=== PATIENT | female | born 1960 | race African-American/Black ===

== ENCOUNTER 2022-04-08 14:48 | Emergency (ER) | payer OTHER ==
--- OUTSIDE RECORDS SUMMARY | 2022-04-08 14:54 | XMS REPORT | Continuity of Care Document ---
:1960 Author Organization [facility] t Address [address] [place] [address] Care Team Providers Name Role Phone Eduardo-Mbayo_A_AH Attending Clinician Unavailable Eduardo-Mbayo_A_AH Admitting Clinician Unavailable Payers Payer Name Policy Type Policy Number Effective Date Expiration Date S [facility] [id number] (MEDICARE 00:00:00 REPLACEMENT HMO) WELLCARE OF ID - [id number] 2019 [facility] (MEDICARE 00:00:00 REPLACEMENT/[employer] GE - HMO) Problems This patient has no known problems. Allergies, Adverse Reactions, Alerts Allergy Allergy Status Severity Reaction(s) Onset Inactive Treating Comm ents Source Name Type Date Date Clinician No Known DA Active [facility]ie 06-11 [place] 00:00: [address] No Known DA Active [facility] Drug 06-02 [place] 00:00: [address] No Known DA Active [facility] Contrast 05-28 [place]ergie 00:00: [address] No Known DA Active [facility] Drug 05-28 [place]ergie 00:00: [address] No Known DA Active [facility] Food 05-28 [place] Allergie 00:00: [address] No Known DA Active [facility] Other 05-28 [place] Allerg[place] 00:00: [address] Medications This patient has no known medications. Procedures This patient has no known procedures. Encounters Start End Encounter Admission Attending Care Care Encounter Source Date/Time Date/Time Type Type Clinicians Facility Department ID 2019-10-23 Inpatient U [facility] MED 9332 [facility]ria 02:27:00 [facility] l 2021-05-20 2021-05-20 Outpatient DMG DMG [id number] [facility] 11:00:00 11:00:00 0626 Medica l Group 2020-01-13 2020-01-13 Outpatient Eduardo-Mbayo VFP [facility] 07:13:00 07:13:00 _A_AH [id number] Family Practic e 2020-01-13 2020-01-13 Outpatient Eduardo-Mbayo VFP P [facility] 07:13:00 07:13:00 _A_AH 36260 Family Practic e 2020-01-13 2020-01-13 Outpatient Eduardo-Mbayo [facility]FP [facility] 07:13:00 07:13:00 _A_AH 56544 Family Practic e Results Test Description Test Time Test Comments Results Result Comments Source GLUCOSE BEDSIDE TESTING 2019-08-03 11:48:00 Test Item Value Reference Range Interpretation Comme nts GLUCOSE BEDSIDE TESTING (test code = GLUBED) 175 MG/DL 60-99 H BASIC METABOLIC [id number] 07:36:00 Test Item Value Reference Range Interpretation Comments SODIUM (test code = 135 MMOL/L 137-145 L NA) POTASSIUM (test code = 4.7 MMOL/L 3.5-5.1 N K) CHLORIDE (test code = 102 MMOL/L 98-107 N CL) CARBON DIOXIDE (test 26 MMOL/L 22-30 N code = CO2) ANION GAP (test code = 12 MMOL/L 14-24 L GAP) GLUCOSE (test code = 188 MG/DL 74-106 H GLU) BLOOD UREA NITROGEN 45 MG/DL 7-17 H (test code = BUN) GLOMERULAR FILTRATION 11 Report ing units: RATE (test code = GFR) ml/mi n/1.73 m2 (Modified MDRD Formula)Referen ce Range: > or = 6 0 ml/min/1.73 m2 CREATININE (test code 4.90 MG/DL 0.52-1.04 H = CREAT) CALCIUM (test code = 8.8 MG/DL 8.4-10.2 N CA) CBC W/AUTO [id number] 07:01:00 Test Item Value Reference Range Interpretation Comments WHITE BLOOD CELL (test code = 9.2 K/MM3 3.8-9.8 N WBC) RED BLOOD CELL (test code = 3.01 M/MM3 3.58-4.97 L RBC) HEMOGLOBIN (test code = HGB) 7.8 G/DL 11.2-14.9 L HEMATOCRIT (test code = HCT) 26.0 % 33.2-43.5 L MEAN CELL VOLUME (test code = 86 fL 80.7-99.1 N MCV) MEAN CELL HGB (test code = MCH) 25.9 pg 27.0-34.1 L MEAN CELL HGB CONCETRATION 30.0 % 32.2-35.7 L (test code = MCHC) RED CELL DISTRIBUTION WIDTH 13.9 % 12.1-15.2 N (test code = RDW) PLATELET COUNT (test code = 265 K/MM3 129-368 N PLT) MEAN PLATELET VOLUME (test code 10.5 fl 7.4-10.4 H = MPV) NEUTROPHIL % (test code = NT%) 64.7 % 43-75 N IMMATURE GRANULOCYTE % (test 0.2 % 0.0-2.0 N code = IG%) LYMPHOCYTE % (test code = LY%) 23.3 % 14-44 N MONOCYTE % (test code = MO%) 10.2 % 4-13 N EOSINOPHIL % (test code = EO%) 1.4 % 0-6 N BASOPHIL % (test code = BA%) 0.2 % 0-2 N NUCLEATED RBC % (test code = 0.0 % 0-1.0 N NRBC%) NEUTROPHIL # (test code = NT#) 5.95 K/mm3 2.0-7.6 N IMMATURE GRANULOCYTE # (test 0.02 x10 3/uL 0-0.03 N code = IG#) LYMPHOCYTE # (test code = LY#) 2.14 K/mm3 1.0-3.8 N MONOCYTE # (test code = MO#) 0.94 K/mm3 0.1-0.8 H EOSINOPHIL # (test code = EO#) 0.13 K/mm3 0.0-0.2 N BASOPHIL # (test code = BA#) 0.02 K/mm3 0.0-0.2 N NUCLEATED RBC # (test code = 0.00 K/mm3 0.0-0.1 N NRBC#) GLUCOSE BEDSIDE [id number] 06:05:00 Test Item Value Reference Range Interpretation Comments GLUCOSE BEDSIDE TESTING (test code 175 MG/DL 60-99 H = GLUBED) GLUCOSE BEDSIDE [id number] 21:34:00 Test Item Value Reference Range Interpretation Comments GLUCOSE BEDSIDE TESTING (test code 274 MG/DL 60-99 H = GLUBED) GLUCOSE BEDSIDE [id number] 16:05:00 Test Item Value Reference Range Interpretation Comments GLUCOSE BEDSIDE TESTING (test code 186 MG/DL 60-99 H = GLUBED) GLUCOSE BEDSIDE [id number] 11:29:00 Test Item Value Reference Range Interpretation Comments GLUCOSE BEDSIDE TESTING (test code 347 MG/DL 60-99 HH = GLUBED) GLUCOSE BEDSIDE [id number] 07:59:00 Test Item Value Reference Range Interpretation Comments GLUCOSE BEDSIDE TESTING (test code 325 MG/DL 60-99 HH = GLUBED) BASIC METABOLIC [id number] 05:42:00 Test Item Value Reference Range Interpretation Comments SODIUM (test code = 133 MMOL/L 137-145 L NA) POTASSIUM (test code = 4.7 MMOL/L 3.5-5.1 N K) CHLORIDE (test code = 101 MMOL/L 98-107 N CL) CARBON DIOXIDE (test 25 MMOL/L 22-30 N code = CO2) ANION GAP (test code = 12 MMOL/L 14-24 L GAP) GLUCOSE (test code = 251 MG/DL 74-106 H GLU) BLOOD UREA NITROGEN 35 MG/DL 7-17 H (test code = BUN) GLOMERULAR FILTRATION 15 Report ing units: RATE (test code = GFR) ml/mi n/1.73 m2 (Modified MDRD Formula)Referen ce Range: > or = 6 0 ml/min/1.73 m2 CREATININE (test code 3.80 MG/DL 0.52-1.04 H = CREAT) CALCIUM (test code = 8.8 MG/DL 8.4-10.2 N CA) CBC W/AUTO [id number] 05:16:00 Test Item Value Reference Range Interpretation Comments WHITE BLOOD CELL (test code = 10.3 K/MM3 3.8-9.8 H WBC) RED BLOOD CELL (test code = 2.99 M/MM3 3.58-4.97 L RBC) HEMOGLOBIN (test code = HGB) 7.6 G/DL 11.2-14.9 L HEMATOCRIT (test code = HCT) 26.0 % 33.2-43.5 L MEAN CELL VOLUME (test code = 87 fL 80.7-99.1 N MCV) MEAN CELL HGB (test code = MCH) 25.4 pg 27.0-34.1 L MEAN CELL HGB CONCETRATION 29.2 % 32.2-35.7 L (test code = MCHC) RED CELL DISTRIBUTION WIDTH 13.6 % 12.1-15.2 N (test code = RDW) PLATELET COUNT (test code = 254 K/MM3 129-368 N PLT) MEAN PLATELET VOLUME (test code 10.7 fl 7.4-10.4 H = MPV) NEUTROPHIL % (test code = NT%) 70.9 % 43-75 N IMMATURE GRANULOCYTE % (test 0.6 % 0.0-2.0 N code = IG%) LYMPHOCYTE % (test code = LY%) 18.4 % 14-44 N MONOCYTE % (test code = MO%) 9.1 % 4-13 N EOSINOPHIL % (test code = EO%) 0.7 % 0-6 N BASOPHIL % (test code = BA%) 0.3 % 0-2 N NUCLEATED RBC % (test code = 0.0 % 0-1.0 N NRBC%) NEUTROPHIL # (test code = NT#) 7.27 K/mm3 2.0-7.6 N IMMATURE GRANULOCYTE # (test 0.06 x10 3/uL 0-0.03 H code = IG#) LYMPHOCYTE # (test code = LY#) 1.89 K/mm3 1.0-3.8 N MONOCYTE # (test code = MO#) 0.93 K/mm3 0.1-0.8 H EOSINOPHIL # (test code = EO#) 0.07 K/mm3 0.0-0.2 N BASOPHIL # (test code = BA#) 0.03 K/mm3 0.0-0.2 N NUCLEATED RBC # (test code = 0.00 K/mm3 0.0-0.1 N NRBC#) GLUCOSE BEDSIDE [id number] 20:28:00 Test Item Value Reference Range Interpretation Comments GLUCOSE BEDSIDE TESTING (test code 253 MG/DL 60-99 H = GLUBED) GLUCOSE BEDSIDE [id number] 16:21:00 Test Item Value Reference Range Interpretation Comments GLUCOSE BEDSIDE TESTING (test code 237 MG/DL 60-99 H = GLUBED) GLUCOSE BEDSIDE [id number] 11:29:00 Test Item Value Reference Range Interpretation Comments GLUCOSE BEDSIDE TESTING (test code 187 MG/DL 60-99 H = GLUBED) GLUCOSE BEDSIDE [id number] 11:03:00 Test Item Value Reference Range Interpretation Comments GLUCOSE BEDSIDE TESTING (test code 202 MG/DL 60-99 H = GLUBED) GLUCOSE BEDSIDE [id number] 20:30:00 Test Item Value Reference Range Interpretation Comments GLUCOSE BEDSIDE TESTING (test code 142 MG/DL 60-99 H = GLUBED) GLUCOSE BEDSIDE [id number] 16:07:00 Test Item Value Reference Range Interpretation Comments GLUCOSE BEDSIDE TESTING (test code 368 MG/DL 60-99 HH = GLUBED) GLUCOSE BEDSIDE [id number] 16:07:00 Test Item Value Reference Range Interpretation Comments GLUCOSE BEDSIDE TESTING (test code 361 MG/DL 60-99 HH = GLUBED) GLUCOSE BEDSIDE [id number] 09:03:00 Test Item Value Reference Range Interpretation Comments GLUCOSE BEDSIDE TESTING (test code 211 MG/DL 60-99 H = GLUBED) GLUCOSE BEDSIDE [id number] 08:30:00 Test Item Value Reference Range Interpretation Comments GLUCOSE BEDSIDE TESTING (test code 199 MG/DL 60-99 H = GLUBED) GLUCOSE BEDSIDE [id number] 08:03:00 Test Item Value Reference Range Interpretation Comments GLUCOSE BEDSIDE TESTING (test code 190 MG/DL 60-99 H = GLUBED) GLUCOSE BEDSIDE [id number] 20:23:00 Test Item Value Reference Range Interpretation Comments GLUCOSE BEDSIDE TESTING (test code 222 MG/DL 60-99 H = GLUBED) GLUCOSE BEDSIDE [id number] 12:52:00 Test Item Value Reference Range Interpretation Comments GLUCOSE BEDSIDE TESTING (test code 204 MG/DL 60-99 H = GLUBED) GLUCOSE BEDSIDE [id number] 07:54:00 Test Item Value Reference Range Interpretation Comments GLUCOSE BEDSIDE TESTING (test code 186 MG/DL 60-99 H = GLUBED) ALLIE [id number] 07:32:00 Test Item Value Reference Range Interpretation Comments ALLIE DIRECT (test code Negative () = ANADIR) Neg ative <1:80 Borderline 1:8 0 Positive >1:80Performed At: HD [facility] [address], [place] [id number] davian Leach MD Ph:[phone] AB HEPATITIS B [id number] 07:32:00 Test Item Value Reference Range Interpretation Comments AB HEPATITIS B POSITIVE SURFACE (test code = HBSAB) CLINICAL INTERP RETATION OF IMMUNE STATUS *NEGATIVE: Inconsistent wi th immunity to HBV infection, less than 5.0 mIU/mL POSITIVE: Consistent with immunity to HBV infectio n, greater than 1 0.0 mIU/mL AB HEPATITIS B [id number] 07:32:00 Test Item Value Reference Range Interpretation Comments AB HEPATITIS B CORE (test code = POSITIVE NONREACTIVE HBCAB) AB HEPATITIS C [id number] 07:32:00 Test Item Value Reference Range Interpretation Comments AB HEPATITIS C (test code = HCVAB) NEGATIVE NONREACTIVE AB DNA DOUBLE [id number] 07:32:00 Test Item Value Reference Range Interpretation Comments AB DNA DOUBLE STRAND 1 IU/mL 0-9 (test code = DNADSAB) Negative <5 Equ ivocal 5 - 9 Po sitive >9Performed A t: HD [facility] [id number] [place], [place] [id number] paige Leach MD Ph:[phone] COMPLEMENT [id number] 07:32:00 Test Item Value Reference Range Interpretation Comments COMPLEMENT C3 (test 131 mg/dL 82-167 Performe d At: HD code = COMC3) [facility] [address] [place], [place] [id number] Kyle L MD Ph:[phone] COMPLEMENT [id number] 07:32:00 Test Item Value Reference Range Interpretation Comments COMPLEMENT C4 (test code = COMC4) 35 mg/dL 14-44 BASIC METABOLIC [id number] 05:09:00 Test Item Value Reference Range Interpretation Comments SODIUM (test code = 136 MMOL/L 137-145 L NA) POTASSIUM (test code = 4.4 MMOL/L 3.5-5.1 N K) CHLORIDE (test code = 103 MMOL/L 98-107 N CL) CARBON DIOXIDE (test 30 MMOL/L 22-30 N code = CO2) ANION GAP (test code = 7 MMOL/L 14-24 L GAP) GLUCOSE (test code = 169 MG/DL 74-106 H GLU) BLOOD UREA NITROGEN 23 MG/DL 7-17 H (test code = BUN) GLOMERULAR FILTRATION 19 Report ing units: RATE (test code = GFR) ml/mi n/1.73 m2 (Modified MDRD Formula)Referen ce Range: > or = 6 0 ml/min/1.73 m2 CREATININE (test code 3.00 MG/DL 0.52-1.04 H = CREAT) CALCIUM (test code = 8.6 MG/DL 8.4-10.2 N CA) CBC W/AUTO [id number] 04:50:00 Test Item Value Reference Range Interpretation Comments WHITE BLOOD CELL (test code = 7.4 K/MM3 3.8-9.8 N WBC) RED BLOOD CELL (test code = 3.00 M/MM3 3.58-4.97 L RBC) HEMOGLOBIN (test code = HGB) 7.8 G/DL 11.2-14.9 L HEMATOCRIT (test code = HCT) 25.0 % 33.2-43.5 L MEAN CELL VOLUME (test code = 83 fL 80.7-99.1 N MCV) MEAN CELL HGB (test code = MCH) 26.0 pg 27.0-34.1 L MEAN CELL HGB CONCETRATION 31.2 % 32.2-35.7 L (test code = MCHC) RED CELL DISTRIBUTION WIDTH 13.7 % 12.1-15.2 N (test code = RDW) PLATELET COUNT (test code = 264 K/MM3 129-368 N PLT) MEAN PLATELET VOLUME (test code 10.4 fl 7.4-10.4 N = MPV) NEUTROPHIL % (test code = NT%) 53.3 % 43-75 N IMMATURE GRANULOCYTE % (test 0.4 % 0.0-2.0 N code = IG%) LYMPHOCYTE % (test code = LY%) 32.5 % 14-44 N MONOCYTE % (test code = MO%) 11.7 % 4-13 N EOSINOPHIL % (test code = EO%) 1.6 % 0-6 N BASOPHIL % (test code = BA%) 0.5 % 0-2 N NUCLEATED RBC % (test code = 0.3 % 0-1.0 N NRBC%) NEUTROPHIL # (test code = NT#) 3.93 K/mm3 2.0-7.6 N IMMATURE GRANULOCYTE # (test 0.03 x10 3/uL 0-0.03 N code = IG#) LYMPHOCYTE # (test code = LY#) 2.40 K/mm3 1.0-3.8 N MONOCYTE # (test code = MO#) 0.86 K/mm3 0.1-0.8 H EOSINOPHIL # (test code = EO#) 0.12 K/mm3 0.0-0.2 N BASOPHIL # (test code = BA#) 0.04 K/mm3 0.0-0.2 N NUCLEATED RBC # (test code = 0.02 K/mm3 0.0-0.1 N NRBC#) GLUCOSE BEDSIDE [id number] 22:11:00 Test Item Value Reference Range Interpretation Comments GLUCOSE BEDSIDE TESTING (test code 242 MG/DL 60-99 H = GLUBED) GLUCOSE BEDSIDE [id number] 21:10:00 Test Item Value Reference Range Interpretation Comments GLUCOSE BEDSIDE TESTING (test code 213 MG/DL 60-99 H = GLUBED) GLUCOSE BEDSIDE [id number] 16:23:00 Test Item Value Reference Range Interpretation Comments GLUCOSE BEDSIDE TESTING (test code 164 MG/DL 60-99 H = GLUBED) GLUCOSE BEDSIDE [id number] 12:33:00 Test Item Value Reference Range Interpretation Comments GLUCOSE BEDSIDE TESTING (test code 287 MG/DL 60-99 H = GLUBED) GLUCOSE BEDSIDE [id number] 08:34:00 Test Item Value Reference Range Interpretation Comments GLUCOSE BEDSIDE TESTING (test code 233 MG/DL 60-99 H = GLUBED) - US GUIDANCE VASC [id number] 07:50:00 Patient Name: CITLALY DAVIS Unit No: [id number] EXAMS: CPT CODE: [id number] US GUIDANCE VASC ACCESS [id number] Procedure: Right IJ tunneled, cuffed hemodialysis catheter placement. Location: B2 Clinical Indication: Renal Failure Technique: Written informed consent was obtained. Total fluoroscopy time was 0.3 minutes. Air kerma was 2.9 mGy. All elements of maximum sterile barrier technique were utilized throughout the procedure. Moderate sedation was given using Versed and fentanyl. Intraservice moderate sedation time was 30 minutes. Continuous cardiopulmonary monitoring was performed by the nurse. Ultrasound of the right IJ showed the vessel to be patent and compressible. Using ultrasound guidance, the right IJ was accessed with a 21-gauge needle and 5-Omani micropuncture set. An image was stored for documentation. A 035 wire was passed into the IVC. The subcutaneous tunnel was anesthetized with 1% lidocaine. An exit site incision was made using a # 11 blade. Using a tunneling device, a 23 cm tip to cuff catheter was brought through the tunnel towards the venotomy. Over the wire, the venotomy was dilated and a peel-away sheath placed. The catheter was advanced through the peel-away and tip positioned in the right atrium using fluoroscopic guidance. Peel-away was removed. Catheter was checked for flow and heparinized. Catheter was secured to the skin with Prolene, and a clean dressing applied. Patienttolerated the procedure well. Impression: Successful placement of a right IJ tunneled, cuffed hemodialysis catheter at 0750 Reported and signed by: Ja Cruz M.D. CC: Manny Tucker MD Technologist: Ivanna Wheat, RT(R) Fluoro Time: DAP (Gy m2): Air Kerma (mGy): Trnscrpt: 07/29/2019 (0750) [email or web address] [facility] NAME: CITLALY DAVIS [id number] PHYS: Gerry DELGADO Do, [place] [address] : 1960 AGE: 59 SEX: F LOC: Z.343 A PHONE #: [phone] EXAM DATE: 07/28/2019 STATUS: ADM IN FAX #:[phone] RAD #: D/C DT PAGE 1 Signed Report- FLUORO GUID CLRT ACC [id number] 07:50:00 Patient Name: CITLALY DAVIS Unit No: [id number] EXAMS: CPT CODE: [id number] FLUORO GUID CLRT ACC DEV [id number] Procedure: Right IJ tunneled, cuffed hemodialysis catheter placement. Location: B2 Clinical Indication: Renal Failure Technique: Written informed consent was obtained. Total fluoroscopy time was 0.3 minutes. Air kerma was 2.9 mGy. All elements of maximum sterile barrier technique were utilized throughout the procedure. Moderate sedation was given using Versed and fentanyl. Intraservice moderate sedation time was30 minutes. Continuous cardiopulmonary monitoring was performed by the nurse. Ul trasound of the right IJ showed the vessel to be patent and compressible. Using ultrasound guidance, the right IJ was accessed with a 21-gauge needle and 5-Omani micropuncture set. An image was stored for documentation. A 035 wire was passed into the IVC. The subcuta neous tunnel was anesthetized with 1% lidocaine. An exit site incision was made using a # 11 blade. Using a tunneling device, a 23 cm tip to cuff catheter was brought through the tunnel towards the venotomy. Over the wire, the venotomy was dilated and a peel-away sheath placed. The catheter was advanced through the peel-away and tip positioned in the right atrium using fluoroscopic guidance. Peel-away was removed. Catheter was checked for flow and heparinized. Catheter was secured to the skin with Prolene, and a clean dressing applied. Patienttolerated the procedure well. Impression: Successful placement of a right IJ tunneled, cuffed hemodialysis catheter at 0750 Reported and signed by: Ja Cruz M.D. CC: Manny Tucker MD Technologist: Ivanna Wheat, RT(R) Fluoro Time: DAP (Gy m2): Air Kerma (mGy): Trnscrpt: 07/29/2019 (0750) t.[email or web address].[email or web address] [facility] NAME: CITLALY DAVIS [id number] PHYS: Gerry DELGADO Do, [place] [address] : 1960 AGE: 59 SEX: F LOC: Z.343 A PHONE #: [phone] EXAM DATE: 07/28/2019 STATUS: ADM IN FAX #:[phone] RAD #: D/C DT PAGE 1 Signed ReportUR CREATININE CLEARANCE [id number] 07:24:00 Test Item Value Reference Range Interpretation Comments CREATININE CLEARANCE RESULT (test 9.2 ML/MIN 85-125 L code = CREATCLR) CREATININE (test code = CREAT) 5.30 MG/DL 0.52-1.04 H UR CREATININE RANDOM (test code = 78.8 CREATU) UR CREATININE 24HR (test code = 0.66 GM/DAY 0.60-1.80 N [id number]) UR VOLUME (test code = VOL) 850 ML 800-1800 N SURFACE AREA (test code = SURFAR) 1.64 UR PROTEIN [id number] 07:24:00 Test Item Value Reference Range Interpretation Comments UR TOTAL PROTEIN 428 mg/dL Not Estab. Results con firmed (test code = PROTEU) ondilut ion. UR ALBUMIN % (test 54.2 % () code = ALBEU%) UR [id number]-[id number] % 2.9 % () (test code = A1GU%) UR RAPCS-1-AWQVKVSZ % 10.7 % () (test code = A2GU%) UR BETA GLOBULIN % 14.3 % () (test code = BGU%) UR GAMMA GLOBULIN % 17.9 % () (test code = GGU%) UR PROT Protein ELECTROPHORESIS electrophore sis scan INTERP (test code = will fol low via ELEUINT) computer,mail, or ankle patch molder delivery.Perfor med At: [facility] [place], [place] [id number] Kyle L MD Ph:[phone] rform ed At: [facility] SAMI [place] [id number] h CN MD Ph:[phone] cachorromahendra hernandez reported re alejandra: Edited by: INF CE on 07/28/19:808903 9 1708: UR PRO TELE INT previously reported as: M SPIKE % (test code Not Observed % Not Observed = MSPIKE%) PROTEIN ELECTROPHORESIS [id number] 07:24:00 Test Item Value Reference Range Interpretation Comments TOTAL PROTEIN 6.2 g/dL 6.0-8.5 (test code = PROTE) ALBUMIN (test 2.80 g/dL 2.9-4.4 L code = ALBE) [id number]-[id number] 0.20 g/dL 0.0-0.4 (test code = A1G) PHYRB-7-KWSVCFMQ 0.80 g/dL 0.4-1.0 (test code = A2G) BETA GLOBULIN 1.30 g/dL 0.7-1.3 (test code = BG) GAMMA GLOBULIN 1.00 g/dL 0.4-1.8 (test code = GG) M-SPIKE,SERUM Not Observed Not Observed (test code = g/dL MSPIKES) GLOBULIN ELECT 3.4 g/dL 2.2-3.9 (test code = GLOBE) ALBUMIN/GLOBULIN 0.8 0.7-1.7 RATIO (test code = AGE) PROT.ELECTROPH.I Protein NTERPRETATION electrophoresi s scan (test code = will follow via ELEINT) computer,mail, or ankle patch molder delivery.Perfor med At: HD [facility] [address] [place], [place] [id number] paige Leach MD Ph:[phone] rformed At: DA [facility] [address] SAMI Montoya [id number] h CN MD Ph:[phone] [id number] 07:24:00 Test Item Value Reference Range Interpretation Comments FERRITIN (test code = [place]) 47.8 NG/ML 11.1-264 N BASIC METABOLIC [id number] 05:39:00 Test Item Value Reference Range Interpretation Comments SODIUM (test code = 134 MMOL/L 137-145 L NA) POTASSIUM (test code = 4.1 MMOL/L 3.5-5.1 N K) CHLORIDE (test code = 105 MMOL/L 98-107 N CL) CARBON DIOXIDE (test 30 MMOL/L 22-30 N code = CO2) ANION GAP (test code = 3 MMOL/L 14-24 L GAP) GLUCOSE (test code = 178 MG/DL 74-106 H GLU) BLOOD UREA NITROGEN 39 MG/DL 7-17 H (test code = BUN) GLOMERULAR FILTRATION 14 Report ing units: RATE (test code = GFR) ml/mi n/1.73 m2 (Modified MDRD Formula)Referen ce Range: > or = 6 0 ml/min/1.73 m2 CREATININE (test code 3.90 MG/DL 0.52-1.04 H = CREAT) CALCIUM (test code = 9.2 MG/DL 8.4-10.2 N CA) CBC W/AUTO [id number] 05:07:00 Test Item Value Reference Range Interpretation Comments WHITE BLOOD CELL (test code = 8.1 K/MM3 3.8-9.8 N WBC) RED BLOOD CELL (test code = 3.15 M/MM3 3.58-4.97 L RBC) HEMOGLOBIN (test code = HGB) 8.0 G/DL 11.2-14.9 L HEMATOCRIT (test code = HCT) 25.9 % 33.2-43.5 L MEAN CELL VOLUME (test code = 82 fL 80.7-99.1 N MCV) MEAN CELL HGB (test code = MCH) 25.4 pg 27.0-34.1 L MEAN CELL HGB CONCETRATION 30.9 % 32.2-35.7 L (test code = MCHC) RED CELL DISTRIBUTION WIDTH 13.8 % 12.1-15.2 N (test code = RDW) PLATELET COUNT (test code = 275 K/MM3 129-368 N PLT) MEAN PLATELET VOLUME (test code 10.8 fl 7.4-10.4 H = MPV) NEUTROPHIL % (test code = NT%) 61.8 % 43-75 N IMMATURE GRANULOCYTE % (test 0.5 % 0.0-2.0 N code = IG%) LYMPHOCYTE % (test code = LY%) 25.1 % 14-44 N MONOCYTE % (test code = MO%) 10.6 % 4-13 N EOSINOPHIL % (test code = EO%) 1.4 % 0-6 N BASOPHIL % (test code = BA%) 0.6 % 0-2 N NUCLEATED RBC % (test code = 0.0 % 0-1.0 N NRBC%) NEUTROPHIL # (test code = NT#) 5.04 K/mm3 2.0-7.6 N IMMATURE GRANULOCYTE # (test 0.04 x10 3/uL 0-0.03 H code = IG#) LYMPHOCYTE # (test code = LY#) 2.04 K/mm3 1.0-3.8 N MONOCYTE # (test code = MO#) 0.86 K/mm3 0.1-0.8 H EOSINOPHIL # (test code = EO#) 0.11 K/mm3 0.0-0.2 N BASOPHIL # (test code = BA#) 0.05 K/mm3 0.0-0.2 N NUCLEATED RBC # (test code = 0.00 K/mm3 0.0-0.1 N NRBC#) GLUCOSE BEDSIDE [id number] 21:56:00 Test Item Value Reference Range Interpretation Comments GLUCOSE BEDSIDE TESTING (test code 245 MG/DL 60-99 H = GLUBED) AB HEPATITIS B [id number] 14:17:00 Test Item Value Reference Range Interpretation Comments AB HEPATITIS B POSITIVE SURFACE (test code = HBSAB) CLINICAL INTERP RETATION OF IMMUNE STATUS *NEGATIVE: Inconsistent wi th immunity to HBV infection, less than 5.0 mIU/mL POSITIVE: Consistent with immunity to HBV infectio n, greater than 1 0.0 mIU/mL UNABLE TO DRAW BLOOD, REASON: CBNNOTIFIED PATIENT CARE STAFF: WAI IGNACIO 07/28/19 AT 1233 BY Tomeka Mcdaniels HEPATITIS B [id number] 14:17:00 Test Item Value Reference Range Interpretation Comments AG HEPATITIS B SURFACE (test code = NEGATIVE NONREACTIVE HBSAG) UNABLE TO DRAW BLOOD, REASON: CBNNOTIFIED PATIENT CARE STAFF: WAI IGNACIO 07/28/19 AT 1233 BY Tomeka Mcdaniels HEPATITIS B [id number] 14:17:00 Test Item Value Reference Range Interpretation Comments AB HEPATITIS B CORE (test code = POSITIVE NONREACTIVE HBCAB) UNABLE TO DRAW BLOOD, REASON: CBNNOTIFIED PATIENT CARE STAFF: WAI IGNACIO 07/28/19 AT 1233 BY Tomeka Mcdaniels HEPATITIS C [id number] 14:17:00 Test Item Value Reference Range Interpretation Comments AB HEPATITIS C (test code = HCVAB) NEGATIVE NONREACTIVE UNABLE TO DRAW BLOOD, REASON: CBNNOTIFIED PATIENT CARE STAFF: WAI IGNACIO 07/28/19 AT 1233 BY Tomeka Mcdaniels HEPATITIS B [id number] 13:58:00 Test Item Value Reference Range Interpretation Comments AB HEPATITIS B SURFACE (test code = HBSAB) UNABLE TO DRAW BLOOD, REASON: CBNNOTIFIED PATIENT CARE STAFF: WAI IGNACIO 07/28/19 AT 1233 BY Tomeka Mcdaniels HEPATITIS B [id number] 13:58:00 Test Item Value Reference Range Interpretation Comments AG HEPATITIS B SURFACE (test code = NEGATIVE NONREACTIVE HBSAG) UNABLE TO DRAW BLOOD, REASON: CBNNOTIFIED PATIENT CARE STAFF: WAI IGNACIO 07/28/19 AT 1233 BY Tomeka Mcdaniels HEPATITIS B [id number] 13:58:00 Test Item Value Reference Range Interpretation Comments AB HEPATITIS B CORE (test code = HBCAB) NONREACTIVE UNABLE TO DRAW BLOOD, REASON: CBNNOTIFIED PATIENT CARE STAFF: WAI IGNACIO 07/28/19 AT 1233 BY Tomeka Mcdaniels HEPATITIS C [id number] 13:58:00 Test Item Value Reference Range Interpretation Comments AB HEPATITIS C (test code = HCVAB) NONREACTIVE UNABLE TO DRAW BLOOD, REASON: CBNNOTIFIED PATIENT CARE STAFF: WAI IGNACIO 07/28/19 AT 1233 BY Tomeka McdanielsnPROTHROMBIN [id number] 13:00:00 Test Item Value Reference Range Interpretation Comments PROTHROMBIN TIME 10.0 SECONDS 9.6-11.6 N PATIENT (test code = PTP) INTERNATIONAL NORMAL 0.9 0.8-1.1 N The INR is to be RATIO (test code = used only for INR) monitoring oral anticoagulantth erap y. INDICATION I NR VALUE ---- ---- ---- -------1. Prophylaxis, de ep venous thrombos is, including hig h risk surgery. 2.0 - 3.0 2. Prophylaxis, de ep venous thrombos is, hip surgery, treatment for d eep venous thrombosis or pulmonary prevention of systemic emboli sm in patients wit h valvular heart disease, atrial fibrillation, tissue heart va lve, or acute myocar dial infarction. 2.0 - 3 .0 3. Mechanical prosthesis hear t valves, recurrent syste noe embolism. 3.0 - 4.5 Comments to Heel Scourer: NONEUNABLE TO DRAW BLOOD, REASON: CBNNOTIFIED PATIENT CARE STAFF: WAI IGNACIO 07/28/19 AT 1234 BY Tomeka McdanielsnGLUCOSE BEDSIDE [id number] 11:57:00 Test Item Value Reference Range Interpretation Comments GLUCOSE BEDSIDE TESTING (test code 203 MG/DL 60-99 H = GLUBED) GLUCOSE BEDSIDE [id number] 10:09:00 Test Item Value Reference Range Interpretation Comments GLUCOSE BEDSIDE TESTING (test code 182 MG/DL 60-99 H = GLUBED) BASIC METABOLIC [id number] 04:51:00 Test Item Value Reference Range Interpretation Comments SODIUM (test code = 137 MMOL/L 137-145 N NA) POTASSIUM (test code = 4.7 MMOL/L 3.5-5.1 N K) CHLORIDE (test code = 112 MMOL/L 98-107 H CL) CARBON DIOXIDE (test 19 MMOL/L 22-30 L code = CO2) ANION GAP (test code = 11 MMOL/L 14-24 L GAP) GLUCOSE (test code = 158 MG/DL 74-106 H GLU) BLOOD UREA NITROGEN 57 MG/DL 7-17 H (test code = BUN) GLOMERULAR FILTRATION 11 Report ing units: RATE (test code = GFR) ml/mi n/1.73 m2 (Modified MDRD Formula)Referen ce Range: > or = 6 0 ml/min/1.73 m2 CREATININE (test code 4.80 MG/DL 0.52-1.04 H = CREAT) CALCIUM (test code = 8.9 MG/DL 8.4-10.2 N CA) CBC W/AUTO [id number] 04:30:00 Test Item Value Reference Range Interpretation Comments WHITE BLOOD CELL (test code = 8.8 K/MM3 3.8-9.8 N WBC) RED BLOOD CELL (test code = 3.22 M/MM3 3.58-4.97 L RBC) HEMOGLOBIN (test code = HGB) 8.3 G/DL 11.2-14.9 L HEMATOCRIT (test code = HCT) 27.5 % 33.2-43.5 L MEAN CELL VOLUME (test code = 85 fL 80.7-99.1 N MCV) MEAN CELL HGB (test code = MCH) 25.8 pg 27.0-34.1 L MEAN CELL HGB CONCETRATION 30.2 % 32.2-35.7 L (test code = MCHC) RED CELL DISTRIBUTION WIDTH 13.9 % 12.1-15.2 N (test code = RDW) PLATELET COUNT (test code = 269 K/MM3 129-368 N PLT) MEAN PLATELET VOLUME (test code 10.0 fl 7.4-10.4 N = MPV) NEUTROPHIL % (test code = NT%) 58.9 % 43-75 N IMMATURE GRANULOCYTE % (test 0.5 % 0.0-2.0 N code = IG%) LYMPHOCYTE % (test code = LY%) 26.8 % 14-44 N MONOCYTE % (test code = MO%) 11.3 % 4-13 N EOSINOPHIL % (test code = EO%) 1.8 % 0-6 N BASOPHIL % (test code = BA%) 0.7 % 0-2 N NUCLEATED RBC % (test code = 0.0 % 0-1.0 N NRBC%) NEUTROPHIL # (test code = NT#) 5.18 K/mm3 2.0-7.6 N IMMATURE GRANULOCYTE # (test 0.04 x10 3/uL 0-0.03 H code = IG#) LYMPHOCYTE # (test code = LY#) 2.36 K/mm3 1.0-3.8 N MONOCYTE # (test code = MO#) 0.99 K/mm3 0.1-0.8 H EOSINOPHIL # (test code = EO#) 0.16 K/mm3 0.0-0.2 N BASOPHIL # (test code = BA#) 0.06 K/mm3 0.0-0.2 N NUCLEATED RBC # (test code = 0.00 K/mm3 0.0-0.1 N NRBC#) GLUCOSE BEDSIDE [id number] 01:07:00 Test Item Value Reference Range Interpretation Comments GLUCOSE BEDSIDE TESTING (test code 251 MG/DL 60-99 H = GLUBED) GLUCOSE BEDSIDE [id number] 21:56:00 Test Item Value Reference Range Interpretation Comments GLUCOSE BEDSIDE TESTING (test code 192 MG/DL 60-99 H = GLUBED) HEPATITIS B SURF AB, [id number] 18:50:00 Test Item Value Reference Range Interpretation Comments HEPATITIS B SURF > 1000.0 ~~~~~~~~~~~ ~~~~~~~~~~~ AB, QUANT (test mIU/mL ~~~~~~~~~~~~ ~~~~~~~~~~ code = HBSABQ) ~~~~~~~~~~~~~ ~~~INTERP RETIVE DATA: <5 .00 mIU/mL : Negat gianna - Patient is cons idered to be notimmune to infection with HBV. >= 5.00 mIU/mL and <12.0 mIU/mL: Indeter minate - Unable todete rmine if anti-HBs is present at levels consi stent withimmunity. Patient's immun e status should b e further assesse dby considering oth er clinical inform ation or retestingano ther specimen drawn at a later time. >=1 2.0 mIU/mL: Positiv e - Anti-HBs detect ed at >10 mIU/mL.Ruth Ann ent is considered to b e immune to infec tion with HBV. Ithas not been determined what the clinical significance is for values greater than >=12 mIU/mL, ot her than theindivid ual is considered to b e immune to HBV infection.~~~~~ ~~~~~~~ ~~~~~~~~~~~~~~~ ~~~~~~~ ~~~~~~~~~~~~~~~ ~~~~~~~ ~~~~ GLUCOSE BEDSIDE [id number] 16:17:00 Test Item Value Reference Range Interpretation Comments GLUCOSE BEDSIDE TESTING (test code 205 MG/DL 60-99 H = GLUBED) GLUCOSE BEDSIDE [id number] 12:44:00 Test Item Value Reference Range Interpretation Comments GLUCOSE BEDSIDE TESTING (test code 274 MG/DL 60-99 H = GLUBED) ALLIE [id number] 11:08:00 Test Item Value Reference Range Interpretation Comments ALLIE DIRECT (test code = ANADIR) NEGATIVE AB HEPATITIS B [id number] 11:08:00 Test Item Value Reference Range Interpretation Comments AB HEPATITIS B POSITIVE SURFACE (test code = HBSAB) CLINICAL INTERP RETATION OF IMMUNE STATUS *NEGATIVE: Inconsistent wi th immunity to HBV infection, less than 5.0 mIU/mL POSITIVE: Consistent with immunity to HBV infectio n, greater than 1 0.0 mIU/mL AB HEPATITIS B [id number] 11:08:00 Test Item Value Reference Range Interpretation Comments AB HEPATITIS B CORE (test code = POSITIVE NONREACTIVE HBCAB) AB HEPATITIS C [id number] 11:08:00 Test Item Value Reference Range Interpretation Comments AB HEPATITIS C (test code = HCVAB) NEGATIVE NONREACTIVE AB DNA DOUBLE [id number] 11:08:00 Test Item Value Reference Range Interpretation Comments AB DNA DOUBLE STRAND (test code = IU/ml 0-9 DNADSAB) COMPLEMENT [id number] 11:08:00 Test Item Value Reference Range Interpretation Comments COMPLEMENT C3 (test 131 mg/dL 82-167 Performe d At: HD code = COMC3) [facility] [id number] [place], [place] [id number] Vinicio Leach MD Ph:[phone] COMPLEMENT [id number] 11:08:00 Test Item Value Reference Range Interpretation Comments COMPLEMENT C4 (test code = COMC4) 35 mg/dL 14-44 GLUCOSE BEDSIDE [id number] 08:24:00 Test Item Value Reference Range Interpretation Comments GLUCOSE BEDSIDE TESTING (test code 198 MG/DL 60-99 H = GLUBED) GLUCOSE BEDSIDE [id number] 20:14:00 Test Item Value Reference Range Interpretation Comments GLUCOSE BEDSIDE TESTING (test code 246 MG/DL 60-99 H = GLUBED) UR PROTEIN [id number] 14:32:00 Test Item Value Reference Range Interpretation Comments UR PROTEIN RANDOM (test code 629 MG/DL 0-11.9 H = PROTU) UR PROTEIN 24HR (test code = 5346.50 MG/24HRS 0.0-200.0 H [id number]) UR VOLUME (test code = VOL) 850 ML 800-1800 N GLUCOSE BEDSIDE [id number] 14:28:00 Test Item Value Reference Range Interpretation Comments GLUCOSE BEDSIDE TESTING (test code 230 MG/DL 60-99 H = GLUBED) GLUCOSE BEDSIDE [id number] 14:28:00 Test Item Value Reference Range Interpretation Comments GLUCOSE BEDSIDE TESTING (test code 240 MG/DL 60-99 H = GLUBED) UR CREATININE CLEARANCE [id number] 14:02:00 Test Item Value Reference Range Interpretation Comments CREATININE CLEARANCE RESULT (test 9.2 ML/MIN 85-125 L code = CREATCLR) CREATININE (test code = CREAT) 5.30 MG/DL 0.52-1.04 H UR CREATININE RANDOM (test code = 78.8 CREATU) UR CREATININE 24HR (test code = 0.66 GM/DAY 0.60-1.80 N [id number]) UR VOLUME (test code = VOL) 850 ML 800-1800 N SURFACE AREA (test code = SURFAR) 1.64 UR PROTEIN [id number] 14:02:00 Test Item Value Reference Range Interpretation Comments UR TOTAL PROTEIN (test code = PROTEU) MG/DL 0-149 UR ALBUMIN % (test code = ALBEU%) % UR [id number]-2-QBAFRLDG % (test code = % A1GU%) UR YNXCI-2-LBPVUZQH % (test code = % A2GU%) UR BETA GLOBULIN % (test code = BGU%) % UR GAMMA GLOBULIN % (test code = GGU%) % M SPIKE % (test code = MSPIKE%) % UR PROTEIN [id number] 14:01:00 Test Item Value Reference Range Interpretation Comments UR PROTEIN RANDOM (test code = MG/DL 0-11.9 PROTU) UR PROTEIN 24HR (test code = MG/24HRS 0.0-200.0 [id number]) UR VOLUME (test code = VOL) 850 ML 800-1800 N UR CREATININE CLEARANCE [id number] 13:57:00 Test Item Value Reference Range Interpretation Comments CREATININE CLEARANCE RESULT (test ML/MIN 85-125 code = CREATCLR) CREATININE (test code = CREAT) 5.30 MG/DL 0.52-1.04 H UR CREATININE RANDOM (test code = CREATU) UR CREATININE 24HR (test code = GM/DAY 0.60-1.80 [id number]) UR VOLUME (test code = VOL) 850 ML 800-1800 N SURFACE AREA (test code = SURFAR) 1.64 UR PROTEIN [id number] 13:57:00 Test Item Value Reference Range Interpretation Comments UR TOTAL PROTEIN (test code = PROTEU) MG/DL 0-149 UR ALBUMIN % (test code = ALBEU%) % UR [id number]-7-JSOPGIHS % (test code = % A1GU%) UR [id number]-9-VMXSZEEJ % (test code = % A2GU%) UR BETA GLOBULIN % (test code = BGU%) % UR GAMMA GLOBULIN % (test code = GGU%) % M SPIKE % (test code = MSPIKE%) % UR CREATININE CLEARANCE [id number] 13:56:00 Test Item Value Reference Range Interpretation Comments CREATININE CLEARANCE RESULT (test ML/MIN 85-125 code = CREATCLR) CREATININE (test code = CREAT) MG/DL 0.52-1.04 UR CREATININE RANDOM (test code = CREATU) UR CREATININE 24HR (test code = GM/DAY 0.60-1.80 [id number]) UR VOLUME (test code = VOL) ML 800-1800 SURFACE AREA (test code = SURFAR) 1.64 UR PROTEIN [id number] 13:56:00 Test Item Value Reference Range Interpretation Comments UR TOTAL PROTEIN (test code = PROTEU) MG/DL 0-149 UR ALBUMIN % (test code = ALBEU%) % UR GBBAT-5-BBFWUGGA % (test code = % A1GU%) UR [id number] % (test code = % A2GU%) UR BETA GLOBULIN % (test code = BGU%) % UR GAMMA GLOBULIN % (test code = GGU%) % M SPIKE % (test code = MSPIKE%) % GLUCOSE BEDSIDE [id number] 08:53:00 Test Item Value Reference Range Interpretation Comments GLUCOSE BEDSIDE TESTING (test code 168 MG/DL 60-99 H = GLUBED) B-TYPE NATRIURETIC [id number] 06:21:00 Test Item Value Reference Range Interpretation Comments B-TYPE NATRIURETIC PEPTIDE (test 843.0 PG/ML 0-100 H code = BNP) COMPREHENSIVE METABOLIC [id number] 06:08:00 Test Item Value Reference Range Interpretation Comments SODIUM (test code = 140 MMOL/L 137-145 N NA) POTASSIUM (test code = 5.1 MMOL/L 3.5-5.1 N K) CHLORIDE (test code = 115 MMOL/L 98-107 H CL) CARBON DIOXIDE (test 16 MMOL/L 22-30 L code = CO2) ANION GAP (test code = 14 MMOL/L 14-24 N GAP) GLUCOSE (test code = 167 MG/DL 74-106 H GLU) BLOOD UREA NITROGEN 62 MG/DL 7-17 H (test code = BUN) GLOMERULAR FILTRATION 10 Report ing units: RATE (test code = GFR) ml/mi n/1.73 m2 (Modified MDRD Formula)Referen ce Range: > or = 6 0 ml/min/1.73 m2 CREATININE (test code 5.30 MG/DL 0.52-1.04 H = CREAT) TOTAL PROTEIN (test 6.8 G/DL 6.3-8.2 N code = PROT) ALBUMIN (test code = 3.3 G/DL 3.5-5.0 L ALB) CALCIUM (test code = 8.7 MG/DL 8.4-10.2 N CA) BILIRUBIN TOTAL (test 0.3 MG/DL 0.2-1.3 N code = BILT) SGOT/AST (test code = 18 UNITS/L 14-36 N AST) SGPT/ALT (test code = 20 UNITS/L 9-52 N ALT) ALKALINE PHOSPHATASE 137 UNITS/L 38-126 H (test code = ALKP) [id number] 06:08:00 Test Item Value Reference Range Interpretation Comments PHOSPHOROUS (test code = PHOS) 5.7 MG/DL 2.5-4.5 H [id number] 06:08:00 Test Item Value Reference Range Interpretation Comments MAGNESIUM (test code = MAG) 2.1 MG/DL 1.6-2.3 N CBC W/AUTO [id number] 05:42:00 Test Item Value Reference Range Interpretation Comments WHITE BLOOD CELL (test code = 6.3 K/MM3 3.8-9.8 N WBC) RED BLOOD CELL (test code = 3.19 M/MM3 3.58-4.97 L RBC) HEMOGLOBIN (test code = HGB) 8.2 G/DL 11.2-14.9 L HEMATOCRIT (test code = HCT) 27.3 % 33.2-43.5 L MEAN CELL VOLUME (test code = 86 fL 80.7-99.1 N MCV) MEAN CELL HGB (test code = MCH) 25.7 pg 27.0-34.1 L MEAN CELL HGB CONCETRATION 30.0 % 32.2-35.7 L (test code = MCHC) RED CELL DISTRIBUTION WIDTH 14.0 % 12.1-15.2 N (test code = RDW) PLATELET COUNT (test code = 287 K/MM3 129-368 N PLT) MEAN PLATELET VOLUME (test code 11.0 fl 7.4-10.4 H = MPV) NEUTROPHIL % (test code = NT%) 78.5 % 43-75 H IMMATURE GRANULOCYTE % (test 0.5 % 0.0-2.0 N code = IG%) LYMPHOCYTE % (test code = LY%) 12.7 % 14-44 L MONOCYTE % (test code = MO%) 7.9 % 4-13 N EOSINOPHIL % (test code = EO%) 0.2 % 0-6 N BASOPHIL % (test code = BA%) 0.2 % 0-2 N NUCLEATED RBC % (test code = 0.0 % 0-1.0 N NRBC%) NEUTROPHIL # (test code = NT#) 4.97 K/mm3 2.0-7.6 N IMMATURE GRANULOCYTE # (test 0.03 x10 3/uL 0-0.03 N code = IG#) LYMPHOCYTE # (test code = LY#) 0.80 K/mm3 1.0-3.8 L MONOCYTE # (test code = MO#) 0.50 K/mm3 0.1-0.8 N EOSINOPHIL # (test code = EO#) 0.01 K/mm3 0.0-0.2 N BASOPHIL # (test code = BA#) 0.01 K/mm3 0.0-0.2 N NUCLEATED RBC # (test code = 0.00 K/mm3 0.0-0.1 N NRBC#) GLUCOSE BEDSIDE [id number] 20:08:00 Test Item Value Reference Range Interpretation Comments GLUCOSE BEDSIDE TESTING (test code 132 MG/DL 60-99 H = GLUBED) - US RETROPERITONEAL [id number] 16:54:00 Patient Name: CITLALY DAVIS Unit No: [id number] EXAMS: CPT CODE: [id number] US RETROPERITONEAL COM [id number] W1 EXAM: Retroperitoneal ultrasound HISTORY: CKD TECHNIQUE: Real-time grayscale and color-flow Doppler images were obtained of thebilateral kidneys. COMPARISON: None FINDINGS: The right kidney measures 10.9 cm and the left measures 10.3 cm. No hydronephrosis. A 9 mm simple cyst is noted in the left kidney. No solid renal masses are present. There is normal renal cortical thickness and echogenicity. IMPRESSION: Normal kidneys. at 1654 Reported and signed by: Rian Juarez MD CC: Manny Tucker MD; Augustine Hdz Technologist: Chelsea Garcia RDMS(OB)(AB) Transcrpt Date/Tm/Trnsp: 07/25/2019(8352) [id number] Orig Print D/T: S: 07/25/2019 (8958) [facility] NAME: CITLALY DAVIS [address] [address] PHYS: [place] [address] : 1960 AG E: 59 SEX: F LOC: Z.343 A PHONE #: [phone] EXAM DATE: 07/25/2019 STATUS: ADM IN FAX #: [phone] RADIOLOGY NO: PAGE 1 Signed ReportURINALYSIS [id number] 16:13:00 Test Item Value Reference Range Interpretation Comments UA COLOR (test code = YELLOW YELLOW COLU) UA APPEARANCE (test code CLEAR CLEAR = APPU) UA GLUCOSE DIPSTICK (test 100 MG/DL NORMAL A code = DGLUU) UA BILIRUBIN DIPSTICK NEGATIVE MG/DL NEGATIVE (test code = BILU) UA KETONE DIPSTICK (test NEGATIVE MG/DL NEGATIVE code = KETU) UA SPECIFIC GRAVITY (test 1.015 1.003-1.030 N code = SGU) UA BLOOD DIPSTICK (test 25 Krishna/mm3 NEGATIVE A code = HELLEN) UA PH DIPSTICK (test code 6.0 5.0-9.0 N = VIRGIL) UA PROTEIN DIPSTICK (test 500 MG/DL NEGATIVE A code = PROU) UA UROBILINIOGEN DIPSTICK NORMAL MG/DL NORMAL (test code = URO) UA NITRITE DIPSTICK (test NEGATIVE NEGATIVE code = CADEN) UA LEUKOCYTE ESTERASE 100 /mm3 NEGATIVE A DIPSTICK (test code = LEUU) UA CULTURE NEEDED? (test NO, WBC<10 Criteria Culture Chk code = UACULT) SOURCE OF URINE: CLEAN CATCHUA [id number] 16:13:00 Test Item Value Reference Range Interpretation Comments UA RBC (test code = RBCU) 5-10 RBC/HPF 0-3 A UA WBC (test code = XWBCU) 5-9 WBC/HPF 0-5 A UA EPITHELIAL CELLS (test code = FEW EPI/HPF FEW EPIU) UA BACTERIA (test code = XBACU) FEW NONE UA MUCUS (test code = MUCU) SLIGHT #/LPF NONE SOURCE OF URINE: CLEAN CATCHGLUCOSE BEDSIDE [id number] 15:53:00 Test Item Value Reference Range Interpretation Comments GLUCOSE BEDSIDE TESTING (test code 141 MG/DL 60-99 H = GLUBED) ALLIE [id number] 15:48:00 Test Item Value Reference Range Interpretation Comments ALLIE DIRECT (test code = ANADIR) NEGATIVE AB HEPATITIS B [id number] 15:48:00 Test Item Value Reference Range Interpretation Comments AB HEPATITIS B POSITIVE SURFACE (test code = HBSAB) CLINICAL INTERP RETATION OF IMMUNE STATUS *NEGATIVE: Inconsistent wi th immunity to HBV infection, less than 5.0 mIU/mL POSITIVE: Consistent with immunity to HBV infectio n, greater than 1 0.0 mIU/mL AB HEPATITIS B [id number] 15:48:00 Test Item Value Reference Range Interpretation Comments AB HEPATITIS B CORE (test code = POSITIVE NONREACTIVE HBCAB) AB HEPATITIS C [id number] 15:48:00 Test Item Value Reference Range Interpretation Comments AB HEPATITIS C (test code = HCVAB) NEGATIVE NONREACTIVE AB DNA DOUBLE [id number] 15:48:00 Test Item Value Reference Range Interpretation Comments AB DNA DOUBLE STRAND (test code = IU/ml 0-9 DNADSAB) COMPLEMENT [id number] 15:48:00 Test Item Value Reference Range Interpretation Comments COMPLEMENT C3 (test code = COMC3) mg/dl 82-167 COMPLEMENT [id number] 15:48:00 Test Item Value Reference Range Interpretation Comments COMPLEMENT C4 (test code = COMC4) mg/dl 14-44 URINALYSIS [id number] 15:43:00 Test Item Value Reference Range Interpretation Comments UA COLOR (test code = COLU) YELLOW YELLOW UA APPEARANCE (test code = CLEAR CLEAR APPU) UA GLUCOSE DIPSTICK (test code 100 MG/DL NORMAL A = DGLUU) UA BILIRUBIN DIPSTICK (test NEGATIVE MG/DL NEGATIVE code = BILU) UA KETONE DIPSTICK (test code NEGATIVE MG/DL NEGATIVE = KETU) UA SPECIFIC GRAVITY (test code 1.015 1.003-1.030 N = SGU) UA BLOOD DIPSTICK (test code = 25 Krishna/mm3 NEGATIVE A HELLEN) UA PH DIPSTICK (test code = 6.0 5.0-9.0 N VIRGIL) UA PROTEIN DIPSTICK (test code 500 MG/DL NEGATIVE A = PROU) UA UROBILINIOGEN DIPSTICK NORMAL MG/DL NORMAL (test code = URO) UA NITRITE DIPSTICK (test code NEGATIVE NEGATIVE = CADEN) UA LEUKOCYTE ESTERASE DIPSTICK 100 /mm3 NEGATIVE A (test code = LEUU) UA CULTURE NEEDED? (test code Criteria Culture Chk = UACULT) SOURCE OF URINE: CLEAN CATCHUA [id number] 15:43:00 Test Item Value Reference Range Interpretation Comments UA RBC (test code = RBCU) RBC/HPF 0-3 UA WBC (test code = XWBCU) WBC/HPF 0-5 UA EPITHELIAL CELLS (test code = EPI/HPF FEW EPIU) UA BACTERIA (test code = XBACU) NONE SOURCE OF URINE: CLEAN CATCHURINALYSIS [id number] 15:43:00 Test Item Value Reference Range Interpretation Comments UA COLOR (test code = COLU) YELLOW YELLOW UA APPEARANCE (test code = CLEAR CLEAR APPU) UA GLUCOSE DIPSTICK (test code 100 MG/DL NORMAL A = DGLUU) UA BILIRUBIN DIPSTICK (test NEGATIVE MG/DL NEGATIVE code = BILU) UA KETONE DIPSTICK (test code NEGATIVE MG/DL NEGATIVE = KETU) UA SPECIFIC GRAVITY (test code 1.015 1.003-1.030 N = SGU) UA BLOOD DIPSTICK (test code = 25 Krishna/mm3 NEGATIVE A HELLEN) UA PH DIPSTICK (test code = 6.0 5.0-9.0 N VIRGIL) UA PROTEIN DIPSTICK (test code 500 MG/DL NEGATIVE A = PROU) UA UROBILINIOGEN DIPSTICK NORMAL MG/DL NORMAL (test code = URO) UA NITRITE DIPSTICK (test code NEGATIVE NEGATIVE = CADNE) UA LEUKOCYTE ESTERASE DIPSTICK 100 /mm3 NEGATIVE A (test code = LEUU) UA CULTURE NEEDED? (test code Criteria Culture Chk = UACULT) SOURCE OF URINE: CLEAN CATCHUA [id number] 15:43:00 Test Item Value Reference Range Interpretation Comments UA RBC (test code = RBCU) RBC/HPF 0-3 UA WBC (test code = XWBCU) WBC/HPF 0-5 UA EPITHELIAL CELLS (test code = EPI/HPF FEW EPIU) UA BACTERIA (test code = XBACU) NONE SOURCE OF URINE: CLEAN CATCHPROTEIN ELECTROPHORESIS [id number] 15:07:00 Test Item Value Reference Range Interpretation Comments TOTAL PROTEIN (test code = PROTE) G/DL 6.0-8.5 ALBUMIN (test code = ALBE) G/DL 3.5-5.5 [id number] (test code = A1G) G/DL 0.2-0.5 [id number]-2-OHGYLZUY (test code = A2G) G/DL 0.2-1.1 BETA GLOBULIN (test code = BG) G/DL 0.5-1.2 GAMMA GLOBULIN (test code = GG) G/DL 0.5-1.5 M-SPIKE,SERUM (test code = MSPIKES) NOT OBSERVE GLOBULIN ELECT (test code = GLOBE) ALBUMIN/GLOBULIN RATIO (test code = AGE) PROT.ELECTROPH.INTERPRETATION (test code = ELEINT) [id number] 15:07:00 Test Item Value Reference Range Interpretation Comments FERRITIN (test code = [place]) 47.8 NG/ML 11.1-264 N FE W/TOTAL IRON BINDING CAP.[id number] 14:43:00 Test Item Value Reference Range Interpretation Comments SERUM IRON (test code = IRON) 60 MCG/DL 37-170 N TOTAL IRON BINDING CAPACITY (test 264 MCG/DL 265-497 L code = TIBC) IRON SATURATION (test code = 23 % 12-57 N FESAT) PARATHYROID HORMONE [id number] 14:43:00 Test Item Value Reference Range Interpretation Comments PARATHYROID HORMONE INTACT (test 357.6 pg/mL 7.5-53.5 H code = PARAI) FE W/TOTAL IRON BINDING CAP.2019-07-25 14:40:00 Test Item Value Reference Range Interpretation Comments SERUM IRON (test code = IRON) 60 MCG/DL 37-170 N TOTAL IRON BINDING CAPACITY (test 264 MCG/DL 265-497 L code = TIBC) IRON SATURATION (test code = 23 % 12-57 N FESAT) PARATHYROID HORMONE [id number] 14:40:00 Test Item Value Reference Range Interpretation Comments PARATHYROID HORMONE INTACT (test code pg/mL 7.5-53.5 = PARAI) FE W/TOTAL IRON BINDING CAP.2019-07-25 14:30:00 Test Item Value Reference Range Interpretation Comments SERUM IRON (test code = IRON) 60 MCG/DL 37-170 N TOTAL IRON BINDING CAPACITY (test MCG/DL 265-497 code = TIBC) IRON SATURATION (test code = FESAT) % 12-57 PARATHYROID HORMONE [id number] 14:30:00 Test Item Value Reference Range Interpretation Comments PARATHYROID HORMONE INTACT (test code pg/mL 7.5-53.5 = PARAI) GLUCOSE BEDSIDE [id number] 11:26:00 Test Item Value Reference Range Interpretation Comments GLUCOSE BEDSIDE TESTING (test code 171 MG/DL 60-99 H = GLUBED) GLUCOSE BEDSIDE [id number] 08:01:00 Test Item Value Reference Range Interpretation Comments GLUCOSE BEDSIDE TESTING (test code 142 MG/DL 60-99 H = GLUBED) BASIC METABOLIC [id number] 07:01:00 Test Item Value Reference Range Interpretation Comments SODIUM (test code = 138 MMOL/L 137-145 N NA) POTASSIUM (test code = 5.3 MMOL/L 3.5-5.1 H K) CHLORIDE (test code = 114 MMOL/L 98-107 H CL) CARBON DIOXIDE (test 17 MMOL/L 22-30 L code = CO2) ANION GAP (test code = 12 MMOL/L 14-24 L GAP) GLUCOSE (test code = 118 MG/DL 74-106 H GLU) BLOOD UREA NITROGEN 69 MG/DL 7-17 H (test code = BUN) GLOMERULAR FILTRATION 10 Report ing units: RATE (test code = GFR) ml/mi n/1.73 m2 (Modified MDRD Formula)Referen ce Range: > or = 6 0 ml/min/1.73 m2 CREATININE (test code 5.30 MG/DL 0.52-1.04 H = CREAT) CALCIUM (test code = 8.8 MG/DL 8.4-10.2 N CA) [id number] 07:01:00 Test Item Value Reference Range Interpretation Comments TROPONIN-I (test code = TROPI) 0.034 NG/ML 0.012-0.033 H BASIC METABOLIC [id number] 06:57:00 Test Item Value Reference Range Interpretation Comments SODIUM (test code = 138 MMOL/L 137-145 N NA) POTASSIUM (test code = 5.3 MMOL/L 3.5-5.1 H K) CHLORIDE (test code = 114 MMOL/L 98-107 H CL) CARBON DIOXIDE (test 17 MMOL/L 22-30 L code = CO2) ANION GAP (test code = 12 MMOL/L 14-24 L GAP) GLUCOSE (test code = 118 MG/DL 74-106 H GLU) BLOOD UREA NITROGEN 69 MG/DL 7-17 H (test code = BUN) GLOMERULAR FILTRATION 10 Report ing units: RATE (test code = GFR) ml/mi n/1.73 m2 (Modified MDRD Formula)Referen ce Range: > or = 6 0 ml/min/1.73 m2 CREATININE (test code 5.30 MG/DL 0.52-1.04 H = CREAT) CALCIUM (test code = 8.8 MG/DL 8.4-10.2 N CA) [id number] 06:57:00 Test Item Value Reference Range Interpretation Comments TROPONIN-I (test code = TROPI) NG/ML 0.0-0.045 CBC W/AUTO [id number] 06:38:00 Test Item Value Reference Range Interpretation Comments WHITE BLOOD CELL (test code = 6.7 K/MM3 3.8-9.8 N WBC) RED BLOOD CELL (test code = 3.21 M/MM3 3.58-4.97 L RBC) HEMOGLOBIN (test code = HGB) 8.1 G/DL 11.2-14.9 L HEMATOCRIT (test code = HCT) 27.5 % 33.2-43.5 L MEAN CELL VOLUME (test code = 86 fL 80.7-99.1 N MCV) MEAN CELL HGB (test code = MCH) 25.2 pg 27.0-34.1 L MEAN CELL HGB CONCETRATION 29.5 % 32.2-35.7 L (test code = MCHC) RED CELL DISTRIBUTION WIDTH 13.9 % 12.1-15.2 N (test code = RDW) PLATELET COUNT (test code = 270 K/MM3 129-368 N PLT) MEAN PLATELET VOLUME (test code 11.4 fl 7.4-10.4 H = MPV) NEUTROPHIL % (test code = NT%) 58.9 % 43-75 N IMMATURE GRANULOCYTE % (test 0.4 % 0.0-2.0 N code = IG%) LYMPHOCYTE % (test code = LY%) 28.8 % 14-44 N MONOCYTE % (test code = MO%) 10.3 % 4-13 N EOSINOPHIL % (test code = EO%) 1.3 % 0-6 N BASOPHIL % (test code = BA%) 0.3 % 0-2 N NUCLEATED RBC % (test code = 0.0 % 0-1.0 N NRBC%) NEUTROPHIL # (test code = NT#) 3.93 K/mm3 2.0-7.6 N IMMATURE GRANULOCYTE # (test 0.03 x10 3/uL 0-0.03 N code = IG#) LYMPHOCYTE # (test code = LY#) 1.93 K/mm3 1.0-3.8 N MONOCYTE # (test code = MO#) 0.69 K/mm3 0.1-0.8 N EOSINOPHIL # (test code = EO#) 0.09 K/mm3 0.0-0.2 N BASOPHIL # (test code = BA#) 0.02 K/mm3 0.0-0.2 N NUCLEATED RBC # (test code = 0.00 K/mm3 0.0-0.1 N NRBC#) [id number] 22:53:00 Test Item Value Reference Range Interpretation Comments TROPONIN-I (test code = TROPI) 0.017 NG/ML 0.012-0.033 B-TYPE NATRIURETIC [id number] 16:01:00 Test Item Value Reference Range Interpretation Comments B-TYPE NATRIURETIC PEPTIDE (test 482.0 PG/ML 0-100 H code = BNP) COMPREHENSIVE METABOLIC [id number] 15:53:00 Test Item Value Reference Range Interpretation Comments SODIUM (test code = 137 MMOL/L 137-145 N NA) POTASSIUM (test code = 6.1 MMOL/L 3.5-5.1 Milo AMIN) & READBACK ON 07/24/19 AT 154 7 BY Isha Medina CHLORIDE (test code = 110 MMOL/L 98-107 H CL) CARBON DIOXIDE (test 16 MMOL/L 22-30 L code = CO2) ANION GAP (test code = 17 MMOL/L 14-24 N GAP) GLUCOSE (test code = 265 MG/DL 74-106 H GLU) BLOOD UREA NITROGEN 68 MG/DL 7-17 H (test code = BUN) GLOMERULAR FILTRATION 9 Report ing units: RATE (test code = GFR) ml/mi n/1.73 m2 (Modified MDRD Formula)Referen ce Range: > or = 6 0 ml/min/1.73 m2 CREATININE (test code 5.70 MG/DL 0.52-1.04 H = CREAT) TOTAL PROTEIN (test 7.2 G/DL 6.3-8.2 N code = PROT) ALBUMIN (test code = 3.6 G/DL 3.5-5.0 N ALB) CALCIUM (test code = 9.1 MG/DL 8.4-10.2 N CA) BILIRUBIN TOTAL (test 0.3 MG/DL 0.2-1.3 N code = BILT) SGOT/AST (test code = 24 UNITS/L 14-36 N AST) SGPT/ALT (test code = 19 UNITS/L 9-52 N ALT) ALKALINE PHOSPHATASE 133 UNITS/L 38-126 H (test code = ALKP) [id number] 15:53:00 Test Item Value Reference Range Interpretation Comments TROPONIN-I (test code = TROPI) 0.016 NG/ML 0.012-0.033 N COMPREHENSIVE METABOLIC [id number] 15:49:00 Test Item Value Reference Range Interpretation Comments SODIUM (test code = 137 MMOL/L 137-145 N NA) POTASSIUM (test code = 6.1 MMOL/L 3.5-5.1 HH RAJESH D TO Milo NELSON) & READBACK ON 07/24/19 AT 154 7 BY Isha Medina CHLORIDE (test code = 110 MMOL/L 98-107 H CL) CARBON DIOXIDE (test 16 MMOL/L 22-30 L code = CO2) ANION GAP (test code = 17 MMOL/L 14-24 N GAP) GLUCOSE (test code = 265 MG/DL 74-106 H GLU) BLOOD UREA NITROGEN 68 MG/DL 7-17 H (test code = BUN) GLOMERULAR FILTRATION 9 Report ing units: RATE (test code = GFR) ml/mi n/1.73 m2 (Modified MDRD Formula)Referen ce Range: > or = 6 0 ml/min/1.73 m2 CREATININE (test code 5.70 MG/DL 0.52-1.04 H = CREAT) TOTAL PROTEIN (test 7.2 G/DL 6.3-8.2 N code = PROT) ALBUMIN (test code = 3.6 G/DL 3.5-5.0 N ALB) CALCIUM (test code = 9.1 MG/DL 8.4-10.2 N CA) BILIRUBIN TOTAL (test 0.3 MG/DL 0.2-1.3 N code = BILT) SGOT/AST (test code = 24 UNITS/L 14-36 N AST) SGPT/ALT (test code = 19 UNITS/L 9-52 N ALT) ALKALINE PHOSPHATASE 133 UNITS/L 38-126 H (test code = ALKP) [id number] 15:49:00 Test Item Value Reference Range Interpretation Comments TROPONIN-I (test code = TROPI) NG/ML 0.0-0.045 - XR CHEST [id number] 15:35:00 Patient Name: CITLALY DAVIS Unit No: [id number] EXAMS: CPT CODE: [id number] XR CHEST 1V [id number] EXAM: XR Chest 1 View INDICATION: Chest pain LOCAT ION CODE: B2 COMPARISON: None available TECHNIQUE: Frontal view of the chest was obtained. FINDINGS: The lungs are clear. There is no pleural effusion or pneumothorax. The cardiomediastinal silhouette is mildly enlarged, possibly due to cardiomegaly versus pericardial effusion. No acute osseous abnormality is identified. Degenerative changes are seen at the bilateral shoulder joints. IMPRESSION: Mild enlargement of the cardiomediastinal silhouette, possibly due to cardiomegaly versus pericardial effusion. at 1535 Reported and signed by: Ines Solares MD CC: Manny Tucker MD; Jeremy Vences MD Technologist: [facility] ; Jeremy Daniel, RT(R) Transcrpt Date/Tm/Trnsp:07/24/2019 (1535) [id number] Orig Print D/T: S: 07/24/2019 (6076) [facility] NAME: CITLALY DAVIS [id number] [address] PHYS: 03 - [place] [address] : 1960 AGE: 59 SEX: F LOC: Z.ERS PHONE #: [phone] EXAM DATE: 07/24/2019 STATUS: REG ER FAX #: [phone] RADIOLOGY NO: PAGE 1 Signed ReportCBC W/AUTO [id number] 15:25:00 Test Item Value Reference Range Interpretation Comments WHITE BLOOD CELL (test code = 6.6 K/MM3 3.8-9.8 N WBC) RED BLOOD CELL (test code = 3.13 M/MM3 3.58-4.97 L RBC) HEMOGLOBIN (test code = HGB) 8.2 G/DL 11.2-14.9 L HEMATOCRIT (test code = HCT) 26.6 % 33.2-43.5 L MEAN CELL VOLUME (test code = 85 fL 80.7-99.1 N MCV) MEAN CELL HGB (test code = MCH) 26.2 pg 27.0-34.1 L MEAN CELL HGB CONCETRATION 30.8 % 32.2-35.7 L (test code = MCHC) RED CELL DISTRIBUTION WIDTH 13.9 % 12.1-15.2 N (test code = RDW) PLATELET COUNT (test code = 257 K/MM3 129-368 N PLT) MEAN PLATELET VOLUME (test code 10.9 fl 7.4-10.4 H = MPV) NEUTROPHIL % (test code = NT%) 74.3 % 43-75 N IMMATURE GRANULOCYTE % (test 0.3 % 0.0-2.0 N code = IG%) LYMPHOCYTE % (test code = LY%) 20.2 % 14-44 N MONOCYTE % (test code = MO%) 4.3 % 4-13 N EOSINOPHIL % (test code = EO%) 0.6 % 0-6 N BASOPHIL % (test code = BA%) 0.3 % 0-2 N NUCLEATED RBC % (test code = 0.0 % 0-1.0 N NRBC%) NEUTROPHIL # (test code = NT#) 4.89 K/mm3 2.0-7.6 N IMMATURE GRANULOCYTE # (test 0.02 x10 3/uL 0-0.03 N code = IG#) LYMPHOCYTE # (test code = LY#) 1.33 K/mm3 1.0-3.8 N MONOCYTE # (test code = MO#) 0.28 K/mm3 0.1-0.8 N EOSINOPHIL # (test code = EO#) 0.04 K/mm3 0.0-0.2 N BASOPHIL # (test code = BA#) 0.02 K/mm3 0.0-0.2 N NUCLEATED RBC # (test code = 0.00 K/mm3 0.0-0.1 N NRBC#) BASIC METABOLIC [id number] 01:55:00 Test Item Value Reference Range Interpretation Comments SODIUM (test code = 139 MMOL/L 137-145 N NA) POTASSIUM (test code = 5.8 MMOL/L 3.5-5.1 H K) CHLORIDE (test code = 114 MMOL/L 98-107 H CL) CARBON DIOXIDE (test 17 MMOL/L 22-30 L code = CO2) ANION GAP (test code = 14 MMOL/L 14-24 N GAP) GLUCOSE (test code = 75 MG/DL 74-106 N GLU) BLOOD UREA NITROGEN 60 MG/DL 7-17 H (test code = BUN) GLOMERULAR FILTRATION 12 Report ing units: RATE (test code = GFR) ml/mi n/1.73 m2 (Modified MDRD Formula)Referen ce Range: > or = 6 0 ml/min/1.73 m2 CREATININE (test code 4.40 MG/DL 0.52-1.04 H = CREAT) CALCIUM (test code = 9.0 MG/DL 8.4-10.2 N CA) CBC W/O [id number] 01:42:00 Test Item Value Reference Range Interpretation Comments WHITE BLOOD CELL (test code = 7.2 K/MM3 3.8-9.8 N WBC) RED BLOOD CELL (test code = 3.26 M/MM3 3.58-4.97 L RBC) HEMOGLOBIN (test code = HGB) 8.5 G/DL 11.2-14.9 L HEMATOCRIT (test code = HCT) 28.0 % 33.2-43.5 L MEAN CELL VOLUME (test code = 86 fL 80.7-99.1 N MCV) MEAN CELL HGB (test code = MCH) 26.1 pg 27.0-34.1 L MEAN CELL HGB CONCETRATION 30.4 % 32.2-35.7 L (test code = MCHC) RED CELL DISTRIBUTION WIDTH 13.9 % 12.1-15.2 N (test code = RDW) PLATELET COUNT (test code = 328 K/MM3 129-368 N PLT) NEUTROPHIL # (test code = NT#) 4.81 K/mm3 2.0-7.6 N IMMATURE GRANULOCYTE # (test 0.02 x10 3/uL 0-0.03 N code = IG#) LYMPHOCYTE # (test code = LY#) 1.76 K/mm3 1.0-3.8 N MONOCYTE # (test code = MO#) 0.50 K/mm3 0.1-0.8 N EOSINOPHIL # (test code = EO#) 0.05 K/mm3 0.0-0.2 N BASOPHIL # (test code = BA#) 0.03 K/mm3 0.0-0.2 N NUCLEATED RBC # (test code = 0.00 K/mm3 0.0-0.1 N NRBC#)
--- NOTE | 2022-04-08 16:36 | RAD REPORT ---
EXAM DESCRIPTION: CT - Head C Spine Mpr Wo Con - 04/08/2022 4:21 pm CLINICAL HISTORY: Seizure. Head and neck injury status post fall. Head and neck pain COMPARISON: None. TECHNIQUE: Computed axial tomography of the head and cervical spine was obtained. Sagittal and coronal reconstruction was performed. All CT scans are performed using dose optimization technique as appropriate and may include automated exposure control or mA/KV adjustment according to patient size. FINDINGS: An intracranial bleed is not seen. Moderate low-density areas within periventricular, deep and subcortical white matter bilaterally The ventricles are normal in caliber. An extra-axial fluid collection is not noted.Fluid within the v isualized sinuses and mastoids is not seen A cervical fracture is not visualized. No dislocation is noted. IMPRESSION: Moderate low-density areas within periventricular, deep and subcortical white matter dariela aterally probably ischemic changes secondary to small vessel disease. A demyelinating process can als o have this appearance. A cervical fracture is not visualized. If the patient continues to have symptoms to suggest intracranial /spinal cord pathology then MRI wou ld be recommended
[2022-04-08] MEDS ORDERED: HYDROCODONE/CHLORPHEN 5 ML/OSYR ONE (16:51)
[2022-04-08 16:52] LABS: Absolute Lymphocytes (CBC) 0.7 K/uL (0.7-4.9); Hematocrit 29.2 % (36.0-45.0); Lymphocytes % 6.7 % (15.3-44.8); MPV 8.6 fL (7.6-11.3)
[2022-04-08 17:01] LABS: Protime INR 1.07
[2022-04-08] MEDS ORDERED: HYDRALAZINE HCL 20 MG/ML VIAL ONE ×2 (17:08→18:40)
--- NOTE | 2022-04-08 17:16 | RAD REPORT ---
EXAM DESCRIPTION: [facility] Single View04/08/2022 4:43 pm CLINICAL HISTORY: Seizure/syncope COMPARISON: none FINDINGS: Mild bilateral interstitial lung opacities. The heart is moderately enlarged IMPRESSION: These findings probably indicate mild CHF
[2022-04-08] MEDS ORDERED: LORazepam 2 MG/ML VIAL ONE (17:41)
[2022-04-08 17:44] LABS: Bilirubin Direct 0.2 mg/dL (0-0.2); Bilirubin Total 0.5 mg/dL (0.2-1.0); Magnesium 2.1 mg/dL (1.8-2.4); Potassium 4.2 mmol/L (3.5-5.1); Protein, Total 6.9 g/dL (6.4-8.2)
[2022-04-08] MEDS ORDERED: LEVETIRACETAM 500 MG/5 ML VIAL IV ONE (17:48)
[2022-04-08] MEDS ORDERED: NA CHLORIDE 0.9% 100 ML IV ONE (17:49)
[2022-04-08 17:57] LABS: Troponin High Sensitivity 687.7 pg/mL (<58.9)
[2022-04-08 18:08] LABS: Platelet Estimate ADEQ; White Blood Cell Scan OK (OK)
[2022-04-08 18:09] LABS: Anisocytosis 2+; Blood Morphology Comment NOTED (NOT SEEN); Poikilocytosis 1+
[2022-04-08] MEDS ORDERED: INSULIN -REGULAR HUMAN 50 UNIT/0.5 ML ML ONE ×2 (18:22→20:14)
--- NOTE | 2022-04-08 19:04 | RAD REPORT ---
EXAM DESCRIPTION: CT - Head Brain Wo Cont - 04/08/2022 6:53 pm CLINICAL HISTORY: Seizure COMPARISON: None TECHNIQUE: Computed axial tomography of the head was obtained. IV contrast was not requested. All CT scans are performed using dose optimization technique as appropriate and may include automated exposure control or mA/KV adjustment according to patient size. FINDINGS: An intracranial bleed is not seen . The ventricles are normal in caliber. No extra-axial fluid collection is noted. Moderate low-density areas within periventricular, deep and subcortical white matter likely represen t ischemic changes secondary to small vessel disease. Fluid within the sinuses/ mastoids is not seen. IMPRESSION: Moderate low-density areas within periventricular, deep and subcortical white matter dariela aterally probably ischemic changes secondary to small vessel disease. A demyelinating process can als o have this appearance. No acute intracranial abnormality is seen. If patient's symptoms persist MRI of the brain would be r ecommended.
[2022-04-08] MEDS ORDERED: LABETALOL HCL 100 MG/20 ML ONE (20:14)
--- NOTE | 2022-04-08 20:46 | ER ---
Nurse's Notes [facility] Name: Lita Ernst Age: 61 yrs Sex: Female : 1960 Arrival Date: 04/08/2022 Time: 15:13 Bed 13 Private MD: Diagnosis: Other seizures;Diabetes mellitus due to underlying condition with hyperglycemia;Hypertensive heart and chronic kidney disease with heart failure and with stage 5 chronic kidney disease, or end stage renal disease Presentation: 04/08 15:31 Chief complaint: EMS states: "64 year old female, she was at [employer] lunch with jd3 her friends. she started shaking and the friends reported that it lasted about 3 min. on our arrival the pt appeared disoriented and diaphoretic. BGL was 435. the pt has a history of seizures, dialysis, ESRD. she has become a little more with it by the time we arrived here. she is having high blood pressure and had mentioned that she may have forgotten to taker her meds this morning. we gave 300 ml NS and started a 20 G IV to the right AC.". Coronavirus screen: At this time, the client does not indicate any symptoms associated with coronavirus-19. Ebola Screen: No symptoms or risks identified at this time. Initial Sepsis Screen: Does the patient meet any 2 criteria? No. Patient's initial sepsis screen is negative. Does the patient have a suspected source of infection? No. Patient's initial sepsis screen is negative. Risk Assessment: Do you want to hurt yourself or someone else? Patient reports no desire to harm self or others. Onset of symptoms was April 08, 2022. 15:31 Method Of Arrival: EMS: [facility] jd3 15:31 Acuity: JERAMY 3 jd3 18:23 Acuity: JERAMY 2 iw Historical: - Allergies: 15:40 unknown med; jd3 - Home Meds: 19:38 aspirin 81 mg Oral chew 1 tab once daily [Active]; Glimepiride Oral [Active]; kate lisinopril Oral [Active]; Metformin Oral [Active]; - PMHx: 15:40 Cataracts; Diabetes - NIDDM; Hypertension; dialysis MWF; jd3 - PSHx: 15:40 dialysis on the left arm; jd3 - Immunization history:: Adult Immunizations up to date, Client reports receiving the 2nd dose of the Covid vaccine, Flu vaccine status is unknown. - Social history:: Smoking status: Patient denies any tobacco usage or history of. Screenin:43 Abuse screen: Denies threats or abuse. Nutritional screening: No deficits noted. jd3 Tuberculosis screening: No symptoms or risk factors identified. Fall Risk Ambulatory Aid- None/Bed Rest/Nurse Assist (0 pts). Gait- Normal/Bed Rest/Wheelchair (0 pts) Mental Status- Oriented to own ability (0 pts). Total Tobias Fall Scale indicates No Risk (0-24 pts). Assessment: 15:42 General: Appears in no apparent distress. comfortable, Behavior is calm, cooperative, jd3 appropriate for age. Pain: Denies pain. Neuro: Rojas Agitation-Sedation Scale (RASS): -1 Drowsy Level of Consciousness is awake, obeys commands, post ictal, Oriented to person, place, time, situation, Reports a syncopal episode. Cardiovascular: Denies chest pain, Capillary refill < 3 seconds Patient's skin is warm and dry. Respiratory: Airway is patent Respiratory effort is even, unlabored, Respiratory pattern is regular, symmetrical, Denies cough, shortness of breath. GI: No signs and/or symptoms were reported involving the gastrointestinal system. : No signs and/or symptoms were reported regarding the genitourinary system. EENT: No signs and/or symptoms were reported regarding the EENT system. Derm: Skin is intact, Skin is dry, Skin is normal, Skin temperature is warm. Musculoskeletal: Circulation, motion, and sensation intact. Range of motion: intact in all extremities. 16:51 Reassessment: Patient appears in no apparent distress at this time. Patient and/or jd3 family updated on plan of care and expected duration. Pain level reassessed. Patient is alert, oriented x 3, equal unlabored respirations, skin warm/dry/pink. pt asking for medication to help with cough. provider notified. 17:40 Reassessment: Patient and/or family updated on plan of care and expected duration. Pain jd3 level reassessed. pt with active tonic clonic seizure activity witnessed by primary nurse. seizure activity lasting about 1 min. provider and charge nurse called to bedside. 17:51 Reassessment: pt is post-ictal at this time. family at bedside. Neuro: Level of jd3 Consciousness is post ictal. Respiratory: Airway is patent Respiratory effort is even, unlabored, Respiratory pattern is regular, symmetrical. 18:40 Reassessment: No changes from previously documented assessment. Patient and/or family jd3 updated on plan of care and expected duration. Pain level reassessed. family at bedside. pt remains post-ictal. responding to painful stimuli. even and unlabored respirations. 19:36 Reassessment: I recv'd report on the pt in room #13. She remains post-ictal with her kate son at . He reports "this happened last time". The pt remains on the bs monitor, and although her bp is elevated, it has improved. 20:21 Reassessment: The pt is moving more and pulling away as I give medications. Provider is kate informed. 21:42 Reassessment: I called report to [phone] and I am awaiting EMS pick-up. The pt is kate to go to [facility]. Her family was informed by the provider. Her bp has greatly improved. The provider also changed her onto a NC. EMS is here to pick her up. 22:03 Reassessment: Report was given to EMS and the pt was moved onto their stretcher. I told kate her she was going to [facility] and she finally spoke, saying "Why?" EMS told her she was sick and she needed to be admitted. The pt is becoming more alert, which is encouraging. Vital Signs: 15:41 BP 204 / 107; Pulse 91; Resp 19 S; Temp 98.7(TE); Pulse Ox 97% on R/A; Weight 64.86 kg jd3 (R); Height 5 ft. 4 in. (162.56 cm) (R); Pain 0/10; 16:51 BP 220 / 94; Pulse 90; Resp 18 S; Pulse Ox 97% on R/A; jd3 17:52 BP 173 / 149; Pulse 91; Resp 18 S; Pulse Ox 100% on R/A; jd3 18:39 BP 224 / 104; Pulse 97; Resp 13 S; Pulse Ox 100% on Non-rebreather mask; jd3 19:37 BP 190 / 100; Pulse 96; Resp 18; Pulse Ox 100% on Non-rebreather mask; kate 21:31 BP 184 / 89; Pulse 80; Resp 18; Pulse Ox 100% on 2 lpm NC; Pain 0/10; kate 15:41 Body Mass Index 24.54 (64.86 kg, 162.56 cm) jd3 16:51 provider notified of elevated BP jd3 ED Course: 15:13 Patient arrived in ED. iw 15:13 Addison Awad PA is PHCP. cp 15:13 Singh Turner MD is Attending Physician. cp 15:31 Servando Ybarra, SHALINI is Primary Nurse. jd3 15:39 Triage completed. jd3 15:42 Arm band placed on. jd3 15:43 Patient has correct armband on for positive identification. Placed in gown. Bed in low jd3 position. Call light in reach. Side rails up X2. Client placed on continuous cardiac and pulse oximetry monitoring. NIBP monitoring applied. sales advisor on. Pulse ox on. NIBP on. 16:23 Head C Spine Mpr Wo Con In Process Unspecified. EDMS 16:45 XRAY Chest (1 view) In Process Unspecified. EDMS 18:55 Head Brain Wo Cont In Process Unspecified. EDMS 19:38 No provider procedures requiring assistance completed. kate 19:46 Attending Physician role handed off by Singh Turner MD cp 19:46 Cornell Dorantes MD is Attending Physician. cp 21:48 Patient transferred, IV remains in place. kate Administered Medications: 16:53 Drug: Tussionex Pennkinetic ER (chlorpheniramine-hydrocodone) Suspension 5 ml Route: PO;jd3 17:50 Follow up: Response: No adverse reaction jd3 17:08 Drug: hydrALAZINE 10 mg Route: IVP; Site: right antecubital; jd3 18:00 Follow up: Response: No adverse reaction jd3 17:40 Drug: Ativan (LORazepam) 2 mg Route: IVP; Site: right antecubital; jd3 18:40 Follow up: Response: No adverse reaction jd3 17:49 Drug: Keppra (levETIRAcetam) 1000 mg Route: IV; Rate: calculated rate; Site: right jd3 antecubital; 18:40 Follow up: Response: No adverse reaction; IV Status: Completed infusion jd3 18:22 Drug: Insulin Regular Human 10 units {Co-Signature: bp (Arnav Paris RN).} Route: IVP; jd3 Site: right antecubital; 18:46 Follow up: Response: No adverse reaction jd3 18:39 Drug: hydrALAZINE 10 mg Route: IVP; Site: right antecubital; jd3 19:07 Follow up: Response: No adverse reaction jd3 20:20 Drug: Insulin Regular Human 10 units {Co-Signature: ag7 (Daniela Sanchez RN).} Route: IVP; kate Site: right antecubital; 20:20 Drug: Labetalol 20 mg Route: IVP; Infused Over: 2 mins; Site: right antecubital; kate Medication: 15:43 VIS not applicable for this client. jd3 Point of Care Testing: Blood Glucose: 19:35 Blood Glucose: 355 mg/dL; kate Ranges: Outcome: 19:38 Condition: unchanged kate 20:45 ER care complete, transfer ordered by MD. cp 21:48 Transferred by ground EMS to [facility]. kate 22:05 Patient left the ED. kate Signatures: Dispatcher [employer] EDMS Beverly Erickson RN RN iw Page, Corey, PA PA cp Davies, Jonathon, RN RN jVivian Hewitt RN RN kate Arnav Paris RN bp Daniela Sanchez RN ag7 Corrections: (The following items were deleted from the chart) 15:41 15:40 Allergies: NKDA; jd3 jd3 16:06 15:41 BP 104 / 107; Pulse 91bpm; Resp 19bpm; Spontaneous; Pulse Ox 97% RA; Temp 98.7F jd3 Temporal; 64.86 kg Reported; Height 5 ft. 4 in. Reported; BMI: 24.5; Pain 0/10; jd3 16:52 15:31 Chief complaint: EMS states: "64 year old female, she was at [employer] eating lunch j with her friends. she started shaking and the friends reported that it lasted about 3 min. on our arrival the pt appeared disoriented and diaphoretic. BGL was 435. the pt has a history of seizures, dialysis, ESRD. she has become a little more with it by the time we arrived here. she is having high blood pressure. we gave 300 ml NS and started a 20 G IV to the right AC." jd3 21:48 21:32 Reassessment: kate kate
--- NOTE | 2022-04-08 20:46 | EDPHYS ---
Physician Documentation [facility] Name: Lita Ernst Age: 61 yrs Sex: Female : 1960 Arrival Date: 04/08/2022 Time: 15:13 Bed 13 Private MD: ED Physician Cornell Dorantes HPI: 04/08 17:54 This 61 yrs old Black Female presents to ER via EMS with complaints of Altered Mental cp status. 17:55 The patient presents with decreased mental status, possible seizure. cp 17:55 Onset: The symptoms/episode began/occurred just prior to arrival. cp 17:55 Patient's baseline: Neuro: alert and fully oriented, Motor: no deficits, Ambulation: cp walks without assistance, Speech: normal. EMS reports patient was at [employer] when she was observed to lose consciousness and start shaking all over. EMS reports patient has been diagnosed with seizure disorder. 17:55 Current symptoms: In the emergency department the patient's symptoms have improved, cp patient alert and responsive to questioning. Knows name but unable to give history of events. Historical: - Allergies: 15:40 unknown med; jd3 - Home Meds: 19:38 aspirin 81 mg Oral chew 1 tab once daily [Active]; Glimepiride Oral [Active]; kate lisinopril Oral [Active]; Metformin Oral [Active]; - PMHx: 15:40 Cataracts; Diabetes - NIDDM; Hypertension; dialysis MWF; jd3 - PSHx: 15:40 dialysis on the left arm; jd3 - Immunization history:: Adult Immunizations up to date, Client reports receiving the 2nd dose of the Covid vaccine, Flu vaccine status is unknown. - Social history:: Smoking status: Patient denies any tobacco usage or history of. ROS: 18:00 Constitutional: Negative for body aches, chills, fever, poor PO intake. cp 18:00 Neck: Negative for pain with movement, pain at rest, stiffness. cp 18:00 Cardiovascular: Negative for chest pain. 18:00 Respiratory: Positive for cough, Negative for shortness of breath, wheezing. 18:00 Abdomen/GI: Negative for abdominal pain. 18:00 Neuro: Positive for altered mental status, Negative for headache, seizure activity, weakness. 18:00 All other systems are negative. Exam: 15:53 ECG was reviewed by the Attending Physician. cp 18:05 Constitutional: The patient appears in no acute distress, alert, awake, cp non-diaphoretic, non-toxic, well developed, well nourished. 18:05 Head/Face: Normocephalic, atraumatic. cp 18:05 Eyes: Periorbital structures: appear normal, Pupils: equal, round, and reactive to light and accomodation, Extraocular movements: intact throughout, Conjunctiva: normal, no exudate, no injection, Sclera: no appreciated abnormality, Lids and lashes: appear normal, bilaterally. 18:05 ENT: External ear(s): are unremarkable, Ear canal(s): are normal, clear, TM's: dullness, bilaterally, Nose: is normal, Mouth: Lips: moist, Oral mucosa: pink and intact, moist, Posterior pharynx: Airway: no evidence of obstruction, patent. 18:05 Neck: ROM/movement: is normal, is supple, without pain, no range of motions limitations. 18:05 Chest/axilla: Inspection: normal, Palpation: is normal, no crepitus, no tenderness. 18:05 Cardiovascular: Rate: normal, Rhythm: regular, Edema: is not appreciated, JVD: is not appreciated. 18:05 Respiratory: the patient does not display signs of respiratory distress, Respirations: normal, no use of accessory muscles, no retractions, labored breathing, is not present, Breath sounds: are clear throughout, no decreased breath sounds, no stridor, no wheezing. 18:05 Abdomen/GI: Inspection: abdomen appears normal, Palpation: abdomen is soft and non-tender, in all quadrants. 18:05 Back: pain, is absent, ROM is normal. 18:05 Musculoskeletal/extremity: Extremities: all appear grossly normal, with no appreciated pain with palpation. 18:05 Neuro: Orientation: to person, Mentation: able to follow commands, slow to respond, confused, Motor: moves all fours, strength is normal, Sensation: no obvious gross deficits. Vital Signs: 15:41 BP 204 / 107; Pulse 91; Resp 19 S; Temp 98.7(TE); Pulse Ox 97% on R/A; Weight 64.86 kg jd3 (R); Height 5 ft. 4 in. (162.56 cm) (R); Pain 0/10; 16:51 BP 220 / 94; Pulse 90; Resp 18 S; Pulse Ox 97% on R/A; jd3 17:52 BP 173 / 149; Pulse 91; Resp 18 S; Pulse Ox 100% on R/A; jd3 18:39 BP 224 / 104; Pulse 97; Resp 13 S; Pulse Ox 100% on Non-rebreather mask; jd3 19:37 BP 190 / 100; Pulse 96; Resp 18; Pulse Ox 100% on Non-rebreather mask; kate 21:31 BP 184 / 89; Pulse 80; Resp 18; Pulse Ox 100% on 2 lpm NC; Pain 0/10; kate 15:41 Body Mass Index 24.54 (64.86 kg, 162.56 cm) jd3 16:51 provider notified of elevated BP jd3 MDM: 15:24 Patient medically screened. 16:00 Differential Diagnosis: CVA, electrolyte abnormality, alcohol intoxication, hypoglycemia, intracranial bleed, overdose, seizure, sepsis, volume depletion. 20:30 Data reviewed: vital signs, nurses notes, lab test result(s), EKG, radiologic studies, CT scan, plain films. 20:30 Test interpretation: by ED physician or midlevel provider: ECG, plain radiologic studies. 20:35 ED course: spoke with son who reports patient was recently hospitalized at [facility] for several days for seizures about 8 days ago. Son is unsure what seizure meds patient is taking. Cosult with Suresh Ward who requests transfer for ICU bed and son requests transfer to [facility]. 21:00 Physician consultation: was contacted at 21:00, regarding regarding transfer, to [facility] patient's condition, accepting physician will be DR Bowman. 04/08 15:34 Order name: Basic Metabolic Panel; Complete Time: 18:00 04/08 17:52 Interpretation: Normal except: NA 131; CL 94; ANION GAP 15.2; GLUC 559; BUN 34; CRE cp 6.73; GFR 7. 04/08 15:34 Order name: CBC with Diff; Complete Time: 18:12 04/08 17:31 Interpretation: Normal except: RBC 3.70; HGB 9.6; HCT 29.2; MCV 78.8; MCH 25.9; RDW cp 21.1; CARLOS% 86.8; LYM% 6.7; NEUT A 8.6. 04/08 15:34 Order name: LFT's; Complete Time: 18:00 04/08 17:52 Interpretation: Normal except: ALK 249; ALB 3.0; GLOB 3.9; A/G 0.8. 04/08 15:34 Order name: Magnesium; Complete Time: 18:00 04/08 15:34 Order name: NT PRO-BNP; Complete Time: 18:00 04/08 17:53 Interpretation: NT PRO-BNP 71618; Reviewed. 04/08 15:34 Order name: PT-INR; Complete Time: 17:31 04/08 15:14 Order name: CT Head C Spine 04/08 15:18 Order name: Head C Spine Mpr Wo Con; Complete Time: 16:57 EDMS 04/08 15:34 Order name: Troponin HS; Complete Time: 18:00 04/08 17:53 Interpretation: Abnormal: Troponin HS 687.7. 04/08 15:34 Order name: XRAY Chest (1 view); Complete Time: 17:31 04/08 18:25 Interpretation: Report reviewed. 04/08 18:10 Order name: CBC Smear Scan; Complete Time: 18:12 EDMS 04/08 18:35 Order name: CT Head Brain wo Cont cp 04/08 18:39 Order name: Head Brain Wo Cont; Complete Time: 19:38 EDMS 04/08 19:47 Order name: Glucose, Ancillary Testing; Complete Time: 19:49 EDMS 04/08 19:49 Interpretation: Reviewed. 04/08 15:34 Order name: EKG; Complete Time: 15:35 04/08 15:34 Order name: Cardiac monitoring; Complete Time: 16:06 04/08 15:34 Order name: EKG - Nurse/Tech; Complete Time: 16:06 04/08 15:34 Order name: IV Saline Lock; Complete Time: 16:06 04/08 15:34 Order name: Labs collected and sent; Complete Time: 16:45 04/08 15:34 Order name: O2 Per Protocol; Complete Time: 16:06 04/08 15:34 Order name: O2 Sat Monitoring; Complete Time: 16:06 04/08 19:40 Order name: Accucheck Blood Glucose; Complete Time: 19:58 cp EC:53 Rate is 92 beats/min. Rhythm is regular. NH interval is normal. QRS interval is normal. cp QT interval is normal. T waves are Inverted in lead aVR. Interpreted by me. Reviewed by me. Administered Medications: 16:53 Drug: Tussionex Pennkinetic ER (chlorpheniramine-hydrocodone) Suspension 5 ml Route: PO;jd3 17:50 Follow up: Response: No adverse reaction jd3 17:08 Drug: hydrALAZINE 10 mg Route: IVP; Site: right antecubital; jd3 18:00 Follow up: Response: No adverse reaction jd3 17:40 Drug: Ativan (LORazepam) 2 mg Route: IVP; Site: right antecubital; jd3 18:40 Follow up: Response: No adverse reaction jd3 17:49 Drug: Keppra (levETIRAcetam) 1000 mg Route: IV; Rate: calculated rate; Site: right [facility] antecubital; 18:40 Follow up: Response: No adverse reaction; IV Status: Completed infusion jd3 18:22 Drug: Insulin Regular Human 10 units {Co-Signature: bp (Arnav Paris RN).} Route: IVP; jd3 Site: right antecubital; 18:46 Follow up: Response: No adverse reaction jd3 18:39 Drug: hydrALAZINE 10 mg Route: IVP; Site: right antecubital; jd3 19:07 Follow up: Response: No adverse reaction jd3 20:20 Drug: Insulin Regular Human 10 units {Co-Signature: ag7 (Daniela Sanchez RN).} Route: IVP; kate Site: right antecubital; 20:20 Drug: Labetalol 20 mg Route: IVP; Infused Over: 2 mins; Site: right antecubital; kate Point of Care Testing: Blood Glucose: 19:35 Blood Glucose: 355 mg/dL; kate Ranges: Critical Glucose Levels:Adult <50 mg/dl or >400 mg/dl <40 mg/dl or >180 mg/dl Disposition: 04/09 05:39 Co-signature as Attending Physician, Cornell Dorantes MD. 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 chronic kidney disease, or end stage renal disease Forms: - Medication Reconciliation Form cp - SBAR form cp Signatures: Dispatcher [employer] EDSuresh Her, MANGLE PRESS CATCHER-C MANGLE PRESS CATCHER-Cla1 Addison Awad PA PA Servando Rogers RN RN jd3 Cornell Dorantes MD MD [email or web address] Vivian Brooks RN RN kate Paris RN bp Daniela Sanchez RN [email or web address] Corrections: (The following items were deleted from the chart) 04/08 15:41 15:40 Allergies: NKDA; jd3 jd3 20:46 20:45 DR Gracie javed cp 22:05 20:46 DR Gracie javed kate 04/09 21:30 04/08 21:00 Physician consultation: was contacted at 21:00, regarding regarding cp transfer, to [facility]. patient's condition, accepting physician will be DR Fawn cp
[2022-04-08 22:10] VITALS: TEMP 98.7
[2022-04-08 22:13] VITALS: O2SAT 100
[2022-04-08 22:16] VITALS: BP 184/89
--- NOTE | 2022-04-09 10:05 | EKG ---
Test Date: 2022-04-08 Test Time: 15:50:02 Independent Beauty Consultant: ROBSON MEASUREMENT RESULTS: Intervals: Rate: 92 OK: 142 QRSD: 90 QT: 400 QTc: 494 [place]: P: 59 OK: 142 QRS: 68 T: 60 INTERPRETIVE STATEMENTS: Normal sinus rhythm Left atrial enlargement Prolonged QT Abnormal ECG No previous ECG available for comparison Electronically Signed On 04-09-22 10:02:39 CDT by Phil Rojas
== END 2022-04-08 22:05 | disposition short-term general hospital (02) ==
LOC: ER 14:48
DX: G40.89 Other seizures (principal); E11.22 Type 2 diabetes mellitus with diabetic chronic kidney disease; E11.65 Type 2 diabetes mellitus with hyperglycemia; I12.0 Hypertensive chronic kidney disease with stage 5 chronic kidney disease or end stage renal disease; N18.5 Chronic kidney disease, stage 5; Z99.2 Dependence on renal dialysis; Z79.82 Long term (current) use of aspirin
CPT/HCPCS: 96365; 93005; 85025; 80048; 36415; 83735; 85610; 82947; 80076; 84484; 83880; 70450 ×2; 72125; 71045; 96375; 99285; J0360 ×2; J1815 ×2; J1953

== ENCOUNTER 2022-07-02 21:10 | Emergency (ER) | payer OTHER ==
--- OUTSIDE RECORDS SUMMARY | 2022-07-02 21:17 | XMS REPORT | Continuity of Care Document ---
:1960 Author Organization [facility] t Address [address] [place] [address] Care Team Providers Name Role Phone ELOISA SUAREZ Primary Care Physician Unavailable KATHERIN Attending Clinician Unavailable Helena LOYA, Angel Walker Attending Clinician Unavailable SARAH BETH RAMOS Attending Clinician Unavailable Randy Bowman MD Attending Clinician Maddie Christianson DO Attending Clinician Sarah Beth Ramos MD Attending Clinician Eduardo-Sueo_A_AH Attending Clinician Unavailable KATHERIN Admitting Clinician Unavailable MADDIE CHRISTIANSON Admitting Clinician Unavailable Maddie Christianson DO Admitting Clinician Eduardo-Lukasz_A_PEDRO Admitting Clinician Unavailable Payers Payer Name Policy Type Policy Number Effective Date Expiration Date S [facility] [id number] 2021 (MEDICARE 00:00:00 REPLACEMENT HMO) [facility] [id number] 2019 [id number] (MEDICARE 00:00:00 REPLACEMENT/ADVANTA GE - HMO) Problems Condition Condition Condition Status Onset Resolution Last Treating Co mments Source Name Details Category Date Date Treatment Clinician Date Seizure Seizure Disease Active Univers 5-15 ity of 00:00: [place] [address] Medical Branch 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 U nivers protein-ca protein-ca 5-03 it y of yessica yessica 00:00: [place] malnutriti malnutriti 00 Me dical on on Branch Status Status Disease Active Univers epilepticu epilepticu 4-29 it y of s s 00:00: [address] Allergies, Adverse Reactions, Alerts Allergy Allergy Status Severity Reaction(s) Onset Inactive Treating Comm ents Source Name Type Date Date Clinician No Known DA Active U [facility] Allergie 06-11 [place] s 00:00: [address] No Known DA Active U [facility] Drug 06-02 [place] 00:00: [address] No Known DA Active U [facility] Contrast 05-28 [place] 00:00: [address] No Known DA Active U [facility] Drug 05-28 [place] 00:00: [address] No Known DA Active U [facility] Food 05-28 [place]erg[place] 00:00: [address] No Known DA Active U 2007-0 [facility] Other 05-28 [place] Allerg[place] 00:00: [address] NO KNOWN Drug Active Univers ALLERGIE Class ity of S [facility] Social History Social Habit Start Date Stop Date Quantity Comments Source Exposure to 2022-03-30 2022-04-09 Not sure [facility] SARS-CoV-2 (event) 00:00:00 10:23:00 Medica l Branch Tobacco use and 2022-04-09 2022-04-09 Never used [facility] exposure 00:00:00 00:00:00 Medical [place] Sex Ass[birth year] [facility] 00:00:00 00:00:00 Medical Branch Smoking Status Start Date Stop Date Source Never smoker [facility] Medications Ordered Filled Start Stop Current Ordering Indication Dosage Frequency Signature Comments Components Source Medication Medication Date Date Medication? Clinician (SIG) Name Name phenytoin Yes 300mg 300 mg, Univ ers Extended 5-18 Oral, QHS, ity o f (DILANTIN 02:00: First dose [place] SALDAÑA) 00 on e Medical capsule 300 04/10/22 at Br anch mg 2100, Until Discontinu ed, Routine ferrous Yes 325mg Take 325 Unive rs sulfate 325 5-17 mg by ity of mg (65 mg 20:18: mouth 2 [place] iron) 08 (two) Medical tablet times Branch daily. spironolact Yes 50mg Take 50 mg Univers one 50 mg 5-17 by mouth 2 ity of tablet 20:18: (two) [place] [address] times Medical daily. Branch carvediloL Yes 6.25mg Take 6.25 Univers 6.25 mg 5-17 mg by ity of tablet 20:18: mouth 2 [place] [address] (two) Medical times Branch daily with meals. atorvastati Yes 20mg Take 20 mg Univers n 20 mg 5-17 by mouth ity of tablet 20:18: at [place] [address] bedtime. Medical Branch doxazosin 2 Yes 2mg Take 2 mg U nivers mg tablet 5-17 by mouth ity of 20:18: daily. [place] [address] Medical Branch ferrous Yes 325mg Take 325 Unive rs sulfate 325 5-17 mg by ity of mg (65 mg 20:18: mouth 2 [place] iron) 08 (two) Medical tablet times Branch daily. spironolact Yes 50mg Take 50 mg Univers one 50 mg 5-17 by mouth 2 ity of tablet 20:18: (two) [place] [address] times Medical daily. Branch carvediloL Yes 6.25mg Take 6.25 Univers 6.25 mg 5-17 mg by ity of tablet 20:18: mouth 2 [place] [address] (two) Medical times Branch daily with meals. atorvastati 0 Yes 20mg Take 20 mg Univers n 20 mg 5-17 by mouth ity of tablet 20:18: at [place] [address] bedtime. Medical Branch doxazosin 2 Yes 2mg Take 2 mg U nivers mg tablet 5-17 by mouth ity of 20:18: daily. [place] 08 Medical Branch fosphenytoi 2021- No 15mg{ph 930 mg PE Univers n (CEREBYX) -10 04-17 enytoin (15 mg it y of 930 mg PE 20:15: 22:39 'equiva PE/kg ?62 [place] in NaCl 00 :00 lent}/k kg), IV Medica l 0.9% (NS) g Piggyback, Bran ch piggyback ONCE, 1 dose, On Sat04/10/22 at 1515, Administer over 30 Minutes, 100 mL metoprolol 2021- No 50mg Take 50 mg Univers succinate 04-10-17 by mouth ity o f XL 50 mg 24 14:26: 00:00 daily. [place] hr tablet 33 :00 [facility] Branch NIFEdipine No 90mg Take 90 mg Univers ER 90 mg 04-10- by mouth ity of tablet 14:26: 00:00 daily. [place] 33 :00 [facility] Branch atorvastati Yes 20mg 20 mg, Univ ers n (LIPITOR) -17 Oral, QHS, it y of tablet 20 02:00: First dose [place] mg 00 on Sat [facility] 04/09/22 at Branch 2100, Until Discontinu ed, Routine sevelamer 2021- Yes [id number] 800mg Take 1 Univers 800 mg 5-17 08-16 tablet by ity of tablet 00:00: 04:59 mouth 3 [place] 00 :00 (three) Medical times [place] daily with meals for 90 days. phenytoin 2021- Yes [id number] 300mg Take 1 Univers Extended 5-17 08-16 capsule by ity of 300 mg ER 00:00: 04:59 mouth at [place] capsule 00 :00 bedtime Medical for 90 Branch days. lisinopriL 2021- Yes [id number] 20mg Take 1 Univers 20 mg 5-17 08-16 tablet by ity of tablet 00:00: 04:59 mouth [place] 00 :00 daily for Medical 90 days. Branch amLODIPine 2021- Yes [id number] 10mg Take 1 Univers 10 mg 5-17 08-16 tablet by ity of tablet 00:00: 04:59 mouth [place] 00 :00 daily for Medical 90 days. Branch furosemide 2021- Yes [id number] 20mg Take 1 Univers 20 mg 5-17 08-16 tablet by ity of tablet 00:00: 04:59 mouth [place] 00 :00 daily for Medical 90 days. Branch glimepiride 2021- Yes [id number] 4mg Take 1 Univers 4 mg tablet 5-17 08-16 tablet by it y of 00:00: 04:59 mouth [place] 00 :00 daily with Medical breakfast Branch for 90 days. amiodarone 2021- Yes [id number] 100mg Take 1 Univers 100 mg 5-17 08-16 tablet by ity of tablet 00:00: 04:59 mouth [place] 00 :00 daily for Medical 90 days. Branch sevelamer 2021- Yes [id number] 800mg Take 1 Univers 800 mg 5-17 08-16 tablet by ity of tablet 00:00: 04:59 mouth 3 [place] 00 :00 (three) Medical times Branch daily with meals for 90 days. phenytoin 2021- Yes [id number] 300mg Take 1 Univers Extended 5-17 08-16 capsule by ity of 300 mg ER 00:00: 04:59 mouth at [place] capsule 00 :00 bedtime Medical for 90 Branch days. lisinopriL 2021- Yes [id number] 20mg Take 1 Univers 20 mg 5-17 08-16 tablet by ity of tablet 00:00: 04:59 mouth [place] 00 :00 daily for Medical 90 days. Branch amLODIPine 2021- Yes [id number] 10mg Take 1 Univers 10 mg 5-17 08-16 tablet by ity of tablet 00:00: 04:59 mouth [place] 00 :00 daily for Medical 90 days. Branch furosemide 2021- Yes [id number] 20mg Take 1 Univers 20 mg 5-17 08-16 tablet by ity of tablet 00:00: 04:59 mouth [place] 00 :00 daily for Medical 90 days. Branch glimepiride 2021- Yes [id number] 4mg Take 1 Univers 4 mg tablet 5-17 08-16 tablet by it y of 00:00: 04:59 mouth [place] 00 :00 daily with Medical breakfast Branch for 90 days. amiodarone 2021- Yes [id number] 100mg Take 1 Univers 100 mg 5-17 08-16 tablet by ity of tablet 00:00: 04:59 mouth [place] 00 :00 daily for Medical 90 days. [place] sevelamer Yes 800mg 800 mg, Univ ers (RENVELA) 04-09 Oral, TID ity o f tablet 800 22:00: MEALS, [place] mg 00 First dose Medical on [facility] 04/09/22 at 1700, Until Discontinu ed, Routine KCL 2021- No 40meq 40 mEq, Univers (KLOR-CON 04-09- Oral, ity of M20) tablet 20:30: 20:04 ONCE, 1 [place] 40 mEq 00 :00 dose, On Medical [facility] 04/09/22 at 1530, Routine NIFEdipine Yes 90mg 90 mg, Unive rs ER tablet 04-09 Oral, ity of 90 mg 14:00: DAILY, [place] 00 First dose Medical on [facility] 04/09/22 at 0900, Until Discontinu ed, Routine levETIRAcet 2021- No 500mg 500 mg, U nivers am (KEPPRA) 04-09 Oral, QAM, i ty of tablet 500 14:00: 15:02 First dose [place] mg 00 :12 on [facility] 04/09/22 at Branch 0900, Until Discontinu ed, Routine spironolact Yes 50mg 50 mg, Univ ers one 04-09 Oral, BID, ity of (ALDACTONE) 13:00: First dose [place] tablet 50 00 (after Medical mg last Branch reorder) on [facility] 04/09/22 at 0800, Until Discontinu ed, Routine carvediloL Yes 6.25mg 6.25 mg, U nivers (COREG) -16 Oral, BID ity of tablet 6.25 13:00: MEALS, [place] mg 00 First dose Medical on [facility] 04/09/22 at 0800, Until Discontinu ed, Routine heparin Yes 5000U 5,000 Univers (porcine) -16 Units, ity of injection 13:00: Subcutaneo [place] 5,000 Units 00 us, Q12H, Med ical First dose Branch on [facility] 04/09/22 at 0800, Until Discontinu ed, Routine NaCl 0.9% 0 Yes 10mL 10 mL, Univer s (NS) 5-16 Slow IV ity of injection 05:18: Push, PRN, [place] 10 mL 52 Starting Medical on [place] Branch 04/09/22 at 0018, Until Discontinu ed, Routine, line maintenanc e lidocaine 2021-0 Yes 5mL 5 mL, Univers 1% (PF) 16 Subcutaneo ity of (XYLOCAINE) 05:18: us, PRN, [place] injection 5 52 Starting Medi denae mL on Mon Branch 04/09/22 at 0018, Until Discontinu ed, Routine, Local anesthesia LORazepam 2021-0 Yes 2mg 2 mg, Slow Un samantha (ATIVAN) 16 IV Push, ity of injection 2 05:05: PRN - SEE [place] mg 31 INSTRUCTIO Medical NS, Branch Starting on 04/09/22 at 0005, Until Discontinu ed, Routine, Seizures Sliding 2021-0 Yes Subcutaneo Univ ers Scale 5-16 us, Q4H, ity of Insulin - 05:00: First dose [place] Lispro 00 on [facility] Medical (HumaLOG) + 04/09/22 at Br anch Fsbg 0000, Testing Until Discontinu ed, Routine hydralAZINE 0 Yes 10mg 10 mg, Univ ers (APRESOLINE 16 Slow IV ity o f ) injection 04:46: Push, [place] 10 mg 34 Q4HPRN, Medical Starting Branch on [place] 04/08/22 at 2346, Until Discontinu ed, Routine, DBP=>10 0; SBP=>180 glucagon 2021-0 Yes 1mg 1 mg, Univers (GLUCAGEN 16 Intramuscu ity of DIAGNOSTIC 04:28: lar, PRN, [place] KIT) 00 Starting Medical injection 1 on [facility] mg 04/08/22 at 2328, Until Discontinu ed, MARIKA, Blood Glucose < or = 70 mg/dL and patient is unable to swallow or has mental changes. dextrose 50 2021-0 Yes 25mL 25 mL, Univ ers % in water 16 Slow IV ity of (D50W) 04:28: Push, PRN, [place] injection 00 Starting Medica l 25 mL on [place] Branch 04/08/22 at 2328, Until Discontinu ed, MARIKA, Blood Glucose < or = 70 mg/dL and patient is unable to swallow or has mental status changes. amLODIPine 10mg Take 10 mg Univers 10 mg 04-09 by mouth ity of tablet 00:32: 00:00 daily. [place] 49 :00 Medical Branch lisinopriL No 20mg Take 20 mg Univers 20 mg 04-09 by mouth ity of tablet 00:32: 00:00 daily. [place] 49 :00 Medical Branch amiodarone 2021- No Take by Uni vers 100 mg 04-09 mouth. ity of tablet 00:32: 00:00 [place] 49 :00 Medical Branch furosemide 2021- No Take by Uni vers (LASIX) 20 04-09 mouth. ity of mg tablet 00:32: 00:00 [place] 49 :00 Medical Branch glimepiride No 4mg Take 4 mg Univers 4 mg tablet 04-09 by mouth ity of 00:32: 00:00 daily with [place] 49 :00 breakfast. Medical Branch phenytoin No [id number] 100mg Take 1 Univers Extended 03-28 capsule by ity of 100 mg 00:00: 00:00 mouth [place] capsule 00 :00 every 8 Medical (eight) Branch hours. Vital Signs Vital Name Observation Time Observation Value Comments Source Diastolic blood 2022-04-10 21:08:00 97 mm[Hg] [facility] Heart rate 2022-04-10 21:08:00 80 /min [facility] Body temperature 2022-04-10 21:08:00 36.67 Ping [facility] [place] [facility] Res[facility] rate 2022-04-10 21:08:00 18 /min General acute hospital Oxygen saturation in 2022-04-10 21:08:00 93 /min [facility] Arterial blood by [facility] Pulse oximetry Branch Systolic blood 2022-04-10 21:08:00 195 mm[Hg] Univer sity of pressure [facility] Body weight 2022-04-09 19:34:[address] [facility] BMI 2022-04-09 19:34:00 23.46 kg/m2 [facility] Body height 2022-04-09 15:28:[address] [facility] Procedures Procedure Date / Time Performing Clinician Source Performed POCT GLUCOSE 2022-04-10 21:04:00 Sarah Beth Ramos [facility] (AUTOMATED) Medical Branch POCT GLUCOSE 2022-04-10 16:39:00 Sarah Beth Ramos [facility] (AUTOMATED) [facility] Branch POCT GLUCOSE 2022-04-10 13:21:00 Sarah Beth Ramos [facility] (AUTOMATED) [facility] CBC WITH DIFF 2022-04-10 09:55:00 Deloris [facility] MAGNESIUM 2022-04-10 09:55:00 [facility] 2022-04-10 09:55:[address] [facility] BASIC METABOLIC PANEL 2022-04-10 09:55[facility], CL, CO2, Medical Branch GLUCOSE, BUN, CREATININE, CA) POCT GLUCOSE 2022-04-10 09:39:00 Sarah Beth Ramos [facility] (AUTOMATED) Medical Branch POCT GLUCOSE 2022-04-10 05:44:00 Sarah Beth Ramos [facility] (AUTOMATED) Medical Branch POCT GLUCOSE 2022-04-10 02:55:00 Sarah Beth Ramos [facility] (AUTOMATED) Medical Branch POCT GLUCOSE 2022-04-09 22:03:00 Maddie Christianson [facility] (AUTOMATED) Medical Branch TROPONIN I 2022-04-09 18:59:00 Susanna Princessa [facility] BASIC METABOLIC PANEL 2022-04-09 18:59:00 Cameron Thurman [facility] (NA, K, CL, CO2, Medical Branch GLUCOSE, BUN, CREATININE, CA) POCT GLUCOSE 2022-04-09 16:56:00 Randy Bowman [facility] (AUTOMATED) Medical Branch TROPONIN I 2022-04-09 14:42:00 [facility] POCT GLUCOSE 2022-04-09 13:10:00 [facility] POCT GLUCOSE 2022-04-09 10:17:00 Gracie [facility] (AUTOMATED) [facility] HB ECG ROUTINE & RHYTHM 2022-04-09 08:02:07 Suresh [facility] POCT GLUCOSE 2022-04-09 05:32:00 [facility] CBC WITH DIFF 2022-04-09 05:22:00 [facility] PROTHROMBIN TIME / INR 2022-04-09 05:22:00 [facility] MRSA / MSSA SCREEN BY 2022-04-09 05:22:00 [facility] PCR, NARES [facility] Branch PHOSPHORUS 2022-04-09 05:22:00 [facility] CREATINE KINASE 2022-04-09 05:22:00 [facility] 2022-04-09 05:22:00 [facility] TROPONIN I 2022-04-09 05:22:00 [facility] HEPATIC FUNCTION PANEL 2022-04-09 05:22:00 Mily [facility] ([id number]) (ALB,T.PRO,BILI Medical Branch T,BU/BC,ALT,AST,ALK PHOS) BASIC METABOLIC PANEL 2022-04-09 05:22:00 [facility] (NA, K, CL, CO2, Medical Branch GLUCOSE, BUN, CREATININE, CA) PHENYTOIN FREE 2022-04-09 05:22:00 [facility] Encounters Start End Encounter Admission Attending Care Care Encounter Source Date/Time Date/Time Type Type Clinicians Facility Department ID 2019-10-23 Inpatient U [facility] MED [id number] Mem oria 02:27:00 l Gonz[facility]lez [facility] 2022-06-11 2022-06-11 Outpatient ASHLEY CORONADO [facility] [id number] [place] 11:40:00 11:40:00 HN [id number] da [facility] Outre h Program 2022-04-11 2022-04-11 Transition MODESTA Malik [id number] Univers 00:00:00 00:00:00 of Care Angel Walker [id number] [facility] [id number] [facility] 403 Branch 2022-04-08 2022-04-10 Outpatient U PEDROT[facility] [id number] Univers 23:19:00 19:55:00 [facility] 2022-04-08 2022-04-10 [facility] StefanyZunilda ruffinzad WILFRED [id number] [facility] 23:19:00 19:55:00 Encounter Maddie Christianson [id number] ity [facility] 4.2.7.2.68 6 [place] [id number] [facility] 094 Branch 2021-05-20 2021-05-20 Outpatient DMG DMG [id number] [facility] 11:00:00 11:00:00 0626 Medica l Group 2020-01-13 2020-01-13 Outpatient Eduardo-Mbayo VFP VFP [address] [place] [address] 07:13:00 07:13:00 _A_AH [address]1439 Family Practic e 2020-01-13 2020-01-13 Outpatient Eduardo-Mbayo VFP VFP [id number] 07:13:00 07:13:00 _A_AH [address]5916 Family Practic e 2020-01-13 2020-01-13 Outpatient Eduardo-Mbayo VFP VFP [id number] [facility] 07:13:00 07:13:00 _A_AH 56533 Family Practic e Results Test Description Test Time Test Comments Results Result Comments Source POCT GLUCOSE (AUTOMATED) 2022-04-10 21:15:48 Test Item Value Reference Range Interpretation Comme nts POCT GLU (test code = 4676501265) 164 mg/dL 70-110 H Lab Interpretation (test code = 76431-7) Abnormal [facility] GLUCOSE (AUTOMATED)2022-04-10 16:44:44 Test Item Value Reference Range Interpretation Comments POCT GLU (test code = 2214575768) 169 mg/dL 70-110 H Lab Interpretation (test code = Abnormal 28630-8) [facility] GLUCOSE (AUTOMATED)2022-04-10 13:22:32 Test Item Value Reference Range Interpretation Comments POCT GLU (test code = 0127582835) 140 mg/dL 70-110 H Lab Interpretation (test code = Abnormal 28185-3) [facility] [id number] 11:45:33 Test Item Value Reference Interpretation Comments Range TROPONIN I (test 0.154 ng/mL See_Comment H [Automated code = 2605628014) message] The system which generated this result transmitted reference range : <=0.034. The reference range was not used to interpret this result as normal/abnormal . ALAINA (test code = Reference (Normal) ALAINA) Range (defined by the 99th percentile reference limit): <= 0.034 ng/mL Note: Cardiac troponin begins to rise 3-4 hours after the onset of ischemia. Repeat in 4-6 hours if the sample was drawn within 3-4 hours of the onset of the symptom and found normal. Diagnosis of myocardial injury is made with acute changes in cTn concentrations with at least one serial sample above the 99th percentile upper reference limit (URL), taken together with the patient's clinical presentation. Biotin has been reported to cause a negative bias, interpret results relative to patient's use of biotin. Lab Interpretation Abnormal (test code = 96888-9) [facility] METABOLIC PANEL (NA, K, CL, CO2, GLUCOSE, BUN, CREATININE, CA)2022-04-10 11:35:14 Test Item Value Reference Range Interpretation Comments NA (test code = 136 mmol/L 135-145 7722175243) K (test code = 4.8 mmol/L 3.5-5.0 2334169148) CL (test code = 102 mmol/L 98-108 4725473808) CO2 TOTAL (test code = 22 mmol/L 23-31 L 4960044064) AGAP (test code = 2-16 3498182482) BUN (test code = 24 mg/dL 7-23 H 8970384890) GLUCOSE (test code = 189 mg/dL 70-110 H 0890136764) CREATININE (test code = 4.98 mg/dL 0.50-1.04 H 2773817211) CALCIUM (test code = 9.3 mg/dL 8.6-10.6 8586431344) eGFR (test code = mL/min/1.73m2 0397057517) ALAINA (test code = ALAINA) Association of Glomerular Filtration Rate (GFR) and Staging of Kidney Disease* + --+ --+ ------+| GFR (mL/min/1.73 m2) ?| With Kidney Damage ?| ?Without Kidney Damage+ --------+ --------+ +| ?>90 ?| ?Stage one ?| ? Normal ?+ ---+ ---+ -------+| ?60-89 ?| ?Stage two ?| ? Decreased GFR ? + --+ --+ ------+| ?30-59 ?| ?Stage three ?| ? Stage three ? + --+ --+ ------+| ?15-29 ?| ?Stage four ? | ? Stage four ?+ ---+ ---+ -------+| ?<15 (or dialysis) ? ?| ?Stage five ? | ? Stage five ?+ ---+ ---+ -------+ *Each stage assumes the associated GFR level has been in effect for at least three months. ?Stages 1 to 5, with or without kidney disease, indicate chronic kidney disease. Notes: Determination of stages one and two (with eGFR >59mL/min/1.73 m2) requires estimation of kidney damage for at least three months as defined by structural or functional abnormalities of the kidney, manifested by either:Pathological abnormalities or Markers of kidney damage (including abnormalities in the composition of the blood or urine or abnormalities in imaging tests). Lab Interpretation Abnormal (test code = 97448-8) [facility] 11:29:11 Test Item Value Reference Range Interpretation Comments MAGNESIUM (test code = 2719994500) 2.1 mg/dL 1.7-2.4 Lab Interpretation (test code = Normal 48426-2) [facility] WITH [id number] 10:26:03 Test Item Value Reference Range Interpretation Comments WBC (test code = See_Comment [Automated 6690-2) message] The sy stem which generated this result transmitted reference range : 4.30 - 11.10 10*3/?L. The reference range was not used to interpret this result as normal/abnormal . RBC (test code = See_Comment L [Automated 789-8) message] The sy stem which generated this result transmitted reference range : 3.93 - 5.25 10*6/?L. The reference range was not used to interpret this result as normal/abnormal . HGB (test code = 9.5 g/dL 11.6-15.0 L 718-7) HCT (test code = 29.4 % 35.7-45.2 L 4544-3) MCV (test code = 77.8 fL 80.6-95.5 L 787-2) MCH (test code = 25.1 pg 25.9-32.8 L 785-6) MCHC (test code = 32.3 g/dL 31.6-35.1 786-4) RDW-SD (test code = 56.6 fL 39.0-49.9 H 28170-8) RDW-CV (test code = 20.2 % 12.0-15.5 H 788-0) PLT (test code = See_Comment [Automated 777-3) message] The sy stem which generated this result transmitted reference range : 166 - 358 10*3/ ?L. The reference r henry was not used to interpret this result as normal/abnormal . MPV (test code = 11.2 fL 9.5-12.9 90399-0) NRBC/100 WBC (test See_Comment [Automat ed code = 9437767756) message] The system which generated this result transmitted reference range : 0.0 - 10.0 /100 WBCs. The refer ence range was not u sed to interpret th is result as normal/abnormal . NRBC x10^3 (test code <0.01 See_Comment [Auto mated = 4559987791) message] The s ystem which generated this result transmitted reference range : 10*3/?L. The reference range was not used to interpret this result as normal/abnormal . GRAN MAT (NEUT) % 76.8 % (test code = 770-8) IMM GRAN % (test code 0.40 % = 5443267072) LYMPH % (test code = 14.1 % 736-9) MONO % (test code = 7.6 % 5905-5) EOS % (test code = 0.6 % 713-8) BASO % (test code = 0.5 % 706-2) GRAN MAT x10^3(ANC) 7.18 10*3/uL 1.88-7.09 H (test code = 6430503743) IMM GRAN x10^3 (test 0.04 10*3/uL 0.00-0.06 code = 6755443513) LYMPH x10^3 (test code 1.32 10*3/uL 1.32-3.29 = 731-0) MONO x10^3 (test code 0.71 10*3/uL 0.33-0.92 = 742-7) EOS x10^3 (test code = 0.06 10*3/uL 0.03-0.39 711-2) BASO x10^3 (test code 0.05 10*3/uL 0.01-0.07 = 704-7) Lab Interpretation Abnormal (test code = 61031-1) [facility] GLUCOSE (AUTOMATED)2022-04-10 10:18:37 Test Item Value Reference Range Interpretation Comments POCT GLU (test code = 1810544031) 182 mg/dL 70-110 H Lab Interpretation (test code = Abnormal 44231-3) [facility] GLUCOSE (AUTOMATED)2022-04-10 10:18:37 Test Item Value Reference Range Interpretation Comments POCT GLU (test code = 7114808651) 205 mg/dL 70-110 H Lab Interpretation (test code = Abnormal 35302-0) [facility] GLUCOSE (AUTOMATED)2022-04-10 05:47:57 Test Item Value Reference Range Interpretation Comments POCT GLU (test code = 0508653752) 157 mg/dL 70-110 H Lab Interpretation (test code = Abnormal 75595-4) [facility] GLUCOSE (AUTOMATED)2022-04-09 22:04:42 Test Item Value Reference Range Interpretation Comments POCT GLU (test code = 7062158635) 229 mg/dL 70-110 H Lab Interpretation (test code = Abnormal 54003-7) [facility] [id number] 19:35:28 Test Item Value Reference Interpretation Comments Range TROPONIN I (test 0.287 ng/mL See_Comment H [Automated code = 6518785674) message] The system which generated this result transmitted reference range : <=0.034. The reference range was not used to interpret this result as normal/abnormal . ALAINA (test code = Reference (Normal) ALAINA) Range (defined by the 99th percentile reference limit): <= 0.034 ng/mL Note: Cardiac troponin begins to rise 3-4 hours after the onset of ischemia. Repeat in 4-6 hours if the sample was drawn within 3-4 hours of the onset of the symptom and found normal. Diagnosis of myocardial injury is made with acute changes in cTn concentrations with at least one serial sample above the 99th percentile upper reference limit (URL), taken together with the patient's clinical presentation. Biotin has been reported to cause a negative bias, interpret results relative to patient's use of biotin. Lab Interpretation Abnormal (test code = 35978-6) [facility] (NA, K, CL, CO2, GLUCOSE, BUN, CREATININE, CA)2022-04-09 19:19:43 Test Item Value Reference Range Interpretation Comments NA (test code = 137 mmol/L 135-145 4669378654) K (test code = 3.2 mmol/L 3.5-5.0 L 6638083197) CL (test code = 101 mmol/L 98-108 1467027588) CO2 TOTAL (test code = 26 mmol/L 23-31 0212945689) AGAP (test code = 2-16 2574244705) BUN (test code = 14 mg/dL 7-23 0967376239) GLUCOSE (test code = 113 mg/dL 70-110 H 4083509941) CREATININE (test code = 2.68 mg/dL 0.50-1.04 H 6033902780) CALCIUM (test code = 9.6 mg/dL 8.6-10.6 6459652296) eGFR (test code = mL/min/1.73m2 8160152236) ALAINA (test code = ALAINA) Association of Glomerular Filtration Rate (GFR) and Staging of Kidney Disease* + --+ --+ ------+| GFR (mL/min/1.73 m2) ?| With Kidney Damage ?| ?Without Kidney Damage+ --------+ --------+ +| ?>90 ?| ?Stage one ?| ? Normal ?+ ---+ ---+ -------+| ?60-89 ?| ?Stage two ?| ? Decreased GFR ? + --+ --+ ------+| ?30-59 ?| ?Stage three ?| ? Stage three ? + --+ --+ ------+| ?15-29 ?| ?Stage four ? | ? Stage four ?+ ---+ ---+ -------+| ?<15 (or dialysis) ? ?| ?Stage five ? | ? Stage five ?+ ---+ ---+ -------+ *Each stage assumes the associated GFR level has been in effect for at least three months. ?Stages 1 to 5, with or without kidney disease, indicate chronic kidney disease. Notes: Determination of stages one and two (with eGFR >59mL/min/1.73 m2) requires estimation of kidney damage for at least three months as defined by structural or functional abnormalities of the kidney, manifested by either:Pathological abnormalities or Markers of kidney damage (including abnormalities in the composition of the blood or urine or abnormalities in imaging tests). Lab Interpretation Abnormal (test code = 30170-7) [facility]2022-04-09 17:08:07 Test Item Value Reference Range Interpretation Comments POCT GLU (test code = 1242719280) 103 mg/dL 70-110 Lab Interpretation (test code = Normal 29562-8) [facility] [id number] 15:19:58 Test Item Value Reference Interpretation Comments Range TROPONIN I (test 0.298 ng/mL See_Comment H [Automated code = 4130946071) message] The system which generated this result transmitted reference range : <=0.034. The reference range was not used to interpret this result as normal/abnormal . ALAINA (test code = Reference (Normal) ALAINA) Range (defined by the 99th percentile reference limit): <= 0.034 ng/mL Note: Cardiac troponin begins to rise 3-4 hours after the onset of ischemia. Repeat in 4-6 hours if the sample was drawn within 3-4 hours of the onset of the symptom and found normal. Diagnosis of myocardial injury is made with acute changes in cTn concentrations with at least one serial sample above the 99th percentile upper reference limit (URL), taken together with the patient's clinical presentation. Biotin has been reported to cause a negative bias, interpret results relative to patient's use of biotin. Lab Interpretation Abnormal (test code = 16663-4) [facility] GLUCOSE (AUTOMATED)2022-04-09 13:11:11 Test Item Value Reference Range Interpretation Comments POCT GLU (test code = 7250016234) 219 mg/dL 70-110 H Lab Interpretation (test code = Abnormal 79541-3) [facility] [id number] 11:57:31 Test Item Value Reference Range Interpretation Comments CK (test code = 0982974147) 68 U/L 33-194 Lab Interpretation (test code = Normal 71179-7) [facility] GLUCOSE (AUTOMATED)2022-04-09 10:19:18 Test Item Value Reference Range Interpretation Comments POCT GLU (test code = 9072756900) 177 mg/dL 70-110 H Lab Interpretation (test code = Abnormal 90383-1) [facility] [id number] 06:47:39 Test Item Value Reference Range Interpretation Comments PHENY FREE (test code <0.5 1.0-2.0 L = 5406063248) ALAINA (test code = ALAINA) Toxic Range: ? Greater than 2.5 ug/mL Test developed and characteristics determined by [facility] Laboratory Services. Lab Interpretation Abnormal (test code = 69074-7) [facility] [id number] 06:43:44 Test Item Value Reference Interpretation Comments Range TROPONIN I (test 0.271 ng/mL See_Comment H [Automated code = 4495833224) message] The system which generated this result transmitted reference range : <=0.034. The reference range was not used to interpret this result as normal/abnormal . ALAINA (test code = Reference (Normal) ALAINA) Range (defined by the 99th percentile reference limit): <= 0.034 ng/mL Note: Cardiac troponin begins to rise 3-4 hours after the onset of ischemia. Repeat in 4-6 hours if the sample was drawn within 3-4 hours of the onset of the symptom and found normal. Diagnosis of myocardial injury is made with acute changes in cTn concentrations with at least one serial sample above the 99th percentile upper reference limit (URL), taken together with the patient's clinical presentation. Biotin has been reported to cause a negative bias, interpret results relative to patient's use of biotin. Lab Interpretation Abnormal (test code = 33160-0) [facility]berg[facility] [id number] 06:30:50 Test Item Value Reference Range Interpretation Comments MAGNESIUM (test code = 7899599513) 2.0 mg/dL 1.7-2.4 Lab Interpretation (test code = Normal 14676-2) [facility]osph[facility] [id number] 06:30:50 Test Item Value Reference Range Interpretation Comments PHOSPHORUS (test code = 6890178704) 6.8 mg/dL 2.5-5.0 H Lab Interpretation (test code = Abnormal 71954-3) [facility] Function [facility] (ALB, T.PRO, BILI T, BU/BC, ALT, AST, ALK, PHOS)2022-04-09 06:30:50 Test Item Value Reference Range Interpretation Comments TOTAL BILI (test code = 1024459130) 0.6 mg/dL 0.1-1.1 BILI UNCON (test code = 6580382374) 0.1 mg/dL 0.1-1.1 BILI CONJ (test code = 9451893484) 0.0 mg/dL 0.0-0.3 T PROTEIN (test code = 6385366783) 6.5 g/dL 6.3-8.2 ALBUMIN (test code = 0657754341) 3.5 g/dL 3.5-5.0 ALK PHOS (test code = 8674873150) 211 U/L 34-122 H ALTv (test code = 1742-6) 39 U/L 5-35 H AST(SGOT) (test code = 7599206427) 33 U/L 13-40 Lab Interpretation (test code = Abnormal 63033-2) [facility] (NA, K, CL, CO2, Glucose, BUN, Creatinine, CA)2022-04-09 06:30:49 Test Item Value Reference Range Interpretation Comments NA (test code = 136 mmol/L 135-145 1913339441) K (test code = 4.5 mmol/L 3.5-5.0 3044980463) CL (test code = 96 mmol/L 98-108 L 9913488028) CO2 TOTAL (test code = 27 mmol/L 23-31 1547466107) AGAP (test code = 2-16 3777292138) BUN (test code = 37 mg/dL 7-23 H 4551171107) GLUCOSE (test code = 114 mg/dL 70-110 H 1261642430) CREATININE (test code = 6.55 mg/dL 0.50-1.04 H 0693440657) CALCIUM (test code = 9.2 mg/dL 8.6-10.6 3544497752) eGFR (test code = mL/min/1.73m2 6742558216) ALAINA (test code = ALAINA) Association of Glomerular Filtration Rate (GFR) and Staging of Kidney Disease* + --+ --+ ------+| GFR (mL/min/1.73 m2) ?| With Kidney Damage ?| ?Without Kidney Damage+ --------+ --------+ +| ?>90 ?| ?Stage one ?| ? Normal ?+ ---+ ---+ -------+| ?60-89 ?| ?Stage two ?| ? Decreased GFR ? + --+ --+ ------+| ?30-59 ?| ?Stage three ?| ? Stage three ? + --+ --+ ------+| ?15-29 ?| ?Stage four ? | ? Stage four ?+ ---+ ---+ -------+| ?<15 (or dialysis) ? ?| ?Stage five ? | ? Stage five ?+ ---+ ---+ -------+ *Each stage assumes the associated GFR level has been in effect for at least three months. ?Stages 1 to 5, with or without kidney disease, indicate chronic kidney disease. Notes: Determination of stages one and two (with eGFR >59mL/min/1.73 m2) requires estimation of kidney damage for at least three months as defined by structural or functional abnormalities of the kidney, manifested by either:Pathological abnormalities or Markers of kidney damage (including abnormalities in the composition of the blood or urine or abnormalities in imaging tests). Lab Interpretation Abnormal (test code = 39698-9) [facility]bergProthrombin Time / [id number] 05:44:26 Test Item Value Reference Range Interpretation Comments PROTIME PATIENT (test See_Comment [Auto mated message] code = 5964-2) The system wh ich generated this result transmitted ref erence range: 10.1 - 1 2.6 Seconds. The re ference range was not u sed to interpret this result as normal/abnor mal. INR (test code = 6301-6) Nor mal INR <1.1; Warfarin Therap eutic range 2.0 to 3. 0 or 2.5 to 3.5, dep ending upon the indica tions. Lab Interpretation (test Normal code = 82773-1) [facility]bergCBC with [id number] 05:43:06 Test Item Value Reference Range Interpretation Comments WBC (test code = See_Comment [Automated 6690-2) message] The sy stem which generated this result transmitted reference range : 4.30 - 11.10 10*3/?L. The reference range was not used to interpret this result as normal/abnormal . RBC (test code = See_Comment L [Automated 789-8) message] The sy stem which generated this result transmitted reference range : 3.93 - 5.25 10*6/?L. The reference range was not used to interpret this result as normal/abnormal . HGB (test code = 9.6 g/dL 11.6-15.0 L 718-7) HCT (test code = 29.8 % 35.7-45.2 L 4544-3) MCV (test code = 78.2 fL 80.6-95.5 L 787-2) MCH (test code = 25.2 pg 25.9-32.8 L 785-6) MCHC (test code = 32.2 g/dL 31.6-35.1 786-4) RDW-SD (test code = 55.8 fL 39.0-49.9 H 46667-7) RDW-CV (test code = 19.9 % 12.0-15.5 H 788-0) PLT (test code = See_Comment [Automated 777-3) message] The sy stem which generated this result transmitted reference range : 166 - 358 10*3/ ?L. The reference r henry was not used to interpret this result as normal/abnormal . MPV (test code = 10.4 fL 9.5-12.9 48085-1) NRBC/100 WBC (test See_Comment [Automat ed code = 2554255675) message] The system which generated this result transmitted reference range : 0.0 - 10.0 /100 WBCs. The refer ence range was not u sed to interpret th is result as normal/abnormal . NRBC x10^3 (test code <0.01 See_Comment [Auto mated = 8335734428) message] The s ystem which generated this result transmitted reference range : 10*3/?L. The reference range was not used to interpret this result as normal/abnormal . GRAN MAT (NEUT) % 77.5 % (test code = 770-8) IMM GRAN % (test code 0.40 % = 4481697551) LYMPH % (test code = 14.1 % 736-9) MONO % (test code = 7.3 % 5905-5) EOS % (test code = 0.4 % 713-8) BASO % (test code = 0.3 % 706-2) GRAN MAT x10^3(ANC) 8.21 10*3/uL 1.88-7.09 H (test code = 9349754934) IMM GRAN x10^3 (test 0.04 10*3/uL 0.00-0.06 code = 3280691725) LYMPH x10^3 (test code 1.49 10*3/uL 1.32-3.29 = 731-0) MONO x10^3 (test code 0.77 10*3/uL 0.33-0.92 = 742-7) EOS x10^3 (test code = 0.04 10*3/uL 0.03-0.39 711-2) BASO x10^3 (test code 0.03 10*3/uL 0.01-0.07 = 704-7) Lab Interpretation Abnormal (test code = 79481-6) [facility] GLUCOSE (AUTOMATED)2022-04-09 05:33:54 Test Item Value Reference Range Interpretation Comments POCT GLU (test code = 3711396778) 130 mg/dL 70-110 H Lab Interpretation (test code = Abnormal 43210-9) [facility] [id number] 11:48:00 Test Item Value Reference Range Interpretation Comments GLUCOSE BEDSIDE TESTING (test code 175 MG/DL 60-99 H = GLUBED) BASIC METABOLIC [id number] 07:36:00 Test Item Value Reference Range Interpretation [...] 8.8 MG/DL 8.4-10.2 N CA) CBC W/AUTO [id number] 07:01:00 Test Item Value Reference Range Interpretation [...] 0.00 K/mm3 0.0-0.1 N NRBC#) GLUCOSE BEDSIDE [id number] 06:05:00 Test Item Value Reference Range Interpretation Comments GLUCOSE BEDSIDE TESTING (test code 175 MG/DL 60-99 H = GLUBED) GLUCOSE BEDSIDE [id number] 21:34:00 Test Item Value Reference Range Interpretation Comments GLUCOSE BEDSIDE TESTING (test code 274 MG/DL 60-99 H = GLUBED) GLUCOSE BEDSIDE [id number] 16:05:00 Test Item Value Reference Range Interpretation Comments GLUCOSE BEDSIDE TESTING (test code 186 MG/DL 60-99 H = GLUBED) GLUCOSE BEDSIDE [id number] 11:29:00 Test Item Value Reference Range Interpretation Comments GLUCOSE BEDSIDE TESTING (test code 347 MG/DL 60-99 HH = GLUBED) GLUCOSE BEDSIDE [id number] 07:59:00 Test Item Value Reference Range Interpretation Comments GLUCOSE BEDSIDE TESTING (test code 325 MG/DL 60-99 HH = GLUBED) BASIC METABOLIC [id number] 05:42:00 Test Item Value Reference Range Interpretation [...] 8.8 MG/DL 8.4-10.2 N CA) CBC W/AUTO [id number] 05:16:00 Test Item Value Reference Range Interpretation [...] 0.00 K/mm3 0.0-0.1 N NRBC#) GLUCOSE BEDSIDE [id number] 20:28:00 Test Item Value Reference Range Interpretation Comments GLUCOSE BEDSIDE TESTING (test code 253 MG/DL 60-99 H = GLUBED) GLUCOSE BEDSIDE [id number] 16:21:00 Test Item Value Reference Range Interpretation Comments GLUCOSE BEDSIDE TESTING (test code 237 MG/DL 60-99 H = GLUBED) GLUCOSE BEDSIDE [id number] 11:29:00 Test Item Value Reference Range Interpretation Comments GLUCOSE BEDSIDE TESTING (test code 187 MG/DL 60-99 H = GLUBED) GLUCOSE BEDSIDE [id number] 11:03:00 Test Item Value Reference Range Interpretation Comments GLUCOSE BEDSIDE TESTING (test code 202 MG/DL 60-99 H = GLUBED) GLUCOSE BEDSIDE [id number] 20:30:00 Test Item Value Reference Range Interpretation Comments GLUCOSE BEDSIDE TESTING (test code 142 MG/DL 60-99 H = GLUBED) GLUCOSE BEDSIDE [id number] 16:07:00 Test Item Value Reference Range Interpretation Comments GLUCOSE BEDSIDE TESTING (test code 368 MG/DL 60-99 HH = GLUBED) GLUCOSE BEDSIDE [id number] 16:07:00 Test Item Value Reference Range Interpretation Comments GLUCOSE BEDSIDE TESTING (test code 361 MG/DL 60-99 HH = GLUBED) GLUCOSE BEDSIDE [id number] 09:03:00 Test Item Value Reference Range Interpretation Comments GLUCOSE BEDSIDE TESTING (test code 211 MG/DL 60-99 H = GLUBED) GLUCOSE BEDSIDE [id number] 08:30:00 Test Item Value Reference Range Interpretation Comments GLUCOSE BEDSIDE TESTING (test code 199 MG/DL 60-99 H = GLUBED) GLUCOSE BEDSIDE [id number] 08:03:00 Test Item Value Reference Range Interpretation Comments GLUCOSE BEDSIDE TESTING (test code 190 MG/DL 60-99 H = GLUBED) GLUCOSE BEDSIDE [id number] 20:23:00 Test Item Value Reference Range Interpretation Comments GLUCOSE BEDSIDE TESTING (test code 222 MG/DL 60-99 H = GLUBED) GLUCOSE BEDSIDE [id number] 12:52:00 Test Item Value Reference Range Interpretation Comments GLUCOSE BEDSIDE TESTING (test code 204 MG/DL 60-99 H = GLUBED) GLUCOSE BEDSIDE [id number] 07:54:00 Test Item Value Reference Range Interpretation Comments GLUCOSE BEDSIDE TESTING (test code 186 MG/DL 60-99 H = GLUBED) ALLIE [id number] 07:32:00 Test Item Value Reference Range Interpretation Comments ALLIE DIRECT (test code Negative () Nega tive <1:80 = ANADIR) Borderline 1:80 Positive >1:80Performed At: [facility] [address] [id number] paige Leach MD Ph:[phone] AB HEPATITIS B [id number] 07:32:00 Test Item Value Reference Range Interpretation Comments AB HEPATITIS B POSITIVE SURFACE (test code = HBSAB) CLI NICAL INTERPRETATION OF IMMUNE STATUS *NEGATIVE: Inconsistent wi th immunity to HBV infection, less than 5.0 mIU/mL POSITIVE : Consistent with immunity to HBV infectio n, greater than 10.0 mIU/mL AB HEPATITIS B [id number] 07:32:00 Test Item Value Reference Range Interpretation Comments AB HEPATITIS B CORE (test code = POSITIVE NONREACTIVE HBCAB) AB HEPATITIS C [id number] 07:32:00 Test Item Value Reference Range Interpretation Comments AB HEPATITIS C (test code = HCVAB) NEGATIVE NONREACTIVE AB DNA DOUBLE [id number] 07:32:00 Test Item Value Reference Range Interpretation Comments AB DNA DOUBLE STRAND 1 IU/mL 0-9 Negati ve <5 Equivocal (test code = DNADSAB) 5 - 9 Positive >9Performed At: [facility] [address] [id number] paige Leach MD Ph:[phone] COMPLEMENT [id number] 07:32:00 Test Item Value Reference Range Interpretation Comments COMPLEMENT C3 (test 131 mg/dL 82-167 Performe d At: code = COMC3) [facility] [address] [id number] Kyle L MD Ph:[phone] COMPLEMENT [id number] 07:32:00 Test Item Value Reference Range Interpretation Comments COMPLEMENT C4 (test code = COMC4) 35 mg/dL 14-44 BASIC METABOLIC [id number] 05:09:00 Test Item Value Reference Range Interpretation [...] 8.6 MG/DL 8.4-10.2 N CA) CBC W/AUTO [id number] 04:50:00 Test Item Value Reference Range Interpretation [...] 0.02 K/mm3 0.0-0.1 N NRBC#) GLUCOSE BEDSIDE [id number] 22:11:00 Test Item Value Reference Range Interpretation Comments GLUCOSE BEDSIDE TESTING (test code 242 MG/DL 60-99 H = GLUBED) GLUCOSE BEDSIDE [id number] 21:10:00 Test Item Value Reference Range Interpretation Comments GLUCOSE BEDSIDE TESTING (test code 213 MG/DL 60-99 H = GLUBED) GLUCOSE BEDSIDE [id number] 16:23:00 Test Item Value Reference Range Interpretation Comments GLUCOSE BEDSIDE TESTING (test code 164 MG/DL 60-99 H = GLUBED) GLUCOSE BEDSIDE [id number] 12:33:00 Test Item Value Reference Range Interpretation Comments GLUCOSE BEDSIDE TESTING (test code 287 MG/DL 60-99 H = GLUBED) GLUCOSE BEDSIDE [id number] 08:34:00 Test Item Value Reference Range Interpretation Comments GLUCOSE BEDSIDE TESTING (test code 233 MG/DL 60-99 H = GLUBED) - US GUIDANCE VASC [id number] 07:50:00 Patient Name: CITLALY DAVIS Unit No: [id number] EXAMS: CPT CODE: [id number] US GUIDANCE VASC ACCESS [id number] Procedure: Right IJ tunneled, cuffed hemodialysis catheter placement. Location: B2 Clinical Indication: Renal Failure Technique: Written informed consent was obtained. Total fluoroscopy time was 0.3 minutes. Air kerma was 2.9 mGy. All elements of maximum sterile barrier technique were utilized throughout the procedure. Moderate sedation was given using Versed and fentanyl. Intraservice moderate se dation time was 30 minutes. Continuous cardiopulmonary monitoring was performed by the nurse. Ultrasound of the right IJ showed the vessel to be patent and compressible. Using ultrasound guidance, the right IJ was accessed with a 21- gauge needle and 5-[place]izen [place] micropuncture set. An image was stored for d ocumentation. A 035 wire was passed into the IVC. The subcutaneous tunnel was anesthetized with 1% lidocaine. An exit site incision was made using a # 11 blade. Using a tunneling device, a 23 cm tip tocuff catheter was brought through the tunnel towards the venotomy. Over the wire, the venotomy was dilated and a peel-away sheath placed. The catheter was advanced through the peel-away and tip positioned in the right atrium using fluoroscopic guidance. Peel-away was removed. Catheter was checked forflow and heparinized. Catheter was secured to the skin with Prolene, and a clean dressing applied. Patient tolerated the procedure well. Impression: Successful placement of a right IJ tunneled, cuffed hemodialysis catheter at 0750 Reported and signed by: Ja Cruz M.D. CC: Manny Tucker MD Technologist: Ivanna Wheat, RT(R)Fluoro Time: DAP (Gy m2): Air Kerma (mGy): Trnscrpt: 07/29/2019 (0750) t.SDR.RB24 [facility] NAME:CITLALY DAVIS [id number] PHYS: Gerry DELGADO Do, [place] [address] : 1960 AGE: 59 SEX: F LOC: Z.343 A PHONE #: [phone] EXAM DATE: 07/28/2019 STATUS: ADM IN FAX #: [phone] RAD #: D/C DT PAGE 1 Signed Report - FLUORO GUID CLRT ACC [id number] 07:50:00 Patient Name: CITLALY DAVIS Unit No: [id number] EXAMS: CPT CODE: [id number] FLUORO GUID CLRT ACC DEV [id number] Procedure: Right IJ tunneled, cuffed hemodialysis catheter placement. Location: B2 Clinical Indication: Renal Failure Technique: Written informed consent was obtained. Total fluoroscopy time was 0.3 minutes. Air kerma was 2.9 mGy. All elements of maximum sterile barrier technique were utilized throughout the procedure. Moderate sedation was given using Versed and fentanyl. Intraservice moderatesedation time was 30 minutes. Continuous cardiopulmonary monitoring was performed by the nurse. Ultrasound of the right IJ showed the vessel to be patent and compressible. Using ultrasound guidance, the right IJ was accessed with a 21-gauge needle and 5-[place] micropuncture set. An image was stored for documentation. A 035 wire was passed into the IVC. The subcutaneous tunnel was anesthetized with 1%lidocaine. An exit site incision was made using a # 11 blade. Using a tunneling device, a 23 cm tip to cuff catheter was brought through the tunnel towards the venotomy. Over the wire, the venotomy wasdilated and a peel-away sheath placed. The catheter was advanced through the peel-away and tip positioned in the right atrium using fluoroscopic guidance. Peel-away was removed. Catheter was checked for flow and heparinized. Catheter was secured to the skin with Prolene, and a clean dressing applied. Patient tolerated the procedure well. Impression: Successful placement of a right IJ tunneled, cuffed hemodialysis catheter at 0750 Reported and signed by: Ja Cruz M.D. CC: Manny Tucker MD Technologist: Ivanna Wheat, RT(R) Fluoro Time: DAP (Gy m2): Air Kerma (mGy): Trnscrpt: 07/29/2019 (0750) Marcell.RB24 [facility] NAME: CITLALY DAVIS [id number] [address] PHYS: Gerry DELGADO Do, [place] [address] : 1960 AGE: 59 SEX: F LOC: [id number] A PHONE #: [phone] EXAM DATE: 07/28/2019 STATUS: ADM IN FAX #: [phone] RAD #: D/C DT PAGE 1 Signed ReportUR CREATININE CLEARANCE [id number] 07:24:00 Test Item Value Reference Range Interpretation Comments CREATININE CLEARANCE RESULT (test 9.2 ML/MIN 85-125 L code = CREATCLR) CREATININE (test code = CREAT) 5.30 MG/DL 0.52-1.04 H UR CREATININE RANDOM (test code = 78.8 CREATU) UR CREATININE 24HR (test code = 0.66 GM/DAY 0.60-1.80 N [id number]) UR VOLUME (test code = VOL) 850 ML 800-1800 N SURFACE AREA (test code = SURFAR) 1.64 UR PROTEIN [id number] 07:24:00 Test Item Value Reference Range Interpretation Comments UR TOTAL PROTEIN 428 mg/dL Not Estab. Results con firmed (test code = PROTEU) ondilut ion. UR ALBUMIN % (test 54.2 % () code = ALBEU%) UR [id number] % 2.9 % () (test code = A1GU%) UR [id number]-3-OJULOKOJ % 10.7 % () (test code = A2GU%) UR BETA GLOBULIN % 14.3 % () (test code = BGU%) UR GAMMA GLOBULIN % 17.9 % () (test code = GGU%) UR PROT Protein ELECTROPHORESIS electrophore sis scan INTERP (test code = will fol low via ELEUINT) computer,mail, or electric locomotive crane operator delivery.Perfor med At: [facility] [id number] [place], [place] [id number] Vinicio Leach MD Ph:[phone] rform ed At: [facility] [id number] [facility] [address] [place], [place] [id number] h FRANSICO TRACY Ph:[phone] angella hernandez reported re horaciot: Edited by: INFC E on 07/28/19:[id number]: UR PROT KUSUM INT previously reported as: M SPIKE % (test code Not Observed % Not Observed = MSPIKE%) PROTEIN ELECTROPHORESIS [id number] 07:24:00 Test Item Value Reference Range Interpretation Comments TOTAL PROTEIN 6.2 g/dL 6.0-8.5 (test code = PROTE) ALBUMIN (test 2.80 g/dL 2.9-4.4 L code = ALBE) RKXOJ-0-CYTUWFIR 0.20 g/dL 0.0-0.4 (test code = A1G) [id number]-7-[id number] 0.80 g/dL 0.4-1.0 (test code = A2G) [...] = will follow via ELEINT) computer,mail, or electric locomotive crane operator delivery.Perfor med At: HD [facility] [address] [place], [place] [id number] paige Leach MD Ph:[phone] rformed At: DA [facility] [address] [place], [place] [id number] h CN MD Ph:[phone] [id number] 07:24:00 Test Item Value Reference Range Interpretation Comments FERRITIN (test code = [place]) 47.8 NG/ML 11.1-264 N BASIC METABOLIC [id number] 05:39:00 Test Item Value Reference Range Interpretation [...] 9.2 MG/DL 8.4-10.2 N CA) CBC W/AUTO [id number] 05:07:00 Test Item Value Reference Range Interpretation [...] 0.00 K/mm3 0.0-0.1 N NRBC#) GLUCOSE BEDSIDE [id number] 21:56:00 Test Item Value Reference Range Interpretation Comments GLUCOSE BEDSIDE TESTING (test code 245 MG/DL 60-99 H = GLUBED) AB HEPATITIS B [id number] 14:17:00 Test Item Value Reference Range Interpretation Comments AB HEPATITIS B POSITIVE SURFACE (test code = HBSAB) CLIN ICAL INTERPRETATION OF IMMUNE STATUS *NEGATIVE: Inconsistent wi th immunity to HBV infection, less than 5.0 mIU/mL POSITIVE : Consistent with immunity to HBV infectio n, greater than 10 .0 mIU/mL UNABLE TO DRAW BLOOD, REASON: CBNNOTIFIED PATIENT CARE STAFF: WAI IGNACIO 07/28/19 AT 1233 BY Tomeka Mcdaniels HEPATITIS B [id number] 14:17:00 Test Item Value Reference Range Interpretation Comments AG HEPATITIS B SURFACE (test code = NEGATIVE NONREACTIVE HBSAG) UNABLE TO DRAW BLOOD, REASON: CBNNOTIFIED PATIENT CARE STAFF: WAI IGNACIO 07/28/19 AT 1233 BY Tomeka Mcdaniels HEPATITIS B [id number] 14:17:00 Test Item Value Reference Range Interpretation Comments AB HEPATITIS B CORE (test code = POSITIVE NONREACTIVE HBCAB) UNABLE TO DRAW BLOOD, REASON: CBNNOTIFIED PATIENT CARE STAFF: WAI IGNACIO 07/28/19 AT 1233 BY Tomeka Mcdaniels HEPATITIS C [id number] 14:17:00 Test Item Value Reference Range Interpretation Comments AB HEPATITIS C (test code = HCVAB) NEGATIVE NONREACTIVE UNABLE TO DRAW BLOOD, REASON: CBNNOTIFIED PATIENT CARE STAFF: WAI IGNACIO 07/28/19 AT 1233 BY Tomeka Mcdaniels HEPATITIS B [id number] 13:58:00 Test Item Value Reference Range Interpretation Comments AB HEPATITIS B SURFACE (test code = HBSAB) UNABLE TO DRAW BLOOD, REASON: CBNNOTIFIED PATIENT CARE STAFF: WAI IGNACIO 07/28/19 AT 1233 BY Tomeka Mcdaniels HEPATITIS B [id number] 13:58:00 Test Item Value Reference Range Interpretation Comments AG HEPATITIS B SURFACE (test code = NEGATIVE NONREACTIVE HBSAG) UNABLE TO DRAW BLOOD, REASON: CBNNOTIFIED PATIENT CARE STAFF: WAI IGNACIO 07/28/19 AT 1233 BY Tomeka Mcdaniels HEPATITIS B [id number] 13:58:00 Test Item Value Reference Range Interpretation Comments AB HEPATITIS B CORE (test code = HBCAB) NONREACTIVE UNABLE TO DRAW BLOOD, REASON: CBNNOTIFIED PATIENT CARE STAFF: WAI IGNACIO 07/28/19 AT 1233 BY Tomeka Mcdaniels HEPATITIS C [id number] 13:58:00 Test Item Value Reference Range Interpretation Comments AB HEPATITIS C (test code = HCVAB) NONREACTIVE UNABLE TO DRAW BLOOD, REASON: CBNNOTIFIED PATIENT CARE STAFF: WAI IGNACIO 07/28/19 AT 1233 BY Tomeka McdanielsROTHROMBIN [id number] 13:00:00 Test Item Value Reference Range Interpretation Comments PROTHROMBIN TIME 10.0 SECONDS 9.6-11.6 N PATIENT (test code = PTP) INTERNATIONAL NORMAL 0.9 0.8-1.1 N The INR is to be RATIO (test code = used only for INR) monitoring oral anticoagulantth erap y. INDICATION I NR VALUE ---- ---- ---- -------1. Prophylaxis, de ep venous thrombos is, including high risk surgery. 2.0 - 3.0 2. Prophylaxis, deep venous thrombosis, hip surgery, treatm ent for deep venous thrombosis or pulmonary prevention of systemic emboli sm in patients wit h valvular heart disease, atrial fibrillation, tissue heart va lve, or acute myocar dial infarction. 2.0 - 3.0 3. Facilities Management Executive al prosthesis hear t valves, recurre nt systemic emboli sm. 3.0 - 4.5 Comments to Security Messenger: NONEUNABLE TO DRAW BLOOD, REASON: CBNNOTIFIED PATIENT CARE STAFF: WAI IGNACIO 07/28/19 AT 1234 BY Tomeka Mcdaniels LynnGLUCOSE BEDSIDE [id number] 11:57:00 Test Item Value Reference Range Interpretation Comments GLUCOSE BEDSIDE TESTING (test code 203 MG/DL 60-99 H = GLUBED) GLUCOSE BEDSIDE [id number] 10:09:00 Test Item Value Reference Range Interpretation Comments GLUCOSE BEDSIDE TESTING (test code 182 MG/DL 60-99 H = GLUBED) BASIC METABOLIC [id number] 04:51:00 Test Item Value Reference Range Interpretation [...] 8.9 MG/DL 8.4-10.2 N CA) CBC W/AUTO [id number] 04:30:00 Test Item Value Reference Range Interpretation [...] 0.00 K/mm3 0.0-0.1 N NRBC#) GLUCOSE BEDSIDE [id number] 01:07:00 Test Item Value Reference Range Interpretation Comments GLUCOSE BEDSIDE TESTING (test code 251 MG/DL 60-99 H = GLUBED) GLUCOSE BEDSIDE [id number] 21:56:00 Test Item Value Reference Range Interpretation Comments GLUCOSE BEDSIDE TESTING (test code 192 MG/DL 60-99 H = GLUBED) HEPATITIS B SURF AB, [id number] 18:50:00 Test Item Value Reference Range Interpretation Comments HEPATITIS B SURF > 1000.0 ~~~~~~~~~~~ ~~~~~~~~~~~ AB, QUANT (test mIU/mL ~~~~~~~~~~~~ ~~~~~~~~~~ code = HBSABQ) ~~~~~~~~~~~~~ ~~~INTERP RETIVE DATA: <5 .00 mIU/mL : Negati ve - Patient is cons idered to be [...] ~~~~~~~~~~~~~~~ ~~~~~~~ ~~~~~~~~~~~~~~~ ~~~~~~~ ~~~~ GLUCOSE BEDSIDE [id number] 16:17:00 Test Item Value Reference Range Interpretation Comments GLUCOSE BEDSIDE TESTING (test code 205 MG/DL 60-99 H = GLUBED) GLUCOSE BEDSIDE [id number] 12:44:00 Test Item Value Reference Range Interpretation Comments GLUCOSE BEDSIDE TESTING (test code 274 MG/DL 60-99 H = GLUBED) ALLIE [id number] 11:08:00 Test Item Value Reference Range Interpretation Comments ALLIE DIRECT (test code = ANADIR) NEGATIVE AB HEPATITIS B [id number] 11:08:00 Test Item Value Reference Range Interpretation Comments AB HEPATITIS B POSITIVE SURFACE (test code = HBSAB) CLIN ICAL INTERPRETATION OF IMMUNE STATUS *NEGATIVE: Inconsistent wi th immunity to HBV infection, less than 5.0 mIU/mL POSITIVE : Consistent with immunity to HBV infectio n, greater than 10.0 mIU/mL AB HEPATITIS B [id number] 11:08:00 Test Item Value Reference Range Interpretation Comments AB HEPATITIS B CORE (test code = POSITIVE NONREACTIVE HBCAB) AB HEPATITIS C [id number] 11:08:00 Test Item Value Reference Range Interpretation Comments AB HEPATITIS C (test code = HCVAB) NEGATIVE NONREACTIVE AB DNA DOUBLE [id number] 11:08:00 Test Item Value Reference Range Interpretation Comments AB DNA DOUBLE STRAND (test code = IU/ml 0-9 DNADSAB) COMPLEMENT [id number] 11:08:00 Test Item Value Reference Range Interpretation Comments COMPLEMENT C3 (test 131 mg/dL 82-167 Performe d At: HD code = COMC3) [facility] [address] [place], [place] [id number] Vinicio Leach MD Ph:[phone] COMPLEMENT [id number] 11:08:00 Test Item Value Reference Range Interpretation Comments COMPLEMENT C4 (test code = COMC4) 35 mg/dL 14-44 GLUCOSE BEDSIDE [id number] 08:24:00 Test Item Value Reference Range Interpretation Comments GLUCOSE BEDSIDE TESTING (test code 198 MG/DL 60-99 H = GLUBED) GLUCOSE BEDSIDE [id number] 20:14:00 Test Item Value Reference Range Interpretation Comments GLUCOSE BEDSIDE TESTING (test code 246 MG/DL 60-99 H = GLUBED) UR PROTEIN [id number] 14:32:00 Test Item Value Reference Range Interpretation Comments UR PROTEIN RANDOM (test code 629 MG/DL 0-11.9 H = PROTU) UR PROTEIN 24HR (test code = 5346.50 MG/24HRS 0.0-200.0 H [id number]) UR VOLUME (test code = VOL) 850 ML 800-1800 N GLUCOSE BEDSIDE [id number] 14:28:00 Test Item Value Reference Range Interpretation Comments GLUCOSE BEDSIDE TESTING (test code 230 MG/DL 60-99 H = GLUBED) GLUCOSE BEDSIDE [id number] 14:28:00 Test Item Value Reference Range Interpretation Comments GLUCOSE BEDSIDE TESTING (test code 240 MG/DL 60-99 H = GLUBED) UR CREATININE CLEARANCE [id number] 14:02:00 Test Item Value Reference Range Interpretation Comments CREATININE CLEARANCE RESULT (test 9.2 ML/MIN 85-125 L code = CREATCLR) CREATININE (test code = CREAT) 5.30 MG/DL 0.52-1.04 H UR CREATININE RANDOM (test code = 78.8 CREATU) UR CREATININE 24HR (test code = 0.66 GM/DAY 0.60-1.80 N [id number]) UR VOLUME (test code = VOL) 850 ML 800-1800 N SURFACE AREA (test code = SURFAR) 1.64 UR PROTEIN [id number] 14:02:00 Test Item Value Reference Range Interpretation Comments UR TOTAL PROTEIN (test code = PROTEU) MG/DL 0-149 UR ALBUMIN % (test code = ALBEU%) % UR BUDVT-3-RSNPXBZC % (test code = % A1GU%) UR AKNXH-5-HJDXSXZY % (test code = % A2GU%) UR BETA GLOBULIN % (test code = BGU%) % UR GAMMA GLOBULIN % (test code = GGU%) % M SPIKE % (test code = MSPIKE%) % UR PROTEIN [id number] 14:01:00 Test Item Value Reference Range Interpretation Comments UR PROTEIN RANDOM (test code = MG/DL 0-11.9 PROTU) UR PROTEIN 24HR (test code = MG/24HRS 0.0-200.0 [id number]) UR VOLUME (test code = VOL) 850 ML 800-1800 N UR CREATININE CLEARANCE [id number] 13:57:00 Test Item Value Reference Range Interpretation Comments CREATININE CLEARANCE RESULT (test ML/MIN 85-125 code = CREATCLR) CREATININE (test code = CREAT) 5.30 MG/DL 0.52-1.04 H UR CREATININE RANDOM (test code = CREATU) UR CREATININE 24HR (test code = GM/DAY 0.60-1.80 [id number]) UR VOLUME (test code = VOL) 850 ML 800-1800 N SURFACE AREA (test code = SURFAR) 1.64 UR PROTEIN [id number] 13:57:00 Test Item Value Reference Range Interpretation Comments UR TOTAL PROTEIN (test code = PROTEU) MG/DL 0-149 UR ALBUMIN % (test code = ALBEU%) % UR MLNKP-5-OOAZJOAR % (test code = % A1GU%) UR TFCWS-5-NYXPMKAR % (test code = % A2GU%) UR BETA GLOBULIN % (test code = BGU%) % UR GAMMA GLOBULIN % (test code = GGU%) % M SPIKE % (test code = MSPIKE%) % UR CREATININE CLEARANCE [id number] 13:56:00 Test Item Value Reference Range Interpretation Comments CREATININE CLEARANCE RESULT (test ML/MIN 85-125 code = CREATCLR) CREATININE (test code = CREAT) MG/DL 0.52-1.04 UR CREATININE RANDOM (test code = CREATU) UR CREATININE 24HR (test code = GM/DAY 0.60-1.80 UATH00F) UR VOLUME (test code = VOL) ML 800-1800 SURFACE AREA (test code = SURFAR) 1.64 UR PROTEIN [id number] 13:56:00 Test Item Value Reference Range Interpretation Comments UR TOTAL PROTEIN (test code = PROTEU) MG/DL 0-149 UR ALBUMIN % (test code = ALBEU%) % UR VGFRS-5-KBLZIGHM % (test code = % A1GU%) UR TAACM-6-POBCDHAA % (test code = % A2GU%) UR BETA GLOBULIN % (test code = BGU%) % UR GAMMA GLOBULIN % (test code = GGU%) % M SPIKE % (test code = MSPIKE%) % GLUCOSE BEDSIDE [id number] 08:53:00 Test Item Value Reference Range Interpretation Comments GLUCOSE BEDSIDE TESTING (test code 168 MG/DL 60-99 H = GLUBED) B-TYPE NATRIURETIC [id number] 06:21:00 Test Item Value Reference Range Interpretation Comments B-TYPE NATRIURETIC PEPTIDE (test 843.0 PG/ML 0-100 H code = BNP) COMPREHENSIVE METABOLIC [id number] 06:08:00 Test Item Value Reference Range Interpretation [...] UNITS/L 38-126 H (test code = ALKP) [id number] 06:08:00 Test Item Value Reference Range Interpretation Comments PHOSPHOROUS (test code = PHOS) 5.7 MG/DL 2.5-4.5 H [id number] 06:08:00 Test Item Value Reference Range Interpretation Comments MAGNESIUM (test code = MAG) 2.1 MG/DL 1.6-2.3 N CBC W/AUTO [id number] 05:42:00 Test Item Value Reference Range Interpretation [...] 0.00 K/mm3 0.0-0.1 N NRBC#) GLUCOSE BEDSIDE [id number] 20:08:00 Test Item Value Reference Range Interpretation Comments GLUCOSE BEDSIDE TESTING (test code 132 MG/DL 60-99 H = GLUBED) - US RETROPERITONEAL [id number] 16:54:00 Patient Name: CITLALY DAVIS Unit No: [id number] EXAMS: CPT CODE: [id number] US RETROPERITONEAL COM [id number] W1 EXAM: Retroperitoneal ultrasound HISTORY: CKD TECHNIQUE: Real-time grayscale and color-flow Doppler images were obtained of the bilateral kidneys. COMPARISON: None FINDINGS: The right kidney measures 10.9 cm and the left measures 10.3 cm. No hydronephrosis. A 9 mm simple cyst is noted in the left kidney. No solid renal masses are present. There is normal renal cortical thickness and echogenicity. IMPRESSION: Normal kidneys. at 1654 Reported and signed by: Rian Juarez MD CC: Manny Tucker MD; Augustine Hdz Technologist: Cheslea Garcia RDMS(OB)(AB) Transcrpt Date/Tm/Trnsp: 07/25/2019 (8237) [id number] Orig Print D/T: S: 07/25/2019 (1211) [facility] NAME: CITLALY DAVIS [id number] PHYS: [place] [address] : 1960 AGE: 59 SEX: F LOC: Z.343 A PHONE #: [phone] EXAM DATE: 07/25/2019 STATUS: ADM IN FAX #: [phone] RADIOLOGY NO: PAGE 1 Signed ReportURINALYSIS COMPLETE 2019-07-25 16:13:00 Test Item Value Reference Range Interpretation [...] = UACULT) SOURCE OF URINE: CLEAN CATCHUA [id number] 16:13:00 Test Item Value Reference Range Interpretation Comments UA RBC (test code = RBCU) 5-10 RBC/HPF 0-3 A UA WBC (test code = XWBCU) 5-9 WBC/HPF 0-5 A UA EPITHELIAL CELLS (test code = FEW EPI/HPF FEW EPIU) UA BACTERIA (test code = XBACU) FEW NONE UA MUCUS (test code = MUCU) SLIGHT #/LPF NONE SOURCE OF URINE: CLEAN CATCHGLUCOSE BEDSIDE [id number] 15:53:00 Test Item Value Reference Range Interpretation Comments GLUCOSE BEDSIDE TESTING (test code 141 MG/DL 60-99 H = GLUBED) ALLIE [id number] 15:48:00 Test Item Value Reference Range Interpretation Comments ALLIE DIRECT (test code = ANADIR) NEGATIVE AB HEPATITIS B [id number] 15:48:00 Test Item Value Reference Range Interpretation Comments AB HEPATITIS B POSITIVE SURFACE (test code = HBSAB) CLIN ICAL INTERPRETATION OF IMMUNE STATUS *NEGATIVE: Inconsistent wi th immunity to HBV infection, less than 5.0 mIU/mL POSITIVE : Consistent with immunity to HBV infectio n, greater than 10.0 mIU/mL AB HEPATITIS B [id number] 15:48:00 Test Item Value Reference Range Interpretation Comments AB HEPATITIS B CORE (test code = POSITIVE NONREACTIVE HBCAB) AB HEPATITIS C [id number] 15:48:00 Test Item Value Reference Range Interpretation Comments AB HEPATITIS C (test code = HCVAB) NEGATIVE NONREACTIVE AB DNA DOUBLE [id number] 15:48:00 Test Item Value Reference Range Interpretation Comments AB DNA DOUBLE STRAND (test code = IU/ml 0-9 DNADSAB) COMPLEMENT [id number] 15:48:00 Test Item Value Reference Range Interpretation Comments COMPLEMENT C3 (test code = COMC3) mg/dl 82-167 COMPLEMENT [id number] 15:48:00 Test Item Value Reference Range Interpretation Comments COMPLEMENT C4 (test code = COMC4) mg/dl 14-44 URINALYSIS [id number] 15:43:00 Test Item Value Reference Range Interpretation [...] = UACULT) SOURCE OF URINE: CLEAN CATCHUA [id number] 15:43:00 Test Item Value Reference Range Interpretation Comments UA RBC (test code = RBCU) RBC/HPF 0-3 UA WBC (test code = XWBCU) WBC/HPF 0-5 UA EPITHELIAL CELLS (test code = EPI/HPF FEW EPIU) UA BACTERIA (test code = XBACU) NONE SOURCE OF URINE: CLEAN CATCHURINALYSIS [id number] 15:43:00 Test Item Value Reference Range Interpretation [...] = UACULT) SOURCE OF URINE: CLEAN CATCHUA [id number] 15:43:00 Test Item Value Reference Range Interpretation Comments UA RBC (test code = RBCU) RBC/HPF 0-3 UA WBC (test code = XWBCU) WBC/HPF 0-5 UA EPITHELIAL CELLS (test code = EPI/HPF FEW EPIU) UA BACTERIA (test code = XBACU) NONE SOURCE OF URINE: CLEAN CATCHPROTEIN ELECTROPHORESIS [id number] 15:07:00 Test Item Value Reference Range Interpretation Comments TOTAL PROTEIN (test code = PROTE) G/DL 6.0-8.5 ALBUMIN (test code = ALBE) G/DL 3.5-5.5 SNPIS-1-WAXYQART (test code = A1G) G/DL 0.2-0.5 TTYYP-2-JJHKYIGJ (test code = A2G) G/DL 0.2-1.1 BETA GLOBULIN (test code = BG) G/DL 0.5-1.2 GAMMA GLOBULIN (test code = GG) G/DL 0.5-1.5 M-SPIKE,SERUM (test code = MSPIKES) NOT OBSERVE GLOBULIN ELECT (test code = GLOBE) ALBUMIN/GLOBULIN RATIO (test code = AGE) PROT.ELECTROPH.INTERPRETATION (test code = ELEINT) [id number] 15:07:00 Test Item Value Reference Range Interpretation [...] 23 % 12-57 N FESAT) PARATHYROID HORMONE [id number] 14:43:00 Test Item Value Reference Range Interpretation [...] 23 % 12-57 N FESAT) PARATHYROID HORMONE [id number] 14:40:00 Test Item Value Reference Range Interpretation Comments PARATHYROID HORMONE INTACT (test code pg/mL 7.5-53.5 = PARAI) FE W/TOTAL IRON BINDING CAP.[id number] 14:30:00 Test Item Value Reference Range Interpretation Comments SERUM IRON (test code = IRON) 60 MCG/DL 37-170 N TOTAL IRON BINDING CAPACITY (test MCG/DL 265-497 code = TIBC) IRON SATURATION (test code = FESAT) % 12-57 PARATHYROID HORMONE [id number] 14:30:00 Test Item Value Reference Range Interpretation Comments PARATHYROID HORMONE INTACT (test code pg/mL 7.5-53.5 = PARAI) GLUCOSE BEDSIDE [id number] 11:26:00 Test Item Value Reference Range Interpretation Comments GLUCOSE BEDSIDE TESTING (test code 171 MG/DL 60-99 H = GLUBED) GLUCOSE BEDSIDE [id number] 08:01:00 Test Item Value Reference Range Interpretation Comments GLUCOSE BEDSIDE TESTING (test code 142 MG/DL 60-99 H = GLUBED) BASIC METABOLIC [id number] 07:01:00 Test Item Value Reference Range Interpretation [...] code = 8.8 MG/DL 8.4-10.2 N CA) [id number] 07:01:00 Test Item Value Reference Range Interpretation Comments TROPONIN-I (test code = TROPI) 0.034 NG/ML 0.012-0.033 H BASIC METABOLIC [id number] 06:57:00 Test Item Value Reference Range Interpretation [...] code = 8.8 MG/DL 8.4-10.2 N CA) [id number] 06:57:00 Test Item Value Reference Range Interpretation Comments TROPONIN-I (test code = TROPI) NG/ML 0.0-0.045 CBC W/AUTO [id number] 06:38:00 Test Item Value Reference Range Interpretation [...] code = 0.00 K/mm3 0.0-0.1 N NRBC#) [id number] 22:53:00 Test Item Value Reference Range Interpretation Comments TROPONIN-I (test code = TROPI) 0.017 NG/ML 0.012-0.033 B-TYPE NATRIURETIC [id number] 16:01:00 Test Item Value Reference Range Interpretation Comments B-TYPE NATRIURETIC PEPTIDE (test 482.0 PG/ML 0-100 H code = BNP) COMPREHENSIVE METABOLIC [id number] 15:53:00 Test Item Value Reference Range Interpretation Comments SODIUM (test code = 137 MMOL/L 137-145 N NA) POTASSIUM (test code = 6.1 MMOL/L 3.5-5.1 MENA D TO OMARS & K) READBACK ON AT 1547 BY Isha Medina CHLORIDE (test code = [...] UNITS/L 38-126 H (test code = ALKP) [id number] 15:53:00 Test Item Value Reference Range Interpretation Comments TROPONIN-I (test code = TROPI) 0.016 NG/ML 0.012-0.033 N COMPREHENSIVE METABOLIC [id number] 15:49:00 Test Item Value Reference Range Interpretation Comments SODIUM (test code = 137 MMOL/L 137-145 N NA) POTASSIUM (test code = 6.1 MMOL/L 3.5-5.1 HH RAJESH D TO Milo NELSON & Shawn) READBACK ON AT 1547 BY Isha Medina CHLORIDE (test code = [...] UNITS/L 38-126 H (test code = ALKP) [id number] 15:49:00 Test Item Value Reference Range Interpretation Comments TROPONIN-I (test code = TROPI) NG/ML 0.0-0.045 - XR CHEST [id number] 15:35:00 Patient Name: CITLALY DAVIS Unit No: [id number] EXAMS: CPT CODE: [id number] XR CHEST 1V [id number] EXAM: XR Chest 1 View INDICATION: Chest pain LOCATION CODE: B2 COMPARISON: None available TECHNIQUE: Frontalview of the chest was obtained. FINDINGS: The [...] Manny Tucker MD; Jeremy Vences MD Technologist: [facility] STUDENT ; Jeremy Daniel, RT(R) Transcrpt Date/Tm/Trnsp: 07/24/2019 (1535) [id number] Orig Print D/T: S: 07/24/2019 (8638) [facility] NAME: CITLALY DAVIS [id number] [facility]: [place] - [place] [address] : 1960 AGE: 59 SEX: F LOC: Z.ERS PHONE #: [phone] EXAM DATE: 07/24/2019 STATUS: REG ER FAX #: [phone] RADIOLOGY NO: PAGE 1 Signed ReportCBC W/AUTO [id number] 15:25:00 Test Item Value Reference Range Interpretation [...] 0.00 K/mm3 0.0-0.1 N NRBC#) BASIC METABOLIC [id number] 01:55:00 Test Item Value Reference Range Interpretation [...] 9.0 MG/DL 8.4-10.2 N CA) CBC W/O [id number] 01:42:00 Test Item Value Reference Range Interpretation [...] (test code = 0.00 K/mm3 0.0-0.1 N NRBC#)"
[2022-07-02 22:14] LABS: Absolute Lymphocytes (CBC) 0.6 K/uL (0.7-4.9); MCV 79.7 fL (80-100); MPV 8.7 fL (7.6-11.3); RBC Red Blood Cell Count 4.13 M/uL (3.86-4.86)
[2022-07-02] MEDS ORDERED: FUROSEMIDE 20 MG TABLET ONE (22:24)
[2022-07-02] MEDS ORDERED: HYDRALAZINE HCL 25 MG TABLET ONE (22:24)
[2022-07-02] MEDS ORDERED: NIFEDIPINE XL 90 MG TABLET PO ONE (22:32)
[2022-07-02 22:46] LABS: Albumin 3.5 g/dL (3.4-5.0); Bilirubin Total 0.4 mg/dL (0.2-1.0); Magnesium 2.1 mg/dL (1.8-2.4); Potassium 4.6 mmol/L (3.5-5.1); Protein, Total 8.2 g/dL (6.4-8.2)
[2022-07-02 22:47] LABS: Troponin High Sensitivity 653.1 pg/mL (<58.9)
[2022-07-02] MEDS ORDERED: cloNIDine HCL 0.1 MG TAB ONE (23:39)
[2022-07-02] MEDS ORDERED: LABETALOL 20 MG/4ML SYRINGE IV ONE (23:39)
--- NOTE | 2022-07-03 04:39 | ER ---
Nurse's Notes [facility] Name: Lita Ernst Age: 62 yrs Sex: Female : 1960 Arrival Date: 07/02/2022 Time: 21:14 Bed 2 Private MD: Diagnosis: Vomiting, unspecified;Elevated troponin;Chronic hypertension Presentation: 07/02 21:16 Chief complaint: EMS states: pt was seen at [facility] earlier today for high blood as6 pressure and discharged, pt now c/o nausea and abdominal pain. Coronavirus screen: At this time, the client does not indicate any symptoms associated with coronavirus-19. Ebola Screen: No symptoms or risks identified at this time. Initial Sepsis Screen: Does the patient meet any 2 criteria? No. Patient's initial sepsis screen is negative. Does the patient have a suspected source of infection? No. Patient's initial sepsis screen is negative. Risk Assessment: Do you want to hurt yourself or someone else? Patient reports no desire to harm self or others. Onset of symptoms was July 02, 2022. 21:16 Method Of Arrival: EMS: [facility] as6 21:16 Acuity: JERAMY 2 as6 Historical: - Allergies: 21:25 unknown med; as6 - PMHx: 21:25 Cataracts; Diabetes - NIDDM; DIALYSIS MWF; Hypertension; as6 - PSHx: 21:25 dialysis on the left arm; as6 - Immunization history:: Adult Immunizations up to date. - Social history:: Smoking status: Patient denies any tobacco usage or history of. Screenin:26 Abuse screen: Denies threats or abuse. Denies injuries from another. Nutritional as6 screening: No deficits noted. Tuberculosis screening: No symptoms or risk factors identified. Fall Risk None identified. Assessment: 21:10 General: Appears ill, Behavior is cooperative, quiet. General: Behavior is drowsy. as6 Pain: Complains of pain in abdomen. Neuro: Level of Consciousness is awake, alert, obeys commands. Respiratory: Respiratory effort is even, unlabored. GI: Reports upper abdominal pain, nausea. 21:46 General: Son [phone]. as6 Vital Signs: 21:16 BP 231 / 107; Pulse 82; Resp 20 S; Temp 99.1(O); Pulse Ox 95% on R/A; Weight 68.04 kg as6 (R); Height 5 ft. 6 in. (167.64 cm) (R); Pain 8/10; 22:34 BP 217 / 100; Pulse 87; Resp 23 S; Pulse Ox 94% on R/A; as6 23:37 BP 233 / 109; Pulse 83; Resp 16 S; Pulse Ox 93% on R/A; as6 07/03 01:18 BP 211 / ???; Pulse 94; Resp 17 S; Pulse Ox 95% on R/A; as6 04:40 BP 143 / 71; Pulse 82; Resp 19; Pulse Ox 93% ; kd3 07/02 21:16 Body Mass Index 24.21 (68.04 kg, 167.64 cm) as6 ED Course: 07/02 21:14 Patient arrived in ED. as6 21:14 Crow Ibarra, SHALINI is Primary Nurse. as6 21:14 Ariana Sheppard MD is Attending Physician. sd2 21:25 Triage completed. as6 21:26 Arm band placed on. as6 21:26 Bed in low position. Call light in reach. Side rails up X2. Client placed on continuous as6 cardiac and pulse oximetry monitoring. NIBP monitoring applied. 21:35 Maintain EMS IV. Dressing intact. Site clean \T\ dry. Gauge \T\ site: 20g right wrist . as 6 22:47 Notified ED physician of a critical lab result(s). Creatinine of 5.83, Troponin of bb 653.1 Dr Sheppard notified. 07/03 04:53 No provider procedures requiring assistance completed. IV discontinued, intact, kd3 bleeding controlled, No redness/swelling at site. Pressure dressing applied. Administered Medications: 07/02 22:34 Drug: Furosemide 20 mg Route: PO; 07/03 04:54 Follow up: Response: No adverse reaction kd3 07/02 22:34 Drug: HydrALAZINE 50 mg Route: PO; as07/03 04:54 Follow up: Response: No adverse reaction kd3 07/02 22:34 Drug: NIFEdipine 90 mg Route: PO; as07/03 04:54 Follow up: Response: No adverse reaction kd3 07/02 23:21 CANCELLED (Physician Discretion): hydrALAZINE 20 mg IVP once sd2 23:36 Drug: cloNIDine 0.1 mg Route: PO; 07/03 04:54 Follow up: Response: No adverse reaction kd3 07/02 23:36 Drug: Labetalol 20 mg Route: IV; Rate: bolus; Infused Over: 2 mins; Site: right wrist; 07/03 04:54 Follow up: IV Status: Completed infusion kd3 Medication: 04:41 VIS not applicable for this client. kd3 Outcome: 04:38 Discharge ordered by . sd2 04:54 Discharged to home ambulatory. kd3 04:54 Condition: stable 04:54 Discharge instructions given to patient, family, Instructed on discharge instructions, follow up and referral plans. Demonstrated understanding of instructions, follow-up care. 04:57 Patient left the ED. 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 Signatures: Ivanna Amaya Brenda, SHALINI RN Crow Lacy RN RN as6 Belle Velasquez RN RN kd3 Ariana Sheppard MD MD sd2
--- NOTE | 2022-07-03 04:39 | EDPHYS ---
Physician Documentation [facility] Name: Lita Ernst Age: 62 yrs Sex: Female : 1960 Arrival Date: 07/02/2022 Time: 21:14 Bed 2 Private MD: ED Physician Ariana Sheppard HPI: 07/02 21:41 This 62 yrs old Black Female presents to ER via EMS with complaints of vomiting. sd2 21:41 62-year-old female presents via EMS with chief complaint of vomiting. She reports that sd2 she had her normal dialysis earlier today for 2 hours without issue and had elevated blood pressure at that time. She reports not being able to keep anything down at home today and therefore has not taken any of her medications including her blood pressure medications. She is not taking anything for her nausea or vomiting prior to arrival but did receive 10 mg of Reglan by EMS. The patient also received 20 mg total of labetalol for a significantly elevated blood pressure. The patient denies any symptoms related to your blood pressure including headaches, blurred vision, chest pain or shortness of breath. Patient denies any associated fever or diarrhea or urinary symptoms. She does continue to make a small amount of urine. Patient reports no prior issues with vomiting or history of diabetic gastroparesis. She otherwise denies any acute complaints at this time.. Historical: - Allergies: 21:25 unknown med; as6 - PMHx: 21:25 Cataracts; Diabetes - NIDDM; DIALYSIS MWF; Hypertension; as6 - PSHx: 21:25 dialysis on the left arm; as6 - Immunization history:: Adult Immunizations up to date. - Social history:: Smoking status: Patient denies any tobacco usage or history of. ROS: 21:41 Constitutional: Negative for fever, chills, and weight loss, Eyes: Negative for injury, sd2 pain, redness, and discharge, Cardiovascular: Negative for chest pain, palpitations, and edema, Respiratory: Negative for shortness of breath, cough, wheezing. MS/Extremity: Negative for injury and deformity, Skin: Negative for injury, rash, and discoloration, Neuro: Negative for headache, numbness and tingling. 21:41 Abdomen/GI: Positive for nausea and vomiting, Negative for abdominal pain, diarrhea. Exam: 21:41 Constitutional: This is a well developed, well nourished patient who is awake, alert, sd2 and in no acute distress. Head/Face: Normocephalic, atraumatic. Eyes: EOMI, normal conjunctiva bilaterally Chest/axilla: Normal chest wall appearance and motion. Nontender with no deformity. Cardiovascular: Regular rate and rhythm with a normal S1 and S2. No gallops, murmurs, or rubs. 2+ distal pulses. Respiratory: Lungs have equal breath sounds bilaterally, clear to auscultation and percussion. No rales, rhonchi or wheezes noted. No increased work of breathing, no retractions or nasal flaring. Abdomen/GI: Soft, non-tender, with normal bowel sounds. No guarding or rebound. No evidence of tenderness throughout. Skin: Warm, dry with normal turgor. Normal color with no rashes, no lesions, and no evidence of cellulitis. MS/ Extremity: Pulses equal, no cyanosis. Neurovascular intact. Full, normal range of motion. Ambulatory without difficulty. Psych: Awake, alert, with orientation to person, place and time. Behavior, mood, and affect are within normal limits. 21:48 ECG was reviewed by the Attending Physician. NSR, rate 82, no STEMI criteria, wandering sd2 baseline present Vital Signs: 21:16 BP 231 / 107; Pulse 82; Resp 20 S; Temp 99.1(O); Pulse Ox 95% on R/A; Weight 68.04 kg as6 (R); Height 5 ft. 6 in. (167.64 cm) (R); Pain 8/10; 22:34 BP 217 / 100; Pulse 87; Resp 23 S; Pulse Ox 94% on R/A; as6 23:37 BP 233 / 109; Pulse 83; Resp 16 S; Pulse Ox 93% on R/A; as6 07/03 01:18 BP 211 / ???; Pulse 94; Resp 17 S; Pulse Ox 95% on R/A; as6 04:40 BP 143 / 71; Pulse 82; Resp 19; Pulse Ox 93% ; kd3 07/02 21:16 Body Mass Index 24.21 (68.04 kg, 167.64 cm) as6 MDM: 07/02 21:15 Patient medically screened. sd2 21:41 Differential Diagnosis gastroenteritis, pancreatitis, dehydration, electrolyte sd2 abnormality, hypertensive emergency, ACS among others. Data reviewed: vital signs, nurses notes. 07/03 04:34 Data reviewed: lab test result(s), EKG. Counseling: I had a detailed discussion with sd2 the patient and/or guardian regarding: the historical points, exam findings, and any diagnostic results supporting the discharge/admit diagnosis, the presence of at least one elevated blood pressure reading (>120/80) during this emergency department visit, lab results, the need for outpatient follow up, to return to the emergency department if symptoms worsen or persist or if there are any questions or concerns that arise at home. Medical screen evaluation completed. [facility] emergency medical condition absent. ED course: Labs reviewed and at baseline for patient. Trop elevated but downtrending from prior levels in our system. Kidney function consistent with patient's dialysis status. She is feeling much improved after Reglan and tolerating PO including her daily BP medications. Pt reports her normal BP at home daily is 200s systolic most of the time but sometimes better. Last BP 143/71 at time of my repeat evaluation. pt is asymptomatic and resting comfortably. She was advised of need for follow up with her doctors regarding her symptoms and blood pressure. She verbalizes understanding of discharge plan and strict return precautions. . 07/02 21:25 Order name: CBC with Diff; Complete Time: 22:39 sd2 07/02 21:25 Order name: CMP; Complete Time: 23:16 sd2 07/02 21:25 Order name: Lipase; Complete Time: 23:16 sd2 07/02 21:25 Order name: Magnesium; Complete Time: 23:16 sd2 07/02 21:25 Order name: Troponin High Sensitivity; Complete Time: 23:16 sd2 07/03 00:09 Order name: Troponin High Sensitivity: Repeat \[id number]; Complete Time: 04:27 sd2 07/02 21:25 Order name: EKG - Nurse/Tech; Complete Time: 21:26 sd2 Administered Medications: 07/02 22:34 Drug: Furosemide 20 mg Route: PO; 07/03 04:54 Follow up: Response: No adverse reaction kd3 07/02 22:34 Drug: HydrALAZINE 50 mg Route: PO; 07/03 04:54 Follow up: Response: No adverse reaction kd07/02 22:34 Drug: NIFEdipine 90 mg Route: PO; 07/03 04:54 Follow up: Response: No adverse reaction kd3 07/02 23:21 CANCELLED (Physician Discretion): hydrALAZINE 20 mg IVP once sd2 23:36 Drug: cloNIDine 0.1 mg Route: PO; 07/03 04:54 Follow up: Response: No adverse reaction kd3 07/02 23:36 Drug: Labetalol 20 mg Route: IV; Rate: bolus; Infused Over: 2 mins; Site: right wrist; 07/03 04:54 Follow up: IV Status: Completed infusion kd3 Disposition Summary: 07/03/22 04:38 Discharge Ordered Location: Home sd2 Problem: new sd2 Symptoms: have improved sd2 Condition: Stable sd2 Diagnosis - Vomiting, unspecified sd2 - Elevated troponin sd2 - Chronic hypertension sd2 Followup: sd2 - With: Private Physician - When: 2 - 3 days - Reason: Recheck today's complaints, Continuance of care, Re-evaluation by your physician Followup: sd2 - With: Emergency Department - When: As needed - Reason: Discharge Instructions: - Discharge Summary Sheet sd2 - Nausea and Vomiting, Adult sd2 Forms: - Medication Reconciliation Form sd2 - Thank You Letter sd2 - Antibiotic Education sd2 - Prescription Opioid Use sd2 Signatures: Dispatcher [employer] EDMS Crow Ibarra RN RN as6 Kyra Hernandez PA PA sb3 Ariana Sheppard MD MD sd2 Belle Velasquez RN kd3 Corrections: (The following items were deleted from the chart) 07/02 23:21 23:21 hydrALAZINE 20 mg IVP once ordered. sd2 sd2 07/03 04:44 04:34 ED course: Labs reviewed and at baseline for patient. Trop elevated but sd2 downtrending from prior levels in our system. Kidney function consistent with patient's dialysis status. She is feeling much improved after Reglan and tolerating PO including her daily BP medications. Pt reports her normal BP at home daily is 200s systolic. Last BP 197/89 at time of my repeat evaluation. pt is asymptomatic and resting comfortably. She was advised of need for follow up with her doctors regarding her symptoms and blood pressure. She verbalizes understanding of discharge plan and strict return precautions. . sd2
[2022-07-03 07:09] VITALS: TEMP 99.1
[2022-07-03 07:18] VITALS: BP 143/71; O2SAT 93
--- NOTE | 2022-07-03 10:38 | EKG ---
Test Date: 2022-07-02 Test Time: 21:24:46 [employer]: [facility] MEASUREMENT RESULTS: Intervals: Rate: 82 TN: 150 QRSD: 90 QT: 452 QTc: 528 [place]: P: 64 TN: 150 QRS: 14 T: 67 INTERPRETIVE STATEMENTS: Normal sinus rhythm Left atrial enlargement Anterior infarct, age undetermined Prolonged QT Abnormal ECG Compared to ECG 04/08/2022 15:50:02 Myocardial infarct finding now present Electronically Signed On 07-03-22 10:36:05 CDT by Phil Rojas
== END 2022-07-03 04:57 | disposition home or self-care (01) ==
LOC: ER 21:10
DX: R11.10 Vomiting, unspecified (principal); R77.8 Other specified abnormalities of plasma proteins; I10 Essential (primary) hypertension; E11.9 Type 2 diabetes mellitus without complications; Z99.2 Dependence on renal dialysis
CPT/HCPCS: 36415; 80053; 83690; 83735; 84484; 85025; 93005

== ENCOUNTER 2023-09-11 11:12 | Emergency (ER) | payer OTHER ==
--- OUTSIDE RECORDS SUMMARY | 2023-09-11 11:40 | XMS REPORT | Continuity of Care Document ---
:1960 Author Organization [facility] t Address [address] [place] [address] Care Team Providers Name Role Phone Luis E Cyr DO Primary Care Physician Doctor Unassigned, [place] Attending Clinician Unavailable Chelsea Larose Attending Clinician Unavailable Rogelio Harley Attending Clinician Unavailable Helena LOYA, Angel Walker Attending Clinician Unavailable MARIBELL JOHNSON Attending Clinician Unavailable Hoa TRACY, Cody Bailey Attending Clinician [phone] Francisco J Tracy MD, Kirk Bass Attending Clinician [phone] Maribell Johnson MD Attending Clinician Cristin Dawson Attending Clinician Unavailable Vero Michaels Attending Clinician Unavailable FEDE PERALES Attending Clinician Unavailable Ezra TRACY, Svetlana Attending Clinician Fede Perales MD Attending Clinician Team, [facility] Attending Clinician Unavailroula PANDEY Attending Clinician Unavailable SARAH BETH MALDONADO Attending Clinician Unavailable Gracie TRACY, Randy Attending Clinician Maddie Christianson DO Attending Clinician Sarah Beth Maldonado MD Attending Clinician Eduardo-Lukasz_A_AH Attending Clinician Unavailable Trini Escalante Attending Clinician Chelsea Larose Admitting Clinician Unavailable Physician, No Primary or Family Admitting Clinician UnavailMoe Kennedy Admitting Clinician Unavailable KIRK RODRIGUEZ JR Admitting Clinician Unavailable Francisco J Tracy MD, Kirk Bass Admitting Clinician [phone] Jacqueline Mota Admitting Clinician Unavailable Vero Michaels Admitting Clinician Unavailable FEDE PERALES Admitting Clinician Unavailable Fede Perales MD Admitting Clinician KATHERIN Admitting Clinician Unavailable MADDIE CHRISTIANSON Admitting Clinician Unavailable Maddie Christianson DO Admitting Clinician Eduardo-Lukasz_A_AH Admitting Clinician Unavailable Trini Escalante Admitting Clinician Payers Payer Name Policy Type Policy Number Effective Date Expiration Date S reji [facility] [id number] 2021 (MEDICARE 00:00:00 REPLACEMENT HMO) [employer] [place] - [id number] 2019 [place] (MEDICARE 00:00:00 REPLACEMENT/ADVANTA GE - HMO) Problems Condition Condition Condition Status Onset Resolution Last Treating Co mments Source Name Details Category Date Date Treatment Clinician Date Hypertensi Hypertensi Disease Active U nivers ve ve 6-27 [place] Calciphyla Calciphyla Disease Active 2021-11 U loree xis xis - ity of 00:00: [place] 00 Medical Branch ESRD (end ESRD (end Disease Active 2021-11 Uni vers stage stage 1-28 ity of renal renal 00:00: [place] disease) disease) 00 Medica l on on Branch dialysis dialysis Hyperkalem Hyperkalem Disease Active 2021-11 U loree ia ia 1-25 ity of 00:00: [place] 00 Medical Branch AMS AMS Disease Active 2021-11 Univers (altered (altered 12-19 ity of mental mental 00:00: [place] status) status) 00 Medical Branch Seizure Seizure Disease Active Univers 5-15 ity of 00:00: [place] 00 Medical Branch 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 U loree protein-ca protein-ca 5-03 it y of yessica yessica 00:00: [place] malnutriti malnutriti 00 Me dical on on Branch Status Status Disease Active Univers epilepticu epilepticu 29 it y of s s 00:00: [place] 00 Medical Branch ACUTE ACUTE Diagnosis Active 2018-112019-11-04 Mem oria INTRACEREB INTRACEREB 12-22 21:57:00 l RAL RAL 00:00: González HEMORRHAGE HEMORRHAGE 00 Active 10/22/2019 [facility] IP IPH Diagnosis Active 2018-112019-10-23 Mem oria Active 12-22 02:28:00 l 10/22/2019 00:00: Matthew hudson 00 [facility] NONTRAUMAT NONTRAUMA Diagnosis Active 2019-11-04 Memoria IC TIC 21:57:00 l INTRACEREB INTRACEREB He rmann RAL RAL HEMORRHAGE HEMORRHAGE , U , U Active [facility] ILLNESS, ILLNESS, Diagnosis Active 2019-10-23 Memoria UNSPECIFIE UNSPECIFIE 02:28:00 l D D Active González [facility] Illness, Illness, Problem 2019-10-29 Memoria unspecifie unspecifie 22:28:52 l d d González 10/29/2019 [facility] Type II Type II Problem Active 2019-10-29 Me moria diabetes diabetes 22:28:52 l mellitus mellitus Matthew hudson uncontroll uncontroll ed ed (finding) (finding) Active Problem 10/29/2019 [facility] Allergies, Adverse Reactions, Alerts Allergy Allergy Status Severity Reaction(s) Onset Inactive Treating Comm ents Source Name Type Date Date Clinician No Known DA Active [facility] 9-06 Clear s 00:00: [address] No Known DA Active [facility] Allergie 3-20 [place] 00:00: [address] No Known DA Active [facility] Allergie 7 Clear s 00:00: [address] No Known DA Active [facility] Allergie 7 [place] s 00:00: [address] No Known DA Active U 2007-0 [facility] Drug 06-02 [place] Intolera 00:00: [address] No Known DA Active U 2007-0 [facility] Contrast 05-28 [place] Allergie 00:00: [address] No Known DA Active U 2007-0 [facility] Drug 05-28 [place] Allergie 00:00: [address] No Known DA Active U 2007-0 [facility] Food 05-28 [place] Allergie 00:00: [address] No Known DA Active U 2007-0 [facility] Other 05-28 [place] Allergie 00:00: [address] NO KNOWN Drug Active Univers ALLERGIE Class ity of S [place] [facility] Family History Family Member Diagnosis Comments Start Date Stop Date Source Natural father Hypertension Universi ty [facility] Natural mother Hypertension [facility] Social History Social Habit Start Date Stop Date Quantity Comments Source History of tobacco Passive smoker Un iversity of use [place] [facility] History SDOH Social Unive rsity of [facility] Med ical Together Branch History SDOH Social Unive rsity of [facility] Medical Branch History SDOH Social Unive rsity of [facility] Medical Membership Branch History SDMO Social Unive rsity of [facility] Medical Meetings Branch Gender identity Universit y [facility] Medical [place] Sexual orientation Univer sity of [place] [facility] History SDOH Food 2023-05-22 2023-05-22 1 Univers ity of Worry 00:00:00 00:00:00 [place] [facility] History SDOH Food 2023-05-22 2023-05-22 1 Univers ity of Scarcity 00:00:00 00:00:00 [place] [facility] History SDOH 2023-05-22 2023-05-22 2 University o f Transport Med 00:00:00 00:00:00 [place] [facility] History SDOH 2023-05-22 2023-05-22 2 University o f Transport Non-Med 00:00:00 00:00:00 [place] M edical Branch History SDOH 2023-05-22 2023-05-22 3 University o f Alcohol Frequency 00:00:00 00:00:00 [place] M edical Branch History SDOH 2023-05-22 2023-05-22 1 University o f Alcohol Std Drinks 00:00:00 00:00:00 [place] [facility] History SDOH 2023-05-22 2023-05-22 1 University o f Alcohol Binge 00:00:00 00:00:00 [place] Medic al Branch History SDOH Social 2023-05-22 2023-05-22 5 Unive rsity of Connections Phone 00:00:00 00:00:00 [place] M edical Branch History SDOH Social 2023-05-22 2023-05-22 5 Unive rsity of Connections Living 00:00:00 00:00:00 [place] [facility] History SDOH 2023-05-22 2023-05-22 3 University o f Physical Activity 00:00:00 00:00:00 [place] M edical DPW Branch History SDOH 2023-05-22 2023-05-22 1 University o f Physical Activity 00:00:00 00:00:00 [place] M edical MPS Branch History SDOH 2023-05-22 2023-05-22 5 University o f Financial 00:00:00 00:00:00 [place] [facility] History SDOH 2023-05-22 2023-05-22 2 University o f Housing Unable to 00:00:00 00:00:00 [place] M edical Pay Branch History SDOH 2023-05-22 2023-05-22 1 University o f Housing Places 00:00:00 00:00:00 [place] Medi denae Lived Branch History SDOH 2023-05-22 2023-05-22 2 University o f Housing Homeless 00:00:00 00:00:00 [place] Me dical Last Year Branch History of Social 2023-05-22 2023-05-22 Univers ity of function 00:00:00 00:00:00 [place] [facility] Exposure to 2022-10-13 2022-10-23 Not sure University SARS-CoV-2 (event) 00:00:00 10:09:00 [facility] Tobacco use and 2022-10-19 2022-10-19 Smokeless Universit y of exposure 00:00:00 00:00:00 tobacco non-user [facility] Social History 2019-10-23 2019-10-23 [facility] 20:28:16 20:28:16 Sex [birth year] Universit y of 00:00:00 00:00:00 [facility] Smoking Status Start Date Stop Date Source Never smoked tobacco [facility] Medications Ordered Filled Start Stop Current Ordering Indication Dosage Frequency Signature Comments Components Source Medication Medication Date Date Medication? Clinician (SIG) Name Name levETIRAcet Yes [id number] 250mg Take 1 Univers am 250 mg 7-03 tablet by ity o f tablet 00:00: mouth [place] 00 every Medical Saturday, Branch and Saturday in the evening. aspirin 81 Yes [id number] 81mg Take 1 Univers mg chewable 7-03 tablet by ity of tablet 00:00: mouth in [place] 00 the Medical morning. [place] levETIRAcet Yes [id number] 250mg Take 1 Univers am 250 mg 7-03 tablet by ity o f tablet 00:00: mouth [place] 00 every Medical Saturday, Branch and Saturday in the evening. aspirin 81 0 Yes [id number] 81mg Take 1 Univers mg chewable 7-03 tablet by ity of tablet 00:00: mouth in [place] 00 the Medical morning. Branch levETIRAcet Yes [id number] 250mg Take 1 Univers am 250 mg 7-03 tablet by ity o f tablet 00:00: mouth [place] 00 every Medical Saturday, Branch and Saturday in the evening. aspirin 81 0 Yes [id number] 81mg Take 1 Univers mg chewable 7-03 tablet by ity of tablet 00:00: mouth in [place] 00 the Medical morning. [place] levETIRAcet Yes [id number] 250mg Take 1 Univers am 250 mg 7-03 tablet by ity o f tablet 00:00: mouth [place] 00 every Medical Saturday, Branch and Saturday in the evening. aspirin 81 0 Yes [id number] 81mg Take 1 Univers mg chewable 7-03 tablet by ity of tablet 00:00: mouth in [place] 00 the Medical morning. Branch ferrous 2022-0 Yes 325mg Take 325 Unive rs sulfate 325 7-02 mg by ity of mg (65 mg 16:19: mouth 2 [place] iron) 00 (two) Medical tablet times Branch daily. ferrous 2022-0 Yes 325mg Take 325 Unive rs sulfate 325 7-02 mg by ity of mg (65 mg 16:19: mouth 2 [place] iron) 00 (two) Medical tablet times Branch daily. ferrous 2022-0 Yes 325mg Take 325 Unive rs sulfate 325 7-02 mg by ity of mg (65 mg 16:19: mouth 2 [place] iron) 00 (two) Medical tablet times Branch daily. ferrous 2022-0 Yes 325mg Take 325 Unive rs sulfate 325 7-02 mg by ity of mg (65 mg 16:19: mouth 2 [place] iron) 00 (two) Medical tablet times Branch daily. carvediloL 2022- No 6.25mg Take 6.25 Univers 6.25 mg 7- 07-02 mg by ity of tablet 12:05: 00:00 mouth 2 [place] 23 :00 (two) Medical times Branch daily with meals. atorvastati 2022- No 20mg Take 20 mg Univers n 20 mg 05-26 by mouth ity of tablet 12:05: 00:00 at [place] 23 :00 bedtime. Medical Branch aspirin 81 2022- No 1{tbl} Take 1 Un samantha mg chewable 05-26 tablet by it y of tablet 12:05: 00:00 mouth in [place] 23 :00 the Medical morning. Branch olmesartan 2022- No 40mg Take 40 mg Univers 40 mg 05-26 by mouth. ity of tablet 12:05: 00:00 [place] 23 :00 Medical Branch carvediloL Yes [id number] 25mg Take 1 Univers 25 mg 7-02 tablet by ity of tablet 00:00: mouth in [place] 00 the Medical morning Branch and 1 tablet in the evening. Take with meals. hydrALAZINE 2022-0 Yes [id number] 100mg Take 1 Univers 100 mg 7-02 tablet by ity of tablet 00:00: mouth [place] 00 every 8 Medical (eight) Branch hours. NIFEdipine 2022-0 Yes [id number] 90mg Take 1 Univers ER 90 mg 7-02 tablet by ity of tablet 00:00: mouth in [place] 00 the Medical morning. Branch cloNIDine 2022-0 Yes [id number] .2mg Take 1 U nivers 0.2 mg 7-02 tablet by ity of tablet 00:00: mouth in [place] 00 the Medical morning Branch and 1 tablet in the evening. levETIRAcet 2022-0 Yes [id number] 500mg Take 1 Univers am 500 mg 7-02 tablet by ity o f tablet 00:00: mouth [place] 00 every Medical evening. Branch atorvastati 2022-0 Yes [id number] 40mg Take 1 Univers n 40 mg 7-02 tablet by ity of tablet 00:00: mouth at [place] 00 bedtime. Medical Branch carvediloL 2022-0 Yes [id number] 25mg Take 1 Univers 25 mg 7-02 tablet by ity of tablet 00:00: mouth in [place] 00 the Medical morning Branch and 1 tablet in the evening. Take with meals. hydrALAZINE 2022-0 Yes [id number] 100mg Take 1 Univers 100 mg 7-02 tablet by ity of tablet 00:00: mouth [place] 00 every 8 Medical (eight) Branch hours. NIFEdipine 2022-0 Yes [id number] 90mg Take 1 Univers ER 90 mg 7-02 tablet by ity of tablet 00:00: mouth in [place] 00 the Medical morning. Branch cloNIDine 2022-0 Yes [id number] .2mg Take 1 U nivers 0.2 mg 7-02 tablet by ity of tablet 00:00: mouth in [place] 00 the Medical morning Branch and 1 tablet in the evening. levETIRAcet 2022-0 Yes [id number] 500mg Take 1 Univers am 500 mg 7-02 tablet by ity o f tablet 00:00: mouth [place] 00 every Medical evening. Branch atorvastati 2022-0 Yes [id number] 40mg Take 1 Univers n 40 mg 7-02 tablet by ity of tablet 00:00: mouth at [place] 00 bedtime. Medical Branch carvediloL 2022-0 Yes [id number] 25mg Take 1 Univers 25 mg 7-02 tablet by ity of tablet 00:00: mouth in [place] 00 the Medical morning Branch and 1 tablet in the evening. Take with meals. hydrALAZINE 3-0 Yes [id number] 100mg Take 1 Univers 100 mg 7-02 tablet by ity of tablet 00:00: mouth [place] 00 every 8 Medical (eight) Branch hours. NIFEdipine 2022-0 Yes [id number] 90mg Take 1 Univers ER 90 mg 7-02 tablet by ity of tablet 00:00: mouth in [place] 00 the Medical morning. Branch cloNIDine 2022-0 Yes [id number] .2mg Take 1 U nivers 0.2 mg 7-02 tablet by ity of tablet 00:00: mouth in [place] 00 the Medical morning Branch and 1 tablet in the evening. levETIRAcet 2022-0 Yes [id number] 500mg Take 1 Univers am 500 mg 7-02 tablet by ity o f tablet 00:00: mouth [place] 00 every Medical evening. Branch atorvastati 2022-0 Yes [id number] 40mg Take 1 Univers n 40 mg 7-02 tablet by ity of tablet 00:00: mouth at [place] 00 bedtime. Medical Branch carvediloL 2022-0 Yes [id number] 25mg Take 1 Univers 25 mg 7-02 tablet by ity of tablet 00:00: mouth in [place] 00 the Medical morning Branch and 1 tablet in the evening. Take with meals. hydrALAZINE 2022-0 Yes [id number] 100mg Take 1 Univers 100 mg 7-02 tablet by ity of tablet 00:00: mouth [place] 00 every 8 Medical (eight) Branch hours. NIFEdipine 2022-0 Yes [id number] 90mg Take 1 Univers ER 90 mg 7-02 tablet by ity of tablet 00:00: mouth in [place] 00 the Medical morning. Branch cloNIDine 2022-0 Yes [id number] .2mg Take 1 U nivers 0.2 mg 7-02 tablet by ity of tablet 00:00: mouth in [place] 00 the Medical morning Branch and 1 tablet in the evening. levETIRAcet 3-0 Yes [id number] 500mg Take 1 Univers am 500 mg 7-02 tablet by ity o f tablet 00:00: mouth [place] 00 every Medical evening. Branch atorvastati Yes [id number] 40mg Take 1 Univers n 40 mg 05-26 tablet by ity of tablet 00:00: mouth at [place] 00 bedtime. Medical Branch levETIRAcet Yes 500mg 500 mg, Un samantha am (KEPPRA) 05-25 Oral, ity of tablet 500 22:00: DAILY AT [place] mg 00 0, Medical First dose Branch on 05/25/23 at 1700, Until Discontinu ed, Routine Sliding Yes Subcutaneo Univ ers Scale 05-25 us, TID ity of Insulin - 17:15: MEALS+HS, [place] Lispro 00 First dose Medical (HumaLOG) on Sat Branch 05/25/23 at 1215, Until Discontinu ed, Routine cloNIDine Yes .2mg 0.2 mg, Unive rs (CATAPRES) 05-25 Oral, BID, ity of tablet 0.2 13:45: First dose [place] mg 00 (after Medical last Branch modificati on) on 05/25/23 at 0845, Until Discontinu ed, Routine hydrALAZINE Yes 100mg 100 mg, Un samantha (APRESOLINE 05-25 Oral, Q8H ity of ) tablet 12:00: ABX, First [place] 100 mg 00 dose Medical (after Branch last modificati on) on 05/25/23 at 0700, Until Discontinu ed, Routine levETIRAcet Yes 250mg 250 mg, Un samantha am (KEPPRA) 05-24 Oral, ity of tablet 250 22:00: QMON// [place] mg 00 SAT AT Medical 1700, Branch First dose on Sat05/24/23 at 1700, Until Discontinu ed, Routine carvediloL Yes 25mg 25 mg, Unive rs (COREG) 05-24 Oral, BID ity of tablet 25 22:00: MEALS, [place] mg 00 First dose Medical (after Branch last modificati on) on Sat05/24/23 at 1700, Until Discontinu ed, MARIKA heparin 0 Yes 2000U PRN - SEE Univ ers 1,000 6 INSTRUCTIO ity of unit/mL 12:17: NS, [place] injection 13 Starting Medica l 2,000 Units on Sat Branch 05/24/23 at 0717, Until Discontinu ed, Routine
For Priming of Ports:&nbs p; &n bsp; After initial saline flush, prime each port with heparin according to the priming volume listed on each catheter port for catheter lock.
hydrALAZINE 2022- No 75mg 75 mg, Uni vers (APRESOLINE 05-24 Oral, Q8H it y of ) tablet 75 12:00: 07:18 ABX, First [place] mg 00 :09 dose Medical (after Branch last modificati on) on Sat05/24/23 at 0700, Until Discontinu ed, Routine hydrALAZINE 2022- No 50mg 50 mg, Uni vers (APRESOLINE 05-24 Oral, Q8H it y of ) tablet 50 04:00: 11:08 ABX, First [place] mg 00 :51 dose Medical (after Branch last modificati on) on [place] 05/23/23 at 2300, Until Discontinu ed, Routine hydralAZINE 2022- No 10mg 10 mg, Uni vers (APRESOLINE 05-24 Slow IV ity of ) injection 00:19: 13:37 [place], [place] 10 mg 47 :56 Q4HPRN, Medical Starting Branch on [place] 05/23/23 at 1919, Until 05/25/23 at 0837, Routine, DBP=>100; SBP=>160 cloNIDine 2022- No .1mg 0.1 mg, Univ ers (CATAPRES) 05-23 Oral, BID, it y of tablet 0.1 22:45: 13:37 First dose [place] mg 00 :56 on [facility] Medical 05/23/23 at Branch 1745, Until Discontinu ed, Routine gadobenate 2022- No [id number] .2mL/kg 13.2 mL Univers dimeglumine 05-23 (0.2 mL/kg i ty of (MULTIHANCE 21:30: 21:02 ?66 kg), [place] -15 mL) 00 :00 Intravenou Medica l injection s, ONCE, 1 Bran ch 13.2 mL dose, On [facility] 05/23/23 at 1630, Routine hydrALAZINE 2022- No 50mg 50 mg, Uni vers (APRESOLINE 05-23 Oral, ity of ) tablet 50 20:45: 20:04 ONCE, 1 [place] mg 00 :00 dose, On Medical [facility] 05/23/23 at 1545, Routine labetaloL 2022- No 10mg 10 mg, Unive rs (NORMODYNE) 05-23 Slow IV ity of injection 14:00: 13:12 Push, [place] 10 mg 00 :00 ONCE, 1 Medical dose, On Branch [facility] 05/23/23 at 0900, MARIKA carvediloL 2022- No 12.5mg 12.5 mg, Univers (COREG) 05-23 Oral, BID ity of tablet 12.5 13:30: 14:19 MEALS, [place] mg 00 :09 First dose Medical (after Branch last modificati on) on [facility] 05/23/23 at 0830, Until Discontinu ed, MARIKA hydralAZINE 2022- No 10mg 10 mg, Uni vers (APRESOLINE 05-23 Slow IV ity of ) injection 13:30: 12:45 [place], [place] 10 mg 00 :00 ONCE, 1 Medical dose, On Branch [facility] 05/23/23 at 0830, STAT hydralAZINE 2022- No 10mg 10 mg, Uni vers (APRESOLINE 05-23 Slow IV ity of ) injection 13:00: 12:19 [place], [place] 10 mg 00 :00 ONCE, 1 Medical dose, On Branch [facility] 05/23/23 at 0800, STAT hydrALAZINE 2022- No 50mg 50 mg, Uni vers (APRESOLINE 05-23 Oral, ity of ) tablet 50 09:50: 19:57 Q8HPRN, [place] mg 56 :21 Starting Medical on [facility] 05/23/23 at 0450, Until [facility] 05/23/23 at 1457, Routine, SBP > 160, DBP > 100 atorvastati 0 Yes 40mg 40 mg, Univ ers n (LIPITOR) 05-23 Enteral, ity of tablet 40 02:00: QHS, First [place] mg 00 dose Medical (after Branch last modificati on) on Sat05/22/23 at 2100, Until Discontinu ed, Routine sevelamer 0 Yes 1.6g 1.6 g, Univer s carbonate 05-22 Oral, TID ity o f (RENVELA) 22:00: MEALS, [place] powder 00 First dose Medical packet 1.6 on Sat g 05/22/23 at 1700, Until Discontinu ed, Routine
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 Restricted medication : KIRK RODRIGUEZ JR NIFEdipine Yes 90mg 90 mg, Unive rs ER tablet 05-22 Oral, ity of 90 mg 14:00: DAILY, [place] 00 First dose Medical on Sat05/22/23 at 0900, Until Discontinu ed, Routine aspirin 0 Yes 81mg 81 mg, Univers chewable 05-22 Enteral, ity of tablet 81 14:00: DAILY, [place] mg 00 First dose Medical (after Branch last modificati on) on Sat05/22/23 at 0900, Until Discontinu ed, Routine heparin 0 Yes 5000U 5,000 Univers (porcine) 05-22 Units, ity of injection 13:00: Subcutaneo [place] 5,000 Units 00 us, Q12H, Med ical First dose Branch on Sat05/22/23 at 0800, Until Discontinu ed, Routine pantoprazol 0 Yes 40mg 40 mg, Univ ers e 05-22 Slow IV ity of (PROTONIX) 05:00: Push, [place] injection 00 Q24H, Medical 40 mg First dose Branch on Sat05/22/23 at 0000, Until Discontinu ed carvediloL 2022- No 6.25mg 6.25 mg, Univers (COREG) 05-22 Oral, BID ity of tablet 6.25 03:30: 13:02 MEALS, [place] mg 00 :40 First dose Medical on Sat05/21/23 at 2230, Until Discontinu ed, Routine iopamidol 2022- No [id number] 100mL 100 mL, Univers (ISOVUE 05-22 Intravenou ity o f 370-500 mL) 03:00: 01:50 s, ONCE, 1 [place] injection 00 :00 dose, On Medica l 100 mL [facility] Branch 05/21/23 at 2200, Routine trimethoben Yes 100mg 100 mg, Un samantha zamide 05-22 Intramuscu ity of (TIGAN) 02:55: lar, [place] injection 44 Q6HPRN, Medical 100 mg Starting Branch on Sat05/21/23 at 2155, Until Discontinu ed, Routine, Nausea and Vomiting (N/V) metoclopram 2022- No 5mg 5 mg, Slow Univers carmencita HCl 05-21 IV Push, ity of (REGLAN) 22:45: 00:32 ONCE, 1 [place] injection 5 00 :00 dose, On Medi denae mg [facility] 05/21/23 at 1745, Routine niCARdipine 2022- No 2.5mg/h 2.5-15 Univers (CARDENE 05-21- mg/hr ity of I.V.) 40 mg 22:33: 00:06 (12.5-75 [place] in NaCL 200 18 :14 mL/hr), IV Me dical mL (RTU) Infusion, Branch infusion TITRATE, SBP 160-180, Starting on Sat05/21/23 at 1733
In itiate infusion at 2.5 mg/hr.&nbs p; Ti trate by 2.5 mg/hr every 5 minutes to 15 minutes as needed to achieve and maintain goal blood pressure. Maximum dose = 15 mg/hr. If goal not maintained at maximum allowed dose, contact prescriber .
clopidogreL 2022- No 300mg 300 mg, U nivers (PLAVIX) 05-21 Oral, ity of 300 mg 22:30: 22:05 ONCE, 1 [place] tablet 300 00 :00 dose, On Medic al mg [facility] 05/21/23 at 1730, Routine thiamine 2022- No 100mg IV Univers (VITAMIN 05-21 Piggyback, ity of B1) 100 mg 22:00: 13:59 DAILY, 5 [place] in NaCl 00 :00 doses, Medical 0.9% (NS) First dose Bran ch piggyback on Sat05/21/23 at 1700, Last dose on Sat05/25/23 at 0900, 50 mL Sliding 2022- No Subcutaneo Uni vers Scale 05-21 0701 us, TID ity of Insulin - 22:00: 17:11 MEALS+HS, [place] Lispro 00 :50 First dose Medical (HumaLOG) on Sat Branch 05/21/23 at 1700, Until Discontinu ed, Routine phenytoin 2022- No 100mg 100 mg, Uni vers (DILANTIN) 05-21 0630 Intravenou it y of injection 22:00: 21:20 s, Q8H, [place] 100 mg 00 :52 First dose Medical on Sat Branch 05/21/23 at 1700, Until Discontinu ed, Routine dextrose Yes 250mL 250 mL, IV Un samantha 10% (D10W) 05-21 Infusion, ity of bolus 21:44: PRN - SEE [place] infusion 29 INSTRUCTIO Medic al 250 mL NS, Branch Administer over 60 Minutes, Other, If blood glucose is < or = 70 mg/dL and patient is unable to swallow or has mental status changes, Starting on Sat05/21/23 at 1644
If blood glucose is < or = 70 mg/dL and patient is unable to swallow or has mental status changes (Give glucagon order if patient needs fluid restrictio n): IF IV access available: Dextrose 10%. 1. 125 mL (? bag) of D10W IV infusion - equivalent to 12.5 g dextrose 2. Blood glucose - draw blood glucose 15 minutes after D10W Administra tion. 3. If blood glucose is < 80 mg/dL, repeat.
glucagon Yes 1mg 1 mg, Univers (GLUCAGEN 05-21 Intramuscu ity of DIAGNOSTIC 21:44: lar, PRN, [place] KIT) 23 Starting Medical injection 1 on Sat Branch 05/21/23 at 1644, Until Discontinu ed, MARIKA, Blood Glucose < or = 70 mg/dL and patient is NPO, unable to swallow or has mental changes. sodium 2021-11 Yes [id number] Inject 100 Un samantha thiosulfate 2-02 mL ity of 12.5 00:00: intravenou [place] gram/50 mL 00 sly every Medi denae (250 mg/mL) Saturday, Branc h solution Saturday and Saturday. sodium 2021-11 Yes [id number] Inject 100 Un samantha thiosulfate 2-02 mL ity of 12.5 00:00: intravenou [place] gram/50 mL 00 sly every Medi denae (250 mg/mL) Saturday, Branc h solution Saturday and Saturday. sodium 2021-11 Yes [id number] Inject 100 Un samantha thiosulfate 2-02 mL ity of 12.5 00:00: intravenou [place] gram/50 mL 00 sly every Medi denae (250 mg/mL) Saturday, Branc h solution Saturday and Saturday. sodium 2021-11 Yes [id number] Inject 100 Un samantha thiosulfate 2-02 mL ity of 12.5 00:00: intravenou [place] gram/50 mL 00 sly every Medi denae (250 mg/mL) Saturday, Branc h solution Saturday and Saturday. sodium 2021-11 Yes [id number] Inject 100 Un sam[place] thiosulfate 2-02 mL ity of 12.5 00:00: intravenou [place] gram/50 mL 00 sly every Medi denae (250 mg/mL) Saturday, Branc h solution Saturday and Saturday. sodium 2021-11 Yes [id number] Inject 100 Un samantha thiosulfate 2-02 mL ity of 12.5 00:00: intravenou [place] gram/50 mL 00 sly every Medi denae (250 mg/mL) Saturday, Branc h solution Saturday and Saturday. sodium 2021-11 Yes [id number] Inject 100 Un [place] thiosulfate 2-02 mL ity of 12.5 00:00: intravenou [place] gram/50 mL 00 sly every Medi denae (250 mg/mL) Saturday, Branc h solution Saturday and Saturday. sodium 2021-11 Yes [id number] Inject 100 Un [place] thiosulfate 2-02 mL ity of 12.5 00:00: intravenou [place] gram/50 mL 00 sly every Medi denae (250 mg/mL) Saturday, Branc h solution Saturday and Saturday. sodium 2021-11 Yes [id number] Inject 100 Un [place] thiosulfate 2-02 mL ity of 12.5 00:00: intravenou [place] gram/50 mL 00 sly every Medi denae (250 mg/mL) Saturday, Branc h solution Saturday and Saturday. sodium 2021-11 Yes [id number] Inject 100 Un samantha thiosulfate 2-02 mL ity of 12.5 00:00: intravenou [place] gram/50 mL 00 sly every Medi denae (250 mg/mL) Saturday, Branc h solution Saturday and Saturday. ferrous 2021-11 Yes 325mg Take 325 Unive rs sulfate 325 2-01 mg by ity of mg (65 mg 17:14: mouth 2 [place] iron) 18 (two) Medical tablet times Branch daily. carvediloL 2021-11 Yes 6.25mg Take 6.25 Univers 6.25 mg 2-01 mg by ity of tablet 17:14: mouth 2 [place] 18 (two) Medical times Branch daily with meals. atorvastati 2021-11 Yes 20mg Take 20 mg Univers n 20 mg 2-01 by mouth ity of tablet 17:14: at [place] 18 bedtime. Medical Branch aspirin 81 2021-11 Yes 1{tbl} Take 1 Uni vers mg chewable 2-01 tablet by ity of tablet 17:14: mouth in [place] 18 the Medical morning. Branch olmesartan 2021-11 Yes 40mg Take 40 mg U nivers 40 mg 2-01 by mouth. ity of tablet 17:14: [place] 18 Medical Branch ferrous 2021-11 Yes 325mg Take 325 Unive rs sulfate 325 2-01 mg by ity of mg (65 mg 17:14: mouth 2 [place] iron) 18 (two) Medical tablet times Branch daily. carvediloL 2021-11 Yes 6.25mg Take 6.25 Univers 6.25 mg 2-01 mg by ity of tablet 17:14: mouth 2 [place] 18 (two) Medical times Branch daily with meals. atorvastati 2021-11 Yes 20mg Take 20 mg Univers n 20 mg 2-01 by mouth ity of tablet 17:14: at [place] 18 bedtime. Medical Branch aspirin 81 2021-11 Yes 1{tbl} Take 1 Uni vers mg chewable 2-01 tablet by ity of tablet 17:14: mouth in [place] 18 the Medical morning. Branch olmesartan 2021-11 Yes 40mg Take 40 mg U nivers 40 mg 2-01 by mouth. ity of tablet 17:14: 18 Medical Branch ferrous 2021- Yes 325mg Take 325 Unive rs sulfate 325 2-01 mg by ity of mg (65 mg 17:14: mouth 2 [place] iron) 18 (two) Medical tablet times Branch daily. carvediloL 2021-11 Yes 6.25mg Take 6.25 Univers 6.25 mg 2-01 mg by ity of tablet 17:14: mouth 2 [place] 18 (two) Medical times Branch daily with meals. atorvastati 2021-11 Yes 20mg Take 20 mg Univers n 20 mg 2-01 by mouth ity of tablet 17:14: at [place] [address] bedtime. Medical Branch aspirin 81 2021-11 Yes 1{tbl} Take 1 Uni vers mg chewable 2-01 tablet by ity of tablet 17:14: mouth in [place] 18 the Medical morning. Branch olmesartan 2021-11 Yes 40mg Take 40 mg U nivers 40 mg 2-01 by mouth. ity of tablet 17:14: [place] 18 Medical Branch ferrous 2021-11 Yes 325mg Take 325 Unive rs sulfate 325 2-01 mg by ity of mg (65 mg 17:14: mouth 2 [place] iron) 18 (two) Medical tablet times Branch daily. carvediloL 2021-11 Yes 6.25mg Take 6.25 Univers 6.25 mg 2-01 mg by ity of tablet 17:14: mouth 2 [place] 18 (two) Medical times Branch daily with meals. atorvastati 2021-11 Yes 20mg Take 20 mg Univers n 20 mg 2-01 by mouth ity of tablet 17:14: at [place] 18 bedtime. Medical Branch aspirin 81 2021-11 Yes 1{tbl} Take 1 Uni vers mg chewable 2-01 tablet by ity of tablet 17:14: mouth in [place] 18 the Medical morning. Branch olmesartan 2021-11 Yes 40mg Take 40 mg U nivers 40 mg 2-01 by mouth. ity of tablet 17:14: [place] 18 Medical Branch ferrous 2021-11 Yes 325mg Take 325 Unive rs sulfate 325 2-01 mg by ity of mg (65 mg 17:14: mouth 2 [place] iron) 18 (two) Medical tablet times Branch daily. carvediloL 2021-11 Yes 6.25mg Take 6.25 Univers 6.25 mg 2-01 mg by ity of tablet 17:14: mouth 2 [place] 18 (two) Medical times Branch daily with meals. atorvastati 2021-11 Yes 20mg Take 20 mg Univers n 20 mg 2-01 by mouth ity of tablet 17:14: at [place] [address] bedtime. Medical Branch aspirin 81 2021-11 Yes 1{tbl} Take 1 Uni vers mg chewable 2-01 tablet by ity of tablet 17:14: mouth in [place] [address] the Medical morning. Branch olmesartan 2021-11 Yes 40mg Take 40 mg U nivers 40 mg 2-01 by mouth. ity of tablet 17:14: [place] [address] Medical Branch sodium 2021-11 Yes [id number] 25g 25,000 mg U nivers thiosulfate 30 (25 g), ity o f solution 22:00: Intravenou [place] 25,000 mg 00 s, Medical QMON// Branch SAT, First dose (after last modificati on) on Sat10/24/22 at 1600, Until Discontinu ed, Routine epoetin 2021-11- No 4000U 4,000 Univers [id number] 12-24 Units, ity of (RETACRIT) 19:45: 21:06 Slow IV [place] injection 00 :00 Push, Medical 4,000 Units DIALYSIS Bran ch ONCE - JUANJO DSU, 1 dose, On Sat10/24/22 at 1345, Routine
Facult y member approving Restricted medication : CODY BHATIA lidocaine 2021-11- No .3mL 0.3 mL, Univ ers 1% (PF) 12-24 Infiltrati ity o f (XYLOCAINE) 19:45: 21:02 on, ONCE, [place] injection 00 :00 1 dose, On Medi denae 0.3 mL [facility] 10/24/22 at 1345, Routine spironolact 2021-11- No 50mg Take 50 mg Univers one 50 mg 1-30 11-30 by mouth 2 ity of tablet 13:31: 00:00 (two) [place] 56 :00 times Medical daily. Branch doxazosin 2 2021-11- No 2mg Take 2 mg Univers mg tablet -30 11-30 by mouth ity o f 13:31: 00:00 daily. [place] 56 :00 Medical Branch sevelamer 2021-11- No 800mg Take 800 Un samantha 800 mg 1-30 11-30 mg by ity of tablet 13:31: 00:00 mouth. [place] 56 :00 Medical Branch phenytoin 2021-11- No 300mg Take 300 Un samantha ER 300 mg 1-30 11-30 mg by ity of ER capsule 13:31: 00:00 mouth. [place]bbie kim 56 :00 Medical Branch amLODIPine 2021-11- No 10mg Take 10 mg Univers 10 mg -30 11-30 by mouth ity of tablet 13:31: 00:00 in the [place] 56 :00 morning. Medical Branch lisinopriL 2021-11- No 10mg Take 10 mg Univers 10 mg 1-30 11-30 by mouth ity of tablet 13:31: 00:00 in the [place] 56 :00 morning. Medical Branch spironolact 2021-11- No 50mg Take 50 mg Univers one 50 mg -30 11-30 by mouth 2 ity of tablet 13:31: 00:00 (two) [place] 56 :00 times Medical daily. Branch doxazosin 2 2021-11- No 2mg Take 2 mg Univers mg tablet -30 11-30 by mouth ity o f 13:31: 00:00 daily. [place] 56 :00 Medical Branch sevelamer 2021-11- No 800mg Take 800 Un samantha 800 mg 1-30 11-30 mg by ity of tablet 13:31: 00:00 mouth. [place] 56 :00 Medical Branch phenytoin 2021-11- No 300mg Take 300 Un samantha ER 300 mg 1-30 11-30 mg by ity of ER capsule 13:31: 00:00 mouth. [place] s 56 :00 Medical Branch amLODIPine 2021-11- No 10mg Take 10 mg Univers 10 mg 1-30 11-30 by mouth ity of tablet 13:31: 00:00 in the [place] 56 :00 morning. Medical Branch lisinopriL 2021-11- No 10mg Take 10 mg Univers 10 mg 1-30 11-30 by mouth ity of tablet 13:31: 00:00 in the [place] 56 :00 morning. Medical Branch ferrous 2021-11 Yes 325mg Take 325 Unive rs sulfate 325 1-30 mg by ity of mg (65 mg 13:31: mouth 2 [facility] [place] [facility]) (two) Medical tablet times Branch daily. carvediloL 2021-11 Yes 6.25mg Take 6.25 Univers 6.25 mg 1-30 mg by ity of tablet 13:31: mouth 2 [place] [address] (two) Medical times Branch daily with meals. atorvastati 2021-11 Yes 20mg Take 20 mg Univers n 20 mg 1-30 by mouth ity of tablet 13:31: at [place] [address] bedtime. Medical Branch aspirin 81 2021-11 Yes 1{tbl} Take 1 Uni vers mg chewable 1-30 tablet by ity of tablet 13:31: mouth in [place] [address] the Medical morning. Branch olmesartan 2021-11 Yes 40mg Take 40 mg U nivers 40 mg 1-30 by mouth. ity of tablet 13:31: [place] [address] Medical Branch HYDROcodone 2021-11- No 1{tbl} 1 tablet, Univers -acetaminop 1-30 11-30 Oral, ity of hen (NORCO 02:00: 03:21 ONCE, 1 [place] 5) 5-325 mg 00 :00 dose, On Medi denae tablet 1 e Branch tablet 10/23/22 at 2000, Routine doxazosin 4 2021-11 Yes 4mg Take 1 Univ ers mg tablet 1-30 tablet by ity o f 00:00: mouth in [place] 00 the Medical morning Branch and 1 tablet in the evening. phenytoin 2021-11 Yes 300mg Take 1 Unive rs Extended 1-30 capsule by ity o f 300 mg ER 00:00: mouth at [facility] s capsule 00 bedtime. Medical Branch sevelamer 2021-11 Yes [id number] 1600mg Take 2 Univers 800 mg 1-30 tablets by ity of tablet 00:00: mouth in [place] [address] the Medical morning Branch and 2 tablets at noon and 2 tablets in the evening. Take with meals. doxazosin 4 2021-11 Yes 4mg Take 1 Univ ers mg tablet 1-30 tablet by ity o f 00:00: mouth in [place] [address] the [facility] morning Branch and 1 tablet in the evening. phenytoin 2021-11 Yes 300mg Take 1 Unive rs Extended 1-30 capsule by ity o f 300 mg ER 00:00: [place] capsule 00 bedtime. [facility] Branch sevelamer 2021-11 Yes [id number] 1600mg Take 2 Univers 800 mg 1-30 tablets by ity of tablet 00:00: mouth in [place] [address] the [facility] morning Branch and 2 tablets at noon and 2 tablets in the evening. Take with meals. doxazosin 4 2021-11 Yes 4mg Take 1 Univ ers mg tablet 1-30 tablet by ity o f 00:00: mouth in [place] [address] the [facility] morning [place] and 1 tablet in the evening. phenytoin 2021-11 Yes 300mg Take 1 Unive rs Extended 1-30 capsule by ity o f 300 mg ER 00:00: mouth [place] capsule 00 bedtime. [facility] Branch sevelamer 2021-11 Yes [id number] 1600mg Take 2 Univers 800 mg 1-30 tablets by ity of tablet 00:00: mouth in [place] [address] the [facility] morning [place] and 2 tablets at noon and 2 tablets in the evening. Take with meals. doxazosin 4 2021-11 Yes 4mg Take 1 Univ ers mg tablet 1-30 tablet by ity o f 00:00: mouth in [place] [address] the [facility] morning [place] and 1 tablet in the evening. phenytoin 2021-11 Yes 300mg Take 1 Unive rs Extended 1-30 capsule by ity o f 300 mg ER 00:00: mouth [place] capsule 00 bedtime. [facility] Branch sevelamer 2021-11 Yes [id number] 1600mg Take 2 Univers 800 mg 1-30 tablets by ity of tablet 00:00: mouth in [place] [address] the [facility] morning [place] and 2 tablets at noon and 2 tablets in the evening. Take with meals. doxazosin 4 2021-11 Yes 4mg Take 1 Univ ers mg tablet 1-30 tablet by ity o f 00:00: mouth in [place] [address] the Medical morning Branch and 1 tablet in the evening. phenytoin 2021-11 Yes 300mg Take 1 Unive rs Extended 1-30 capsule by ity o f 300 mg ER 00:00: mouth [place] capsule 00 bedtime. [facility] Branch sevelamer 2021-11 Yes [id number] 1600mg Take 2 Univers 800 mg 1-30 tablets by ity of tablet 00:00: mouth in [place] 00 the Medical morning Branch and 2 tablets at noon and 2 tablets in the evening. Take with meals. doxazosin 4 2021-11 Yes 4mg Take 1 Univ ers mg tablet 1-30 tablet by ity o f 00:00: mouth in [place] 00 the Medical morning Branch and 1 tablet in the evening. phenytoin 2021-11 Yes 300mg Take 1 Unive rs Extended 1-30 capsule by ity o f 300 mg ER 00:00: mouth [place] capsule 00 bedtime. [facility] Branch sevelamer 2021-11 Yes [id number] 1600mg Take 2 Univers 800 mg 1-30 tablets by ity of tablet 00:00: mouth in [place] the Medical morning Branch and 2 tablets at noon and 2 tablets in the evening. Take with meals. doxazosin 4 2021-11 Yes 4mg Take 1 Univ ers mg tablet 1-30 tablet by ity o f 00:00: mouth in [place] the Medical morning Branch and 1 tablet in the evening. sevelamer 2021-11 Yes [id number] 1600mg Take 2 Univers 800 mg 1-30 tablets by ity of tablet 00:00: mouth in [place] the Medical morning Branch and 2 tablets at noon and 2 tablets in the evening. Take with meals. doxazosin 4 2021-11 Yes 4mg Take 1 Univ ers mg tablet 1-30 tablet by ity o f 00:00: mouth in [place] [address] the Medical morning Branch and 1 tablet in the evening. sevelamer 2021-11 Yes [id number] 1600mg Take 2 Univers 800 mg 1-30 tablets by ity of tablet 00:00: mouth in [place] [address] the Medical morning Branch and 2 tablets at noon and 2 tablets in the evening. Take with meals. doxazosin 4 2021-11 Yes 4mg Take 1 Univ ers mg tablet 1-30 tablet by ity o f 00:00: mouth in [place] [address] the Medical morning Branch and 1 tablet in the evening. sevelamer 2021-11 Yes [id number] 1600mg Take 2 Univers 800 mg 1-30 tablets by ity of tablet 00:00: mouth in [place] 00 the [facility] morning [place] and 2 tablets at noon and 2 tablets in the evening. Take with meals. doxazosin 4 2021-11 Yes 4mg Take 1 Univ ers mg tablet 1-30 tablet by ity o f 00:00: mouth in [place] 00 the [facility] morning [place] and 1 tablet in the evening. sevelamer 2021-11 Yes [id number] 1600mg Take 2 Univers 800 mg 1-30 tablets by ity of tablet 00:00: mouth in [place] 00 the Medical morning Branch and 2 tablets at noon and 2 tablets in the evening. Take with meals. phenytoin 2021-11- No 300mg Take 1 Univ ers Extended 1-30 - capsule by ity of 300 mg ER 00:00: 00:00 mouth at [place] capsule 00 :[address] [facility] sevelamer 2021-11- No [id number] 1600mg Take 2 Univers 800 mg 1-30 11-30 tablets by ity of tablet 00:00: 00:00 mouth in [place] 00 :00 the [facility] morning [place] and 2 tablets at noon and 2 tablets in the evening. Take with meals. sevelamer 2021-11- No [id number] 1600mg Take 2 Univers 800 mg 1-30 11-30 tablets by ity of tablet 00:00: 00:00 mouth in [place] 00 :00 the [facility] morning [place] and 2 tablets at noon and 2 tablets in the evening. Take with meals. FENTanyl PF 2021-11- No Slow IV Un samantha (SUBLIMAZE 12-23 Push, PRN, it y of (PF)) 17:08: 17:24 Starting [place] injection 00 :45 on [facility] 10/23/22 Branch at 1108, Until [facility] 10/23/22 at 1124, Routine phenytoin 2021-11- No 605mg 605 mg, IV Univers (DILANTIN) 12-22 Piggyback, it y of 605 mg in 20:00: 23:27 ONCE, 1 [place] NaCl 0.9% 00 :00 dose, On Medica l (NS) (5 Mon Branch mg/mL) 10/22/22 piggyback at 1400, 121 mL polyethylen 2021-11 Yes 17g 17 g, Unive rs e glycol 12-22 Oral, BID, ity o f 3350 powder 14:00: First dose [place] 17 g 00 (after Medical last Branch modificati on) on Sat10/22/22 at 0800, Until Discontinu ed, Routine sennosides- 2021-11 Yes 1{tbl} 1 tablet, Univers docusate 12-22 Oral, BID, ity o f sodium 14:00: First dose [place] (SENOKOT-S) 00 (after Medica l 8.6-50 mg last Branch per tablet modificati 1 tablet on) on Sat10/22/22 at 0800, Until Discontinu ed, Routine NaCl 0.9% 2021-11 No 5mL 5 mL, Slow U nivers (NS) 12-22 IV Push, ity of injection 5 14:00: 14:00 ONCE, 1 [place] mL 00 :00 dose, On [facility] 10/22/22 at 0800, Routine sodium 2021-11- No 25g 25,000 mg Unive rs thiosulfate 12-22 (25 g), ity of solution 14:00: 16:52 Intravenou [place] 25,000 mg 00 :00 s, ONCE, 1 Medi denae dose, On Branch [facility] 10/22/22 at 0800, Routine heparin 2021-11 Yes 2000U PRN - SEE Univ ers 1,000 12-22 INSTRUCTIO ity of unit/mL 13:57: NS, [place] injection 45 Starting Medica l 2,000 Units on [facility] 10/22/22 at 0757, Until Discontinu ed, Routine
For Priming of Ports:&nbs p; &n bsp; After initial saline flush, prime each port with heparin according to the priming volume listed on each catheter port for catheter lock.
hydrALAZINE 2021-11 Yes 50mg 50 mg, Univ ers (APRESOLINE 1-27 Oral, QHS, it y of ) tablet 50 03:00: First dose [place] mg [address] [facility] 10/20/22 Branch at 2100, Until Discontinu ed, Routine cinacalcet 2021-11- No 30mg 30 mg, [facility] ers (SENSIPAR) 12-20 Oral, ity of tablet 30 21:00: 17:46 DAILY, [place] mg 00 :52 First dose Medical on Sat Branch 10/20/22 at 1500, Until Discontinu ed, Routine hydrALAZINE 2021-11 Yes 50mg 50 mg, Univ ers (APRESOLINE 12-20 Oral, ity of ) tablet 50 18:00: Q24H, [place] mg 00 First dose Medical on Sat Branch 10/20/22 at 1200, Until Discontinu ed, Routine insulin 2021-11- No 2U 2 Units, [facility] rs lispro 12-20 Subcutaneo ity of (human) 18:00: 04:18 us, TID [place] (HumaLOG 00 :13 MEALS, Medical U-100) First dose Branch injection 2 on Sat Units 10/20/22 at 1200, Until Discontinu ed, Routine sevelamer 2021-11 Yes 1600mg 1,600 mg, U nivers (RENVELA) 12-20 Oral, TID ity o f tablet 17:15: MEALS, [place] 1,600 mg 00 First dose Medic al (after Branch last modificati on) on 10/20/22 at 1115, Until Discontinu ed, Routine hydrALAZINE 2021-11 Yes 100mg 100 mg, Un samantha (APRESOLINE 12-20 Oral, QAM, it y of ) tablet 15:00: First dose [place] 100 mg 00 (after Medical last Branch modificati on) on 10/20/22 at 0900, Until Discontinu ed, Routine aspirin 2021-11 Yes 81mg 81 mg, Univers chewable 12-20 Oral, ity of tablet 81 15:00: DAILY, [place] mg 00 First dose Medical on Sat Branch 10/20/22 at 0900, Until Discontinu ed, Routine polyethylen 2021-11- No 17g 17 g, [facility] ers e glycol 12-20 Oral, ity of 3350 powder 15:00: 12:52 DAILY, [place] 17 g 00 :41 First dose Medical on Sat Branch 10/20/22 at 0900, Until Discontinu ed, Routine sennosides- 2021-11- No 1{tbl} 1 tablet, Univers docusate 12-20 Oral, ity of sodium 15:00: 12:52 DAILY, [place] (SENOKOT-S) 00 :41 First dose Me dical 8.6-50 mg on Sat Branch per tablet 10/20/22 1 tablet at 0900, Until Discontinu ed, Routine doxazosin 2021-11 Yes 4mg 4 mg, Univers (CARDURA) 12-20 Oral, BID, ity of tablet 4 mg 14:00: First dose [place] 00 on Sat Medical 10/20/22 Branch at 0800, Until Discontinu ed, Routine NIFEdipine 2021-11 Yes 90mg 90 mg, Unive rs ER tablet 12-20 Oral, ity of 90 mg 12:33: QHSPRN, [place] [id number] Starting Medical on Sat Branch 10/20/22 at 0633, Until Discontinu ed, Routine, QHSPRN for SBP > 140 furosemide 2021-11- No 40mg 40 mg, Univ ers (LASIX) 12-20 Slow IV ity of injection 08:45: 08:37 Push, [place] 40 mg 00 :00 ONCE, 1 Medical dose, On Branch 10/20/22 at 0245, Routine phenytoin 2021-11 Yes 300mg 300 mg, Univ ers Extended 12-20 Oral, QHS, ity o f (DILANTIN 03:00: First dose [place] KAPSEAL) 00 on Fri Medical capsule 300 10/19/22 Bran ch mg at 2100, Until Discontinu ed, Routine atorvastati 2021-11 Yes 20mg 20 mg, Univ ers n (LIPITOR) 12-20 Oral, QHS, it y of tablet 20 03:00: First dose [place] mg 00 on Fri Medical 10/19/22 Branch at 2100, Until Discontinu ed, Routine thiamine 2021-11- No 500mg 500 mg, Univ ers (VITAMIN 12-20 Intramuscu ity of B1) 02:30: 03:51 lar, ONCE, [place] injection 00 :00 1 dose, On Medi denae 500 mg Fri Branch 10/19/22 at 2030, Routine Sliding 2021-11 Yes Subcutaneo Univ ers Scale 12-20 us, Q4H, ity of Insulin - 02:00: First dose [place] Lispro 00 on Fri Medical (HumaLOG) + 10/19/22 Bran [facility] at 2000, Testing Until Discontinu ed, Routine heparin 2021-11 Yes 5000U 5,000 Univers (porcine) - Units, ity of injection 02:00: Subcutaneo [place] 5,000 Units 00 us, Q12H, Med ical First dose Branch on 10/19/22 at 2000, Until Discontinu ed, Routine ferrous 2021-11 Yes 325mg 325 mg, Univer s sulfate 12-20 Oral, BID, ity of tablet 325 02:00: First dose [place] mg 00 on Fri Medical 10/19/22 Branch at 2000, Until Discontinu ed, Routine dextrose 50 2021-11 Yes 25mL 25 mL, Univ ers % in water 12-20 Slow IV ity of (D50W) 00:10: Push, PRN, [place] injection 57 Starting Medica l 25 mL on Fri Branch 10/19/22 at 1810, Until Discontinu ed, MARIKA, Blood Glucose < or = 70 mg/dL and patient is unable to swallow or has mental status changes. NaCl 0.9% 2021-11 No 5mL 5 mL, Slow U nivers (NS) 12-19 IV Push, ity of injection 5 23:45: 01:01 ONCE, 1 [place] mL 00 :00 dose, On Medical Fri Branch 10/19/22 at 1745, Routine mupirocin 2021-11 Yes Nasal, Univer s (BACTROBAN 25 Q12H, For ity of NASAL OINT) 23:42: 5 days, [place] 2 % nasal 40 First dose Medi denae ointment conditiona Branc h l, Routine carvediloL 2021-11 Yes 6.25mg 6.25 mg, U nivers (COREG) 12-19 Oral, BID ity of tablet 6.25 23:00: MEALS, [place] mg 00 First dose Medical on Fri Branch 10/19/22 at 1700, Until Discontinu ed, Routine sevelamer 2021-11- No 800mg 800 mg, Uni vers (RENVELA) 12-19 Oral, TID ity of tablet 800 23:00: 17:07 MEALS, [place] mg 00 :33 First dose Medical on Fri Branch 10/19/22 at 1700, Until Discontinu ed, Routine dextrose 2021-11 Yes 250mL 250 mL, IV Un samantha 10% (D10W) 1-25 Infusion, ity of bolus 22:23: PRN - SEE [place] infusion 31 INSTRUCTIO Medic al 250 mL NS, Branch Administer over 60 Minutes, Other, If blood glucose is < or = 70 mg/dL and patient is unable to swallow or has mental status changes, Starting on Sat10/19/22 at 1623
If blood glucose is < or = 70 mg/dL and patient is unable to swallow or has mental status changes (Give glucagon order if patient needs fluid restrictio n): IF IV access available: Dextrose 10%. 1. 125 mL (? bag) of D10W IV infusion - equivalent to 12.5 g dextrose 2. Blood glucose - draw blood glucose 15 minutes after D10W Administra tion. 3. If blood glucose is < 80 mg/dL, repeat.
acetaminoph 2021-11 Yes 650mg 650 mg, Un samantha en 1-25 Oral, ity of (TYLENOL) 22:22: Q6HPRN, [place] tablet 650 40 Starting Medic al mg on Sat Branch 10/19/22 at 1622, Until Discontinu ed, Routine, Pain (scale 1-3) ondansetron 2021-11 Yes 4mg 4 mg, Unive rs (ZOFRAN-ODT 12-19 Oral, ity of ) 22:12: Q8HPRN, [place] disintegrat 36 Starting Medi denae ing tablet on Sat Branch 4 mg 10/19/22 at 1612, Until Discontinu ed, Routine, Nausea and Vomiting (N/V) hydrALAZINE 2021-11- No 50mg 50 mg, Uni vers (APRESOLINE -10-20 Oral, ity of ) tablet 50 22:12: 12:43 Q8HPRN, [place] mg 01 :38 Starting Medical on Fri Branch 10/19/22 at 1612, Until 10/20/22 at 0643, Routine, Q8HPRN for SBP > 150 acetaminoph 2021-11 Yes 1{tbl} Take 1 Un samantha en-codeine 1-22 tablet by ity of 300-30 mg 00:00: mouth. [place] tablet 00 [facility] Branch acetaminoph 2021-11 Yes 1{tbl} Take 1 Un samantha en-codeine 1-22 tablet by ity of 300-30 mg 00:00: mouth. [place] tablet [address] [facility] acetaminoph 2021-11 Yes 1{tbl} Take 1 Un samantha en-codeine 1-22 tablet by ity of 300-30 mg 00:00: mouth. [place] tablet [address] [facility] acetaminoph 2021-11 Yes 1{tbl} Take 1 Un samantha en-codeine 1-22 tablet by ity of 300-30 mg 00:00: mouth. [place] tablet [facility] acetaminoph 2021-11 Yes 1{tbl} Take 1 Un [place] en-codeine 1-22 tablet by ity of 300-30 mg 00:00: mouth. [place] tablet [facility] acetaminoph 2021-11 Yes 1{tbl} Take 1 Un samantha en-codeine 1-22 tablet by ity of 300-30 mg 00:00: mouth. [place] tablet [address] [facility] acetaminoph 2021-11- No 1{tbl} Take 1 U nivers en-codeine 1-22 07-02 tablet by ity of 300-30 mg 00:00: 00:00 mouth. [place] tablet 00 :00 Medical Branch Alcohol 2021-11 Yes Use to Univers Swabs PadM 0-06 test blood ity of 00:00: glucose 3 times a Medical day Branch Alcohol 2021-11 Yes Use to Univers Swabs PadM 0-06 test blood ity of 00:00: glucose 3 times a Medical day Branch Alcohol 2021-11 Yes Use to Univers Swabs PadM 0-06 test blood ity of 00:00: glucose 3 times a Medical day Branch Alcohol 2021-11 Yes Use to Univers Swabs PadM 0-06 test blood ity of 00:00: glucose 3 times a Medical day Branch Alcohol 2021-11 Yes Use to Univers Swabs PadM 0-06 test blood ity of 00:00: glucose 3 00 times a Medical day Branch Alcohol 2021-11 Yes Use to [facility] Swabs PadM 0-06 test blood ity of 00:00: glucose 3 [place] 00 times a Medical day Branch Alcohol 2021-11- No Use to [facility] Swabs PadM 0-06 - test blood it y of 00:00: 00:00 glucose 3 [place] 00 :00 times a Medical day Branch hydrALAZINE Yes TAKE 1 [facility] ers 50 mg 9-27 TABLET (50 ity of tablet 00:00: MG TOTAL) 00 BY MOUTH Medical EVERY 8 Branch (EIGHT) HOURS IF NEEDED (FOR SBP GREATER THAN 150) hydrALAZINE Yes TAKE 1 Univ ers 50 mg 9-27 TABLET (50 ity of tablet 00:00: MG TOTAL) 00 BY MOUTH Medical EVERY 8 Branch (EIGHT) HOURS IF NEEDED (FOR SBP GREATER THAN 150) hydrALAZINE Yes TAKE 1 Univ ers 50 mg 9-27 TABLET (50 ity of tablet 00:00: MG TOTAL) 00 BY MOUTH Medical EVERY 8 Branch (EIGHT) HOURS IF NEEDED (FOR SBP GREATER THAN 150) hydrALAZINE Yes TAKE 1 Univ ers 50 mg 9-27 TABLET (50 ity of tablet 00:00: MG TOTAL) 00 BY MOUTH Medical EVERY 8 Branch (EIGHT) HOURS IF NEEDED (FOR SBP GREATER THAN 150) hydrALAZINE Yes TAKE 1 Univ ers 50 mg 9-27 TABLET (50 ity of tablet 00:00: MG TOTAL) 00 BY MOUTH Medical EVERY 8 Branch (EIGHT) HOURS IF NEEDED (FOR SBP GREATER THAN 150) hydrALAZINE Yes TAKE 1 [facility] ers 50 mg 9-27 TABLET (50 ity of tablet 00:00: MG TOTAL) 00 BY MOUTH Medical EVERY 8 Branch (EIGHT) HOURS IF NEEDED (FOR SBP GREATER THAN 150) hydrALAZINE 2022- No TAKE 1 Uni vers 50 mg 9-27 - TABLET (50 ity of tablet 00:00: 00:00 MG TOTAL) [place] 00 :00 BY MOUTH Medical EVERY 8 Branch (EIGHT) HOURS IF NEEDED (FOR SBP GREATER THAN 150) glimepiride Yes 4mg Take 4 mg U nivers 4 mg tablet 08-01 by mouth ity of 00:00: daily with 00 breakfast. Medical Branch insulin Yes 150-200: 4 Univ ers aspart 9-07 units; ity of U-100 00:00: 201-250: 8 [place] (NOVOLOG 00 units: Medical FLEXPEN 251-300: Branch U-100 12 units. INSULIN) 301-400: 100 unit/mL 14: units: (3 mL) before injection meals glimepiride Yes 4mg Take 4 mg U nivers 4 mg tablet 08-01 by mouth ity of 00:00: daily with 00 breakfast. Medical Branch insulin 2021-0 Yes 150-200: 4 Univ ers aspart 9-07 units; ity of U-100 00:00: 201-250: 8 [place] (NOVOLOG 00 units: Medical FLEXPEN 251-300: Branch U-100 12 units. INSULIN) 301-400: 100 unit/mL 14: units: (3 mL) before injection meals glimepiride Yes 4mg Take 4 mg U nivers 4 mg tablet 08-01 by mouth ity of 00:00: daily with 00 breakfast. Medical Branch insulin 2021-0 Yes 150-200: 4 Univ ers aspart 9-07 units; ity of U-100 00:00: 201-250: 8 [place] (NOVOLOG 00 units: Medical FLEXPEN 251-300: Branch U-100 12 units. INSULIN) 301-400: 100 unit/mL 14: units: (3 mL) before injection meals glimepiride Yes 4mg Take 4 mg U nivers 4 mg tablet 08-01 by mouth ity of 00:00: daily with 00 breakfast. Medical Branch insulin 2021-0 Yes 150-200: 4 Univ ers aspart 9-07 units; ity of U-100 00:00: 201-250: 8 [place] (NOVOLOG 00 units: Medical FLEXPEN 251-300: Branch U-100 12 units. INSULIN) 301-400: 100 unit/mL 14: units: (3 mL) before injection meals glimepiride 0 Yes 4mg Take 4 mg U nivers 4 mg tablet 08-01 by mouth ity of 00:00: daily with [place] 00 breakfast. Medical Branch insulin 2021-0 Yes 150-200: 4 Univ ers aspart 9-07 units; ity of U-100 00:00: 201-250: 8 [place] (NOVOLOG 00 units: Medical FLEXPEN 251-300: Branch U-100 12 units. INSULIN) 301-400: 100 unit/mL 14: units: (3 mL) before injection meals glimepiride 0 Yes 4mg Take 4 mg U nivers 4 mg tablet 08-01 by mouth ity of 00:00: daily with 00 breakfast. Medical Branch insulin 2021-0 Yes 150-200: 4 Univ ers aspart 9-07 units; ity of U-100 00:00: 201-250: 8 [place] (NOVOLOG 00 units: Medical FLEXPEN 251-300: Branch U-100 12 units. INSULIN) 301-400: 100 unit/mL 14: units: (3 mL) before injection meals glimepiride 0 Yes 4mg Take 4 mg U nivers 4 mg tablet 08-01 by mouth ity of 00:00: daily with 00 breakfast. Medical Branch insulin 2021-0 Yes 150-200: 4 Univ ers aspart 9-07 units; ity of U-100 00:00: 201-250: 8 [place] (NOVOLOG 00 units: Medical FLEXPEN 251-300: Branch U-100 12 units. INSULIN) 301-400: 100 unit/mL 14: units: (3 mL) before injection meals glimepiride 0 Yes 4mg Take 4 mg U nivers 4 mg tablet 08-01 by mouth ity of 00:00: daily with 00 breakfast. Medical Branch insulin 2021-0 Yes 150-200: 4 Univ ers aspart 9-07 units; ity of U-100 00:00: 201-250: 8 [place] (NOVOLOG 00 units: Medical FLEXPEN 251-300: Branch U-100 12 units. INSULIN) 301-400: 100 unit/mL 14: units: (3 mL) before injection meals glimepiride 0 Yes 4mg Take 4 mg U nivers 4 mg tablet 08-01 by mouth ity of 00:00: daily with 00 breakfast. Medical Branch insulin 2021-0 Yes 150-200: 4 Univ ers aspart 9-07 units; ity of U-100 00:00: 201-250: 8 [place] (NOVOLOG 00 units: Medical FLEXPEN 251-300: Branch U-100 12 units. INSULIN) 301-400: 100 unit/mL 14: units: (3 mL) before injection meals glimepiride 2021-0 Yes 4mg Take 4 mg U nivers 4 mg tablet 08-01 by mouth ity of 00:00: daily with [place] 00 breakfast. Medical Branch insulin 2021-0 Yes 150-200: 4 Univ ers aspart 9-07 units; ity of U-100 00:00: 201-250: 8 [place] (NOVOLOG 00 units: Medical FLEXPEN 251-300: Branch U-100 12 units. INSULIN) 301-400: 100 unit/mL 14: units: (3 mL) before injection meals NIFEdipine 2-0 Yes TAKE 1 Unive rs ER 90 mg 8-28 TABLET BY ity of tablet 00:00: MOUTH AT [place] [address] BEDTIME IF Medical SYSTOLIC Branch BLOOD PRESSURE IS GREATER THAN 140 NIFEdipine 2022-0 Yes TAKE 1 Unive rs ER 90 mg 8-28 TABLET BY ity of tablet 00:00: MOUTH AT [place] [address] BEDTIME IF Medical SYSTOLIC Branch BLOOD PRESSURE IS GREATER THAN 140 NIFEdipine 2022-0 Yes TAKE 1 Unive rs ER 90 mg 8-28 TABLET BY ity of tablet 00:00: MOUTH AT [place] [address] BEDTIME IF Medical SYSTOLIC Branch BLOOD PRESSURE IS GREATER THAN 140 NIFEdipine 2022-0 Yes TAKE 1 Unive rs ER 90 mg 8-28 TABLET BY ity of tablet 00:00: MOUTH AT [place] [address] BEDTIME IF Medical SYSTOLIC Branch BLOOD PRESSURE IS GREATER THAN 140 NIFEdipine 2022-0 Yes TAKE 1 Unive rs ER 90 mg 8-28 TABLET BY ity of tablet 00:00: MOUTH AT [place] [address] BEDTIME IF Medical SYSTOLIC Branch BLOOD PRESSURE IS GREATER THAN 140 NIFEdipine 2022-0 Yes TAKE 1 Unive rs ER 90 mg 8-28 TABLET BY ity of tablet 00:00: MOUTH AT [place] [address] BEDTIME IF Medical SYSTOLIC Branch BLOOD PRESSURE IS GREATER THAN 140 NIFEdipine 2022-0 2023- No TAKE 1 Univ ers ER 90 mg 8-28 - TABLET BY ity o f tablet 00:00: 00:00 MOUTH AT [place] 00 :00 BEDTIME IF Medical SYSTOLIC Branch BLOOD PRESSURE IS GREATER THAN 140 ondansetron 2-0 Yes 4mg Take 4 mg U nivers 4 mg -08 by mouth. ity of disintegrat 00:00: [place] ing tablet 00 Medical Branch ondansetron 2-0 Yes 4mg Take 4 mg U nivers 4 mg 8-08 by mouth. ity of disintegrat 00:00: [place] ing tablet 00 Medical Branch ondansetron 2021-0 Yes 4mg Take 4 mg U nivers 4 mg 8-08 by mouth. ity of disintegrat 00:00: [place] ing tablet 00 Medical Branch ondansetron 2021-0 Yes 4mg Take 4 mg U nivers 4 mg 8-08 by mouth. ity of disintegrat 00:00: [place] ing tablet 00 Medical Branch ondansetron 2021-0 Yes 4mg Take 4 mg U nivers 4 mg 8-08 by mouth. ity of disintegrat 00:00: [place] ing tablet 00 Medical Branch ondansetron 2021-0 Yes 4mg Take 4 mg U nivers 4 mg 8-08 by mouth. ity of disintegrat 00:00: [place] ing tablet 00 Medical Branch ondansetron 2021-0 3- No 4mg Take 4 mg [facility] 4 mg 8-08 07-02 by mouth. ity of disintegrat 00:00: 00:00 [place] ing tablet 00 :00 Medical Branch lidocaine-p 2022-0 Yes Univer s rilocaine 5-20 ity of cream 00:00: 00 Medical Branch lidocaine-p 2022-0 Yes Univer s rilocaine 5-20 ity of cream 00:00: 00 Medical Branch lidocaine-p 2022-0 Yes Univer s rilocaine 5-20 ity of cream 00:00: 00 Medical Branch lidocaine-p 2022-0 Yes Univer s rilocaine 5-20 ity of cream 00:00: 00 Medical Branch lidocaine-p 2022-0 Yes Univer s rilocaine 5-20 ity of cream 00:00: 00 Medical Branch lidocaine-p 2022-0 Yes Univer s rilocaine 5-20 ity of cream 00:00: [place] 00 Medical Branch lidocaine-p 2022-0 2023- No Unive rs rilocaine 5-20 - ity of cream 00:00: 00:00 [place] 00 :00 Medical Branch phenytoin 2021-0 Yes 300mg 300 mg, Univ ers Extended 5-18 Oral, QHS, ity o f (DILANTIN 02:00: First dose [place] KAPSEAL) 00 on Tue Medical capsule 300 04/10/22 at Br anch mg 2100, Until Discontinu ed, Routine ferrous 2021-0 Yes 325mg Take 325 Unive rs sulfate 325 5-17 mg by ity of mg (65 mg 20:18: mouth 2 [place] iron) 08 (two) Medical tablet times Branch daily. spironolact 2021-0 Yes 50mg Take 50 mg [facility] one 50 mg 5-17 by mouth 2 ity of tablet 20:18: (two) [place] times Medical daily. Branch carvediloL 2021-0 Yes 6.25mg Take 6.25 [facility] 6.25 mg 5-17 mg by ity of tablet 20:18: mouth 2 08 (two) Medical times Branch daily with meals. atorvastati 2021-0 Yes 20mg Take 20 mg Univers n 20 mg 5-17 by mouth ity of tablet 20:18: at [place] 08 bedtime. Medical Branch doxazosin 2 2021-0 Yes 2mg Take 2 mg U nivers mg tablet 5-17 by mouth ity of 20:18: daily. Medical Branch ferrous 2021-0 Yes 325mg Take 325 Unive rs sulfate 325 5-17 mg by ity of mg (65 mg 20:18: mouth 2 [place] iron) 08 (two) Medical tablet times Branch daily. spironolact 2021-0 Yes 50mg Take 50 mg [facility] one 50 mg 5-17 by mouth 2 ity of tablet 20:18: (two) times Medical daily. Branch carvediloL 2021-0 Yes 6.25mg Take 6.25 Univers 6.25 mg 5-17 mg by ity of tablet 20:18: mouth 2 [place] 08 (two) Medical times Branch daily with meals. atorvastati 2021-0 Yes 20mg Take 20 mg Univers n 20 mg 5-17 by mouth ity of tablet 20:18: at [place] [address] bedtime. Medical Branch doxazosin 2 2021-0 Yes 2mg Take 2 mg U nivers mg tablet 5-17 by mouth ity of 20:18: daily. Medical Branch ferrous 2021-0 Yes 325mg Take 325 Unive rs sulfate 325 5-17 mg by ity of mg (65 mg 20:18: mouth 2 [place] iron) 08 (two) Medical tablet times Branch daily. spironolact 2-0 Yes 50mg Take 50 mg Univers one 50 mg 5-17 by mouth 2 ity of tablet 20:18: (two) [place] [address] times Medical daily. Branch carvediloL Yes 6.25mg Take 6.25 Univers 6.25 mg 5-17 mg by ity of tablet 20:18: mouth 2 [place] [address] (two) [facility] daily with meals. atorvastati Yes 20mg Take 20 mg Univers n 20 mg 5-17 by mouth ity of tablet 20:18: at [place] [address] bedtime. [facility] Branch doxazosin 2 Yes 2mg Take 2 mg U nivers mg tablet 5-17 by mouth ity of 20:18: daily. [place] [address] [facility] fosphenytoi 2021- No 15mg{ph 930 mg PE Univers n (CEREBYX) -17 -17 enytoin (15 mg it y of 930 mg PE 20:15: 22:39 'equiva PE/kg ?62 [place] in NaCl 00 :00 lent}/k kg), IV Medica l 0.9% (NS) g Piggyback, Bran ch piggyback ONCE, 1 dose, On Sat04/10/22 at 1515, Administer over 30 Minutes, 100 mL metoprolol 2021- No 50mg Take 50 mg Univers succinate 5-17 -17 by mouth ity o f XL 50 mg 24 14:26: 00:00 daily. [place] as hr tablet 33 :[address] [facility] NIFEdipine 2021- No 90mg Take 90 mg Univers ER 90 mg 5-17 -17 by mouth ity of tablet 14:26: 00:00 daily. [place] 33 :[address] [facility] atorvastati Yes 20mg 20 mg, Univ ers n (LIPITOR) 5-17 Oral, QHS, it y of tablet 20 02:00: First dose [place] mg 00 on [facility] 04/09/22 at Branch 2100, Until Discontinu ed, Routine sevelamer 2021- No [id number] 800mg Take 1 Univers 800 mg 5-17 -16 tablet by ity of tablet 00:00: 04:59 mouth 3 [place] 00 :00 (three) [facility] daily with meals for 90 days. phenytoin 2021- No [id number] 300mg Take 1 Univers Extended 5-17 08-16 capsule by ity of 300 mg ER 00:00: 04:59 mouth at [place] capsule 00 :00 bedtime Medical for 90 Branch days. lisinopriL 2021- No [id number] 20mg Take 1 [facility] 20 mg 5-17 08-16 tablet by ity of tablet 00:00: 04:59 mouth [place] 00 :00 daily for Medical 90 days. Branch amLODIPine 2021- No [id number] 10mg Take 1 Univers 10 mg 5-17 08-16 tablet by ity of tablet 00:00: 04:59 mouth [place] 00 :00 daily for Medical 90 days. Branch furosemide 2021-2021- No [id number] 20mg Take 1 [facility] 20 mg 5-17 08-16 tablet by ity of tablet 00:00: 04:59 mouth [place] 00 :00 daily for Medical 90 days. Branch glimepiride 2021- No [id number] 4mg Take 1 [facility] 4 mg tablet 5-17 08-16 tablet by it y of 00:00: 04:59 mouth [place] 00 :00 daily with Medical breakfast Branch for 90 days. amiodarone 2021- No [id number] 100mg Take 1 [facility] 100 mg 5-17 08-16 tablet by ity of tablet 00:00: 04:59 mouth [place] 00 :00 daily for Medical 90 days. Branch sevelamer 2021- No [id number] 800mg Take 1 [facility] 800 mg 5-17 08-16 tablet by ity of tablet 00:00: 04:59 mouth 3 [place] 00 :00 (three) Medical times [place] daily with meals for 90 days. phenytoin 2021-2021- No [id number] 300mg Take 1 [facility] Extended 5-17 08-16 capsule by ity of 300 mg ER 00:00: 04:59 mouth at [place] capsule 00 :00 bedtime Medical for 90 Branch days. lisinopriL 2021-2021- No [id number] 20mg Take 1 [facility] 20 mg 5-17 08-16 tablet by ity of tablet 00:00: 04:59 mouth [place] 00 :00 daily for Medical 90 days. Branch amLODIPine 2021- No [id number] 10mg Take 1 Univers 10 mg 5-17 08-16 tablet by ity of tablet 00:00: 04:59 mouth [place] 00 :00 daily for Medical 90 days. Branch furosemide 2021- No [id number] 20mg Take 1 Univers 20 mg 04-10-16 tablet by ity of tablet 00:00: 04:59 mouth [place] 00 :00 daily for Medical 90 days. Branch glimepiride 2021- No [id number] 4mg Take 1 Univers 4 mg tablet 04-10-16 tablet by it y of 00:00: 04:59 mouth [place] 00 :00 daily with Medical breakfast Branch for 90 days. amiodarone 2021- No [id number] 100mg Take 1 [facility] 100 mg 04-10-16 tablet by ity of tablet 00:00: 04:59 mouth [place] 00 :00 daily for Medical 90 days. Branch sevelamer Yes 800mg 800 mg, Univ ers (RENVELA) -16 Oral, TID ity o f tablet 800 22:00: MEALS, [place] mg 00 First dose Medical on [facility] 04/09/22 at 1700, Until Discontinu ed, Routine KCL No 40meq 40 mEq, Univers (KLOR-CON 04-09-16 Oral, ity of M20) tablet 20:30: 20:04 ONCE, 1 [place] 40 mEq 00 :00 dose, On Medical [facility] 04/09/22 at 1530, Routine NIFEdipine Yes 90mg 90 mg, Unive rs ER tablet 16 Oral, ity of 90 mg 14:00: DAILY, [place] 00 First dose Medical on [facility] 04/09/22 at 0900, Until Discontinu ed, Routine levETIRAcet 2021- No 500mg 500 mg, U nivers am (KEPPRA) 04-09-17 Oral, QAM, i ty of tablet 500 14:00: 15:02 First dose [place] mg 00 :12 on [facility] 04/09/22 at Branch 0900, Until Discontinu ed, Routine spironolact Yes 50mg 50 mg, Univ ers one -16 Oral, BID, ity of (ALDACTONE) 13:00: First dose [place] tablet 50 00 (after Medical mg last Branch reorder) on [facility] 04/09/22 at 0800, Until Discontinu ed, Routine carvediloL 2022-0 Yes 6.25mg 6.25 mg, U nivers (COREG) 516 Oral, BID ity of tablet 6.25 13:00: MEALS, [place] mg 00 First dose Medical on Sat Branch 04/09/22 at 0800, Until Discontinu ed, Routine heparin 0 Yes 5000U 5,000 Univers (porcine) 16 Units, ity of injection 13:00: Subcutaneo [place] 5,000 Units 00 us, Q12H, Med ical First dose Branch on Sat04/09/22 at 0800, Until Discontinu ed, Routine NaCl 0.9% 0 Yes 10mL 10 mL, Univer s (NS) 516 Slow IV ity of injection 05:18: Push, PRN, [place] 10 mL 52 Starting Medical on Sat Branch 04/09/22 at 0018, Until Discontinu ed, Routine, line maintenanc e lidocaine 0 Yes 5mL 5 mL, Univers 1% (PF) 04-09 Subcutaneo ity of (XYLOCAINE) 05:18: us, PRN, [place] injection 5 52 Starting Medi denae mL on Sat Branch 04/09/22 at 0018, Until Discontinu ed, Routine, Local anesthesia LORazepam 0 Yes 2mg 2 mg, Slow Un samantha (ATIVAN) 16 IV Push, ity of injection 2 05:05: PRN - SEE [place] mg 31 INSTRUCTIO Medical NS, Branch Starting on Sat04/09/22 at 0005, Until Discontinu ed, Routine, Seizures Sliding 0 Yes Subcutaneo Univ ers Scale 5-16 us, Q4H, ity of Insulin - 05:00: First dose [place] Lispro 00 on Sat Medical (HumaLOG) + 04/09/22 at Br anch Fsbg 0000, Testing Until Discontinu ed, Routine hydralAZINE 0 Yes 10mg 10 mg, Univ ers (APRESOLINE 16 Slow IV ity o f ) injection 04:46: Push, [place] 10 mg 34 Q4HPRN, Medical Starting Branch on Sat04/08/22 at 2346, Until Discontinu ed, Routine, DBP=>10 0; SBP=>180 glucagon 0 Yes 1mg 1 mg, Univers (GLUCAGEN 04-09 Intramuscu ity of DIAGNOSTIC 04:28: lar, PRN, [place] KIT) 00 Starting Medical injection 1 on [facility] mg 04/08/22 at 2328, Until Discontinu ed, MARIKA, Blood Glucose < or = 70 mg/dL and patient is unable to swallow or has mental changes. dextrose 50 Yes 25mL 25 mL, Univ ers % in water 04-09 Slow IV ity of (D50W) 04:28: Push, PRN, [place] injection 00 Starting Medica l 25 mL on [place] Branch 04/08/22 at 2328, Until Discontinu ed, MARIKA, Blood Glucose < or = 70 mg/dL and patient is unable to swallow or has mental status changes. amLODIPine 2021- No 10mg Take 10 mg Univers 10 mg 04-09 by mouth ity of tablet 00:32: 00:00 daily. [place] 49 :00 Medical Branch lisinopriL 2021- No 20mg Take 20 mg Univers 20 mg 04-09 by mouth ity of tablet 00:32: 00:00 daily. [place] 49 :00 Medical Branch amiodarone 2021- No Take by Uni vers 100 mg 04-09 mouth. ity of tablet 00:32: 00:00 [place] 49 :00 Medical Branch furosemide 2021- No Take by Uni vers (LASIX) 20 04-09- mouth. ity of mg tablet 00:32: 00:00 [place] 49 :00 Medical Branch glimepiride 2021- No 4mg Take 4 mg Univers 4 mg tablet 04-09 by mouth ity of 00:32: 00:00 daily with [place] 49 :00 breakfast. Medical Branch phenytoin 2021- No [id number] 100mg Take 1 [facility] Extended 03-28 capsule by ity of 100 mg 00:00: 00:00 mouth [place] capsule 00 :00 every 8 Medical (eight) Branch hours. Glucose 2018-11 Yes 1 ea, Memoria Control 2-03 MISC, l Solution 04:25: Daily, # 1 Her aleman 00 ea, 0 Refill(s), Pharmacy: [id number] Diabetes 2018- Yes 1 ea, Memoria Self-Mangem 2-03 MISC, l ent 04:25: Daily, # 1 [place] 00 ea, 0 Refill(s), Pharmacy: [facility] #[id number] Lancet 2018-11 Yes 1 box, Memoria Device 2-03 MISC, l 04:25: Daily, # 1 [place] 00 ea, 0 Refill(s), Pharmacy: [id number] Lancets 2018- Yes 1 box, Memoria 2-03 MISC, l 04:25: TID-Before [place] 00 Meals, # 1 box, 3 Refill(s), Pharmacy: [id number] Alcohol 2018- Yes 1 ea, TOP, [place] janell Pads/Swabs 2-03 TID-Before l Misc/Other 04:25: Meals, PRN [place] 00 As directed by physician, # 100 ea, 11 Refill(s), Pharmacy: [facility][id number] BD 1.4 qt 2018- Yes 1 ea, Memoria home sharps 2-03 MISC, l container 04:25: Q30D, Use Her aleman 00 for disposal of needles, # 1 ea, 11 Refill(s), Pharmacy: [facility][id number] Blood 2018- Yes 1 ea, Memoria Glucose 2-03 MISC, l Monitor 04:25: Daily, Use Herm trini 00 as directed., # 1 ea, 0 Refill(s), Pharmacy: [id number] Blood 2018- Yes 1 box, Memoria Glucose 2-03 MISC, l Test Strips 04:25: TID-Before [place] 00 Meals, # 100 strip, 0 Refill(s), Pharmacy: [id number] Glucose 2018- Yes 1 ea, Memoria Control 2-03 MISC, l Solution 04:25: Daily, # 1 [place] 00 ea, 0 Refill(s), Pharmacy: [id number] Glucose 2018- Yes 1 ea, Memoria Control 2-03 MISC, l Solution 04:25: Daily, # 1 [place] 00 ea, 0 Refill(s), Pharmacy: [id number] Diabetes 2018- Yes 1 ea, Memoria Self-Mangem 2-03 MISC, l ent 04:25: Daily, # 1 [place] 00 ea, 0 Refill(s), Pharmacy: [id number] Lancet 2018- Yes 1 box, Memoria Device 2-03 MISC, l 04:25: Daily, # 1 [place] 00 ea, 0 Refill(s), Pharmacy: [id number] Lancets 2018- Yes 1 box, Memoria 2-03 MISC, l 04:25: TID-Before [place] 00 Meals, # 1 box, 3 Refill(s), Pharmacy: [id number] Alcohol 2018- Yes 1 ea, TOP, [place] janell Pads/Swabs 2-03 TID-Before l Misc/Other 04:25: Meals, PRN [place] 00 As directed by physician, # 100 ea, 11 Refill(s), Pharmacy: [id number] BD 1.4 qt 2018- Yes 1 ea, Memoria home sharps 2-03 MISC, l container 04:25: Q30D, Use Her aleman 00 for disposal of needles, # 1 ea, 11 Refill(s), Pharmacy: [id number] Blood 2018- Yes 1 ea, Memoria Glucose 2-03 MISC, l Monitor 04:25: Daily, Use Herm trini 00 as directed., # 1 ea, 0 Refill(s), Pharmacy: [id number] Blood 2018- Yes 1 box, Memoria Glucose 2-03 MISC, l Test Strips 04:25: TID-Before [place] 00 Meals, # 100 strip, 0 Refill(s), Pharmacy: [id number] Diabetes 2019- Yes 1 ea, Memoria Self-Mangem 2-03 MISC, l ent 04:25: Daily, # 1 [place] 00 ea, 0 Refill(s), Pharmacy: [id number] Lancet 2018- Yes 1 box, Memoria Device 2-03 MISC, l 04:25: Daily, # 1 [place] 00 ea, 0 Refill(s), Pharmacy: [id number] Glucose 2018- Yes 1 ea, Memoria Control 2-03 MISC, l Solution 04:25: Daily, # 1 Her [place] 00 ea, 0 Refill(s), Pharmacy: [id number] Diabetes 2019- Yes 1 ea, Jose Self-Mangem 2-03 MISC, l ent 04:25: Daily, # 1 [place] 00 ea, 0 Refill(s), Pharmacy: [id number] Lancet 2018- Yes 1 box, Memoria Device 2-03 MISC, l 04:25: Daily, # 1 [place] 00 ea, 0 Refill(s), Pharmacy: [id number] Lancets 2018- Yes 1 box, Memoria 2-03 MISC, l 04:25: TID-Before [place] 00 Meals, # 1 box, 3 Refill(s), Pharmacy: [facility] #[id number] Alcohol 2018-11 Yes 1 ea, TOP, [place] janell Pads/Swabs 2-03 TID-Before l Misc/Other 04:25: Meals, PRN [place] 00 As directed by physician, # 100 ea, 11 Refill(s), Pharmacy: [id number] BD 1.4 qt 2018-11 Yes 1 ea, [place] home sharps 2-03 MISC, l container 04:25: Q30D, Use Her aleman 00 for disposal of needles, # 1 ea, 11 Refill(s), Pharmacy: [id number] Blood 2018- Yes 1 ea, Jose Glucose 2-03 MISC, l Monitor 04:25: Daily, Use Herm trini 00 as directed., # 1 ea, 0 Refill(s), Pharmacy: [id number] Blood 2018- Yes 1 box, [place] Glucose 2-03 MISC, l Test Strips 04:25: TID-Before [place] 00 Meals, # 100 strip, 0 Refill(s), Pharmacy: [facility][id number] Lancets 2018- Yes 1 box, Memoria 2-03 MISC, l 04:25: TID-Before [place] 00 Meals, # 1 box, 3 Refill(s), Pharmacy: [id number] Alcohol 2018-11 Yes 1 ea, TOP, [place] janell Pads/Swabs 2-03 TID-Before l Misc/Other 04:25: Meals, PRN [place] 00 As directed by physician, # 100 ea, 11 Refill(s), Pharmacy: [id number] Glucose 2019- Yes 1 ea, [place]ina[place] Control 2-03 MISC, l Solution 04:25: Daily, # 1 Her [place] 00 ea, 0 Refill(s), Pharmacy: [id number] Diabetes 2019- Yes 1 ea, Katerinaoria Self-Mangem 2-03 MISC, l ent 04:25: Daily, # 1 [place] 00 ea, 0 Refill(s), Pharmacy: [id number] Lancet 2019- Yes 1 box, Memoria Device 2-03 MISC, l 04:25: Daily, # 1 [place] 00 ea, 0 Refill(s), Pharmacy: [id number] Lancets 2019- Yes 1 box, Memoria 2-03 MISC, l 04:25: TID-Before [place] 00 Meals, # 1 box, 3 Refill(s), Pharmacy: [id number] Alcohol 2018- Yes 1 ea, TOP, [place] janell Pads/Swabs 2-03 TID-Before l Misc/Other 04:25: Meals, PRN [place] 00 As directed by physician, # 100 ea, 11 Refill(s), Pharmacy: [id number] BD 1.4 qt 2018- Yes 1 ea, Jose home sharps 2-03 MISC, l container 04:25: Q30D, Use Her aleman 00 for disposal of needles, # 1 ea, 11 Refill(s), Pharmacy: [id number] Blood 2019- Yes 1 ea, Memoria Glucose 2-03 MISC, l Monitor 04:25: Daily, Use Herm trini 00 as directed., # 1 ea, 0 Refill(s), Pharmacy: [id number] Blood 2019- Yes 1 box, Katerinaoria Glucose 2-03 MISC, l Test Strips 04:25: TID-Before [place] 00 Meals, # 100 strip, 0 Refill(s), Pharmacy: [id number] BD 1.4 qt 2018- Yes 1 ea, Katerinaoria home sharps 2-03 MISC, l container 04:25: Q30D, Use Her aleman 00 for disposal of needles, # 1 ea, 11 Refill(s), Pharmacy: [id number] Blood 2018- Yes 1 ea, Memoria Glucose 2-03 MISC, l Monitor 04:25: Daily, Use Herm trini 00 as directed., # 1 ea, 0 Refill(s), Pharmacy: [id number] Glucose 2018- Yes 1 ea, Memoria Control 2-03 MISC, l Solution 04:25: Daily, # 1 Her ale[place] 00 ea, 0 Refill(s), Pharmacy: [id number] Diabetes 2018-11 Yes 1 ea, Memoria Self-Mangem 2-03 MISC, l ent 04:25: Daily, # 1 [place] 00 ea, 0 Refill(s), Pharmacy: [id number] Lancet 2018- Yes 1 box, Memoria Device 2-03 MISC, l 04:25: Daily, # 1 [place] 00 ea, 0 Refill(s), Pharmacy: [facility] #[id number] Lancets 2018-11 Yes 1 box, Memoria 2-03 MISC, l 04:25: TID-Before González 00 Meals, # 1 box, 3 Refill(s), [facility]: [id number] Alcohol 2018- Yes 1 ea, TOP, Maxwell jnaell Pads/Swabs 2-03 TID-Before l Misc/Other 04:25: Meals, PRN H ermann 00 As directed by physician, # 100 ea, 11 Refill(s), Pharmacy: [id number] BD 1.4 qt 2018-11 Yes 1 ea, Memoria home sharps 2-03 MISC, l container 04:25: Q30D, Use Her aleman 00 for disposal of needles, # 1 ea, 11 Refill(s), [facility]: [id number] Blood 2018- Yes 1 ea, Memoria Glucose 2-03 MISC, l Monitor 04:25: Daily, Use Herm trini 00 as directed., # 1 ea, 0 Refill(s), [facility]: [id number] Blood 2018- Yes 1 box, Memoria Glucose 2-03 MISC, l Test Strips 04:25: TID-Before González 00 Meals, # 100 strip, 0 Refill(s), Pharmacy: [id number] Blood 2018-11 Yes 1 box, Memoria Glucose 2-03 MISC, l Test Strips 04:25: TID-Before [place] 00 Meals, # 100 strip, 0 Refill(s), [facility]: [id number] Glucose 2018-11 Yes 1 ea, Memoria Control 2-03 MISC, l Solution 04:25: Daily, # 1 Her aleman 00 ea, 0 Refill(s), [facility]: [id number] Diabetes 2018-11 Yes 1 ea, Memoria Self-Mangem 2-03 MISC, l ent 04:25: Daily, # 1 González Training 00 ea, 0 Refill(s), [facility]acy: [id number] Lancet 2018-11 Yes 1 box, Memoria Device 2-03 MISC, l 04:25: Daily, # 1 [place] 00 ea, 0 Refill(s), [facility]acy: [facility] #[id number] Lancets 2018-11 Yes 1 box, Memoria 2-03 MISC, l 04:25: TID-Before González 00 Meals, # 1 box, 3 Refill(s), [facility]acy: [id number] Alcohol 2018-11 Yes 1 ea, TOP, Maxwell janell Pads/Swabs 2-03 TID-Before l Misc/Other 04:25: Meals, PRN H ermann 00 As directed by physician, # 100 ea, 11 Refill(s), Pharmacy: [facility] #[id number] BD 1.4 qt 2018-11 Yes 1 ea, Katerinaoria home sharps 2-03 MISC, l container 04:25: Q30D, Use Her aleman 00 for disposal of needles, # 1 ea, 11 Refill(s), [facility]: [id number] Blood 2018-11 Yes 1 ea, Memoria Glucose 2-03 MISC, l Monitor 04:25: Daily, Use Herm trini 00 as directed., # 1 ea, 0 Refill(s), [facility]acy: [id number] Blood 2018-11 Yes 1 box, Memoria Glucose 2-03 MISC, l Test Strips 04:25: TID-Before [place] 00 Meals, # 100 strip, 0 Refill(s), [facility]: [id number] Glucose 2018-11 Yes 1 ea, Memoria Control 2-03 MISC, l Solution 04:25: Daily, # 1 Her aleman 00 ea, 0 Refill(s), [facility]: [id number] Diabetes 2018- Yes 1 ea, Memoria Self-Mangem 2-03 MISC, l ent 04:25: Daily, # 1 González Training 00 ea, 0 Refill(s), [facility]: [id number] Lancet 2019- Yes 1 box, Memoria Device 2-03 MISC, l 04:25: Daily, # 1 [place] 00 ea, 0 Refill(s), [facility]acy: [id number] Lancets 2018-11 Yes 1 box, Memoria 2-03 MISC, l 04:25: TID-Before González 00 Meals, # 1 box, 3 Refill(s), Pharmacy: [facility] #[id number] Alcohol 2018- Yes 1 ea, TOP, Maxwell janell Pads/Swabs 2-03 TID-Before l Misc/Other 04:25: Meals, PRN H ermann 00 As directed by physician, # 100 ea, 11 Refill(s), [facility]acy: [id number] BD 1.4 qt 2018-11 Yes 1 ea, Jose home sharps 2-03 MISC, l container 04:25: Q30D, Use Her aleman 00 for disposal of needles, # 1 ea, 11 Refill(s), [facility]: [id number] Blood 2018- Yes 1 ea, Memoria Glucose 2-03 MISC, l Monitor 04:25: Daily, Use Herm trini 00 as directed., # 1 ea, 0 Refill(s), [facility]: [id number] Blood 2019- Yes 1 box, Memoria Glucose 2-03 MISC, l Test Strips 04:25: TID-Before [place] 00 Meals, # 100 strip, 0 Refill(s), [facility]: [id number] Glucose 2019- Yes 1 ea, Memoria Control 2-03 MISC, l Solution 04:25: Daily, # 1 Her aleman 00 ea, 0 Refill(s), [facility]: [id number] Diabetes 2018- Yes 1 ea, Memoria Self-Mangem 2-03 MISC, l ent 04:25: Daily, # 1 [place] Training 00 ea, 0 Refill(s), [facility]: [id number] Lancet 2018- Yes 1 box, Memoria Device 2-03 MISC, l 04:25: Daily, # 1 González 00 ea, 0 Refill(s), [facility]: [facility] #[id number] Lancets 2018- Yes 1 box, Memoria 2-03 MISC, l 04:25: TID-Before [place] 00 Meals, # 1 box, 3 Refill(s), [facility]: [id number] Alcohol 2018- Yes 1 ea, TOP, Maxwell janell Pads/Swabs 2-03 TID-Before l Misc/Other 04:25: Meals, PRN H ermann 00 As directed by physician, # 100 ea, 11 Refill(s), Pharmacy: [facility] #[id number] BD 1.4 qt 2018- Yes 1 ea, Memoria home sharps 2-03 MISC, l container 04:25: Q30D, Use Her aleman 00 for disposal of needles, # 1 ea, 11 Refill(s), [facility]: [id number] Blood 2018- Yes 1 ea, Memoria Glucose 2-03 MISC, l Monitor 04:25: Daily, Use Herm trini 00 as directed., # 1 ea, 0 Refill(s), [facility]: [id number] Blood 2018- Yes 1 box, Memoria Glucose 2-03 MISC, l Test Strips 04:25: TID-Before [place] 00 Meals, # 100 strip, 0 Refill(s), [facility]: [id number] Glucose 2018- Yes 1 ea, Memoria Control 2-03 MISC, l Solution 04:25: Daily, # 1 Her aleman 00 ea, 0 Refill(s), [facility]: [id number] Diabetes 2018- Yes 1 ea, Memoria Self-Mangem 2-03 MISC, l ent 04:25: Daily, # 1 [place] Training 00 ea, 0 Refill(s), [facility]: [id number] Lancet 2018- Yes 1 box, Memoria Device 2-03 MISC, l 04:25: Daily, # 1 [place] 00 ea, 0 Refill(s), [facility]: [id number] Lancets 2018-1 Yes 1 box, Memoria 2-03 MISC, l 04:25: TID-Before [place] 00 Meals, # 1 box, 3 Refill(s), [facility]: [id number] Alcohol 2018-11 Yes 1 ea, TOP, Maxwell janell Pads/Swabs 2-03 TID-Before l Misc/Other 04:25: Meals, PRN H ermann 00 As directed by physician, # 100 ea, 11 Refill(s), [facility]: [id number] BD 1.4 qt 2018-11 Yes 1 ea, Jose home sharps 2-03 MISC, l container 04:25: Q30D, Use Her aleman 00 for disposal of needles, # 1 ea, 11 Refill(s), [facility]: [id number] Blood 2018- Yes 1 ea, Katerinaoria Glucose 2-03 MISC, l Monitor 04:25: Daily, Use Herm trini 00 as directed., # 1 ea, 0 Refill(s), [facility]: [id number] Blood 2018- Yes 1 box, Memoria Glucose 2-03 MISC, l Test Strips 04:25: TID-Before [place] 00 Meals, # 100 strip, 0 Refill(s), [facility]: [id number] Glucose 2018- Yes 1 ea, Jose Control 2-03 MISC, l Solution 04:25: Daily, # 1 Her aleman 00 ea, 0 Refill(s), [facility]: [id number] Diabetes 2018- Yes 1 ea, Katerinaoria Self-Mangem 2-03 MISC, l ent 04:25: Daily, # 1 González Training 00 ea, 0 Refill(s), [facility]: [id number] Lancet 2019- Yes 1 box, Memoria Device 2-03 MISC, l 04:25: Daily, # 1 Gonz[place]lez 00 ea, 0 Refill(s), [facility]: [id number] Lancets 2019- Yes 1 box, Memoria 2-03 MISC, l 04:25: TID-Before [place] 00 Meals, # 1 box, 3 Refill(s), [facility]: [id number] Alcohol 2018- Yes 1 ea, TOP, Maxwell janell Pads/Swabs 2-03 TID-Before l Misc/Other 04:25: Meals, PRN H ermann 00 As directed by physician, # 100 ea, 11 Refill(s), [facility]: [id number] BD 1.4 qt 2018-11 Yes 1 ea, Memoria home sharps 2-03 MISC, l container 04:25: Q30D, Use Her aleman 00 for disposal of needles, # 1 ea, 11 Refill(s), [facility]: [id number] Blood 2018- Yes 1 ea, Memoria Glucose 2-03 MISC, l Monitor 04:25: Daily, Use Herm trini 00 as directed., # 1 ea, 0 Refill(s), [facility]: [id number] Blood 2018- Yes 1 box, Memoria Glucose 2-03 MISC, l Test Strips 04:25: TID-Before [place] 00 Meals, # 100 strip, 0 Refill(s), [facility]: [id number] Glucose 2018- Yes 1 ea, Memoria Control 2-03 MISC, l Solution 04:25: Daily, # 1 Her aleman 00 ea, 0 Refill(s), [facility]acy: [id number] Diabetes 2018- Yes 1 ea, Memoria Self-Mangem 2-03 MISC, l ent 04:25: Daily, # 1 González Training 00 ea, 0 Refill(s), [facility]: [id number] Lancet 2019- Yes 1 box, Memoria Device 2-03 MISC, l 04:25: Daily, # 1 [place] 00 ea, 0 Refill(s), Pharmacy: [id number] Lancets 2019- Yes 1 box, Memoria 2-03 MISC, l 04:25: TID-Before González 00 Meals, # 1 box, 3 Refill(s), [facility]acy: [id number] Alcohol 2019- Yes 1 ea, TOP, Maxwell janell Pads/Swabs 2-03 TID-Before l Misc/Other 04:25: Meals, PRN H ermann 00 As directed by physician, # 100 ea, 11 Refill(s), [facility]: [id number] BD 1.4 qt 2018- Yes 1 ea, Memoria home sharps 2-03 MISC, l container 04:25: Q30D, Use Her aleman 00 for disposal of needles, # 1 ea, 11 Refill(s), Pharmacy: [facility] #[id number] Blood 2018-11 Yes 1 ea, Memoria Glucose 2-03 MISC, l Monitor 04:25: Daily, Use Herm trini 00 as directed., # 1 ea, 0 Refill(s), Pharmacy: [facility] #[id number] Blood 2018-11 Yes 1 box, Memoria Glucose 2-03 MISC, l Test Strips 04:25: TID-Before [place] 00 Meals, # 100 strip, 0 Refill(s), [id number] Insulin 2018-11 Yes 10 unit, Memori a Glargine 2-03 SUB-Q, l 100 UNT/ML 04:24: Bedtime, # H ermann Injectable 00 15 mL, 3 Solution Refill(s), [Lantus] [id number] Insulin 2018-11 Yes 10 unit, Memori a Glargine 2-03 SUB-Q, l 100 UNT/ML 04:24: Bedtime, # H ermann Injectable 00 15 mL, 3 Solution Refill(s), [Lantus] Pharmacy: [facility] #[id number] Insulin 2018-11 Yes 10 unit, Memori a Glargine 2-03 SUB-Q, l 100 UNT/ML 04:24: Bedtime, # H ermann Injectable 00 15 mL, 3 Solution Refill(s), [Lantus] [id number] Insulin 2018-11 Yes 10 unit, Memori a Glargine 2-03 SUB-Q, l 100 UNT/ML 04:24: Bedtime, # H ermann Injectable 00 15 mL, 3 Solution Refill(s), [Lantus] Pharmacy: [facility] #[id number] Insulin 2018-11 Yes 10 unit, Memori a Glargine 2-03 SUB-Q, l 100 UNT/ML 04:24: Bedtime, # H ermann Injectable 00 15 mL, 3 Solution Refill(s), [Lantus] Pharmacy: [facility] #[id number] Insulin 2018-11 Yes 10 unit, Memori a Glargine 2-03 SUB-Q, l 100 UNT/ML 04:24: Bedtime, # H ermann Injectable 00 15 mL, 3 Solution Refill(s), [Lantus] [id number] Insulin 2018-11 Yes 10 unit, Memori a Glargine 2-03 SUB-Q, l 100 UNT/ML 04:24: Bedtime, # H ermann Injectable 00 15 mL, 3 Solution Refill(s), [L[facility]us] [id number] Insulin 2018-11 Yes 10 unit, Memori a Glargine 2-03 SUB-Q, l 100 UNT/ML 04:24: Bedtime, # H ermann Injectable 00 15 mL, 3 Solution Refill(s), [Lantus] [id number] Insulin 2018-11 Yes 10 unit, Memori a Glargine 2-03 SUB-Q, l 100 UNT/ML 04:24: Bedtime, # H ermann Injectable 00 15 mL, 3 Solution Refill(s), [Lantus] [id number] Insulin 2018-11 Yes 10 unit, Memori a Glargine 2-03 SUB-Q, l 100 UNT/ML 04:24: Bedtime, # H ermann Injectable 00 15 mL, 3 Solution Refill(s), [Lantus] [id number] Insulin 2018-11 Yes 10 unit, Memori a Glargine 2-03 SUB-Q, l 100 UNT/ML 04:24: Bedtime, # H ermann Injectable 00 15 mL, 3 Solution Refill(s), [Lantus] [id number] Insulin 2018-11 Yes 10 unit, Memori a Glargine 2-03 SUB-Q, l 100 UNT/ML 04:24: Bedtime, # H ermann Injectable 00 15 mL, 3 Solution Refill(s), [Lantus] [id number] ramipril 10 2018-11 Yes 10 mg = 1 M emoria mg oral 2-03 cap, PO, l capsule 04:19: Daily, # Matthew n 00 30 cap, 3 Refill(s), [id number] amLODIPine 2018-11 Yes 10 mg = 1 Me moria 10 mg oral 2-03 tab, PO, l tablet 04:19: Daily, # [place] 00 30 tab, 3 Refill(s), [id number] carvedilol 2018-11 Yes 6.25 mg = Me moria 6.25 mg 2-03 1 tab, PO, l oral tablet 04:19: Q12H, # 60 González 00 tab, 3 Refill(s), [facility]: [id number] spironolact 2018-11 Yes 25 mg = 1 M emoria one 25 mg 2-03 tab, PO, l oral tablet 04:19: BID, # 60 H ermann 00 tab, 3 Refill(s), Pharm[facility]: [id number] ramipril 2018-11 Yes 10 mg = 1 M emoria mg oral 2-03 cap, PO, l capsule 04:19: Daily, # Matthew n 00 30 cap, 3 Refill(s), Pharmacy: [id number] amLODIPine 2018-11 Yes 10 mg = 1 Me moria 10 mg oral 2-03 tab, PO, l tablet 04:19: Daily, # González 00 30 tab, 3 Refill(s), [facility]: [id number] carvedilol 2018-11 Yes 6.25 mg = Me moria 6.25 mg 2-03 1 tab, PO, l oral tablet 04:19: Q12H, # 60 González 00 tab, 3 Refill(s), Pharm[facility]: [id number] spironolact 2018-11 Yes 25 mg = 1 M emoria one 25 mg 2-03 tab, PO, l oral tablet 04:19: BID, # 60 H ermann 00 tab, 3 Refill(s), Pharm[facility]: [id number] ramipril 2018-11 Yes 10 mg = 1 M emoria mg oral 2-03 cap, PO, l capsule 04:19: Daily, # Matthew n 00 30 cap, 3 Refill(s), Pharm[facility]: [id number] amLODIPine 2018-11 Yes 10 mg = 1 Me moria 10 mg oral 2-03 tab, PO, l tablet 04:19: Daily, # [place] 00 30 tab, 3 Refill(s), Pharmacy: [id number] carvedilol 2018-11 Yes 6.25 mg = Me moria 6.25 mg 2-03 1 tab, PO, l oral tablet 04:19: Q12H, # 60 [place] 00 tab, 3 Refill(s), [id number] spironolact 2018-11 Yes 25 mg = 1 M emoria one 25 mg 2-03 tab, PO, l oral tablet 04:19: BID, # 60 H ermann 00 tab, 3 Refill(s), [id number] ramipril 10 2018-11 Yes 10 mg = 1 M emoria mg oral 2-03 cap, PO, l capsule 04:19: Daily, # Matthew n 00 30 cap, 3 Refill(s), [id number] amLODIPine 2018-11 Yes 10 mg = 1 Me moria 10 mg oral 2-03 tab, PO, l tablet 04:19: Daily, # [place] 00 30 tab, 3 Refill(s), [id number] carvedilol 2018-11 Yes 6.25 mg = Me moria 6.25 mg 2-03 1 tab, PO, l oral tablet 04:19: Q12H, # 60 González 00 tab, 3 Refill(s), [id number] spironolact 2018-11 Yes 25 mg = 1 M emoria one 25 mg 2-03 tab, PO, l oral tablet 04:19: BID, # 60 H ermann 00 tab, 3 Refill(s), Pharm[facility]: [id number] ramipril 2018-11 Yes 10 mg = 1 M emoria mg oral 2-03 cap, PO, l capsule 04:19: Daily, # Matthew n 00 30 cap, 3 Refill(s), [facility]: [id number] amLODIPine 2018-11 Yes 10 mg = 1 Me moria 10 mg oral 2-03 tab, PO, l tablet 04:19: Daily, # [place] 00 30 tab, 3 Refill(s), Pharm[facility]: [id number] carvedilol 2018-11 Yes 6.25 mg = Me moria 6.25 mg 2-03 1 tab, PO, l oral tablet 04:19: Q12H, # 60 González 00 tab, 3 Refill(s), [id number] spironolact 2018-11 Yes 25 mg = 1 M emoria one 25 mg 2-03 tab, PO, l oral tablet 04:19: BID, # 60 H ermann 00 tab, 3 Refill(s), Pharmacy: [facility] #[id number] ramipril 2018-11 Yes 10 mg = 1 M emoria mg oral 2-03 cap, PO, l capsule 04:19: Daily, # Matthew n 00 30 cap, 3 Refill(s), [id number] amLODIPine 2018-11 Yes 10 mg = 1 Me moria 10 mg oral 2-03 tab, PO, l tablet 04:19: Daily, # González 00 30 tab, 3 Refill(s), Pharmacy: [facility] #[id number] carvedilol 2018-11 Yes 6.25 mg = Me moria 6.25 mg 2-03 1 tab, PO, l oral tablet 04:19: Q12H, # 60 González 00 tab, 3 Refill(s), [id number] spironolact 2018-11 Yes 25 mg = 1 M emoria one 25 mg 2-03 tab, PO, l oral tablet 04:19: BID, # 60 H ermann 00 tab, 3 Refill(s), Pharmacy: [facility] #[id number] ramipril 2018-11 Yes 10 mg = 1 M emoria mg oral 2-03 cap, PO, l capsule 04:19: Daily, # Matthew n 00 30 cap, 3 Refill(s), [id number] amLODIPine 2018-11 Yes 10 mg = 1 Me moria 10 mg oral 2-03 tab, PO, l tablet 04:19: Daily, # [place] 00 30 tab, 3 Refill(s), Pharmacy: [facility] #[id number] carvedilol 2018-11 Yes 6.25 mg = Me moria 6.25 mg 2-03 1 tab, PO, l oral tablet 04:19: Q12H, # 60 [place] 00 tab, 3 Refill(s), Pharmacy: [facility] #[id number] ramipril 2018-11 Yes 10 mg = 1 M emoria mg oral 2-03 cap, PO, l capsule 04:19: Daily, # Matthew n 00 30 cap, 3 Refill(s), [id number] spironolact 2018-11 Yes 25 mg = 1 M emoria one 25 mg 2-03 tab, PO, l oral tablet 04:19: BID, # 60 H ermann 00 tab, 3 Refill(s), [id number] amLODIPine 2018-11 Yes 10 mg = 1 Me moria 10 mg oral 2-03 tab, PO, l tablet 04:19: Daily, # González 00 30 tab, 3 Refill(s), [id number] carvedilol 2018-11 Yes 6.25 mg = Me moria 6.25 mg 2-03 1 tab, PO, l oral tablet 04:19: Q12H, # 60 González 00 tab, 3 Refill(s), [id number] spironolact 2018-11 Yes 25 mg = 1 M emoria one 25 mg 2-03 tab, PO, l oral tablet 04:19: BID, # 60 H ermann 00 tab, 3 Refill(s), [id number] ramipril 10 2018-11 Yes 10 mg = 1 M emoria mg oral 2-03 cap, PO, l capsule 04:19: Daily, # Matthew n 00 30 cap, 3 Refill(s), [id number] amLODIPine 2018- Yes 10 mg = 1 Me moria 10 mg oral 2-03 tab, PO, l tablet 04:19: Daily, # González 00 30 tab, 3 Refill(s), [id number] carvedilol 2018-11 Yes 6.25 mg = Me moria 6.25 mg 2-03 1 tab, PO, l oral tablet 04:19: Q12H, # 60 [place] 00 tab, 3 Refill(s), [id number] spironolact 2018-11 Yes 25 mg = 1 M emoria one 25 mg 2-03 tab, PO, l oral tablet 04:19: BID, # 60 H ermann 00 tab, 3 Refill(s), [id number] ramipril 10 2018-11 Yes 10 mg = 1 M emoria mg oral 2-03 cap, PO, l capsule 04:19: Daily, # Matthew n 00 30 cap, 3 Refill(s), [id number] amLODIPine 2018-11 Yes 10 mg = 1 Me moria 10 mg oral 2-03 tab, PO, l tablet 04:19: Daily, # González 00 30 tab, 3 Refill(s), [id number] carvedilol 2018-11 Yes 6.25 mg = Me moria 6.25 mg 2-03 1 tab, PO, l oral tablet 04:19: Q12H, # 60 [place] 00 tab, 3 Refill(s), [id number] spironolact 2018-11 Yes 25 mg = 1 M emoria one 25 mg 2-03 tab, PO, l oral tablet 04:19: BID, # 60 H ermann 00 tab, 3 Refill(s), [id number] ramipril 2018-11 Yes 10 mg = 1 M emoria mg oral 2-03 cap, PO, l capsule 04:19: Daily, # Matthew n 00 30 cap, 3 Refill(s), [id number] amLODIPine 2018-11 Yes 10 mg = 1 Me moria 10 mg oral 2-03 tab, PO, l tablet 04:19: Daily, # [place] 00 30 tab, 3 Refill(s), [id number] carvedilol 2018-11 Yes 6.25 mg = Me moria 6.25 mg 2-03 1 tab, PO, l oral tablet 04:19: Q12H, # 60 González 00 tab, 3 Refill(s), [id number] spironolact 2018-11 Yes 25 mg = 1 M emoria one 25 mg 2-03 tab, PO, l oral tablet 04:19: BID, # 60 H ermann 00 tab, 3 Refill(s), [id number] ramipril 2018-11 Yes 10 mg = 1 M emoria mg oral 2-03 cap, PO, l capsule 04:19: Daily, # Matthew n 00 30 cap, 3 Refill(s), Pharmacy: [facility] #[id number] amLODIPine 2018- Yes 10 mg = 1 Me moria 10 mg oral 2-03 tab, PO, l tablet 04:19: Daily, # González 00 30 tab, 3 Refill(s), Pharmacy: [facility] #[id number] carvedilol 2018-11 Yes 6.25 mg = Me moria 6.25 mg 2-03 1 tab, PO, l oral tablet 04:19: Q12H, # 60 González 00 tab, 3 Refill(s), Pharmacy: [facility] #[id number] spironolact 2018- Yes 25 mg = 1 M emoria one 25 mg 2-03 tab, PO, l oral tablet 04:19: BID, # 60 H ermann 00 tab, 3 Refill(s), Pharmacy: [facility] #[id number] Insulin 2018-11 No Notes: Memoria Lispro 2-03 (Same as: l 03:31: Humalog) [place] 00 Roll in palms of hands gently; Do not shake vigorously . WASTE: F/P - Black; E - [facility]ash [facility] Stable for 28 days at room temperatur e. Expires in days from ____Date Insulin 2019- No Notes: Memoria Lispro 2-03 (Same as: l 03:31: Humalog) [place] 00 Roll in palms of hands gently; Do not shake vigorously . WASTE: F/P - Black; E - [facility] Trash [facility] Stable for 28 days at room temperatur e. Expires in days from ____Date Insulin 2019- No Notes: Memoria Lispro 2-03 (Same as: l 03:31: Humalog) [place] 00 Roll in palms of hands gently; Do not shake vigorously . WASTE: F/P - Black; E - [facility] Tr[facility] Stable for 28 days at room temperatur e. Expires in days from ____Date Insulin 2019- No Notes: Memoria Lispro 2-03 (Same as: l 03:31: Humalog) González 00 Roll in palms of hands gently; Do not shake vigorously . WASTE: F/P - Black; E - [facility] Trash [facility] Stable for 28 days at room temperatur e. Expires in days from ____Date Insulin 2019- No Notes: Memoria Lispro 2-03 (Same as: l 03:31: Humalog) González 00 Roll in palms of hands gently; Do not shake vigorously . WASTE: F/P - Black; E - [facility] Trash [facility] Stable for 28 days at room temperatur e. Expires in days from ____Date Insulin 2019- No Notes: Memoria Lispro 2-03 (Same as: l :31: Humalog) González 00 Roll in palms of hands gently; Do not shake vigorously . WASTE: F/P - Black; E - [facility] Trash [facility] Stable for 28 days at room temperatur e. Expires in days from ____Date Insulin 2019- No Notes: Memoria Lispro 2-03 (Same as: l :: Humalog) [place] 00 Roll in palms of hands gently; Do not shake vigorously . WASTE: F/P - Black; E - [facility] Trash [facility] Stable for 28 days at room temperatur e. Expires in days from ____Date Insulin 2019- No Notes: Memoria Lispro 2-03 (Same as: l 03:31: Humalog) Gonzá[place] 00 Roll in palms of hands gently; Do not shake vigorously . WASTE: F/P - Black; E - [facility] Trash Bin Stable for 28 days at room temperatur e. Expires in days from ____Date Insulin 2019- No Notes: Memoria Lispro 2-03 (Same as: l 03:31: Humalog) [place] 00 Roll in palms of hands gently; Do not shake vigorously . WASTE: F/P - Black; E - [facility] Trash Bin Stable for 28 days at room temperatur e. Expires in days from ____Date Insulin 2018-11 No Notes: Memoria Lispro 2-03 (Same as: l 03:31: Humalog) González 00 Roll in palms of hands gently; Do not shake vigorously . WASTE: F/P - Black; E - [facility] Trash Bin Stable for 28 days at room temperatur e. Expires in days from ____Date Insulin 2018-11 No Notes: Memoria Lispro 2-03 (Same as: l 03:31: Humalog) [place] 00 Roll in palms of hands gently; Do not shake vigorously . WASTE: F/P - Black; E - [facility] Trash Bin Stable for 28 days at room temperatur e. Expires in days from ____Date Insulin 2018-11 No Notes: Memoria Lispro 2-03 (Same as: l 03:31: Humalog) González 00 Roll in palms of hands gently; Do not shake vigorously . WASTE: F/P - Black; E - [facility] Trash Bin Stable for 28 days at room temperatur e. Expires in days from ____Date sodium 2018-11 No 2,000 mL, Memori a chloride 2-03 Route: IV, l 0.9% 02:28: Drug form: [place] (Priming 00 INJ, PRN, and Dosing Maintenance Weight ) 64.7 kg, Start date: 10/26/19 20:28:00 [place] [employer], Duration: 24 hr, Stop date: 10/27/19 20:27:00 [place] [employer], For Use by Dialysis Nurse ONLY, PRN Dialysis, 0 sodium 2018-11 No 2,000 mL, Memori a chloride 2-03 Route: IV, l 0.9% 02:28: Drug form: [place] (Priming 00 INJ, PRN, and Dosing Maintenance Weight ) 64.7 kg, Start date: 10/26/19 20:28:00 [place] [employer], Duration: 24 hr, Stop date: 10/27/19 20:27:00 [place] [employer], For Use by Dialysis Nurse ONLY, PRN Dialysis, 0 sodium 2019-1 No 2,000 mL, Memori a chloride 2-03 Route: IV, l 0.9% 02:28: Drug form: [place] (Priming 00 INJ, PRN, and Dosing Maintenance Weight ) 64.7 kg, Start date: 10/26/19 20:28:00 [place] [employer], Duration: 24 hr, Stop date: 10/27/19 20:27:00 [place] [employer], For Use by Dialysis Nurse ONLY, PRN Dialysis, 0 sodium 2019-1 No 2,000 mL, Memori a chloride 2-03 Route: IV, l 0.9% 02:28: Drug form: Gonz[place]lez (Priming 00 INJ, PRN, and Dosing Maintenance Weight ) 64.7 kg, Start date: 10/26/19 20:28:00 [place] [employer], Duration: 24 hr, Stop date: 10/27/19 20:27:00 [place] [employer], For Use by Dialysis Nurse ONLY, PRN Dialysis, 0 sodium 2019-1 No 2,000 mL, Memori a chloride 2-03 Route: IV, l 0.9% 02:28: Drug form: [place] (Priming 00 INJ, PRN, and Dosing Maintenance Weight ) 64.7 kg, Start date: 10/26/19 20:28:00 [place] [facility], Duration: 24 hr, Stop date: 10/27/19 20:27:00 [place] [facility], For Use by Dialysis Nurse ONLY, PRN Dialysis, 0 sodium 2019-1 No 2,000 mL, Memori a chloride 2-03 Route: IV, l 0.9% 02:28: Drug form: [place] (Priming 00 INJ, PRN, and Dosing Maintenance Weight ) 64.7 kg, Start date: 10/26/19 20:28:00 [place] [facility], Duration: 24 hr, Stop date: 10/27/19 20:27:00 [place] [employer], For Use by Dialysis Nurse ONLY, PRN Dialysis, 0 sodium 2019-1 No 2,000 mL, Memori a chloride 2-03 Route: IV, l 0.9% 02:28: Drug form: [place] (Priming 00 INJ, PRN, and Dosing Maintenance Weight ) 64.7 kg, Start date: 10/26/19 20:28:00 [place] [employer], Duration: 24 hr, Stop date: 10/27/19 20:27:00 [place] [employer], For Use by Dialysis Nurse ONLY, PRN Dialysis, 0 sodium 2019-1 No 2,000 mL, Memori a chloride 2-03 Route: IV, l 0.9% 02:28: Drug form: [place] (Priming 00 INJ, PRN, and Dosing Maintenance Weight ) 64.7 kg, Start date: 10/26/19 20:28:00 [place] [employer], Duration: 24 hr, Stop date: 10/27/19 20:27:00 [place] [employer], For Use by Dialysis Nurse ONLY, PRN Dialysis, 0 sodium 2019-1 No 2,000 mL, Memori a chloride 2-03 Route: IV, l 0.9% 02:28: Drug form: [place] (Priming 00 INJ, PRN, and Dosing Maintenance Weight ) 64.7 kg, Start date: 10/26/19 20:28:00 [place] [employer], Duration: 24 hr, Stop date: 10/27/19 20:27:00 [place] [employer], For Use by Dialysis Nurse ONLY, PRN Dialysis, 0 sodium 2019-1 No 2,000 mL, Memori a chloride 2-03 Route: IV, l 0.9% 02:28: Drug form: [place] (Priming 00 INJ, PRN, and Dosing Maintenance Weight ) 64.7 kg, Start date: 10/26/19 20:28:00 [place] [employer], Duration: 24 hr, Stop date: 10/27/19 20:27:00 [place] [employer], For Use by Dialysis Nurse ONLY, PRN Dialysis, 0 sodium 2019-1 No 2,000 mL, Memori a chloride 2-03 Route: IV, l 0.9% 02:28: Drug form: [place] (Priming 00 INJ, PRN, and Dosing Maintenance Weight ) 64.7 kg, Start date: 10/26/19 20:28:00 [place] [employer], Duration: 24 hr, Stop date: 10/27/19 20:27:00 [place] [employer], For Use by Dialysis Nurse ONLY, PRN Dialysis, 0 sodium 2019-1 No 2,000 mL, Memori a chloride 2-03 Route: IV, l 0.9% 02:28: Drug form: [place] (Priming 00 INJ, PRN, and Dosing Maintenance Weight ) 64.7 kg, Start date: 10/26/19 20:28:00 [place] [employer], Duration: 24 hr, Stop date: 10/27/19 20:27:00 [place] [employer], For Use by Dialysis Nurse ONLY, PRN Dialysis, 0 Versed 2018-11 No Notes: Memoria 2- (Same as: l 17:00: Versed) [place] 00 MEDICATION WASTE Product Size: 2 mg Product Wasted: ___ mg Versed 2018-11 No Notes: Memoria 2- (Same as: l 17:00: Versed) [place] 00 MEDICATION WASTE Product Size: 2 mg Product Wasted: ___ mg Versed 2018-11 No Notes: Memoria 2 (Same as: l 17:00: Versed) [place] 00 MEDICATION WASTE Product Size: 2 mg Product Wasted: ___ mg Versed 2018-11 No Notes: Memoria 12-27 (Same as: l 17:00: Versed) [place] 00 MEDICATION WASTE Product Size: 2 mg Product Wasted: ___ mg Versed 2018-11 No Notes: Memoria 2 (Same as: l 17:00: Versed) [place] 00 MEDICATION WASTE Product Size: 2 mg Product Wasted: ___ mg Versed 2018-11 No Notes: Memoria 12-27 (Same as: l 17:00: Versed) [place] 00 MEDICATION WASTE Product Size: 2 mg Product Wasted: ___ mg Versed 2018-11 No Notes: [facility] 2- (Same as: l 17:00: Versed) [place] 00 MEDICATION WASTE Product Size: 2 mg Product Wasted: ___ mg Versed 2018-11 No Notes: [facility] 2- (Same as: l 17:00: Versed) [place] 00 MEDICATION WASTE Product Size: 2 mg Product Wasted: ___ mg Versed 2018-11 No Notes: Mem[facility] 2- (Same as: l 17:00: Versed) [place] 00 MEDICATION WASTE Product Size: 2 mg Product Wasted: ___ mg Versed 2018-11 No Notes: [facility] 2- (Same as: l 17:00: Versed) [place] 00 MEDICATION WASTE Product Size: 2 mg Product Wasted: ___ mg Versed 2018-11 No Notes: Memoria 2-02 (Same as: l 17:00: Versed) [place] 00 MEDICATION WASTE Product Size: 2 mg Product Wasted: ___ mg Versed 2018-11 No Notes: Memoria 2- (Same as: l 17:00: Versed) [place] 00 MEDICATION WASTE Product Size: 2 mg Product Wasted: ___ mg Fentanyl 2018-11 No Notes: Memoria 2- (Same as: l 16:55: Sublimaze) [place] 00 Preservati ve free. Benzocaine 2018-11 No Notes: Memor ia 140 MG/ML / 2- (Same As: l but[place]en 20 16:55: Cetacaine) [place] MG/ML / 00 Cetacaine Tetracaine (benzocain 20 MG/ML e-tetracai Mucous ne-butambe Membrane n 14-2-2%) Topical Solution [Cetacaine] Fentanyl 2018-11 No Notes: Mem[facility] 2- (Same as: l 16:55: Sublimaze) [place] 00 Preservati ve free. Benzocaine 2018-11 No Notes: Memor ia 140 MG/ML / 2-02 (Same As: l butamben 20 16:55: Cetacaine) [place] MG/ML / 00 Cetacaine Tetracaine (benzocain 20 MG/ML e-tetracai Mucous ne-butambe Membrane n 14-2-2%) Topical Solution [Cetacaine] Fentanyl 2018-11 No Notes: Memoria 2-02 (Same as: l 16:55: Sublimaze) [place] 00 Preservati ve free. Benzocaine 2018-11 No Notes: Memor ia 140 MG/ML / 2-02 (Same As: l but[place]en 20 16:55: Cetacaine) [place] MG/ML / 00 Cetacaine Tetracaine (benzocain 20 MG/ML e-tetracai Mucous ne-butambe Membrane n 14-2-2%) Topical Solution [Cetacaine] Fentanyl 2018-11 No Notes: [facility] 2-02 (Same as: l 16:55: Sublimaze) [place] 00 Preservati ve free. Benzocaine 2018-11 No Notes: Memor ia 140 MG/ML / 2-02 (Same As: l but[place]en 20 16:55: Cetacaine) [place] MG/ML / 00 Cetacaine Tetracaine (benzocain 20 MG/ML e-tetracai Mucous ne-butambe Membrane n 14-2-2%) Topical Solution [Cetacaine] Fentanyl 2018-11 No Notes: [facility] 2-02 (Same as: l 16:55: Sublimaze) [place] Preservati ve free. Benzocaine 2018-11 No Notes: Memor ia 140 MG/ML / 2-02 (Same As: l but[place]en 20 16:55: Cetacaine) [place] MG/ML / 00 Cetacaine Tetracaine (benzocain 20 MG/ML e-tetracai Mucous ne-butambe Membrane n 14-2-2%) Topical Solution [Cetacaine] Fentanyl 2018-11 No Notes: Memoria 2-02 (Same as: l 16:55: Sublimaze) [place] Preservati ve free. Benzocaine 2018-11 No Notes: Memor ia 140 MG/ML / 2-02 (Same As: l but[place] 20 16:55: Cetacaine) [place] MG/ML / 00 Cetacaine Tetracaine (benzocain 20 MG/ML e-tetracai Mucous ne-butambe Membrane n 14-2-2%) Topical Solution [Cetacaine] Fentanyl 2018-11 No Notes: [facility] 2-02 (Same as: l 16:55: Sublimaze) [place] 00 Preservati ve free. Benzocaine 2018-11 No Notes: Memor ia 140 MG/ML / 2-02 (Same As: l [place] 20 16:55: Cetacaine) [place] MG/ML / 00 Cetacaine Tetracaine (benzocain 20 MG/ML e-tetracai Mucous ne-butambe Membrane n 14-2-2%) Topical Solution [Cetacaine] Fentanyl 2018-11 No Notes: [facility] 2-02 (Same as: l 16:55: Sublimaze) [place] 00 Preservati ve free. Benzocaine 2018-11 No Notes: Memor ia 140 MG/ML / 2-02 (Same As: l but[place] 20 16:55: Cetacaine) [place] MG/ML / 00 Cetacaine Tetracaine (benzocain 20 MG/ML e-tetracai Mucous ne-butambe Membrane n 14-2-2%) Topical Solution [Cetacaine] Fentanyl 2018-11 No Notes: [facility] 2-02 (Same as: l 16:55: Sublimaze) [place] 00 Preservati ve free. Benzocaine 2018-11 No Notes: Memor ia 140 MG/ML / 2-02 (Same As: l [place] 20 16:55: Cetacaine) [place] MG/ML / 00 Cetacaine Tetracaine (benzocain 20 MG/ML e-tetracai Mucous ne-butambe Membrane n 14-2-2%) Topical Solution [Cetacaine] Fentanyl 2018-11 No Notes: [facility] 2-02 (Same as: l 16:55: Sublimaze) [place] 00 Preservati ve free. Benzocaine 2018-11 No Notes: Memor ia 140 MG/ML / 2-02 (Same As: l [place] 20 16:55: Cetacaine) [place] MG/ML / 00 Cetacaine Tetracaine (benzocain 20 MG/ML e-tetracai Mucous ne-butambe Membrane n 14-2-2%) Topical Solution [Cetacaine] Fentanyl 2018-11 No Notes: [facility] 2-02 (Same as: l 16:55: Sublimaze) [place] 00 Preservati ve free. Benzocaine 2018-11 No Notes: Memor ia 140 MG/ML / 2-02 (Same As: l [place] 20 16:55: Cetacaine) [place] MG/ML / 00 Cetacaine Tetracaine (benzocain 20 MG/ML e-tetracai Mucous ne-butambe Membrane n 14-2-2%) Topical Solution [Cetacaine] Fentanyl 2018-11 No Notes: [facility] 2-02 (Same as: l 16:55: Sublimaze) [place] 00 Preservati ve free. Benzocaine 2018-11 No Notes: [facility]or ia 140 MG/ML / 2-02 (Same As: l [place] 20 16:55: Cetacaine) [place] MG/ML / 00 Cetacaine Tetracaine (benzocain 20 MG/ML e-tetracai Mucous ne-butambe Membrane n 14-2-2%) Topical Solution [Cetacaine] Insulin 2018-11 No Notes: Memoria Glargine 2-02 (Same as: l 100 UNT/ML 04:00: Lantus) Do H ermann Injectable 00 not hold Solution insulin [Lantus] without contacting prescriber WASTE: F/P - Black; E - [facility] Trash Bin "single patient use only" Stable for 28 days at room temperatur e Expires in days from ____Date Insulin 2018-11 No Notes: [facility]oria Glargine 2-02 (Same as: l 100 UNT/ML 04:00: Lantus) Do H [place] Injectable 00 not hold Solution insulin [Lantus] without contacting prescriber WASTE: F/P - Black; E - Municipal Trash Bin "single patient use only" Stable for 28 days at room temperatur e Expires in days from ____Date Insulin 2018-11 No Notes: Memoria Glargine 2-02 (Same as: l 100 UNT/ML 04:00: Lantus) Do H [place] Injectable 00 not hold Solution insulin [Lantus] without contacting prescriber WASTE: F/P - Black; E - Municipal Trash Bin "single patient use only" Stable for 28 days at room temperatur e Expires in days from ____Date Insulin 2018-11 No Notes: Memoria Glargine 2-02 (Same as: l 100 UNT/ML 04:00: Lantus) Do H [place] Injectable 00 not hold Solution insulin [Lantus] without contacting prescriber WASTE: F/P - Black; E - Municipal Trash Bin "single patient use only" Stable for 28 days at room temperatur e Expires in days from ____Date Insulin 2018-11 No Notes: Memoria Glargine 2-02 (Same as: l 100 UNT/ML 04:00: Lantus) Do H [place] Injectable 00 not hold Solution insulin [Lantus] without contacting prescriber WASTE: F/P - Black; E - Municipal Trash Bin "single patient use only" Stable for 28 days at room temperatur e Expires in days from ____Date Insulin 2019 No Notes: Memoria Glargine 2-02 (Same as: l 100 UNT/ML 04:00: Lantus) Do H [place] Injectable 00 not hold Solution insulin [Lantus] without contacting prescriber WASTE: F/P - Black; E - Municipal Trash Bin "single patient use only" Stable for 28 days at room temperatur e Expires in days from ____Date Insulin 2018-11 No Notes: Memoria Glargine 2-02 (Same as: l 100 UNT/ML 04:00: Lantus) Do H [place] Injectable 00 not hold Solution insulin [Lantus] without contacting prescriber WASTE: F/P - Black; E - Municipal Trash Bin "single patient use only" Stable for 28 days at room temperatur e Expires in days from ____Date Insulin 2018-11 No Notes: Memoria Glargine 2-02 (Same as: l 100 UNT/ML 04:00: Lantus) Do H [place] Injectable 00 not hold Solution insulin [Lantus] without contacting prescriber WASTE: F/P - Black; E - Municipal Trash Bin "single patient use only" Stable for 28 days at room temperatur e Expires in days from ____Date Insulin 2019 No Notes: Memoria Glargine 2-02 (Same as: l 100 UNT/ML 04:00: Lantus) Do H [place] Injectable 00 not hold Solution insulin [Lantus] without contacting prescriber WASTE: F/P - Black; E - Municipal Trash Bin "single patient use only" Stable for 28 days at room temperatur e Expires in days from ____Date Insulin 2018-11 No Notes: Memoria Glargine 2-02 (Same as: l 100 UNT/ML 04:00: Lantus) Do H [place] Injectable 00 not hold Solution insulin [Lantus] without contacting prescriber WASTE: F/P - Black; E - Municipal Trash Bin "single patient use only" Stable for 28 days at room temperatur e Expires in days from ____Date Insulin 2018-11 No Notes: Memoria Glargine 2-02 (Same as: l 100 UNT/ML 04:00: Lantus) Do [place] Injectable 00 not hold Solution insulin [Lantus] without contacting prescriber WASTE: F/P - Black; E - [facility] Trash Bin "single patient use only" Stable for 28 days at room temperatur e Expires in days from ____Date Insulin 2018-11 No Notes: Memoria Glargine 2-02 (Same as: l 100 UNT/ML 04:00: Lantus) Do H [place] Injectable 00 not hold Solution insulin [Lantus] without contacting prescriber WASTE: F/P - Black; E - Municipal Trash Bin "single patient use only" Stable for 28 days at room temperatur e Expires in days from ____Date Coreg 2018-11 No Notes: Memoria 2-02 Give with l 03:00: food. [place] 00 (Same As: Coreg) Coreg 2018-11 No Notes: [facility] 2-02 Give with l 03:00: food. [place] 00 (Same As: Coreg) Coreg 2018-11 No Notes: [facility] 2-02 Give with l 03:00: food. [place] 00 (Same As: Coreg) Coreg 2018-11 No Notes: [facility] 2-02 Give with l 03:00: food. [place] 00 (Same As: Coreg) Coreg 2018-11 No Notes: [facility] 2-02 Give with l 03:00: food. [place] 00 (Same As: Coreg) Coreg 2018-11 No Notes: [facility] 2-02 Give with l 03:00: food. [place] 00 (Same As: Coreg) Coreg 2018-11 No Notes: [facility] 2-02 Give with l 03:00: food. [place] 00 (Same As: Coreg) Coreg 2018-11 No Notes: [facility] 2-02 Give with l 03:00: food. [place] 00 (Same As: Coreg) Coreg 2018-11 No Notes: [facility] 2-02 Give with l 03:00: food. [place] 00 (Same As: Coreg) Coreg 2018-11 No Notes: [facility] 2-02 Give with l 03:00: food. [place] 00 (Same As: Coreg) Coreg 2018-11 No Notes: [facility] 2-02 Give with l 03:00: food. [place] 00 (Same As: Coreg) Coreg 2018-11 No Notes: [facility] 2-02 Give with l 03:00: food. [place] 00 (Same As: Coreg) Aldactone 2018-11 No Notes: Memori a 2-01 (Same As: l 23:00: Aldactone) [place] Aldactone 2018-11 No Notes: Memori a 2-01 (Same As: l 23:00: Aldactone) [place] Aldactone 2018-11 No Notes: Memori a 2-01 (Same As: l 23:00: Aldactone) [place] Aldactone 2018-11 No Notes: Memori a 2-01 (Same As: l 23:00: Aldactone) [place] Aldactone 2018-11 No Notes: Memori a 2-01 (Same As: l 23:00: Aldactone) [place] Aldactone 2018-11 No Notes: Memori a 2-01 (Same As: l 23:00: Aldactone) [place] Aldactone 2018-11 No Notes: Memori a 2-01 (Same As: l 23:00: Aldactone) [place] 00 Aldactone 2018-11 No Notes: Memori a 2-01 (Same As: l 23:00: Aldactone) [place] Aldactone 2018-11 No Notes: Memori a 2-01 (Same As: l 23:00: Aldactone) [place] Aldactone 2018-11 No Notes: Memori a 2-01 (Same As: l 23:00: Aldactone) [place] Aldactone 2018-11 No Notes: Memori a 2-01 (Same As: l 23:00: Aldactone) [place] Aldactone 2018-11 No Notes: Memori a 2-01 (Same As: l 23:00: Aldactone) [place] 00 Hydralazine 2018-11 No Notes: Maxwell janell 1-30 (Same as: l 19:00: Apresoline González 00 ) May interfere w/enteral feedings Take With Food. Hydralazine 2018-11 No Notes: Maxwell janell 1-30 (Same as: l 19:00: Apresoline [place] 00 ) May interfere w/enteral feedings Take With Food. Hydralazine 2018-11 No Notes: Maxwell janell 1-30 (Same as: l 19:00: Apresoline [place] 00 ) May interfere w/enteral feedings Take With Food. Hydralazine 2018-11 No Notes: Maxwell janell 1-30 (Same as: l 19:00: Apresoline [place] 00 ) May interfere w/enteral feedings Take With Food. Hydralazine 2018-11 No Notes: Maxwell janell 1-30 (Same as: l 19:00: Apresoline [place] 00 ) May interfere w/enteral feedings Take With Food. Hydralazine 2018-11 No Notes: Maxwell janell 1-30 (Same as: l 19:00: Apresoline [place] 00 ) May interfere w/enteral feedings Take With Food. Hydralazine 2018-11 No Notes: Maxwell janell 1-30 (Same as: l 19:00: Apresoline [place] 00 ) May interfere w/enteral feedings Take With Food. Hydralazine 2018-11 No Notes: Maxwell janell 1-30 (Same as: l 19:00: Apresoline [place] 00 ) May interfere w/enteral feedings Take With Food. Hydralazine 2018-11 No Notes: Mawxell janell 1-30 (Same as: l 19:00: Apresoline [place] 00 ) May interfere w/enteral feedings Take With Food. Hydralazine 2018-11 No Notes: Maxwell janell 1-30 (Same as: l 19:00: Apresoline [place] 00 ) May interfere w/enteral feedings Take With Food. Hydralazine 2018-11 No Notes: Maxwell janell 1-30 (Same as: l 19:00: Apresoline [place] 00 ) May interfere w/enteral feedings Take With Food. Hydralazine 2018-11 No Notes: Maxwell janell 1-30 (Same as: l 19:00: Apresoline [place] 00 ) May interfere w/enteral feedings Take With Food. Coreg 2018-11 No Notes: Memoria 1-30 Give with l 18:30: food. [place] 00 (Same As: Coreg) Coreg 2018-11 No Notes: [facility]oria 1-30 Give with l 18:30: food. [place] 00 (Same As: Coreg) Coreg 2018-11 No Notes: [facility]oria 1-30 Give with l 18:30: food. [place] 00 (Same As: Coreg) Coreg 2018-11 No Notes: [facility] 1-30 Give with l 18:30: food. [place] 00 (Same As: Coreg) Coreg 2018-11 No Notes: [facility] 1-30 Give with l 18:30: food. [place] 00 (Same As: Coreg) Coreg 2018-11 No Notes: [facility]oria 1-30 Give with l 18:30: food. [place] (Same As: Coreg) Coreg 2018-11 No Notes: Memoria 1-30 Give with l 18:30: food. [place] (Same As: Coreg) Coreg 2018-11 No Notes: Memoria 1-30 Give with l 18:30: food. [place] (Same As: Coreg) Coreg 2018-11 No Notes: Memoria 1-30 Give with l 18:30: food. [place] (Same As: Coreg) Coreg 2018-11 No Notes: Memoria 1-30 Give with l 18:30: food. [place] (Same As: Coreg) Coreg 2018-11 No Notes: Memoria 1-30 Give with l 18:30: food. [place] (Same As: Coreg) Coreg 2018-11 No Notes: Memoria 1-30 Give with l 18:30: food. [place] 00 (Same As: Coreg) Ramipril 2018-11 No Notes: Memoria 1-30 (Same l 15:37: as:Altace) [place] 00 Ramipril 2018-11 No Notes: [facility] 1-30 (Same l 15:37: as:Altace) [place] 00 Ramipril 2018-11 No Notes: [facility]oria 1-30 (Same l 15:37: as:Altace) [place] 00 Ramipril 2018-11 No Notes: Memoria 1-30 (Same l 15:37: as:Altace) [place] 00 Ramipril 2018-11 No Notes: [facility]oria 1-30 (Same l 15:37: as:Altace) Ramipril 2018-11 No Notes: [facility]oria 1-30 (Same l 15:37: as:Altace) Ramipril 2018-11 No Notes: Memoria 1-30 (Same l 15:37: as:Altace) Ramipril 2018-11 No Notes: [facility] 1-30 (Same l 15:37: as:Altace) Ramipril 2018-11 No Notes: [facility]oria 1-30 (Same l 15:37: as:Altace) Ramipril 2018-11 No Notes: [facility]oria 1-30 (Same l 15:37: as:Altace) Ramipril 2018-11 No Notes: [facility]oria 1-30 (Same l 15:37: as:Altace) Ramipril 2018-11 No Notes: Memoria 1-30 (Same l 15:37: as:Altace) Amlodipine 2018-11 No Notes: Memor ia 1-30 (Same as: l 15:00: Norvasc) Amlodipine 2018-11 No Notes: Memor ia 1-30 (Same as: l 15:00: Norvasc) Amlodipine 2018-11 No Notes: Memor ia 1-30 (Same as: l 15:00: Norvasc) Amlodipine 2018-11 No Notes: Memor ia 1-30 (Same as: l 15:00: Norvasc) Amlodipine 2018-11 No Notes: Memor ia 1-30 (Same as: l 15:00: Norvasc) Amlodipine 2018-11 No Notes: Memor ia 1-30 (Same as: l 15:00: Norvasc) Amlodipine 2018-11 No Notes: Memor ia 1-30 (Same as: l 15:00: Norvasc) Amlodipine 2018-11 No Notes: Memor ia 1-30 (Same as: l 15:00: Norvasc) Amlodipine 2018-11 No Notes: Memor ia 1-30 (Same as: l 15:00: Norvasc) Amlodipine 2018-11 No Notes: Memor ia 1-30 (Same as: l 15:00: Norvasc) Amlodipine 2018-11 No Notes: Memor ia 1-30 (Same as: l 15:00: Norvasc) Amlodipine 2018-11 No Notes: Memor ia 1-30 (Same as: l 15:00: Norvasc) Dextrose 2018-11 No 12.5 gm, Memor ia 50% Syringe 1-30 25 mL, l (D50W) 13:48: Route: [place] 00 IVP, Drug Form: INJ, Dosing Weight 64.7, kg, PRN, PRN Blood Glucose Results, Start date: 10/24/19 7:48:00 [place] [employer], Duration: 30 day, Stop date: 11/23/19 7:47:00 [place] [employer], 0 Glucagon 2018-11 No 1 mg, Memoria 12-24 Route: IM, l 13:48: Drug form: Gonz[place] 00 PDR/INJ, PRN, Dosing Weight 64.7, kg, PRN Blood Glucose Results, Start date: 10/24/19 7:48:00 [place] [employer], Duration: 30 day, Stop date: 11/23/19 7:47:00 [place] [employer], 0 Insulin 2018-11 No Notes: Memoria Lispro 1-30 (Same as: l 13:48: Humalog) Roll in palms of hands gently; Do not shake vigorously . WASTE: F/P - Black; E - Municipal Trash Bin Stable for 28 days at room temperatur e. Expires in days from ____Date Dextrose 2018-11 No 12.5 gm, Memor ia 50% Syringe 1-30 25 mL, l (D50W) 13:48: Route: [place] 00 IVP, Drug Form: INJ, Dosing Weight 64.7, kg, PRN, PRN Blood Glucose Results, Start date: 10/24/19 7:48:00 [place] [employer], Duration: 30 day, Stop date: 11/23/19 7:47:00 [place] [employer], 0 Glucagon 2018-11 No 1 mg, Memoria 30 Route: IM, l 13:48: Drug form: [place] 00 PDR/INJ, PRN, Dosing Weight 64.7, kg, PRN Blood Glucose Results, Start date: 10/24/19 7:48:00 [place] [employer], Duration: 30 day, Stop date: 11/23/19 7:47:00 [place] [employer], 0 Insulin 2018- No Notes: [facility] Lispro 1-30 (Same as: l 13:48: Humalog) [place] 00 Roll in palms of hands gently; Do not shake vigorously . WASTE: F/P - Black; E - Municipal Trash Bin Stable for 28 days at room temperatur e. Expires in days from ____Date Dextrose 2018-11 No 12.5 gm, Memor ia 50% Syringe 1-30 25 mL, l (D50W) 13:48: Route: [place] 00 IVP, Drug Form: INJ, Dosing Weight 64.7, kg, PRN, PRN Blood Glucose Results, Start date: 10/24/19 7:48:00 [place] [employer], Duration: 30 day, Stop date: 11/23/19 7:47:00 [place] [employer], 0 Glucagon 2018-11 No 1 mg, Memoria 1-30 Route: IM, l 13:48: Drug form: [place] 00 PDR/INJ, PRN, Dosing Weight 64.7, kg, PRN Blood Glucose Results, Start date: 10/24/19 7:48:00 [place] [employer], Duration: 30 day, Stop date: 11/23/19 7:47:00 [place] [employer], 0 Insulin 2018-11 No Notes: Mem[facility] Lispro 1-30 (Same as: l 13:48: Humalog) [place] 00 Roll in palms of hands gently; Do not shake vigorously . WASTE: F/P - Black; E - Municipal Trash Bin Stable for 28 days at room temperatur e. Expires in days from ____Date Dextrose 2018-11 No 12.5 gm, Memor ia 50% Syringe 1-30 25 mL, l (D50W) 13:48: Route: [place] 00 IVP, Drug Form: INJ, Dosing Weight 64.7, kg, PRN, PRN Blood Glucose Results, Start date: 10/24/19 7:48:00 [place] [employer], Duration: 30 day, Stop date: 11/23/19 7:47:00 [place] [employer], 0 Glucagon 2018- No 1 mg, Memoria 1-30 Route: IM, l 13:48: Drug form: [place] 00 PDR/INJ, PRN, Dosing Weight 64.7, kg, PRN Blood Glucose Results, Start date: 10/24/19 7:48:00 [place] [employer], Duration: 30 day, Stop date: 11/23/19 7:47:00 [place] [employer], 0 Insulin 2018- No Notes: [facility] Lispro 1-30 (Same as: l 13:48: Humalog) [place] 00 Roll in palms of hands gently; Do not shake vigorously . WASTE: F/P - Black; E - Municipal Trash Bin Stable for 28 days at room temperatur e. Expires in days from ____Date Dextrose 2018-11 No 12.5 gm, Memor ia 50% Syringe 1-30 25 mL, l (D50W) 13:48: Route: [place] 00 IVP, Drug Form: INJ, Dosing Weight 64.7, kg, PRN, PRN Blood Glucose Results, Start date: 10/24/19 7:48:00 [place] [employer], Duration: 30 day, Stop date: 11/23/19 7:47:00 [place] [employer], 0 Glucagon 2018-11 No 1 mg, Memoria 1-30 Route: IM, l 13:48: Drug form: [place] 00 PDR/INJ, PRN, Dosing Weight 64.7, kg, PRN Blood Glucose Results, Start date: 10/24/19 7:48:00 [place] [employer], Duration: 30 day, Stop date: 11/23/19 7:47:00 [place] [employer], 0 Insulin 2018- No Notes: [facility] Lispro 1-30 (Same as: l 13:48: Humalog) [place] 00 Roll in palms of hands gently; Do not shake vigorously . WASTE: F/P - Black; E - Municipal Trash Bin Stable for 28 days at room temperatur e. Expires in days from ____Date Dextrose 2018-11 No 12.5 gm, Memor ia 50% Syringe 1-30 25 mL, l (D50W) 13:48: Route: [place] 00 IVP, Drug Form: INJ, Dosing Weight 64.7, kg, PRN, PRN Blood Glucose Results, Start date: 10/24/19 7:48:00 [place] [employer], Duration: 30 day, Stop date: 11/23/19 7:47:00 [place] [employer], 0 Glucagon 2018-11 No 1 mg, Memoria 1-30 Route: IM, l 13:48: Drug form: [place] 00 PDR/INJ, PRN, Dosing Weight 64.7, kg, PRN Blood Glucose Results, Start date: 10/24/19 7:48:00 [place] [employer], Duration: 30 day, Stop date: 11/23/19 7:47:00 [place] [employer], 0 Insulin 2018- No Notes: [facility] Lispro 1-30 (Same as: l 13:48: Humalog) [place] 00 Roll in palms of hands gently; Do not shake vigorously . WASTE: F/P - Black; E - [employer] Trash Bin Stable for 28 days at room temperatur e. Expires in days from ____Date Dextrose 2018-11 No 12.5 gm, Memor ia 50% Syringe 1-30 25 mL, l (D50W) 13:48: Route: [place] 00 IVP, Drug Form: INJ, Dosing Weight 64.7, kg, PRN, PRN Blood Glucose Results, Start date: 10/24/19 7:48:00 [place] [employer], Duration: 30 day, Stop date: 11/23/19 7:47:00 [place] [employer], 0 Glucagon 2018-11 No 1 mg, Memoria 30 Route: IM, l 13:48: Drug form: [place] 00 PDR/INJ, PRN, Dosing Weight 64.7, kg, PRN Blood Glucose Results, Start date: 10/24/19 7:48:00 [place] [employer], Duration: 30 day, Stop date: 11/23/19 7:47:00 [place] [employer], 0 Insulin 2018- No Notes: [facility] Lispro 1-30 (Same as: l 13:48: Humalog) [place] 00 Roll in palms of hands gently; Do not shake vigorously . WASTE: F/P - Black; E - [facility] Trash Bin Stable for 28 days at room temperatur e. Expires in days from ____Date Dextrose 2018- No 12.5 gm, Memor ia 50% Syringe 1-30 25 mL, l (D50W) 13:48: Route: González 00 IVP, Drug Form: INJ, Dosing Weight 64.7, kg, PRN, PRN Blood Glucose Results, Start date: 10/24/19 7:48:00 [place] [employer], Duration: 30 day, Stop date: 11/23/19 7:47:00 [place] [employer], 0 Glucagon 2018-11 No 1 mg, Memoria 130 Route: IM, l 13:48: Drug form: González 00 PDR/INJ, PRN, Dosing Weight 64.7, kg, PRN Blood Glucose Results, Start date: 10/24/19 7:48:00 [place] [employer], Duration: 30 day, Stop date: 11/23/19 7:47:00 [place] [employer], 0 Insulin 2018-11 No Notes: Memoria Lispro 1-30 (Same as: l 13:48: Humalog) Roll in palms of hands gently; Do not shake vigorously . WASTE: F/P - Black; E - [facility] Trash Bin Stable for 28 days at room temperatur e. Expires in days from ____Date Dextrose 2018-11 No 12.5 gm, Memor ia 50% Syringe 1-30 25 mL, l (D50W) 13:48: Route: [place] 00 IVP, Drug Form: INJ, Dosing Weight 64.7, kg, PRN, PRN Blood Glucose Results, Start date: 10/24/19 7:48:00 [place] [employer], Duration: 30 day, Stop date: 11/23/19 7:47:00 [place] [employer], 0 Glucagon 2018-11 No 1 mg, Memoria 1-30 Route: IM, l 13:48: Drug form: González 00 PDR/INJ, PRN, Dosing Weight 64.7, kg, PRN Blood Glucose Results, Start date: 10/24/19 7:48:00 [place] [employer], Duration: 30 day, Stop date: 11/23/19 7:47:00 [place] [employer], 0 Insulin 2018-11 No Notes: Memoria Lispro 1-30 (Same as: l 13:48: Humalog) González 00 Roll in palms of hands gently; Do not shake vigorously . WASTE: F/P - Black; E - [facility] Trash Bin Stable for 28 days at room temperatur e. Expires in days from ____Date Dextrose 2018-11 No 12.5 gm, Memor ia 50% Syringe 1-30 25 mL, l (D50W) 13:48: Route: González 00 IVP, Drug Form: INJ, Dosing Weight 64.7, kg, PRN, PRN Blood Glucose Results, Start date: 10/24/19 7:48:00 [place] [employer], Duration: 30 day, Stop date: 11/23/19 7:47:00 [place] [employer], 0 Glucagon 2018-11 No 1 mg, Memoria 12-24 Route: IM, l 13:48: Drug form: [place] 00 PDR/INJ, PRN, Dosing Weight 64.7, kg, PRN Blood Glucose Results, Start date: 10/24/19 7:48:00 [place] [employer], Duration: 30 day, Stop date: 11/23/19 7:47:00 [place] [employer], 0 Insulin 2018-11 No Notes: Memoria Lispro 1-30 (Same as: l 13:48: Humalog) Roll in palms of hands gently; Do not shake vigorously . WASTE: F/P - Black; E - [facility] Trash Bin Stable for 28 days at room temperatur e. Expires in days from ____Date Dextrose 2018-11 No 12.5 gm, Memor ia 50% Syringe 1-30 25 mL, l (D50W) 13:48: Route: [place] 00 IVP, Drug Form: INJ, Dosing Weight 64.7, kg, PRN, PRN Blood Glucose Results, Start date: 10/24/19 7:48:00 [place] [employer], Duration: 30 day, Stop date: 11/23/19 7:47:00 [place] [employer], 0 Glucagon 2018-11 No 1 mg, Memoria 12-24 Route: IM, l 13:48: Drug form: [place] 00 PDR/INJ, PRN, Dosing Weight 64.7, kg, PRN Blood Glucose Results, Start date: 10/24/19 7:48:00 [place] [employer], Duration: 30 day, Stop date: 11/23/19 7:47:00 [place] [employer], 0 Insulin 2018-11 No Notes: Memoria Lispro 1-30 (Same as: l 13:48: Humalog) González 00 Roll in palms of hands gently; Do not shake vigorously . WASTE: F/P - Black; E - Municipal Trash Bin Stable for 28 days at room temperatur e. Expires in days from ____Date Dextrose 2018-11 No 12.5 gm, Memor ia 50% Syringe 1-30 25 mL, l (D50W) 13:48: Route: González 00 IVP, Drug Form: INJ, Dosing Weight 64.7, kg, PRN, PRN Blood Glucose Results, Start date: 10/24/19 7:48:00 [place] [employer], Duration: 30 day, Stop date: 11/23/19 7:47:00 [place] [employer], 0 Glucagon 2018-11 No 1 mg, Memoria 1-30 Route: IM, l 13:48: Drug form: [place] 00 PDR/INJ, PRN, Dosing Weight 64.7, kg, PRN Blood Glucose Results, Start date: 10/24/19 7:48:00 [place] [employer], Duration: 30 day, Stop date: 11/23/19 7:47:00 [place] [employer], 0 Insulin 2018-11 No Notes: Memoria Lispro 1-30 (Same as: l 13:48: Humalog) [place] 00 Roll in palms of hands gently; Do not shake vigorously . WASTE: F/P - Black; E - Municipal Trash Bin Stable for 28 days at room temperatur e. Expires in days from ____Date Docusate 2018-11 No Notes: Memoria Sodium 100 1-30 (Same as: l MG Oral 03:00: Colace) [place] Capsule 00 (Do Not [Colace] Crush) Docusate 2018-11 No Notes: Memoria Sodium 100 1-30 (Same as: l MG Oral 03:00: Colace) Gonz[place]lez Capsule 00 (Do Not [Colace] Crush) Docusate 2018-11 No Notes: Memoria Sodium 100 1-30 (Same as: l MG Oral 03:00: Colace) [place] Capsule 00 (Do Not [Colace] Crush) Docusate 2018-11 No Notes: Memoria Sodium 100 1-30 (Same as: l MG Oral 03:00: Colace) [place] Capsule 00 (Do Not [Colace] Crush) [facility] No Notes: Memoria Sodium 100 1-30 (Same as: l MG Oral 03:00: Colace) [place] Capsule 00 (Do Not [Colace] Crush) [facility] 2018-11 No Notes: Memoria Sodium 100 1-30 (Same as: l MG Oral 03:00: Colace) [place] Capsule 00 (Do Not [Colace] Crush) [facility]-11 No Notes: Memoria Sodium 100 1-30 (Same as: l MG Oral 03:00: Colace) [place]lez Capsule 00 (Do Not [Colace] Crush) [facility] 2018-11 No Notes: Memoria Sodium 100 1-30 (Same as: l MG Oral 03:00: Colace) [place] Capsule 00 (Do Not [Colace] Crush) [facility] 2018-11 No Notes: Memoria Sodium 100 1-30 (Same as: l MG Oral 03:00: Colace) González Capsule 00 (Do Not [Colace] Crush) [facility] No Notes: Memoria Sodium 100 1-30 (Same as: l MG Oral 03:00: Colace) [place] Capsule 00 (Do Not [Colace] Crush) [facility] Notes: Memoria Sodium 100 1-30 (Same as: l MG Oral 03:00: Colace) [place] Capsule 00 (Do Not [Colace] Crush) [facility] No Notes: Memoria Sodium 100 1-30 (Same as: l MG Oral 03:00: Colace) [place] Capsule 00 (Do Not [Colace] Crush) enalapril 2018-11 No 10 mg = 1 Mem oria 10 mg oral 1-30 tab, PO, l tablet 00:32: Daily, # González 00 30 tab, 0 Refill(s) Furosemide 2018-11 No 40 mg = 1 Me moria 40 MG Oral 1-30 tab, PO, l Tablet 00:32: Daily, # [place] 00 30 tab, 0 Refill(s) ramipril 5 2018-11 No 5 mg = 1 Mem oria mg oral 1-30 cap, PO, l capsule 00:32: Bedtime, # Herm trini 00 30 cap, 1 Refill(s) metoprolol 2018-11 No 50 mg = 1 Me moria tartrate 50 1-30 tab, PO, l mg oral 00:32: Daily, 0 Matthew n tablet 00 Refill(s) doxazosin 4 2018-11 Yes 4 mg = 1 Me moria mg oral 1-30 tab, PO, l tablet 00:32: Bedtime, # Linda nn 00 30 tab, 0 Refill(s) enalapril 2018-11 No 10 mg = 1 Mem oria 10 mg oral 1-30 tab, PO, l tablet 00:32: Daily, # [place]lez 00 30 tab, 0 Refill(s) Furosemide 2018-11 No 40 mg = 1 Me moria 40 MG Oral 1-30 tab, PO, l Tablet 00:32: Daily, # [place] 00 30 tab, 0 Refill(s) ramipril 5 2018-11 No 5 mg = 1 Mem oria mg oral 1-30 cap, PO, l capsule 00:32: Bedtime, # Herm trini 00 30 cap, 1 Refill(s) metoprolol 2018-11 No 50 mg = 1 Me moria tartrate 50 1-30 tab, PO, l mg oral 00:32: Daily, 0 Matthew n tablet 00 Refill(s) doxazosin 4 2018-11 Yes 4 mg = 1 Me moria mg oral 1-30 tab, PO, l tablet 00:32: Bedtime, # Linda nn 00 30 tab, 0 Refill(s) enalapril 2018-11 No 10 mg = 1 Mem oria 10 mg oral 1-30 tab, PO, l tablet 00:32: Daily, # [place] 00 30 tab, 0 Refill(s) Furosemide 2018-11 No 40 mg = 1 Me moria 40 MG Oral 1-30 tab, PO, l Tablet 00:32: Daily, # [place] 00 30 tab, 0 Refill(s) ramipril 5 2018-11 No 5 mg = 1 Mem oria mg oral 1-30 cap, PO, l capsule 00:32: Bedtime, # Herm trini 00 30 cap, 1 Refill(s) metoprolol 2018-11 No 50 mg = 1 Me moria tartrate 50 1-30 tab, PO, l mg oral 00:32: Daily, 0 Matthew n tablet 00 Refill(s) doxazosin 4 2018-11 Yes 4 mg = 1 Me moria mg oral 1-30 tab, PO, l tablet 00:32: Bedtime, # Linda nn 00 30 tab, 0 Refill(s) enalapril 2018-11 No 10 mg = 1 Mem oria 10 mg oral 1-30 tab, PO, l tablet 00:32: Daily, # [place] 00 30 tab, 0 Refill(s) Furosemide 2018-11 No 40 mg = 1 Me moria 40 MG Oral 1-30 tab, PO, l Tablet 00:32: Daily, # [place] 00 30 tab, 0 Refill(s) ramipril 5 2018-11 No 5 mg = 1 Mem oria mg oral 1-30 cap, PO, l capsule 00:32: Bedtime, # Herm trini 00 30 cap, 1 Refill(s) metoprolol 2018-11 No 50 mg = 1 Me moria tartrate 50 1-30 tab, PO, l mg oral 00:32: Daily, 0 Matthew n tablet 00 Refill(s) doxazosin 4 2018-11 Yes 4 mg = 1 Me moria mg oral 1-30 tab, PO, l tablet 00:32: Bedtime, # Linda nn 00 30 tab, 0 Refill(s) enalapril 2018-11 No 10 mg = 1 Mem oria 10 mg oral 1-30 tab, PO, l tablet 00:32: Daily, # [place] 00 30 tab, 0 Refill(s) Furosemide 2018-11 No 40 mg = 1 Me moria 40 MG Oral 1-30 tab, PO, l Tablet 00:32: Daily, # González 00 30 tab, 0 Refill(s) ramipril 5 2018-11 No 5 mg = 1 Mem oria mg oral 1-30 cap, PO, l capsule 00:32: Bedtime, # Herm trini 00 30 cap, 1 Refill(s) metoprolol 2018-11 No 50 mg = 1 Me moria tartrate 50 1-30 tab, PO, l mg oral 00:32: Daily, 0 Matthew n tablet 00 Refill(s) doxazosin 4 2018-11 Yes 4 mg = 1 Me moria mg oral 1-30 tab, PO, l tablet 00:32: Bedtime, # Linda nn 00 30 tab, 0 Refill(s) enalapril 2018-11 No 10 mg = 1 Mem oria 10 mg oral 1-30 tab, PO, l tablet 00:32: Daily, # Gonz[place] 00 30 tab, 0 Refill(s) Furosemide 2018-11 No 40 mg = 1 Me moria 40 MG Oral 1-30 tab, PO, l Tablet 00:32: Daily, # Gonz[place]lez 00 30 tab, 0 Refill(s) ramipril 5 2018-11 No 5 mg = 1 Mem oria mg oral 1-30 cap, PO, l capsule 00:32: Bedtime, # Herm trini 00 30 cap, 1 Refill(s) metoprolol 2018-11 No 50 mg = 1 Me moria tartrate 50 1-30 tab, PO, l mg oral 00:32: Daily, 0 Matthew n tablet 00 Refill(s) doxazosin 4 2018-11 Yes 4 mg = 1 Me moria mg oral 1-30 tab, PO, l tablet 00:32: Bedtime, # Linda nn 00 30 tab, 0 Refill(s) enalapril 2018-11 No 10 mg = 1 Mem oria 10 mg oral 1-30 tab, PO, l tablet 00:32: Daily, # [place] 00 30 tab, 0 Refill(s) Furosemide 2018-11 No 40 mg = 1 Me moria 40 MG Oral 1-30 tab, PO, l Tablet 00:32: Daily, # González 00 30 tab, 0 Refill(s) ramipril 5 2018-11 No 5 mg = 1 Mem oria mg oral 1-30 cap, PO, l capsule 00:32: Bedtime, # Herm trini 00 30 cap, 1 Refill(s) metoprolol 2018-11 No 50 mg = 1 Me moria tartrate 50 1-30 tab, PO, l mg oral 00:32: Daily, 0 Matthew n tablet 00 Refill(s) doxazosin 4 2018-11 Yes 4 mg = 1 Me moria mg oral 1-30 tab, PO, l tablet 00:32: Bedtime, # Linda nn 00 30 tab, 0 Refill(s) enalapril 2018-11 No 10 mg = 1 Mem oria 10 mg oral 1-30 tab, PO, l tablet 00:32: Daily, # [place] 00 30 tab, 0 Refill(s) Furosemide 2018-11 No 40 mg = 1 Me moria 40 MG Oral 1-30 tab, PO, l Tablet 00:32: Daily, # [place] 00 30 tab, 0 Refill(s) ramipril 5 2018-11 No 5 mg = 1 Mem oria mg oral 1-30 cap, PO, l capsule 00:32: Bedtime, # Herm trini 00 30 cap, 1 Refill(s) metoprolol 2018-11 No 50 mg = 1 Me moria tartrate 50 1-30 tab, PO, l mg oral 00:32: Daily, 0 Matthew n tablet 00 Refill(s) doxazosin 4 2018-11 Yes 4 mg = 1 Me moria mg oral 1-30 tab, PO, l tablet 00:32: Bedtime, # Linda nn 00 30 tab, 0 Refill(s) enalapril 2018-11 No 10 mg = 1 Mem oria 10 mg oral 1-30 tab, PO, l tablet 00:32: Daily, # González 00 30 tab, 0 Refill(s) Furosemide 2018-11 No 40 mg = 1 Me moria 40 MG Oral 1-30 tab, PO, l Tablet 00:32: Daily, # Gonz[place]lez 00 30 tab, 0 Refill(s) ramipril 5 2018-11 No 5 mg = 1 Mem oria mg oral 1-30 cap, PO, l capsule 00:32: Bedtime, # Herm trini 00 30 cap, 1 Refill(s) metoprolol 2018-11 No 50 mg = 1 Me moria tartrate 50 1-30 tab, PO, l mg oral 00:32: Daily, 0 Matthew n tablet 00 Refill(s) doxazosin 4 2018-11 Yes 4 mg = 1 Me moria mg oral 1-30 tab, PO, l tablet 00:32: Bedtime, # Linda nn 00 30 tab, 0 Refill(s) enalapril 2018-11 No 10 mg = 1 Mem oria 10 mg oral 1-30 tab, PO, l tablet 00:32: Daily, # González 00 30 tab, 0 Refill(s) Furosemide 2018-11 No 40 mg = 1 Me moria 40 MG Oral 1-30 tab, PO, l Tablet 00:32: Daily, # [place] 00 30 tab, 0 Refill(s) ramipril 5 2018-11 No 5 mg = 1 Mem oria mg oral 1-30 cap, PO, l capsule 00:32: Bedtime, # Herm trini 00 30 cap, 1 Refill(s) metoprolol 2018-11 No 50 mg = 1 Me moria tartrate 50 1-30 tab, PO, l mg oral 00:32: Daily, 0 Matthew n tablet 00 Refill(s) doxazosin 4 2018-11 Yes 4 mg = 1 Me moria mg oral 1-30 tab, PO, l tablet 00:32: Bedtime, # Linda nn 00 30 tab, 0 Refill(s) enalapril 2018-11 No 10 mg = 1 Mem oria 10 mg oral 1-30 tab, PO, l tablet 00:32: Daily, # [place] 00 30 tab, 0 Refill(s) Furosemide 2018-11 No 40 mg = 1 Me moria 40 MG Oral 1-30 tab, PO, l Tablet 00:32: Daily, # [place] 00 30 tab, 0 Refill(s) ramipril 5 2018-11 No 5 mg = 1 Mem oria mg oral 1-30 cap, PO, l capsule 00:32: Bedtime, # Herm trini 00 30 cap, 1 Refill(s) metoprolol 2018-11 No 50 mg = 1 Me moria tartrate 50 1-30 tab, PO, l mg oral 00:32: Daily, 0 Matthew n tablet 00 Refill(s) doxazosin 4 2018-11 Yes 4 mg = 1 Me moria mg oral 1-30 tab, PO, l tablet 00:32: Bedtime, # Linda nn 00 30 tab, 0 Refill(s) enalapril 2018-11 No 10 mg = 1 Mem oria 10 mg oral 1-30 tab, PO, l tablet 00:32: Daily, # [place] 00 30 tab, 0 Refill(s) Furosemide 2018-11 No 40 mg = 1 Me moria 40 MG Oral 1-30 tab, PO, l Tablet 00:32: Daily, # González 00 30 tab, 0 Refill(s) ramipril 5 2018-11 No 5 mg = 1 Mem oria mg oral 1-30 cap, PO, l capsule 00:32: Bedtime, # Herm trini 00 30 cap, 1 Refill(s) metoprolol 2018-11 No 50 mg = 1 Me moria tartrate 50 1-30 tab, PO, l mg oral 00:32: Daily, 0 Matthew n tablet 00 Refill(s) doxazosin 4 2018-11 Yes 4 mg = 1 Me moria mg oral 1-30 tab, PO, l tablet 00:32: Bedtime, # Linda nn 00 30 tab, 0 Refill(s) influenza 2018-11 No Notes: Memori a virus 1-30 (Same as: l vaccine, 00:10: Fluzone Matthew n inactivated 52 Quadrivale nt, Fluarix Quadrivale nt) For patients 6 - 35 months of age (0.5 mL IM) For 3 years of age and older (0.5 mL IM) Shake well before use influenza 2018-11 No Notes: Memori a virus 1-30 (Same as: l vaccine, 00:10: Fluzone Matthew n inactivated 52 Quadrivale nt, Fluarix Quadrivale nt) For patients 6 - 35 months of age (0.5 mL IM) For 3 years of age and older (0.5 mL IM) Shake well before use influenza 2018-11 No Notes: Memori a virus 1-30 (Same as: l vaccine, 00:10: Fluzone Matthew n inactivated 52 Quadrivale nt, Fluarix Quadrivale nt) For patients 6 - 35 months of age (0.5 mL IM) For 3 years of age and older (0.5 mL IM) Shake well before use influenza 2018-11 No Notes: Memori a virus 1-30 (Same as: l vaccine, 00:10: Fluzone Matthew n inactivated 52 Quadrivale nt, Fluarix Quadrivale nt) For patients 6 - 35 months of age (0.5 mL IM) For 3 years of age and older (0.5 mL IM) Shake well before use influenza 2018-11 No Notes: Memori a virus 1-30 (Same as: l vaccine, 00:10: Fluzone Matthew n inactivated 52 Quadrivale nt, Fluarix Quadrivale nt) For patients 6 - 35 months of age (0.5 mL IM) For 3 years of age and older (0.5 mL IM) Shake well before use influenza 2018-11 No Notes: Memori a virus 1-30 (Same as: l vaccine, 00:10: Fluzone Matthew n inactivated 52 Quadrivale nt, Fluarix Quadrivale nt) For patients 6 - 35 months of age (0.5 mL IM) For 3 years of age and older (0.5 mL IM) Shake well before use influenza 2018-11 No Notes: Memori a virus 1-30 (Same as: l vaccine, 00:10: Fluzone Matthew n inactivated 52 Quadrivale nt, Fluarix Quadrivale nt) For patients 6 - 35 months of age (0.5 mL IM) For 3 years of age and older (0.5 mL IM) Shake well before use influenza 2018-11 No Notes: Memori a virus 1-30 (Same as: l vaccine, 00:10: Fluzone Matthew n inactivated 52 Quadrivale nt, Fluarix Quadrivale nt) For patients 6 - 35 months of age (0.5 mL IM) For 3 years of age and older (0.5 mL IM) Shake well before use influenza 2018-11 No Notes: Memori a virus 1-30 (Same as: l vaccine, 00:10: Fluzone Matthew n inactivated 52 Quadrivale nt, Fluarix Quadrivale nt) For patients 6 - 35 months of age (0.5 mL IM) For 3 years of age and older (0.5 mL IM) Shake well before use influenza 2018-11 No Notes: Memori a virus 1-30 (Same as: l vaccine, 00:10: Fluzone Matthew n inactivated 52 Quadrivale nt, Fluarix Quadrivale nt) For patients 6 - 35 months of age (0.5 mL IM) For 3 years of age and older (0.5 mL IM) Shake well before use influenza 2018-11 No Notes: Memori a virus 1-30 (Same as: l vaccine, 00:10: Fluzone Matthew n inactivated 52 Quadrivale nt, Fluarix Quadrivale nt) For patients 6 - 35 months of age (0.5 mL IM) For 3 years of age and older (0.5 mL IM) Shake well before use influenza 2018-11 No Notes: Memori a virus 1-30 (Same as: l vaccine, 00:10: Fluzone Matthew n inactivated 52 Quadrivale nt, Fluarix Quadrivale nt) For patients 6 - 35 months of age (0.5 mL IM) For 3 years of age and older (0.5 mL IM) Shake well before use Hydralazine 2018-11 No Notes: Maxwell janell 1-30 (Same as: l 00:00: Apresoline González 00 ) May interfere w/enteral feedings Take With Food. Hydralazine 2018-11 No Notes: Maxwell janell 1-30 (Same as: l 00:00: Apresoline [place] 00 ) May interfere w/enteral feedings Take With Food. Hydralazine 2018-11 No Notes: Maxwell janell 1-30 (Same as: l 00:00: Apresoline [place] 00 ) May interfere w/enteral feedings Take With Food. Hydralazine 2018-11 No Notes: Maxwell janell 1-30 (Same as: l 00:00: Apresoline [place] 00 ) May interfere w/enteral feedings Take With Food. Hydralazine 2018-11 No Notes: Maxwell janell 1-30 (Same as: l 00:00: Apresoline [place] 00 ) May interfere w/enteral feedings Take With Food. Hydralazine 2018-11 No Notes: Maxwell janell 1-30 (Same as: l 00:00: Apresoline González 00 ) May interfere w/enteral feedings Take With Food. Hydralazine 2018-11 No Notes: Maxwell janell 1-30 (Same as: l 00:00: Apresoline González 00 ) May interfere w/enteral feedings Take With Food. Hydralazine 2018-11 No Notes: Maxwell janell 1-30 (Same as: l 00:00: Apresoline [place] 00 ) May interfere w/enteral feedings Take With Food. Hydralazine 2018-11 No Notes: Maxwell janell 1-30 (Same as: l 00:00: Apresoline González 00 ) May interfere w/enteral feedings Take With Food. Hydralazine 2018-11 No Notes: Maxwell janell 1-30 (Same as: l 00:00: Apresoline González 00 ) May interfere w/enteral feedings Take With Food. Hydralazine 2018-11 No Notes: Maxwell janell 1-30 (Same as: l 00:00: Apresoline [place] 00 ) May interfere w/enteral feedings Take With Food. Hydralazine 2018-11 No Notes: Maxwell janell 1-30 (Same as: l 00:00: Apresoline González 00 ) May interfere w/enteral feedings Take With Food. sodium 2018-11 No 2,000 mL, Memori a chloride 1-29 0 ml/hr, l 0.9% 22:38: Infuse González (Priming 00 Over: 0 and hr, Route: Maintenance IV, 2,000, ) Drug form: INJ, PRN, Dosing Weight 64.7 kg, Start date: 10/23/19 16:38:00 [place] [employer], Duration: 24 hr, Stop date: 10/24/19 16:37:00 [place] [employer], For Use by Dialysis Nurse ONLY, PRN Dialysis, 0 sodium 2018-11 No 2,000 mL, Memori a chloride 1-29 0 ml/hr, l 0.9% 22:38: Infuse González (Priming 00 Over: 0 and hr, Route: Maintenance IV, 2,000, ) Drug form: INJ, PRN, Dosing Weight 64.7 kg, Start date: 10/23/19 16:38:00 [place] [employer], Duration: 24 hr, Stop date: 10/24/19 16:37:00 [place] [employer], For Use by Dialysis Nurse ONLY, PRN Dialysis, 0 sodium 2018-11 No 2,000 mL, Memori a chloride 1-29 0 ml/hr, l 0.9% 22:38: Infuse [place] (Priming 00 Over: 0 and hr, Route: Maintenance IV, 2,000, ) Drug form: INJ, PRN, Dosing Weight 64.7 kg, Start date: 10/23/19 16:38:00 [place] [employer], Duration: 24 hr, Stop date: 10/24/19 16:37:00 [place] [employer], For Use by Dialysis Nurse ONLY, PRN Dialysis, 0 sodium 2018-11 No 2,000 mL, Memori a chloride 1-29 0 ml/hr, l 0.9% 22:38: Infuse [place] (Priming 00 Over: 0 and hr, Route: Maintenance IV, 2,000, ) Drug form: INJ, PRN, Dosing Weight 64.7 kg, Start date: 10/23/19 16:38:00 [place] [employer], Duration: 24 hr, Stop date: 10/24/19 16:37:00 [place] [employer], For Use by Dialysis Nurse ONLY, PRN Dialysis, 0 sodium 2019-1 No 2,000 mL, Memori a chloride 1-29 0 ml/hr, l 0.9% 22:38: Infuse González (Priming 00 Over: 0 and hr, Route: Maintenance IV, 2,000, ) Drug form: INJ, PRN, Dosing Weight 64.7 kg, Start date: 10/23/19 16:38:00 [place] [employer], Duration: 24 hr, Stop date: 10/24/19 16:37:00 [place] [employer], For Use by Dialysis Nurse ONLY, PRN Dialysis, 0 sodium 2019- No 2,000 mL, Memori a chloride 1-29 0 ml/hr, l 0.9% 22:38: Infuse [place] (Priming 00 Over: 0 and hr, Route: Maintenance IV, 2,000, ) Drug form: INJ, PRN, Dosing Weight 64.7 kg, Start date: 10/23/19 16:38:00 [place] [employer], Duration: 24 hr, Stop date: 10/24/19 16:37:00 [place] [employer], For Use by Dialysis Nurse ONLY, PRN Dialysis, 0 sodium 2019-1 No 2,000 mL, Memori a chloride 1-29 0 ml/hr, l 0.9% 22:38: Infuse González (Priming 00 Over: 0 and hr, Route: Maintenance IV, 2,000, ) Drug form: INJ, PRN, Dosing Weight 64.7 kg, Start date: 10/23/19 16:38:00 [place] [employer], Duration: 24 hr, Stop date: 10/24/19 16:37:00 [place] [employer], For Use by Dialysis Nurse ONLY, PRN Dialysis, 0 sodium 2019-1 No 2,000 mL, Memori a chloride 1-29 0 ml/hr, l 0.9% 22:38: Infuse [place] (Priming 00 Over: 0 and hr, Route: Maintenance IV, 2,000, ) Drug form: INJ, PRN, Dosing Weight 64.7 kg, Start date: 10/23/19 16:38:00 [place] [employer], Duration: 24 hr, Stop date: 10/24/19 16:37:00 [place] [employer], For Use by Dialysis Nurse ONLY, PRN Dialysis, 0 sodium 2019-1 No 2,000 mL, Memori a chloride 1-29 0 ml/hr, l 0.9% 22:38: Infuse González (Priming 00 Over: 0 and hr, Route: Maintenance IV, 2,000, ) Drug form: INJ, PRN, Dosing Weight 64.7 kg, Start date: 10/23/19 16:38:00 [place] [employer], Duration: 24 hr, Stop date: 10/24/19 16:37:00 [place] [employer], For Use by Dialysis Nurse ONLY, PRN Dialysis, 0 sodium 2019-1 No 2,000 mL, Memori a chloride 1-29 0 ml/hr, l 0.9% 22:38: Infuse González (Priming 00 Over: 0 and hr, Route: Maintenance IV, 2,000, ) Drug form: INJ, PRN, Dosing Weight 64.7 kg, Start date: 10/23/19 16:38:00 [place] [employer], Duration: 24 hr, Stop date: 10/24/19 16:37:00 [place] [employer], For Use by Dialysis Nurse ONLY, PRN Dialysis, 0 sodium 2019-1 No 2,000 mL, Memori a chloride 1-29 0 ml/hr, l 0.9% 22:38: Infuse [place] (Priming 00 Over: 0 and hr, Route: Maintenance IV, 2,000, ) Drug form: INJ, PRN, Dosing Weight 64.7 kg, Start date: 10/23/19 16:38:00 [place] [employer], Duration: 24 hr, Stop date: 10/24/19 16:37:00 [place] [employer], For Use by Dialysis Nurse ONLY, PRN Dialysis, 0 sodium 2019-1 No 2,000 mL, Memori a chloride 1-29 0 ml/hr, l 0.9% 22:38: Infuse [place] (Priming 00 Over: 0 and hr, Route: Maintenance IV, 2,000, ) Drug form: INJ, PRN, Dosing Weight 64.7 kg, Start date: 10/23/19 16:38:00 [employer], Duration: 24 hr, Stop date: 10/24/19 16:37:00 [employer] [employer], For Use by Dialysis Nurse ONLY, PRN Dialysis, 0 Dextrose 2018-11 No 12.5 gm, Memor ia 50% Syringe 12-23 25 mL, l (D50W) 19:47: Route: [place] 00 IVP, Drug Form: INJ, Dosing Weight 64.7, kg, PRN, PRN Blood Glucose Results, Start date: 10/23/19 13:47:00 [place] [employer], Duration: 30 day, Stop date: 11/22/19 13:46:00 [place] [employer], 0 Glucagon 2018-11 No 1 mg, [facility] 12-23 Route: IM, l 19:47: Drug form: [place] 00 PDR/INJ, PRN, Dosing Weight 64.7, kg, PRN Blood Glucose Results, Start date: 10/23/19 13:47:00 [place] [employer], Duration: 30 day, Stop date: 11/22/19 13:46:00 [place] [employer], 0 Insulin 2018-11 No Notes: [facility] regular 12-23 (Same as: l 19:47: Humulin R) Roll in palms of hands gently; Do not shake vigorously . WASTE: F/P - Black; E - Municipal Trash Bin Stable for 31 days at room temperatur e Expires in days from ____Date Dextrose 2018-11 No 12.5 gm, [facility] 50% Syringe 12-23 25 mL, l (D50W) 19:47: Route: [place] IVP, Drug Form: INJ, Dosing Weight 64.7, kg, PRN, PRN Blood Glucose Results, Start date: 10/23/19 13:47:00 [place] [employer], Duration: 30 day, Stop date: 11/22/19 13:46:00 [place] [employer], 0 Glucagon 2018-11 No 1 mg, [facility] 12-23 Route: IM, l 19:47: Drug form: [place] 00 PDR/INJ, PRN, Dosing Weight 64.7, kg, PRN Blood Glucose Results, Start date: 10/23/19 13:47:00 [place] [employer], Duration: 30 day, Stop date: 11/22/19 13:46:00 [place] [employer], 0 Insulin 2018-11 No Notes: [facility] regular 12-23 (Same as: l 19:47: Humulin R) [place] 00 Roll in palms of hands gently; Do not shake vigorously . WASTE: F/P - Black; E - [employer] Trash Bin Stable for 31 days at room temperatur e Expires in days from ____Date Dextrose 2018-11 No 12.5 gm, [facility] 50% Syringe 12-23 25 mL, l (D50W) 19:47: Route: [place] 00 IVP, Drug Form: INJ, Dosing Weight 64.7, kg, PRN, PRN Blood Glucose Results, Start date: 10/23/19 13:47:00 [place] [employer], Duration: 30 day, Stop date: 11/22/19 13:46:00 [place] [employer], 0 Glucagon 2018-11 No 1 mg, Memoria 12-23 Route: IM, l 19:47: Drug form: González 00 PDR/INJ, PRN, Dosing Weight 64.7, kg, PRN Blood Glucose Results, Start date: 10/23/19 13:47:00 [place] [employer], Duration: 30 day, Stop date: 11/22/19 13:46:00 [place] [employer], 0 Insulin 2018-11 No Notes: Memoria regular 12-23 (Same as: l 19:47: Humulin R) González 00 Roll in palms of hands gently; Do not shake vigorously . WASTE: F/P - Black; E - [employer] Trash Bin Stable for 31 days at room temperatur e Expires in days from ____Date Dextrose 2018-11 No 12.5 gm, Memor ia 50% Syringe 12-23 25 mL, l (D50W) 19:47: Route: [place] 00 IVP, Drug Form: INJ, Dosing Weight 64.7, kg, PRN, PRN Blood Glucose Results, Start date: 10/23/19 13:47:00 [place] [employer], Duration: 30 day, Stop date: 11/22/19 13:46:00 [place] [employer], 0 Glucagon 2018-11 No 1 mg, Memoria 12-23 Route: IM, l 19:47: Drug form: [place] 00 PDR/INJ, PRN, Dosing Weight 64.7, kg, PRN Blood Glucose Results, Start date: 10/23/19 13:47:00 [place] [employer], Duration: 30 day, Stop date: 11/22/19 13:46:00 [place] [employer], 0 Insulin 2018-11 No Notes: Memoria regular 12-23 (Same as: l 19:47: Humulin R) [place] 00 Roll in palms of hands gently; Do not shake vigorously . WASTE: F/P - Black; E - [employer] Trash Bin Stable for 31 days at room temperatur e Expires in days from ____Date Dextrose 2018-11 No 12.5 gm, Memor ia 50% Syringe 12-23 25 mL, l (D50W) 19:47: Route: [place] 00 IVP, Drug Form: INJ, Dosing Weight 64.7, kg, PRN, PRN Blood Glucose Results, Start date: 10/23/19 13:47:00 [place] [employer], Duration: 30 day, Stop date: 11/22/19 13:46:00 [place] [employer], 0 Glucagon 2018-11 No 1 mg, Memoria 12-23 Route: IM, l 19:47: Drug form: González 00 PDR/INJ, PRN, Dosing Weight 64.7, kg, PRN Blood Glucose Results, Start date: 10/23/19 13:47:00 [place] [employer], Duration: 30 day, Stop date: 11/22/19 13:46:00 [place] [employer], 0 Insulin 2018-11 No Notes: Memoria regular 12-23 (Same as: l 19:47: Humulin R) González Roll in palms of hands gently; Do not shake vigorously . WASTE: F/P - Black; E - [employer] Trash Bin Stable for 31 days at room temperatur e Expires in days from ____Date Dextrose 2018-11 No 12.5 gm, Memor ia 50% Syringe 12-23 25 mL, l (D50W) 19:47: Route: [place] 00 IVP, Drug Form: INJ, Dosing Weight 64.7, kg, PRN, PRN Blood Glucose Results, Start date: 10/23/19 13:47:00 [place] [employer], Duration: 30 day, Stop date: 11/22/19 13:46:00 [place] [employer], 0 Glucagon 2018-11 No 1 mg, Memoria 12-23 Route: IM, l 19:47: Drug form: González 00 PDR/INJ, PRN, Dosing Weight 64.7, kg, PRN Blood Glucose Results, Start date: 10/23/19 13:47:00 [place] [employer], Duration: 30 day, Stop date: 11/22/19 13:46:00 [place] [employer], 0 Insulin 2018-11 No Notes: Memoria regular 12-23 (Same as: l 19:47: Humulin R) [place] 00 Roll in palms of hands gently; Do not shake vigorously . WASTE: F/P - Black; E - [facility] Trash Bin Stable for 31 days at room temperatur e Expires in days from ____Date Dextrose 2018-11 No 12.5 gm, Memor ia 50% Syringe 12-23 25 mL, l (D50W) 19:47: Route: [place] 00 IVP, Drug Form: INJ, Dosing Weight 64.7, kg, PRN, PRN Blood Glucose Results, Start date: 10/23/19 13:47:00 [place] [employer], Duration: 30 day, Stop date: 11/22/19 13:46:00 [place] [employer], 0 Glucagon 2018-11 No 1 mg, Memoria 12-23 Route: IM, l 19:47: Drug form: [place] 00 PDR/INJ, PRN, Dosing Weight 64.7, kg, PRN Blood Glucose Results, Start date: 10/23/19 13:47:00 [place] [employer], Duration: 30 day, Stop date: 11/22/19 13:46:00 [place] [employer], 0 Insulin 2018-11 No Notes: Memoria regular 12-23 (Same as: l 19:47: Humulin R) [place] 00 Roll in palms of hands gently; Do not shake vigorously . WASTE: F/P - Black; E - [employer] Trash Bin Stable for 31 days at room temperatur e Expires in days from ____Date Dextrose 2018-11 No 12.5 gm, Memor ia 50% Syringe 12-23 25 mL, l (D50W) 19:47: Route: [place] 00 IVP, Drug Form: INJ, Dosing Weight 64.7, kg, PRN, PRN Blood Glucose Results, Start date: 10/23/19 13:47:00 [employer] [employer], Duration: 30 day, Stop date: 11/22/19 13:46:00 [place] [employer], 0 Glucagon 2018-11 No 1 mg, Memoria 12-23 Route: IM, l 19:47: Drug form: [place] 00 PDR/INJ, PRN, Dosing Weight 64.7, kg, PRN Blood Glucose Results, Start date: 10/23/19 13:47:00 [place] [employer], Duration: 30 day, Stop date: 11/22/19 13:46:00 [place] [employer], 0 Insulin 2018-11 No Notes: Memoria regular 12-23 (Same as: l 19:47: Humulin R) [place] 00 Roll in palms of hands gently; Do not shake vigorously . WASTE: F/P - Black; E - [facility] Trash Bin Stable for 31 days at room temperatur e Expires in days from ____Date Dextrose 2018-11 No 12.5 gm, Memor ia 50% Syringe 12-23 25 mL, l (D50W) 19:47: Route: [place]lez IVP, Drug Form: INJ, Dosing Weight 64.7, kg, PRN, PRN Blood Glucose Results, Start date: 10/23/19 13:47:00 [place] [employer], Duration: 30 day, Stop date: 11/22/19 13:46:00 [place] [employer], 0 Glucagon 2018-11 No 1 mg, Memoria 12-23 Route: IM, l 19:47: Drug form: [place] 00 PDR/INJ, PRN, Dosing Weight 64.7, kg, PRN Blood Glucose Results, Start date: 10/23/19 13:47:00 [place] [employer], Duration: 30 day, Stop date: 11/22/19 13:46:00 [place] [employer], 0 Insulin 2018-11 No Notes: Memoria regular 12-23 (Same as: l 19:47: Humulin R) [place] 00 Roll in palms of hands gently; Do not shake vigorously . WASTE: F/P - Black; E - [employer] Trash Bin Stable for 31 days at room temperatur e Expires in days from ____Date Dextrose 2018-11 No 12.5 gm, Memor ia 50% Syringe 12-23 25 mL, l (D50W) 19:47: Route: [place] 00 IVP, Drug Form: INJ, Dosing Weight 64.7, kg, PRN, PRN Blood Glucose Results, Start date: 10/23/19 13:47:00 [employer] [employer], Duration: 30 day, Stop date: 11/22/19 13:46:00 [place] [employer], 0 Glucagon 2018-11 No 1 mg, Memoria 12-23 Route: IM, l 19:47: Drug form: [place] 00 PDR/INJ, PRN, Dosing Weight 64.7, kg, PRN Blood Glucose Results, Start date: 10/23/19 13:47:00 [place] [employer], Duration: 30 day, Stop date: 11/22/19 13:46:00 [place] [employer], 0 Insulin 2018-11 No Notes: Memoria regular 12-23 (Same as: l 19:47: Humulin R) [place] 00 Roll in palms of hands gently; Do not shake vigorously . WASTE: F/P - Black; E - [employer] Trash Bin Stable for 31 days at room temperatur e Expires in days from ____Date Dextrose 2018-11 No 12.5 gm, Memor ia 50% Syringe 12-23 25 mL, l (D50W) 19:47: Route: [place] 00 IVP, Drug Form: INJ, Dosing Weight 64.7, kg, PRN, PRN Blood Glucose Results, Start date: 10/23/19 13:47:00 [place] [employer], Duration: 30 day, Stop date: 11/22/19 13:46:00 [place] [employer], 0 Glucagon 2018-11 No 1 mg, Memoria 12-23 Route: IM, l 19:47: Drug form: [place] 00 PDR/INJ, PRN, Dosing Weight 64.7, kg, PRN Blood Glucose Results, Start date: 10/23/19 13:47:00 [place] [employer], Duration: 30 day, Stop date: 11/22/19 13:46:00 [place] [employer], 0 Insulin 2018-11 No Notes: Memoria regular 12-23 (Same as: l 19:47: Humulin R) [place] 00 Roll in palms of hands gently; Do not shake vigorously . WASTE: F/P - Black; E - [facility] Trash Bin Stable for 31 days at room temperatur e Expires in days from ____Date Dextrose 2018-11 No 12.5 gm, Memor ia 50% Syringe 12-23 25 mL, l (D50W) 19:47: Route: [place] 00 IVP, Drug Form: INJ, Dosing Weight 64.7, kg, PRN, PRN Blood Glucose Results, Start date: 10/23/19 13:47:00 [place] [employer], Duration: 30 day, Stop date: 11/22/19 13:46:00 [place] [employer], 0 Glucagon 2018-11 No 1 mg, Memoria 12-23 Route: IM, l 19:47: Drug form: [place] 00 PDR/INJ, PRN, Dosing Weight 64.7, kg, PRN Blood Glucose Results, Start date: 10/23/19 13:47:00 [place] [employer], Duration: 30 day, Stop date: 11/22/19 13:46:00 [place] [employer], 0 Insulin 2018-11 No Notes: Memoria regular 12-23 (Same as: l 19:47: Humulin R) Roll in palms of hands gently; Do not shake vigorously . WASTE: F/P - Black; E - [facility] Trash Bin Stable for 31 days at room temperatur e Expires in days from ____Date sennosides, 2018-11 No Notes: Maxwell janell SKILLED NURSING 12-23 (Same as: l 15:24: Senokot) sennoside, 2018-11 No Notes: Maxwell janell SKILLED NURSING 12-23 (Same as: l 15:24: Senokot) sennosides, 2018-11 No Notes: Maxwell janell SKILLED NURSING 12-23 (Same as: l 15:24: Senokot) sennoside, 2018-11 No Notes: Maxwell janell SKILLED NURSING 12-23 (Same as: l 15:24: Senokot) sennosides, 2018-11 No Notes: Maxwell janell SKILLED NURSING 12-23 (Same as: l 15:24: Senokot) sennosides, 2018-11 No Notes: Maxwell janell SKILLED NURSING 1-29 (Same as: l 15:24: Senokot) González sennosides, 2018-11 No Notes: Maxwell janell SKILLED NURSING 1-29 (Same as: l 15:24: Senokot) [place] sennosides, 2018-11 No Notes: Maxwell janell SKILLED NURSING 1-29 (Same as: l 15:24: Senokot) [place] sennosides, 2018-11 No Notes: Maxwell janell SKILLED NURSING 1-29 (Same as: l 15:24: Senokot) [place] sennosides, 2018-11 No Notes: Maxwell janell SKILLED NURSING 1-29 (Same as: l 15:24: Senokot) González sennosides, 2018-11 No Notes: Maxwell janell SKILLED NURSING -29 (Same as: l 15:24: Senokot) [place] 00 sennosides, 2018-11 No Notes: Maxwell janell SKILLED NURSING -29 (Same as: l 15:24: Senokot) González Tylenol 2018-11 No Notes: Do Memor ia -29 not exceed l 15:21: 4 gm/day. [place] 00 (Same as: Tylenol) Tylenol 2018-11 No Notes: Do Memor ia -29 not exceed l 15:21: 4 gm/day. [place] 00 (Same as: Tylenol) Tylenol 2018-11 No Notes: Do Memor ia 1-29 not exceed l 15:21: 4 gm/day. [place] 00 (Same as: Tylenol) Tylenol 2018-11 No Notes: Do Memor ia 1-29 not exceed l 15:21: 4 gm/day. [place] 00 (Same as: Tylenol) Tylenol 2018-11 No Notes: Do Memor ia 1-29 not exceed l 15:21: 4 gm/day. [place] 00 (Same as: Tylenol) Tylenol 2018-11 No Notes: Do Memor ia -29 not exceed l 15:21: 4 gm/day. [place] 00 (Same as: Tylenol) Tylenol 2018-11 No Notes: Do Memor ia 1-29 not exceed l 15:21: 4 gm/day. [place] 00 (Same as: Tylenol) Tylenol 2018-11 No Notes: Do Memor ia 1-29 not exceed l 15:21: 4 gm/day. [place] 00 (Same as: Tylenol) Tylenol 2018-11 No Notes: Do Memor ia 1-29 not exceed l 15:21: 4 gm/day. [place] 00 (Same as: Tylenol) Tylenol 2018-11 No Notes: Do Memor ia 1-29 not exceed l 15:21: 4 gm/day. [place] 00 (Same as: Tylenol) Tylenol 2018-11 No Notes: Do Memor ia 1-29 not exceed l 15:21: 4 gm/day. [place] 00 (Same as: Tylenol) Tylenol 2018-11 No Notes: Do Memor ia 1-29 not exceed l 15:21: 4 gm/day. [place] 00 (Same as: Tylenol) pantoprazol 2018-11 No Notes: For Memoria e 1-29 IV push l 15:00: reconstitu González 00 te with 10 ml 0.9% sodium chloride and push over 2 minutes. (Same as: Protonix) Saline 2018-11 No Notes: Memoria Flush 0.9% 1-29 (Same as: l 15:00: BD [place] 00 Posiflush) pantoprazol 2018-11 No Notes: For Memoria e 1-29 IV push l 15:00: reconstitu [place] 00 te with 10 ml 0.9% sodium chloride and push over 2 minutes. (Same as: Protonix) Saline 2018-11 No Notes: [facility]oria Flush 0.9% 1-29 (Same as: l 15:00: BD [place] 00 Posiflush) pantoprazol 2018-11 No Notes: For Memoria e 1-29 IV push l 15:00: reconstitu [place] 00 te with 10 ml 0.9% sodium chloride and push over 2 minutes. (Same as: Protonix) Saline 2018-11 No Notes: [facility] Flush 0.9% 1-29 (Same as: l 15:00: BD [place] 00 Posiflush) pantoprazol 2018-11 No Notes: For Memoria e 1-29 IV push l 15:00: reconstitu [place] 00 te with 10 ml 0.9% sodium chloride and push over 2 minutes. (Same as: Protonix) Saline 2018-11 No Notes: [facility]oria Flush 0.9% 1-29 (Same as: l 15:00: BD [place] 00 Posiflush) pantoprazol 2018-11 No Notes: For Memoria e 1-29 IV push l 15:00: reconstitu [place] 00 te with 10 ml 0.9% sodium chloride and push over 2 minutes. (Same as: Protonix) Saline 2018-11 No Notes: [facility] Flush 0.9% 1-29 (Same as: l 15:00: BD [place] 00 Posiflush) pantoprazol 2018-11 No Notes: For Memoria e 1-29 IV push l 15:00: reconstitu [place] 00 te with 10 ml 0.9% sodium chloride and push over 2 minutes. (Same as: Protonix) Saline 2018-11 No Notes: [facility]oria Flush 0.9% 1-29 (Same as: l 15:00: BD [place] 00 Posiflush) pantoprazol 2018-11 No Notes: For Memoria e 1-29 IV push l 15:00: reconstitu [place] 00 te with 10 ml 0.9% sodium chloride and push over 2 minutes. (Same as: Protonix) Saline 2018-11 No Notes: [facility] Flush 0.9% 1-29 (Same as: l 15:00: BD [place] 00 Posiflush) pantoprazol 2018-11 No Notes: For Memoria e 1-29 IV push l 15:00: reconstitu [place] 00 te with 10 ml 0.9% sodium chloride and push over 2 minutes. (Same as: Protonix) Saline 2018-11 No Notes: [facility]oria Flush 0.9% 1-29 (Same as: l 15:00: BD [place] 00 Posiflush) pantoprazol 2018-11 No Notes: For Memoria e 1-29 IV push l 15:00: reconstitu [place] 00 te with 10 ml 0.9% sodium chloride and push over 2 minutes. (Same as: Protonix) Saline 2018-11 No Notes: Memoria Flush 0.9% 1-29 (Same as: l 15:00: BD [place] 00 Posiflush) pantoprazol 2018-11 No Notes: For Memoria e 1-29 IV push l 15:00: reconstitu [place] 00 te with 10 ml 0.9% sodium chloride and push over 2 minutes. (Same as: Protonix) Saline 2018-11 No Notes: [facility]oria Flush 0.9% 1-29 (Same as: l 15:00: BD [place] 00 Posiflush) pantoprazol 2018-11 No Notes: For Memoria e 1-29 IV push l 15:00: reconstitu [place] 00 te with 10 ml 0.9% sodium chloride and push over 2 minutes. (Same as: Protonix) Saline 2018-11 No Notes: [facility]oria Flush 0.9% 1-29 (Same as: l 15:00: BD [place] 00 Posiflush) pantoprazol 2018-11 No Notes: For Memoria e 1-29 IV push l 15:00: reconstitu [place] 00 te with 10 ml 0.9% sodium chloride and push over 2 minutes. (Same as: Protonix) Saline 2018-11 No Notes: [facility]oria Flush 0.9% 1-29 (Same as: l 15:00: BD [place] 00 Posiflush) Labetalol 2018-11 No Notes: Memori a 1-29 (Same as: l 14:14: Normodyne, [place] 00 Trandate) Push over 2 minutes Give bolus over 2-3 minutes. Hydralazine 2018-11 No Notes: Maxwell janell 1-29 (Same as: l 14:14: Apresoline [place] 00 ) Push over 5 minutes Labetalol 2018-11 No Notes: Memori a 1-29 (Same as: l 14:14: Normodyne, [place] 00 Trandate) Push over 2 minutes Give bolus over 2-3 minutes. Hydralazine 2018-11 No Notes: Maxwell janell 1-29 (Same as: l 14:14: Apresoline [place] 00 ) Push over 5 minutes Labetalol 2018-11 No Notes: Memori a 1-29 (Same as: l 14:14: Normodyne, [place] 00 Trandate) Push over 2 minutes Give bolus over 2-3 minutes. Hydralazine 2018-11 No Notes: Maxwell janell 1-29 (Same as: l 14:14: Apresoline [place] 00 ) Push over 5 minutes Labetalol 2018-11 No Notes: Memori a 1-29 (Same as: l 14:14: Normodyne, [place] 00 Trandate) Push over 2 minutes Give bolus over 2-3 minutes. Hydralazine 2018-11 No Notes: Maxwell janell 1-29 (Same as: l 14:14: Apresoline [place] 00 ) Push over 5 minutes Labetalol 2018-11 No Notes: Memori a 1-29 (Same as: l 14:14: Normodyne, [place] 00 Trandate) Push over 2 minutes Give bolus over 2-3 minutes. Hydralazine 2018-11 No Notes: Maxwell janell 1-29 (Same as: l 14:14: Apresoline [place] 00 ) Push over 5 minutes Labetalol 2018-11 No Notes: Memori a 1-29 (Same as: l 14:14: Normodyne, [place] 00 Trandate) Push over 2 minutes Give bolus over 2-3 minutes. Hydralazine 2018-11 No Notes: Maxwell janell 1-29 (Same as: l 14:14: Apresoline [place] 00 ) Push over 5 minutes Labetalol 2018-11 No Notes: Memori a 1-29 (Same as: l 14:14: Normodyne, [place] 00 Trandate) Push over 2 minutes Give bolus over 2-3 minutes. Hydralazine 2018-11 No Notes: Maxwell janell 1-29 (Same as: l 14:14: Apresoline [place] 00 ) Push over 5 minutes Labetalol 2018-11 No Notes: Memori a 1-29 (Same as: l 14:14: Normodyne, [place] 00 Trandate) Push over 2 minutes Give bolus over 2-3 minutes. Hydralazine 2018-11 No Notes: Maxwell janell 1-29 (Same as: l 14:14: Apresoline [place] 00 ) Push over 5 minutes Labetalol 2018-11 No Notes: Memori a 1-29 (Same as: l 14:14: Normodyne, [place] 00 Trandate) Push over 2 minutes Give bolus over 2-3 minutes. Hydralazine 2018-11 No Notes: Maxwell janell 1-29 (Same as: l 14:14: Apresoline [place] 00 ) Push over 5 minutes Labetalol 2018-11 No Notes: Memori a 1-29 (Same as: l 14:14: Normodyne, [place] 00 Trandate) Push over 2 minutes Give bolus over 2-3 minutes. Hydralazine 2018-11 No Notes: Maxwell janell 1-29 (Same as: l 14:14: Apresoline [place] 00 ) Push over 5 minutes Labetalol 2018-11 No Notes: Memori a 1-29 (Same as: l 14:14: Normodyne, [place] 00 Trandate) Push over 2 minutes Give bolus over 2-3 minutes. Hydralazine 2018-11 No Notes: Maxwell janell 1-29 (Same as: l 14:14: Apresoline [place] 00 ) Push over 5 minutes Labetalol 2018-11 No Notes: Memori a 1-29 (Same as: l 14:14: Normodyne, [place] 00 Trandate) Push over 2 minutes Give bolus over 2-3 minutes. Hydralazine 2018-11 No Notes: Maxwell janell 1-29 (Same as: l 14:14: Apresoline [place] 00 ) Push over 5 minutes Acetaminoph 2018-11 No Notes: Max Memoria en 1-29 acetaminop l 11:02: hen = 4000 [place] 00 mg/day (4 gm/day). (Same as: Tylenol) Acetaminoph 2018-11 No Notes: Max Memoria en 1-29 acetaminop l 11:02: hen = 4000 [place] 00 mg/day (4 gm/day). (Same as: Tylenol) Acetaminoph 2018-11 No Notes: Max Memoria en 1-29 acetaminop l 11:02: hen = 4000 [place] 00 mg/day (4 gm/day). (Same as: Tylenol) Acetaminoph 2018-11 No Notes: Max Memoria en 1-29 acetaminop l 11:02: hen = 4000 [place] 00 mg/day (4 gm/day). (Same as: Tylenol) Acetaminoph 2018-11 No Notes: Max Memoria en 1-29 acetaminop l 11:02: hen = 4000 [place] 00 mg/day (4 gm/day). (Same as: Tylenol) Acetaminoph 2018-11 No Notes: Max Memoria en 1-29 acetaminop l 11:02: hen = 4000 [place] 00 mg/day (4 gm/day). (Same as: Tylenol) Acetaminoph 2018-11 No Notes: Max Memoria en - acetaminop l 11:02: hen = 4000 [place] 00 mg/day (4 gm/day). (Same as: Tylenol) Acetaminoph 2018-11 No Notes: Max Memoria en -29 acetaminop l 11:02: hen = 4000 [place] 00 mg/day (4 gm/day). (Same as: Tylenol) Acetaminoph 2018-11 No Notes: Max Memoria en - acetaminop l 11:02: hen = 4000 [place] 00 mg/day (4 gm/day). (Same as: Tylenol) Acetaminoph 2018-11 No Notes: Max Memoria en - acetaminop l 11:02: hen = 4000 [place] 00 mg/day (4 gm/day). (Same as: Tylenol) Acetaminoph 2018-11 No Notes: Max Memoria en - acetaminop l 11:02: hen = 4000 [place] 00 mg/day (4 gm/day). (Same as: Tylenol) Acetaminoph 2018-11 No Notes: Max Memoria en 12-23 acetaminop l 11:02: hen = 4000 [place] 00 mg/day (4 gm/day). (Same as: Tylenol) Insulin 2018-11 No Notes: Memoria regular 100 - (Same as: l unit + 10:20: Humulin R, Linda nn Sodium 00 NovoLIN R) Chloride Roll in 0.9% palms of (titrate) hands 99 mL gently; Do not shake vigorously . WASTE: F/P - Black; E - [employer] Trash Bin Stable for 31 days at room temperatur e Expires in days from ____Date Dextrose 2018-11 No 25 gm, 50 Maxwell janell 50% Syringe 1-29 mL, Route: l (D50W) 10:20: IVP, Drug Matthew n 00 Form: INJ, Dosing Weight 64.7, kg, PRN, PRN Blood Glucose Results, Start date: 10/23/19 4:20:00 [place] [employer], Duration: 30 day, Stop date: 11/22/19 4:19:00 [place] [employer], 0 Insulin 2018-11 No Notes: Memoria regular 100 1-29 (Same as: l unit + 10:20: Humulin R, Linda nn Sodium 00 NovoLIN R) Chloride Roll in 0.9% palms of (titrate) hands 99 mL gently; Do not shake vigorously . WASTE: F/P - Black; E - [employer] Trash Bin Stable for 31 days at room temperatur e Expires in days from ____Date Dextrose 2018-11 No 25 gm, 50 Maxwell janell 50% Syringe 1-29 mL, Route: l (D50W) 10:20: IVP, Drug Matthew n 00 Form: INJ, Dosing Weight 64.7, kg, PRN, PRN Blood Glucose Results, Start date: 10/23/19 4:20:00 [place] [employer], Duration: 30 day, Stop date: 11/22/19 4:19:00 [place] [employer], 0 Insulin 2018-11 No Notes: Memoria regular 100 - (Same as: l unit + 10:20: Humulin R, Linda nn Sodium 00 NovoLIN R) Chloride Roll in 0.9% palms of (titrate) hands 99 mL gently; Do not shake vigorously . WASTE: F/P - Black; E - [employer] Trash Bin Stable for 31 days at room temperatur e Expires in days from ____Date Dextrose 2018-11 No 25 gm, 50 Maxwell janell 50% Syringe 1-29 mL, Route: l (D50W) 10:20: IVP, Drug Matthew n 00 Form: INJ, Dosing Weight 64.7, kg, PRN, PRN Blood Glucose Results, Start date: 10/23/19 4:20:00 [place] [employer], Duration: 30 day, Stop date: 11/22/19 4:19:00 [place] [employer], 0 Insulin 2018-11 No Notes: Memoria regular 100 - (Same as: l unit + 10:20: Humulin R, Linda nn Sodium 00 NovoLIN R) Chloride Roll in 0.9% palms of (titrate) hands 99 mL gently; Do not shake vigorously . WASTE: F/P - Black; E - [employer] Trash Bin Stable for 31 days at room temperatur e Expires in days from ____Date Dextrose 2018-11 No 25 gm, 50 Maxwell janell 50% Syringe 1-29 mL, Route: l (D50W) 10:20: IVP, Drug Matthew n 00 Form: INJ, Dosing Weight 64.7, kg, PRN, PRN Blood Glucose Results, Start date: 10/23/19 4:20:00 [place] [employer], Duration: 30 day, Stop date: 11/22/19 4:19:00 [place] [employer], 0 Insulin 2018-11 No Notes: Memoria regular 100 - (Same as: l unit + 10:20: Humulin R, Linda nn Sodium 00 NovoLIN R) Chloride Roll in 0.9% palms of (titrate) hands 99 mL gently; Do not shake vigorously . WASTE: F/P - Black; E - [employer] Trash Bin Stable for 31 days at room temperatur e Expires in days from ____Date Dextrose 2018-11 No 25 gm, 50 Maxwell janell 50% Syringe 1-29 mL, Route: l (D50W) 10:20: IVP, Drug Matthew n 00 Form: INJ, Dosing Weight 64.7, kg, PRN, PRN Blood Glucose Results, Start date: 10/23/19 4:20:00 [place] [employer], Duration: 30 day, Stop date: 11/22/19 4:19:00 [place] [employer], 0 Insulin 2018-11 No Notes: Memoria regular 100 12-23 (Same as: l unit + 10:20: Humulin R, Linda nn Sodium 00 NovoLIN R) Chloride Roll in 0.9% palms of (titrate) hands 99 mL gently; Do not shake vigorously . WASTE: F/P - Black; E - [employer] Trash Bin Stable for 31 days at room temperatur e Expires in days from ____Date Dextrose 2018-11 No 25 gm, 50 Maxwell janell 50% Syringe 1-29 mL, Route: l (D50W) 10:20: IVP, Drug Matthew n 00 Form: INJ, Dosing Weight 64.7, kg, PRN, PRN Blood Glucose Results, Start date: 10/23/19 4:20:00 [employer] [employer], Duration: 30 day, Stop date: 11/22/19 4:19:00 [place] [employer], 0 Insulin 2018-11 No Notes: Memoria regular 100 - (Same as: l unit + 10:20: Humulin R, Linda nn Sodium 00 NovoLIN R) Chloride Roll in 0.9% palms of (titrate) hands 99 mL gently; Do not shake vigorously . WASTE: F/P - Black; E - [employer] Trash Bin Stable for 31 days at room temperatur e Expires in days from ____Date Dextrose 2018-11 No 25 gm, 50 Maxwell janell 50% Syringe 1-29 mL, Route: l (D50W) 10:20: IVP, Drug Matthew n 00 Form: INJ, Dosing Weight 64.7, kg, PRN, PRN Blood Glucose Results, Start date: 10/23/19 4:20:00 [place] [employer], Duration: 30 day, Stop date: 11/22/19 4:19:00 [place] [employer], 0 Insulin 2018-11 No Notes: Memoria regular 100 12-23 (Same as: l unit + 10:20: Humulin R, Linda nn Sodium 00 NovoLIN R) Chloride Roll in 0.9% palms of (titrate) hands 99 mL gently; Do not shake vigorously . WASTE: F/P - Black; E - [facility] Trash Bin Stable for 31 days at room temperatur e Expires in days from ____Date Dextrose 2018-11 No 25 gm, 50 Maxwell janell 50% Syringe 1-29 mL, Route: l (D50W) 10:20: IVP, Drug Matthew n 00 Form: INJ, Dosing Weight 64.7, kg, PRN, PRN Blood Glucose Results, Start date: 10/23/19 4:20:00 [place] [employer], Duration: 30 day, Stop date: 11/22/19 4:19:00 [employer] [employer], 0 Insulin 2018-11 No Notes: Memoria regular 100 - (Same as: l unit + 10:20: Humulin R, Linda nn Sodium 00 NovoLIN R) Chloride Roll in 0.9% palms of (titrate) hands 99 mL gently; Do not shake vigorously . WASTE: F/P - Black; E - [facility] Trash Bin Stable for 31 days at room temperatur e Expires in days from ____Date Dextrose 2018-11 No 25 gm, 50 Maxwell janell 50% Syringe 1-29 mL, Route: l (D50W) 10:20: IVP, Drug Matthew n 00 Form: INJ, Dosing Weight 64.7, kg, PRN, PRN Blood Glucose Results, Start date: 10/23/19 4:20:00 [employer] [employer], Duration: 30 day, Stop date: 11/22/19 4:19:00 [employer] [employer], 0 Insulin 2018-11 No Notes: Memoria regular 100 - (Same as: l unit + 10:20: Humulin R, Linda nn Sodium 00 NovoLIN R) Chloride Roll in 0.9% palms of (titrate) hands 99 mL gently; Do not shake vigorously . WASTE: F/P - Black; E - [facility] Trash Bin Stable for 31 days at room temperatur e Expires in days from ____Date Dextrose 2018-11 No 25 gm, 50 Maxwell janell 50% Syringe 1-29 mL, Route: l (D50W) 10:20: IVP, Drug Matthew n 00 Form: INJ, Dosing Weight 64.7, kg, PRN, PRN Blood Glucose Results, Start date: 10/23/19 4:20:00 [place] [employer], Duration: 30 day, Stop date: 11/22/19 4:19:00 [place] [employer], 0 Insulin 2018-11 No Notes: Memoria regular 100 - (Same as: l unit + 10:20: Humulin R, Linda nn Sodium 00 NovoLIN R) Chloride Roll in 0.9% palms of (titrate) hands 99 mL gently; Do not shake vigorously . WASTE: F/P - Black; E - [employer] Trash Bin Stable for 31 days at room temperatur e Expires in days from ____Date Dextrose 2018-11 No 25 gm, 50 Maxwell janell 50% Syringe 1-29 mL, Route: l (D50W) 10:20: IVP, Drug Matthew n 00 Form: INJ, Dosing Weight 64.7, kg, PRN, PRN Blood Glucose Results, Start date: 10/23/19 4:20:00 [place] [employer], Duration: 30 day, Stop date: 11/22/19 4:19:00 [place] [employer], 0 Insulin 2018-11 No Notes: Memoria regular 100 1- (Same as: l unit + 10:20: Humulin R, Linda nn Sodium 00 NovoLIN R) Chloride Roll in 0.9% palms of (titrate) hands 99 mL gently; Do not shake vigorously . WASTE: F/P - Black; E - [employer] Trash Bin Stable for 31 days at room temperatur e Expires in days from ____Date Dextrose 2018-11 No 25 gm, 50 Maxwell janell 50% Syringe 1-29 mL, Route: l (D50W) 10:20: IVP, Drug Matthew n 00 Form: INJ, Dosing Weight 64.7, kg, PRN, PRN Blood Glucose Results, Start date: 10/23/19 4:20:00 [place] [employer], Duration: 30 day, Stop date: 11/22/19 4:19:00 [employer] [employer], 0 Labetalol 2018-11 No Notes: Memori a 12-23 (Same as: l 09:50: Normodyne, González 00 Trandate) Push over 2 minutes Give bolus over 2-3 minutes. Labetalol 2018-11 No Notes: Memori a - (Same as: l 09:50: Normodyne, [place] 00 Trandate) Push over 2 minutes Give bolus over 2-3 minutes. Labetalol 2018-11 No Notes: Memori a - (Same as: l 09:50: Normodyne, Gonz[place]lez 00 Trandate) Push over 2 minutes Give bolus over 2-3 minutes. Labetalol 2018-11 No Notes: Memori a - (Same as: l 09:50: Normodyne, [place] 00 Trandate) Push over 2 minutes Give bolus over 2-3 minutes. Labetalol 2018-11 No Notes: Memori a 1-29 (Same as: l 09:50: Normodyne, [place] 00 Trandate) Push over 2 minutes Give bolus over 2-3 minutes. Labetalol 2018-11 No Notes: Memori a 1-29 (Same as: l 09:50: Normodyne, [place] 00 Trandate) Push over 2 minutes Give bolus over 2-3 minutes. Labetalol 2018-11 No Notes: Memori a 1-29 (Same as: l 09:50: Normodyne, [place] 00 Trandate) Push over 2 minutes Give bolus over 2-3 minutes. Labetalol 2018-11 No Notes: Memori a 1-29 (Same as: l 09:50: Normodyne, [place] 00 Trandate) Push over 2 minutes Give bolus over 2-3 minutes. Labetalol 2018-11 No Notes: Memori a 1-29 (Same as: l 09:50: Normodyne, [place] 00 Trandate) Push over 2 minutes Give bolus over 2-3 minutes. Labetalol 2018-11 No Notes: Memori a 1-29 (Same as: l 09:50: Normodyne, [place] 00 Trandate) Push over 2 minutes Give bolus over 2-3 minutes. Labetalol 2018-11 No Notes: Memori a 1-29 (Same as: l 09:50: Normodyne, [place] 00 Trandate) Push over 2 minutes Give bolus over 2-3 minutes. Labetalol 2018-11 No Notes: Memori a 1-29 (Same as: l 09:50: Normodyne, [place] 00 Trandate) Push over 2 minutes Give bolus over 2-3 minutes. Sodium 2018-11 No 1,000 mL, Memori a Chloride 12-23 Rate: 250 l 0.9% IV 08:44: ml/hr, González 1,000 mL 00 Infuse over: 4 hr, Route: IV, Dosing Weight 64.7 kg, Total Volume: 1,000, When Finger stick blood glucose values remain ABOVE 250 mg/dL administer until BG is less than 250 mg/dL., Start date: 10/23/19 2:44:00 [place] [employer], Duration:. .. D5W 1/2NS 2018-11 No 1,000 mL, Mem oria 1,000 mL 12-23 Rate: 250 l 08:44: ml/hr, Infuse over: 4 hr, Route: IV, Dosing Weight 64.7 kg, Total Volume: 1,000, Start date: 10/23/19 2:44:00 [place] [employer], Duration: 30 day, Stop date: 11/22/19 2:43:00 [place] [employer], 1.73, m2, 0 Insulin 2018-11 No Notes: Memoria (regular) 12-23 (Same as: l Titrate IV 08:44: Humulin R, H ermann additive 00 NovoLIN R) 100 unit + Roll in Sodium palms of Chloride hands 0.9% gently; Do (titrate) not shake 99 mL vigorously . WASTE: F/P - Black; E - [employer] Trash Bin Stable for 31 days at room temperatur e Expires in days from ____Date Dextrose 2018-11 No 12.5 gm, Memor ia 50% Syringe 12-23 25 mL, l (D50W) 08:44: Route: IVP, Drug Form: INJ, Dosing Weight 64.7, kg, PRN, PRN Blood Glucose Results, Start date: 10/23/19 2:44:00 [employer] [employer], Duration: 30 day, Stop date: 11/22/19 2:43:00 [place] [employer], 0 Glucagon 2018-11 No 1 mg, Memoria 12-23 Route: IM, l 08:44: Drug form: PDR/INJ, PRN, Dosing Weight 64.7, kg, PRN Blood Glucose Results, Start date: 10/23/19 2:44:00 [employer] [employer], Duration: 30 day, Stop date: 11/22/19 2:43:00 [employer] [employer], 0 Potassium 2018-11 No Notes: Memori a Chloride 12-23 (Same as: l 08:44: KCL) Infuse no faster than 10 mEq/hr if given peripheral ly. Magnesium 2018-11 No Notes: Memori a Sulfate 12-23 WASTE: F/P l 08:44: - Sink; E - [employer] Trash [facility] potassium 2018-11 No Notes: Memori a phosphate 12-23 (Same as: l 08:44: K Phosphate. ) Do not infuse phosphorou s concurrent ly in the same line as TPN or IVF that contains calcium. For double lumen central lines, phosphorou s may be infused in a separate lumen from TPN. 1 mMol phoshate has 1.47 mEq potassium Infuse over 4 hours Sodium 2018-11 No 1,000 mL, Memori a Chloride 12-23 Rate: 250 l 0.9% IV 08:44: ml/hr, [place] 1,000 mL 00 Infuse over: 4 hr, Route: IV, Dosing Weight 64.7 kg, Total Volume: 1,000, When Finger stick blood glucose values remain ABOVE 250 mg/dL administer until BG is less than 250 mg/dL., Start date: 10/23/19 2:44:00 [employer] [employer], Duration:. .. D5W 1/2NS 2018-11 No 1,000 mL, Mem oria 1,000 mL 12-23 Rate: 250 l 08:44: ml/hr, [place] 00 Infuse over: 4 hr, Route: IV, Dosing Weight 64.7 kg, Total Volume: 1,000, Start date: 10/23/19 2:44:00 [employer] [employer], Duration: 30 day, Stop date: 11/22/19 2:43:00 [employer] [employer], 1.73, m2, 0 Insulin 2018-11 No Notes: Memoria (regular) 12-23 (Same as: l Titrate IV 08:44: Humulin R, H ermann additive 00 NovoLIN R) 100 unit + Roll in Sodium palms of Chloride hands 0.9% gently; Do (titrate) not shake 99 mL vigorously . WASTE: F/P - Black; E - [employer] Trash Bin Stable for 31 days at room temperatur e Expires in days from ____Date Dextrose 2018-11 No 12.5 gm, Memor ia 50% Syringe 12-23 25 mL, l (D50W) 08:44: Route: González 00 IVP, Drug Form: INJ, Dosing Weight 64.7, kg, PRN, PRN Blood Glucose Results, Start date: 10/23/19 2:44:00 [employer], Duration: 30 day, Stop date: 11/22/19 2:43:00 [employer] [employer], 0 Glucagon 2018-11 No 1 mg, Memoria 12-23 Route: IM, l 08:44: Drug form: González 00 PDR/INJ, PRN, Dosing Weight 64.7, kg, PRN Blood Glucose Results, Start date: 10/23/19 2:44:00 [employer] [employer], Duration: 30 day, Stop date: 11/22/19 2:43:00 [employer], 0 Potassium 2018-11 No Notes: Memori a Chloride 12-23 (Same as: l 08:44: KCL) [place] 00 Infuse no faster than 10 mEq/hr if given peripheral ly. Magnesium 2018-11 No Notes: Memori a Sulfate 12-23 WASTE: F/P l 08:44: - Sink; E [place] - [employer] Trash Bin potassium 2018-11 No Notes: Memori a phosphate 12-23 (Same as: l 08:44: K González 00 Phosphate. ) Do not infuse phosphorou s concurrent ly in the same line as TPN or IVF that contains calcium. For double lumen central lines, phosphorou s may be infused in a separate lumen from TPN. 1 mMol phoshate has 1.47 mEq potassium Infuse over 4 hours Sodium 2018-11 No 1,000 mL, Memori a Chloride 12-23 Rate: 250 l 0.9% IV 08:44: ml/hr, [place] 1,000 mL 00 Infuse over: 4 hr, Route: IV, Dosing Weight 64.7 kg, Total Volume: 1,000, When Finger stick blood glucose values remain ABOVE 250 mg/dL administer until BG is less than 250 mg/dL., Start date: 10/23/19 2:44:00 [employer] [employer], Duration:. .. D5W 1/2NS 2018-11 No 1,000 mL, Mem oria 1,000 mL 12-23 Rate: 250 l 08:44: ml/hr, [place] 00 Infuse over: 4 hr, Route: IV, Dosing Weight 64.7 kg, Total Volume: 1,000, Start date: 10/23/19 2:44:00 [employer] [employer], Duration: 30 day, Stop date: 11/22/19 2:43:00 [place] [employer], 1.73, m2, 0 Insulin 2018-11 No Notes: Memoria (regular) - (Same as: l Titrate IV 08:44: Humulin R, H ermann additive 00 NovoLIN R) 100 unit + Roll in Sodium palms of Chloride hands 0.9% gently; Do (titrate) not shake 99 mL vigorously . WASTE: F/P - Black; E - [employer] Trash Bin Stable for 31 days at room temperatur e Expires in days from ____Date Dextrose 2018-11 No 12.5 gm, Memor ia 50% Syringe 12-23 25 mL, l (D50W) 08:44: Route: González 00 IVP, Drug Form: INJ, Dosing Weight 64.7, kg, PRN, PRN Blood Glucose Results, Start date: 10/23/19 2:44:00 [employer], Duration: 30 day, Stop date: 11/22/19 2:43:00 [employer], 0 Glucagon 2018-11 No 1 mg, Memoria 12-23 Route: IM, l 08:44: Drug form: González 00 PDR/INJ, PRN, Dosing Weight 64.7, kg, PRN Blood Glucose Results, Start date: 10/23/19 2:44:00 [employer], Duration: 30 day, Stop date: 11/22/19 2:43:00 [employer], 0 Potassium 2018-11 No Notes: Memori a Chloride 12-23 (Same as: l 08:44: KCL) González 00 Infuse no faster than 10 mEq/hr if given peripheral ly. Magnesium 2018-11 No Notes: Memori a Sulfate 12-23 WASTE: F/P l 08:44: - Sink; E - [employer] Trash Bin potassium 2018-11 No Notes: Memori a phosphate 12-23 (Same as: l 08:44: K Phosphate. ) Do not infuse phosphorou s concurrent ly in the same line as TPN or IVF that contains calcium. For double lumen central lines, phosphorou s may be infused in a separate lumen from TPN. 1 mMol phoshate has 1.47 mEq potassium Infuse over 4 hours Sodium 2018-11 No 1,000 mL, Memori a Chloride 12-23 Rate: 250 l 0.9% IV 08:44: ml/hr, [place] 1,000 mL 00 Infuse over: 4 hr, Route: IV, Dosing Weight 64.7 kg, Total Volume: 1,000, When Finger stick blood glucose values remain ABOVE 250 mg/dL administer until BG is less than 250 mg/dL., Start date: 10/23/19 2:44:00 [employer], Duration:. .. D5W 1/2NS 2018-11 No 1,000 mL, Mem oria 1,000 mL 12-23 Rate: 250 l 08:44: ml/hr, Infuse over: 4 hr, Route: IV, Dosing Weight 64.7 kg, Total Volume: 1,000, Start date: 10/23/19 2:44:00 [employer] [employer], Duration: 30 day, Stop date: 11/22/19 2:43:00 [employer] [employer], 1.73, m2, 0 Insulin 2018-11 No Notes: Memoria (regular) 12-23 (Same as: l Titrate IV 08:44: Humulin R, H ermann additive 00 NovoLIN R) 100 unit + Roll in Sodium palms of Chloride hands 0.9% gently; Do (titrate) not shake 99 mL vigorously . WASTE: F/P - Black; E - [employer] Trash Bin Stable for 31 days at room temperatur e Expires in days from ____Date Dextrose 2018-11 No 12.5 gm, Memor ia 50% Syringe 12-23 25 mL, l (D50W) 08:44: Route: IVP, Drug Form: INJ, Dosing Weight 64.7, kg, PRN, PRN Blood Glucose Results, Start date: 10/23/19 2:44:00 [employer], Duration: 30 day, Stop date: 11/22/19 2:43:00 [employer] [employer], 0 Glucagon 2018-11 No 1 mg, Memoria 12-23 Route: IM, l 08:44: Drug form: PDR/INJ, PRN, Dosing Weight 64.7, kg, PRN Blood Glucose Results, Start date: 10/23/19 2:44:00 [employer], Duration: 30 day, Stop date: 11/22/19 2:43:00 [employer], 0 Potassium 2018-11 No Notes: Memori a Chloride 12-23 (Same as: l 08:44: KCL) Infuse no faster than 10 mEq/hr if given peripheral ly. Magnesium 2018-11 No Notes: Memori a Sulfate 12-23 WASTE: F/P l 08:44: - Sink; E [place] 00 - [employer] Trash Bin potassium 2018-11 No Notes: Memori a phosphate 12-23 (Same as: l 08:44: K González 00 Phosphate. ) Do not infuse phosphorou s concurrent ly in the same line as TPN or IVF that contains calcium. For double lumen central lines, phosphorou s may be infused in a separate lumen from TPN. 1 mMol phoshate has 1.47 mEq potassium Infuse over 4 hours Sodium 2018-11 No 1,000 mL, Memori a Chloride 12-23 Rate: 250 l 0.9% IV 08:44: ml/hr, [place] 1,000 mL 00 Infuse over: 4 hr, Route: IV, Dosing Weight 64.7 kg, Total Volume: 1,000, When Finger stick blood glucose values remain ABOVE 250 mg/dL administer until BG is less than 250 mg/dL., Start date: 10/23/19 2:44:00 [employer] [employer], Duration:. .. D5W 1/2NS 2018-11 No 1,000 mL, Mem oria 1,000 mL 12-23 Rate: 250 l 08:44: ml/hr, González 00 Infuse over: 4 hr, Route: IV, Dosing Weight 64.7 kg, Total Volume: 1,000, Start date: 10/23/19 2:44:00 [employer], Duration: 30 day, Stop date: 11/22/19 2:43:00 [employer] [employer], 1.73, m2, 0 Insulin 2018-11 No Notes: Memoria (regular) 12-23 (Same as: l Titrate IV 08:44: Humulin R, H ermann additive 00 NovoLIN R) 100 unit + Roll in Sodium palms of Chloride hands 0.9% gently; Do (titrate) not shake 99 mL vigorously . WASTE: F/P - Black; E - [employer] Trash Bin Stable for 31 days at room temperatur e Expires in days from ____Date Dextrose 2018-11 No 12.5 gm, Memor ia 50% Syringe 12-23 25 mL, l (D50W) 08:44: Route: [place] 00 IVP, Drug Form: INJ, Dosing Weight 64.7, kg, PRN, PRN Blood Glucose Results, Start date: 10/23/19 2:44:00 [employer], Duration: 30 day, Stop date: 11/22/19 2:43:00 [employer], 0 Glucagon 2018-11 No 1 mg, Memoria 12-23 Route: IM, l 08:44: Drug form: Gonzáelz 00 PDR/INJ, PRN, Dosing Weight 64.7, kg, PRN Blood Glucose Results, Start date: 10/23/19 2:44:00 [employer], Duration: 30 day, Stop date: 11/22/19 2:43:00 [employer], 0 Potassium 2018-11 No Notes: Memori a Chloride 12-23 (Same as: l 08:44: KCL) Gonz[place]lez 00 Infuse no faster than 10 mEq/hr if given peripheral ly. Magnesium 2018-11 No Notes: Memori a Sulfate 12-23 WASTE: F/P l 08:44: - Sink; E [place] 00 - [employer] Trash Bin potassium 2018-11 No Notes: Memori a phosphate 12-23 (Same as: l 08:44: K [place] Phosphate. ) Do not infuse phosphorou s concurrent ly in the same line as TPN or IVF that contains calcium. For double lumen central lines, phosphorou s may be infused in a separate lumen from TPN. 1 mMol phoshate has 1.47 mEq potassium Infuse over 4 hours Sodium 2018-11 No 1,000 mL, Memori a Chloride 12-23 Rate: 250 l 0.9% IV 08:44: ml/hr, González 1,000 mL 00 Infuse over: 4 hr, Route: IV, Dosing Weight 64.7 kg, Total Volume: 1,000, When Finger stick blood glucose values remain ABOVE 250 mg/dL administer until BG is less than 250 mg/dL., Start date: 10/23/19 2:44:00 [employer], Duration:. .. D5W 1/2NS 2018-11 No 1,000 mL, Mem oria 1,000 mL 12-23 Rate: 250 l 08:44: ml/hr, González 00 Infuse over: 4 hr, Route: IV, Dosing Weight 64.7 kg, Total Volume: 1,000, Start date: 10/23/19 2:44:00 [employer], Duration: 30 day, Stop date: 11/22/19 2:43:00 [employer], 1.73, m2, 0 Insulin 2018-11 No Notes: Memoria (regular) 12-23 (Same as: l Titrate IV 08:44: Humulin R, H ermann additive 00 NovoLIN R) 100 unit + Roll in Sodium palms of Chloride hands 0.9% gently; Do (titrate) not shake 99 mL vigorously . WASTE: F/P - Black; E - [employer] Trash Bin Stable for 31 days at room temperatur e Expires in days from ____Date Dextrose 2018-11 No 12.5 gm, Memor ia 50% Syringe 12-23 25 mL, l (D50W) 08:44: Route: IVP, Drug Form: INJ, Dosing Weight 64.7, kg, PRN, PRN Blood Glucose Results, Start date: 10/23/19 2:44:00 [employer] [employer], Duration: 30 day, Stop date: 11/22/19 2:43:00 [employer] [employer], 0 Glucagon 2018-11 No 1 mg, Memoria 12-23 Route: IM, l 08:44: Drug form: PDR/INJ, PRN, Dosing Weight 64.7, kg, PRN Blood Glucose Results, Start date: 10/23/19 2:44:00 [employer], Duration: 30 day, Stop date: 11/22/19 2:43:00 [employer], 0 Potassium 2018-11 No Notes: Memori a Chloride 12-23 (Same as: l 08:44: KCL) Infuse no faster than 10 mEq/hr if given peripheral ly. Magnesium 2018-11 No Notes: Memori a Sulfate 12-23 WASTE: F/P l 08:44: - Sink; E - [employer] Trash [employer] potassium 2018-11 No Notes: Memori a phosphate 12-23 (Same as: l 08:44: K Phosphate. ) Do not infuse phosphorou s concurrent ly in the same line as TPN or IVF that contains calcium. For double lumen central lines, phosphorou s may be infused in a separate lumen from TPN. 1 mMol phoshate has 1.47 mEq potassium Infuse over 4 hours Sodium 2018-11 No 1,000 mL, Memori a Chloride 12-23 Rate: 250 l 0.9% IV 08:44: ml/hr, [place] 1,000 mL 00 Infuse over: 4 hr, Route: IV, Dosing Weight 64.7 kg, Total Volume: 1,000, When Finger stick blood glucose values remain ABOVE 250 mg/dL administer until BG is less than 250 mg/dL., Start date: 10/23/19 2:44:00 [employer], Duration:. .. D5W 1/2NS 2018-11 No 1,000 mL, Mem oria 1,000 mL 12-23 Rate: 250 l 08:44: ml/hr, [place] 00 Infuse over: 4 hr, Route: IV, Dosing Weight 64.7 kg, Total Volume: 1,000, Start date: 10/23/19 2:44:00 [employer], Duration: 30 day, Stop date: 11/22/19 2:43:00 [employer], 1.73, m2, 0 Insulin 2018-11 No Notes: Memoria (regular) 12-23 (Same as: l Titrate IV 08:44: Humulin R, H ermann additive 00 NovoLIN R) 100 unit + Roll in Sodium palms of Chloride hands 0.9% gently; Do (titrate) not shake 99 mL vigorously . WASTE: F/P - Black; E - [employer]ash Bin Stable for 31 days at room temperatur e Expires in days from ____Date Dextrose 2018-11 No 12.5 gm, Memor ia 50% Syringe 12-23 25 mL, l (D50W) 08:44: Route: IVP, Drug Form: INJ, Dosing Weight 64.7, kg, PRN, PRN Blood Glucose Results, Start date: 10/23/19 2:44:00 [employer], Duration: 30 day, Stop date: 11/22/19 2:43:00 [employer] [employer], 0 Glucagon 2018-11 No 1 mg, Memoria 12-23 Route: IM, l 08:44: Drug form: PDR/INJ, PRN, Dosing Weight 64.7, kg, PRN Blood Glucose Results, Start date: 10/23/19 2:44:00 [employer], Duration: 30 day, Stop date: 11/22/19 2:43:00 [employer], 0 Potassium 2018-11 No Notes: Memori a Chloride 12-23 (Same as: l 08:44: KCL) [place] 00 Infuse no faster than 10 mEq/hr if given peripheral ly. Magnesium 2018-11 No Notes: Memori a Sulfate 12-23 WASTE: F/P l 08:44: - Sink; E [place] 00 - [employer] Trash [employer] potassium 2018-11 No Notes: Memori a phosphate 12-23 (Same as: l 08:44: K [place] 00 Phosphate. ) Do not infuse phosphorou s concurrent ly in the same line as TPN or IVF that contains calcium. For double lumen central lines, phosphorou s may be infused in a separate lumen from TPN. 1 mMol phoshate has 1.47 mEq potassium Infuse over 4 hours Sodium 2018-11 No 1,000 mL, Memori a Chloride 12-23 Rate: 250 l 0.9% IV 08:44: ml/hr, González 1,000 mL 00 Infuse over: 4 hr, Route: IV, Dosing Weight 64.7 kg, Total Volume: 1,000, When Finger stick blood glucose values remain ABOVE 250 mg/dL administer until BG is less than 250 mg/dL., Start date: 10/23/19 2:44:00 [employer], Duration:. .. D5W 1/2NS 2018-11 No 1,000 mL, Mem oria 1,000 mL 12-23 Rate: 250 l 08:44: ml/hr, [place] 00 Infuse over: 4 hr, Route: IV, Dosing Weight 64.7 kg, Total Volume: 1,000, Start date: 10/23/19 2:44:00 [employer], Duration: 30 day, Stop date: 11/22/19 2:43:00 [employer], 1.73, m2, 0 Insulin 2018-11 No Notes: Memoria (regular) 12-23 (Same as: l Titrate IV 08:44: Humulin R, H ermann additive 00 NovoLIN R) 100 unit + Roll in Sodium palms of Chloride hands 0.9% gently; Do (titrate) not shake 99 mL vigorously . WASTE: F/P - Black; E - [employer]ash [employer] Stable for 31 days at room temperatur e Expires in days from ____Date Dextrose 2018-11 No 12.5 gm, Memor ia 50% Syringe 12-23 25 mL, l (D50W) 08:44: Route: González 00 IVP, Drug Form: INJ, Dosing Weight 64.7, kg, PRN, PRN Blood Glucose Results, Start date: 10/23/19 2:44:00 [employer], Duration: 30 day, Stop date: 11/22/19 2:43:00 [employer], 0 Glucagon 2018-11 No 1 mg, Memoria 12-23 Route: IM, l 08:44: Drug form: González 00 PDR/INJ, PRN, Dosing Weight 64.7, kg, PRN Blood Glucose Results, Start date: 10/23/19 2:44:00 [employer], Duration: 30 day, Stop date: 11/22/19 2:43:00 [employer], 0 Potassium 2018-11 No Notes: Memori a Chloride - (Same as: l 08:44: KCL) González Infuse no faster than 10 mEq/hr if given peripheral ly. Magnesium 2018-11 No Notes: Memori a Sulfate 12-23 WASTE: F/P l 08:44: - Sink; E [place] 00 - [employer] Trash [employer] potassium 2018-11 No Notes: Memori a phosphate - (Same as: l 08:44: K [place] 00 Phosphate. ) Do not infuse phosphorou s concurrent ly in the same line as TPN or IVF that contains calcium. For double lumen central lines, phosphorou s may be infused in a separate lumen from TPN. 1 mMol phoshate has 1.47 mEq potassium Infuse over 4 hours Sodium 2018-11 No 1,000 mL, Memori a Chloride - Rate: 250 l 0.9% IV 08:44: ml/hr, [place] 1,000 mL 00 Infuse over: 4 hr, Route: IV, Dosing Weight 64.7 kg, Total Volume: 1,000, When Finger stick blood glucose values remain ABOVE 250 mg/dL administer until BG is less than 250 mg/dL., Start date: 10/23/19 2:44:00 [employer], Duration:. .. D5W 1/2NS 2018-11 No 1,000 mL, Mem oria 1,000 mL 12-23 Rate: 250 l 08:44: ml/hr, [place] 00 Infuse over: 4 hr, Route: IV, Dosing Weight 64.7 kg, Total Volume: 1,000, Start date: 10/23/19 2:44:00 [employer], Duration: 30 day, Stop date: 11/22/19 2:43:00 [employer] [employer], 1.73, m2, 0 Insulin 2018-11 No Notes: Memoria (regular) 12-23 (Same as: l Titrate IV 08:44: Humulin R, H ermann additive 00 NovoLIN R) 100 unit + Roll in Sodium palms of Chloride hands 0.9% gently; Do (titrate) not shake 99 mL vigorously . WASTE: F/P - Black; E - [employer]ash [facility] Stable for 31 days at room temperatur e Expires in days from ____Date Dextrose 2018-11 No 12.5 gm, Memor ia 50% Syringe 12-23 25 mL, l (D50W) 08:44: Route: González 00 IVP, Drug Form: INJ, Dosing Weight 64.7, kg, PRN, PRN Blood Glucose Results, Start date: 10/23/19 2:44:00 [employer], Duration: 30 day, Stop date: 11/22/19 2:43:00 [employer], 0 Glucagon 2018-11 No 1 mg, Memoria 12-23 Route: IM, l 08:44: Drug form: González 00 PDR/INJ, PRN, Dosing Weight 64.7, kg, PRN Blood Glucose Results, Start date: 10/23/19 2:44:00 [employer], Duration: 30 day, Stop date: 11/22/19 2:43:00 [employer], 0 Potassium 2018-11 No Notes: Memori a Chloride 12-23 (Same as: l 08:44: KCL) González 00 Infuse no faster than 10 mEq/hr if given peripheral ly. Magnesium 2018-11 No Notes: Memori a Sulfate 12-23 WASTE: F/P l 08:44: - Sink; E [place] 00 - [employer]ash [employer] Sodium 2018-11 No 1,000 mL, Memori a Chloride 12-23 Rate: 250 l 0.9% IV 08:44: ml/hr, [place] 1,000 mL 00 Infuse over: 4 hr, Route: IV, Dosing Weight 64.7 kg, Total Volume: 1,000, When Finger stick blood glucose values remain ABOVE 250 mg/dL administer until BG is less than 250 mg/dL., Start date: 10/23/19 2:44:00 [employer], Duration:. .. D5W 1/2NS 2018-11 No 1,000 mL, Mem oria 1,000 mL 12-23 Rate: 250 l 08:44: ml/hr, Infuse over: 4 hr, Route: IV, Dosing Weight 64.7 kg, Total Volume: 1,000, Start date: 10/23/19 2:44:00 [employer], Duration: 30 day, Stop date: 11/22/19 2:43:00 [employer], 1.73, m2, 0 Insulin 2018-11 No Notes: Memoria (regular) 12-23 (Same as: l Titrate IV 08:44: Humulin R, H ermann additive 00 NovoLIN R) 100 unit + Roll in Sodium palms of Chloride hands 0.9% gently; Do (titrate) not shake 99 mL vigorously . WASTE: F/P - Black; E - [employer] Trash Bin Stable for 31 days at room temperatur e Expires in days from ____Date Dextrose 2018-11 No 12.5 gm, Memor ia 50% Syringe 12-23 25 mL, l ([id number]) 08:44: Route: IVP, Drug Form: INJ, Dosing Weight 64.7, kg, PRN, PRN Blood Glucose Results, Start date: 10/23/19 2:44:00 [place] [employer], Duration: 30 day, Stop date: 11/22/19 2:43:00 [place] [employer], 0 Glucagon 2018-11 No 1 mg, Memoria 12-23 Route: IM, l 08:44: Drug form: PDR/INJ, PRN, Dosing Weight 64.7, kg, PRN Blood Glucose Results, Start date: 10/23/19 2:44:00 [place] [employer], Duration: 30 day, Stop date: 11/22/19 2:43:00 [place] [employer], 0 Potassium 2018-11 No Notes: Memori a Chloride 12-23 (Same as: l 08:44: KCL) Infuse no faster than 10 mEq/hr if given peripheral ly. Magnesium 2018-11 No Notes: Memori a Sulfate 12-23 WASTE: F/P l 08:44: - Sink; E [place] 00 - [employer] Trash Bin potassium 2018-11 No Notes: Memori a phosphate 12-23 (Same as: l 08:44: K [place] 00 Phosphate. ) Do not infuse phosphorou s concurrent ly in the same line as TPN or IVF that contains calcium. For double lumen central lines, phosphorou s may be infused in a separate lumen from TPN. 1 mMol phoshate has 1.47 mEq potassium Infuse over 4 hours potassium 2018-11 No Notes: Memori a phosphate 12-23 (Same as: l 08:44: K González 00 Phosphate. ) Do not infuse phosphorou s concurrent ly in the same line as TPN or IVF that contains calcium. For double lumen central lines, phosphorou s may be infused in a separate lumen from TPN. 1 mMol phoshate has 1.47 mEq potassium Infuse over 4 hours Sodium 2018-11 No 1,000 mL, Memori a Chloride 12-23 Rate: 250 l 0.9% IV 08:44: ml/hr, González 1,000 mL 00 Infuse over: 4 hr, Route: IV, Dosing Weight 64.7 kg, Total Volume: 1,000, When Finger stick blood glucose values remain ABOVE 250 mg/dL administer until BG is less than 250 mg/dL., Start date: 10/23/19 2:44:00 [place] [employer], Duration:. .. D5W 1/2NS 2018-11 No 1,000 mL, Mem oria 1,000 mL 12-23 Rate: 250 l 08:44: ml/hr, [place] 00 Infuse over: 4 hr, Route: IV, Dosing Weight 64.7 kg, Total Volume: 1,000, Start date: 10/23/19 2:44:00 [place] [employer], Duration: 30 day, Stop date: 11/22/19 2:43:00 [place] [employer], 1.73, m2, 0 Insulin 2018-11 No Notes: Memoria (regular) 12-23 (Same as: l Titrate IV 08:44: Humulin R, H ermann additive 00 NovoLIN R) 100 unit + Roll in Sodium palms of Chloride hands 0.9% gently; Do (titrate) not shake 99 mL vigorously . WASTE: F/P - Black; E - Municipal Trash Bin Stable for 31 days at room temperatur e Expires in days from ____Date Dextrose 2018-11 No 12.5 gm, Memor ia 50% Syringe 12-23 25 mL, l (D50W) 08:44: Route: González 00 IVP, Drug Form: INJ, Dosing Weight 64.7, kg, PRN, PRN Blood Glucose Results, Start date: 10/23/19 2:44:00 [place] [employer], Duration: 30 day, Stop date: 11/22/19 2:43:00 [place] [employer], 0 Glucagon 2018-11 No 1 mg, Memoria 12-23 Route: IM, l 08:44: Drug form: [place] 00 PDR/INJ, PRN, Dosing Weight 64.7, kg, PRN Blood Glucose Results, Start date: 10/23/19 2:44:00 [place] [employer], Duration: 30 day, Stop date: 11/22/19 2:43:00 [place] [employer], 0 Potassium 2018-11 No Notes: Memori a Chloride 12-23 (Same as: l 08:44: KCL) González 00 Infuse no faster than 10 mEq/hr if given peripheral ly. Magnesium 2018-11 No Notes: Memori a Sulfate 12-23 WASTE: F/P l 08:44: - Sink; E González 00 - Municipal Trash Bin potassium 2018-11 No Notes: Memori a phosphate 12-23 (Same as: l 08:44: K [place] 00 Phosphate. ) Do not infuse phosphorou s concurrent ly in the same line as TPN or IVF that contains calcium. For double lumen central lines, phosphorou s may be infused in a separate lumen from TPN. 1 mMol phoshate has 1.47 mEq potassium Infuse over 4 hours Sodium 2018-11 No 1,000 mL, Memori a Chloride 12-23 Rate: 250 l 0.9% IV 08:44: ml/hr, [place] 1,000 mL 00 Infuse over: 4 hr, Route: IV, Dosing Weight 64.7 kg, Total Volume: 1,000, When Finger stick blood glucose values remain ABOVE 250 mg/dL administer until BG is less than 250 mg/dL., Start date: 10/23/19 2:44:00 [place] [employer], Duration:. .. D5W /2NS 2018-11 No 1,000 mL, Mem oria 1,000 mL 12-23 Rate: 250 l 08:44: ml/hr, Infuse over: 4 hr, Route: IV, Dosing Weight 64.7 kg, Total Volume: 1,000, Start date: 10/23/19 2:44:00 [place] [employer], Duration: 30 day, Stop date: 11/22/19 2:43:00 [place] [employer], 1.73, m2, 0 Insulin 2018-11 No Notes: Memoria (regular) 12-23 (Same as: l Titrate IV 08:44: Humulin R, H ermann additive 00 NovoLIN R) 100 unit + Roll in Sodium palms of Chloride hands 0.9% gently; Do (titrate) not shake 99 mL vigorously . WASTE: F/P - Black; E - Municipal Trash Bin Stable for 31 days at room temperatur e Expires in days from ____Date Dextrose 2018-11 No 12.5 gm, Memor ia 50% Syringe 12-23 25 mL, l (D50W) 08:44: Route: IVP, Drug Form: INJ, Dosing Weight 64.7, kg, PRN, PRN Blood Glucose Results, Start date: 10/23/19 2:44:00 [place] [employer], Duration: 30 day, Stop date: 11/22/19 2:43:00 [place] [employer], 0 Glucagon 2018-11 No 1 mg, Memoria 12-23 Route: IM, l 08:44: Drug form: PDR/INJ, PRN, Dosing Weight 64.7, kg, PRN Blood Glucose Results, Start date: 10/23/19 2:44:00 [place] [employer], Duration: 30 day, Stop date: 11/22/19 2:43:00 [place] [employer], 0 Potassium 2018-11 No Notes: Memori a Chloride 12-23 (Same as: l 08:44: KCL) Infuse no faster than 10 mEq/hr if given peripheral ly. Magnesium 2018-11 No Notes: Memori a Sulfate 12-23 WASTE: F/P l 08:44: - Sink; E - Municipal Trash Bin potassium 2018-11 No Notes: Memori a phosphate 12-23 (Same as: l 08:44: K [place] 00 Phosphate. ) Do not infuse phosphorou s concurrent ly in the same line as TPN or IVF that contains calcium. For double lumen central lines, phosphorou s may be infused in a separate lumen from TPN. 1 mMol phoshate has 1.47 mEq potassium Infuse over 4 hours Nicardipine 2018-11 No Notes: Maxwell janell 12-23 Same as: l 08:39: Cardene [place] 00 Concentrat ion: (0.2 mg /1 ml ) Ondansetron 2018-11 No Notes: Maxwell janell 12-23 (Same as: l 08:39: Zofran) González 00 MEDICATION WASTE Product Size: 4 mg Product Wasted: ___ mg Saline 2018-11 No Notes: Memoria Flush 0.9% 12-23 (Same as: l 08:39: BD [place] 00 Posiflush) Nicardipine 2018-11 No Notes: Maxwell janell 12-23 Same as: l 08:39: Cardene González 00 Concentrat ion: (0.2 mg /1 ml ) Ondansetron 2018-11 No Notes: Maxwell janell 12-23 (Same as: l 08:39: Zofran) [place] 00 MEDICATION WASTE Product Size: 4 mg Product Wasted: ___ mg Saline 2018-11 No Notes: Memoria Flush 0.9% 12-23 (Same as: l 08:39: BD [place] 00 Posiflush) Nicardipine 2018-11 No Notes: Maxwell janell 12-23 Same as: l 08:39: Cardene [place] 00 Concentrat ion: (0.2 mg /1 ml ) Ondansetron 2018-11 No Notes: Maxwell janell 12-23 (Same as: l 08:39: Zofran) [place] 00 MEDICATION WASTE Product Size: 4 mg Product Wasted: ___ mg Saline 2018-11 No Notes: Memoria Flush 0.9% 12-23 (Same as: l 08:39: BD [place] 00 Posiflush) Nicardipine 2018-11 No Notes: Maxwell janell 12-23 Same as: l 08:39: Cardene González 00 Concentrat ion: (0.2 mg /1 ml ) Ondansetron 2018-11 No Notes: Maxwell janell 12-23 (Same as: l 08:39: Zofran) [place] 00 MEDICATION WASTE Product Size: 4 mg Product Wasted: ___ mg Saline 2018-11 No Notes: Memoria Flush 0.9% 12-23 (Same as: l 08:39: BD [place] 00 Posiflush) Nicardipine 2018-11 No Notes: Maxwell janell 12-23 Same as: l 08:39: Cardene González 00 Concentrat ion: (0.2 mg /1 ml ) Ondansetron 2018-11 No Notes: Maxwell janell 12-23 (Same as: l 08:39: Zofran) [place] 00 MEDICATION WASTE Product Size: 4 mg Product Wasted: ___ mg Saline 2018-11 No Notes: Memoria Flush 0.9% 12-23 (Same as: l 08:39: BD [place] 00 Posiflush) Nicardipine 2018-11 No Notes: Maxwell janell 12-23 Same as: l 08:39: Cardene [place] 00 Concentrat ion: (0.2 mg /1 ml ) Ondansetron 2018-11 No Notes: Maxwell janell 12-23 (Same as: l 08:39: Zofran) [place] 00 MEDICATION WASTE Product Size: 4 mg Product Wasted: ___ mg Saline 2018-11 No Notes: Memoria Flush 0.9% 12-23 (Same as: l 08:39: BD González 00 Posiflush) Nicardipine 2018-11 No Notes: Maxwell janell 12-23 Same as: l 08:39: Cardene [place] 00 Concentrat ion: (0.2 mg /1 ml ) Ondansetron 2018-11 No Notes: Maxwell janell 12-23 (Same as: l 08:39: Zofran) González 00 MEDICATION WASTE Product Size: 4 mg Product Wasted: ___ mg Saline 2018-11 No Notes: Memoria Flush 0.9% - (Same as: l 08:39: BD [place] 00 Posiflush) Nicardipine 2018-11 No Notes: Maxwell janell 12-23 Same as: l 08:39: Cardene [place] 00 Concentrat ion: (0.2 mg /1 ml ) Ondansetron 2018-11 No Notes: Maxwell janell 12-23 (Same as: l 08:39: Zofran) González 00 MEDICATION WASTE Product Size: 4 mg Product Wasted: ___ mg Saline 2018-11 No Notes: Memoria Flush 0.9% 12-23 (Same as: l 08:39: BD González 00 Posiflush) Nicardipine 2018-11 No Notes: Maxwell janell 12-23 Same as: l 08:39: Cardene [place] 00 Concentrat ion: (0.2 mg /1 ml ) Ondansetron 2018-11 No Notes: Maxwell janell 12-23 (Same as: l 08:39: Zofran) González 00 MEDICATION WASTE Product Size: 4 mg Product Wasted: ___ mg Saline 2018-11 No Notes: Memoria Flush 0.9% 12-23 (Same as: l 08:39: BD González 00 Posiflush) Nicardipine 2018-11 No Notes: Maxwell janell 12-23 Same as: l 08:39: Cardene [place] 00 Concentrat ion: (0.2 mg /1 ml ) Ondansetron 2018-11 No Notes: Maxwell janell 12-23 (Same as: l 08:39: Zofran) [place] 00 MEDICATION WASTE Product Size: 4 mg Product Wasted: ___ mg Saline 2018-11 No Notes: Memoria Flush 0.9% 12-23 (Same as: l 08:39: BD [place] 00 Posiflush) Nicardipine 2018-11 No Notes: Maxwell janell 12-23 Same as: l 08:39: Cardene [place] 00 Concentrat ion: (0.2 mg /1 ml ) Ondansetron 2018-11 No Notes: Maxwell janell 12-23 (Same as: l 08:39: Zofran) González 00 MEDICATION WASTE Product Size: 4 mg Product Wasted: ___ mg Saline 2018-11 No Notes: Memoria Flush 0.9% 12-23 (Same as: l 08:39: BD [place] 00 Posiflush) Nicardipine 2018-11 No Notes: Maxwell janell 12-23 Same as: l 08:39: Cardene Concentrat ion: (0.2 mg /1 ml ) Ondansetron 2018-11 No Notes: Maxwell janell 12-23 (Same as: l 08:39: Zofran) MEDICATION WASTE Product Size: 4 mg Product Wasted: ___ mg Saline 2018-11 No Notes: Memoria Flush 0.9% 12-23 (Same as: l 08:39: BD Posiflush) Hydralazine 2018-11 Yes 50 mg = 1 M emoria Hydrochlori 1-28 tab, PO, l de 50 MG 14:00: TID, # 90 Herm trini Oral Tablet 00 tab, 3 Refill(s) ferrous 2018-11 Yes 325 mg = 1 Maxwell janell sulfate 325 1-28 tab, PO, l mg oral 14:00: Daily, # Matthew n enteric 00 30 tab, 0 coated Refill(s) tablet Hydralazine 2018-11 Yes 50 mg = 1 M emoria Hydrochlori 1-28 tab, PO, l de 50 MG 14:00: TID, # 90 Herm trini Oral Tablet 00 tab, 3 Refill(s) ferrous 2018-11 Yes 325 mg = 1 Maxwell janell sulfate 325 1-28 tab, PO, l mg oral 14:00: Daily, # Matthew n enteric 00 30 tab, 0 coated Refill(s) tablet Hydralazine 2018-11 Yes 50 mg = 1 M emoria Hydrochlori 1-28 tab, PO, l de 50 MG 14:00: TID, # 90 Herm trini Oral Tablet 00 tab, 3 Refill(s) ferrous 2018-11 Yes 325 mg = 1 Maxwell janell sulfate 325 1-28 tab, PO, l mg oral 14:00: Daily, # Matthew n enteric 00 30 tab, 0 coated Refill(s) tablet Hydralazine 2018-11 Yes 50 mg = 1 M emoria Hydrochlori 1-28 tab, PO, l de 50 MG 14:00: TID, # 90 Herm trini Oral Tablet 00 tab, 3 Refill(s) ferrous 2018-11 Yes 325 mg = 1 Maxwell janell sulfate 325 1-28 tab, PO, l mg oral 14:00: Daily, # Matthew n enteric 00 30 tab, 0 coated Refill(s) tablet Hydralazine 2018-11 Yes 50 mg = 1 M emoria Hydrochlori 1-28 tab, PO, l de 50 MG 14:00: TID, # 90 Herm trini Oral Tablet 00 tab, 3 Refill(s) ferrous 2018-11 Yes 325 mg = 1 Maxwell janell sulfate 325 1-28 tab, PO, l mg oral 14:00: Daily, # Matthew n enteric 00 30 tab, 0 coated Refill(s) tablet Hydralazine 2018-11 Yes 50 mg = 1 M emoria Hydrochlori 1-28 tab, PO, l de 50 MG 14:00: TID, # 90 Herm trini Oral Tablet 00 tab, 3 Refill(s) ferrous 2018-11 Yes 325 mg = 1 Maxwell janell sulfate 325 1-28 tab, PO, l mg oral 14:00: Daily, # Matthew n enteric 00 30 tab, 0 coated Refill(s) tablet Hydralazine 2018-11 Yes 50 mg = 1 M emoria Hydrochlori 1-28 tab, PO, l de 50 MG 14:00: TID, # 90 Herm trini Oral Tablet 00 tab, 3 Refill(s) ferrous 2018-11 Yes 325 mg = 1 Maxwell janell sulfate 325 1-28 tab, PO, l mg oral 14:00: Daily, # Matthew n enteric 00 30 tab, 0 coated Refill(s) tablet Hydralazine 2018-11 Yes 50 mg = 1 M emoria Hydrochlori 1-28 tab, PO, l de 50 MG 14:00: TID, # 90 Herm trini Oral Tablet 00 tab, 3 Refill(s) ferrous 2018-11 Yes 325 mg = 1 Maxwell janell sulfate 325 1-28 tab, PO, l mg oral 14:00: Daily, # Matthew n enteric 00 30 tab, 0 coated Refill(s) tablet Hydralazine 2018-11 Yes 50 mg = 1 M emoria Hydrochlori 1-28 tab, PO, l de 50 MG 14:00: TID, # 90 Herm trini Oral Tablet 00 tab, 3 Refill(s) ferrous 2018-11 Yes 325 mg = 1 Maxwell janell sulfate 325 1-28 tab, PO, l mg oral 14:00: Daily, # Matthew n enteric 00 30 tab, 0 coated Refill(s) tablet Hydralazine 2018-11 Yes 50 mg = 1 M emoria Hydrochlori 1-28 tab, PO, l de 50 MG 14:00: TID, # 90 Herm trini Oral Tablet 00 tab, 3 Refill(s) ferrous 2018-11 Yes 325 mg = 1 Maxwell janell sulfate 325 1-28 tab, PO, l mg oral 14:00: Daily, # Matthew n enteric 00 30 tab, 0 coated Refill(s) tablet Hydralazine 2018-11 Yes 50 mg = 1 M emoria Hydrochlori 1-28 tab, PO, l de 50 MG 14:00: TID, # 90 Herm trini Oral Tablet 00 tab, 3 Refill(s) ferrous 2018-11 Yes 325 mg = 1 Maxwell janell sulfate 325 1-28 tab, PO, l mg oral 14:00: Daily, # Matthew n enteric 00 30 tab, 0 coated Refill(s) tablet Hydralazine 2018-11 Yes 50 mg = 1 M emoria Hydrochlori 1-28 tab, PO, l de 50 MG 14:00: TID, # 90 Herm trini Oral Tablet 00 tab, 3 Refill(s) ferrous 2018-11 Yes 325 mg = 1 Maxwell janell sulfate 325 1-28 tab, PO, l mg oral 14:00: Daily, # Matthew n enteric 00 30 tab, 0 coated Refill(s) tablet Vital Signs Vital Name Observation Time Observation Value Comments Source Systolic blood 2023-05-26 16:41:00 187 mm[Hg] [facility] Diastolic blood 2023-05-26 16:41:00 86 mm[Hg] [facility] Heart rate 2023-05-26 16:41:00 72 /min [facility] Oxygen saturation in 2023-05-26 16:41:00 94 /min [facility] Arterial blood by [facility] Pulse oximetry Branch Body temperature 2023-05-26 16:40:00 36.11 Ping [facility] Respiratory rate 2023-05-26 16:40:00 18 /min [facility] Body height 2023-05-26 00:23:00 162.6 cm [facility] Body weight 2023-05-24 18:05:00 66 kg [facility] BMI 2023-05-24 18:05:00 24.98 kg/m2 [facility] Systolic blood 2022-10-25 17:47:00 166 mm[Hg] [facility] Diastolic blood 2022-10-25 17:47:00 77 mm[Hg] [facility] Heart rate 2022-10-25 17:47:00 92 /min [facility] Body temperature 2022-10-25 17:47:00 36.33 Ping [facility] Respiratory rate 2022-10-25 17:47:00 20 /min [facility] Oxygen saturation in 2022-10-25 17:47:00 99 /min [facility] by [place] [facility] denae Pulse oximetry Branch Body weight 2022-10-25 01:12:00 63.4 kg [facility] BMI 2022-10-25 01:12:00 23.99 kg/m2 [facility] Body height 2022-10-19 22:02:00 162.6 cm [facility] Systolic blood 2022-04-10 21:08:00 195 mm[Hg] [facility] Diastolic blood 2022-04-10 21:08:00 97 mm[Hg] [facility] Heart rate 2022-04-10 21:08:00 80 /min [facility] Body temperature 2022-04-10 21:08:00 36.67 Ping [facility] Respiratory rate 2022-04-10 21:08:00 18 /min [facility] Oxygen saturation in 2022-04-10 21:08:00 93 /min [facility] Arterial blood by [place] [facility] Real-time denae Pulse oximetry Branch Body weight 2022-04-09 19:34:00 62 kg [facility] BMI 2022-04-09 19:34:00 23.46 kg/m2 [facility] Body height 2022-04-09 15:28:00 162.6 cm [facility] Systolic blood 2022-10-25 17:47:00 166 mm[Hg] [facility] Diastolic blood 2022-10-25 17:47:00 77 mm[Hg] Unive rsity of pressure [facility] Heart rate 2022-10-25 17:47:00 92 /min [facility] Body temperature 2022-10-25 17:47:00 36.33 Ping [facility] 2022-10-25 17:47:00 20 /min [facility] Oxygen saturation in 2022-10-25 17:47:00 99 /min [facility] Arterial blood by [facility] Pulse oximetry Branch Body weight 2022-10-25 01:12:00 63.4 kg [facility] BMI 2022-10-25 01:12:00 23.99 kg/m2 [facility] Body height 2022-10-19 22:02:00 162.6 cm [facility] Respitory Rate 2019-10-27 14:00:00 Memori al González Respitory Rate 2019-10-27 13:00:00 Memori al González Systolic (mm Hg) 2019-10-27 13:00:00 Maxwell rial [place] Diastolic (mm Hg) 2019-10-27 13:00:00 Mem orial [place] Respitory Rate 2019-10-27 12:00:00 Memori al [place] Systolic (mm Hg) 2019-10-27 12:00:00 Maxwell rial González Diastolic (mm Hg) 2019-10-27 12:00:00 Mem orial [place] Systolic (mm Hg) 2019-10-27 10:00:00 Maxwell rial [place] Diastolic (mm Hg) 2019-10-27 10:00:00 Mem orial González Height 2019-10-26 11:42:00 162.56 cm [facility] Gonz[facility]lez Height 2019-10-25 11:00:00 162.56 cm [facility] [place] Height 2019-10-24 10:55:00 162.56 [facility] Temperature Oral (F) 2019-10-23 13:57:00 100.3 F [facility] Gonz[facility]lez Weight 2019-10-23 08:43:00 [facility] BMI Calculated 2019-10-23 08:43:00 Memori al [place] Procedures Procedure Date / Time Performing Source Performed Clinician REFERRAL- REQUEST/RESPONSE 2023-08-21 Doctor Unassigned, [facility] 05:01:00 [facility] [id number] 2023-08-05 [facility] 00:00:00 [facility] [id number] 2023-08-05 [facility] [place] 00:00:00 [facility] [id number] 2023-08-05 [facility] 00:00:00 [facility] [id number] 2023-08-05 [facility] 00:00:00 [facility] [id number] 2023-08-05 [facility] 00:00:00 [facility] [id number] 2023-08-05 [facility] 00:00:[id number] 2023-08-03 [facility] 00:00:00 [facility] [id number] 2023-08-03 [facility] 00:00:00 [facility] [id number] 2023-08-01 [facility] 00:00:00 [facility] [id number] 2023-08-01 [facility] 00:00:00 [facility] [id number] 2023-07-15 [facility] 00:00:[address] 2023-07-13 [facility] 00:00:00 [facility] EXTERNAL PROVIDER RECORDS 2023-06-04 Doctor Unassigned, [facility] 05:01:00 [facility] POCT GLUCOSE (AUTOMATED) 2023-05-26 Kirk Rodriguez [facility] 15:14:00 Medical Branch POCT GLUCOSE (AUTOMATED) 2023-05-26 Kirk Rodriguez [facility] 02:01:00 [facility] POCT GLUCOSE (AUTOMATED) 2023-05-25 Kirk Rodriguez [facility] 22:06:00 [facility] POCT GLUCOSE (AUTOMATED) 2023-05-25 Kirk Rodriguez [facility] 17:05:00 [facility] POCT GLUCOSE (AUTOMATED) 2023-05-25 Kirk Rodriguez [facility] 15:37:00 [facility] PHOSPHORUS 2023-05-25 Reisler, [facility] [place] 07:40:00 [facility] MAGNESIUM 2023-05-25 Bibiana [facility] [place] 07:40:00 [facility] BASIC METABOLIC PANEL (NA, K, 2023-05-25 Francia Mccarty [facility] CL, CO2, GLUCOSE, BUN, 07:40:00 [facility] CREATININE, [place]) PHENYTOIN FREE 2023-05-25 Bibiana [facility] [place] 07:40:00 Medical Branch CBC WITH DIFF 2023-05-25 Bibiana [facility] [place] 07:40:00 [facility] POCT GLUCOSE (AUTOMATED) 2023-05-25 Kirk Rodriguez [facility] 01:27:00 Medical Branch POCT GLUCOSE (AUTOMATED) 2023-05-25 Kirk Rodriguez [facility] 01:11:00 Medical Branch POCT GLUCOSE (AUTOMATED) 2023-05-24 Kirk Rodriguez [facility] 22:11:[address] [facility] BASIC METABOLIC PANEL (NA, K, 2023-05-24 Arnav Pineda [facility] CL, CO2, GLUCOSE, BUN, 05:10:00 [facility] CREATININE, CA) PHENYTOIN FREE 2023-05-24 Arnav Pineda [facility] ex 05:10:00 [facility] EXTRA TUBE LAV 2023-05-24 Kirk Rodriguez [facility] 05:10:00 [facility] EXTRA TUBE LT. GREEN 2023-05-24 Kirk Rodriguez [facility] 05:10:00 Medical Branch POCT GLUCOSE (AUTOMATED) 2023-05-24 Kirk Rodriguez [facility] 02:11:00 Medical Branch POCT GLUCOSE (AUTOMATED) 2023-05-23 Kirk Rodriguez [facility] 22:26:00 Medical Branch MR BRAIN W WO CONTRAST 2023-05-23 [facility] 21:07:00 Medical Branch HB ECG ROUTINE & RHYTHM STRIP 2023-05-23 Francia Mccarty [facility] 17:04:19 Medical Branch POCT GLUCOSE (AUTOMATED) 2023-05-23 Kirk Rodriguez [facility] 17:00:00 Medical Branch POCT GLUCOSE (AUTOMATED) 2023-05-23 Kirk Rodriguez [facility] 13:19:00 Medical Branch LACTIC ACID WHOLE BLOOD 2023-05-23 Francia Mccarty [facility] 12:48:00 Medical Branch LACTATE DEHYDROGENASE 2023-05-23 Francia Mccarty [facility] 12:38:00 Medical Branch TROPONIN I 2023-05-23 [facility] 12:38:00 [facility] MAGNESIUM [facility]23[facility]05-[facility]:58[facility] TROPONIN I [facility]23[facility]05-[facility] 09:58[facility] BASIC METABOLIC PANEL (NA, K, 2023-05-23 Jolanta [facility] CL, CO2, GLUCOSE, BUN, 09:58:00 [facility] CREATININE, [place]) CBC WITH DIFF 2023-05-23 [facility] 09:58:00 Medical Branch POCT GLUCOSE (AUTOMATED) 2023-05-23 Kirk Rodriguez [facility] 01:18:00 Medical Branch POCT GLUCOSE (AUTOMATED) 2023-05-22 Kirk Rodriguez [facility] 21:03:00 Medical Branch HEPATITIS B SURFACE ANTIBODY 2023-05-22 Keanu Barrett [facility] 19:24:00 [facility] HEPATITIS B SURFACE ANTIGEN 2023-05-22 Keanu Barrett [facility] 19:24:00 [facility] TROPONIN I 2023-05-22 [facility] 16:32:00 Medical Branch POCT GLUCOSE (AUTOMATED) 2023-05-22 Kirk Rodriguez [facility] 16:30:00 Medical Branch TRANSTHORACIC ECHO (TTE) 2023-05-22 Cody Wilson [facility] COMPLETE 13:01:31 [facility] POCT GLUCOSE (AUTOMATED) 2023-05-22 Kirk Rodriguez [facility] 12:48:00 Medical Branch BLOOD CULTURE SCREEN 2023-05-22 [facility] 08:58:00 [facility] PHOSPHORUS 2023-05-22 [facility] 08:58:00 [facility] MAGNESIUM 2023-05-22 [facility] 08:58:00 [facility] TROPONIN I 2023-05-22 [facility] 08:58[facility] [facility] THYROID STIMULATING HORMONE 2023-05-22 Hailey Patiño [facility] 08:58:00 [facility] BASIC METABOLIC PANEL (NA, K, 2023-05-22 Koko Platt, [facility] CL, CO2, GLUCOSE, BUN, 08:58:00 [facility] [place] CREATININE, [place]) CBC WITHOUT DIFF 2023-05-22 [facility] 08:58:00 [facility] TROPONIN I 2023-05-22 David [facility] ex 03:36:00 [facility] XR KUB 2023-05-22 Andrews [facility] xa 03:31:00 [facility] POCT GLUCOSE (AUTOMATED) 2023-05-22 Kirk Rodriguez [facility] 02:28:[address] [facility] CT ANGIOGRAM HEAD 2023-05-22 [facility] 02:09:[address] [facility] [address] HEAD WO CONTRAST 2023-05-22 Hailey Patiño [facility] 02:09:[address] [facility] [address] ANGIOGRAM NECK 2023-05-22 [facility] 02:09:[address] [facility] [address] STROKE PERFUSION W 2023-05-22 [facility] 02:09:03 [facility] MRSA / MSSA SCREEN BY PCR, 2023-05-22 Remberto Sparrow [facility] NARES 02:09:[address] [facility] AC PANEL 20 + LACTIC ACID 2023-05-22 Fede Hernandez [facility] 01:15:[address] [facility] VITAMIN B6, PLASMA 2023-05-22 [facility] 01:11:00 [facility] PHENYTOIN FREE 2023-05-22 Jolanta [facility] xa 01:11:00 Medical Branch EXTRA TUBE LAV 2023-05-22 Kirk Rodriguez [facility] 01:11:00 Medical Branch EXTRA TUBE ORANGE 2023-05-22 Kirk Rodriguez [facility] 01:11:[address] [facility] VITAMIN B1 (THIAMINE), WHOLE 2023-05-22 [facility] BLOOD 01:11:00 [facility] XR CHEST 1 VW 2023-05-21 [facility] HB ECG ROUTINE & RHYTHM STRIP 2023-05-21 [facility] 23:22:56 [facility] PHOSPHORUS 2023-05-21 [facility] 22:34:00 [facility] CREATINE KINASE 2023-05-21 [facility] [facility] MAGNESIUM 2023-05-21 [facility] 22:34:00 [facility] AMMONIA, PLASMA 2023-05-21 [facility] 22:34:00 [facility] VITAMIN B12, LEVEL 2023-05-21 [facility] 22:34:00 [facility] FOLATE 2023-05-21 [facility] 22:34:00 [facility] TROPONIN I 2023-05-21 [facility] 22:34[facility] [facility] HEPATIC FUNCTION PANEL 2023-05-21 Fede Hernandez [facility] ([id number]) (ALB,T.PRO,BILI 22:34:[address] [facility] T,BU/BC,ALT,AST,ALK PHOS) BASIC METABOLIC PANEL (NA, K, 2023-05-21 [facility] CL, CO2, GLUCOSE, BUN, 22:34:00 [facility] ranch CREATININE, [place]) LIPID PANEL ([id number])(TOTAL 2023-05-21 Cody Wilson [facility] CHOLESTEROL, TRIGLYCERIDES, 22:34:00 [facility] HDL) CBC WITH DIFF 2023-05-21 Hailey Patiño [facility] 22:34:00 [facility] GLYCOSYLATED HEMOGLOBIN (A1C) 2023-05-21 Isiah Wilsond [facility] 22:34:00 [facility] POCT GLUCOSE(AGE >30DAYS) 2023-05-21 Hailey Patiño [facility] 22:10:00 [facility] POCT GLUCOSE (AUTOMATED) 2023-05-21 HoaCody mooyd [facility] 21:37:00 [facility] [id number] 2023-02-15 GUPKA.01 [facility] 00:00:00 [facility] [id number] 2023-02-13 GUPKA.01 [facility] 00:00:00 [facility] [id number] 2022-12-19 MOUTA [facility] 00:00:00 [facility] [id number] 2022-12-18 YOIN [facility] 00:00:00 [facility] [id number] 2022-12-17 MOUTA [facility] 00:00:00 [facility] [id number] 2022-12-14 MOUTA [facility] 00:00:00 [facility] [id number] 2022-12-12 MOUTA [facility] 00:00:00 [facility] [id number] 2022-12-10 MOUTA [facility] 00:00:00 [facility] [id number] 2022-12-07 MOUTA [facility] 00:00:00 [facility] AUTHORIZATION FOR RELEASE OF 2022-11-21 Doctor Unassigned, [facility] PHI 06:01:00 [facility] AUTHORIZATION FOR RELEASE OF 2022-11-01 Doctor Unassigned, [facility] PHI 06:01:00 [facility] AUTHORIZATION FOR RELEASE OF 2022-10-30 Doctor Unassigned, [facility] PHI 06:01:00 [facility] POCT GLUCOSE (AUTOMATED) 2022-10-25 Fede Perales [facility] 14:38:00 Medical Branch POCT GLUCOSE (AUTOMATED) 2022-10-25 Fede Perales [facility] 14:38:00 [facility] Branch POCT GLUCOSE (AUTOMATED) 2022-10-25 iDaz [facility] 10:21:00 Medical Branch POCT GLUCOSE (AUTOMATED) 2022-10-25 Perales, [facility] 10:21:00 [facility] POCT GLUCOSE (AUTOMATED) 2022-10-25 Perales, [facility] 07:04:00 [facility] POCT GLUCOSE (AUTOMATED) 2022-10-25 Perales, [facility] 07:04:00 [facility] POCT GLUCOSE (AUTOMATED) 2022-10-25 Perales, [facility] 02:10:00 [facility] POCT GLUCOSE (AUTOMATED) 2022-10-25 Perales, [facility] 02:10:00 [facility] POCT GLUCOSE (AUTOMATED) 2022-10-24 Perales, [facility] 17:47:00 [facility] POCT GLUCOSE (AUTOMATED) 2022-10-24 Perales, [facility] 17:47:00 [facility] POCT GLUCOSE (AUTOMATED) 2022-10-24 Perales, [facility] 15:30:00 Medical [facility] POCT GLUCOSE (AUTOMATED) 2022-10-24 Perales, [facility] 15:30:00 [facility] PHOSPHORUS 2022-10-[address] [facility] xas 10:49:00 [facility] BASIC METABOLIC PANEL (NA, K, 2022-10-24 Osmani [facility] CL, CO2, GLUCOSE, BUN, 10:49:00 Mar[facility]ell [facility] CREATININE, CA) MAGNESIUM 2022-10-[address] [facility] 10:49:00 [facility] CBC WITHOUT DIFF 2022-10-24 Osmani [facility] exas 10:49:00 [facility] PHOSPHORUS 2022-10-[address] [facility] 10:49:00 [facility] MAGNESIUM 2022-10-[address] [facility] 10:49:00 [facility] BASIC METABOLIC PANEL (NA, K, 2022-10-24 Cameron Keen [facility] CL, CO2, GLUCOSE, BUN, 10:49:00 [facility] CREATININE, CA) CBC WITHOUT DIFF 2022-10-24 Osmani [facility] exas 10:49:00 [facility] POCT GLUCOSE (AUTOMATED) 2022-10-24 Perales, [facility] 10:07:00 [facility] [place] POCT GLUCOSE (AUTOMATED) 2022-10-24 Perales, [facility] 10:07:00 [facility] [place] POCT GLUCOSE (AUTOMATED) 2022-10-24 Perales, [facility] 05:41:00 [facility] [place] POCT GLUCOSE (AUTOMATED) 2022-10-24 Perales, [facility] 05:41:00 [facility] [place] POCT GLUCOSE (AUTOMATED) 2022-10-24 Perales, [facility] 03:16:00 [facility] [place] POCT GLUCOSE (AUTOMATED) 2022-10-24 Perales, [facility] 03:16:00 [facility] [place] POCT GLUCOSE (AUTOMATED) 2022-10-23 Perales, [facility] 23:16:00 [facility] [place] POCT GLUCOSE (AUTOMATED) 2022-10-23 Perales, [facility] 23:16:00 [facility] [place] POCT GLUCOSE (AUTOMATED) 2022-10-23 Perales, [facility] 20:22:00 [facility] [place] POCT GLUCOSE (AUTOMATED) 2022-10-23 Perales, [facility] 20:22:00 [facility] [place] POCT GLUCOSE (AUTOMATED) 2022-10-23 Perales, [facility] 14:50:00 [facility] [place] POCT GLUCOSE (AUTOMATED) 2022-10-23 Perales, [facility] 14:50:[address] [facility] PHOSPHORUS 2022-10-[address] [facility] 13:53:00 [facility] BASIC METABOLIC PANEL (NA, K, 2022-10-23 Cameron Keen [facility] CL, CO2, GLUCOSE, BUN, 13:53:[address] [facility] ranch CREATININE, CA) MAGNESIUM 2022-10-[address] [facility] 13:53:00 [facility] CBC WITHOUT DIFF 2022-10-23 Osmani [facility] exas 13:53:00 [facility] PHOSPHORUS 2022-10-[address] [facility] 13:53:00 [facility] MAGNESIUM 2022-10-23 [facility] 13:53:00 [facility] BASIC METABOLIC PANEL (NA, K, 2022-10-23 Cameron Keen [facility] CL, CO2, GLUCOSE, BUN, 13:53:00 [facility] Silvia miranda CREATININE, CA) CBC WITHOUT DIFF 2022-10-23 Osmani [facility] ex[facility] 13:53:00 [facility] POCT GLUCOSE (AUTOMATED) 2022-10-23 Perales, [facility] 10:27:00 Medical Branch POCT GLUCOSE (AUTOMATED) 2022-10-23 Perales, [facility] 10:27:00 [facility] [place] POCT GLUCOSE (AUTOMATED) 2022-10-23 Perales, [facility] 06:01:00 [facility] [place] POCT GLUCOSE (AUTOMATED) 2022-10-23 Perales, [facility] 06:01:00 [facility] POCT GLUCOSE (AUTOMATED) 2022-10-23 Perales, [facility] 02:30:00 [facility] POCT GLUCOSE (AUTOMATED) 2022-10-23 Perales, [facility] 02:30:00 [facility] [place] POCT GLUCOSE (AUTOMATED) 2022-10-22 Perales, [facility] 23:10:00 [facility] POCT GLUCOSE (AUTOMATED) 2022-10-22 Perales, [facility] 23:10:00 [facility] POCT GLUCOSE (AUTOMATED) 2022-10-22 Perales, [facility] 18:38:00 [facility] POCT GLUCOSE (AUTOMATED) 2022-10-22 Perales, [facility] 18:38:00 [facility] POCT GLUCOSE (AUTOMATED) 2022-10-22 Perales, [facility] 13:45:00 [facility] POCT GLUCOSE (AUTOMATED) 2022-10-22 Perales, [facility] 13:45:00 [facility] PHOSPHORUS 2022-10-22 Osmani [facility] Te [place] 10:37:00 [facility] BASIC METABOLIC PANEL (NA, K, 2022-10-22 [facility], CO2, GLUCOSE, BUN, 10:37:00 [facility] CREATININE, CA) MAGNESIUM 2022-10-[address] [facility] 10:37:00 [facility] CBC WITHOUT DIFF 2022-10-22 [facility] 10:37:00 [facility] FERRITIN SERUM 2022-10-22 [facility] 10:37:[address] [facility] PHOSPHORUS 2022-10-[address] [facility] 10:37:00 [facility] MAGNESIUM 2022-10-22 [facility] 10:37:00 [facility] FERRITIN SERUM 2022-10-22 [facility] x[facility] 10:37:[address] [facility] BASIC METABOLIC PANEL (NA, K, 2022-10-22 [facility], CO2, GLUCOSE, BUN, 10:37:00 [facility] CREATININE, CA) CBC WITHOUT DIFF 2022-10-22 Osmani [facility] exas 10:37:00 [facility] POCT GLUCOSE (AUTOMATED) 2022-10-22 Diaz [facility] 10:32:[address] [facility] POCT GLUCOSE (AUTOMATED) 2022-10-22 Diaz [facility] 10:32:[address] [facility] POCT GLUCOSE (AUTOMATED) 2022-10-22 Diaz [facility] 07:10:[address] [facility] POCT GLUCOSE (AUTOMATED) 2022-10-22 Diaz [facility] 07:10:[address] [facility] POCT GLUCOSE (AUTOMATED) 2022-10-22 Diaz [facility] 03:06:[address] [facility] POCT GLUCOSE (AUTOMATED) 2022-10-22 Diaz [facility] 03:06:[address] [facility] ELECTROENCEPHALOGRAM 2022-10-22 Agnieszka [facility] 00:00:[address] [facility] ELECTROENCEPHALOGRAM 2022-10-22 Agnieszka [facility] 00:00:[address] [facility] POCT GLUCOSE (AUTOMATED) 2022-10-21 Diaz [facility] 23:04:[address] [facility] POCT GLUCOSE (AUTOMATED) 2022-10-21 Diaz [facility] 23:04:00 [facility] POCT GLUCOSE (AUTOMATED) 2022-10-21 Diaz [facility] 18:42:00 [facility] POCT GLUCOSE (AUTOMATED) 2022-10-21 Diaz [facility] 18:42:00 [facility] PHENYTOIN FREE 2022-10-21 Osmani [facility] [place] 17:17:00 [facility] BASIC METABOLIC PANEL (NA, K, 2022-10-21 [facility], CO2, GLUCOSE, BUN, 17:17:[address] [facility] ran CREATININE, CA) BASIC METABOLIC PANEL (NA, K, 2022-10-21 Cameron Keen [facility], CO2, GLUCOSE, BUN, 17:17:[address] [facility] ran CREATININE, CA) PHENYTOIN FREE 2022-10-[address] [facility] 17:17:00 [facility] POCT GLUCOSE (AUTOMATED) 2022-10-21 Diaz [facility] 14:59:00 [facility] Branch POCT GLUCOSE (AUTOMATED) 2022-10-21 [facility] 14[facility]59:00 [facility] PHOSPHORUS 2022-10-[address] [facility] [place] 12:22:00 [facility] BASIC METABOLIC PANEL (NA, K, 2022-10-21 Cameron Keen [facility] CL, CO2, GLUCOSE, BUN, 12:22:[address] [facility] ran CREATININE, CA) MAGNESIUM 2022-10-[address] [facility] 12:22:00 [facility] PHOSPHORUS 2022-10-[address] [facility] 12:22:00 [facility] MAGNESIUM 2022-10-21 Osmani, [facility] [place] 12:22:00 [facility] BASIC METABOLIC PANEL (NA, K, 2022-10-21 Cameron Keen [facility], CO2, GLUCOSE, BUN, 12:22:00 [facility] CREATININE, CA) CBC WITHOUT DIFF 2022-10-21 Osmani [facility] exas 11:33:00 [facility] CBC WITHOUT DIFF 2022-10-21 Osmani [facility] exas 11:33:00 [facility] POCT GLUCOSE (AUTOMATED) 2022-10-21 Diaz [facility] 11:32:00 [facility] POCT GLUCOSE (AUTOMATED) 2022-10-21 Diaz, [facility] 11:32:00 [facility] POCT GLUCOSE (AUTOMATED) 2022-10-21 Diaz, [facility] 06:16:00 [facility] POCT GLUCOSE (AUTOMATED) 2022-10-21 Diaz, [facility] 06:16:00 [facility] POCT GLUCOSE (AUTOMATED) 2022-10-21 Diaz, [facility] 02:59:00 [facility] POCT GLUCOSE (AUTOMATED) 2022-10-21 Diaz, [facility] 02:59:00 Medical [facility] DERMATOPATHOLOGY TISSUE EXAM 2022-10-21 Saurav Prince [facility] 00:00:00 Medical [facility] DERMATOPATHOLOGY TISSUE EXAM 2022-10-21 Saurav Prince [facility] 00:00:00 [facility] POCT GLUCOSE (AUTOMATED) 2022-10-20 Diaz [facility] 22:58:00 [facility] POCT GLUCOSE (AUTOMATED) 2022-10-20 Diaz, [facility] 22:58:[address] [facility] BASIC METABOLIC PANEL (NA, K, 2022-10-20 Cameron Keen [facility], CO2, GLUCOSE, BUN, 20:35:00 [facility] CREATININE, CA) PHOSPHORUS 2022-10-20 [facility] [place] 20:35:00 [facility] PHOSPHORUS 2022-10-20 [facility] Te [place] 20:35:00 [facility] BASIC METABOLIC PANEL (NA, K, 2022-10-20 Cameron Keen [facility] CL, CO2, GLUCOSE, BUN, 20:35:00 [facility] CREATININE, CA) POCT GLUCOSE (AUTOMATED) 2022-10-20 Diaz, [facility] 19:35:00 [facility] POCT GLUCOSE (AUTOMATED) 2022-10-20 Diaz, [facility] 19:35:00 [facility] TROPONIN I 2022-10-20 Dylon [facility] xas 18:22:00 [facility] Branch TROPONIN I 2022-10-20 [facility] x[facility] 18:22:00 [facility] BASIC METABOLIC PANEL (NA, K, 2022-10-20 Geo Vinicio [facility], CO2, GLUCOSE, BUN, 12:30:00 [facility] CREATININE, CA) MAGNESIUM 2022-10-20 [facility] [place] 12:30:00 [facility] PHOSPHORUS 2022-10-20 [facility] xas 12:30:00 [facility] Branch TROPONIN I 2022-10-20 [facility] 12:30:00 [facility] PHOSPHORUS 2022-10-20 [facility] xas 12:30:00 [facility] MAGNESIUM 2022-10-20 [facility] xas 12:30:00 [facility] TROPONIN I 2022-10-20 [facility] 12:30:00 [facility] BASIC METABOLIC PANEL (NA, K, 2022-10-20 Vinicio Guardado [facility] CL, CO2, GLUCOSE, BUN, 12:30:00 [facility] CREATININE, CA) CBC WITH DIFF 2022-10-20 [facility] xas 10:21:00 [facility] CBC WITH DIFF 2022-10-20 [facility] xas 10:21:00 [facility] POCT GLUCOSE (AUTOMATED) 2022-10-20 [facility] 10:15[facility] POCT GLUCOSE (AUTOMATED) 2022-10-20 [facility] 10:15:00 [facility] POCT GLUCOSE (AUTOMATED) 2022-10-20 [facility] 06:28:00 [facility] POCT GLUCOSE (AUTOMATED) 2022-10-20 [facility] 06:28:00 [facility] BLOOD CULTURE SCREEN 2022-10-20 [facility] 04:49:00 [facility] BLOOD CULTURE SCREEN 2022-10-20 [facility] 04:49:00 [facility] BASIC METABOLIC PANEL (NA, K, 2022-10-20 GeoLeonle [facility] CL, CO2, GLUCOSE, BUN, 04:48:00 Medical B ran CREATININE, CA) TROPONIN I 2022-10-20 [facility] 04:48:00 [facility] N-TERMINAL PRO-BNP 2022-10-20 [facility] 04:48:00 Medical [facility] EXTRA TUBE LT. GREEN 2022-10-20 [facility] 04:48:00 [facility] TROPONIN I 2022-10-20 [facility] 04:48:[address] [facility] BASIC METABOLIC PANEL (NA, K, 2022-10-20 GeoLeonle [facility] CL, CO2, GLUCOSE, BUN, 04:48:00 Medical [facility] CREATININE, CA) N-TERMINAL PRO-BNP 2022-10-20 [facility] 04:48:00 Medical [facility] EXTRA TUBE LT. GREEN 2022-10-20 [facility] 04:48:00 [facility] HB ECG ROUTINE & RHYTHM STRIP 2022-10-20 Geo Vinicio [facility] 04:10:33 Medical Branch HB ECG ROUTINE & RHYTHM STRIP 2022-10-20 [facility] 04:10:33 [facility] POCT GLUCOSE (AUTOMATED) 2022-10-20 [facility] 02:53:00 [facility] POCT GLUCOSE (AUTOMATED) 2022-10-20 [facility] 02:53:00 [facility] AC PANEL 20 + LACTIC ACID 2022-10-20 [facility] 02:07:00 [facility] AC PANEL 20 + LACTIC ACID 2022-10-20 [facility] 02:07:00 [facility] XR CHEST 1 VW 2022-10-20 [facility]:05[facility]00 [facility] XR CHEST 1 VW [facility]22[facility]10-[facility] 02:05[facility]00 [facility] VITAMIN B1 (THIAMINE), WHOLE 2022-10-20 Vinicio Guardado [facility] BLOOD 01:47:00 Medical [facility] SALICYLATE 2022-10-20 [facility] [place] 01:47:00 [facility] PHENYTOIN FREE 2022-10-20 [facility] 01:47:00 [facility] SALICYLATE 2022-10-20 [facility] 01:47:00 [facility] PHENYTOIN FREE 2022-10-20 [place] [facility] xas 01:47:00 [facility] VITAMIN B1 (THIAMINE), WHOLE 2022-10-20 Vinicio Guardado [facility] BLOOD 01:47:[address] [facility] MRSA / MSSA SCREEN BY PCR, 2022-10-20 Keanu Barrett [facility] NARES 00:53:00 [facility] MRSA / MSSA SCREEN BY PCR, 2022-10-20 Keanu Barrett [facility] 00:53:00 [facility] CBC WITH DIFF 2022-10-[address] [facility] xa 23:35:00 [facility] COMP. METABOLIC PANEL (43341) 2022-10-19 Cameron Keen [facility] 23:35:00 [facility] GLYCOSYLATED HEMOGLOBIN (A1C) 2022-10-19 Cameron Keen [facility] 23:35:00 [facility] MAGNESIUM 2022-10-[address] [facility] xa 23:35:00 [facility] PROTHROMBIN TIME / INR 2022-10-19 Cameron Keen [facility] 23:35:00 [facility] ACTIVATED PARTIAL THRMPLAS 2022-10-19 Cameron Keen [facility] BASIA 23:35:00 [facility] BLOOD CULTURE SCREEN 2022-10-19 Osmani [facility] 23:35:00 [facility] PHOSPHORUS 2022-10-19 Keanu Barrett [facility] 23:35:00 [facility] INTACT PTH CALCIUM GROUP 2022-10-19 Keanu Barrett [facility] 23:35:00 [facility] IRON PANEL 2022-10-19 Keanu Barrett [facility] 23:35:00 [facility] ETHANOL 2022-10-19 Geo [facility] xas 23:35:00 [facility] BETA HYDROXY-BUTYRATE 2022-10-19 Geo [facility] 23:35:[address] [facility] LIPID PANEL ([id number])(TOTAL 2022-10-19 [facility] CHOLESTEROL, TRIGLYCERIDES, 23:35:00 [facility] HDL) BLOOD CULTURE SCREEN 2022-10-19 Osmani [facility] 23:35:00 [facility] PHOSPHORUS 2022-10-19 Keanu Barrett [facility] 23:35:00 [facility] MAGNESIUM 2022-10-[address] [facility] 23:35:00 [facility] BETA HYDROXY-BUTYRATE 2022-10-19 Geo [facility] 23:35:[address] [facility] COMP. METABOLIC PANEL ([id number]) 2022-10-19 Cameron Keen [facility] 23:35:00 [facility] LIPID PANEL ([id number])(TOTAL 2022-10-19 [facility] CHOLESTEROL, TRIGLYCERIDES, 23:35:00 [facility] HDL) INTACT PTH CALCIUM GROUP 2022-10-19 Keanu Barrett [facility] 23:35:00 [facility] IRON PANEL 2022-10-19 Keanu Barrett [facility] 23:35:00 [facility] ETHANOL 2022-10-19 Geo [facility] 23:35:[address] [facility] CBC WITH DIFF 2022-10-[address] [facility] xa 23:35:00 [facility] GLYCOSYLATED HEMOGLOBIN (A1C) 2022-10-19 Cameron Keen [facility] 23:35:00 [facility] PROTHROMBIN TIME / INR 2022-10-19 Cameron Keen [facility] 23:35:00 [facility] ACTIVATED PARTIAL THRMPLAS 2022-10-19 Cameron Keen [facility] BASIA 23:35:00 [facility] HB ECG ROUTINE & RHYTHM STRIP 2022-10-19 Cameron Keen [facility] 22:39:55 [facility] HB ECG ROUTINE & RHYTHM STRIP 2022-10-19 [facility] 22:39:55 [facility] POCT GLUCOSE (AUTOMATED) 2022-04-10 [facility] 21:04:00 [facility] POCT GLUCOSE (AUTOMATED) 2022-04-10 [facility] 16:39:00 [facility] POCT GLUCOSE (AUTOMATED) 2022-04-10 [facility] 13:21:00 [facility] CBC WITH DIFF 2022-04-10 [facility] 09:55:00 [facility] MAGNESIUM 2022-04-10 [facility] 09:55[facility]00 [facility] TROPONIN I 2022-04-10 [facility] 09:55:[address] [facility] BASIC METABOLIC PANEL (NA, K, 2022-04-10 [facility]oris [facility], CO2, GLUCOSE, BUN, 09:55:00 [facility] CREATININE, CA) POCT GLUCOSE (AUTOMATED) 2022-04-10 [facility] 09:39:00 [facility] POCT GLUCOSE (AUTOMATED) 2022-04-10 [facility] 05:44:00 [facility] POCT GLUCOSE (AUTOMATED) 2022-04-10 [facility] 02:55:00 [facility] POCT GLUCOSE (AUTOMATED) 2022-04-09 Maddie Christianson [facility] 22:03:00 Medical Branch TROPONIN I 2022-04-09 [facility] 18:59:00 [facility] BASIC METABOLIC PANEL (NA, K, 2022-04-09 Cameron Thurman iversity [facility] CL, CO2, GLUCOSE, BUN, 18:59:00 [facility] CREATININE, CA) POCT GLUCOSE (AUTOMATED) 2022-04-09 Randy Bowman [facility] 16:56:00 Medical Branch TROPONIN I 2022-04-09 [facility] 14:42:00 [facility] POCT GLUCOSE (AUTOMATED) 2022-04-09 Gracei [facility] 13:10:00 [facility] POCT GLUCOSE (AUTOMATED) 2022-04-09 [facility] 10:17:00 [facility] HB ECG ROUTINE & RHYTHM STRIP 2022-04-09 Mily Prince [facility] 08:02:07 Medical Branch POCT GLUCOSE (AUTOMATED) 2022-04-09 [facility] 05:32:00 [facility] CBC WITH DIFF 2022-04-09 [facility] 05:22:00 [facility] PROTHROMBIN TIME / INR 2022-04-09 [facility] 05:22:00 [facility] MRSA / MSSA SCREEN BY PCR, 2022-04-09 [facility] NARES 05:22:00 Medical Branch PHOSPHORUS 2022-04-09 [facility] 05:22:00 Medical Branch CREATINE KINASE 2022-04-09 [facility] 05:22:00 [facility] MAGNESIUM 2022-04-09 [facility] 05:22:00 [facility] TROPONIN I 2022-04-09 [facility] 05:22:00 Medical [facility] HEPATIC FUNCTION PANEL 2022-04-09 [facility] ([id number]) (ALB,T.PRO,BILI 05:22:00 Medical Branch T,BU/BC,ALT,AST,ALK PHOS) BASIC METABOLIC PANEL (NA, K, 2022-04-[address] 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 2023-08-21 2023-08-21 Orders Doctor SUSANNAH 1.2.840.114 [id number] Univers 00:00:00 00:00:00 Only Unassigned, FÉLIX 350.1.13.10 ity of [place] [facility] 4.2.7.2.686 Kobi as [phone] [facility] 009 Branch 2023-07-31 2023-08-06 Inpatient EM Lachelle, [place] HCAMN TELE [id number] [facility] 18:19:00 10:42:00 06 [facility] 2023-07-31 2023-08-06 Inpatient EM Lachelle, [place] HCAMN TELE E[id number] [facility] 18:19:00 10:42:00 06 [facility] 2023-07-31 2023-07-31 Outpatient Lachelle [place] HCACL LABO [id number] [facility] 22:50:00 22:50:00 41 [facility] 2023-07-13 2023-07-16 Inpatient EM Cricket, HCACL INTE.02 [id number] [facility] 18:21:00 16:58:00 ooshan 25 [facility] 2023-06-04 2023-06-04 Orders Doctor SUSANNAH 1.2.840.114 [id number] Univers 00:00:00 00:00:00 Only Unassigned, FÉLIX 350.1.13.10 [place] [facility] 4.2.7.2.686 [place] as [phone] [facility] 009 Branch 2023-05-29 2023-05-29 Transition MODESTA Malik 1.2.840.114 [id number] Univers 00:00:00 00:00:00 of Care Angel HOFF 350.1.13.10 [place] [id number] [facility] 403 Branch 2023-05-21 2023-05-26 Inpatient X ROBERTO NCSORAYA [facility] [id number] Univers 16:13:00 16:18:00 MARIBELL barreto of [facility] 2023-05-21 2023-05-26 [facility] Cody Camara 1 .2.840.114 [id number] Univers 16:13:00 16:18:00 Encounter Kirk RodriguezY 350.1.13. 10 ity of [facility] 4.2.7.2.686 [place] [id number] [facility] 094 Branch 2023-02-11 2023-02-15 Inpatient EM Eunice, HCACL INTE.02 [id number] [facility] 23:19:00 20:01:00 Cristin 79 [facility] 2022-12-06 2022-12-20 Inpatient EM Brando, HCACL INTE [id number] [facility] 02:05:00 15:03:00 Taso 89 [facility] 2022-12-11 2022-12-11 Outpatient [facility] 00:00:00 00:00:00 [id number] 2022-11-21 2022-11-21 Orders Doctor DAVALOS 1.2.840.114 [id number] Univers 00:00:00 00:00:00 Only Unassigned, FÉLIX 350.1.13.10 it[facility] of [place] [facility] 4.2.7.2.686 Kobi as [phone] [facility] 009 Branch 2022-11-01 2022-11-01 Orders Doctor DAVALOS 1.2.840.114 [id number] Univers 00:00:00 00:00:00 Only Unassigned, FÉLIX 350.1.13.10 ity of [place] [facility] 4.2.7.2.686 [place] [phone] [place] [address] Branch 2022-10-30 2022-10-30 Orders Doctor DAVALOS 1.2.840.114 [id number] Univers 00:00:00 00:00:00 Only Unassigned, FÉLIX 350.1.13.10 ity of [place] [facility] 4.2.7.2.686 [place] [id number] [place] [address] Branch 2022-10-26 2022-10-26 Transition MODESTA Malik 1.2.840.114 [id number] Univers 00:00:00 00:00:00 of Care Angel HOFF 350.1.13.10 [place] [phone] [facility] 403 Branch 2022-10-19 2022-10-25 Inpatient U DIAZ [facility] [id number] Univers 15:38:00 15:05:00 FEDE ity of [facility] 2022-10-19 2022-10-25 [facility] Svetlana Munguia 1.2.840. 114 [id number] Univers 15:38:00 15:05:00 Encounter Fede Perales 350.1.13.10 ity of [facility] 4.2.7.2.686 [place] [phone] [facility] 094 Branch 2022-10-23 2022-10-23 Travel 1.2.840.1 1.2.658.610 [id number] [facility] 00:00:00 00:00:00 [id number] 350.1.13.10 ity of 3[place]104.2.[place]3.662643 084.8 Medica l .8 [place] 2022-10-19 2022-10-19 Travel 1.2.840.1 1.2.176.612 [id number] Univers 00:00:00 00:00:00 67970.1.1 350.1.13.10 ity of 3.104.2.[place].3.698 [place] .3.857127 084.8 Medica l .8 [place] 2022-10-04 2022-10-04 Telephone Team, [facility] 1.2.840.9 [id number] Univers 00:00:00 00:00:00 Health 30082.1.1 [place] .3.472129 Medica [place] .8 [place] 2022-08-24 2022-08-24 Outpatient MHIE BRYSON [id number] Memoria 14:45:00 14:45:00 02 laverne Claudio 2022-08-24 2022-08-24 Outpatient IE BRYSON [id number] Memoria 14:45:00 14:45:00 02 laverne Claudio 2022-07-24 2022-07-24 Outpatient MHIE MHIE [id number] Memoria 10:00:00 10:00:00 01 laverne Claudio 2022-07-24 2022-07-24 Outpatient MHIE MHIE [id number] Memoria 10:00:00 10:00:00 01 l [place] 2022-07-12 2022-07-12 Outpatient MHIE MHIE [id number] Memoria 11:00:00 11:00:00 00 laverne Claudio 2022-07-12 2022-07-12 Outpatient MHIE MHIE [id number] Memoria 11:00:00 11:00:00 00 laverne González 2022-06-11 2022-06-11 Outpatient FACUNDO_STEFANY CORONADO [facility] 744 [place] 11:40:00 11:40:00 HN 0718 [facility] 2022-04-11 2022-04-11 Transition MODESTA Malik 1.2.840.114 [id number] Univers 00:00:00 00:00:00 of Care Angel HOFF 350.1.13.10 ity [facility] 4.2.7.2.686 [facility] [phone] [facility] 403 Branch 2022-04-08 2022-04-10 Outpatient U RACHEL NCSORAYA RADHAMES [id number] Univers 23:19:00 19:55:00 SARAH BETH ity [facility] 2022-04-08 2022-04-10 [facility] Randy Bowman 1.2.840.1 14 [id number] Univers 23:19:00 19:55:00 Encounter Maddie Christianson 350.1.13.10 ity [facility] Sarah Beth [facility] 4.2.7.2.68 6 [place] [id number] [facility] 094 Branch 2021-05-20 2021-05-20 Outpatient DMG DMG [id number] [facility] 11:00:00 11:00:00 0626 Medica l Group 2020-01-13 2020-01-13 Outpatient Eduardo-Mbayo VFP [facility] [id number] [facility] 07:13:00 07:13:00 _A_AH 09462 Family Practic e 2020-01-13 2020-01-13 Outpatient Jose Guadalupe BACK [phone] [place] 07:13:00 07:13:00 _A_AH 59966 Family Practic e 2020-01-13 2020-01-13 Outpatient Jose Guadalupe BACK [phone] [facility] 07:13:00 07:13:00 _A_AH 36617 Family Practic e 2019-10-23 2019-10-27 Inpatient nullTristar [facility] [id number] Memoria 08:27:00 16:10:00 r [place] 32 l [facility] 2019-10-23 2019-10-27 Inpatient nullTristar [facility] [id number] Memoria 08:27:00 16:10:[address] 2019-10-23 2019-10-27 Outpatient Boris, [facility] [id number] 02:27:00 10:10:00 Trini Najera Results Test Description Test Time Test Comments Results Result Comments Source GLUBED 2023-08-06 08:25:00 Test Item Value Reference Range Interpretation Comme nts GLUBED (test code = GLUBED) 202 mg/dL 70-110 H [id number] 01:56:00 Test Item Value Reference Range Interpretation Comments GLUBED (test code = GLUBED) 127 mg/dL 70-110 H [id number] 01:56:00 Test Item Value Reference Range Interpretation Comments GLUBED (test code = GLUBED) 143 mg/dL 70-110 H BASIC METABOLIC [id number] 22:37:00 Test Item Value Reference Range Interpretation Comments SODIUM (test code = 134 mmol/l 134.0-147.0 N NA) POTASSIUM (test 4.2 mmol/L 3.6-5.2 N code = K) CHLORIDE (test code 93 mmol/l 98.0-107.0 L = CL) CARBON DIOXIDE 27.7 mmol/l 21.0-33.0 N (test code = CO2) ANION GAP (test 17.5 0-20 N code = GAP) GLUCOSE (test code 274 mg/dl 70.0-110.0 H = GLU) BLOOD UREA NITROGEN 43 mg/dl 7.0-18.0 H (test code = BUN) GLOMERULAR 8 mL/min The Glomerular FILTRATION RATE Filtration R ate is a (test code = GFR) calculated parameterbased on serum Creatinine, pat ient age and sex. GFR va luesless than 60 mL/min/ 1.73 square meters a re indicative ofCh ronic Kidney Disease. Values less than 15 mL/min/1.73squa re meters indicate Kidney failure. The calculation for GFR is based on the CK D-EPI (2020) calculat ion. This formulais race indifferent and is the recommended for cassidy for GFRby the Natio nal Kidney Foundati on for Adults.The GFR will not calculate if th e sex is unknown or if thepatient's ag e is <18 years. CREATININE (test 5.82 mg/dL 0.60-1.30 HH code = CREAT) ESTIMATED CREAT 9 mL/min >30 CLEARANCE (test code = ECRCL) CALCIUM (test code 8.8 mg/dl 8.0-10.5 N = CA) [id number] 21:23:00 Test Item Value Reference Range Interpretation Comments GLUBED (test code = GLUBED) 257 mg/dL 70-110 H [id number] 15:53:00 Test Item Value Reference Range Interpretation Comments GLUBED (test code = GLUBED) 344 mg/dL 70-110 H [id number] 07:33:00 Test Item Value Reference Range Interpretation Comments GLUBED (test code = GLUBED) 222 mg/dL 70-110 H BASIC METABOLIC [id number] 06:34:00 Test Item Value Reference Range Interpretation Comments SODIUM (test code = 134 mmol/l 134.0-147.0 N NA) POTASSIUM (test 5.6 mmol/L 3.6-5.2 H IS SAMPLE HE MOLYSED? NO code = K) CHLORIDE (test code 94 mmol/l 98.0-107.0 L = CL) CARBON DIOXIDE 27.2 mmol/l 21.0-33.0 N (test code = CO2) ANION GAP (test 18.4 0-20 N code = GAP) GLUCOSE (test code 122 mg/dl 70.0-110.0 H = GLU) BLOOD UREA NITROGEN 66 mg/dl 7.0-18.0 H (test code = BUN) GLOMERULAR 5 mL/min The Glomerular FILTRATION RATE Filtration R ate is a (test code = GFR) calculated parameterbased on serum Creatinine, pat ient age and sex. GFR va luesless than 60 mL/min/ 1.73 square meters a re indicative ofCh ronic Kidney Disease. Values less than 15 mL/min/1.73squa re meters indicate Kidney failure. The calculation for GFR is based on the CK D-EPI (2020) calculat ion. This formulais race indifferent and is the recommended for cassidy for GFRby the Nat nal Kidney Foundati on for Adults.The GFR will not calculate if th e sex is unknown or if thepatient's ag e is <18 years. CREATININE (test 8.82 mg/dL 0.60-1.30 HH code = CREAT) ESTIMATED CREAT 6 mL/min >30 CLEARANCE (test code = ECRCL) CALCIUM (test code 8.5 mg/dl 8.0-10.5 N = CA) [id number] 00:28:00 Test Item Value Reference Range Interpretation Comments GLUBED (test code = GLUBED) 243 mg/dL 70-110 H [id number] 20:24:00 Test Item Value Reference Range Interpretation Comments GLUBED (test code = GLUBED) 184 mg/dL 70-110 H [id number] 17:01:00 Test Item Value Reference Range Interpretation Comments GLUBED (test code = GLUBED) 430 mg/dL 70-110 H [id number] 11:10:00 Test Item Value Reference Range Interpretation Comments GLUBED (test code = GLUBED) 361 mg/dL 70-110 H [id number] 08:12:00 Test Item Value Reference Range Interpretation Comments GLUBED (test code = GLUBED) 220 mg/dL 70-110 H BASIC METABOLIC [id number] 06:39:00 Test Item Value Reference Range Interpretation Comments SODIUM (test code = 133 mmol/l 134.0-147.0 L NA) POTASSIUM (test 4.4 mmol/L 3.6-5.2 N code = K) CHLORIDE (test code 92 mmol/l 98.0-107.0 L = CL) CARBON DIOXIDE 25.5 mmol/l 21.0-33.0 N (test code = CO2) ANION GAP (test 19.9 0-20 N code = GAP) GLUCOSE (test code 312 mg/dl 70.0-110.0 H = GLU) BLOOD UREA NITROGEN 49 mg/dl 7.0-18.0 H (test code = BUN) GLOMERULAR 6 mL/min The Glomerular FILTRATION RATE Filtration R ate is a (test code = GFR) calculated parameterbased on serum Creatinine, pat ient age and sex. GFR va luesless than 60 mL/min/ 1.73 square meters a re indicative ofCh ronic Kidney Disease. Values less than 15 mL/min/1.73squa re meters indicate Kidney failure. The calculation for GFR is based on the CK D-EPI (2020) calculat ion. This formulais race indifferent and is the recommended for cassidy for GFRby the [facility] on for Adults.The GFR will not calculate if th e sex is unknown or if thepatient's ag e is <18 years. CREATININE (test 7.16 mg/dL 0.60-1.30 HH code = CREAT) ESTIMATED CREAT 7 mL/min >30 CLEARANCE (test code = ECRCL) CALCIUM (test code 8.3 mg/dl 8.0-10.5 N = CA) [id number] 06:39:00 Test Item Value Reference Range Interpretation Comments MAGNESIUM (test code = MAG) 2.2 mg/dl 1.8-2.4 N CBC W/AUTO [id number] 06:15:00 Test Item Value Reference Range Interpretation Comments WHITE BLOOD CELL (test code = 7.3 K/mm3 4.5-11.0 N WBC) RED BLOOD CELL (test code = 4.19 M/mm3 3.80-5.20 N RBC) HEMOGLOBIN (test code = HGB) 11.4 gm/dL 12.0-16.0 L HEMATOCRIT (test code = HCT) 35.8 % 36.0-48.0 L MEAN CELL VOLUME (test code = 85.4 UM3 82.0-99.0 N MCV) MEAN CELL HGB (test code = MCH) 27.2 UUG 25.5-32.5 N MEAN CELL HGB CONCETRATION 31.8 gm/dL 29.0-35.5 N (test code = MCHC) RED CELL DISTRIBUTION WIDTH 14.9 % 11.5-15.0 N (test code = RDW) RED CELL DISTRIBUTION WIDTH SD 46.4 fL 34.8-50.2 N (test code = RDW-SD) PLATELET COUNT (test code = 290 K/mm3 150-400 N PLT) MEAN PLATELET VOLUME (test code 10.1 fl 7.4-10.4 N = MPV) NEUTROPHIL % (test code = NT%) 57.0 % 49.0-76.0 N IMMATURE GRANULOCYTE % (test 0.4 % 0.0-0.4 N code = IG%) LYMPHOCYTE % (test code = LY%) 25.0 % 23.0-38.0 N MONOCYTE % (test code = MO%) 15.2 % 1.0-10.0 H EOSINOPHIL % (test code = EO%) 1.6 % 1.0-5.0 N BASOPHIL % (test code = BA%) 0.8 % 0.0-1.0 N NUCLEATED RBC % (test code = 0.0 % 0.0-0.1 N NRBC%) NEUTROPHIL # (test code = NT#) 4.2 K/mm3 2.4-6.3 N IMMATURE GRANULOCYTE # (test 0.03 x10 3/uL 0.00-0.07 N code = IG#) LYMPHOCYTE # (test code = LY#) 1.8 K/mm3 1.2-4.0 N MONOCYTE # (test code = MO#) 1.1 K/mm3 0.0-0.6 H EOSINOPHIL # (test code = EO#) 0.1 K/MM3 0.0-0.7 N BASOPHIL # (test code = BA#) 0.1 K/mm3 0.0-0.2 N NUCLEATED RBC # (test code = 0.00 X10 3uL 0.00-0.01 N NRBC#) [id number] 05:27:00 Test Item Value Reference Range Interpretation Comments GLUBED (test code = GLUBED) 278 mg/dL 70-110 H [id number] 01:25:00 Test Item Value Reference Range Interpretation Comments GLUBED (test code = GLUBED) 418 mg/dL 70-110 H [id number] 22:43:00 Test Item Value Reference Range Interpretation Comments GLUBED (test code = GLUBED) 553 mg/dL 70-110 HH [id number] 20:02:00 Test Item Value Reference Range Interpretation Comments GLUBED (test code = GLUBED) 451 mg/dL 70-110 H [id number] 16:44:00 Test Item Value Reference Range Interpretation Comments GLUBED (test code = GLUBED) 201 mg/dL 70-110 H [id number] 10:25:00 Test Item Value Reference Range Interpretation Comments GLUBED (test code = GLUBED) 327 mg/dL 70-110 H [id number] 09:09:00 Test Item Value Reference Range Interpretation Comments GLUBED (test code = GLUBED) 240 mg/dL 70-110 H THROMBOPLASTIN TIME [id number] 06:30:00 Test Item Value Reference Range Interpretation Comments THROMBOPLASTIN TIME 28.20 SECONDS 25.86-36.07 [facility] PARTIAL (test code = Therape utic Range - PTT) APTT of 48.8-80 .3 secondscorrelat es with plasma heparin concentration o f 0.2-0.4 u/mL COMPREHENSIVE METABOLIC [id number] 06:05:00 Test Item Value Reference Range Interpretation Comments SODIUM (test code = 135 mmol/l 134.0-147.0 N NA) POTASSIUM (test code 5.4 mmol/L 3.6-5.2 H IS SAMP LE HEMOLYSED? = K) YES, SLIGHT HEM OLYSIS CHLORIDE (test code 95 mmol/l 98.0-107.0 L = CL) CARBON DIOXIDE (test 24.1 mmol/l 21.0-33.0 N code = CO2) ANION GAP (test code 21.3 0-20 H = GAP) GLUCOSE (test code = 165 mg/dl 70.0-110.0 H GLU) BLOOD UREA NITROGEN 63 mg/dl 7.0-18.0 H (test code = BUN) GLOMERULAR 4 mL/min The Glomerular FILTRATION RATE Filtration R ate is a (test code = GFR) calculated parameterbased on serum Creatinin e, patient age and sex. GFR valuesless than 60 mL/min/1.73 squ are meters are garcia cative ofChronic Kidne y Disease. Values less than 15 mL/min/1.73squa re meters indicate Kidney failure. The calculation for GFR is based on the CK D-EPI (2020) calculat ion. This formulais race indifferent and is the recommended for cassidy for GFRby the N [facility] Kidney Foundati on for Adults.The GFR will not calculate i f the sex is unknown or if thepatient's ag e is <18 years. CREATININE (test 9.20 mg/dL 0.60-1.30 HH code = CREAT) ESTIMATED CREAT 5 mL/min >30 CLEARANCE (test code = ECRCL) TOTAL PROTEIN (test 7.2 GM/DL 6.0-8.1 N code = PROT) ALBUMIN (test code = 2.6 gm/dL 3.2-4.7 L ALB) CALCIUM (test code = 8.0 mg/dl 8.0-10.5 N CA) BILIRUBIN TOTAL 0.4 mg/dl 0.0-1.0 N (test code = BILT) SGOT/AST (test code 4 Units/L 15-37 L = AST) SGPT/ALT (test code 26 Units/L 12.0-78.0 N = ALT) ALKALINE PHOSPHATASE 357 Units/L 50.0-136.0 H TOTAL (test code = ALKP) [id number] 06:05:00 Test Item Value Reference Range Interpretation Comments MAGNESIUM (test code = MAG) 2.3 mg/dl 1.8-2.4 N CBC W/AUTO [id number] 05:48:00 Test Item Value Reference Range Interpretation Comments WHITE BLOOD CELL (test code = 7.1 K/mm3 4.5-11.0 N WBC) RED BLOOD CELL (test code = 4.22 M/mm3 3.80-5.20 N RBC) HEMOGLOBIN (test code = HGB) 11.3 gm/dL 12.0-16.0 L HEMATOCRIT (test code = HCT) 35.2 % 36.0-48.0 L MEAN CELL VOLUME (test code = 83.4 UM3 82.0-99.0 N MCV) MEAN CELL HGB (test code = MCH) 26.8 UUG 25.5-32.5 N MEAN CELL HGB CONCETRATION 32.1 gm/dL 29.0-35.5 N (test code = MCHC) RED CELL DISTRIBUTION WIDTH 15.5 % 11.5-15.0 H (test code = RDW) RED CELL DISTRIBUTION WIDTH SD 46.1 fL 34.8-50.2 N (test code = RDW-SD) PLATELET COUNT (test code = 298 K/mm3 150-400 N PLT) MEAN PLATELET VOLUME (test code 10.3 fl 7.4-10.4 N = MPV) NEUTROPHIL % (test code = NT%) 59.8 % 49.0-76.0 N IMMATURE GRANULOCYTE % (test 0.3 % 0.0-0.4 N code = IG%) LYMPHOCYTE % (test code = LY%) 24.1 % 23.0-38.0 N MONOCYTE % (test code = MO%) 13.6 % 1.0-10.0 H EOSINOPHIL % (test code = EO%) 1.5 % 1.0-5.0 N BASOPHIL % (test code = BA%) 0.7 % 0.0-1.0 N NUCLEATED RBC % (test code = 0.0 % 0.0-0.1 N NRBC%) NEUTROPHIL # (test code = NT#) 4.3 K/mm3 2.4-6.3 N IMMATURE GRANULOCYTE # (test 0.02 x10 3/uL 0.00-0.07 N code = IG#) LYMPHOCYTE # (test code = LY#) 1.7 K/mm3 1.2-4.0 N MONOCYTE # (test code = MO#) 1.0 K/mm3 0.0-0.6 H EOSINOPHIL # (test code = EO#) 0.1 K/MM3 0.0-0.7 N BASOPHIL # (test code = BA#) 0.1 K/mm3 0.0-0.2 N NUCLEATED RBC # (test code = 0.00 X10 3uL 0.00-0.01 N NRBC#) [id number] 01:15:00 Test Item Value Reference Range Interpretation Comments GLUBED (test code = GLUBED) 225 mg/dL 70-110 H [id number] 20:54:00 Test Item Value Reference Range Interpretation Comments GLUBED (test code = GLUBED) 341 mg/dL 70-110 H [id number] 17:59:00 Test Item Value Reference Range Interpretation Comments GLUBED (test code = GLUBED) 121 mg/dL 70-110 H [id number] 14:23:00 Test Item Value Reference Range Interpretation Comments GLUBED (test code = GLUBED) 238 mg/dL 70-110 H ACUTE HEPATITIS [id number] 10:42:00 Test Item Value Reference Range Interpretation Comments AB HEPATITIS A IGM NON REACTIVE NON REACT. Testing d one at (test code = INDEX CLEAR TONG HAN ONAL HAVMAB) [facility] [address] [place] [address] [id number] AB HEPATITIS B >1000.0 mIU/mL See_Comment Status of Immunity SURFACE (test code Anti-HBs Level = HBSAB) --- I ncon sistent with Immunity 0.0 - 9.9Consistent w ith Immunity >9.9 [Automated mess age] The system Free[employer]rie generated this result transmit vikik reference range : Immunity>9.9. T he reference range was not used to interpret this result as normal/abnormal . AG HEPATITIS B NON REACTIVE NonReactive Testing done at SURFACE (test code INDEX CLEAR [facility] = HBSAG) [facility] [address] [place] [address] [id number] [phone] AB HEPATITIS B NON REACTIVE NON REACT. Testing done at CORE IGM (test INDEX CLEAR FORTUNE RE GIONAL code = HBCMAB) [facility] [address] [place] [address] 600[address] AB HEPATITIS C NON REACTIVE NON REACT. Testing done at (test code = INDEX CLEAR FORTUNE HAN ONAL HCVAB) [facility] [address] [place] [address] 54211 AB HEPATITIS B [id number] 10:42:00 Test Item Value Reference Range Interpretation Comments AB HEPATITIS B CORE Positive Negative A Performe d At: HD (test code = HBCAB) [facility] [id number] [place], [place] [id number] paige Leach MD [phone] [id number] 09:12:00 Test Item Value Reference Range Interpretation Comments GLUBED (test code = GLUBED) 186 mg/dL 70-110 H BASIC METABOLIC [id number] 06:00:00 Test Item Value Reference Range Interpretation Comments SODIUM (test code = 133 mmol/l 134.0-147.0 L NA) POTASSIUM (test 4.8 mmol/L 3.6-5.2 N code = K) CHLORIDE (test code 93 mmol/l 98.0-107.0 L = CL) CARBON DIOXIDE 26.0 mmol/l 21.0-33.0 N (test code = CO2) ANION GAP (test 18.8 0-20 N code = GAP) GLUCOSE (test code 242 mg/dl 70.0-110.0 H = GLU) BLOOD UREA NITROGEN 40 mg/dl 7.0-18.0 H (test code = BUN) GLOMERULAR 6 mL/min The Glomerular FILTRATION RATE Filtration R ate is a (test code = GFR) calculated parameterbased on serum Creatinine, pat ient age and sex. GFR va luesless than 60 mL/min/ 1.73 square meters a re indicative ofCh ronic Kidney Disease. Values less than 15 mL/min/1.73squa re meters indicate Kidney failure. The calculation for GFR is based on the CK D-EPI (2020) calculat ion. This formulais race indifferent and is the recommended for cassidy for GFRby the Natio nal Kidney Foundati on for Adults.The GFR will not calculate if th e sex is unknown or if thepatient's ag e is <18 years. CREATININE (test 6.99 mg/dL 0.60-1.30 HH code = CREAT) ESTIMATED CREAT 7 mL/min >30 CLEARANCE (test code = ECRCL) CALCIUM (test code 8.6 mg/dl 8.0-10.5 N = CA) [id number] 05:31:00 Test Item Value Reference Range Interpretation Comments GLUBED (test code = GLUBED) 234 mg/dL 70-110 H [id number] 02:49:00 Test Item Value Reference Range Interpretation Comments GLUBED (test code = GLUBED) 468 mg/dL 70-110 H [id number] 01:32:00 Test Item Value Reference Range Interpretation Comments GLUBED (test code = GLUBED) 95 mg/dL 70-110 N [id number] 21:43:00 Test Item Value Reference Range Interpretation Comments GLUBED (test code = GLUBED) 267 mg/dL 70-110 H [id number] 12:24:00 Test Item Value Reference Range Interpretation Comments GLUBED (test code = GLUBED) 150 mg/dL 70-110 H [id number] 10:25:00 Test Item Value Reference Range Interpretation Comments GLUBED (test code = GLUBED) 146 mg/dL 70-110 H TROP-I HIGH [id number] 07:17:00 Test Item Value Reference Range Interpretation Comments TROP-I HIGH 857 ng/L 0-51 HH CAUTION: Units of the SENSITIVITY (test code curre nt TROPI-HS test = TROPIHS) methodology(ng/ L) differ from the prior test methodolog y (ng/mL) by afac tor of 1000. -------- -------- ---99th Percentile: Fem ales: 0 - 51 ng/L Males : 0 - 76 ng/LThese resul ts were obtained using [employer] [place] TnIHreagent. Re sults from different methodologies s hould not becompared to one another as daiana titative results may karrie y bymethod. BASIC METABOLIC [id number] 07:16:00 Test Item Value Reference Range Interpretation Comments SODIUM (test code = 135 mmol/l 134.0-147.0 N NA) POTASSIUM (test 3.5 mmol/L 3.6-5.2 L code = K) CHLORIDE (test code 93 mmol/l 98.0-107.0 L = CL) CARBON DIOXIDE 25.0 mmol/l 21.0-33.0 N (test code = CO2) ANION GAP (test 20.5 0-20 H code = GAP) GLUCOSE (test code 171 mg/dl 70.0-110.0 H = GLU) BLOOD UREA NITROGEN 60 mg/dl 7.0-18.0 H (test code = BUN) GLOMERULAR 4 mL/min The Glomerular FILTRATION RATE Filtration R ate is a (test code = GFR) calculated parameterbased on serum Creatinine, pat ient age and sex. GFR va luesless than 60 mL/min/ 1.73 square meters a re indicative ofCh ronic Kidney Disease. Values less than 15 mL/min/1.73squa re meters indicate Kidney failure. The calculation for GFR is based on the CK D-EPI (2020) calculat ion. This formulais race indifferent and is the recommended for cassidy for GFRby the [facility] n[facility] on for Adults.The GFR will not calculate if th e sex is unknown or if thepatient's ag e is <18 years. CREATININE (test 9.45 mg/dL 0.60-1.30 HH code = CREAT) ESTIMATED CREAT 5 mL/min >30 CLEARANCE (test code = ECRCL) CALCIUM (test code 7.4 mg/dl 8.0-10.5 L = CA) THROMBOPLASTIN TIME [id number] 07:16:00 Test Item Value Reference Range Interpretation Comments THROMBOPLASTIN TIME 41.70 SECONDS 25.86-36.07 [facility] PARTIAL (test code = Therape utic Range - PTT) APTT of 48.8-80 .3 secondscorrelat es with plasma heparin concentration o f 0.2-0.4 u/mL CBC W/AUTO [id number] 06:54:00 Test Item Value Reference Range Interpretation Comments WHITE BLOOD CELL (test code = 9.1 K/mm3 4.5-11.0 N WBC) RED BLOOD CELL (test code = 3.96 M/mm3 3.80-5.20 N RBC) HEMOGLOBIN (test code = HGB) 10.7 gm/dL 12.0-16.0 L HEMATOCRIT (test code = HCT) 32.1 % 36.0-48.0 L MEAN CELL VOLUME (test code = 81.1 UM3 82.0-99.0 L MCV) MEAN CELL HGB (test code = MCH) 27.0 UUG 25.5-32.5 N MEAN CELL HGB CONCETRATION 33.3 gm/dL 29.0-35.5 N (test code = MCHC) RED CELL DISTRIBUTION WIDTH 15.0 % 11.5-15.0 N (test code = RDW) RED CELL DISTRIBUTION WIDTH SD 43.8 fL 34.8-50.2 N (test code = RDW-SD) PLATELET COUNT (test code = 274 K/mm3 150-400 N PLT) MEAN PLATELET VOLUME (test code 10.3 fl 7.4-10.4 N = MPV) NEUTROPHIL % (test code = NT%) 59.4 % 49.0-76.0 N IMMATURE GRANULOCYTE % (test 0.3 % 0.0-0.4 N code = IG%) LYMPHOCYTE % (test code = LY%) 30.2 % 23.0-38.0 N MONOCYTE % (test code = MO%) 7.8 % 1.0-10.0 N EOSINOPHIL % (test code = EO%) 1.5 % 1.0-5.0 N BASOPHIL % (test code = BA%) 0.8 % 0.0-1.0 N NUCLEATED RBC % (test code = 0.0 % 0.0-0.1 N NRBC%) NEUTROPHIL # (test code = NT#) 5.4 K/mm3 2.4-6.3 N IMMATURE GRANULOCYTE # (test 0.03 x10 3/uL 0.00-0.07 N code = IG#) LYMPHOCYTE # (test code = LY#) 2.7 K/mm3 1.2-4.0 N MONOCYTE # (test code = MO#) 0.7 K/mm3 0.0-0.6 H EOSINOPHIL # (test code = EO#) 0.1 K/MM3 0.0-0.7 N BASOPHIL # (test code = BA#) 0.1 K/mm3 0.0-0.2 N NUCLEATED RBC # (test code = 0.00 X10 3uL 0.00-0.01 N NRBC#) [id number] 05:22:00 Test Item Value Reference Range Interpretation Comments GLUBED (test code = GLUBED) 200 mg/dL 70-110 H AB HEPATITIS A [id number] 02:55:00 Test Item Value Reference Range Interpretation Comments AB HEPATITIS A IGM (test NON REACTIVE INDEX NON REACT. code = HAVMAB) AG HEPATITIS B [id number] 02:55:00 Test Item Value Reference Range Interpretation Comments AG HEPATITIS B SURFACE NON REACTIVE INDEX NonReactive (test code = HBSAG) AB HEPATITIS B CORE [id number] 02:55:00 Test Item Value Reference Range Interpretation Comments AB HEPATITIS B CORE IGM NON REACTIVE INDEX NON REACT. (test code = HBCMAB) AB HEPATITIS [id number] 02:55:00 Test Item Value Reference Range Interpretation Comments AB HEPATITIS C (test code NON REACTIVE INDEX NON REACT. = HCVAB) [id number] 01:39:00 Test Item Value Reference Range Interpretation Comments GLUBED (test code = GLUBED) 167 mg/dL 70-110 H COVID 19 Asymptomatic IH [id number] 23:24:00 Test Item Value Reference Range Interpretation Comments COVID 19 NEGATIVE NEGATIVE Negative result s should be Asymptomatic IH AG treated a s presumptive and (test code = ifinconsistent with COVNONPUIAG) clinical signs and symptoms, or ne cessaryfor patient managem ent, should be tested with an alternativemole cular assay. Negative results do not preclude MIQK-MsY-1lfyyj tion and should not be u sed as the sole basis forp atient management deci sions. Negative result s should beconsidered in the context of a pa tient's recent exposure s,history, presence of cli nical signs and symptoms consistentwith COVID-19. TROP-I HIGH [id number] 23:02:00 Test Item Value Reference Range Interpretation Comments TROP-I HIGH 886 ng/L 0-51 HH CAUTION: Units of the SENSITIVITY (test code curre nt TROPI-HS test = TROPIHS) methodology(ng/ L) differ from the prior test methodolog y (ng/mL) by afac tor of 1000. -------- -------- ---99th Percentile: Fem ales: 0 - 51 ng/L Male s: 0 - 76 ng/LThese re sults were obtained u sing Dimension EXL TnIHreagent. Re sults from different methodologies s hould not becompared to one another as daiana titative results may karrie y bymethod. CARDIAC ENZYMES [id number] 21:40:00 Test Item Value Reference Range Interpretation Comments CREATINE KINASE (CK) 120 Units/L 21-215 N (test code = CK) TROP-I HIGH 896 ng/L 0-51 HH CAUTION: Units of the SENSITIVITY (test current TR OPI-HS test code = TROPIHS) methodology( ng/L) differ from the prior test methodolog y (ng/mL) by afac tor of 1000. ------- ------- -----99 th Percentile: Females: 0 - 51 ng/L Males: 0 - 76 ng/LThese resul ts were obtained using [employer] [place] TnIHreagent. Re sults from different methodologies s hould not becompared to one another as quantitative re sults may vary bymeth od. : 3PROTHROMBIN [id number] 21:18:00 Test Item Value Reference Range Interpretation Comments PROTHROMBIN TIME 11.5 SECONDS 9.9-12.8 N PATIENT (test code = PTP) INTERNATIONAL NORMAL 1.0 0.89-1.14 N THE INR IS TO BE USED RATIO (test code = ONLY FOR MONITORING INR) ORAL ANTICOAGULANTTH ERAPY. THE FOLLOWING A RE SUGGESTED RANGE S FROM [facility] CHEST PHYSICIANS:GARCIA CATION INR VALUEPROPHY LAXIS OF VENOUS THROM BOSIS (ORTHOPEDIC ELIA JULIANA) 2.0 - 3.0PROPHY LAXIS OF VENOUS THROM BOSIS (OTHER THAN HIG H-RISK SURGERY) 2.0 - 3.0TREATMENT OF DEEP VEIN THROMBOSIS OR PULMONARY EMBOL ISM 2.0 - 3.0PREVEN TION OF SYSTEMIC EMBOLI SM TISSUE HEART VA LVES 2.0 - 3.0 ACUTE MYOCARDIAL INFA RCTION (TO PREVENT SYS TEMIC EMBOLISM) 2.0 - 3.0 ACUTE MYOCARDIA L INFARCTION (TO PREVENT RECURRENT INFAR CT) 2.5 - 3.0 VALVULAR HEART DISEASE 2.0 - 3 .0 ATRIAL FIBRILAT ION 2.0 - 3.0BILEAFLET MECHANICAL VALV E IN AORTIC POSITION 2.0 - 3.0MECHANICAL PROSTHETIC VALV ES (HIGH RISK) 2.5 - 3.5PRESENCE OF LUPUS ANTICOAGULANT O R ANTIPHOSPHOLIPI D ANTIBODIES 2.5 - 3.5 Specimen comments: IF NOT ALREADY DONE WITHIN LAST 24 HOURSTHROMBOPLASTIN TIME [id number] 21:18:00 Test Item Value Reference Range Interpretation Comments THROMBOPLASTIN TIME 29.40 SECONDS 25.86-36.07 [facility] PARTIAL (test code = Faith utic Range - PTT) APTT of 48.8-80 .3 secondscorrelat es with plasma heparin concentration o f 0.2-0.4 u/mL Specimen comments: IF NOT ALREADY DONE WITHIN LAST 24 HOURS- XR CHEST 1 V 2023-07-31 21:01:00 [facility] : 1960 Sex: F FAX: Chelsea Larose MD [phone] [place]: St: ADM FAX: Chris Ho MD [phone] Name: CITLALY DAVIS [facility] : 1960 Age/S: 63/F [address] [facility] Unit #: [id number] Loc: [place], [place] Phys: [place] [id number] Acct: [id number] Dis Date: Status: ADM IN PHONE #: [phone] Exam Date: 07/31/20232043 FAX #: [phone] Reason: CHF EXAMS: CPT CODE: [id number] XR CHEST 1 V 04422 EXAM: - XR CHEST 1 V CLINICAL HISTORY: CHF TECHNIQUE: Single frontal view. COMPARISON: None available. LOCATION: H65 FINDINGS: Left axillary and subclavian vascular stents noted. The trachea appears normal. Thecardiac silhouette is mildly enlarged. Signs of trace vascular congestion and central pulmonary edema. No confluent airspace opacities. No pleural effusions. Visualized soft tissues and osseous structures are grossly unremarkable. IMPRESSION: Cardiomegaly with signs of minimal volume overload. at 2100 Reported and signed by: Vahe Akbar M.D. CC: Chelsea Larose MD; Chris Ho MD Technologist: JACK ARBOLEDA [facility] Date/Time/By: 07/31/2023 (2100) : By: [email or web address] PAGE 1 Signed Report FAX: Chelsea Larose MD [phone] [place]: St: ADM FAX: Chris oH MD [phone] Name: CITLALY DAVIS [facility] : 1960 Age/S: 63/F [address] [facility] Unit #: [id number] Loc: [place], [place]: [place] [id number] Acct: [id number] Dis Date: Status: ADM IN PHONE #: [phone] Exam Date: 07/31/20232043 FAX #: [phone] Reason: CHF EXAMS: CPT CODE: [id number] XR CHEST 1 V 45891 (Continued) Orig Print D/T: S: 07/31/2023 (2103) PAGE 2 S igned Report- XR CHEST 1 [id number] 21:01:00 [facility] : 1960 Sex: F FAX: Chelsea Larose MD [phone] [place]: St: DIS FAX: Chris Ho MD [phone] Name: CITLALY DAVIS [facility] : 1960 Age/S: 63/F [address] [facility] Unit #: [id number] Loc: [address] Phys: [place] [id number] Acct: [id number] Dis Date: [id number] Status: DIS IN PHONE #: [phone] Exam Date: 07/31/20232043 FAX #: [phone] Reason: CHF EXAMS: CPT CODE: [id number] XR CHEST 1 V 20165 EXAM: - XR CHEST 1 V CLINICAL HISTORY: CHF TECHNIQUE: Single frontal view. COMPARISON: None available. LOCATION: 5 FINDINGS: Left axillary and subclavian vascular stents noted. The trachea appears normal. The cardiac silhouette is mildly enlarged. Signs of trace vascular congestion and central pulmonary edema. No confluent airspace opacities. No pleural effusions. Visualized soft tissues and osseous structures are grossly unremarkable. IMPRESSION: Cardiomegaly with signs of minimal volume overload. at 2101 Reported and signed by: Emerson Bill CC: Chelsea Larose MD; Chris Ho MD Technologist: JACK ARBOLEDA [facility] Date/Time/By: 07/31/2023 (2100) : By: [email or web address] PAGE 1 Signed Report FAX: Chelsea Larose MD [phone] [place]: St: D IS FAX: Chris Ho MD [phone] Name: CITLALY DAVIS [facility] : 1960 Age/S: 63/F [address] [facility] Unit #: [id number] Loc: [address] Phys: [place] [id number] Acct: [id number] DisDate: [id number] Status: DIS IN PHONE #: [phone] Exam Date: 07/31/20232043 FAX #: [phone] Reason: CHF EXAMS: CPT CODE: [id number] XR CHEST 1 V 27156 (Continued) Orig Print D/T: S: 07/31/2023 (2103) PAGE 2 Signed [id number] 20:26:00 Test Item Value Reference Range Interpretation Comments GLUBED (test code = GLUBED) 132 mg/dL 70-110 H BASIC METABOLIC [id number] 19:49:00 Test Item Value Reference Range Interpretation Comments SODIUM (test code = 136 mmol/l 134.0-147.0 N NA) POTASSIUM (test 4.1 mmol/L 3.6-5.2 N code = K) CHLORIDE (test code 93 mmol/l 98.0-107.0 L = CL) CARBON DIOXIDE 27.3 mmol/l 21.0-33.0 N (test code = CO2) ANION GAP (test 19.8 0-20 N code = GAP) GLUCOSE (test code 131 mg/dl 70.0-110.0 H = GLU) BLOOD UREA NITROGEN 59 mg/dl 7.0-18.0 H (test code = BUN) GLOMERULAR 5 mL/min The Glomerular FILTRATION RATE Filtration R ate is a (test code = GFR) calculated parameterbased on serum Creatinine, pat ient age and sex. GFR va luesless than 60 mL/min/ 1.73 square meters a re indicative ofCh ronic Kidney Disease. Values less than 15 mL/min/1.73squa re meters indicate Kidney failure. The calculation for GFR is based on the CK D-EPI (2020) calculat ion. This formulais race indifferent and is the recommended for cassidy for GFRby the Nat nal Kidney Foundati on for Adults.The GFR will not calculate if th e sex is unknown or if thepatient's ag e is <18 years. CREATININE (test 8.37 mg/dL 0.60-1.30 HH code = CREAT) CALCIUM (test code 7.6 mg/dl 8.0-10.5 L = CA) ESTIMATED CREAT 6 mL/min >30 CLEARANCE (test code = ECRCL) TROP-I HIGH [id number] 19:49:00 Test Item Value Reference Range Interpretation Comments TROP-I HIGH 859 ng/L 0-51 HH CAUTION: Units of the SENSITIVITY (test code curre nt TROPI-HS test = TROPIHS) methodology(ng/ L) differ from the prior test methodolog y (ng/mL) by afac tor of 1000. -------- -------- ---99th Percentile: Fem ales: 0 - 51 ng/L Males : 0 - 76 ng/LThese resul ts were obtained using Dimension EXL TnIHreagent. Re sults from different methodologies s hould not becompared to one another as daiana titative results may karrie y bymethod. LIPOPROTEIN [id number] 19:49:00 Test Item Value Reference Range Interpretation Comments LIPOPROTEIN LDL (test code = LDL) 93 mg/dl 70-130 N B-TYPE NATRIURETIC [id number] 19:36:00 Test Item Value Reference Range Interpretation Comments B-TYPE NATRIURETIC PEPTIDE (test 4120 PG/ML 5-100 H code = BNP) CBC W/AUTO [id number] 19:24:00 Test Item Value Reference Range Interpretation Comments WHITE BLOOD CELL (test code = 10.2 K/mm3 4.5-11.0 N WBC) RED BLOOD CELL (test code = 3.87 M/mm3 3.80-5.20 N RBC) HEMOGLOBIN (test code = HGB) 10.7 gm/dL 12.0-16.0 L HEMATOCRIT (test code = HCT) 32.1 % 36.0-48.0 L MEAN CELL VOLUME (test code = 82.9 UM3 82.0-99.0 N MCV) MEAN CELL HGB (test code = MCH) 27.6 UUG 25.5-32.5 N MEAN CELL HGB CONCETRATION 33.3 gm/dL 29.0-35.5 N (test code = MCHC) RED CELL DISTRIBUTION WIDTH 14.7 % 11.5-15.0 N (test code = RDW) RED CELL DISTRIBUTION WIDTH SD 44.4 fL 34.8-50.2 N (test code = RDW-SD) PLATELET COUNT (test code = 272 K/mm3 150-400 N PLT) MEAN PLATELET VOLUME (test code 10.2 fl 7.4-10.4 N = MPV) NEUTROPHIL % (test code = NT%) 71.6 % 49.0-76.0 N IMMATURE GRANULOCYTE % (test 0.4 % 0.0-0.4 N code = IG%) LYMPHOCYTE % (test code = LY%) 18.4 % 23.0-38.0 L MONOCYTE % (test code = MO%) 8.8 % 1.0-10.0 N EOSINOPHIL % (test code = EO%) 0.4 % 1.0-5.0 L BASOPHIL % (test code = BA%) 0.4 % 0.0-1.0 N NUCLEATED RBC % (test code = 0.0 % 0.0-0.1 N NRBC%) NEUTROPHIL # (test code = NT#) 7.3 K/mm3 2.4-6.3 H IMMATURE GRANULOCYTE # (test 0.04 x10 3/uL 0.00-0.07 N code = IG#) LYMPHOCYTE # (test code = LY#) 1.9 K/mm3 1.2-4.0 N MONOCYTE # (test code = MO#) 0.9 K/mm3 0.0-0.6 H EOSINOPHIL # (test code = EO#) 0.0 K/MM3 0.0-0.7 N BASOPHIL # (test code = BA#) 0.0 K/mm3 0.0-0.2 N NUCLEATED RBC # (test code = 0.00 X10 3uL 0.00-0.01 N NRBC#) BETA [id number] 17:09:00 Test Item Value Reference Range Interpretation Comments BETA HYDROXYBUTYRATE 2.8 mg/dL See_Comment Referen ce Range:All (test code = BETHYD) Ages (f asting): 0.2 - 2.8Performed At: [facility] [address] [place] [address] [id number] Elias MD Ph:[phone] [Automated mess age] The system Free[employer] generated this result transmit vikki reference range : (). The reference r henry was not used to interpret this result as normal/abnormal . 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 [facility] GLUCOSE [id number] 09:34:00 Test Item Value Reference Range Interpretation Comments GLUCOSE BEDSIDE (test 248 MG/DL 70-110 H Perfor med by certified code = GLUBED) 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 [facility] COMPREHENSIVE METABOLIC [id number] 07:38:00 Test Item Value Reference Range Interpretation Comments SODIUM (test code = 135 mEq/L 134-147 N NA) POTASSIUM (test 5.0 mEq/L 3.4-5.0 N code = K) CHLORIDE (test code 99 mEq/L 100-108 L = CL) CARBON DIOXIDE 24 mEq/l 21-33 N (test code = CO2) ANION GAP (test 17 0-20 N code = GAP) GLUCOSE (test code 426 mg/dL 70-110 H = GLU) BLOOD UREA NITROGEN 25 mg/dL 7-18 H (test code = BUN) GLOMERULAR 7.9 80-90 L The Glomerular FILTRATION RATE Filtration R ate is a (test code = GFR) calculated parameterbased on serum Creatinin e, patient age and sex. GFR valuesless than 60 mL/min/1.73 squ are meters are garcia cative ofChronic Kidne y Disease. Values less than 15 mL/min/1.73squa re meters indicate Kidney failure. The calculation for GFR is based on the CK D-EPI (2020) calculat ion. This formulais race indifferent and is the recommended for cassidy for GFRby the [facility] on for Adults.The GFR will not calculate i f the sex is unknown or if thepatient's ag e is <18 years. CREATININE (test 5.7 mg/dL 0.6-1.3 H code = CREAT) TOTAL PROTEIN (test 6.8 g/dL 6.4-8.2 N code = PROT) ALBUMIN (test code 3.10 g/dL 3.4-5.0 L = ALB) CALCIUM (test code 7.9 mg/dL 8.0-10.5 L = CA) BILIRUBIN TOTAL < 0.20 mg/dL 0.0-1.0 N (test code = BILT) SGOT/AST (test code 17 IUnit/L 15-37 N = AST) SGPT/ALT (test code 14 IUnit/L 30-65 L = ALT) ALKALINE 343 IUnit/L 20-125 H PHOSPHATASE TOTAL (test code = ALKP) [id number] 07:38:00 Test Item Value Reference Range Interpretation Comments PHOSPHOROUS (test code = PHOS) 6.2 MG/DL 2.5-4.9 H [id number] 07:38:00 Test Item Value Reference Range Interpretation Comments MAGNESIUM (test code = MAG) 2.00 mg/dL 1.80-2.40 N CALCIUM [id number] 07:38:00 Test Item Value Reference Range Interpretation Comments CALCIUM IONIZED (test code = KEISHA) 0.93 MMOL/L 1.09-1.30 L GLUCOSE [id number] 07:00:00 Test Item Value Reference Range Interpretation Comments GLUCOSE BEDSIDE (test 406 MG/DL 70-110 H Perfor med by certified code = GLUBED) 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 [facility] GLUCOSE [id number] 21:15:00 Test Item Value Reference Range Interpretation Comments GLUCOSE BEDSIDE (test 347 MG/DL 70-110 H Perfor med by certified code = GLUBED) 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 [facility] GLUCOSE [id number] 16:16:00 Test Item Value Reference Range Interpretation Comments GLUCOSE BEDSIDE (test 101 MG/DL 70-110 N Perfor med by certified code = GLUBED) 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 [facility] GLUCOSE [id number] 16:07:00 Test Item Value Reference Range Interpretation Comments GLUCOSE BEDSIDE (test 408 MG/DL 70-110 H Perfor med by certified code = GLUBED) 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 [facility] COMPREHENSIVE METABOLIC [id number] 07:16:00 Test Item Value Reference Range Interpretation Comments SODIUM (test code = 138 mEq/L 134-147 N NA) POTASSIUM (test code 4.4 mEq/L 3.4-5.0 N = K) CHLORIDE (test code 98 mEq/L 100-108 L = CL) CARBON DIOXIDE (test 25 mEq/l 21-33 N code = CO2) ANION GAP (test code 19 0-20 N = GAP) GLUCOSE (test code = 232 mg/dL 70-110 H GLU) BLOOD UREA NITROGEN 42 mg/dL 7-18 H (test code = BUN) GLOMERULAR 5.6 80-90 L The Glomerular FILTRATION RATE Filtration R ate is a (test code = GFR) calculated parameterbased on serum Creatinin e, patient age and sex. GFR valuesless than 60 mL/min/1.73 squ are meters are garcia cative ofChronic Kidne y Disease. Values less than 15 mL/min/1.73squa re meters indicate Kidney failure. The calculation for GFR is based on the CK D-EPI (2020) calculat ion. This formulais race indifferent and is the recommended for cassidy for GFRby the N ational Kidney Foundati on for Adults.The GFR will not calculate i f the sex is unknown or if thepatient's ag e is <18 years. CREATININE (test 7.6 mg/dL 0.6-1.3 H code = CREAT) TOTAL PROTEIN (test 6.6 g/dL 6.4-8.2 N code = PROT) ALBUMIN (test code = 2.90 g/dL 3.4-5.0 L ALB) CALCIUM (test code = 7.9 mg/dL 8.0-10.5 L CA) BILIRUBIN TOTAL 0.20 mg/dL 0.0-1.0 (test code = BILT) SGOT/AST (test code 14 IUnit/L 15-37 L = AST) SGPT/ALT (test code 12 IUnit/L 30-65 L = ALT) ALKALINE PHOSPHATASE 338 IUnit/L 20-125 H TOTAL (test code = ALKP) [id number] 07:16:00 Test Item Value Reference Range Interpretation Comments PHOSPHOROUS (test code = PHOS) 7.6 MG/DL 2.5-4.9 H [id number] 07:16:00 Test Item Value Reference Range Interpretation Comments MAGNESIUM (test code = MAG) 2.13 mg/dL 1.80-2.40 N CALCIUM [id number] 07:16:00 Test Item Value Reference Range Interpretation Comments CALCIUM IONIZED (test code = KEISHA) 0.98 MMOL/L 1.09-1.30 L CBC W/AUTO [id number] 05:49:00 Test Item Value Reference Range Interpretation Comments WHITE BLOOD CELL (test code = 6.9 x10 3/uL 4.5-11.0 N WBC) RED BLOOD CELL (test code = 4.10 x10 6/uL 3.54-5.02 N RBC) HEMOGLOBIN (test code = HGB) 11.2 g/dL 11.0-15.0 N HEMATOCRIT (test code = HCT) 36.3 % 33.0-45.0 N MEAN CELL VOLUME (test code = 88.5 fL 81.0-99.0 N MCV) MEAN CELL HGB (test code = MCH) 27.3 pg 27.0-33.0 N MEAN CELL HGB CONCETRATION 30.9 g/dL 33.0-37.0 L (test code = MCHC) RED CELL DISTRIBUTION WIDTH CV 15.4 % 11.5-14.5 H (test code = RDW) RED CELL DISTRIBUTION WIDTH SD 49.8 fL 37.0-54.0 N (test code = RDW-SD) PLATELET COUNT (test code = 325 x10 3/uL 150-400 N PLT) MEAN PLATELET VOLUME (test code 10.6 fL 7.0-9.0 H = MPV) NEUTROPHIL % (test code = NT%) 56.1 % 56.0-77.0 N IMMATURE GRANULOCYTE % (test 0.4 % 0.0-2.0 N code = IG%) LYMPHOCYTE % (test code = LY%) 28.3 % 14.0-32.0 N MONOCYTE % (test code = MO%) 13.3 % 4.8-9.0 H EOSINOPHIL % (test code = EO%) 1.2 % 0.3-3.7 N BASOPHIL % (test code = BA%) 0.7 % 0.0-2.0 N NUCLEATED RBC % (test code = 0.0 % 0-0 N NRBC%) NEUTROPHIL # (test code = NT#) 3.88 x10 3/uL 2.0-7.6 N IMMATURE GRANULOCYTE # (test 0.03 x10 3/uL 0.00-0.03 N code = IG#) LYMPHOCYTE # (test code = LY#) 1.96 x10 3/uL 1.0-3.8 N MONOCYTE # (test code = MO#) 0.92 x10 3/uL 0.1-0.8 H EOSINOPHIL # (test code = EO#) 0.08 x10 3/uL 0.0-0.2 N BASOPHIL # (test code = BA#) 0.05 x10 3/uL 0.0-0.2 N NUCLEATED RBC # (test code = 0.00 x10 3/uL 0.0-0.1 N NRBC#) MANUAL DIFF REQUIRED (test code NO = MDIFF) DILANTIN (PHENYTOIN)2023-07-15 05:48:00 Test Item Value Reference Range Interpretation Comments DILANTIN (PHENYTOIN) (test code = 3.1 mcg/ml 10.0-20.0 L DIL) - XR CHEST 1 [id number] 00:00:00 [facility] 1960 Sex: F FAX: Dahlia JiménezmarilujackLuis E [phone] [place]: St: ADM FAX: Moe Smith MD [phone] Name: CITLALY DAVIS [facility] : 1960 Age/S: 63/F [address] [place] [address] Blvd Unit #: [id number] Loc: G.[address] [place] [address] Phys: Moe Peres MD Acct: [id number] Dis Date: Status: ADM IN PHONE #: [phone] Exam Date: 07/15/2023701 FAX #: [phone] Reason: ASSESS VOLUME ORERLOAD/PNA EXAMS: CPT CODE: [id number] XR CHEST 1 V 31736 PROCEDURE INFORMATION: Exam: XR Chest Exam date and time: 07/15/2023 6:20 AM Age: 63 years old Clinical indication: Other: Assess volume orerload/pna TECHNIQUE: Imaging protocol: Radiologic exam of the chest. Views: 1 view. COMPARISON: 1. CR XR CHEST 1V 07/13/2023 4:02 PM 2. CR XR CHEST 1V 07/14/2023 6:10 AM 3. CR XR CHEST 1V 12/11/2022 8:02 AM 4. CR XR CHEST 1V 12/05/2022 8:14 PM FINDINGS: Lungs: The lungs are essentially clear allowing for technique. There is a nodular opacity in the right infrahilar region with angled medial margin unable to be attributed to confluence of pulmonary vessels or confirmed stable. Pleural spaces: There is no pneumothorax or pleural effusion. Heart/Mediastinum: The cardiac silhouette is moderately enlarged, likely magnified by projection without interval change. Calcified plaque thoracic aorta. No gross pulmonary vascular congestion. Bones/joints: C hronic degenerative changes of the shoulders. No acute skeletal abnormality. Soft tissues: Left axillary vascular stent material noted. IMPRESSION: 1. Enlarged cardiac silhouette without significant change. No overt failure at this time. 2. Incidental right infrahilar nodular opacity of undetermined etiology, unable to be confirmed stable. [place] of pulmonary vessels and pulmonary nodule in the differential. If not previously obtained, further imaging options include CT. at 0825 Reported and signed by: John Cortez M.D. CC: Luis E Cyr DO; Moe Peres MD Technologist: Rachna Gates RT(R) Trnscrd Date/Time/By: 07/15/2023 (824) : By: Rubi Orig Print D/T: S: 07/15/2023 (824) PAGE 1 Signed ReportGLUCOSE [id number] 16:58:00 Test Item Value Reference Range Interpretation Comments GLUCOSE BEDSIDE (test 261 MG/DL 70-110 H Perfor med by certified code = GLUBED) 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 [facility] BASIC METABOLIC [id number] 14:42:00 Test Item Value Reference Range Interpretation Comments SODIUM (test code = 131 mEq/L 134-147 L NA) POTASSIUM (test code 5.9 mEq/L 3.4-5.0 HH Critica l result called = K) to RIA Karimi at 1 295 07/13/23Nurse r ead back result and tech confirmed it's correct? YPreviously rep orted result: 5.9 mEq /LEdited by: Trev on 07/14/23:223607 1441: K previou sly reported as: 5. 9 *H mEq/L Critical result called to CIRILO PRINCE by Trev at 1 274 07/13/23 Nurse read back result and tech confirmed it's correct? Y CHLORIDE (test code 93 mEq/L 100-108 L = CL) CARBON DIOXIDE (test 21 mEq/l 21-33 N code = CO2) ANION GAP (test code 23 0-20 H = GAP) GLUCOSE (test code = 295 mg/dL 70-110 H GLU) BLOOD UREA NITROGEN 53 mg/dL 7-18 H (test code = BUN) GLOMERULAR 4.7 80-90 L The Glomerular FILTRATION RATE Filtration R ate is a (test code = GFR) calculated parameterbased on serum Creatinine, pat ient age and sex. GFR va luesless than 60 mL/min/ 1.73 square meters a re indicative ofCh ronic Kidney Disease. Values less than 15 mL/min/1.73squa re meters indicate Kidney failure. The calculation forGFR is based on the CKD-EPI (2020) calculat ion. This formulais race indifferent and is the recommended for cassidy for GFRby the Nat nal Kidney Foundati on for Adults.The GFR will not calculate if th e sex is unknown or if thepatient's ag e is <18 years. CREATININE (test 8.8 mg/dL 0.6-1.3 H code = CREAT) CALCIUM (test code = 8.0 mg/dL 8.0-10.5 N CA) TROP-I HIGH [id number] 14:42:00 Test Item Value Reference Range Interpretation Comments TROP-I HIGH 470 ng/L 0-34 HH Critical result called to SENSITIVITY (test RIA [employer] code = TROPIHS) at 1644 06/25 08/17Nurse read back result and tech confirmed it's correct? YCAUTION: Units of the current test me thodology (ng/L) differfr om the prior test meth odology (ng/mL) by a fa ctor of 1000. 99t h Percentile Uppe r Reference Limit (URL): Fe males: 34 ng/LMales: 54 n g/L In order to distin guish acute elevations of h igh sensitivitytrop onin from other clinical conditions, the FourthUnive rsal Definition of M yocardial Infarction stressesclinica l assessment and the demonstration o f a rise and/orfall in s erial troponin result s above the URL. These resu lts were obtained using [employer] IM TnI Hreagent. Results from di fferent methodologies s hould not becompared to o ne another as quantitative results and URLs mayvar y by method. VITAMIN [id number] 14:05:00 Test Item Value Reference Range Interpretation Comments VITAMIN B12 (test code = VITB12) 634 pg/mL 193-986 N [id number] 13:39:00 Test Item Value Reference Range Interpretation Comments AMMONIA (test code = AMM) < 10 umol/L 11-35 L GLUCOSE [id number] 11:28:00 Test Item Value Reference Range Interpretation Comments GLUCOSE BEDSIDE (test 146 MG/DL 70-110 H Perfor med by certified code = GLUBED) 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 [facility] ACETONE [id number] 10:11:00 Test Item Value Reference Range Interpretation Comments ACETONE QUANT NEGATIVE - <20 See_Comment [Automated message] (test code = mg/dL mg/dL The system Solapa[employer]) generated this result transmit vikki reference range : Neg - <20. The refe rence range was not u sed to interpret th is result as normal/abnormal . GLUCOSE [id number] 07:47:00 Test Item Value Reference Range Interpretation Comments GLUCOSE BEDSIDE (test 365 MG/DL 70-110 H Perfor med by certified code = GLUBED) 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 [facility] CBC W/AUTO [id number] 06:09:00 Test Item Value Reference Range Interpretation Comments WHITE BLOOD CELL (test code = 8.9 x10 3/uL 4.5-11.0 N WBC) RED BLOOD CELL (test code = 4.19 x10 6/uL 3.54-5.02 N RBC) HEMOGLOBIN (test code = HGB) 11.5 g/dL 11.0-15.0 N HEMATOCRIT (test code = HCT) 36.4 % 33.0-45.0 N MEAN CELL VOLUME (test code = 86.9 fL 81.0-99.0 MCV) MEAN CELL HGB (test code = MCH) 27.4 pg 27.0-33.0 N MEAN CELL HGB CONCETRATION 31.6 g/dL 33.0-37.0 L (test code = MCHC) RED CELL DISTRIBUTION WIDTH CV 17.5 % 11.5-14.5 H (test code = RDW) RED CELL DISTRIBUTION WIDTH SD 48.8 fL 37.0-54.0 N (test code = RDW-SD) PLATELET COUNT (test code = 345 x10 3/uL 150-400 N PLT) MEAN PLATELET VOLUME (test code 11.4 fL 7.0-9.0 H = MPV) NEUTROPHIL % (test code = NT%) 79.3 % 56.0-77.0 H IMMATURE GRANULOCYTE % (test 0.6 % 0.0-2.0 N code = IG%) LYMPHOCYTE % (test code = LY%) 13.5 % 14.0-32.0 L MONOCYTE % (test code = MO%) 6.3 % 4.8-9.0 N EOSINOPHIL % (test code = EO%) 0.1 % 0.3-3.7 L BASOPHIL % (test code = BA%) 0.2 % 0.0-2.0 N NUCLEATED RBC % (test code = 0.0 % 0-0 N NRBC%) NEUTROPHIL # (test code = NT#) 7.04 x10 3/uL 2.0-7.6 N IMMATURE GRANULOCYTE # (test 0.05 x10 3/uL 0.00-0.03 H code = IG#) LYMPHOCYTE # (test code = LY#) 1.20 x10 3/uL 1.0-3.8 N MONOCYTE # (test code = MO#) 0.56 x10 3/uL 0.1-0.8 N EOSINOPHIL # (test code = EO#) 0.01 x10 3/uL 0.0-0.2 N BASOPHIL # (test code = BA#) 0.02 x10 3/uL 0.0-0.2 N NUCLEATED RBC # (test code = 0.00 x10 3/uL 0.0-0.1 N NRBC#) MANUAL DIFF REQUIRED (test code NO = MDIFF) COMPREHENSIVE METABOLIC [id number] 05:31:00 Test Item Value Reference Range Interpretation Comments SODIUM (test code = 136 mEq/L 134-147 N NA) POTASSIUM (test code 5.5 mEq/L 3.4-5.0 H SPECIME N +1 = K) HEMOLYZED.Resul ts known to be adv ersely affected by hem olysis are: Potassium Magnesium LDH Phosphorus CHLORIDE (test code 94 mEq/L 100-108 L = CL) CARBON DIOXIDE (test 28 mEq/l 21-33 code = CO2) ANION GAP (test code 20 0-20 N = GAP) GLUCOSE (test code = 337 mg/dL 70-110 H GLU) BLOOD UREA NITROGEN 31 mg/dL 7-18 H (test code = BUN) GLOMERULAR 8.1 80-90 L The Glomerular FILTRATION RATE Filtration R ate is a (test code = GFR) calculated parameterbased on serum Creatinin e, patient age and sex. GFR valuesless than 60 mL/min/1.73 squ are meters are garcia cative ofChronic Kidne y Disease. Values less than 15 mL/min/1.73squa re meters indicate Kidney failure. The calculation for GFR is based on the CK D-EPI (2020) calculat ion. This formulais race indifferent and is the recommended for cassidy for GFRby the N [facility] on for Adults.The GFR will not calculate i f the sex is unknown or if thepatient's ag e is <18 years. CREATININE (test 5.6 mg/dL 0.6-1.3 H code = CREAT) TOTAL PROTEIN (test 7.6 g/dL 6.4-8.2 N code = PROT) ALBUMIN (test code = 3.40 g/dL 3.4-5.0 N ALB) CALCIUM (test code = 8.2 mg/dL 8.0-10.5 N CA) BILIRUBIN TOTAL 0.40 mg/dL 0.0-1.0 N (test code = BILT) SGOT/AST (test code 25 IUnit/L 15-37 N = AST) SGPT/ALT (test code 17 IUnit/L 30-65 L = ALT) ALKALINE PHOSPHATASE 419 IUnit/L 20-125 H TOTAL (test code = ALKP) [id number] 05:31:00 Test Item Value Reference Range Interpretation Comments PHOSPHOROUS (test code = PHOS) 5.7 MG/DL 2.5-4.9 H [id number] 05:31:00 Test Item Value Reference Range Interpretation Comments MAGNESIUM (test code = MAG) 2.02 mg/dL 1.80-2.40 N CALCIUM [id number] 05:31:00 Test Item Value Reference Range Interpretation Comments CALCIUM IONIZED (test code = KEISHA) 0.97 MMOL/L 1.09-1.30 L LACTIC ACID [id number] 05:08:00 Test Item Value Reference Range Interpretation Comments LACTIC ACID REPEAT (test code = 1.0 mmol/l 0.4-1.9 N LACTR) - XR CHEST 1 [id number] 00:00:00 [facility] 1960 Sex: F FAX: Luis E Kline DO [phone] [place]: St: [facility] FAX: Moe Smith MD [phone] FAX: Mavis Mcadams TEACHER TUTOR Name: CITLALY DAVIS [facility] : 1960 Age/S: 63/F [address] [place] [address] Unit #: [id number] Loc: [place] [address] Phys: Mavis Mcadams NP Acct: [id number] Dis Date: Status: ADM INPHONE #: [phone] Exam Date: 07/14/2023 0610 FAX #: [phone] Reason: ASSESS VOLUME OVERLOAD/PNA EXAMS: CPT CODE: [id number] XR CHEST 1 V 97412 PROCEDURE INFORMATION: Exam: XR Chest Exam date and time: 07/14/2023 6:10 AM Age: 63 years old Clinical indication: Pain; Additional info: Assess volumeoverload/pna TECHNIQUE: Imaging protocol: Radiologic exam of the chest. Views: 1 view. COMPARISON: CR XR CHEST 1V 07/13/2023 4:02 PM FINDINGS: Lungs: See "Heart/Mediastinum" finding. Pleural spaces: See"Heart/Mediastinum" finding. Heart/Mediastinum: The cardiac silhouette demonstrates left ventricular enlargement without evidence of failure. No gross active pleural, parenchymal, or mediastinal abnormalities noted. Bones/joints: The visualized bones of the thorax are grossly unremarkable. IMPRESSION: 1. The cardiac silhouette demonstrates left ventricular enlargement without evidence of failure. 2.No acute abnormality in the chest. Interval improvement. at 0808 Reported and signed by: Shen Metz M.D. CC: Luis E Cyr DO; Moe Peres MD; Mavis Mcadams TEACHER TUTOR Technologist: Rosa Ramirez RT(R) Trnscrd Date/Time/By: 07/14/2023 (807) : By: [email or web address] Orig Print D/T: S: 07/14/2023 (08) PAGE 1 Signed ReportGLUCOSE [id number] 21:33:00 Test Item Value Reference Range Interpretation Comments GLUCOSE BEDSIDE (test 192 MG/DL 70-110 H Perfor med by certified code = GLUBED) 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 [facility] ACUTE HEPATITIS [id number] 21:01:00 Test Item Value Reference Range Interpretation Comments AB HEPATITIS A IGM (test NON REACTIVE INDEX NON REACT. code = HAVMAB) AG HEPATITIS B SURFACE NON REACTIVE INDEX NonReactive (test code = HBSAG) AB HEPATITIS B CORE IGM NON REACTIVE INDEX NON REACT. (test code = HBCMAB) AB HEPATITIS C (test code NON REACTIVE INDEX NON REACT. = HCVAB) COVID 19 INHOUSE [id number] 17:35:00 Test Item Value Reference Range Interpretation Comments COVID 19 INHOUSE Negative Negative A negative result is AG (test code = presumptive and should be [id number]) confirmedwith a n FDA authorized mole cular assay, if necessary fo rpatient management.A po sitive result does not rule out co-infections w ithother pathogens.This test detects both viable (li ve) and non-viable,SARS -CoV, and SARS-CoV-2. Reg t performance dep ends on theamount of vi rocco (antigen) in th e sample.This reg t has not been FDA cleare d or approved; the t est hasbeen authorized by [facility]ada [facility] under an Emergency Use Authorization(E UA) for use by laboratories certified under the CLIA thatmeet the requirements to perform moderate, high or waivedcomplexit y tests. INFLUENZA A [id number] 17:34:00 Test Item Value Reference Range Interpretation Comments INFLUENZA A (test code = FLUAPCR) Negative Negative INFLUENZA B (test code = FLUBPCR) Negative Negative LACTIC [id number] 17:28:00 Test Item Value Reference Range Interpretation Comments LACTIC ACID (test code = LACT) 2.5 mmol/L 0.4-1.9 H LIPOPROTEIN [id number] 17:05:00 Test Item Value Reference Range Interpretation Comments LIPOPROTEIN LDL 109.0 mg/dL 0-100 H <100 OPTIMAL 100-129 (test code = LDL) NEAR OPTIM AL/ABOVE [id number] 89 HIGH>WT=569 VANDANA Y HIGH*Guidelines provided by the National Choles terol EducationProgra m Adult Treatment Panel III B-TYPE NATRIURETIC [id number] 16:53:00 Test Item Value Reference Range Interpretation Comments B-TYPE NATRIURETIC PEPTIDE (test 4192.0 PG/ML 0-100 H code = BNP) PROTHROMBIN [id number] 16:27:00 Test Item Value Reference Range Interpretation Comments PROTHROMBIN TIME 11.5 SECONDS 9.3-12.9 N PATIENT (test code = PTP) INTERNATIONAL NORMAL 1.0 0.8-1.2 N TARGET INR BY RATIO (test code = INDICATIO N Indication INR) INR1. Prophylax is of venous thrombos is 2.0 - 3.0 (orthoped ic surgery), Proph ylaxis of venous throm bosis (other than hig h-risk surgery), Treat ment of Deep Vein Thrombosis/Pulm onary Embolism, Preve ntion of systemic emb olism - Tissue heart va lves, Acute Myocardia l Infarction (to prevent systemic emboli sm), Valvular heart disease, Atrial Fibrillation, Bileaflet mecha nical valve in aortic position.2. Mec hanical prosthetic valv es (high risk), 2. 5 - 3.5 Presence of Lup us Anticoagulant o r Antiphospholipi d Antibodies, Pre vention of systemic emb olism - Acute Myocardia l Infarction (to prevent recurrent infar ct). CBC W/AUTO [id number] 16:22:00 Test Item Value Reference Range Interpretation Comments WHITE BLOOD CELL (test code = 10.1 x10 3/uL 4.5-11.0 N WBC) RED BLOOD CELL (test code = 4.27 x10 6/uL 3.54-5.02 N RBC) HEMOGLOBIN (test code = HGB) 11.6 g/dL 11.0-15.0 N HEMATOCRIT (test code = HCT) 35.3 % 33.0-45.0 N MEAN CELL VOLUME (test code = 82.7 fL 81.0-99.0 N MCV) MEAN CELL HGB (test code = MCH) 27.2 pg 27.0-33.0 N MEAN CELL HGB CONCETRATION 32.9 g/dL 33.0-37.0 L (test code = MCHC) RED CELL DISTRIBUTION WIDTH CV 15.2 % 11.5-14.5 H (test code = RDW) RED CELL DISTRIBUTION WIDTH SD 45.1 fL 37.0-54.0 N (test code = RDW-SD) PLATELET COUNT (test code = 346 x10 3/uL 150-400 N PLT) MEAN PLATELET VOLUME (test code 10.7 fL 7.0-9.0 H = MPV) NEUTROPHIL % (test code = NT%) 86.7 % 56.0-77.0 H IMMATURE GRANULOCYTE % (test 0.5 % 0.0-2.0 N code = IG%) LYMPHOCYTE % (test code = LY%) 8.4 % 14.0-32.0 L MONOCYTE % (test code = MO%) 4.1 % 4.8-9.0 L EOSINOPHIL % (test code = EO%) 0.1 % 0.3-3.7 L BASOPHIL % (test code = BA%) 0.2 % 0.0-2.0 N NUCLEATED RBC % (test code = 0.0 % 0-0 N NRBC%) NEUTROPHIL # (test code = NT#) 8.73 x10 3/uL 2.0-7.6 H IMMATURE GRANULOCYTE # (test 0.05 x10 3/uL 0.00-0.03 H code = IG#) LYMPHOCYTE # (test code = LY#) 0.85 x10 3/uL 1.0-3.8 L MONOCYTE # (test code = MO#) 0.41 x10 3/uL 0.1-0.8 N EOSINOPHIL # (test code = EO#) 0.01 x10 3/uL 0.0-0.2 N BASOPHIL # (test code = BA#) 0.02 x10 3/uL 0.0-0.2 N NUCLEATED RBC # (test code = 0.00 x10 3/uL 0.0-0.1 N NRBC#) MANUAL DIFF REQUIRED (test code NO = MDIFF) - CT HEAD/BRAIN W/O [id number] 00:00:00 [facility] 1960 Sex: F Name:CITLALY DAVIS [facility] : 1960 Age/S: 63 / F [address] [place] [address] Unit #: [id number] Loc: [facility] [place] [address] Phys: Vandana OdenP Acct: [id number] Dis Date: Status: ADMIN PHONE #: [phone] Exam Date: 07/13/2023 1830 FAX #: [phone] Reason: AMS EXAMS: CPT CODE:[id number] CT HEAD/BRAIN W/O CONT 38157 PROCEDURE INFORMATION: Exam: CT Head Without Contrast Exam date and time: 07/13/2023 6:27 PM Age: 63 years old Clinical indication: Altered mental status/memory loss; Additional info: AMS TECHNIQUE: Imaging protocol: Computed tomography of the head without contrast. Radiation optimization: All CT scans at this facility use at least one of these dose optimizationtechniques: automated exposure control; mA and/or kV adjustment per patient size (includes targeted e xams where dose is matched to clinical indication); or iterative reconstruction. REPORTING DATA: Count of CT and Cardiac NM exams in prior 12 months: This patient has received 2 known CTs and 0 known cardiac nuclear medicine studies in the 12 months prior to the current study. COMPARISON: CT HEAD/BRAIN W/O CONT 02/11/2023 9:47 PM FINDINGS: Brain: No acute intracranial hemorrhage or mass effect. The santos-white matter differentiation is preserved. 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 Cerebral ventricles: No ventriculomegaly. Paranasal sinuses: Visualized sinuses are unremarkable. No fluid levels. Mastoid air cells: Visualized mastoid air cells are well aerated. Orbital cavities: Bila teral intraocular lens replacements. Bones/joints: Unremarkable. No acute fracture. Soft tissues: Unremarkable. Vasculature: Atherosclerotic calcification of the carotid siphons. IMPRESSION: 1. No acute intracranial abnormality. 2. 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 at 2040 Reported and signed by: Bigg Ely M.D. PAGE 1 Signed Report (CONTINUED) Name: CITLALY DAVIS [facility] : 1960 Age/S: 63 / F [address] [place], [place] [address] Unit #: [id number] Loc: [place] [address] Phys: Vandana Oden Acct:[id number] Dis Date: Status: ADM IN PHONE #: [phone] Exam Date: 07/13/2023 183 FAX #: [phone] Reason: AMS EXAMS: CPT CODE: [id number] CT HEAD/BRAIN W/O CONT 47037 (Continued) CC: Luis E Oden Technologist:Daniella Nicole, RT(R); Jose CTDI: DLP: Trnscb Date/Time: 07/13/2023 (2039) [email or web address] Orig Print D/T: S: 07/13/2023 (2039) PAGE 2 Signed Report- XR CHEST 1 [id number] 00:00:00 [facility] : 1960 Sex: F FAX: Vandana Oden [phone] [place]: St: [facility] Name: CITLALY DAVIS [facility] : 1960 Age/S: 63/F [address] [place] [address] Unit #: [id number] Loc: [place] [address] Phys: Vandana Oden APRNNP Acct: [id number] Dis Date: Status: REG ER PHONE #: [phone] Exam Date: 07/13/2023 1616 FAX #: [phone] Reason: Chest Pain EXAMS: CPT CODE: [id number] XR CHEST 1 V 91355 PROCEDURE INFORMATION: Exam: XR Chest Exam date and time: 07/13/2023 4:02 PM Age: 63 years old Clinical indication: Other: Chest pain TECHNIQUE: Imaging protocol: Radiologic exam of the chest. Views: 1 view. COMPARISON: CR XR CHEST 1V 02/11/2023 8:58 PM FINDINGS: Lungs: Probably mild vascular congestive change and pulmonary edema versus pneumonia. No gross consolidation. Pleural spaces: No significant pleural effusion. No significant pneumothorax. Heart/Mediastinum: Stable moderately enlarged cardiac silhouette. Atherosclerotic thoracic aorta. Bones/joints: No radiographically evident of displaced rib fracture. IMPRESSION:Probably mild vascular congestive change and pulmonary edema versus pneumonia. Please correlate clinically. at 1643 Reported and signed by: Adán Hagen M.D. CC: Vandana Oden Technologist: RT Vick([employer]ita) Trnscrd Date/Time/By: 07/13/2023 (1642) : By: [email or web address] Orig Print D/T: S: 07/13/2023 (1642) PAGE 1 Signed [facility] GLUCOSE (AUTOMATED)2023-05-26 15:18:29 Test Item Value Reference Range Interpretation Comments POCT GLU (test code = 6042003301) 338 mg/dL 70-110 H Lab Interpretation (test code = Abnormal 39166-4) [facility] GLUCOSE (AUTOMATED)2023-05-26 02:01:59 Test Item Value Reference Range Interpretation Comments POCT GLU (test code = 0829954935) 174 mg/dL 70-110 H Lab Interpretation (test code = Abnormal 38350-0) [facility] GLUCOSE (AUTOMATED)2023-05-25 22:07:03 Test Item Value Reference Range Interpretation Comments POCT GLU (test code = 0778662376) 323 mg/dL 70-110 H Lab Interpretation (test code = Abnormal 50582-5) [facility] GLUCOSE (AUTOMATED)2023-05-25 17:07:04 Test Item Value Reference Range Interpretation Comments POCT GLU (test code = 9482261403) 425 mg/dL 70-110 H Lab Interpretation (test code = Abnormal 11907-0) [facility] GLUCOSE (AUTOMATED)2023-05-25 15:39:21 Test Item Value Reference Range Interpretation Comments POCT GLU (test code = 1104495534) 207 mg/dL 70-110 H Lab Interpretation (test code = Abnormal 37624-2) [facility]), WHOLE [id number] 10:48:56 Test Item Value Reference Range Interpretation Comments Vitamin B1, Whole 138 nmol/L 70-180 INTERPRETI VE INFORMATION: Blood (test code = Vitamin B 1, Whole Blood 09691-4) This assay zaida ures the concentration o f thiamine diphosphate (TD P), the primary active form of vitamin B1. Amy roximately 90 percent of v itamin B1 present in whol e blood is TDP. Thiamine a nd thiamine monoph osphate, which comprise the remaining 10 pe rcent, are not measured. T his test was developed a nd its performance characteristics determined by [facility]. I t has not been cleared or approved by the [place] Food and Drug Administration. This test was performed i n a CLIA certified labor atory and is intended for clinical purposes.Perfor med By: [facility] [place] [id number] aboratory Director: Sofya Mcfarlane MD, PhD [facility] GLUCOSE (AUTOMATED)2023-05-25 01:29:01 Test Item Value Reference Range Interpretation Comments POCT GLU (test code = 5916155972) 193 mg/dL 70-110 H Lab Interpretation (test code = Abnormal 97247-0) [facility] GLUCOSE (AUTOMATED)2023-05-25 01:12:35 Test Item Value Reference Range Interpretation Comments POCT GLU (test code = 4567529980) 201 mg/dL 70-110 H Lab Interpretation (test code = Abnormal 41808-6) [facility]6, [id number] 22:13:19 Test Item Value Reference Range Interpretation Comments VIT B6 (test code = 9.6 nmol/L 20.0-125.0 L INTERPRE TIVE 69537-0) INFORMATION: Vi tamin B6 (Pyridoxal 5-Phosphate) Py ridoxal 5'-phosphate me asured in a specimen collected follo wing an 8-hour or overn ight fast accurately indicates vitam in B6 nutritional sta tus. Non-fasting spe cimen concentration r eflects recent vitamin intake. This test was developed and i ts performance characteristics determined by [facility]. I t has not been cleare d or approved by the US Food and Drug Administration. This test was perfor med in a CLIA certifie d laboratory and is intended for cl inical purposes.Perfor med By: TYRONE [address] [place], [place] [address]Ban[employer] Director: Sofya Mcfarlane MD, PhD Lab Interpretation Abnormal (test code = 81244-4) [facility] GLUCOSE (AUTOMATED)2023-05-24 22:11:57 Test Item Value Reference Range Interpretation Comments POCT GLU (test code = 9703688900) 343 mg/dL 70-110 H Lab Interpretation (test code = Abnormal 54096-8) [facility] GLUCOSE (AUTOMATED)2023-05-24 02:12:56 Test Item Value Reference Range Interpretation Comments POCT GLU (test code = 8803559166) 176 mg/dL 70-110 H Lab Interpretation (test code = Abnormal 19536-4) [facility] GLUCOSE (AUTOMATED)2023-05-23 22:32:03 Test Item Value Reference Range Interpretation Comments POCT GLU (test code = 6315228695) 210 mg/dL 70-110 H Lab Interpretation (test code = Abnormal 55117-9) [facility] GLUCOSE (AUTOMATED)2023-05-23 17:09:37 Test Item Value Reference Range Interpretation Comments POCT GLU (test code = 3743441234) 203 mg/dL 70-110 H Lab Interpretation (test code = Abnormal 52451-3) [facility] GLUCOSE (AUTOMATED)2023-05-23 13:21:18 Test Item Value Reference Range Interpretation Comments POCT GLU (test code = 4151681338) 184 mg/dL 70-110 H Lab Interpretation (test code = Abnormal 79925-0) [facility] Whole [id number] 12:55:22 Test Item Value Reference Range Interpretation Comments LACTIC ACID (test code = 1.58 mmol/L 0.50-2.20 7228996718) Lab Interpretation (test code = Normal 52872-4) [facility] [id number] 12:48:53 Test Item Value Reference Range Interpretation Comments PHENY FREE (test code 1.0-2.0 L = 1879429585) ALAINA (test code = ALAINA) Toxic Range: ? Greater than 2.5 ug/mL Test developed and characteristics determined by [facility]. Lab Interpretation Abnormal (test code = 29881-9) [facility] GLUCOSE (AUTOMATED)2023-05-23 01:20:39 Test Item Value Reference Range Interpretation Comments POCT GLU (test code = 9927657540) 129 mg/dL 70-110 H Lab Interpretation (test code = Abnormal 89714-3) [facility] Surface Antibody (HBsAb)2023-05-22 21:17:13 Test Item Value Reference Range Interpretation Comments HBsAB (test code = Positive 2232843883) HBsAb mIU/mL Semi-Quantitative (test code = 6720967348) ALAINA (test code = Interpretation: ALAINA) ?Hepatitis B Surface Antibody ? Negative - Patient is considered to be not immune to infection with HBV. ? ? Positive - Anti-HBs detected at greater than or equal to 12 mIU/mL. ?Patient is considered to be immune to infection with HBV. ? [facility] GLUCOSE (AUTOMATED)2023-05-22 21:05:05 Test Item Value Reference Range Interpretation Comments POCT GLU (test code = 3442633346) 119 mg/dL 70-110 H Lab Interpretation (test code = Abnormal 50613-3) [facility] B Surface Antigen (HBsAg)2023-05-22 20:59:30 Test Item Value Reference Range Interpretation Comments HBsAg Semi-Quantitative (test code = 0.06 Negative 5195-3) [facility] [id number] 17:26:12 Test Item Value Reference Range Interpretation Comments TROPONIN I (test code = 0.125 ng/mL <=0.034 H 3918660465) ALAINA (test code = ALAINA) Reference (Normal) Range (defined by the 99th percentile reference [...] biotin. Lab Interpretation Abnormal (test code = 84176-1) [facility] GLUCOSE (AUTOMATED)2023-05-22 16:31:35 Test Item Value Reference Range Interpretation Comments POCT GLU (test code = 4643763280) 180 mg/dL 70-110 H Lab Interpretation (test code = Abnormal 53281-2) [facility] GLUCOSE (AUTOMATED)2023-05-22 12:50:21 Test Item Value Reference Range Interpretation Comments POCT GLU (test code = 4437387085) 248 mg/dL 70-110 H Lab Interpretation (test code = Abnormal 58162-0) [facility] STIMULATING [id number] 10:13:07 Test Item Value Reference Range Interpretation Comments TSH (test code = 1.14 See_Comment [Automated message] [id number]) The system [employer] generated this result transmitted ref erence range: 0.45 - 4 .70 mIU/L. The refe rence range was not u sed to interpret this result as normal/abnor mal. Lab Interpretation (test Normal code = 47531-5) [facility] METABOLIC PANEL (NA, K, CL, CO2, GLUCOSE, BUN, CREATININE, CA)2023-05-22 09:55:05 Test Item Value Reference Range Interpretation Comments NA (test code = 134 mmol/L 135-145 L [id number]) K (test code = 4.2 mmol/L 3.5-5.0 3323776371) CL (test code = 92 mmol/L 98-108 L 1585516837) CO2 TOTAL (test code = 28 mmol/L 23-31 3114417664) AGAP (test code = 14 2-16 2197190336) BUN (test code = 41 mg/dL 7-23 H 7600415577) GLUCOSE (test code = 278 mg/dL 70-110 H 0348841325) CREATININE (test code = 7.20 mg/dL 0.50-1.04 H 9391497261) CALCIUM (test code = 7.8 mg/dL 8.6-10.6 L 3976328019) eGFR (test code = 5.8 mL/min/1.73m2 4823284107) ALAINA (test code = ALAINA) Association of [...] tests). Lab Interpretation Abnormal (test code = 75011-7) [id number] 09:54:50 Test Item Value Reference Range Interpretation Comments TROPONIN I (test code = 0.095 ng/mL <=0.034 H 1655024185) ALAINA (test code = ALAINA) Reference (Normal) Range (defined by the 99th percentile reference [...] biotin. Lab Interpretation Abnormal (test code = 57325-1) [facility] 09:39:22 Test Item Value Reference Range Interpretation Comments MAGNESIUM (test code = 3067903162) 1.9 mg/dL 1.7-2.4 Lab Interpretation (test code = Normal 80526-1) [facility] 09:39:22 Test Item Value Reference Range Interpretation Comments PHOSPHORUS (test code = 0017598165) 5.9 mg/dL 2.5-5.0 H Lab Interpretation (test code = Abnormal 31069-9) [facility] WITHOUT [id number] 09:07:59 Test Item Value Reference Range Interpretation Comments WBC (test code = 6690-2) 8.92 See_Comment [A utomated message] The system [employer] generated this result transmit vikki reference range : 4.30 - 11.10 10*3/?L. The reference range was not used to interpret this result as normal/abnormal . RBC (test code = 789-8) 3.90 See_Comment L [Au tomated message] The system [employer] generated this result transmit vikki reference range : 3.93 - 5.25 10* 6/?L. The reference r henry was not used to interpret this result as normal/abnormal . HGB (test code = 718-7) 10.4 g/dL 11.6-15.0 L HCT (test code = 4544-3) 32.3 % 35.7-45.2 L MCH (test code = 785-6) 26.7 pg 25.9-32.8 MCV (test code = 787-2) 82.8 fL 80.6-95.5 MCHC (test code = 786-4) 32.2 g/dL 31.6-35.1 PLT (test code = 777-3) 333 See_Comment [Au tomated message] The system [employer] generated this result transmit vikki reference range : 166 - 358 10*3/?L. The reference range was not used to interpret this result as normal/abnormal . MPV (test code = 9.4 fL 9.5-12.9 L 30300-5) RDW-CV (test code = 18.6 % 12.0-15.5 H 788-0) RDW-SD (test code = 54.2 fL 39.0-49.9 H 32207-3) NRBC x10^3 (test code = 0.03 See_Comment [Au tomated message] [id number]) The system [employer] generated this result transmit vikki reference range : 10*3/?L. The reference range was not used to interpret this result as normal/abnormal . NRBC/100 WBC (test code 0.3 See_Comment [Au tomated message] = 1098973093) The system [employer] ch generated this result transmit vikki reference range : 0.0 - 10.0 /100 WBC s. The reference r henry was not used to interpret this result as normal/abnormal . IPF % (test code = 9987314499) Lab Interpretation (test Abnormal code = 41050-2) [facility] [id number] 04:48:12 Test Item Value Reference Range Interpretation Comments TROPONIN I (test code = 0.075 ng/mL <=0.034 H 0354145587) ALAINA (test code = ALAINA) Reference (Normal) Range (defined by the 99th percentile reference [...] biotin. Lab Interpretation Abnormal (test code = 44304-0) [facility]2023-05-22 02:29:37 Test Item Value Reference Range Interpretation Comments POCT GLU (test code = 3382351210) 295 mg/dL 70-110 H Lab Interpretation (test code = Abnormal 91363-8) [facility] 20 + Lactic [id number] 01:28:12 Test Item Value Reference Range Interpretation Comments PH (test code = 2) 7.50 7.35-7.45 H PCO2 (test code = 34 See_Comment L [Automate d [id number]) message] The sy stem which generated this result transmitted reference range : 35 - 45 mmHg. The reference range was not used to interpret this result as normal/abnormal . PO2 (test code = 69 See_Comment L [Automated [id number]) message] The sy stem which generated this result transmitted reference range : 80 - 100 mmHg. The reference range was not used to interpret this result as normal/abnormal . HCO3 (test code = 26 See_Comment [Automate d 3454816262) message] The sy stem which generated this result transmitted reference range : 22 - 26 mEq/L. The reference range was not used to interpret this result as normal/abnormal . BE (test code = 3.2 See_Comment H [Automated 2163487097) message] The sy stem which generated this result transmitted reference range : -3.0 - 3.0 mEq/ L. The reference r henry was not used to interpret this result as normal/abnormal . THB (test code = 11.9 g/dL 12.0-16.0 L 8889743854) %O2HB (test code = 93.8 % 94.0-99.0 L 2642046848) %COHB ART (test code = 0.7 % 0.0-1.5 4925290534) %METHB ART (test code = 0.1 % 0.4-1.5 L 8449157763) VOL%O2 ART (test code = 15.7 % 15.0-23.0 7213805220) NA (test code = 135 mmol/L 135-145 2495677925) K+ (test code = 3.8 mmol/L 3.5-5.0 6025696221) AC CA IONZ (test code = 3.70 mg/dL 4.50-5.30 L 3854363883) GLUCOSE (test code = 330 mg/dL 70-110 H 0016482137) LACTIC ACID (test code 1.77 mmol/L 0.50-2.20 = 6522975993) Lab Interpretation Abnormal (test code = 65673-2) [facility] Glucose (Age >30 Days)2023-05-21 22:10:00 Test Item Value Reference Range Interpretation Comments POCT Glu (age>30days) (test code = 380 mg/dL 70-110 A 3342) Lab Interpretation (test code = Abnormal 71346-5) [facility]2023-05-21 21:38:44 Test Item Value Reference Range Interpretation Comments POCT GLU (test code = 6753541117) 380 mg/dL 70-110 H Lab Interpretation (test code = Abnormal 72326-5) [facility] [id number] 19:49:00 Test Item Value Reference Range Interpretation Comments GLUCOSE BEDSIDE (test 327 MG/DL 70-110 H Perfor med by certified code = GLUBED) 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 [facility] GLUCOSE [id number] 16:05:00 Test Item Value Reference Range Interpretation Comments GLUCOSE BEDSIDE (test 244 MG/DL 70-110 H Perfor med by certified code = GLUBED) 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 [facility] GLUCOSE [id number] 11:31:00 Test Item Value Reference Range Interpretation Comments GLUCOSE BEDSIDE (test 271 MG/DL 70-110 H Perfor med by certified code = GLUBED) 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 [facility] GLUCOSE [id number] 07:29:00 Test Item Value Reference Range Interpretation Comments GLUCOSE BEDSIDE (test 126 MG/DL 70-110 H Perfor med by certified code = GLUBED) 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 [facility] BASIC METABOLIC [id number] 03:55:00 Test Item Value Reference Range Interpretation Comments SODIUM (test code = 135 mEq/L 134-147 N NA) POTASSIUM (test code 5.5 mEq/L 3.4-5.0 H = K) CHLORIDE (test code 98 mEq/L 100-108 L = CL) CARBON DIOXIDE (test 25 mEq/l 21-33 N code = CO2) ANION GAP (test code 18 0-20 N = GAP) GLUCOSE (test code = 139 mg/dL 70-110 H GLU) BLOOD UREA NITROGEN 47 mg/dL 7-18 H (test code = BUN) GLOMERULAR 6.0 80-90 L The Glomerular FILTRATION RATE Filtration R ate is a (test code = GFR) calculated parameterbased on serum Creatinine, pat ient age and sex. GFR va luesless than 60 mL/min/ 1.73 square meters a re indicative ofCh ronic Kidney Disease. Values less than 15 mL/min/1.73squa re meters indicate Kidney failure. The calculation forGFR is based on the CKD-EPI (2020) calculat ion. This formulais race indifferent and is the recommended for cassidy for GFRby the [facility] on for Adults.The GFR will not calculate if th e sex is unknown or if thepatient's ag e is <18 years. CREATININE (test 7.2 mg/dL 0.6-1.3 H code = CREAT) CALCIUM (test code = 8.4 mg/dL 8.0-10.5 N CA) CBC W/AUTO [id number] 03:38:00 Test Item Value Reference Range Interpretation Comments WHITE BLOOD CELL (test code = 7.5 x10 3/uL 4.5-11.0 N WBC) RED BLOOD CELL (test code = 4.99 x10 6/uL 3.54-5.02 N RBC) HEMOGLOBIN (test code = HGB) 12.6 g/dL 11.0-15.0 N HEMATOCRIT (test code = HCT) 40.4 % 33.0-45.0 N MEAN CELL VOLUME (test code = 81.0 fL 81.0-99.0 N MCV) MEAN CELL HGB (test code = MCH) 25.3 pg 27.0-33.0 L MEAN CELL HGB CONCETRATION 31.2 g/dL 33.0-37.0 L (test code = MCHC) RED CELL DISTRIBUTION WIDTH CV 19.8 % 11.5-14.5 H (test code = RDW) RED CELL DISTRIBUTION WIDTH SD 57.3 fL 37.0-54.0 H (test code = RDW-SD) PLATELET COUNT (test code = 283 x10 3/uL 150-400 N PLT) MEAN PLATELET VOLUME (test code 9.4 fL 7.0-9.0 H = MPV) NEUTROPHIL % (test code = NT%) 71.6 % 56.0-77.0 N IMMATURE GRANULOCYTE % (test 0.4 % 0.0-2.0 N code = IG%) LYMPHOCYTE % (test code = LY%) 14.9 % 14.0-32.0 N MONOCYTE % (test code = MO%) 10.6 % 4.8-9.0 H EOSINOPHIL % (test code = EO%) 2.0 % 0.3-3.7 N BASOPHIL % (test code = BA%) 0.5 % 0.0-2.0 N NUCLEATED RBC % (test code = 0.0 % 0-0 N NRBC%) NEUTROPHIL # (test code = NT#) 5.38 x10 3/uL 2.0-7.6 N IMMATURE GRANULOCYTE # (test 0.03 x10 3/uL 0.00-0.03 N code = IG#) LYMPHOCYTE # (test code = LY#) 1.12 x10 3/uL 1.0-3.8 N MONOCYTE # (test code = MO#) 0.80 x10 3/uL 0.1-0.8 N EOSINOPHIL # (test code = EO#) 0.15 x10 3/uL 0.0-0.2 N BASOPHIL # (test code = BA#) 0.04 x10 3/uL 0.0-0.2 N NUCLEATED RBC # (test code = 0.00 x10 3/uL 0.0-0.1 N NRBC#) MANUAL DIFF REQUIRED (test code NO = MDIFF) GLUCOSE [id number] 21:15:00 Test Item Value Reference Range Interpretation Comments GLUCOSE BEDSIDE (test 335 MG/DL 70-110 H Perfor med by certified code = GLUBED) 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 [facility] GLUCOSE [id number] 17:46:00 Test Item Value Reference Range Interpretation Comments GLUCOSE BEDSIDE (test 192 MG/DL 70-110 H Perfor med by certified code = GLUBED) 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 [facility] GLUCOSE [id number] 12:12:00 Test Item Value Reference Range Interpretation Comments GLUCOSE BEDSIDE (test 162 MG/DL 70-110 H Perfor med by certified code = GLUBED) 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 [facility] GLUCOSE [id number] 08:22:00 Test Item Value Reference Range Interpretation Comments GLUCOSE BEDSIDE (test 134 MG/DL 70-110 H Perfor med by certified code = GLUBED) 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 [facility] ACUTE HEPATITIS [id number] 05:12:00 Test Item Value Reference Range Interpretation Comments AB HEPATITIS A IGM (test NON REACTIVE INDEX NON REACT. code = HAVMAB) AG HEPATITIS B SURFACE NON REACTIVE INDEX NonReactive (test code = HBSAG) AB HEPATITIS B CORE IGM NON REACTIVE INDEX NON REACT. (test code = HBCMAB) AB HEPATITIS C (test code NON REACTIVE INDEX NON REACT. = HCVAB) AB HEPATITIS B [id number] 05:12:00 Test Item Value Reference Range Interpretation Comments AB HEPATITIS B > 1000.0 mIU/mL See_Comment Status of Immunity SURFACE (test code Anti-HBs Level = HBSAB) --- I ncons istent with Imm unity 0.0 - 9.9Consis tent with Immunity >9.9Performed A t: HD [facility] [address] [id number] Vinicio Leach MD Ph:[phone] [Automated mess age] The system [employer] generated this result transmit vikki reference range : Immunity>9.9. T he reference range was not used to interpret this result as normal/abnormal . GLUCOSE [id number] 04:29:00 Test Item Value Reference Range Interpretation Comments GLUCOSE BEDSIDE (test 153 MG/DL 70-110 H Perfor med by certified code = GLUBED) 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 [facility] GLUCOSE [id number] 20:09:00 Test Item Value Reference Range Interpretation Comments GLUCOSE BEDSIDE (test 318 MG/DL 70-110 H Perfor med by certified code = GLUBED) 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 [facility] GLUCOSE [id number] 15:58:00 Test Item Value Reference Range Interpretation Comments GLUCOSE BEDSIDE (test 109 MG/DL 70-110 N Perfor med by certified code = GLUBED) 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 [facility] GLUCOSE [id number] 11:08:00 Test Item Value Reference Range Interpretation Comments GLUCOSE BEDSIDE (test 224 MG/DL 70-110 H Perfor med by certified code = GLUBED) 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 [facility] GLUCOSE [id number] 22:40:00 Test Item Value Reference Range Interpretation Comments GLUCOSE BEDSIDE (test 184 MG/DL 70-110 H Perfor med by certified code = GLUBED) 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 [facility] GLUCOSE [id number] 17:56:00 Test Item Value Reference Range Interpretation Comments GLUCOSE BEDSIDE (test 124 MG/DL 70-110 H Perfor med by certified code = GLUBED) 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 [facility] GLUCOSE [id number] 14:54:00 Test Item Value Reference Range Interpretation Comments GLUCOSE BEDSIDE (test 133 MG/DL 70-110 H Perfor med by certified code = GLUBED) 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 [facility] GLUCOSE [id number] 12:11:00 Test Item Value Reference Range Interpretation Comments GLUCOSE BEDSIDE (test 144 MG/DL 70-110 H Perfor med by certified code = GLUBED) 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 [facility] GLUCOSE [id number] 09:53:00 Test Item Value Reference Range Interpretation Comments GLUCOSE BEDSIDE (test 111 MG/DL 70-110 H Perfor med by certified code = GLUBED) 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 [facility] TROP-I HIGH [id number] 09:39:00 Test Item Value Reference Range Interpretation Comments TROP-I HIGH 498 ng/L 0-34 HH CAUTION: Units of the SENSITIVITY (test current te st methodology code = TROPIHS) (ng/L) diffe rfrom the prior test meth odology (ng/mL) by a fa ctor of 1000. 99t h Percentile Uppe r Reference Limit (URL): Fe males: 34 ng/LMales: 54 n g/L In order to distin guish acute elevations of h igh sensitivitytrop onin from other clinical conditions, the FourthUnive rsal Definition of M yocardial Infarction stressesclinica l assessment and the demonstration o f a rise and/orfall in s erial troponin result s above the URL. These resu lts were obtained using [employer] IM TnI Hreagent. Results from di fferent methodologies s hould not becompared to o ne another as quantitative results and URLs mayvar y by method. GLUCOSE [id number] 07:32:00 Test Item Value Reference Range Interpretation Comments GLUCOSE BEDSIDE (test 76 MG/DL 70-110 N Perfor med by certified code = GLUBED) 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 [facility] TROP-I HIGH [id number] 06:39:00 Test Item Value Reference Range Interpretation Comments TROP-I HIGH 521 ng/L 0-34 HH CAUTION: Units of the SENSITIVITY (test current te st methodology code = TROPIHS) (ng/L) diffe rfrom the prior test meth odology (ng/mL) by a fa ctor of 1000. 99t h Percentile Uppe r Reference Limit (URL): Fe males: 34 ng/LMales: 54 n g/L In order to distin [facility] acute elevations of h igh sensitivitytrop onin from other clinical conditions, the FourthUnive rsal Definition of M yocardial Infarction stressesclinica l assessment and the demonstration o f a rise and/orfall in s erial troponin result s above the URL. These resu lts were obtained using [employer] IM TnI Hreagent. Results from [facility] not becompared to o ne another as quantitative results and URLs mayvar y by method. TROP-I HIGH [id number] 04:48:00 Test Item Value Reference Range Interpretation Comments TROP-I HIGH 474 ng/L 0-34 HH CAUTION: Units of the SENSITIVITY (test current [email or web address] st methodology code = TROPIHS) (ng/L) diffe rfrom the prior test meth odology (ng/mL) by a fa ctor of 1000. 99t h Percentile Uppe r Reference Limit (URL): Fe males: 34 ng/LMales: 54 n g/L In order to distin [facility] acute elevations of h igh sensitivitytrop onin from other clinical conditions, the FourthUnive rsal Definition of M yocardial Infarction stressesclinica l assessment and the demonstration o f a rise and/orfall in s erial troponin result s above the URL. These resu lts were obtained using [employer] IM TnI Hreagent. Results from [employer] s hould not becompared to o ne another as quantitative results and URLs mayvar y by method. TROP-I HIGH [id number] 01:34:00 Test Item Value Reference Range Interpretation Comments TROP-I HIGH 470 ng/L 0-34 HH CAUTION: Units of the SENSITIVITY (test current te st methodology code = TROPIHS) (ng/L) diffe rfrom the prior test meth odology (ng/mL) by a fa ctor of 1000. 99t h Percentile Uppe r Reference Limit (URL): Fe males: 34 ng/LMales: 54 n g/L In order to distin guish acute elevations of h igh sensitivitytrop onin from other clinical conditions, the FourthUnive rsal Definition of M yocardial Infarction stressesclinica l assessment and the demonstration o f a rise and/orfall in s erial troponin result s above the URL. These resu lts were obtained using [employer] IM TnI Hreagent. Results from di fferent methodologies s hould not becompared to o ne another as quantitative results and URLs mayvar y by method. LIPOPROTEIN [id number] 21:48:00 Test Item Value Reference Range Interpretation Comments LIPOPROTEIN LDL 96.0 mg/dL 0-100 N <100 OPTIMAL 100-129 NEAR (test code = LDL) OPTIMAL/AB OVE [id number] 89 HIGH>KS=942 VANDANA Y HIGH*Guidelines provided by the National Cholesterol EducationProgra m Adult Treatment Panel III PROTHROMBIN [id number] 21:41:00 Test Item Value Reference Range Interpretation Comments PROTHROMBIN TIME 11.1 SECONDS 9.3-12.9 N PATIENT (test code = PTP) INTERNATIONAL NORMAL 1.0 0.8-1.2 N TARGET INR BY RATIO (test code = INDICATIO N Indication INR) INR1. Prophylax is of venous thrombos is 2.0 - 3.0 (orthoped ic surgery), Proph ylaxis of venous throm bosis (other than hig h-risk surgery), Treat ment of Deep Vein Thrombosis/Pulm onary Embolism, Preve ntion of systemic emb olism - Tissue heart va lves, Acute Myocardia l Infarction (to prevent systemic emboli sm), Valvular heart disease, Atrial Fibrillation, Bileaflet mecha nical valve in aortic position.2. Mec hanical prosthetic valv es (high risk), 2. 5 - 3.5 Presence of Lup us Anticoagulant o r Antiphospholipi d Antibodies, Pre vention of systemic emb olism - Acute Myocardia l Infarction (to prevent recurre nt infarct). THROMBOPLASTIN TIME [id number] 21:41:00 Test Item Value Reference Range Interpretation Comments THROMBOPLASTIN TIME 27.0 Seconds 25.0-39.5 N Therape utic Range: PARTIAL (test code = 50.4 - 88.3 Seconds PTT) Effective 03/10/2019 BASIC METABOLIC [id number] 21:31:00 Test Item Value Reference Range Interpretation Comments SODIUM (test code = 139 mEq/L 134-147 N NA) POTASSIUM (test code 4.5 mEq/L 3.4-5.0 N = K) CHLORIDE (test code 99 mEq/L 100-108 L = CL) CARBON DIOXIDE (test 30 mEq/l 21-33 N code = CO2) ANION GAP (test code 15 0-20 N = GAP) GLUCOSE (test code = 104 mg/dL 70-110 N GLU) BLOOD UREA NITROGEN 21 mg/dL 7-18 H (test code = BUN) GLOMERULAR 12.9 80-90 L The Glomerular FILTRATION RATE Filtration R ate is a (test code = GFR) calculated parameterbased on serum Creatinine, pat ient age and sex. GFR va luesless than 60 mL/min/ 1.73 square meters a re indicative ofCh ronic Kidney Disease. Values less than 15 mL/min/1.73squa re meters indicate Kidney failure. The calculation forGFR is based on the CKD-EPI (2020) calculat ion. This formulais race indifferent and is the recommended for cassidy for GFRby the [facility] on for Adults.The GFR will not calculate if th e sex is unknown or if thepatient's ag e is <18 years. CREATININE (test 3.8 mg/dL 0.6-1.3 H code = CREAT) CALCIUM (test code = 8.2 mg/dL 8.0-10.5 N CA) HEPATIC FUNCTION [id number] 21:31:00 Test Item Value Reference Range Interpretation Comments TOTAL PROTEIN (test code = PROT) 8.3 g/dL 6.4-8.2 H ALBUMIN (test code = ALB) 3.60 g/dL 3.4-5.0 N BILIRUBIN TOTAL (test code = 0.40 mg/dL 0.0-1.0 N BILT) BILIRUBIN DIRECT (test code = 0.10 MG/DL 0.0-0.30 N BILD) BILIRUBIN INDIRECT (test code = 0.30 MG/DL BILIND) SGOT/AST (test code = AST) 39 IUnit/L 15-37 H SGPT/ALT (test code = ALT) 46 IUnit/L 30-65 N ALKALINE PHOSPHATASE TOTAL (test 357 IUnit/L 20-125 H code = ALKP) TROP-I HIGH [id number] 21:31:00 Test Item Value Reference Range Interpretation Comments TROP-I HIGH 472 ng/L 0-34 HH Critical result called to SENSITIVITY (test IRAIDA QU IGG, RNby code = TROPIHS) G.LAB.ATD at 213002/11/23Neugenio aguirre ead back result and tech confirmed it's correct? Y ESCAUTION: Units of the cu rrent test methodology (ng /L) differfrom the prior test methodology (ng /mL) by a factor of 1000. 99t h Percentile Uppe r Reference Limit (URL): Fe males: 34 ng/LMales: 54 n g/L In order to distin [facility] acute elevations of h igh sensitivitytrop onin from other clinical conditions, the FourthUnive rsal Definition of M yocardial Infarction stressesclinica l assessment and the demonstration o f a rise and/orfall in s erial troponin result s above the URL. These resu lts were obtained using [employer] IM TnI Hreagent. Results from di abida turcios s hould not becompared to o ne another as quantitative results and URLs mayvar y by method. B-TYPE NATRIURETIC [id number] 21:30:00 Test Item Value Reference Range Interpretation Comments B-TYPE NATRIURETIC PEPTIDE (test 626.0 PG/ML 0-100 H code = BNP) [id number] 21:25:00 Test Item Value Reference Range Interpretation Comments AMMONIA (test code = AMM) 39 umol/L 11-35 H CBC W/AUTO [id number] 21:07:00 Test Item Value Reference Range Interpretation Comments WHITE BLOOD CELL (test code = 7.5 x10 3/uL 4.5-11.0 N WBC) RED BLOOD CELL (test code = 5.11 x10 6/uL 3.54-5.02 H RBC) HEMOGLOBIN (test code = HGB) 12.9 g/dL 11.0-15.0 N HEMATOCRIT (test code = HCT) 41.8 % 33.0-45.0 N MEAN CELL VOLUME (test code = 81.8 fL 81.0-99.0 N MCV) MEAN CELL HGB (test code = MCH) 25.2 pg 27.0-33.0 L MEAN CELL HGB CONCETRATION 30.9 g/dL 33.0-37.0 L (test code = MCHC) RED CELL DISTRIBUTION WIDTH CV 20.3 % 11.5-14.5 H (test code = RDW) RED CELL DISTRIBUTION WIDTH SD 59.7 fL 37.0-54.0 H (test code = RDW-SD) PLATELET COUNT (test code = 254 x10 3/uL 150-400 N PLT) MEAN PLATELET VOLUME (test code 9.1 fL 7.0-9.0 H = MPV) NEUTROPHIL % (test code = NT%) 83.0 % 56.0-77.0 H IMMATURE GRANULOCYTE % (test 0.4 % 0.0-2.0 N code = IG%) LYMPHOCYTE % (test code = LY%) 11.0 % 14.0-32.0 L MONOCYTE % (test code = MO%) 4.8 % 4.8-9.0 N EOSINOPHIL % (test code = EO%) 0.1 % 0.3-3.7 L BASOPHIL % (test code = BA%) 0.7 % 0.0-2.0 N NUCLEATED RBC % (test code = 0.0 % 0-0 N NRBC%) NEUTROPHIL # (test code = NT#) 6.26 x10 3/uL 2.0-7.6 N IMMATURE GRANULOCYTE # (test 0.03 x10 3/uL 0.00-0.03 N code = IG#) LYMPHOCYTE # (test code = LY#) 0.83 x10 3/uL 1.0-3.8 L MONOCYTE # (test code = MO#) 0.36 x10 3/uL 0.1-0.8 N EOSINOPHIL # (test code = EO#) 0.01 x10 3/uL 0.0-0.2 N BASOPHIL # (test code = BA#) 0.05 x10 3/uL 0.0-0.2 N NUCLEATED RBC # (test code = 0.00 x10 3/uL 0.0-0.1 N NRBC#) MANUAL DIFF REQUIRED (test code NO = MDIFF) - XR CHEST 1 [id number] 00:00:00 [facility] 1960 Sex: F FAX:Harley Pineda MD [place]: [address]: REG Name: CITLALY DAVIS [facility] : 1960 Age/S: 62/F [address] [place] [address] Blvd Unit #: [id number] Loc: [place] [address] Phys: Harley Pineda MD Acct: [id number] Dis Date: Status: REG ER PHONE #: [phone] Exam Date: 02/11/20232115 FAX #: [phone] Reason: Chest Pain EXAMS: CPT CODE: [id number] XR CHEST 1 V [id number] PROCEDURE INFORMATION: Exam: XR Chest Exam date and time: 02/11/2023 8:58 PM Age: 62 years old Clinical indication: Other: Chest pain TECHNIQUE: Imaging protocol: Radiologic exam of the chest. Views: 1 view. COMPARISON: CR XR CHEST 1V 12/11/2022 8:02 AM FINDINGS: Lungs: No consolidation. Pleural spaces: No pleural effusion. No pneumothorax. Heart/Mediastinum: Cardiomegaly. Bones/joints: High riding humeral heads consistent with chronic rotator cuff tears. Soft tissues: Left axillary and subclavian region vascular stents. IMPRESSION: Cardiomegaly. at 2144 Reported and signed by: Evans Orozco M.D. CC: Harley Pineda MD Technologist: RT Obed(R) Trnscrd Date/Time/By: 02/11/2023 (2144) : By: [email or web address] Orig Print D/T: S: 02/11/2023 (2144) PAGE 1 Signed Report- CT HEAD/BRAIN W/O [id number] 00:00:00[facility] : 1960 Sex: F Name:CITLALY DAVIS [facility] [place] [facility] : 1960 Age/S: 62 / F [address] [place] [address] Unit #: [id number] Loc: [place] [address] Phys: Harley Pineda MD Acct: [id number] Dis Date: Status: REG ER PHONE#: [phone] Exam Date: 02/11/20232154 FAX #: [phone] Reason: ams EXAMS: CPT CODE: [id number] CT HEAD/BRAIN W/O CONT [id number] PROCEDURE INFORMATION: Exam: CT Head Without Contrast Exam date and time: 02/11/2023 9:47 PM Age: 62 years old Clinical indication: Altered mental status/memory loss; Additional info: AMS TECHNIQUE: Imaging protocol: Computed tomography of the head without contrast. Radiation optimization: All CT scans at this facility use at least one of these dose optimization techniques: automated exposure control; mA and/or kV adjustment per patient size (includes targeted exams where dose is matched to clinical indication); or iterative reconstruction. REPORTING DATA: Count of CT and Cardiac NM exams in prior 12 months: This patient has received [address] and 0 known cardiac nuclear medicine studies in the 12 months prior to the current study. COMPARISON: No relevant prior studies available. FINDINGS: Brain: There is mild-moderate chronic ischemic deep white matter disease. Noevidence of extra-axial fluid collection or midline shift. Cerebral ventricles: No ventriculomegaly.Paranasal sinuses: Visualized sinuses are unremarkable. No fluid levels. Mastoid air cells: Visualized mastoid air cells are well aerated. Bones/joints: Unremarkable. No acute fracture. Soft tissues: Unremarkable. IMPRESSION: 1. Mild-moderate chronic ischemic deep white matter disease. 2. No acute intr acranial pathology. at 2236 Reported and signed by: Harpal Mullins M.D. CC: Harley Pineda MD Technologist:King Rider, RT(R)(CT) CTDI: DLP: Trnscb Date/Time: 02/11/2023 (2235) [email or web address] Orig Print D/T: S: 02/11/2023 (3709) PAGE 1 Signed [id number] 14:08:00 Test Item Value Reference Range Interpretation Comments SURGICAL (test code = SR) R UN DATE: 12/20/22 [place] [facility] PAGE 1 RUN TIME: 1408 Specimen Inquiry RUN USER: INTERFACE P ATIENT: CITLALY DAVIS LOC: JÚ[place] U #: [id number] AGE/SX: 62/F ROOM: [facility] RE12/06/22REG DR: Vero Michaels MD : 62 BED: 1 DIS: STATUS: ADM IN TLOC: SPEC #: [id number] RECD: 12/19/22 STATUS: TIMA REQ #: [id number] RADHA: 12/18/22- SUBM DR: Elise Talamantes MD ENTERED: 12/19/22 SP TYPE: SURGICAL OTHR DR: No Primary or Family Physician Self Referred Aldeiri,Molham MD ArroyoEverton MD, Charlie C MD Guidry, Maria T MD Okundaye, Ebima C MD Omitogtravon,Flavio Talamantes,In S MDORDERED: 20212, ANATOMIC SPEC CODES: [id number] - LEG, NOS COPIES TO: No Primary or Family Physician Self Referred Nai Arredondo MD [address] [place] [address] Everton Arroyo MD [address] [place] [address] Suresh Ventura MD [address] [place] [address] Eva Pugh MD [address] [place] [address] [place] [address] [facility] [address] [place] [address] CONTINUED ON NEXT PAGE R UN DATE: 12/20/22 [facility] PAGE 2 RUN TIME: 1408 Specimen Inquiry RUN USER: INTERFACE S PEC #: [id number] PATIENT: CITLALY DAVIS #[id number] (Continued) COPIES TO: (Continued) [place] [address] [place] [address] Yo,In S [address] [place] [address] [address] [place], [place] [address] PROCEDURES: [id number] (12/19/22-1114) TISSUES: LEG, NOS - LEFT LOWER CLINICAL HISTORY SAME FINAL DIAGNOSIS Soft tissue, left lower leg, debridement: Gangrenous necrosis with extensive mixedinflammation and adherent necrotic debris; bacterial colonies are identified within thetissue, fibrosis and mixed inflammation. GROSS DESCRIPTION Received in formalin labeled left lower leg eschar is a 9 x 4 x 0.4 cm portion of thicknecrotic black tissue with adherent fibrinous exudate submitted (A)-(C). Technical component performed at [facility],[address] [place] [address], [place] [address] Unless gross only, the diagnosis is based upon microscopic examination.Immunohistochemistr y: This test was developed and its performance characteristicsdetermined by this laboratory. It has not been approved nor does it need approvalby the [place] FDA. Appropriate positive and negative controls are reviewed and judgedto be acceptable. This laboratory is certified under the Clinical Laboratory ImprovementAmendments (CLIA-88) as qualified to perform high complexity clinical laboratory testing. CLINICAL INFORMATION LEFT LOWER LEG WOUND ---- Signed SIGNATURE ON FILE Alfredo Martin 12/20/22 1408 END OF REPORT GLUCOSE [id number] 12:04:00 Test Item Value Reference Range Interpretation Comments GLUCOSE BEDSIDE (test 170 MG/DL 70-110 H Perfor med by certified code = GLUBED) 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 [facility] GLUCOSE [id number] 07:54:00 Test Item Value Reference Range Interpretation Comments GLUCOSE BEDSIDE (test 97 MG/DL 70-110 N Perfor med by certified code = GLUBED) 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 [facility] GLUCOSE [id number] 07:11:00 Test Item Value Reference Range Interpretation Comments GLUCOSE BEDSIDE (test 37 MG/DL 70-110 L Perfor med by certified code = GLUBED) 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 [facility] GLUCOSE [id number] 22:13:00 Test Item Value Reference Range Interpretation Comments GLUCOSE BEDSIDE (test 155 MG/DL 70-110 H Perfor med by certified code = GLUBED) 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 [facility] GLUCOSE [id number] 16:33:00 Test Item Value Reference Range Interpretation Comments GLUCOSE BEDSIDE (test 252 MG/DL 70-110 H Perfor med by certified code = GLUBED) 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 [facility] BASIC METABOLIC [id number] 14:42:00 Test Item Value Reference Range Interpretation Comments SODIUM (test code = 140 mEq/L 134-147 N NA) POTASSIUM (test code 3.6 mEq/L 3.4-5.0 = K) CHLORIDE (test code 103 mEq/L 100-108 N = CL) CARBON DIOXIDE (test 32 mEq/l 21-33 code = CO2) ANION GAP (test code 9 0-20 N = GAP) GLUCOSE (test code = 150 mg/dL 70-110 H GLU) BLOOD UREA NITROGEN 17 mg/dL 7-18 (test code = BUN) GLOMERULAR 24.9 80-90 L The Glomerular FILTRATION RATE Filtration R ate is a (test code = GFR) calculated parameterbased on serum Creatinine, pat ient age and sex. GFR va luesless than 60 mL/min/ 1.73 square meters a re indicative ofCh ronic Kidney Disease. Values less than 15 mL/min/1.73squa re meters indicate Kidney failure. The calculation forGFR is based on the CKD-EPI (2020) calculat ion. This formulais race indifferent and is the recommended for cassidy for GFRby the Natio nal Kidney Foundati on for Adults.The GFR will not calculate if th e sex is unknown or if thepatient's ag e is <18 years. CREATININE (test 2.2 mg/dL 0.6-1.3 H code = CREAT) CALCIUM (test code = 8.3 mg/dL 8.0-10.5 N CA) COMMENTS: POST DIALYSISGLUCOSE [id number] 13:42:00 Test Item Value Reference Range Interpretation Comments GLUCOSE BEDSIDE (test 142 MG/DL 70-110 H Perfor med by certified code = GLUBED) 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 [facility] RENAL FUNCTION [id number] 10:43:00 Test Item Value Reference Range Interpretation Comments SODIUM (test code = 135 mEq/L 134-147 N NA) POTASSIUM (test code 6.6 mEq/L 3.4-5.0 HH Critica l result called = K) to [facility] by G.LAB.RE at 103 9 12/19/22Nurse r ead back result and tech confirmed it's correct? YES CHLORIDE (test code = 99 mEq/L 100-108 L CL) CARBON DIOXIDE (test 24 mEq/l 21-33 N code = CO2) ANION GAP (test code 19 0-20 N = GAP) GLUCOSE (test code = 141 mg/dL 70-110 H GLU) BLOOD UREA NITROGEN 64 mg/dL 7-18 H (test code = BUN) GLOMERULAR FILTRATION 5.8 80-90 L The Gl omerular RATE (test code = Filtration Rate is a GFR) calculated parameterbased on serum Creatinine, pat ient age and sex. GFR va luesless than 60 mL/min/ 1.73 square meters a re indicative ofCh ronic Kidney Disease. Values less than 15 mL/min/1.73squa re meters indicate Kidney failure. The calculation for GFR is based on the CK D-EPI (2020) calculat ion. This formulais race indifferent and is the recommended for cassidy for GFRby the Natio nal Kidney Foundati on for Adults.The GFR will not calculate if th e sex is unknown or if thepatient's ag e is <18 years. CREATININE (test code 7.4 mg/dL 0.6-1.3 H = CREAT) ALBUMIN (test code = 2.50 g/dL 3.4-5.0 L ALB) CALCIUM (test code = 8.0 mg/dL 8.0-10.5 N CA) PHOSPHOROUS (test 7.9 MG/DL 2.5-4.9 H code = PHOS) [id number] 12/19/22 0813GLUCOSE [id number] 07:57:00 Test Item Value Reference Range Interpretation Comments GLUCOSE BEDSIDE (test 106 MG/DL 70-110 N [facility] med by certified code = GLUBED) 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 [facility] BASIC METABOLIC [id number] 23:17:00 Test Item Value Reference Range Interpretation Comments SODIUM (test code = NA/ABG) 137 mmol/L 134-147 N POTASSIUM (test code = K/ABG) 5.6 mmol/L 3.4-5.0 H CHLORIDE (test code = CL/ABG) 104 mmol/L 100-108 N CREATININE ABG (test code = 6.0 mg/dL 0.6-1.0 H CREAABG) POC IONIZED CALCIUM (test code = 1.15 MMOL/L 1.12-1.32 N POCCA) POC GLUCOSE (test code = POCGLU) 211 MG/DL 70-110 H HEMOGLOBIN [id number] 23:17:00 Test Item Value Reference Range Interpretation Comments HEMOGLOBIN ABG (test code = HGB/ABG) 6.9 G/DL 11.0-15.0 L [id number] 23:17:00 Test Item Value Reference Range Interpretation Comments HEMATOCRIT (test code = HCT/ABG) 20 % 33.0-45.0 L POC VENOUS BLOOD [id number] 23:17:00 Test Item Value Reference Range Interpretation Comments POC VENOUS BLOOD GAS PH (test 7.379 7.33-7.45 N code = POCPHV) POC VENOUS BLOOD GAS PCO2 (test 45.8 mmHg 43-47 N code = [id number]) POC VENOUS BLOOD GAS PO2 (test 24.3 mmHG 10-50 N code = HMWUC7V) POC TCO2 VENOUS (test code = 28.4 YXTYWC1L) POC HCO3 VENOUS (test code = 27.0 MMOL/L 22-27 N [id number]) POC BASE EXCESS VENOUS (test code 1.7 MMOL/L -4.0-4.0 N = POCBEV) POC O2 SATURATION VENOUS (test 41.6 % 60-80 L code = LJAS2EU) GLUCOSE [id number] 20:33:00 Test Item Value Reference Range Interpretation Comments GLUCOSE BEDSIDE (test 310 MG/DL 70-110 H Perfor med by certified code = GLUBED) 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 [facility] GLUCOSE [id number] 16:55:00 Test Item Value Reference Range Interpretation Comments GLUCOSE BEDSIDE (test 48 MG/DL 70-110 L Perfor med by certified code = GLUBED) 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 [facility] GLUCOSE [id number] 16:18:00 Test Item Value Reference Range Interpretation Comments GLUCOSE BEDSIDE (test 87 MG/DL 70-110 N Perfor med by certified code = GLUBED) 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 [facility] GLUCOSE [id number] 15:54:00 Test Item Value Reference Range Interpretation Comments GLUCOSE BEDSIDE (test 19 MG/DL 70-110 L Perfor med by certified code = GLUBED) 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 [facility] BASIC METABOLIC [id number] 14:57:00 Test Item Value Reference Range Interpretation Comments SODIUM (test code = NA/ABG) 135 mmol/L 134-147 N POTASSIUM (test code = K/ABG) 6.5 mmol/L 3.4-5.0 HH CHLORIDE (test code = CL/ABG) 102 mmol/L 100-108 N CREATININE ABG (test code = 6.1 mg/dL 0.6-1.0 H CREAABG) POC IONIZED CALCIUM (test code = 1.10 MMOL/L 1.12-1.32 L POCCA) POC GLUCOSE (test code = POCGLU) 81 MG/DL 70-110 N HEMOGLOBIN [id number] 14:57:00 Test Item Value Reference Range Interpretation Comments HEMOGLOBIN ABG (test code = HGB/ABG) 7.3 G/DL 11.0-15.0 L [id number] 14:57:00 Test Item Value Reference Range Interpretation Comments HEMATOCRIT (test code = HCT/ABG) 22 % 33.0-45.0 L POC VENOUS BLOOD [id number] 14:57:00 Test Item Value Reference Range Interpretation Comments POC VENOUS BLOOD GAS PH (test 7.430 7.33-7.45 N code = POCPHV) POC VENOUS BLOOD GAS PCO2 (test 39.4 mmHg 43-47 L code = ZPYPXM9M) POC VENOUS BLOOD GAS PO2 (test 38.4 mmHG 10-50 N code = UDLTI1P) POC TCO2 VENOUS (test code = 27.4 HYWUVL7H) POC HCO3 VENOUS (test code = 26.2 MMOL/L 22-27 N JRQZXX1M) POC BASE EXCESS VENOUS (test code 1.7 MMOL/L -4.0-4.0 N = POCBEV) POC O2 SATURATION VENOUS (test 74.3 % 60-80 N code = XDVX5DT) BASIC METABOLIC [id number] 14:07:00 Test Item Value Reference Range Interpretation Comments SODIUM (test code = 137 mEq/L 134-147 N NA) POTASSIUM (test code 6.5 mEq/L 3.4-5.0 HH Critica l result called = K) to [facility] GSirishaLAB.[facility] at 14 12/18/22Nurse r ead back result and tech confirmed it's correct? YES CHLORIDE (test code 101 mEq/L 100-108 N = CL) CARBON DIOXIDE (test 28 mEq/l 21-33 N code = CO2) ANION GAP (test code 15 0-20 N = GAP) GLUCOSE (test code = 86 mg/dL 70-110 N GLU) BLOOD UREA NITROGEN 53 mg/dL 7-18 H (test code = BUN) GLOMERULAR 7.8 80-90 L The Glomerular FILTRATION RATE Filtration R ate is a (test code = GFR) calculated parameterbased on serum Creatinine, pat ient age and sex. GFR va luesless than 60 mL/min/ 1.73 square meters a re indicative ofCh ronic Kidney Disease. Values less than 15 mL/min/1.73squa re meters indicate Kidney failure. The calculation forGFR is based on the CKD-EPI (2020) calculat ion. This formulais race indifferent and is the recommended for cassidy for GFRby the Natio nal Kidney Foundati on for Adults.The GFR will not calculate if th e sex is unknown or if thepatient's ag e is <18 years. CREATININE (test 5.8 mg/dL 0.6-1.3 H code = CREAT) CALCIUM (test code = 8.3 mg/dL 8.0-10.5 N CA) RENAL FUNCTION [id number] 13:13:00 Test Item Value Reference Range Interpretation Comments SODIUM (test code = 137 mEq/L 134-147 N NA) POTASSIUM (test code 6.6 mEq/L 3.4-5.0 HH Critica l result called = K) to [facility] GSirishaLAB.[facility] at 13 12/18/22Neugenio r ead back result and tech confirmed it's correct? YES CHLORIDE (test code = 101 mEq/L 100-108 N CL) CARBON DIOXIDE (test 26 mEq/l 21-33 N code = CO2) ANION GAP (test code 17 0-20 N = GAP) GLUCOSE (test code = 95 mg/dL 70-110 GLU) BLOOD UREA NITROGEN 47 mg/dL 7-18 H (test code = BUN) GLOMERULAR FILTRATION 7.9 80-90 L The Gl omerular RATE (test code = Filtration Rate is a GFR) calculated parameterbased on serum Creatinine, pat ient age and sex. GFR va luesless than 60 mL/min/ 1.73 square meters a re indicative ofCh ronic Kidney Disease. Values less than 15 mL/min/1.73squa re meters indicate Kidney failure. The calculation for GFR is based on the CK D-EPI (2020) calculat ion. This formulais race indifferent and is the recommended for cassidy for GFRby the Natio nal Kidney Foundati on for Adults.The GFR will not calculate if th e sex is unknown or if thepatient's ag e is <18 years. CREATININE (test code 5.7 mg/dL 0.6-1.3 H = CREAT) ALBUMIN (test code = 2.70 g/dL 3.4-5.0 L ALB) CALCIUM (test code = 8.7 mg/dL 8.0-10.5 N CA) PHOSPHOROUS (test 6.4 MG/DL 2.5-4.9 H code = PHOS) CBC W/AUTO [id number] 12:48:00 Test Item Value Reference Range Interpretation Comments WHITE BLOOD CELL (test code = 9.9 x10 3/uL 4.5-11.0 N WBC) RED BLOOD CELL (test code = 2.57 x10 6/uL 3.54-5.02 L RBC) HEMOGLOBIN (test code = HGB) 6.9 g/dL 11.0-15.0 L HEMATOCRIT (test code = HCT) 21.8 % 33.0-45.0 L MEAN CELL VOLUME (test code = 84.8 fL 81.0-99.0 N MCV) MEAN CELL HGB (test code = MCH) 26.8 pg 27.0-33.0 L MEAN CELL HGB CONCETRATION 31.7 g/dL 33.0-37.0 L (test code = MCHC) RED CELL DISTRIBUTION WIDTH CV 19.3 % 11.5-14.5 H (test code = RDW) RED CELL DISTRIBUTION WIDTH SD 58.9 fL 37.0-54.0 H (test code = RDW-SD) PLATELET COUNT (test code = 380 x10 3/uL 150-400 N PLT) MEAN PLATELET VOLUME (test code 10.5 fL 7.0-9.0 H = MPV) NEUTROPHIL % (test code = NT%) 75.9 % 56.0-77.0 N IMMATURE GRANULOCYTE % (test 0.7 % 0.0-2.0 N code = IG%) LYMPHOCYTE % (test code = LY%) 13.8 % 14.0-32.0 L MONOCYTE % (test code = MO%) 8.6 % 4.8-9.0 N EOSINOPHIL % (test code = EO%) 0.6 % 0.3-3.7 N BASOPHIL % (test code = BA%) 0.4 % 0.0-2.0 N NUCLEATED RBC % (test code = 0.0 % 0-0 N NRBC%) NEUTROPHIL # (test code = NT#) 7.51 x10 3/uL 2.0-7.6 N IMMATURE GRANULOCYTE # (test 0.07 x10 3/uL 0.00-0.03 H code = IG#) LYMPHOCYTE # (test code = LY#) 1.36 x10 3/uL 1.0-3.8 N MONOCYTE # (test code = MO#) 0.85 x10 3/uL 0.1-0.8 H EOSINOPHIL # (test code = EO#) 0.06 x10 3/uL 0.0-0.2 N BASOPHIL # (test code = BA#) 0.04 x10 3/uL 0.0-0.2 N NUCLEATED RBC # (test code = 0.00 x10 3/uL 0.0-0.1 N NRBC#) MANUAL DIFF REQUIRED (test code NO = MDIFF) GLUCOSE [id number] 11:55:00 Test Item Value Reference Range Interpretation Comments GLUCOSE BEDSIDE (test 102 MG/DL 70-110 N [facility] med by certified code = GLUBED) 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 [facility] GLUCOSE [id number] 07:59:00 Test Item Value Reference Range Interpretation Comments GLUCOSE BEDSIDE (test 72 MG/DL 70-110 N [facility] med by certified code = GLUBED) 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 [facility] GLUCOSE [id number] 20:43:00 Test Item Value Reference Range Interpretation Comments GLUCOSE BEDSIDE (test 231 MG/DL 70-110 H Perfor med by certified code = GLUBED) 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 [facility] CBC W/AUTO [id number] 16:57:00 Test Item Value Reference Range Interpretation Comments WHITE BLOOD CELL (test code = 12.5 x10 3/uL 4.5-11.0 H WBC) RED BLOOD CELL (test code = 2.63 x10 6/uL 3.54-5.02 L RBC) HEMOGLOBIN (test code = HGB) 7.1 g/dL 11.0-15.0 L HEMATOCRIT (test code = HCT) 21.8 % 33.0-45.0 L MEAN CELL VOLUME (test code = 82.9 fL 81.0-99.0 N MCV) MEAN CELL HGB (test code = MCH) 27.0 pg 27.0-33.0 N MEAN CELL HGB CONCETRATION 32.6 g/dL 33.0-37.0 L (test code = MCHC) RED CELL DISTRIBUTION WIDTH CV 18.9 % 11.5-14.5 H (test code = RDW) RED CELL DISTRIBUTION WIDTH SD 57.1 fL 37.0-54.0 H (test code = RDW-SD) PLATELET COUNT (test code = 382 x10 3/uL 150-400 N PLT) MEAN PLATELET VOLUME (test code 10.4 fL 7.0-9.0 H = MPV) NEUTROPHIL % (test code = NT%) 74.6 % 56.0-77.0 N IMMATURE GRANULOCYTE % (test 1.1 % 0.0-2.0 N code = IG%) LYMPHOCYTE % (test code = LY%) 13.2 % 14.0-32.0 L MONOCYTE % (test code = MO%) 10.2 % 4.8-9.0 H EOSINOPHIL % (test code = EO%) 0.6 % 0.3-3.7 N BASOPHIL % (test code = BA%) 0.3 % 0.0-2.0 N NUCLEATED RBC % (test code = 0.0 % 0-0 N NRBC%) NEUTROPHIL # (test code = NT#) 9.29 x10 3/uL 2.0-7.6 H IMMATURE GRANULOCYTE # (test 0.14 x10 3/uL 0.00-0.03 H code = IG#) LYMPHOCYTE # (test code = LY#) 1.65 x10 3/uL 1.0-3.8 N MONOCYTE # (test code = MO#) 1.27 x10 3/uL 0.1-0.8 H EOSINOPHIL # (test code = EO#) 0.07 x10 3/uL 0.0-0.2 N BASOPHIL # (test code = BA#) 0.04 x10 3/uL 0.0-0.2 N NUCLEATED RBC # (test code = 0.00 x10 3/uL 0.0-0.1 N NRBC#) MANUAL DIFF REQUIRED (test code NO = MDIFF) RENAL FUNCTION [id number] 16:11:00 Test Item Value Reference Range Interpretation Comments SODIUM (test code = 135 mEq/L 134-147 N NA) POTASSIUM (test code 7.2 mEq/L 3.4-5.0 HH Critica l result called = K) to [facility] at 16 12/17/22Nurse vita lugo back result and tech confirmed it's correct? YES CHLORIDE (test code = 101 mEq/L 100-108 N CL) CARBON DIOXIDE (test 23 mEq/l 21-33 N code = CO2) ANION GAP (test code 18 0-20 N = GAP) GLUCOSE (test code = 64 mg/dL 70-110 L GLU) BLOOD UREA NITROGEN 72 mg/dL 7-18 H (test code = BUN) GLOMERULAR FILTRATION 5.6 80-90 L The Gl omerular RATE (test code = Filtration Rate is a GFR) calculated parameterbased on serum Creatinine, pat ient age and sex. GFR va luesless than 60 mL/min/ 1.73 square meters a re indicative ofCh ronic Kidney Disease. Values less than 15 mL/min/1.73squa re meters indicate Kidney failure. The calculation for GFR is based on the CK D-EPI (2020) calculat ion. This formulais race indifferent and is the recommended for cassidy for GFRby the Nat nal Kidney Foundati on for Adults.The GFR will not calculate if th e sex is unknown or if thepatient's ag e is <18 years. CREATININE (test code 7.6 mg/dL 0.6-1.3 H = CREAT) ALBUMIN (test code = 2.60 g/dL 3.4-5.0 L ALB) CALCIUM (test code = 8.6 mg/dL 8.0-10.5 N CA) PHOSPHOROUS (test 6.8 MG/DL 2.5-4.9 H code = PHOS) GLUCOSE [id number] 16:04:00 Test Item Value Reference Range Interpretation Comments GLUCOSE BEDSIDE (test 78 MG/DL 70-110 N Per[facility] med by certified code = GLUBED) 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 [facility] GLUCOSE [id number] 12:15:00 Test Item Value Reference Range Interpretation Comments GLUCOSE BEDSIDE (test 125 MG/DL 70-110 H Perfor med by certified code = GLUBED) 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 [facility] GLUCOSE [id number] 09:41:00 Test Item Value Reference Range Interpretation Comments GLUCOSE BEDSIDE (test 124 MG/DL 70-110 H Perfor med by certified code = GLUBED) 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 [facility] GLUCOSE [id number] 00:19:00 Test Item Value Reference Range Interpretation Comments GLUCOSE BEDSIDE (test 221 MG/DL 70-110 H Perfor med by certified code = GLUBED) 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 [facility] GLUCOSE [id number] 21:15:00 Test Item Value Reference Range Interpretation Comments GLUCOSE BEDSIDE (test 172 MG/DL 70-110 H Perfor med by certified code = GLUBED) 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 [facility] GLUCOSE [id number] 16:11:00 Test Item Value Reference Range Interpretation Comments GLUCOSE BEDSIDE (test 136 MG/DL 70-110 H Perfor med by certified code = GLUBED) 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 [facility] GLUCOSE [id number] 11:53:00 Test Item Value Reference Range Interpretation Comments GLUCOSE BEDSIDE (test 235 MG/DL 70-110 H Perfor med by certified code = GLUBED) 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 [facility] GLUCOSE [id number] 08:28:00 Test Item Value Reference Range Interpretation Comments GLUCOSE BEDSIDE (test 163 MG/DL 70-110 H Perfor med by certified code = GLUBED) 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 [facility] GLUCOSE [id number] 22:53:00 Test Item Value Reference Range Interpretation Comments GLUCOSE BEDSIDE (test 189 MG/DL 70-110 H Perfor med by certified code = GLUBED) 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 [facility] GLUCOSE [id number] 16:13:00 Test Item Value Reference Range Interpretation Comments GLUCOSE BEDSIDE (test 126 MG/DL 70-110 H Perfor med by certified code = GLUBED) 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 [facility] GLUCOSE [id number] 11:56:00 Test Item Value Reference Range Interpretation Comments GLUCOSE BEDSIDE (test 267 MG/DL 70-110 H Perfor med by certified code = GLUBED) 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 [facility] GLUCOSE [id number] 08:46:00 Test Item Value Reference Range Interpretation Comments GLUCOSE BEDSIDE (test 115 MG/DL 70-110 H Perfor med by certified code = GLUBED) 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 [facility] GLUCOSE [id number] 16:48:00 Test Item Value Reference Range Interpretation Comments GLUCOSE BEDSIDE (test 242 MG/DL 70-110 H Perfor med by certified code = GLUBED) 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 [facility] CBC W/AUTO [id number] 12:17:00 Test Item Value Reference Range Interpretation Comments WHITE BLOOD CELL 11.7 x10 3/uL 4.5-11.0 H (test code = WBC) RED BLOOD CELL (test 2.93 x10 6/uL 3.54-5.02 L code = RBC) HEMOGLOBIN (test code 7.8 g/dL 11.0-15.0 L = HGB) HEMATOCRIT (test code 24.5 % 33.0-45.0 L = HCT) MEAN CELL VOLUME 83.6 fL 81.0-99.0 N (test code = MCV) MEAN CELL HGB (test 26.6 pg 27.0-33.0 L code = MCH) MEAN CELL HGB 31.8 g/dL 33.0-37.0 L CONCETRATION (test code = MCHC) RED CELL DISTRIBUTION 18.0 % 11.5-14.5 H WIDTH CV (test code = RDW) RED CELL DISTRIBUTION 54.1 fL 37.0-54.0 H WIDTH SD (test code = RDW-SD) PLATELET COUNT (test 371 x10 3/uL 150-400 N code = PLT) MEAN PLATELET VOLUME 10.2 fL 7.0-9.0 H (test code = MPV) NEUTROPHIL % (test 64.9 % 56.0-77.0 N code = NT%) LYMPHOCYTE % (test 16.7 % 14.0-32.0 N code = LY%) NEUTROPHIL # (test 7.62 x10 3/uL 2.0-7.6 H code = NT#) LYMPHOCYTE # (test 1.96 x10 3/uL 1.0-3.8 N code = LY#) MANUAL DIFF REQUIRED NO SLIDE R NGUYEN, (test code = MDIFF) CONSISTE NT WITH AUTO DIFF. IMMATURE GRANULOCYTE 5.9 % 0.0-2.0 H % (test code = IG%) MONOCYTE % (test code 11.6 % 4.8-9.0 H = MO%) EOSINOPHIL % (test 0.6 % 0.3-3.7 N code = EO%) BASOPHIL % (test code 0.3 % 0.0-2.0 N = BA%) NUCLEATED RBC % (test 0.0 % 0-0 N code = NRBC%) IMMATURE GRANULOCYTE 0.69 x10 3/uL 0.00-0.03 H # (test code = IG#) MONOCYTE # (test code 1.36 x10 3/uL 0.1-0.8 H = MO#) EOSINOPHIL # (test 0.07 x10 3/uL 0.0-0.2 N code = EO#) BASOPHIL # (test code 0.04 x10 3/uL 0.0-0.2 N = BA#) NUCLEATED RBC # (test 0.00 x10 3/uL 0.0-0.1 N code = NRBC#) GLUCOSE [id number] 09:40:00 Test Item Value Reference Range Interpretation Comments GLUCOSE BEDSIDE (test 139 MG/DL 70-110 H Perfor med by certified code = GLUBED) 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 [facility] COMPREHENSIVE METABOLIC [id number] 08:08:00 Test Item Value Reference Range Interpretation Comments SODIUM (test code = 137 mEq/L 134-147 N NA) POTASSIUM (test 6.0 mEq/L 3.4-5.0 HH Critical res ult called code = K) to [facility] [place] [facility] at 06 3012/14/22Nurse r ead back result and tech confirmed it's correct? YES CHLORIDE (test code 101 mEq/L 100-108 N = CL) CARBON DIOXIDE 26 mEq/l 21-33 N (test code = CO2) ANION GAP (test 16 0-20 N code = GAP) GLUCOSE (test code 59 mg/dL 70-110 L = GLU) BLOOD UREA NITROGEN 53 mg/dL 7-18 H (test code = BUN) GLOMERULAR 6.3 80-90 L The Glomerular FILTRATION RATE Filtration R ate is a (test code = GFR) calculated parameterbased on serum Creatinin e, patient age and sex. GFR valuesless than 60 mL/min/1.73 squ are meters are garcia cative ofChronic Kidne y Disease. Values less than 15 mL/min/1.73squa re meters indicate Kidney failure. The calculation for GFR is based on the CK D-EPI (2020) calculat ion. This formulais race indifferent and is the recommended for cassidy for GFRby the N [facility] for Ad[facility].The GFR will not calculate i f the sex is unknown or if thepatient's ag e is <18 years. CREATININE (test 6.9 mg/dL 0.6-1.3 H code = CREAT) TOTAL PROTEIN (test 6.6 g/dL 6.4-8.2 N code = PROT) ALBUMIN (test code 2.50 g/dL 3.4-5.0 L = ALB) CALCIUM (test code 9.4 mg/dL 8.0-10.5 N = CA) BILIRUBIN TOTAL < 0.20 mg/dL 0.0-1.0 N (test code = BILT) SGOT/AST (test code 25 IUnit/L 15-37 N = AST) SGPT/ALT (test code 23 IUnit/L 30-65 L = ALT) ALKALINE 212 IUnit/L 20-125 H PHOSPHATASE TOTAL (test code = ALKP) [id number] 08:08:00 Test Item Value Reference Range Interpretation Comments PHOSPHOROUS (test code = PHOS) 5.1 MG/DL 2.5-4.9 H [id number] 08:08:00 Test Item Value Reference Range Interpretation Comments MAGNESIUM (test code = MAG) 2.32 mg/dL 1.80-2.40 N CALCIUM [id number] 08:08:00 Test Item Value Reference Range Interpretation Comments CALCIUM IONIZED (test code = KEISHA) 1.18 MMOL/L 1.09-1.30 N - CT LOWER EXTRM W/O C [id number] 00:00[facility]00 [facility] 1960 Sex: F Name:CITLALY DAVIS [facility] : 1960 Age/S: 62 / F [address] [place] [address] Unit #: [id number] Loc: SAMI Montiel [address] 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 Exam focused on the lower leg. Radiation optimization: All CT scans at this facility use at least one of these dose optimization techniques: automated exposure control; mA and/or kV adjustment per patient size (includes targeted exams where dose is matched to clinical indication); or iterative reconstruction. COMPARISON: No relevant prior studies available. FINDINGS: Limitations: Study is motion degraded. Bones/joints: No definitive CT evidence of acute fracture. No definitive cortical erosion or bone destruction to suggest osteomyelitis. Please note CT is insensitive for detection of osteomyelitis. Moderate-severe degenerative change of the knee. Small knee joint effusion. Soft tissues: Focal lateral sided soft tissue wound with confluent edema. Difficult to exclude abscess given lack of contrast. Confluent edema along the lateral subcutaneous tissues with subcutaneous gas. Correlate clinically for phlegmonous change or abscess. Vasculature: There are vascular calcifications. IMPRESSION: Lateral sided soft tissue wound with subcutaneous gas. Prominent region of confluent edema just de ep to the wound. This could reflect phlegmonous change or very early abscess. Evaluation limited without IV contrast. at 0811 Reported andsigned by: Remberto Arrington M.D. CC: Vero Michaels MD; Tanner Arboleda NP Technologist:Emerald Rivas. RT(R)(CT) CTDI: DLP: Trnscb Date/Time: 12/14/2022 (810) t.[email or web address] Orig Print D/T: S: 12/14/2022 (810) PAGE 1 Signed ReportGLUCOSE [id number] 19:46:00 Test Item Value Reference Range Interpretation Comments GLUCOSE BEDSIDE (test 103 MG/DL 70-110 N Perfor med by certified code = GLUBED) 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 [facility] GLUCOSE [id number] 15:32:00 Test Item Value Reference Range Interpretation Comments GLUCOSE BEDSIDE (test 133 MG/DL 70-110 H Perfor med by certified code = GLUBED) 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 [facility] GLUCOSE [id number] 11:41:00 Test Item Value Reference Range Interpretation Comments GLUCOSE BEDSIDE (test 157 MG/DL 70-110 H Perfor med by certified code = GLUBED) 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 [facility] GLUCOSE [id number] 10:57:00 Test Item Value Reference Range Interpretation Comments GLUCOSE BEDSIDE (test 112 MG/DL 70-110 H Perfor med by certified code = GLUBED) 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 [facility] GLUCOSE [id number] 20:47:00 Test Item Value Reference Range Interpretation Comments GLUCOSE BEDSIDE (test 329 MG/DL 70-110 H Perfor med by certified code = GLUBED) 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 [facility] CBC W/AUTO [id number] 16:22:00 Test Item Value Reference Range Interpretation Comments WHITE BLOOD CELL 10.8 x10 3/uL 4.5-11.0 N (test code = WBC) RED BLOOD CELL (test 2.99 x10 6/uL 3.54-5.02 L code = RBC) HEMOGLOBIN (test code 7.9 g/dL 11.0-15.0 L = HGB) HEMATOCRIT (test code 24.4 % 33.0-45.0 L = HCT) MEAN CELL VOLUME 81.6 fL 81.0-99.0 N (test code = MCV) MEAN CELL HGB (test 26.4 pg 27.0-33.0 L code = MCH) MEAN CELL HGB 32.4 g/dL 33.0-37.0 L CONCETRATION (test code = MCHC) RED CELL DISTRIBUTION 17.3 % 11.5-14.5 H WIDTH CV (test code = RDW) RED CELL DISTRIBUTION 51.3 fL 37.0-54.0 N WIDTH SD (test code = RDW-SD) PLATELET COUNT (test 411 x10 3/uL 150-400 H code = PLT) MEAN PLATELET VOLUME 10.6 fL 7.0-9.0 H (test code = MPV) NEUTROPHIL % (test 71.6 % 56.0-77.0 N code = NT%) LYMPHOCYTE % (test 12.6 % 14.0-32.0 L code = LY%) NEUTROPHIL # (test 7.72 x10 3/uL 2.0-7.6 H code = NT#) LYMPHOCYTE # (test 1.36 x10 3/uL 1.0-3.8 N code = LY#) MANUAL DIFF REQUIRED NO SLIDE R EVBRYSONWED, (test code = MDIFF) CONSISTE NT WITH AUTO DIFF. IMMATURE GRANULOCYTE 6.2 % 0.0-2.0 H % (test code = IG%) MONOCYTE % (test code 8.4 % 4.8-9.0 N = MO%) EOSINOPHIL % (test 1.0 % 0.3-3.7 N code = EO%) BASOPHIL % (test code 0.2 % 0.0-2.0 N = BA%) NUCLEATED RBC % (test 0.2 % 0-0 H code = NRBC%) IMMATURE GRANULOCYTE 0.67 x10 3/uL 0.00-0.03 H # (test code = IG#) MONOCYTE # (test code 0.91 x10 3/uL 0.1-0.8 H = MO#) EOSINOPHIL # (test 0.11 x10 3/uL 0.0-0.2 N code = EO#) BASOPHIL # (test code 0.02 x10 3/uL 0.0-0.2 N = BA#) NUCLEATED RBC # (test 0.02 x10 3/uL 0.0-0.1 N code = NRBC#) COMPREHENSIVE METABOLIC [id number] 15:42:00 Test Item Value Reference Range Interpretation Comments SODIUM (test code = 137 mEq/L 134-147 N NA) POTASSIUM (test 4.5 mEq/L 3.4-5.0 N code = K) CHLORIDE (test code 98 mEq/L 100-108 L = CL) CARBON DIOXIDE 27 mEq/l 21-33 N (test code = CO2) ANION GAP (test 17 0-20 N code = GAP) GLUCOSE (test code 158 mg/dL 70-110 H = GLU) BLOOD UREA NITROGEN 44 mg/dL 7-18 H (test code = BUN) GLOMERULAR 7.9 80-90 L The Glomerular FILTRATION RATE Filtration R ate is a (test code = GFR) calculated parameterbased on serum Creatinin e, patient age and sex. GFR valuesless than 60 mL/min/1.73 squ are meters are garcia cative ofChronic Kidne y Disease. Values less than 15 mL/min/1.73squa re meters indicate Kidney failure. The calculation for GFR is based on the CK D-EPI (2020) calculat ion. This formulais race indifferent and is the recommended for cassidy for GFRby the N ational [facility] on for Adults.The GFR will not calculate i f the sex is unknown or if thepatient's ag e is <18 years. CREATININE (test 5.7 mg/dL 0.6-1.3 H code = CREAT) TOTAL PROTEIN (test 6.4 g/dL 6.4-8.2 N code = PROT) ALBUMIN (test code 2.30 g/dL 3.4-5.0 L = ALB) CALCIUM (test code 8.4 mg/dL 8.0-10.5 N = CA) BILIRUBIN TOTAL < 0.20 mg/dL 0.0-1.0 N (test code = BILT) SGOT/AST (test code 29 IUnit/L 15-37 N = AST) SGPT/ALT (test code 20 IUnit/L 30-65 L = ALT) ALKALINE 181 IUnit/L 20-125 H PHOSPHATASE TOTAL (test code = ALKP) [id number] 15:42:00 Test Item Value Reference Range Interpretation Comments PHOSPHOROUS (test code = PHOS) 3.4 MG/DL 2.5-4.9 N [id number] 15:42:00 Test Item Value Reference Range Interpretation Comments MAGNESIUM (test code = MAG) 2.03 mg/dL 1.80-2.40 N CALCIUM [id number] 15:42:00 Test Item Value Reference Range Interpretation Comments CALCIUM IONIZED (test code = KEISHA) 1.15 MMOL/L 1.09-1.30 N GLUCOSE [id number] 12:14:00 Test Item Value Reference Range Interpretation Comments GLUCOSE BEDSIDE (test 115 MG/DL 70-110 H Perfor med by certified code = GLUBED) 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 [facility] GLUCOSE [id number] 08:06:00 Test Item Value Reference Range Interpretation Comments GLUCOSE BEDSIDE (test 188 MG/DL 70-110 H Perfor med by certified code = GLUBED) 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 [facility] GLUCOSE [id number] 20:54:00 Test Item Value Reference Range Interpretation Comments GLUCOSE BEDSIDE (test 214 MG/DL 70-110 H Perfor med by certified code = GLUBED) 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 [facility] GLUCOSE [id number] 16:50:00 Test Item Value Reference Range Interpretation Comments GLUCOSE BEDSIDE (test 214 MG/DL 70-110 H Perfor med by certified code = GLUBED) 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 [facility] GLUCOSE [id number] 11:28:00 Test Item Value Reference Range Interpretation Comments GLUCOSE BEDSIDE (test 266 MG/DL 70-110 H Perfor med by certified code = GLUBED) 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 [facility] GLUCOSE [id number] 07:51:00 Test Item Value Reference Range Interpretation Comments GLUCOSE BEDSIDE (test 190 MG/DL 70-110 H Perfor med by certified code = GLUBED) 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 [facility] CBC W/AUTO [id number] 04:54:00 Test Item Value Reference Range Interpretation Comments WHITE BLOOD CELL 13.0 x10 3/uL 4.5-11.0 H (test code = WBC) RED BLOOD CELL (test 3.18 x10 6/uL 3.54-5.02 L code = RBC) HEMOGLOBIN (test code 8.4 g/dL 11.0-15.0 L = HGB) HEMATOCRIT (test code 26.3 % 33.0-45.0 L = HCT) MEAN CELL VOLUME 82.7 fL 81.0-99.0 N (test code = MCV) MEAN CELL HGB (test 26.4 pg 27.0-33.0 L code = MCH) MEAN CELL HGB 31.9 g/dL 33.0-37.0 L CONCETRATION (test code = MCHC) RED CELL DISTRIBUTION 17.2 % 11.5-14.5 H WIDTH CV (test code = RDW) RED CELL DISTRIBUTION 51.7 fL 37.0-54.0 N WIDTH SD (test code = RDW-SD) PLATELET COUNT (test 445 x10 3/uL 150-400 H code = PLT) MEAN PLATELET VOLUME 10.0 fL 7.0-9.0 H (test code = MPV) NEUTROPHIL % (test 70.1 % 56.0-77.0 N code = NT%) LYMPHOCYTE % (test 15.9 % 14.0-32.0 N code = LY%) NEUTROPHIL # (test 9.10 x10 3/uL 2.0-7.6 H code = NT#) LYMPHOCYTE # (test 2.06 x10 3/uL 1.0-3.8 N code = LY#) MANUAL DIFF REQUIRED NO SLIDE R EVIEWED, (test code = MDIFF) CONSISTE NT WITH AUTO DIFF. IMMATURE GRANULOCYTE 5.6 % 0.0-2.0 H % (test code = IG%) MONOCYTE % (test code 6.8 % 4.8-9.0 N = MO%) EOSINOPHIL % (test 1.3 % 0.3-3.7 N code = EO%) BASOPHIL % (test code 0.3 % 0.0-2.0 N = BA%) NUCLEATED RBC % (test 0.0 % 0-0 N code = NRBC%) IMMATURE GRANULOCYTE 0.72 x10 3/uL 0.00-0.03 H # (test code = IG#) MONOCYTE # (test code 0.88 x10 3/uL 0.1-0.8 H = MO#) EOSINOPHIL # (test 0.17 x10 3/uL 0.0-0.2 N code = EO#) BASOPHIL # (test code 0.04 x10 3/uL 0.0-0.2 N = BA#) NUCLEATED RBC # (test 0.00 x10 3/uL 0.0-0.1 N code = NRBC#) COMPREHENSIVE METABOLIC [id number] 04:36:00 Test Item Value Reference Range Interpretation Comments SODIUM (test code = 136 mEq/L 134-147 N NA) POTASSIUM (test 5.3 mEq/L 3.4-5.0 H code = K) CHLORIDE (test code 100 mEq/L 100-108 N = CL) CARBON DIOXIDE 28 mEq/l 21-33 N (test code = CO2) ANION GAP (test 13 0-20 N code = GAP) GLUCOSE (test code 228 mg/dL 70-110 H = GLU) BLOOD UREA NITROGEN 47 mg/dL 7-18 H (test code = BUN) GLOMERULAR 7.3 80-90 L The Glomerular FILTRATION RATE Filtration R ate is a (test code = GFR) calculated parameterbased on serum Creatinin e, patient age and sex. GFR valuesless than 60 mL/min/1.73 squ are meters are garcia cative ofChronic Kidne y Disease. Values less than 15 mL/min/1.73squa re meters indicate Kidney failure. The calculation for GFR is based on the CK D-EPI (2020) calculat ion. This formulais race indifferent and is the recommended for cassidy for GFRby the N ational Kidney Foundati on for Adults.The GFR will not calculate i f the sex is unknown or if thepatient's ag e is <18 years. CREATININE (test 6.1 mg/dL 0.6-1.3 H code = CREAT) TOTAL PROTEIN (test 7.0 g/dL 6.4-8.2 N code = PROT) ALBUMIN (test code 2.50 g/dL 3.4-5.0 L = ALB) CALCIUM (test code 9.2 mg/dL 8.0-10.5 N = CA) BILIRUBIN TOTAL < 0.20 mg/dL 0.0-1.0 N (test code = BILT) SGOT/AST (test code 27 IUnit/L 15-37 N = AST) SGPT/ALT (test code 18 IUnit/L 30-65 L = ALT) ALKALINE 175 IUnit/L 20-125 H PHOSPHATASE TOTAL (test code = ALKP) [id number] 04:36:00 Test Item Value Reference Range Interpretation Comments PHOSPHOROUS (test code = PHOS) 3.6 MG/DL 2.5-4.9 N [id number] 04:36:00 Test Item Value Reference Range Interpretation Comments MAGNESIUM (test code = MAG) 2.10 mg/dL 1.80-2.40 N CALCIUM [id number] 04:36:00 Test Item Value Reference Range Interpretation Comments CALCIUM IONIZED (test code = KEISHA) 1.14 MMOL/L 1.09-1.30 N GLUCOSE [id number] 02:25:00 Test Item Value Reference Range Interpretation Comments GLUCOSE BEDSIDE (test 219 MG/DL 70-110 H Perfor med by certified code = GLUBED) 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 [facility] - XR CHEST 1 [id number] 00:00:00 [facility] 1960 Sex: F FAX: Moe Smith MD [phone] [place]: St: ADM FAX: Vero Michael MD [phone] Name: CITLALY DAVIS [facility] : 1960 Age/S: 62/F [address] [place] [address] Unit #: [id number] Loc: [address] [address] Phys: Moe Peres MD Acct: [id number] Dis Date: Status: ADM IN PHONE #: [phone] Exam Date: 12/11/2022804 FAX #: [phone] Reason: worsening leukocytosis EXAMS: CPT CODE: [id number] XR CHEST 1 V 52008 PROCEDURE INFORMATION: Exam: XR Chest Exam date and time: 12/11/2022 8:02 AM Age: 62years old Clinical indication: Screening exam; Other screening; Additional info: Worsening leukocytosis TECHNIQUE: Imaging protocol: Radiologic exam of the chest. Views: 1 view. COMPARISON: CR XR [id number] 12/05/2022 8:14 PM FINDINGS: Lungs: Mild bilateral prominence of the interstitial markings. No consolidation. Pleural spaces: Unremarkable. No pleural effusion. No pneumothorax. Heart/Mediastinum: Stable cardiomegaly. Bones/joints: Unremarkable. Soft tissues: Left axillary and subclavian stents are unchanged. IMPRESSION: Stable cardiomegaly. Mild prominence of the interstitial markings. Findings suggestive of pulmonary edema, correlate clinically, cannot exclude atypical pneumonia. No consolidation. at 0834 Reported and signed by: Daly Hatfield M.D. CC: Moe Peres MD; Vero Michaels MD Technologist: RT L[facility] Date/Time/By: 12/11/2022 (08) : By: [email or web address] Orig Print D/T: S: 12/11/2022 (827) PAGE 1 Signed ReportGLUCOSE [id number] 20:47:00 Test Item Value Reference Range Interpretation Comments GLUCOSE BEDSIDE (test 193 MG/DL 70-110 H Perfor med by certified code = GLUBED) 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 [facility] GLUCOSE [id number] 16:00:00 Test Item Value Reference Range Interpretation Comments GLUCOSE BEDSIDE (test 179 MG/DL 70-110 H Perfor med by certified code = GLUBED) 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 [facility] GLUCOSE [id number] 12:52:00 Test Item Value Reference Range Interpretation Comments GLUCOSE BEDSIDE (test 387 MG/DL 70-110 H Perfor med by certified code = GLUBED) 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 [facility] GLUCOSE [id number] 10:30:00 Test Item Value Reference Range Interpretation Comments GLUCOSE BEDSIDE (test 277 MG/DL 70-110 H Perfor med by certified code = GLUBED) 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 [facility] GLUCOSE [id number] 08:45:00 Test Item Value Reference Range Interpretation Comments GLUCOSE BEDSIDE (test 39 MG/DL 70-110 L Perfor med by certified code = GLUBED) 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 [facility] CBC W/AUTO [id number] 06:17:00 Test Item Value Reference Range Interpretation Comments WHITE BLOOD CELL (test code = 11.4 x10 3/uL 4.5-11.0 H WBC) RED BLOOD CELL (test code = 3.16 x10 6/uL 3.54-5.02 L RBC) HEMOGLOBIN (test code = HGB) 8.3 g/dL 11.0-15.0 L HEMATOCRIT (test code = HCT) 25.9 % 33.0-45.0 L MEAN CELL VOLUME (test code = 82.0 fL 81.0-99.0 N MCV) MEAN CELL HGB (test code = MCH) 26.3 pg 27.0-33.0 L MEAN CELL HGB CONCETRATION 32.0 g/dL 33.0-37.0 L (test code = MCHC) RED CELL DISTRIBUTION WIDTH CV 17.2 % 11.5-14.5 H (test code = RDW) RED CELL DISTRIBUTION WIDTH SD 51.0 fL 37.0-54.0 N (test code = RDW-SD) PLATELET COUNT (test code = 474 x10 3/uL 150-400 H PLT) MEAN PLATELET VOLUME (test code 10.5 fL 7.0-9.0 H = MPV) NEUTROPHIL % (test code = NT%) % 56.0-77.0 LYMPHOCYTE % (test code = LY%) % 14.0-32.0 NEUTROPHIL # (test code = NT#) x10 3/uL 2.0-7.6 LYMPHOCYTE # (test code = LY#) x10 3/uL 1.0-3.8 MANUAL DIFF REQUIRED (test code YES = MDIFF) WBC [id number] 06:17:00 Test Item Value Reference Range Interpretation Comments BAND NEUTROPHIL (test code 0.9 % 0.0-10.0 N = BAND) ANISOCYTOSIS (test code = ANISO) PLATELET ESTIMATE (test Adequate THOUSAND ADEQUATE code = PLTEST) SEGMENTED NEUTROPHILS (test 68.2 % 37-69 N code = SEG) LYMPHOCYTE (test code = 22.7 % 23-55 L LYMPH) MONOCYTE (test code = MON) 4.6 % 0-10 N MYELOCYTE (test code = 2.7 % 0.0-0.0 H MYELO) BLAST (test code = BLAST) 0.9 % 0.0-0.0 H POLYCHROMASIA (test code = 2+ POLC) POIKILOCYTOSIS (test code = 2+ POIK) MACROCYTOSIS (test code = 1+ MACR) PLATELET MORPHOLOGY (test NORMAL code = PLTMORPH) COMPREHENSIVE METABOLIC [id number] 06:16:00 Test Item Value Reference Range Interpretation Comments SODIUM (test code = 135 mEq/L 134-147 N NA) POTASSIUM (test 4.6 mEq/L 3.4-5.0 N code = K) CHLORIDE (test code 101 mEq/L 100-108 N = CL) CARBON DIOXIDE 25 mEq/l 21-33 N (test code = CO2) ANION GAP (test 14 0-20 N code = GAP) GLUCOSE (test code 211 mg/dL 70-110 H = GLU) BLOOD UREA NITROGEN 61 mg/dL 7-18 H (test code = BUN) GLOMERULAR 5.4 80-90 L The Glomerular FILTRATION RATE Filtration R ate is a (test code = GFR) calculated parameterbased on serum Creatinin e, patient age and sex. GFR valuesless than 60 mL/min/1.73 squ are meters are garcia cative ofChronic Kidne y Disease. Values less than 15 mL/min/1.73squa re meters indicate Kidney failure. The calculation for GFR is based on the CK D-EPI (2020) calculat ion. This formulais race indifferent and is the recommended for cassidy for GFRby the N [facility].The GFR will not calculate i f the sex is unknown or if thepatient's ag e is <18 years. CREATININE (test 7.9 mg/dL 0.6-1.3 H code = CREAT) TOTAL PROTEIN (test 6.6 g/dL 6.4-8.2 N code = PROT) ALBUMIN (test code 2.40 g/dL 3.4-5.0 L = ALB) CALCIUM (test code 8.6 mg/dL 8.0-10.5 N = CA) BILIRUBIN TOTAL < 0.20 mg/dL 0.0-1.0 N (test code = BILT) SGOT/AST (test code 23 IUnit/L 15-37 = AST) SGPT/ALT (test code 12 IUnit/L 30-65 L = ALT) ALKALINE 154 IUnit/L 20-125 H PHOSPHATASE TOTAL (test code = ALKP) [id number] 06:16:00 Test Item Value Reference Range Interpretation Comments PHOSPHOROUS (test code = PHOS) 3.0 MG/DL 2.5-4.9 N [id number] 06:16:00 Test Item Value Reference Range Interpretation Comments MAGNESIUM (test code = MAG) 2.20 mg/dL 1.80-2.40 N CALCIUM [id number] 06:16:00 Test Item Value Reference Range Interpretation Comments CALCIUM IONIZED (test code = KEISHA) 1.08 MMOL/L 1.09-1.30 L GLUCOSE [id number] 05:30:00 Test Item Value Reference Range Interpretation Comments GLUCOSE BEDSIDE (test 218 MG/DL 70-110 H Perfor med by certified code = GLUBED) 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 [facility] GLUCOSE [id number] 00:45:00 Test Item Value Reference Range Interpretation Comments GLUCOSE BEDSIDE (test 305 MG/DL 70-110 H Perfor med by certified code = GLUBED) 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 [facility] GLUCOSE [id number] 22:06:00 Test Item Value Reference Range Interpretation Comments GLUCOSE BEDSIDE (test 143 MG/DL 70-110 H Perfor med by certified code = GLUBED) 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 [facility] GLUCOSE [id number] 18:06:00 Test Item Value Reference Range Interpretation Comments GLUCOSE BEDSIDE (test 293 MG/DL 70-110 H Perfor med by certified code = GLUBED) 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 [facility] GLUCOSE [id number] 13:55:00 Test Item Value Reference Range Interpretation Comments GLUCOSE BEDSIDE (test 218 MG/DL 70-110 H Perfor med by certified code = GLUBED) 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 [facility] GLUCOSE [id number] 11:14:00 Test Item Value Reference Range Interpretation Comments GLUCOSE BEDSIDE (test 158 MG/DL 70-110 H Perfor med by certified code = GLUBED) 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 [facility] GLUCOSE [id number] 09:37:00 Test Item Value Reference Range Interpretation Comments GLUCOSE BEDSIDE (test 54 MG/DL 70-110 L Perfor med by certified code = GLUBED) 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 [facility] COMPREHENSIVE METABOLIC [id number] 06:32:00 Test Item Value Reference Range Interpretation Comments SODIUM (test code = 139 mEq/L 134-147 N NA) POTASSIUM (test 4.4 mEq/L 3.4-5.0 N code = K) CHLORIDE (test code 102 mEq/L 100-108 N = CL) CARBON DIOXIDE 26 mEq/l 21-33 N (test code = CO2) ANION GAP (test 15 0-20 N code = GAP) GLUCOSE (test code 161 mg/dL 70-110 H = GLU) BLOOD UREA NITROGEN 47 mg/dL 7-18 H (test code = BUN) GLOMERULAR 6.4 80-90 L The Glomerular FILTRATION RATE Filtration R ate is a (test code = GFR) calculated parameterbased on serum Creatinin e, patient age and sex. GFR valuesless than 60 mL/min/1.73 squ are meters are garcia cative ofChronic Kidne y Disease. Values less than 15 mL/min/1.73squa re meters indicate Kidney failure. The calculation for GFR is based on the CK D-EPI (2020) calculat ion. This formulais race indifferent and is the recommended for cassidy for GFRby the [facility] on for Adults.The GFR will not calculate i f the sex is unknown or if thepatient's ag e is <18 years. CREATININE (test 6.8 mg/dL 0.6-1.3 H code = CREAT) TOTAL PROTEIN (test 6.7 g/dL 6.4-8.2 N code = PROT) ALBUMIN (test code 2.50 g/dL 3.4-5.0 L = ALB) CALCIUM (test code 8.2 mg/dL 8.0-10.5 N = CA) BILIRUBIN TOTAL < 0.20 mg/dL 0.0-1.0 N (test code = BILT) SGOT/AST (test code 14 IUnit/L 15-37 L = AST) SGPT/ALT (test code 8 IUnit/L 30-65 L = ALT) ALKALINE 141 IUnit/L 20-125 H PHOSPHATASE TOTAL (test code = ALKP) [id number] 06:32:00 Test Item Value Reference Range Interpretation Comments PHOSPHOROUS (test code = PHOS) 3.5 MG/DL 2.5-4.9 N [id number] 06:32:00 Test Item Value Reference Range Interpretation Comments MAGNESIUM (test code = MAG) 2.10 mg/dL 1.80-2.40 N CALCIUM [id number] 06:32:00 Test Item Value Reference Range Interpretation Comments CALCIUM IONIZED (test code = KEISHA) 1.02 MMOL/L 1.09-1.30 L CBC W/AUTO [id number] 06:01:00 Test Item Value Reference Range Interpretation Comments WHITE BLOOD CELL (test code = 9.8 x10 3/uL 4.5-11.0 N WBC) RED BLOOD CELL (test code = 3.36 x10 6/uL 3.54-5.02 L RBC) HEMOGLOBIN (test code = HGB) 8.7 g/dL 11.0-15.0 L HEMATOCRIT (test code = HCT) 28.3 % 33.0-45.0 L MEAN CELL VOLUME (test code = 84.2 fL 81.0-99.0 N MCV) MEAN CELL HGB (test code = MCH) 25.9 pg 27.0-33.0 L MEAN CELL HGB CONCETRATION 30.7 g/dL 33.0-37.0 L (test code = MCHC) RED CELL DISTRIBUTION WIDTH CV 17.1 % 11.5-14.5 H (test code = RDW) RED CELL DISTRIBUTION WIDTH SD 52.2 fL 37.0-54.0 N (test code = RDW-SD) PLATELET COUNT (test code = 468 x10 3/uL 150-400 H PLT) MEAN PLATELET VOLUME (test code 10.2 fL 7.0-9.0 H = MPV) NEUTROPHIL % (test code = NT%) 67.6 % 56.0-77.0 N IMMATURE GRANULOCYTE % (test 3.1 % 0.0-2.0 H code = IG%) LYMPHOCYTE % (test code = LY%) 21.1 % 14.0-32.0 N MONOCYTE % (test code = MO%) 6.6 % 4.8-9.0 N EOSINOPHIL % (test code = EO%) 1.3 % 0.3-3.7 N BASOPHIL % (test code = BA%) 0.3 % 0.0-2.0 N NUCLEATED RBC % (test code = 0.2 % 0-0 H NRBC%) NEUTROPHIL # (test code = NT#) 6.64 x10 3/uL 2.0-7.6 N IMMATURE GRANULOCYTE # (test 0.30 x10 3/uL 0.00-0.03 H code = IG#) LYMPHOCYTE # (test code = LY#) 2.07 x10 3/uL 1.0-3.8 N MONOCYTE # (test code = MO#) 0.65 x10 3/uL 0.1-0.8 N EOSINOPHIL # (test code = EO#) 0.13 x10 3/uL 0.0-0.2 N BASOPHIL # (test code = BA#) 0.03 x10 3/uL 0.0-0.2 N NUCLEATED RBC # (test code = 0.02 x10 3/uL 0.0-0.1 N NRBC#) MANUAL DIFF REQUIRED (test code NO = MDIFF) GLUCOSE [id number] 05:48:00 Test Item Value Reference Range Interpretation Comments GLUCOSE BEDSIDE (test 152 MG/DL 70-110 H Perfor med by certified code = GLUBED) 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 [facility] GLUCOSE [id number] 02:07:00 Test Item Value Reference Range Interpretation Comments GLUCOSE BEDSIDE (test 383 MG/DL 70-110 H Perfor med by certified code = GLUBED) 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 [facility] GLUCOSE [id number] 21:59:00 Test Item Value Reference Range Interpretation Comments GLUCOSE BEDSIDE (test 143 MG/DL 70-110 H Perfor med by certified code = GLUBED) 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 [facility] GLUCOSE [id number] 16:31:00 Test Item Value Reference Range Interpretation Comments GLUCOSE BEDSIDE (test 371 MG/DL 70-110 H Perfor med by certified code = GLUBED) 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 [facility] GLUCOSE [id number] 12:23:00 Test Item Value Reference Range Interpretation Comments GLUCOSE BEDSIDE (test 101 MG/DL 70-110 N Perfor med by certified code = GLUBED) 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 [facility] GLUCOSE [id number] 08:51:00 Test Item Value Reference Range Interpretation Comments GLUCOSE BEDSIDE (test 231 MG/DL 70-110 H Perfor med by certified code = GLUBED) 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 [facility] COMPREHENSIVE METABOLIC [id number] 06:28:00 Test Item Value Reference Range Interpretation Comments SODIUM (test code = 141 mEq/L 134-147 N NA) POTASSIUM (test code 3.9 mEq/L 3.4-5.0 N = K) CHLORIDE (test code 103 mEq/L 100-108 = CL) CARBON DIOXIDE (test 28 mEq/l 21-33 N code = CO2) ANION GAP (test code 14 0-20 N = GAP) GLUCOSE (test code = 91 mg/dL 70-110 GLU) BLOOD UREA NITROGEN 37 mg/dL 7-18 H (test code = BUN) GLOMERULAR 7.9 80-90 L The Glomerular FILTRATION RATE Filtration R ate is a (test code = GFR) calculated parameterbased on serum Creatinin e, patient age and sex. GFR valuesless than 60 mL/min/1.73 squ are meters are garcia cative ofChronic Kidne y Disease. Values less than 15 mL/min/1.73squa re meters indicate Kidney failure. The calculation for GFR is based on the CK D-EPI (2020) calculat ion. This formulais race indifferent and is the recommended for [facility] for GFRby the N ational Kidney Foundati on for Adults.The GFR will not calculate i f the sex is unknown or if thepatient's ag e is <18 years. CREATININE (test 5.7 mg/dL 0.6-1.3 H code = CREAT) TOTAL PROTEIN (test 6.9 g/dL 6.4-8.2 N code = PROT) ALBUMIN (test code = 2.50 g/dL 3.4-5.0 L ALB) CALCIUM (test code = 7.9 mg/dL 8.0-10.5 L CA) BILIRUBIN TOTAL 0.20 mg/dL 0.0-1.0 N (test code = BILT) SGOT/AST (test code 24 IUnit/L 15-37 N = AST) SGPT/ALT (test code 10 IUnit/L 30-65 L = ALT) ALKALINE PHOSPHATASE 157 IUnit/L 20-125 H TOTAL (test code = ALKP) [id number] 06:28:00 Test Item Value Reference Range Interpretation Comments PHOSPHOROUS (test code = PHOS) 3.7 MG/DL 2.5-4.9 [id number] 06:28:00 Test Item Value Reference Range Interpretation Comments MAGNESIUM (test code = MAG) 1.98 mg/dL 1.80-2.40 N CALCIUM [id number] 06:28:00 Test Item Value Reference Range Interpretation Comments CALCIUM IONIZED (test code = KEISHA) 1.00 MMOL/L 1.09-1.30 L CBC W/AUTO [id number] 06:21:00 Test Item Value Reference Range Interpretation Comments WHITE BLOOD CELL 9.1 x10 3/uL 4.5-11.0 N (test code = WBC) RED BLOOD CELL (test 3.44 x10 6/uL 3.54-5.02 L code = RBC) HEMOGLOBIN (test code 9.1 g/dL 11.0-15.0 L = HGB) HEMATOCRIT (test code 28.8 % 33.0-45.0 L = HCT) MEAN CELL VOLUME 83.7 fL 81.0-99.0 N (test code = MCV) MEAN CELL HGB (test 26.5 pg 27.0-33.0 L code = MCH) MEAN CELL HGB 31.6 g/dL 33.0-37.0 L CONCETRATION (test code = MCHC) RED CELL DISTRIBUTION 16.7 % 11.5-14.5 H WIDTH CV (test code = RDW) RED CELL DISTRIBUTION 50.7 fL 37.0-54.0 N WIDTH SD (test code = RDW-SD) PLATELET COUNT (test 477 x10 3/uL 150-400 H code = PLT) MEAN PLATELET VOLUME 11.1 fL 7.0-9.0 H (test code = MPV) NEUTROPHIL % (test 71.9 % 56.0-77.0 N code = NT%) IMMATURE GRANULOCYTE 3.3 % 0.0-2.0 H % (test code = IG%) LYMPHOCYTE % (test 18.3 % 14.0-32.0 N code = LY%) MONOCYTE % (test code 4.8 % 4.8-9.0 N = MO%) EOSINOPHIL % (test 1.4 % 0.3-3.7 N code = EO%) BASOPHIL % (test code 0.3 % 0.0-2.0 N = BA%) NUCLEATED RBC % (test 0.0 % 0-0 N code = NRBC%) NEUTROPHIL # (test 6.57 x10 3/uL 2.0-7.6 N code = NT#) IMMATURE GRANULOCYTE 0.30 x10 3/uL 0.00-0.03 H # (test code = IG#) LYMPHOCYTE # (test 1.67 x10 3/uL 1.0-3.8 N code = LY#) MONOCYTE # (test code 0.44 x10 3/uL 0.1-0.8 N = MO#) EOSINOPHIL # (test 0.13 x10 3/uL 0.0-0.2 N code = EO#) BASOPHIL # (test code 0.03 x10 3/uL 0.0-0.2 N = BA#) NUCLEATED RBC # (test 0.00 x10 3/uL 0.0-0.1 N code = NRBC#) MANUAL DIFF REQUIRED NO SLIDE R NGUYEN, (test code = MDIFF) CONSISTE NT WITH AUTO DIFF. GLUCOSE [id number] 05:35:00 Test Item Value Reference Range Interpretation Comments GLUCOSE BEDSIDE (test 95 MG/DL 70-110 N [facility] med by certified code = GLUBED) 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 [facility] AB HEPATITIS B [id number] 05:11:00 Test Item Value Reference Range Interpretation Comments AB HEPATITIS B > 1000.0 mIU/mL See_Comment Status of Immunity SURFACE (test code = Anti-HB s Level HBSAB) --- I ncon sistent with Immunity 0.0 - 9.9Consistent w ith Immunity >9.9 [Automated mess age] The system [employer] generated this result transmit vikki reference range : Immunity>9.9. T he reference range was not used to interpret this result as normal/abnormal . AB HEPATITIS B [id number] 05:11:00 Test Item Value Reference Range Interpretation Comments AB HEPATITIS B CORE Positive Negative A Performe d At: HD (test code = HBCAB) [facility] [id number] [place], [place] [id number] paige Leach MD Ph:[phone] GLUCOSE [id number] 01:18:00 Test Item Value Reference Range Interpretation Comments GLUCOSE BEDSIDE (test 292 MG/DL 70-110 H Perfor med by certified code = GLUBED) 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 [facility] GLUCOSE [id number] 22:56:00 Test Item Value Reference Range Interpretation Comments GLUCOSE BEDSIDE (test 172 MG/DL 70-110 H Perfor med by certified code = GLUBED) 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 [facility] GLUCOSE [id number] 17:48:00 Test Item Value Reference Range Interpretation Comments GLUCOSE BEDSIDE (test 161 MG/DL 70-110 H Perfor med by certified code = GLUBED) 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 [facility] GLUCOSE [id number] 12:24:00 Test Item Value Reference Range Interpretation Comments GLUCOSE BEDSIDE (test 277 MG/DL 70-110 H Perfor med by certified code = GLUBED) 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 [facility] GLUCOSE [id number] 10:13:00 Test Item Value Reference Range Interpretation Comments GLUCOSE BEDSIDE (test 98 MG/DL 70-110 N Perfor med by certified code = GLUBED) 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 [facility] GLUCOSE [id number] 10:13:00 Test Item Value Reference Range Interpretation Comments GLUCOSE BEDSIDE (test 69 MG/DL 70-110 L Perfor med by certified code = GLUBED) 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 [facility] GLUCOSE [id number] 09:23:00 Test Item Value Reference Range Interpretation Comments GLUCOSE BEDSIDE (test 115 MG/DL 70-110 H [facility] by certified code = GLUBED) 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 [facility] COMPREHENSIVE METABOLIC [id number] 07:27:00 Test Item Value Reference Range Interpretation Comments SODIUM (test code = 140 mEq/L 134-147 N NA) POTASSIUM (test 3.4 mEq/L 3.4-5.0 N code = K) CHLORIDE (test code 96 mEq/L 100-108 L = CL) CARBON DIOXIDE 29 mEq/l 21-33 N (test code = CO2) ANION GAP (test 19 0-20 N code = GAP) GLUCOSE (test code 181 mg/dL 70-110 H = GLU) BLOOD UREA NITROGEN 68 mg/dL 7-18 H (test code = BUN) GLOMERULAR 5.0 80-90 L The Glomerular FILTRATION RATE Filtration R ate is a (test code = GFR) calculated parameterbased on serum Creatinin e, patient age and sex. GFR valuesless than 60 mL/min/1.73 squ are meters are garcia cative ofChronic Kidne y Disease. Values less than 15 mL/min/1.73squa re meters indicate Kidney failure. The calculation for GFR is based on the CK D-EPI (2020) calculat ion. This formulais race indifferent and is the recommended for [place] for GFRby the N [facility] for Ad[facility].The GFR will not calculate i f the sex is unknown or if thepatient's ag e is <18 years. CREATININE (test 8.4 mg/dL 0.6-1.3 H code = CREAT) TOTAL PROTEIN (test 6.5 g/dL 6.4-8.2 N code = PROT) ALBUMIN (test code 2.30 g/dL 3.4-5.0 L = ALB) CALCIUM (test code 7.8 mg/dL 8.0-10.5 L = CA) BILIRUBIN TOTAL < 0.20 mg/dL 0.0-1.0 N (test code = BILT) SGOT/AST (test code 17 IUnit/L 15-37 N = AST) SGPT/ALT (test code 8 IUnit/L 30-65 L = ALT) ALKALINE 131 IUnit/L 20-125 H PHOSPHATASE TOTAL (test code = ALKP) [id number] 07:27:00 Test Item Value Reference Range Interpretation Comments PHOSPHOROUS (test code = PHOS) 5.6 MG/DL 2.5-4.9 H [id number] 07:27:00 Test Item Value Reference Range Interpretation Comments MAGNESIUM (test code = MAG) 2.12 mg/dL 1.80-2.40 N TROP-I HIGH [id number] 07:27:00 Test Item Value Reference Range Interpretation Comments TROP-I HIGH 352 ng/L 0-34 HH Critical resul t called to SENSITIVITY (test ALEXIS YUN/María FarrellLAB.LS code = TROPIHS) at 0711/25Nurse read back result and tech confirmed it's correct? YESCAUTION: Uni ts of the current test me thodology (ng/L) differfr om the prior test meth odology (ng/mL) by a fa ctor of 1000. 99t h Percentile Uppe r Reference Limit (URL): Fe males: 34 ng/LMales: 54 n g/L In order to distin guish acute elevations of h igh sensitivitytrop onin from other clinical conditions, the FourthUnive rsal Definition of M yocardial Infarction stressesclinica l assessment and the demonstration o f a rise and/orfall in s erial troponin result s above the URL. These resu lts were obtained using [employer] IM TnI Hreagent. Results from di fferent methodologies s hould not becompared to o ne another as quantitative results and URLs mayvar y by method. CALCIUM [id number] 07:27:00 Test Item Value Reference Range Interpretation Comments CALCIUM IONIZED (test code = KEISHA) 0.99 MMOL/L 1.09-1.30 L CBC W/AUTO [id number] 06:39:00 Test Item Value Reference Range Interpretation Comments WHITE BLOOD CELL (test code = 7.7 x10 3/uL 4.5-11.0 N WBC) RED BLOOD CELL (test code = 3.32 x10 6/uL 3.54-5.02 L RBC) HEMOGLOBIN (test code = HGB) 8.6 g/dL 11.0-15.0 L HEMATOCRIT (test code = HCT) 27.4 % 33.0-45.0 L MEAN CELL VOLUME (test code = 82.5 fL 81.0-99.0 N MCV) MEAN CELL HGB (test code = MCH) 25.9 pg 27.0-33.0 L MEAN CELL HGB CONCETRATION 31.4 g/dL 33.0-37.0 L (test code = MCHC) RED CELL DISTRIBUTION WIDTH CV 16.7 % 11.5-14.5 H (test code = RDW) RED CELL DISTRIBUTION WIDTH SD 50.4 fL 37.0-54.0 N (test code = RDW-SD) PLATELET COUNT (test code = 454 x10 3/uL 150-400 H PLT) MEAN PLATELET VOLUME (test code 11.4 fL 7.0-9.0 H = MPV) NEUTROPHIL % (test code = NT%) 74.1 % 56.0-77.0 N IMMATURE GRANULOCYTE % (test 2.1 % 0.0-2.0 H code = IG%) LYMPHOCYTE % (test code = LY%) 18.2 % 14.0-32.0 N MONOCYTE % (test code = MO%) 4.8 % 4.8-9.0 N EOSINOPHIL % (test code = EO%) 0.5 % 0.3-3.7 N BASOPHIL % (test code = BA%) 0.3 % 0.0-2.0 N NUCLEATED RBC % (test code = 0.3 % 0-0 H NRBC%) NEUTROPHIL # (test code = NT#) 5.72 x10 3/uL 2.0-7.6 N IMMATURE GRANULOCYTE # (test 0.16 x10 3/uL 0.00-0.03 H code = IG#) LYMPHOCYTE # (test code = LY#) 1.40 x10 3/uL 1.0-3.8 N MONOCYTE # (test code = MO#) 0.37 x10 3/uL 0.1-0.8 N EOSINOPHIL # (test code = EO#) 0.04 x10 3/uL 0.0-0.2 N BASOPHIL # (test code = BA#) 0.02 x10 3/uL 0.0-0.2 N NUCLEATED RBC # (test code = 0.02 x10 3/uL 0.0-0.1 N NRBC#) MANUAL DIFF REQUIRED (test code NO = MDIFF) GLUCOSE [id number] 05:36:00 Test Item Value Reference Range Interpretation Comments GLUCOSE BEDSIDE (test 180 MG/DL 70-110 H Perfor med by certified code = GLUBED) 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 [facility] THROMBOPLASTIN TIME [id number] 02:05:00 Test Item Value Reference Range Interpretation Comments THROMBOPLASTIN TIME 49.0 Seconds 25.0-39.5 H Therape utic Range: PARTIAL (test code = 50.4 - 88.3 Seconds PTT) Effective 03/10/2019 GLUCOSE [id number] 01:46:00 Test Item Value Reference Range Interpretation Comments GLUCOSE BEDSIDE (test 143 MG/DL 70-110 H Perfor med by certified code = GLUBED) 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 [facility] GLUCOSE [id number] 21:18:00 Test Item Value Reference Range Interpretation Comments GLUCOSE BEDSIDE (test 207 MG/DL 70-110 H Perfor med by certified code = GLUBED) 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 [facility] THROMBOPLASTIN TIME [id number] 19:57:00 Test Item Value Reference Range Interpretation Comments THROMBOPLASTIN TIME 61.6 Seconds 25.0-39.5 H Therape utic Range: PARTIAL (test code = 50.4 - 88.3 Seconds PTT) Effective 03/10/2019 COMMENTS: 6HR REDRAW FROM HEPARIN TITRATION/BOLUS 1330GLUCOSE [id number] 17:17:00 Test Item Value Reference Range Interpretation Comments GLUCOSE BEDSIDE (test 79 MG/DL 70-110 N Perfor med by certified code = GLUBED) 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 [facility] AG HEPATITIS B [id number] 13:58:00 Test Item Value Reference Range Interpretation Comments AG HEPATITIS B SURFACE NON REACTIVE INDEX NonReactive (test code = HBSAG) GLUCOSE [id number] 13:00:00 Test Item Value Reference Range Interpretation Comments GLUCOSE BEDSIDE (test 215 MG/DL 70-110 H Perfor med by certified code = GLUBED) 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 [facility] THROMBOPLASTIN TIME [id number] 12:52:00 Test Item Value Reference Range Interpretation Comments THROMBOPLASTIN TIME 34.0 Seconds 25.0-39.5 N Therape utic Range: PARTIAL (test code = 50.4 - 88.3 Seconds PTT) Effective 03/10/2019 COMMENTS: DRAW PTT 6 HOURS AFTER HEPARIN ADMIN, 0611 STARTLIPID PROFILE (CORONARY RISK)2022-12-06 11:24:00 Test Item Value Reference Range Interpretation Comments TRIGLYCERIDES (test 136 mg/dL 40-150 N code = TRIG) CHOLESTEROL (test 162 mg/dL <200 code = CHOL) CHOLESTEROL/HDL 4.94 RATIO 3.27-4.44 H RISK ASSOCIA VIKKI WITH RATIO (test code = CHOL/HDL RATIOS: RISK CHOLHDL) MALE FEMALE1/2 AVERAGE 3.43 3.27AVERAG E 4.97 4.442X AVERAGE 9.55 7.053X AVERAGE 23.39 11.04 NOTE THAT THE REFERENCE VALUE IS RELATEDTO RISK LEVELS RECOMMENDED BY THE NATL.HEART, NORA G, AND BLOOD INST. HDL CHOLESTEROL 32.8 mg/dL 39-96 L (test code = HDL) LIPOPROTEIN LDL 86.1 mg/dL 0-100 N <100 OPTIMAL 100-129 (test code = LDL) NEAR OPTIM AL/ABOVE [id number] HIGH>KP=961 VANDANA Y HIGH*Guidelines provided by the National Choles terol EducationProgra m Adult Treatment Panel III CREATINE KINASE (CK)2022-12-06 11:24:00 Test Item Value Reference Range Interpretation Comments CREATINE KINASE (CK) (test code = 45 Units/L 34-145 N CK) [id number] 11:24:00 Test Item Value Reference Range Interpretation Comments CKMB (test code = 0.1 ng/mL 0-5.0 N CUT OFF:>5 ng/mL is CKMBT) suggested as be ing consistent with AMI. TROP-I HIGH [id number] 11:24:00 Test Item Value Reference Range Interpretation Comments TROP-I HIGH 445 ng/L 0-34 HH CAUTION: Units of the SENSITIVITY (test current te st methodology code = TROPIHS) (ng/L) diffe rfrom the prior test meth odology (ng/mL) by a fa ctor of 1000. 99t h Percentile Uppe r Reference Limit (URL): Fe males: 34 ng/LMales: 54 n g/L In order to distin guish acute elevations of h igh sensitivitytrop onin from other clinical conditions, the FourthUnive rsal Definition of M yocardial Infarction stressesclinica l assessment and the demonstration o f a rise and/orfall in s erial troponin result s above the URL. These resu lts were obtained using [employer] IM TnI Hreagent. Results from di fferent methodologies s hould not becompared to o ne another as quantitative results and URLs mayvar y by method. 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 [facility] T4 [id number] 06:57:00 Test Item Value Reference Range Interpretation Comments T4 FREE (test code = T4F) 1.4 ng/dL 0.77-1.61 N TSH REFLEX TO [id number] 06:57:00 Test Item Value Reference Range Interpretation Comments TSH REFLEX TO FT4 (test code = 0.18 IU/mL 0.42-5.47 L TSHREFLEX) TROP-I HIGH [id number] 06:57:00 Test Item Value Reference Range Interpretation Comments TROP-I HIGH 539 ng/L 0-34 HH CAUTION: Units of the SENSITIVITY (test current te st methodology code = TROPIHS) (ng/L) diffe rfrom the prior test meth odology (ng/mL) by a fa ctor of 1000. 99t h Percentile Uppe r Reference Limit (URL): Fe males: 34 ng/LMales: 54 n g/L In order to distin guish acute elevations of h igh sensitivitytrop onin from other clinical conditions, the FourthUnive rsal Definition of M yocardial Infarction stressesclinica l assessment and the demonstration o f a rise and/orfall in s erial troponin result s above the URL. These resu lts were obtained using [employer] IM TnI Hreagent. Results from di fferent methodologies s hould not becompared to o ne another as quantitative results and URLs mayvar y by method. [id number] 06:50:00 Test Item Value Reference Range Interpretation Comments AMMONIA (test code = AMM) 39 umol/L 11-35 H PROTHROMBIN [id number] 05:32:00 Test Item Value Reference Range Interpretation Comments PROTHROMBIN TIME 13.5 SECONDS 9.3-12.9 H PATIENT (test code = PTP) INTERNATIONAL NORMAL 1.2 0.8-1.2 N TARGE T INR BY RATIO (test code = INDICATIO N Indication INR) INR1. Prophylax is of venous thrombos is 2.0 - 3.0 (orthoped ic surgery), Proph ylaxis of venous throm bosis (other than hig h-risk surgery), Treat ment of Deep Vein Thrombosis/Pulm onary Embolism, Preve ntion of systemic emb olism - Tissue heart va lves, Acute Myocardia l Infarction (to prevent systemic emboli sm), Valvular heart disease, Atrial Fibrillation, Bileaflet mecha nical valve in aortic position.2. Mec hanical prosthetic valv es (high risk), 2. 5 - 3.5 Presence of Lup us Anticoagulant o r Antiphospholipi d Antibodies, Pre vention of systemic emb olism - Acute Myocardia l Infarction (to prevent recurrent infar ct). 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 With NEAR technology,ampl ified target detection is ac hieved with the use offluor escently labeled molecul ar beacons, comparable to P CRtechniques -----Negative r esults should be treat ed as presumptive and , ifinconsistent with clinical signs and symptoms or necessaryfor patient management, jennifer uld be tested with an alternativemole cular assay. Negative result s do not preclude FHDA-WfD-3kcves tion and should not be u sed as the sole basis forp atient management deci sions. Negative result s should beconsidered in the context of a patient's recent exposures,histo ry, presence of clinical sig ns and symptoms consis tentwith COVID-19. TROP-I HIGH [id number] 00:30:00 Test Item Value Reference Range Interpretation Comments TROP-I HIGH 494 ng/L 0-34 HH CAUTION: Units of the SENSITIVITY (test current te st methodology code = TROPIHS) (ng/L) diffe rfrom the prior test meth odology (ng/mL) by a fa ctor of 1000. 99t h Percentile Uppe r Reference Limit (URL): Fe males: 34 ng/LMales: 54 n g/L In order to distin guish acute elevations of h igh sensitivitytrop onin from other clinical conditions, the FourthUnive rsal Definition of M yocardial Infarction stressesclinica l assessment and the demonstration o f a rise and/orfall in s erial troponin result s above the URL. These resu lts were obtained using Siemens [employer] IM TnI Hreagent. Results from di fferent methodologies s hould not becompared to o ne another as quantitative results and URLs mayvar y by method. LACTIC [id number] 23:01:00 Test Item Value Reference Range Interpretation Comments LACTIC ACID (test code = LACT) 1.3 mmol/L 0.4-1.9 N LIPOPROTEIN [id number] 21:16:00 Test Item Value Reference Range Interpretation Comments LIPOPROTEIN LDL 88.0 mg/dL 0-100 N <100 OPTIMAL 100-129 NEAR (test code = LDL) OPTIMAL/AB OVE [id number] HIGH>BX=016 VANDANA Y HIGH*Guidelines provided by the National Cholesterol EducationProgra m Adult Treatment Panel III B-TYPE NATRIURETIC [id number] 21:04:00 Test Item Value Reference Range Interpretation Comments B-TYPE NATRIURETIC PEPTIDE (test 3016.0 PG/ML 0-100 H code = BNP) TROP-I HIGH [id number] 20:58:00 Test Item Value Reference Range Interpretation Comments TROP-I HIGH 500 ng/L 0-34 HH Critical result called to SENSITIVITY (test SHALINI Rowley code = TROPIHS) [id number] at 205512/05/22Nurse r ead back result and tech confirmed it's correct? Y ESCAUTION: Units of the cu rrent test methodology (ng /L) differfrom the prior test methodology (ng /mL) by a factor of 1000. 99t h Percentile Uppe r Reference Limit (URL): Fe males: 34 ng/LMales: 54 n g/L In order to distin guish acute elevations of h igh sensitivitytrop onin from other clinical conditions, the FourthUnive rsal Definition of M yocardial Infarction stressesclinica l assessment and the demonstration o f a rise and/orfall in s erial troponin result s above the URL. These resu lts were obtained using [employer] IM TnI Hreagent. Results from di fferent methodologies s hould not becompared to o ne another as quantitative results and URLs mayvar y by method. BASIC METABOLIC [id number] 20:58:00 Test Item Value Reference Range Interpretation Comments SODIUM (test code = 139 mEq/L 134-147 N NA) POTASSIUM (test code 3.3 mEq/L 3.4-5.0 L = K) CHLORIDE (test code 94 mEq/L 100-108 L = CL) CARBON DIOXIDE (test 26 mEq/l 21-33 N code = CO2) ANION GAP (test code 22 0-20 H = GAP) GLUCOSE (test code = 302 mg/dL 70-110 H GLU) BLOOD UREA NITROGEN 51 mg/dL 7-18 H (test code = BUN) GLOMERULAR 6.3 80-90 L The Glomerular FILTRATION RATE Filtration R ate is a (test code = GFR) calculated parameterbased on serum Creatinine, pat ient age and sex. GFR va luesless than 60 mL/min/ 1.73 square meters a re indicative ofCh ronic Kidney Disease. Values less than 15 mL/min/1.73squa re meters indicate Kidney failure. The calculation forGFR is based on the CKD-EPI (2020) calculat ion. This formulais race indifferent and is the recommended for cassidy for GFRby the Natio nal Kidney Foundati on for Adults.The GFR will not calculate if th e sex is unknown or if thepatient's ag e is <18 years. CREATININE (test 6.9 mg/dL 0.6-1.3 H code = CREAT) CALCIUM (test code = 8.4 mg/dL 8.0-10.5 N CA) HEPATIC FUNCTION [id number] 20:58:00 Test Item Value Reference Range Interpretation Comments TOTAL PROTEIN (test code = PROT) 7.4 g/dL 6.4-8.2 N ALBUMIN (test code = ALB) 2.80 g/dL 3.4-5.0 L BILIRUBIN TOTAL (test code = 0.20 mg/dL 0.0-1.0 N BILT) BILIRUBIN DIRECT (test code = 0.10 MG/DL 0.0-0.30 N BILD) BILIRUBIN INDIRECT (test code = 0.10 MG/DL BILIND) SGOT/AST (test code = AST) 14 IUnit/L 15-37 L SGPT/ALT (test code = ALT) < 7 IUnit/L 30-65 L ALKALINE PHOSPHATASE TOTAL (test 145 IUnit/L 20-125 H code = ALKP) [id number] 20:58:00 Test Item Value Reference Range Interpretation Comments MAGNESIUM (test code = MAG) 2.06 mg/dL 1.80-2.40 N GLUCOSE [id number] 20:43:00 Test Item Value Reference Range Interpretation Comments GLUCOSE BEDSIDE (test 291 MG/DL 70-110 H Perfor med by certified code = GLUBED) 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 [facility] CBC W/AUTO [id number] 20:41:00 Test Item Value Reference Range Interpretation Comments WHITE BLOOD CELL (test code = 11.5 x10 3/uL 4.5-11.0 H WBC) RED BLOOD CELL (test code = 3.64 x10 6/uL 3.54-5.02 N RBC) HEMOGLOBIN (test code = HGB) 9.5 g/dL 11.0-15.0 L HEMATOCRIT (test code = HCT) 29.9 % 33.0-45.0 L MEAN CELL VOLUME (test code = 82.1 fL 81.0-99.0 N MCV) MEAN CELL HGB (test code = 26.1 pg 27.0-33.0 L MCH) MEAN CELL HGB CONCETRATION 31.8 g/dL 33.0-37.0 L (test code = MCHC) RED CELL DISTRIBUTION WIDTH CV 16.4 % 11.5-14.5 H (test code = RDW) RED CELL DISTRIBUTION WIDTH SD 49.1 fL 37.0-54.0 N (test code = RDW-SD) PLATELET COUNT (test code = 406 x10 3/uL 150-400 H PLT) MEAN PLATELET VOLUME (test 11.2 fL 7.0-9.0 H code = MPV) NEUTROPHIL % (test code = NT%) 88.5 % 56.0-77.0 H IMMATURE GRANULOCYTE % (test 1.5 % 0.0-2.0 N code = IG%) LYMPHOCYTE % (test code = LY%) 5.6 % 14.0-32.0 L MONOCYTE % (test code = MO%) 4.3 % 4.8-9.0 L EOSINOPHIL % (test code = EO%) 0.0 % 0.3-3.7 L BASOPHIL % (test code = BA%) 0.1 % 0.0-2.0 N NUCLEATED RBC % (test code = 0.2 % 0-0 H NRBC%) NEUTROPHIL # (test code = NT#) 10.19 x10 3/uL 2.0-7.6 H IMMATURE GRANULOCYTE # (test 0.17 x10 3/uL 0.00-0.03 H code = IG#) LYMPHOCYTE # (test code = LY#) 0.64 x10 3/uL 1.0-3.8 L MONOCYTE # (test code = MO#) 0.49 x10 3/uL 0.1-0.8 N EOSINOPHIL # (test code = EO#) 0.00 x10 3/uL 0.0-0.2 N BASOPHIL # (test code = BA#) 0.01 x10 3/uL 0.0-0.2 N NUCLEATED RBC # (test code = 0.02 x10 3/uL 0.0-0.1 N NRBC#) MANUAL DIFF REQUIRED (test NO code = MDIFF) - XR CHEST 1 [id number] 00:00:00 [facility] 1960 Sex: F FAX: Devon Mai [place]: St: REG Name: CITLALY DAVIS [facility] : 1960 Age/S: 62/F [address] [place] [address] Unit #: [id number] Loc: [place] [address] Phys: Devon Cole MD Acct: [id number] Date: Status: REG ER PHONE #: [phone] Exam Date: 12/05/20222023 FAX #: [phone] Reason: Chest Pain EXAMS: CPT CODE: [id number] XR CHEST 1 V 14928 PROCEDURE INFORMATION: Exam: XR Chest Exam date and time: 12/05/2022 8:14 PM Age: 62 years old Clinical indication: Other: Chest pain TECHNIQUE: Imaging protocol: Radiologic exam of the chest. Views: 1 view. COMPARISON: CR XR CHEST 1V 07/24/2019 3:21 PM FINDINGS: Lungs: Mild hypoinflation associated with central pulmonary vascular congestion and hazy bilateral perihilar/lower lobe opacities asymmetrically greater in the right lower lobe suggesting asymmetrical pulmonary edema or pneumonia. Small calcified granuloma medially in the left lungapex. Pleural spaces: Unremarkable. No pleural effusion. No pneumothorax. Heart/Mediastinum: Stablemild cardiomegaly. 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 No definite acute osseous abnormality impression Soft tissues: Left axillary and subclavian stents are again noted. IMPRESSION: 1. Mild hypoinflation associated with central pulmonary vascular congestion and hazy bilateral perihilar/lower lobe opacities asymmetrically greater in the right lower lobe suggesting asymmetrical pulmonary edema or pneumonia. 2. Stable mild cardiomegaly. 3. 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 at 2049 Reported and signed by: Lester Ureña M.D. CC: Devon Cole MD Technologist: Jey Dallas Trnscrd Date/Time/By: 12/05/2022 (2049) : By: [email or web address] Orig Print D/T: S: 12/05/2022 (2049) PAGE 1 Signed ReportPOCT GLUCOSE (AUTOMATED)2022-10-25 14:39:49 Test Item Value Reference Range Interpretation Comments POCT GLU (test code = 4860909500) 143 mg/dL 70-110 H Lab Interpretation (test code = Abnormal 15615-9) [facility] GLUCOSE (AUTOMATED)2022-10-25 14:39:49 Test Item Value Reference Range Interpretation Comments POCT GLU (test code = 2242736457) 143 mg/dL 70-110 H Lab Interpretation (test code = Abnormal 25021-5) [facility] GLUCOSE (AUTOMATED)2022-10-25 10:22:36 Test Item Value Reference Range Interpretation Comments POCT GLU (test code = 1841851186) 105 mg/dL 70-110 Lab Interpretation (test code = Normal 56678-3) [facility] GLUCOSE (AUTOMATED)2022-10-25 07:05:36 Test Item Value Reference Range Interpretation Comments POCT GLU (test code = 2313291998) 203 mg/dL 70-110 H Lab Interpretation (test code = Abnormal 17751-8) [facility]), WHOLE [id number] 03:50:36 Test Item Value Reference Range Interpretation Comments Vitamin B1, Whole 108 nmol/L 70-180 INTERPRETI VE INFORMATION: Blood (test code = Vitamin B 1, Whole Blood 16834-8) This assay zaida ures the concentration o f thiamine diphosphate (TD P), the primary active form of vitamin B1. Amy roximately 90 percent of v itamin B1 present in whol e blood is TDP. Thiamine a nd thiamine monoph osphate, which comprise the remaining 10 pe rcent, are not measured. T his test was developed a nd its performance characteristics determined by [facility]. I t has not been cleared or approved by the [place] Food and Drug Administration. This test was performed i n a CLIA certified labor atory and is intended for clinical purposes.Perfor med By: [facility] [address] [address]H aboratory Director: Sofya Mcfarlane MD, PhD [facility] (THIAMINE), WHOLE [id number] 03:50:36 Test Item Value Reference Range Interpretation Comments Vitamin B1, Whole 108 nmol/L 70-180 INTERPRETI VE INFORMATION: Blood (test code = Vitamin B 1, Whole Blood 96774-7) This assay azida ures the concentration o f thiamine diphosphate (TD P), the primary active form of vitamin B1. Amy roximately 90 percent of v itamin B1 present in whol e blood is TDP. Thiamine a nd thiamine monoph osphate, which comprise the remaining 10 pe rcent, are not measured. T his test was developed a nd its performance characteristics determined by [facility]. I t has not been cleared or approved by the [place] Food and Drug Administration. This test was performed i n a CLIA certified labor atory and is intended for clinical purposes.Perfor med By: [address] [address]J aboratory Director: Sofya Mcfarlane MD, PhD [facility]2022-10-25 02:11:24 Test Item Value Reference Range Interpretation Comments POCT GLU (test code = 6798207612) 182 mg/dL 70-110 H Lab Interpretation (test code = Abnormal 22485-2) [facility] Peripheral Vein # 00:01:14 Test Item Value Reference Range Interpretation Comments Blood Culture-Aerobic No organisms No growth Previo us (test code = 26906-8) isolated prelim inary verified result was Culture In Progress on 10/19/2022 at 2102 CSTPreviou s preliminary verified result was No growth a t 24 hours on 10/20/2022 at 1801 CSTPreviou s preliminary verified result was No growth a t 48 hours on 10/21/2022 at 1801 CSTPreviou s preliminary verified result was No growth a t 72 hours on 10/22/2022 at 1801 [facility] Blood No organisms No growth Previous Culture-Anaerobic isolated preliminar y (test code = 37156-3) verifi ed result was Culture In Progress on 10/19/2022 at 2102 CSTPreviou s preliminary verified result was No growth a t 24 hours on 10/20/2022 at 1801 CSTPreviou s preliminary verified result was No growth a t 48 hours on 10/21/2022 at 1801 CSTPreviou s preliminary verified result was No growth a t 72 hours on 10/22/2022 at 1801 [facility] Lab Interpretation Normal (test code = 15723-7) [facility] GLUCOSE (AUTOMATED)2022-10-24 17:50:26 Test Item Value Reference Range Interpretation Comments POCT GLU (test code = 5052658280) 226 mg/dL 70-110 H Lab Interpretation (test code = Abnormal 50845-9) [facility] GLUCOSE (AUTOMATED)2022-10-24 15:33:06 Test Item Value Reference Range Interpretation Comments POCT GLU (test code = 7866221835) 107 mg/dL 70-110 Lab Interpretation (test code = Normal 84688-5) [facility]2022-[facility]-30 12:16:53 Test Item Value Reference Range Interpretation Comments PHOSPHORUS (test code = 9193725278) 4.6 mg/dL 2.5-5.0 Lab Interpretation (test code = Normal 35568-9) [facility]2022-[facility]-30 12:16:53 Test Item Value Reference Range Interpretation Comments MAGNESIUM (test code = 7672020058) 2.3 mg/dL 1.7-2.4 Lab Interpretation (test code = Normal 76065-2) [facility] (NA, K, CL, CO2, GLUCOSE, BUN, CREATININE, CA)2022-10-24 12:16:53 Test Item Value Reference Range Interpretation Comments NA (test code = 134 mmol/L 135-145 L 3223556569) K (test code = 4.8 mmol/L 3.5-5.0 2552557957) CL (test code = 99 mmol/L 98-108 2496816066) CO2 TOTAL (test code = 18 mmol/L 23-31 L 7126620289) AGAP (test code = 2-16 H 0360326840) BUN (test code = 46 mg/dL 7-23 H 5311820163) GLUCOSE (test code = 93 mg/dL 70-110 2658170424) CREATININE (test code = 7.26 mg/dL 0.50-1.04 H 5604689305) CALCIUM (test code = 9.0 mg/dL 8.6-10.6 7248053051) eGFR (test code = mL/min/1.73m2 5114151209) ALAINA (test code = ALAINA) Association of [...] tests). Lab Interpretation Abnormal (test code = 51066-4) [facility]2022-[facility]-30 12:16:53 Test Item Value Reference Range Interpretation Comments PHOSPHORUS (test code = 7687548148) 4.6 mg/dL 2.5-5.0 Lab Interpretation (test code = Normal 27057-9) [facility] METABOLIC PANEL (NA, K, CL, CO2, GLUCOSE, BUN, CREATININE, CA)2022-10-24 12:16:53 Test Item Value Reference Range Interpretation Comments NA (test code = 134 mmol/L 135-145 L 4979104591) K (test code = 4.8 mmol/L 3.5-5.0 3428831894) CL (test code = 99 mmol/L 98-108 1591257045) CO2 TOTAL (test code = 18 mmol/L 23-31 L 1315256601) AGAP (test code = 2-16 H 5088366116) BUN (test code = 46 mg/dL 7-23 H 8413350709) GLUCOSE (test code = 93 mg/dL 70-110 1221350776) CREATININE (test code = 7.26 mg/dL 0.50-1.04 H 4325203144) CALCIUM (test code = 9.0 mg/dL 8.6-10.6 7521490109) eGFR (test code = mL/min/1.73m2 1126944056) ALAINA (test code = ALAINA) Association of [...] tests). Lab Interpretation Abnormal (test code = 04693-7) [facility]2022-[facility]-30 12:16:53 Test Item Value Reference Range Interpretation Comments MAGNESIUM (test code = 1188975434) 2.3 mg/dL 1.7-2.4 Lab Interpretation (test code = Normal 02170-6) [facility] HospitalCBC WITHOUT [id number] 11:10:22 Test Item Value Reference Range Interpretation Comments WBC (test code = 6690-2) See_Comment [A utomated message] The system [employer] generated this result transmit vikki reference range : 4.30 - 11.10 10*3/?L. The reference range was not used to interpret this result as normal/abnormal . RBC (test code = 789-8) See_Comment L [Au tomated message] The system [employer] generated this result transmit vikki reference range : 3.93 - 5.25 10* 6/?L. The reference r henry was not used to interpret this result as normal/abnormal . HGB (test code = 718-7) 7.1 g/dL 11.6-15.0 L HCT (test code = 4544-3) 21.0 % 35.7-45.2 L MCH (test code = 785-6) 28.7 pg 25.9-32.8 MCV (test code = 787-2) 85.0 fL 80.6-95.5 MCHC (test code = 786-4) 33.8 g/dL 31.6-35.1 PLT (test code = 777-3) See_Comment [Au tomated message] The system [employer] generated this result transmit vikki reference range : 166 - 358 10*3/?L. The reference range was not used to interpret this result as normal/abnormal . MPV (test code = 9.7 fL 9.5-12.9 91886-4) RDW-CV (test code = 14.8 % 12.0-15.5 788-0) RDW-SD (test code = 45.3 fL 39.0-49.9 10624-9) NRBC x10^3 (test code = See_Comment [Au tomated message] 7664808109) The system [employer] generated this result transmit vikki reference range : 10*3/?L. The reference range was not used to interpret this result as normal/abnormal . NRBC/100 WBC (test code See_Comment [Au tomated message] = 6001245037) The system [employer] generated this result transmit vikki reference range : 0.0 - 10.0 /100 WBC s. The reference r henry was not used to interpret this result as normal/abnormal . IPF % (test code = 2611731553) Lab Interpretation (test Abnormal code = 15324-4) [facility] WITHOUT [id number] 11:10:22 Test Item Value Reference Range Interpretation Comments WBC (test code = 6690-2) See_Comment [A utomated message] The system [employer] generated this result transmit vikki reference range : 4.30 - 11.10 10*3/?L. The reference range was not used to interpret this result as normal/abnormal . RBC (test code = 789-8) See_Comment L [Au tomated message] The system [employer] generated this result transmit vikki reference range : 3.93 - 5.25 10* 6/?L. The reference r henry was not used to interpret this result as normal/abnormal . HGB (test code = 718-7) 7.1 g/dL 11.6-15.0 L HCT (test code = 4544-3) 21.0 % 35.7-45.2 L MCH (test code = 785-6) 28.7 pg 25.9-32.8 MCV (test code = 787-2) 85.0 fL 80.6-95.5 MCHC (test code = 786-4) 33.8 g/dL 31.6-35.1 PLT (test code = 777-3) See_Comment [Au tomated message] The system [employer] generated this result transmit vikki reference range : 166 - 358 10*3/?L. The reference range was not used to interpret this result as normal/abnormal . MPV (test code = 9.7 fL 9.5-12.9 88773-7) RDW-CV (test code = 14.8 % 12.0-15.5 788-0) RDW-SD (test code = 45.3 fL 39.0-49.9 40754-4) NRBC x10^3 (test code = See_Comment [Au tomated message] 5879434915) The system [employer] h generated this result transmit vikki reference range : 10*3/?L. The reference range was not used to interpret this result as normal/abnormal . NRBC/100 WBC (test code See_Comment [Au tomated message] = 0971469650) The system [employer] ch generated this result transmit vikki reference range : 0.0 - 10.0 /100 WBC s. The reference r henry was not used to interpret this result as normal/abnormal . IPF % (test code = 2871864297) Lab Interpretation (test Abnormal code = 77698-8) [facility] GLUCOSE (AUTOMATED)2022-10-24 10:09:10 Test Item Value Reference Range Interpretation Comments POCT GLU (test code = 2897140400) 88 mg/dL 70-110 Lab Interpretation (test code = Normal 93750-8) [facility] GLUCOSE (AUTOMATED)2022-10-24 05:42:27 Test Item Value Reference Range Interpretation Comments POCT GLU (test code = 5960090050) 183 mg/dL 70-110 H Lab Interpretation (test code = Abnormal 38292-6) [facility] GLUCOSE (AUTOMATED)2022-10-24 03:27:22 Test Item Value Reference Range Interpretation Comments POCT GLU (test code = 9839294210) 169 mg/dL 70-110 H Lab Interpretation (test code = Abnormal 82016-7) [facility] GLUCOSE (AUTOMATED)2022-10-23 23:17:48 Test Item Value Reference Range Interpretation Comments POCT GLU (test code = 3256758352) 197 mg/dL 70-110 H Lab Interpretation (test code = Abnormal 13620-2) [facility] GLUCOSE (AUTOMATED)2022-10-23 20:23:42 Test Item Value Reference Range Interpretation Comments POCT GLU (test code = 5315866404) 219 mg/dL 70-110 H Lab Interpretation (test code = Abnormal 34200-6) [facility]2022-10-23 14:52:30 Test Item Value Reference Range Interpretation Comments POCT GLU (test code = 9879755206) 157 mg/dL 70-110 H Lab Interpretation (test code = Abnormal 76915-2) [facility]2022-[facility]-29 14:28:59 Test Item Value Reference Range Interpretation Comments PHOSPHORUS (test code = 5036172204) 4.3 mg/dL 2.5-5.0 Lab Interpretation (test code = Normal 05190-7) [facility]2022-[facility]-29 14:28:59 Test Item Value Reference Range Interpretation Comments MAGNESIUM (test code = 0963926032) 2.2 mg/dL 1.7-2.4 Lab Interpretation (test code = Normal 49878-0) [facility] (NA, K, CL, CO2, GLUCOSE, BUN, CREATININE, CA)2022-10-23 14:28:58 Test Item Value Reference Range Interpretation Comments NA (test code = 136 mmol/L 135-145 9960758736) K (test code = 4.5 mmol/L 3.5-5.0 4121685405) CL (test code = 101 mmol/L 98-108 9341148689) CO2 TOTAL (test code = 19 mmol/L 23-31 L 3157075734) AGAP (test code = 2-16 9665613136) BUN (test code = 34 mg/dL 7-23 H 9128255393) GLUCOSE (test code = 149 mg/dL 70-110 H 1214353306) CREATININE (test code = 5.13 mg/dL 0.50-1.04 H 6444369643) CALCIUM (test code = 8.9 mg/dL 8.6-10.6 8701889342) eGFR (test code = mL/min/1.73m2 1629885380) ALAINA (test code = ALAINA) Association of [...] tests). Lab Interpretation Abnormal (test code = 02770-0) [facility] WITHOUT [id number] 14:20:19 Test Item Value Reference Range Interpretation Comments WBC (test code = 6690-2) See_Comment [A utomated message] The system [employer] generated this result transmit vikki reference range : 4.30 - 11.10 10*3/?L. The reference range was not used to interpret this result as normal/abnormal . RBC (test code = 789-8) See_Comment L [Au tomated message] The system [employer] generated this result transmit vikki reference range : 3.93 - 5.25 10* 6/?L. The reference r henry was not used to interpret this result as normal/abnormal . HGB (test code = 718-7) 7.3 g/dL 11.6-15.0 L HCT (test code = 4544-3) 22.2 % 35.7-45.2 L MCH (test code = 785-6) 28.5 pg 25.9-32.8 MCV (test code = 787-2) 86.7 fL 80.6-95.5 MCHC (test code = 786-4) 32.9 g/dL 31.6-35.1 PLT (test code = 777-3) See_Comment [Au tomated message] The system [employer] generated this result transmit vikki reference range : 166 - 358 10*3/?L. The reference range was not used to interpret this result as normal/abnormal . MPV (test code = 10.0 fL 9.5-12.9 19542-4) RDW-CV (test code = 14.8 % 12.0-15.5 788-0) RDW-SD (test code = 47.0 fL 39.0-49.9 12143-1) NRBC x10^3 (test code = See_Comment [Au tomated message] 2088418551) The system [employer] generated this result transmit vikki reference range : 10*3/?L. The reference range was not used to interpret this result as normal/abnormal . NRBC/100 WBC (test code See_Comment [Au tomated message] = 9615516240) The system [employer] generated this result transmit vikki reference range : 0.0 - 10.0 /100 WBC s. The reference r henry was not used to interpret this result as normal/abnormal . IPF % (test code = 5043374658) Lab Interpretation (test Abnormal code = 61863-4) [facility] GLUCOSE (AUTOMATED)2022-10-23 10:30:55 Test Item Value Reference Range Interpretation Comments POCT GLU (test code = 8326742325) 130 mg/dL 70-110 H Lab Interpretation (test code = Abnormal 31893-6) [facility] GLUCOSE (AUTOMATED)2022-10-23 06:01:44 Test Item Value Reference Range Interpretation Comments POCT GLU (test code = 6721277517) 144 mg/dL 70-110 H Lab Interpretation (test code = Abnormal 45733-5) [facility] GLUCOSE (AUTOMATED)2022-10-23 02:36:48 Test Item Value Reference Range Interpretation Comments POCT GLU (test code = 3987272215) 194 mg/dL 70-110 H Lab Interpretation (test code = Abnormal 18341-5) [facility] GLUCOSE (AUTOMATED)2022-10-22 23:13:29 Test Item Value Reference Range Interpretation Comments POCT GLU (test code = 0232119914) 238 mg/dL 70-110 H Lab Interpretation (test code = Abnormal 56277-2) [facility] GLUCOSE (AUTOMATED)2022-10-22 18:40:14 Test Item Value Reference Range Interpretation Comments POCT GLU (test code = 7107829089) 163 mg/dL 70-110 H Lab Interpretation (test code = Abnormal 10745-1) [facility] GLUCOSE (AUTOMATED)2022-10-22 13:47:13 Test Item Value Reference Range Interpretation Comments POCT GLU (test code = 9125723176) 143 mg/dL 70-110 H Lab Interpretation (test code = Abnormal 69326-2) [facility] GLUCOSE (AUTOMATED)2022-10-22 10:33:55 Test Item Value Reference Range Interpretation Comments POCT GLU (test code = 7973424719) 166 mg/dL 70-110 H Lab Interpretation (test code = Abnormal 23227-2) [facility] GLUCOSE (AUTOMATED)2022-10-22 07:11:56 Test Item Value Reference Range Interpretation Comments POCT GLU (test code = 8477888023) 231 mg/dL 70-110 H Lab Interpretation (test code = Abnormal 12565-4) [facility] GLUCOSE (AUTOMATED)2022-10-22 03:08:08 Test Item Value Reference Range Interpretation Comments POCT GLU (test code = 8561057293) 273 mg/dL 70-110 H Lab Interpretation (test code = Abnormal 63802-3) [facility] GLUCOSE (AUTOMATED)2022-10-21 23:05:29 Test Item Value Reference Range Interpretation Comments POCT GLU (test code = 6007117296) 308 mg/dL 70-110 H Lab Interpretation (test code = Abnormal 50763-1) [facility] [id number] 21:15:43 Test Item Value Reference Range Interpretation Comments PHENY FREE (test code 1.0-2.0 L = 4953989093) ALAINA (test code = ALAINA) Toxic Range: ? Greater than 2.5 ug/mL Test developed and characteristics determined by [facility]. Lab Interpretation Abnormal (test code = 34839-2) [facility] [id number] 21:15:43 Test Item Value Reference Range Interpretation Comments PHENY FREE (test code 1.0-2.0 L = 7600567910) ALAINA (test code = ALAINA) Toxic Range: ? Greater than 2.5 ug/mL Test developed and characteristics determined by [facility] [facility]. Lab Interpretation Abnormal (test code = 75835-2) [facility] 18:45:36 Test Item Value Reference Range Interpretation Comments POCT GLU (test code = 0923926308) 324 mg/dL 70-110 H Lab Interpretation (test code = Abnormal 94769-5) [facility] (NA, K, CL, CO2, GLUCOSE, BUN, CREATININE, CA)2022-10-21 18:35:28 Test Item Value Reference Range Interpretation Comments NA (test code = 134 mmol/L 135-145 L 6967698825) K (test code = 5.3 mmol/L 3.5-5.0 H 2892242297) CL (test code = 93 mmol/L 98-108 L 9790758691) CO2 TOTAL (test code = 28 mmol/L 23-31 4795170698) AGAP (test code = 2-16 7687559635) BUN (test code = 54 mg/dL 7-23 H 9437974635) GLUCOSE (test code = 279 mg/dL 70-110 H 6112673889) CREATININE (test code = 6.42 mg/dL 0.50-1.04 H 9013484697) CALCIUM (test code = 8.2 mg/dL 8.6-10.6 L 4846801684) eGFR (test code = mL/min/1.73m2 8227029569) ALAINA (test code = ALAINA) Association of [...] tests). Lab Interpretation Abnormal (test code = 67816-5) [facility] GLUCOSE (AUTOMATED)2022-10-21 15:00:49 Test Item Value Reference Range Interpretation Comments POCT GLU (test code = 5877099765) 123 mg/dL 70-110 H Lab Interpretation (test code = Abnormal 47559-2) [facility] GLUCOSE (AUTOMATED)2022-10-21 11:33:39 Test Item Value Reference Range Interpretation Comments POCT GLU (test code = 0043522361) 129 mg/dL 70-110 H Lab Interpretation (test code = Abnormal 67801-1) [facility] GLUCOSE (AUTOMATED)2022-10-21 06:18:09 Test Item Value Reference Range Interpretation Comments POCT GLU (test code = 6365774312) 145 mg/dL 70-110 H Lab Interpretation (test code = Abnormal 89017-8) [facility] GLUCOSE (AUTOMATED)2022-10-21 03:10:53 Test Item Value Reference Range Interpretation Comments POCT GLU (test code = 7801095860) 117 mg/dL 70-110 H Lab Interpretation (test code = Abnormal 56590-1) [facility] GLUCOSE (AUTOMATED)2022-10-20 22:59:19 Test Item Value Reference Range Interpretation Comments POCT GLU (test code = 3954712993) 174 mg/dL 70-110 H Lab Interpretation (test code = Abnormal 48762-2) [facility]EN[facility] [id number] 22:57:19 Test Item Value Reference Range Interpretation Comments PHENY FREE (test code 1.0-2.0 L = 1952041286) ALAINA (test code = ALAINA) Toxic Range: ? Greater than 2.5 ug/mL Test developed and characteristics determined by [facility]. Lab Interpretation Abnormal (test code = 84228-1) [facility]2022-10-20 19:37:31 Test Item Value Reference Range Interpretation Comments POCT GLU (test code = 6070812962) 86 mg/dL 70-110 Lab Interpretation (test code = Normal 84504-6) [facility] HospitalTROPONIN [id number] 19:03:02 Test Item Value Reference Interpretation Comments Range TROPONIN I (test 0.423 ng/mL See_Comment H [Automated code = 9691080720) message] The system which generated this result [...] biotin. Lab Interpretation Abnormal (test code = 32013-1) [facility]TR[facility] [id number] 19:03:02 Test Item Value Reference Interpretation Comments Range TROPONIN I (test 0.423 ng/mL See_Comment H [Automated code = 5787714326) message] The system which generated this result [...] biotin. Lab Interpretation Abnormal (test code = 86480-9) [facility] [id number] 15:37:05 Test Item Value Reference Interpretation Comments Range TROPONIN I (test 0.520 ng/mL See_Comment H [Automated code = 7066471953) message] The system which generated this result [...] biotin. Lab Interpretation Abnormal (test code = 61881-5) [facility] METABOLIC PANEL (NA, K, CL, CO2, GLUCOSE, BUN, CREATININE, CA)2022-10-20 13:42:17 Test Item Value Reference Range Interpretation Comments NA (test code = 142 mmol/L 135-145 3995104799) K (test code = 6.3 mmol/L 3.5-5.0 HH 5693343094) CL (test code = 100 mmol/L 98-108 2223074199) CO2 TOTAL (test code = 24 mmol/L 23-31 5028398881) AGAP (test code = 2-16 H 9066569895) BUN (test code = 72 mg/dL 7-23 H 6628686591) GLUCOSE (test code = 110 mg/dL 70-110 1754177468) CREATININE (test code = 8.77 mg/dL 0.50-1.04 H 2691831060) CALCIUM (test code = 9.8 mg/dL 8.6-10.6 3753887694) eGFR (test code = mL/min/1.73m2 8424376800) ALAINA (test code = ALAINA) Association of [...] tests). Lab Interpretation Abnormal (test code = 73233-1) [facility]MAG[facility]UM2022-[facility]-26 13:23:50 Test Item Value Reference Range Interpretation Comments MAGNESIUM (test code = 7556842368) 2.2 mg/dL 1.7-2.4 Lab Interpretation (test code = Normal 21688-8) [facility]PHOSPHORUS2022-11-26 13:23:50 Test Item Value Reference Range Interpretation Comments PHOSPHORUS (test code = 10.5 mg/dL 2.5-5.0 H 8284951929) Lab Interpretation (test code = Abnormal 01690-0) [facility] GLUCOSE (AUTOMATED)2022-10-20 10:16:24 Test Item Value Reference Range Interpretation Comments POCT GLU (test code = 0830970303) 117 mg/dL 70-110 H Lab Interpretation (test code = Abnormal 77798-9) [facility] GLUCOSE (AUTOMATED)2022-10-20 06:29:35 Test Item Value Reference Range Interpretation Comments POCT GLU (test code = 1896400456) 110 mg/dL 70-110 Lab Interpretation (test code = Normal 56053-8) [facility] PTH CALCIUM [id number] 04:17:41 Test Item Value Reference Range Interpretation Comments PTH-INTACT (test code = 1239.0 pg/mL 12.0-88.0 H 7751390046) PTH-CA Interpretation Fur[facility] clinical (test code = 7908006300) jose a needed for interpretation. CALCIUM (test code = 9.1 mg/dL 8.6-10.6 5218303020) Lab Interpretation (test Abnormal code = 48226-5) [facility] PTH CALCIUM [id number] 04:17:41 Test Item Value Reference Range Interpretation Comments PTH-INTACT (test code = 1239.0 pg/mL 12.0-88.0 H 6020452283) PTH-CA Interpretation [facility] clinical (test code = 8410531013) jose a needed for interpretation. CALCIUM (test code = 9.1 mg/dL 8.6-10.6 7768261406) Lab Interpretation (test Abnormal code = 45079-4) [facility] HospitalSALICYLATE2022-11-26 03:14:15 SALICYLATE<10mg/L112/19/2021 9:14 PM [facility]STUTMB LABORATORY SERVICESTherapeutic Range: ? Analgesic and Antipyretic Use ? 20-100 mg/L ? ? Anti- Inflammatory Use ? 100-250 mg/L Toxic Range: ? Greater than 300 mg/LUnHarris [facility] HospitalSALICYLATE 2022-10-20 03:14:15SALICYLATE<10mg/L112/19/2021 9:14 PM [facility]UTMB LABORATORY SERVICESTherapeutic Range: ? Analgesic and Antipyretic Use ? 20- 100 mg/L ? ? Anti-Inflammatory Use ? 100-250 mg/L Toxic Range: ? Greater than 300 mg/LUnHarris Health System [facility] HospitalACETAMINOPHEN2022-11-26 03:14:05 Test Item Value Reference Range Interpretation Comments ACETAMINOP (test code = 10.0-30.0 L 2182385559) ALAINA (test code = ALAINA) Toxic: Greater than 200 ug/mL @ 4 hour post ingestion or greater than 50 ug/mL @ 12 hour post ingestion Lab Interpretation (test Abnormal code = 99698-3) [facility]:14[facility]05 Test Item Value Reference Range Interpretation Comments ACETAMINOP (test code = 10.0-30.0 L 2056844918) ALAINA (test code = ALAINA) Toxic: Greater than 200 ug/mL @ 4 hour post ingestion or greater than 50 ug/mL @ 12 hour post ingestion Lab Interpretation (test Abnormal code = 10148-3) [facility]PO[facility])2022-10-20 02:54:34 Test Item Value Reference Range Interpretation Comments POCT GLU (test code = 5307579716) 102 mg/dL 70-110 Lab Interpretation (test code = Normal 69469-7) [facility] HospitalLipid Panel (Total Cholesterol, Triglycerides, HDL) - [id number] 02:43:16 Test Item Value Reference Range Interpretation Comments CHOL (test code = 228 mg/dL 120-200 H 7006731667) HDL (test code = 55 mg/dL See_Comment [Automated message] 2957712056) The system [employer] generated this result transmit vikki reference range : >=50. The refer ence range was not u sed to interpret th is result as normal/abnormal . HDLC RATIO (test code = See_Comment [Au tomated message] 9806114144) The system [employer] generated this result transmit vikki reference range : <=4.5. The refe rence range was not u sed to interpret th is result as normal/abnormal . TRIG (test code = 148 mg/dL 30-170 0030892430) LDL CHOL (test code = 143 mg/dL See_Comment [Auto mated message] 59298-0) The system [employer] generated this result transmit vikki reference range : <=160. The refe rence range was not u sed to interpret th is result as normal/abnormal . VLDL (test code = 30 mg/dL 5-60 0764519641) Lab Interpretation (test Abnormal code = 15287-0) [facility] (Total Cholesterol, Triglycerides, HDL) - [id number] 02:43:16 Test Item Value Reference Range Interpretation Comments CHOL (test code = 228 mg/dL 120-200 H 0139090616) HDL (test code = 55 mg/dL See_Comment [Automated message] 5802618592) The system [employer] generated this result transmit vikki reference range : >=50. The refer ence range was not u sed to interpret th is result as normal/abnormal . HDLC RATIO (test code = See_Comment [Au tomated message] 4218776488) The system [employer] generated this result transmit vikki reference range : <=4.5. The refe rence range was not u sed to interpret th is result as normal/abnormal . TRIG (test code = 148 mg/dL 30-170 6369253905) LDL CHOL (test code = 143 mg/dL See_Comment [Auto mated message] 75258-6) The system [employer] generated this result transmit vikki reference range : <=160. The refe rence range was not u sed to interpret th is result as normal/abnormal . VLDL (test code = 30 mg/dL 5-60 6378309343) Lab Interpretation (test Abnormal code = 44430-2) [facility]AC [facility] 20 + Lactic [id number] 02:12:43 Test Item Value Reference Range Interpretation Comments PH (test code = 2) 7.35-7.45 PCO2 (test code = See_Comment [Automate d 2469486335) message] The sy stem which generated this result transmitted reference range : 35 - 45 mmHg. The reference range was not used to interpret this result as normal/abnormal . PO2 (test code = See_Comment L [Automated 4361274390) message] The sy stem which generated this result transmitted reference range : 80 - 100 mmHg. The reference range was not used to interpret this result as normal/abnormal . HCO3 (test code = See_Comment [Automate d 5091452627) message] The sy stem which generated this result transmitted reference range : 22 - 26 mEq/L. The reference range was not used to interpret this result as normal/abnormal . BE (test code = See_Comment [Automated 6916143185) message] The sy stem which generated this result transmitted reference range : -3.0 - 3.0 mEq/ L. The reference r henry was not used to interpret this result as normal/abnormal . THB (test code = 10.8 g/dL 12.0-16.0 L 4594277616) %O2HB (test code = 93.4 % 94.0-99.0 L 8469253684) %COHB ART (test code = 0.4 % 0.0-1.5 3777448198) %METHB ART (test code = 0.3 % 0.4-1.5 L 7709866061) VOL%O2 ART (test code = 14.3 % 15.0-23.0 L 8818257252) NA (test code = 142 mmol/L 135-145 4665734162) K+ (test code = 5.2 mmol/L 3.5-5.0 H 6467927464) AC CA IONZ (test code = 4.80 mg/dL 4.50-5.30 0709147451) GLUCOSE (test code = 109 mg/dL 70-110 3732354776) LACTIC ACID (test code 1.56 mmol/L 0.50-2.20 = 9525399364) Lab Interpretation Abnormal (test code = 34655-0) [facility] + Lactic [id number] 02:12:43 Test Item Value Reference Range Interpretation Comments PH (test code = 2) 7.35-7.45 PCO2 (test code = See_Comment [Automate d 2610436112) message] The sy stem which generated this result transmitted reference range : 35 - 45 mmHg. The reference range was not used to interpret this result as normal/abnormal . PO2 (test code = See_Comment L [Automated 0909473261) message] The sy stem which generated this result transmitted reference range : 80 - 100 mmHg. The reference range was not used to interpret this result as normal/abnormal . HCO3 (test code = See_Comment [Automate d 7913137501) message] The sy stem which generated this result transmitted reference range : 22 - 26 mEq/L. The reference range was not used to interpret this result as normal/abnormal . BE (test code = See_Comment [Automated 4238053664) message] The sy stem which generated this result transmitted reference range : -3.0 - 3.0 mEq/ L. The reference r henry was not used to interpret this result as normal/abnormal . THB (test code = 10.8 g/dL 12.0-16.0 L 0969277299) %O2HB (test code = 93.4 % 94.0-99.0 L 4115479518) %COHB ART (test code = 0.4 % 0.0-1.5 3376939858) %METHB ART (test code = 0.3 % 0.4-1.5 L 1572499630) VOL%O2 ART (test code = 14.3 % 15.0-23.0 L 5518708036) NA (test code = 142 mmol/L 135-145 4176352101) K+ (test code = 5.2 mmol/L 3.5-5.0 H 3561930983) AC CA IONZ (test code = 4.80 mg/dL 4.50-5.30 6703984112) GLUCOSE (test code = 109 mg/dL 70-110 5707603507) LACTIC ACID (test code 1.56 mmol/L 0.50-2.20 = 2173726741) Lab Interpretation Abnormal (test code = 24854-5) [facility]ETHANOL2022-[facility] 01:19:51 ALCOHOL<10mg/dL10/19/2022 7:19 PM CSTUTMB LABORATORY SERVICESToxic Greater than or equal to 80 mg/dL. NOTE: Whole blood values are approximately 10% to 15% lower than serum and plasma.[facility] HospitalETHANOL2022-11-26 01:19:51ALCOHOL<10mg/dL10/19/2022 7:19 PM [facility] LABORATORY SERVICESToxic Greater than or equal to 80 mg/dL. NOTE: Whole blood values are approximately 10% to 15% lower than serum and plasma.[facility] HospitalBETA [id number] 01:06:31 Test Item Value Reference Range Interpretation Comments BOH (test code = 0.5 mmol/L 5396186476) ALAINA (test code = Normal Ranges: ? ? ALAINA) Nonfasting ? Less than 0.1 mmol/L ? ? Overnight Fast ? ? ? Less than 0.4 mmol/L ? ? Fasting (1-2 weeks) ?6-8 mmol/L Test developed and characteristics determined by [facility]. [facility] HospitalBETA [id number] 01:06:31 Test Item Value Reference Range Interpretation Comments BOH (test code = 0.5 mmol/L 4876493196) ALAINA (test code = Normal Ranges: ? ? ALAINA) Nonfasting ? Less than 0.1 mmol/L ? ? Overnight Fast ? ? ? Less than 0.4 mmol/L ? ? Fasting (1-2 weeks) ?6-8 mmol/L Test developed and characteristics determined by [facility]. [facility] HospitalIRON [id number] 00:41:12 Test Item Value Reference Range Interpretation Comments IRON (test code = 4558170830) 50 ug/dL 50-160 TIBC (test code = 2445821756) 140 ug/dL 250-410 L % FE SAT (test code = 5832035867) 36 % 20-50 Lab Interpretation (test code = Abnormal 84387-6) [facility] HospitalIRON [id number] 00:41:12 Test Item Value Reference Range Interpretation Comments IRON (test code = 6415517112) 50 ug/dL 50-160 TIBC (test code = 6772422785) 140 ug/dL 250-410 L % FE SAT (test code = 0656699600) 36 % 20-50 Lab Interpretation (test code = Abnormal 78970-5) [facility] HospitalPhosphorus [id number] 00:31:30 Test Item Value Reference Range Interpretation Comments PHOSPHORUS (test code = 11.8 mg/dL 2.5-5.0 H 1069108782) Lab Interpretation (test code = Abnormal 25800-8) [facility] HospitalGLYCOSYLATED HEMOGLOBIN (A1C)2022-10-20 00:26:49 Test Item Value Reference Range Interpretation Comments HGB A1C (test code = 7.0 % 4.0-5.7 H 4548-4) ALAINA (test code = ALAINA) Reference RangesNormal: <5.7%Prediabetes: 5.7 - 6.4%Diabetes: > 6.5% Lab Interpretation (test Abnormal code = 42153-8) [facility] HospitalGLYCOSYLATED HEMOGLOBIN (A1C)2022-10-20 00:26:49 Test Item Value Reference Range Interpretation Comments HGB A1C (test code = 7.0 % 4.0-5.7 H 4548-4) ALAINA (test code = ALAINA) Reference RangesNormal: <5.7%Prediabetes: 5.7 - 6.4%Diabetes: > 6.5% Lab Interpretation (test Abnormal code = 20841-1) [facility] HospitalProthrombin Time / [id number] 00:20:08 Test Item Value Reference Range Interpretation Comments PROTIME PATIENT (test See_Comment H [Auto mated message] code = 5964-2) The system [employer] generated this result transmitted ref erence range: 10.1 - 1 2.6 Seconds. The reference range was not used to int erpret this result as normal/abnormal . INR (test code = 6301-6) Nor mal INR <1.1; Warfarin Therap eutic range 2.0 to 3. 0 or 2.5 to 3.5, dep ending upon the indica tions. Lab Interpretation (test Abnormal code = 49749-7) [facility] HospitalaPTT2022-11-26 00:20:08 Test Item Value Reference Range Interpretation Comments APTT Patient (test code = See_Comment [ Automated message] 3173-2) The system [employer] generated this result transmitted ref erence range: 26 - 36 Seconds. The re ference range was not u sed to interpret this result as normal/abnor mal. Lab Interpretation (test Normal code = 71698-3) [facility] HospitalProthrombin Time / [id number] 00:20:08 Test Item Value Reference Range Interpretation Comments PROTIME PATIENT (test See_Comment H [Auto mated message] code = 5964-2) The system [employer] generated this result transmitted ref erence range: 10.1 - 1 2.6 Seconds. The reference range was not used to int erpret this result as normal/abnormal . INR (test code = 6301-6) Nor mal INR <1.1; Warfarin Therap eutic range 2.0 to 3. 0 or 2.5 to 3.5, dep ending upon the indica tions. Lab Interpretation (test Abnormal code = 75472-8) [facility] HospitalaPTT2022-11-26 00:20:08 Test Item Value Reference Range Interpretation Comments APTT Patient (test code = See_Comment [ Automated message] 3173-2) The system [employer] generated this result transmitted ref erence range: 26 - 36 Seconds. The re ference range was not u sed to interpret this result as normal/abnor mal. Lab Interpretation (test Normal code = 15537-5) [facility] HospitalCOM. METABOLIC PANEL (42466)2022-10-20 00:07:39 Test Item Value Reference Range Interpretation Comments NA (test code = 147 mmol/L 135-145 H 7651390002) K (test code = 7.4 mmol/L 3.5-5.0 HH 4763771425) CL (test code = 97 mmol/L 98-108 L 9553468452) CO2 TOTAL (test code = 17 mmol/L 23-31 L 2987613998) AGAP (test code = 2-16 H 1740041992) BUN (test code = 94 mg/dL 7-23 H 9035567363) GLUCOSE (test code = 155 mg/dL 70-110 H 9935875885) CREATININE (test code = 11.77 mg/dL 0.50-1.04 H 9062571491) TOTAL BILI (test code = 0.5 mg/dL 0.1-1.4 5495734011) CALCIUM (test code = 9.1 mg/dL 8.6-10.6 2486703949) T PROTEIN (test code = 7.7 g/dL 6.3-8.2 8090192939) ALBUMIN (test code = 3.8 g/dL 3.5-5.0 8576168924) ALK PHOS (test code = 219 U/L 34-122 H 2145650971) ALTv (test code = 22 U/L 5-35 1742-6) AST(SGOT) (test code = 26 U/L 13-40 4288288034) eGFR (test code = mL/min/1.73m2 8737840632) ALAINA (test code = ALAINA) Association of [...] tests). Lab Interpretation Abnormal (test code = 64649-5) [facility]. METABOLIC PANEL (14848)2022-10-20 00:07:39 Test Item Value Reference Range Interpretation Comments NA (test code = 147 mmol/L 135-145 H 6725437471) K (test code = 7.4 mmol/L 3.5-5.0 HH 4905553324) CL (test code = 97 mmol/L 98-108 L 3391361555) CO2 TOTAL (test code = 17 mmol/L 23-31 L 5019762911) AGAP (test code = 2-16 H 6741421062) BUN (test code = 94 mg/dL 7-23 H 0346681547) GLUCOSE (test code = 155 mg/dL 70-110 H 6171966865) CREATININE (test code = 11.77 mg/dL 0.50-1.04 H 5356444029) TOTAL BILI (test code = 0.5 mg/dL 0.1-1.4 4567692095) CALCIUM (test code = 9.1 mg/dL 8.6-10.6 0579012970) T PROTEIN (test code = 7.7 g/dL 6.3-8.2 2431673189) ALBUMIN (test code = 3.8 g/dL 3.5-5.0 7718565586) ALK PHOS (test code = 219 U/L 34-122 H 8737569363) ALTv (test code = 22 U/L 5-35 1742-6) AST(SGOT) (test code = 26 U/L 13-40 2378238054) eGFR (test code = mL/min/1.73m2 5248607339) ALAINA (test code = ALAINA) Association of [...] tests). Lab Interpretation Abnormal (test code = 43815-9) [facility] HospitalMAGNESIUM2022-11-25 23:58:49 Test Item Value Reference Range Interpretation Comments MAGNESIUM (test code = 9194392943) 2.4 mg/dL 1.7-2.4 Lab Interpretation (test code = Normal 99535-9) [facility] HospitalCB WITH [id number] 23:51:07 Test Item Value Reference Range Interpretation Comments WBC (test code = See_Comment H [Automated 6690-2) message] The system which generated this result transmit vikki reference range : 4.30 - 11.10 10*3/?L. The reference range was not used to interpret this result as normal/abnormal . RBC (test code = See_Comment L [Automated 789-8) message] The system which generated this result transmit vikki reference range : 3.93 - 5.25 10*6/?L. The reference range was not used to interpret this result as normal/abnormal . HGB (test code = 9.3 g/dL 11.6-15.0 L 718-7) HCT (test code = 27.9 % 35.7-45.2 L 4544-3) MCV (test code = 86.6 fL 80.6-95.5 787-2) MCH (test code = 28.9 pg 25.9-32.8 785-6) MCHC (test code = 33.3 g/dL 31.6-35.1 786-4) RDW-SD (test code = 48.4 fL 39.0-49.9 93208-2) RDW-CV (test code = 15.5 % 12.0-15.5 788-0) PLT (test code = See_Comment H [Automated 777-3) message] The system which generated this result transmit vikki reference range : 166 - 358 10*3/ ?L. The reference range was not u sed to interpret th is result as normal/abnormal . MPV (test code = 9.4 fL 9.5-12.9 L 97541-3) NRBC/100 WBC (test See_Comment [Automat ed code = 0719887355) message] The system which generated this result transmit vikki reference range : 0.0 - 10.0 /100 WBCs. The reference range was not used to interpret this result as normal/abnormal . NRBC x10^3 (test code See_Comment [Auto mated = 8749385999) message] The system which generated this result transmit vikki reference range : 10*3/?L. The reference range was not used to interpret this result as normal/abnormal . GRAN MAT (NEUT) % 83.0 % (test code = 770-8) IMM GRAN % (test code 0.40 % = 7740218139) LYMPH % (test code = 8.3 % 736-9) MONO % (test code = 8.1 % 5905-5) EOS % (test code = 0.0 % 713-8) BASO % (test code = 0.2 % 706-2) GRAN MAT x10^3(ANC) 11.24 10*3/uL 1.88-7.09 H (test code = 7764297638) IMM GRAN x10^3 (test 0.05 10*3/uL 0.00-0.06 code = 9495938583) LYMPH x10^3 (test code 1.12 10*3/uL 1.32-3.29 L = 731-0) MONO x10^3 (test code 1.09 10*3/uL 0.33-0.92 H = 742-7) EOS x10^3 (test code = 0.03-0.39 L 711-2) BASO x10^3 (test code 0.03 10*3/uL 0.01-0.07 = 704-7) Lab Interpretation Abnormal (test code = 24925-7) [facility] GLUCOSE (AUTOMATED)2022-04-10 21:15:48 Test Item Value Reference Range Interpretation Comments POCT GLU (test code = 5221325720) 164 mg/dL 70-110 H Lab Interpretation (test code = Abnormal 11529-6) [facility] GLUCOSE (AUTOMATED)2022-04-10 16:44:44 Test Item Value Reference Range Interpretation Comments POCT GLU (test code = 8818490145) 169 mg/dL 70-110 H Lab Interpretation (test code = Abnormal 27358-0) [facility])2022-04-10 13:22:32 Test Item Value Reference Range Interpretation Comments POCT GLU (test code = 5756261687) 140 mg/dL 70-110 H Lab Interpretation (test code = Abnormal 41259-9) [facility]TROP[facility] [id number] 11:45:33 Test Item Value Reference Interpretation Comments Range TROPONIN I (test 0.154 ng/mL See_Comment H [Automated code = 1656672359) message] The system which generated this result [...] biotin. Lab Interpretation Abnormal (test code = 53695-9) [facility] METABOLIC PANEL (NA, K, CL, CO2, GLUCOSE, BUN, CREATININE, CA)2022-04-10 11:35:14 Test Item Value Reference Range Interpretation Comments NA (test code = 136 mmol/L 135-145 5813687732) K (test code = 4.8 mmol/L 3.5-5.0 9018154831) CL (test code = 102 mmol/L 98-108 3992147638) CO2 TOTAL (test code = 22 mmol/L 23-31 L 9307931955) AGAP (test code = 2-16 5310665822) BUN (test code = 24 mg/dL 7-23 H 4032803855) GLUCOSE (test code = 189 mg/dL 70-110 H [id number]) CREATININE (test code = 4.98 mg/dL 0.50-1.04 H 2393788288) CALCIUM (test code = 9.3 mg/dL 8.6-10.6 5816419356) eGFR (test code = mL/min/1.73m2 4408298258) ALAINA (test code = ALAINA) Association of [...] tests). Lab Interpretation Abnormal (test code = 74288-7) [facility]11 Test Item Value Reference Range Interpretation Comments MAGNESIUM (test code = 2542572794) 2.1 mg/dL 1.7-2.4 Lab Interpretation (test code = Normal 20471-8) [facility] [id number] 10:26:03 Test Item Value Reference Range Interpretation Comments WBC (test code = See_Comment [Automated 8890-2) message] The sy stem which generated this [...] (test code = 56.6 fL 39.0-49.9 H 41663-2) RDW-CV (test code = 20.2 % 12.0-15.5 H 788-0) PLT (test code = See_Comment [Automated 777-3) message] The sy stem which generated this result transmitted reference range : 166 - 358 10*3/ ?L. The reference r henry was not used to interpret this result as normal/abnormal . MPV (test code = 11.2 fL 9.5-12.9 27120-1) NRBC/100 WBC (test See_Comment [Automat ed code = 9964634889) message] The system which generated this result transmitted reference range : 0.0 - 10.0 /100 WBCs. The refer ence range was not u sed to interpret th is result as normal/abnormal . NRBC x10^3 (test code <0.01 See_Comment [Auto mated = 2273533869) message] The s ystem which generated this result transmitted reference range : 10*3/?L. The reference range was not used to interpret this result as normal/abnormal . GRAN MAT (NEUT) % 76.8 % (test code = 770-8) IMM GRAN % (test code 0.40 % = 2143083330) LYMPH % (test code = 14.1 % 736-9) MONO % (test code = 7.6 % 5905-5) EOS % (test code = 0.6 % 713-8) BASO % (test code = 0.5 % 706-2) GRAN MAT x10^3(ANC) 7.18 10*3/uL 1.88-7.09 H (test code = 1924529919) IMM GRAN x10^3 (test 0.04 10*3/uL 0.00-0.06 code = 9332670286) LYMPH x10^3 (test code 1.32 10*3/uL 1.32-3.29 = 731-0) MONO x10^3 (test code 0.71 10*3/uL 0.33-0.92 = 742-7) EOS x10^3 (test code = 0.06 10*3/uL 0.03-0.39 711-2) BASO x10^3 (test code 0.05 10*3/uL 0.01-0.07 = 704-7) Lab Interpretation Abnormal (test code = 85841-0) [facility] GLUCOSE (AUTOMATED)2022-04-10 10:18:37 Test Item Value Reference Range Interpretation Comments POCT GLU (test code = 9154587642) 182 mg/dL 70-110 H Lab Interpretation (test code = Abnormal 60344-1) [facility] GLUCOSE (AUTOMATED)2022-04-10 10:18:37 Test Item Value Reference Range Interpretation Comments POCT GLU (test code = 4691524515) 205 mg/dL 70-110 H Lab Interpretation (test code = Abnormal 22874-8) [facility] GLUCOSE (AUTOMATED)2022-04-10 05:47:57 Test Item Value Reference Range Interpretation Comments POCT GLU (test code = 6400826419) 157 mg/dL 70-110 H Lab Interpretation (test code = Abnormal 80053-3) [facility] GLUCOSE (AUTOMATED)2022-04-09 22:04:42 Test Item Value Reference Range Interpretation Comments POCT GLU (test code = 6444184376) 229 mg/dL 70-110 H Lab Interpretation (test code = Abnormal 22713-1) [facility] [id number] 19:35:28 Test Item Value Reference Interpretation Comments Range TROPONIN I (test 0.287 ng/mL See_Comment H [Automated code = 8024207303) message] The system which generated this result [...] biotin. Lab Interpretation Abnormal (test code = 29175-3) [facility] METABOLIC PANEL (NA, K, CL, CO2, GLUCOSE, BUN, CREATININE, CA)2022-04-09 19:19:43 Test Item Value Reference Range Interpretation Comments NA (test code = 137 mmol/L 135-145 1311109387) K (test code = 3.2 mmol/L 3.5-5.0 L 8101531421) CL (test code = 101 mmol/L 98-108 9464212982) CO2 TOTAL (test code = 26 mmol/L 23-31 8952591616) AGAP (test code = 2-16 9319037909) BUN (test code = 14 mg/dL 7-23 5929930149) GLUCOSE (test code = 113 mg/dL 70-110 H 7551714302) CREATININE (test code = 2.68 mg/dL 0.50-1.04 H 8632143936) CALCIUM (test code = 9.6 mg/dL 8.6-10.6 0545567543) eGFR (test code = mL/min/1.73m2 6633848515) ALAINA (test code = ALAINA) Association of [...] tests). Lab Interpretation Abnormal (test code = 91435-1) [facility]22-[facility]-09 17:08:07 Test Item Value Reference Range Interpretation Comments POCT GLU (test code = 0645302397) 103 mg/dL 70-110 Lab Interpretation (test code = Normal 56088-8) [facility] [id number] 15:19:58 Test Item Value Reference Interpretation Comments Range TROPONIN I (test 0.298 ng/mL See_Comment H [Automated code = 2383176116) message] The system which generated this result [...] biotin. Lab Interpretation Abnormal (test code = 51923-4) [facility] GLUCOSE (AUTOMATED)2022-04-09 13:11:11 Test Item Value Reference Range Interpretation Comments POCT GLU (test code = 5842368534) 219 mg/dL 70-110 H Lab Interpretation (test code = Abnormal 61590-4) [facility]CREAT[facility] [id number] 11:57:31 Test Item Value Reference Range Interpretation Comments CK (test code = 0816135459) 68 U/L 33-194 Lab Interpretation (test code = Normal 48880-1) [facility] GLUCOSE (AUTOMATED)2022-04-09 10:19:18 Test Item Value Reference Range Interpretation Comments POCT GLU (test code = 0138261364) 177 mg/dL 70-110 H Lab Interpretation (test code = Abnormal 12005-7) [facility]PHENYTOIN [id number] 06:47:39 Test Item Value Reference Range Interpretation Comments PHENY FREE (test code <0.5 1.0-2.0 L = 9429187588) ALAINA (test code = ALAINA) Toxic Range: ? Greater than 2.5 ug/mL Test developed and characteristics determined by [facility]. Lab Interpretation Abnormal (test code = 21506-0) [facility]TROP[facility] [id number] 06:43:44 Test Item Value Reference Interpretation Comments Range TROPONIN I (test 0.271 ng/mL See_Comment H [Automated code = 3941831859) message] The system which generated this result [...] biotin. Lab Interpretation Abnormal (test code = 56960-7) [facility] HospitalMagnesium [id number] 06:30:50 Test Item Value Reference Range Interpretation Comments MAGNESIUM (test code = 9053182782) 2.0 mg/dL 1.7-2.4 Lab Interpretation (test code = Normal 69252-5) [facility] HospitalPhosphorus [id number] 06:30:50 Test Item Value Reference Range Interpretation Comments PHOSPHORUS (test code = 6932017476) 6.8 mg/dL 2.5-5.0 H Lab Interpretation (test code = Abnormal 18211-9) [facility] HospitalHepatic Function Panel (ALB, T.PRO, BILI T, BU/BC, ALT, AST, ALK, PHOS)2022-04-09 06:30:50 Test Item Value Reference Range Interpretation Comments TOTAL BILI (test code = 3081185814) 0.6 mg/dL 0.1-1.1 BILI UNCON (test code = 9619426126) 0.1 mg/dL 0.1-1.1 BILI CONJ (test code = 1676639759) 0.0 mg/dL 0.0-0.3 T PROTEIN (test code = 3108962804) 6.5 g/dL 6.3-8.2 ALBUMIN (test code = 7574059545) 3.5 g/dL 3.5-5.0 ALK PHOS (test code = 8460786514) 211 U/L 34-122 H ALTv (test code = 1742-6) 39 U/L 5-35 H AST(SGOT) (test code = 7932946023) 33 U/L 13-40 Lab Interpretation (test code = Abnormal 08283-3) [facility] (NA, K, CL, CO2, Glucose, BUN, Creatinine, CA)2022-04-09 06:30:49 Test Item Value Reference Range Interpretation Comments NA (test code = 136 mmol/L 135-145 5077256432) K (test code = 4.5 mmol/L 3.5-5.0 5009836841) CL (test code = 96 mmol/L 98-108 L 8286154993) CO2 TOTAL (test code = 27 mmol/L 23-31 2660020153) AGAP (test code = 2-16 7862026044) BUN (test code = 37 mg/dL 7-23 H 8793524586) GLUCOSE (test code = 114 mg/dL 70-110 H 7140506227) CREATININE (test code = 6.55 mg/dL 0.50-1.04 H 2687087630) CALCIUM (test code = 9.2 mg/dL 8.6-10.6 6690332939) eGFR (test code = mL/min/1.73m2 3240503439) ALAINA (test code = ALAINA) Association of [...] tests). Lab Interpretation Abnormal (test code = 71262-2) [facility] HospitalProthrombin Time / [id number] 05:44:26 Test Item Value Reference Range Interpretation [...] tions. Lab Interpretation (test Normal code = 76333-5) [facility] with Zopjuxyxuvdn4268-03-57 05:43:06 Test Item Value Reference Range Interpretation [...] (test code = 55.8 fL 39.0-49.9 H 23515-8) RDW-CV (test code = 19.9 % 12.0-15.5 H 788-0) PLT (test code = See_Comment [Automated 777-3) message] The sy stem which generated this result transmitted reference range : 166 - 358 10*3/ ?L. The reference r henry was not used to interpret this result as normal/abnormal . MPV (test code = 10.4 fL 9.5-12.9 41754-1) NRBC/100 WBC (test See_Comment [Automat ed code = 2627524223) message] The system which generated this result transmitted reference range : 0.0 - 10.0 /100 WBCs. The refer ence range was not u sed to interpret th is result as normal/abnormal . NRBC x10^3 (test code <0.01 See_Comment [Auto mated = 9389124067) message] The s ystem which generated this result transmitted reference range : 10*3/?L. The reference range was not used to interpret this result as normal/abnormal . GRAN MAT (NEUT) % 77.5 % (test code = 770-8) IMM GRAN % (test code 0.40 % = 9813419323) LYMPH % (test code = 14.1 % 736-9) MONO % (test code = 7.3 % 5905-5) EOS % (test code = 0.4 % 713-8) BASO % (test code = 0.3 % 706-2) GRAN MAT x10^3(ANC) 8.21 10*3/uL 1.88-7.09 H (test code = 2153391863) IMM GRAN x10^3 (test 0.04 10*3/uL 0.00-0.06 code = 6867477162) LYMPH x10^3 (test code 1.49 10*3/uL 1.32-3.29 = 731-0) MONO x10^3 (test code 0.77 10*3/uL 0.33-0.92 = 742-7) EOS x10^3 (test code = 0.04 10*3/uL 0.03-0.39 711-2) BASO x10^3 (test code 0.03 10*3/uL 0.01-0.07 = 704-7) Lab Interpretation Abnormal (test code = 25157-5) [facility]2022-04-09 05:33:54 Test Item Value Reference Range Interpretation Comments POCT GLU (test code = 9771409461) 130 mg/dL 70-110 H Lab Interpretation (test code = Abnormal 31375-6) [facility]2019-[facility]-02 09:14:00 Test Item Value Reference Range Interpretation Comments Hct (test code = Hct) 44.8 36.0-48.0 [facility]CclvxsqFKSGIRAFWP8028-38-41 09:14:00 Test Item Value Reference Range Interpretation Comments MCV (test code = MCV) 79.2 80.0-98.0 [facility] HospitalJbqbpoyQVOYLRWUVF5167-86-15 09:14:00 Test Item Value Reference Range Interpretation Comments MCH (test code = MCH) 25.0 pg 27.0-31.0 [facility] HospitalPvifzzrDTWMNRCKGX9048-10-28 09:14:00 Test Item Value Reference Range Interpretation Comments MCHC (test code = MCHC) 31.6 32.0-36.0 [facility] HospitalHsjxsprJHNTWZLWZN5242-66-21 09:14:00 Test Item Value Reference Range Interpretation Comments RDW (test code = RDW) 17.9 11.5-14.5 [facility] HospitalCgqjpnsXQKWEDNBVV1495-53-68 09:14:00 Test Item Value Reference Range Interpretation Comments Platelet (test code = Platelet) 273 133-450 [facility] HospitalZnceqypYOMIUNTDXL9933-90-82 09:14:00 Test Item Value Reference Range Interpretation Comments MPV (test code = MPV) 8.3 7.4-10.4 [facility]2019-12-02 09:14:00 Test Item Value Reference Range Interpretation Comments Glucose Lvl (test code = Glucose Lvl) 182 70-99 [facility]2019-12-02 09:14:00 Test Item Value Reference Range Interpretation Comments BUN (test code = BUN) 61 7-22 [facility]2019-12-02 09:14:00 Test Item Value Reference Range Interpretation Comments Creatinine Lvl (test code = Creatinine 7.76 0.50-1.40 Lvl) [facility]2019-12-02 09:14:00 Test Item Value Reference Range Interpretation Comments Sodium Lvl (test code = Sodium Lvl) 137 135-145 [facility]2019-12-02 09:14:00 Test Item Value Reference Range Interpretation Comments Potassium Lvl (test code = Potassium 4.7 3.5-5.1 Lvl) [facility]2019-12-02 09:14:00 Test Item Value Reference Range Interpretation Comments Chloride Lvl (test code = Chloride Lvl) 102 95-109 [facility]2019-12-02 09:14:00 Test Item Value Reference Range Interpretation Comments CO2 (test code = CO2) 20 24-32 [facility]2019-12-02 09:14:00 Test Item Value Reference Range Interpretation Comments AGAP (test code = AGAP) 19.7 10.0-20.0 [facility]2019-12-02 09:14:00 Test Item Value Reference Range Interpretation Comments Calcium Lvl (test code = Calcium Lvl) 8.6 8.5-10.5 [facility]2019-12-02 09:14:00 Test Item Value Reference Range Interpretation Comments Albumin Lvl (test code = Albumin Lvl) 2.6 3.5-5.0 [facility]2019-12-02 09:14:00 Test Item Value Reference Range Interpretation Comments Phosphorus (test code = Phosphorus) 8.1 2.5-4.5 [facility]2019-12-02 09:14:00 Test Item Value Reference Range Interpretation Comments eGFR (test code = eGFR) 5 [facility] HospitalEbwcvpqWNRRIMMBCW9663-76-59 09:14:00 Test Item Value Reference Range Interpretation Comments Segs (test code = Segs) 60.8 45.0-75.0 [facility] HospitalCsqmrpwBRAKDWVXIT1460-67-14 09:14:00 Test Item Value Reference Range Interpretation Comments Lymphocytes (test code = Lymphocytes) 24.6 20.0-40.0 [facility] HospitalFnatviyWDEDAOCXTE7249-04-55 09:14:00 Test Item Value Reference Range Interpretation Comments Monocytes (test code = Monocytes) 8.0 2.0-12.0 [facility] HospitalCwdglwxXERBOADLXG0462-76-12 09:14:00 Test Item Value Reference Range Interpretation Comments Eosinophils (test code = 5.3 See_Comment [A utomated message] The Eosinophils) system which ge nerated this result tra nsmitted reference range : <=4.0. The reference r henry was not used to int erpret this result as normal/abnormal . [facility] HospitalQvmhjwnNWEURCAOGB5003-89-48 09:14:00 Test Item Value Reference Range Interpretation Comments Basophils (test code = 1.3 See_Comment [Aut omated message] The Basophils) system which ge nerated this result tra nsmitted reference range : <=1.0. The reference r henry was not used to int erpret this result as normal/abnormal . [facility] HospitalZksbxhhPMZBCIYACY7266-26-01 09:14:00 Test Item Value Reference Range Interpretation Comments Neutrophils # (test code = Neutrophils 4.7 1.5-8.1 #) [facility] HospitalVdftajyMYHPUNTHYJ9500-11-26 09:14:00 Test Item Value Reference Range Interpretation Comments Lymphocytes # (test code = Lymphocytes 1.9 1.0-5.5 #) [facility] HospitalDvjmsfmZEHBNXOPJY9498-07-89 09:14:00 Test Item Value Reference Range Interpretation Comments Monocytes # (test code 0.6 See_Comment [Aut omated message] The = Monocytes #) system which generated this result tra nsmitted reference range : <=0.8. The reference r henry was not used to int erpret this result as normal/abnormal . [facility] HospitalNteiztpQOPQPCKIKJ9183-29-24 09:14:00 Test Item Value Reference Range Interpretation Comments Eosinophils # (test code 0.4 See_Comment [A utomated message] The = Eosinophils #) system whic h generated this result tra nsmitted reference range : <=0.5. The reference r henry was not used to int erpret this result as normal/abnormal . [facility] HospitalQyfebduHDCJJNLDNB0917-30-55 09:14:00 Test Item Value Reference Range Interpretation Comments Basophils # (test code 0.1 See_Comment [Aut omated message] The = Basophils #) system which generated this result tra nsmitted reference range : <=0.2. The reference r henry was not used to int erpret this result as normal/abnormal . [facility] HospitalQdkjrlgHUWXXRGKCH5058-34-33 09:14:00 Test Item Value Reference Range Interpretation Comments WBC (test code = WBC) 7.8 3.7-10.4 [facility] HospitalYwdcfyeRTWWTRSELA9829-76-73 09:14:00 Test Item Value Reference Range Interpretation Comments RBC (test code = RBC) 5.66 4.20-5.40 [facility] HospitalSyaqvzgLGEIWZVQWB8169-02-04 09:14:00 Test Item Value Reference Range Interpretation Comments Hgb (test code = Hgb) 14.2 12.0-16.0 [facility] HospitalRcvoadzGNUWSKHCMQ1222-28-55 09:14:00 Test Item Value Reference Range Interpretation Comments Hct (test code = Hct) 44.8 36.0-48.0 [facility] HospitalYpsrlfaPBOGRCFTVD1957-41-00 09:14:00 Test Item Value Reference Range Interpretation Comments MCV (test code = MCV) 79.2 80.0-98.0 [facility] HospitalBuzuxvkTWVHVBYBTK8048-00-14 09:14:00 Test Item Value Reference Range Interpretation Comments MCH (test code = MCH) 25.0 pg 27.0-31.0 [facility] HospitalElhhnlaYXUOLWUCLW0639-33-36 09:14:00 Test Item Value Reference Range Interpretation Comments MCHC (test code = MCHC) 31.6 32.0-36.0 [facility] HospitalCycutypNJZDNCEPKF6968-54-95 09:14:00 Test Item Value Reference Range Interpretation Comments RDW (test code = RDW) 17.9 11.5-14.5 [facility] HospitalVukcqixCATZJVJGBL0854-35-17 09:14:00 Test Item Value Reference Range Interpretation Comments Platelet (test code = Platelet) 273 133-450 [facility] HospitalBsrwaimFKYAQKGXPX4786-08-94 09:14:00 Test Item Value Reference Range Interpretation Comments MPV (test code = MPV) 8.3 7.4-10.4 [facility]2019-12-02 09:14:00 Test Item Value Reference Range Interpretation Comments Glucose Lvl (test code = Glucose Lvl) 182 70-99 [facility]2019-12-02 09:14:00 Test Item Value Reference Range Interpretation Comments BUN (test code = BUN) 61 7-22 [facility]2019-12-02 09:14:00 Test Item Value Reference Range Interpretation Comments Creatinine Lvl (test code = Creatinine 7.76 0.50-1.40 Lvl) [facility]2019-12-02 09:14:00 Test Item Value Reference Range Interpretation Comments Sodium Lvl (test code = Sodium Lvl) 137 135-145 [facility]2019-12-02 09:14:00 Test Item Value Reference Range Interpretation Comments Potassium Lvl (test code = Potassium 4.7 3.5-5.1 Lvl) [facility]2019-12-02 09:14:00 Test Item Value Reference Range Interpretation Comments Chloride Lvl (test code = Chloride Lvl) 102 95-109 [facility]2019-12-02 09:14:00 Test Item Value Reference Range Interpretation Comments CO2 (test code = CO2) 20 24-32 [facility]2019-12-02 09:14:00 Test Item Value Reference Range Interpretation Comments AGAP (test code = AGAP) 19.7 10.0-20.0 [facility]2019-12-02 09:14:00 Test Item Value Reference Range Interpretation Comments Calcium Lvl (test code = Calcium Lvl) 8.6 8.5-10.5 [facility]2019-12-02 09:14:00 Test Item Value Reference Range Interpretation Comments Albumin Lvl (test code = Albumin Lvl) 2.6 3.5-5.0 [facility]2019-12-02 09:14:00 Test Item Value Reference Range Interpretation Comments Phosphorus (test code = Phosphorus) 8.1 2.5-4.5 [facility]2019-12-02 09:14:00 Test Item Value Reference Range Interpretation Comments eGFR (test code = eGFR) 5 [facility] HospitalYtcswogLHERVRKTOS4000-12-00 09:14:00 Test Item Value Reference Range Interpretation Comments Segs (test code = Segs) 60.8 45.0-75.0 [facility] HospitalLmdqxarEXUNEYODVB3951-34-66 09:14:00 Test Item Value Reference Range Interpretation Comments Lymphocytes (test code = Lymphocytes) 24.6 20.0-40.0 [facility] HospitalMynhdefUZMEMWPLVF4524-87-93 09:14:00 Test Item Value Reference Range Interpretation Comments Monocytes (test code = Monocytes) 8.0 2.0-12.0 [facility] HospitalTshcqblJQAPEYKBAX6217-53-22 09:14:00 Test Item Value Reference Range Interpretation Comments Eosinophils (test code = 5.3 See_Comment [A utomated message] The Eosinophils) system which ge nerated this result tra nsmitted reference range : <=4.0. The reference r henry was not used to int erpret this result as normal/abnormal . [facility] HospitalPonlpwiUATCUINSAH9908-99-61 09:14:00 Test Item Value Reference Range Interpretation Comments Basophils (test code = 1.3 See_Comment [Aut omated message] The Basophils) system which ge nerated this result tra nsmitted reference range : <=1.0. The reference r henry was not used to int erpret this result as normal/abnormal . [facility] HospitalYvbwsfiCLRFVAWHOM3567-76-97 09:14:00 Test Item Value Reference Range Interpretation Comments Neutrophils # (test code = Neutrophils 4.7 1.5-8.1 #) [facility] HospitalHshntvfHDRKCDAEVY4750-66-39 09:14:00 Test Item Value Reference Range Interpretation Comments Lymphocytes # (test code = Lymphocytes 1.9 1.0-5.5 #) [facility] HospitalZrjagnuEVIMLIAONM4609-06-59 09:14:00 Test Item Value Reference Range Interpretation Comments Monocytes # (test code 0.6 See_Comment [Aut omated message] The = Monocytes #) system which generated this result tra nsmitted reference range : <=0.8. The reference r henry was not used to int erpret this result as normal/abnormal . [facility] HospitalKdofwvdPSPCWCIRSC3552-38-45 09:14:00 Test Item Value Reference Range Interpretation Comments Eosinophils # (test code 0.4 See_Comment [A utomated message] The = Eosinophils #) system whic h generated this result tra nsmitted reference range : <=0.5. The reference r henry was not used to int erpret this result as normal/abnormal . [facility] HospitalRdlggtkQCFVDDZMLH7484-68-02 09:14:00 Test Item Value Reference Range Interpretation Comments Basophils # (test code 0.1 See_Comment [Aut omated message] The = Basophils #) system which generated this result tra nsmitted reference range : <=0.2. The reference r henry was not used to int erpret this result as normal/abnormal . [facility] HospitalPznaygrFSQCLTMJIC2331-95-72 09:14:00 Test Item Value Reference Range Interpretation Comments WBC (test code = WBC) 7.8 3.7-10.4 [facility] HospitalYgudmsfTVVEEWTFJZ8777-65-24 09:14:00 Test Item Value Reference Range Interpretation Comments RBC (test code = RBC) 5.66 4.20-5.40 [facility] HospitalKyhxrjdKFOPXZUFYM4732-81-27 09:14:00 Test Item Value Reference Range Interpretation Comments Hgb (test code = Hgb) 14.2 12.0-16.0 [facility] HospitalRkoxcqeQKQJLRVQUT8432-85-50 09:14:00 Test Item Value Reference Range Interpretation Comments Hct (test code = Hct) 44.8 36.0-48.0 [place]239-12-02 09:14:00 Test Item Value Reference Range Interpretation Comments MCV (test code = MCV) 79.2 80.0-98.0 [place] 455239-12-02 09:14:00 Test Item Value Reference Range Interpretation Comments MCH (test code = MCH) 25.0 pg 27.0-31.0 [facility] HospitalZtttdzhNCYCTSNOYF0829-06-11 09:14:00 Test Item Value Reference Range Interpretation Comments MCHC (test code = MCHC) 31.6 32.0-36.0 [facility] HospitalBriexpvYCCSDQAJFD3745-31-63 09:14:00 Test Item Value Reference Range Interpretation Comments RDW (test code = RDW) 17.9 11.5-14.5 [place] 455239-12-02 09:14:00 Test Item Value Reference Range Interpretation Comments Platelet (test code = Platelet) 273 133-450 [facility] HospitalXtgqidcARXXRYRFHP8731-28-07 09:14:00 Test Item Value Reference Range Interpretation Comments MPV (test code = MPV) 8.3 7.4-10.4 [facility]2019-12-02 09:14:00 Test Item Value Reference Range Interpretation Comments Glucose Lvl (test code = Glucose Lvl) 182 70-99 [facility]2019-12-02 09:14:00 Test Item Value Reference Range Interpretation Comments BUN (test code = BUN) 61 7-22 [facility]2019-12-02 09:14:00 Test Item Value Reference Range Interpretation Comments Creatinine Lvl (test code = Creatinine 7.76 0.50-1.40 Lvl) [facility]2019-12-02 09:14:00 Test Item Value Reference Range Interpretation Comments Sodium Lvl (test code = Sodium Lvl) 137 135-145 [facility]2019-12-02 09:14:00 Test Item Value Reference Range Interpretation Comments Potassium Lvl (test code = Potassium 4.7 3.5-5.1 Lvl) [facility] [facility]2019-12-02 09:14:00 Test Item Value Reference Range Interpretation Comments Chloride Lvl (test code = Chloride Lvl) 102 95-109 [place] 729219-12-02 09:14:00 Test Item Value Reference Range Interpretation Comments CO2 (test code = CO2) 20 24-32 [facility]2019-12-02 09:14:00 Test Item Value Reference Range Interpretation Comments AGAP (test code = AGAP) 19.7 10.0-20.0 [facility]2019-12-02 09:14:00 Test Item Value Reference Range Interpretation Comments Calcium Lvl (test code = Calcium Lvl) 8.6 8.5-10.5 [facility]2019-12-02 09:14:00 Test Item Value Reference Range Interpretation Comments Albumin Lvl (test code = Albumin Lvl) 2.6 3.5-5.0 [facility]2019-12-02 09:14:00 Test Item Value Reference Range Interpretation Comments Phosphorus (test code = Phosphorus) 8.1 2.5-4.5 [facility]2019-12-02 09:14:00 Test Item Value Reference Range Interpretation Comments eGFR (test code = eGFR) 5 [facility]ybhgoiDBXHPZGCQU5474-76-74 09:14:00 Test Item Value Reference Range Interpretation Comments Segs (test code = Segs) 60.8 45.0-75.0 [facility]EzjfgzbCNSMMMEVZM6063-71-16 09:14:00 Test Item Value Reference Range Interpretation Comments Lymphocytes (test code = Lymphocytes) 24.6 20.0-40.0 [facility]QfcnqyvEIZBIVKMCP0476-90-92 09:14:00 Test Item Value Reference Range Interpretation Comments Monocytes (test code = Monocytes) 8.0 2.0-12.0 [facility] HospitalCjfhqotTJEENEAMYM0897-23-71 09:14:00 Test Item Value Reference Range Interpretation Comments Eosinophils (test code = 5.3 See_Comment [A utomated message] The Eosinophils) system which ge nerated this result tra nsmitted reference range : <=4.0. The reference r henry was not used to int erpret this result as normal/abnormal . [facility] HospitalXojdrpsUAGMTHEXJI5150-97-47 09:14:00 Test Item Value Reference Range Interpretation Comments Basophils (test code = 1.3 See_Comment [Aut omated message] The Basophils) system which ge nerated this result tra nsmitted reference range : <=1.0. The reference r henry was not used to int erpret this result as normal/abnormal . [facility] HospitalEzwsbbeXZYARXMGLT5295-26-46 09:14:00 Test Item Value Reference Range Interpretation Comments Neutrophils # (test code = Neutrophils 4.7 1.5-8.1 #) [facility] HospitalBvqxrkoGZXVTPVZLH8430-95-50 09:14:00 Test Item Value Reference Range Interpretation Comments Lymphocytes # (test code = Lymphocytes 1.9 1.0-5.5 #) [facility] HospitalAvgorueQLCTEDSMAX9598-46-83 09:14:00 Test Item Value Reference Range Interpretation Comments Monocytes # (test code 0.6 See_Comment [Aut omated message] The = Monocytes #) system which generated this result tra nsmitted reference range : <=0.8. The reference r henry was not used to int erpret this result as normal/abnormal . [facility] HospitalFehwbaaYZRAASKDBA5301-54-96 09:14:00 Test Item Value Reference Range Interpretation Comments Eosinophils # (test code 0.4 See_Comment [A utomated message] The = Eosinophils #) system whic h generated this result tra nsmitted reference range : <=0.5. The reference r henry was not used to int erpret this result as normal/abnormal . [facility] HospitalKjsjramZRUCQFNKSX5308-48-36 09:14:00 Test Item Value Reference Range Interpretation Comments Basophils # (test code 0.1 See_Comment [Aut omated message] The = Basophils #) system which generated this result tra nsmitted reference range : <=0.2. The reference r henry was not used to int erpret this result as normal/abnormal . [facility] HospitalIulgvdjMXKKJWPVIL2847-02-95 09:14:00 Test Item Value Reference Range Interpretation Comments WBC (test code = WBC) 7.8 3.7-10.4 [facility] HospitalYlmjkpgEIVOXVXGIV2960-20-02 09:14:00 Test Item Value Reference Range Interpretation Comments RBC (test code = RBC) 5.66 4.20-5.40 [facility] HospitalWlqtdleXPPAQAZCTP4752-58-36 09:14:00 Test Item Value Reference Range Interpretation Comments Hgb (test code = Hgb) 14.2 12.0-16.0 [facility] HospitalWhllbxxVQCGTSKPON0079-86-36 09:14:00 Test Item Value Reference Range Interpretation Comments Hct (test code = Hct) 44.8 36.0-48.0 [facility] HospitalLuehibtSBTNHIRNDA3936-72-00 09:14:00 Test Item Value Reference Range Interpretation Comments MCV (test code = MCV) 79.2 80.0-98.0 [facility] HospitalCidijdzMDTZNYPIOM8126-67-44 09:14:00 Test Item Value Reference Range Interpretation Comments MCH (test code = MCH) 25.0 pg 27.0-31.0 [facility] HospitalHrrgryiYMRUDEUKHY3997-97-37 09:14:00 Test Item Value Reference Range Interpretation Comments MCHC (test code = MCHC) 31.6 32.0-36.0 [facility] HospitalHlmdexmODFDWYLHAA2946-72-57 09:14:00 Test Item Value Reference Range Interpretation Comments RDW (test code = RDW) 17.9 11.5-14.5 [facility] HospitalGrjqhyzDJFSNVNXNG3485-75-08 09:14:00 Test Item Value Reference Range Interpretation Comments Platelet (test code = Platelet) 273 133-450 [facility] HospitalRsjswnfJVMBXXWFVT6319-05-70 09:14:00 Test Item Value Reference Range Interpretation Comments MPV (test code = MPV) 8.3 7.4-10.4 [facility]2019-12-02 09:14:00 Test Item Value Reference Range Interpretation Comments Glucose Lvl (test code = Glucose Lvl) 182 70-99 [facility]2019-12-02 09:14:00 Test Item Value Reference Range Interpretation Comments BUN (test code = BUN) 61 7-22 [facility]2019-12-02 09:14:00 Test Item Value Reference Range Interpretation Comments Creatinine Lvl (test code = Creatinine 7.76 0.50-1.40 Lvl) [facility]2019-12-02 09:14:00 Test Item Value Reference Range Interpretation Comments Sodium Lvl (test code = Sodium Lvl) 137 135-145 [facility]2019-12-02 09:14:00 Test Item Value Reference Range Interpretation Comments Potassium Lvl (test code = Potassium 4.7 3.5-5.1 Lvl) [facility]2019-12-02 09:14:00 Test Item Value Reference Range Interpretation Comments Chloride Lvl (test code = Chloride Lvl) 102 95-109 [facility]2019-12-02 09:14:00 Test Item Value Reference Range Interpretation Comments CO2 (test code = CO2) 20 24-32 [facility]2019-12-02 09:14:00 Test Item Value Reference Range Interpretation Comments AGAP (test code = AGAP) 19.7 10.0-20.0 [facility]2019-12-02 09:14:00 Test Item Value Reference Range Interpretation Comments Calcium Lvl (test code = Calcium Lvl) 8.6 8.5-10.5 [facility]2019-12-02 09:14:00 Test Item Value Reference Range Interpretation Comments Albumin Lvl (test code = Albumin Lvl) 2.6 3.5-5.0 [facility]2019-12-02 09:14:00 Test Item Value Reference Range Interpretation Comments Phosphorus (test code = Phosphorus) 8.1 2.5-4.5 [facility]2019-12-02 09:14:00 Test Item Value Reference Range Interpretation Comments eGFR (test code = eGFR) 5 [facility] HospitalKwvyxldXMIYYTYNAC9197-18-94 09:14:00 Test Item Value Reference Range Interpretation Comments Segs (test code = Segs) 60.8 45.0-75.0 [facility] HospitalChgldzqVOIWJEXWGD9023-47-83 09:14:00 Test Item Value Reference Range Interpretation Comments Lymphocytes (test code = Lymphocytes) 24.6 20.0-40.0 [facility] HospitalGhyyexgIGUVBCNRQA5442-55-77 09:14:00 Test Item Value Reference Range Interpretation Comments Monocytes (test code = Monocytes) 8.0 2.0-12.0 [facility] HospitalGawjohoBKPHASWEZV2625-71-48 09:14:00 Test Item Value Reference Range Interpretation Comments Eosinophils (test code = 5.3 See_Comment [A utomated message] The Eosinophils) system which ge nerated this result tra nsmitted reference range : <=4.0. The reference r henry was not used to int erpret this result as normal/abnormal . [facility] HospitalZjzbwmxKWWQYOAUQU9703-43-56 09:14:00 Test Item Value Reference Range Interpretation Comments Basophils (test code = 1.3 See_Comment [Aut omated message] The Basophils) system which ge nerated this result tra nsmitted reference range : <=1.0. The reference r henry was not used to int erpret this result as normal/abnormal . [facility] HospitalFwtxysiALBMYIXWCZ0704-73-73 09:14:00 Test Item Value Reference Range Interpretation Comments Neutrophils # (test code = Neutrophils 4.7 1.5-8.1 #) [facility] HospitalGoqnbczCCBVYUCDSO0690-43-79 09:14:00 Test Item Value Reference Range Interpretation Comments Lymphocytes # (test code = Lymphocytes 1.9 1.0-5.5 #) [facility] HospitalOrduthtRWVDINMZAE3086-14-01 09:14:00 Test Item Value Reference Range Interpretation Comments Monocytes # (test code 0.6 See_Comment [Aut omated message] The = Monocytes #) system which generated this result tra nsmitted reference range : <=0.8. The reference r henry was not used to int erpret this result as normal/abnormal . [facility] HospitalLvhxhoaDDIZDWQCSS3089-79-18 09:14:00 Test Item Value Reference Range Interpretation Comments Eosinophils # (test code 0.4 See_Comment [A utomated message] The = Eosinophils #) system whic h generated this result tra nsmitted reference range : <=0.5. The reference r henry was not used to int erpret this result as normal/abnormal . [facility] HospitalUcpvblsISUMLFHPWF9346-26-68 09:14:00 Test Item Value Reference Range Interpretation Comments Basophils # (test code 0.1 See_Comment [Aut omated message] The = Basophils #) system which generated this result tra nsmitted reference range : <=0.2. The reference r henry was not used to int erpret this result as normal/abnormal . [facility] HospitalSzlwualRQCTUXHPXA9736-32-75 09:14:00 Test Item Value Reference Range Interpretation Comments WBC (test code = WBC) 7.8 3.7-10.4 [facility] HospitalAmfahkhKAFNOMYHFS9520-34-52 09:14:00 Test Item Value Reference Range Interpretation Comments RBC (test code = RBC) 5.66 4.20-5.40 [facility] HospitalYriopkwYUNIIXTORD6904-54-07 09:14:00 Test Item Value Reference Range Interpretation Comments Hgb (test code = Hgb) 14.2 12.0-16.0 [facility] HospitalRijaixgRHUPIGATCO5551-07-74 09:14:00 Test Item Value Reference Range Interpretation Comments Hct (test code = Hct) 44.8 36.0-48.0 [place] 455239-12-02 09:14:00 Test Item Value Reference Range Interpretation Comments MCV (test code = MCV) 79.2 80.0-98.0 [facility] HospitalJbgsqurHXVWLBOZKO6282-34-76 09:14:00 Test Item Value Reference Range Interpretation Comments MCH (test code = MCH) 25.0 pg 27.0-31.0 [facility] HospitalEaytzqmSGPIFFMRDX3768-75-67 09:14:00 Test Item Value Reference Range Interpretation Comments MCHC (test code = MCHC) 31.6 32.0-36.0 [place] 455239-12-02 09:14:00 Test Item Value Reference Range Interpretation Comments RDW (test code = RDW) 17.9 11.5-14.5 [place] 455239-12-02 09:14:00 Test Item Value Reference Range Interpretation Comments Platelet (test code = Platelet) 273 414-450 [facility] HospitalLonxgybDYBNXNEDGX0243-65-62 09:14:00 Test Item Value Reference Range Interpretation Comments MPV (test code = MPV) 8.3 7.4-10.4 [facility]2019-12-02 09:14:00 Test Item Value Reference Range Interpretation Comments Glucose Lvl (test code = Glucose Lvl) 182 70-99 [facility]2019-12-02 09:14:00 Test Item Value Reference Range Interpretation Comments BUN (test code = BUN) 61 7-22 [facility]2019-12-02 09:14:00 Test Item Value Reference Range Interpretation Comments Creatinine Lvl (test code = Creatinine 7.76 0.50-1.40 Lvl) [facility]2019-12-02 09:14:00 Test Item Value Reference Range Interpretation Comments Sodium Lvl (test code = Sodium Lvl) 137 135-145 [facility]2019-12-02 09:14:00 Test Item Value Reference Range Interpretation Comments Potassium Lvl (test code = Potassium 4.7 3.5-5.1 Lvl) [facility]2019-12-02 09:14:00 Test Item Value Reference Range Interpretation Comments Chloride Lvl (test code = Chloride Lvl) 102 95-109 [facility]2019-12-02 09:14:00 Test Item Value Reference Range Interpretation Comments CO2 (test code = CO2) 20 24-32 [facility]2019-12-02 09:14:00 Test Item Value Reference Range Interpretation Comments AGAP (test code = AGAP) 19.7 10.0-20.0 [facility]2019-12-02 09:14:00 Test Item Value Reference Range Interpretation Comments Calcium Lvl (test code = Calcium Lvl) 8.6 8.5-10.5 [facility]2019-12-02 09:14:00 Test Item Value Reference Range Interpretation Comments Albumin Lvl (test code = Albumin Lvl) 2.6 3.5-5.0 [facility]2019-12-02 09:14:00 Test Item Value Reference Range Interpretation Comments Phosphorus (test code = Phosphorus) 8.1 2.5-4.5 [facility]2019-12-02 09:14:00 Test Item Value Reference Range Interpretation Comments eGFR (test code = eGFR) 5 [facility] HospitalPhrkwcaJNWJCYIXOK3359-03-12 09:14:00 Test Item Value Reference Range Interpretation Comments Segs (test code = Segs) 60.8 45.0-75.0 [facility] HospitalNhyrhvcAAXCSOBVBT0463-16-31 09:14:00 Test Item Value Reference Range Interpretation Comments Lymphocytes (test code = Lymphocytes) 24.6 20.0-40.0 [facility] HospitalYqrpkdoLRGMEZCJLR4612-40-93 09:14:00 Test Item Value Reference Range Interpretation Comments Monocytes (test code = Monocytes) 8.0 2.0-12.0 [facility] HospitalHoejtpgWAEDXSXJKS7616-56-99 09:14:00 Test Item Value Reference Range Interpretation Comments Eosinophils (test code = 5.3 See_Comment [A utomated message] The Eosinophils) system which ge nerated this result tra nsmitted reference range : <=4.0. The reference r henry was not used to int erpret this result as normal/abnormal . [facility] HospitalWevsmbwNGBAGNJOWA0581-95-14 09:14:00 Test Item Value Reference Range Interpretation Comments Basophils (test code = 1.3 See_Comment [Aut omated message] The Basophils) system which ge nerated this result tra nsmitted reference range : <=1.0. The reference r henry was not used to int erpret this result as normal/abnormal . [place] 455239-12-02 09:14:00 Test Item Value Reference Range Interpretation Comments Neutrophils # (test code = Neutrophils 4.7 1.5-8.1 #) [facility] HospitalBlwhqzjEUHZWSRZXL7591-96-32 09:14:00 Test Item Value Reference Range Interpretation Comments Lymphocytes # (test code = Lymphocytes 1.9 1.0-5.5 #) [facility] HospitalWbbtfsiJNODFXNSML5908-65-96 09:14:00 Test Item Value Reference Range Interpretation Comments Monocytes # (test code 0.6 See_Comment [Aut omated message] The = Monocytes #) system which generated this result tra nsmitted reference range : <=0.8. The reference r henry was not used to int erpret this result as normal/abnormal . [facility] HospitalMmqianiDPRNFYAKAX4529-57-99 09:14:00 Test Item Value Reference Range Interpretation Comments Eosinophils # (test code 0.4 See_Comment [A utomated message] The = Eosinophils #) system whic h generated this result tra nsmitted reference range : <=0.5. The reference r henry was not used to int erpret this result as normal/abnormal . [facility] HospitalAgynugoRNUZXYHLKV4232-39-28 09:14:00 Test Item Value Reference Range Interpretation Comments Basophils # (test code 0.1 See_Comment [Aut omated message] The = Basophils #) system which generated this result tra nsmitted reference range : <=0.2. The reference r henry was not used to int erpret this result as normal/abnormal . [facility] HospitalDynngcdWBBQBAHEXA7331-56-46 09:14:00 Test Item Value Reference Range Interpretation Comments WBC (test code = WBC) 7.8 3.7-10.4 [facility] HospitalIpmcvjdIKMMFAXCPG0371-01-02 09:14:00 Test Item Value Reference Range Interpretation Comments RBC (test code = RBC) 5.66 4.20-5.40 [facility] HospitalYnzlcypRQJQBGJKVU1357-65-16 09:14:00 Test Item Value Reference Range Interpretation Comments Hgb (test code = Hgb) 14.2 12.0-16.0 [place] 455239-12-02 09:14:00 Test Item Value Reference Range Interpretation Comments Hct (test code = Hct) 44.8 36.0-48.0 [facility] HospitalHzsghiuDMSIFRSIBG0979-00-54 09:14:00 Test Item Value Reference Range Interpretation Comments MCV (test code = MCV) 79.2 80.0-98.0 [facility] HospitalPjouhziZNNTSOOAKB8778-33-65 09:14:00 Test Item Value Reference Range Interpretation Comments MCH (test code = MCH) 25.0 pg 27.0-31.0 [facility] HospitalLobzcngAVPQEPEOBP1136-40-90 09:14:00 Test Item Value Reference Range Interpretation Comments MCHC (test code = MCHC) 31.6 32.0-36.0 [facility] HospitalCfyckrrZALPNIKEGY5967-22-69 09:14:00 Test Item Value Reference Range Interpretation Comments RDW (test code = RDW) 17.9 11.5-14.5 [facility] HospitalBzwpjwtAWOSOZHZLM9585-70-30 09:14:00 Test Item Value Reference Range Interpretation Comments Platelet (test code = Platelet) 273 558-450 [facility] HospitalNgcgvobLCZWPERVMR5976-67-73 09:14:00 Test Item Value Reference Range Interpretation Comments MPV (test code = MPV) 8.3 7.4-10.4 [facility]2019-12-02 09:14:00 Test Item Value Reference Range Interpretation Comments Glucose Lvl (test code = Glucose Lvl) 182 70-99 [facility]2019-12-02 09:14:00 Test Item Value Reference Range Interpretation Comments BUN (test code = BUN) 61 7-22 [facility]2019-12-02 09:14:00 Test Item Value Reference Range Interpretation Comments Creatinine Lvl (test code = Creatinine 7.76 0.50-1.40 Lvl) [facility]2019-12-02 09:14:00 Test Item Value Reference Range Interpretation Comments Sodium Lvl (test code = Sodium Lvl) 137 135-145 [facility]2019-12-02 09:14:00 Test Item Value Reference Range Interpretation Comments Potassium Lvl (test code = Potassium 4.7 3.5-5.1 Lvl) [facility]2019-12-02 09:14:00 Test Item Value Reference Range Interpretation Comments Chloride Lvl (test code = Chloride Lvl) 102 95-109 [facility]2019-12-02 09:14:00 Test Item Value Reference Range Interpretation Comments CO2 (test code = CO2) 20 24-32 [facility]2019-12-02 09:14:00 Test Item Value Reference Range Interpretation Comments AGAP (test code = AGAP) 19.7 10.0-20.0 [facility]2019-12-02 09:14:00 Test Item Value Reference Range Interpretation Comments Calcium Lvl (test code = Calcium Lvl) 8.6 8.5-10.5 [facility]2019-12-02 09:14:00 Test Item Value Reference Range Interpretation Comments Albumin Lvl (test code = Albumin Lvl) 2.6 3.5-5.0 [facility]2019-12-02 09:14:00 Test Item Value Reference Range Interpretation Comments Phosphorus (test code = Phosphorus) 8.1 2.5-4.5 [facility]2019-12-02 09:14:00 Test Item Value Reference Range Interpretation Comments eGFR (test code = eGFR) 5 [facility] HospitalMhkpjquRHROLUJEYG7293-28-89 09:14:00 Test Item Value Reference Range Interpretation Comments Segs (test code = Segs) 60.8 45.0-75.0 [place] 455239-12-02 09:14:00 Test Item Value Reference Range Interpretation Comments Lymphocytes (test code = Lymphocytes) 24.6 20.0-40.0 [facility] HospitalUktbluxDQCKADFQFF8595-37-53 09:14:00 Test Item Value Reference Range Interpretation Comments Monocytes (test code = Monocytes) 8.0 2.0-12.0 [facility] HospitalSpbbguqXNWTMTRDZS5631-36-77 09:14:00 Test Item Value Reference Range Interpretation Comments Eosinophils (test code = 5.3 See_Comment [A utomated message] The Eosinophils) system which ge nerated this result tra nsmitted reference range : <=4.0. The reference r henry was not used to int erpret this result as normal/abnormal . [facility] HospitalTqwpwobQIKHUDCQPK4852-88-23 09:14:00 Test Item Value Reference Range Interpretation Comments Basophils (test code = 1.3 See_Comment [Aut omated message] The Basophils) system which ge nerated this result tra nsmitted reference range : <=1.0. The reference r henry was not used to int erpret this result as normal/abnormal . [facility] HospitalHogqzlgGVQJLLEUBU0219-61-91 09:14:00 Test Item Value Reference Range Interpretation Comments Neutrophils # (test code = Neutrophils 4.7 1.5-8.1 #) [facility] HospitalLfwiewxKARQZQKLWO0648-44-68 09:14:00 Test Item Value Reference Range Interpretation Comments Lymphocytes # (test code = Lymphocytes 1.9 1.0-5.5 #) [facility] HospitalLrhwyvrJOEJHQEJMK0656-52-49 09:14:00 Test Item Value Reference Range Interpretation Comments Monocytes # (test code 0.6 See_Comment [Aut omated message] The = Monocytes #) system which generated this result tra nsmitted reference range : <=0.8. The reference r henry was not used to int erpret this result as normal/abnormal . [facility] HospitalVhnkccvPBYBXRTSNQ2823-34-34 09:14:00 Test Item Value Reference Range Interpretation Comments Eosinophils # (test code 0.4 See_Comment [A utomated message] The = Eosinophils #) system whic h generated this result tra nsmitted reference range : <=0.5. The reference r henry was not used to int erpret this result as normal/abnormal . [facility] HospitalUiwemwcGOEPROSEWD7906-99-74 09:14:00 Test Item Value Reference Range Interpretation Comments Basophils # (test code 0.1 See_Comment [Aut omated message] The = Basophils #) system which generated this result tra nsmitted reference range : <=0.2. The reference r henry was not used to int erpret this result as normal/abnormal . [facility] HospitalSdvtmflBPVBWUZTXZ6615-93-17 09:14:00 Test Item Value Reference Range Interpretation Comments WBC (test code = WBC) 7.8 3.7-10.4 [facility] HospitalIuelkiqSBSNWHAHKQ1043-43-86 09:14:00 Test Item Value Reference Range Interpretation Comments RBC (test code = RBC) 5.66 4.20-5.40 [facility] HospitalIxdsqxkYSAFRYTCZD1513-98-27 09:14:00 Test Item Value Reference Range Interpretation Comments Hgb (test code = Hgb) 14.2 12.0-16.0 [facility] HospitalCmhkyazXVHNIHHFZB7173-09-03 09:14:00 Test Item Value Reference Range Interpretation Comments Hct (test code = Hct) 44.8 36.0-48.0 [facility] HospitalAonfjnwAZQSCAJCCI8262-16-13 09:14:00 Test Item Value Reference Range Interpretation Comments MCV (test code = MCV) 79.2 80.0-98.0 [facility] HospitalDynhbelZZRCASGPHG0871-35-43 09:14:00 Test Item Value Reference Range Interpretation Comments MCH (test code = MCH) 25.0 pg 27.0-31.0 [facility] HospitalCbsdysxPDXXNWLTIB7601-18-81 09:14:00 Test Item Value Reference Range Interpretation Comments MCHC (test code = MCHC) 31.6 32.0-36.0 [facility] HospitalClqmnrhBVGDLYWPRJ1453-71-14 09:14:00 Test Item Value Reference Range Interpretation Comments RDW (test code = RDW) 17.9 11.5-14.5 [facility] HospitalYhlekdrBCYPUFSSSD5309-80-76 09:14:00 Test Item Value Reference Range Interpretation Comments Platelet (test code = Platelet) 273 570-450 [facility] HospitalGpyalvvIPNJERLOUT6441-82-53 09:14:00 Test Item Value Reference Range Interpretation Comments MPV (test code = MPV) 8.3 7.4-10.4 [facility]2019-12-02 09:14:00 Test Item Value Reference Range Interpretation Comments Glucose Lvl (test code = Glucose Lvl) 182 70-99 [facility]2019-12-02 09:14:00 Test Item Value Reference Range Interpretation Comments BUN (test code = BUN) 61 7-22 [facility]2019-12-02 09:14:00 Test Item Value Reference Range Interpretation Comments Creatinine Lvl (test code = Creatinine 7.76 0.50-1.40 Lvl) [facility]2019-12-02 09:14:00 Test Item Value Reference Range Interpretation Comments Sodium Lvl (test code = Sodium Lvl) 137 135-145 [facility]2019-12-02 09:14:00 Test Item Value Reference Range Interpretation Comments Potassium Lvl (test code = Potassium 4.7 3.5-5.1 Lvl) [facility]2019-12-02 09:14:00 Test Item Value Reference Range Interpretation Comments Chloride Lvl (test code = Chloride Lvl) 102 95-109 [facility]2019-12-02 09:14:00 Test Item Value Reference Range Interpretation Comments CO2 (test code = CO2) 20 24-32 [facility]2019-12-02 09:14:00 Test Item Value Reference Range Interpretation Comments AGAP (test code = AGAP) 19.7 10.0-20.0 [facility]2019-12-02 09:14:00 Test Item Value Reference Range Interpretation Comments Calcium Lvl (test code = Calcium Lvl) 8.6 8.5-10.5 [facility]2019-12-02 09:14:00 Test Item Value Reference Range Interpretation Comments Albumin Lvl (test code = Albumin Lvl) 2.6 3.5-5.0 [facility]2019-12-02 09:14:00 Test Item Value Reference Range Interpretation Comments Phosphorus (test code = Phosphorus) 8.1 2.5-4.5 [facility]2019-12-02 09:14:00 Test Item Value Reference Range Interpretation Comments eGFR (test code = eGFR) 5 [facility]KdgvposFLVJCSSCNO8375-01-29 09:14:00 Test Item Value Reference Range Interpretation Comments Segs (test code = Segs) 60.8 45.0-75.0 [facility]BsvtzeaKZHPVBXDTB1018-88-70 09:14:00 Test Item Value Reference Range Interpretation Comments Lymphocytes (test code = Lymphocytes) 24.6 20.0-40.0 [facility] HospitalLazehwaXXRVCQRREW5995-61-26 09:14:00 Test Item Value Reference Range Interpretation Comments Monocytes (test code = Monocytes) 8.0 2.0-12.0 [facility] HospitalOynhwppFWTHFYBLUR6260-55-52 09:14:00 Test Item Value Reference Range Interpretation Comments Eosinophils (test code = 5.3 See_Comment [A utomated message] The Eosinophils) system which ge nerated this result tra nsmitted reference range : <=4.0. The reference r henry was not used to int erpret this result as normal/abnormal . [facility] HospitalNgdqimfUGJVJVOEVV3553-45-28 09:14:00 Test Item Value Reference Range Interpretation Comments Basophils (test code = 1.3 See_Comment [Aut omated message] The Basophils) system which ge nerated this result tra nsmitted reference range : <=1.0. The reference r henry was not used to int erpret this result as normal/abnormal . [facility] HospitalHvzdvyfURUFZULFAO7184-45-50 09:14:00 Test Item Value Reference Range Interpretation Comments Neutrophils # (test code = Neutrophils 4.7 1.5-8.1 #) [facility] HospitalFacjejgBALDBUOUTQ2319-95-49 09:14:00 Test Item Value Reference Range Interpretation Comments Lymphocytes # (test code = Lymphocytes 1.9 1.0-5.5 #) [facility] HospitalRlccbbaVOZFBFEBSU3885-32-97 09:14:00 Test Item Value Reference Range Interpretation Comments Monocytes # (test code 0.6 See_Comment [Aut omated message] The = Monocytes #) system which generated this result tra nsmitted reference range : <=0.8. The reference r henry was not used to int erpret this result as normal/abnormal . [facility] HospitalPpvcpxpUUDGMDOOWK7646-61-73 09:14:00 Test Item Value Reference Range Interpretation Comments Eosinophils # (test code 0.4 See_Comment [A utomated message] The = Eosinophils #) system whic h generated this result tra nsmitted reference range : <=0.5. The reference r henry was not used to int erpret this result as normal/abnormal . [facility] HospitalHchwapdHUSRHMVKGO8560-20-10 09:14:00 Test Item Value Reference Range Interpretation Comments Basophils # (test code 0.1 See_Comment [Aut omated message] The = Basophils #) system which generated this result tra nsmitted reference range : <=0.2. The reference r henry was not used to int erpret this result as normal/abnormal . [facility] HospitalKwbcnzvHVUKNFPIOD5328-71-11 09:14:00 Test Item Value Reference Range Interpretation Comments WBC (test code = WBC) 7.8 3.7-10.4 [facility] HospitalIhxhboeHTJDGAMTWJ6670-19-67 09:14:00 Test Item Value Reference Range Interpretation Comments RBC (test code = RBC) 5.66 4.20-5.40 [facility] HospitalZyygyifKUGIPBUZPX4985-84-30 09:14:00 Test Item Value Reference Range Interpretation Comments Hgb (test code = Hgb) 14.2 12.0-16.0 [facility] HospitalZnoigmvVMRXTYPAFF5081-53-02 09:14:00 Test Item Value Reference Range Interpretation Comments Hct (test code = Hct) 44.8 36.0-48.0 [place] 455239-12-02 09:14:00 Test Item Value Reference Range Interpretation Comments MCV (test code = MCV) 79.2 80.0-98.0 [facility] HospitalBvlemwdEJVEMGZPBM5801-80-06 09:14:00 Test Item Value Reference Range Interpretation Comments MCH (test code = MCH) 25.0 pg 27.0-31.0 [facility] HospitalZjwcdugQMWCFGMVKV1501-82-63 09:14:00 Test Item Value Reference Range Interpretation Comments MCHC (test code = MCHC) 31.6 32.0-36.0 [facility] HospitalFkbwkqeSVWBXDVJUZ7737-29-62 09:14:00 Test Item Value Reference Range Interpretation Comments RDW (test code = RDW) 17.9 11.5-14.5 [facility] HospitalNrfbmozMEZKFGDDPE3652-51-00 09:14:00 Test Item Value Reference Range Interpretation Comments Platelet (test code = Platelet) 273 133-450 [facility] HospitalYogocltRMPQTMITUG2831-48-94 09:14:00 Test Item Value Reference Range Interpretation Comments MPV (test code = MPV) 8.3 7.4-10.4 [facility]2019-12-02 09:14:00 Test Item Value Reference Range Interpretation Comments Glucose Lvl (test code = Glucose Lvl) 182 70-99 [facility]2019-12-02 09:14:00 Test Item Value Reference Range Interpretation Comments BUN (test code = BUN) 61 7-22 [facility]2019-12-02 09:14:00 Test Item Value Reference Range Interpretation Comments Creatinine Lvl (test code = Creatinine 7.76 0.50-1.40 Lvl) [facility]2019-12-02 09:14:00 Test Item Value Reference Range Interpretation Comments Sodium Lvl (test code = Sodium Lvl) 137 135-145 [facility]2019-12-02 09:14:00 Test Item Value Reference Range Interpretation Comments Potassium Lvl (test code = Potassium 4.7 3.5-5.1 Lvl) [facility]2019-12-02 09:14:00 Test Item Value Reference Range Interpretation Comments Chloride Lvl (test code = Chloride Lvl) 102 95-109 [facility]2019-12-02 09:14:00 Test Item Value Reference Range Interpretation Comments CO2 (test code = CO2) 20 24-32 [facility]2019-12-02 09:14:00 Test Item Value Reference Range Interpretation Comments AGAP (test code = AGAP) 19.7 10.0-20.0 [facility]2019-12-02 09:14:00 Test Item Value Reference Range Interpretation Comments Calcium Lvl (test code = Calcium Lvl) 8.6 8.5-10.5 [facility]2019-12-02 09:14:00 Test Item Value Reference Range Interpretation Comments Albumin Lvl (test code = Albumin Lvl) 2.6 3.5-5.0 [facility]2019-12-02 09:14:00 Test Item Value Reference Range Interpretation Comments Phosphorus (test code = Phosphorus) 8.1 2.5-4.5 [facility]2019-12-02 09:14:00 Test Item Value Reference Range Interpretation Comments eGFR (test code = eGFR) 5 [facility] HospitalDyiulqhBSIXRIWICD2470-57-18 09:14:00 Test Item Value Reference Range Interpretation Comments Segs (test code = Segs) 60.8 45.0-75.0 [facility] HospitalIwbtkgtSHFIBKAWQO3795-52-04 09:14:00 Test Item Value Reference Range Interpretation Comments Lymphocytes (test code = Lymphocytes) 24.6 20.0-40.0 [facility] HospitalKjtaqjiXTLRVTSBAQ5365-13-30 09:14:00 Test Item Value Reference Range Interpretation Comments Monocytes (test code = Monocytes) 8.0 2.0-12.0 [facility] HospitalZvipqrfOSOYACVAMK9457-50-17 09:14:00 Test Item Value Reference Range Interpretation Comments Eosinophils (test code = 5.3 See_Comment [A utomated message] The Eosinophils) system which ge nerated this result tra nsmitted reference range : <=4.0. The reference r henry was not used to int erpret this result as normal/abnormal . [facility] HospitalJlwdlimJQXSBYVEGN7919-18-81 09:14:00 Test Item Value Reference Range Interpretation Comments Basophils (test code = 1.3 See_Comment [Aut omated message] The Basophils) system which ge nerated this result tra nsmitted reference range : <=1.0. The reference r henry was not used to int erpret this result as normal/abnormal . [facility] HospitalQzpgyiqDFSXSERONN5739-68-34 09:14:00 Test Item Value Reference Range Interpretation Comments Neutrophils # (test code = Neutrophils 4.7 1.5-8.1 #) [facility] HospitalMirjniwWCBKEGSYYW5943-45-84 09:14:00 Test Item Value Reference Range Interpretation Comments Lymphocytes # (test code = Lymphocytes 1.9 1.0-5.5 #) [facility] HospitalUgpxqtvBSAVKLNSCC9814-62-48 09:14:00 Test Item Value Reference Range Interpretation Comments Monocytes # (test code 0.6 See_Comment [Aut omated message] The = Monocytes #) system which generated this result tra nsmitted reference range : <=0.8. The reference r henry was not used to int erpret this result as normal/abnormal . [facility] HospitalAqqtkypPUOJQECBGP7180-82-61 09:14:00 Test Item Value Reference Range Interpretation Comments Eosinophils # (test code 0.4 See_Comment [A utomated message] The = Eosinophils #) system whic h generated this result tra nsmitted reference range : <=0.5. The reference r henry was not used to int erpret this result as normal/abnormal . [facility] HospitalMklrkjnTYDFWKLYAJ7992-54-66 09:14:00 Test Item Value Reference Range Interpretation Comments Basophils # (test code 0.1 See_Comment [Aut omated message] The = Basophils #) system which generated this result tra nsmitted reference range : <=0.2. The reference r henry was not used to int erpret this result as normal/abnormal . [facility] HospitalLiqapqjUCGYDMUVEO3275-38-74 09:14:00 Test Item Value Reference Range Interpretation Comments WBC (test code = WBC) 7.8 3.7-10.4 [facility] HospitalDutmoqgIQILBPGECY0010-51-15 09:14:00 Test Item Value Reference Range Interpretation Comments RBC (test code = RBC) 5.66 4.20-5.40 [place] 455239-12-02 09:14:00 Test Item Value Reference Range Interpretation Comments Hgb (test code = Hgb) 14.2 12.0-16.0 [facility] HospitalDfjmbobCRKEPFBBNE4071-30-35 09:14:00 Test Item Value Reference Range Interpretation Comments Hct (test code = Hct) 44.8 36.0-48.0 [facility] HospitalGykyxwwKOHGVDPSDA6482-55-27 09:14:00 Test Item Value Reference Range Interpretation Comments MCV (test code = MCV) 79.2 80.0-98.0 [place] 455239-12-02 09:14:00 Test Item Value Reference Range Interpretation Comments MCH (test code = MCH) 25.0 pg 27.0-31.0 [facility] HospitalVbmnomkOIVHGDZKDX2291-43-73 09:14:00 Test Item Value Reference Range Interpretation Comments MCHC (test code = MCHC) 31.6 32.0-36.0 [facility] HospitalAmacpptNRHXQFEYGF7621-80-83 09:14:00 Test Item Value Reference Range Interpretation Comments RDW (test code = RDW) 17.9 11.5-14.5 [place] 455239-12-02 09:14:00 Test Item Value Reference Range Interpretation Comments Platelet (test code = Platelet) 273 133-450 [facility] HospitalIouptokYPNYDSCSXX9510-31-09 09:14:00 Test Item Value Reference Range Interpretation Comments MPV (test code = MPV) 8.3 7.4-10.4 [facility]2019-12-02 09:14:00 Test Item Value Reference Range Interpretation Comments Glucose Lvl (test code = Glucose Lvl) 182 70-99 [facility]2019-12-02 09:14:00 Test Item Value Reference Range Interpretation Comments BUN (test code = BUN) 61 7-22 [facility]2019-12-02 09:14:00 Test Item Value Reference Range Interpretation Comments Creatinine Lvl (test code = Creatinine 7.76 0.50-1.40 Lvl) [facility]2019-12-02 09:14:00 Test Item Value Reference Range Interpretation Comments Sodium Lvl (test code = Sodium Lvl) 137 135-145 [facility]2019-12-02 09:14:00 Test Item Value Reference Range Interpretation Comments Potassium Lvl (test code = Potassium 4.7 3.5-5.1 Lvl) [facility]2019-12-02 09:14:00 Test Item Value Reference Range Interpretation Comments Chloride Lvl (test code = Chloride Lvl) 102 95-109 [facility]2019-12-02 09:14:00 Test Item Value Reference Range Interpretation Comments CO2 (test code = CO2) 20 24-32 [facility]2019-12-02 09:14:00 Test Item Value Reference Range Interpretation Comments AGAP (test code = AGAP) 19.7 10.0-20.0 [facility]2019-12-02 09:14:00 Test Item Value Reference Range Interpretation Comments Calcium Lvl (test code = Calcium Lvl) 8.6 8.5-10.5 [facility]2019-12-02 09:14:00 Test Item Value Reference Range Interpretation Comments Albumin Lvl (test code = Albumin Lvl) 2.6 3.5-5.0 [facility]2019-12-02 09:14:00 Test Item Value Reference Range Interpretation Comments Phosphorus (test code = Phosphorus) 8.1 2.5-4.5 [facility]2019-12-02 09:14:00 Test Item Value Reference Range Interpretation Comments eGFR (test code = eGFR) 5 [facility] HospitalLakfwkfERTMFBYXWN1457-51-48 09:14:00 Test Item Value Reference Range Interpretation Comments Segs (test code = Segs) 60.8 45.0-75.0 [facility] HospitalVpgfquaCWRMOXYOLE3062-09-71 09:14:00 Test Item Value Reference Range Interpretation Comments Lymphocytes (test code = Lymphocytes) 24.6 20.0-40.0 [facility] HospitalPdmikgmSBUDEFYPQM7239-06-72 09:14:00 Test Item Value Reference Range Interpretation Comments Monocytes (test code = Monocytes) 8.0 2.0-12.0 [facility] HospitalAviijyrWICIJWFCLB0894-97-36 09:14:00 Test Item Value Reference Range Interpretation Comments Eosinophils (test code = 5.3 See_Comment [A utomated message] The Eosinophils) system which ge nerated this result tra nsmitted reference range : <=4.0. The reference r henry was not used to int erpret this result as normal/abnormal . [facility] HospitalXxuonuzXFLUVHSUZZ8578-17-93 09:14:00 Test Item Value Reference Range Interpretation Comments Basophils (test code = 1.3 See_Comment [Aut omated message] The Basophils) system which ge nerated this result tra nsmitted reference range : <=1.0. The reference r henry was not used to int erpret this result as normal/abnormal . [facility] HospitalBuvdekjKSBGMEJSEY8783-77-11 09:14:00 Test Item Value Reference Range Interpretation Comments Neutrophils # (test code = Neutrophils 4.7 1.5-8.1 #) [facility] HospitalPzuhbuuRFTZRXVMQM3573-55-42 09:14:00 Test Item Value Reference Range Interpretation Comments Lymphocytes # (test code = Lymphocytes 1.9 1.0-5.5 #) [facility] HospitalNkytavvBEUKMTZWND5708-98-67 09:14:00 Test Item Value Reference Range Interpretation Comments Monocytes # (test code 0.6 See_Comment [Aut omated message] The = Monocytes #) system which generated this result tra nsmitted reference range : <=0.8. The reference r henry was not used to int erpret this result as normal/abnormal . [facility] HospitalPbrwwqgDLWHFNMFWZ8575-20-93 09:14:00 Test Item Value Reference Range Interpretation Comments Eosinophils # (test code 0.4 See_Comment [A utomated message] The = Eosinophils #) system whic h generated this result tra nsmitted reference range : <=0.5. The reference r henry was not used to int erpret this result as normal/abnormal . [facility] HospitalFtohixsJFGGDBVWCG8423-55-24 09:14:00 Test Item Value Reference Range Interpretation Comments Basophils # (test code 0.1 See_Comment [Aut omated message] The = Basophils #) system which generated this result tra nsmitted reference range : <=0.2. The reference r henry was not used to int erpret this result as normal/abnormal . [facility] HospitalHzwvzsuSUCIPNMJBK6440-41-31 09:14:00 Test Item Value Reference Range Interpretation Comments WBC (test code = WBC) 7.8 3.7-10.4 [facility] HospitalXlnzixbEXFYMIRYUC2607-28-08 09:14:00 Test Item Value Reference Range Interpretation Comments RBC (test code = RBC) 5.66 4.20-5.40 [facility] HospitalIqqzimrLDPUQZOXNE8010-84-73 09:14:00 Test Item Value Reference Range Interpretation Comments Hgb (test code = Hgb) 14.2 12.0-16.0 [facility] HospitalWpownxdSIXHKICXSN0469-39-16 09:14:00 Test Item Value Reference Range Interpretation Comments Hct (test code = Hct) 44.8 36.0-48.0 [place] 455239-12-02 09:14:00 Test Item Value Reference Range Interpretation Comments MCV (test code = MCV) 79.2 80.0-98.0 [facility] HospitalOhhfwhlCWRLMTTDTC7578-30-82 09:14:00 Test Item Value Reference Range Interpretation Comments MCH (test code = MCH) 25.0 pg 27.0-31.0 [facility] HospitalYshnbvlSYKNJVCFIH3827-25-86 09:14:00 Test Item Value Reference Range Interpretation Comments MCHC (test code = MCHC) 31.6 32.0-36.0 [facility] HospitalFfjzwktAOXKRCPFTF4939-41-61 09:14:00 Test Item Value Reference Range Interpretation Comments RDW (test code = RDW) 17.9 11.5-14.5 [facility] HospitalLbwjpvxVIJGSIVEBF7669-43-83 09:14:00 Test Item Value Reference Range Interpretation Comments Platelet (test code = Platelet) 273 133-450 [facility] HospitalTxvcnmsOJBZYJNARZ0839-46-54 09:14:00 Test Item Value Reference Range Interpretation Comments MPV (test code = MPV) 8.3 7.4-10.4 [facility]2019-12-02 09:14:00 Test Item Value Reference Range Interpretation Comments Glucose Lvl (test code = Glucose Lvl) 182 70-99 [facility]2019-12-02 09:14:00 Test Item Value Reference Range Interpretation Comments BUN (test code = BUN) 61 7-22 [facility]2019-12-02 09:14:00 Test Item Value Reference Range Interpretation Comments Creatinine Lvl (test code = Creatinine 7.76 0.50-1.40 Lvl) [facility]2019-12-02 09:14:00 Test Item Value Reference Range Interpretation Comments Sodium Lvl (test code = Sodium Lvl) 137 135-145 [facility]2019-12-02 09:14:00 Test Item Value Reference Range Interpretation Comments Potassium Lvl (test code = Potassium 4.7 3.5-5.1 Lvl) [facility]2019-12-02 09:14:00 Test Item Value Reference Range Interpretation Comments Chloride Lvl (test code = Chloride Lvl) 102 95-109 [facility]2019-12-02 09:14:00 Test Item Value Reference Range Interpretation Comments CO2 (test code = CO2) 20 24-32 [facility]2019-12-02 09:14:00 Test Item Value Reference Range Interpretation Comments AGAP (test code = AGAP) 19.7 10.0-20.0 [place] 729219-12-02 09:14:00 Test Item Value Reference Range Interpretation Comments Calcium Lvl (test code = Calcium Lvl) 8.6 8.5-10.5 [facility]2019-12-02 09:14:00 Test Item Value Reference Range Interpretation Comments Albumin Lvl (test code = Albumin Lvl) 2.6 3.5-5.0 [facility]2019-12-02 09:14:00 Test Item Value Reference Range Interpretation Comments Phosphorus (test code = Phosphorus) 8.1 2.5-4.5 [facility]2019-12-02 09:14:00 Test Item Value Reference Range Interpretation Comments eGFR (test code = eGFR) 5 [facility] HospitalOrpazoyQOKESTRCHY5668-73-42 09:14:00 Test Item Value Reference Range Interpretation Comments Segs (test code = Segs) 60.8 45.0-75.0 [facility] HospitalQyfpubeREWLMMGKMV8816-31-37 09:14:00 Test Item Value Reference Range Interpretation Comments Lymphocytes (test code = Lymphocytes) 24.6 20.0-40.0 [facility] HospitalAzbzmwsIJMISWGQIK7334-34-93 09:14:00 Test Item Value Reference Range Interpretation Comments Monocytes (test code = Monocytes) 8.0 2.0-12.0 [facility]2019-12-02 09:14:00 Test Item Value Reference Range Interpretation Comments Glucose Lvl (test code = Glucose Lvl) 182 70-99 [facility]2019-12-02 09:14:00 Test Item Value Reference Range Interpretation Comments BUN (test code = BUN) 61 7-22 [facility]2019-12-02 09:14:00 Test Item Value Reference Range Interpretation Comments Creatinine Lvl (test code = Creatinine 7.76 0.50-1.40 Lvl) [facility]2019-12-02 09:14:00 Test Item Value Reference Range Interpretation Comments Sodium Lvl (test code = Sodium Lvl) 137 135-145 [facility] HospitalImoooggHTLXRJBVTD9018-14-72 09:14:00 Test Item Value Reference Range Interpretation Comments Eosinophils (test code = 5.3 See_Comment [A utomated message] The Eosinophils) system which ge nerated this result tra nsmitted reference range : <=4.0. The reference r henry was not used to int erpret this result as normal/abnormal . [facility]2019-12-02 09:14:00 Test Item Value Reference Range Interpretation Comments Potassium Lvl (test code = Potassium 4.7 3.5-5.1 Lvl) [facility]2019-12-02 09:14:00 Test Item Value Reference Range Interpretation Comments Chloride Lvl (test code = Chloride Lvl) 102 95-109 [facility]2019-12-02 09:14:00 Test Item Value Reference Range Interpretation Comments CO2 (test code = CO2) 20 24-32 [place] 729219-12-02 09:14:00 Test Item Value Reference Range Interpretation Comments AGAP (test code = AGAP) 19.7 10.0-20.0 [facility]2019-12-02 09:14:00 Test Item Value Reference Range Interpretation Comments Calcium Lvl (test code = Calcium Lvl) 8.6 8.5-10.5 [facility]2019-12-02 09:14:00 Test Item Value Reference Range Interpretation Comments Albumin Lvl (test code = Albumin Lvl) 2.6 3.5-5.0 [facility]2019-12-02 09:14:00 Test Item Value Reference Range Interpretation Comments Phosphorus (test code = Phosphorus) 8.1 2.5-4.5 [facility]2019-12-02 09:14:00 Test Item Value Reference Range Interpretation Comments eGFR (test code = eGFR) 5 [facility] HospitalKlzmojgTCZLKWVZIK3048-03-70 09:14:00 Test Item Value Reference Range Interpretation Comments Segs (test code = Segs) 60.8 45.0-75.0 [place] 455239-12-02 09:14:00 Test Item Value Reference Range Interpretation Comments Lymphocytes (test code = Lymphocytes) 24.6 20.0-40.0 [facility] HospitalYbhhbrvVBWICETDWB7458-55-30 09:14:00 Test Item Value Reference Range Interpretation Comments Basophils (test code = 1.3 See_Comment [Aut omated message] The Basophils) system which ge nerated this result tra nsmitted reference range : <=1.0. The reference r henry was not used to int erpret this result as normal/abnormal . [address]12-02 09:14:00 Test Item Value Reference Range Interpretation Comments Monocytes (test code = Monocytes) 8.0 2.0-12.0 [facility] HospitalJydgpoiQMTKCZMWMV2974-78-55 09:14:00 Test Item Value Reference Range Interpretation Comments Eosinophils (test code = 5.3 See_Comment [A utomated message] The Eosinophils) system which ge nerated this result tra nsmitted reference range : <=4.0. The reference r henry was not used to int erpret this result as normal/abnormal . [facility] HospitalXdzfaswWKUSPQGPHI8796-69-71 09:14:00 Test Item Value Reference Range Interpretation Comments Basophils (test code = 1.3 See_Comment [Aut omated message] The Basophils) system which ge nerated this result tra nsmitted reference range : <=1.0. The reference r henry was not used to int erpret this result as normal/abnormal . [facility] HospitalZohxkelGIMYBXCRJH1058-89-14 09:14:00 Test Item Value Reference Range Interpretation Comments Neutrophils # (test code = Neutrophils 4.7 1.5-8.1 #) [facility] HospitalHkhorzzXLKPQMHZOP2862-27-54 09:14:00 Test Item Value Reference Range Interpretation Comments Lymphocytes # (test code = Lymphocytes 1.9 1.0-5.5 #) [facility]T[id number] 09:14:00 Test Item Value Reference Range Interpretation Comments Monocytes # (test code 0.6 See_Comment [Aut omated message] The = Monocytes #) system which generated this result tra nsmitted reference range : <=0.8. The reference r henry was not used to int erpret this result as normal/abnormal . [facility] HospitalDishppdOYCDHQWSIZ6427-71-61 09:14:00 Test Item Value Reference Range Interpretation Comments Eosinophils # (test code 0.4 See_Comment [A utomated message] The = Eosinophils #) system whic h generated this result tra nsmitted reference range : <=0.5. The reference r henry was not used to int erpret this result as normal/abnormal . [facility] HospitalBmifbwoORQFRJJCLX4946-57-87 09:14:00 Test Item Value Reference Range Interpretation Comments Basophils # (test code 0.1 See_Comment [Aut omated message] The = Basophils #) system which generated this result tra nsmitted reference range : <=0.2. The reference r henry was not used to int erpret this result as normal/abnormal . [facility] HospitalEkbhcyyGWUCALNSCG3248-77-96 09:14:00 Test Item Value Reference Range Interpretation Comments WBC (test code = WBC) 7.8 3.7-10.4 [facility] HospitalVrjavtpLLLGMBERZW1743-07-25 09:14:00 Test Item Value Reference Range Interpretation Comments RBC (test code = RBC) 5.66 4.20-5.40 [facility] HospitalZeotkzaWMJVCHODHS4693-62-91 09:14:00 Test Item Value Reference Range Interpretation Comments Neutrophils # (test code = Neutrophils 4.7 1.5-8.1 #) [facility] HospitalYpjnpvwLOWPJCKPQR1664-54-82 09:14:00 Test Item Value Reference Range Interpretation Comments Hgb (test code = Hgb) 14.2 12.0-16.0 [facility] HospitalBrubntfTKZISFHSCJ0783-82-75 09:14:00 Test Item Value Reference Range Interpretation Comments Hct (test code = Hct) 44.8 36.0-48.0 [facility] HospitalHdebsfmTGEYZJSNBT1342-36-28 09:14:00 Test Item Value Reference Range Interpretation Comments MCV (test code = MCV) 79.2 80.0-98.0 [facility] HospitalEheoiemLQIMQIBEGE3305-13-78 09:14:00 Test Item Value Reference Range Interpretation Comments MCH (test code = MCH) 25.0 pg 27.0-31.0 [facility] HospitalIxculqwYOGKCMGWGB7367-75-51 09:14:00 Test Item Value Reference Range Interpretation Comments MCHC (test code = MCHC) 31.6 32.0-36.0 [facility] HospitalMltxpjiMSZHSXAXNQ6216-95-23 09:14:00 Test Item Value Reference Range Interpretation Comments RDW (test code = RDW) 17.9 11.5-14.5 [facility] HospitalWxpxhkuPKNYQZCULJ8089-13-20 09:14:00 Test Item Value Reference Range Interpretation Comments Platelet (test code = Platelet) 273 133-450 [facility] HospitalCpnqfthLREEELATGI7292-88-91 09:14:00 Test Item Value Reference Range Interpretation Comments MPV (test code = MPV) 8.3 7.4-10.4 [facility] HospitalAnjtsolNATEKQRFYO1124-51-66 09:14:00 Test Item Value Reference Range Interpretation Comments Lymphocytes # (test code = Lymphocytes 1.9 1.0-5.5 #) [facility] HospitalSrrwqlfQNGWAGTBVX6442-26-96 09:14:00 Test Item Value Reference Range Interpretation Comments Monocytes # (test code 0.6 See_Comment [Aut omated message] The = Monocytes #) system which generated this result tra nsmitted reference range : <=0.8. The reference r henry was not used to int erpret this result as normal/abnormal . [facility] HospitalCswarkvZGXHSLXBVO4276-70-65 09:14:00 Test Item Value Reference Range Interpretation Comments Eosinophils # (test code 0.4 See_Comment [A utomated message] The = Eosinophils #) system whic h generated this result tra nsmitted reference range : <=0.5. The reference r henry was not used to int erpret this result as normal/abnormal . [facility] HospitalPxoitwqAMBNIYRVSG3298-41-17 09:14:00 Test Item Value Reference Range Interpretation Comments Basophils # (test code 0.1 See_Comment [Aut omated message] The = Basophils #) system which generated this result tra nsmitted reference range : <=0.2. The reference r henry was not used to int erpret this result as normal/abnormal . [facility] HospitalCrrrclgQCYKWVDQHF7295-59-55 09:14:00 Test Item Value Reference Range Interpretation Comments WBC (test code = WBC) 7.8 3.7-10.4 [facility] HospitalXjdscthGOHMQIBTVD4938-76-97 09:14:00 Test Item Value Reference Range Interpretation Comments RBC (test code = RBC) 5.66 4.20-5.40 [facility] HospitalSaqnidxJTXASPKEMY1280-75-63 09:14:00 Test Item Value Reference Range Interpretation Comments Hgb (test code = Hgb) 14.2 12.0-16.0 [facility] HospitalDlqodhfIYLLKYKUTJ7032-23-76 09:14:00 Test Item Value Reference Range Interpretation Comments Hgb (test code = Hgb) 14.2 12.0-16.0 [facility] HospitalLqjnoqwVWUUMQGOPB0354-07-55 09:14:00 Test Item Value Reference Range Interpretation Comments Hct (test code = Hct) 44.8 36.0-48.0 [facility] HospitalXsokycxDOAZXSXZXC3437-27-86 09:14:00 Test Item Value Reference Range Interpretation Comments MCV (test code = MCV) 79.2 80.0-98.0 [facility] HospitalJofxurvCLLXNIUIEF3149-40-60 09:14:00 Test Item Value Reference Range Interpretation Comments MCH (test code = MCH) 25.0 pg 27.0-31.0 [facility] HospitalQzfxtfgGSZDZDBRKU2540-52-49 09:14:00 Test Item Value Reference Range Interpretation Comments MCHC (test code = MCHC) 31.6 32.0-36.0 [facility] HospitalArisgpfRHZRNUTKGF2364-45-65 09:14:00 Test Item Value Reference Range Interpretation Comments RDW (test code = RDW) 17.9 11.5-14.5 [facility] HospitalVpbfprkKTCQINSPSB8403-85-02 09:14:00 Test Item Value Reference Range Interpretation Comments Platelet (test code = Platelet) 273 133-450 [facility] HospitalDantoddDMCCLYKRFJ5594-29-25 09:14:00 Test Item Value Reference Range Interpretation Comments MPV (test code = MPV) 8.3 7.4-10.4 [facility]2019-12-02 09:14:00 Test Item Value Reference Range Interpretation Comments Glucose Lvl (test code = Glucose Lvl) 182 70-99 [facility]2019-12-02 09:14:00 Test Item Value Reference Range Interpretation Comments BUN (test code = BUN) 61 7-22 [facility]2019-12-02 09:14:00 Test Item Value Reference Range Interpretation Comments Creatinine Lvl (test code = Creatinine 7.76 0.50-1.40 Lvl) [facility]2019-12-02 09:14:00 Test Item Value Reference Range Interpretation Comments Sodium Lvl (test code = Sodium Lvl) 137 135-145 [facility]2019-12-02 09:14:00 Test Item Value Reference Range Interpretation Comments Potassium Lvl (test code = Potassium 4.7 3.5-5.1 Lvl) [facility]2019-12-02 09:14:00 Test Item Value Reference Range Interpretation Comments Chloride Lvl (test code = Chloride Lvl) 102 95-109 [facility]2019-12-02 09:14:00 Test Item Value Reference Range Interpretation Comments CO2 (test code = CO2) 20 24-32 [facility]2019-12-02 09:14:00 Test Item Value Reference Range Interpretation Comments AGAP (test code = AGAP) 19.7 10.0-20.0 [facility]2019-12-02 09:14:00 Test Item Value Reference Range Interpretation Comments Calcium Lvl (test code = Calcium Lvl) 8.6 8.5-10.5 [facility]2019-12-02 09:14:00 Test Item Value Reference Range Interpretation Comments Albumin Lvl (test code = Albumin Lvl) 2.6 3.5-5.0 [facility]2019-12-02 09:14:00 Test Item Value Reference Range Interpretation Comments Phosphorus (test code = Phosphorus) 8.1 2.5-4.5 [facility]2019-12-02 09:14:00 Test Item Value Reference Range Interpretation Comments eGFR (test code = eGFR) 5 [facility] HospitalIrdlxksPGMMLMLUZW7048-86-53 09:14:00 Test Item Value Reference Range Interpretation Comments Segs (test code = Segs) 60.8 45.0-75.0 [facility] HospitalWenmlcqBVTTTEVSKG3790-46-42 09:14:00 Test Item Value Reference Range Interpretation Comments Lymphocytes (test code = Lymphocytes) 24.6 20.0-40.0 [facility] HospitalMzsgdcvDHPBUGQOVW5665-94-11 09:14:00 Test Item Value Reference Range Interpretation Comments Monocytes (test code = Monocytes) 8.0 2.0-12.0 [facility] HospitalNrkgwgzMNACTIWBFR8071-98-22 09:14:00 Test Item Value Reference Range Interpretation Comments Eosinophils (test code = Eosinophils) 5.3 <=4.0 [facility] HospitalNbxyucmXFFMBKMTUV1793-64-03 09:14:00 Test Item Value Reference Range Interpretation Comments Basophils (test code = Basophils) 1.3 <=1.0 [facility] HospitalFvxbhnfLDJHOVTOBR2561-24-90 09:14:00 Test Item Value Reference Range Interpretation Comments Neutrophils # (test code = Neutrophils 4.7 1.5-8.1 #) [facility] HospitalCcvlchdUYJTHVLPTD0732-72-59 09:14:00 Test Item Value Reference Range Interpretation Comments Lymphocytes # (test code = Lymphocytes 1.9 1.0-5.5 #) [facility] HospitalRezjyxnVMIEDXVBVJ6485-49-02 09:14:00 Test Item Value Reference Range Interpretation Comments Monocytes # (test code = Monocytes #) 0.6 <=0.8 [place] 455239-12-02 09:14:00 Test Item Value Reference Range Interpretation Comments Eosinophils # (test code = Eosinophils 0.4 <=0.5 #) [facility] HospitalGyrxpmuGQRYRUGQSV1471-84-26 09:14:00 Test Item Value Reference Range Interpretation Comments Basophils # (test code = Basophils #) 0.1 <=0.2 [facility] HospitalGnaivntEBDFANSPQW4433-31-40 09:14:00 Test Item Value Reference Range Interpretation Comments WBC (test code = WBC) 7.8 3.7-10.4 [facility] HospitalZsskgtzLBXKDBIUUM5395-47-72 09:14:00 Test Item Value Reference Range Interpretation Comments RBC (test code = RBC) 5.66 4.20-5.40 [facility]2019-12-01 09:51:00 Test Item Value Reference Range Interpretation Comments Glucose Lvl (test code = Glucose Lvl) 109 70- [facility]2019-12-01 09:51:00 Test Item Value Reference Range Interpretation Comments BUN (test code = BUN) 41 7- [facility]2019-12-01 09:51:00 Test Item Value Reference Range Interpretation Comments Creatinine Lvl (test code = Creatinine 6.29 0.50-1.40 Lvl) [facility]2019-12-01 09:51:00 Test Item Value Reference Range Interpretation Comments Sodium Lvl (test code = Sodium Lvl) 139 135-145 [facility]2019-12-01 09:51:00 Test Item Value Reference Range Interpretation Comments Potassium Lvl (test code = Potassium 5.2 3.5-5.1 Lvl) [facility]2019-12-01 09:51:00 Test Item Value Reference Range Interpretation Comments Chloride Lvl (test code = Chloride Lvl) 105 95-109 [facility]2019-12-01 09:51:00 Test Item Value Reference Range Interpretation Comments Glucose Lvl (test code = Glucose Lvl) 109 70-99 [facility]2019-12-01 09:51:00 Test Item Value Reference Range Interpretation Comments CO2 (test code = CO2) 22 24-32 [facility]2019-12-01 09:51:00 Test Item Value Reference Range Interpretation Comments BUN (test code = BUN) 41 7-22 [facility]2019-12-01 09:51:00 Test Item Value Reference Range Interpretation Comments Creatinine Lvl (test code = Creatinine 6.29 0.50-1.40 Lvl) [facility]2019-12-01 09:51:00 Test Item Value Reference Range Interpretation Comments Sodium Lvl (test code = Sodium Lvl) 139 135-145 [facility]2019-12-01 09:51:00 Test Item Value Reference Range Interpretation Comments Potassium Lvl (test code = Potassium 5.2 3.5-5.1 Lvl) [facility]2019-12-01 09:51:00 Test Item Value Reference Range Interpretation Comments Chloride Lvl (test code = Chloride Lvl) 105 95-109 [facility]2019-12-01 09:51:00 Test Item Value Reference Range Interpretation Comments CO2 (test code = CO2) 22 24-32 [facility]2019-12-01 09:51:00 Test Item Value Reference Range Interpretation Comments AGAP (test code = AGAP) 17.2 10.0-20.0 [facility]2019-12-01 09:51:00 Test Item Value Reference Range Interpretation Comments Calcium Lvl (test code = Calcium Lvl) 8.7 8.5-10.5 [facility]2019-12-01 09:51:00 Test Item Value Reference Range Interpretation Comments Albumin Lvl (test code = Albumin Lvl) 2.6 3.5-5.0 [facility]2019-12-01 09:51:00 Test Item Value Reference Range Interpretation Comments Phosphorus (test code = Phosphorus) 6.8 2.5-4.5 [facility]2019-12-01 09:51:00 Test Item Value Reference Range Interpretation Comments AGAP (test code = AGAP) 17.2 10.0-20.0 [facility]2019-12-01 09:51:00 Test Item Value Reference Range Interpretation Comments eGFR (test code = eGFR) 7 [facility] HospitalHjurtgqHZTVTWVACX5707-20-74 09:51:00 Test Item Value Reference Range Interpretation Comments WBC (test code = WBC) 8.8 3.7-10.4 [facility] HospitalHtvxzhfMTEMTDNPQQ0121-49-73 09:51:00 Test Item Value Reference Range Interpretation Comments RBC (test code = RBC) 5.60 4.20-5.40 [facility] HospitalInheyjnYQNFBFKWIG6180-36-08 09:51:00 Test Item Value Reference Range Interpretation Comments Hgb (test code = Hgb) 14.2 12.0-16.0 [facility] HospitalGzmwjgvSNPBHLYAWM4921-08-56 09:51:00 Test Item Value Reference Range Interpretation Comments Hct (test code = Hct) 44.6 36.0-48.0 [facility] HospitalHkolpsdDXXHNJSUZP3641-78-80 09:51:00 Test Item Value Reference Range Interpretation Comments MCV (test code = MCV) 79.6 80.0-98.0 [facility] HospitalRsdwgqzOIIJPGNHUI5227-05-25 09:51:00 Test Item Value Reference Range Interpretation Comments MCH (test code = MCH) 25.3 pg 27.0-31.0 [facility] HospitalZqxpqyjOVOFZJVWLD6996-78-77 09:51:00 Test Item Value Reference Range Interpretation Comments MCHC (test code = MCHC) 31.8 32.0-36.0 [facility] HospitalMjxphhnFDYXDTDHBE0150-92-41 09:51:00 Test Item Value Reference Range Interpretation Comments RDW (test code = RDW) 18.1 11.5-14.5 [facility] HospitalKtdfwxvHSKYSAJYLK2737-17-51 09:51:00 Test Item Value Reference Range Interpretation Comments Platelet (test code = Platelet) 261 133-450 [facility]2019-12-01 09:51:00 Test Item Value Reference Range Interpretation Comments Calcium Lvl (test code = Calcium Lvl) 8.7 8.5-10.5 [facility] HospitalYgflgxzYYIQDEILOK9258-01-25 09:51:00 Test Item Value Reference Range Interpretation Comments MPV (test code = MPV) 8.2 7.4-10.4 [facility] HospitalPdxqmztCETJBYFOVP8009-82-86 09:51:00 Test Item Value Reference Range Interpretation Comments Segs (test code = Segs) 62.4 45.0-75.0 [facility] HospitalXwcymwdTHMDRVGFBK3877-60-81 09:51:00 Test Item Value Reference Range Interpretation Comments Lymphocytes (test code = Lymphocytes) 21.0 20.0-40.0 [facility] HospitalKvmrkzgEVRLZELJKT1341-81-29 09:51:00 Test Item Value Reference Range Interpretation Comments Monocytes (test code = Monocytes) 10.8 2.0-12.0 [facility] HospitalCohvoebSPCKQZCYQN7937-02-65 09:51:00 Test Item Value Reference Range Interpretation Comments Eosinophils (test code = 4.1 See_Comment [A utomated message] The Eosinophils) system which ge nerated this result tra nsmitted reference range : <=4.0. The reference r henry was not used to int erpret this result as normal/abnormal . [facility] HospitalIkbqcceUAAAPXGEUU2750-62-48 09:51:00 Test Item Value Reference Range Interpretation Comments Basophils (test code = 1.7 See_Comment [Aut omated message] The Basophils) system which ge nerated this result tra nsmitted reference range : <=1.0. The reference r henry was not used to int erpret this result as normal/abnormal . [facility] HospitalCfebkamLRYBQANEZQ8326-91-52 09:51:00 Test Item Value Reference Range Interpretation Comments Neutrophils # (test code = Neutrophils 5.5 1.5-8.1 #) [facility] HospitalMjdppryMIRAAUWIGA3120-53-87 09:51:00 Test Item Value Reference Range Interpretation Comments Lymphocytes # (test code = Lymphocytes 1.9 1.0-5.5 #) [facility] HospitalLpfxvpcWNOAALJQJP4963-71-77 09:51:00 Test Item Value Reference Range Interpretation Comments Monocytes # (test code 1.0 See_Comment [Aut omated message] The = Monocytes #) system which generated this result tra nsmitted reference range : <=0.8. The reference r henry was not used to int erpret this result as normal/abnormal . [facility] HospitalGghfwscOYQSMUAAIU5509-88-64 09:51:00 Test Item Value Reference Range Interpretation Comments Eosinophils # (test code 0.4 See_Comment [A utomated message] The = Eosinophils #) system whic h generated this result tra nsmitted reference range : <=0.5. The reference r henry was not used to int erpret this result as normal/abnormal . [facility]2019-12-01 09:51:00 Test Item Value Reference Range Interpretation Comments Albumin Lvl (test code = Albumin Lvl) 2.6 3.5-5.0 [facility] HospitalGnqnkiyVFXIKXVMCZ3114-43-60 09:51:00 Test Item Value Reference Range Interpretation Comments Basophils # (test code 0.2 See_Comment [Aut omated message] The = Basophils #) system which generated this result tra nsmitted reference range : <=0.2. The reference r henry was not used to int erpret this result as normal/abnormal . [facility]2019-12-01 09:51:00 Test Item Value Reference Range Interpretation Comments Phosphorus (test code = Phosphorus) 6.8 2.5-4.5 [facility] OUFRV2098-91-72 09:51:00 Test Item Value Reference Range Interpretation Comments eGFR (test code = eGFR) 7 [facility] HospitalNvdzykwKHFSTLKQMV0821-32-48 09:51:00 Test Item Value Reference Range Interpretation Comments WBC (test code = WBC) 8.8 3.7-10.4 [facility] HospitalGnnewtySWNYGLBKLO2745-24-25 09:51:00 Test Item Value Reference Range Interpretation Comments RBC (test code = RBC) 5.60 4.20-5.40 [facility] HospitalOtuwaqgKTGSERNTDG2953-30-92 09:51:00 Test Item Value Reference Range Interpretation Comments Hgb (test code = Hgb) 14.2 12.0-16.0 [facility] HospitalDsqtfkcIZBLAXCUCZ2283-52-70 09:51:00 Test Item Value Reference Range Interpretation Comments Hct (test code = Hct) 44.6 36.0-48.0 [facility] HospitalKbhrqnbGFGFNDFBXA1086-46-16 09:51:00 Test Item Value Reference Range Interpretation Comments MCV (test code = MCV) 79.6 80.0-98.0 [facility] HospitalFkftynkJFJJJCNYYG7726-07-89 09:51:00 Test Item Value Reference Range Interpretation Comments MCH (test code = MCH) 25.3 pg 27.0-31.0 [facility] HospitalNtubsuiUBSLKXZSTL9972-43-92 09:51:00 Test Item Value Reference Range Interpretation Comments MCHC (test code = MCHC) 31.8 32.0-36.0 [facility] HospitalAstuddlVAJZFPSLHM3035-81-95 09:51:00 Test Item Value Reference Range Interpretation Comments RDW (test code = RDW) 18.1 11.5-14.5 [facility] HospitalQdsvaepPPMHUIFSZW7573-02-81 09:51:00 Test Item Value Reference Range Interpretation Comments Platelet (test code = Platelet) 261 133-450 [facility] HospitalEmkgfpiVFIKHQYXUP3306-56-56 09:51:00 Test Item Value Reference Range Interpretation Comments MPV (test code = MPV) 8.2 7.4-10.4 [facility] HospitalNjygbfeQDXMOZSSHP3032-89-27 09:51:00 Test Item Value Reference Range Interpretation Comments Segs (test code = Segs) 62.4 45.0-75.0 [facility] HospitalVafbocgASSXOZLCUJ9737-85-56 09:51:00 Test Item Value Reference Range Interpretation Comments Lymphocytes (test code = Lymphocytes) 21.0 20.0-40.0 [facility] HospitalWpasziqWBUYGQETVR4501-08-81 09:51:00 Test Item Value Reference Range Interpretation Comments Monocytes (test code = Monocytes) 10.8 2.0-12.0 [facility] HospitalHczrrvcCEULQPXOXQ1339-65-76 09:51:00 Test Item Value Reference Range Interpretation Comments Eosinophils (test code = 4.1 See_Comment [A utomated message] The Eosinophils) system which ge nerated this result tra nsmitted reference range : <=4.0. The reference r henry was not used to int erpret this result as normal/abnormal . [facility] HospitalHoibzhqVOMOVKVTQP4751-72-40 09:51:00 Test Item Value Reference Range Interpretation Comments Basophils (test code = 1.7 See_Comment [Aut omated message] The Basophils) system which ge nerated this result tra nsmitted reference range : <=1.0. The reference r henry was not used to int erpret this result as normal/abnormal . [facility]2019-12-01 09:51:00 Test Item Value Reference Range Interpretation Comments Glucose Lvl (test code = Glucose Lvl) 109 70-99 [facility]2019-12-01 09:51:00 Test Item Value Reference Range Interpretation Comments BUN (test code = BUN) 41 7-22 [facility]2019-12-01 09:51:00 Test Item Value Reference Range Interpretation Comments Creatinine Lvl (test code = Creatinine 6.29 0.50-1.40 Lvl) [facility]2019-12-01 09:51:00 Test Item Value Reference Range Interpretation Comments Sodium Lvl (test code = Sodium Lvl) 139 135-145 [facility]2019-12-01 09:51:00 Test Item Value Reference Range Interpretation Comments Potassium Lvl (test code = Potassium 5.2 3.5-5.1 Lvl) [facility]2019-12-01 09:51:00 Test Item Value Reference Range Interpretation Comments Chloride Lvl (test code = Chloride Lvl) 105 95-109 [facility]2019-12-01 09:51:00 Test Item Value Reference Range Interpretation Comments CO2 (test code = CO2) 22 24-32 [facility]2019-12-01 09:51:00 Test Item Value Reference Range Interpretation Comments AGAP (test code = AGAP) 17.2 10.0-20.0 [facility]2019-12-01 09:51:00 Test Item Value Reference Range Interpretation Comments Calcium Lvl (test code = Calcium Lvl) 8.7 8.5-10.5 [facility]2019-12-01 09:51:00 Test Item Value Reference Range Interpretation Comments Albumin Lvl (test code = Albumin Lvl) 2.6 3.5-5.0 [facility] HospitalDwlsnauQZMEDSZDYO1449-05-50 09:51:00 Test Item Value Reference Range Interpretation Comments Neutrophils # (test code = Neutrophils 5.5 1.5-8.1 #) [facility]2019-12-01 09:51:00 Test Item Value Reference Range Interpretation Comments Phosphorus (test code = Phosphorus) 6.8 2.5-4.5 [facility]2019-12-01 09:51:00 Test Item Value Reference Range Interpretation Comments eGFR (test code = eGFR) 7 [facility] HospitalItzzfbkATXQIXQJSS7109-48-23 09:51:00 Test Item Value Reference Range Interpretation Comments WBC (test code = WBC) 8.8 3.7-10.4 [facility] HospitalIzknopaBRKUBENFEQ0213-17-69 09:51:00 Test Item Value Reference Range Interpretation Comments RBC (test code = RBC) 5.60 4.20-5.40 [facility] HospitalDmzfejcPLNWDSDWPM6621-03-16 09:51:00 Test Item Value Reference Range Interpretation Comments Hgb (test code = Hgb) 14.2 12.0-16.0 [facility] HospitalUdczdumJJMLDEZNGM8238-46-23 09:51:00 Test Item Value Reference Range Interpretation Comments Hct (test code = Hct) 44.6 36.0-48.0 [facility] HospitalAgvpfbyLYBOOJSMIX5589-60-07 09:51:00 Test Item Value Reference Range Interpretation Comments MCV (test code = MCV) 79.6 80.0-98.0 [facility] HospitalHkbniwjNNYQRAHAUS0129-66-93 09:51:00 Test Item Value Reference Range Interpretation Comments MCH (test code = MCH) 25.3 pg 27.0-31.0 [facility] HospitalRigcnboRLYWLQQRAY1509-01-15 09:51:00 Test Item Value Reference Range Interpretation Comments MCHC (test code = MCHC) 31.8 32.0-36.0 [facility] HospitalJsngjdoDJDPTOVNPK9790-50-60 09:51:00 Test Item Value Reference Range Interpretation Comments RDW (test code = RDW) 18.1 11.5-14.5 [facility] HospitalWljhmjzOMCWJXZVFB6721-13-55 09:51:00 Test Item Value Reference Range Interpretation Comments Lymphocytes # (test code = Lymphocytes 1.9 1.0-5.5 #) [facility]EasxvgvJTDLVXLQQP5907-10-07 09:51:00 Test Item Value Reference Range Interpretation Comments Platelet (test code = Platelet) 261 133-450 [facility] HospitalSxanausPZSXLMHYQD2819-43-16 09:51:00 Test Item Value Reference Range Interpretation Comments MPV (test code = MPV) 8.2 7.4-10.4 [facility] HospitalHmbcpfrPLTYOCDMYR0335-26-77 09:51:00 Test Item Value Reference Range Interpretation Comments Segs (test code = Segs) 62.4 45.0-75.0 [facility] HospitalIquvrjbFEMAXOMKCF3654-28-82 09:51:00 Test Item Value Reference Range Interpretation Comments Lymphocytes (test code = Lymphocytes) 21.0 20.0-40.0 [facility] HospitalLyfjafmNGNLECAYKE2975-81-53 09:51:00 Test Item Value Reference Range Interpretation Comments Monocytes (test code = Monocytes) 10.8 2.0-12.0 [facility] HospitalKgrcgmmZMGABWRXVR6735-51-86 09:51:00 Test Item Value Reference Range Interpretation Comments Eosinophils (test code = 4.1 See_Comment [A utomated message] The Eosinophils) system which ge nerated this result tra nsmitted reference range : <=4.0. The reference r henry was not used to int erpret this result as normal/abnormal . [facility] HospitalOlkwfoqQYXWVSDURW6207-20-53 09:51:00 Test Item Value Reference Range Interpretation Comments Basophils (test code = 1.7 See_Comment [Aut omated message] The Basophils) system which ge nerated this result tra nsmitted reference range : <=1.0. The reference r henry was not used to int erpret this result as normal/abnormal . [facility] HospitalFbjkhtnMLWFEHZLAX8187-59-49 09:51:00 Test Item Value Reference Range Interpretation Comments Neutrophils # (test code = Neutrophils 5.5 1.5-8.1 #) [facility] HospitalPxhgabmGGYLPXTYNI0430-73-59 09:51:00 Test Item Value Reference Range Interpretation Comments Lymphocytes # (test code = Lymphocytes 1.9 1.0-5.5 #) [facility] HospitalPkwqgujXVNDSIUHDC3996-08-42 09:51:00 Test Item Value Reference Range Interpretation Comments Monocytes # (test code 1.0 See_Comment [Aut omated message] The = Monocytes #) system which generated this result tra nsmitted reference range : <=0.8. The reference r henry was not used to int erpret this result as normal/abnormal . [facility] HospitalBatjhvgLGKDUWKJRW7792-25-71 09:51:00 Test Item Value Reference Range Interpretation Comments Monocytes # (test code 1.0 See_Comment [Aut omated message] The = Monocytes #) system which generated this result tra nsmitted reference range : <=0.8. The reference r henry was not used to int erpret this result as normal/abnormal . [facility] HospitalIufomdyUVRHVNVXXK7866-47-83 09:51:00 Test Item Value Reference Range Interpretation Comments Eosinophils # (test code 0.4 See_Comment [A utomated message] The = Eosinophils #) system [facility] h generated this result tra nsmitted reference range : <=0.5. The reference r henry was not used to int erpret this result as normal/abnormal . [facility] HospitalLvldntwJJKMFSNAEN5802-42-61 09:51:00 Test Item Value Reference Range Interpretation Comments Basophils # (test code 0.2 See_Comment [Aut omated message] The = Basophils #) system which generated this result tra nsmitted reference range : <=0.2. The reference r henry was not used to int erpret this result as normal/abnormal . [facility] HospitalIupjioaYPBLUCRIMG1280-90-47 09:51:00 Test Item Value Reference Range Interpretation Comments Eosinophils # (test code 0.4 See_Comment [A utomated message] The = Eosinophils #) system whic h generated this result tra nsmitted reference range : <=0.5. The reference r henry was not used to int erpret this result as normal/abnormal . [facility] HospitalVyeavwdPBKFQHAUQL8406-08-45 09:51:00 Test Item Value Reference Range Interpretation Comments Basophils # (test code 0.2 See_Comment [Aut omated message] The = Basophils #) system which generated this result tra nsmitted reference range : <=0.2. The reference r henry was not used to int erpret this result as normal/abnormal . [facility]2019-12-01 09:51:00 Test Item Value Reference Range Interpretation Comments Glucose Lvl (test code = Glucose Lvl) 109 70-99 [facility]2019-12-01 09:51:00 Test Item Value Reference Range Interpretation Comments BUN (test code = BUN) 41 7-22 [facility]2019-12-01 09:51:00 Test Item Value Reference Range Interpretation Comments Creatinine Lvl (test code = Creatinine 6.29 0.50-1.40 Lvl) [facility]2019-12-01 09:51:00 Test Item Value Reference Range Interpretation Comments Sodium Lvl (test code = Sodium Lvl) 139 135-145 [facility]2019-12-01 09:51:00 Test Item Value Reference Range Interpretation Comments Potassium Lvl (test code = Potassium 5.2 3.5-5.1 Lvl) [facility]2019-12-01 09:51:00 Test Item Value Reference Range Interpretation Comments Chloride Lvl (test code = Chloride Lvl) 105 95-109 [facility]2019-12-01 09:51:00 Test Item Value Reference Range Interpretation Comments CO2 (test code = CO2) 22 24-32 [facility]2019-12-01 09:51:00 Test Item Value Reference Range Interpretation Comments AGAP (test code = AGAP) 17.2 10.0-20.0 [facility]2019-12-01 09:51:00 Test Item Value Reference Range Interpretation Comments Calcium Lvl (test code = Calcium Lvl) 8.7 8.5-10.5 [facility]2019-12-01 09:51:00 Test Item Value Reference Range Interpretation Comments Albumin Lvl (test code = Albumin Lvl) 2.6 3.5-5.0 [facility]2019-12-01 09:51:00 Test Item Value Reference Range Interpretation Comments Phosphorus (test code = Phosphorus) 6.8 2.5-4.5 [facility]2019-12-01 09:51:00 Test Item Value Reference Range Interpretation Comments eGFR (test code = eGFR) 7 [facility] HospitalWstbucyAGEZGGMTCW9628-18-67 09:51:00 Test Item Value Reference Range Interpretation Comments WBC (test code = WBC) 8.8 3.7-10.4 [facility] HospitalFiojpowODWLRRUSFM5587-55-22 09:51:00 Test Item Value Reference Range Interpretation Comments RBC (test code = RBC) 5.60 4.20-5.40 [facility] HospitalLuslhasDJRZDOFPKG0976-27-33 09:51:00 Test Item Value Reference Range Interpretation Comments Hgb (test code = Hgb) 14.2 12.0-16.0 [facility] HospitalJflugnbEGOAMYFXKM8178-97-40 09:51:00 Test Item Value Reference Range Interpretation Comments Hct (test code = Hct) 44.6 36.0-48.0 [facility] HospitalJolmkjpKNGABCSERG3322-83-16 09:51:00 Test Item Value Reference Range Interpretation Comments MCV (test code = MCV) 79.6 80.0-98.0 [facility] HospitalNascmofMMSTPOTQJL0149-57-60 09:51:00 Test Item Value Reference Range Interpretation Comments MCH (test code = MCH) 25.3 pg 27.0-31.0 [facility] HospitalQnggvfgIBASESQRZG2211-27-11 09:51:00 Test Item Value Reference Range Interpretation Comments MCHC (test code = MCHC) 31.8 32.0-36.0 [facility] HospitalUsmslirYQUPGLBTEK2424-02-63 09:51:00 Test Item Value Reference Range Interpretation Comments RDW (test code = RDW) 18.1 11.5-14.5 [facility] HospitalOzjzyzkHNWOLGOOWT6486-43-91 09:51:00 Test Item Value Reference Range Interpretation Comments Platelet (test code = Platelet) 261 133-450 [facility] HospitalJkskqyzRJGAKELUFD0430-08-25 09:51:00 Test Item Value Reference Range Interpretation Comments MPV (test code = MPV) 8.2 7.4-10.4 [facility] HospitalLrdvgjbRWKEGKKCLS6368-73-99 09:51:00 Test Item Value Reference Range Interpretation Comments Segs (test code = Segs) 62.4 45.0-75.0 [facility] HospitalMkftrusRCGGSCXKTQ8356-28-10 09:51:00 Test Item Value Reference Range Interpretation Comments Lymphocytes (test code = Lymphocytes) 21.0 20.0-40.0 [facility] HospitalPcmaejxUKFBPPUYNT8892-59-27 09:51:00 Test Item Value Reference Range Interpretation Comments Monocytes (test code = Monocytes) 10.8 2.0-12.0 [facility] HospitalMmjdpnqNHDZJYIPNV2439-25-36 09:51:00 Test Item Value Reference Range Interpretation Comments Eosinophils (test code = 4.1 See_Comment [A utomated message] The Eosinophils) system which ge nerated this result tra nsmitted reference range : <=4.0. The reference r henry was not used to int erpret this result as normal/abnormal . [facility] HospitalLtuvchwLZCQITUYEA9588-14-02 09:51:00 Test Item Value Reference Range Interpretation Comments Basophils (test code = 1.7 See_Comment [Aut omated message] The Basophils) system which ge nerated this result tra nsmitted reference range : <=1.0. The reference r henry was not used to int erpret this result as normal/abnormal . [facility] HospitalNwflokfAQFNGTBDIP2819-69-81 09:51:00 Test Item Value Reference Range Interpretation Comments Neutrophils # (test code = Neutrophils 5.5 1.5-8.1 #) [facility] HospitalPfcyvkyTRXWABBHBS9100-51-70 09:51:00 Test Item Value Reference Range Interpretation Comments Lymphocytes # (test code = Lymphocytes 1.9 1.0-5.5 #) [facility] HospitalGnfvnddQAGZPFUJSM1606-00-25 09:51:00 Test Item Value Reference Range Interpretation Comments Monocytes # (test code 1.0 See_Comment [Aut omated message] The = Monocytes #) system which generated this result tra nsmitted reference range : <=0.8. The reference r henry was not used to int erpret this result as normal/abnormal . [facility] HospitalDxmwcasNJRCOAHPBU7576-29-15 09:51:00 Test Item Value Reference Range Interpretation Comments Eosinophils # (test code 0.4 See_Comment [A utomated message] The = Eosinophils #) system whic h generated this result tra nsmitted reference range : <=0.5. The reference r henry was not used to int erpret this result as normal/abnormal . [facility] HospitalEqajmecDWBDXMSOVG3533-54-38 09:51:00 Test Item Value Reference Range Interpretation Comments Basophils # (test code 0.2 See_Comment [Aut omated message] The = Basophils #) system which generated this result tra nsmitted reference range : <=0.2. The reference r henry was not used to int erpret this result as normal/abnormal . [facility]2019-12-01 09:51:00 Test Item Value Reference Range Interpretation Comments Glucose Lvl (test code = Glucose Lvl) 109 70-99 [facility]2019-12-01 09:51:00 Test Item Value Reference Range Interpretation Comments BUN (test code = BUN) 41 7-22 [facility]2019-12-01 09:51:00 Test Item Value Reference Range Interpretation Comments Creatinine Lvl (test code = Creatinine 6.29 0.50-1.40 Lvl) [facility]2019-12-01 09:51:00 Test Item Value Reference Range Interpretation Comments Sodium Lvl (test code = Sodium Lvl) 139 135-145 [facility]2019-12-01 09:51:00 Test Item Value Reference Range Interpretation Comments Potassium Lvl (test code = Potassium 5.2 3.5-5.1 Lvl) [facility]2019-12-01 09:51:00 Test Item Value Reference Range Interpretation Comments Chloride Lvl (test code = Chloride Lvl) 105 95-109 [facility]2019-12-01 09:51:00 Test Item Value Reference Range Interpretation Comments CO2 (test code = CO2) 22 24-32 [facility]2019-12-01 09:51:00 Test Item Value Reference Range Interpretation Comments AGAP (test code = AGAP) 17.2 10.0-20.0 [facility]2019-12-01 09:51:00 Test Item Value Reference Range Interpretation Comments Calcium Lvl (test code = Calcium Lvl) 8.7 8.5-10.5 [facility]2019-12-01 09:51:00 Test Item Value Reference Range Interpretation Comments Albumin Lvl (test code = Albumin Lvl) 2.6 3.5-5.0 [facility]2019-12-01 09:51:00 Test Item Value Reference Range Interpretation Comments Phosphorus (test code = Phosphorus) 6.8 2.5-4.5 [facility]2019-12-01 09:51:00 Test Item Value Reference Range Interpretation Comments eGFR (test code = eGFR) 7 [facility] HospitalKgezyxaASPYQBBEQC4762-90-96 09:51:00 Test Item Value Reference Range Interpretation Comments WBC (test code = WBC) 8.8 3.7-10.4 [facility] HospitalVapofzaMYNFQBZNAG6368-27-36 09:51:00 Test Item Value Reference Range Interpretation Comments RBC (test code = RBC) 5.60 4.20-5.40 [facility] HospitalKlkjbzlNKDCMMYETX8304-86-43 09:51:00 Test Item Value Reference Range Interpretation Comments Hgb (test code = Hgb) 14.2 12.0-16.0 [facility] HospitalUixanclHSSJPWNIXG3515-58-61 09:51:00 Test Item Value Reference Range Interpretation Comments Hct (test code = Hct) 44.6 36.0-48.0 [facility] HospitalWigeqsgMTVWMHYUAA8781-81-48 09:51:00 Test Item Value Reference Range Interpretation Comments MCV (test code = MCV) 79.6 80.0-98.0 [facility] HospitalSwbimiqEVBRKGIIVR4498-97-42 09:51:00 Test Item Value Reference Range Interpretation Comments MCH (test code = MCH) 25.3 pg 27.0-31.0 [facility] HospitalTgreeaxTNQUBQKUMD3771-77-38 09:51:00 Test Item Value Reference Range Interpretation Comments MCHC (test code = MCHC) 31.8 32.0-36.0 [facility] HospitalPujltkqSWFAFWQRFK9587-27-48 09:51:00 Test Item Value Reference Range Interpretation Comments RDW (test code = RDW) 18.1 11.5-14.5 [facility] HospitalQbnxraqJHGSNDSFDR5160-39-65 09:51:00 Test Item Value Reference Range Interpretation Comments Platelet (test code = Platelet) 261 133-450 [facility] HospitalTonbaqvFKGVHMCAXD3297-91-65 09:51:00 Test Item Value Reference Range Interpretation Comments MPV (test code = MPV) 8.2 7.4-10.4 [facility] HospitalAmlkwkyKTNGAUMSWI9869-47-20 09:51:00 Test Item Value Reference Range Interpretation Comments Segs (test code = Segs) 62.4 45.0-75.0 [facility] HospitalYlxwsqkOWEXCVHGOK6987-90-71 09:51:00 Test Item Value Reference Range Interpretation Comments Lymphocytes (test code = Lymphocytes) 21.0 20.0-40.0 [facility] HospitalWzwqqxkTMWXDTIQPS5906-25-72 09:51:00 Test Item Value Reference Range Interpretation Comments Monocytes (test code = Monocytes) 10.8 2.0-12.0 [facility] HospitalHrnnwngNBLDJGXQDE7415-89-01 09:51:00 Test Item Value Reference Range Interpretation Comments Eosinophils (test code = 4.1 See_Comment [A utomated message] The Eosinophils) system which ge nerated this result tra nsmitted reference range : <=4.0. The reference r henry was not used to int erpret this result as normal/abnormal . [facility] HospitalLfqnwyqFSCFTFYTKX6606-42-91 09:51:00 Test Item Value Reference Range Interpretation Comments Basophils (test code = 1.7 See_Comment [Aut omated message] The Basophils) system which ge nerated this result tra nsmitted reference range : <=1.0. The reference r henry was not used to int erpret this result as normal/abnormal . [facility] HospitalRepysdnPUVNQZHUIG8906-84-52 09:51:00 Test Item Value Reference Range Interpretation Comments Neutrophils # (test code = Neutrophils 5.5 1.5-8.1 #) [facility] HospitalFutseagFBOFONYIKC7510-48-41 09:51:00 Test Item Value Reference Range Interpretation Comments Lymphocytes # (test code = Lymphocytes 1.9 1.0-5.5 #) [facility] HospitalYzcsqrgEGBBLFFBHV7823-40-16 09:51:00 Test Item Value Reference Range Interpretation Comments Monocytes # (test code 1.0 See_Comment [Aut omated message] The = Monocytes #) system which generated this result tra nsmitted reference range : <=0.8. The reference r henry was not used to int erpret this result as normal/abnormal . [facility] HospitalFowuqycUSFSGRZXJE6977-79-85 09:51:00 Test Item Value Reference Range Interpretation Comments Eosinophils # (test code 0.4 See_Comment [A utomated message] The = Eosinophils #) system whic h generated this result tra nsmitted reference range : <=0.5. The reference r henry was not used to int erpret this result as normal/abnormal . [facility]UobbbzaYQVBDPEHKP1000-87-56 09:51:00 Test Item Value Reference Range Interpretation Comments Basophils # (test code 0.2 See_Comment [Aut omated message] The = Basophils #) system which generated this result tra nsmitted reference range : <=0.2. The reference r henry was not used to int erpret this result as normal/abnormal . [facility]2019-12-01 09:51:00 Test Item Value Reference Range Interpretation Comments Glucose Lvl (test code = Glucose Lvl) 109 70-99 [facility]2019-12-01 09:51:00 Test Item Value Reference Range Interpretation Comments BUN (test code = BUN) 41 7-22 [facility]2019-12-01 09:51:00 Test Item Value Reference Range Interpretation Comments Creatinine Lvl (test code = Creatinine 6.29 0.50-1.40 Lvl) [facility]2019-12-01 09:51:00 Test Item Value Reference Range Interpretation Comments Sodium Lvl (test code = Sodium Lvl) 139 135-145 [facility]2019-12-01 09:51:00 Test Item Value Reference Range Interpretation Comments Potassium Lvl (test code = Potassium 5.2 3.5-5.1 Lvl) [facility]2019-12-01 09:51:00 Test Item Value Reference Range Interpretation Comments Chloride Lvl (test code = Chloride Lvl) 105 95-109 [facility]2019-12-01 09:51:00 Test Item Value Reference Range Interpretation Comments CO2 (test code = CO2) 22 24-32 [facility]2019-12-01 09:51:00 Test Item Value Reference Range Interpretation Comments AGAP (test code = AGAP) 17.2 10.0-20.0 [facility]2019-12-01 09:51:00 Test Item Value Reference Range Interpretation Comments Calcium Lvl (test code = Calcium Lvl) 8.7 8.5-10.5 [facility]2019-12-01 09:51:00 Test Item Value Reference Range Interpretation Comments Albumin Lvl (test code = Albumin Lvl) 2.6 3.5-5.0 [facility]2019-12-01 09:51:00 Test Item Value Reference Range Interpretation Comments Phosphorus (test code = Phosphorus) 6.8 2.5-4.5 [facility] XGVIE4796-24-22 09:51:00 Test Item Value Reference Range Interpretation Comments eGFR (test code = eGFR) 7 [facility] HospitalQrknwuiIWIVSQTNDW8927-11-58 09:51:00 Test Item Value Reference Range Interpretation Comments WBC (test code = WBC) 8.8 3.7-10.4 [facility] HospitalSfktoquQVCMAALHCJ6056-87-22 09:51:00 Test Item Value Reference Range Interpretation Comments RBC (test code = RBC) 5.60 4.20-5.40 [facility] HospitalDisurqvNBEXCYBOOG4779-31-49 09:51:00 Test Item Value Reference Range Interpretation Comments Hgb (test code = Hgb) 14.2 12.0-16.0 [facility] HospitalBhoqkasBLDUILKNUC0494-01-22 09:51:00 Test Item Value Reference Range Interpretation Comments Hct (test code = Hct) 44.6 36.0-48.0 [facility] HospitalOekfglaADLDTWFRYC9707-69-29 09:51:00 Test Item Value Reference Range Interpretation Comments MCV (test code = MCV) 79.6 80.0-98.0 [facility] HospitalLtdvvwvEVROAINDZC2962-16-20 09:51:00 Test Item Value Reference Range Interpretation Comments MCH (test code = MCH) 25.3 pg 27.0-31.0 [facility] HospitalYchanhqORTTAPFSUS5543-82-97 09:51:00 Test Item Value Reference Range Interpretation Comments MCHC (test code = MCHC) 31.8 32.0-36.0 [facility] HospitalUqgepeeNNPULUXCCY4890-17-88 09:51:00 Test Item Value Reference Range Interpretation Comments RDW (test code = RDW) 18.1 11.5-14.5 [facility] HospitalTjpeznoPBDVYNOYRG1482-80-63 09:51:00 Test Item Value Reference Range Interpretation Comments Platelet (test code = Platelet) 261 133-450 [facility] HospitalZvfjddoLYYZHSMADG9439-02-94 09:51:00 Test Item Value Reference Range Interpretation Comments MPV (test code = MPV) 8.2 7.4-10.4 [facility] HospitalYwpbgyuERIGFYUYYP9441-93-91 09:51:00 Test Item Value Reference Range Interpretation Comments Segs (test code = Segs) 62.4 45.0-75.0 [facility] HospitalBscpnsaBPBNFKUYWN2305-27-99 09:51:00 Test Item Value Reference Range Interpretation Comments Lymphocytes (test code = Lymphocytes) 21.0 20.0-40.0 [facility] HospitalQkgppccISAWIDBCUM5203-16-36 09:51:00 Test Item Value Reference Range Interpretation Comments Monocytes (test code = Monocytes) 10.8 2.0-12.0 [facility] HospitalDaduabsXBOWYHUCBB9148-20-89 09:51:00 Test Item Value Reference Range Interpretation Comments Eosinophils (test code = 4.1 See_Comment [A utomated message] The Eosinophils) system which ge nerated this result tra nsmitted reference range : <=4.0. The reference r henry was not used to int erpret this result as normal/abnormal . [facility] HospitalAfdzdhjUQTQAJAEHL5394-42-20 09:51:00 Test Item Value Reference Range Interpretation Comments Basophils (test code = 1.7 See_Comment [Aut omated message] The Basophils) system which ge nerated this result tra nsmitted reference range : <=1.0. The reference r henry was not used to int erpret this result as normal/abnormal . [facility] HospitalAboxavaCEHLPBMJGB0479-77-25 09:51:00 Test Item Value Reference Range Interpretation Comments Neutrophils # (test code = Neutrophils 5.5 1.5-8.1 #) [facility] HospitalOlgxuotZFPIGMWLVA8559-20-89 09:51:00 Test Item Value Reference Range Interpretation Comments Lymphocytes # (test code = Lymphocytes 1.9 1.0-5.5 #) [facility] HospitalTsrndodTPECNHLQPR8088-84-36 09:51:00 Test Item Value Reference Range Interpretation Comments Monocytes # (test code 1.0 See_Comment [Aut omated message] The = Monocytes #) system which generated this result tra nsmitted reference range : <=0.8. The reference r henry was not used to int erpret this result as normal/abnormal . [facility] HospitalPvsdzikVMAYAHCJYU9359-66-65 09:51:00 Test Item Value Reference Range Interpretation Comments Eosinophils # (test code 0.4 See_Comment [A utomated message] The = Eosinophils #) system wh h generated this result tra nsmitted reference range : <=0.5. The reference r henry was not used to int erpret this result as normal/abnormal . [facility]WworrkgCUBCHMCINO9424-74-07 09:51:00 Test Item Value Reference Range Interpretation Comments Basophils # (test code 0.2 See_Comment [Aut omated message] The = Basophils #) system which generated this result tra nsmitted reference range : <=0.2. The reference r henry was not used to int erpret this result as normal/abnormal . [facility]2019-12-01 09:51:00 Test Item Value Reference Range Interpretation Comments Glucose Lvl (test code = Glucose Lvl) 109 70-99 [facility]2019-12-01 09:51:00 Test Item Value Reference Range Interpretation Comments BUN (test code = BUN) 41 7-22 [facility]2019-12-01 09:51:00 Test Item Value Reference Range Interpretation Comments Creatinine Lvl (test code = Creatinine 6.29 0.50-1.40 Lvl) [facility]2019-12-01 09:51:00 Test Item Value Reference Range Interpretation Comments Sodium Lvl (test code = Sodium Lvl) 139 135-145 [facility]2019-12-01 09:51:00 Test Item Value Reference Range Interpretation Comments Potassium Lvl (test code = Potassium 5.2 3.5-5.1 Lvl) [facility]2019-12-01 09:51:00 Test Item Value Reference Range Interpretation Comments Chloride Lvl (test code = Chloride Lvl) 105 95-109 [facility]2019-12-01 09:51:00 Test Item Value Reference Range Interpretation Comments CO2 (test code = CO2) 22 24-32 [facility]2019-12-01 09:51:00 Test Item Value Reference Range Interpretation Comments AGAP (test code = AGAP) 17.2 10.0-20.0 [facility]2019-12-01 09:51:00 Test Item Value Reference Range Interpretation Comments Calcium Lvl (test code = Calcium Lvl) 8.7 8.5-10.5 [facility]2019-12-01 09:51:00 Test Item Value Reference Range Interpretation Comments Albumin Lvl (test code = Albumin Lvl) 2.6 3.5-5.0 [facility]2019-12-01 09:51:00 Test Item Value Reference Range Interpretation Comments Phosphorus (test code = Phosphorus) 6.8 2.5-4.5 [facility] [id number] 09:51:00 Test Item Value Reference Range Interpretation Comments eGFR (test code = eGFR) 7 [facility]rxwvhnWKOWVVBTSE7457-70-05 09:51:00 Test Item Value Reference Range Interpretation Comments WBC (test code = WBC) 8.8 3.7-10.4 [facility]ZunuhoaRQRQVIEFAF4356-66-73 09:51:00 Test Item Value Reference Range Interpretation Comments RBC (test code = RBC) 5.60 4.20-5.40 [facility] HospitalKcurknzANYIYAVGTP3283-72-44 09:51:00 Test Item Value Reference Range Interpretation Comments Hgb (test code = Hgb) 14.2 12.0-16.0 [facility] HospitalDelnbxsGPVYDMXKSR8179-10-01 09:51:00 Test Item Value Reference Range Interpretation Comments Hct (test code = Hct) 44.6 36.0-48.0 [facility] HospitalMqgawdsSCBOKNGGYK9859-86-47 09:51:00 Test Item Value Reference Range Interpretation Comments MCV (test code = MCV) 79.6 80.0-98.0 [facility] HospitalIkkzgnhESSROFVDSL2908-95-48 09:51:00 Test Item Value Reference Range Interpretation Comments MCH (test code = MCH) 25.3 pg 27.0-31.0 [facility] HospitalWynlvhrPPASXSMBTT1940-84-02 09:51:00 Test Item Value Reference Range Interpretation Comments MCHC (test code = MCHC) 31.8 32.0-36.0 [facility] HospitalIclhjwpZEEVPASMQP2790-04-05 09:51:00 Test Item Value Reference Range Interpretation Comments RDW (test code = RDW) 18.1 11.5-14.5 [facility] HospitalMflhiiiJVQTNHWOUS8929-97-45 09:51:00 Test Item Value Reference Range Interpretation Comments Platelet (test code = Platelet) 261 133-450 [facility] HospitalOqbjcgrMINTZSJMLY4302-80-18 09:51:00 Test Item Value Reference Range Interpretation Comments MPV (test code = MPV) 8.2 7.4-10.4 [facility] HospitalYvoufinUKJDXVOFAQ5801-01-45 09:51:00 Test Item Value Reference Range Interpretation Comments Segs (test code = Segs) 62.4 45.0-75.0 [facility] HospitalAxfbyfuXYAFDOLWJD9501-21-70 09:51:00 Test Item Value Reference Range Interpretation Comments Lymphocytes (test code = Lymphocytes) 21.0 20.0-40.0 [facility] HospitalNcdoppzVMLPNCSQNY8277-02-95 09:51:00 Test Item Value Reference Range Interpretation Comments Monocytes (test code = Monocytes) 10.8 2.0-12.0 [facility] HospitalYnivsedXFGVZAVEXN9258-80-03 09:51:00 Test Item Value Reference Range Interpretation Comments Eosinophils (test code = 4.1 See_Comment [A utomated message] The Eosinophils) system which ge nerated this result tra nsmitted reference range : <=4.0. The reference r henry was not used to int erpret this result as normal/abnormal . [facility] HospitalTlxojtuMTNIGHWRQJ3628-94-07 09:51:00 Test Item Value Reference Range Interpretation Comments Basophils (test code = 1.7 See_Comment [Aut omated message] The Basophils) system which ge nerated this result tra nsmitted reference range : <=1.0. The reference r henry was not used to int erpret this result as normal/abnormal . [facility] HospitalXbhjnzlPMZZAAISHO6867-31-08 09:51:00 Test Item Value Reference Range Interpretation Comments Neutrophils # (test code = Neutrophils 5.5 1.5-8.1 #) [facility] HospitalDbsgxgfHGXDBTIVBN8965-26-55 09:51:00 Test Item Value Reference Range Interpretation Comments Lymphocytes # (test code = Lymphocytes 1.9 1.0-5.5 #) [facility] HospitalFaucjinCGTDSJHFXS5807-82-60 09:51:00 Test Item Value Reference Range Interpretation Comments Monocytes # (test code 1.0 See_Comment [Aut omated message] The = Monocytes #) system which generated this result tra nsmitted reference range : <=0.8. The reference r henry was not used to int erpret this result as normal/abnormal . [facility] HospitalCyaggskPZBFKIUHJG9633-49-20 09:51:00 Test Item Value Reference Range Interpretation Comments Eosinophils # (test code 0.4 See_Comment [A utomated message] The = Eosinophils #) system whic h generated this result tra nsmitted reference range : <=0.5. The reference r henry was not used to int erpret this result as normal/abnormal . [facility] HospitalArqwmseVEEGPGTFNM3313-46-24 09:51:00 Test Item Value Reference Range Interpretation Comments Basophils # (test code 0.2 See_Comment [Aut omated message] The = Basophils #) system which generated this result tra nsmitted reference range : <=0.2. The reference r henry was not used to int erpret this result as normal/abnormal . [facility]2019-12-01 09:51:00 Test Item Value Reference Range Interpretation Comments Glucose Lvl (test code = Glucose Lvl) 109 70-99 [facility]2019-12-01 09:51:00 Test Item Value Reference Range Interpretation Comments BUN (test code = BUN) 41 7-22 [facility]2019-12-01 09:51:00 Test Item Value Reference Range Interpretation Comments Creatinine Lvl (test code = Creatinine 6.29 0.50-1.40 Lvl) [facility]2019-12-01 09:51:00 Test Item Value Reference Range Interpretation Comments Sodium Lvl (test code = Sodium Lvl) 139 135-145 [facility]2019-12-01 09:51:00 Test Item Value Reference Range Interpretation Comments Potassium Lvl (test code = Potassium 5.2 3.5-5.1 Lvl) [facility]2019-12-01 09:51:00 Test Item Value Reference Range Interpretation Comments Chloride Lvl (test code = Chloride Lvl) 105 95-109 [facility]2019-12-01 09:51:00 Test Item Value Reference Range Interpretation Comments CO2 (test code = CO2) 22 24-32 [facility]2019-12-01 09:51:00 Test Item Value Reference Range Interpretation Comments AGAP (test code = AGAP) 17.2 10.0-20.0 [facility]2019-12-01 09:51:00 Test Item Value Reference Range Interpretation Comments Calcium Lvl (test code = Calcium Lvl) 8.7 8.5-10.5 [facility]2019-12-01 09:51:00 Test Item Value Reference Range Interpretation Comments Albumin Lvl (test code = Albumin Lvl) 2.6 3.5-5.0 [facility]2019-12-01 09:51:00 Test Item Value Reference Range Interpretation Comments Phosphorus (test code = Phosphorus) 6.8 2.5-4.5 [facility]2019-12-01 09:51:00 Test Item Value Reference Range Interpretation Comments eGFR (test code = eGFR) 7 [facility] HospitalLwogndhPXBBIZGEIG7876-14-35 09:51:00 Test Item Value Reference Range Interpretation Comments WBC (test code = WBC) 8.8 3.7-10.4 [facility] HospitalWqsusueIHACPHRUUM0988-72-40 09:51:00 Test Item Value Reference Range Interpretation Comments RBC (test code = RBC) 5.60 4.20-5.40 [facility] HospitalEqdrxqmZZNDPRMQWJ9138-61-60 09:51:00 Test Item Value Reference Range Interpretation Comments Hgb (test code = Hgb) 14.2 12.0-16.0 [facility] HospitalTbgvocsTBMHTIPAGZ0486-54-08 09:51:00 Test Item Value Reference Range Interpretation Comments Hct (test code = Hct) 44.6 36.0-48.0 [facility] HospitalIfqpmilXJQKFJOTPE6214-00-87 09:51:00 Test Item Value Reference Range Interpretation Comments MCV (test code = MCV) 79.6 80.0-98.0 [facility] HospitalTsjmxicEEAGRSXFWL3660-43-14 09:51:00 Test Item Value Reference Range Interpretation Comments MCH (test code = MCH) 25.3 pg 27.0-31.0 [facility] HospitalMysiendATBAYYFQQW6159-32-11 09:51:00 Test Item Value Reference Range Interpretation Comments MCHC (test code = MCHC) 31.8 32.0-36.0 [facility] HospitalGfnpffnFPXXCCAIUH8610-82-56 09:51:00 Test Item Value Reference Range Interpretation Comments RDW (test code = RDW) 18.1 11.5-14.5 [facility] HospitalYyoylalPYKTCXKZHB3671-91-31 09:51:00 Test Item Value Reference Range Interpretation Comments Platelet (test code = Platelet) 261 133-450 [facility] HospitalAxfvatjHLSKWJSRZP1167-43-26 09:51:00 Test Item Value Reference Range Interpretation Comments MPV (test code = MPV) 8.2 7.4-10.4 [facility] HospitalZqiitbyXPOXBZRVOR7285-22-90 09:51:00 Test Item Value Reference Range Interpretation Comments Segs (test code = Segs) 62.4 45.0-75.0 [place] 455239-12-01 09:51:00 Test Item Value Reference Range Interpretation Comments Lymphocytes (test code = Lymphocytes) 21.0 20.0-40.0 [facility] HospitalZpgupceUGQRDXUFPD5572-13-33 09:51:00 Test Item Value Reference Range Interpretation Comments Monocytes (test code = Monocytes) 10.8 2.0-12.0 [facility] HospitalBiyxicrTDCZIOPBUY1696-49-46 09:51:00 Test Item Value Reference Range Interpretation Comments Eosinophils (test code = 4.1 See_Comment [A utomated message] The Eosinophils) system which ge nerated this result tra nsmitted reference range : <=4.0. The reference r henry was not used to int erpret this result as normal/abnormal . [facility] HospitalPbipyjbUZFJPDPZDV6028-09-36 09:51:00 Test Item Value Reference Range Interpretation Comments Basophils (test code = 1.7 See_Comment [Aut omated message] The Basophils) system which ge nerated this result tra nsmitted reference range : <=1.0. The reference r henry was not used to int erpret this result as normal/abnormal . [facility] HospitalFbethrzHICKHLGWAM5328-76-23 09:51:00 Test Item Value Reference Range Interpretation Comments Neutrophils # (test code = Neutrophils 5.5 1.5-8.1 #) [facility] HospitalBjurkkzNBQPFYKXGV4668-93-36 09:51:00 Test Item Value Reference Range Interpretation Comments Lymphocytes # (test code = Lymphocytes 1.9 1.0-5.5 #) [facility] HospitalXfywmhmJARDVCHGSO8260-64-89 09:51:00 Test Item Value Reference Range Interpretation Comments Monocytes # (test code 1.0 See_Comment [Aut omated message] The = Monocytes #) system which generated this result tra nsmitted reference range : <=0.8. The reference r henry was not used to int erpret this result as normal/abnormal . [facility] HospitalOlhsebiVUGJUXCAPI3222-91-00 09:51:00 Test Item Value Reference Range Interpretation Comments Eosinophils # (test code 0.4 See_Comment [A utomated message] The = Eosinophils #) system whic h generated this result tra nsmitted reference range : <=0.5. The reference r henry was not used to int erpret this result as normal/abnormal . [facility] HospitalEmryculZLMHBYMGPB7068-57-24 09:51:00 Test Item Value Reference Range Interpretation Comments Basophils # (test code 0.2 See_Comment [Aut omated message] The = Basophils #) system which generated this result tra nsmitted reference range : <=0.2. The reference r henry was not used to int erpret this result as normal/abnormal . [facility]2019-12-01 09:51:00 Test Item Value Reference Range Interpretation Comments Glucose Lvl (test code = Glucose Lvl) 109 70-99 [facility]2019-12-01 09:51:00 Test Item Value Reference Range Interpretation Comments BUN (test code = BUN) 41 7-22 [facility]2019-12-01 09:51:00 Test Item Value Reference Range Interpretation Comments Creatinine Lvl (test code = Creatinine 6.29 0.50-1.40 Lvl) [facility]2019-12-01 09:51:00 Test Item Value Reference Range Interpretation Comments Sodium Lvl (test code = Sodium Lvl) 139 135-145 [facility]2019-12-01 09:51:00 Test Item Value Reference Range Interpretation Comments Potassium Lvl (test code = Potassium 5.2 3.5-5.1 Lvl) [facility]2019-12-01 09:51:00 Test Item Value Reference Range Interpretation Comments Chloride Lvl (test code = Chloride Lvl) 105 95-109 [facility]2019-12-01 09:51:00 Test Item Value Reference Range Interpretation Comments CO2 (test code = CO2) 22 24-32 [facility]2019-12-01 09:51:00 Test Item Value Reference Range Interpretation Comments AGAP (test code = AGAP) 17.2 10.0-20.0 [facility]2019-12-01 09:51:00 Test Item Value Reference Range Interpretation Comments Calcium Lvl (test code = Calcium Lvl) 8.7 8.5-10.5 [facility]2019-12-01 09:51:00 Test Item Value Reference Range Interpretation Comments Albumin Lvl (test code = Albumin Lvl) 2.6 3.5-5.0 [facility]2019-12-01 09:51:00 Test Item Value Reference Range Interpretation Comments Phosphorus (test code = Phosphorus) 6.8 2.5-4.5 [facility]2019-12-01 09:51:00 Test Item Value Reference Range Interpretation Comments eGFR (test code = eGFR) 7 [facility] HospitalUxigloiOLDAOGQTKS0801-52-62 09:51:00 Test Item Value Reference Range Interpretation Comments WBC (test code = WBC) 8.8 3.7-10.4 [facility] HospitalWeqynqdPPTMLQCKUC2698-70-28 09:51:00 Test Item Value Reference Range Interpretation Comments RBC (test code = RBC) 5.60 4.20-5.40 [facility] HospitalAtoibpiXFXBAHCUKY3627-93-80 09:51:00 Test Item Value Reference Range Interpretation Comments Hgb (test code = Hgb) 14.2 12.0-16.0 [facility] HospitalVelekxnVKAVDXYGGI2552-62-80 09:51:00 Test Item Value Reference Range Interpretation Comments Hct (test code = Hct) 44.6 36.0-48.0 [facility] HospitalHhgrlpzQVYMRWIBTA6897-95-31 09:51:00 Test Item Value Reference Range Interpretation Comments MCV (test code = MCV) 79.6 80.0-98.0 [facility] HospitalTrtpqurAJONOJZPCD3611-79-07 09:51:00 Test Item Value Reference Range Interpretation Comments MCH (test code = MCH) 25.3 pg 27.0-31.0 [facility] HospitalKatkveiNFDLRUKGNU6567-36-56 09:51:00 Test Item Value Reference Range Interpretation Comments MCHC (test code = MCHC) 31.8 32.0-36.0 [facility] HospitalQsxuxtgPHCMFLEREM7318-97-69 09:51:00 Test Item Value Reference Range Interpretation Comments RDW (test code = RDW) 18.1 11.5-14.5 [facility] HospitalQnufbqmRXEZUIVJXH7722-65-00 09:51:00 Test Item Value Reference Range Interpretation Comments Platelet (test code = Platelet) 261 133-450 [facility] HospitalByhxybhNCHCJGQAUM7612-95-15 09:51:00 Test Item Value Reference Range Interpretation Comments MPV (test code = MPV) 8.2 7.4-10.4 [facility] HospitalGwxanjrJKKHVQPITN4945-79-00 09:51:00 Test Item Value Reference Range Interpretation Comments Segs (test code = Segs) 62.4 45.0-75.0 [facility] HospitalJnbstnlPVBDSDQRHK5788-26-14 09:51:00 Test Item Value Reference Range Interpretation Comments Lymphocytes (test code = Lymphocytes) 21.0 20.0-40.0 [facility] HospitalYgarglnERFPFQAZIR8944-05-68 09:51:00 Test Item Value Reference Range Interpretation Comments Monocytes (test code = Monocytes) 10.8 2.0-12.0 [facility] HospitalYwqccwfRIRXSDKFUU9330-23-77 09:51:00 Test Item Value Reference Range Interpretation Comments Eosinophils (test code = 4.1 See_Comment [A utomated message] The Eosinophils) system which ge nerated this result tra nsmitted reference range : <=4.0. The reference r henry was not used to int erpret this result as normal/abnormal . [facility] HospitalQhrzujpZPIKBBDEYY3088-80-17 09:51:00 Test Item Value Reference Range Interpretation Comments Basophils (test code = 1.7 See_Comment [Aut omated message] The Basophils) system which ge nerated this result tra nsmitted reference range : <=1.0. The reference r henry was not used to int erpret this result as normal/abnormal . [facility] HospitalFwveznbJPBIAQMAUD5540-03-15 09:51:00 Test Item Value Reference Range Interpretation Comments Neutrophils # (test code = Neutrophils 5.5 1.5-8.1 #) [facility] HospitalQjvmavqVYHEABCNGT8024-80-46 09:51:00 Test Item Value Reference Range Interpretation Comments Lymphocytes # (test code = Lymphocytes 1.9 1.0-5.5 #) [facility] HospitalMyctngyYHLIQHUPAR3894-65-33 09:51:00 Test Item Value Reference Range Interpretation Comments Monocytes # (test code 1.0 See_Comment [Aut omated message] The = Monocytes #) system which generated this result tra nsmitted reference range : <=0.8. The reference r henry was not used to int erpret this result as normal/abnormal . [facility] HospitalEcqgghlIDZRHQFNQI9920-26-38 09:51:00 Test Item Value Reference Range Interpretation Comments Eosinophils # (test code 0.4 See_Comment [A utomated message] The = Eosinophils #) system whic h generated this result tra nsmitted reference range : <=0.5. The reference r henry was not used to int erpret this result as normal/abnormal . [facility] HospitalSqjjcmeFWQNBGFFMI5219-31-74 09:51:00 Test Item Value Reference Range Interpretation Comments Basophils # (test code 0.2 See_Comment [Aut omated message] The = Basophils #) system which generated this result tra nsmitted reference range : <=0.2. The reference r henry was not used to int erpret this result as normal/abnormal . [facility]2019-12-01 09:51:00 Test Item Value Reference Range Interpretation Comments Glucose Lvl (test code = Glucose Lvl) 109 70-99 [facility]2019-12-01 09:51:00 Test Item Value Reference Range Interpretation Comments BUN (test code = BUN) 41 7-22 [facility]2019-12-01 09:51:00 Test Item Value Reference Range Interpretation Comments Creatinine Lvl (test code = Creatinine 6.29 0.50-1.40 Lvl) [facility]2019-12-01 09:51:00 Test Item Value Reference Range Interpretation Comments Sodium Lvl (test code = Sodium Lvl) 139 135-145 [facility]2019-12-01 09:51:00 Test Item Value Reference Range Interpretation Comments Potassium Lvl (test code = Potassium 5.2 3.5-5.1 Lvl) [facility]2019-12-01 09:51:00 Test Item Value Reference Range Interpretation Comments Chloride Lvl (test code = Chloride Lvl) 105 95-109 [facility]2019-12-01 09:51:00 Test Item Value Reference Range Interpretation Comments CO2 (test code = CO2) 22 24-32 [facility]2019-12-01 09:51:00 Test Item Value Reference Range Interpretation Comments AGAP (test code = AGAP) 17.2 10.0-20.0 [facility]2019-12-01 09:51:00 Test Item Value Reference Range Interpretation Comments Calcium Lvl (test code = Calcium Lvl) 8.7 8.5-10.5 [facility]2019-12-01 09:51:00 Test Item Value Reference Range Interpretation Comments Albumin Lvl (test code = Albumin Lvl) 2.6 3.5-5.0 [facility]2019-12-01 09:51:00 Test Item Value Reference Range Interpretation Comments Phosphorus (test code = Phosphorus) 6.8 2.5-4.5 [facility]2019-12-01 09:51:00 Test Item Value Reference Range Interpretation Comments eGFR (test code = eGFR) 7 [facility] HospitalDhpgfuuJIKRMROARF5012-48-50 09:51:00 Test Item Value Reference Range Interpretation Comments WBC (test code = WBC) 8.8 3.7-10.4 [facility] HospitalZyiucdnMZLUFPIAUB8584-35-97 09:51:00 Test Item Value Reference Range Interpretation Comments RBC (test code = RBC) 5.60 4.20-5.40 [facility] HospitalBvxchkzBLUBCLDFKL2758-80-94 09:51:00 Test Item Value Reference Range Interpretation Comments Hgb (test code = Hgb) 14.2 12.0-16.0 [facility] HospitalXcrdxylRITUBWTRGT5555-27-63 09:51:00 Test Item Value Reference Range Interpretation Comments Hct (test code = Hct) 44.6 36.0-48.0 [facility] HospitalKaoamvfQMLVUHBZOD7785-51-20 09:51:00 Test Item Value Reference Range Interpretation Comments MCV (test code = MCV) 79.6 80.0-98.0 [facility] HospitalEgijrpkQCQAVOAZKF8688-93-10 09:51:00 Test Item Value Reference Range Interpretation Comments MCH (test code = MCH) 25.3 pg 27.0-31.0 [facility] HospitalTqxoaehGUVXGPFXJP9443-28-65 09:51:00 Test Item Value Reference Range Interpretation Comments MCHC (test code = MCHC) 31.8 32.0-36.0 [facility] HospitalSnuqqdfYSFCVWWCMA0239-96-64 09:51:00 Test Item Value Reference Range Interpretation Comments RDW (test code = RDW) 18.1 11.5-14.5 [facility] HospitalWntbwbbOYYLEQFRAZ5905-14-54 09:51:00 Test Item Value Reference Range Interpretation Comments Platelet (test code = Platelet) 261 133-450 [facility] HospitalQauztsmEKCUAHRAFI0663-05-12 09:51:00 Test Item Value Reference Range Interpretation Comments MPV (test code = MPV) 8.2 7.4-10.4 [facility] HospitalKfiimwtAOIEKFOBJG7354-01-84 09:51:00 Test Item Value Reference Range Interpretation Comments Segs (test code = Segs) 62.4 45.0-75.0 [facility] HospitalFvvtaxxSQWRRKSZDH2937-95-06 09:51:00 Test Item Value Reference Range Interpretation Comments Lymphocytes (test code = Lymphocytes) 21.0 20.0-40.0 [facility] HospitalWyunydiPDTJHJNLML0904-53-61 09:51:00 Test Item Value Reference Range Interpretation Comments Monocytes (test code = Monocytes) 10.8 2.0-12.0 [facility] HospitalWyvckpySNMDOCXIML9251-75-25 09:51:00 Test Item Value Reference Range Interpretation Comments Eosinophils (test code = 4.1 See_Comment [A utomated message] The Eosinophils) system which ge nerated this result tra nsmitted reference range : <=4.0. The reference r henry was not used to int erpret this result as normal/abnormal . [facility] HospitalFcbajmnBAFAPNPMRU6569-42-94 09:51:00 Test Item Value Reference Range Interpretation Comments Basophils (test code = 1.7 See_Comment [Aut omated message] The Basophils) system which ge nerated this result tra nsmitted reference range : <=1.0. The reference r henry was not used to int erpret this result as normal/abnormal . [facility] HospitalRjpnhjpIXQRBWBYVL4295-62-69 09:51:00 Test Item Value Reference Range Interpretation Comments Neutrophils # (test code = Neutrophils 5.5 1.5-8.1 #) [facility] HospitalRnsmhbiQGAHCEQIMB7286-04-99 09:51:00 Test Item Value Reference Range Interpretation Comments Lymphocytes # (test code = Lymphocytes 1.9 1.0-5.5 #) [facility] HospitalPrdyklvGVCIFJJHGM8940-53-94 09:51:00 Test Item Value Reference Range Interpretation Comments Monocytes # (test code 1.0 See_Comment [Aut omated message] The = Monocytes #) system which generated this result tra nsmitted reference range : <=0.8. The reference r henry was not used to int erpret this result as normal/abnormal . [facility] HospitalCoxnjwcKVWXGHTMGY8332-83-67 09:51:00 Test Item Value Reference Range Interpretation Comments Eosinophils # (test code 0.4 See_Comment [A utomated message] The = Eosinophils #) system whic h generated this result tra nsmitted reference range : <=0.5. The reference r henry was not used to int erpret this result as normal/abnormal . [facility] HospitalRtqmngcNQAJKKEUCF0939-44-54 09:51:00 Test Item Value Reference Range Interpretation Comments Basophils # (test code 0.2 See_Comment [Aut omated message] The = Basophils #) system which generated this result tra nsmitted reference range : <=0.2. The reference r henry was not used to int erpret this result as normal/abnormal . [facility]2019-12-01 09:51:00 Test Item Value Reference Range Interpretation Comments Glucose Lvl (test code = Glucose Lvl) 109 70-99 [facility]2019-12-01 09:51:00 Test Item Value Reference Range Interpretation Comments BUN (test code = BUN) 41 7-22 [facility]2019-12-01 09:51:00 Test Item Value Reference Range Interpretation Comments Creatinine Lvl (test code = Creatinine 6.29 0.50-1.40 Lvl) [facility]2019-12-01 09:51:00 Test Item Value Reference Range Interpretation Comments Sodium Lvl (test code = Sodium Lvl) 139 135-145 [facility]2019-12-01 09:51:00 Test Item Value Reference Range Interpretation Comments Potassium Lvl (test code = Potassium 5.2 3.5-5.1 Lvl) [facility]2019-12-01 09:51:00 Test Item Value Reference Range Interpretation Comments Chloride Lvl (test code = Chloride Lvl) 105 95-109 [facility]2019-12-01 09:51:00 Test Item Value Reference Range Interpretation Comments CO2 (test code = CO2) 22 24-32 [facility] [facility] 09:[facility]:00 Test Item Value Reference Range Interpretation Comments AGAP (test code = AGAP) 17.2 10.0-20.0 [facility]2019-12-01 09:51:00 Test Item Value Reference Range Interpretation Comments Calcium Lvl (test code = Calcium Lvl) 8.7 8.5-10.5 [facility]2019-12-01 09:51:00 Test Item Value Reference Range Interpretation Comments Albumin Lvl (test code = Albumin Lvl) 2.6 3.5-5.0 [facility]2019-12-01 09:51:00 Test Item Value Reference Range Interpretation Comments Phosphorus (test code = Phosphorus) 6.8 2.5-4.5 [facility]2019-12-01 09:51:00 Test Item Value Reference Range Interpretation Comments eGFR (test code = eGFR) 7 [facility]AithadjBFXVLFWBJU2560-73-67 09:51:00 Test Item Value Reference Range Interpretation Comments WBC (test code = WBC) 8.8 3.7-10.4 [facility]HrambrmRSQBLIBWAU3427-59-84 09:51:00 Test Item Value Reference Range Interpretation Comments RBC (test code = RBC) 5.60 4.20-5.40 [facility] HospitalMcwkljrLBBUECYNQQ7685-67-70 09:51:00 Test Item Value Reference Range Interpretation Comments Hgb (test code = Hgb) 14.2 12.0-16.0 [facility] HospitalKbodkjbWIYBBDISML6299-34-10 09:51:00 Test Item Value Reference Range Interpretation Comments Hct (test code = Hct) 44.6 36.0-48.0 [facility] HospitalKzssiczEHKVYAHDYW3606-22-93 09:51:00 Test Item Value Reference Range Interpretation Comments MCV (test code = MCV) 79.6 80.0-98.0 [facility] HospitalNsslfpcZAUHIGTOUD2003-38-49 09:51:00 Test Item Value Reference Range Interpretation Comments MCH (test code = MCH) 25.3 pg 27.0-31.0 [facility] HospitalMbvtsvpZSJNTKMCUJ3902-82-80 09:51:00 Test Item Value Reference Range Interpretation Comments MCHC (test code = MCHC) 31.8 32.0-36.0 [facility] HospitalAdvdwfvNRYJPVVANJ5794-50-47 09:51:00 Test Item Value Reference Range Interpretation Comments RDW (test code = RDW) 18.1 11.5-14.5 [facility] HospitalTrkxctcNFLFGNIQXE8328-39-43 09:51:00 Test Item Value Reference Range Interpretation Comments Platelet (test code = Platelet) 261 133-450 [facility] HospitalBoevrdiXNRHLTKAPS4937-21-79 09:51:00 Test Item Value Reference Range Interpretation Comments MPV (test code = MPV) 8.2 7.4-10.4 [facility] HospitalFexjxpzMKLQDNBUVH0244-53-79 09:51:00 Test Item Value Reference Range Interpretation Comments Segs (test code = Segs) 62.4 45.0-75.0 [facility] HospitalJvgnhjoISQEZHBLXQ8959-35-38 09:51:00 Test Item Value Reference Range Interpretation Comments Lymphocytes (test code = Lymphocytes) 21.0 20.0-40.0 [facility] HospitalCnkihzbYIXNVKVTHR3487-76-84 09:51:00 Test Item Value Reference Range Interpretation Comments Monocytes (test code = Monocytes) 10.8 2.0-12.0 [facility] HospitalKcopklmZLWXPGDJKW3434-49-39 09:51:00 Test Item Value Reference Range Interpretation Comments Eosinophils (test code = 4.1 See_Comment [A utomated message] The Eosinophils) system which ge nerated this result tra nsmitted reference range : <=4.0. The reference r henry was not used to int erpret this result as normal/abnormal . [facility] HospitalPuhzpdiEMXGTPVZXX4269-43-94 09:51:00 Test Item Value Reference Range Interpretation Comments Basophils (test code = 1.7 See_Comment [Aut omated message] The Basophils) system which ge nerated this result tra nsmitted reference range : <=1.0. The reference r henry was not used to int erpret this result as normal/abnormal . [facility] HospitalHmfhanuNXRTGMSWUJ3977-57-26 09:51:00 Test Item Value Reference Range Interpretation Comments Neutrophils # (test code = Neutrophils 5.5 1.5-8.1 #) [facility] HospitalIydyehbCYPHIULHJG2970-91-29 09:51:00 Test Item Value Reference Range Interpretation Comments Lymphocytes # (test code = Lymphocytes 1.9 1.0-5.5 #) [facility] HospitalJfflpexRDASHWXQNE9392-75-48 09:51:00 Test Item Value Reference Range Interpretation Comments Monocytes # (test code 1.0 See_Comment [Aut omated message] The = Monocytes #) system which generated this result tra nsmitted reference range : <=0.8. The reference r henry was not used to int erpret this result as normal/abnormal . [facility] HospitalNqbocrxCBOIWKPNDS3630-02-37 09:51:00 Test Item Value Reference Range Interpretation Comments Eosinophils # (test code 0.4 See_Comment [A utomated message] The = Eosinophils #) system whic h generated this result tra nsmitted reference range : <=0.5. The reference r henry was not used to int erpret this result as normal/abnormal . [facility] HospitalMpothzcRQYVNJYXRC2436-14-76 09:51:00 Test Item Value Reference Range Interpretation Comments Basophils # (test code 0.2 See_Comment [Aut omated message] The = Basophils #) system which generated this result tra nsmitted reference range : <=0.2. The reference r henry was not used to int erpret this result as normal/abnormal . [facility]2019-12-01 09:51:00 Test Item Value Reference Range Interpretation Comments Glucose Lvl (test code = Glucose Lvl) 109 70-99 [facility]2019-12-01 09:51:00 Test Item Value Reference Range Interpretation Comments BUN (test code = BUN) 41 7-22 [facility]2019-12-01 09:51:00 Test Item Value Reference Range Interpretation Comments Creatinine Lvl (test code = Creatinine 6.29 0.50-1.40 Lvl) [facility]2019-12-01 09:51:00 Test Item Value Reference Range Interpretation Comments Sodium Lvl (test code = Sodium Lvl) 139 135-145 [facility]2019-12-01 09:51:00 Test Item Value Reference Range Interpretation Comments Potassium Lvl (test code = Potassium 5.2 3.5-5.1 Lvl) [facility]2019-12-01 09:51:00 Test Item Value Reference Range Interpretation Comments Chloride Lvl (test code = Chloride Lvl) 105 95-109 [facility]2019-12-01 09:51:00 Test Item Value Reference Range Interpretation Comments CO2 (test code = CO2) 22 24-32 [facility]2019-12-01 09:51:00 Test Item Value Reference Range Interpretation Comments AGAP (test code = AGAP) 17.2 10.0-20.0 [facility]2019-12-01 09:51:00 Test Item Value Reference Range Interpretation Comments Calcium Lvl (test code = Calcium Lvl) 8.7 8.5-10.5 [facility]2019-12-01 09:51:00 Test Item Value Reference Range Interpretation Comments Albumin Lvl (test code = Albumin Lvl) 2.6 3.5-5.0 [facility]2019-12-01 09:51:00 Test Item Value Reference Range Interpretation Comments Phosphorus (test code = Phosphorus) 6.8 2.5-4.5 [facility]2019-12-01 09:51:00 Test Item Value Reference Range Interpretation Comments eGFR (test code = eGFR) 7 [facility] HospitalUijrhzzDHYEVRQCOO7883-64-05 09:51:00 Test Item Value Reference Range Interpretation Comments WBC (test code = WBC) 8.8 3.7-10.4 [facility] HospitalOvwprqlIFSALCVFKF7779-89-20 09:51:00 Test Item Value Reference Range Interpretation Comments RBC (test code = RBC) 5.60 4.20-5.40 [facility] HospitalSgnsaqiCMNJPWKHSW0337-69-85 09:51:00 Test Item Value Reference Range Interpretation Comments Hgb (test code = Hgb) 14.2 12.0-16.0 [facility] HospitalWdajhrtTRWHQESJNK5548-35-24 09:51:00 Test Item Value Reference Range Interpretation Comments Hct (test code = Hct) 44.6 36.0-48.0 [facility] HospitalUttqqscEKFETBWJQY2433-29-72 09:51:00 Test Item Value Reference Range Interpretation Comments MCV (test code = MCV) 79.6 80.0-98.0 [facility] HospitalRbftbcmTAJOTDIXFA6847-24-38 09:51:00 Test Item Value Reference Range Interpretation Comments MCH (test code = MCH) 25.3 pg 27.0-31.0 [facility] HospitalFqoyxhnSFRMDNPMFZ4755-91-70 09:51:00 Test Item Value Reference Range Interpretation Comments MCHC (test code = MCHC) 31.8 32.0-36.0 [facility] HospitalYxuatgyFXBRNFPCQH9273-80-17 09:51:00 Test Item Value Reference Range Interpretation Comments RDW (test code = RDW) 18.1 11.5-14.5 [facility] HospitalBcghtegXDJLDXQXPD0692-89-78 09:51:00 Test Item Value Reference Range Interpretation Comments Platelet (test code = Platelet) 261 133-450 [facility] HospitalMqlgujzKWBCWLXOVJ2514-98-44 09:51:00 Test Item Value Reference Range Interpretation Comments MPV (test code = MPV) 8.2 7.4-10.4 [facility] HospitalFfzdpxlXMXOONKQQF6819-90-21 09:51:00 Test Item Value Reference Range Interpretation Comments Segs (test code = Segs) 62.4 45.0-75.0 [facility] HospitalIjuztohPAYIPMWAHB7512-06-60 09:51:00 Test Item Value Reference Range Interpretation Comments Lymphocytes (test code = Lymphocytes) 21.0 20.0-40.0 [facility] HospitalLzkrmujECXVYSTLPJ2440-30-60 09:51:00 Test Item Value Reference Range Interpretation Comments Monocytes (test code = Monocytes) 10.8 2.0-12.0 [facility] HospitalLfihgybIJHPBBRURG1421-38-66 09:51:00 Test Item Value Reference Range Interpretation Comments Eosinophils (test code = Eosinophils) 4.1 <=4.0 [facility] HospitalJfjaboxSZSQCEVFBN6916-74-82 09:51:00 Test Item Value Reference Range Interpretation Comments Basophils (test code = Basophils) 1.7 <=1.0 [place] 455239-12-01 09:51:00 Test Item Value Reference Range Interpretation Comments Neutrophils # (test code = Neutrophils 5.5 1.5-8.1 #) [facility] HospitalGkmzwmuCLYBTDYMGE6593-90-76 09:51:00 Test Item Value Reference Range Interpretation Comments Lymphocytes # (test code = Lymphocytes 1.9 1.0-5.5 #) [facility] HospitalHkrlygeGUJMKGMYIY2862-68-16 09:51:00 Test Item Value Reference Range Interpretation Comments Monocytes # (test code = Monocytes #) 1.0 <=0.8 [place] 455239-12-01 09:51:00 Test Item Value Reference Range Interpretation Comments Eosinophils # (test code = Eosinophils 0.4 <=0.5 #) [facility] HospitalQohtnebUQJUQMJFUR4516-37-66 09:51:00 Test Item Value Reference Range Interpretation Comments Basophils # (test code = Basophils #) 0.2 <=0.2 [facility]2019-11-30 17:53:00 Test Item Value Reference Range Interpretation Comments Procalcitonin Lvl (test 0.50 See_Comment [Au tomated message] code = Procalcitonin Lvl) Th e system which generated this result transmitted ref erence range: <=0.10. The reference range was not used to interpr et this result as normal/abnormal . [facility]2019-11-30 17:53:00 Test Item Value Reference Range Interpretation Comments Procalcitonin Lvl (test 0.50 See_Comment [Au tomated message] code = Procalcitonin Lvl) Th e system which generated this result transmitted ref erence range: <=0.10. The reference range was not used to interpr et this result as normal/abnormal . [facility]2019-11-30 17:53:00 Test Item Value Reference Range Interpretation Comments Procalcitonin Lvl (test 0.50 See_Comment [Au tomated message] code = Procalcitonin Lvl) Th e system which generated this result transmitted ref erence range: <=0.10. The reference range was not used to interpr et this result as normal/abnormal . [place] 729219-11-30 17:53:00 Test Item Value Reference Range Interpretation Comments Procalcitonin Lvl (test 0.50 See_Comment [Au tomated message] code = Procalcitonin Lvl) Th e system which generated this result transmitted ref erence range: <=0.10. The reference range was not used to interpr et this result as normal/abnormal . [place] 729219-11-30 17:53:00 Test Item Value Reference Range Interpretation Comments Procalcitonin Lvl (test 0.50 See_Comment [Au tomated message] code = Procalcitonin Lvl) Th e system which generated this result transmitted ref erence range: <=0.10. The reference range was not used to interpr et this result as normal/abnormal . [place] 729219-11-30 17:53:00 Test Item Value Reference Range Interpretation Comments Procalcitonin Lvl (test 0.50 See_Comment [Au tomated message] code = Procalcitonin Lvl) Th e system which generated this result transmitted ref erence range: <=0.10. The reference range was not used to interpr et this result as normal/abnormal . [place] 729219-11-30 17:53:00 Test Item Value Reference Range Interpretation Comments Procalcitonin Lvl (test 0.50 See_Comment [Au tomated message] code = Procalcitonin Lvl) Th e system which generated this result transmitted ref erence range: <=0.10. The reference range was not used to interpr et this result as normal/abnormal . [place] 729219-11-30 17:53:00 Test Item Value Reference Range Interpretation Comments Procalcitonin Lvl (test 0.50 See_Comment [Au tomated message] code = Procalcitonin Lvl) Th e system which generated this result transmitted ref erence range: <=0.10. The reference range was not used to interpr et this result as normal/abnormal . [facility]2019-11-30 17:53:00 Test Item Value Reference Range Interpretation Comments Procalcitonin Lvl (test 0.50 See_Comment [Au tomated message] code = Procalcitonin Lvl) Th e system which generated this result transmitted ref erence range: <=0.10. The reference range was not used to interpr et this result as normal/abnormal . [facility]2019-11-30 17:53:00 Test Item Value Reference Range Interpretation Comments Procalcitonin Lvl (test 0.50 See_Comment [Au tomated message] code = Procalcitonin Lvl) Th e system which generated this result transmitted ref erence range: <=0.10. The reference range was not used to interpr et this result as normal/abnormal . [facility]2019-11-30 17:53:00 Test Item Value Reference Range Interpretation Comments Procalcitonin Lvl (test 0.50 See_Comment [Au tomated message] code = Procalcitonin Lvl) Th e system which generated this result transmitted ref erence range: <=0.10. The reference range was not used to interpr et this result as normal/abnormal . [facility]2019-11-30 17:53:00 Test Item Value Reference Range Interpretation Comments Procalcitonin Lvl (test code = 0.50 <=0.10 Procalcitonin Lvl) [facility]2019-11-30 10:35:00 Test Item Value Reference Range Interpretation Comments Glucose Lvl (test code = Glucose Lvl) 254 70-99 [facility]2019-11-30 10:35:00 Test Item Value Reference Range Interpretation Comments BUN (test code = BUN) 19 7-22 [facility]2019-11-30 10:35:00 Test Item Value Reference Range Interpretation Comments Creatinine Lvl (test code = Creatinine 4.05 0.50-1.40 Lvl) [facility]2019-11-30 10:35:00 Test Item Value Reference Range Interpretation Comments Sodium Lvl (test code = Sodium Lvl) 138 135-145 [facility]2019-11-30 10:35:00 Test Item Value Reference Range Interpretation Comments Potassium Lvl (test code = Potassium 4.6 3.5-5.1 Lvl) [facility]2019-11-30 10:35:00 Test Item Value Reference Range Interpretation Comments Chloride Lvl (test code = Chloride Lvl) 102 95-109 [facility]2019-11-30 10:35:00 Test Item Value Reference Range Interpretation Comments CO2 (test code = CO2) 26 24-32 [facility]2019-11-30 10:35:00 Test Item Value Reference Range Interpretation Comments AGAP (test code = AGAP) 14.6 10.0-20.0 [facility]2019-11-30 10:35:00 Test Item Value Reference Range Interpretation Comments Calcium Lvl (test code = Calcium Lvl) 8.9 8.5-10.5 [facility]2019-11-30 10:35:00 Test Item Value Reference Range Interpretation Comments Albumin Lvl (test code = Albumin Lvl) 2.7 3.5-5.0 [facility]2019-11-30 10:35:00 Test Item Value Reference Range Interpretation Comments Phosphorus (test code = Phosphorus) 5.1 2.5-4.5 [facility]2019-11-30 10:35:00 Test Item Value Reference Range Interpretation Comments eGFR (test code = eGFR) 11 [facility] HospitalCnhabpgNXLSJXLKZE8955-24-65 10:35:00 Test Item Value Reference Range Interpretation Comments WBC (test code = WBC) 8.5 3.7-10.4 [facility] HospitalAvpawfdXFWUFISRYT0723-53-49 10:35:00 Test Item Value Reference Range Interpretation Comments RBC (test code = RBC) 5.30 4.20-5.40 [facility] HospitalVuvznviNMVNATYOYW2983-70-44 10:35:00 Test Item Value Reference Range Interpretation Comments Hgb (test code = Hgb) 13.4 12.0-16.0 [facility] HospitalRzooculWPMPCKHNUN6768-79-86 10:35:00 Test Item Value Reference Range Interpretation Comments Hct (test code = Hct) 42.5 36.0-48.0 [facility] HospitalHgjikfsRIAWZCMBAW4826-88-68 10:35:00 Test Item Value Reference Range Interpretation Comments MCV (test code = MCV) 80.1 80.0-98.0 [facility] HospitalZzgappiWRCKDPXXBQ2718-46-83 10:35:00 Test Item Value Reference Range Interpretation Comments MCH (test code = MCH) 25.3 pg 27.0-31.0 [facility] HospitalRbknxibCWUPUOCNDX7936-35-75 10:35:00 Test Item Value Reference Range Interpretation Comments MCHC (test code = MCHC) 31.6 32.0-36.0 [facility] HospitalMnfilstQKCDWBTVQK8828-47-31 10:35:00 Test Item Value Reference Range Interpretation Comments RDW (test code = RDW) 18.2 11.5-14.5 [facility] HospitalEjrgouqHOSAYVVULV6404-15-68 10:35:00 Test Item Value Reference Range Interpretation Comments Platelet (test code = Platelet) 245 133-450 [facility] HospitalTdobqgwWRCRXQVFYV2825-94-21 10:35:00 Test Item Value Reference Range Interpretation Comments MPV (test code = MPV) 8.1 7.4-10.4 [facility] HospitalDmrlgxpSLKONNMSQM6555-52-28 10:35:00 Test Item Value Reference Range Interpretation Comments Segs (test code = Segs) 58.9 45.0-75.0 [facility] HospitalYzziqetRCJVGUJFLT7654-82-47 10:35:00 Test Item Value Reference Range Interpretation Comments Lymphocytes (test code = Lymphocytes) 29.7 20.0-40.0 [facility] HospitalMmqoalcWYZZMQPCLT1095-30-09 10:35:00 Test Item Value Reference Range Interpretation Comments Monocytes (test code = Monocytes) 8.3 2.0-12.0 [facility] HospitalQrtkgfvPERMMFZNIU6065-90-62 10:35:00 Test Item Value Reference Range Interpretation Comments Eosinophils (test code = 1.5 See_Comment [A utomated message] The Eosinophils) system which ge nerated this result tra nsmitted reference range : <=4.0. The reference r henry was not used to int erpret this result as normal/abnormal . [facility] HospitalWsobpphDAKFBDRRUQ2008-42-04 10:35:00 Test Item Value Reference Range Interpretation Comments Basophils (test code = 1.6 See_Comment [Aut omated message] The Basophils) system which ge nerated this result tra nsmitted reference range : <=1.0. The reference r henry was not used to int erpret this result as normal/abnormal . [facility] HospitalOgtuainOZXCFZVQFL6991-08-60 10:35:00 Test Item Value Reference Range Interpretation Comments Neutrophils # (test code = Neutrophils 5.0 1.5-8.1 #) [facility] HospitalEgfhvtyRAQNXYMXQE9294-72-48 10:35:00 Test Item Value Reference Range Interpretation Comments Lymphocytes # (test code = Lymphocytes 2.5 1.0-5.5 #) [facility] HospitalQrbllxzVCSJXHMCUK3271-67-09 10:35:00 Test Item Value Reference Range Interpretation Comments Monocytes # (test code 0.7 See_Comment [Aut omated message] The = Monocytes #) system which generated this result tra nsmitted reference range : <=0.8. The reference r henry was not used to int erpret this result as normal/abnormal . [facility] HospitalXmfiratOMWGCWTDAT8054-30-78 10:35:00 Test Item Value Reference Range Interpretation Comments Eosinophils # (test code 0.1 See_Comment [A utomated message] The = Eosinophils #) system whic h generated this result tra nsmitted reference range : <=0.5. The reference r henry was not used to int erpret this result as normal/abnormal . [facility] HospitalHqaghspIZYSHYGJYA0821-05-60 10:35:00 Test Item Value Reference Range Interpretation Comments Basophils # (test code 0.1 See_Comment [Aut omated message] The = Basophils #) system which generated this result tra nsmitted reference range : <=0.2. The reference r henry was not used to int erpret this result as normal/abnormal . [facility]2019-11-30 10:35:00 Test Item Value Reference Range Interpretation Comments Glucose Lvl (test code = Glucose Lvl) 254 70-99 [facility]2019-11-30 10:35:00 Test Item Value Reference Range Interpretation Comments BUN (test code = BUN) 19 7-22 [facility]2019-11-30 10:35:00 Test Item Value Reference Range Interpretation Comments Creatinine Lvl (test code = Creatinine 4.05 0.50-1.40 Lvl) [facility]2019-11-30 10:35:00 Test Item Value Reference Range Interpretation Comments Sodium Lvl (test code = Sodium Lvl) 138 135-145 [facility]2019-11-30 10:35:00 Test Item Value Reference Range Interpretation Comments Potassium Lvl (test code = Potassium 4.6 3.5-5.1 Lvl) [facility]2019-11-30 10:35:00 Test Item Value Reference Range Interpretation Comments Chloride Lvl (test code = Chloride Lvl) 102 95-109 [facility]2019-11-30 10:35:00 Test Item Value Reference Range Interpretation Comments CO2 (test code = CO2) 26 24-32 [facility]2019-11-30 10:35:00 Test Item Value Reference Range Interpretation Comments AGAP (test code = AGAP) 14.6 10.0-20.0 [facility]2019-11-30 10:35:00 Test Item Value Reference Range Interpretation Comments Calcium Lvl (test code = Calcium Lvl) 8.9 8.5-10.5 [facility]2019-11-30 10:35:00 Test Item Value Reference Range Interpretation Comments Albumin Lvl (test code = Albumin Lvl) 2.7 3.5-5.0 [facility]2019-11-30 10:35:00 Test Item Value Reference Range Interpretation Comments Phosphorus (test code = Phosphorus) 5.1 2.5-4.5 [facility]2019-11-30 10:35:00 Test Item Value Reference Range Interpretation Comments eGFR (test code = eGFR) 11 [facility] HospitalWbpbnrfLNKPZCPJLM2839-74-95 10:35:00 Test Item Value Reference Range Interpretation Comments WBC (test code = WBC) 8.5 3.7-10.4 [facility] HospitalDqajzrxCHYDGQAMBQ6040-65-80 10:35:00 Test Item Value Reference Range Interpretation Comments RBC (test code = RBC) 5.30 4.20-5.40 [facility] HospitalGocarrxNTSLGDDNUM6439-41-52 10:35:00 Test Item Value Reference Range Interpretation Comments Hgb (test code = Hgb) 13.4 12.0-16.0 [facility] HospitalSglvzrgQSJOKNXZYP7836-73-64 10:35:00 Test Item Value Reference Range Interpretation Comments Hct (test code = Hct) 42.5 36.0-48.0 [facility] HospitalFvhqhlkZNZBEAKHHT6538-45-98 10:35:00 Test Item Value Reference Range Interpretation Comments MCV (test code = MCV) 80.1 80.0-98.0 [facility] HospitalFrtgibcDZRBPLRYDQ5401-65-39 10:35:00 Test Item Value Reference Range Interpretation Comments MCH (test code = MCH) 25.3 pg 27.0-31.0 [facility] HospitalRqbdxcfRXGHFPIKHJ9892-32-23 10:35:00 Test Item Value Reference Range Interpretation Comments MCHC (test code = MCHC) 31.6 32.0-36.0 [facility] HospitalWtmqzwlHNHPDYCZHB0180-70-96 10:35:00 Test Item Value Reference Range Interpretation Comments RDW (test code = RDW) 18.2 11.5-14.5 [facility] HospitalMbetlxtIHTMXDRHMK0862-92-62 10:35:00 Test Item Value Reference Range Interpretation Comments Platelet (test code = Platelet) 245 133-450 [facility] HospitalRggvvemLWUCVKDPTD5493-54-77 10:35:00 Test Item Value Reference Range Interpretation Comments MPV (test code = MPV) 8.1 7.4-10.4 [facility] HospitalUxebtqjDFLMPGYHVN8803-87-51 10:35:00 Test Item Value Reference Range Interpretation Comments Segs (test code = Segs) 58.9 45.0-75.0 [facility] HospitalOtyznrlKUIZDBHQIZ9807-76-30 10:35:00 Test Item Value Reference Range Interpretation Comments Lymphocytes (test code = Lymphocytes) 29.7 20.0-40.0 [facility]TlherviHGXOPEKJWD1061-01-71 10:35:00 Test Item Value Reference Range Interpretation Comments Monocytes (test code = Monocytes) 8.3 2.0-12.0 [facility] HospitalExfvzqsUABLJESMYE5516-60-20 10:35:00 Test Item Value Reference Range Interpretation Comments Eosinophils (test code = 1.5 See_Comment [A utomated message] The Eosinophils) system which ge nerated this result tra nsmitted reference range : <=4.0. The reference r henry was not used to int erpret this result as normal/abnormal . [facility] HospitalCqortfkIHJSAMCZHW1790-91-37 10:35:00 Test Item Value Reference Range Interpretation Comments Basophils (test code = 1.6 See_Comment [Aut omated message] The Basophils) system which ge nerated this result tra nsmitted reference range : <=1.0. The reference r henry was not used to int erpret this result as normal/abnormal . [facility] HospitalXvaakkmYBMHXVHFJK0177-22-02 10:35:00 Test Item Value Reference Range Interpretation Comments Neutrophils # (test code = Neutrophils 5.0 1.5-8.1 #) [facility] HospitalYlgkaefRPJSZLHDTH6064-77-48 10:35:00 Test Item Value Reference Range Interpretation Comments Lymphocytes # (test code = Lymphocytes 2.5 1.0-5.5 #) [facility] HospitalOrqocreFTTRDHGQLS6097-45-89 10:35:00 Test Item Value Reference Range Interpretation Comments Monocytes # (test code 0.7 See_Comment [Aut omated message] The = Monocytes #) system which generated this result tra nsmitted reference range : <=0.8. The reference r henry was not used to int erpret this result as normal/abnormal . [facility] HospitalLiukzstKCXAMQNTHS8477-08-53 10:35:00 Test Item Value Reference Range Interpretation Comments Eosinophils # (test code 0.1 See_Comment [A utomated message] The = Eosinophils #) system whic h generated this result tra nsmitted reference range : <=0.5. The reference r henry was not used to int erpret this result as normal/abnormal . [facility] HospitalRrmdlubSHOQJFNSOR6978-05-51 10:35:00 Test Item Value Reference Range Interpretation Comments Basophils # (test code 0.1 See_Comment [Aut omated message] The = Basophils #) system which generated this result tra nsmitted reference range : <=0.2. The reference r henry was not used to int erpret this result as normal/abnormal . [facility]2019-11-30 10:35:00 Test Item Value Reference Range Interpretation Comments Glucose Lvl (test code = Glucose Lvl) 254 70-99 [facility]2019-11-30 10:35:00 Test Item Value Reference Range Interpretation Comments BUN (test code = BUN) 19 7-22 [facility]2019-11-30 10:35:00 Test Item Value Reference Range Interpretation Comments Creatinine Lvl (test code = Creatinine 4.05 0.50-1.40 Lvl) [facility]2019-11-30 10:35:00 Test Item Value Reference Range Interpretation Comments Sodium Lvl (test code = Sodium Lvl) 138 135-145 [facility]2019-11-30 10:35:00 Test Item Value Reference Range Interpretation Comments Potassium Lvl (test code = Potassium 4.6 3.5-5.1 Lvl) [facility]2019-11-30 10:35:00 Test Item Value Reference Range Interpretation Comments Chloride Lvl (test code = Chloride Lvl) 102 95-109 [facility]2019-11-30 10:35:00 Test Item Value Reference Range Interpretation Comments CO2 (test code = CO2) 26 24-32 [facility]2019-11-30 10:35:00 Test Item Value Reference Range Interpretation Comments AGAP (test code = AGAP) 14.6 10.0-20.0 [facility]2019-11-30 10:35:00 Test Item Value Reference Range Interpretation Comments Calcium Lvl (test code = Calcium Lvl) 8.9 8.5-10.5 [facility]2019-11-30 10:35:00 Test Item Value Reference Range Interpretation Comments Albumin Lvl (test code = Albumin Lvl) 2.7 3.5-5.0 [facility]2019-11-30 10:35:00 Test Item Value Reference Range Interpretation Comments Phosphorus (test code = Phosphorus) 5.1 2.5-4.5 [facility]2019-11-30 10:35:00 Test Item Value Reference Range Interpretation Comments eGFR (test code = eGFR) 11 [facility] HospitalQjgmzwxUCLEFQCVWM7182-92-99 10:35:00 Test Item Value Reference Range Interpretation Comments WBC (test code = WBC) 8.5 3.7-10.4 [facility] HospitalImywutnPWCRPHNLGA8450-02-96 10:35:00 Test Item Value Reference Range Interpretation Comments RBC (test code = RBC) 5.30 4.20-5.40 [facility] HospitalEwdbztaHENDCQJFFW3524-33-26 10:35:00 Test Item Value Reference Range Interpretation Comments Hgb (test code = Hgb) 13.4 12.0-16.0 [facility] HospitalCjkyrtyROSQOBAWZL1920-86-28 10:35:00 Test Item Value Reference Range Interpretation Comments Hct (test code = Hct) 42.5 36.0-48.0 [facility] HospitalYfcjexpEIFRUZQZXK3503-33-10 10:35:00 Test Item Value Reference Range Interpretation Comments MCV (test code = MCV) 80.1 80.0-98.0 [facility]2019-11-30 10:35:00 Test Item Value Reference Range Interpretation Comments Glucose Lvl (test code = Glucose Lvl) 254 70-99 [facility]2019-11-30 10:35:00 Test Item Value Reference Range Interpretation Comments BUN (test code = BUN) 19 7-22 [facility]2019-11-30 10:35:00 Test Item Value Reference Range Interpretation Comments Creatinine Lvl (test code = Creatinine 4.05 0.50-1.40 Lvl) [facility]RM[facility]AVMT2497-[facility]-31 10:35:00 Test Item Value Reference Range Interpretation Comments MCH (test code = MCH) 25.3 pg 27.0-31.0 [facility]2019-11-30 10:35:00 Test Item Value Reference Range Interpretation Comments Sodium Lvl (test code = Sodium Lvl) 138 135-145 [facility]2019-11-30 10:35:00 Test Item Value Reference Range Interpretation Comments Potassium Lvl (test code = Potassium 4.6 3.5-5.1 Lvl) [facility]2019-11-30 10:35:00 Test Item Value Reference Range Interpretation Comments Chloride Lvl (test code = Chloride Lvl) 102 95-109 [facility]2019-11-30 10:35:00 Test Item Value Reference Range Interpretation Comments CO2 (test code = CO2) 26 24-32 [facility]2019-11-30 10:35:00 Test Item Value Reference Range Interpretation Comments AGAP (test code = AGAP) 14.6 10.0-20.0 [facility]2019-11-30 10:35:00 Test Item Value Reference Range Interpretation Comments Calcium Lvl (test code = Calcium Lvl) 8.9 8.5-10.5 [facility]2019-11-30 10:35:00 Test Item Value Reference Range Interpretation Comments Albumin Lvl (test code = Albumin Lvl) 2.7 3.5-5.0 [facility]2019-11-30 10:35:00 Test Item Value Reference Range Interpretation Comments Phosphorus (test code = Phosphorus) 5.1 2.5-4.5 [facility]2019-11-30 10:35:00 Test Item Value Reference Range Interpretation Comments eGFR (test code = eGFR) 11 [facility] HospitalKnwodzwSRILOFXVSJ3700-84-99 10:35:00 Test Item Value Reference Range Interpretation Comments WBC (test code = WBC) 8.5 3.7-10.4 [facility] HospitalUggfvizICYQNFILYQ1791-85-94 10:35:00 Test Item Value Reference Range Interpretation Comments MCHC (test code = MCHC) 31.6 32.0-36.0 [facility] HospitalPseppynYATFGJNBUF3975-53-89 10:35:00 Test Item Value Reference Range Interpretation Comments RBC (test code = RBC) 5.30 4.20-5.40 [facility] HospitalVnaectvNHCHJPDIIM1456-21-16 10:35:00 Test Item Value Reference Range Interpretation Comments Hgb (test code = Hgb) 13.4 12.0-16.0 [facility] HospitalDypdomgCWPZEVJMFL2414-58-60 10:35:00 Test Item Value Reference Range Interpretation Comments Hct (test code = Hct) 42.5 36.0-48.0 [facility] HospitalBuwwegeQYKCGJWGDB7968-71-22 10:35:00 Test Item Value Reference Range Interpretation Comments MCV (test code = MCV) 80.1 80.0-98.0 [facility] HospitalAokqcczMQHSBYKJNU3812-98-65 10:35:00 Test Item Value Reference Range Interpretation Comments MCH (test code = MCH) 25.3 pg 27.0-31.0 [facility] HospitalDzhqmabGYJCSCZCOH2733-83-43 10:35:00 Test Item Value Reference Range Interpretation Comments MCHC (test code = MCHC) 31.6 32.0-36.0 [facility] HospitalVvbverdYLGXSXFQBI6072-89-77 10:35:00 Test Item Value Reference Range Interpretation Comments RDW (test code = RDW) 18.2 11.5-14.5 [facility] HospitalNflfxjyVSXBKAKWIE8794-48-60 10:35:00 Test Item Value Reference Range Interpretation Comments Platelet (test code = Platelet) 245 133-450 [facility] HospitalColiypeLQGECEIFOF8139-76-97 10:35:00 Test Item Value Reference Range Interpretation Comments MPV (test code = MPV) 8.1 7.4-10.4 [facility] HospitalLhuumygGCPSRYDCDO6705-48-44 10:35:00 Test Item Value Reference Range Interpretation Comments Segs (test code = Segs) 58.9 45.0-75.0 [facility] HospitalPkvahswJRGWRLUKZY9152-09-00 10:35:00 Test Item Value Reference Range Interpretation Comments RDW (test code = RDW) 18.2 11.5-14.5 [facility] HospitalFaqquzmPZONFMIRRL9421-14-05 10:35:00 Test Item Value Reference Range Interpretation Comments Lymphocytes (test code = Lymphocytes) 29.7 20.0-40.0 [facility] HospitalWdjlnnmCYIGOJQFJB6240-16-28 10:35:00 Test Item Value Reference Range Interpretation Comments Monocytes (test code = Monocytes) 8.3 2.0-12.0 [facility] HospitalHvgcmkvPSRLNWSNPL3423-44-90 10:35:00 Test Item Value Reference Range Interpretation Comments Eosinophils (test code = 1.5 See_Comment [A utomated message] The Eosinophils) system which ge nerated this result tra nsmitted reference range : <=4.0. The reference r henry was not used to int erpret this result as normal/abnormal . [facility] HospitalHvzddomIKVHCRPYII3119-41-59 10:35:00 Test Item Value Reference Range Interpretation Comments Basophils (test code = 1.6 See_Comment [Aut omated message] The Basophils) system which ge nerated this result tra nsmitted reference range : <=1.0. The reference r henry was not used to int erpret this result as normal/abnormal . [facility] HospitalBfocjedOWWXRGUKIB3659-38-59 10:35:00 Test Item Value Reference Range Interpretation Comments Neutrophils # (test code = Neutrophils 5.0 1.5-8.1 #) [facility] HospitalAruklpvYWTWXMHGAF0408-13-99 10:35:00 Test Item Value Reference Range Interpretation Comments Lymphocytes # (test code = Lymphocytes 2.5 1.0-5.5 #) [facility] HospitalLptcgnmJEQLGGTOWT8549-52-59 10:35:00 Test Item Value Reference Range Interpretation Comments Monocytes # (test code 0.7 See_Comment [Aut omated message] The = Monocytes #) system which generated this result tra nsmitted reference range : <=0.8. The reference r henry was not used to int erpret this result as normal/abnormal . [facility] HospitalCpbcujyOVEKGRFTIM5647-23-59 10:35:00 Test Item Value Reference Range Interpretation Comments Eosinophils # (test code 0.1 See_Comment [A utomated message] The = Eosinophils #) system whic h generated this result tra nsmitted reference range : <=0.5. The reference r henry was not used to int erpret this result as normal/abnormal . [facility] HospitalDygovurELUIEHQLON7477-55-13 10:35:00 Test Item Value Reference Range Interpretation Comments Basophils # (test code 0.1 See_Comment [Aut omated message] The = Basophils #) system which generated this result tra nsmitted reference range : <=0.2. The reference r henry was not used to int erpret this result as normal/abnormal . [facility] HospitalTtqcnbeMWRTVLWRUY8555-45-89 10:35:00 Test Item Value Reference Range Interpretation Comments Platelet (test code = Platelet) 245 133-450 [facility] HospitalXwzketkWRABCQQNZQ5066-00-88 10:35:00 Test Item Value Reference Range Interpretation Comments MPV (test code = MPV) 8.1 7.4-10.4 [facility] HospitalAiqwjezIYYHTVPIHT3262-82-32 10:35:00 Test Item Value Reference Range Interpretation Comments Segs (test code = Segs) 58.9 45.0-75.0 [facility] HospitalPgupgqsCINATBWKRB2004-71-35 10:35:00 Test Item Value Reference Range Interpretation Comments Lymphocytes (test code = Lymphocytes) 29.7 20.0-40.0 [facility] HospitalIrycauaABFVVBGFNC3806-87-40 10:35:00 Test Item Value Reference Range Interpretation Comments Monocytes (test code = Monocytes) 8.3 2.0-12.0 [facility] HospitalFbmamvcRPWDBKHWJK1755-19-28 10:35:00 Test Item Value Reference Range Interpretation Comments Eosinophils (test code = 1.5 See_Comment [A utomated message] The Eosinophils) system which ge nerated this result tra nsmitted reference range : <=4.0. The reference r henry was not used to int erpret this result as normal/abnormal . [facility] HospitalJrmvhxfYKJYYJTTQV9769-71-69 10:35:00 Test Item Value Reference Range Interpretation Comments Basophils (test code = 1.6 See_Comment [Aut omated message] The Basophils) system which ge nerated this result tra nsmitted reference range : <=1.0. The reference r henry was not used to int erpret this result as normal/abnormal . [facility] HospitalXlboegeRBXIFWVXZA0362-42-62 10:35:00 Test Item Value Reference Range Interpretation Comments Neutrophils # (test code = Neutrophils 5.0 1.5-8.1 #) [facility] HospitalHjdcymuVHRTQUJVXS9049-21-09 10:35:00 Test Item Value Reference Range Interpretation Comments Lymphocytes # (test code = Lymphocytes 2.5 1.0-5.5 #) [facility] HospitalPymaxpwIGXGLLKYLF5603-78-57 10:35:00 Test Item Value Reference Range Interpretation Comments Monocytes # (test code 0.7 See_Comment [Aut omated message] The = Monocytes #) system which generated this result tra nsmitted reference range : <=0.8. The reference r henry was not used to int erpret this result as normal/abnormal . [facility] HospitalJogcpluLOYTIBVRQS8756-29-17 10:35:00 Test Item Value Reference Range Interpretation Comments Eosinophils # (test code 0.1 See_Comment [A utomated message] The = Eosinophils #) system whic h generated this result tra nsmitted reference range : <=0.5. The reference r henry was not used to int erpret this result as normal/abnormal . [facility] HospitalEltrqaqXMMARDKZKE9463-62-98 10:35:00 Test Item Value Reference Range Interpretation Comments Basophils # (test code 0.1 See_Comment [Aut omated message] The = Basophils #) system which generated this result tra nsmitted reference range : <=0.2. The reference r henry was not used to int erpret this result as normal/abnormal . [facility]2019-11-30 10:35:00 Test Item Value Reference Range Interpretation Comments Glucose Lvl (test code = Glucose Lvl) 254 70-99 [facility]2019-11-30 10:35:00 Test Item Value Reference Range Interpretation Comments BUN (test code = BUN) 19 7-22 [facility]2019-11-30 10:35:00 Test Item Value Reference Range Interpretation Comments Creatinine Lvl (test code = Creatinine 4.05 0.50-1.40 Lvl) [facility]2019-11-30 10:35:00 Test Item Value Reference Range Interpretation Comments Sodium Lvl (test code = Sodium Lvl) 138 135-145 [facility]2019-11-30 10:35:00 Test Item Value Reference Range Interpretation Comments Potassium Lvl (test code = Potassium 4.6 3.5-5.1 Lvl) [place] 729219-11-30 10:35:00 Test Item Value Reference Range Interpretation Comments Chloride Lvl (test code = Chloride Lvl) 102 95-109 [facility]2019-11-30 10:35:00 Test Item Value Reference Range Interpretation Comments CO2 (test code = CO2) 26 24-32 [facility]2019-11-30 10:35:00 Test Item Value Reference Range Interpretation Comments AGAP (test code = AGAP) 14.6 10.0-20.0 [facility]2019-11-30 10:35:00 Test Item Value Reference Range Interpretation Comments Calcium Lvl (test code = Calcium Lvl) 8.9 8.5-10.5 [facility]2019-11-30 10:35:00 Test Item Value Reference Range Interpretation Comments Albumin Lvl (test code = Albumin Lvl) 2.7 3.5-5.0 [facility]2019-11-30 10:35:00 Test Item Value Reference Range Interpretation Comments Phosphorus (test code = Phosphorus) 5.1 2.5-4.5 [facility]2019-11-30 10:35:00 Test Item Value Reference Range Interpretation Comments eGFR (test code = eGFR) 11 [facility] HospitalGmvimsiLLCCZQFSWC8684-47-41 10:35:00 Test Item Value Reference Range Interpretation Comments WBC (test code = WBC) 8.5 3.7-10.4 [facility] HospitalMxjyzvxLJGPMJUDGW2705-05-92 10:35:00 Test Item Value Reference Range Interpretation Comments RBC (test code = RBC) 5.30 4.20-5.40 [facility] HospitalEnyqywdRLLXBTRTKO8842-68-76 10:35:00 Test Item Value Reference Range Interpretation Comments Hgb (test code = Hgb) 13.4 12.0-16.0 [facility] HospitalNdyfgfnSFXUORYDJB2916-60-50 10:35:00 Test Item Value Reference Range Interpretation Comments Hct (test code = Hct) 42.5 36.0-48.0 [facility] HospitalDbdvnnrOFTWSHCNQU7092-38-13 10:35:00 Test Item Value Reference Range Interpretation Comments MCV (test code = MCV) 80.1 80.0-98.0 [facility] HospitalJpthtxfREQRQZNILM4568-84-38 10:35:00 Test Item Value Reference Range Interpretation Comments MCH (test code = MCH) 25.3 pg 27.0-31.0 [facility] HospitalOgohajqNQXWMGQWBQ7251-42-94 10:35:00 Test Item Value Reference Range Interpretation Comments MCHC (test code = MCHC) 31.6 32.0-36.0 [facility] HospitalJcuhzghSLUISSOGFQ8203-49-71 10:35:00 Test Item Value Reference Range Interpretation Comments RDW (test code = RDW) 18.2 11.5-14.5 [facility] HospitalOtvnywzOIZWRWOOFG5223-65-85 10:35:00 Test Item Value Reference Range Interpretation Comments Platelet (test code = Platelet) 245 133-450 [facility] HospitalTqglnujSOYNEQJKKW3707-28-15 10:35:00 Test Item Value Reference Range Interpretation Comments MPV (test code = MPV) 8.1 7.4-10.4 [facility] HospitalVpwqsywCESAYCJXJD1083-34-34 10:35:00 Test Item Value Reference Range Interpretation Comments Segs (test code = Segs) 58.9 45.0-75.0 [facility] HospitalUyowlolJVKNASPHIG7849-70-27 10:35:00 Test Item Value Reference Range Interpretation Comments Lymphocytes (test code = Lymphocytes) 29.7 20.0-40.0 [facility] HospitalRekjdxkDKKRDIJWZH2018-33-42 10:35:00 Test Item Value Reference Range Interpretation Comments Monocytes (test code = Monocytes) 8.3 2.0-12.0 [facility] HospitalMhbifqcPGSDMUDYUW6611-45-06 10:35:00 Test Item Value Reference Range Interpretation Comments Eosinophils (test code = 1.5 See_Comment [A utomated message] The Eosinophils) system which ge nerated this result tra nsmitted reference range : <=4.0. The reference r henry was not used to int erpret this result as normal/abnormal . [facility] HospitalZoiplzwWEXPJLKNQR6486-20-20 10:35:00 Test Item Value Reference Range Interpretation Comments Basophils (test code = 1.6 See_Comment [Aut omated message] The Basophils) system which ge nerated this result tra nsmitted reference range : <=1.0. The reference r henry was not used to int erpret this result as normal/abnormal . [facility] HospitalZtyizesPJRXIHKPKT8589-87-11 10:35:00 Test Item Value Reference Range Interpretation Comments Neutrophils # (test code = Neutrophils 5.0 1.5-8.1 #) [facility] HospitalHutsrwfBKUDBBYUQN9802-34-78 10:35:00 Test Item Value Reference Range Interpretation Comments Lymphocytes # (test code = Lymphocytes 2.5 1.0-5.5 #) [facility] HospitalEkekmdwELGVQCTFDH7479-74-10 10:35:00 Test Item Value Reference Range Interpretation Comments Monocytes # (test code 0.7 See_Comment [Aut omated message] The = Monocytes #) system which generated this result tra nsmitted reference range : <=0.8. The reference r henry was not used to int erpret this result as normal/abnormal . [facility] HospitalSclwqrwZVHYURVXPX2060-19-26 10:35:00 Test Item Value Reference Range Interpretation Comments Eosinophils # (test code 0.1 See_Comment [A utomated message] The = Eosinophils #) system whic h generated this result tra nsmitted reference range : <=0.5. The reference r henry was not used to int erpret this result as normal/abnormal . [facility] HospitalZaaukrnJBWFHKBBNA3512-57-30 10:35:00 Test Item Value Reference Range Interpretation Comments Basophils # (test code 0.1 See_Comment [Aut omated message] The = Basophils #) system which generated this result tra nsmitted reference range : <=0.2. The reference r henry was not used to int erpret this result as normal/abnormal . [facility]2019-11-30 10:35:00 Test Item Value Reference Range Interpretation Comments Glucose Lvl (test code = Glucose Lvl) 254 70-99 [facility]2019-11-30 10:35:00 Test Item Value Reference Range Interpretation Comments BUN (test code = BUN) 19 7-22 [facility]2019-11-30 10:35:00 Test Item Value Reference Range Interpretation Comments Creatinine Lvl (test code = Creatinine 4.05 0.50-1.40 Lvl) [facility]2019-11-30 10:35:00 Test Item Value Reference Range Interpretation Comments Sodium Lvl (test code = Sodium Lvl) 138 135-145 [facility]2019-11-30 10:35:00 Test Item Value Reference Range Interpretation Comments Potassium Lvl (test code = Potassium 4.6 3.5-5.1 Lvl) [facility]2019-11-30 10:35:00 Test Item Value Reference Range Interpretation Comments Chloride Lvl (test code = Chloride Lvl) 102 95-109 [facility]2019-11-30 10:35:00 Test Item Value Reference Range Interpretation Comments CO2 (test code = CO2) 26 24-32 [facility]2019-11-30 10:35:00 Test Item Value Reference Range Interpretation Comments AGAP (test code = AGAP) 14.6 10.0-20.0 [facility]2019-11-30 10:35:00 Test Item Value Reference Range Interpretation Comments Calcium Lvl (test code = Calcium Lvl) 8.9 8.5-10.5 [facility]2019-11-30 10:35:00 Test Item Value Reference Range Interpretation Comments Albumin Lvl (test code = Albumin Lvl) 2.7 3.5-5.0 [facility]2019-11-30 10:35:00 Test Item Value Reference Range Interpretation Comments Phosphorus (test code = Phosphorus) 5.1 2.5-4.5 [facility]2019-11-30 10:35:00 Test Item Value Reference Range Interpretation Comments eGFR (test code = eGFR) 11 [facility] HospitalPopfubvCIGSHMGNAU1974-35-65 10:35:00 Test Item Value Reference Range Interpretation Comments WBC (test code = WBC) 8.5 3.7-10.4 [facility] HospitalFgtvhxaTXOUSGKSDT5789-73-19 10:35:00 Test Item Value Reference Range Interpretation Comments RBC (test code = RBC) 5.30 4.20-5.40 [facility] HospitalYwndvgpDUBOMRCKRP4439-37-94 10:35:00 Test Item Value Reference Range Interpretation Comments Hgb (test code = Hgb) 13.4 12.0-16.0 [facility] HospitalVegcgftAWDTQCROXD4058-70-21 10:35:00 Test Item Value Reference Range Interpretation Comments Hct (test code = Hct) 42.5 36.0-48.0 [facility] HospitalWwoeqaoMWAOWKVGIL9801-04-12 10:35:00 Test Item Value Reference Range Interpretation Comments MCV (test code = MCV) 80.1 80.0-98.0 [facility] HospitalLtnzeamSZSTNLNWCG2812-96-98 10:35:00 Test Item Value Reference Range Interpretation Comments MCH (test code = MCH) 25.3 pg 27.0-31.0 [facility] HospitalKdubfgeXQSZZDJSTB7378-33-82 10:35:00 Test Item Value Reference Range Interpretation Comments MCHC (test code = MCHC) 31.6 32.0-36.0 [facility] HospitalFkychynBGNOIMBUCN9127-69-24 10:35:00 Test Item Value Reference Range Interpretation Comments RDW (test code = RDW) 18.2 11.5-14.5 [facility] HospitalAhivlakZXNADTTLGS6470-47-78 10:35:00 Test Item Value Reference Range Interpretation Comments Platelet (test code = Platelet) 245 133-450 [facility] HospitalQonhjdvNTDVHJDGUH2585-43-74 10:35:00 Test Item Value Reference Range Interpretation Comments MPV (test code = MPV) 8.1 7.4-10.4 [facility]UktuumyIUFULZISVI6219-39-15 10:35:00 Test Item Value Reference Range Interpretation Comments Segs (test code = Segs) 58.9 45.0-75.0 [facility] HospitalFvtsxfeGAXPVXWMAI6677-52-35 10:35:00 Test Item Value Reference Range Interpretation Comments Lymphocytes (test code = Lymphocytes) 29.7 20.0-40.0 [facility] HospitalCujgoifDLWAHNCIJF3728-58-72 10:35:00 Test Item Value Reference Range Interpretation Comments Monocytes (test code = Monocytes) 8.3 2.0-12.0 [facility] HospitalDlidbfjFXTDRHCYEA8112-34-71 10:35:00 Test Item Value Reference Range Interpretation Comments Eosinophils (test code = 1.5 See_Comment [A utomated message] The Eosinophils) system which ge nerated this result tra nsmitted reference range : <=4.0. The reference r henry was not used to int erpret this result as normal/abnormal . [facility] HospitalNhsslrqPZDURKKNVZ3996-34-13 10:35:00 Test Item Value Reference Range Interpretation Comments Basophils (test code = 1.6 See_Comment [Aut omated message] The Basophils) system which ge nerated this result tra nsmitted reference range : <=1.0. The reference r henry was not used to int erpret this result as normal/abnormal . [facility] HospitalKvpvvkzJCHWZGAVAB7694-87-58 10:35:00 Test Item Value Reference Range Interpretation Comments Neutrophils # (test code = Neutrophils 5.0 1.5-8.1 #) [facility] HospitalLazjfzeKNANHEFEJU6216-94-44 10:35:00 Test Item Value Reference Range Interpretation Comments Lymphocytes # (test code = Lymphocytes 2.5 1.0-5.5 #) [facility] HospitalJiybvddLJPJPRMVCR0938-31-07 10:35:00 Test Item Value Reference Range Interpretation Comments Monocytes # (test code 0.7 See_Comment [Aut omated message] The = Monocytes #) system which generated this result tra nsmitted reference range : <=0.8. The reference r henry was not used to int erpret this result as normal/abnormal . [facility] HospitalArqbwusBVVTIZFNUG6102-91-00 10:35:00 Test Item Value Reference Range Interpretation Comments Eosinophils # (test code 0.1 See_Comment [A utomated message] The = Eosinophils #) system whic h generated this result tra nsmitted reference range : <=0.5. The reference r henry was not used to int erpret this result as normal/abnormal . [facility] HospitalOvrmurtMUJMBKZHUB7550-99-96 10:35:00 Test Item Value Reference Range Interpretation Comments Basophils # (test code 0.1 See_Comment [Aut omated message] The = Basophils #) system which generated this result tra nsmitted reference range : <=0.2. The reference r henry was not used to int erpret this result as normal/abnormal . [facility]2019-11-30 10:35:00 Test Item Value Reference Range Interpretation Comments Glucose Lvl (test code = Glucose Lvl) 254 70-99 [facility]2019-11-30 10:35:00 Test Item Value Reference Range Interpretation Comments BUN (test code = BUN) 19 7-22 [facility]2019-11-30 10:35:00 Test Item Value Reference Range Interpretation Comments Creatinine Lvl (test code = Creatinine 4.05 0.50-1.40 Lvl) [facility]2019-11-30 10:35:00 Test Item Value Reference Range Interpretation Comments Sodium Lvl (test code = Sodium Lvl) 138 135-145 [facility]2019-11-30 10:35:00 Test Item Value Reference Range Interpretation Comments Potassium Lvl (test code = Potassium 4.6 3.5-5.1 Lvl) [facility]2019-11-30 10:35:00 Test Item Value Reference Range Interpretation Comments Chloride Lvl (test code = Chloride Lvl) 102 95-109 [facility]2019-11-30 10:35:00 Test Item Value Reference Range Interpretation Comments CO2 (test code = CO2) 26 24-32 [facility]2019-11-30 10:35:00 Test Item Value Reference Range Interpretation Comments AGAP (test code = AGAP) 14.6 10.0-20.0 [facility]2019-11-30 10:35:00 Test Item Value Reference Range Interpretation Comments Calcium Lvl (test code = Calcium Lvl) 8.9 8.5-10.5 [facility]2019-11-30 10:35:00 Test Item Value Reference Range Interpretation Comments Albumin Lvl (test code = Albumin Lvl) 2.7 3.5-5.0 [facility]2019-11-30 10:35:00 Test Item Value Reference Range Interpretation Comments Phosphorus (test code = Phosphorus) 5.1 2.5-4.5 [facility]2019-11-30 10:35:00 Test Item Value Reference Range Interpretation Comments eGFR (test code = eGFR) 11 [facility] HospitalAqikkgrJKMTABDQMK0473-30-46 10:35:00 Test Item Value Reference Range Interpretation Comments WBC (test code = WBC) 8.5 3.7-10.4 [facility] HospitalGjknddcDFCODWKJCW1620-22-00 10:35:00 Test Item Value Reference Range Interpretation Comments RBC (test code = RBC) 5.30 4.20-5.40 [facility] HospitalQzvanjiLSJPCPGFHC3102-40-24 10:35:00 Test Item Value Reference Range Interpretation Comments Hgb (test code = Hgb) 13.4 12.0-16.0 [facility] HospitalPyqqdmnBCCVVZSSCP1584-17-84 10:35:00 Test Item Value Reference Range Interpretation Comments Hct (test code = Hct) 42.5 36.0-48.0 [facility] HospitalYfhmjbpTSYZBZCRQD6795-71-17 10:35:00 Test Item Value Reference Range Interpretation Comments MCV (test code = MCV) 80.1 80.0-98.0 [facility] HospitalYyqxyolKGNJYZESFZ5790-77-38 10:35:00 Test Item Value Reference Range Interpretation Comments MCH (test code = MCH) 25.3 pg 27.0-31.0 [facility] HospitalDeztejgDWQCCZYQMG3914-34-18 10:35:00 Test Item Value Reference Range Interpretation Comments MCHC (test code = MCHC) 31.6 32.0-36.0 [facility] HospitalUooaqurLSJNSQXOKY3850-66-18 10:35:00 Test Item Value Reference Range Interpretation Comments RDW (test code = RDW) 18.2 11.5-14.5 [facility] HospitalRugekyjHQZZZPLKDQ2559-70-02 10:35:00 Test Item Value Reference Range Interpretation Comments Platelet (test code = Platelet) 245 133-450 [facility] HospitalKoybphuXNBMFJVBIG0886-27-32 10:35:00 Test Item Value Reference Range Interpretation Comments MPV (test code = MPV) 8.1 7.4-10.4 [facility] HospitalWesyrcwREQRCOYHHQ8342-36-30 10:35:00 Test Item Value Reference Range Interpretation Comments Segs (test code = Segs) 58.9 45.0-75.0 [facility] HospitalGeidjhrJQTCCPPGWI5777-41-11 10:35:00 Test Item Value Reference Range Interpretation Comments Lymphocytes (test code = Lymphocytes) 29.7 20.0-40.0 [facility] HospitalQcopvlpZODBMFUHYZ7164-75-39 10:35:00 Test Item Value Reference Range Interpretation Comments Monocytes (test code = Monocytes) 8.3 2.0-12.0 [facility] HospitalJhtvoixQWUADTSUZR6345-01-32 10:35:00 Test Item Value Reference Range Interpretation Comments Eosinophils (test code = 1.5 See_Comment [A utomated message] The Eosinophils) system which ge nerated this result tra nsmitted reference range : <=4.0. The reference r henry was not used to int erpret this result as normal/abnormal . [facility] HospitalUixbesbAPIBNHODAJ7111-95-29 10:35:00 Test Item Value Reference Range Interpretation Comments Basophils (test code = 1.6 See_Comment [Aut omated message] The Basophils) system which ge nerated this result tra nsmitted reference range : <=1.0. The reference r henry was not used to int erpret this result as normal/abnormal . [facility] HospitalYfpbjwnWWCLRWXKZN6723-90-47 10:35:00 Test Item Value Reference Range Interpretation Comments Neutrophils # (test code = Neutrophils 5.0 1.5-8.1 #) [facility] HospitalKpxuorqLPTZLGJHHG7792-45-28 10:35:00 Test Item Value Reference Range Interpretation Comments Lymphocytes # (test code = Lymphocytes 2.5 1.0-5.5 #) [facility] HospitalTlfzdfeDRNQNESCYF4237-63-68 10:35:00 Test Item Value Reference Range Interpretation Comments Monocytes # (test code 0.7 See_Comment [Aut omated message] The = Monocytes #) system which generated this result tra nsmitted reference range : <=0.8. The reference r henry was not used to int erpret this result as normal/abnormal . [facility] HospitalYmkvidcFWWXTGODKF5790-36-57 10:35:00 Test Item Value Reference Range Interpretation Comments Eosinophils # (test code 0.1 See_Comment [A utomated message] The = Eosinophils #) system whic h generated this result tra nsmitted reference range : <=0.5. The reference r henry was not used to int erpret this result as normal/abnormal . [facility] HospitalUegiqlsFBZVBDAYCW2755-85-34 10:35:00 Test Item Value Reference Range Interpretation Comments Basophils # (test code 0.1 See_Comment [Aut omated message] The = Basophils #) system which generated this result tra nsmitted reference range : <=0.2. The reference r henry was not used to int erpret this result as normal/abnormal . [facility]2019-11-30 10:35:00 Test Item Value Reference Range Interpretation Comments Glucose Lvl (test code = Glucose Lvl) 254 70-99 [facility]2019-11-30 10:35:00 Test Item Value Reference Range Interpretation Comments BUN (test code = BUN) 19 7-22 [facility]2019-11-30 10:35:00 Test Item Value Reference Range Interpretation Comments Creatinine Lvl (test code = Creatinine 4.05 0.50-1.40 Lvl) [facility]2019-11-30 10:35:00 Test Item Value Reference Range Interpretation Comments Sodium Lvl (test code = Sodium Lvl) 138 135-145 [facility]2019-11-30 10:35:00 Test Item Value Reference Range Interpretation Comments Potassium Lvl (test code = Potassium 4.6 3.5-5.1 Lvl) [facility]2019-11-30 10:35:00 Test Item Value Reference Range Interpretation Comments Chloride Lvl (test code = Chloride Lvl) 102 95-109 [facility]2019-11-30 10:35:00 Test Item Value Reference Range Interpretation Comments CO2 (test code = CO2) 26 24-32 [facility]2019-11-30 10:35:00 Test Item Value Reference Range Interpretation Comments AGAP (test code = AGAP) 14.6 10.0-20.0 [facility]2019-11-30 10:35:00 Test Item Value Reference Range Interpretation Comments Calcium Lvl (test code = Calcium Lvl) 8.9 8.5-10.5 [facility]2019-11-30 10:35:00 Test Item Value Reference Range Interpretation Comments Albumin Lvl (test code = Albumin Lvl) 2.7 3.5-5.0 [facility]2019-11-30 10:35:00 Test Item Value Reference Range Interpretation Comments Phosphorus (test code = Phosphorus) 5.1 2.5-4.5 [facility]2019-11-30 10:35:00 Test Item Value Reference Range Interpretation Comments eGFR (test code = eGFR) 11 [facility] HospitalNxhtbrkZLUZVUJHJC5078-44-71 10:35:00 Test Item Value Reference Range Interpretation Comments WBC (test code = WBC) 8.5 3.7-10.4 [facility] HospitalRajhkuhIORBNVLGFZ4214-38-46 10:35:00 Test Item Value Reference Range Interpretation Comments RBC (test code = RBC) 5.30 4.20-5.40 [facility] HospitalIcverscOGVIITCCPV8341-41-28 10:35:00 Test Item Value Reference Range Interpretation Comments Hgb (test code = Hgb) 13.4 12.0-16.0 [facility] HospitalMkoycwlQORDJOPOZM8919-78-41 10:35:00 Test Item Value Reference Range Interpretation Comments Hct (test code = Hct) 42.5 36.0-48.0 [facility] HospitalWllkxlhNHXOOTCGAV3700-61-12 10:35:00 Test Item Value Reference Range Interpretation Comments MCV (test code = MCV) 80.1 80.0-98.0 [facility] HospitalVweksukYAPXAGHRJI0212-62-53 10:35:00 Test Item Value Reference Range Interpretation Comments MCH (test code = MCH) 25.3 pg 27.0-31.0 [facility] HospitalDteatvlBJRYHIZTUG8397-21-46 10:35:00 Test Item Value Reference Range Interpretation Comments MCHC (test code = MCHC) 31.6 32.0-36.0 [facility] HospitalKbhapoaWRARRLTVET0046-96-71 10:35:00 Test Item Value Reference Range Interpretation Comments RDW (test code = RDW) 18.2 11.5-14.5 [facility] HospitalMrlwmieYVFBPGZRGO3936-80-13 10:35:00 Test Item Value Reference Range Interpretation Comments Platelet (test code = Platelet) 245 133-450 [facility] HospitalRzjzbuiXOUKGCTXKT5167-37-09 10:35:00 Test Item Value Reference Range Interpretation Comments MPV (test code = MPV) 8.1 7.4-10.4 [facility] HospitalVmpjyewIBGOSDATZN7230-17-42 10:35:00 Test Item Value Reference Range Interpretation Comments Segs (test code = Segs) 58.9 45.0-75.0 [facility] HospitalAwhskozDSETYPNNZN6167-04-79 10:35:00 Test Item Value Reference Range Interpretation Comments Lymphocytes (test code = Lymphocytes) 29.7 20.0-40.0 [facility] HospitalQzhpjsoRMEUNWMCIR7596-98-59 10:35:00 Test Item Value Reference Range Interpretation Comments Monocytes (test code = Monocytes) 8.3 2.0-12.0 [facility] HospitalBncuvwxAIUZSDBJTA2484-39-94 10:35:00 Test Item Value Reference Range Interpretation Comments Eosinophils (test code = 1.5 See_Comment [A utomated message] The Eosinophils) system which ge nerated this result tra nsmitted reference range : <=4.0. The reference r henry was not used to int erpret this result as normal/abnormal . [facility] HospitalJexhsyyPYDYYNBIUE1666-48-47 10:35:00 Test Item Value Reference Range Interpretation Comments Basophils (test code = 1.6 See_Comment [Aut omated message] The Basophils) system which ge nerated this result tra nsmitted reference range : <=1.0. The reference r henry was not used to int erpret this result as normal/abnormal . [facility] HospitalOerphmjZWCQDSQAPY6809-55-11 10:35:00 Test Item Value Reference Range Interpretation Comments Neutrophils # (test code = Neutrophils 5.0 1.5-8.1 #) [facility] HospitalNqcydwrLRZCIRKUWB2344-88-60 10:35:00 Test Item Value Reference Range Interpretation Comments Lymphocytes # (test code = Lymphocytes 2.5 1.0-5.5 #) [facility] HospitalAwzoctcEAMPHOVIKP8002-51-53 10:35:00 Test Item Value Reference Range Interpretation Comments Monocytes # (test code 0.7 See_Comment [Aut omated message] The = Monocytes #) system which generated this result tra nsmitted reference range : <=0.8. The reference r henry was not used to int erpret this result as normal/abnormal . [facility] HospitalUilkqtqQKURUVVPPU5863-14-23 10:35:00 Test Item Value Reference Range Interpretation Comments Eosinophils # (test code 0.1 See_Comment [A utomated message] The = Eosinophils #) system whic h generated this result tra nsmitted reference range : <=0.5. The reference r henry was not used to int erpret this result as normal/abnormal . [facility] HospitalQxgyewsOXHTGPEQQO8022-39-99 10:35:00 Test Item Value Reference Range Interpretation Comments Basophils # (test code 0.1 See_Comment [Aut omated message] The = Basophils #) system which generated this result tra nsmitted reference range : <=0.2. The reference r henry was not used to int erpret this result as normal/abnormal . [facility]2019-11-30 10:35:00 Test Item Value Reference Range Interpretation Comments Glucose Lvl (test code = Glucose Lvl) 254 70-99 [facility]2019-11-30 10:35:00 Test Item Value Reference Range Interpretation Comments BUN (test code = BUN) 19 7-22 [facility]2019-11-30 10:35:00 Test Item Value Reference Range Interpretation Comments Creatinine Lvl (test code = Creatinine 4.05 0.50-1.40 Lvl) [facility]2019-11-30 10:35:00 Test Item Value Reference Range Interpretation Comments Sodium Lvl (test code = Sodium Lvl) 138 135-145 [facility]2019-11-30 10:35:00 Test Item Value Reference Range Interpretation Comments Potassium Lvl (test code = Potassium 4.6 3.5-5.1 Lvl) [facility]2019-11-30 10:35:00 Test Item Value Reference Range Interpretation Comments Chloride Lvl (test code = Chloride Lvl) 102 95-109 [facility]2019-11-30 10:35:00 Test Item Value Reference Range Interpretation Comments CO2 (test code = CO2) 26 24-32 [facility]2019-11-30 10:35:00 Test Item Value Reference Range Interpretation Comments AGAP (test code = AGAP) 14.6 10.0-20.0 [facility]2019-11-30 10:35:00 Test Item Value Reference Range Interpretation Comments Calcium Lvl (test code = Calcium Lvl) 8.9 8.5-10.5 [facility]2019-11-30 10:35:00 Test Item Value Reference Range Interpretation Comments Albumin Lvl (test code = Albumin Lvl) 2.7 3.5-5.0 [facility]2019-11-30 10:35:00 Test Item Value Reference Range Interpretation Comments Phosphorus (test code = Phosphorus) 5.1 2.5-4.5 [facility]2019-11-30 10:35:00 Test Item Value Reference Range Interpretation Comments eGFR (test code = eGFR) 11 [facility] HospitalDkxudsiNERYOUIXIT1545-92-59 10:35:00 Test Item Value Reference Range Interpretation Comments WBC (test code = WBC) 8.5 3.7-10.4 [facility] HospitalCxhyzoiZYEERJXFYC7484-83-12 10:35:00 Test Item Value Reference Range Interpretation Comments RBC (test code = RBC) 5.30 4.20-5.40 [facility] HospitalRhmnigdQBMVWSLDWC1715-78-36 10:35:00 Test Item Value Reference Range Interpretation Comments Hgb (test code = Hgb) 13.4 12.0-16.0 [facility] HospitalRrpvdkaMUPENCKRSG5822-23-31 10:35:00 Test Item Value Reference Range Interpretation Comments Hct (test code = Hct) 42.5 36.0-48.0 [facility] HospitalOggsvmqJCRZOZHWYL5783-52-27 10:35:00 Test Item Value Reference Range Interpretation Comments MCV (test code = MCV) 80.1 80.0-98.0 [facility] HospitalArlslcfMHYOYPJPDW7026-17-78 10:35:00 Test Item Value Reference Range Interpretation Comments MCH (test code = MCH) 25.3 pg 27.0-31.0 [facility] HospitalTpgvleyFGWETAEHIX1687-36-62 10:35:00 Test Item Value Reference Range Interpretation Comments MCHC (test code = MCHC) 31.6 32.0-36.0 [facility] HospitalNnkwecyXLEEUJXKVG2615-32-97 10:35:00 Test Item Value Reference Range Interpretation Comments RDW (test code = RDW) 18.2 11.5-14.5 [facility] HospitalHzskfdzPJBOAVUNHV9640-09-13 10:35:00 Test Item Value Reference Range Interpretation Comments Platelet (test code = Platelet) 245 133-450 [facility] HospitalMkczukfBIRMQYACMA8650-25-07 10:35:00 Test Item Value Reference Range Interpretation Comments MPV (test code = MPV) 8.1 7.4-10.4 [facility] HospitalPfalrooOJUEWFKLEA2490-40-87 10:35:00 Test Item Value Reference Range Interpretation Comments Segs (test code = Segs) 58.9 45.0-75.0 [facility] HospitalWjfhrwwLLOZGLPALT9762-02-55 10:35:00 Test Item Value Reference Range Interpretation Comments Lymphocytes (test code = Lymphocytes) 29.7 20.0-40.0 [facility] HospitalZjgzwwhSHYHRLFZCT1688-79-87 10:35:00 Test Item Value Reference Range Interpretation Comments Monocytes (test code = Monocytes) 8.3 2.0-12.0 [facility] HospitalUifxouiRLLQVZNMIO0531-94-55 10:35:00 Test Item Value Reference Range Interpretation Comments Eosinophils (test code = 1.5 See_Comment [A utomated message] The Eosinophils) system which ge nerated this result tra nsmitted reference range : <=4.0. The reference r henry was not used to int erpret this result as normal/abnormal . [facility] HospitalDjjusgyAIRAXDDBTJ4022-68-03 10:35:00 Test Item Value Reference Range Interpretation Comments Basophils (test code = 1.6 See_Comment [Aut omated message] The Basophils) system which ge nerated this result tra nsmitted reference range : <=1.0. The reference r henry was not used to int erpret this result as normal/abnormal . [facility] HospitalFhhbonmIOYPSZJFLK3550-76-85 10:35:00 Test Item Value Reference Range Interpretation Comments Neutrophils # (test code = Neutrophils 5.0 1.5-8.1 #) [facility] HospitalHyoepixGNSDITTTRD9806-80-85 10:35:00 Test Item Value Reference Range Interpretation Comments Lymphocytes # (test code = Lymphocytes 2.5 1.0-5.5 #) [facility] HospitalUypcvyzOJZFIVTZDU4736-25-19 10:35:00 Test Item Value Reference Range Interpretation Comments Monocytes # (test code 0.7 See_Comment [Aut omated message] The = Monocytes #) system which generated this result tra nsmitted reference range : <=0.8. The reference r henry was not used to int erpret this result as normal/abnormal . [facility] HospitalZfunqhlLURSYEQIGU7314-60-40 10:35:00 Test Item Value Reference Range Interpretation Comments Eosinophils # (test code 0.1 See_Comment [A utomated message] The = Eosinophils #) system whic h generated this result tra nsmitted reference range : <=0.5. The reference r henry was not used to int erpret this result as normal/abnormal . [facility] HospitalMrqrpbhCCHPTRVZFR8368-57-55 10:35:00 Test Item Value Reference Range Interpretation Comments Basophils # (test code 0.1 See_Comment [Aut omated message] The = Basophils #) system which generated this result tra nsmitted reference range : <=0.2. The reference r henry was not used to int erpret this result as normal/abnormal . [facility]2019-11-30 10:35:00 Test Item Value Reference Range Interpretation Comments Glucose Lvl (test code = Glucose Lvl) 254 70-99 [facility]2019-11-30 10:35:00 Test Item Value Reference Range Interpretation Comments BUN (test code = BUN) 19 7-22 [facility]2019-11-30 10:35:00 Test Item Value Reference Range Interpretation Comments Creatinine Lvl (test code = Creatinine 4.05 0.50-1.40 Lvl) [facility]2019-11-30 10:35:00 Test Item Value Reference Range Interpretation Comments Sodium Lvl (test code = Sodium Lvl) 138 135-145 [facility]2019-11-30 10:35:00 Test Item Value Reference Range Interpretation Comments Potassium Lvl (test code = Potassium 4.6 3.5-5.1 Lvl) [facility]2019-11-30 10:35:00 Test Item Value Reference Range Interpretation Comments Chloride Lvl (test code = Chloride Lvl) 102 95-109 [facility]2019-11-30 10:35:00 Test Item Value Reference Range Interpretation Comments CO2 (test code = CO2) 26 24-32 [facility]2019-11-30 10:35:00 Test Item Value Reference Range Interpretation Comments AGAP (test code = AGAP) 14.6 10.0-20.0 [facility]2019-11-30 10:35:00 Test Item Value Reference Range Interpretation Comments Calcium Lvl (test code = Calcium Lvl) 8.9 8.5-10.5 [facility]2019-11-30 10:35:00 Test Item Value Reference Range Interpretation Comments Albumin Lvl (test code = Albumin Lvl) 2.7 3.5-5.0 [facility]2019-11-30 10:35:00 Test Item Value Reference Range Interpretation Comments Phosphorus (test code = Phosphorus) 5.1 2.5-4.5 [facility]2019-11-30 10:35:00 Test Item Value Reference Range Interpretation Comments eGFR (test code = eGFR) 11 [facility] HospitalCjdujdcARNITWKMWX4761-75-70 10:35:00 Test Item Value Reference Range Interpretation Comments WBC (test code = WBC) 8.5 3.7-10.4 [facility] HospitalVkcycilSUNUNTQQRJ8627-89-57 10:35:00 Test Item Value Reference Range Interpretation Comments RBC (test code = RBC) 5.30 4.20-5.40 [facility] HospitalMoxrrpxIJBRWIPZKG4313-63-24 10:35:00 Test Item Value Reference Range Interpretation Comments Hgb (test code = Hgb) 13.4 12.0-16.0 [facility] HospitalHggjbcxHFXJAPQOHJ0308-36-28 10:35:00 Test Item Value Reference Range Interpretation Comments Hct (test code = Hct) 42.5 36.0-48.0 [facility] HospitalAiqmlerAYTXADJOGW0962-13-20 10:35:00 Test Item Value Reference Range Interpretation Comments MCV (test code = MCV) 80.1 80.0-98.0 [facility] HospitalPxzblprUPAKCKGASF8032-96-12 10:35:00 Test Item Value Reference Range Interpretation Comments MCH (test code = MCH) 25.3 pg 27.0-31.0 [facility] HospitalGmmllyrFOPVZXFPRN3287-45-89 10:35:00 Test Item Value Reference Range Interpretation Comments MCHC (test code = MCHC) 31.6 32.0-36.0 [place] [id number] 10:35:00 Test Item Value Reference Range Interpretation Comments RDW (test code = RDW) 18.2 11.5-14.5 [facility]LtteewqPLELYPKVJP0445-57-36 10:35:00 Test Item Value Reference Range Interpretation Comments Platelet (test code = Platelet) 245 133-450 [facility] HospitalPzwwoodNJVXZPQYJJ9494-95-36 10:35:00 Test Item Value Reference Range Interpretation Comments MPV (test code = MPV) 8.1 7.4-10.4 [facility] HospitalAzvnohnCDZYRYTSFE6569-55-49 10:35:00 Test Item Value Reference Range Interpretation Comments Segs (test code = Segs) 58.9 45.0-75.0 [facility] HospitalHlfkvkgKRBZZVCKKO5753-14-94 10:35:00 Test Item Value Reference Range Interpretation Comments Lymphocytes (test code = Lymphocytes) 29.7 20.0-40.0 [facility] HospitalJbmjbjvHRLFXDPSWW7193-88-74 10:35:00 Test Item Value Reference Range Interpretation Comments Monocytes (test code = Monocytes) 8.3 2.0-12.0 [facility] HospitalMesbbukGUGAYNAROV6591-47-30 10:35:00 Test Item Value Reference Range Interpretation Comments Eosinophils (test code = 1.5 See_Comment [A utomated message] The Eosinophils) system which ge nerated this result tra nsmitted reference range : <=4.0. The reference r henry was not used to int erpret this result as normal/abnormal . [facility] HospitalYqtklkiHPEKOXDZZZ5301-58-95 10:35:00 Test Item Value Reference Range Interpretation Comments Basophils (test code = 1.6 See_Comment [Aut omated message] The Basophils) system which ge nerated this result tra nsmitted reference range : <=1.0. The reference r henry was not used to int erpret this result as normal/abnormal . [facility] HospitalGoskmuoWXVHWZFTDJ1965-82-99 10:35:00 Test Item Value Reference Range Interpretation Comments Neutrophils # (test code = Neutrophils 5.0 1.5-8.1 #) [facility] HospitalNdugrseELVRNQAUTI0466-45-17 10:35:00 Test Item Value Reference Range Interpretation Comments Lymphocytes # (test code = Lymphocytes 2.5 1.0-5.5 #) [facility] HospitalUdqnkwhCFWLPAIVNE9069-74-34 10:35:00 Test Item Value Reference Range Interpretation Comments Monocytes # (test code 0.7 See_Comment [Aut omated message] The = Monocytes #) system which generated this result tra nsmitted reference range : <=0.8. The reference r henry was not used to int erpret this result as normal/abnormal . [facility] HospitalPxxqzfbDLUXQOJKJW4951-30-70 10:35:00 Test Item Value Reference Range Interpretation Comments Eosinophils # (test code 0.1 See_Comment [A utomated message] The = Eosinophils #) system whic h generated this result tra nsmitted reference range : <=0.5. The reference r henry was not used to int erpret this result as normal/abnormal . [facility] HospitalQjnqtwbUPJZOLVBKA3571-80-22 10:35:00 Test Item Value Reference Range Interpretation Comments Basophils # (test code 0.1 See_Comment [Aut omated message] The = Basophils #) system which generated this result tra nsmitted reference range : <=0.2. The reference r henry was not used to int erpret this result as normal/abnormal . [facility]2019-11-30 10:35:00 Test Item Value Reference Range Interpretation Comments Glucose Lvl (test code = Glucose Lvl) 254 70-99 [facility]2019-11-30 10:35:00 Test Item Value Reference Range Interpretation Comments BUN (test code = BUN) 19 7-22 [facility]2019-11-30 10:35:00 Test Item Value Reference Range Interpretation Comments Creatinine Lvl (test code = Creatinine 4.05 0.50-1.40 Lvl) [facility]2019-11-30 10:35:00 Test Item Value Reference Range Interpretation Comments Sodium Lvl (test code = Sodium Lvl) 138 135-145 [facility]2019-11-30 10:35:00 Test Item Value Reference Range Interpretation Comments Potassium Lvl (test code = Potassium 4.6 3.5-5.1 Lvl) [facility]2019-11-30 10:35:00 Test Item Value Reference Range Interpretation Comments Chloride Lvl (test code = Chloride Lvl) 102 95-109 [facility]2019-11-30 10:35:00 Test Item Value Reference Range Interpretation Comments CO2 (test code = CO2) 26 24-32 [facility]2019-11-30 10:35:00 Test Item Value Reference Range Interpretation Comments AGAP (test code = AGAP) 14.6 10.0-20.0 [facility]2019-11-30 10:35:00 Test Item Value Reference Range Interpretation Comments Calcium Lvl (test code = Calcium Lvl) 8.9 8.5-10.5 [facility]2019-11-30 10:35:00 Test Item Value Reference Range Interpretation Comments Albumin Lvl (test code = Albumin Lvl) 2.7 3.5-5.0 [facility]2019-11-30 10:35:00 Test Item Value Reference Range Interpretation Comments Phosphorus (test code = Phosphorus) 5.1 2.5-4.5 [facility]2019-11-30 10:35:00 Test Item Value Reference Range Interpretation Comments eGFR (test code = eGFR) 11 [facility] HospitalApyuudlZLKHDDMNQE4292-92-39 10:35:00 Test Item Value Reference Range Interpretation Comments WBC (test code = WBC) 8.5 3.7-10.4 [facility] HospitalNtzbindPVGXQSKJRA5175-63-58 10:35:00 Test Item Value Reference Range Interpretation Comments RBC (test code = RBC) 5.30 4.20-5.40 [facility] HospitalVcdbvnkPNSSRAUAYW3731-91-62 10:35:00 Test Item Value Reference Range Interpretation Comments Hgb (test code = Hgb) 13.4 12.0-16.0 [facility] HospitalVacusquBTPMRQCTIA1364-65-06 10:35:00 Test Item Value Reference Range Interpretation Comments Hct (test code = Hct) 42.5 36.0-48.0 [facility] HospitalNrkcxpcMGHVUPEWVT2876-71-96 10:35:00 Test Item Value Reference Range Interpretation Comments MCV (test code = MCV) 80.1 80.0-98.0 [facility] HospitalHdkuwmjLPPLQWQFHO6803-94-09 10:35:00 Test Item Value Reference Range Interpretation Comments MCH (test code = MCH) 25.3 pg 27.0-31.0 [facility] HospitalTrjhmiiFMFPXBIGZM6611-77-58 10:35:00 Test Item Value Reference Range Interpretation Comments MCHC (test code = MCHC) 31.6 32.0-36.0 [facility] HospitalSirwaxcXFIXGLXBIV5207-03-08 10:35:00 Test Item Value Reference Range Interpretation Comments RDW (test code = RDW) 18.2 11.5-14.5 [facility] HospitalDtqcsvxMRDKZUDQFP1815-84-15 10:35:00 Test Item Value Reference Range Interpretation Comments Platelet (test code = Platelet) 245 133-450 [facility] HospitalNgwprobFRVXLJCIPZ6166-05-23 10:35:00 Test Item Value Reference Range Interpretation Comments MPV (test code = MPV) 8.1 7.4-10.4 [facility] HospitalNmtgwsuTDRRBLYJDE0252-32-34 10:35:00 Test Item Value Reference Range Interpretation Comments Segs (test code = Segs) 58.9 45.0-75.0 [facility] HospitalXdtbriuUIPEBAYSVC1361-07-45 10:35:00 Test Item Value Reference Range Interpretation Comments Lymphocytes (test code = Lymphocytes) 29.7 20.0-40.0 [facility] HospitalVzybiucJMQKCTKDZZ6468-03-14 10:35:00 Test Item Value Reference Range Interpretation Comments Monocytes (test code = Monocytes) 8.3 2.0-12.0 [facility] HospitalFnejsstHRSGLSUXGZ4562-95-44 10:35:00 Test Item Value Reference Range Interpretation Comments Eosinophils (test code = 1.5 See_Comment [A utomated message] The Eosinophils) system which ge nerated this result tra nsmitted reference range : <=4.0. The reference r henry was not used to int erpret this result as normal/abnormal . [facility] HospitalMiwmoclGXWCYCKBYV1047-78-09 10:35:00 Test Item Value Reference Range Interpretation Comments Basophils (test code = 1.6 See_Comment [Aut omated message] The Basophils) system which ge nerated this result tra nsmitted reference range : <=1.0. The reference r henry was not used to int erpret this result as normal/abnormal . [facility] HospitalTlzdvqxBLSWNXQDNX4856-21-00 10:35:00 Test Item Value Reference Range Interpretation Comments Neutrophils # (test code = Neutrophils 5.0 1.5-8.1 #) [facility] HospitalOhjflhyDEDVNJWHPH5175-69-32 10:35:00 Test Item Value Reference Range Interpretation Comments Lymphocytes # (test code = Lymphocytes 2.5 1.0-5.5 #) [facility] HospitalVaxvuwgHWUBXCBMIM8177-74-58 10:35:00 Test Item Value Reference Range Interpretation Comments Monocytes # (test code 0.7 See_Comment [Aut omated message] The = Monocytes #) system which generated this result tra nsmitted reference range : <=0.8. The reference r henry was not used to int erpret this result as normal/abnormal . [facility] HospitalOpexoveJARXXJOAMO0285-84-45 10:35:00 Test Item Value Reference Range Interpretation Comments Eosinophils # (test code 0.1 See_Comment [A utomated message] The = Eosinophils #) system whic h generated this result tra nsmitted reference range : <=0.5. The reference r henry was not used to int erpret this result as normal/abnormal . [facility] HospitalWinkeakTJFYBMCNCP1036-64-47 10:35:00 Test Item Value Reference Range Interpretation Comments Basophils # (test code 0.1 See_Comment [Aut omated message] The = Basophils #) system which generated this result tra nsmitted reference range : <=0.2. The reference r henry was not used to int erpret this result as normal/abnormal . [facility]2019-11-30 10:35:00 Test Item Value Reference Range Interpretation Comments Glucose Lvl (test code = Glucose Lvl) 254 70-99 [facility]2019-11-30 10:35:00 Test Item Value Reference Range Interpretation Comments BUN (test code = BUN) 19 7-22 [facility]2019-11-30 10:35:00 Test Item Value Reference Range Interpretation Comments Creatinine Lvl (test code = Creatinine 4.05 0.50-1.40 Lvl) [facility]2019-11-30 10:35:00 Test Item Value Reference Range Interpretation Comments Sodium Lvl (test code = Sodium Lvl) 138 135-145 [facility]2019-11-30 10:35:00 Test Item Value Reference Range Interpretation Comments Potassium Lvl (test code = Potassium 4.6 3.5-5.1 Lvl) [facility]2019-11-30 10:35:00 Test Item Value Reference Range Interpretation Comments Chloride Lvl (test code = Chloride Lvl) 102 95-109 [facility]2019-11-30 10:35:00 Test Item Value Reference Range Interpretation Comments CO2 (test code = CO2) 26 24-32 [facility]2019-11-30 10:35:00 Test Item Value Reference Range Interpretation Comments AGAP (test code = AGAP) 14.6 10.0-20.0 [facility]2019-11-30 10:35:00 Test Item Value Reference Range Interpretation Comments Calcium Lvl (test code = Calcium Lvl) 8.9 8.5-10.5 [facility]2019-11-30 10:35:00 Test Item Value Reference Range Interpretation Comments Albumin Lvl (test code = Albumin Lvl) 2.7 3.5-5.0 [facility]2019-11-30 10:35:00 Test Item Value Reference Range Interpretation Comments Phosphorus (test code = Phosphorus) 5.1 2.5-4.5 [facility]2019-11-30 10:35:00 Test Item Value Reference Range Interpretation Comments eGFR (test code = eGFR) 11 [facility] HospitalBsiapapFZGQLNZEBF6831-80-75 10:35:00 Test Item Value Reference Range Interpretation Comments WBC (test code = WBC) 8.5 3.7-10.4 [facility] HospitalIrqpakvQMUHMGFFUD6125-06-43 10:35:00 Test Item Value Reference Range Interpretation Comments RBC (test code = RBC) 5.30 4.20-5.40 [facility] HospitalPbciofeCYRYJSPADA8704-47-51 10:35:00 Test Item Value Reference Range Interpretation Comments Hgb (test code = Hgb) 13.4 12.0-16.0 [facility] HospitalPusmeohRAXZIXOBSA3125-64-44 10:35:00 Test Item Value Reference Range Interpretation Comments Hct (test code = Hct) 42.5 36.0-48.0 [facility] HospitalYmjtfdeNAFTCHPSTT6520-99-02 10:35:00 Test Item Value Reference Range Interpretation Comments MCV (test code = MCV) 80.1 80.0-98.0 [facility] HospitalGinntnxYWFXOGLKGL3652-04-07 10:35:00 Test Item Value Reference Range Interpretation Comments MCH (test code = MCH) 25.3 pg 27.0-31.0 [facility] HospitalXwkzbvePYZMMLQKLQ6425-35-81 10:35:00 Test Item Value Reference Range Interpretation Comments MCHC (test code = MCHC) 31.6 32.0-36.0 [facility] HospitalZoaocaqQJOLXHGZUR4813-47-82 10:35:00 Test Item Value Reference Range Interpretation Comments RDW (test code = RDW) 18.2 11.5-14.5 [facility] HospitalQpglekwBMFSRCXMFX9535-99-08 10:35:00 Test Item Value Reference Range Interpretation Comments Platelet (test code = Platelet) 245 133-450 [facility] HospitalOfdaflsIAHMPNFXCK6826-73-09 10:35:00 Test Item Value Reference Range Interpretation Comments MPV (test code = MPV) 8.1 7.4-10.4 [facility] HospitalEltywtwWLMHPHLJJI4985-82-39 10:35:00 Test Item Value Reference Range Interpretation Comments Segs (test code = Segs) 58.9 45.0-75.0 [facility] HospitalDiaqciuYYWDNCIXWU2655-06-73 10:35:00 Test Item Value Reference Range Interpretation Comments Lymphocytes (test code = Lymphocytes) 29.7 20.0-40.0 [facility] HospitalNmgvrxhQRYETLEOOZ4250-82-85 10:35:00 Test Item Value Reference Range Interpretation Comments Monocytes (test code = Monocytes) 8.3 2.0-12.0 [facility] HospitalQfgqpnnANFIVDSDRP9853-46-31 10:35:00 Test Item Value Reference Range Interpretation Comments Eosinophils (test code = Eosinophils) 1.5 <=4.0 [facility] HospitalTbdpayoCHOMWPUTMS2091-29-60 10:35:00 Test Item Value Reference Range Interpretation Comments Basophils (test code = Basophils) 1.6 <=1.0 [facility] HospitalEagiinaUYJDETCZXX3238-67-91 10:35:00 Test Item Value Reference Range Interpretation Comments Neutrophils # (test code = Neutrophils 5.0 1.5-8.1 #) [facility] HospitalKqjhntvPUKLAZFJAN5209-11-71 10:35:00 Test Item Value Reference Range Interpretation Comments Lymphocytes # (test code = Lymphocytes 2.5 1.0-5.5 #) [facility] HospitalPwdppwyWKTWDHAGIT2161-10-71 10:35:00 Test Item Value Reference Range Interpretation Comments Monocytes # (test code = Monocytes #) 0.7 <=0.8 [facility] HospitalCcafegcTFJGBYIRPG4910-77-76 10:35:00 Test Item Value Reference Range Interpretation Comments Eosinophils # (test code = Eosinophils 0.1 <=0.5 #) [facility] HospitalMptbhqxRGVFREXVXI5799-54-38 10:35:00 Test Item Value Reference Range Interpretation Comments Basophils # (test code = Basophils #) 0.1 <=0.2 [facility] [id number] 01:40:00 Test Item Value Reference Range Interpretation Comments MRSA by PCR (test Negative (10/23/19 7:40 code = MRSA by PCR) PM[facility]EuzjixsOSKNBAYOIP8723-56-22 01:40:00 Test Item Value Reference Range Interpretation Comments Hep Bs Ab (test code = Hep Bs Ab) no [facility] [id number] 01:40:00 Test Item Value Reference Range Interpretation Comments MRSA by PCR (test Negative (10/23/19 7:40 code = MRSA by PCR) PM) [facility] CenterJesvumxHWLSEPBTEY9310-04-35 01:40:00 Test Item Value Reference Range Interpretation Comments Hep Bs Ab (test code = Hep Bs Ab) no [facility] [id number] 01:40:00 Test Item Value Reference Range Interpretation Comments MRSA by PCR (test Negative (10/23/19 7:40 code = MRSA by PCR) PM) [facility] CenterLbbkjyxWZOTWJFALV2804-07-79 01:40:00 Test Item Value Reference Range Interpretation Comments Hep Bs Ab (test code = Hep Bs Ab) no [facility] [id number] 01:40:00 Test Item Value Reference Range Interpretation Comments MRSA by PCR (test Negative (10/23/19 7:40 code = MRSA by PCR) PM) [facility] CenterBrhuniuJOFCIUCJWY1307-84-03 01:40:00 Test Item Value Reference Range Interpretation Comments Hep Bs Ab (test code = Hep Bs Ab) no [facility] [id number] 01:40:00 Test Item Value Reference Range Interpretation Comments MRSA by PCR (test Negative (10/23/19 7:40 code = MRSA by PCR) PM) [facility] CenterEoadnpuQVVTFACRAV6397-11-75 01:40:00 Test Item Value Reference Range Interpretation Comments Hep Bs Ab (test code = Hep Bs Ab) no [facility] [id number] 01:40:00 Test Item Value Reference Range Interpretation Comments MRSA by PCR (test Negative (10/23/19 7:40 code = MRSA by PCR) PM) [facility] CenterJpnppwbDIYOKJKEBU6012-08-01 01:40:00 Test Item Value Reference Range Interpretation Comments Hep Bs Ab (test code = Hep Bs Ab) no [facility] - [id number] 01:40:00 Test Item Value Reference Range Interpretation Comments MRSA by PCR (test Negative (10/23/19 7:40 code = MRSA by PCR) PM) [facility] CenterOnxkknaHCZCTITJWZ6664-98-01 01:40:00 Test Item Value Reference Range Interpretation Comments Hep Bs Ab (test code = Hep Bs Ab) no [facility] [id number] 01:40:00 Test Item Value Reference Range Interpretation Comments MRSA by PCR (test Negative (10/23/19 7:40 code = MRSA by PCR) PM) [facility] CenterDqajqixHQWVWZZFCR5388-71-38 01:40:00 Test Item Value Reference Range Interpretation Comments Hep Bs Ab (test code = Hep Bs Ab) no [facility] [id number] 01:40:00 Test Item Value Reference Range Interpretation Comments MRSA by PCR (test Negative (10/23/19 7:40 code = MRSA by PCR) PM) [facility] CenterTdfygedURTYGHNWXA8299-27-37 01:40:00 Test Item Value Reference Range Interpretation Comments Hep Bs Ab (test code = Hep Bs Ab) no [facility] - [id number] 01:40:00 Test Item Value Reference Range Interpretation Comments MRSA by PCR (test Negative (10/23/19 7:40 code = MRSA by PCR) PM) [facility] CenterLtdketxFQYQJUOIYQ3352-03-15 01:40:00 Test Item Value Reference Range Interpretation Comments Hep Bs Ab (test code = Hep Bs Ab) no [facility] - [id number] 01:40:00 Test Item Value Reference Range Interpretation Comments MRSA by PCR (test Negative (10/23/19 7:40 code = MRSA by PCR) PM) [facility]uywwvgWUTOTAHBQM5626-40-43 01:40:00 Test Item Value Reference Range Interpretation Comments Hep Bs Ab (test code = Hep Bs Ab) no [facility] - [id number] 01:40:00 Test Item Value Reference Range Interpretation Comments MRSA by PCR (test Negative (10/23/19 7:40 code = MRSA by PCR) PM[facility]TGXLNTKQYZ7191-61-38 01:40:00 Test Item Value Reference Range Interpretation Comments Hep Bs Ab (test code = Hep Bs Ab) no [facility] CenterQqhotwhGCQDFQBOUP7725-84-02 23:51:00 Test Item Value Reference Range Interpretation Comments Hep Bs Ag (test code Negative *NA*(10/23/19 = Hep Bs Ag) 5:51 PM) [facility] CenterItoisejWSVBIYQHXI8947-31-21 23:51:00 Test Item Value Reference Range Interpretation Comments Hep Bs Ag (test code Negative *NA*(10/23/19 = Hep Bs Ag) 5:51 PM) [facility] CenterQpqepbkBYGUGLAESN9663-02-30 23:51:00 Test Item Value Reference Range Interpretation Comments Hep Bs Ag (test code Negative *NA*(10/23/19 = Hep Bs Ag) 5:51 PM) [facility] CenterPxcllalAKWCGXSDJJ5709-40-66 23:51:00 Test Item Value Reference Range Interpretation Comments Hep Bs Ag (test code Negative *NA*(10/23/19 = Hep Bs Ag) 5:51 PM) [facility] CenterBpclyhqDZUZLNNRNA0884-01-64 23:51:00 Test Item Value Reference Range Interpretation Comments Hep Bs Ag (test code Negative *NA*(10/23/19 = Hep Bs Ag) 5:51 PM) [facility] CenterHlatqrhCXCCBWPZIJ3753-43-25 23:51:00 Test Item Value Reference Range Interpretation Comments Hep Bs Ag (test code Negative *NA*(10/23/19 = Hep Bs Ag) 5:51 PM) [facility] CenterDauwtqeTBMWCXBAKN4648-12-89 23:51:00 Test Item Value Reference Range Interpretation Comments Hep Bs Ag (test code Negative *NA*(10/23/19 = Hep Bs Ag) 5:51 PM) [facility] CenterOvtygfrMVVDIUDLIE8509-09-96 23:51:00 Test Item Value Reference Range Interpretation Comments Hep Bs Ag (test code Negative *NA*(10/23/19 = Hep Bs Ag) 5:51 PM) [facility]UjbsjndQPMCZBYWUK1945-98-80 23:51:00 Test Item Value Reference Range Interpretation Comments Hep Bs Ag (test code Negative *NA*(10/23/19 = Hep Bs Ag) 5:51 PM) [facility] CenterPvucxjzDUTOBCSNJX9462-26-50 23:51:00 Test Item Value Reference Range Interpretation Comments Hep Bs Ag (test code Negative *NA*(10/23/19 = Hep Bs Ag) 5:51 PM) [facility] CenterVfyvaqcXWUUSGFQHV6581-50-23 23:51:00 Test Item Value Reference Range Interpretation Comments Hep Bs Ag (test code Negative *NA*(10/23/19 = Hep Bs Ag) 5:51 PM) [facility] CenterBdhpwtdIISZSWTCHW6416-54-58 23:51:00 Test Item Value Reference Range Interpretation Comments Hep Bs Ag (test code Negative *NA*(10/23/19 = Hep Bs Ag) 5:51 PM) [facility]2019-11-29 18:04:00 Test Item Value Reference Range Interpretation Comments Source Respiratory Nasophrngl Swb Panel PCR (test code = *NA*(10/23/19 12:04 Source Respiratory PM) Panel PCR) [facility]2019-11-29 18:04:00 Test Item Value Reference Range Interpretation Comments Influenza A PCR (test Negative *NA*(10/23/19 code = Influenza A PCR) 12:04 PM) [facility]2019-11-29 18:04:00 Test Item Value Reference Range Interpretation Comments Influenza B PCR (test Negative *NA*(10/23/19 code = Influenza B PCR) 12:04 PM) [facility]2019-11-29 18:04:00 Test Item Value Reference Range Interpretation Comments RSV PCR (test code = Negative *NA*(10/23/19 RSV PCR) 12:04 PM) [facility]2019-11-29 18:04:00 Test Item Value Reference Range Interpretation Comments Source Respiratory Nasophrngl Swb Panel PCR (test code = *NA*(10/23/19 12:04 Source Respiratory PM) Panel PCR) [facility]2019-11-29 18:04:00 Test Item Value Reference Range Interpretation Comments Influenza A PCR (test Negative *NA*(10/23/19 code = Influenza A PCR) 12:04 PM) [facility]2019-11-29 18:04:00 Test Item Value Reference Range Interpretation Comments Influenza B PCR (test Negative *NA*(10/23/19 code = Influenza B PCR) 12:04 PM) [facility]2019-11-29 18:04:00 Test Item Value Reference Range Interpretation Comments RSV PCR (test code = Negative *NA*(10/23/19 RSV PCR) 12:04 PM) [facility]2019-11-29 18:04:00 Test Item Value Reference Range Interpretation Comments Source Respiratory Nasophrngl Swb Panel PCR (test code = *NA*(10/23/19 12:04 Source Respiratory PM) Panel PCR) [facility]2019-11-29 18:04:00 Test Item Value Reference Range Interpretation Comments Influenza A PCR (test Negative *NA*(10/23/19 code = Influenza A PCR) 12:04 PM) [facility]2019-11-29 18:04:00 Test Item Value Reference Range Interpretation Comments Influenza B PCR (test Negative *NA*(10/23/19 code = Influenza B PCR) 12:04 PM) [facility]2019-11-29 18:04:00 Test Item Value Reference Range Interpretation Comments RSV PCR (test code = Negative *NA*(10/23/19 RSV PCR) 12:04 PM) [facility]2019-11-29 18:04:00 Test Item Value Reference Range Interpretation Comments Source Respiratory Nasophrngl Swb Panel PCR (test code = *NA*(10/23/19 12:04 Source Respiratory PM) Panel PCR) [facility]2019-11-29 18:04:00 Test Item Value Reference Range Interpretation Comments Influenza A PCR (test Negative *NA*(10/23/19 code = Influenza A PCR) 12:04 PM) [facility] [place]2019-11-29 18:04:00 Test Item Value Reference Range Interpretation Comments Influenza B PCR (test Negative *NA*(10/23/19 code = Influenza B PCR) 12:04 PM) [facility] [place]2019-11-29 18:04:00 Test Item Value Reference Range Interpretation Comments RSV PCR (test code = Negative *NA*(10/23/19 RSV PCR) 12:04 PM) [facility] [place]2019-11-29 18:04:00 Test Item Value Reference Range Interpretation Comments Source Respiratory Nasophrngl Swb Panel PCR (test code = *NA*(10/23/19 12:04 Source Respiratory PM) Panel PCR) [facility] [place]2019-11-29 18:04:00 Test Item Value Reference Range Interpretation Comments Influenza A PCR (test Negative *NA*(10/23/19 code = Influenza A PCR) 12:04 PM) [facility] [place]2019-11-29 18:04:00 Test Item Value Reference Range Interpretation Comments Influenza B PCR (test Negative *NA*(10/23/19 code = Influenza B PCR) 12:04 PM) [facility] [place]2019-11-29 18:04:00 Test Item Value Reference Range Interpretation Comments RSV PCR (test code = Negative *NA*(10/23/19 RSV PCR) 12:04 PM) [facility] [place]2019-11-29 18:04:00 Test Item Value Reference Range Interpretation Comments Source Respiratory Nasophrngl Swb Panel PCR (test code = *NA*(10/23/19 12:04 Source Respiratory PM) Panel PCR) [facility] [place]2019-11-29 18:04:00 Test Item Value Reference Range Interpretation Comments Influenza A PCR (test Negative *NA*(10/23/19 code = Influenza A PCR) 12:04 PM) [facility] [place]2019-11-29 18:04:00 Test Item Value Reference Range Interpretation Comments Influenza B PCR (test Negative *NA*(10/23/19 code = Influenza B PCR) 12:04 PM) [facility] [place]2019-11-29 18:04:00 Test Item Value Reference Range Interpretation Comments RSV PCR (test code = Negative *NA*(10/23/19 RSV PCR) 12:04 PM) [facility] [place]2019-11-29 18:04:00 Test Item Value Reference Range Interpretation Comments Source Respiratory Nasophrngl Swb Panel PCR (test code = *NA*(10/23/19 12:04 Source Respiratory PM) Panel PCR) [facility] [place]2019-11-29 18:04:00 Test Item Value Reference Range Interpretation Comments Influenza A PCR (test Negative *NA*(10/23/19 code = Influenza A PCR) 12:04 PM) [facility] [place]2019-11-29 18:04:00 Test Item Value Reference Range Interpretation Comments Influenza B PCR (test Negative *NA*(10/23/19 code = Influenza B PCR) 12:04 PM) [facility] [place]2019-11-29 18:04:00 Test Item Value Reference Range Interpretation Comments RSV PCR (test code = Negative *NA*(10/23/19 RSV PCR) 12:04 PM) [facility] [place]2019-11-29 18:04:00 Test Item Value Reference Range Interpretation Comments Source Respiratory Nasophrngl Swb Panel PCR (test code = *NA*(10/23/19 12:04 Source Respiratory PM) Panel PCR) [facility] [place]2019-11-29 18:04:00 Test Item Value Reference Range Interpretation Comments Influenza A PCR (test Negative *NA*(10/23/19 code = Influenza A PCR) 12:04 PM) [facility] [place]2019-11-29 18:04:00 Test Item Value Reference Range Interpretation Comments Influenza B PCR (test Negative *NA*(10/23/19 code = Influenza B PCR) 12:04 PM) [facility] [place]2019-11-29 18:04:00 Test Item Value Reference Range Interpretation Comments RSV PCR (test code = Negative *NA*(10/23/19 RSV PCR) 12:04 PM) [facility] [place]2019-11-29 18:04:00 Test Item Value Reference Range Interpretation Comments Source Respiratory Nasophrngl Swb Panel PCR (test code = *NA*(10/23/19 12:04 Source Respiratory PM) Panel PCR) [facility] [place]2019-11-29 18:04:00 Test Item Value Reference Range Interpretation Comments Influenza A PCR (test Negative *NA*(10/23/19 code = Influenza A PCR) 12:04 PM) [facility] [place]2019-11-29 18:04:00 Test Item Value Reference Range Interpretation Comments Influenza B PCR (test Negative *NA*(10/23/19 code = Influenza B PCR) 12:04 PM) [facility] [place]2019-11-29 18:04:00 Test Item Value Reference Range Interpretation Comments RSV PCR (test code = Negative *NA*(10/23/19 RSV PCR) 12:04 PM) [facility] [place]2019-11-29 18:04:00 Test Item Value Reference Range Interpretation Comments Source Respiratory Nasophrngl Swb Panel PCR (test code = *NA*(10/23/19 12:04 Source Respiratory PM) Panel PCR) [facility] [place]2019-11-29 18:04:00 Test Item Value Reference Range Interpretation Comments Influenza A PCR (test Negative *NA*(10/23/19 code = Influenza A PCR) 12:04 PM) [facility] [place]2019-11-29 18:04:00 Test Item Value Reference Range Interpretation Comments Influenza B PCR (test Negative *NA*(10/23/19 code = Influenza B PCR) 12:04 PM) [facility] [place]2019-11-29 18:04:00 Test Item Value Reference Range Interpretation Comments RSV PCR (test code = Negative *NA*(10/23/19 RSV PCR) 12:04 PM) [facility] [place]2019-11-29 18:04:00 Test Item Value Reference Range Interpretation Comments Source Respiratory Nasophrngl Swb Panel PCR (test code = *NA*(10/23/19 12:04 Source Respiratory PM) Panel PCR) [facility] [place]2019-11-29 18:04:00 Test Item Value Reference Range Interpretation Comments Influenza A PCR (test Negative *NA*(10/23/19 code = Influenza A PCR) 12:04 PM) [facility] [place]2019-11-29 18:04:00 Test Item Value Reference Range Interpretation Comments Influenza B PCR (test Negative *NA*(10/23/19 code = Influenza B PCR) 12:04 PM) [facility] [place]2019-11-29 18:04:00 Test Item Value Reference Range Interpretation Comments RSV PCR (test code = Negative *NA*(10/23/19 RSV PCR) 12:04 PM) [facility] [place]2019-11-29 18:04:00 Test Item Value Reference Range Interpretation Comments Source Respiratory Nasophrngl Swb Panel PCR (test code = *NA*(10/23/19 12:04 Source Respiratory PM) Panel PCR) [facility] [place]2019-11-29 18:04:00 Test Item Value Reference Range Interpretation Comments Influenza A PCR (test Negative *NA*(10/23/19 code = Influenza A PCR) 12:04 PM) [facility] [id number] 18:04:00 Test Item Value Reference Range Interpretation Comments Influenza B PCR (test Negative *NA*(10/23/19 code = Influenza B PCR) 12:04 PM) [facility] [place]2019-11-29 18:04:00 Test Item Value Reference Range Interpretation Comments RSV PCR (test code = Negative *NA*(10/23/19 RSV PCR) 12:04 PM) [facility] [id number] 17:18:00 Test Item Value Reference Range Interpretation Comments Magnesium Lvl (test code = Magnesium 2.1 1.8-2.4 Lvl) [facility]2019-11-29 17:18:00 Test Item Value Reference Range Interpretation Comments Hgb A1C (test code = Hgb A1C) 7.7 [facility]2019-11-29 17:18:00 Test Item Value Reference Range Interpretation Comments Magnesium Lvl (test code = Magnesium 2.1 1.8-2.4 Lvl) [facility]2019-11-29 17:18:00 Test Item Value Reference Range Interpretation Comments Hgb A1C (test code = Hgb A1C) 7.7 [facility]2019-11-29 17:18:00 Test Item Value Reference Range Interpretation Comments Magnesium Lvl (test code = Magnesium 2.1 1.8-2.4 Lvl) [facility]2019-11-29 17:18:00 Test Item Value Reference Range Interpretation Comments Hgb A1C (test code = Hgb A1C) 7.7 [facility]2019-11-29 17:18:00 Test Item Value Reference Range Interpretation Comments Magnesium Lvl (test code = Magnesium 2.1 1.8-2.4 Lvl) [facility]2019-11-29 17:18:00 Test Item Value Reference Range Interpretation Comments Hgb A1C (test code = Hgb A1C) 7.7 [facility]2019-11-29 17:18:00 Test Item Value Reference Range Interpretation Comments Magnesium Lvl (test code = Magnesium 2.1 1.8-2.4 Lvl) [facility]2019-11-29 17:18:00 Test Item Value Reference Range Interpretation Comments Hgb A1C (test code = Hgb A1C) 7.7 [facility]2019-11-29 17:18:00 Test Item Value Reference Range Interpretation Comments Magnesium Lvl (test code = Magnesium 2.1 1.8-2.4 Lvl) [facility]2019-11-29 17:18:00 Test Item Value Reference Range Interpretation Comments Hgb A1C (test code = Hgb A1C) 7.7 [facility]2019-11-29 17:18:00 Test Item Value Reference Range Interpretation Comments Magnesium Lvl (test code = Magnesium 2.1 1.8-2.4 Lvl) [facility]2019-11-29 17:18:00 Test Item Value Reference Range Interpretation Comments Hgb A1C (test code = Hgb A1C) 7.7 [facility]2019-11-29 17:18:00 Test Item Value Reference Range Interpretation Comments Magnesium Lvl (test code = Magnesium 2.1 1.8-2.4 Lvl) [facility]2019-11-29 17:18:00 Test Item Value Reference Range Interpretation Comments Hgb A1C (test code = Hgb A1C) 7.7 [facility]2019-11-29 17:18:00 Test Item Value Reference Range Interpretation Comments Magnesium Lvl (test code = Magnesium 2.1 1.8-2.4 Lvl) [facility]2019-11-29 17:18:00 Test Item Value Reference Range Interpretation Comments Hgb A1C (test code = Hgb A1C) 7.7 [facility]2019-11-29 17:18:00 Test Item Value Reference Range Interpretation Comments Magnesium Lvl (test code = Magnesium 2.1 1.8-2.4 Lvl) [facility]2019-11-29 17:18:00 Test Item Value Reference Range Interpretation Comments Hgb A1C (test code = Hgb A1C) 7.7 [facility]2019-11-29 17:18:00 Test Item Value Reference Range Interpretation Comments Magnesium Lvl (test code = Magnesium 2.1 1.8-2.4 Lvl) [facility] [id number] 17:18:00 Test Item Value Reference Range Interpretation Comments Hgb A1C (test code = Hgb A1C) 7.7 [facility] [id number] 17:18:00 Test Item Value Reference Range Interpretation Comments Magnesium Lvl (test code = Magnesium 2.1 1.8-2.4 Lvl) [facility] [id number] 17:18:00 Test Item Value Reference Range Interpretation Comments Hgb A1C (test code = Hgb A1C) 7.7 [facility] [id number] 10:41:00 Test Item Value Reference Range Interpretation Comments U Amph Scr (test code Negative *NA*(10/23/19 = U Amph Scr) 4:41 AM) [facility] [id number] 10:41:00 Test Item Value Reference Range Interpretation Comments U Regine Scr (test code Negative *NA*(10/23/19 = U Regine Scr) 4:41 AM) [facility] [id number] 10:41:00 Test Item Value Reference Range Interpretation Comments U Benzodiaz Scr (test Negative *NA*(10/23/19 code = U Benzodiaz Scr) 4:41 AM) [facility] [id number] 10:41:00 Test Item Value Reference Range Interpretation Comments U Cocaine Scr (test Negative *NA*(10/23/19 code = U Cocaine Scr) 4:41 AM) [facility] [id number] 10:41:00 Test Item Value Reference Range Interpretation Comments U Cannab Scr (test Negative *NA*(10/23/19 code = U Cannab Scr) 4:41 AM) [facility] [id number] 10:41:00 Test Item Value Reference Range Interpretation Comments U Opiate Scr (test Positive *ABN*(10/23/19 code = U Opiate Scr) 4:41 AM) [facility] [id number] 10:41:00 Test Item Value Reference Range Interpretation Comments U Phencyclidine Scr (test Negative code = U Phencyclidine *NA*(10/23/19 4:41 Scr) AM) [facility] [id number] 10:41:00 Test Item Value Reference Range Interpretation Comments UDS Note (test code = See Note (10/23/19 4:41 UDS Note) AM) [facility] [id number] 10:41:00 Test Item Value Reference Range Interpretation Comments UA Turbidity (test code = Clear (10/23/19 4:41 UA Turbidity) AM) [facility] [id number] 10:41:00 Test Item Value Reference Range Interpretation Comments UA Spec Grav (test code = UA Spec 1.016 1 Grav) [facility] [id number] 10:41:00 Test Item Value Reference Range Interpretation Comments UA pH (test code = UA pH) 7.0 1 5.0-8.[address] [facility] [id number] 10:41:00 Test Item Value Reference Range Interpretation Comments UA Protein (test code = UA >=300 mg/dL Protein) [facility] AND [id number] 10:41:00 Test Item Value Reference Range Interpretation Comments UA Bili (test code = Negative *NA*(10/23/19 UA Bili) 4:41 AM) [facility] AND [id number] 10:41:00 Test Item Value Reference Range Interpretation Comments UA Blood (test code = Small *ABN*(10/23/19 UA Blood) 4:41 AM) [facility] AND [id number] 10:41:00 Test Item Value Reference Range Interpretation Comments UA Nitrite (test code Negative (10/23/19 4:41 = UA Nitrite) AM) [facility] AND [id number] 10:41:00 Test Item Value Reference Range Interpretation Comments UA Leuk Est (test Negative (10/23/19 4:41 code = UA Leuk Est) AM) [facility] AND [id number] 10:41:00 Test Item Value Reference Range Interpretation Comments UA WBC (test code = 1 See_Comment [Automa vikki message] The UA WBC) system which ge nerated this result transmit vikki reference range : <=5. The reference range was not used to interpr et this result as cyndee l/abnormal. [facility] AND [id number] 10:41:00 Test Item Value Reference Range Interpretation Comments UA RBC (test code = 28 See_Comment [Automa vikki message] The UA RBC) system which ge nerated this result transmit vikki reference range : <=2. The reference range was not used to interpr et this result as cyndee l/abnormal. [facility] AND [id number] 10:41:00 Test Item Value Reference Range Interpretation Comments UA Sq Epi (test code = UA Sq Epi) None Seen [facility] AND [id number] 10:41:00 Test Item Value Reference Range Interpretation Comments UA Color (test code = UA Color) Straw [facility] AND [id number] 10:41:00 Test Item Value Reference Range Interpretation Comments UA Glucose (test code = UA Glucose) 500 [facility] AND [id number] 10:41:00 Test Item Value Reference Range Interpretation Comments UA Ketones (test code = UA Ketones) Negative [facility] AND [id number] 10:41:00 Test Item Value Reference Range Interpretation Comments UA Urobilinogen (test code = UA <=1.0 mg/dL 0.1-1.0 Urobilinogen) [id number]:41:00 Test Item Value Reference Range Interpretation Comments U Amph Scr (test code Negative *NA*(10/23/19 = U Amph Scr) 4:41 AM) [facility]2019-11-29 10:41:00 Test Item Value Reference Range Interpretation Comments U Regine Scr (test code Negative *NA*(10/23/19 = U Regine Scr) 4:41 AM) [facility] [id number] 10:41:00 Test Item Value Reference Range Interpretation Comments U Benzodiaz Scr (test Negative *NA*(10/23/19 code = U Benzodiaz Scr) 4:41 AM) [facility] [id number] 10:41:00 Test Item Value Reference Range Interpretation Comments U Cocaine Scr (test Negative *NA*(10/23/19 code = U Cocaine Scr) 4:41 AM) [facility] [id number] 10:41:00 Test Item Value Reference Range Interpretation Comments U Cannab Scr (test Negative *NA*(10/23/19 code = U Cannab Scr) 4:41 AM) [facility] [id number] 10:41:00 Test Item Value Reference Range Interpretation Comments U Opiate Scr (test Positive *ABN*(10/23/19 code = U Opiate Scr) 4:41 AM) [facility] [id number] 10:41:00 Test Item Value Reference Range Interpretation Comments U Phencyclidine Scr (test Negative code = U Phencyclidine *NA*(10/23/19 4:41 Scr) AM) [facility] [id number] 10:41:00 Test Item Value Reference Range Interpretation Comments UDS Note (test code = See Note (10/23/19 4:41 UDS Note) AM) [facility] [id number] 10:41:00 Test Item Value Reference Range Interpretation Comments UA Turbidity (test code = Clear (10/23/19 4:41 UA Turbidity) AM) [facility] [id number] 10:41:00 Test Item Value Reference Range Interpretation Comments UA Spec Grav (test code = UA Spec 1.016 1 Grav) [facility] [id number] 10:41:00 Test Item Value Reference Range Interpretation Comments UA pH (test code = UA pH) 7.0 1 5.0-8.0 [facility] [id number] 10:41:00 Test Item Value Reference Range Interpretation Comments UA Protein (test code = UA >=300 mg/dL Protein) [facility] [id number] 10:41:00 Test Item Value Reference Range Interpretation Comments UA Bili (test code = Negative *NA*(10/23/19 UA Bili) 4:41 AM) [facility] [id number] 10:41:00 Test Item Value Reference Range Interpretation Comments UA Blood (test code = Small *ABN*(10/23/19 UA Blood) 4:41 AM) [facility] [id number] 10:41:00 Test Item Value Reference Range Interpretation Comments UA Nitrite (test code Negative (10/23/19 4:41 = UA Nitrite) AM) [facility] [id number] 10:41:00 Test Item Value Reference Range Interpretation Comments UA Leuk Est (test Negative (10/23/19 4:41 code = UA Leuk Est) AM) [facility] [id number] 10:41:00 Test Item Value Reference Range Interpretation Comments UA WBC (test code = 1 See_Comment [Automa vikki message] The UA WBC) system which ge nerated this result transmit vikki reference range : <=5. The reference range was not used to interpr et this result as cyndee l/abnormal. [facility] [id number] 10:41:00 Test Item Value Reference Range Interpretation Comments UA RBC (test code = 28 See_Comment [Automa vikki message] The UA RBC) system which ge nerated this result transmit vikki reference range : <=2. The reference range was not used to interpr et this result as cyndee l/abnormal. [facility] [id number] 10:41:00 Test Item Value Reference Range Interpretation Comments UA Sq Epi (test code = UA Sq Epi) None [facility] [id number] 10:41:00 Test Item Value Reference Range Interpretation Comments UA Color (test code = UA Color) Straw [facility] AND [id number] 10:41:00 Test Item Value Reference Range Interpretation Comments UA Glucose (test code = UA Glucose) 500 [facility] [id number] 10:41:00 Test Item Value Reference Range Interpretation Comments UA Ketones (test code = UA Ketones) Negative [facility] AND [id number] 10:41:00 Test Item Value Reference Range Interpretation Comments UA Urobilinogen (test code = UA <=1.0 mg/dL 0.1-1.0 Urobilinogen) [facility] [id number] 10:41:00 Test Item Value Reference Range Interpretation Comments U Amph Scr (test code Negative *NA*(10/23/19 = U Amph Scr) 4:41 AM) [facility] [id number] 10:41:00 Test Item Value Reference Range Interpretation Comments U Regine Scr (test code Negative *NA*(10/23/19 = U Regine Scr) 4:41 AM) [facility] [id number] 10:41:00 Test Item Value Reference Range Interpretation Comments U Benzodiaz Scr (test Negative *NA*(10/23/19 code = U Benzodiaz Scr) 4:41 AM) [facility] [id number] 10:41:00 Test Item Value Reference Range Interpretation Comments U Cocaine Scr (test Negative *NA*(10/23/19 code = U Cocaine Scr) 4:41 AM) [facility] [id number] 10:41:00 Test Item Value Reference Range Interpretation Comments U Cannab Scr (test Negative *NA*(10/23/19 code = U Cannab Scr) 4:41 AM) [facility] [id number] 10:41:00 Test Item Value Reference Range Interpretation Comments U Opiate Scr (test Positive *ABN*(10/23/19 code = U Opiate Scr) 4:41 AM) [facility] [id number] 10:41:00 Test Item Value Reference Range Interpretation Comments U Phencyclidine Scr (test Negative code = U Phencyclidine *NA*(10/23/19 4:41 Scr) AM) [facility] [id number] 10:41:00 Test Item Value Reference Range Interpretation Comments UDS Note (test code = See Note (10/23/19 4:41 UDS Note) AM) [facility] [id number] 10:41:00 Test Item Value Reference Range Interpretation Comments UA Turbidity (test code = Clear (10/23/19 4:41 UA Turbidity) AM) [facility] [id number] 10:41:00 Test Item Value Reference Range Interpretation Comments UA Spec Grav (test code = UA Spec 1.016 1 Grav) [facility] [id number] 10:41:00 Test Item Value Reference Range Interpretation Comments UA pH (test code = UA pH) 7.0 1 5.0-8.0 [facility] [id number] 10:41:00 Test Item Value Reference Range Interpretation Comments UA Protein (test code = UA >=300 mg/dL Protein) [facility] [id number] 10:41:00 Test Item Value Reference Range Interpretation Comments UA Bili (test code = Negative *NA*(10/23/19 UA Bili) 4:41 AM) [facility] [id number] 10:41:00 Test Item Value Reference Range Interpretation Comments UA Blood (test code = Small *ABN*(10/23/19 UA Blood) 4:41 AM) [facility] [id number] 10:41:00 Test Item Value Reference Range Interpretation Comments UA Nitrite (test code Negative (10/23/19 4:41 = UA Nitrite) AM) [facility] [id number] 10:41:00 Test Item Value Reference Range Interpretation Comments UA Leuk Est (test Negative (10/23/19 4:41 code = UA Leuk Est) AM) [facility] [id number] 10:41:00 Test Item Value Reference Range Interpretation Comments UA WBC (test code = 1 See_Comment [Automa vikki message] The UA WBC) system which ge nerated this result transmit vikki reference range : <=5. The reference range was not used to interpr et this result as cyndee l/abnormal. [facility] [id number] 10:41:00 Test Item Value Reference Range Interpretation Comments UA RBC (test code = 28 See_Comment [Automa vikki message] The UA RBC) system which ge nerated this result transmit vikki reference range : <=2. The reference range was not used to interpr et this result as cyndee l/abnormal. [facility] [id number] 10:41:00 Test Item Value Reference Range Interpretation Comments UA Sq Epi (test code = UA Sq Epi) None Seen [facility] [id number] 10:41:00 Test Item Value Reference Range Interpretation Comments UA Color (test code = UA Color) [facility] [id number] 10:41:00 Test Item Value Reference Range Interpretation Comments UA Glucose (test code = UA Glucose) 500 [facility] [id number] 10:41:00 Test Item Value Reference Range Interpretation Comments UA Ketones (test code = UA Ketones) Negative [facility] [id number] 10:41:00 Test Item Value Reference Range Interpretation Comments UA Urobilinogen (test code = UA <=1.0 mg/dL 0.1-1.0 Urobilinogen) [facility] [id number] 10:41:00 Test Item Value Reference Range Interpretation Comments U Amph Scr (test code Negative *NA*(10/23/19 = U Amph Scr) 4:41 AM) [facility] [id number] 10:41:00 Test Item Value Reference Range Interpretation Comments U Regine Scr (test code Negative *NA*(10/23/19 = U Regine Scr) 4:41 AM) [facility] [id number] 10:41:00 Test Item Value Reference Range Interpretation Comments U Benzodiaz Scr (test Negative *NA*(10/23/19 code = U Benzodiaz Scr) 4:41 AM) [facility] [id number] 10:41:00 Test Item Value Reference Range Interpretation Comments U Cocaine Scr (test Negative *NA*(10/23/19 code = U Cocaine Scr) 4:41 AM) [facility] [id number] 10:41:00 Test Item Value Reference Range Interpretation Comments U Cannab Scr (test Negative *NA*(10/23/19 code = U Cannab Scr) 4:41 AM) [facility] [id number] 10:41:00 Test Item Value Reference Range Interpretation Comments U Opiate Scr (test Positive *ABN*(10/23/19 code = U Opiate Scr) 4:41 AM) [facility] [id number] 10:41:00 Test Item Value Reference Range Interpretation Comments U Phencyclidine Scr (test Negative code = U Phencyclidine *NA*(10/23/19 4:41 Scr) AM) [facility] [id number] 10:41:00 Test Item Value Reference Range Interpretation Comments UDS Note (test code = See Note (10/23/19 4:41 UDS Note) AM) [facility] [id number] 10:41:00 Test Item Value Reference Range Interpretation Comments UA Turbidity (test code = Clear (10/23/19 4:41 UA Turbidity) AM) [facility] [id number] 10:41:00 Test Item Value Reference Range Interpretation Comments UA Spec Grav (test code = UA Spec 1.016 1 Grav) [facility] [id number] 10:41:00 Test Item Value Reference Range Interpretation Comments UA pH (test code = UA pH) 7.0 1 5.0-8.0 [facility] [id number] 10:41:00 Test Item Value Reference Range Interpretation Comments UA Protein (test code = UA >=300 mg/dL Protein) [facility] AND [id number] 10:41:00 Test Item Value Reference Range Interpretation Comments UA Bili (test code = Negative *NA*(10/23/19 UA Bili) 4:41 AM) [facility] AND [id number] 10:41:00 Test Item Value Reference Range Interpretation Comments UA Blood (test code = Small *ABN*(10/23/19 UA Blood) 4:41 AM) [facility] AND [id number] 10:41:00 Test Item Value Reference Range Interpretation Comments UA Nitrite (test code Negative (10/23/19 4:41 = UA Nitrite) AM) [facility] AND [id number] 10:41:00 Test Item Value Reference Range Interpretation Comments UA Leuk Est (test Negative (10/23/19 4:41 code = UA Leuk Est) AM) [facility] AND [id number] 10:41:00 Test Item Value Reference Range Interpretation Comments UA WBC (test code = 1 See_Comment [Automa vikki message] The UA WBC) system which ge nerated this result transmit vikki reference range : <=5. The reference range was not used to interpr et this result as cyndee l/abnormal. [facility] AND [id number] 10:41:00 Test Item Value Reference Range Interpretation Comments UA RBC (test code = 28 See_Comment [Automa vikki message] The UA RBC) system which ge nerated this result transmit vikki reference range : <=2. The reference range was not used to interpr et this result as cyndee l/abnormal. [facility] AND [id number] 10:41:00 Test Item Value Reference Range Interpretation Comments UA Sq Epi (test code = UA Sq Epi) None Seen [facility] AND [id number] 10:41:00 Test Item Value Reference Range Interpretation Comments UA Color (test code = UA Color) Straw [facility] AND [id number] 10:41:00 Test Item Value Reference Range Interpretation Comments UA Glucose (test code = UA Glucose) 500 [facility] AND [id number] 10:41:00 Test Item Value Reference Range Interpretation Comments UA Ketones (test code = UA Ketones) Negative [facility] AND [id number] 10:41:00 Test Item Value Reference Range Interpretation Comments UA Urobilinogen (test code = UA <=1.0 mg/dL 0.1-1.0 Urobilinogen) [facility] [id number] 10:41:00 Test Item Value Reference Range Interpretation Comments U Amph Scr (test code Negative *NA*(10/23/19 = U Amph Scr) 4:41 AM) [facility] [id number] 10:41:00 Test Item Value Reference Range Interpretation Comments U Amph Scr (test code Negative *NA*(10/23/19 = U Amph Scr) 4:41 AM) [facility] [id number] 10:41:00 Test Item Value Reference Range Interpretation Comments U Regine Scr (test code Negative *NA*(10/23/19 = U Regine Scr) 4:41 AM) [facility] [id number] 10:41:00 Test Item Value Reference Range Interpretation Comments U Benzodiaz Scr (test Negative *NA*(10/23/19 code = U Benzodiaz Scr) 4:41 AM) [facility] [id number] 10:41:00 Test Item Value Reference Range Interpretation Comments U Cocaine Scr (test Negative *NA*(10/23/19 code = U Cocaine Scr) 4:41 AM) [facility] [id number] 10:41:00 Test Item Value Reference Range Interpretation Comments U Cannab Scr (test Negative *NA*(10/23/19 code = U Cannab Scr) 4:41 AM) [facility] [id number] 10:41:00 Test Item Value Reference Range Interpretation Comments U Opiate Scr (test Positive *ABN*(10/23/19 code = U Opiate Scr) 4:41 AM) [facility] [id number] 10:41:00 Test Item Value Reference Range Interpretation Comments U Phencyclidine Scr (test Negative code = U Phencyclidine *NA*(10/23/19 4:41 Scr) AM) [facility] [id number] 10:41:00 Test Item Value Reference Range Interpretation Comments UDS Note (test code = See Note (10/23/19 4:41 UDS Note) AM) [facility] [id number] 10:41:00 Test Item Value Reference Range Interpretation Comments U Regine Scr (test code Negative *NA*(10/23/19 = U Regine Scr) 4:41 AM) [facility] [id number] 10:41:00 Test Item Value Reference Range Interpretation Comments UA Turbidity (test code = Clear (10/23/19 4:41 UA Turbidity) AM) [facility] [id number] 10:41:00 Test Item Value Reference Range Interpretation Comments UA Spec Grav (test code = UA Spec 1.016 1 Grav) [facility] [id number] 10:41:00 Test Item Value Reference Range Interpretation Comments UA pH (test code = UA pH) 7.0 1 5.0-8.0 [facility] [id number] 10:41:00 Test Item Value Reference Range Interpretation Comments UA Protein (test code = UA >=300 mg/dL Protein) [facility] [id number] 10:41:00 Test Item Value Reference Range Interpretation Comments UA Bili (test code = Negative *NA*(10/23/19 UA Bili) 4:41 AM) [facility] [id number] 10:41:00 Test Item Value Reference Range Interpretation Comments UA Blood (test code = Small *ABN*(10/23/19 UA Blood) 4:41 AM) [facility] [id number] 10:41:00 Test Item Value Reference Range Interpretation Comments UA Nitrite (test code Negative (10/23/19 4:41 = UA Nitrite) AM) [facility] [id number] 10:41:00 Test Item Value Reference Range Interpretation Comments UA Leuk Est (test Negative (10/23/19 4:41 code = UA Leuk Est) AM) [facility] [id number] 10:41:00 Test Item Value Reference Range Interpretation Comments UA WBC (test code = 1 See_Comment [Automa vikki message] The UA WBC) system which ge nerated this result transmit vikki reference range : <=5. The reference range was not used to interpr et this result as cyndee l/abnormal. [facility] [id number] 10:41:00 Test Item Value Reference Range Interpretation Comments UA RBC (test code = 28 See_Comment [Automa vikki message] The UA RBC) system which ge nerated this result transmit vikki reference range : <=2. The reference range was not used to interpr et this result as cyndee l/abnormal. [facility] [id number] 10:41:00 Test Item Value Reference Range Interpretation Comments U Benzodiaz Scr (test Negative *NA*(10/23/19 code = U Benzodiaz Scr) 4:41 AM) [facility] [id number] 10:41:00 Test Item Value Reference Range Interpretation Comments UA Sq Epi (test code = UA Sq Epi) None [facility] [id number] 10:41:00 Test Item Value Reference Range Interpretation Comments UA Color (test code = UA Color) Straw [facility] AND [id number] 10:41:00 Test Item Value Reference Range Interpretation Comments UA Glucose (test code = UA Glucose) 500 [facility] AND [id number] 10:41:00 Test Item Value Reference Range Interpretation Comments UA Ketones (test code = UA Ketones) Negative [facility] [id number] 10:41:00 Test Item Value Reference Range Interpretation Comments UA Urobilinogen (test code = UA <=1.0 mg/dL 0.1-1.0 Urobilinogen) [id number] 10:41:00 Test Item Value Reference Range Interpretation Comments U Cocaine Scr (test Negative *NA*(10/23/19 code = U Cocaine Scr) 4:41 AM) [facility] [id number] 10:41:00 Test Item Value Reference Range Interpretation Comments U Cannab Scr (test Negative *NA*(10/23/19 code = U Cannab Scr) 4:41 AM) [facility] [id number] 10:41:00 Test Item Value Reference Range Interpretation Comments U Opiate Scr (test Positive *ABN*(10/23/19 code = U Opiate Scr) 4:41 AM) [facility] [id number] 10:41:00 Test Item Value Reference Range Interpretation Comments U Phencyclidine Scr (test Negative code = U Phencyclidine *NA*(10/23/19 4:41 Scr) AM) [facility] [id number] 10:41:00 Test Item Value Reference Range Interpretation Comments UDS Note (test code = See Note (10/23/19 4:41 UDS Note) AM) [facility] [id number] 10:41:00 Test Item Value Reference Range Interpretation Comments UA Turbidity (test code = Clear (10/23/19 4:41 UA Turbidity) AM) [facility] [id number] 10:41:00 Test Item Value Reference Range Interpretation Comments UA Spec Grav (test code = UA Spec 1.016 1 Grav) [facility] [id number] 10:41:00 Test Item Value Reference Range Interpretation Comments UA pH (test code = UA pH) 7.0 1 5.0-8.0 [facility] [id number] 10:41:00 Test Item Value Reference Range Interpretation Comments UA Protein (test code = UA >=300 mg/dL Protein) [facility] [id number] 10:41:00 Test Item Value Reference Range Interpretation Comments UA Bili (test code = Negative *NA*(10/23/19 UA Bili) 4:41 AM) [facility] [id number] 10:41:00 Test Item Value Reference Range Interpretation Comments UA Blood (test code = Small *ABN*(10/23/19 UA Blood) 4:41 AM) [facility] [id number] 10:41:00 Test Item Value Reference Range Interpretation Comments UA Nitrite (test code Negative (10/23/19 4:41 = UA Nitrite) AM) [facility] [id number] 10:41:00 Test Item Value Reference Range Interpretation Comments UA Leuk Est (test Negative (10/23/19 4:41 code = UA Leuk Est) AM) [facility] [id number] 10:41:00 Test Item Value Reference Range Interpretation Comments UA WBC (test code = 1 See_Comment [Automa vikki message] The UA WBC) system which ge nerated this result transmit vikki reference range : <=5. The reference range was not used to interpr et this result as cyndee l/abnormal. [facility] [id number] 10:41:00 Test Item Value Reference Range Interpretation Comments UA RBC (test code = 28 See_Comment [Automa vikki message] The UA RBC) system which ge nerated this result transmit vikki reference range : <=2. The reference range was not used to interpr et this result as cyndee l/abnormal. [facility] [id number] 10:41:00 Test Item Value Reference Range Interpretation Comments UA Sq Epi (test code = UA Sq Epi) None [facility]en [facility] [id number] 10:41:00 Test Item Value Reference Range Interpretation Comments UA Color (test code = UA Color) [facility] [id number] 10:41:00 Test Item Value Reference Range Interpretation Comments UA Glucose (test code = UA Glucose) 500 [facility] [id number] 10:41:00 Test Item Value Reference Range Interpretation Comments U Amph Scr (test code Negative *NA*(10/23/19 = U Amph Scr) 4:41 AM) [facility] [id number] 10:41:00 Test Item Value Reference Range Interpretation Comments U Regine Scr (test code Negative *NA*(10/23/19 = U Regine Scr) 4:41 AM) [facility] [id number] 10:41:00 Test Item Value Reference Range Interpretation Comments U Benzodiaz Scr (test Negative *NA*(10/23/19 code = U Benzodiaz Scr) 4:41 AM) [facility] [id number] 10:41:00 Test Item Value Reference Range Interpretation Comments U Cocaine Scr (test Negative *NA*(10/23/19 code = U Cocaine Scr) 4:41 AM) [facility] [id number] 10:41:00 Test Item Value Reference Range Interpretation Comments UA Ketones (test code = UA Ketones) Negative [facility] [id number] 10:41:00 Test Item Value Reference Range Interpretation Comments U Cannab Scr (test Negative *NA*(10/23/19 code = U Cannab Scr) 4:41 AM) [facility] [id number] 10:41:00 Test Item Value Reference Range Interpretation Comments U Opiate Scr (test Positive *ABN*(10/23/19 code = U Opiate Scr) 4:41 AM) [facility] [id number] 10:41:00 Test Item Value Reference Range Interpretation Comments U Phencyclidine Scr (test Negative code = U Phencyclidine *NA*(10/23/19 4:41 Scr) AM) [facility] [id number] 10:41:00 Test Item Value Reference Range Interpretation Comments UDS Note (test code = See Note (10/23/19 4:41 UDS Note) AM) [facility] [id number] 10:41:00 Test Item Value Reference Range Interpretation Comments UA Turbidity (test code = Clear (10/23/19 4:41 UA Turbidity) AM) [facility] [id number] 10:41:00 Test Item Value Reference Range Interpretation Comments UA Spec Grav (test code = UA Spec 1.016 1 Grav) [facility] [id number] 10:41:00 Test Item Value Reference Range Interpretation Comments UA pH (test code = UA pH) 7.0 1 5.0-8.0 [facility] [id number] 10:41:00 Test Item Value Reference Range Interpretation Comments UA Protein (test code = UA >=300 mg/dL Protein) [facility] [id number] 10:41:00 Test Item Value Reference Range Interpretation Comments UA Bili (test code = Negative *NA*(10/23/19 UA Bili) 4:41 AM) [facility] [id number] 10:41:00 Test Item Value Reference Range Interpretation Comments UA Blood (test code = Small *ABN*(10/23/19 UA Blood) 4:41 AM) [facility] [id number] 10:41:00 Test Item Value Reference Range Interpretation Comments UA Urobilinogen (test code = UA <=1.0 mg/dL 0.1-1.0 Urobilinogen) [facility] [id number] 10:41:00 Test Item Value Reference Range Interpretation Comments UA Nitrite (test code Negative (10/23/19 4:41 = UA Nitrite) AM) [facility] [id number] 10:41:00 Test Item Value Reference Range Interpretation Comments UA Leuk Est (test Negative (10/23/19 4:41 code = UA Leuk Est) AM) [facility] AND [id number] 10:41:00 Test Item Value Reference Range Interpretation Comments UA WBC (test code = 1 See_Comment [Automa vikki message] The UA WBC) system which ge nerated this result transmit vikki reference range : <=5. The reference range was not used to interpr et this result as cyndee l/abnormal. [facility] [id number] 10:41:00 Test Item Value Reference Range Interpretation Comments UA RBC (test code = 28 See_Comment [Automa vikki message] The UA RBC) system which ge nerated this result transmit vikki reference range : <=2. The reference range was not used to interpr et this result as cyndee l/abnormal. [facility] AND [id number] 10:41:00 Test Item Value Reference Range Interpretation Comments UA Sq Epi (test code = UA Sq Epi) None Seen [facility] AND [id number] 10:41:00 Test Item Value Reference Range Interpretation Comments UA Color (test code = UA Color) Straw [facility] AND [id number] 10:41:00 Test Item Value Reference Range Interpretation Comments UA Glucose (test code = UA Glucose) 500 [facility] AND [id number] 10:41:00 Test Item Value Reference Range Interpretation Comments UA Ketones (test code = UA Ketones) Negative [facility] AND [id number] 10:41:00 Test Item Value Reference Range Interpretation Comments UA Urobilinogen (test code = UA <=1.0 mg/dL 0.1-1.0 Urobilinogen) [facility] [id number] 10:41:00 Test Item Value Reference Range Interpretation Comments U Amph Scr (test code Negative *NA*(10/23/19 = U Amph Scr) 4:41 AM) [facility] [id number] 10:41:00 Test Item Value Reference Range Interpretation Comments U Regine Scr (test code Negative *NA*(10/23/19 = U Regine Scr) 4:41 AM) [facility] [id number] 10:41:00 Test Item Value Reference Range Interpretation Comments U Benzodiaz Scr (test Negative *NA*(10/23/19 code = U Benzodiaz Scr) 4:41 AM) [facility] [id number] 10:41:00 Test Item Value Reference Range Interpretation Comments U Cocaine Scr (test Negative *NA*(10/23/19 code = U Cocaine Scr) 4:41 AM) [facility] [id number] 10:41:00 Test Item Value Reference Range Interpretation Comments U Cannab Scr (test Negative *NA*(10/23/19 code = U Cannab Scr) 4:41 AM) [facility] [id number] 10:41:00 Test Item Value Reference Range Interpretation Comments U Opiate Scr (test Positive *ABN*(10/23/19 code = U Opiate Scr) 4:41 AM) [facility] [id number] 10:41:00 Test Item Value Reference Range Interpretation Comments U Phencyclidine Scr (test Negative code = U Phencyclidine *NA*(10/23/19 4:41 Scr) AM) [facility] [id number] 10:41:00 Test Item Value Reference Range Interpretation Comments UDS Note (test code = See Note (10/23/19 4:41 UDS Note) AM) [facility] [id number] 10:41:00 Test Item Value Reference Range Interpretation Comments UA Turbidity (test code = Clear (10/23/19 4:41 UA Turbidity) AM) [facility] [id number] 10:41:00 Test Item Value Reference Range Interpretation Comments UA Spec Grav (test code = UA Spec 1.016 1 Grav) [facility] [id number] 10:41:00 Test Item Value Reference Range Interpretation Comments UA pH (test code = UA pH) 7.0 1 5.0-8.0 [facility] [id number] 10:41:00 Test Item Value Reference Range Interpretation Comments UA Protein (test code = UA >=300 mg/dL Protein) [facility] [id number] 10:41:00 Test Item Value Reference Range Interpretation Comments UA Bili (test code = Negative *NA*(10/23/19 UA Bili) 4:41 AM) [facility] [id number] 10:41:00 Test Item Value Reference Range Interpretation Comments UA Blood (test code = Small *ABN*(10/23/19 UA Blood) 4:41 AM) [facility] AND [id number] 10:41:00 Test Item Value Reference Range Interpretation Comments UA Nitrite (test code Negative (10/23/19 4:41 = UA Nitrite) AM) [facility] [id number] 10:41:00 Test Item Value Reference Range Interpretation Comments UA Leuk Est (test Negative (10/23/19 4:41 code = UA Leuk Est) AM) [facility] [id number] 10:41:00 Test Item Value Reference Range Interpretation Comments UA WBC (test code = 1 See_Comment [Automa vikki message] The UA WBC) system which ge nerated this result transmit vikki reference range : <=5. The reference range was not used to interpr et this result as cyndee l/abnormal. [facility] [id number] 10:41:00 Test Item Value Reference Range Interpretation Comments UA RBC (test code = 28 See_Comment [Automa vikki message] The UA RBC) system which ge nerated this result transmit vikki reference range : <=2. The reference range was not used to interpr et this result as cyndee l/abnormal. [facility] [id number] 10:41:00 Test Item Value Reference Range Interpretation Comments UA Sq Epi (test code = UA Sq Epi) None Seen [facility] AND [id number] 10:41:00 Test Item Value Reference Range Interpretation Comments UA Color (test code = UA Color) Straw [facility] AND [id number] 10:41:00 Test Item Value Reference Range Interpretation Comments UA Glucose (test code = UA Glucose) 500 [facility] [id number] 10:41:00 Test Item Value Reference Range Interpretation Comments UA Ketones (test code = UA Ketones) Negative [facility] [id number] 10:41:00 Test Item Value Reference Range Interpretation Comments UA Urobilinogen (test code = UA <=1.0 mg/dL 0.1-1.0 Urobilinogen) [facility] [id number] 10:41:00 Test Item Value Reference Range Interpretation Comments U Amph Scr (test code Negative *NA*(10/23/19 = U Amph Scr) 4:41 AM) [facility] [id number] 10:41:00 Test Item Value Reference Range Interpretation Comments U Regine Scr (test code Negative *NA*(10/23/19 = U Regine Scr) 4:41 AM) [facility] [id number] 10:41:00 Test Item Value Reference Range Interpretation Comments U Benzodiaz Scr (test Negative *NA*(10/23/19 code = U Benzodiaz Scr) 4:41 AM) [facility] [id number] 10:41:00 Test Item Value Reference Range Interpretation Comments U Cocaine Scr (test Negative *NA*(10/23/19 code = U Cocaine Scr) 4:41 AM) [facility] [id number] 10:41:00 Test Item Value Reference Range Interpretation Comments U Cannab Scr (test Negative *NA*(10/23/19 code = U Cannab Scr) 4:41 AM) [facility] [id number] 10:41:00 Test Item Value Reference Range Interpretation Comments U Opiate Scr (test Positive *ABN*(10/23/19 code = U Opiate Scr) 4:41 AM) [facility] [id number] 10:41:00 Test Item Value Reference Range Interpretation Comments U Phencyclidine Scr (test Negative code = U Phencyclidine *NA*(10/23/19 4:41 Scr) AM) [facility] [id number] 10:41:00 Test Item Value Reference Range Interpretation Comments UDS Note (test code = See Note (10/23/19 4:41 UDS Note) AM) [facility] [id number] 10:41:00 Test Item Value Reference Range Interpretation Comments UA Turbidity (test code = Clear (10/23/19 4:41 UA Turbidity) AM) [facility] [id number] 10:41:00 Test Item Value Reference Range Interpretation Comments UA Spec Grav (test code = UA Spec 1.016 1 Grav) [facility] [id number] 10:41:00 Test Item Value Reference Range Interpretation Comments UA pH (test code = UA pH) 7.0 1 5.0-8.0 [facility] AND [id number] 10:41:00 Test Item Value Reference Range Interpretation Comments UA Protein (test code = UA >=300 mg/dL Protein) [facility] AND [id number] 10:41:00 Test Item Value Reference Range Interpretation Comments UA Bili (test code = Negative *NA*(10/23/19 UA Bili) 4:41 AM) [facility] AND [id number] 10:41:00 Test Item Value Reference Range Interpretation Comments UA Blood (test code = Small *ABN*(10/23/19 UA Blood) 4:41 AM) [facility] AND [id number] 10:41:00 Test Item Value Reference Range Interpretation Comments UA Nitrite (test code Negative (10/23/19 4:41 = UA Nitrite) AM) [facility] AND [id number] 10:41:00 Test Item Value Reference Range Interpretation Comments UA Leuk Est (test Negative (10/23/19 4:41 code = UA Leuk Est) AM) [facility] AND [id number] 10:41:00 Test Item Value Reference Range Interpretation Comments UA WBC (test code = 1 See_Comment [Automa vikki message] The UA WBC) system which ge nerated this result transmit vikki reference range : <=5. The reference range was not used to interpr et this result as cyndee l/abnormal. [facility] AND [id number] 10:41:00 Test Item Value Reference Range Interpretation Comments UA RBC (test code = 28 See_Comment [Automa vikki message] The UA RBC) system which ge nerated this result transmit vikki reference range : <=2. The reference range was not used to interpr et this result as cyndee l/abnormal. [facility] AND [id number] 10:41:00 Test Item Value Reference Range Interpretation Comments UA Sq Epi (test code = UA Sq Epi) None Seen [facility] AND [id number] 10:41:00 Test Item Value Reference Range Interpretation Comments UA Color (test code = UA Color) Straw [facility] AND [id number] 10:41:00 Test Item Value Reference Range Interpretation Comments UA Glucose (test code = UA Glucose) [facility] [id number] 10:41:00 Test Item Value Reference Range Interpretation Comments UA Ketones (test code = UA Ketones) [facility] [id number] 10:41:00 Test Item Value Reference Range Interpretation Comments UA Urobilinogen (test code = UA <=1.0 mg/dL 0.1-1.0 Urobilinogen) [facility] [id number] 10:41:00 Test Item Value Reference Range Interpretation Comments U Amph Scr (test code Negative *NA*(10/23/19 = U Amph Scr) 4:41 AM) [facility] [id number] 10:41:00 Test Item Value Reference Range Interpretation Comments U Regine Scr (test code Negative *NA*(10/23/19 = U Regine Scr) 4:41 AM) [facility] [id number] 10:41:00 Test Item Value Reference Range Interpretation Comments U Benzodiaz Scr (test Negative *NA*(10/23/19 code = U Benzodiaz Scr) 4:41 AM) [facility] [id number] 10:41:00 Test Item Value Reference Range Interpretation Comments U Cocaine Scr (test Negative *NA*(10/23/19 code = U Cocaine Scr) 4:41 AM) [facility] [id number] 10:41:00 Test Item Value Reference Range Interpretation Comments U Cannab Scr (test Negative *NA*(10/23/19 code = U Cannab Scr) 4:41 AM) [facility] [id number] 10:41:00 Test Item Value Reference Range Interpretation Comments U Opiate Scr (test Positive *ABN*(10/23/19 code = U Opiate Scr) 4:41 AM) [facility] [id number] 10:41:00 Test Item Value Reference Range Interpretation Comments U Phencyclidine Scr (test Negative code = U Phencyclidine *NA*(10/23/19 4:41 Scr) AM) [facility] [id number] 10:41:00 Test Item Value Reference Range Interpretation Comments UDS Note (test code = See Note (10/23/19 4:41 UDS Note) AM) [facility] AND [id number] 10:41:00 Test Item Value Reference Range Interpretation Comments UA Turbidity (test code = Clear (10/23/19 4:41 UA Turbidity) AM) [facility] AND [id number] 10:41:00 Test Item Value Reference Range Interpretation Comments UA Spec Grav (test code = UA Spec 1.016 1 Grav) [facility] AND [id number] 10:41:00 Test Item Value Reference Range Interpretation Comments UA pH (test code = UA pH) 7.0 1 5.0-8.0 [facility] AND [id number] 10:41:00 Test Item Value Reference Range Interpretation Comments UA Protein (test code = UA >=300 mg/dL Protein) [facility] AND [id number] 10:41:00 Test Item Value Reference Range Interpretation Comments UA Bili (test code = Negative *NA*(10/23/19 UA Bili) 4:41 AM) [facility] AND [id number] 10:41:00 Test Item Value Reference Range Interpretation Comments UA Blood (test code = Small *ABN*(10/23/19 UA Blood) 4:41 AM) [facility] AND [id number] 10:41:00 Test Item Value Reference Range Interpretation Comments UA Nitrite (test code Negative (10/23/19 4:41 = UA Nitrite) AM) [facility] AND [id number] 10:41:00 Test Item Value Reference Range Interpretation Comments UA Leuk Est (test Negative (10/23/19 4:41 code = UA Leuk Est) AM) [facility] AND [id number] 10:41:00 Test Item Value Reference Range Interpretation Comments UA WBC (test code = 1 See_Comment [Automa vikki message] The UA WBC) system which ge nerated this result transmit vikki reference range : <=5. The reference range was not used to interpr et this result as cyndee l/abnormal. [facility] AND [id number] 10:41:00 Test Item Value Reference Range Interpretation Comments UA RBC (test code = 28 See_Comment [Automa vikki message] The UA RBC) system which ge nerated this result transmit vikki reference range : <=2. The reference range was not used to interpr et this result as cyndee l/abnormal. [facility] [id number] 10:41:00 Test Item Value Reference Range Interpretation Comments UA Sq Epi (test code = UA Sq Epi) None Seen [facility] AND [id number] 10:41:00 Test Item Value Reference Range Interpretation Comments UA Color (test code = UA Color) Straw [facility] AND [id number] 10:41:00 Test Item Value Reference Range Interpretation Comments UA Glucose (test code = UA Glucose) 500 [facility] AND [id number] 10:41:00 Test Item Value Reference Range Interpretation Comments UA Ketones (test code = UA Ketones) Negative [facility] AND [id number] 10:41:00 Test Item Value Reference Range Interpretation Comments UA Urobilinogen (test code = UA <=1.0 mg/dL 0.1-1.0 Urobilinogen) [facility] [id number] 10:41:00 Test Item Value Reference Range Interpretation Comments U Amph Scr (test code Negative *NA*(10/23/19 = U Amph Scr) 4:41 AM) [facility] [id number] 10:41:00 Test Item Value Reference Range Interpretation Comments U Regine Scr (test code Negative *NA*(10/23/19 = U Regine Scr) 4:41 AM) [facility] [id number] 10:41:00 Test Item Value Reference Range Interpretation Comments U Benzodiaz Scr (test Negative *NA*(10/23/19 code = U Benzodiaz Scr) 4:41 AM) [facility] [id number] 10:41:00 Test Item Value Reference Range Interpretation Comments U Cocaine Scr (test Negative *NA*(10/23/19 code = U Cocaine Scr) 4:41 AM) [facility] [id number] 10:41:00 Test Item Value Reference Range Interpretation Comments U Cannab Scr (test Negative *NA*(10/23/19 code = U Cannab Scr) 4:41 AM) [facility] [id number] 10:41:00 Test Item Value Reference Range Interpretation Comments U Opiate Scr (test Positive *ABN*(10/23/19 code = U Opiate Scr) 4:41 AM) [facility] [id number] 10:41:00 Test Item Value Reference Range Interpretation Comments U Phencyclidine Scr (test Negative code = U Phencyclidine *NA*(10/23/19 4:41 Scr) AM) [facility] [id number] 10:41:00 Test Item Value Reference Range Interpretation Comments UDS Note (test code = See Note (10/23/19 4:41 UDS Note) AM) [facility] [id number] 10:41:00 Test Item Value Reference Range Interpretation Comments UA Turbidity (test code = Clear (10/23/19 4:41 UA Turbidity) AM) [facility] [id number] 10:41:00 Test Item Value Reference Range Interpretation Comments UA Spec Grav (test code = UA Spec 1.016 1 Grav) [facility] [id number] 10:41:00 Test Item Value Reference Range Interpretation Comments UA pH (test code = UA pH) 7.0 1 5.0-8.0 [facility] [id number] 10:41:00 Test Item Value Reference Range Interpretation Comments UA Protein (test code = UA >=300 mg/dL Protein) [facility] [id number] 10:41:00 Test Item Value Reference Range Interpretation Comments UA Bili (test code = Negative *NA*(10/23/19 UA Bili) 4:41 AM) [facility] [id number] 10:41:00 Test Item Value Reference Range Interpretation Comments UA Blood (test code = Small *ABN*(10/23/19 UA Blood) 4:41 AM) [facility] [id number] 10:41:00 Test Item Value Reference Range Interpretation Comments UA Nitrite (test code Negative (10/23/19 4:41 = UA Nitrite) AM) [facility] [id number] 10:41:00 Test Item Value Reference Range Interpretation Comments UA Leuk Est (test Negative (10/23/19 4:41 code = UA Leuk Est) AM) [facility] [id number] 10:41:00 Test Item Value Reference Range Interpretation Comments UA WBC (test code = 1 See_Comment [Automa vikki message] The UA WBC) system which ge nerated this result transmit vikki reference range : <=5. The reference range was not used to interpr et this result as cyndee l/abnormal. [facility] [id number] 10:41:00 Test Item Value Reference Range Interpretation Comments UA RBC (test code = 28 See_Comment [Automa vikki message] The UA RBC) system which ge nerated this result transmit vikki reference range : <=2. The reference range was not used to interpr et this result as cyndee l/abnormal. [facility] [id number] 10:41:00 Test Item Value Reference Range Interpretation Comments UA Sq Epi (test code = UA Sq Epi) None Seen [facility] AND [id number] 10:41:00 Test Item Value Reference Range Interpretation Comments UA Color (test code = UA Color) Straw [facility] [id number] 10:41:00 Test Item Value Reference Range Interpretation Comments UA Glucose (test code = UA Glucose) 500 [facility] AND [id number] 10:41:00 Test Item Value Reference Range Interpretation Comments UA Ketones (test code = UA Ketones) Negative [facility] [id number] 10:41:00 Test Item Value Reference Range Interpretation Comments UA Urobilinogen (test code = UA <=1.0 mg/dL 0.1-1.0 Urobilinogen) [facility] [id number] 10:41:00 Test Item Value Reference Range Interpretation Comments U Amph Scr (test code Negative *NA*(10/23/19 = U Amph Scr) 4:41 AM) [facility] [id number] 10:41:00 Test Item Value Reference Range Interpretation Comments U Regine Scr (test code Negative *NA*(10/23/19 = U Regine Scr) 4:41 AM) [facility] [id number] 10:41:00 Test Item Value Reference Range Interpretation Comments U Benzodiaz Scr (test Negative *NA*(10/23/19 code = U Benzodiaz Scr) 4:41 AM) [facility] [id number] 10:41:00 Test Item Value Reference Range Interpretation Comments U Cocaine Scr (test Negative *NA*(10/23/19 code = U Cocaine Scr) 4:41 AM) [facility] [id number] 10:41:00 Test Item Value Reference Range Interpretation Comments U Cannab Scr (test Negative *NA*(10/23/19 code = U Cannab Scr) 4:41 AM) [facility] [id number] 10:41:00 Test Item Value Reference Range Interpretation Comments U Opiate Scr (test Positive *ABN*(10/23/19 code = U Opiate Scr) 4:41 AM) [facility] [id number] 10:41:00 Test Item Value Reference Range Interpretation Comments U Phencyclidine Scr (test Negative code = U Phencyclidine *NA*(10/23/19 4:41 Scr) AM) [facility] [id number] 10:41:00 Test Item Value Reference Range Interpretation Comments UDS Note (test code = See Note (10/23/19 4:41 UDS Note) AM) [facility] [id number] 10:41:00 Test Item Value Reference Range Interpretation Comments UA Turbidity (test code = Clear (10/23/19 4:41 UA Turbidity) AM) [facility] [id number] 10:41:00 Test Item Value Reference Range Interpretation Comments UA Spec Grav (test code = UA Spec 1.016 1 Grav) [facility] [id number] 10:41:00 Test Item Value Reference Range Interpretation Comments UA pH (test code = UA pH) 7.0 1 5.0-8.0 [facility] [id number] 10:41:00 Test Item Value Reference Range Interpretation Comments UA Protein (test code = UA >=300 mg/dL Protein) [facility] [id number] 10:41:00 Test Item Value Reference Range Interpretation Comments UA Bili (test code = Negative *NA*(10/23/19 UA Bili) 4:41 AM) [facility] [id number] 10:41:00 Test Item Value Reference Range Interpretation Comments UA Blood (test code = Small *ABN*(10/23/19 UA Blood) 4:41 AM) [facility] [id number] 10:41:00 Test Item Value Reference Range Interpretation Comments UA Nitrite (test code Negative (10/23/19 4:41 = UA Nitrite) AM) [facility] AND [id number] 10:41:00 Test Item Value Reference Range Interpretation Comments UA Leuk Est (test Negative (10/23/19 4:41 code = UA Leuk Est) AM) [facility] AND [id number] 10:41:00 Test Item Value Reference Range Interpretation Comments UA WBC (test code = UA WBC) 1 <=5 [facility] AND [id number] 10:41:00 Test Item Value Reference Range Interpretation Comments UA RBC (test code = UA RBC) 28 <=2 [facility] AND [id number] 10:41:00 Test Item Value Reference Range Interpretation Comments UA Sq Epi (test code = UA Sq Epi) None Seen [facility] AND [id number] 10:41:00 Test Item Value Reference Range Interpretation Comments UA Color (test code = UA Color) Straw [facility] AND [id number] 10:41:00 Test Item Value Reference Range Interpretation Comments UA Glucose (test code = UA Glucose) 500 [facility] AND [id number] 10:41:00 Test Item Value Reference Range Interpretation Comments UA Ketones (test code = UA Ketones) Negative [facility] AND [id number] 10:41:00 Test Item Value Reference Range Interpretation Comments UA Urobilinogen (test code = UA <=1.0 mg/dL 0.1-1.0 Urobilinogen) [facility]2019-11-29 09:30:00 Test Item Value Reference Range Interpretation Comments Ketone Quantitative (test code = Ketone 0.08 Quantitative) [facility]2019-11-29 09:30:00 Test Item Value Reference Range Interpretation Comments Osmolality (test code = Osmolality) 320 280-300 [facility] [id number] 09:30:00 Test Item Value Reference Range Interpretation Comments Magnesium Lvl (test code = Magnesium 1.8 1.8-2.4 Lvl) [id number] 09:30:00 Test Item Value Reference Range Interpretation Comments INR (test code = INR) 1.00 1 0.85-1.17 [facility] [id number] 09:30:00 Test Item Value Reference Range Interpretation Comments PT (test code = PT) 13.0 s 12.0-14.7 [facility] [id number] 09:30:00 Test Item Value Reference Range Interpretation Comments PTT (test code = PTT) 26.9 s 22.9-35.8 [facility] H[id number] 09:30:00 Test Item Value Reference Range Interpretation Comments RBC Morph (test code = Normal (10/23/19 3:30 RBC Morph) AM) [facility] H[id number] 09:30:00 Test Item Value Reference Range Interpretation Comments Plt Morph (test code = Normal (10/23/19 3:30 Plt Morph) AM) [facility] [id number] 09:30:00 Test Item Value Reference Range Interpretation Comments Hgb A1C (test code = Hgb A1C) 7.8 [facility] [id number] 09:30:00 Test Item Value Reference Range Interpretation Comments Ketone Quantitative (test code = Ketone 0.08 Quantitative) [facility] [id number] 09:30:00 Test Item Value Reference Range Interpretation Comments Osmolality (test code = Osmolality) 320 280-300 [facility] [id number] 09:30:00 Test Item Value Reference Range Interpretation Comments Magnesium Lvl (test code = Magnesium 1.8 1.8-2.4 Lvl) [facility] H[id number] 09:30:00 Test Item Value Reference Range Interpretation Comments INR (test code = INR) 1.00 1 0.85-1.17 [facility] H[id number] 09:30:00 Test Item Value Reference Range Interpretation Comments PT (test code = PT) 13.0 s 12.0-14.7 [facility] [id number] 09:30:00 Test Item Value Reference Range Interpretation Comments PTT (test code = PTT) 26.9 s 22.9-35.8 [facility] HospitalSoyigajPZWHPNFZRN1679-02-05 09:30:00 Test Item Value Reference Range Interpretation Comments RBC Morph (test code = Normal (10/23/19 3:30 RBC Morph) AM) [facility] HospitalJwhgdddGVUEUZWYJO2034-09-17 09:30:00 Test Item Value Reference Range Interpretation Comments Plt Morph (test code = Normal (10/23/19 3:30 Plt Morph) AM) [facility]2019-11-29 09:30:00 Test Item Value Reference Range Interpretation Comments Hgb A1C (test code = Hgb A1C) 7.8 [facility]2019-11-29 09:30:00 Test Item Value Reference Range Interpretation Comments Ketone Quantitative (test code = Ketone 0.08 Quantitative) [facility]2019-11-29 09:30:00 Test Item Value Reference Range Interpretation Comments Osmolality (test code = Osmolality) 320 280-300 [facility]2019-11-29 09:30:00 Test Item Value Reference Range Interpretation Comments Magnesium Lvl (test code = Magnesium 1.8 1.8-2.4 Lvl) [facility] H[id number] 09:30:00 Test Item Value Reference Range Interpretation Comments INR (test code = INR) 1.00 1 0.85-1.17 [facility] H[id number] 09:30:00 Test Item Value Reference Range Interpretation Comments PT (test code = PT) 13.0 s 12.0-14.7 [facility] HospitalOihunbeMNOMIERMQF8017-13-77 09:30:00 Test Item Value Reference Range Interpretation Comments PTT (test code = PTT) 26.9 s 22.9-35.8 [facility] Hos[id number] 09:30:00 Test Item Value Reference Range Interpretation Comments RBC Morph (test code = Normal (10/23/19 3:30 RBC Morph) AM) [facility] H[id number] 09:30:00 Test Item Value Reference Range Interpretation Comments Plt Morph (test code = Normal (10/23/19 3:30 Plt Morph) AM) [facility]2019-11-29 09:30:00 Test Item Value Reference Range Interpretation Comments Hgb A1C (test code = Hgb A1C) 7.8 [facility]2019-11-29 09:30:00 Test Item Value Reference Range Interpretation Comments Ketone Quantitative (test code = Ketone 0.08 Quantitative) [facility]2019-11-29 09:30:00 Test Item Value Reference Range Interpretation Comments Osmolality (test code = Osmolality) 320 280-300 [facility]2019-11-29 09:30:00 Test Item Value Reference Range Interpretation Comments Magnesium Lvl (test code = Magnesium 1.8 1.8-2.4 Lvl) [id number] 09:30:00 Test Item Value Reference Range Interpretation Comments INR (test code = INR) 1.00 1 0.85-1.17 [facility] Hos[id number] 09:30:00 Test Item Value Reference Range Interpretation Comments PT (test code = PT) 13.0 s 12.0-14.7 [facility] HospitalVlrbuakCFXBDQYTRM5503-86-35 09:30:00 Test Item Value Reference Range Interpretation Comments PTT (test code = PTT) 26.9 s 22.9-35.8 [facility] HospitalRupnsavCMMEYRXNPP2294-02-10 09:30:00 Test Item Value Reference Range Interpretation Comments RBC Morph (test code = Normal (10/23/19 3:30 RBC Morph) AM) [facility] Hospit[id number] 09:30:00 Test Item Value Reference Range Interpretation Comments Plt Morph (test code = Normal (10/23/19 3:30 Plt Morph) AM) [facility] [id number] 09:30:00 Test Item Value Reference Range Interpretation Comments Hgb A1C (test code = Hgb A1C) 7.8 [facility] [id number] 09:30:00 Test Item Value Reference Range Interpretation Comments Ketone Quantitative (test code = Ketone 0.08 Quantitative) [facility] [id number] 09:30:00 Test Item Value Reference Range Interpretation Comments Osmolality (test code = Osmolality) 320 280-300 [facility] [id number] 09:30:00 Test Item Value Reference Range Interpretation Comments Magnesium Lvl (test code = Magnesium 1.8 1.8-2.4 Lvl) [facility] Ho[id number] 09:30:00 Test Item Value Reference Range Interpretation Comments INR (test code = INR) 1.00 1 0.85-1.17 [facility] HospitalVimqnodVAZBSBOLNF8431-22-81 09:30:00 Test Item Value Reference Range Interpretation Comments PT (test code = PT) 13.0 s 12.0-14.7 [facility] HospitalAhgndngMSPPHUQPWB4117-04-25 09:30:00 Test Item Value Reference Range Interpretation Comments PTT (test code = PTT) 26.9 s 22.9-35.8 [facility] Hos[id number] 09:30:00 Test Item Value Reference Range Interpretation Comments RBC Morph (test code = Normal (10/23/19 3:30 RBC Morph) AM) [facility] Hospit[id number] 09:30:00 Test Item Value Reference Range Interpretation Comments Plt Morph (test code = Normal (10/23/19 3:30 Plt Morph) AM) [facility] [id number] 09:30:00 Test Item Value Reference Range Interpretation Comments Hgb A1C (test code = Hgb A1C) 7.8 [facility] [id number] 09:30:00 Test Item Value Reference Range Interpretation Comments Ketone Quantitative (test code = Ketone 0.08 Quantitative) [facility]2019-11-29 09:30:00 Test Item Value Reference Range Interpretation Comments Ketone Quantitative (test code = Ketone 0.08 Quantitative) [facility]2019-11-29 09:30:00 Test Item Value Reference Range Interpretation Comments Osmolality (test code = Osmolality) 320 280-300 [facility]2019-11-29 09:30:00 Test Item Value Reference Range Interpretation Comments Magnesium Lvl (test code = Magnesium 1.8 1.8-2.4 Lvl) [facility] HospitalMzjumduNVGNGIUFTH7738-65-12 09:30:00 Test Item Value Reference Range Interpretation Comments INR (test code = INR) 1.00 1 0.85-1.17 [facility] HospitalUezxwpxNWTSUGFVJV7807-72-63 09:30:00 Test Item Value Reference Range Interpretation Comments PT (test code = PT) 13.0 s 12.0-14.7 [facility] HospitalMcyxxowNWEYZZEJOX1537-27-30 09:30:00 Test Item Value Reference Range Interpretation Comments PTT (test code = PTT) 26.9 s 22.9-35.8 [facility] HospitalVeazlykIVYKBVYYEM1067-60-65 09:30:00 Test Item Value Reference Range Interpretation Comments RBC Morph (test code = Normal (10/23/19 3:30 RBC Morph) AM) [facility] HospitalEptxxuaGNCNDSCTOI5397-82-75 09:30:00 Test Item Value Reference Range Interpretation Comments Plt Morph (test code = Normal (10/23/19 3:30 Plt Morph) AM) [facility]2019-11-29 09:30:00 Test Item Value Reference Range Interpretation Comments Hgb A1C (test code = Hgb A1C) 7.8 [facility]2019-11-29 09:30:00 Test Item Value Reference Range Interpretation Comments Osmolality (test code = Osmolality) 320 280-300 [facility]2019-11-29 09:30:00 Test Item Value Reference Range Interpretation Comments Magnesium Lvl (test code = Magnesium 1.8 1.8-2.4 Lvl) [facility] HospitalZacuvjyYGZWQIWGRM8705-07-13 09:30:00 Test Item Value Reference Range Interpretation Comments INR (test code = INR) 1.00 1 0.85-1.17 [facility] HospitalBrvtsktBYLQNSDIJB4621-36-37 09:30:00 Test Item Value Reference Range Interpretation Comments PT (test code = PT) 13.0 s 12.0-14.7 [facility] HospitalQxaktnaGPSEPQVWYC7858-53-90 09:30:00 Test Item Value Reference Range Interpretation Comments PTT (test code = PTT) 26.9 s 22.9-35.8 [facility] HospitalWidomsrDZLFFYMHHM1495-26-57 09:30:00 Test Item Value Reference Range Interpretation Comments RBC Morph (test code = Normal (10/23/19 3:30 RBC Morph) AM) [facility] HospitalRqmmrehPPEJMGZOXF3746-42-80 09:30:00 Test Item Value Reference Range Interpretation Comments Plt Morph (test code = Normal (10/23/19 3:30 Plt Morph) AM) [facility]2019-11-29 09:30:00 Test Item Value Reference Range Interpretation Comments Hgb A1C (test code = Hgb A1C) 7.8 [facility]2019-11-29 09:30:00 Test Item Value Reference Range Interpretation Comments Ketone Quantitative (test code = Ketone 0.08 Quantitative) [facility]2019-11-29 09:30:00 Test Item Value Reference Range Interpretation Comments Osmolality (test code = Osmolality) 320 280-300 [facility]2019-11-29 09:30:00 Test Item Value Reference Range Interpretation Comments Magnesium Lvl (test code = Magnesium 1.8 1.8-2.4 Lvl) [facility]fhhkpsQZZSGRWCOR3097-29-21 09:30:00 Test Item Value Reference Range Interpretation Comments INR (test code = INR) 1.00 1 0.85-1.17 [facility]qfwjusDVXEYPYNOC4552-30-18 09:30:00 Test Item Value Reference Range Interpretation Comments PT (test code = PT) 13.0 s 12.0-14.7 [id number] 09:30:00 Test Item Value Reference Range Interpretation Comments PTT (test code = PTT) 26.9 s 22.9-35.8 [facility] Cent[id number] 09:30:00 Test Item Value Reference Range Interpretation Comments RBC Morph (test code = Normal (10/23/19 3:30 RBC Morph) AM) [facility] 09:30:00 Test Item Value Reference Range Interpretation Comments Plt Morph (test code = Normal (10/23/19 3:30 Plt Morph) AM) [facility] [id number] 09:30:00 Test Item Value Reference Range Interpretation Comments Hgb A1C (test code = Hgb A1C) 7.8 [facility] [id number] 09:30:00 Test Item Value Reference Range Interpretation Comments Ketone Quantitative (test code = Ketone 0.08 Quantitative) [facility] [id number] 09:30:00 Test Item Value Reference Range Interpretation Comments Osmolality (test code = Osmolality) 320 280-300 [facility] [id number] 09:30:00 Test Item Value Reference Range Interpretation Comments Magnesium Lvl (test code = Magnesium 1.8 1.8-2.4 Lvl) [facility] HospitalGngjtsvFGNCYUMQBC4305-72-89 09:30:00 Test Item Value Reference Range Interpretation Comments INR (test code = INR) 1.00 1 0.85-1.17 [facility] CenterCebemutCIQJVOKSPJ6000-70-90 09:30:00 Test Item Value Reference Range Interpretation Comments PT (test code = PT) 13.0 s 12.0-14.7 [facility] CenterSrjsavlOUIBNLVATG4789-35-39 09:30:00 Test Item Value Reference Range Interpretation Comments PTT (test code = PTT) 26.9 s 22.9-35.8 [facility] Cent[id number] 09:30:00 Test Item Value Reference Range Interpretation Comments RBC Morph (test code = Normal (10/23/19 3:30 RBC Morph) AM) [facility] Hospit[id number] 09:30:00 Test Item Value Reference Range Interpretation Comments Plt Morph (test code = Normal (10/23/19 3:30 Plt Morph) AM) [facility]2019-11-29 09:30:00 Test Item Value Reference Range Interpretation Comments Hgb A1C (test code = Hgb A1C) 7.8 [facility]2019-11-29 09:30:00 Test Item Value Reference Range Interpretation Comments Ketone Quantitative (test code = Ketone 0.08 Quantitative) [facility]2019-11-29 09:30:00 Test Item Value Reference Range Interpretation Comments Osmolality (test code = Osmolality) 320 280-300 [facility]2019-11-29 09:30:00 Test Item Value Reference Range Interpretation Comments Magnesium Lvl (test code = Magnesium 1.8 1.8-2.4 Lvl) [facility] HospitalLtjllneAEVNRMZJQC0398-29-79 09:30:00 Test Item Value Reference Range Interpretation Comments INR (test code = INR) 1.00 1 0.85-1.17 [facility] HospitalXlxlpjvWJBJMTZKMZ3942-15-04 09:30:00 Test Item Value Reference Range Interpretation Comments PT (test code = PT) 13.0 s 12.0-14.7 [facility] HospitalScwsqioXJSKERNWUW1146-31-25 09:30:00 Test Item Value Reference Range Interpretation Comments PTT (test code = PTT) 26.9 s 22.9-35.8 [facility] HospitalWuofzbvNTNNFRMEOK0133-88-29 09:30:00 Test Item Value Reference Range Interpretation Comments RBC Morph (test code = Normal (10/23/19 3:30 RBC Morph) AM) [facility] HospitalBqekuavZWDDJOVPMP6628-32-50 09:30:00 Test Item Value Reference Range Interpretation Comments Plt Morph (test code = Normal (10/23/19 3:30 Plt Morph) AM) [facility]2019-11-29 09:30:00 Test Item Value Reference Range Interpretation Comments Hgb A1C (test code = Hgb A1C) 7.8 [facility]2019-11-29 09:30:00 Test Item Value Reference Range Interpretation Comments Ketone Quantitative (test code = Ketone 0.08 Quantitative) [facility]2019-11-29 09:30:00 Test Item Value Reference Range Interpretation Comments Osmolality (test code = Osmolality) 320 280-300 [facility] [id number] 09:30:00 Test Item Value Reference Range Interpretation Comments Magnesium Lvl (test code = Magnesium 1.8 1.8-2.4 Lvl) [facility] Hos[id number] 09:30:00 Test Item Value Reference Range Interpretation Comments INR (test code = INR) 1.00 1 0.85-1.17 [facility] HospitalMxzopyaLJYCIYRBRS3927-75-41 09:30:00 Test Item Value Reference Range Interpretation Comments PT (test code = PT) 13.0 s 12.0-14.7 [facility] HospitalQkinnexKIBZDWZSKC3383-24-76 09:30:00 Test Item Value Reference Range Interpretation Comments PTT (test code = PTT) 26.9 s 22.9-35.8 [facility] Ho[id number] 09:30:00 Test Item Value Reference Range Interpretation Comments RBC Morph (test code = Normal (10/23/19 3:30 RBC Morph) AM) [facility] HospitalFsnspctGMIGDGTVGM3999-44-90 09:30:00 Test Item Value Reference Range Interpretation Comments Plt Morph (test code = Normal (10/23/19 3:30 Plt Morph) AM) [facility] [id number] 09:30:00 Test Item Value Reference Range Interpretation Comments Hgb A1C (test code = Hgb A1C) 7.8 [facility] [id number] 09:30:00 Test Item Value Reference Range Interpretation Comments Ketone Quantitative (test code = Ketone 0.08 Quantitative) [facility] [id number] 09:30:00 Test Item Value Reference Range Interpretation Comments Osmolality (test code = Osmolality) 320 280-300 [facility] [id number] 09:30:00 Test Item Value Reference Range Interpretation Comments Magnesium Lvl (test code = Magnesium 1.8 1.8-2.4 Lvl) [facility] HospitalHnehqelNKAJLVRMON5018-66-36 09:30:00 Test Item Value Reference Range Interpretation Comments INR (test code = INR) 1.00 1 0.85-1.17 [facility] HospitalEwnamjiAQIVUSVTHQ3141-56-25 09:30:00 Test Item Value Reference Range Interpretation Comments PT (test code = PT) 13.0 s 12.0-14.7 [facility] CenterWpgonyoFMQIPQZYMY1142-46-98 09:30:00 Test Item Value Reference Range Interpretation Comments PTT (test code = PTT) 26.9 s 22.9-35.8 [facility] CenterTqyyjcqTZZVRBQSSS7871-47-39 09:30:00 Test Item Value Reference Range Interpretation Comments RBC Morph (test code = Normal (10/23/19 3:30 RBC Morph) AM) [facility] CenterZbkuykhRSSMSGAZZZ4041-77-18 09:30:00 Test Item Value Reference Range Interpretation Comments Plt Morph (test code = Normal (10/23/19 3:30 Plt Morph) AM) [facility] [id number] 09:30:00 Test Item Value Reference Range Interpretation Comments Hgb A1C (test code = Hgb A1C) 7.8 [facility] [id number] 11:48:00 Test Item Value Reference Range Interpretation Comments GLUCOSE BEDSIDE TESTING (test code 175 MG/DL 60-99 H = GLUBED) BASIC METABOLIC [id number] 07:36:00 Test Item Value Reference Range Interpretation [...] 8.8 MG/DL 8.4-10.2 N CA) CBC W/AUTO [id number] 07:01:00 Test Item Value Reference Range Interpretation [...] 0.00 K/mm3 0.0-0.1 N NRBC#) GLUCOSE BEDSIDE [id number] 06:05:00 Test Item Value Reference Range Interpretation Comments GLUCOSE BEDSIDE TESTING (test code 175 MG/DL 60-99 H = GLUBED) GLUCOSE BEDSIDE [id number] 21:34:00 Test Item Value Reference Range Interpretation Comments GLUCOSE BEDSIDE TESTING (test code 274 MG/DL 60-99 H = GLUBED) GLUCOSE BEDSIDE [id number] 16:05:00 Test Item Value Reference Range Interpretation Comments GLUCOSE BEDSIDE TESTING (test code 186 MG/DL 60-99 H = GLUBED) GLUCOSE BEDSIDE [id number] 11:29:00 Test Item Value Reference Range Interpretation Comments GLUCOSE BEDSIDE TESTING (test code 347 MG/DL 60-99 HH = GLUBED) GLUCOSE BEDSIDE [id number] 07:59:00 Test Item Value Reference Range Interpretation Comments GLUCOSE BEDSIDE TESTING (test code 325 MG/DL 60-99 HH = GLUBED) BASIC METABOLIC [id number] 05:42:00 Test Item Value Reference Range Interpretation [...] 8.8 MG/DL 8.4-10.2 N CA) CBC W/AUTO [id number] 05:16:00 Test Item Value Reference Range Interpretation [...] 0.00 K/mm3 0.0-0.1 N NRBC#) GLUCOSE BEDSIDE [id number] 20:28:00 Test Item Value Reference Range Interpretation Comments GLUCOSE BEDSIDE TESTING (test code 253 MG/DL 60-99 H = GLUBED) GLUCOSE BEDSIDE [id number] 16:21:00 Test Item Value Reference Range Interpretation Comments GLUCOSE BEDSIDE TESTING (test code 237 MG/DL 60-99 H = GLUBED) GLUCOSE BEDSIDE [id number] 11:29:00 Test Item Value Reference Range Interpretation Comments GLUCOSE BEDSIDE TESTING (test code 187 MG/DL 60-99 H = GLUBED) GLUCOSE BEDSIDE [id number] 11:03:00 Test Item Value Reference Range Interpretation Comments GLUCOSE BEDSIDE TESTING (test code 202 MG/DL 60-99 H = GLUBED) GLUCOSE BEDSIDE [id number] 20:30:00 Test Item Value Reference Range Interpretation Comments GLUCOSE BEDSIDE TESTING (test code 142 MG/DL 60-99 H = GLUBED) GLUCOSE BEDSIDE [id number] 16:07:00 Test Item Value Reference Range Interpretation Comments GLUCOSE BEDSIDE TESTING (test code 368 MG/DL 60-99 HH = GLUBED) GLUCOSE BEDSIDE [id number] 16:07:00 Test Item Value Reference Range Interpretation Comments GLUCOSE BEDSIDE TESTING (test code 361 MG/DL 60-99 HH = GLUBED) GLUCOSE BEDSIDE [id number] 09:03:00 Test Item Value Reference Range Interpretation Comments GLUCOSE BEDSIDE TESTING (test code 211 MG/DL 60-99 H = GLUBED) GLUCOSE BEDSIDE [id number] 08:30:00 Test Item Value Reference Range Interpretation Comments GLUCOSE BEDSIDE TESTING (test code 199 MG/DL 60-99 H = GLUBED) GLUCOSE BEDSIDE [id number] 08:03:00 Test Item Value Reference Range Interpretation Comments GLUCOSE BEDSIDE TESTING (test code 190 MG/DL 60-99 H = GLUBED) GLUCOSE BEDSIDE [id number] 20:23:00 Test Item Value Reference Range Interpretation Comments GLUCOSE BEDSIDE TESTING (test code 222 MG/DL 60-99 H = GLUBED) GLUCOSE BEDSIDE [id number] 12:52:00 Test Item Value Reference Range Interpretation Comments GLUCOSE BEDSIDE TESTING (test code 204 MG/DL 60-99 H = GLUBED) GLUCOSE BEDSIDE [id number] 07:54:00 Test Item Value Reference Range Interpretation Comments GLUCOSE BEDSIDE TESTING (test code 186 MG/DL 60-99 H = GLUBED) ALLIE [id number] 07:32:00 Test Item Value Reference Range Interpretation Comments ALLIE DIRECT (test code Negative () Negat gianna <1:80 = ANADIR) Borderline 1:80 Positive >1:80Performed At: [facility] [id number] paige Leach MD Ph:[phone] AB HEPATITIS B [id number] 07:32:00 Test Item Value Reference Range Interpretation Comments AB HEPATITIS B POSITIVE SURFACE (test code = HBSAB) CLIN ICAL INTERPRETATION OF IMMUNE STATUS *NEGATIVE: Inconsistent wi th immunity to HBV infection, less than 5.0 mIU/mL POSITIVE : Consistent with immunity to HBV infectio n, greater than 10.0 mIU/mL AB HEPATITIS B [id number] 07:32:00 Test Item Value Reference Range Interpretation Comments AB HEPATITIS B CORE (test code = POSITIVE NONREACTIVE HBCAB) AB HEPATITIS C [id number] 07:32:00 Test Item Value Reference Range Interpretation Comments AB HEPATITIS C (test code = HCVAB) NEGATIVE NONREACTIVE AB DNA DOUBLE [id number] 07:32:00 Test Item Value Reference Range Interpretation Comments AB DNA DOUBLE STRAND 1 IU/mL 0-9 Negati ve <5 Equivocal (test code = DNADSAB) 5 - 9 Positive >9Performed At: HD [facility] [id number] paige Leach MD Ph:[phone] COMPLEMENT [id number] 07:32:00 Test Item Value Reference Range Interpretation Comments COMPLEMENT C3 (test 131 mg/dL 82-167 Performe d At: HD code = COMC3) [facility] [address] [id number] Vinicio Leach MD Ph:[phone] COMPLEMENT [id number] 07:32:00 Test Item Value Reference Range Interpretation Comments COMPLEMENT C4 (test code = COMC4) 35 mg/dL 14-44 BASIC METABOLIC [id number] 05:09:00 Test Item Value Reference Range Interpretation [...] 8.6 MG/DL 8.4-10.2 N CA) CBC W/AUTO [id number] 04:50:00 Test Item Value Reference Range Interpretation [...] 0.02 K/mm3 0.0-0.1 N NRBC#) GLUCOSE BEDSIDE [id number] 22:11:00 Test Item Value Reference Range Interpretation Comments GLUCOSE BEDSIDE TESTING (test code 242 MG/DL 60-99 H = GLUBED) GLUCOSE BEDSIDE [id number] 21:10:00 Test Item Value Reference Range Interpretation Comments GLUCOSE BEDSIDE TESTING (test code 213 MG/DL 60-99 H = GLUBED) GLUCOSE BEDSIDE [id number] 16:23:00 Test Item Value Reference Range Interpretation Comments GLUCOSE BEDSIDE TESTING (test code 164 MG/DL 60-99 H = GLUBED) GLUCOSE BEDSIDE [id number] 12:33:00 Test Item Value Reference Range Interpretation Comments GLUCOSE BEDSIDE TESTING (test code 287 MG/DL 60-99 H = GLUBED) GLUCOSE BEDSIDE [id number] 08:34:00 Test Item Value Reference Range Interpretation Comments GLUCOSE BEDSIDE TESTING (test code 233 MG/DL 60-99 H = GLUBED) - [facility] [id number] 07:50:00 Patient Name: CITLALY DAVIS Unit No: [id number] EXAMS: CPT CODE: [id number] US [facility] ACCESS [id number] Procedure: Right IJ tunneled, cuffed hemodialysis catheter placement. Location: Clinical Indication: Renal Failure Technique: Written informed [...] accessed with a 21- gauge needle and 5-Botswanan micropuncture set. An image was stored for [...] m2): Air Kerma (mGy): Trnscrpt: 07/29/2019 (0750) JasonRB24 [facility] NAME: CITLALY DAVIS [id number] PHYS: DOTH - [place] [address] : 1960 AGE: 59 SEX: F LOC: Z.343 A PHONE #: [phone] EXAM DATE: 07/28/2019 STATUS: ADM IN FAX #: [phone] RAD #: D/C DT PAGE 1 Signed Report- [facility] ACC [id number] 07:50:00 Patient Name: CITLALY DAVIS Unit No: [id number] EXAMS: CPT CODE: [id number] [facility] GUID CL[facility] ACC DEV [id number] Procedure: Right IJ tunneled, cuffed hemodialysis catheter placement. Location: B2 Clinical Indication: Renal Failure Technique: Written informed consent was obtained. Total fluoroscopy time was 0.3 minutes. Air kerma was 2.9 mGy. All elements of maximum sterile barrier technique were utilized thr oughout the procedure. Moderate sedation was given using Versed and fentanyl. Intraservice moderate sedation time was 30 minutes. Continuous cardiopulmonary monitoring was performed by the nurse. Ultrasound of the right IJ showed the vessel to be patent and compressible. Using ultrasound guidance, theright IJ was accessed with a 21-gauge needle and 5-Botswanan micropuncture set. An image was stored fordocumentation. A 035 wire was passed into the [...] m2): Air Kerma (mGy): Trnscrpt: 07/29/2019 (0750) JasonRB24 [facility] NAME: CITLALY DAVIS [id number] [address] PHYS: Gerry DELGADO Do, [place] [address] : 1960 AGE: 59 SEX: F LOC: Lili Walker PHONE #: [phone] EXAM DATE: 07/28/2019 STATUS: ADM IN FAX #: [phone] RAD #: D/C DT PAGE 1 Signed ReportUR CREATININE CLEARANCE [id number] 07:24:00 Test Item Value Reference Range Interpretation Comments CREATININE CLEARANCE RESULT (test 9.2 ML/MIN 85-125 L code = CREATCLR) CREATININE (test code = CREAT) 5.30 MG/DL 0.52-1.04 H UR CREATININE RANDOM (test code = 78.8 CREATU) UR CREATININE 24HR (test code = 0.66 GM/DAY 0.60-1.80 N [id number]) UR VOLUME (test code = VOL) 850 ML 800-1800 N SURFACE AREA (test code = SURFAR) 1.64 UR PROTEIN [id number] 07:24:00 Test Item Value Reference Range Interpretation Comments UR TOTAL PROTEIN 428 mg/dL Not Estab. Results con firmed (test code = PROTEU) ondilut ion. UR ALBUMIN % (test 54.2 % () code = ALBEU%) UR MWXYD-6-XYRGLNLJ % 2.9 % () (test code = A1GU%) UR KXRPW-2-WQZYPBMO % 10.7 % () (test code = A2GU%) UR BETA GLOBULIN % 14.3 % () (test code = BGU%) UR GAMMA GLOBULIN % 17.9 % () (test code = GGU%) UR PROT Protein ELECTROPHORESIS electrophore sis scan INTERP (test code = will fol low via ELEUINT) computer,mail, or mail officer delivery.Perfor med At: HD [facility] [address] [place], [place] [id number] Kyle L MD Ph:[phone] rform ed At: DA [facility] [address] [place] [id number] h CN MD Ph:[phone] angella rosey reported re sult: Edited by: INFC Nallely on 07/28/19:838104 /03/1 9 1708: UR PROT KUSUM INT previously reported as: M SPIKE % (test code Not Observed % Not Observed = MSPIKE%) PROTEIN ELECTROPHORESIS [id number] 07:24:00 Test Item Value Reference Range Interpretation Comments TOTAL PROTEIN 6.2 g/dL 6.0-8.5 (test code = PROTE) ALBUMIN (test 2.80 g/dL 2.9-4.4 L code = ALBE) KDUZX-6-NPPVRSIR 0.20 g/dL 0.0-0.4 (test code = A1G) GDFHO-9-DHNKSSQD 0.80 g/dL 0.4-1.0 (test code = A2G) [...] = will follow via ELEINT) computer,mail, or mail officer delivery.Perfor med At: [facility] [address] [place] [id number] paige Leach MD Ph:[phone] rformed At: DA [facility] [address] [facility] [address] [place] [id number] h CN MD Ph:[phone] [id number] 07:24:00 Test Item Value Reference Range Interpretation Comments FERRITIN (test code = [place]) 47.8 NG/ML 11.1-264 N BASIC METABOLIC [id number] 05:39:00 Test Item Value Reference Range Interpretation [...] 9.2 MG/DL 8.4-10.2 N CA) CBC W/AUTO [id number] 05:07:00 Test Item Value Reference Range Interpretation [...] 0.00 K/mm3 0.0-0.1 N NRBC#) GLUCOSE BEDSIDE [id number] 21:56:00 Test Item Value Reference Range Interpretation Comments GLUCOSE BEDSIDE TESTING (test code 245 MG/DL 60-99 H = GLUBED) AB HEPATITIS B [id number] 14:17:00 Test Item Value Reference Range Interpretation Comments AB HEPATITIS B POSITIVE SURFACE (test code = HBSAB) CLIN ICAL INTERPRETATION OF IMMUNE STATUS *NEGATIVE: Inconsistent wi th immunity to HBV infection, less than 5.0 mIU/mL POSITIVE : Consistent with immunity to HBV infectio n, greater than 10.0 mIU/mL UNABLE TO DRAW BLOOD, REASON: CBNNOTIFIED PATIENT CARE STAFF: WAI IGNACIO 07/28/19 AT 1233 BY Tomeka Mcdaniels HEPATITIS B [id number] 14:17:00 Test Item Value Reference Range Interpretation Comments AG HEPATITIS B SURFACE (test code = NEGATIVE NONREACTIVE HBSAG) UNABLE TO DRAW BLOOD, REASON: CBNNOTIFIED PATIENT CARE STAFF: WAI IGNACIO 07/28/19 AT 1233 BY Tomeka Mcdaniels HEPATITIS B [id number] 14:17:00 Test Item Value Reference Range Interpretation Comments AB HEPATITIS B CORE (test code = POSITIVE NONREACTIVE HBCAB) UNABLE TO DRAW BLOOD, REASON: CBNNOTIFIED PATIENT CARE STAFF: WAI IGNACIO 07/28/19 AT 1233 BY Tomeka Mcdaniels HEPATITIS C [id number] 14:17:00 Test Item Value Reference Range Interpretation Comments AB HEPATITIS C (test code = HCVAB) NEGATIVE NONREACTIVE UNABLE TO DRAW BLOOD, REASON: CBNNOTIFIED PATIENT CARE STAFF: WAI IGNACIO 07/28/19 AT 123 BY Tomeka Mcdaniels HEPATITIS B [id number] 13:58:00 Test Item Value Reference Range Interpretation Comments AB HEPATITIS B SURFACE (test code = HBSAB) UNABLE TO DRAW BLOOD, REASON: CBNNOTIFIED PATIENT CARE STAFF: WAI IGNACIO 07/28/19 AT 1233 BY Tomeka Mcdaniels HEPATITIS B [id number] 13:58:00 Test Item Value Reference Range Interpretation Comments AG HEPATITIS B SURFACE (test code = NEGATIVE NONREACTIVE HBSAG) UNABLE TO DRAW BLOOD, REASON: CBNNOTIFIED PATIENT CARE STAFF: WAI IGNACIO 07/28/19 AT 123 BY Tomeka Mcdaniels HEPATITIS B [id number] 13:58:00 Test Item Value Reference Range Interpretation Comments AB HEPATITIS B CORE (test code = HBCAB) NONREACTIVE UNABLE TO DRAW BLOOD, REASON: CBNNOTIFIED PATIENT CARE STAFF: WAI IGNACIO 07/28/19 AT 1233 BY Tomeka Mcdaniels HEPATITIS C [id number] 13:58:00 Test Item Value Reference Range Interpretation Comments AB HEPATITIS C (test code = HCVAB) NONREACTIVE UNABLE TO DRAW BLOOD, REASON: CBNNOTIFIED PATIENT CARE STAFF: WAI IGNACIO 07/28/19 AT 1233 BY Tomeka McdanielsROTHROMBIN [id number] 13:00:00 Test Item Value Reference Range Interpretation [...] myocar dial infarction. 2.0 - 3.0 3. Heel Attacher Wood al prosthesis hear t valves, recurre nt systemic emboli sm. 3.0 - 4.5 Comments to Critical Care Transport Nurse: NONEUNABLE TO DRAW BLOOD, REASON: CBNNOTIFIED PATIENT CARE STAFF: WAI IGNACIO 07/28/19 AT 1234 BY Tomeka Mcdaniels LynnGLUCOSE BEDSIDE [id number] 11:57:00 Test Item Value Reference Range Interpretation Comments GLUCOSE BEDSIDE TESTING (test code 203 MG/DL 60-99 H = GLUBED) GLUCOSE BEDSIDE [id number] 10:09:00 Test Item Value Reference Range Interpretation Comments GLUCOSE BEDSIDE TESTING (test code 182 MG/DL 60-99 H = GLUBED) BASIC METABOLIC [id number] 04:51:00 Test Item Value Reference Range Interpretation [...] 8.9 MG/DL 8.4-10.2 N CA) CBC W/AUTO [id number] 04:30:00 Test Item Value Reference Range Interpretation [...] 0.00 K/mm3 0.0-0.1 N NRBC#) GLUCOSE BEDSIDE [id number] 01:07:00 Test Item Value Reference Range Interpretation Comments GLUCOSE BEDSIDE TESTING (test code 251 MG/DL 60-99 H = GLUBED) GLUCOSE BEDSIDE [id number] 21:56:00 Test Item Value Reference Range Interpretation Comments GLUCOSE BEDSIDE TESTING (test code 192 MG/DL 60-99 H = GLUBED) HEPATITIS B SURF AB, [id number] 18:50:00 Test Item Value Reference Range Interpretation [...] ~~~~~~~~~~~~~~~ ~~~~~~~ ~~~~~~~~~~~~~~~ ~~~~~~~ ~~~~ GLUCOSE BEDSIDE [id number] 16:17:00 Test Item Value Reference Range Interpretation Comments GLUCOSE BEDSIDE TESTING (test code 205 MG/DL 60-99 H = GLUBED) GLUCOSE BEDSIDE [id number] 12:44:00 Test Item Value Reference Range Interpretation Comments GLUCOSE BEDSIDE TESTING (test code 274 MG/DL 60-99 H = GLUBED) ALLIE [id number] 11:08:00 Test Item Value Reference Range Interpretation Comments ALLIE DIRECT (test code = ANADIR) NEGATIVE AB HEPATITIS B [id number] 11:08:00 Test Item Value Reference Range Interpretation Comments AB HEPATITIS B POSITIVE SURFACE (test code = HBSAB) CLIN ICAL INTERPRETATION OF IMMUNE STATUS *NEGATIVE: Inconsistent wi th immunity to HBV infection, less than 5.0 mIU/mL POSITIVE : Consistent with immunity to HBV infectio n, greater than 10.0 mIU/mL AB HEPATITIS B [id number] 11:08:00 Test Item Value Reference Range Interpretation Comments AB HEPATITIS B CORE (test code = POSITIVE NONREACTIVE HBCAB) AB HEPATITIS C [id number] 11:08:00 Test Item Value Reference Range Interpretation Comments AB HEPATITIS C (test code = HCVAB) NEGATIVE NONREACTIVE AB DNA DOUBLE [id number] 11:08:00 Test Item Value Reference Range Interpretation Comments AB DNA DOUBLE STRAND (test code = IU/ml 0-9 DNADSAB) COMPLEMENT [id number] 11:08:00 Test Item Value Reference Range Interpretation Comments COMPLEMENT C3 (test 131 mg/dL 82-167 Performe d At: HD code = COMC3) [facility] [address] [place], [place] [id number] Vinicio Leach MD Ph:[phone] COMPLEMENT [id number] 11:08:00 Test Item Value Reference Range Interpretation Comments COMPLEMENT C4 (test code = COMC4) 35 mg/dL 14-44 GLUCOSE BEDSIDE [id number] 08:24:00 Test Item Value Reference Range Interpretation Comments GLUCOSE BEDSIDE TESTING (test code 198 MG/DL 60-99 H = GLUBED) GLUCOSE BEDSIDE [id number] 20:14:00 Test Item Value Reference Range Interpretation Comments GLUCOSE BEDSIDE TESTING (test code 246 MG/DL 60-99 H = GLUBED) UR PROTEIN [id number] 14:32:00 Test Item Value Reference Range Interpretation Comments UR PROTEIN RANDOM (test code 629 MG/DL 0-11.9 H = PROTU) UR PROTEIN 24HR (test code = 5346.50 MG/24HRS 0.0-200.0 H [id number]) UR VOLUME (test code = VOL) 850 ML 800-1800 N GLUCOSE BEDSIDE [id number] 14:28:00 Test Item Value Reference Range Interpretation Comments GLUCOSE BEDSIDE TESTING (test code 230 MG/DL 60-99 H = GLUBED) GLUCOSE BEDSIDE [id number] 14:28:00 Test Item Value Reference Range Interpretation Comments GLUCOSE BEDSIDE TESTING (test code 240 MG/DL 60-99 H = GLUBED) UR CREATININE CLEARANCE [id number] 14:02:00 Test Item Value Reference Range Interpretation Comments CREATININE CLEARANCE RESULT (test 9.2 ML/MIN 85-125 L code = CREATCLR) CREATININE (test code = CREAT) 5.30 MG/DL 0.52-1.04 H UR CREATININE RANDOM (test code = 78.8 CREATU) UR CREATININE 24HR (test code = 0.66 GM/DAY 0.60-1.80 N [id number]) UR VOLUME (test code = VOL) 850 ML 800-1800 N SURFACE AREA (test code = SURFAR) 1.64 UR PROTEIN [id number] 14:02:00 Test Item Value Reference Range Interpretation Comments UR TOTAL PROTEIN (test code = PROTEU) MG/DL 0-149 UR ALBUMIN % (test code = ALBEU%) % UR LPJXW-0-RCPHUFMV % (test code = % A1GU%) UR VPHXG-7-RUDPUJAZ % (test code = % A2GU%) UR BETA GLOBULIN % (test code = BGU%) % UR GAMMA GLOBULIN % (test code = GGU%) % M SPIKE % (test code = MSPIKE%) % UR PROTEIN [id number] 14:01:00 Test Item Value Reference Range Interpretation Comments UR PROTEIN RANDOM (test code = MG/DL 0-11.9 PROTU) UR PROTEIN 24HR (test code = MG/24HRS 0.0-200.0 [id number]) UR VOLUME (test code = VOL) 850 ML 800-1800 N UR CREATININE CLEARANCE [id number] 13:57:00 Test Item Value Reference Range Interpretation Comments CREATININE CLEARANCE RESULT (test ML/MIN 85-125 code = CREATCLR) CREATININE (test code = CREAT) 5.30 MG/DL 0.52-1.04 H UR CREATININE RANDOM (test code = CREATU) UR CREATININE 24HR (test code = GM/DAY 0.60-1.80 AROW32G) UR VOLUME (test code = VOL) 850 ML 800-1800 N SURFACE AREA (test code = SURFAR) 1.64 UR PROTEIN [id number] 13:57:00 Test Item Value Reference Range Interpretation Comments UR TOTAL PROTEIN (test code = PROTEU) MG/DL 0-149 UR ALBUMIN % (test code = ALBEU%) % UR VYVFW-3-XXWZAXVY % (test code = % A1GU%) UR PAODJ-5-MMVIBBAE % (test code = % A2GU%) UR BETA GLOBULIN % (test code = BGU%) % UR GAMMA GLOBULIN % (test code = GGU%) % M SPIKE % (test code = MSPIKE%) % UR CREATININE CLEARANCE [id number] 13:56:00 Test Item Value Reference Range Interpretation Comments CREATININE CLEARANCE RESULT (test ML/MIN 85-125 code = CREATCLR) CREATININE (test code = CREAT) MG/DL 0.52-1.04 UR CREATININE RANDOM (test code = CREATU) UR CREATININE 24HR (test code = GM/DAY 0.60-1.80 [id number]) UR VOLUME (test code = VOL) ML 800-1800 SURFACE AREA (test code = SURFAR) 1.64 UR PROTEIN [id number] 13:56:00 Test Item Value Reference Range Interpretation Comments UR TOTAL PROTEIN (test code = PROTEU) MG/DL 0-149 UR ALBUMIN % (test code = ALBEU%) % UR UGNWU-7-XYLVGUJX % (test code = % A1GU%) UR VNLTN-9-TILSZFVC % (test code = % A2GU%) UR BETA GLOBULIN % (test code = BGU%) % UR GAMMA GLOBULIN % (test code = GGU%) % M SPIKE % (test code = MSPIKE%) % GLUCOSE BEDSIDE [id number] 08:53:00 Test Item Value Reference Range Interpretation Comments GLUCOSE BEDSIDE TESTING (test code 168 MG/DL 60-99 H = GLUBED) B-TYPE NATRIURETIC [id number] 06:21:00 Test Item Value Reference Range Interpretation Comments B-TYPE NATRIURETIC PEPTIDE (test 843.0 PG/ML 0-100 H code = BNP) COMPREHENSIVE METABOLIC [id number] 06:08:00 Test Item Value Reference Range Interpretation [...] UNITS/L 38-126 H (test code = ALKP) [id number] 06:08:00 Test Item Value Reference Range Interpretation Comments PHOSPHOROUS (test code = PHOS) 5.7 MG/DL 2.5-4.5 H [id number] 06:08:00 Test Item Value Reference Range Interpretation Comments MAGNESIUM (test code = MAG) 2.1 MG/DL 1.6-2.3 N CBC W/AUTO [id number] 05:42:00 Test Item Value Reference Range Interpretation [...] 0.00 K/mm3 0.0-0.1 N NRBC#) GLUCOSE BEDSIDE [id number] 20:08:00 Test Item Value Reference Range Interpretation Comments GLUCOSE BEDSIDE TESTING (test code 132 MG/DL 60-99 H = GLUBED) - US RETROPERITONEAL [id number] 16:54:00 Patient Name: CITLALY DAVIS Unit No: [id number] EXAMS: CPT CODE: [id number] US RETROPERITONEAL COM 09501 W1 EXAM: Retroperitoneal ultrasound HISTORY: CKD TECHNIQUE: [...] thickness and echogenicity. IMPRESSION: Normal kidneys. at 1651 Reported and signed by: Rian Juarez MD CC: Manny Tucker MD; Augustine Hdz Technologist: Chelsea Garcia RDMS(OB)(AB) Transcrpt Date/Tm/Trnsp: 07/25/2019 (3186) [id number] Orig Print D/T: S: 07/25/2019 (7528) [facility] NAME: CITLALY DAVIS [id number] PHYS: [place] [address] :1960 AGE: 59 SEX: F LOC: Lili A PHONE #: [phone] EXAM DATE: 07/25/2019 STATUS: ADM IN FAX #: [phone] RADIOLOGY NO: PAGE 1 Signed ReportURINALYSIS [id number] 16:13:00 Test Item Value Reference Range Interpretation [...] = UACULT) SOURCE OF URINE: CLEAN CATCHUA [id number] 16:13:00 Test Item Value Reference Range Interpretation Comments UA RBC (test code = RBCU) 5-10 RBC/HPF 0-3 A UA WBC (test code = XWBCU) 5-9 WBC/HPF 0-5 A UA EPITHELIAL CELLS (test code = FEW EPI/HPF FEW EPIU) UA BACTERIA (test code = XBACU) FEW NONE UA MUCUS (test code = MUCU) SLIGHT #/LPF NONE SOURCE OF URINE: CLEAN CATCHGLUCOSE BEDSIDE [id number] 15:53:00 Test Item Value Reference Range Interpretation Comments GLUCOSE BEDSIDE TESTING (test code 141 MG/DL 60-99 H = GLUBED) ALLIE [id number] 15:48:00 Test Item Value Reference Range Interpretation Comments ALLIE DIRECT (test code = ANADIR) NEGATIVE AB HEPATITIS B [id number] 15:48:00 Test Item Value Reference Range Interpretation Comments AB HEPATITIS B POSITIVE SURFACE (test code = HBSAB) CLIN ICAL INTERPRETATION OF IMMUNE STATUS *NEGATIVE: Inconsistent wi th immunity to HBV infection, less than 5.0 mIU/mL POSITIVE : Consistent with immunity to HBV infectio n, greater than 10.0 mIU/mL AB HEPATITIS B [id number] 15:48:00 Test Item Value Reference Range Interpretation Comments AB HEPATITIS B CORE (test code = POSITIVE NONREACTIVE HBCAB) AB HEPATITIS C [id number] 15:48:00 Test Item Value Reference Range Interpretation Comments AB HEPATITIS C (test code = HCVAB) NEGATIVE NONREACTIVE AB DNA DOUBLE [id number] 15:48:00 Test Item Value Reference Range Interpretation Comments AB DNA DOUBLE STRAND (test code = IU/ml 0-9 DNADSAB) COMPLEMENT [id number] 15:48:00 Test Item Value Reference Range Interpretation Comments COMPLEMENT C3 (test code = COMC3) mg/dl 82-167 COMPLEMENT [id number] 15:48:00 Test Item Value Reference Range Interpretation Comments COMPLEMENT C4 (test code = COMC4) mg/dl 14-44 URINALYSIS [id number] 15:43:00 Test Item Value Reference Range Interpretation [...] = UACULT) SOURCE OF URINE: CLEAN CATCHUA [id number] 15:43:00 Test Item Value Reference Range Interpretation Comments UA RBC (test code = RBCU) RBC/HPF 0-3 UA WBC (test code = XWBCU) WBC/HPF 0-5 UA EPITHELIAL CELLS (test code = EPI/HPF FEW EPIU) UA BACTERIA (test code = XBACU) NONE SOURCE OF URINE: CLEAN CATCHURINALYSIS [id number] 15:43:00 Test Item Value Reference Range Interpretation [...] NITRITE DIPSTICK (test code NEGATIVE NEGATIVE = CDAEN) UA LEUKOCYTE ESTERASE DIPSTICK 100 /mm3 NEGATIVE A (test code = LEUU) UA CULTURE NEEDED? (test code Criteria Culture Chk = UACULT) SOURCE OF URINE: CLEAN CATCHUA [id number] 15:43:00 Test Item Value Reference Range Interpretation Comments UA RBC (test code = RBCU) RBC/HPF 0-3 UA WBC (test code = XWBCU) WBC/HPF 0-5 UA EPITHELIAL CELLS (test code = EPI/HPF FEW EPIU) UA BACTERIA (test code = XBACU) NONE SOURCE OF URINE: CLEAN CATCHPROTEIN ELECTROPHORESIS [id number] 15:07:00 Test Item Value Reference Range Interpretation Comments TOTAL PROTEIN (test code = PROTE) G/DL 6.0-8.5 ALBUMIN (test code = ALBE) G/DL 3.5-5.5 TZDUS-2-BGIWIOIC (test code = A1G) G/DL 0.2-0.5 RCCLO-3-GEFMISYB (test code = A2G) G/DL 0.2-1.1 BETA GLOBULIN (test code = BG) G/DL 0.5-1.2 GAMMA GLOBULIN (test code = GG) G/DL 0.5-1.5 M-SPIKE,SERUM (test code = MSPIKES) NOT OBSERVE GLOBULIN ELECT (test code = GLOBE) ALBUMIN/GLOBULIN RATIO (test code = AGE) PROT.ELECTROPH.INTERPRETATION (test code = ELEINT) [id number] 15:07:00 Test Item Value Reference Range Interpretation [...] 23 % 12-57 N FESAT) PARATHYROID HORMONE [id number] 14:43:00 Test Item Value Reference Range Interpretation [...] 23 % 12-57 N FESAT) PARATHYROID HORMONE [id number] 14:40:00 Test Item Value Reference Range Interpretation Comments PARATHYROID HORMONE INTACT (test code pg/mL 7.5-53.5 = PARAI) FE W/TOTAL IRON BINDING [id number] 14:30:00 Test Item Value Reference Range Interpretation Comments SERUM IRON (test code = IRON) 60 MCG/DL 37-170 N TOTAL IRON BINDING CAPACITY (test MCG/DL 265-497 code = TIBC) IRON SATURATION (test code = FESAT) % 12-57 PARATHYROID HORMONE [id number] 14:30:00 Test Item Value Reference Range Interpretation Comments PARATHYROID HORMONE INTACT (test code pg/mL 7.5-53.5 = PARAI) GLUCOSE BEDSIDE [id number] 11:26:00 Test Item Value Reference Range Interpretation Comments GLUCOSE BEDSIDE TESTING (test code 171 MG/DL 60-99 H = GLUBED) GLUCOSE BEDSIDE [id number] 08:01:00 Test Item Value Reference Range Interpretation Comments GLUCOSE BEDSIDE TESTING (test code 142 MG/DL 60-99 H = GLUBED) BASIC METABOLIC [id number] 07:01:00 Test Item Value Reference Range Interpretation [...] code = 8.8 MG/DL 8.4-10.2 N CA) [id number] 07:01:00 Test Item Value Reference Range Interpretation Comments TROPONIN-I (test code = TROPI) 0.034 NG/ML 0.012-0.033 H BASIC METABOLIC [id number] 06:57:00 Test Item Value Reference Range Interpretation [...] code = 8.8 MG/DL 8.4-10.2 N CA) [id number] 06:57:00 Test Item Value Reference Range Interpretation Comments TROPONIN-I (test code = TROPI) NG/ML 0.0-0.045 CBC W/AUTO [id number] 06:38:00 Test Item Value Reference Range Interpretation [...] code = 0.00 K/mm3 0.0-0.1 N NRBC#) [id number] 22:53:00 Test Item Value Reference Range Interpretation Comments TROPONIN-I (test code = TROPI) 0.017 NG/ML 0.012-0.033 B-TYPE NATRIURETIC [id number] 16:01:00 Test Item Value Reference Range Interpretation Comments B-TYPE NATRIURETIC PEPTIDE (test 482.0 PG/ML 0-100 H code = BNP) COMPREHENSIVE METABOLIC [id number] 15:53:00 Test Item Value Reference Range Interpretation Comments SODIUM (test code = 137 MMOL/L 137-145 N NA) POTASSIUM (test code = 6.1 MMOL/L 3.5-5.1 HH MENA D TO OMARS & K) READBACK [...] UNITS/L 38-126 H (test code = ALKP) [id number] 15:53:00 Test Item Value Reference Range Interpretation Comments TROPONIN-I (test code = TROPI) 0.016 NG/ML 0.012-0.033 N COMPREHENSIVE METABOLIC [id number] 15:49:00 Test Item Value Reference Range Interpretation Comments SODIUM (test code = 137 MMOL/L 137-145 N NA) POTASSIUM (test code = 6.1 MMOL/L 3.5-5.1 HH MENA D TO OMARS & K) READBACK [...] UNITS/L 38-126 H (test code = ALKP) [id number] 15:49:00 Test Item Value Reference Range Interpretation Comments TROPONIN-I (test code = TROPI) NG/ML 0.0-0.045 - XR CHEST [id number] 15:35:00 Patient Name: CITLALY DAVIS Unit No: [id number] EXAMS: CPT CODE: [id number] XR CHEST 1V 13769 EXAM: XR Chest 1 View INDICATION: Chest [...] Ines Solares MD CC: Manny Tucker MD; Maribell Vences MD Technologist: [facility] STUDENT ; Maribell Daniel, RT(R) Transcrpt Date/Tm/Trnsp: 07/24/2019 (1537) [id number] Orig Print D/T: S: 07/24/2019 (1537) [facility] NAME: CITLALY DAVIS [id number] PHYS: [place] [address] : 1960 AGE: 59 SEX: F LOC: [facility] PHONE #: [phone] EXAM DATE: 07/24/2019 STATUS: REG ER FAX #: [phone] RADIOLOGY NO: PAGE 1 Signed ReportCBC W/AUTO [id number] 15:25:00 Test Item Value Reference Range Interpretation [...] 0.00 K/mm3 0.0-0.1 N NRBC#) BASIC METABOLIC [id number] 01:55:00 Test Item Value Reference Range Interpretation [...] 9.0 MG/DL 8.4-10.2 N CA) CBC W/O [id number] 01:42:00 Test Item Value Reference Range Interpretation [...]
--- NOTE | 2023-09-11 12:21 | EKG ---
Test Date: 2023-09-11 Test Time: 11:47:18 Wood Machinist: XENIA MEASUREMENT RESULTS: Intervals: Rate: 89 UT: 142 QRSD: 90 QT: 436 QTc: 530 [place]: P: 53 UT: 142 QRS: 91 T: 57 INTERPRETIVE STATEMENTS: Sinus rhythm with premature atrial complexes Rightward axis Inferior infarct, age undetermined Cannot rule out Anterior infarct, age undetermined Prolonged QT Abnormal ECG Compared to ECG 07/02/2022 21:24:46 Atrial premature complex(es) now present Right-axis deviation now present Atrial abnormality no longer present Myocardial infarct finding still present Electronically Signed On 09-11-23 12:20:45 CDT by Romero Fleming
--- NOTE | 2023-09-11 12:47 | RAD REPORT ---
EXAM DESCRIPTION: RADChest Single View09/11/2023 12:34 pm CLINICAL HISTORY: weakness COMPARISON: Chest Single View dated 04/08/2022 TECHNIQUE: Portable AP view of the chest. FINDINGS: Central interstitial prominence and patchy central fluffy opacities. No pneumothorax or e ffusion. The mediastinal contours are unremarkable. Mild cardiomegaly, stable. IMPRESSION: Findings suggestive of pulmonary edema as above.
[2023-09-11 13:12] LABS: Absolute Lymphocytes (CBC) 0.9 K/uL (0.7-4.9); Hematocrit 31.9 % (36.0-45.0); Lymphocytes % 7.7 % (15.3-44.8); MCV 84.5 fL (80-100); MPV 7.7 fL (7.6-11.3); Platelets 439 thou/uL (152-406); RBC Red Blood Cell Count 3.77 M/uL (3.86-4.86)
[2023-09-11] MEDS ORDERED: ONDANSETRON 4 MG/2 ML VIAL ONE (13:19)
[2023-09-11 13:37] LABS: Albumin 2.7 g/dL (3.4-5.0); Bilirubin Direct 0.2 mg/dL (0-0.2); Bilirubin Indirect, Calculated 0.3 mg/dL (0.2-0.8); Bilirubin Total 0.5 mg/dL (0.2-1.0); Potassium 3.6 mEq/L (3.5-5.1); Protein, Total 7.7 g/dL (6.4-8.2); Troponin High Sensitivity 271.8 pg/mL (<58.9)
[2023-09-11] MEDS ORDERED: INSULIN REGULAR (HUMAN) 100 UNIT/ML ONE (14:50)
--- NOTE | 2023-09-11 16:38 | ER ---
Nurse's Notes [facility] Name: Lita Ernst Age: 63 yrs Sex: Female : 1960 Arrival Date: 09/11/2023 Time: 11:12 Bed 12 Private MD: Diagnosis: Generalized weakness;Hyperglycemia Presentation: 09/11 11:30 Chief complaint: Spouse and/or significant other states: "This morning, the apartment mb9 loan and credit manager found her on the floor after sliding off the couch. She has been progressively getting more weak and out of it. She denies hitting her head and is only taking Aspirin. She was supposed to go to dialysis today but we were told to come here instead". Coronavirus screen: Vaccine status: Patient reports receiving the 2nd dose of the covid vaccine. Ebola Screen: No symptoms or risks identified at this time. Initial Sepsis Screen: Does the patient meet any 2 criteria? No. Patient's initial sepsis screen is negative. Does the patient have a suspected source of infection? No. Patient's initial sepsis screen is negative. Risk Assessment: Do you want to hurt yourself or someone else? Patient reports no desire to harm self or others. Onset of symptoms was September 11, 2023. 11:30 Method Of Arrival: Wheelchair 9 11:30 Acuity: JERAMY 3 mb9 Triage Assessment: 11:38 General: Appears in no apparent distress. Behavior is calm, cooperative. Pain: Denies mb9 pain. Neuro: Rojas Agitation-Sedation Scale (RASS): 0 - Alert and Calm Level of Consciousness is awake, alert, lethargic, Oriented to person, place, time, situation, Appropriate for age Reports weakness. Cardiovascular: Patient's skin is warm and dry. Respiratory: Airway is patent Respiratory effort is even, unlabored, Respiratory pattern is regular, symmetrical. GI: No signs and/or symptoms were reported involving the gastrointestinal system. : No signs and/or symptoms were reported regarding the genitourinary system. Derm: Skin is pink, warm \\T\\ dry. Musculoskeletal: Range of motion: intact in all extremities. 12:44 Cardiovascular: Dialysis shunt: in the left arm, with palpable thrill. ap3 Historical: - Allergies: 11:35 unknown med; mb9 - Home Meds: 11:35 Aspirin Oral [Active]; nifedipine 60 mg Oral Tablet, Extended Release 24 hr [Active]; mb9 carvedilol oral [Active]; atorvastatin oral [Active]; 11:37 Keppra Oral [Active]; mb9 - PMHx: 11:35 Cataracts; Diabetes - NIDDM; DIALYSIS MWF; Hypertension; mb9 11:37 Seizure; mb9 - PSHx: 11:35 dialysis on the left arm; mb9 - Immunization history:: Adult Immunizations up to date. - Social history:: Smoking status: Patient denies any tobacco usage or history of. Screenin:[facility] ED Fall Risk Assessment (Adult) History of falling in the last 3 months, ap3 including since admission Yes- fall prone (multiple falls) (3 pts) Confusion or Disorientation No (0 pts) Intoxicated or Sedated No (0 pts) Impaired Gait Yes (1 pt) Mobility Assist Device Used Yes (1 pt) Altered Elimination No (0 pt). Abuse screen: Denies threats or abuse. Nutritional screening: No deficits noted. Tuberculosis screening: No symptoms or risk factors identified. Assessment: 13:13 Reassessment: patient complains of nausea/vomiting. verbal orders received for IV ap3 zofran 4mg X's 1. 14:24 Reassessment: No changes from previously documented assessment. Patient and/or family ap3 updated on plan of care and expected duration. Pain level reassessed. Respiratory: Airway is patent Respiratory effort is even, unlabored, Respiratory pattern is regular, symmetrical. 16:28 Reassessment: No changes from previously documented assessment. Patient and/or family ap3 updated on plan of care and expected duration. Pain level reassessed. Vital Signs: 11:30 BP 133 / 65; Pulse 87; Resp 18; Temp 97.5; Pulse Ox 97% on R/A; Weight 81.65 kg; Height mb9 5 ft. 4 in. ; 14:24 BP 143 / 66; Pulse 81; Resp 18; Pulse Ox 96% on R/A; ap3 16:26 Weight 64.4 kg; ap3 11:30 Body Mass Index 30.90 (64.40 kg, 162.56 cm) mb9 ED Course: 11:17 Patient arrived in ED. im 11:26 Hudson Faust MD is Attending Physician. rt 11:35 Triage completed. mb9 11:35 Arm band placed on. mb9 11:42 EKG done, by ED staff, reviewed by Hudson Faust MD. mb9 12:14 Brook Fairbanks, RN is Primary Nurse. ap3 12:36 XRAY Chest (1 view) In Process Unspecified. EDMS 12:45 Patient has correct armband on for positive identification. Bed in low position. Call ap3 light in reach. Side rails up X2. Adult w/ patient. confidential secretary on. Pulse ox on. NIBP on. 13:09 Inserted saline lock: 20 gauge in right forearm, using aseptic technique. ,using nj1 aseptic technique. Ultrasound guided. Catheter tip well visualized within vasculature during placemet. Blood collected. 16:52 No provider procedures requiring assistance completed. IV discontinued, intact, ap3 bleeding controlled, No redness/swelling at site. Pressure dressing applied. 16:53 Provided Education on: discharge instruction. ap3 Administered Medications: 13:10 Drug: Ondansetron IVP 4 mg IVP once; over 2 minutes Route: IVP; Site: right wrist; ap3 14:42 Follow up: Response: No adverse reaction ap3 16:55 Follow up: Response: No adverse reaction ap3 14:42 Drug: Insulin Regular Human IVP 10 units IVP once {Co-Signature: iw (Beverly Erickson RN).} Route: IVP; Site: right wrist; 16:55 Follow up: Response: No adverse reaction ap3 Medication: 12:44 VIS not applicable for this client. ap3 Outcome: 16:38 Discharge ordered by MD. rt 16:52 Discharged to home via wheelchair, ap3 16:52 Condition: good 16:52 Discharge instructions given to patient, family, Instructed on discharge instructions, follow up and referral plans. Demonstrated understanding of instructions, follow-up care, 17:10 Patient left the ED. mb9 Signatures: Dispatcher [employer] EDDC Brook Fairbanks, RN SHALINI ap3 Yolanda Hernandez RN RN [email or web address] Hudson Faust MD MD rt Parris Cuadra RN RN nj1 Gala Gonzalez Irene RN iw Corrections: (The following items were deleted from the chart) 15:01 13:10 Inserted saline lock: 20 gauge in right forearm, using aseptic technique. ,using nj1 aseptic technique. Ultrasound guided. Catheter tip well visualized within vasculature during placemet. Blood collected. nj1
--- NOTE | 2023-09-11 16:38 | EDPHYS ---
Physician Documentation [facility] Name: Lita Ernst Age: 63 yrs Sex: Female : 1960 Arrival Date: 09/11/2023 Time: 11:12 Bed 12 Private MD: ED Physician Hudson Faust HPI: 09/11 12:25 This 63 yrs old Black Female presents to ER via Wheelchair with complaints of Slid off rt the couch, High Blood Sugar, Arm Pain. 12:25 Patient presents to the ED with generalized weakness starting this morning. Patient rt slid out of her couch today, denies hitting her head or denies any injury. Patient has had issues with controlling her blood pressure, blood sugars. She is a Saturday dialysis patient. Did not go to dialysis today. Denies other acute complaints at this time, symptoms are moderate severity, no other aggravating or alleviating factors.. Historical: - Allergies: 11:35 unknown med; mb9 - Home Meds: 11:35 Aspirin Oral [Active]; nifedipine 60 mg Oral Tablet, Extended Release 24 hr [Active]; mb9 carvedilol oral [Active]; atorvastatin oral [Active]; 11:37 Keppra Oral [Active]; mb9 - PMHx: 11:35 Cataracts; Diabetes - NIDDM; DIALYSIS MWF; Hypertension; mb9 11:37 Seizure; mb9 - PSHx: 11:35 dialysis on the left arm; mb9 - Immunization history:: Adult Immunizations up to date. - Social history:: Smoking status: Patient denies any tobacco usage or history of. ROS: 12:25 Constitutional: Negative for fever, chills, and weight loss, Cardiovascular: Negative rt for chest pain, palpitations, and edema, Respiratory: Negative for shortness of breath, cough, wheezing, and pleuritic chest pain, Abdomen/GI: Negative for abdominal pain, nausea, vomiting, diarrhea, and constipation, MS/Extremity: Negative for injury and deformity, Skin: Negative for injury, rash, and discoloration, Psych: Negative for depression, anxiety, suicide ideation, homicidal ideation, and hallucinations, 12:25 Neuro: Positive for weakness, Negative for altered mental status, Exam: 12:25 Constitutional: This is a well developed, well nourished patient who is awake, alert, rt and in no acute distress. Head/Face: Normocephalic, atraumatic. Chest/axilla: Normal chest wall appearance and motion. Nontender with no deformity. No lesions are appreciated. Cardiovascular: Regular rate and rhythm with a normal S1 and S2. No gallops, murmurs, or rubs. Normal PMI, no JVD. No pulse deficits. Respiratory: Lungs have equal breath sounds bilaterally, clear to auscultation and percussion. No rales, rhonchi or wheezes noted. No increased work of breathing, no retractions or nasal flaring. Abdomen/GI: Soft, non-tender, with normal bowel sounds. No distension or tympany. No guarding or rebound. No evidence of tenderness throughout. Skin: Warm, dry with normal turgor. Normal color with no rashes, no lesions, and no evidence of cellulitis. MS/ Extremity: Pulses equal, no cyanosis. Neurovascular intact. Full, normal range of motion. Neuro: Awake and alert, GCS 15, oriented to person, place, time, and situation. Cranial nerves II-XII grossly intact. Motor strength 5/5 in all extremities. Sensory grossly intact. Cerebellar exam normal. Normal gait. Psych: Awake, alert, with orientation to person, place and time. Behavior, mood, and affect are within normal limits. 12:25 ECG was reviewed by the Attending Physician. Vital Signs: 11:30 BP 133 / 65; Pulse 87; Resp 18; Temp 97.5; Pulse Ox 97% on R/A; Weight 81.65 kg; Height mb9 5 ft. 4 in. ; 14:24 BP 143 / 66; Pulse 81; Resp 18; Pulse Ox 96% on R/A; ap3 16:26 Weight 64.4 kg; ap3 11:30 Body Mass Index 30.90 (64.40 kg, 162.56 cm) mb9 MDM: 11:34 Patient medically screened. rt 17:33 Differential diagnosis: Hyperglycemia, ESRD, hyperkalemia, uremia, debility. Data rt reviewed: vital signs, nurses notes, lab test result(s), EKG, radiologic studies. Consideration of Admission/Observation Escalation of care including admission/observation considered. Patient with hyperglycemia, rapidly improving with insulin only. Strength is improving, patient is able to sit up without difficulty. I believe the patient's weakness is due to her debility, informed patient that she should get up and walk more frequently to develop more muscle strength. Discussed with patient's local company refrigerated truck driver who states that patient is appropriate for discharge. Patient likely to benefit from admission.. I considered the following discharge prescriptions or medication management in the emergency department Medications were administered in the Emergency Department. See MAR. Independent interpretation of the following test(s) in the Emergency Department X-Ray: My interpretation is No pneumonia seen on interpretation of x-ray images. Test considered but Not performed: CT: No head trauma, CT scan of the head not indicated. Care significantly affected by the following chronic conditions: Chronic Kidney Disease. Counseling: I had a detailed discussion with the patient and/or guardian regarding the historical points, exam findings, and any diagnostic results supporting the discharge/admit diagnosis, lab results, radiology results, the need for outpatient follow up, to return to the emergency department if symptoms worsen or persist or if there are any questions or concerns that arise at home. 09/11 11:41 Order name: Basic Metabolic Panel; Complete Time: 14:15 rt 09/11 11:41 Order name: CBC with Diff; Complete Time: 13:39 rt 09/11 11:41 Order name: LFT's; Complete Time: 14:15 rt 09/11 11:41 Order name: Magnesium; Complete Time: 14:15 rt 09/11 11:41 Order name: Troponin HS; Complete Time: 14:15 rt 09/11 16:04 Order name: Glucose, Ancillary Testing; Complete Time: 16:26 EDMS 09/11 11:41 Order name: XRAY Chest (1 view); Complete Time: 12:48 rt 09/11 11:41 Order name: EKG; Complete Time: 11:42 rt 09/11 11:41 Order name: Cardiac monitoring; Complete Time: 12:14 rt 09/11 11:41 Order name: EKG - Nurse/Tech; Complete Time: 11:42 rt 09/11 11:41 Order name: IV Saline Lock; Complete Time: 13:11 rt 09/11 11:41 Order name: Labs collected and sent; Complete Time: 13:11 rt 09/11 11:41 Order name: O2 Per Protocol; Complete Time: 12:14 rt 09/11 11:41 Order name: O2 Sat Monitoring; Complete Time: 12:14 rt EC:25 Rate is 89 beats/min. Rhythm is regular, Normal Sinus Rhythm with PACs. Right axis rt deviation noted. SD interval is normal. QRS interval is normal. QT interval is prolonged at 530 msec. No Q waves. Clinical impression: NSR w/ Non-specific ST/T Changes. Administered Medications: 13:10 Drug: Ondansetron IVP 4 mg IVP once; over 2 minutes Route: IVP; Site: right wrist; ap3 14:42 Follow up: Response: No adverse reaction ap3 16:55 Follow up: Response: No adverse reaction ap3 14:42 Drug: Insulin Regular Human IVP 10 units IVP once {Co-Signature: miguel ángel (Beverly Erickson3 RN).} Route: IVP; Site: right wrist; 16:55 Follow up: Response: No adverse reaction ap3 Disposition Summary: 09/11/23 16:38 Discharge Ordered Notes: Location: Home rt Problem: an ongoing problem rt Symptoms: have improved rt Condition: Stable rt Diagnosis - Generalized weakness rt - Hyperglycemia rt Followup: rt - With: Private Physician - When: 2 - 3 days - Reason: Discharge Instructions: - Discharge Summary Sheet rt - Hyperglycemia rt - Weakness rt Forms: - Medication Reconciliation Form rt - Thank You Letter rt - Antibiotic Education rt - Prescription Opioid Use rt - Patient Portal Instructions rt - Leadership Thank You Letter rt Signatures: Dispatcher [employer] Brook Green, RN RN ap3 Yolanda Hernandez, RN RN mb9 Hudson Faust MD MD rt Beverly Erickson RN iw
[2023-09-11 19:19] VITALS: TEMP 97.5
[2023-09-11 19:20] VITALS: BP 143/66; O2SAT 96
== END 2023-09-11 17:10 | disposition home or self-care (01) ==
LOC: ER 11:12
DX: E11.65 Type 2 diabetes mellitus with hyperglycemia (principal); I10 Essential (primary) hypertension; Z99.2 Dependence on renal dialysis; Z79.82 Long term (current) use of aspirin
CPT/HCPCS: 93005; 85025; 80048; 36415; 83735; 82947; 80076; 84484; 71045; J1815; J2405

== ENCOUNTER 2023-10-04 20:24 | Inpatient (IN) | payer OTHER ==
--- OUTSIDE RECORDS SUMMARY | 2023-10-04 21:02 | XMS REPORT | Continuity of Care Document ---
:[address] [facility] t Address [address] [facility] [address] [place] [address] Care Team Providers Name Role Phone ELOIAS CYR Primary Care Physician Unavailable [email or web address] Attending Clinician Unavailable KAYLEY JAMA Attending Clinician Unavailable Kayley Jama DO Attending Clinician Doctor Unassigned, Cole Attending Clinician Unavailable Chelsea Larose Attending Clinician Unavailable Rogelio Harley Attending Clinician Unavailable Helena LOYA, Angel Walker Attending Clinician Unavailable MARIBELL JOHNSON Attending Clinician Unavailable Hoa TRACY, Cody Bailey Attending Clinician [phone] Francisco J Tracy MD, Kirk Bass Attending Clinician [phone] Maribell Johnson MD Attending Clinician Cristin Dawson Attending Clinician Unavailable Vero Michaels Attending Clinician Unavailable FEDE PERALES Attending Clinician Unavailable Ezra TRACY, Svetlana Attending Clinician Fede Perales MD Attending Clinician [facility] Attending Clinician Unavailroula PANDEY Attending Clinician Unavailable SARAH BETH MALDONADO Attending Clinician Unavailable Gracie TRACY, Randy Attending Clinician Maddie Christianson DO Attending Clinician Erica TRACY, Sarah Beth Gillette Attending Clinician Eduardo-Sueo_A_AH Attending Clinician Unavailable Trini Escalante Attending Clinician _BANNER_Regina Admitting Clinician Unavailable KAYLEY JAMA Admitting Clinician Unavailable Chelsea Larose Admitting Clinician Unavailable Physician, No Primary or Family Admitting Clinician UnavailMoe Kennedy Admitting Clinician Unavailable KIRK RODRIGUEZ JR Admitting Clinician Unavailable Francisco J Tracy MD, Kirk Bass Admitting Clinician [phone] Jacqueline Mota Admitting Clinician Unavailable Vero Michaels Admitting Clinician Unavailable FEDE PERALES Admitting Clinician Unavailable Fede Perales MD Admitting Clinician KATHERIN Admitting Clinician Unavailable MADDIE CHRISTIANSON Admitting Clinician Unavailable Maddie Christianson DO Admitting Clinician Eduardo-Lukasz_A_AH Admitting Clinician Unavailable Trini Escalante Admitting Clinician Payers Payer Name Policy Type Policy Number Effective Date Expiration Date Milo mendoza [facility] [place] - [id number] [place] - [place] - [place] (MEDICARE REPLACEMENT/ADVANTA GE - HMO) [facility] [id number] 2022 00:00:00 [facility] [id number] 2021 (MEDICARE 00:00:00 REPLACEMENT HMO) [employer] [facility] [place] - [id number] 2019 [place] (MEDICARE 00:00:00 REPLACEMENT/ADVANTA GE - HMO) Problems Condition Condition Condition Status Onset Resolution Last Treating Co mments Source Name Details Category Date Date Treatment Clinician Date Hypertensi Hypertensi Disease Active U nivers ve ve 6-27 [place] Calciphyla Calciphyla Disease Active 2021-11 U nivers xis xis 1-29 ity of 00:00: [place] 00 Medical Branch ESRD (end ESRD (end Disease Active 2021-11 Uni vers stage stage 1-28 ity of renal renal 00:00: [place] disease) disease) 00 Medica l on on Branch dialysis dialysis Hyperkalem Hyperkalem Disease Active 2021-11 U nivers ia ia 1-25 ity of 00:00: [place] 00 Medical Branch AMS AMS Disease Active 2021-11 Univers (altered (altered 1-25 ity of mental mental 00:00: [place] status) [...] 4-29 it y of s s 00:00: [place] 00 Medical Branch ACUTE ACUTE Diagnosis Active 2018-112019-11-04 Mem oria INTRACEREB INTRACEREB 12-22 21:57:00 l RAL RAL 00:00: [place] HEMORRHAGE HEMORRHAGE 00 Active 10/22/2019 [facility] IPH IPH Diagnosis Active 2018-112019-10-23 Mem oria Active 12-22 02:28:00 l 10/22/2019 00:00: Matthew n [address] NONTRAUMAT NONTRAUMA Diagnosis Active 2019-11-04 Memoria IC TIC 21:57:00 l INTRACEREB INTRACEREB He rmann RAL RAL HEMORRHAGE HEMORRHAGE , U , U Active [facility] ILLNESS, ILLNESS, Diagnosis Active 2019-10-23 Memoria UNSPECIFIE UNSPECIFIE 02:28:00 l D D Active González [facility] Illness, Illness, Problem 2019-10-29 Memoria unspecifie unspecifie 22:28:52 l akash Claudio 10/29/2019 [facility] Type II Type II Problem Active 2019-10-29 Me gutierrez diabetes diabetes 22:28:52 l mellitus mellitus Matthew n uncontroll uncontroll ed ed (finding) (finding) Active Problem 10/29/2019 [facility] Allergies, Adverse Reactions, Alerts Allergy Allergy Status Severity Reaction(s) Onset Inactive Treating Comm ents Source Name Type Date Date Clinician No Known DA Active U 2022-0 [facility] 9 Clear s 00:00: [address] No Known DA Active U 2022-0 [facility] 3- [place] 00:00: [address] No Known DA Active U 2018-0 [facility]ie 06-11 [place] 00:00: [address] No Known DA Active U 2018-0 [facility] Allergie 06-11 Clear s 00:00: [address] No Known DA Active U 2007-0 [facility] Drug 06-02 [place] Intolera 00:00: [address] No Known DA Active U 2007-0 [facility] Contrast 05-28 [place] Allergie 00:00: [address] No Known DA Active U 2007-0 [facility] Drug 05-28 [place] Allergie 00:00: [address] No Known DA Active U 2008-0 [facility] Food 05-28 [place] Allergie 00:00: [address] No Known DA Active U 2008-0 [facility] Other 05-28 [place] Allergie 00:00: [address] NO KNOWN Drug Active Univers ALLERGIE Class ity of [facility] Family History Family Member Diagnosis Comments Start Date Stop Date Source Natural father Hypertension Universi ty [facility] Medical Branch Natural mother Hypertension Universi ty [facility] Social History Social Habit Start Date Stop Date Quantity Comments Source History of tobacco Passive smoker Un iversity of use [place] [facility] History SDOH Social Unive rsity of [facility] Med ical Together Branch History SDOH Social Unive rsity of [facility] Branch History SDOH Social Unive rsity of [facility] Medical Membership Branch History SDOH Social Unive rsity of [facility] Meetings Branch Gender identity Universit y [facility] Sexual orientation Univer sity of [place] [facility] History SDOH Food 2023-05-22 2023-05-22 1 Univers ity of Worry 00:00:00 00:00:00 [place] [facility] History SDOH Food 2023-05-22 2023-05-22 1 Univers ity of Scarcity 00:00:00 00:00:00 [place] [facility] History SDOH [...] o f Alcohol Std Drinks 00:00:00 00:00:00 [place] [facility] History SDOH 2023-05-22 2023-05-22 1 University o f Alcohol Binge 00:00:00 00:00:00 [place] Medic al Branch History SDAK Social 2023-05-22 2023-05-22 5 Unive rsity of Connections Phone 00:00:00 00:00:00 [place] M edical Branch History SDAK Social 2023-05-22 2023-05-22 5 Unive rsity of Connections Living 00:00:00 00:00:00 [place] [facility] History SDAK 2023-05-22 2023-05-22 3 University o f Physical Activity 00:00:00 00:00:00 [place] M edical DPW Branch History SDAK 2023-05-22 2023-05-22 1 University o f Physical Activity 00:00:00 00:00:00 [place] M edical MPS Branch History SDAK 2023-05-22 2023-05-22 5 University o f Financial 00:00:00 00:00:00 [place] [facility] History SDAK 2023-05-22 2023-05-22 2 University o f Housing Unable to 00:00:00 00:00:00 [place] M edical Pay Branch History SDAK 2023-05-22 2023-05-22 1 University o f Housing Places 00:00:00 00:00:00 [place] Medi denae Lived Branch History SDOH 2023-05-22 2023-05-22 2 University o f Housing Homeless 00:00:00 00:00:00 [place] dical Last Year Branch History of Social 2023-05-22 2023-05-22 Univers ity of function 00:00:00 00:00:00 [facility] Exposure to 2022-10-13 2022-10-23 Not sure [facility] SARS-CoV-2 (event) 00:00:00 10:09:00 [facility] Tobacco use and 2022-10-19 2022-10-19 Smokeless Universit y of exposure 00:00:00 00:00:00 tobacco non-user [facility] dical [place] Social History 2019-10-23 2019-10-23 [facility] 20:28:16 20:28:16 Sex [birth year] Universit y of 00:00:00 00:00:00 [facility] Smoking Status Start Date Stop Date Source Never smoked tobacco [facility] Medications Ordered Filled Start Stop Current Ordering Indication Dosage Frequency Signature Comments Components Source Medication Medication Date Date Medication? Clinician (SIG) Name Name ondansetron 2022-11- No 4mg 4 mg, Slow Univers (ZOFRAN 0-20 10-20 IV Push, ity of (PF)) 15:30: 15:47 ONCE, 1 [place] injection 4 00 :00 dose, On Medi denae mg Fri Branch 09/13/23 at 1030, MARIKA levETIRAcet Yes [id number] 250mg Take 1 Univers am 250 mg 7-03 tablet by ity o f tablet 00:00: mouth [place] 00 every Medical Saturday, Branch and Saturday in the evening. aspirin 81 0 Yes [id number] 81mg Take 1 Univers mg chewable 7-03 tablet by ity of tablet 00:00: mouth in [place] 00 the Medical morning. Branch levETIRAcet Yes [id number] 250mg Take 1 Univers am 250 mg 7-03 tablet by ity o f tablet 00:00: mouth 00 every Medical Saturday, Branch and Saturday in the evening. aspirin 81 2023-0 Yes [id number] 81mg Take 1 Univers mg chewable 7-03 tablet by ity of tablet 00:00: mouth in [place] 00 the Medical morning. Branch levETIRAcet 2022-0 Yes [id number] 250mg Take 1 Univers am 250 mg 7-03 tablet by ity o f tablet 00:00: mouth [place] 00 every Medical Saturday, Branch and Saturday in the evening. aspirin 81 2022-0 Yes [id number] 81mg Take 1 Univers mg chewable 7-03 tablet by ity of tablet 00:00: mouth in [place] 00 the Medical morning. Branch levETIRAcet 2022-0 Yes [id number] 250mg Take 1 Univers am 250 mg 7-03 tablet by ity o f tablet 00:00: mouth [place] 00 every Medical Saturday, Branch and Saturday in the evening. aspirin 81 2022-0 Yes [id number] 81mg Take 1 Univers mg chewable 7-03 tablet by ity of tablet 00:00: mouth in [place] 00 the Medical morning. Branch levETIRAcet 2022-0 Yes [id number] 250mg Take 1 Univers am 250 mg 7-03 tablet by ity o f tablet 00:00: mouth [place] 00 every Medical Saturday, Branch and Saturday in the evening. aspirin 81 2022-0 Yes [id number] 81mg Take 1 Univers mg chewable 7-03 tablet by ity of tablet 00:00: mouth in [place] 00 the Medical morning. Branch ferrous 3-0 Yes 325mg Take 325 Unive rs sulfate 325 7-02 mg by ity of mg (65 mg 16:19: mouth 2 [place] iron) 00 (two) Medical tablet times [place] daily. ferrous 2023-0 Yes 325mg Take 325 Unive rs sulfate 325 7-02 mg by ity of mg (65 mg 16:19: mouth 2 [place] iron) 00 (two) Medical tablet times [place] daily. ferrous 2023-0 Yes 325mg Take 325 Unive rs sulfate 325 7-02 mg by ity of mg (65 mg 16:19: mouth 2 [place] iron) 00 (two) Medical tablet times [place] daily. ferrous 2023-0 Yes 325mg Take 325 Unive rs sulfate 325 7-02 mg by ity of mg (65 mg 16:19: mouth 2 [place] iron) 00 (two) Medical tablet times [place] daily. ferrous 0 Yes 325mg Take 325 Unive rs sulfate 325 7-02 mg by ity of mg (65 mg 16:19: mouth 2 [place] iron) 00 (two) Medical tablet times Branch daily. carvediloL 2022- No 6.25mg Take 6.25 Univers 6.25 mg 7- 07-02 mg by ity of tablet 12:05: 00:00 mouth 2 [place] 23 :00 (two) Medical times Branch daily with meals. atorvastati 2022- No 20mg Take 20 mg Univers n 20 mg -01 01- by mouth ity of tablet 12:05: 00:00 at [place] 23 :00 bedtime. Medical Branch aspirin 81 2022- No 1{tbl} Take 1 Un samantha mg chewable 05-26 tablet by it y of tablet 12:05: 00:00 mouth in [place] 23 :00 the Medical morning. Branch olmesartan 2022- No 40mg Take 40 mg Univers 40 mg 05-26- by mouth. ity of tablet 12:05: 00:00 [place] 23 :00 Medical Branch carvediloL 0 Yes [id number] 25mg Take 1 Univers 25 mg 7-02 tablet by ity of tablet 00:00: mouth in [place] 00 the Medical morning Branch and 1 tablet in the evening. Take with meals. hydrALAZINE 2022-0 Yes [id number] 100mg Take 1 Univers 100 mg 7-02 tablet by ity of tablet 00:00: mouth [place] 00 every 8 Medical (eight) Branch hours. NIFEdipine 2022-0 Yes [id number] 90mg Take 1 Univers ER 90 mg 7-02 tablet by ity of tablet 00:00: mouth in [place] 00 the Medical morning. Branch cloNIDine 2022-0 Yes [id number] .2mg Take 1 U nivers 0.2 mg 7-02 tablet by ity of tablet 00:00: mouth in [place] 00 the Medical morning Branch and 1 tablet in the evening. levETIRAcet 2022-0 Yes [id number] 500mg Take 1 Univers am 500 mg 7-02 tablet by ity o f tablet 00:00: mouth [place] [address] every Medical evening. Branch atorvastati 2022-0 Yes [id number] 40mg Take 1 Univers n 40 mg 7-02 tablet by ity of tablet 00:00: mouth at [place] 00 bedtime. Medical Branch carvediloL 2022-0 Yes [id number] 25mg Take 1 Univers 25 mg 7-02 tablet by ity of tablet 00:00: mouth in [place] 00 the Medical morning Branch and 1 tablet in the evening. Take with meals. hydrALAZINE 2022-0 Yes [id number] 100mg Take 1 Univers 100 mg 7-02 tablet by ity of tablet 00:00: mouth [place] 00 every 8 Medical (eight) Branch hours. NIFEdipine 2022-0 Yes [id number] 90mg Take 1 Univers ER 90 mg 7-02 tablet by ity of tablet 00:00: mouth in [place] 00 the Medical morning. Branch cloNIDine 2022-0 Yes [id number] .2mg Take 1 U nivers 0.2 mg 7-02 tablet by ity of tablet 00:00: mouth in [place] 00 the Medical morning Branch and 1 tablet in the evening. levETIRAcet 2022-0 Yes [id number] 500mg Take 1 Univers am 500 mg 7-02 tablet by ity o f tablet 00:00: mouth [place] 00 every Medical evening. Branch atorvastati 2022-0 Yes [id number] 40mg Take 1 Univers n 40 mg 7-02 tablet by ity of tablet 00:00: mouth at [place] 00 bedtime. Medical Branch carvediloL 2022-0 Yes [id number] 25mg Take 1 Univers 25 mg 7-02 tablet by ity of tablet 00:00: mouth in [place] 00 the Medical morning Branch and 1 tablet in the evening. Take with meals. hydrALAZINE 2022-0 Yes [id number] 100mg Take 1 Univers 100 mg 7-02 tablet by ity of tablet 00:00: mouth [place] 00 every 8 Medical (eight) Branch hours. NIFEdipine 2022-0 Yes [id number] 90mg Take 1 Univers ER 90 mg 7-02 tablet by ity of tablet 00:00: mouth in [place] 00 the Medical morning. Branch cloNIDine 2022-0 Yes [id number] .2mg Take 1 U nivers 0.2 mg 7-02 tablet by ity of tablet 00:00: mouth in [place] 00 the Medical morning Branch and 1 tablet in the evening. levETIRAcet 2022-0 Yes [id number] 500mg Take 1 Univers am 500 mg 7-02 tablet by ity o f tablet 00:00: mouth [place] 00 every Medical evening. Branch atorvastati 2022-0 Yes [id number] 40mg Take 1 Univers n 40 mg 7-02 tablet by ity of tablet 00:00: mouth at [place] 00 bedtime. Medical Branch carvediloL 2022-0 Yes [id number] 25mg Take 1 Univers 25 mg 7-02 tablet by ity of tablet 00:00: mouth in [place] 00 the Medical morning Branch and 1 tablet in the evening. Take with meals. hydrALAZINE 2022-0 Yes [id number] 100mg Take 1 Univers 100 mg 7-02 tablet by ity of tablet 00:00: mouth [place] 00 every 8 Medical (eight) Branch hours. NIFEdipine 2022-0 Yes [id number] 90mg Take 1 Univers ER 90 mg 7-02 tablet by ity of tablet 00:00: mouth in [place] 00 the Medical morning. Branch cloNIDine 2022-0 Yes [id number] .2mg Take 1 U nivers 0.2 mg 7-02 tablet by ity of tablet 00:00: mouth in [place] 00 the Medical morning Branch and 1 tablet in the evening. levETIRAcet 2022-0 Yes [id number] 500mg Take 1 Univers am 500 mg 7-02 tablet by ity o f tablet 00:00: mouth [place] 00 every Medical evening. Branch atorvastati 2022-0 Yes [id number] 40mg Take 1 Univers n 40 mg 7-02 tablet by ity of tablet 00:00: mouth at [place] 00 bedtime. Medical Branch carvediloL 2022-0 Yes [id number] 25mg Take 1 Univers 25 mg 7-02 tablet by ity of tablet 00:00: mouth in [place] 00 the Medical morning Branch and 1 tablet in the evening. Take with meals. hydrALAZINE 2022-0 Yes [id number] 100mg Take 1 Univers 100 mg 7-02 tablet by ity of tablet 00:00: mouth [place] 00 every 8 Medical (eight) Branch hours. NIFEdipine 2022-0 Yes [id number] 90mg Take 1 Univers ER 90 mg 7-02 tablet by ity of tablet 00:00: mouth in [place] 00 the Medical morning. Branch cloNIDine 2023-0 Yes [id number] .2mg Take 1 U nivers 0.2 mg - tablet by ity of tablet 00:00: mouth in [place] 00 the Medical morning Branch and 1 tablet in the evening. levETIRAcet Yes [id number] 500mg Take 1 Univers am 500 mg - tablet by ity o f tablet 00:00: mouth [place] 00 every Medical evening. Branch atorvastati Yes [id number] 40mg Take 1 Univers n 40 mg 05-26 tablet by ity of tablet 00:00: mouth at [place] 00 bedtime. Medical Branch levETIRAcet Yes 500mg 500 mg, Un samantha am (KEPPRA) 05-25 Oral, ity of tablet 500 22:00: DAILY AT [place] mg 00 1700, Medical First dose Branch on 05/25/23 at [...] ity of ) tablet 12:00: ABX, First [place] 100 mg 00 dose Medical (after Branch last modificati on) on 05/25/23 at 0700, Until Discontinu ed, Routine levETIRAcet 0 Yes 250mg 250 mg, Un samantha am (KEPPRA) 05-24 Oral, ity of tablet 250 22:00: QMON/WEDS/ [place] mg 00 FRI AT Medical 1700, Branch First dose on Sat05/24/23 at 1700, Until Discontinu ed, Routine carvediloL Yes 25mg 25 mg, Unive rs (COREG) 05-24 Oral, BID ity of tablet 25 22:00: MEALS, [place] mg 00 First dose Medical (after Branch last modificati on) on Sat05/24/23 at 1700, Until Discontinu ed, MARIKA heparin Yes 2000U PRN - SEE Univ ers 1,000 05-24 INSTRUCTIO ity of unit/mL 12:17: NS, [place] [...] 47 :56 Q4HPRN, Medical Starting Branch on Sat05/23/23 at 1919, Until 05/25/23 at 0837, Routine, DBP=>100; SBP=>160 cloNIDine 2022-2022- No .1mg 0.1 mg, Univ ers (CATAPRES) 05-23 Oral, BID, it y of tablet 0.1 22:45: 13:37 First dose [place] mg 00 :56 on Michelle Medical 05/23/23 at Branch 1745, Until Discontinu ed, Routine gadobenate 2022- No [id number] .2mL/kg 13.2 mL Univers dimeglumine 05-23 (0.2 mL/kg i ty of (MULTIHANCE 21:30: 21:02 ?66 kg), [place] -15 mL) 00 :00 Intravenou Medica l injection s, ONCE, 1 Bran ch 13.2 mL dose, On [facility] 05/23/23 at 1630, Routine hydrALAZINE 2022- No 50mg 50 mg, Uni vers (APRESOLINE 05-23 Oral, ity of ) tablet 50 20:45: 20:04 ONCE, 1 [place] mg 00 :00 dose, On Medical [facility] 05/23/23 at 1545, Routine labetaloL 2022- No 10mg 10 mg, Unive rs (NORMODYNE) 05-23 Slow IV ity of injection 14:00: 13:12 Push, [place] 10 mg 00 :00 ONCE, 1 Medical dose, On Branch [facility] 05/23/23 at 0900, MARIKA carvediloL 2022- No 12.5mg 12.5 mg, Univers (COREG) 05-23 Oral, BID ity of tablet 12.5 13:30: 14:19 MEALS, [place] mg 00 :09 First dose Medical (after Branch last modificati on) on [facility] 05/23/23 at 0830, Until Discontinu ed, MARIKA hydralAZINE 2022- No 10mg 10 mg, Uni vers (APRESOLINE 05-23 Slow IV ity of ) injection 13:30: 12:45 Push, [place] 10 mg 00 :00 ONCE, 1 Medical dose, On Branch [facility] 05/23/23 at 0830, STAT hydralAZINE 2022-2022- No 10mg 10 mg, Uni vers (APRESOLINE 05-23 Slow IV ity of ) injection 13:00: 12:19 Push, [place] 10 mg 00 :00 ONCE, 1 Medical dose, On Branch [facility] 05/23/23 at 0800, STAT hydrALAZINE 0 2022- No 50mg 50 mg, Uni vers (APRESOLINE 05-23 Oral, ity of ) tablet 50 09:50: 19:57 Q8HPRN, [place] mg 56 :21 Starting Medical on Sat05/23/23 at 0450, Until Sat05/23/23 at 1457, Routine, SBP > 160, DBP > 100 atorvastati Yes 40mg 40 mg, Univ ers n (LIPITOR) 05-23 Enteral, ity of tablet 40 02:00: QHS, First [place] mg 00 dose Medical (after Branch last modificati on) on Sat05/22/23 at 2100, Until Discontinu ed, Routine sevelamer Yes 1.6g 1.6 g, Univer s carbonate 05-22 Oral, TID ity o f (RENVELA) 22:00: MEALS, [place] powder 00 First dose Medical packet 1.6 on Sat g 05/22/23 at 1700, Until Discontinu ed, Routine
manager membership approving Restricted medication : KIRK RODRIGUEZ JR NIFEdipine Yes 90mg 90 mg, Unive rs ER tablet 05-22 Oral, ity of 90 mg 14:00: DAILY, [place] 00 First dose Medical on Sat05/22/23 at 0900, Until Discontinu ed, Routine aspirin Yes 81mg 81 mg, Univers chewable 05-22 Enteral, ity of tablet 81 14:00: DAILY, [place] mg 00 First dose Medical (after Branch last modificati on) on Sat05/22/23 at 0900, Until Discontinu ed, Routine heparin Yes 5000U 5,000 Univers (porcine) 05-22 Units, ity of injection 13:00: Subcutaneo [place] 5,000 Units 00 us, Q12H, Med ical First dose Branch on Sat05/22/23 at 0800, Until Discontinu ed, Routine pantoprazol Yes 40mg 40 mg, Univ ers e 05-22 Slow IV ity of (PROTONIX) 05:00: Push, [place] injection 00 Q24H, Medical 40 mg First dose Branch on Sat05/22/23 at 0000, Until Discontinu ed carvediloL No 6.25mg 6.25 mg, Univers (COREG) 05-22 Oral, BID ity of tablet 6.25 03:30: 13:02 MEALS, [place] mg 00 :40 First dose Medical on Sat05/21/23 at 2230, Until Discontinu ed, Routine iopamidol 2022- No [id number] 100mL 100 mL, Univers (ISOVUE 05-22 Intravenou ity o f 370-500 mL) 03:00: 01:50 s, ONCE, 1 [place] injection 00 :00 dose, On Medica l 100 mL 05/21/23 at 2200, Routine trimethoben Yes 100mg 100 mg, Un samantha zamide 05-22 Intramuscu ity of (TIGAN) 02:55: lar, [place] injection 44 Q6HPRN, Medical 100 mg Starting Branch on Sat05/21/23 at 2155, Until Discontinu ed, Routine, Nausea and Vomiting (N/V) metoclopram No 5mg 5 mg, Slow Univers carmencita HCl 05-21 IV Push, ity of (REGLAN) 22:45: 00:32 ONCE, 1 [place] injection 5 00 :00 dose, On Medi denae mg Sat [place] 05/21/23 at 1745, Routine niCARdipine No 2.5mg/h 2.5-15 Univers (CARDENE 05-21 06-29 mg/hr ity of I.V.) 40 mg 22:33: [...] maximum allowed dose, contact prescriber .
clopidogreL No 300mg 300 mg, U nivers (PLAVIX) 05-21 Oral, ity of 300 mg 22:30: 22:05 ONCE, 1 [place] tablet 300 00 :00 dose, On Medic al mg Sat [place] 05/21/23 at 1730, Routine thiamine 2022- No 100mg IV Univers (VITAMIN 05-21 Piggyback, ity of B1) 100 mg 22:00: 13:59 DAILY, 5 [place] in NaCl 00 :00 doses, Medical 0.9% (NS) First dose Bran ch piggyback on Sat05/21/23 at 1700, Last dose on Sat05/25/23 at 0900, 50 mL Sliding 2022- No Subcutaneo Uni vers Scale 05-21 us, TID ity of Insulin - 22:00: 17:11 MEALS+HS, [place] Lispro 00 :50 First dose Medical (HumaLOG) on [place] 05/21/23 at 1700, Until Discontinu ed, Routine phenytoin 2022- No 100mg 100 mg, Uni vers (DILANTIN) 05-21 Intravenou it y of injection 22:00: 21:20 s, Q8H, [place] 100 mg 00 :52 First dose Medical on [facility] Branch 05/21/23 at 1700, Until Discontinu ed, Routine dextrose Yes 250mL 250 mL, IV Un samantha 10% (D10W) 05-21 Infusion, ity of bolus 21:44: PRN - SEE [place] infusion 29 INSTRUCTIO Medic al 250 mL [...]
glucagon Yes 1mg 1 mg, Univers (GLUCAGEN - Intramuscu ity of DIAGNOSTIC 21:44: lar, PRN, [place] KIT) 23 Starting Medical injection 1 on Sat Branch mg 05/21/23 at 1644, Until Discontinu ed, MARIKA, Blood Glucose < or = 70 mg/dL and patient is NPO, unable to swallow or has mental changes. sodium 2021-11 Yes [id number] Inject 100 Un smaantha thiosulfate 2-02 mL ity of 12.5 00:00: intravenou [place] gram/50 mL 00 sly every Medi denae (250 mg/mL) Saturday, Branc h solution Saturday and Saturday. sodium 2021-11 Yes [id number] Inject 100 Un samantha thiosulfate 2-02 mL ity of 12.5 00:00: intravenou [place] gram/50 mL 00 sly every Medi denae (250 mg/mL) Saturday, Branc h solution Saturday and Saturday. sodium 2021-11 Yes [id number] Inject 100 Un samantha thiosulfate 2-02 mL ity of 12.5 00:00: intravenou [place] gram/50 mL 00 sly every Medi denae (250 mg/mL) Saturday, Branc h solution Saturday and Saturday. sodium 2021-11 Yes [id number] Inject 100 Un samantha thiosulfate 2-02 mL ity of 12.5 00:00: intravenou [place] gram/50 mL 00 sly every Medi denae (250 mg/mL) Saturday, Branc h solution Saturday and Saturday. sodium 2021-11 Yes [id number] Inject 100 Un samantha thiosulfate 2-02 mL ity of 12.5 00:00: intravenou [place] gram/50 mL 00 sly every Medi denae (250 mg/mL) Saturday, Branc h solution Saturday and Saturday. sodium 2021-11 Yes [id number] Inject 100 Un samantha thiosulfate 2-02 mL ity of 12.5 00:00: intravenou [place] gram/50 mL 00 sly every Medi denae (250 mg/mL) Saturday, Branc h solution Saturday and Saturday. sodium 2021-11 Yes [id number] Inject 100 Un samantha thiosulfate 2-02 mL ity of 12.5 00:00: intravenou [place] gram/50 mL 00 sly every Medi denae (250 mg/mL) Saturday, Branc h solution Saturday and Saturday. sodium 2021-11 Yes [id number] Inject 100 Un samantha thiosulfate 2-02 mL ity of 12.5 00:00: intravenou [place] gram/50 mL 00 sly every Medi denae (250 mg/mL) Saturday, Branc h solution Saturday and Saturday. sodium 2021-11 Yes [id number] Inject 100 Un samantha thiosulfate 2-02 mL ity of 12.5 00:00: intravenou [place] gram/50 mL 00 sly every Medi denae (250 mg/mL) Saturday, Branc h solution Saturday. sodium 2021-11 Yes [id number] Inject 100 Un samantha thiosulfate 2-02 mL ity of 12.5 00:00: intravenou [place] gram/50 mL 00 sly every Medi denae (250 mg/mL) Saturday, Branc h solution Saturday and Saturday. sodium 2021-11 Yes [id number] Inject 100 Un samantha thiosulfate 2-02 mL ity of 12.5 00:00: intravenou [place] gram/50 mL 00 sly every Medi denae (250 mg/mL) Saturday, Branc h solution Saturday and Saturday. ferrous 2021-11 Yes 325mg Take 325 Unive rs sulfate 325 2-01 mg by ity of mg (65 mg 17:14: mouth 2 [place] iron) 18 (two) Medical tablet times Branch daily. carvediloL 2021-11 Yes 6.25mg Take 6.25 Univers 6.25 mg 2-01 mg by ity of tablet 17:14: mouth 2 [place] 18 (two) Medical times Branch daily with meals. atorvastati 2021-11 Yes 20mg Take 20 mg Univers n 20 mg 2-01 by mouth ity of tablet 17:14: at [place] [address] bedtime. Medical Branch aspirin 81 2021-11 Yes 1{tbl} Take 1 Uni vers mg chewable 2-01 tablet by ity of tablet 17:14: mouth in [place] 18 the Medical morning. Branch olmesartan 2021-11 Yes 40mg Take 40 mg U nivers 40 mg 2-01 by mouth. ity of tablet 17:14: 18 Medical Branch ferrous 2021-11 Yes 325mg Take 325 Unive rs sulfate 325 2-01 mg by ity of mg (65 mg 17:14: mouth 2 [place] iron) 18 (two) Medical tablet times Branch daily. carvediloL 2021-11 Yes 6.25mg Take 6.25 Univers 6.25 mg 2-01 mg by ity of tablet 17:14: mouth 2 [place] 18 (two) Medical times Branch daily with meals. atorvastati 2021-11 Yes 20mg Take 20 mg Univers n 20 mg 2-01 by mouth ity of tablet 17:14: at [place] 18 bedtime. Medical Branch aspirin 81 2021-11 Yes 1{tbl} Take 1 Uni vers mg chewable 2-01 tablet by ity of tablet 17:14: mouth in [place] 18 the Medical morning. Branch olmesartan 2021-11 Yes 40mg Take 40 mg U nivers 40 mg 2-01 by mouth. ity of tablet 17:14: Medical Branch ferrous 2021-11 Yes 325mg Take 325 Unive rs sulfate 325 2-01 mg by ity of mg (65 mg 17:14: mouth 2 [place] iron) 18 (two) Medical tablet times Branch daily. carvediloL 2021-11 Yes 6.25mg Take 6.25 Univers 6.25 mg 2-01 mg by ity of tablet 17:14: mouth 2 [place] 18 (two) Medical times Branch daily with meals. atorvastati 2021-11 Yes 20mg Take 20 mg Univers n 20 mg 2-01 by mouth ity of tablet 17:14: at [place] [address] bedtime. Medical Branch aspirin 81 2021-11 Yes 1{tbl} Take 1 Uni vers mg chewable 2-01 tablet by ity of tablet 17:14: mouth in [place] 18 the Medical morning. Branch olmesartan 2021-11 Yes 40mg Take 40 mg U nivers 40 mg 2-01 by mouth. ity of tablet 17:14: [place] 18 Medical Branch ferrous 2021-11 Yes 325mg Take 325 Unive rs sulfate 325 2-01 mg by ity of mg (65 mg 17:14: mouth 2 [place] iron) 18 (two) Medical tablet times Branch daily. carvediloL 2021-11 Yes 6.25mg Take 6.25 Univers 6.25 mg 2-01 mg by ity of tablet 17:14: mouth 2 [place] [address] (two) Medical times [place] daily with meals. atorvastati 2021-11 Yes 20mg Take 20 mg Univers n 20 mg 2-01 by mouth ity of tablet 17:14: at [place] [address] bedtime. Medical Branch aspirin 81 2021-11 Yes 1{tbl} Take 1 Uni vers mg chewable 2-01 tablet by ity of tablet 17:14: mouth in [place] [address] the Medical morning. Branch olmesartan 2021-11 Yes 40mg Take 40 mg U nivers 40 mg 2-01 by mouth. ity of tablet 17:14: [place] [address] Medical Branch ferrous 2021-11 Yes 325mg Take 325 Unive rs sulfate 325 2-01 mg by ity of mg (65 mg 17:14: mouth 2 [facility]) 18 (two) Medical tablet times Branch daily. carvediloL 2021-11 Yes 6.25mg Take 6.25 Univers 6.25 mg 2-01 mg by ity of tablet 17:14: mouth 2 [place] [address] (two) Medical times [place] daily with meals. atorvastati 2021-11 Yes 20mg Take 20 mg Univers n 20 mg 2-01 by mouth ity of tablet 17:14: at [place] [address] bedtime. Medical Branch aspirin 81 2021-11 Yes 1{tbl} Take 1 Uni vers mg chewable 2-01 tablet by ity of tablet 17:14: mouth in [place] [address] the Medical morning. Branch olmesartan 2021-11 Yes 40mg Take 40 mg U nivers 40 mg 2-01 by mouth. ity of tablet 17:14: [place] [address] Medical Branch sodium 2021-11 Yes [id number] 25g 25,000 mg U nivers thiosulfate 1-30 (25 g), ity o f solution 22:00: Intravenou [place] 25,000 mg 00 s, Medical QMON/WED/ Branch SAT, First dose (after last modificati on) on Sat10/24/22 at 1600, Until Discontinu ed, Routine epoetin 2021-11 No 4000U 4,000 Univers july-epbx 1-30 11-30 Units, ity of (RETACRIT) 19:45: 21:06 Slow IV [place] injection 00 :00 Push, Medical 4,000 Units DIALYSIS Bran ch ONCE - [facility], 1 dose, On Sat10/24/22 at 1345, Routine
Facult y member approving Restricted medication : CODY BHATIA lidocaine 2021-11- No .3mL 0.3 mL, Univ ers 1% (PF) 12-2430 Infiltrati ity o f (XYLOCAINE) 19:45: 21:02 on, ONCE, [place] injection 00 :00 1 dose, On Medi denae 0.3 mL Wed Branch 10/24/22 at 1345, Routine spironolact 2021-11- No 50mg Take 50 mg Univers one 50 mg 30 -30 by mouth 2 ity of tablet 13:31: 00:00 (two) [place] 56 :00 times Medical daily. Branch doxazosin 2 2021-11- No 2mg Take 2 mg Univers mg tablet 12-2430 by mouth ity o f 13:31: 00:00 daily. [place] 56 :00 Medical Branch sevelamer 2021-11- No 800mg Take 800 Un samantha 800 mg 1-30 11-30 mg by ity of tablet 13:31: 00:00 mouth. [place] 56 :00 Medical Branch phenytoin 2021-11- No 300mg Take 300 Un samantha ER 300 mg 1-30 11-30 mg by ity of ER capsule 13:31: 00:00 mouth. [place] :00 Medical [place] amLODIPine 2021-11- No 10mg Take 10 mg Univers 10 mg 1-30 11-30 by mouth ity of tablet 13:31: 00:00 in the [place] 56 :00 morning. Medical Branch lisinopriL 2021-11- No 10mg Take 10 mg Univers 10 mg 1-30 11-30 by mouth ity of tablet 13:31: 00:00 in the [place] 56 :00 morning. Medical Branch spironolact 2021-11- No 50mg Take 50 mg Univers one 50 mg -30 11-30 by mouth 2 ity of tablet 13:31: 00:00 (two) [place] 56 :00 times Medical daily. Branch doxazosin 2 2021-11 No 2mg Take 2 mg Univers mg tablet 12-24-30 by mouth ity o f 13:31: 00:00 daily. [place] 56 :00 Medical Branch sevelamer 2021-11 No 800mg Take 800 Un samantha 800 mg -30 11-30 mg by ity of tablet 13:31: 00:00 mouth. [place] 56 :00 Medical Branch phenytoin 2021-11- No 300mg Take 300 Un samantha ER 300 mg -30 11-30 mg by ity of ER capsule 13:31: 00:00 mouth. [place] :[place] Medical Branch amLODIPine 2021-11 No 10mg Take 10 mg Univers 10 mg -30 -30 by mouth ity of tablet 13:31: 00:00 in the [place] 56 :00 morning. Medical Branch lisinopriL 2021-11- No 10mg Take 10 mg Univers 10 mg 12-24 11-30 by mouth ity of tablet 13:31: 00:00 in the [place] 56 :00 morning. Medical Branch ferrous 2021-11 Yes 325mg Take 325 Unive rs sulfate 325 1-30 mg by ity of mg (65 mg 13:31: mouth 2 [place] [address] (two) Medical tablet times Branch daily. carvediloL 2021-11 Yes 6.25mg Take 6.25 Univers 6.25 mg 1-30 mg by ity of tablet 13:31: mouth 2 [place] 52 (two) Medical times Branch daily with meals. atorvastati 2021-11 Yes 20mg Take 20 mg Univers n 20 mg 1-30 by mouth ity of tablet 13:31: at [place] [address] bedtime. Medical Branch aspirin 81 2021-11 Yes 1{tbl} Take 1 Uni vers mg chewable 1-30 tablet by ity of tablet 13:31: mouth in [place] [address] the Medical morning. Branch olmesartan 2021-11 Yes 40mg Take 40 mg U nivers 40 mg 1-30 by mouth. ity of tablet 13:31: [place] [address] Medical Branch HYDROcodone 2021-11- No 1{tbl} 1 tablet, Univers -acetaminop -30 11-30 Oral, ity of hen (NORCO 02:00: 03:21 ONCE, 1 [place] 5) 5-325 mg 00 :00 dose, On Medi denae tablet 1 Tue Branch tablet 10/23/22 at 2000, Routine doxazosin 4 2021-11 Yes 4mg Take 1 Univ ers mg tablet 1-30 tablet by ity o f 00:00: mouth in [place] [address] the [facility] and 1 tablet in the evening. sevelamer 2021-11 Yes [id number] 1600mg Take 2 Univers 800 mg 1-30 tablets by ity of tablet 00:00: mouth in [place] [address] the [facility] and 2 tablets at noon and 2 tablets in the evening. Take with meals. doxazosin 4 2021-11 Yes 4mg Take 1 Univ ers mg tablet 1-30 tablet by ity o f 00:00: mouth in [place] [address] the [facility] and 1 tablet in the evening. sevelamer 2021-11 Yes [id number] 1600mg Take 2 Univers 800 mg 1-30 tablets by ity of tablet 00:00: mouth in [place] [address] the [facility] and 2 tablets at noon and 2 tablets in the evening. Take with meals. doxazosin 4 2021-11 Yes 4mg Take 1 Univ ers mg tablet 1-30 tablet by ity o f 00:00: mouth in [place] [address] the [facility] and 1 tablet in the evening. sevelamer 2021-11 Yes [id number] 1600mg Take 2 Univers 800 mg 1-30 tablets by ity of tablet 00:00: mouth in [place] [address] the [facility] and 2 tablets at noon and 2 tablets in the evening. Take with meals. doxazosin 4 2021-11 Yes 4mg Take 1 Univ ers mg tablet 1-30 tablet by ity o f 00:00: mouth in [place] [address] the [facility] and 1 tablet in the evening. sevelamer 2021-11 Yes [id number] 1600mg Take 2 Univers 800 mg 1-30 tablets by ity of tablet 00:00: mouth in [address] and 2 tablets at noon and 2 tablets in the evening. Take with meals. doxazosin 4 2021-11 Yes 4mg Take 1 Univ ers mg tablet 1-30 tablet by ity o f 00:00: mouth in [address] and 1 tablet in the evening. phenytoin 2021-11 Yes 300mg Take 1 Unive rs Extended 1-30 capsule by ity o f 300 mg [place] 00:00: [place] capsule 00 bedtime. [facility] 2021-11 Yes [id number] 1600mg Take 2 Univers 800 mg 1-30 tablets by ity of tablet 00:00: mouth in [place] 00 the Medical morning Branch and 2 tablets at noon and 2 tablets in the evening. Take with meals. doxazosin 4 2021-11 Yes 4mg Take 1 Univ ers mg tablet 1-30 tablet by ity o f 00:00: mouth in [place] 00 the Medical morning Branch and 1 tablet in the evening. phenytoin 2021-11 Yes 300mg Take 1 Unive rs Extended 1-30 capsule by ity o f 300 mg ER 00:00: mouth [place] capsule 00 bedtime. [facility] 2021-11 Yes [id number] 1600mg Take 2 Univers 800 mg 1-30 tablets by ity of tablet 00:00: mouth in [place] the Medical morning Branch and 2 tablets at noon and 2 tablets in the evening. Take with meals. doxazosin 4 2021-11 Yes 4mg Take 1 Univ ers mg tablet 1-30 tablet by ity o f 00:00: mouth in [place] the Medical morning Branch and 1 tablet in the evening. phenytoin 2021-11 Yes 300mg Take 1 Unive rs Extended 1-30 capsule by ity o f 300 mg ER 00:00: mouth [place] capsule 00 bedtime. [facility] 2021-11 Yes [id number] 1600mg Take 2 Univers 800 mg 1-30 tablets by ity of tablet 00:00: mouth in [place] the Medical morning Branch and 2 tablets at noon and 2 tablets in the evening. Take with meals. doxazosin 4 2021-11 Yes 4mg Take 1 Univ ers mg tablet 1-30 tablet by ity o f 00:00: mouth in [place] 00 the Medical morning Branch and 1 tablet in the evening. phenytoin 2021-11 Yes 300mg Take 1 Unive rs Extended 1-30 capsule by ity o f 300 mg ER 00:00: mouth [place] capsule 00 bedtime. [facility] 2021-11 Yes [id number] 1600mg Take 2 Univers 800 mg 1-30 tablets by ity of tablet 00:00: mouth in [place] 00 the Medical morning Branch and 2 tablets at noon and 2 tablets in the evening. Take with meals. doxazosin 4 2021-11 Yes 4mg Take 1 Univ ers mg tablet 1-30 tablet by ity o f 00:00: mouth in [place] 00 the Medical morning Branch and 1 tablet in the evening. phenytoin 2021-11 Yes 300mg Take 1 Unive rs Extended 1-30 capsule by ity o f 300 mg ER 00:00: mouth [place] capsule 00 bedtime. [facility] sevelamer 2021-11 Yes [id number] 1600mg Take 2 Univers 800 mg 1-30 tablets by ity of tablet 00:00: mouth in [place] 00 the Medical morning Branch and 2 tablets at noon and 2 tablets in the evening. Take with meals. doxazosin 4 2021-11 Yes 4mg Take 1 Univ ers mg tablet 1-30 tablet by ity o f 00:00: mouth in [place] 00 the Medical morning Branch and 1 tablet in the evening. phenytoin 2021-11 Yes 300mg Take 1 Unive rs Extended 1-30 capsule by ity o f 300 mg ER 00:00: mouth [place] capsule 00 [facility]. [facility] Yes [id number] 1600mg Take 2 Univers 800 mg 1-30 tablets by ity of tablet 00:00: mouth in [place] the Medical morning Branch and 2 tablets at noon and 2 tablets in the evening. Take with meals. doxazosin 4 2021-11 Yes 4mg Take 1 Univ ers mg tablet 1-30 tablet by ity o f 00:00: mouth in [place] the Medical morning Branch and 1 tablet in the evening. sevelamer 2021-11 Yes [id number] 1600mg Take 2 Univers 800 mg 1-30 tablets by ity of tablet 00:00: mouth in [place] 00 the Medical morning Branch and 2 tablets at noon and 2 tablets in the evening. Take with meals. phenytoin 2021-11- No 300mg Take 1 Univ ers Extended 1-30 07-02 capsule by ity of 300 mg ER 00:00: 00:00 mouth at [place] capsule 00 :00 bedtime. [facility] sevelamer 2021-11- No [id number] 1600mg Take 2 Univers 800 mg 1-30 11-30 tablets by ity of tablet 00:00: 00:00 mouth in [place] 00 :00 the Medical morning Branch and 2 tablets at noon and 2 tablets in the evening. Take with meals. sevelamer 2021-11- No [id number] 1600mg Take 2 Univers 800 mg 30 10-24 tablets by ity of tablet 00:00: 00:00 mouth in [place] 00 :00 the Medical morning Branch and 2 tablets at noon and 2 tablets in the evening. Take with meals. FENTanyl PF 2021-11 No Slow IV Un samantha (SUBLIMAZE 12-23 Push, PRN, it y of (PF)) 17:08: 17:24 Starting [place] injection 00 :45 on [facility] 10/23/22 Branch at 1108, Until 10/23/22 at 1124, Routine phenytoin 2021-11 No 605mg 605 mg, IV Univers (DILANTIN) 12-22 Piggyback, it y of 605 mg in 20:00: 23:27 ONCE, 1 [place] NaCl 0.9% 00 :00 dose, On Medica l (NS) (5 Sat Branch mg/mL) 10/22/22 piggyback at 1400, 121 [...] [place] mL 00 :00 dose, On Medical [facility] Branch 10/22/22 at 0800, Routine sodium 2021-11- No 25g 25,000 mg Unive rs thiosulfate 12-22 (25 g), ity of solution 14:00: 16:52 Intravenou [place] 25,000 mg 00 :00 s, ONCE, 1 Medi denae dose, On Branch Sat10/22/22 at 0800, Routine heparin 2021-11 Yes 2000U PRN - SEE Univ ers 1,000 12-22 INSTRUCTIO ity of unit/mL 13:57: NS, [place] injection 45 Starting Medica l 2,000 Units on [facility] Branch 10/22/22 at 0757, Until Discontinu ed, Routine
For Priming of Ports:&nbs p; &n bsp; After initial saline flush, prime each port with heparin according to the priming volume listed on each catheter port for catheter lock.
hydrALAZINE 2021-11 Yes 50mg 50 mg, Univ ers (APRESOLINE 12-21 Oral, QHS, it y of ) tablet 50 03:00: First dose [place] mg 00 on [facility] Medical 10/20/22 Branch at 2100, Until Discontinu ed, Routine cinacalcet 2021-11- No 30mg 30 mg, Univ ers (SENSIPAR) 12-20 Oral, ity of tablet 30 21:00: 17:46 DAILY, [place] mg 00 :52 First dose Medical on [facility] 10/20/22 at 1500, Until Discontinu ed, Routine hydrALAZINE 2021-11 Yes 50mg 50 mg, Univ ers (APRESOLINE 12-20 Oral, ity of ) tablet 50 18:00: Q24H, [place] mg 00 First dose Medical on [facility] Branch 10/20/22 at 1200, Until Discontinu ed, Routine insulin 2021-11- No 2U 2 Units, Unive rs lispro 12-20 Subcutaneo ity of (human) 18:00: 04:18 us, TID [place] (HumaLOG 00 :13 MEALS, Medical U-100) First dose Branch injection 2 on [facility] Units 10/20/22 at 1200, Until Discontinu ed, Routine sevelamer 2021-11 Yes 1600mg 1,600 mg, U nivers (RENVELA) 12-20 Oral, TID ity o f tablet 17:15: MEALS, [place] 1,600 mg 00 First dose Medic al (after Branch last modificati on) on [facility] 10/20/22 at 1115, Until Discontinu ed, Routine hydrALAZINE 2021-11 Yes 100mg 100 mg, Un samantha (APRESOLINE 12-20 Oral, QAM, it y of ) tablet 15:00: First dose [place] 100 mg 00 (after Medical last Branch modificati on) on [facility] 10/20/22 at 0900, Until Discontinu ed, Routine aspirin 2021-11 Yes 81mg 81 mg, Univers chewable 12-20 Oral, ity of tablet 81 15:00: DAILY, [place] mg 00 First dose Medical on [facility] Branch 10/20/22 at 0900, Until Discontinu ed, Routine polyethylen 2021-11- No 17g 17 g, Univ ers e glycol 12-20 Oral, ity of 3350 powder 15:00: 12:52 DAILY, [place] 17 g 00 :41 First dose Medical on [facility] 10/20/22 at 0900, Until Discontinu ed, Routine sennosides- 2021-11- No 1{tbl} 1 tablet, Univers docusate 12-20 Oral, ity of sodium 15:00: 12:52 DAILY, [place] (SENOKOT-S) 00 :41 First dose Me dical 8.6-50 mg on [facility] per tablet 10/20/22 1 tablet at 0900, Until Discontinu ed, Routine doxazosin 2021-11 Yes 4mg 4 mg, Univers (CARDURA) 12-20 Oral, BID, ity of tablet 4 mg 14:00: First dose [place] 00 on [facility] Medical 10/20/22 Branch at 0800, Until Discontinu ed, Routine NIFEdipine 2021-11 Yes 90mg 90 mg, Unive rs ER tablet 12-20 Oral, ity of 90 mg 12:33: QHSPRN, [place] 47 Starting Medical on [facility] 10/20/22 at 0633, Until Discontinu ed, Routine, [...] at 2100, Until Discontinu ed, Routine thiamine 2021-11 No 500mg 500 mg, Univ ers (VITAMIN 12-20 Intramuscu ity of B1) 02:30: 03:51 lar, ONCE, [place] injection 00 :00 1 dose, On Medi denae 500 mg Fri Branch 10/19/22 at 2030, Routine Sliding 2021-11 Yes Subcutaneo Univ ers Scale - us, Q4H, ity of Insulin - 02:00: First dose [place] Lispro 00 on Fri Medical (HumaLOG) + 10/19/22 Bran ch [facility] at 2000, Testing Until Discontinu ed, Routine heparin 2021-11 Yes 5000U 5,000 Univers (porcine) 12-20 Units, ity of injection 02:00: Subcutaneo [place] [...] or has mental status changes. NaCl 0.9% 2021-11- No 5mL 5 mL, Slow U nivers (NS) 12-19 IV Push, ity of injection 5 23:45: 01:01 ONCE, 1 [place] mL 00 :00 dose, On Medical Fri Branch 10/19/22 at 1745, Routine mupirocin 2021-11 Yes Nasal, Univer s (BACTROBAN 1-25 Q12H, For ity of NASAL OINT) 23:42: 5 days, [place] 2 % nasal 40 First dose Medi denae ointment conditiona Branc h l, Routine carvediloL 2021-11 Yes 6.25mg 6.25 mg, U nivers (COREG) 12-19 Oral, BID ity of tablet 6.25 23:00: MEALS, [place] mg 00 First dose Medical on Sat Branch 10/19/22 at 1700, Until Discontinu ed, Routine sevelamer 2021-11- No 800mg 800 mg, Uni vers (RENVELA) 12-19 Oral, TID ity of tablet 800 23:00: 17:07 MEALS, [place] mg 00 :33 First dose Medical on Sat Branch 10/19/22 at 1700, Until Discontinu ed, Routine dextrose 2021-11 Yes 250mL 250 mL, IV Un samantha 10% (D10W) 25 Infusion, ity of bolus 22:23: PRN - SEE [place] infusion 31 INSTRUCTIO Medic al 250 mL [...] Yes 650mg 650 mg, Un samantha en -25 Oral, ity of (TYLENOL) 22:22: Q6HPRN, [place] tablet 650 40 Starting Medic al mg on Fri Branch 10/19/22 at 1622, Until Discontinu ed, Routine, Pain (scale 1-3) ondansetron 2021-11 Yes 4mg 4 mg, Unive rs (ZOFRAN-ODT 12-19 Oral, ity of ) 22:12: Q8HPRN, [place] disintegrat 36 Starting Medi denae ing tablet on Fri Branch 4 mg 10/19/22 at 1612, Until Discontinu ed, Routine, Nausea and Vomiting (N/V) hydrALAZINE 2021-11 No 50mg 50 mg, Uni vers (APRESOLINE -10-20 Oral, ity of ) tablet 50 22:12: 12:43 Q8HPRN, [place] mg 01 :38 Starting Medical on Fri Branch 10/19/22 at 1612, Until 10/20/22 at 0643, Routine, Q8HPRN for SBP > 150 acetaminoph 2021-11 Yes 1{tbl} Take 1 Un samantha en-codeine 1-22 tablet by ity of 300-30 mg 00:00: mouth. [place] tablet [facility] acetaminoph 2021-11 Yes 1{tbl} Take 1 Un samantha en-codeine 1-22 tablet by ity of 300-30 mg 00:00: mouth. [place] tablet [facility] acetaminoph 2021-11 Yes 1{tbl} Take 1 Un samantha en-codeine 1-22 tablet by ity of 300-30 mg 00:00: mouth. [place] tablet [facility] acetaminoph 2021-11 Yes 1{tbl} Take 1 Un samantha en-codeine 1-22 tablet by ity of 300-30 mg 00:00: mouth. [place] tablet [facility] acetaminoph 2021-11 Yes 1{tbl} Take 1 Un samantha en-codeine 1-22 tablet by ity of 300-30 mg 00:00: mouth. [place] tablet [facility] acetaminoph 2021-11 Yes 1{tbl} Take 1 Un samantha en-codeine 1-22 tablet by ity of 300-30 mg 00:00: mouth. [place] tablet 00 Medical Branch acetaminoph 2021-11- No 1{tbl} Take 1 U nivers en-codeine 12-16 tablet by ity of 300-30 mg 00:00: [...] blood ity of 00:00: glucose 3 [place] times a Medical day Branch Alcohol 2021-11 Yes Use to Univers Swabs PadM 0-06 test blood ity of 00:00: glucose 3 [place] times a Medical day Branch Alcohol 2021-11 Yes Use to Univers Swabs PadM 0-06 test blood ity of 00:00: glucose 3 [place] 00 times a Medical day Branch Alcohol 2021-11 Yes Use to Univers Swabs PadM 0-06 test blood ity of 00:00: glucose 3 [place] 00 times a Medical day Branch Alcohol 2021-11- No Use to Univers Swabs PadM 0-06 07-02 test blood it y of 00:00: 00:00 glucose 3 [place] 00 :00 times a Medical day Branch hydrALAZINE Yes TAKE 1 Univ ers 50 mg 9-27 TABLET (50 ity of tablet 00:00: MG TOTAL) BY MOUTH Medical EVERY 8 Branch (EIGHT) HOURS IF NEEDED (FOR SBP GREATER THAN 150) hydrALAZINE Yes TAKE 1 Univ ers 50 mg 9-27 TABLET (50 ity of tablet 00:00: MG TOTAL) BY MOUTH Medical EVERY 8 Branch (EIGHT) HOURS IF NEEDED (FOR SBP GREATER THAN 150) hydrALAZINE Yes TAKE 1 Univ ers 50 mg 9-27 TABLET (50 ity of tablet 00:00: MG TOTAL) BY MOUTH Medical EVERY 8 Branch (EIGHT) HOURS IF NEEDED (FOR SBP GREATER THAN 150) hydrALAZINE Yes TAKE 1 Univ ers 50 mg 9-27 TABLET (50 ity of tablet 00:00: MG TOTAL) [place] 00 BY MOUTH Medical EVERY 8 Branch (EIGHT) HOURS IF NEEDED (FOR SBP GREATER THAN 150) hydrALAZINE Yes TAKE 1 Univ ers 50 mg 9-27 TABLET (50 ity of tablet 00:00: MG TOTAL) 00 BY MOUTH Medical EVERY 8 Branch (EIGHT) HOURS IF NEEDED (FOR SBP GREATER THAN 150) hydrALAZINE 0 Yes TAKE 1 Univ ers 50 mg 9-27 TABLET (50 ity of tablet 00:00: MG TOTAL) [place] 00 BY MOUTH Medical EVERY 8 Branch (EIGHT) HOURS IF NEEDED (FOR SBP GREATER THAN 150) hydrALAZINE 0 2022- No TAKE 1 Uni vers 50 mg 9-27 - TABLET (50 ity of tablet 00:00: 00:00 MG TOTAL) [place] 00 :00 BY MOUTH Medical EVERY 8 Branch (EIGHT) HOURS IF NEEDED (FOR SBP GREATER THAN 150) glimepiride Yes 4mg Take 4 mg U nivers 4 mg tablet 08-01 by mouth ity of 00:00: daily with breakfast. Medical Branch insulin Yes 150-200: 4 Univ ers aspart 9-07 units; ity of U-100 00:00: 201-250: 8 [place] (NOVOLOG 00 units: Medical FLEXPEN 251-300: Branch U-100 12 units. INSULIN) 301-400: 100 unit/mL 14: units: (3 mL) before injection meals glimepiride Yes 4mg Take 4 mg U nivers 4 mg tablet 08-01 by mouth ity of 00:00: daily with breakfast. Medical Branch insulin 0 Yes 150-200: 4 Univ ers aspart 9-07 units; ity of U-100 00:00: 201-250: 8 [place] (NOVOLOG 00 units: Medical FLEXPEN 251-300: Branch U-100 12 units. INSULIN) 301-400: 100 unit/mL 14: units: (3 mL) before injection meals glimepiride Yes 4mg Take 4 mg U nivers 4 mg tablet 08-01 by mouth ity of 00:00: daily with 00 breakfast. Medical Branch insulin Yes 150-200: 4 Univ ers aspart 9-07 units; ity of U-100 00:00: 201-250: 8 [place] (NOVOLOG 00 units: Medical FLEXPEN 251-300: Branch U-100 12 units. INSULIN) 301-400: 100 unit/mL 14: units: (3 mL) before injection meals glimepiride 2021-0 Yes 4mg Take 4 mg U nivers 4 mg tablet 08-01 by mouth ity of 00:00: daily with 00 breakfast. Medical Branch insulin 2021-0 Yes 150-200: 4 Univ ers aspart 9-07 units; ity of U-100 00:00: 201-250: 8 [place] (NOVOLOG 00 units: Medical FLEXPEN 251-300: Branch U-100 12 units. INSULIN) 301-400: 100 unit/mL 14: units: (3 mL) before injection meals glimepiride 2021-0 Yes 4mg Take 4 mg U nivers 4 mg tablet 08-01 by mouth ity of 00:00: daily with 00 breakfast. Medical Branch insulin 2021-0 Yes 150-200: 4 Univ ers aspart 9-07 units; ity of U-100 00:00: -250: 8 [place] (NOVOLOG 00 units: Medical FLEXPEN 251-300: Branch U-100 12 units. INSULIN) 301-400: 100 unit/mL 14: units: (3 mL) before injection meals glimepiride 2021-0 Yes 4mg Take 4 mg U nivers 4 mg tablet 08-01 by mouth ity of 00:00: daily with 00 breakfast. Medical Branch insulin 2-0 Yes 150-200: 4 Univ ers aspart 9-07 units; ity of U-100 00:00: 201-250: 8 [place] (NOVOLOG 00 units: Medical FLEXPEN 251-300: Branch U-100 12 units. INSULIN) 301-400: 100 unit/mL 14: units: (3 mL) before injection meals glimepiride 2021-0 Yes 4mg Take 4 mg U nivers 4 mg tablet 08-01 by mouth ity of 00:00: daily with 00 breakfast. Medical Branch insulin 2021-0 Yes 150-200: 4 Univ ers aspart 9-07 units; ity of U-100 00:00: 201-250: 8 [place] (NOVOLOG 00 units: Medical FLEXPEN 251-300: Branch U-100 12 units. INSULIN) 301-400: 100 unit/mL 14: units: (3 mL) before injection meals glimepiride 0 Yes 4mg Take 4 mg U nivers 4 mg tablet 08-01 by mouth ity of 00:00: daily with 00 breakfast. Medical Branch insulin 0 Yes 150-200: 4 Univ ers aspart 9-07 units; ity of U-100 00:00: 201-250: 8 [place] (NOVOLOG 00 units: Medical FLEXPEN 251-300: Branch U-100 12 units. INSULIN) 301-400: 100 unit/mL 14: units: (3 mL) before injection meals glimepiride Yes 4mg Take 4 mg U nivers 4 mg tablet 08-01 by mouth ity of 00:00: daily with breakfast. Medical Branch insulin Yes 150-200: 4 Univ ers aspart 9-07 units; ity of U-100 00:00: 201-250: 8 [place] (NOVOLOG 00 units: Medical FLEXPEN 251-300: Branch U-100 12 units. INSULIN) 301-400: 100 unit/mL 14: units: (3 mL) before injection meals glimepiride Yes 4mg Take 4 mg U nivers 4 mg tablet 08-01 by mouth ity of 00:00: daily with breakfast. Medical Branch insulin Yes 150-200: 4 Univ ers aspart 9-07 units; ity of U-100 00:00: 201-250: 8 [place] (NOVOLOG 00 units: Medical FLEXPEN 251-300: Branch U-100 12 units. INSULIN) 301-400: 100 unit/mL 14: units: (3 mL) before injection meals glimepiride 0 Yes 4mg Take 4 mg U nivers 4 mg tablet 08-01 by mouth ity of 00:00: daily with 00 breakfast. Medical Branch insulin 2021-0 Yes 150-200: 4 Univ ers aspart 9-07 units; ity of U-100 00:00: 201-250: 8 [place] (NOVOLOG 00 units: Medical FLEXPEN 251-300: Branch U-100 12 units. INSULIN) 301-400: 100 unit/mL 14: units: (3 mL) before injection meals NIFEdipine 0 Yes TAKE 1 Unive rs ER 90 mg 8-28 TABLET BY ity of tablet 00:00: MOUTH AT [place] [address] BEDTIME IF Medical SYSTOLIC Branch BLOOD PRESSURE IS GREATER THAN 140 NIFEdipine 2022-0 Yes TAKE 1 Unive rs ER 90 mg 8-28 TABLET BY ity of tablet 00:00: MOUTH AT [place] 00 BEDTIME IF Medical SYSTOLIC Branch BLOOD PRESSURE IS GREATER THAN 140 NIFEdipine 2022-0 Yes TAKE 1 Unive rs ER 90 mg 8-28 TABLET BY ity of tablet 00:00: MOUTH AT [place] 00 BEDTIME IF Medical SYSTOLIC Branch BLOOD PRESSURE IS GREATER THAN 140 NIFEdipine 2022-0 Yes TAKE 1 Unive rs ER 90 mg 8-28 TABLET BY ity of tablet 00:00: MOUTH AT [place] 00 BEDTIME IF Medical SYSTOLIC Branch BLOOD PRESSURE IS GREATER THAN 140 NIFEdipine 2022-0 Yes TAKE 1 Unive rs ER 90 mg 8-28 TABLET BY ity of tablet 00:00: MOUTH AT [place] BEDTIME IF Medical SYSTOLIC Branch BLOOD PRESSURE IS GREATER THAN 140 NIFEdipine 2022-0 Yes TAKE 1 Unive rs ER 90 mg 8-28 TABLET BY ity of tablet 00:00: MOUTH AT [place] BEDTIME IF Medical SYSTOLIC Branch BLOOD PRESSURE IS GREATER THAN 140 NIFEdipine 2022-0 2023- No TAKE 1 Univ ers ER 90 mg 8-28 - TABLET BY ity o f tablet 00:00: 00:00 MOUTH AT [place] 00 :00 BEDTIME IF Medical SYSTOLIC Branch BLOOD PRESSURE IS GREATER THAN 140 ondansetron 2022-0 Yes 4mg Take 4 mg U nivers 4 mg 8-08 by mouth. ity of disintegrat 00:00: [place] ing tablet 00 Medical Branch ondansetron 2022-0 Yes 4mg Take 4 mg U nivers 4 mg 8-08 by mouth. ity of disintegrat 00:00: [place] ing tablet 00 Medical Branch ondansetron 2022-0 Yes 4mg Take 4 mg U nivers 4 mg 8-08 by mouth. ity of disintegrat 00:00: [place] ing tablet 00 Medical Branch ondansetron 2022-0 Yes 4mg Take 4 mg U nivers 4 mg 8-08 by mouth. ity of disintegrat 00:00: [place] ing tablet 00 Medical Branch ondansetron 2022-0 Yes 4mg Take 4 mg U nivers 4 mg 8-08 by mouth. ity of disintegrat 00:00: [place] ing tablet 00 Medical Branch ondansetron 2022-0 Yes 4mg Take 4 mg U nivers 4 mg 08 by mouth. ity of disintegrat 00:00: [place] ing tablet 00 Medical Branch ondansetron 2021-0 3- No 4mg Take 4 mg Univers 4 mg 07-02- by mouth. ity of disintegrat 00:00: 00:00 [place] ing tablet 00 :00 Medical Branch lidocaine-p 2021-0 Yes Univer s rilocaine 5-20 ity of cream 00:00: [place] 00 Medical Branch lidocaine-p 202-0 Yes Univer s rilocaine 5-20 ity of cream 00:00: [place] 00 Medical Branch lidocaine-p 2-0 Yes Univer s rilocaine 5-20 ity of cream 00:00: [place] 00 Medical Branch lidocaine-p 202-0 Yes Univer s rilocaine 5-20 ity of cream 00:00: [place] 00 Medical Branch lidocaine-p 2021-0 Yes Univer s rilocaine 5-20 ity of cream 00:00: [place] 00 Medical Branch lidocaine-p 2022-0 Yes Univer s rilocaine 5-20 ity of cream 00:00: [place] 00 Medical Branch lidocaine-p 2-0 3- No Unive rs rilocaine 5-20 05-26 ity of cream 00:00: 00:00 [place] 00 :00 Medical Branch phenytoin 2021-0 Yes [...] 2 ity of tablet 20:18: (two) [place] 08 times Medical daily. Branch carvediloL 2021-0 Yes 6.25mg Take 6.25 Univers 6.25 mg 5-17 mg by ity of tablet 20:18: mouth 2 [place] 08 (two) Medical times Branch daily with meals. atorvastati 2022-0 Yes 20mg Take 20 mg Univers n 20 mg 5-17 by mouth ity of tablet 20:18: at [place] [address] bedtime. Medical Branch doxazosin 2 Yes 2mg Take 2 mg U nivers mg tablet 5-17 by mouth ity of 20:18: daily. Medical Branch ferrous 0 Yes 325mg Take 325 Unive rs sulfate 325 5-17 mg by ity of mg (65 mg 20:18: mouth 2 [place] iron) 08 (two) Medical tablet times Branch daily. spironolact 0 Yes 50mg Take 50 mg Univers one 50 mg 5-17 by mouth 2 ity of tablet 20:18: (two) times Medical daily. Branch carvediloL Yes 6.25mg Take 6.25 Univers 6.25 mg 5-17 mg by ity of tablet 20:18: mouth 2 (two) Medical times Branch daily with meals. atorvastati Yes 20mg Take 20 mg Univers n 20 mg 5-17 by mouth ity of tablet 20:18: at [place] [address] bedtime. Medical Branch doxazosin 2 Yes 2mg Take 2 mg U nivers mg tablet 5-17 by mouth ity of 20:18: daily. Medical Branch ferrous 0 Yes 325mg Take 325 Unive rs sulfate 325 5-17 mg by ity of mg (65 mg 20:18: mouth 2 [place] iron) 08 (two) Medical tablet times Branch daily. spironolact Yes 50mg Take 50 mg Univers one 50 mg 5-17 by mouth 2 ity of tablet 20:18: (two) times Medical daily. Branch carvediloL Yes 6.25mg Take 6.25 Univers 6.25 mg 5-17 mg by ity of tablet 20:18: mouth 2 [place] [address] (two) Medical times Branch daily with meals. atorvastati 0 Yes 20mg Take 20 mg Univers n 20 mg 5-17 by mouth ity of tablet 20:18: at [place] [address] bedtime. Medical Branch doxazosin 2 Yes 2mg Take 2 mg U nivers mg tablet 5-17 by mouth ity of 20:18: daily. Medical Branch fosphenytoi 2021- No 15mg{ph 930 mg PE Univers n (CEREBYX) 04-10-17 enytoin (15 mg it y of 930 [...] daily. [place] as hr tablet 33 :00 [facility] Branch NIFEdipine No 90mg Take 90 mg Univers ER 90 mg 04-10-17 by mouth ity of tablet 14:26: 00:00 daily. [place] 33 :00 [facility] atorvastati Yes 20mg 20 mg, Univ ers n (LIPITOR) 5-17 Oral, QHS, it y of tablet 20 02:00: First dose [place] mg 00 on Sat04/09/22 at Branch 2100, Until Discontinu ed, Routine sevelamer 2021- No [id number] 800mg Take 1 Univers 800 mg 5-17 08-16 tablet by ity of tablet 00:00: 04:59 mouth 3 [place] 00 :00 (three) Medical times [place] daily with meals for 90 days. phenytoin 2021- No [id number] 300mg Take 1 Univers Extended 5-17 08-16 capsule by ity of 300 mg ER 00:00: 04:59 mouth at [place] as capsule 00 :00 bedtime Medical for 90 Branch days. lisinopriL 2021- No [id number] 20mg Take 1 Univers 20 mg 5-17 08-16 tablet by ity of tablet 00:00: 04:59 mouth [place] 00 :00 daily for Medical 90 days. Branch amLODIPine 2021- No [id number] 10mg Take 1 Univers 10 mg 5-17 08-16 tablet by ity of tablet 00:00: 04:59 mouth [place] 00 :00 daily for Medical 90 days. Branch furosemide 2021- No [id number] 20mg Take 1 Univers 20 mg 5-17 08-16 tablet by ity of tablet 00:00: 04:59 mouth [place] 00 :00 daily for Medical 90 days. Branch glimepiride 2021- No [id number] 4mg Take 1 Univers 4 mg tablet 5-17 08-16 tablet by it y of 00:00: 04:59 mouth [place] 00 :00 daily with Medical breakfast Branch for 90 days. amiodarone 2021- No [id number] 100mg Take 1 Univers 100 mg 5-17 08-16 tablet by ity of tablet 00:00: 04:59 mouth [place] 00 :00 daily for Medical 90 days. Branch sevelamer 2021- No [id number] 800mg Take 1 Univers 800 mg 5-17 08-16 tablet by ity of tablet 00:00: 04:59 mouth 3 [place] 00 :00 (three) Medical times [place] daily with meals for 90 days. phenytoin 2021- No [id number] 300mg Take 1 Univers Extended 5-17 08-16 capsule by ity of 300 mg ER 00:00: 04:59 mouth at [place] capsule 00 :00 bedtime Medical for 90 Branch days. lisinopriL 2021- No [id number] 20mg Take 1 Univers 20 mg 5-17 08-16 tablet by ity of tablet 00:00: 04:59 mouth [place] 00 :00 daily for Medical 90 days. Branch amLODIPine 2021- No [id number] 10mg Take 1 Univers 10 mg 5-17 08-16 tablet by ity of tablet 00:00: 04:59 mouth [place] 00 :00 daily for Medical 90 days. Branch furosemide 2021- No [id number] 20mg Take 1 Univers 20 mg 5-17 08-16 tablet by ity of tablet 00:00: 04:59 mouth [place] 00 :00 daily for Medical 90 days. Branch glimepiride 2021- No [id number] 4mg Take 1 Univers 4 mg tablet 5-17 08-16 tablet by it y of 00:00: 04:59 mouth [place] 00 :00 daily with Medical breakfast Branch for 90 days. amiodarone 2021- No [id number] 100mg Take 1 Univers 100 mg 5-17 [...] First dose [place] mg 00 :12 on [facility] 04/09/22 at Branch 0900, Until Discontinu ed, Routine spironolact Yes 50mg 50 mg, Univ ers one 04-09 Oral, BID, ity of (ALDACTONE) 13:00: First dose [place] tablet 50 00 (after Medical mg last Branch reorder) on [facility] 04/09/22 at 0800, Until Discontinu ed, [...] Q12H, Med ical First dose Branch on [facility] 04/09/22 at 0800, Until Discontinu ed, Routine NaCl 0.9% 0 Yes 10mL 10 mL, Univer s (NS) -16 Slow IV ity of injection 05:18: Push, [...] First dose [place] Lispro 00 on [facility] Medical (HumaLOG) + 04/09/22 at Br anch Fsbg 0000, Testing Until Discontinu ed, Routine hydralAZINE 0 Yes 10mg 10 mg, Univ ers (APRESOLINE 16 Slow IV ity o f ) injection 04:46: Push, [place] 10 mg 34 Q4HPRN, Medical Starting Branch on [place] 04/08/22 at 2346, Until Discontinu ed, Routine, DBP=>10 0; SBP=>180 glucagon 2021-0 Yes 1mg 1 mg, Univers (GLUCAGEN 16 Intramuscu ity of DIAGNOSTIC 04:28: lar, PRN, [place] KIT) 00 Starting Medical injection 1 on [facility] mg 04/08/22 at 2328, Until Discontinu ed, MARIKA, Blood Glucose < or = 70 mg/dL and patient is unable to swallow or has mental changes. dextrose 50 2021-0 Yes 25mL 25 mL, Univ ers % in water 16 Slow IV ity of (D50W) 04:28: Push, PRN, [place] injection 00 Starting Medica l 25 mL on [place] Branch 04/08/22 at 2328, Until Discontinu ed, MARIKA, Blood Glucose < or = 70 mg/dL and patient is unable to swallow or has mental status changes. amLODIPine 2021- No 10mg Take 10 mg Univers 10 mg 04-09-16 by mouth ity of tablet 00:32: 00:00 daily. [place] 49 :00 Medical Branch lisinopriL 2021- No 20mg Take 20 mg Univers 20 mg 04-0916 by mouth ity of tablet 00:32: 00:00 daily. [place] 49 :00 Medical Branch amiodarone 2021- No Take by Uni vers 100 mg 04-09-16 mouth. ity of tablet 00:32: 00:00 [place] 49 :00 Medical Branch furosemide 2021- No Take by Uni vers (LASIX) 20 04-09- mouth. ity of mg tablet 00:32: 00:00 [place] 49 :00 Medical Branch glimepiride 2021- No 4mg Take 4 mg Univers 4 mg tablet 04-09 by mouth ity of 00:32: 00:00 daily with [place] 49 :00 breakfast. Medical Branch phenytoin 2021- No [id number] 100mg Take 1 Univers Extended 03-28 capsule by ity of 100 mg 00:00: 00:00 mouth [place] capsule 00 :00 every 8 Medical (eight) Branch hours. Glucose 2018-11 Yes 1 ea, Memoria Control 2-03 MISC, l Solution 04:25: Daily, # 1 Her aleman 00 ea, 0 Refill(s), [facility]: [id number] Diabetes 2019- Yes 1 ea, Memoria Self-Mangem 2-03 MISC, l ent 04:25: Daily, # 1 [place] 00 ea, 0 Refill(s), Pharmacy: [id number] Lancet 2019- Yes 1 box, Jose Device 2-03 MISC, l 04:25: Daily, # 1 [place] 00 ea, 0 Refill(s), Pharmacy: [id number] Lancets 2019- Yes 1 box, Memoria 2-03 MISC, l 04:25: TID-Before [place] 00 Meals, # 1 box, 3 Refill(s), Pharmacy: [facility] #[id number] Alcohol 2018-11 Yes 1 ea, TOP, Maxwell janell Pads/Swabs 2-03 TID-Before l Misc/Other 04:25: Meals, PRN [place] 00 As directed by physician, # 100 ea, 11 Refill(s), Pharmacy: [facility] #[id number] BD 1.4 qt 2018- Yes 1 ea, Memoria home sharps 2-03 MISC, l container 04:25: Q30D, Use Her aleman 00 for disposal of needles, # 1 ea, 11 Refill(s), Pharmacy: [facility] #[id number] Blood 2018-11 Yes 1 ea, Memoria Glucose 2-03 MISC, l Monitor 04:25: Daily, Use Herm trini 00 as directed., # 1 ea, 0 Refill(s), Pharmacy: [facility] #[id number] Blood 2018- Yes 1 box, Memoria Glucose 2-03 MISC, l Test Strips 04:25: TID-Before [place] 00 Meals, # 100 strip, 0 Refill(s), Pharmacy: [facility] #[id number] Glucose 2018-11 Yes 1 ea, Memoria Control 2-03 MISC, l Solution 04:25: Daily, # 1 Her aleman 00 ea, 0 Refill(s), Pharmacy: [id number] Glucose 2018- Yes 1 ea, Memoria Control 2-03 MISC, l Solution 04:25: Daily, # 1 Her aleman 00 ea, 0 Refill(s), Pharmacy: [id number] Diabetes 2019- Yes 1 ea, Memoria Self-Mangem 2-03 MISC, l ent 04:25: Daily, # 1 [place] 00 ea, 0 Refill(s), Pharmacy: [id number] Lancet 2019- Yes 1 box, Memoria Device 2-03 MISC, l 04:25: Daily, # 1 [place] 00 ea, 0 Refill(s), Pharmacy: [facility] #[id number] Lancets 2019- Yes 1 box, Memoria 2-03 MISC, l 04:25: TID-Before [place] 00 Meals, # 1 box, 3 Refill(s), Pharmacy: [id number] Alcohol 2018- Yes 1 ea, TOP, Maxwell janell Pads/Swabs 2-03 TID-Before l Misc/Other 04:25: Meals, PRN [place] 00 As directed by physician, # 100 ea, 11 Refill(s), Pharmacy: [facility] #[id number] BD 1.4 qt 2018-11 Yes 1 ea, Memoria home sharps 2-03 MISC, l container 04:25: Q30D, Use Her aleman 00 for disposal of needles, # 1 ea, 11 Refill(s), Pharmacy: [id number] Blood 2018- Yes 1 ea, Memoria Glucose 2-03 MISC, l Monitor 04:25: Daily, Use Herm trini 00 as directed., # 1 ea, 0 Refill(s), Pharmacy: [facility] #[id number] Blood 2018- Yes 1 box, Memoria Glucose 2-03 MISC, l Test Strips 04:25: TID-Before [place] 00 Meals, # 100 strip, 0 Refill(s), Pharmacy: [id number] Diabetes 2018- Yes 1 ea, Memoria Self-Mangem 2-03 MISC, l ent 04:25: Daily, # 1 [place] 00 ea, 0 Refill(s), Pharmacy: [id number] Lancet 2018- Yes 1 box, Memoria Device 2-03 MISC, l 04:25: Daily, # 1 [place] 00 ea, 0 Refill(s), Pharmacy: [id number] Glucose 2018- Yes 1 ea, Memoria Control 2-03 MISC, l Solution 04:25: Daily, # 1 Her aleman 00 ea, 0 Refill(s), Pharmacy: [id number] Diabetes 2018- Yes 1 ea, Memoria Self-Mangem 2-03 MISC, l ent 04:25: Daily, # 1 [place] 00 ea, 0 Refill(s), Pharmacy: [id number] Lancet 2019- Yes 1 box, Memoria Device 2-03 MISC, l 04:25: Daily, # 1 [place] 00 ea, 0 Refill(s), Pharmacy: [id number] Lancets 2019- Yes 1 box, Memoria 2-03 MISC, l 04:25: TID-Before [place] 00 Meals, # 1 box, 3 Refill(s), [facility]acy: [id number] Alcohol 2018-11 Yes 1 ea, TOP, Maxwell janell Pads/Swabs 2-03 TID-Before l Misc/Other 04:25: Meals, PRN [place] 00 As directed by physician, # 100 ea, 11 Refill(s), [facility]acy: [id number] BD 1.4 qt 2018- Yes 1 ea, Katerinaoria home sharps 2-03 MISC, l container 04:25: Q30D, Use Her aleman 00 for disposal of needles, # 1 ea, 11 Refill(s), Pharmacy: [id number] Blood 2018- Yes 1 ea, Memoria Glucose 2-03 MISC, l Monitor 04:25: Daily, Use Herm trini 00 as directed., # 1 ea, 0 Refill(s), Pharmacy: [id number] Blood 2018- Yes 1 box, Memoria Glucose 2-03 MISC, l Test Strips 04:25: TID-Before [place] 00 Meals, # 100 strip, 0 Refill(s), Pharmacy: [id number] Lancets 2018- Yes 1 box, Memoria 2-03 MISC, l 04:25: TID-Before [place] 00 Meals, # 1 box, 3 Refill(s), [facility]acy: [id number] Alcohol 2018- Yes 1 ea, TOP, Maxwell janell Pads/Swabs 2-03 TID-Before l Misc/Other 04:25: Meals, PRN [place] 00 As directed by physician, # 100 ea, 11 Refill(s), Pharmacy: [id number] Glucose 2018- Yes 1 ea, Memoria Control 2-03 MISC, l Solution 04:25: Daily, # 1 Her aleman 00 ea, 0 Refill(s), Pharmacy: [id number] Diabetes 2018- Yes 1 ea, Memoria Self-Mangem 2-03 MISC, l ent 04:25: Daily, # 1 [place] 00 ea, 0 Refill(s), Pharmacy: [id number] Lancet 2019- Yes 1 box, Memoria Device 2-03 MISC, l 04:25: Daily, # 1 [place] 00 ea, 0 Refill(s), Pharmacy: [id number] Lancets 2019- Yes 1 box, Memoria 2-03 MISC, l 04:25: TID-Before [place] 00 Meals, # 1 box, 3 Refill(s), Pharmacy: [id number] Alcohol 2019- Yes 1 ea, TOP, Maxwell janell Pads/Swabs 2-03 TID-Before l Misc/Other 04:25: Meals, PRN H [place] 00 As directed by physician, # 100 ea, 11 Refill(s), Pharmacy: [id number] BD 1.4 qt 2018- Yes 1 ea, Memoria home sharps 2-03 MISC, l container 04:25: Q30D, Use Her aleman 00 for disposal of needles, # 1 ea, 11 Refill(s), Pharmacy: [id number] Blood 2018- Yes 1 ea, Memoria Glucose 2-03 MISC, l Monitor 04:25: Daily, Use Herm trini 00 as directed., # 1 ea, 0 Refill(s), Pharmacy: [id number] Blood 2018- Yes 1 box, Memoria Glucose 2-03 MISC, l Test Strips 04:25: TID-Before [place] 00 Meals, # 100 strip, 0 Refill(s), Pharmacy: [id number] BD 1.4 qt 2018- Yes 1 ea, Memoria home sharps 2-03 MISC, l container 04:25: Q30D, Use Her aleman 00 for disposal of needles, # 1 ea, 11 Refill(s), [facility]: [id number] Blood 2019- Yes 1 ea, Memoria Glucose 2-03 MISC, l Monitor 04:25: Daily, Use Herm trini 00 as directed., # 1 ea, 0 Refill(s), [facility]acy: [id number] Glucose 2019- Yes 1 ea, Memoria Control 2-03 MISC, l Solution 04:25: Daily, # 1 Her aleman 00 ea, 0 Refill(s), Pharmacy: [id number] Diabetes 2019- Yes 1 ea, Memoria Self-Mangem 2-03 MISC, l ent 04:25: Daily, # 1 [place] 00 ea, 0 Refill(s), Pharmacy: [facility] #[id number] Lancet 2018-11 Yes 1 box, Memoria Device 2-03 MISC, l 04:25: Daily, # 1 [place] 00 ea, 0 Refill(s), Pharmacy: [facility] #[id number] Lancets 2018-11 Yes 1 box, Memoria 2-03 MISC, l 04:25: TID-Before [place] 00 Meals, # 1 box, 3 Refill(s), Pharmacy: [facility] #[id number] Alcohol 2018-11 Yes 1 ea, TOP, Maxwell janell Pads/Swabs 2-03 TID-Before l Misc/Other 04:25: Meals, PRN [place] 00 As directed by physician, # 100 ea, 11 Refill(s), Pharmacy: [facility] #[id number] BD 1.4 qt 2018-11 Yes 1 ea, Memoria home sharps 2-03 MISC, l container 04:25: Q30D, Use Her aleman 00 for disposal of needles, # 1 ea, 11 Refill(s), Pharmacy: [facility] #[id number] Blood 2018-11 Yes 1 ea, Memoria Glucose 2-03 MISC, l Monitor 04:25: Daily, Use Herm trini 00 as directed., # 1 ea, 0 Refill(s), Pharmacy: [facility] #[id number] Blood 2018- Yes 1 box, Memoria Glucose 2-03 MISC, l Test Strips 04:25: TID-Before [place] 00 Meals, # 100 strip, 0 Refill(s), Pharmacy: [facility] #[id number] Blood 2018- Yes 1 box, Memoria Glucose 2-03 MISC, l Test Strips 04:25: TID-Before [place] 00 Meals, # 100 strip, 0 Refill(s), Pharmacy: [id number] Glucose 2018- Yes 1 ea, Memoria Control 2-03 MISC, l Solution 04:25: Daily, # 1 Her aleman 00 ea, 0 Refill(s), Pharmacy: [facility] #[id number] Diabetes 2018- Yes 1 ea, Memoria Self-Mangem 2-03 MISC, l ent 04:25: Daily, # 1 [place] 00 ea, 0 Refill(s), Pharmacy: [id number] Lancet 2018- Yes 1 box, Memoria Device 2-03 MISC, l 04:25: Daily, # 1 [place] 00 ea, 0 Refill(s), Pharmacy: [id number] Lancets 2018-11 Yes 1 box, Memoria 2-03 MISC, l 04:25: TID-Before [place] 00 Meals, # 1 box, 3 Refill(s), Pharmacy: [id number] Alcohol 2018- Yes 1 ea, TOP, Maxwell janell Pads/Swabs 2-03 TID-Before l Misc/Other 04:25: Meals, PRN [place] 00 As directed by physician, # 100 ea, 11 Refill(s), Pharmacy: [facility] #[id number] BD 1.4 qt 2018-11 Yes 1 ea, Memoria home sharps 2-03 MISC, l container 04:25: Q30D, Use Her aleman 00 for disposal of needles, # 1 ea, 11 Refill(s), Pharmacy: [id number] Blood 2018- Yes 1 ea, Memoria Glucose 2-03 MISC, l Monitor 04:25: Daily, Use Herm trini 00 as directed., # 1 ea, 0 Refill(s), Pharmacy: [facility] #[id number] Blood 2018- Yes 1 box, Memoria Glucose 2-03 MISC, l Test Strips 04:25: TID-Before [place] 00 Meals, # 100 strip, 0 Refill(s), Pharmacy: [id number] Glucose 2018- Yes 1 ea, Memoria Control 2-03 MISC, l Solution 04:25: Daily, # 1 Her aleman 00 ea, 0 Refill(s), Pharmacy: [id number] Diabetes 2018- Yes 1 ea, Memoria Self-Mangem 2-03 MISC, l ent 04:25: Daily, # 1 [place] 00 ea, 0 Refill(s), Pharmacy: [id number] Lancet 2018- Yes 1 box, Memoria Device 2-03 MISC, l 04:25: Daily, # 1 [place] 00 ea, 0 Refill(s), Pharmacy: [id number] Lancets 2018-11 Yes 1 box, Memoria 2-03 MISC, l 04:25: TID-Before [place] 00 Meals, # 1 box, 3 Refill(s), Pharmacy: [id number] Alcohol 2018-11 Yes 1 ea, TOP, Maxwell janell Pads/Swabs 2-03 TID-Before l Misc/Other 04:25: Meals, PRN H [place] 00 As directed by physician, # 100 ea, 11 Refill(s), Pharmacy: [id number] BD 1.4 qt 2018- Yes 1 ea, Jose home sharps 2-03 MISC, l container 04:25: Q30D, Use Her aleman 00 for disposal of needles, # 1 ea, 11 Refill(s), Pharmacy: [id number] Blood 2018-11 Yes 1 ea, Jose Glucose 2-03 MISC, l Monitor 04:25: Daily, Use Herm trini 00 as directed., # 1 ea, 0 Refill(s), Pharmacy: [id number] Blood 2018- Yes 1 box, Katerinaoria Glucose 2-03 MISC, l Test Strips 04:25: TID-Before [place] 00 Meals, # 100 strip, 0 Refill(s), [facility]acy: [id number] Glucose 2018- Yes 1 ea, Jose Control 2-03 MISC, l Solution 04:25: Daily, # 1 Her aleman 00 ea, 0 Refill(s), Pharmacy: [id number] Diabetes 2018- Yes 1 ea, Katerinaoria Self-Mangem 2-03 MISC, l ent 04:25: Daily, # 1 [place] 00 ea, 0 Refill(s), Pharmacy: [id number] Lancet 2018- Yes 1 box, Memoria Device 2-03 MISC, l 04:25: Daily, # 1 [place] 00 ea, 0 Refill(s), Pharmacy: [id number] Lancets 2018- Yes 1 box, Memoria 2-03 MISC, l 04:25: TID-Before [place] 00 Meals, # 1 box, 3 Refill(s), Pharmacy: [id number] Alcohol 2018- Yes 1 ea, TOP, Maxwell janell Pads/Swabs 2-03 TID-Before l Misc/Other 04:25: Meals, PRN H [place] 00 As directed by physician, # 100 ea, 11 Refill(s), Pharmacy: [id number] BD 1.4 qt 2018-11 Yes 1 ea, Memoria home sharps 2-03 MISC, l container 04:25: Q30D, Use Her aleman 00 for disposal of needles, # 1 ea, 11 Refill(s), Pharmacy: [id number] Blood 2018- Yes 1 ea, Memoria Glucose 2-03 MISC, l Monitor 04:25: Daily, Use Herm trini 00 as directed., # 1 ea, 0 Refill(s), Pharmacy: [facility] #[id number] Blood 2018- Yes 1 box, [facility] Glucose 2-03 MISC, l Test Strips 04:25: TID-Before Hegins 00 Meals, # 100 strip, 0 Refill(s), Pharmacy: [facility] #[id number] Glucose 2018- Yes 1 ea, [facility] Control 2-03 MISC, l Solution 04:25: Daily, # 1 Her aleman 00 ea, 0 Refill(s), Pharmacy: [facility] #[id number] Diabetes 2018- Yes 1 ea, [facility] Self-Mangem 2-03 MISC, l ent 04:25: Daily, # 1 [employer] 00 ea, 0 Refill(s), Pharmacy: [facility] #[id number] Lancet 2019- Yes 1 box, [facility] Device 2-03 MISC, l 04:25: Daily, # 1 Hegins 00 ea, 0 Refill(s), Pharmacy: [facility] #[id number] Lancets 2019- Yes 1 box, Memoria 2-03 MISC, l 04:25: TID-Before González 00 Meals, # 1 box, 3 Refill(s), [id number] Alcohol 2019- Yes 1 ea, TOP, Maxwell janell Pads/Swabs 2-03 TID-Before l Misc/Other 04:25: Meals, PRN H ermann 00 As directed by physician, # 100 ea, 11 Refill(s), Pharmacy: [id number] BD 1.4 qt 2018- Yes 1 ea, Memoria home sharps 2-03 MISC, l container 04:25: Q30D, Use Her aleman 00 for disposal of needles, # 1 ea, 11 Refill(s), Pharmacy: [id number] Blood 2018-11 Yes 1 ea, Memoria Glucose 2-03 MISC, l Monitor 04:25: Daily, Use Herm trini 00 as directed., # 1 ea, 0 Refill(s), Pharmacy: [id number] Blood 2018-11 Yes 1 box, Memoria Glucose 2-03 MISC, l Test Strips 04:25: TID-Before González 00 Meals, # 100 strip, 0 Refill(s), Pharmacy: [id number] Glucose 2018-11 Yes 1 ea, Memoria Control 2-03 MISC, l Solution 04:25: Daily, # 1 Her aleman 00 ea, 0 Refill(s), Pharmacy: [id number] Diabetes 2018-11 Yes 1 ea, Memoria Self-Mangem 2-03 MISC, l ent 04:25: Daily, # 1 González Training 00 ea, 0 Refill(s), Pharmacy: [id number] Lancet 2018-11 Yes 1 box, Memoria Device 2-03 MISC, l 04:25: Daily, # 1 González 00 ea, 0 Refill(s), Pharmacy: [id number] Lancets 2018- Yes 1 box, Memoria 2-03 MISC, l 04:25: TID-Before Hegins 00 Meals, # 1 box, 3 Refill(s), Pharmacy: [id number] Alcohol 2018- Yes 1 ea, TOP, Maxwell janell Pads/Swabs 2-03 TID-Before l Misc/Other 04:25: Meals, PRN H ermann 00 As directed by physician, # 100 ea, 11 Refill(s), Pharmacy: [id number] BD 1.4 qt 2018-11 Yes 1 ea, Memoria home sharps 2-03 MISC, l container 04:25: Q30D, Use Her aleman 00 for disposal of needles, # 1 ea, 11 Refill(s), Pharmacy: [id number] Blood 2018- Yes 1 ea, Memoria Glucose 2-03 MISC, l Monitor 04:25: Daily, Use Herm trini 00 as directed., # 1 ea, 0 Refill(s), Pharmacy: [facility] #[id number] Blood 2018-11 Yes 1 box, Memoria Glucose 2-03 MISC, l Test Strips 04:25: TID-Before Hegins 00 Meals, # 100 strip, 0 Refill(s), Pharmacy: [id number] Glucose 2018-11 Yes 1 ea, Memoria Control 2-03 MISC, l Solution 04:25: Daily, # 1 Her aleman 00 ea, 0 Refill(s), Pharmacy: [id number] Diabetes 2018-11 Yes 1 ea, Memoria Self-Mangem 2-03 MISC, l ent 04:25: Daily, # 1 González Training 00 ea, 0 Refill(s), Pharmacy: [id number] Lancet 2018-11 Yes 1 box, Memoria Device 2-03 MISC, l 04:25: Daily, # 1 Hegins 00 ea, 0 Refill(s), Pharmacy: [id number] Lancets 2018-11 Yes 1 box, Memoria 2-03 MISC, l 04:25: TID-Before González 00 Meals, # 1 box, 3 Refill(s), Pharmacy: [id number] Alcohol 2018-11 Yes 1 ea, TOP, Maxwell janell Pads/Swabs 2-03 TID-Before l Misc/Other 04:25: Meals, PRN H ermann 00 As directed by physician, # 100 ea, 11 Refill(s), [facility]acy: [id number] BD 1.4 qt 2018-11 Yes 1 ea, Memoria home sharps 2-03 MISC, l container 04:25: Q30D, Use Her aleman 00 for disposal of needles, # 1 ea, 11 Refill(s), Pharmacy: [id number] Blood 2018-11 Yes 1 ea, Memoria Glucose 2-03 MISC, l Monitor 04:25: Daily, Use Herm trini 00 as directed., # 1 ea, 0 Refill(s), Pharmacy: [id number] Blood 2018-11 Yes 1 box, Memoria Glucose 2-03 MISC, l Test Strips 04:25: TID-Before Hegins 00 Meals, # 100 strip, 0 Refill(s), Pharmacy: [id number] Glucose 2018- Yes 1 ea, Memoria Control 2-03 MISC, l Solution 04:25: Daily, # 1 Her aleman 00 ea, 0 Refill(s), Pharmacy: [id number] Diabetes 2018-11 Yes 1 ea, Memoria Self-Mangem 2-03 MISC, l ent 04:25: Daily, # 1 González Training 00 ea, 0 Refill(s), [id number] Lancet 2019- Yes 1 box, Memoria Device 2-03 MISC, l 04:25: Daily, # 1 Hegins 00 ea, 0 Refill(s), Pharmacy: [id number] Lancets 2018- Yes 1 box, Memoria 2-03 MISC, l 04:25: TID-Before González 00 Meals, # 1 box, 3 Refill(s), Pharmacy: [facility] #[id number] Alcohol 2018- Yes 1 ea, TOP, Maxwell janell Pads/Swabs 2-03 TID-Before l Misc/Other 04:25: Meals, PRN H ermann 00 As directed by physician, # 100 ea, 11 Refill(s), Pharmacy: [id number] BD 1.4 qt 2018-11 Yes 1 ea, Memoria home sharps 2-03 MISC, l container 04:25: Q30D, Use Her aleman 00 for disposal of needles, # 1 ea, 11 Refill(s), Pharmacy: [id number] Blood 2018- Yes 1 ea, Memoria Glucose 2-03 MISC, l Monitor 04:25: Daily, Use Herm trini 00 as directed., # 1 ea, 0 Refill(s), Pharmacy: [id number] Blood 2018- Yes 1 box, Memoria Glucose 2-03 MISC, l Test Strips 04:25: TID-Before González 00 Meals, # 100 strip, 0 Refill(s), Pharmacy: [id number] Glucose 2018- Yes 1 ea, Memoria Control 2-03 MISC, l Solution 04:25: Daily, # 1 Her aleman 00 ea, 0 Refill(s), Pharmacy: [id number] Diabetes 2018- Yes 1 ea, Memoria Self-Mangem 2-03 MISC, l ent 04:25: Daily, # 1 González Training 00 ea, 0 Refill(s), Pharmacy: [id number] Lancet 2018- Yes 1 box, Memoria Device 2-03 MISC, l 04:25: Daily, # 1 Hegins 00 ea, 0 Refill(s), Pharmacy: [id number] Lancets 2018- Yes 1 box, Memoria 2-03 MISC, l 04:25: TID-Before Hegins 00 Meals, # 1 box, 3 Refill(s), Pharmacy: [facility] #[id number] Alcohol 2018- Yes 1 ea, TOP, Maxwell janell Pads/Swabs 2-03 TID-Before l Misc/Other 04:25: Meals, PRN H ermann 00 As directed by physician, # 100 ea, 11 Refill(s), Pharmacy: [id number] BD 1.4 qt 2018- Yes 1 ea, Memoria home sharps 2-03 MISC, l container 04:25: Q30D, Use Her aleman 00 for disposal of needles, # 1 ea, 11 Refill(s), Pharmacy: [id number] Blood 2018- Yes 1 ea, Memoria Glucose 2-03 MISC, l Monitor 04:25: Daily, Use Herm trini 00 as directed., # 1 ea, 0 Refill(s), Pharmacy: [id number] Blood 2018- Yes 1 box, Memoria Glucose 2-03 MISC, l Test Strips 04:25: TID-Before González 00 Meals, # 100 strip, 0 Refill(s), Pharmacy: [id number] Glucose 2018- Yes 1 ea, Memoria Control 2-03 MISC, l Solution 04:25: Daily, # 1 Her aleman 00 ea, 0 Refill(s), Pharmacy: [id number] Diabetes 2018- Yes 1 ea, Memoria Self-Mangem 2-03 MISC, l ent 04:25: Daily, # 1 Hegins Training 00 ea, 0 Refill(s), Pharmacy: [id number] Lancet 2018- Yes 1 box, Memoria Device 2-03 MISC, l 04:25: Daily, # 1 Hegins 00 ea, 0 Refill(s), Pharmacy: [id number] Lancets 2018-11 Yes 1 box, Memoria 2-03 MISC, l 04:25: TID-Before Hegins 00 Meals, # 1 box, 3 Refill(s), Pharmacy: [id number] Alcohol 2018-11 Yes 1 ea, TOP, Maxwell janell Pads/Swabs 2-03 TID-Before l Misc/Other 04:25: Meals, PRN H ermann 00 As directed by physician, # 100 ea, 11 Refill(s), Pharmacy: [id number] BD 1.4 qt 2018- Yes 1 ea, Memoria home sharps 2-03 MISC, l container 04:25: Q30D, Use Her aleman 00 for disposal of needles, # 1 ea, 11 Refill(s), Pharmacy: [id number] Blood 2018- Yes 1 ea, Memoria Glucose 2-03 MISC, l Monitor 04:25: Daily, Use Herm trini 00 as directed., # 1 ea, 0 Refill(s), Pharmacy: [facility] #[id number] Blood 2018- Yes 1 box, Memoria Glucose 2-03 MISC, l Test Strips 04:25: TID-Before González 00 Meals, # 100 strip, 0 Refill(s), Pharmacy: [id number] Glucose 2018- Yes 1 ea, Memoria Control 2-03 MISC, l Solution 04:25: Daily, # 1 Her aleman 00 ea, 0 Refill(s), Pharmacy: [id number] Diabetes 2019- Yes 1 ea, Memoria Self-Mangem 2-03 MISC, l ent 04:25: Daily, # 1 Hegins Training 00 ea, 0 Refill(s), Pharmacy: [id number] Lancet 2019- Yes 1 box, Memoria Device 2-03 MISC, l 04:25: Daily, # 1 González 00 ea, 0 Refill(s), Pharmacy: [facility] #[id number] Lancets 2018- Yes 1 box, Memoria 2-03 MISC, l 04:25: TID-Before González 00 Meals, # 1 box, 3 Refill(s), Pharmacy: [id number] Alcohol 2018-11 Yes 1 ea, TOP, Maxwell janell Pads/Swabs 2-03 TID-Before l Misc/Other 04:25: Meals, PRN H ermann 00 As directed by physician, # 100 ea, 11 Refill(s), Pharmacy: [id number] BD 1.4 qt 2018- Yes 1 ea, Jose home sharps 2-03 MISC, l container 04:25: Q30D, Use Her aleman 00 for disposal of needles, # 1 ea, 11 Refill(s), [facility]: [id number] Blood 2018- Yes 1 ea, Memoria Glucose 2-03 MISC, l Monitor 04:25: Daily, Use Herm trini 00 as directed., # 1 ea, 0 Refill(s), Pharmacy: [id number] Blood 2018- Yes 1 box, Memoria Glucose 2-03 MISC, l Test Strips 04:25: TID-Before González 00 Meals, # 100 strip, 0 Refill(s), [facility]: [id number] Glucose 2018- Yes 1 ea, Katerinaoria Control 2-03 MISC, l Solution 04:25: Daily, # 1 Her aleman 00 ea, 0 Refill(s), [facility]: [id number] Diabetes 2018- Yes 1 ea, Memoria Self-Mangem 2-03 MISC, l ent 04:25: Daily, # 1 Hegins Training 00 ea, 0 Refill(s), [facility]: [id number] Lancet 2019- Yes 1 box, Memoria Device 2-03 MISC, l 04:25: Daily, # 1 Hegins 00 ea, 0 Refill(s), [facility]: [id number] Lancets 2019- Yes 1 box, Memoria 2-03 MISC, l 04:25: TID-Before González 00 Meals, # 1 box, 3 Refill(s), Pharmacy: [id number] Alcohol 2018- Yes 1 ea, TOP, Maxwell janell Pads/Swabs 2-03 TID-Before l Misc/Other 04:25: Meals, PRN H ermann 00 As directed by physician, # 100 ea, 11 Refill(s), Pharmacy: [id number] BD 1.4 qt 2018- Yes 1 ea, Memoria home sharps 2-03 MISC, l container 04:25: Q30D, Use Her aleman 00 for disposal of needles, # 1 ea, 11 Refill(s), [facility]: [id number] Blood 2018- Yes 1 ea, Memoria Glucose 2-03 MISC, l Monitor 04:25: Daily, Use Herm trini 00 as directed., # 1 ea, 0 Refill(s), [facility]: [id number] Blood 2018-11 Yes 1 box, Memoria Glucose 2-03 MISC, l Test Strips 04:25: TID-Before Hegins 00 Meals, # 100 strip, 0 Refill(s), [facility]: [id number] Glucose 2018-11 Yes 1 ea, Memoria Control 2-03 MISC, l Solution 04:25: Daily, # 1 Her aleman 00 ea, 0 Refill(s), [facility]: [id number] Diabetes 2018- Yes 1 ea, Memoria Self-Mangem 2-03 MISC, l ent 04:25: Daily, # 1 González Training 00 ea, 0 Refill(s), [facility]: [id number] Lancet 2018- Yes 1 box, Memoria Device 2-03 MISC, l 04:25: Daily, # 1 González 00 ea, 0 Refill(s), [facility]: [id number] Lancets 2018- Yes 1 box, Memoria 2-03 MISC, l 04:25: TID-Before Hegins 00 Meals, # 1 box, 3 Refill(s), [facility]: [id number] Alcohol 2018- Yes 1 ea, TOP, Maxwell janell Pads/Swabs 2-03 TID-Before l Misc/Other 04:25: Meals, PRN H ermann 00 As directed by physician, # 100 ea, 11 Refill(s), [facility]: [id number] BD 1.4 qt 2018- Yes 1 ea, Memoria home sharps 2-03 MISC, l container 04:25: Q30D, Use Her aleman 00 for disposal of needles, # 1 ea, 11 Refill(s), [facility]: [id number] Blood 2018-1 Yes 1 ea, Memoria Glucose 2-03 MISC, l Monitor 04:25: Daily, Use Herm trini 00 as directed., # 1 ea, 0 Refill(s), Pharmacy: [id number] Blood 2018-11 Yes 1 box, Memoria Glucose 2-03 MISC, l Test Strips 04:25: TID-Before González 00 Meals, # 100 strip, 0 Refill(s), Pharmacy: [id number] Glucose 2018-11 Yes 1 ea, Memoria Control 2-03 MISC, l Solution 04:25: Daily, # 1 Her aleman 00 ea, 0 Refill(s), Pharmacy: [id number] Diabetes 2018-11 Yes 1 ea, Memoria Self-Mangem 2-03 MISC, l ent 04:25: Daily, # 1 González Training 00 ea, 0 Refill(s), Pharmacy: [id number] Lancet 2018-11 Yes 1 box, Memoria Device 2-03 MISC, l 04:25: Daily, # 1 González 00 ea, 0 Refill(s), Pharmacy: [id number] Lancets 2018-11 Yes 1 box, Memoria 2-03 MISC, l 04:25: TID-Before González 00 Meals, # 1 box, 3 Refill(s), Pharmacy: [facility] #[id number] Alcohol 2018-11 Yes 1 ea, TOP, Maxwell janell Pads/Swabs 2-03 TID-Before l Misc/Other 04:25: Meals, PRN H ermann 00 As directed by physician, # 100 ea, 11 Refill(s), Pharmacy: [id number] BD 1.4 qt 2018-11 Yes 1 ea, Memoria home sharps 2-03 MISC, l container 04:25: Q30D, Use Her aleman 00 for disposal of needles, # 1 ea, 11 Refill(s), Pharmacy: [id number] Blood 2018-11 Yes 1 ea, Memoria Glucose 2-03 MISC, l Monitor 04:25: Daily, Use Herm trini 00 as directed., # 1 ea, 0 Refill(s), Pharmacy: [id number] Blood 2018-11 Yes 1 box, Memoria Glucose 2-03 MISC, l Test Strips 04:25: TID-Before González 00 Meals, # 100 strip, 0 Refill(s), Pharmacy: [id number] Glucose 2018- Yes 1 ea, Memoria Control 2-03 MISC, l Solution 04:25: Daily, # 1 Her aleman 00 ea, 0 Refill(s), Pharmacy: [id number] Diabetes 2018- Yes 1 ea, Memoria Self-Mangem 2-03 MISC, l ent 04:25: Daily, # 1 González Training 00 ea, 0 Refill(s), [id number] Lancet 2018- Yes 1 box, Memoria Device 2-03 MISC, l 04:25: Daily, # 1 Hegins 00 ea, 0 Refill(s), Pharmacy: [id number] Lancets 2018- Yes 1 box, Memoria 2-03 MISC, l 04:25: TID-Before Hegins 00 Meals, # 1 box, 3 Refill(s), Pharmacy: [id number] Alcohol 2018- Yes 1 ea, TOP, Maxwell janell Pads/Swabs 2-03 TID-Before l Misc/Other 04:25: Meals, PRN H ermann 00 As directed by physician, # 100 ea, 11 Refill(s), Pharmacy: [id number] BD 1.4 qt 2018-11 Yes 1 ea, Memoria home sharps 2-03 MISC, l container 04:25: Q30D, Use Her aleman 00 for disposal of needles, # 1 ea, 11 Refill(s), Pharmacy: [id number] Blood 2018- Yes 1 ea, Memoria Glucose 2-03 MISC, l Monitor 04:25: Daily, Use Herm trini 00 as directed., # 1 ea, 0 Refill(s), Pharmacy: [id number] Blood 2018- Yes 1 box, Memoria Glucose 2-03 MISC, l Test Strips 04:25: TID-Before González 00 Meals, # 100 strip, 0 Refill(s), Pharmacy: [id number] Glucose 2018- Yes 1 ea, Memoria Control 2-03 MISC, l Solution 04:25: Daily, # 1 Her aleman 00 ea, 0 Refill(s), Pharmacy: [facility] #[id number] Diabetes 2018- Yes 1 ea, Jose Self-Mangem 2-03 MISC, l ent 04:25: Daily, # 1 Hegins Training 00 ea, 0 Refill(s), Pharmacy: [facility] #[id number] Lancet 2018-11 Yes 1 box, Katerinaoria Device 2-03 MISC, l 04:25: Daily, # 1 Hegins 00 ea, 0 Refill(s), Pharmacy: [facility] #[id number] Lancets 2018-11 Yes 1 box, Memoria 2-03 MISC, l 04:25: TID-Before González 00 Meals, # 1 box, 3 Refill(s), Pharmacy: [facility] #[id number] Alcohol 2018-11 Yes 1 ea, TOP, Maxwell janell Pads/Swabs 2-03 TID-Before l Misc/Other 04:25: Meals, PRN H ermann 00 As directed by physician, # 100 ea, 11 Refill(s), Pharmacy: [facility] #[id number] BD 1.4 qt 2018-11 Yes 1 ea, Jose home sharps 2-03 MISC, l container 04:25: Q30D, Use Her aleman 00 for disposal of needles, # 1 ea, 11 Refill(s), Pharmacy: [facility] #[id number] Blood 2018- Yes 1 ea, Jose Glucose 2-03 MISC, l Monitor 04:25: Daily, Use Herm trini 00 as directed., # 1 ea, 0 Refill(s), Pharmacy: [facility] #[id number] Blood 2018- Yes 1 box, Katerinaoria Glucose 2-03 MISC, l Test Strips 04:25: TID-Before González 00 Meals, # 100 strip, 0 Refill(s), Pharmacy: [facility] #[id number] Insulin 2018- Yes 10 unit, Memori a Glargine 2-03 SUB-Q, l 100 UNT/ML 04:24: Bedtime, # H ermann Injectable 00 15 mL, 3 Solution Refill(s), [Lantus] Pharmacy: [facility] #[id number] Insulin 2018- Yes 10 unit, Memori a Glargine 2-03 SUB-Q, l 100 UNT/ML 04:24: Bedtime, # H ermann Injectable 00 15 mL, 3 Solution Refill(s), [Lantus] [id number] Insulin 2019 Yes 10 unit, Memori a Glargine 2-03 SUB-Q, l 100 UNT/ML 04:24: Bedtime, # H ermann Injectable 00 15 mL, 3 Solution Refill(s), [L[facility]us] [id number] Insulin 2018-11 Yes 10 unit, Memori a Glargine 2-03 SUB-Q, l 100 UNT/ML 04:24: Bedtime, # H ermann Injectable 00 15 mL, 3 Solution Refill(s), [Lantus] [id number] Insulin 2018-11 Yes 10 unit, Memori a Glargine 2-03 SUB-Q, l 100 UNT/ML 04:24: Bedtime, # H ermann Injectable 00 15 mL, 3 Solution Refill(s), [Lantus] [id number] Insulin 2018-11 Yes 10 unit, Memori a Glargine 2-03 SUB-Q, l 100 UNT/ML 04:24: Bedtime, # H ermann Injectable 00 15 mL, 3 Solution Refill(s), [Lantus] [id number] Insulin 2018-11 Yes 10 unit, Memori a Glargine 2-03 SUB-Q, l 100 UNT/ML 04:24: Bedtime, # H ermann Injectable 00 15 mL, 3 Solution Refill(s), [Lantus] [id number] Insulin 2018-11 Yes 10 unit, Memori a Glargine 2-03 SUB-Q, l 100 UNT/ML 04:24: Bedtime, # H ermann Injectable 00 15 mL, 3 Solution Refill(s), [Lantus] [id number] Insulin 2018-11 Yes 10 unit, Memori a Glargine 2-03 SUB-Q, l 100 UNT/ML 04:24: Bedtime, # H ermann Injectable 00 15 mL, 3 Solution Refill(s), [Lantus] Pharmacy: [facility] #[id number] Insulin 2018-11 Yes 10 unit, Memori a Glargine 2-03 SUB-Q, l 100 UNT/ML 04:24: Bedtime, # H ermann Injectable 00 15 mL, 3 Solution Refill(s), [Lantus] [id number] Insulin 2019- Yes 10 unit, Memori a Glargine 2-03 SUB-Q, l 100 UNT/ML 04:24: Bedtime, # H ermann Injectable 00 15 mL, 3 Solution Refill(s), [Lantus] [facility] Insulin 2019 Yes 10 unit, Memori a Glargine 2-03 SUB-Q, l 100 UNT/ML 04:24: Bedtime, # H ermann Injectable 00 15 mL, 3 Solution Refill(s), [Lantus] [facility] Insulin 2018-11 Yes 10 unit, Memori a Glargine 2-03 SUB-Q, l 100 UNT/ML 04:24: Bedtime, # H ermann Injectable 00 15 mL, 3 Solution Refill(s), [Lantus] [facility] Insulin 2018- Yes 10 unit, Memori a Glargine 2-03 SUB-Q, l 100 UNT/ML 04:24: Bedtime, # H ermann Injectable 00 15 mL, 3 Solution Refill(s), [Lantus] [facility] Insulin 2018-11 Yes 10 unit, Memori a Glargine 2-03 SUB-Q, l 100 UNT/ML 04:24: Bedtime, # H ermann Injectable 00 15 mL, 3 Solution Refill(s), [Lantus] [facility] Insulin 2018-11 Yes 10 unit, Memori a Glargine 2-03 SUB-Q, l 100 UNT/ML 04:24: Bedtime, # H ermann Injectable 00 15 mL, 3 Solution Refill(s), [Lantus] [facility] Insulin 2018- Yes 10 unit, Memori a Glargine 2-03 SUB-Q, l 100 UNT/ML 04:24: Bedtime, # H ermann Injectable 00 15 mL, 3 Solution Refill(s), [Lantus] Pharmacy: [facility] Insulin 2018-11 Yes 10 unit, Memori a Glargine 2-03 SUB-Q, l 100 UNT/ML 04:24: Bedtime, # H ermann Injectable 00 15 mL, 3 Solution Refill(s), [Lantus] Pharmacy: [facility] #[id number] Insulin 2018-11 Yes 10 unit, Memori a Glargine 2-03 SUB-Q, l 100 UNT/ML 04:24: Bedtime, # H ermann Injectable 00 15 mL, 3 Solution Refill(s), [Lantus] Pharmacy: [facility] #[id number] Insulin 2018-11 Yes 10 unit, Memori a Glargine 2-03 SUB-Q, l 100 UNT/ML 04:24: Bedtime, # H ermann Injectable 00 15 mL, 3 Solution Refill(s), [Lantus] [id number] Insulin 2018-11 Yes 10 unit, Memori a Glargine 2-03 SUB-Q, l 100 UNT/ML 04:24: Bedtime, # H ermann Injectable 00 15 mL, 3 Solution Refill(s), [Lantus] [id number] ramipril 2018-11 Yes 10 mg = 1 M emoria mg oral 2-03 cap, PO, l capsule 04:19: Daily, # Matthew n 00 30 cap, 3 Refill(s), [id number] amLODIPine 2018-11 Yes 10 mg = 1 Me moria 10 mg oral 2-03 tab, PO, l tablet 04:19: Daily, # González 00 30 tab, 3 Refill(s), [id number] carvedilol 2018-11 Yes 6.25 mg = Me moria 6.25 mg 2-03 1 tab, PO, l oral tablet 04:19: Q12H, # 60 Hegins 00 tab, 3 Refill(s), [id number] spironolact 2018-11 Yes 25 mg = 1 M emoria one 25 mg 2-03 tab, PO, l oral tablet 04:19: BID, # 60 H ermann 00 tab, 3 Refill(s), [id number] ramipril 2018-11 Yes 10 mg = 1 M emoria mg oral 2-03 cap, PO, l capsule 04:19: Daily, # Matthew n 00 30 cap, 3 Refill(s), [id number] amLODIPine 2018-11 Yes 10 mg = 1 Me moria 10 mg oral 2-03 tab, PO, l tablet 04:19: Daily, # González 00 30 tab, 3 Refill(s), [id number] carvedilol 2018-11 Yes 6.25 mg = Me moria 6.25 mg 2-03 1 tab, PO, l oral tablet 04:19: Q12H, # 60 González 00 tab, 3 Refill(s), [id number] spironolact 2018-11 Yes 25 mg = 1 M emoria one 25 mg 2-03 tab, PO, l oral tablet 04:19: BID, # 60 H ermann 00 tab, 3 Refill(s), [id number] ramipril 2018-11 Yes 10 mg = 1 M emoria mg oral 2-03 cap, PO, l capsule 04:19: Daily, # Matthew n 00 30 cap, 3 Refill(s), [id number] amLODIPine 2018-11 Yes 10 mg = 1 Me moria 10 mg oral 2-03 tab, PO, l tablet 04:19: Daily, # González 00 30 tab, 3 Refill(s), [id number] carvedilol 2018-11 Yes 6.25 mg = Me moria 6.25 mg 2-03 1 tab, PO, l oral tablet 04:19: Q12H, # 60 Hegins 00 tab, 3 Refill(s), [id number] spironolact 2018-11 Yes 25 mg = 1 M emoria one 25 mg 2-03 tab, PO, l oral tablet 04:19: BID, # 60 H ermann 00 tab, 3 Refill(s), [id number] ramipril 2018-11 Yes 10 mg = 1 M emoria mg oral 2-03 cap, PO, l capsule 04:19: Daily, # Matthew n 00 30 cap, 3 Refill(s), Pharmacy: [facility] #[id number] amLODIPine 2018-11 Yes 10 mg = 1 Me moria 10 mg oral 2-03 tab, PO, l tablet 04:19: Daily, # Hegins 00 30 tab, 3 Refill(s), Pharmacy: [facility] #[id number] carvedilol 2018-11 Yes 6.25 mg = Me moria 6.25 mg 2-03 1 tab, PO, l oral tablet 04:19: Q12H, # 60 Hegins 00 tab, 3 Refill(s), Pharmacy: [facility] #[id number] spironolact 2018-11 Yes 25 mg = 1 M emoria one 25 mg 2-03 tab, PO, l oral tablet 04:19: BID, # 60 H ermann 00 tab, 3 Refill(s), Pharmacy: [facility] #[id number] ramipril 2018-11 Yes 10 mg = 1 M emoria mg oral 2-03 cap, PO, l capsule 04:19: Daily, # Matthew n 00 30 cap, 3 Refill(s), Pharmacy: [facility] #[id number] amLODIPine 2018-11 Yes 10 mg = 1 Me moria 10 mg oral 2-03 tab, PO, l tablet 04:19: Daily, # Hegins 00 30 tab, 3 Refill(s), Pharmacy: [facility] #[id number] carvedilol 2018-11 Yes 6.25 mg = Me moria 6.25 mg 2-03 1 tab, PO, l oral tablet 04:19: Q12H, # 60 González 00 tab, 3 Refill(s), Pharmacy: [facility] #[id number] spironolact 2018-11 Yes 25 mg = 1 M emoria one 25 mg 2-03 tab, PO, l oral tablet 04:19: BID, # 60 H ermann 00 tab, 3 Refill(s), Pharmacy: [facility] #[id number] ramipril 2018-11 Yes 10 mg = 1 M emoria mg oral 2-03 cap, PO, l capsule 04:19: Daily, # Matthew n 00 30 cap, 3 Refill(s), Pharmacy: [facility] #[id number] amLODIPine 2018-11 Yes 10 mg = 1 Me moria 10 mg oral 2-03 tab, PO, l tablet 04:19: Daily, # González 00 30 tab, 3 Refill(s), Pharmacy: [facility] #[id number] carvedilol 2018-11 Yes 6.25 mg = Me moria 6.25 mg 2-03 1 tab, PO, l oral tablet 04:19: Q12H, # 60 Hegins 00 tab, 3 Refill(s), [id number] spironolact 2018-11 Yes 25 mg = 1 M emoria one 25 mg 2-03 tab, PO, l oral tablet 04:19: BID, # 60 H ermann 00 tab, 3 Refill(s), Pharmacy: [facility] #[id number] ramipril 10 2018-11 Yes 10 mg = 1 M emoria mg oral 2-03 cap, PO, l capsule 04:19: Daily, # Matthew n 00 30 cap, 3 Refill(s), Pharmacy: [facility] #[id number] amLODIPine 2018-11 Yes 10 mg = 1 Me moria 10 mg oral 2-03 tab, PO, l tablet 04:19: Daily, # González 00 30 tab, 3 Refill(s), Pharmacy: [facility] #[id number] ramipril 2018-11 Yes 10 mg = 1 M emoria mg oral 2-03 cap, PO, l capsule 04:19: Daily, # Matthew n 00 30 cap, 3 Refill(s), Pharmacy: [facility] #[id number] amLODIPine 2018-11 Yes 10 mg = 1 Me moria 10 mg oral 2-03 tab, PO, l tablet 04:19: Daily, # González 00 30 tab, 3 Refill(s), Pharmacy: [facility] #[id number] carvedilol 2018-11 Yes 6.25 mg = Me moria 6.25 mg 2-03 1 tab, PO, l oral tablet 04:19: Q12H, # 60 Hegins 00 tab, 3 Refill(s), Pharmacy: [facility] #[id number] spironolact 2018-11 Yes 25 mg = 1 M emoria one 25 mg 2-03 tab, PO, l oral tablet 04:19: BID, # 60 H ermann 00 tab, 3 Refill(s), Pharmacy: [facility] #[id number] carvedilol 2018-11 Yes 6.25 mg = Me moria 6.25 mg 2-03 1 tab, PO, l oral tablet 04:19: Q12H, # 60 Hegins 00 tab, 3 Refill(s), [id number]ip[facility] 2018-11 Yes 10 mg = 1 M emoria mg oral 2-03 cap, PO, l capsule 04:19: Daily, # Matthew n 00 30 cap, 3 Refill(s), [id number] spironolact 2018-11 Yes 25 mg = 1 M emoria one 25 mg 2-03 tab, PO, l oral tablet 04:19: BID, # 60 H ermann 00 tab, 3 Refill(s), [id number] amLODIPine 2018-11 Yes 10 mg = 1 Me moria 10 mg oral 2-03 tab, PO, l tablet 04:19: Daily, # González 00 30 tab, 3 Refill(s), [id number] carvedilol 2018-11 Yes 6.25 mg = Me moria 6.25 mg 2-03 1 tab, PO, l oral tablet 04:19: Q12H, # 60 Hegins 00 tab, 3 Refill(s), [id number] spironolact 2018-11 Yes 25 mg = 1 M emoria one 25 mg 2-03 tab, PO, l oral tablet 04:19: BID, # 60 H ermann 00 tab, 3 Refill(s), [id number] ramipril 2018-11 Yes 10 mg = 1 M emoria mg oral 2-03 cap, PO, l capsule 04:19: Daily, # Matthew n 00 30 cap, 3 Refill(s), Pharmacy: [facility] #[id number] amLODIPine 2018-11 Yes 10 mg = 1 Me moria 10 mg oral 2-03 tab, PO, l tablet 04:19: Daily, # Hegins 00 30 tab, 3 Refill(s), [id number] carvedilol 2018-11 Yes 6.25 mg = Me moria 6.25 mg 2-03 1 tab, PO, l oral tablet 04:19: Q12H, # 60 González 00 tab, 3 Refill(s), [id number] spironolact 2018-11 Yes 25 mg = 1 M emoria one 25 mg 2-03 tab, PO, l oral tablet 04:19: BID, # 60 H ermann 00 tab, 3 Refill(s), Pharmacy: [facility] #[id number] ramipril 2018-11 Yes 10 mg = 1 M emoria mg oral 2-03 cap, PO, l capsule 04:19: Daily, # Matthew n 00 30 cap, 3 Refill(s), [id number] amLODIPine 2018-11 Yes 10 mg = 1 Me moria 10 mg oral 2-03 tab, PO, l tablet 04:19: Daily, # González 00 30 tab, 3 Refill(s), Pharmacy: [facility] #[id number] carvedilol 2018-11 Yes 6.25 mg = Me moria 6.25 mg 2-03 1 tab, PO, l oral tablet 04:19: Q12H, # 60 González 00 tab, 3 Refill(s), [id number] spironolact 2018-11 Yes 25 mg = 1 M emoria one 25 mg 2-03 tab, PO, l oral tablet 04:19: BID, # 60 H ermann 00 tab, 3 Refill(s), [id number] ramipril 2018-11 Yes 10 mg = 1 M emoria mg oral 2-03 cap, PO, l capsule 04:19: Daily, # Matthew n 00 30 cap, 3 Refill(s), [id number] amLODIPine 2018-11 Yes 10 mg = 1 Me moria 10 mg oral 2-03 tab, PO, l tablet 04:19: Daily, # Hegins 00 30 tab, 3 Refill(s), [id number] carvedilol 2018-11 Yes 6.25 mg = Me moria 6.25 mg 2-03 1 tab, PO, l oral tablet 04:19: Q12H, # 60 Hegins 00 tab, 3 Refill(s), [id number] spironolact 2018-11 Yes 25 mg = 1 M emoria one 25 mg 2-03 tab, PO, l oral tablet 04:19: BID, # 60 H ermann 00 tab, 3 Refill(s), [id number] ramipril 2018-11 Yes 10 mg = 1 M emoria mg oral 2-03 cap, PO, l capsule 04:19: Daily, # Matthew n 00 30 cap, 3 Refill(s), [id number] amLODIPine 2018-11 Yes 10 mg = 1 Me moria 10 mg oral 2-03 tab, PO, l tablet 04:19: Daily, # Hegins 00 30 tab, 3 Refill(s), [id number] carvedilol 2018-11 Yes 6.25 mg = Me moria 6.25 mg 2-03 1 tab, PO, l oral tablet 04:19: Q12H, # 60 Hegins 00 tab, 3 Refill(s), [id number] spironolact 2018-11 Yes 25 mg = 1 M emoria one 25 mg 2-03 tab, PO, l oral tablet 04:19: BID, # 60 H ermann 00 tab, 3 Refill(s), [id number] ramipril 2018-11 Yes 10 mg = 1 M emoria mg oral 2-03 cap, PO, l capsule 04:19: Daily, # Matthew n 00 30 cap, 3 Refill(s), [id number] amLODIPine 2018-11 Yes 10 mg = 1 Me moria 10 mg oral 2-03 tab, PO, l tablet 04:19: Daily, # Hegins 00 30 tab, 3 Refill(s), [id number] carvedilol 2018-11 Yes 6.25 mg = Me moria 6.25 mg 2-03 1 tab, PO, l oral tablet 04:19: Q12H, # 60 González 00 tab, 3 Refill(s), [id number] spironolact 2018-11 Yes 25 mg = 1 M emoria one 25 mg 2-03 tab, PO, l oral tablet 04:19: BID, # 60 H ermann 00 tab, 3 Refill(s), Pharmacy: [facility] #[id number] ramipril 10 2018-11 Yes 10 mg = 1 M emoria mg oral 2-03 cap, PO, l capsule 04:19: Daily, # Matthew n 00 30 cap, 3 Refill(s), [id number] amLODIPine 2018-11 Yes 10 mg = 1 Me moria 10 mg oral 2-03 tab, PO, l tablet 04:19: Daily, # González 00 30 tab, 3 Refill(s), Pharmacy: [facility] #[id number] carvedilol 2018-11 Yes 6.25 mg = Me moria 6.25 mg 2-03 1 tab, PO, l oral tablet 04:19: Q12H, # 60 Hegins 00 tab, 3 Refill(s), [id number] spironolact 2018-11 Yes 25 mg = 1 M emoria one 25 mg 2-03 tab, PO, l oral tablet 04:19: BID, # 60 H ermann 00 tab, 3 Refill(s), [id number] ramipril 2018-11 Yes 10 mg = 1 M emoria mg oral 2-03 cap, PO, l capsule 04:19: Daily, # Matthew n 00 30 cap, 3 Refill(s), [id number] amLODIPine 2018-11 Yes 10 mg = 1 Me moria 10 mg oral 2-03 tab, PO, l tablet 04:19: Daily, # Hegins 00 30 tab, 3 Refill(s), [id number] carvedilol 2018-11 Yes 6.25 mg = Me moria 6.25 mg 2-03 1 tab, PO, l oral tablet 04:19: Q12H, # 60 Hegins 00 tab, 3 Refill(s), [id number] spironolact 2018-11 Yes 25 mg = 1 M emoria one 25 mg 2-03 tab, PO, l oral tablet 04:19: BID, # 60 H ermann 00 tab, 3 Refill(s), [id number] ramipril 2018-11 Yes 10 mg = 1 M emoria mg oral 2-03 cap, PO, l capsule 04:19: Daily, # Matthew n 00 30 cap, 3 Refill(s), Pharmacy: [facility] #[id number] amLODIPine 2018-11 Yes 10 mg = 1 Me moria 10 mg oral 2-03 tab, PO, l tablet 04:19: Daily, # Hegins 00 30 tab, 3 Refill(s), [id number] carvedilol 2018-11 Yes 6.25 mg = Me moria 6.25 mg 2-03 1 tab, PO, l oral tablet 04:19: Q12H, # 60 Hegins 00 tab, 3 Refill(s), Pharmacy: [facility] #[id number] spironolact 2018-11 Yes 25 mg = 1 M emoria one 25 mg 2-03 tab, PO, l oral tablet 04:19: BID, # 60 H ermann 00 tab, 3 Refill(s), [id number] ramipril 10 2018-11 Yes 10 mg = 1 M emoria mg oral 2-03 cap, PO, l capsule 04:19: Daily, # Matthew n 00 30 cap, 3 Refill(s), [id number] amLODIPine 2018-11 Yes 10 mg = 1 Me moria 10 mg oral 2-03 tab, PO, l tablet 04:19: Daily, # González 00 30 tab, 3 Refill(s), [id number] carvedilol 2018-11 Yes 6.25 mg = Me moria 6.25 mg 2-03 1 tab, PO, l oral tablet 04:19: Q12H, # 60 Hegins 00 tab, 3 Refill(s), [id number] spironolact 2018-11 Yes 25 mg = 1 M emoria one 25 mg 2-03 tab, PO, l oral tablet 04:19: BID, # 60 H ermann 00 tab, 3 Refill(s), [id number] ramipril 10 2018-11 Yes 10 mg = 1 M emoria mg oral 2-03 cap, PO, l capsule 04:19: Daily, # Matthew n 00 30 cap, 3 Refill(s), [id number] amLODIPine 2018-11 Yes 10 mg = 1 Me moria 10 mg oral 2-03 tab, PO, l tablet 04:19: Daily, # Hegins 00 30 tab, 3 Refill(s), [id number] carvedilol 2018-11 Yes 6.25 mg = Me moria 6.25 mg 2-03 1 tab, PO, l oral tablet 04:19: Q12H, # 60 Hegins 00 tab, 3 Refill(s), [id number] spironolact 2018-11 Yes 25 mg = 1 M emoria one 25 mg 2-03 tab, PO, l oral tablet 04:19: BID, # 60 H ermann 00 tab, 3 Refill(s), [id number] ramipril 2018-11 Yes 10 mg = 1 M emoria mg oral 2-03 cap, PO, l capsule 04:19: Daily, # Matthew n 00 30 cap, 3 Refill(s), [id number] amLODIPine 2018-11 Yes 10 mg = 1 Me moria 10 mg oral 2-03 tab, PO, l tablet 04:19: Daily, # Hegins 00 30 tab, 3 Refill(s), Pharmacy: [facility] #[id number] carvedilol 2018-11 Yes 6.25 mg = Me moria 6.25 mg 2-03 1 tab, PO, l oral tablet 04:19: Q12H, # 60 González 00 tab, 3 Refill(s), [id number] spironolact 2018-11 Yes 25 mg = 1 M emoria one 25 mg 2-03 tab, PO, l oral tablet 04:19: BID, # 60 H ermann 00 tab, 3 Refill(s), Pharmacy: [facility] #[id number] ramipril 10 2018-11 Yes 10 mg = 1 M emoria mg oral 2-03 cap, PO, l capsule 04:19: Daily, # Matthew n 00 30 cap, 3 Refill(s), Pharmacy: [facility] #[id number] amLODIPine 2018-11 Yes 10 mg = 1 Me moria 10 mg oral 2-03 tab, PO, l tablet 04:19: Daily, # González 00 30 tab, 3 Refill(s), Pharmacy: [facility] #[id number] carvedilol 2019- Yes 6.25 mg = Me moria 6.25 mg 2-03 1 tab, PO, l oral tablet 04:19: Q12H, # 60 Hegins 00 tab, 3 Refill(s), Pharmacy: [facility] #[id number] spironolact 2018-11 Yes 25 mg = 1 M emoria one 25 mg 2-03 tab, PO, l oral tablet 04:19: BID, # 60 H ermann 00 tab, 3 Refill(s), Pharmacy: [facility] #[id number] Insulin 2018- No Notes: Memoria Lispro 2-03 (Same as: l 03:31: Humalog) González 00 Roll in palms of hands gently; Do not shake vigorously . WASTE: F/P - Black; E - Municipal Trash Bin Stable for 28 days at room temperatur e. Expires in days from ____Date Insulin 2019- No Notes: Memoria Lispro 2-03 (Same as: l 03:31: Humalog) Hegins 00 Roll in palms of hands gently; [...] Lispro 2-03 (Same as: l 03:31: Humalog) Hegins 00 Roll in palms of hands gently; Do not shake vigorously . WASTE: F/P - Black; E - Municipal Trash Bin Stable for 28 days at room temperatur e. Expires in days from ____Date Insulin 2019- No Notes: Memoria Lispro 2-03 (Same as: l 03:31: Humalog) Hegins 00 Roll in palms of hands gently; [...] Lispro 2-03 (Same as: l 03:31: Humalog) Hegins 00 Roll in palms of hands gently; Do not shake vigorously . WASTE: F/P - Black; E - Municipal Trash Bin Stable for 28 days at room temperatur e. Expires in days from ____Date Insulin 2019- No Notes: Memoria Lispro 2-03 (Same as: l 03:31: Humalog) Hegins 00 Roll in palms of hands gently; [...] Lispro 2-03 (Same as: l 03:31: Humalog) Hegins 00 Roll in palms of hands gently; Do not shake vigorously . WASTE: F/P - Black; E - Municipal Trash Bin Stable for 28 days at room temperatur e. Expires in days from ____Date Insulin 2019- No Notes: Memoria Lispro 2-03 (Same as: l 03:31: Humalog) Hegins 00 Roll in palms of hands gently; [...] Lispro 2-03 (Same as: l 03:31: Humalog) Hegins 00 Roll in palms of hands gently; Do not shake vigorously . WASTE: F/P - Black; E - Municipal Trash Bin Stable for 28 days at room temperatur e. Expires in days from ____Date Insulin 2019- No Notes: Memoria Lispro 2-03 (Same as: l 03:31: Humalog) Hegins 00 Roll in palms of hands gently; [...] Lispro 2-03 (Same as: l 03:31: Humalog) Hegins 00 Roll in palms of hands gently; [...] e. Expires in days from ____Date Insulin 2019-1 No Notes: Memoria Lispro 2-03 (Same as: l 03:31: Humalog) Hegins 00 Roll in palms of hands gently; Do not shake vigorously . WASTE: F/P - Black; E - Municipal Trash Bin Stable for 28 days at room temperatur e. Expires in days from ____Date sodium 2019-1 No 2,000 mL, Memori a chloride 2-03 Route: IV, l 0.9% 02:28: Drug form: González (Priming 00 INJ, PRN, and Dosing Maintenance Weight ) 64.7 kg, Start date: 10/26/19 20:28:00 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, Duration: 24 hr, Stop date: 10/27/19 20:27:00 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, For Use by Dialysis Nurse ONLY, PRN Dialysis, 0 sodium 2019- No 2,000 mL, Memori a chloride 2-03 Route: IV, l 0.9% 02:28: Drug form: González (Priming 00 INJ, PRN, and Dosing Maintenance Weight ) 64.7 kg, Start date: 10/26/19 20:28:00 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, Duration: 24 hr, Stop date: 10/27/19 20:27:00 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, For Use by Dialysis Nurse ONLY, PRN Dialysis, 0 sodium 2019- No 2,000 mL, Memori a chloride 2-03 Route: IV, l 0.9% 02:28: Drug form: Hegins (Priming 00 INJ, PRN, and Dosing Maintenance Weight ) 64.7 kg, Start date: 10/26/19 20:28:00 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, Duration: 24 hr, Stop date: 10/27/19 20:27:00 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, For Use by Dialysis Nurse ONLY, PRN Dialysis, 0 sodium 2019- No 2,000 mL, Memori a chloride 2-03 Route: IV, l 0.9% 02:28: Drug form: González (Priming 00 INJ, PRN, and Dosing Maintenance Weight ) 64.7 kg, Start date: 10/26/19 20:28:00 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, Duration: 24 hr, Stop date: 10/27/19 20:27:00 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, For Use by Dialysis Nurse ONLY, PRN Dialysis, 0 sodium 2019-1 No 2,000 mL, Memori a chloride 2-03 Route: IV, l 0.9% 02:28: Drug form: González (Priming 00 INJ, PRN, and Dosing Maintenance Weight ) 64.7 kg, Start date: 10/26/19 20:28:00 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, Duration: 24 hr, Stop date: 10/27/19 20:27:00 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, For Use by Dialysis Nurse ONLY, PRN Dialysis, 0 sodium 2019-1 No 2,000 mL, Memori a chloride 2-03 Route: IV, l 0.9% 02:28: Drug form: González (Priming 00 INJ, PRN, and Dosing Maintenance Weight ) 64.7 kg, Start date: 10/26/19 20:28:00 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, Duration: 24 hr, Stop date: 10/27/19 20:27:00 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, For Use by Dialysis Nurse ONLY, PRN Dialysis, 0 sodium 2019-1 No 2,000 mL, Memori a chloride 2-03 Route: IV, l 0.9% 02:28: Drug form: Hegins (Priming 00 INJ, PRN, and Dosing Maintenance Weight ) 64.7 kg, Start date: 10/26/19 20:28:00 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, Duration: 24 hr, Stop date: 10/27/19 20:27:00 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, For Use by Dialysis Nurse ONLY, PRN Dialysis, 0 sodium 2019-1 No 2,000 mL, Memori a chloride 2-03 Route: IV, l 0.9% 02:28: Drug form: González (Priming 00 INJ, PRN, and Dosing Maintenance Weight ) 64.7 kg, Start date: 10/26/19 20:28:00 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, Duration: 24 hr, Stop date: 10/27/19 20:27:00 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, For Use by Dialysis Nurse ONLY, PRN Dialysis, 0 sodium 2019-1 No 2,000 mL, Memori a chloride 2-03 Route: IV, l 0.9% 02:28: Drug form: González (Priming 00 INJ, PRN, and Dosing Maintenance Weight ) 64.7 kg, Start date: 10/26/19 20:28:00 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, Duration: 24 hr, Stop date: 10/27/19 20:27:00 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, For Use by Dialysis Nurse ONLY, PRN Dialysis, 0 sodium 2019-1 No 2,000 mL, Memori a chloride 2-03 Route: IV, l 0.9% 02:28: Drug form: González (Priming 00 INJ, PRN, and Dosing Maintenance Weight ) 64.7 kg, Start date: 10/26/19 20:28:00 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, Duration: 24 hr, Stop date: 10/27/19 20:27:00 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, For Use by Dialysis Nurse ONLY, PRN Dialysis, 0 sodium 2019-1 No 2,000 mL, Memori a chloride 2-03 Route: IV, l 0.9% 02:28: Drug form: Hegins (Priming 00 INJ, PRN, and Dosing Maintenance Weight ) 64.7 kg, Start date: 10/26/19 20:28:00 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, Duration: 24 hr, Stop date: 10/27/19 20:27:00 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, For Use by Dialysis Nurse ONLY, PRN Dialysis, 0 sodium 2019-1 No 2,000 mL, Memori a chloride 2-03 Route: IV, l 0.9% 02:28: Drug form: Hegins (Priming 00 INJ, PRN, and Dosing Maintenance Weight ) 64.7 kg, Start date: 10/26/19 20:28:00 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, Duration: 24 hr, Stop date: 10/27/19 20:27:00 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, For Use by Dialysis Nurse ONLY, PRN Dialysis, 0 sodium 2019-1 No 2,000 mL, Memori a chloride 2-03 Route: IV, l 0.9% 02:28: Drug form: González (Priming 00 INJ, PRN, and Dosing Maintenance Weight ) 64.7 kg, Start date: 10/26/19 20:28:00 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, Duration: 24 hr, Stop date: 10/27/19 20:27:00 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, For Use by Dialysis Nurse ONLY, PRN Dialysis, 0 sodium 2019-1 No 2,000 mL, Memori a chloride 2-03 Route: IV, l 0.9% 02:28: Drug form: Hegins (Priming 00 INJ, PRN, and Dosing Maintenance Weight ) 64.7 kg, Start date: 10/26/19 20:28:00 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, Duration: 24 hr, Stop date: 10/27/19 20:27:00 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, For Use by Dialysis Nurse ONLY, PRN Dialysis, 0 sodium 2019-1 No 2,000 mL, Memori a chloride 2-03 Route: IV, l 0.9% 02:28: Drug form: González (Priming 00 INJ, PRN, and Dosing Maintenance Weight ) 64.7 kg, Start date: 10/26/19 20:28:00 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, Duration: 24 hr, Stop date: 10/27/19 20:27:00 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, For Use by Dialysis Nurse ONLY, PRN Dialysis, 0 sodium 2019-1 No 2,000 mL, Memori a chloride 2-03 Route: IV, l 0.9% 02:28: Drug form: González (Priming 00 INJ, PRN, and Dosing Maintenance Weight ) 64.7 kg, Start date: 10/26/19 20:28:00 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, Duration: 24 hr, Stop date: 10/27/19 20:27:00 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, For Use by Dialysis Nurse ONLY, PRN Dialysis, 0 sodium 2019-1 No 2,000 mL, Memori a chloride 2-03 Route: IV, l 0.9% 02:28: Drug form: Hegins (Priming 00 INJ, PRN, and Dosing Maintenance Weight ) 64.7 kg, Start date: 10/26/19 20:28:00 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, Duration: 24 hr, Stop date: 10/27/19 20:27:00 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, For Use by Dialysis Nurse ONLY, PRN Dialysis, 0 sodium 2019-1 No 2,000 mL, Memori a chloride 2-03 Route: IV, l 0.9% 02:28: Drug form: González (Priming 00 INJ, PRN, and Dosing Maintenance Weight ) 64.7 kg, Start date: 10/26/19 20:28:00 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, Duration: 24 hr, Stop date: 10/27/19 20:27:00 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, For Use by Dialysis Nurse ONLY, PRN Dialysis, 0 sodium 2019-1 No 2,000 mL, Memori a chloride 2-03 Route: IV, l 0.9% 02:28: Drug form: González (Priming 00 INJ, PRN, and Dosing Maintenance Weight ) 64.7 kg, Start date: 10/26/19 20:28:00 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, Duration: 24 hr, Stop date: 10/27/19 20:27:00 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, For Use by Dialysis Nurse ONLY, PRN Dialysis, 0 sodium 2018-11 No 2,000 mL, Memori a chloride 2-03 Route: IV, l 0.9% 02:28: Drug form: González (Priming 00 INJ, PRN, and Dosing Maintenance Weight ) 64.7 kg, Start date: 10/26/19 20:28:00 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, Duration: 24 hr, Stop date: 10/27/19 20:27:00 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, For Use by Dialysis Nurse ONLY, PRN Dialysis, 0 sodium 2018-11 No 2,000 mL, Memori a chloride 2-03 Route: IV, l 0.9% 02:28: Drug form: González (Priming 00 INJ, PRN, and Dosing Maintenance Weight ) 64.7 kg, Start date: 10/26/19 20:28:00 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, Duration: 24 hr, Stop date: 10/27/19 20:27:00 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, For Use by Dialysis Nurse ONLY, PRN [...] Memoria 2- (Same as: l 17:00: Versed) Gonzálze 00 MEDICATION WASTE Product Size: 2 mg [...] Memoria 2-02 (Same as: l 17:00: Versed) Hegins 00 MEDICATION WASTE Product Size: 2 mg Product Wasted: ___ mg Versed 2018-11 No Notes: Memoria 2-02 (Same as: l 17:00: Versed) González 00 [...] Memoria 2- (Same as: l 16:55: Sublimaze) Hegins 00 Preservati ve free. Benzocaine 2018-11 No Notes: Memor ia 140 MG/ML / 2- (Same As: l butamben 20 16:55: Cetacaine) Hegins MG/ML / 00 Cetacaine Tetracaine (benzocain 20 MG/ML e-tetracai Mucous ne-butambe Membrane n 14-2-2%) Topical Solution [Cetacaine] Fentanyl 2018-11 No Notes: Memoria 2- (Same as: l 16:55: Sublimaze) Hegins 00 Preservati ve free. Benzocaine 2018-11 No Notes: Memor ia 140 MG/ML / 2-02 (Same As: l butamben 20 16:55: Cetacaine) González MG/ML / 00 Cetacaine Tetracaine (benzocain 20 MG/ML e-tetracai Mucous ne-butambe Membrane n 14-2-2%) Topical Solution [Cetacaine] Fentanyl 2018-11 No Notes: Memoria 2-02 (Same as: l 16:55: Sublimaze) Hegins 00 Preservati ve free. Benzocaine 2018-11 No [...] Memoria 2-02 (Same as: l 16:55: Sublimaze) Hegins 00 Preservati ve free. Benzocaine 2018-11 No [...] (Same As: l butamben 20 16:55: Cetacaine) Hegins MG/ML / 00 Cetacaine Tetracaine (benzocain 20 MG/ML e-tetracai Mucous ne-butambe Membrane n 14-2-2%) Topical Solution [Cetacaine] Fentanyl 2018-11 No Notes: Memoria 2-02 (Same as: l 16:55: Sublimaze) González 00 Preservati ve free. Benzocaine 2018-11 No Notes: Memor ia 140 MG/ML / 2-02 (Same As: l butamben 20 16:55: Cetacaine) Hegins MG/ML / 00 Cetacaine Tetracaine (benzocain 20 MG/ML e-tetracai Mucous ne-butambe Membrane n 14-2-2%) Topical Solution [Cetacaine] Fentanyl 2018-11 No Notes: Memoria 2-02 (Same as: l 16:55: Sublimaze) González 00 Preservati ve free. Fentanyl 2018-11 No Notes: Memoria 2-02 (Same as: l 16:55: Sublimaze) Hegins 00 Preservati ve free. Benzocaine 2018-11 No Notes: Memor ia 140 MG/ML / 2-02 (Same As: l butamben 20 16:55: Cetacaine) Hegins MG/ML / 00 Cetacaine Tetracaine (benzocain 20 MG/ML e-tetracai Mucous ne-butambe Membrane n 14-2-2%) Topical Solution [Cetacaine] Benzocaine 2018-11 No Notes: Memor ia 140 [...] (Same As: l [place] 20 16:55: Cetacaine) Hegins MG/ML / 00 Cetacaine Tetracaine (benzocain 20 MG/ML e-tetracai Mucous ne-butambe Membrane n 14-2-2%) Topical Solution [Cetacaine] Fentanyl 2018-11 No Notes: Memoria 2-02 (Same as: l 16:55: Sublimaze) Hegins 00 Preservati ve free. Benzocaine 2018-11 No Notes: Memor ia 140 MG/ML / 2-02 (Same As: l [place] 20 16:55: Cetacaine) Hegins MG/ML / 00 Cetacaine Tetracaine (benzocain 20 MG/ML e-tetracai Mucous ne-butambe Membrane n 14-2-2%) Topical Solution [Cetacaine] Fentanyl 2018-11 No Notes: Memoria 2-02 (Same as: l 16:55: Sublimaze) Hegins 00 Preservati ve free. Benzocaine 2018-11 No Notes: Memor ia 140 MG/ML / 2-02 (Same As: l [place] 20 16:55: Cetacaine) Hegins MG/ML / 00 Cetacaine Tetracaine (benzocain 20 MG/ML e-tetracai Mucous ne-butambe Membrane n 14-2-2%) Topical Solution [Cetacaine] Fentanyl 2018-11 No Notes: Memoria 2-02 (Same as: l 16:55: Sublimaze) Hegins 00 Preservati ve free. Benzocaine 2018-11 No Notes: Memor ia 140 MG/ML / 2-02 (Same As: l [place] 20 16:55: Cetacaine) Hegins MG/ML / 00 Cetacaine Tetracaine (benzocain 20 MG/ML e-tetracai Mucous ne-butambe Membrane n 14-2-2%) Topical Solution [Cetacaine] Fentanyl 2018-11 No Notes: Memoria 2-02 (Same as: l 16:55: Sublimaze) González Preservati ve free. Benzocaine 2018-11 No Notes: Memor ia 140 MG/ML / 2-02 (Same As: l [place] 20 16:55: Cetacaine) Hegins MG/ML / 00 Cetacaine Tetracaine (benzocain 20 MG/ML e-tetracai Mucous ne-butambe Membrane n 14-2-2%) Topical Solution [Cetacaine] Fentanyl 2018-11 No Notes: Memoria 2-02 (Same as: l 16:55: Sublimaze) Hegins Preservati ve free. Benzocaine 2018-11 No Notes: Memor ia 140 MG/ML / 2-02 (Same As: l [place] 20 16:55: Cetacaine) Hegins MG/ML / 00 Cetacaine Tetracaine (benzocain 20 MG/ML e-tetracai Mucous ne-butambe Membrane n 14-2-2%) Topical Solution [Cetacaine] Fentanyl 2018-11 No Notes: Memoria 2-02 (Same as: l 16:55: Sublimaze) [place] 00 Preservati ve free. Benzocaine 2018-11 No Notes: Memor ia 140 MG/ML / 2-02 (Same As: l butamben 20 16:55: Cetacaine) [place] MG/ML / 00 Cetacaine Tetracaine (benzocain 20 [...] Memoria 2-02 Give with l 03:00: food. [place] 00 (Same As: Coreg) Coreg 2018-11 No Notes: Memoria 2-02 Give with l 03:00: food. [place] 00 (Same As: Coreg) Coreg 2018-11 No Notes: Memoria 2-02 Give with l 03:00: food. [place] 00 (Same As: Coreg) Coreg 2018-11 No Notes: Memoria 2-02 Give with l 03:00: food. González 00 (Same As: Coreg) Coreg 2018-11 No Notes: Memoria 2-02 Give with l 03:00: food. González 00 (Same As: Coreg) Coreg 2018-11 No Notes: Memoria 2-02 Give with l 03:00: food. González 00 (Same As: Coreg) Coreg 2018-11 No Notes: Memoria 2-02 Give with l 03:00: food. [place] 00 (Same As: Coreg) Coreg 2018-11 No Notes: Memoria 2-02 Give with l 03:00: food. González 00 (Same As: Coreg) Coreg 2018-11 No Notes: Memoria 2-02 Give with l 03:00: food. [place] (Same As: Coreg) Coreg 2018-11 No Notes: Memoria 2-02 Give with l 03:00: food. [place] 00 (Same As: Coreg) Coreg 2018-11 No Notes: Memoria 2-02 Give with l 03:00: food. González 00 (Same As: Coreg) Coreg 2018-11 No Notes: Memoria 2-02 Give with l 03:00: food. González 00 (Same As: Coreg) Coreg 2018-11 No Notes: Memoria 2-02 Give with l 03:00: food. [place] (Same As: Coreg) Coreg 2018-11 No Notes: Memoria 2-02 Give with l 03:00: food. González 00 (Same As: Coreg) Coreg 2018-11 No Notes: Memoria 2-02 Give with l 03:00: food. [place] (Same As: Coreg) Coreg 2018-11 No Notes: Memoria 2-02 Give with l 03:00: food. González 00 (Same As: Coreg) Coreg 2018-11 No Notes: Memoria 2-02 Give with l 03:00: food. [place] 00 (Same As: Coreg) Coreg 2018-11 No Notes: Memoria 2-02 Give with l 03:00: food. [place] 00 (Same As: Coreg) Coreg 2018-11 No Notes: Memoria 2-02 Give with l 03:00: food. González 00 (Same As: Coreg) Coreg 2018-11 No Notes: Memoria 2-02 Give with l 03:00: food. González 00 (Same As: Coreg) Coreg 2018-11 No Notes: Memoria 2-02 Give with l 03:00: food. González (Same As: Coreg) Aldactone 2018-11 No Notes: Memori a 2-01 (Same As: l 23:00: Aldactone) González Aldactone 2018-11 No Notes: Memori a 2-01 (Same As: l 23:00: Aldactone) [place] Aldactone 2018-11 No Notes: Memori a 2-01 (Same As: l 23:00: Aldactone) [place] Aldactone 2018-11 No Notes: Memori a 2-01 (Same As: l 23:00: Aldactone) [place] Aldactone 2018-11 No Notes: Memori a 2-01 (Same As: l 23:00: Aldactone) Gonz[place]lez 00 Aldactone 2018-11 No Notes: Memori a 2-01 (Same As: l 23:00: Aldactone) González Aldactone 2018-11 No Notes: Memori a 2-01 (Same As: l 23:00: Aldactone) [place] Aldactone 2018-11 No Notes: Memori a 2-01 (Same As: l 23:00: Aldactone) [place] Aldactone 2018-11 No Notes: Memori a 2-01 (Same As: l 23:00: Aldactone) González Aldactone 2018-11 No Notes: Memori a 2-01 (Same As: l 23:00: Aldactone) [place] Aldactone 2018-11 No Notes: Memori a 2-01 (Same As: l 23:00: Aldactone) González Aldactone 2018-11 No Notes: Memori a 2-01 (Same As: l 23:00: Aldactone) [place] Aldactone 2018-11 No Notes: Memori a 2-01 (Same As: l 23:00: Aldactone) González Aldactone 2018-11 No Notes: Memori a 2-01 (Same As: l 23:00: Aldactone) [place] Aldactone 2018-11 No Notes: Memori a 2-01 (Same As: l 23:00: Aldactone) González Aldactone 2018-11 No Notes: Memori a 2-01 (Same As: l 23:00: Aldactone) [place] 00 Aldactone 2018-11 No Notes: Memori a 2-01 (Same As: l 23:00: Aldactone) González Aldactone 2018-11 No Notes: Memori a 2- (Same As: l 23:00: Aldactone) [place] Aldactone 2018-11 No Notes: Memori a 2- (Same As: l 23:00: Aldactone) González Aldactone 2018-11 No Notes: Memori a 2- (Same As: l 23:00: Aldactone) González Aldactone 2018-11 No Notes: Memori a 2- (Same As: l 23:00: Aldactone) [place] Hydralazine 2018-11 No Notes: Maxwell janell 1-30 [...] janell 1-30 (Same as: l 19:00: Apresoline [place] 00 ) May interfere w/enteral feedings Take With Food. Hydralazine 2018-11 No Notes: Maxwell ajnell 1-30 (Same as: l 19:00: Apresoline [place] 00 ) May interfere w/enteral feedings Take With Food. Hydralazine 2018-11 No Notes: Maxwell janell 1-30 (Same as: l 19:00: Apresoline [place] 00 ) May interfere w/enteral feedings Take With Food. Hydralazine 2018-11 No Notes: Maxwell janell 1-30 (Same as: l 19:00: Apresoline González 00 ) May interfere w/enteral feedings Take With Food. Hydralazine 2018-11 No Notes: Maxwell janell 1-30 (Same as: l 19:00: Apresoline [place] 00 ) May interfere w/enteral feedings Take [...] janell 1-30 (Same as: l 19:00: Apresoline [place] 00 ) May interfere w/enteral feedings Take With Food. Hydralazine 2018-11 No Notes: Maxwell janell 1-30 (Same as: l 19:00: Apresoline [place] 00 ) May interfere w/enteral feedings Take With Food. Hydralazine 2018-11 No Notes: Maxwell janell 1-30 (Same as: l 19:00: Apresoline González 00 ) May interfere w/enteral feedings Take With Food. Hydralazine 2018-11 No Notes: Maxwell janell 1-30 (Same as: l 19:00: Apresoline [place] 00 ) May interfere w/enteral feedings Take With Food. Hydralazine 2018-11 No Notes: Maxwell janell 1-30 (Same as: l 19:00: Apresoline [place] 00 ) May interfere w/enteral feedings Take With Food. Coreg 2018-11 No Notes: Memoria 1-30 Give with l 18:30: food. [place] 00 (Same As: Coreg) Coreg 2018-11 No Notes: Memoria 1-30 Give with l 18:30: food. [place] 00 (Same As: Coreg) Coreg 2018-11 No Notes: Memoria 1-30 Give with l 18:30: food. [place] 00 (Same As: Coreg) Coreg 2018-11 No Notes: Memoria 1-30 Give with l 18:30: food. González 00 (Same As: Coreg) Coreg 2018-11 No Notes: Memoria 1-30 Give with l 18:30: food. [place] 00 (Same As: Coreg) Coreg 2018-11 No Notes: Memoria 1-30 Give with l 18:30: food. [place] 00 (Same As: Coreg) Coreg 2018-11 No Notes: Memoria 1-30 Give with l 18:30: food. González 00 (Same As: Coreg) Coreg 2018-11 No Notes: Memoria 1-30 Give with l 18:30: food. [place] 00 (Same As: Coreg) Coreg 2018-11 No Notes: Memoria 1-30 Give with l 18:30: food. [place] 00 (Same As: Coreg) Coreg 2018-11 No Notes: Memoria 1-30 Give with l 18:30: food. González 00 (Same As: Coreg) Coreg 2018-11 No Notes: Memoria 1-30 Give with l 18:30: food. González 00 (Same As: Coreg) Coreg 2018-11 No Notes: Memoria 1-30 Give with l 18:30: food. [place] 00 (Same As: Coreg) Coreg 2018-11 No Notes: Memoria 1-30 Give with l 18:30: food. [place] 00 (Same As: Coreg) Coreg 2018-11 No [...] Memoria 1-30 Give with l 18:30: food. [place] 00 (Same As: Coreg) Ramipril 2018-11 No Notes: Memoria 1-30 (Same l 15:37: as:Altace) [place] 00 Ramipril 2018-11 No Notes: Memoria 1-30 (Same l 15:37: as:Altace) [place] 00 Ramipril 2018-11 No Notes: Memoria 1-30 (Same l 15:37: as:Altace) González Ramipril 2018-11 No Notes: Memoria 1-30 (Same l 15:37: as:Altace) [place] 00 Ramipril 2018-11 No Notes: Memoria 1-30 (Same l 15:37: as:Altace) González Ramipril 2018-11 No Notes: Memoria 1-30 (Same l 15:37: as:Altace) González Ramipril 2018-11 No Notes: Memoria 1-30 (Same l 15:37: as:Altace) González Ramipril 2018-11 No Notes: Memoria 1-30 (Same l 15:37: as:Altace) González Ramipril 2018-11 No Notes: Memoria 1-30 (Same l 15:37: as:Altace) [place] 00 Ramipril 2018-11 No Notes: Memoria 1-30 [...] 1-30 25 mL, l (D50W) 13:48: Route: IVP, Drug Form: INJ, Dosing Weight 64.7, kg, PRN, PRN Blood Glucose Results, Start date: 10/24/19 7:48:00 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, Duration: 30 day, Stop date: 11/23/19 7:47:00 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, 0 Glucagon 2018-11 No 1 mg, Memoria 12-24 Route: IM, l 13:48: Drug form: González 00 PDR/INJ, PRN, Dosing Weight 64.7, kg, PRN Blood Glucose Results, Start date: 10/24/19 7:48:00 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, Duration: 30 day, Stop date: 11/23/19 7:47:00 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, 0 Insulin 2018-11 No Notes: Memoria Lispro [...] 1-30 25 mL, l (D50W) 13:48: Route: [place] 00 IVP, Drug Form: INJ, Dosing Weight 64.7, kg, PRN, PRN Blood Glucose Results, Start date: 10/24/19 7:48:00 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, Duration: 30 day, Stop date: 11/23/19 7:47:00 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, 0 Glucagon 2018-11 No 1 mg, Memoria 12-24 Route: IM, l 13:48: Drug form: [place] 00 PDR/INJ, PRN, Dosing Weight 64.7, kg, PRN Blood Glucose Results, Start date: 10/24/19 7:48:00 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, Duration: 30 day, Stop date: 11/23/19 7:47:00 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, 0 Insulin 2018-11 No Notes: Memoria Lispro [...] Blood Glucose Results, Start date: 10/24/19 7:48:00 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, Duration: 30 day, Stop date: 11/23/19 7:47:00 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, 0 Glucagon 2018- No 1 mg, Memoria 1-30 Route: IM, l 13:48: Drug form: González 00 PDR/INJ, PRN, Dosing Weight 64.7, kg, PRN Blood Glucose Results, Start date: 10/24/19 7:48:00 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, Duration: 30 day, Stop date: 11/23/19 7:47:00 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, 0 Insulin 2018- No Notes: Memoria Lispro [...] Blood Glucose Results, Start date: 10/24/19 7:48:00 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, Duration: 30 day, Stop date: 11/23/19 7:47:00 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, 0 Glucagon 2018-11 No 1 mg, Memoria 1-30 Route: IM, l 13:48: Drug form: González 00 PDR/INJ, PRN, Dosing Weight 64.7, kg, PRN Blood Glucose Results, Start date: 10/24/19 7:48:00 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, Duration: 30 day, Stop date: 11/23/19 7:47:00 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, 0 Insulin 2018- No Notes: Memoria Lispro 1-30 (Same as: l 13:48: Humalog) [place] 00 Roll in palms of hands gently; Do not shake vigorously . WASTE: F/P - Black; E - Municipal Trash Bin Stable for 28 days at room temperatur e. Expires in days from ____Date Dextrose 2018- No 12.5 gm, Memor ia 50% Syringe 1-30 25 mL, l (D50W) 13:48: Route: [place] 00 IVP, Drug Form: INJ, Dosing Weight 64.7, kg, PRN, PRN Blood Glucose Results, Start date: 10/24/19 7:48:00 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, Duration: 30 day, Stop date: 11/23/19 7:47:00 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, 0 Glucagon 2018-11 No 1 mg, Memoria 130 Route: IM, l 13:48: Drug form: González 00 PDR/INJ, PRN, Dosing Weight 64.7, kg, PRN Blood Glucose Results, Start date: 10/24/19 7:48:00 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, Duration: 30 day, Stop date: 11/23/19 7:47:00 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, 0 Insulin 2018-11 No Notes: Memoria Lispro [...] Blood Glucose Results, Start date: 10/24/19 7:48:00 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, Duration: 30 day, Stop date: 11/23/19 7:47:00 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, 0 Glucagon 2018-11 No 1 mg, Memoria 1-30 Route: IM, l 13:48: Drug form: [place] 00 PDR/INJ, PRN, Dosing Weight 64.7, kg, PRN Blood Glucose Results, Start date: 10/24/19 7:48:00 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, Duration: 30 day, Stop date: 11/23/19 7:47:00 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, 0 Insulin 2018-11 No Notes: Memoria Lispro [...] 1-30 25 mL, l (D50W) 13:48: Route: [place] 00 IVP, Drug Form: INJ, Dosing Weight 64.7, kg, PRN, PRN Blood Glucose Results, Start date: 10/24/19 7:48:00 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, Duration: 30 day, Stop date: 11/23/19 7:47:00 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, 0 Glucagon 2018-11 No 1 mg, Memoria 12-24 Route: IM, l 13:48: Drug form: González 00 PDR/INJ, PRN, Dosing Weight 64.7, kg, PRN Blood Glucose Results, Start date: 10/24/19 7:48:00 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, Duration: 30 day, Stop date: 11/23/19 7:47:00 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, 0 Insulin 2018-11 No Notes: Memoria Lispro 1-30 (Same as: l 13:48: Humalog) [place] 00 Roll in palms of hands gently; [...] Blood Glucose Results, Start date: 10/24/19 7:48:00 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, Duration: 30 day, Stop date: 11/23/19 7:47:00 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, 0 Glucagon 2018-11 No 1 mg, Memoria 30 Route: IM, l 13:48: Drug form: [place] 00 PDR/INJ, PRN, Dosing Weight 64.7, kg, PRN Blood Glucose Results, Start date: 10/24/19 7:48:00 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, Duration: 30 day, Stop date: 11/23/19 7:47:00 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, 0 Insulin 2018- No Notes: Memoria Lispro 1-30 (Same as: l 13:48: Humalog) [place] 00 Roll in palms of hands gently; Do not shake vigorously . WASTE: F/P - Black; E - Municipal Trash Bin Stable for 28 days at room temperatur e. Expires in days from ____Date Dextrose 2018-11 No 12.5 gm, Memor ia 50% Syringe 1-30 25 mL, l (D50W) 13:48: Route: [place] 00 IVP, Drug Form: INJ, Dosing Weight 64.7, kg, PRN, PRN Blood Glucose Results, Start date: 10/24/19 7:48:00 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, Duration: 30 day, Stop date: 11/23/19 7:47:00 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, 0 Glucagon 2018-11 No 1 mg, Memoria 1-30 Route: IM, l 13:48: Drug form: González 00 PDR/INJ, PRN, Dosing Weight 64.7, kg, PRN Blood Glucose Results, Start date: 10/24/19 7:48:00 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, Duration: 30 day, Stop date: 11/23/19 7:47:00 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, 0 Insulin 2018-11 No Notes: Memoria Lispro 1-30 (Same as: l 13:48: Humalog) [place] 00 Roll in palms of hands gently; [...] Blood Glucose Results, Start date: 10/24/19 7:48:00 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, Duration: 30 day, Stop date: 11/23/19 7:47:00 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, 0 Glucagon 2018- No 1 mg, Memoria 1-30 Route: IM, l 13:48: Drug form: [place] 00 PDR/INJ, PRN, Dosing Weight 64.7, kg, PRN Blood Glucose Results, Start date: 10/24/19 7:48:00 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, Duration: 30 day, Stop date: 11/23/19 7:47:00 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, 0 Insulin 2018-11 No Notes: Memoria Lispro 1-30 (Same as: l 13:48: Humalog) [place] 00 Roll in palms of hands gently; Do not shake vigorously . WASTE: F/P - Black; E - Municipal Trash Bin Stable for 28 days at room temperatur e. Expires in days from ____Date Dextrose 2018-11 No 12.5 gm, Memor ia 50% Syringe 1-30 25 mL, l (D50W) 13:48: Route: [place] 00 IVP, Drug Form: INJ, Dosing Weight 64.7, kg, PRN, PRN Blood Glucose Results, Start date: 10/24/19 7:48:00 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, Duration: 30 day, Stop date: 11/23/19 7:47:00 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, 0 Glucagon 2018-11 No 1 mg, Memoria 1-30 Route: IM, l 13:48: Drug form: González 00 PDR/INJ, PRN, Dosing Weight 64.7, kg, PRN Blood Glucose Results, Start date: 10/24/19 7:48:00 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, Duration: 30 day, Stop date: 11/23/19 7:47:00 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, 0 Insulin 2018- No Notes: Memoria Lispro 1-30 (Same as: l 13:48: Humalog) [place] 00 Roll in palms of hands gently; [...] Blood Glucose Results, Start date: 10/24/19 7:48:00 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, Duration: 30 day, Stop date: 11/23/19 7:47:00 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, 0 Glucagon 2018-11 No 1 mg, Memoria 30 Route: IM, l 13:48: Drug form: González 00 PDR/INJ, PRN, Dosing Weight 64.7, kg, PRN Blood Glucose Results, Start date: 10/24/19 7:48:00 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, Duration: 30 day, Stop date: 11/23/19 7:47:00 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, 0 Insulin 2018- No Notes: Memoria Lispro 1-30 (Same as: l 13:48: Humalog) Roll in palms of hands gently; Do not shake vigorously . WASTE: F/P - Black; E - Municipal Trash Bin Stable for 28 days at room temperatur e. Expires in days from ____Date Dextrose 2018-11 No 12.5 gm, Memor ia 50% Syringe 1-30 25 mL, l (D50W) 13:48: Route: [place] 00 IVP, Drug Form: INJ, Dosing Weight 64.7, kg, PRN, PRN Blood Glucose Results, Start date: 10/24/19 7:48:00 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, Duration: 30 day, Stop date: 11/23/19 7:47:00 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, 0 Glucagon 2018-11 No 1 mg, Memoria 30 Route: IM, l 13:48: Drug form: [place] 00 PDR/INJ, PRN, Dosing Weight 64.7, kg, PRN Blood Glucose Results, Start date: 10/24/19 7:48:00 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, Duration: 30 day, Stop date: 11/23/19 7:47:00 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, 0 Insulin 2018- No Notes: Memoria Lispro 1-30 (Same as: l 13:48: Humalog) [place] 00 Roll in palms of hands gently; [...] Blood Glucose Results, Start date: 10/24/19 7:48:00 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, Duration: 30 day, Stop date: 11/23/19 7:47:00 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, 0 Glucagon 2018-11 No 1 mg, Memoria 130 Route: IM, l 13:48: Drug form: [place] 00 PDR/INJ, PRN, Dosing Weight 64.7, kg, PRN Blood Glucose Results, Start date: 10/24/19 7:48:00 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, Duration: 30 day, Stop date: 11/23/19 7:47:00 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, 0 Insulin 2018-11 No Notes: Memoria Lispro 1-30 (Same as: l 13:48: Humalog) Roll in palms of hands gently; Do not shake vigorously . WASTE: F/P - Black; E - Municipal Trash Bin Stable for 28 days at room temperatur e. Expires in days from ____Date Dextrose 2018-11 No 12.5 gm, Memor ia 50% Syringe 1-30 25 mL, l (D50W) 13:48: Route: [place] 00 IVP, Drug Form: INJ, Dosing Weight 64.7, kg, PRN, PRN Blood Glucose Results, Start date: 10/24/19 7:48:00 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, Duration: 30 day, Stop date: 11/23/19 7:47:00 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, 0 Glucagon 2018-11 No 1 mg, Memoria 1-30 Route: IM, l 13:48: Drug form: [place] 00 PDR/INJ, PRN, Dosing Weight 64.7, kg, PRN Blood Glucose Results, Start date: 10/24/19 7:48:00 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, Duration: 30 day, Stop date: 11/23/19 7:47:00 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, 0 Insulin 2018-11 No Notes: Memoria Lispro [...] 1-30 25 mL, l (D50W) 13:48: Route: [place] 00 IVP, Drug Form: INJ, Dosing Weight 64.7, kg, PRN, PRN Blood Glucose Results, Start date: 10/24/19 7:48:00 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, Duration: 30 day, Stop date: 11/23/19 7:47:00 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, 0 Glucagon 2018-11 No 1 mg, Memoria 12-24 Route: IM, l 13:48: Drug form: [place] 00 PDR/INJ, PRN, Dosing Weight 64.7, kg, PRN Blood Glucose Results, Start date: 10/24/19 7:48:00 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, Duration: 30 day, Stop date: 11/23/19 7:47:00 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, 0 Dextrose 2018-11 No 12.5 gm, Memor ia 50% Syringe 1-30 25 mL, l (D50W) 13:48: Route: [place] 00 IVP, Drug Form: INJ, Dosing Weight 64.7, kg, PRN, PRN Blood Glucose Results, Start date: 10/24/19 7:48:00 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, Duration: 30 day, Stop date: 11/23/19 7:47:00 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, 0 Glucagon 2018-11 No 1 mg, Memoria 12-24 Route: IM, l 13:48: Drug form: [place] 00 PDR/INJ, PRN, Dosing Weight 64.7, kg, PRN Blood Glucose Results, Start date: 10/24/19 7:48:00 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, Duration: 30 day, Stop date: 11/23/19 7:47:00 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, 0 Insulin 2018- No Notes: Memoria Lispro 1-30 (Same as: l 13:48: Humalog) [place] 00 Roll in palms of hands gently; Do not shake vigorously . WASTE: F/P - Black; E - Municipal Trash Bin Stable for 28 days at room temperatur e. Expires in days from ____Date Insulin 2018-11 No Notes: Memoria Lispro 1-30 (Same as: l 13:48: Humalog) [place] 00 Roll in palms of hands gently; Do not shake vigorously . WASTE: F/P - Black; E - Municipal Trash Bin Stable for 28 days at room temperatur e. Expires in days from ____Date Dextrose 2018-11 No 12.5 gm, Memor ia 50% Syringe 1-30 25 mL, l (D50W) 13:48: Route: [place] 00 IVP, Drug Form: INJ, Dosing Weight 64.7, kg, PRN, PRN Blood Glucose Results, Start date: 10/24/19 7:48:00 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, Duration: 30 day, Stop date: 11/23/19 7:47:00 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, 0 Glucagon 2018-11 No 1 mg, Memoria 1-30 Route: IM, l 13:48: Drug form: González 00 PDR/INJ, PRN, Dosing Weight 64.7, kg, PRN Blood Glucose Results, Start date: 10/24/19 7:48:00 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, Duration: 30 day, Stop date: 11/23/19 7:47:00 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, 0 Insulin 2018-11 No Notes: Memoria Lispro [...] 1-30 25 mL, l (D50W) 13:48: Route: [place] 00 IVP, Drug Form: INJ, Dosing Weight 64.7, kg, PRN, PRN Blood Glucose Results, Start date: 10/24/19 7:48:00 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, Duration: 30 day, Stop date: 11/23/19 7:47:00 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, 0 Glucagon 2018- No 1 mg, Memoria 1-30 Route: IM, l 13:48: Drug form: [place] 00 PDR/INJ, PRN, Dosing Weight 64.7, kg, PRN Blood Glucose Results, Start date: 10/24/19 7:48:00 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, Duration: 30 day, Stop date: 11/23/19 7:47:00 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, 0 Insulin 2018-11 No Notes: Memoria Lispro 1-30 (Same as: l 13:48: Humalog) [place] 00 Roll in palms of hands gently; [...] Blood Glucose Results, Start date: 10/24/19 7:48:00 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, Duration: 30 day, Stop date: 11/23/19 7:47:00 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, 0 Glucagon 2018-11 No 1 mg, Memoria 1-30 Route: IM, l 13:48: Drug form: González 00 PDR/INJ, PRN, Dosing Weight 64.7, kg, PRN Blood Glucose Results, Start date: 10/24/19 7:48:00 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, Duration: 30 day, Stop date: 11/23/19 7:47:00 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, 0 Insulin 2018- No Notes: Mem[facility] Lispro 1-30 (Same as: l 13:48: Humalog) [place] 00 Roll in palms of hands gently; Do not shake vigorously . WASTE: F/P - Black; E - Municipal Trash Bin Stable for 28 days at room temperatur e. Expires in days from ____Date Dextrose 2018-11 No 12.5 gm, Memor ia 50% Syringe 1-30 25 mL, l (D50W) 13:48: Route: [place] 00 IVP, Drug Form: INJ, Dosing Weight 64.7, kg, PRN, PRN Blood Glucose Results, Start date: 10/24/19 7:48:00 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, Duration: 30 day, Stop date: 11/23/19 7:47:00 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, 0 Glucagon 2018-11 No 1 mg, Memoria 1-30 Route: IM, l 13:48: Drug form: González 00 PDR/INJ, PRN, Dosing Weight 64.7, kg, PRN Blood Glucose Results, Start date: 10/24/19 7:48:00 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, Duration: 30 day, Stop date: 11/23/19 7:47:00 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, 0 Insulin 2018-11 No Notes: [facility] Lispro 1-30 (Same as: l 13:48: Humalog) [place] 00 Roll in palms of hands gently; [...] (Same as: l MG Oral 03:00: Colace) [place] Capsule 00 (Do Not [Colace] Crush) Docusate 2018-11 No Notes: Memoria Sodium 100 1-30 (Same as: l MG Oral 03:00: Colace) [place] Capsule 00 (Do Not [Colace] Crush) Docusate 2018-11 No Notes: [facility] Sodium 100 1-30 (Same as: l MG Oral 03:00: Colace) [place] Capsule 00 (Do Not [Colace] Crush) Docusate 2018-11 No Notes: [facility] Sodium 100 1-30 (Same as: l MG Oral 03:00: Colace) [place] Capsule 00 (Do Not [Colace] Crush) Docusate 2018-11 No Notes: Mem[facility] Sodium 100 1-30 (Same as: l MG Oral 03:00: Colace) González Capsule 00 (Do Not [Colace] Crush) Docusate 2018-11 No Notes: [facility] Sodium 100 1-30 (Same as: l MG Oral 03:00: Colace) [place] Capsule 00 (Do Not [Colace] Crush) usate 2018-11 No Notes: Memoria Sodium 100 1-30 (Same as: l MG Oral 03:00: Colace) González Capsule 00 (Do Not [Colace] Crush) te 2018-11 No Notes: Memoria Sodium 100 1-30 (Same as: l MG Oral 03:00: Colace) Hegins Capsule 00 (Do Not [Colace] Crush) te 2018-11 No Notes: Memoria Sodium 100 1-30 (Same as: l MG Oral 03:00: Colace) González Capsule 00 (Do Not [Colace] Crush) Docusate 2018-11 No Notes: Memoria Sodium 100 1-30 (Same as: l MG Oral 03:00: Colace) Hegins Capsule 00 (Do Not [Colace] Crush) te 2018-11 No Notes: Memoria Sodium 100 1-30 (Same as: l MG Oral 03:00: Colace) González Capsule 00 (Do Not [Colace] Crush) te 2018-11 No Notes: Memoria Sodium 100 1-30 [...] (Same as: l MG Oral 03:00: Colace) Hegins Capsule 00 (Do Not [Colace] Crush) Docusate [...] (Same as: l MG Oral 03:00: Colace) Hegins Capsule 00 (Do Not [Colace] Crush) enalapril 2018-11 No 10 mg = 1 Mem oria 10 mg oral 1-30 tab, PO, l tablet 00:32: Daily, # Hegins 00 30 tab, 0 Refill(s) Furosemide 2018-11 No 40 mg = 1 Me moria 40 MG Oral 1-30 tab, PO, l Tablet 00:32: Daily, # Hegins 00 30 tab, 0 Refill(s) ramipril 5 [...] tab, PO, l Tablet 00:32: Daily, # Hegins 00 30 tab, 0 Refill(s) ramipril 5 [...] tab, PO, l tablet 00:32: Daily, # Hegins 00 30 tab, 0 Refill(s) Furosemide 2018-11 No 40 mg = 1 Me moria 40 MG Oral 1-30 tab, PO, l Tablet 00:32: Daily, # Hegins 00 30 tab, 0 Refill(s) ramipril 5 [...] tab, PO, l Tablet 00:32: Daily, # Hegins 00 30 tab, 0 Refill(s) ramipril 5 [...] tab, PO, l Tablet 00:32: Daily, # Hegins 00 30 tab, 0 Refill(s) ramipril 5 [...] tab, PO, l tablet 00:32: Daily, # Hegins 00 30 tab, 0 Refill(s) Furosemide 2018-11 No 40 mg = 1 Me moria 40 MG Oral 1-30 tab, PO, l Tablet 00:32: Daily, # Hegins 00 30 tab, 0 Refill(s) ramipril 5 [...] tab, PO, l tablet 00:32: Daily, # Hegins 00 30 tab, 0 Refill(s) Furosemide 2018-11 [...] tab, PO, l tablet 00:32: Bedtime, # [place] nn 00 30 tab, 0 Refill(s) enalapril 2018-11 No 10 mg = 1 Mem oria 10 mg oral 1-30 tab, PO, l tablet 00:32: Daily, # Hegins 00 30 tab, 0 Refill(s) Furosemide 2018-11 No 40 mg = 1 Me moria 40 MG Oral 1-30 tab, PO, l Tablet 00:32: Daily, # Hegins 00 30 tab, 0 Refill(s) ramipril 5 [...] tab, PO, l tablet 00:32: Daily, # Hegins 00 30 tab, 0 Refill(s) Furosemide 2018-11 No 40 mg = 1 Me moria 40 MG Oral 1-30 tab, PO, l Tablet 00:32: Daily, # Hegins 00 30 tab, 0 Refill(s) ramipril 5 [...] tab, PO, l Tablet 00:32: Daily, # Hegins 00 30 tab, 0 Refill(s) ramipril 5 [...] tab, PO, l tablet 00:32: Daily, # Hegins 00 30 tab, 0 Refill(s) Furosemide 2018-11 [...] tab, PO, l tablet 00:32: Daily, # Hegins 00 30 tab, 0 Refill(s) Furosemide 2018-11 No 40 mg = 1 Me moria 40 MG Oral 1-30 tab, PO, l Tablet 00:32: Daily, # Hegins 00 30 tab, 0 Refill(s) ramipril 5 [...] tab, PO, l tablet 00:32: Daily, # Hegins 00 30 tab, 0 Refill(s) Furosemide 2018-11 [...] influenza 2018-11 No Notes: Memori a virus 12-24 (Same as: l vaccine, 00:10: Fluzone Matthew [...] janell 1-30 (Same as: l 00:00: Apresoline Hegins 00 ) May interfere w/enteral feedings Take With Food. Hydralazine 2018-11 No Notes: Maxwell janell 1-30 (Same as: l 00:00: Apresoline Hegins 00 ) May interfere w/enteral feedings Take [...] janell 1-30 (Same as: l 00:00: Apresoline Hegins 00 ) May interfere w/enteral feedings Take With Food. Hydralazine 2018-11 No Notes: Maxwell janell 1-30 (Same as: l 00:00: Apresoline Gnozález 00 ) May interfere w/enteral feedings Take With Food. Hydralazine 2018-11 No Notes: Maxwell janell 1-30 (Same as: l 00:00: Apresoline González 00 ) May interfere w/enteral feedings Take With Food. Hydralazine 2018-11 No Notes: Maxwell janell 1-30 (Same as: l 00:00: Apresoline Hegins 00 ) May interfere w/enteral feedings Take With Food. Hydralazine 2018-11 No Notes: Maxwell janell 1-30 (Same as: l 00:00: Apresoline Hegins 00 ) May interfere w/enteral feedings Take With Food. Hydralazine 2018-11 No Notes: Maxwell janell 1-30 (Same as: l 00:00: Apresoline González 00 ) May interfere w/enteral feedings Take With Food. Hydralazine 2018-11 No Notes: Maxwell janell 1-30 (Same as: l 00:00: Apresoline Hegins 00 ) May interfere w/enteral feedings Take [...] janell 1-30 (Same as: l 00:00: Apresoline Hegins 00 ) May interfere w/enteral feedings Take [...] janell 1-30 (Same as: l 00:00: Apresoline Hegins 00 ) May interfere w/enteral feedings Take With Food. Hydralazine 2018-11 No Notes: Maxwell janell 1-30 (Same as: l 00:00: Apresoline González 00 ) May interfere w/enteral feedings Take With Food. Hydralazine 2018-11 No Notes: Maxwell janell 1-30 (Same as: l 00:00: Apresoline González 00 ) May interfere w/enteral feedings Take With Food. sodium 2019-1 No 2,000 mL, Memori a chloride 1-29 0 ml/hr, l 0.9% 22:38: Infuse González (Priming 00 Over: 0 and hr, Route: Maintenance IV, 2,000, ) Drug form: INJ, PRN, Dosing Weight 64.7 kg, Start date: 10/23/19 16:38:00 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, Duration: 24 hr, Stop date: 10/24/19 16:37:00 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, For Use by Dialysis Nurse ONLY, PRN Dialysis, 0 sodium 2019-1 No 2,000 mL, Memori a chloride 1-29 0 ml/hr, l 0.9% 22:38: Infuse González (Priming 00 Over: 0 and hr, Route: Maintenance IV, 2,000, ) Drug form: INJ, PRN, Dosing Weight 64.7 kg, Start date: 10/23/19 16:38:00 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, Duration: 24 hr, Stop date: 10/24/19 16:37:00 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, For Use by Dialysis Nurse ONLY, PRN Dialysis, 0 sodium 2018- No 2,000 mL, Memori a chloride 1-29 0 ml/hr, l 0.9% 22:38: Infuse González (Priming 00 Over: 0 and hr, Route: Maintenance IV, 2,000, ) Drug form: INJ, PRN, Dosing Weight 64.7 kg, Start date: 10/23/19 16:38:00 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, Duration: 24 hr, Stop date: 10/24/19 16:37:00 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, For Use by Dialysis Nurse ONLY, PRN Dialysis, 0 sodium 2019-1 No 2,000 mL, Memori a chloride 1-29 0 ml/hr, l 0.9% 22:38: Infuse González (Priming 00 Over: 0 and hr, Route: Maintenance IV, 2,000, ) Drug form: INJ, PRN, Dosing Weight 64.7 kg, Start date: 10/23/19 16:38:00 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, Duration: 24 hr, Stop date: 10/24/19 16:37:00 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, For Use by Dialysis Nurse ONLY, PRN Dialysis, 0 sodium 2019-1 No 2,000 mL, Memori a chloride 1-29 0 ml/hr, l 0.9% 22:38: Infuse Hegins (Priming 00 Over: 0 and hr, Route: Maintenance IV, 2,000, ) Drug form: INJ, PRN, Dosing Weight 64.7 kg, Start date: 10/23/19 16:38:00 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, Duration: 24 hr, Stop date: 10/24/19 16:37:00 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, For Use by Dialysis Nurse ONLY, PRN Dialysis, 0 sodium 2019-1 No 2,000 mL, Memori a chloride 1-29 0 ml/hr, l 0.9% 22:38: Infuse Hegins (Priming 00 Over: 0 and hr, Route: Maintenance IV, 2,000, ) Drug form: INJ, PRN, Dosing Weight 64.7 kg, Start date: 10/23/19 16:38:00 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, Duration: 24 hr, Stop date: 10/24/19 16:37:00 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, For Use by Dialysis Nurse ONLY, PRN Dialysis, 0 sodium 2019-1 No 2,000 mL, Memori a chloride 1-29 0 ml/hr, l 0.9% 22:38: Infuse González (Priming 00 Over: 0 and hr, Route: Maintenance IV, 2,000, ) Drug form: INJ, PRN, Dosing Weight 64.7 kg, Start date: 10/23/19 16:38:00 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, Duration: 24 hr, Stop date: 10/24/19 16:37:00 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, For Use by Dialysis Nurse ONLY, PRN Dialysis, 0 sodium 2019-1 No 2,000 mL, Memori a chloride 1-29 0 ml/hr, l 0.9% 22:38: Infuse González (Priming 00 Over: 0 and hr, Route: Maintenance IV, 2,000, ) Drug form: INJ, PRN, Dosing Weight 64.7 kg, Start date: 10/23/19 16:38:00 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, Duration: 24 hr, Stop date: 10/24/19 16:37:00 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, For Use by Dialysis Nurse ONLY, PRN Dialysis, 0 sodium 2019-1 No 2,000 mL, Memori a chloride 1-29 0 ml/hr, l 0.9% 22:38: Infuse Hegins (Priming 00 Over: 0 and hr, Route: Maintenance IV, 2,000, ) Drug form: INJ, PRN, Dosing Weight 64.7 kg, Start date: 10/23/19 16:38:00 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, Duration: 24 hr, Stop date: 10/24/19 16:37:00 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, For Use by Dialysis Nurse ONLY, PRN Dialysis, 0 sodium 2019-1 No 2,000 mL, Memori a chloride 1-29 0 ml/hr, l 0.9% 22:38: Infuse Hegins (Priming 00 Over: 0 and hr, Route: Maintenance IV, 2,000, ) Drug form: INJ, PRN, Dosing Weight 64.7 kg, Start date: 10/23/19 16:38:00 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, Duration: 24 hr, Stop date: 10/24/19 16:37:00 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, For Use by Dialysis Nurse ONLY, PRN Dialysis, 0 sodium 2019-1 No 2,000 mL, Memori a chloride 1-29 0 ml/hr, l 0.9% 22:38: Infuse Hegins (Priming 00 Over: 0 and hr, Route: Maintenance IV, 2,000, ) Drug form: INJ, PRN, Dosing Weight 64.7 kg, Start date: 10/23/19 16:38:00 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, Duration: 24 hr, Stop date: 10/24/19 16:37:00 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, For Use by Dialysis Nurse ONLY, PRN Dialysis, 0 sodium 2019-1 No 2,000 mL, Memori a chloride 1-29 0 ml/hr, l 0.9% 22:38: Infuse González (Priming 00 Over: 0 and hr, Route: Maintenance IV, 2,000, ) Drug form: INJ, PRN, Dosing Weight 64.7 kg, Start date: 10/23/19 16:38:00 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, Duration: 24 hr, Stop date: 10/24/19 16:37:00 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, For Use by Dialysis Nurse ONLY, PRN Dialysis, 0 sodium 2019-1 No 2,000 mL, Memori a chloride 1-29 0 ml/hr, l 0.9% 22:38: Infuse Hegins (Priming 00 Over: 0 and hr, Route: Maintenance IV, 2,000, ) Drug form: INJ, PRN, Dosing Weight 64.7 kg, Start date: 10/23/19 16:38:00 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, Duration: 24 hr, Stop date: 10/24/19 16:37:00 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, For Use by Dialysis Nurse ONLY, PRN Dialysis, 0 sodium 2019-1 No 2,000 mL, Memori a chloride 1-29 0 ml/hr, l 0.9% 22:38: Infuse Hegins (Priming 00 Over: 0 and hr, Route: Maintenance IV, 2,000, ) Drug form: INJ, PRN, Dosing Weight 64.7 kg, Start date: 10/23/19 16:38:00 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, Duration: 24 hr, Stop date: 10/24/19 16:37:00 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, For Use by Dialysis Nurse ONLY, PRN Dialysis, 0 sodium 2019-1 No 2,000 mL, Memori a chloride 1-29 0 ml/hr, l 0.9% 22:38: Infuse Hegins (Priming 00 Over: 0 and hr, Route: Maintenance IV, 2,000, ) Drug form: INJ, PRN, Dosing Weight 64.7 kg, Start date: 10/23/19 16:38:00 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, Duration: 24 hr, Stop date: 10/24/19 16:37:00 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, For Use by Dialysis Nurse ONLY, PRN Dialysis, 0 sodium 2019- No 2,000 mL, Memori a chloride 1-29 0 ml/hr, l 0.9% 22:38: Infuse González (Priming 00 Over: 0 and hr, Route: Maintenance IV, 2,000, ) Drug form: INJ, PRN, Dosing Weight 64.7 kg, Start date: 10/23/19 16:38:00 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, Duration: 24 hr, Stop date: 10/24/19 16:37:00 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, For Use by Dialysis Nurse ONLY, PRN Dialysis, 0 sodium 2019-1 No 2,000 mL, Memori a chloride 1-29 0 ml/hr, l 0.9% 22:38: Infuse Hegins (Priming 00 Over: 0 and hr, Route: Maintenance IV, 2,000, ) Drug form: INJ, PRN, Dosing Weight 64.7 kg, Start date: 10/23/19 16:38:00 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, Duration: 24 hr, Stop date: 10/24/19 16:37:00 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, For Use by Dialysis Nurse ONLY, PRN Dialysis, 0 sodium 2019-1 No 2,000 mL, Memori a chloride 1-29 0 ml/hr, l 0.9% 22:38: Infuse Hegins (Priming 00 Over: 0 and hr, Route: Maintenance IV, 2,000, ) Drug form: INJ, PRN, Dosing Weight 64.7 kg, Start date: 10/23/19 16:38:00 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, Duration: 24 hr, Stop date: 10/24/19 16:37:00 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, For Use by Dialysis Nurse ONLY, PRN Dialysis, 0 sodium 2019-1 No 2,000 mL, Memori a chloride 1-29 0 ml/hr, l 0.9% 22:38: Infuse Hegins (Priming 00 Over: 0 and hr, Route: Maintenance IV, 2,000, ) Drug form: INJ, PRN, Dosing Weight 64.7 kg, Start date: 10/23/19 16:38:00 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, Duration: 24 hr, Stop date: 10/24/19 16:37:00 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, For Use by Dialysis Nurse ONLY, PRN Dialysis, 0 sodium 2019- No 2,000 mL, Memori a chloride 1-29 0 ml/hr, l 0.9% 22:38: Infuse Hegins (Priming 00 Over: 0 and hr, Route: Maintenance IV, 2,000, ) Drug form: INJ, PRN, Dosing Weight 64.7 kg, Start date: 10/23/19 16:38:00 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, Duration: 24 hr, Stop date: 10/24/19 16:37:00 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, For Use by Dialysis Nurse ONLY, PRN Dialysis, 0 sodium 2019-1 No 2,000 mL, Memori a chloride 1-29 0 ml/hr, l 0.9% 22:38: Infuse Hegins (Priming 00 Over: 0 and hr, Route: Maintenance IV, 2,000, ) Drug form: INJ, PRN, Dosing Weight 64.7 kg, Start date: 10/23/19 16:38:00 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, Duration: 24 hr, Stop date: 10/24/19 16:37:00 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, For Use by Dialysis Nurse ONLY, PRN Dialysis, 0 Dextrose 2019- No 12.5 gm, Memor ia 50% Syringe 1-29 25 mL, l (D50W) 19:47: Route: González 00 IVP, Drug Form: INJ, Dosing Weight 64.7, kg, PRN, PRN Blood Glucose Results, Start date: 10/23/19 13:47:00 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, Duration: 30 day, Stop date: 11/22/19 13:46:00 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, 0 Glucagon 2018-11 No 1 mg, Memoria 12-23 Route: IM, l 19:47: Drug form: González 00 PDR/INJ, PRN, Dosing Weight 64.7, kg, PRN Blood Glucose Results, Start date: 10/23/19 13:47:00 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, Duration: 30 day, Stop date: 11/22/19 13:46:00 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, 0 Insulin 2018-11 No Notes: Memoria regular [...] Blood Glucose Results, Start date: 10/23/19 13:47:00 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, Duration: 30 day, Stop date: 11/22/19 13:46:00 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, 0 Glucagon 2018-11 No 1 mg, Memoria 12-23 Route: IM, l 19:47: Drug form: Hegins 00 PDR/INJ, PRN, Dosing Weight 64.7, kg, PRN Blood Glucose Results, Start date: 10/23/19 13:47:00 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, Duration: 30 day, Stop date: 11/22/19 13:46:00 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, 0 Insulin 2018-11 No Notes: Memoria regular [...] Blood Glucose Results, Start date: 10/23/19 13:47:00 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, Duration: 30 day, Stop date: 11/22/19 13:46:00 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, 0 Glucagon 2018-11 No 1 mg, Memoria 12-23 Route: IM, l 19:47: Drug form: Hegins 00 PDR/INJ, PRN, Dosing Weight 64.7, kg, PRN Blood Glucose Results, Start date: 10/23/19 13:47:00 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, Duration: 30 day, Stop date: 11/22/19 13:46:00 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, 0 Insulin 2018-11 No Notes: Memoria regular [...] Blood Glucose Results, Start date: 10/23/19 13:47:00 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, Duration: 30 day, Stop date: 11/22/19 13:46:00 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, 0 Glucagon 2018-11 No 1 mg, Memoria 12-23 Route: IM, l 19:47: Drug form: González 00 PDR/INJ, PRN, Dosing Weight 64.7, kg, PRN Blood Glucose Results, Start date: 10/23/19 13:47:00 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, Duration: 30 day, Stop date: 11/22/19 13:46:00 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, 0 Insulin 2018-11 No Notes: Memoria regular 12-23 (Same as: l 19:47: Humulin R) Hegins 00 Roll in palms of hands gently; [...] Blood Glucose Results, Start date: 10/23/19 13:47:00 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, Duration: 30 day, Stop date: 11/22/19 13:46:00 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, 0 Glucagon 2018-11 No 1 mg, Memoria 12-23 Route: IM, l 19:47: Drug form: González 00 PDR/INJ, PRN, Dosing Weight 64.7, kg, PRN Blood Glucose Results, Start date: 10/23/19 13:47:00 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, Duration: 30 day, Stop date: 11/22/19 13:46:00 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, 0 Insulin 2018-11 No Notes: Memoria regular 12-23 (Same as: l 19:47: Humulin R) Roll in palms of hands gently; Do not shake vigorously . WASTE: F/P - Black; E - Municipal Trash Bin Stable for 31 days at room temperatur e Expires in days from ____Date Dextrose 2018-11 No 12.5 gm, Memor ia 50% Syringe 12-23 25 mL, l (D50W) 19:47: Route: Hegins 00 IVP, Drug Form: INJ, Dosing Weight 64.7, kg, PRN, PRN Blood Glucose Results, Start date: 10/23/19 13:47:00 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, Duration: 30 day, Stop date: 11/22/19 13:46:00 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, 0 Glucagon 2018-11 No 1 mg, Memoria 12-23 Route: IM, l 19:47: Drug form: González 00 PDR/INJ, PRN, Dosing Weight 64.7, kg, PRN Blood Glucose Results, Start date: 10/23/19 13:47:00 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, Duration: 30 day, Stop date: 11/22/19 13:46:00 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, 0 Insulin 2018-11 No Notes: Memoria regular [...] 12-23 25 mL, l (D50W) 19:47: Route: Hegins 00 IVP, Drug Form: INJ, Dosing Weight 64.7, kg, PRN, PRN Blood Glucose Results, Start date: 10/23/19 13:47:00 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, Duration: 30 day, Stop date: 11/22/19 13:46:00 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, 0 Glucagon 2018-11 No 1 mg, Memoria 12-23 Route: IM, l 19:47: Drug form: González 00 PDR/INJ, PRN, Dosing Weight 64.7, kg, PRN Blood Glucose Results, Start date: 10/23/19 13:47:00 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, Duration: 30 day, Stop date: 11/22/19 13:46:00 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, 0 Insulin 2018-11 No Notes: Memoria regular 12-23 (Same as: l 19:47: Humulin R) Hegins 00 Roll in palms of hands gently; Do not shake vigorously . WASTE: F/P - Black; E - Municipal Trash Bin Stable for 31 days at room temperatur e Expires in days from ____Date Dextrose 2018-11 No 12.5 gm, Memor ia 50% Syringe 12-23 25 mL, l (D50W) 19:47: Route: Hegins 00 IVP, Drug Form: INJ, Dosing Weight 64.7, kg, PRN, PRN Blood Glucose Results, Start date: 10/23/19 13:47:00 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, Duration: 30 day, Stop date: 11/22/19 13:46:00 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, 0 Glucagon 2018-11 No 1 mg, Memoria 12-23 Route: IM, l 19:47: Drug form: González 00 PDR/INJ, PRN, Dosing Weight 64.7, kg, PRN Blood Glucose Results, Start date: 10/23/19 13:47:00 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, Duration: 30 day, Stop date: 11/22/19 13:46:00 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, 0 Insulin 2018-11 No Notes: Memoria regular [...] 12-23 25 mL, l (D50W) 19:47: Route: Hegins 00 IVP, Drug Form: INJ, Dosing Weight 64.7, kg, PRN, PRN Blood Glucose Results, Start date: 10/23/19 13:47:00 LITERACY EDUCATION PROFESSOR, Duration: 30 day, Stop date: 11/22/19 13:46:00 LITERACY EDUCATION PROFESSOR, 0 Glucagon 2018-11 No 1 mg, Memoria 12-23 Route: IM, l 19:47: Drug form: González 00 PDR/INJ, PRN, Dosing Weight 64.7, kg, PRN Blood Glucose Results, Start date: 10/23/19 13:47:00 LITERACY EDUCATION PROFESSOR, Duration: 30 day, Stop date: 11/22/19 13:46:00 LITERACY EDUCATION PROFESSOR, 0 Insulin 2018-11 No Notes: Memoria regular 12-23 (Same as: l 19:47: Humulin R) Hegins 00 Roll in palms of hands gently; Do not shake vigorously . WASTE: F/P - Black; E - Municipal Trash Bin Stable for 31 days at room temperatur e Expires in days from ____Date Dextrose 2018-11 No 12.5 gm, Memor ia 50% Syringe 12-23 25 mL, l (D50W) 19:47: Route: Hegins 00 IVP, Drug Form: INJ, Dosing Weight 64.7, kg, PRN, PRN Blood Glucose Results, Start date: 10/23/19 13:47:00 LITERACY EDUCATION PROFESSOR, Duration: 30 day, Stop date: 11/22/19 13:46:00 LITERACY EDUCATION PROFESSOR, 0 Glucagon 2018-11 No 1 mg, Memoria 12-23 Route: IM, l 19:47: Drug form: Hegins 00 PDR/INJ, PRN, Dosing Weight 64.7, kg, PRN Blood Glucose Results, Start date: 10/23/19 13:47:00 LITERACY EDUCATION PROFESSOR, Duration: 30 day, Stop date: 11/22/19 13:46:00 LITERACY EDUCATION PROFESSOR, 0 Insulin 2018-11 No Notes: Memoria regular 12-23 (Same as: l 19:47: Humulin R) Hegins 00 Roll in palms of hands gently; Do not shake vigorously . WASTE: F/P - Black; E - Municipal Trash Bin Stable for 31 days at room temperatur e Expires in days from ____Date Dextrose 2018-11 No 12.5 gm, Memor ia 50% Syringe 12-23 25 mL, l (D50W) 19:47: Route: Hegins 00 IVP, Drug Form: INJ, Dosing Weight 64.7, kg, PRN, PRN Blood Glucose Results, Start date: 10/23/19 13:47:00 LITERACY EDUCATION PROFESSOR, Duration: 30 day, Stop date: 11/22/19 13:46:00 LITERACY EDUCATION PROFESSOR, 0 Glucagon 2018-11 No 1 mg, Memoria 12-23 Route: IM, l 19:47: Drug form: Hegins 00 PDR/INJ, PRN, Dosing Weight 64.7, kg, PRN Blood Glucose Results, Start date: 10/23/19 13:47:00 LITERACY EDUCATION PROFESSOR, Duration: 30 day, Stop date: 11/22/19 13:46:00 LITERACY EDUCATION PROFESSOR, 0 Insulin 2018-11 No Notes: Memoria regular 12-23 (Same as: l 19:47: Humulin R) Hegins Roll in palms of hands gently; Do not shake vigorously . WASTE: F/P - Black; E - Municipal Trash Bin Stable for 31 days at room temperatur e Expires in days from ____Date Dextrose 2018-11 No 12.5 gm, Memor ia 50% Syringe 12-23 25 mL, l (D50W) 19:47: Route: Hegins 00 IVP, Drug Form: INJ, Dosing Weight 64.7, kg, PRN, PRN Blood Glucose Results, Start date: 10/23/19 13:47:00 LITERACY EDUCATION PROFESSOR, Duration: 30 day, Stop date: 11/22/19 13:46:00 LITERACY EDUCATION PROFESSOR, 0 Glucagon 2018-11 No 1 mg, Memoria 12-23 Route: IM, l 19:47: Drug form: Hegins 00 PDR/INJ, PRN, Dosing Weight 64.7, kg, PRN Blood Glucose Results, Start date: 10/23/19 13:47:00 LITERACY EDUCATION PROFESSOR, Duration: 30 day, Stop date: 11/22/19 13:46:00 LITERACY EDUCATION PROFESSOR, 0 Insulin 2018-11 No Notes: Memoria regular 12-23 (Same as: l 19:47: Humulin R) Hegins 00 Roll in palms of hands gently; [...] Blood Glucose Results, Start date: 10/23/19 13:47:00 LITERACY EDUCATION PROFESSOR, Duration: 30 day, Stop date: 11/22/19 13:46:00 LITERACY EDUCATION PROFESSOR, 0 Glucagon 2018-11 No 1 mg, Memoria 12-23 Route: IM, l 19:47: Drug form: González 00 PDR/INJ, PRN, Dosing Weight 64.7, kg, PRN Blood Glucose Results, Start date: 10/23/19 13:47:00 LITERACY EDUCATION PROFESSOR, Duration: 30 day, Stop date: 11/22/19 13:46:00 LITERACY EDUCATION PROFESSOR, 0 Insulin 2018-11 No Notes: Memoria regular [...] Blood Glucose Results, Start date: 10/23/19 13:47:00 LITERACY EDUCATION PROFESSOR, Duration: 30 day, Stop date: 11/22/19 13:46:00 LITERACY EDUCATION PROFESSOR, 0 Glucagon 2018-11 No 1 mg, Memoria 12-23 Route: IM, l 19:47: Drug form: González 00 PDR/INJ, PRN, Dosing Weight 64.7, kg, PRN Blood Glucose Results, Start date: 10/23/19 13:47:00 LITERACY EDUCATION PROFESSOR, Duration: 30 day, Stop date: 11/22/19 13:46:00 LITERACY EDUCATION PROFESSOR, 0 Insulin 2018-11 No Notes: Memoria regular [...] Blood Glucose Results, Start date: 10/23/19 13:47:00 LITERACY EDUCATION PROFESSOR, Duration: 30 day, Stop date: 11/22/19 13:46:00 LITERACY EDUCATION PROFESSOR, 0 Glucagon 2018-11 No 1 mg, Memoria 12-23 Route: IM, l 19:47: Drug form: Hegins 00 PDR/INJ, PRN, Dosing Weight 64.7, kg, PRN Blood Glucose Results, Start date: 10/23/19 13:47:00 LITERACY EDUCATION PROFESSOR, Duration: 30 day, Stop date: 11/22/19 13:46:00 LITERACY EDUCATION PROFESSOR, 0 Insulin 2018-11 No Notes: Memoria regular [...] 12-23 25 mL, l (D50W) 19:47: Route: Hegins 00 IVP, Drug Form: INJ, Dosing Weight 64.7, kg, PRN, PRN Blood Glucose Results, Start date: 10/23/19 13:47:00 LITERACY EDUCATION PROFESSOR, Duration: 30 day, Stop date: 11/22/19 13:46:00 LITERACY EDUCATION PROFESSOR, 0 Glucagon 2018-11 No 1 mg, Memoria 12-23 Route: IM, l 19:47: Drug form: Hegins 00 PDR/INJ, PRN, Dosing Weight 64.7, kg, PRN Blood Glucose Results, Start date: 10/23/19 13:47:00 LITERACY EDUCATION PROFESSOR, Duration: 30 day, Stop date: 11/22/19 13:46:00 LITERACY EDUCATION PROFESSOR, 0 Insulin 2018-11 No Notes: Memoria regular [...] Blood Glucose Results, Start date: 10/23/19 13:47:00 LITERACY EDUCATION PROFESSOR, Duration: 30 day, Stop date: 11/22/19 13:46:00 LITERACY EDUCATION PROFESSOR, 0 Glucagon 2018-11 No 1 mg, Memoria 12-23 Route: IM, l 19:47: Drug form: González 00 PDR/INJ, PRN, Dosing Weight 64.7, kg, PRN Blood Glucose Results, Start date: 10/23/19 13:47:00 LITERACY EDUCATION PROFESSOR, Duration: 30 day, Stop date: 11/22/19 13:46:00 LITERACY EDUCATION PROFESSOR, 0 Insulin 2018-11 No Notes: Memoria regular [...] 12-23 25 mL, l (D50W) 19:47: Route: Hegins 00 IVP, Drug Form: INJ, Dosing Weight 64.7, kg, PRN, PRN Blood Glucose Results, Start date: 10/23/19 13:47:00 LITERACY EDUCATION PROFESSOR, Duration: 30 day, Stop date: 11/22/19 13:46:00 LITERACY EDUCATION PROFESSOR, 0 Glucagon 2018-11 No 1 mg, Memoria 12-23 Route: IM, l 19:47: Drug form: Hegins 00 PDR/INJ, PRN, Dosing Weight 64.7, kg, PRN Blood Glucose Results, Start date: 10/23/19 13:47:00 LITERACY EDUCATION PROFESSOR, Duration: 30 day, Stop date: 11/22/19 13:46:00 LITERACY EDUCATION PROFESSOR, 0 Insulin 2018-11 No Notes: Memoria regular 12-23 (Same as: l 19:47: Humulin R) Hegins 00 Roll in palms of hands gently; Do not shake vigorously . WASTE: F/P - Black; E - Municipal Trash Bin Stable for 31 days at room temperatur e Expires in days from ____Date Dextrose 2018-11 No 12.5 gm, Memor ia 50% Syringe 12-23 25 mL, l (D50W) 19:47: Route: Hegins 00 IVP, Drug Form: INJ, Dosing Weight 64.7, kg, PRN, PRN Blood Glucose Results, Start date: 10/23/19 13:47:00 LITERACY EDUCATION PROFESSOR, Duration: 30 day, Stop date: 11/22/19 13:46:00 LITERACY EDUCATION PROFESSOR, 0 Glucagon 2018-11 No 1 mg, Memoria 12-23 Route: IM, l 19:47: Drug form: González 00 PDR/INJ, PRN, Dosing Weight 64.7, kg, PRN Blood Glucose Results, Start date: 10/23/19 13:47:00 LITERACY EDUCATION PROFESSOR, Duration: 30 day, Stop date: 11/22/19 13:46:00 LITERACY EDUCATION PROFESSOR, 0 Insulin 2018-11 No Notes: Memoria regular [...] Blood Glucose Results, Start date: 10/23/19 13:47:00 LITERACY EDUCATION PROFESSOR, Duration: 30 day, Stop date: 11/22/19 13:46:00 LITERACY EDUCATION PROFESSOR, 0 Glucagon 2018-11 No 1 mg, Memoria 12-23 Route: IM, l 19:47: Drug form: González 00 PDR/INJ, PRN, Dosing Weight 64.7, kg, PRN Blood Glucose Results, Start date: 10/23/19 13:47:00 LITERACY EDUCATION PROFESSOR, Duration: 30 day, Stop date: 11/22/19 13:46:00 LITERACY EDUCATION PROFESSOR, 0 Insulin 2018-11 No Notes: Memoria regular [...] 12-23 25 mL, l (D50W) 19:47: Route: Hegins 00 IVP, Drug Form: INJ, Dosing Weight 64.7, kg, PRN, PRN Blood Glucose Results, Start date: 10/23/19 13:47:00 LITERACY EDUCATION PROFESSOR, Duration: 30 day, Stop date: 11/22/19 13:46:00 LITERACY EDUCATION PROFESSOR, 0 Glucagon 2018-11 No 1 mg, Memoria 12-23 Route: IM, l 19:47: Drug form: Hegins 00 PDR/INJ, PRN, Dosing Weight 64.7, kg, PRN Blood Glucose Results, Start date: 10/23/19 13:47:00 LITERACY EDUCATION PROFESSOR, Duration: 30 day, Stop date: 11/22/19 13:46:00 LITERACY EDUCATION PROFESSOR, 0 Insulin 2018-11 No Notes: Memoria regular 12-23 (Same as: l 19:47: Humulin R) Roll in palms of hands gently; Do not shake vigorously . WASTE: F/P - Black; E - Municipal Trash Bin Stable for 31 days at room temperatur e Expires in days from ____Date sennosides, 2018-11 No Notes: Maxwell janell LONGTERM 12-23 (Same as: l 15:24: Senokot) sennoside, 2018-11 No Notes: Maxwell janell LONGTERM 12-23 (Same as: l 15:24: Senokot) noside, 2018-11 No Notes: Maxwell janell LONGTERM 12-23 (Same as: l 15:24: Senokot) sennosides, 2018-11 No Notes: Maxwell janell LONGTERM -29 (Same as: l 15:24: Senokot) Hegins 00 sennosides, 2018-11 No Notes: Maxwell janell LONGTERM -29 (Same as: l 15:24: Senokot) sennosides, 2018-11 No Notes: Maxwell janell LONGTERM -29 (Same as: l 15:24: Senokot) sennosides, 2018-11 No Notes: Maxwell janell LONGTERM -29 (Same as: l 15:24: Senokot) sennosides, 2018-11 No Notes: Maxwell janell LONGTERM -29 (Same as: l 15:24: Senokot) Hegins 00 sennosides, 2018-11 No Notes: Maxwell janell LONGTERM 1-29 (Same as: l 15:24: Senokot) Hegins 00 sennosides, 2018-11 No Notes: Maxwell janell LONGTERM 1-29 (Same as: l 15:24: Senokot) González 00 sennosides, 2018-11 No Notes: Maxwell janell LONGTERM 1-29 (Same as: l 15:24: Senokot) González 00 sennosides, 2018-11 No Notes: Maxwell janell LONGTERM 1-29 (Same as: l 15:24: Senokot) Hegins 00 sennosides, 2018-11 No Notes: Maxwell janell LONGTERM 1-29 (Same as: l 15:24: Senokot) Hegins sennosides, 2018-11 No Notes: Maxwell janell LONGTERM 1-29 (Same as: l 15:24: Senokot) González sennosides, 2018-11 No Notes: Maxwell janell LONGTERM 1-29 (Same as: l 15:24: Senokot) González sennosides, 2018-11 No Notes: Maxwell janell LONGTERM 1-29 (Same as: l 15:24: Senokot) Hegins 00 sennosides, 2018-11 No Notes: Maxwell janell LONGTERM 1-29 (Same as: l 15:24: Senokot) Hegins sennosides, 2018-11 No Notes: Maxwell janell LONGTERM 1-29 (Same as: l 15:24: Senokot) González 00 sennosides, 2018-11 No Notes: Maxwell janell LONGTERM 1-29 (Same as: l 15:24: Senokot) González 00 sennosides, 2018-11 No Notes: Maxwell janell LONGTERM 1-29 (Same as: l 15:24: Senokot) Hegins 00 sennosides, 2018-11 No Notes: Maxwell janell LONGTERM 1-29 (Same as: l 15:24: Senokot) González 00 Tylenol 2018-11 No Notes: Do Memor ia - not exceed l 15:21: 4 gm/day. Hegins 00 (Same as: Tylenol) Tylenol 2018-11 No Notes: Do Memor ia -29 not exceed l 15:21: 4 gm/day. (Same as: Tylenol) Tylenol 2018-11 No Notes: Do Memor ia 1-29 not exceed l 15:21: 4 gm/day. (Same as: Tylenol) Tylenol 2018-11 No Notes: Do Memor ia 1-29 not exceed l 15:21: 4 gm/day. (Same as: Tylenol) Tylenol 2018-11 No Notes: Do Memor ia 1-29 not exceed l 15:21: 4 gm/day. (Same as: Tylenol) Tylenol 2018-11 No Notes: Do Memor ia 1-29 not exceed l 15:21: 4 gm/day. (Same as: Tylenol) Tylenol 2018-11 No Notes: Do Memor ia 1-29 not exceed l 15:21: 4 gm/day. (Same as: Tylenol) Tylenol 2018-11 No Notes: Do Memor ia 1-29 not exceed l 15:21: 4 gm/day. (Same as: Tylenol) Tylenol 2018-11 No Notes: Do Memor ia 1-29 not exceed l 15:21: 4 gm/day. (Same as: Tylenol) Tylenol 2018-11 No Notes: Do Memor ia 1-29 not exceed l 15:21: 4 gm/day. (Same as: Tylenol) Tylenol 2018-11 No Notes: Do Memor ia 1-29 not exceed l 15:21: 4 gm/day. (Same as: Tylenol) Tylenol 2018-11 No Notes: Do Memor ia 1-29 not exceed l 15:21: 4 gm/day. (Same as: Tylenol) Tylenol 2018-11 No Notes: Do Memor ia 1-29 not exceed l 15:21: 4 gm/day. (Same as: Tylenol) Tylenol 2018-11 No Notes: Do Memor ia 1-29 not exceed l 15:21: 4 gm/day. (Same as: Tylenol) Tylenol 2018-11 No Notes: Do Memor ia 1-29 not exceed l 15:21: 4 gm/day. (Same as: Tylenol) Tylenol 2018-11 No Notes: Do Memor ia 1-29 not exceed l 15:21: 4 gm/day. Hegins 00 (Same as: Tylenol) Tylenol 2018-11 No Notes: Do Memor ia 1-29 not exceed l 15:21: 4 gm/day. Hegins 00 (Same as: Tylenol) Tylenol 2018-11 No Notes: Do Memor ia 1-29 not exceed l 15:21: 4 gm/day. González 00 (Same as: Tylenol) Tylenol 2018-11 No Notes: Do Memor ia 1-29 not exceed l 15:21: 4 gm/day. Hegins 00 (Same as: Tylenol) Tylenol 2018-11 No Notes: Do Memor ia 1-29 not exceed l 15:21: 4 gm/day. Hegins 00 (Same as: Tylenol) Tylenol 2018-11 No Notes: Do Memor ia 1-29 not exceed l 15:21: 4 gm/day. (Same as: Tylenol) pantoprazol 2018-11 No Notes: [...] 0.9% 1-29 (Same as: l 15:00: BD Hegins 00 Posiflush) pantoprazol 2018-11 No Notes: For Memoria e 1-29 IV push l 15:00: reconstitu González 00 te with 10 ml 0.9% sodium chloride and push over 2 minutes. (Same as: Protonix) Saline 2018-11 No Notes: Memoria Flush 0.9% 1-29 (Same as: l 15:00: BD Hegins 00 Posiflush) pantoprazol 2018-11 No Notes: For Memoria e 1-29 IV push l 15:00: reconstitu González 00 te with 10 ml 0.9% sodium chloride and push over 2 minutes. (Same as: Protonix) Saline 2018-11 No Notes: Memoria Flush 0.9% 1-29 (Same as: l 15:00: BD González 00 Posiflush) pantoprazol 2018-11 No Notes: For Memoria e 1-29 IV push l 15:00: reconstitu Hegins 00 te with 10 ml 0.9% sodium chloride and push over 2 minutes. (Same as: Protonix) Saline 2018-11 No Notes: Memoria Flush 0.9% 1-29 (Same as: l 15:00: BD Hegins 00 Posiflush) pantoprazol 2018-11 No Notes: For Memoria e 1-29 IV push l 15:00: reconstitu González 00 te with 10 ml 0.9% sodium chloride and push over 2 minutes. (Same as: Protonix) Saline 2018-11 No Notes: Memoria Flush 0.9% 1-29 (Same as: l 15:00: BD González 00 Posiflush) pantoprazol 2018-11 No Notes: For Memoria e 1-29 IV push l 15:00: reconstitu Hegins 00 te with 10 ml 0.9% sodium chloride and push over 2 minutes. (Same as: Protonix) Saline 2018-11 No Notes: Memoria Flush 0.9% 1-29 (Same as: l 15:00: BD Hegins 00 Posiflush) pantoprazol 2018-11 No Notes: For [...] 0.9% 1-29 (Same as: l 15:00: BD Hegins 00 Posiflush) pantoprazol 2018-11 No Notes: For [...] 0.9% 1-29 (Same as: l 15:00: BD Hegins 00 Posiflush) pantoprazol 2018-11 No Notes: For Memoria e 1-29 IV push l 15:00: reconstitu Hegins 00 te with 10 ml 0.9% sodium chloride and push over 2 minutes. (Same as: Protonix) Saline 2018-11 No Notes: Memoria Flush 0.9% 1-29 (Same as: l 15:00: BD Hegins 00 Posiflush) pantoprazol 2018-11 No Notes: For Memoria e 1-29 IV push l 15:00: reconstitu Hegins 00 te with 10 ml 0.9% sodium chloride and push over 2 minutes. (Same as: Protonix) Saline 2018-11 No Notes: Memoria Flush 0.9% 1-29 (Same as: l 15:00: BD Hegins 00 Posiflush) pantoprazol 2018-11 No Notes: For [...] e 1-29 IV push l 15:00: reconstitu Hegins 00 te with 10 ml 0.9% sodium chloride and push over 2 minutes. (Same as: Protonix) Saline 2018-11 No Notes: Memoria Flush 0.9% 1-29 (Same as: l 15:00: BD González 00 Posiflush) pantoprazol 2018-11 No Notes: For Memoria e 1-29 IV push l 15:00: reconstitu Hegins 00 te with 10 ml 0.9% sodium chloride and push over 2 minutes. (Same as: Protonix) Saline 2018-11 No Notes: Memoria Flush 0.9% 1-29 (Same as: l 15:00: BD Hegins 00 Posiflush) pantoprazol 2018-11 No Notes: For Memoria e 1-29 IV push l 15:00: reconstitu Hegins 00 te with 10 ml 0.9% sodium [...] 0.9% 1-29 (Same as: l 15:00: BD Hegins 00 Posiflush) pantoprazol 2018-11 No Notes: For Memoria e 1-29 IV push l 15:00: reconstitu González 00 te with 10 ml 0.9% sodium chloride and push over 2 minutes. (Same as: Protonix) Saline 2018-11 No Notes: Memoria Flush 0.9% 1-29 (Same as: l 15:00: BD Hegins 00 Posiflush) Labetalol 2018-11 No Notes: Memori a 1-29 (Same as: l 14:14: Normodyne, [place] 00 Trandate) Push over 2 minutes Give [...] janell 1-29 (Same as: l 14:14: Apresoline Hegins 00 ) Push over 5 minutes Labetalol 2018-11 No Notes: Memori a 1-29 (Same as: l 14:14: Normodyne, Hegins 00 Trandate) Push over 2 minutes Give [...] a 1-29 (Same as: l 14:14: Normodyne, Hegins 00 Trandate) Push over 2 minutes Give bolus over 2-3 minutes. Hydralazine 2018-11 No Notes: Maxwell janell 1-29 (Same as: l 14:14: Apresoline González 00 ) Push over 5 minutes Labetalol 2018-11 No Notes: Memori a 1-29 (Same as: l 14:14: Normodyne, Hegins 00 Trandate) Push over 2 minutes Give bolus over 2-3 minutes. Hydralazine 2018-11 No Notes: Maxwell janell 1-29 (Same as: l 14:14: Apresoline Hegins 00 ) Push over 5 minutes Labetalol 2018-11 No Notes: Memori a 1-29 (Same as: l 14:14: Normodyne, Hegins 00 Trandate) Push over 2 minutes Give bolus over 2-3 minutes. Hydralazine 2018-11 No Notes: Maxwell janell 1-29 (Same as: l 14:14: Apresoline Hegins 00 ) Push over 5 minutes Labetalol 2018-11 No Notes: Memori a 1-29 (Same as: l 14:14: Normodyne, Hegins 00 Trandate) Push over 2 minutes Give bolus over 2-3 minutes. Hydralazine 2018-11 No Notes: Maxwell janell 1-29 (Same as: l 14:14: Apresoline Hegins 00 ) Push over 5 minutes Labetalol 2018-11 No Notes: Memori a 1-29 (Same as: l 14:14: Normodyne, Hegins 00 Trandate) Push over 2 minutes Give [...] a 1-29 (Same as: l 14:14: Normodyne, Hegins 00 Trandate) Push over 2 minutes Give [...] janell 1-29 (Same as: l 14:14: Apresoline Hegins 00 ) Push over 5 minutes Labetalol 2018-11 No Notes: Memori a 1-29 (Same as: l 14:14: Normodyne, Hegins 00 Trandate) Push over 2 minutes Give bolus over 2-3 minutes. Hydralazine 2018-11 No Notes: Maxwell janell 1-29 (Same as: l 14:14: Apresoline Hegins 00 ) Push over 5 minutes Labetalol 2018-11 No Notes: Memori a 1-29 (Same as: l 14:14: Normodyne, González 00 Trandate) Push over 2 minutes Give bolus over 2-3 minutes. Hydralazine 2018-11 No Notes: Maxwell janell 1-29 (Same as: l 14:14: Apresoline González 00 ) Push over 5 minutes Labetalol 2018-11 No Notes: Memori a 1-29 (Same as: l 14:14: Normodyne, Hegins 00 Trandate) Push over 2 minutes Give bolus over 2-3 minutes. Hydralazine 2018-11 No Notes: Maxwell janell 1-29 (Same as: l 14:14: Apresoline Hegins 00 ) Push over 5 minutes Labetalol 2018-11 No Notes: Memori a 1-29 (Same as: l 14:14: Normodyne, González 00 Trandate) Push over 2 minutes Give bolus over 2-3 minutes. Hydralazine 2018-11 No Notes: Maxwell janell 1-29 (Same as: l 14:14: Apresoline Hegins 00 ) Push over 5 minutes Labetalol 2018-11 No Notes: Memori a 1-29 (Same as: l 14:14: Normodyne, Hegins 00 Trandate) Push over 2 minutes Give bolus over 2-3 minutes. Hydralazine 2018-11 No Notes: Maxwell janell 1-29 (Same as: l 14:14: Apresoline Hegins 00 ) Push over 5 minutes Labetalol 2018-11 No Notes: Memori a 1-29 (Same as: l 14:14: Normodyne, González 00 Trandate) Push over 2 minutes Give bolus over 2-3 minutes. Hydralazine 2018-11 No Notes: Maxwell janell 1-29 (Same as: l 14:14: Apresoline González 00 ) Push over 5 minutes Labetalol 2018-11 No Notes: Memori a 1-29 (Same as: l 14:14: Normodyne, Hegins 00 Trandate) Push over 2 minutes Give [...] González 00 ) Push over 5 minutes Acetaminoph 2018-11 No Notes: Max Memoria en 1-29 acetaminop l 11:02: hen = 4000 González 00 mg/day (4 gm/day). (Same as: Tylenol) Acetaminoph 2018-11 No Notes: Max Memoria en 1-29 acetaminop l 11:02: hen = 4000 Hegins 00 mg/day (4 gm/day). (Same as: Tylenol) [...] 12-23 acetaminop l 11:02: hen = 4000 Hegins 00 mg/day (4 gm/day). (Same as: Tylenol) Acetaminoph 2018-11 No Notes: Max Memoria en 29 acetaminop l 11:02: hen = 4000 Hegins 00 mg/day (4 gm/day). (Same as: Tylenol) Acetaminoph 2018-11 No Notes: Max Memoria en 29 acetaminop l 11:02: hen = 4000 González 00 mg/day (4 gm/day). (Same as: Tylenol) Acetaminoph 2018-11 No Notes: Max Memoria en 29 acetaminop l 11:02: hen = 4000 González 00 mg/day (4 gm/day). (Same as: Tylenol) Acetaminoph 2018-11 No Notes: Max Memoria en 12-23 acetaminop l 11:02: hen = 4000 Hegins 00 mg/day (4 gm/day). (Same as: Tylenol) Acetaminoph 2018-11 No Notes: Max Memoria en 12-23 acetaminop l 11:02: hen = 4000 Hegins 00 mg/day (4 gm/day). (Same as: Tylenol) Acetaminoph 2018-11 No Notes: Max Memoria en 12-23 acetaminop l 11:02: hen = 4000 Hegins 00 mg/day (4 gm/day). (Same as: Tylenol) Acetaminoph 2018-11 No Notes: Max Memoria en 12-23 acetaminop l 11:02: hen = 4000 González 00 mg/day (4 gm/day). (Same as: Tylenol) Acetaminoph 2018-11 No Notes: Max Memoria en -29 acetaminop l 11:02: hen = 4000 Hegins 00 mg/day (4 gm/day). (Same as: Tylenol) Acetaminoph 2018-11 No Notes: Max Memoria en -29 acetaminop l 11:02: hen = 4000 González 00 mg/day (4 gm/day). (Same as: Tylenol) Acetaminoph 2018-11 No Notes: Max Memoria en -29 acetaminop l 11:02: hen = 4000 Hegins 00 mg/day (4 gm/day). (Same as: Tylenol) Acetaminoph 2018-11 No Notes: Max Memoria en - acetaminop l 11:02: hen = 4000 Hegins 00 mg/day (4 gm/day). (Same as: Tylenol) [...] 12-23 acetaminop l 11:02: hen = 4000 Hegins 00 mg/day (4 gm/day). (Same as: Tylenol) Acetaminoph 2018-11 No Notes: Max Memoria en 12-23 acetaminop l 11:02: hen = 4000 Hegins 00 mg/day (4 gm/day). (Same as: Tylenol) [...] Blood Glucose Results, Start date: 10/23/19 4:20:00 LITERACY EDUCATION PROFESSOR, Duration: 30 day, Stop date: 11/22/19 4:19:00 LITERACY EDUCATION PROFESSOR, 0 Insulin 2018-11 No Notes: Memoria regular 100 -29 (Same as: l unit + 10:20: Humulin [...] Blood Glucose Results, Start date: 10/23/19 4:20:00 LITERACY EDUCATION PROFESSOR, Duration: 30 day, Stop date: 11/22/19 4:19:00 LITERACY EDUCATION PROFESSOR, 0 Insulin 2018-11 No Notes: Memoria regular [...] Blood Glucose Results, Start date: 10/23/19 4:20:00 LITERACY EDUCATION PROFESSOR, Duration: 30 day, Stop date: 11/22/19 4:19:00 LITERACY EDUCATION PROFESSOR, 0 Insulin 2018-11 No Notes: Memoria regular [...] Blood Glucose Results, Start date: 10/23/19 4:20:00 LITERACY EDUCATION PROFESSOR, Duration: 30 day, Stop date: 11/22/19 4:19:00 LITERACY EDUCATION PROFESSOR, 0 Insulin 2018-11 No Notes: Memoria regular [...] Blood Glucose Results, Start date: 10/23/19 4:20:00 LITERACY EDUCATION PROFESSOR, Duration: 30 day, Stop date: 11/22/19 4:19:00 LITERACY EDUCATION PROFESSOR, 0 Insulin 2018-11 No Notes: Memoria regular [...] Blood Glucose Results, Start date: 10/23/19 4:20:00 LITERACY EDUCATION PROFESSOR, Duration: 30 day, Stop date: 11/22/19 4:19:00 LITERACY EDUCATION PROFESSOR, 0 Insulin 2018-11 No Notes: Memoria regular [...] Blood Glucose Results, Start date: 10/23/19 4:20:00 LITERACY EDUCATION PROFESSOR, Duration: 30 day, Stop date: 11/22/19 4:19:00 LITERACY EDUCATION PROFESSOR, 0 Insulin 2018-11 No Notes: Memoria regular [...] Blood Glucose Results, Start date: 10/23/19 4:20:00 LITERACY EDUCATION PROFESSOR, Duration: 30 day, Stop date: 11/22/19 4:19:00 LITERACY EDUCATION PROFESSOR, 0 Insulin 2018-11 No Notes: Memoria regular [...] Blood Glucose Results, Start date: 10/23/19 4:20:00 LITERACY EDUCATION PROFESSOR, Duration: 30 day, Stop date: 11/22/19 4:19:00 LITERACY EDUCATION PROFESSOR, 0 Insulin 2018-11 No Notes: Memoria regular [...] Blood Glucose Results, Start date: 10/23/19 4:20:00 LITERACY EDUCATION PROFESSOR, Duration: 30 day, Stop date: 11/22/19 4:19:00 LITERACY EDUCATION PROFESSOR, 0 Insulin 2018-11 No Notes: Memoria regular [...] Blood Glucose Results, Start date: 10/23/19 4:20:00 LITERACY EDUCATION PROFESSOR, Duration: 30 day, Stop date: 11/22/19 4:19:00 LITERACY EDUCATION PROFESSOR, 0 Insulin 2018-11 No Notes: Memoria regular [...] Blood Glucose Results, Start date: 10/23/19 4:20:00 LITERACY EDUCATION PROFESSOR, Duration: 30 day, Stop date: 11/22/19 4:19:00 LITERACY EDUCATION PROFESSOR, 0 Insulin 2018-11 No Notes: Memoria regular [...] Blood Glucose Results, Start date: 10/23/19 4:20:00 LITERACY EDUCATION PROFESSOR, Duration: 30 day, Stop date: 11/22/19 4:19:00 LITERACY EDUCATION PROFESSOR, 0 Insulin 2018-11 No Notes: Memoria regular [...] Blood Glucose Results, Start date: 10/23/19 4:20:00 LITERACY EDUCATION PROFESSOR, Duration: 30 day, Stop date: 11/22/19 4:19:00 LITERACY EDUCATION PROFESSOR, 0 Insulin 2018-11 No Notes: Memoria regular [...] Blood Glucose Results, Start date: 10/23/19 4:20:00 LITERACY EDUCATION PROFESSOR, Duration: 30 day, Stop date: 11/22/19 4:19:00 LITERACY EDUCATION PROFESSOR, 0 Insulin 2018-11 No Notes: Memoria regular [...] Blood Glucose Results, Start date: 10/23/19 4:20:00 LITERACY EDUCATION PROFESSOR, Duration: 30 day, Stop date: 11/22/19 4:19:00 LITERACY EDUCATION PROFESSOR, 0 Insulin 2018-11 No Notes: Memoria regular [...] Blood Glucose Results, Start date: 10/23/19 4:20:00 LITERACY EDUCATION PROFESSOR, Duration: 30 day, Stop date: 11/22/19 4:19:00 LITERACY EDUCATION PROFESSOR, 0 Insulin 2018-11 No Notes: Memoria regular [...] Blood Glucose Results, Start date: 10/23/19 4:20:00 LITERACY EDUCATION PROFESSOR, Duration: 30 day, Stop date: 11/22/19 4:19:00 LITERACY EDUCATION PROFESSOR, 0 Insulin 2018-11 No Notes: Memoria regular [...] Blood Glucose Results, Start date: 10/23/19 4:20:00 LITERACY EDUCATION PROFESSOR, Duration: 30 day, Stop date: 11/22/19 4:19:00 LITERACY EDUCATION PROFESSOR, 0 Insulin 2018-11 No Notes: Memoria regular [...] Blood Glucose Results, Start date: 10/23/19 4:20:00 LITERACY EDUCATION PROFESSOR, Duration: 30 day, Stop date: 11/22/19 4:19:00 LITERACY EDUCATION PROFESSOR, 0 Insulin 2018-11 No Notes: Memoria regular [...] Blood Glucose Results, Start date: 10/23/19 4:20:00 LITERACY EDUCATION PROFESSOR, Duration: 30 day, Stop date: 11/22/19 4:19:00 LITERACY EDUCATION PROFESSOR, 0 Labetalol 2018-11 No Notes: Memori a 1-29 (Same as: l 09:50: Normodyne, González 00 Trandate) Push over 2 minutes Give bolus over 2-3 minutes. Labetalol 2018-11 No Notes: Memori a 1-29 (Same as: l 09:50: Normodyne, Hegins 00 Trandate) Push over 2 minutes Give bolus over 2-3 minutes. Labetalol 2018-11 No Notes: Memori a 1-29 (Same as: l 09:50: Normodyne, Hegins 00 Trandate) Push over 2 minutes Give [...] a 1-29 (Same as: l 09:50: Normodyne, Hegins 00 Trandate) Push over 2 minutes Give bolus over 2-3 minutes. Labetalol 2018-11 No Notes: Memori a 1-29 (Same as: l 09:50: Normodyne, González 00 Trandate) Push over 2 minutes Give bolus over 2-3 minutes. Labetalol 2018-11 No Notes: Memori a 1-29 (Same as: l 09:50: Normodyne, Hegins 00 Trandate) Push over 2 minutes Give bolus over 2-3 minutes. Labetalol 2018-11 No Notes: Memori a 1-29 (Same as: l 09:50: Normodyne, González 00 Trandate) Push over 2 minutes Give bolus over 2-3 minutes. Labetalol 2018-11 No Notes: Memori a 1-29 (Same as: l 09:50: Normodyne, Hegins 00 Trandate) Push over 2 minutes Give bolus over 2-3 minutes. Labetalol 2018-11 No Notes: Memori a 1-29 (Same as: l 09:50: Normodyne, Hegins 00 Trandate) Push over 2 minutes Give bolus over 2-3 minutes. Labetalol 2018-11 No Notes: Memori a 1-29 (Same as: l 09:50: Normodyne, Hegins 00 Trandate) Push over 2 minutes Give bolus over 2-3 minutes. Labetalol 2018-11 No Notes: Memori a 1-29 (Same as: l 09:50: Normodyne, Hegins 00 Trandate) Push over 2 minutes Give [...] minutes. Labetalol 2018-11 No Notes: Memori a 12-23 (Same as: l 09:50: Normodyne, González 00 Trandate) Push over 2 minutes Give bolus over 2-3 minutes. Labetalol 2018-11 No Notes: Memori a 12-23 (Same as: l 09:50: Normodyne, González 00 Trandate) Push over 2 minutes Give bolus over 2-3 minutes. Labetalol 2018-11 No Notes: Memori a 12-23 [...] than 250 mg/dL., Start date: 10/23/19 2:44:00 LITERACY EDUCATION PROFESSOR, Duration:. .. D5W S 2018-11 No 1,000 mL, Mem oria 1,000 mL 12-23 Rate: 250 l 08:44: ml/hr, Hegins 00 Infuse over: 4 hr, Route: IV, Dosing Weight 64.7 kg, Total Volume: 1,000, Start date: 10/23/19 2:44:00 LITERACY EDUCATION PROFESSOR, Duration: 30 day, Stop date: 11/22/19 2:43:00 LITERACY EDUCATION PROFESSOR, 1.73, m2, 0 Insulin 2018-11 No Notes: [...] 12-23 25 mL, l (D50W) 08:44: Route: Hegins 00 IVP, Drug Form: INJ, Dosing Weight 64.7, kg, PRN, PRN Blood Glucose Results, Start date: 10/23/19 2:44:00 LITERACY EDUCATION PROFESSOR, Duration: 30 day, Stop date: 11/22/19 2:43:00 LITERACY EDUCATION PROFESSOR, 0 Glucagon 2018-11 No 1 mg, Memoria 12-23 Route: IM, l 08:44: Drug form: Hegins 00 PDR/INJ, PRN, Dosing Weight 64.7, kg, PRN Blood Glucose Results, Start date: 10/23/19 2:44:00 LITERACY EDUCATION PROFESSOR, Duration: 30 day, Stop date: 11/22/19 2:43:00 LITERACY EDUCATION PROFESSOR, 0 Potassium 2018-11 No Notes: Memori a Chloride - (Same as: l 08:44: KCL) González 00 Infuse no faster than 10 mEq/hr if given peripheral ly. Magnesium 2018-11 No Notes: Memori a Sulfate 12-23 WASTE: F/P l 08:44: - Sink; E González 00 - [facility] Trash Bin potassium 2018-11 No Notes: Memori a phosphate - (Same as: l 08:44: K Hegins 00 Phosphate. ) Do not infuse phosphorou [...] than 250 mg/dL., Start date: 10/23/19 2:44:00 LITERACY EDUCATION PROFESSOR, Duration:. .. D5W 1/2NS 2018-11 No 1,000 mL, Mem oria 1,000 mL 12-23 Rate: 250 l 08:44: ml/hr, Hegins 00 Infuse over: 4 hr, Route: IV, Dosing Weight 64.7 kg, Total Volume: 1,000, Start date: 10/23/19 2:44:00 LITERACY EDUCATION PROFESSOR, Duration: 30 day, Stop date: 11/22/19 2:43:00 LITERACY EDUCATION PROFESSOR, 1.73, m2, 0 Insulin 2018-11 No Notes: [...] Blood Glucose Results, Start date: 10/23/19 2:44:00 LITERACY EDUCATION PROFESSOR, Duration: 30 day, Stop date: 11/22/19 2:43:00 LITERACY EDUCATION PROFESSOR, 0 Glucagon 2018-11 No 1 mg, Memoria 12-23 Route: IM, l 08:44: Drug form: PDR/INJ, PRN, Dosing Weight 64.7, kg, PRN Blood Glucose Results, Start date: 10/23/19 2:44:00 LITERACY EDUCATION PROFESSOR, Duration: 30 day, Stop date: 11/22/19 2:43:00 LITERACY EDUCATION PROFESSOR, 0 Potassium 2018-11 No Notes: Memori a Chloride 12-23 (Same as: l 08:44: KCL) Infuse no faster than 10 mEq/hr if given peripheral ly. Magnesium 2018-11 No Notes: Memori a Sulfate 12-23 WASTE: F/P l 08:44: - Sink; E Hegins 00 - [facility] potassium 2018-11 [...] Rate: 250 l 0.9% IV 08:44: ml/hr, Hegins 1,000 mL 00 Infuse over: 4 hr, Route: IV, Dosing Weight 64.7 kg, Total Volume: 1,000, When Finger stick blood glucose values remain ABOVE 250 mg/dL administer until BG is less than 250 mg/dL., Start date: 10/23/19 2:44:00 LITERACY EDUCATION PROFESSOR, Duration:. .. D5W 1/2NS 2018-11 No 1,000 mL, Mem oria 1,000 mL 12-23 Rate: 250 l 08:44: ml/hr, Hegins 00 Infuse over: 4 hr, Route: IV, Dosing Weight 64.7 kg, Total Volume: 1,000, Start date: 10/23/19 2:44:00 LITERACY EDUCATION PROFESSOR, Duration: 30 day, Stop date: 11/22/19 2:43:00 LITERACY EDUCATION PROFESSOR, 1.73, m2, 0 Insulin 2018-11 No Notes: [...] Blood Glucose Results, Start date: 10/23/19 2:44:00 LITERACY EDUCATION PROFESSOR, Duration: 30 day, Stop date: 11/22/19 2:43:00 LITERACY EDUCATION PROFESSOR, 0 Glucagon 2018-11 No 1 mg, Memoria 12-23 Route: IM, l 08:44: Drug form: PDR/INJ, PRN, Dosing Weight 64.7, kg, PRN Blood Glucose Results, Start date: 10/23/19 2:44:00 LITERACY EDUCATION PROFESSOR, Duration: 30 day, Stop date: 11/22/19 2:43:00 LITERACY EDUCATION PROFESSOR, 0 Potassium 2018-11 No Notes: Memori a Chloride 12-23 (Same as: l 08:44: KCL) Hegins 00 Infuse no faster than 10 mEq/hr if given peripheral ly. Magnesium 2018-11 No Notes: Memori a Sulfate 12-23 WASTE: F/P l 08:44: - Sink; E Hegins 00 - [employer] potassium 2018-11 [...] than 250 mg/dL., Start date: 10/23/19 2:44:00 LITERACY EDUCATION PROFESSOR, Duration:. .. D5W 1/2NS 2018-11 No 1,000 mL, Mem oria 1,000 mL 12-23 Rate: 250 l 08:44: ml/hr, González 00 Infuse over: 4 hr, Route: IV, Dosing Weight 64.7 kg, Total Volume: 1,000, Start date: 10/23/19 2:44:00 LITERACY EDUCATION PROFESSOR, Duration: 30 day, Stop date: 11/22/19 2:43:00 LITERACY EDUCATION PROFESSOR, 1.73, m2, 0 Insulin 2018-11 No Notes: [...] Blood Glucose Results, Start date: 10/23/19 2:44:00 LITERACY EDUCATION PROFESSOR, Duration: 30 day, Stop date: 11/22/19 2:43:00 LITERACY EDUCATION PROFESSOR, 0 Glucagon 2018-11 No 1 mg, Memoria 12-23 Route: IM, l 08:44: Drug form: Hegins 00 PDR/INJ, PRN, Dosing Weight 64.7, kg, PRN Blood Glucose Results, Start date: 10/23/19 2:44:00 LITERACY EDUCATION PROFESSOR, Duration: 30 day, Stop date: 11/22/19 2:43:00 LITERACY EDUCATION PROFESSOR, 0 Potassium 2018-11 No Notes: Memori a Chloride 12-23 (Same as: l 08:44: KCL) Hegins 00 Infuse no faster than 10 mEq/hr if given peripheral ly. Magnesium 2018-11 No Notes: Memori a Sulfate 12-23 WASTE: F/P l 08:44: - Sink; E Hegins 00 - [employer] potassium 2018-11 [...] Rate: 250 l 0.9% IV 08:44: ml/hr, Hegins 1,000 mL 00 Infuse over: 4 hr, Route: IV, Dosing Weight 64.7 kg, Total Volume: 1,000, When Finger stick blood glucose values remain ABOVE 250 mg/dL administer until BG is less than 250 mg/dL., Start date: 10/23/19 2:44:00 LITERACY EDUCATION PROFESSOR, Duration:. .. D5W /2NS 2018-11 No 1,000 mL, Mem oria 1,000 mL 12-23 Rate: 250 l 08:44: ml/hr, Infuse over: 4 hr, Route: IV, Dosing Weight 64.7 kg, Total Volume: 1,000, Start date: 10/23/19 2:44:00 LITERACY EDUCATION PROFESSOR, Duration: 30 day, Stop date: 11/22/19 2:43:00 LITERACY EDUCATION PROFESSOR, 1.73, m2, 0 Insulin 2018-11 No Notes: [...] Blood Glucose Results, Start date: 10/23/19 2:44:00 LITERACY EDUCATION PROFESSOR, Duration: 30 day, Stop date: 11/22/19 2:43:00 LITERACY EDUCATION PROFESSOR, 0 Glucagon 2018-11 No 1 mg, Memoria 12-23 Route: IM, l 08:44: Drug form: PDR/INJ, PRN, Dosing Weight 64.7, kg, PRN Blood Glucose Results, Start date: 10/23/19 2:44:00 LITERACY EDUCATION PROFESSOR, Duration: 30 day, Stop date: 11/22/19 2:43:00 LITERACY EDUCATION PROFESSOR, 0 Potassium 2018-11 No Notes: Memori a [...] than 250 mg/dL., Start date: 10/23/19 2:44:00 LITERACY EDUCATION PROFESSOR, Duration:. .. D5W 1/2NS 2018-11 No 1,000 mL, Mem oria 1,000 mL 12-23 Rate: 250 l 08:44: ml/hr, Hegins 00 Infuse over: 4 hr, Route: IV, Dosing Weight 64.7 kg, Total Volume: 1,000, Start date: 10/23/19 2:44:00 LITERACY EDUCATION PROFESSOR, Duration: 30 day, Stop date: 11/22/19 2:43:00 LITERACY EDUCATION PROFESSOR, 1.73, m2, 0 Insulin 2018-11 No Notes: Memoria (regular) 12-23 (Same as: l Titrate IV 08:44: Humulin R, H ermann additive 00 NovoLIN R) 100 unit + Roll in Sodium palms of Chloride hands 0.9% gently; Do (titrate) not shake 99 mL vigorously . WASTE: F/P - Black; E - [place] Trash Bin Stable for 31 days at room temperatur e Expires in days from ____Date Dextrose 2018-11 No 12.5 gm, Memor ia 50% Syringe 12-23 25 mL, l (D50W) 08:44: Route: Hegins 00 IVP, Drug Form: INJ, Dosing Weight 64.7, kg, PRN, PRN Blood Glucose Results, Start date: 10/23/19 2:44:00 LITERACY EDUCATION PROFESSOR, Duration: 30 day, Stop date: 11/22/19 2:43:00 LITERACY EDUCATION PROFESSOR, 0 Glucagon 2018-11 No 1 mg, Memoria 12-23 Route: IM, l 08:44: Drug form: González 00 PDR/INJ, PRN, Dosing Weight 64.7, kg, PRN Blood Glucose Results, Start date: 10/23/19 2:44:00 LITERACY EDUCATION PROFESSOR, Duration: 30 day, Stop date: 11/22/19 2:43:00 LITERACY EDUCATION PROFESSOR, 0 Potassium 2018-11 No Notes: Memori a Chloride 12-23 (Same as: l 08:44: KCL) Hegins 00 Infuse no faster than 10 mEq/hr if given peripheral ly. Magnesium 2018-11 No Notes: Memori a Sulfate 12-23 WASTE: F/P l 08:44: - Sink; E González 00 - [place] Trash Bin potassium 2018-11 No Notes: Memori a phosphate 12-23 (Same as: l 08:44: K Hegins 00 Phosphate. ) Do not infuse phosphorou [...] Rate: 250 l 0.9% IV 08:44: ml/hr, Hegins 1,000 mL 00 Infuse over: 4 hr, Route: IV, Dosing Weight 64.7 kg, Total Volume: 1,000, When Finger stick blood glucose values remain ABOVE 250 mg/dL administer until BG is less than 250 mg/dL., Start date: 10/23/19 2:44:00 LITERACY EDUCATION PROFESSOR, Duration:. .. D5W 1/2NS 2018-11 No 1,000 mL, Mem oria 1,000 mL 12-23 Rate: 250 l 08:44: ml/hr, Hegins 00 Infuse over: 4 hr, Route: IV, Dosing Weight 64.7 kg, Total Volume: 1,000, Start date: 10/23/19 2:44:00 LITERACY EDUCATION PROFESSOR, Duration: 30 day, Stop date: 11/22/19 2:43:00 LITERACY EDUCATION PROFESSOR, 1.73, m2, 0 Insulin 2018-11 No Notes: [...] 12-23 25 mL, l (D50W) 08:44: Route: Hegins 00 IVP, Drug Form: INJ, Dosing Weight 64.7, kg, PRN, PRN Blood Glucose Results, Start date: 10/23/19 2:44:00 LITERACY EDUCATION PROFESSOR, Duration: 30 day, Stop date: 11/22/19 2:43:00 LITERACY EDUCATION PROFESSOR, 0 Glucagon 2018-11 No 1 mg, Memoria 12-23 Route: IM, l 08:44: Drug form: Hegins 00 PDR/INJ, PRN, Dosing Weight 64.7, kg, PRN Blood Glucose Results, Start date: 10/23/19 2:44:00 LITERACY EDUCATION PROFESSOR, Duration: 30 day, Stop date: 11/22/19 2:43:00 LITERACY EDUCATION PROFESSOR, 0 Potassium 2018-11 No Notes: Memori a Chloride 12-23 (Same as: l 08:44: KCL) Infuse no faster than 10 mEq/hr if given peripheral ly. Magnesium 2018-11 No Notes: Memori a Sulfate 12-23 WASTE: F/P l 08:44: - Sink; E González 00 - [facility] Trash [facility] potassium 2018-11 No Notes: Memori a phosphate 12-23 (Same as: l 08:44: K Hegins 00 Phosphate. ) Do not infuse phosphorou [...] than 250 mg/dL., Start date: 10/23/19 2:44:00 LITERACY EDUCATION PROFESSOR, Duration:. .. D5W 1/2NS 2018-11 No 1,000 mL, Mem oria 1,000 mL 12-23 Rate: 250 l 08:44: ml/hr, Infuse over: 4 hr, Route: IV, Dosing Weight 64.7 kg, Total Volume: 1,000, Start date: 10/23/19 2:44:00 LITERACY EDUCATION PROFESSOR, Duration: 30 day, Stop date: 11/22/19 2:43:00 LITERACY EDUCATION PROFESSOR, 1.73, m2, 0 Insulin 2018-11 No Notes: Memoria (regular) 12-23 (Same as: l Titrate IV 08:44: Humulin R, H ermann additive 00 NovoLIN R) 100 unit + Roll in Sodium palms of Chloride hands 0.9% gently; Do (titrate) not shake 99 mL vigorously . WASTE: F/P - Black; E - [place] Trash Bin Stable for 31 days at room temperatur e Expires in days from ____Date Dextrose 2018-11 No 12.5 gm, Memor ia 50% Syringe 12-23 25 mL, l (D50W) 08:44: Route: IVP, Drug Form: INJ, Dosing Weight 64.7, kg, PRN, PRN Blood Glucose Results, Start date: 10/23/19 2:44:00 LITERACY EDUCATION PROFESSOR, Duration: 30 day, Stop date: 11/22/19 2:43:00 LITERACY EDUCATION PROFESSOR, 0 Glucagon 2018-11 No 1 mg, Memoria 12-23 Route: IM, l 08:44: Drug form: PDR/INJ, PRN, Dosing Weight 64.7, kg, PRN Blood Glucose Results, Start date: 10/23/19 2:44:00 LITERACY EDUCATION PROFESSOR, Duration: 30 day, Stop date: 11/22/19 2:43:00 LITERACY EDUCATION PROFESSOR, 0 Potassium 2018-11 No Notes: Memori a Chloride 12-23 (Same as: l 08:44: KCL) Hegins 00 Infuse no faster than 10 mEq/hr if given peripheral ly. Magnesium 2018-11 No Notes: Memori a Sulfate 12-23 WASTE: F/P l 08:44: - Sink; E Hegins - [facility] Trash [facility] potassium 2018-11 No Notes: Memori a phosphate 12-23 (Same as: l 08:44: K González Phosphate. ) Do not infuse phosphorou s concurrent ly in the same line as TPN or IVF that contains calcium. For double lumen central lines, phosphorou s may be infused in a separate lumen from TPN. 1 mMol phoshate has 1.47 mEq potassium Infuse over 4 hours Sodium 2018-11 No 1,000 mL, Memori a Chloride 12-23 Rate: 250 l 0.9% IV 08:44: ml/hr, Hegins 1,000 mL 00 Infuse over: 4 hr, Route: IV, Dosing Weight 64.7 kg, Total Volume: 1,000, When Finger stick blood glucose values remain ABOVE 250 mg/dL administer until BG is less than 250 mg/dL., Start date: 10/23/19 2:44:00 LITERACY EDUCATION PROFESSOR, Duration:. .. D5W 1/2NS 2018-11 No 1,000 mL, Mem oria 1,000 mL 12-23 Rate: 250 l 08:44: ml/hr, González 00 Infuse over: 4 hr, Route: IV, Dosing Weight 64.7 kg, Total Volume: 1,000, Start date: 10/23/19 2:44:00 LITERACY EDUCATION PROFESSOR, Duration: 30 day, Stop date: 11/22/19 2:43:00 LITERACY EDUCATION PROFESSOR, 1.73, m2, 0 Insulin 2018-11 No Notes: [...] 12-23 25 mL, l (D50W) 08:44: Route: Hegins 00 IVP, Drug Form: INJ, Dosing Weight 64.7, kg, PRN, PRN Blood Glucose Results, Start date: 10/23/19 2:44:00 LITERACY EDUCATION PROFESSOR, Duration: 30 day, Stop date: 11/22/19 2:43:00 LITERACY EDUCATION PROFESSOR, 0 Glucagon 2018-11 No 1 mg, Memoria 12-23 Route: IM, l 08:44: Drug form: Hegins 00 PDR/INJ, PRN, Dosing Weight 64.7, kg, PRN Blood Glucose Results, Start date: 10/23/19 2:44:00 LITERACY EDUCATION PROFESSOR, Duration: 30 day, Stop date: 11/22/19 2:43:00 LITERACY EDUCATION PROFESSOR, 0 Potassium 2018-11 No Notes: Memori a Chloride - (Same as: l 08:44: KCL) González Infuse no faster than 10 mEq/hr if given peripheral ly. Magnesium 2018-11 No Notes: Memori a Sulfate 12-23 WASTE: F/P l 08:44: - Sink; E González 00 - [facility] [place] Trash Bin potassium 2018-11 No Notes: Memori a phosphate - (Same as: l 08:44: K González 00 Phosphate. ) Do not infuse phosphorou s concurrent ly in the same line as TPN or IVF that contains calcium. For double lumen central lines, phosphorou s may be infused in a separate lumen from TPN. 1 mMol phoshate has 1.47 mEq potassium Infuse over 4 hours Sodium 2018-11 No 1,000 mL, Memori a Chloride -29 Rate: 250 l 0.9% IV 08:44: ml/hr, Hegins 1,000 mL 00 Infuse over: 4 hr, Route: IV, Dosing Weight 64.7 kg, Total Volume: 1,000, When Finger stick blood glucose values remain ABOVE 250 mg/dL administer until BG is less than 250 mg/dL., Start date: 10/23/19 2:44:00 LITERACY EDUCATION PROFESSOR, Duration:. .. D5W 1/2NS 2018-11 No 1,000 mL, Mem oria 1,000 mL - Rate: 250 l 08:44: ml/hr, Hegins 00 Infuse over: 4 hr, Route: IV, Dosing Weight 64.7 kg, Total Volume: 1,000, Start date: 10/23/19 2:44:00 LITERACY EDUCATION PROFESSOR, Duration: 30 day, Stop date: 11/22/19 2:43:00 LITERACY EDUCATION PROFESSOR, 1.73, m2, 0 Insulin 2018-11 No Notes: [...] Blood Glucose Results, Start date: 10/23/19 2:44:00 LITERACY EDUCATION PROFESSOR, Duration: 30 day, Stop date: 11/22/19 2:43:00 LITERACY EDUCATION PROFESSOR, 0 Glucagon 2018-11 No 1 mg, Memoria 12-23 Route: IM, l 08:44: Drug form: PDR/INJ, PRN, Dosing Weight 64.7, kg, PRN Blood Glucose Results, Start date: 10/23/19 2:44:00 LITERACY EDUCATION PROFESSOR, Duration: 30 day, Stop date: 11/22/19 2:43:00 LITERACY EDUCATION PROFESSOR, 0 Potassium 2018-11 No Notes: Memori a [...] Rate: 250 l 0.9% IV 08:44: ml/hr, Hegins 1,000 mL 00 Infuse over: 4 hr, Route: IV, Dosing Weight 64.7 kg, Total Volume: 1,000, When Finger stick blood glucose values remain ABOVE 250 mg/dL administer until BG is less than 250 mg/dL., Start date: 10/23/19 2:44:00 LITERACY EDUCATION PROFESSOR, Duration:. .. D5W 1/2NS 2018-11 No 1,000 mL, Mem oria 1,000 mL 12-23 Rate: 250 l 08:44: ml/hr, González 00 Infuse over: 4 hr, Route: IV, Dosing Weight 64.7 kg, Total Volume: 1,000, Start date: 10/23/19 2:44:00 LITERACY EDUCATION PROFESSOR, Duration: 30 day, Stop date: 11/22/19 2:43:00 LITERACY EDUCATION PROFESSOR, 1.73, m2, 0 Insulin 2018-11 No Notes: Memoria (regular) 12-23 (Same as: l Titrate IV 08:44: Humulin R, H ermann additive 00 NovoLIN R) 100 unit + Roll in Sodium palms of Chloride hands 0.9% gently; Do (titrate) not shake 99 mL vigorously . WASTE: F/P - Black; E - [place] Trash Bin Stable for 31 days at room temperatur e Expires in days from ____Date Dextrose 2018-11 No 12.5 gm, Memor ia 50% Syringe 12-23 25 mL, l (D50W) 08:44: Route: González IVP, Drug Form: INJ, Dosing Weight 64.7, kg, PRN, PRN Blood Glucose Results, Start date: 10/23/19 2:44:00 LITERACY EDUCATION PROFESSOR, Duration: 30 day, Stop date: 11/22/19 2:43:00 LITERACY EDUCATION PROFESSOR, 0 Glucagon 2018-11 No 1 mg, Memoria 12-23 Route: IM, l 08:44: Drug form: Hegins 00 PDR/INJ, PRN, Dosing Weight 64.7, kg, PRN Blood Glucose Results, Start date: 10/23/19 2:44:00 LITERACY EDUCATION PROFESSOR, Duration: 30 day, Stop date: 11/22/19 2:43:00 LITERACY EDUCATION PROFESSOR, 0 Potassium 2018-11 No Notes: Memori a Chloride 12-23 (Same as: l 08:44: KCL) González 00 Infuse no faster than 10 mEq/hr if given peripheral ly. Magnesium 2018-11 No Notes: Memori a Sulfate 12-23 WASTE: F/P l 08:44: - Sink; E González 00 - [facility] potassium 2018-11 No Notes: Memori a phosphate 12-23 (Same as: l 08:44: K Hegins 00 Phosphate. ) Do not infuse phosphorou [...] than 250 mg/dL., Start date: 10/23/19 2:44:00 LITERACY EDUCATION PROFESSOR, Duration:. .. D5W 1/2NS 2018-11 No 1,000 mL, Mem oria 1,000 mL 12-23 Rate: 250 l 08:44: ml/hr, Hegins 00 Infuse over: 4 hr, Route: IV, Dosing Weight 64.7 kg, Total Volume: 1,000, Start date: 10/23/19 2:44:00 LITERACY EDUCATION PROFESSOR, Duration: 30 day, Stop date: 11/22/19 2:43:00 LITERACY EDUCATION PROFESSOR, 1.73, m2, 0 Insulin 2018-11 No Notes: [...] Blood Glucose Results, Start date: 10/23/19 2:44:00 LITERACY EDUCATION PROFESSOR, Duration: 30 day, Stop date: 11/22/19 2:43:00 LITERACY EDUCATION PROFESSOR, 0 Glucagon 2018-11 No 1 mg, Memoria 12-23 Route: IM, l 08:44: Drug form: Hegins 00 PDR/INJ, PRN, Dosing Weight 64.7, kg, PRN Blood Glucose Results, Start date: 10/23/19 2:44:00 LITERACY EDUCATION PROFESSOR, Duration: 30 day, Stop date: 11/22/19 2:43:00 LITERACY EDUCATION PROFESSOR, 0 Potassium 2018-11 No Notes: Memori a Chloride 12-23 (Same as: l 08:44: KCL) Infuse no faster than 10 mEq/hr if given peripheral ly. Magnesium 2018-11 No Notes: Memori a Sulfate 12-23 WASTE: F/P l 08:44: - Sink; E González 00 - [facility] [place] Trash Bin potassium 2018-11 No Notes: Memori a phosphate 12-23 (Same as: l 08:44: K Hegins 00 Phosphate. ) Do not infuse phosphorou [...] than 250 mg/dL., Start date: 10/23/19 2:44:00 LITERACY EDUCATION PROFESSOR, Duration:. .. D5W 1/2NS 2018-11 No 1,000 mL, Mem oria 1,000 mL 12-23 Rate: 250 l 08:44: ml/hr, Infuse over: 4 hr, Route: IV, Dosing Weight 64.7 kg, Total Volume: 1,000, Start date: 10/23/19 2:44:00 LITERACY EDUCATION PROFESSOR, Duration: 30 day, Stop date: 11/22/19 2:43:00 LITERACY EDUCATION PROFESSOR, 1.73, m2, 0 Insulin 2018-11 No Notes: [...] Blood Glucose Results, Start date: 10/23/19 2:44:00 LITERACY EDUCATION PROFESSOR, Duration: 30 day, Stop date: 11/22/19 2:43:00 LITERACY EDUCATION PROFESSOR, 0 Glucagon 2018-11 No 1 mg, Memoria 12-23 Route: IM, l 08:44: Drug form: PDR/INJ, PRN, Dosing Weight 64.7, kg, PRN Blood Glucose Results, Start date: 10/23/19 2:44:00 LITERACY EDUCATION PROFESSOR, Duration: 30 day, Stop date: 11/22/19 2:43:00 LITERACY EDUCATION PROFESSOR, 0 Potassium 2018-11 No Notes: Memori a [...] than 250 mg/dL., Start date: 10/23/19 2:44:00 LITERACY EDUCATION PROFESSOR, Duration:. .. D5W 12NS 2018-11 No 1,000 mL, Mem oria 1,000 mL 12-23 Rate: 250 l 08:44: ml/hr, González 00 Infuse over: 4 hr, Route: IV, Dosing Weight 64.7 kg, Total Volume: 1,000, Start date: 10/23/19 2:44:00 LITERACY EDUCATION PROFESSOR, Duration: 30 day, Stop date: 11/22/19 2:43:00 LITERACY EDUCATION PROFESSOR, 1.73, m2, 0 Insulin 2018-11 No Notes: Memoria (regular) 12-23 (Same as: l Titrate IV 08:44: Humulin R, H ermann additive 00 NovoLIN R) 100 unit + Roll in Sodium palms of Chloride hands 0.9% gently; Do (titrate) not shake 99 mL vigorously . WASTE: F/P - Black; E - [place] Trash Bin Stable for 31 days at room temperatur e Expires in days from ____Date Dextrose 2018-11 No 12.5 gm, Memor ia 50% Syringe 12-23 25 mL, l (D50W) 08:44: Route: González 00 IVP, Drug Form: INJ, Dosing Weight 64.7, kg, PRN, PRN Blood Glucose Results, Start date: 10/23/19 2:44:00 LITERACY EDUCATION PROFESSOR, Duration: 30 day, Stop date: 11/22/19 2:43:00 LITERACY EDUCATION PROFESSOR, 0 Glucagon 2019-1 No 1 mg, Memoria 12-23 Route: IM, l 08:44: Drug form: González 00 PDR/INJ, PRN, Dosing Weight 64.7, kg, PRN Blood Glucose Results, Start date: 10/23/19 2:44:00 LITERACY EDUCATION PROFESSOR, Duration: 30 day, Stop date: 11/22/19 2:43:00 LITERACY EDUCATION PROFESSOR, 0 Potassium 2018-11 No Notes: Memori a Chloride 12-23 (Same as: l 08:44: KCL) González 00 Infuse no faster than 10 mEq/hr if given peripheral ly. Magnesium 2018-11 No Notes: Memori a Sulfate 12-23 WASTE: F/P l 08:44: - Sink; E González 00 - [facility] potassium 2018-11 No Notes: Memori a phosphate 12-23 (Same as: l 08:44: K Hegins Phosphate. ) Do not infuse phosphorou s concurrent ly in the same line as TPN or IVF that contains calcium. For double lumen central lines, phosphorou s may be infused in a separate lumen from TPN. 1 mMol phoshate has 1.47 mEq potassium Infuse over 4 hours Sodium 2018-11 No 1,000 mL, Memori a Chloride 12-23 Rate: 250 l 0.9% IV 08:44: ml/hr, Hegins 1,000 mL 00 Infuse over: 4 hr, Route: IV, Dosing Weight 64.7 kg, Total Volume: 1,000, When Finger stick blood glucose values remain ABOVE 250 mg/dL administer until BG is less than 250 mg/dL., Start date: 10/23/19 2:44:00 LITERACY EDUCATION PROFESSOR, Duration:. .. D5W 1/2NS 2018-11 No 1,000 mL, Mem oria 1,000 mL 12-23 Rate: 250 l 08:44: ml/hr, Hegins 00 Infuse over: 4 hr, Route: IV, Dosing Weight 64.7 kg, Total Volume: 1,000, Start date: 10/23/19 2:44:00 LITERACY EDUCATION PROFESSOR, Duration: 30 day, Stop date: 11/22/19 2:43:00 LITERACY EDUCATION PROFESSOR, 1.73, m2, 0 Insulin 2018-11 No Notes: [...] Blood Glucose Results, Start date: 10/23/19 2:44:00 LITERACY EDUCATION PROFESSOR, Duration: 30 day, Stop date: 11/22/19 2:43:00 LITERACY EDUCATION PROFESSOR, 0 Glucagon 2018-11 No 1 mg, Memoria 12-23 Route: IM, l 08:44: Drug form: González PDR/INJ, PRN, Dosing Weight 64.7, kg, PRN Blood Glucose Results, Start date: 10/23/19 2:44:00 LITERACY EDUCATION PROFESSOR, Duration: 30 day, Stop date: 11/22/19 2:43:00 LITERACY EDUCATION PROFESSOR, 0 Potassium 2018-11 No Notes: Memori a Chloride 12-23 (Same as: l 08:44: KCL) González 00 Infuse no faster than 10 mEq/hr if given peripheral ly. Magnesium 2018-11 No Notes: Memori a Sulfate 12-23 WASTE: F/P l 08:44: - Sink; E - [facility] potassium 2018-11 No Notes: Memori a phosphate 12-23 (Same as: l 08:44: K Hegins Phosphate. ) Do not infuse phosphorou s [...] than 250 mg/dL., Start date: 10/23/19 2:44:00 LITERACY EDUCATION PROFESSOR, Duration:. .. D5W 1/2NS 2018-11 No 1,000 mL, Mem oria 1,000 mL 12-23 Rate: 250 l 08:44: ml/hr, Infuse over: 4 hr, Route: IV, Dosing Weight 64.7 kg, Total Volume: 1,000, Start date: 10/23/19 2:44:00 LITERACY EDUCATION PROFESSOR, Duration: 30 day, Stop date: 11/22/19 2:43:00 LITERACY EDUCATION PROFESSOR, 1.73, m2, 0 Insulin 2018-11 No Notes: Memoria (regular) 12-23 (Same as: l Titrate IV 08:44: Humulin R, H ermann additive 00 NovoLIN R) 100 unit + Roll in Sodium palms of Chloride hands 0.9% gently; Do (titrate) not shake 99 mL vigorously . WASTE: F/P - Black; E - [place] Trash Bin Stable for 31 days at room temperatur e Expires in days from ____Date Dextrose 2018-11 No 12.5 gm, Memor ia 50% Syringe 12-23 25 mL, l (D50W) 08:44: Route: IVP, Drug Form: INJ, Dosing Weight 64.7, kg, PRN, PRN Blood Glucose Results, Start date: 10/23/19 2:44:00 LITERACY EDUCATION PROFESSOR, Duration: 30 day, Stop date: 11/22/19 2:43:00 LITERACY EDUCATION PROFESSOR, 0 Glucagon 2018-11 No 1 mg, Memoria 12-23 Route: IM, l 08:44: Drug form: PDR/INJ, PRN, Dosing Weight 64.7, kg, PRN Blood Glucose Results, Start date: 10/23/19 2:44:00 LITERACY EDUCATION PROFESSOR, Duration: 30 day, Stop date: 11/22/19 2:43:00 LITERACY EDUCATION PROFESSOR, 0 Potassium 2018-11 No Notes: Memori a Chloride 12-23 (Same as: l 08:44: KCL) Infuse no faster than 10 mEq/hr if given peripheral ly. Magnesium 2018-11 No Notes: Memori a Sulfate 12-23 WASTE: F/P l 08:44: - Sink; E González 00 - [facility] Tr[facility] potassium 2018-11 No Notes: Memori a phosphate 12-23 (Same as: l 08:44: K Hegins 00 Phosphate. ) Do not infuse phosphorou [...] than 250 mg/dL., Start date: 10/23/19 2:44:00 LITERACY EDUCATION PROFESSOR, Duration:. .. D5W 1/2NS 2018-11 No 1,000 mL, Mem oria 1,000 mL 12-23 Rate: 250 l 08:44: ml/hr, González 00 Infuse over: 4 hr, Route: IV, Dosing Weight 64.7 kg, Total Volume: 1,000, Start date: 10/23/19 2:44:00 LITERACY EDUCATION PROFESSOR, Duration: 30 day, Stop date: 11/22/19 2:43:00 LITERACY EDUCATION PROFESSOR, 1.73, m2, 0 Insulin 2018-11 No Notes: [...] Blood Glucose Results, Start date: 10/23/19 2:44:00 LITERACY EDUCATION PROFESSOR, Duration: 30 day, Stop date: 11/22/19 2:43:00 LITERACY EDUCATION PROFESSOR, 0 Glucagon 2018-11 No 1 mg, Memoria 12-23 Route: IM, l 08:44: Drug form: Hegins 00 PDR/INJ, PRN, Dosing Weight 64.7, kg, PRN Blood Glucose Results, Start date: 10/23/19 2:44:00 LITERACY EDUCATION PROFESSOR, Duration: 30 day, Stop date: 11/22/19 2:43:00 LITERACY EDUCATION PROFESSOR, 0 Potassium 2018-11 No Notes: Memori a Chloride 12-23 (Same as: l 08:44: KCL) Hegins 00 Infuse no faster than 10 mEq/hr if given peripheral ly. Magnesium 2018-11 No Notes: Memori a Sulfate 12-23 WASTE: F/P l 08:44: - Sink; E Hegins 00 - [facility] potassium 2018-11 No Notes: Memori a phosphate 12-23 (Same as: l 08:44: K Hegins 00 Phosphate. ) Do not infuse phosphorou [...] Rate: 250 l 0.9% IV 08:44: ml/hr, Hegins 1,000 mL 00 Infuse over: 4 hr, Route: IV, Dosing Weight 64.7 kg, Total Volume: 1,000, When Finger stick blood glucose values remain ABOVE 250 mg/dL administer until BG is less than 250 mg/dL., Start date: 10/23/19 2:44:00 LITERACY EDUCATION PROFESSOR, Duration:. .. D5W 1/2NS 2018-11 No 1,000 mL, Mem oria 1,000 mL 12-23 Rate: 250 l 08:44: ml/hr, González 00 Infuse over: 4 hr, Route: IV, Dosing Weight 64.7 kg, Total Volume: 1,000, Start date: 10/23/19 2:44:00 LITERACY EDUCATION PROFESSOR, Duration: 30 day, Stop date: 11/22/19 2:43:00 LITERACY EDUCATION PROFESSOR, 1.73, m2, 0 Insulin 2018-11 No Notes: [...] 12-23 25 mL, l (D50W) 08:44: Route: Hegins 00 IVP, Drug Form: INJ, Dosing Weight 64.7, kg, PRN, PRN Blood Glucose Results, Start date: 10/23/19 2:44:00 LITERACY EDUCATION PROFESSOR, Duration: 30 day, Stop date: 11/22/19 2:43:00 LITERACY EDUCATION PROFESSOR, 0 Glucagon 2018-11 No 1 mg, Memoria 12-23 Route: IM, l 08:44: Drug form: Hegins 00 PDR/INJ, PRN, Dosing Weight 64.7, kg, PRN Blood Glucose Results, Start date: 10/23/19 2:44:00 LITERACY EDUCATION PROFESSOR, Duration: 30 day, Stop date: 11/22/19 2:43:00 LITERACY EDUCATION PROFESSOR, 0 Potassium 2018-11 No Notes: Memori a Chloride 12-23 (Same as: l 08:44: KCL) Infuse no faster than 10 mEq/hr if given peripheral ly. Magnesium 2018-11 No Notes: Memori a Sulfate 12-23 WASTE: F/P l 08:44: - Sink; E Hegins 00 - [facility] Sodium 2018-11 No 1,000 mL, Memori a Chloride 12-23 Rate: 250 l 0.9% IV 08:44: ml/hr, Hegins 1,000 mL 00 Infuse over: 4 hr, Route: IV, Dosing Weight 64.7 kg, Total Volume: 1,000, When Finger stick blood glucose values remain ABOVE 250 mg/dL administer until BG is less than 250 mg/dL., Start date: 10/23/19 2:44:00 LITERACY EDUCATION PROFESSOR, Duration:. .. D5W /2NS 2018-11 No 1,000 mL, Mem oria 1,000 mL 12-23 Rate: 250 l 08:44: ml/hr, Infuse over: 4 hr, Route: IV, Dosing Weight 64.7 kg, Total Volume: 1,000, Start date: 10/23/19 2:44:00 LITERACY EDUCATION PROFESSOR, Duration: 30 day, Stop date: 11/22/19 2:43:00 LITERACY EDUCATION PROFESSOR, 1.73, m2, 0 Insulin 2018-11 No Notes: [...] Blood Glucose Results, Start date: 10/23/19 2:44:00 LITERACY EDUCATION PROFESSOR, Duration: 30 day, Stop date: 11/22/19 2:43:00 LITERACY EDUCATION PROFESSOR, 0 Glucagon 2018-11 No 1 mg, Memoria 12-23 Route: IM, l 08:44: Drug form: PDR/INJ, PRN, Dosing Weight 64.7, kg, PRN Blood Glucose Results, Start date: 10/23/19 2:44:00 LITERACY EDUCATION PROFESSOR, Duration: 30 day, Stop date: 11/22/19 2:43:00 LITERACY EDUCATION PROFESSOR, 0 Potassium 2018-11 No Notes: Memori a Chloride 12-23 (Same as: l 08:44: KCL) Infuse no faster than 10 mEq/hr if given peripheral ly. Magnesium 2018-11 No Notes: Memori a Sulfate 12-23 WASTE: F/P l 08:44: - Sink; E - [employer] potassium 2018-11 No Notes: Memori a phosphate -29 (Same as: l 08:44: K González 00 [...] phosphate - (Same as: l 08:44: K González 00 [...] Rate: 250 l 0.9% IV 08:44: ml/hr, Hegins 1,000 mL 00 Infuse over: 4 hr, Route: IV, Dosing Weight 64.7 kg, Total Volume: 1,000, When Finger stick blood glucose values remain ABOVE 250 mg/dL administer until BG is less than 250 mg/dL., Start date: 10/23/19 2:44:00 LITERACY EDUCATION PROFESSOR, Duration:. .. D5W 2NS 2018-11 No 1,000 mL, Mem oria 1,000 mL 12-23 Rate: 250 l 08:44: ml/hr, González 00 Infuse over: 4 hr, Route: IV, Dosing Weight 64.7 kg, Total Volume: 1,000, Start date: 10/23/19 2:44:00 LITERACY EDUCATION PROFESSOR, Duration: 30 day, Stop date: 11/22/19 2:43:00 LITERACY EDUCATION PROFESSOR, 1.73, m2, 0 Insulin 2018-11 No Notes: [...] Blood Glucose Results, Start date: 10/23/19 2:44:00 LITERACY EDUCATION PROFESSOR, Duration: 30 day, Stop date: 11/22/19 2:43:00 LITERACY EDUCATION PROFESSOR, 0 Glucagon 2018-11 No 1 mg, Memoria 12-23 Route: IM, l 08:44: Drug form: Hegins 00 PDR/INJ, PRN, Dosing Weight 64.7, kg, PRN Blood Glucose Results, Start date: 10/23/19 2:44:00 LITERACY EDUCATION PROFESSOR, Duration: 30 day, Stop date: 11/22/19 2:43:00 LITERACY EDUCATION PROFESSOR, 0 Potassium 2018-11 No Notes: Memori a Chloride 12-23 (Same as: l 08:44: KCL) González Infuse no faster than 10 mEq/hr if given peripheral ly. Magnesium 2018-11 No Notes: Memori a Sulfate 12-23 WASTE: F/P l 08:44: - Sink; E González - [employer] potassium 2018-11 No [...] Rate: 250 l 0.9% IV 08:44: ml/hr, Hegins 1,000 mL 00 Infuse over: 4 hr, Route: IV, Dosing Weight 64.7 kg, Total Volume: 1,000, When Finger stick blood glucose values remain ABOVE 250 mg/dL administer until BG is less than 250 mg/dL., Start date: 10/23/19 2:44:00 LITERACY EDUCATION PROFESSOR, Duration:. .. D5W 1/2NS 2018-11 No 1,000 mL, Mem oria 1,000 mL 12-23 Rate: 250 l 08:44: ml/hr, González 00 Infuse over: 4 hr, Route: IV, Dosing Weight 64.7 kg, Total Volume: 1,000, Start date: 10/23/19 2:44:00 LITERACY EDUCATION PROFESSOR, Duration: 30 day, Stop date: 11/22/19 2:43:00 LITERACY EDUCATION PROFESSOR, 1.73, m2, 0 Insulin 2018-11 No Notes: [...] Blood Glucose Results, Start date: 10/23/19 2:44:00 LITERACY EDUCATION PROFESSOR, Duration: 30 day, Stop date: 11/22/19 2:43:00 LITERACY EDUCATION PROFESSOR, 0 Glucagon 2018-11 No 1 mg, Memoria 12-23 Route: IM, l 08:44: Drug form: PDR/INJ, PRN, Dosing Weight 64.7, kg, PRN Blood Glucose Results, Start date: 10/23/19 2:44:00 LITERACY EDUCATION PROFESSOR, Duration: 30 day, Stop date: 11/22/19 2:43:00 LITERACY EDUCATION PROFESSOR, 0 Potassium 2018-11 No Notes: Memori a [...] janell 12-23 Same as: l 08:39: Cardene Hegins 00 Concentrat ion: (0.2 mg /1 ml ) Ondansetron 2018-11 No Notes: Maxwell janell 12-23 (Same as: l 08:39: Zofran) González 00 MEDICATION WASTE Product Size: 4 mg Product Wasted: ___ mg Saline 2018-11 No Notes: Memoria Flush 0.9% 12-23 (Same as: l 08:39: BD Hegins 00 Posiflush) Nicardipine 2018-11 No Notes: Maxwell [...] janell 12-23 (Same as: l 08:39: Zofran) Hegins 00 MEDICATION WASTE Product Size: 4 mg Product Wasted: ___ mg Saline 2018-11 No Notes: Memoria Flush 0.9% - (Same as: l 08:39: BD González 00 Posiflush) Nicardipine 2018-11 No Notes: Maxwell janell 12-23 Same as: l 08:39: Cardene Hegins 00 Concentrat ion: (0.2 mg /1 ml ) Ondansetron 2018-11 No Notes: Maxwell janell 12-23 (Same as: l 08:39: Zofran) Hegins 00 MEDICATION WASTE Product Size: 4 mg Product Wasted: ___ mg Saline 2018-11 No Notes: Memoria Flush 0.9% 12-23 (Same as: l 08:39: BD González 00 Posiflush) Nicardipine 2018-11 No Notes: Maxwell janell 12-23 Same as: l 08:39: Cardene Hegins Concentrat ion: (0.2 mg /1 ml ) Ondansetron 2018-11 No Notes: Maxwell janell 12-23 (Same as: l 08:39: Zofran) González 00 MEDICATION WASTE Product Size: 4 mg Product Wasted: ___ mg Saline 2018-11 No Notes: Memoria Flush 0.9% 12-23 (Same as: l 08:39: BD González 00 Posiflush) Nicardipine 2018-11 No Notes: Maxwell janell 12-23 Same as: l 08:39: Cardene Hegins 00 Concentrat ion: (0.2 mg /1 ml ) Ondansetron 2018-11 No Notes: Maxwell janell 12-23 (Same as: l 08:39: Zofran) Hegins 00 MEDICATION WASTE Product Size: 4 mg Product Wasted: ___ mg Saline 2018-11 No Notes: Memoria Flush 0.9% 12-23 (Same as: l 08:39: BD González 00 Posiflush) Nicardipine 2018-11 No Notes: Maxwell janell 12-23 Same as: l 08:39: Cardene Hegins 00 Concentrat ion: (0.2 mg /1 ml [...] janell 12-23 (Same as: l 08:39: Zofran) Hegins 00 MEDICATION WASTE Product Size: 4 mg Product Wasted: ___ mg Saline 2018-11 No Notes: Memoria Flush 0.9% 12-23 (Same as: l 08:39: BD Hegins 00 Posiflush) Nicardipine 2018-11 No Notes: Maxwell janell 12-23 Same as: l 08:39: Cardene Hegins Concentrat ion: (0.2 mg /1 ml ) Ondansetron 2018-11 No Notes: Maxwell janell 12-23 (Same as: l 08:39: Zofran) González 00 MEDICATION WASTE Product Size: 4 mg Product Wasted: ___ mg Saline 2018-11 No Notes: Memoria Flush 0.9% 12-23 (Same as: l 08:39: BD González 00 Posiflush) Nicardipine 2018-11 No Notes: Maxwell janell 12-23 Same as: l 08:39: Cardene Hegins 00 Concentrat ion: (0.2 mg /1 ml ) Ondansetron 2018-11 No Notes: Maxwell janell 12-23 (Same as: l 08:39: Zofran) Hegins 00 MEDICATION WASTE Product Size: 4 mg Product Wasted: ___ mg Saline 2018-11 No Notes: Memoria Flush 0.9% 12-23 (Same as: l 08:39: BD Hegins 00 Posiflush) Nicardipine 2018-11 No Notes: Maxwell janell 12-23 Same as: l 08:39: Cardene González Concentrat ion: (0.2 mg /1 ml ) Ondansetron 2018-11 No Notes: Maxwell janell 12-23 (Same as: l 08:39: Zofran) Hegins 00 MEDICATION WASTE Product Size: 4 mg Product Wasted: ___ mg Saline 2018-11 No Notes: Memoria Flush 0.9% 12-23 (Same as: l 08:39: BD Hegins 00 Posiflush) Nicardipine 2018-11 No Notes: Maxwell janell 12-23 Same as: l 08:39: Cardene González 00 Concentrat ion: (0.2 mg /1 ml ) Ondansetron 2018-11 No Notes: Maxwell janell 12-23 (Same as: l 08:39: Zofran) Hegins 00 MEDICATION WASTE Product Size: 4 mg Product Wasted: ___ mg Saline 2018-11 No Notes: Memoria Flush 0.9% 12-23 (Same as: l 08:39: BD González 00 Posiflush) Nicardipine 2018-11 No Notes: Maxwell janell 12-23 Same as: l 08:39: Cardene Hegins 00 Concentrat ion: (0.2 mg /1 ml ) Ondansetron 2018-11 No Notes: Maxwell janell 12-23 (Same as: l 08:39: Zofran) González 00 MEDICATION WASTE Product Size: 4 mg Product Wasted: ___ mg Saline 2018-11 No Notes: Memoria Flush 0.9% 12-23 (Same as: l 08:39: BD Hegins 00 Posiflush) Nicardipine 2018-11 No Notes: Maxwell janell 12-23 Same as: l 08:39: Cardene Hegins 00 Concentrat ion: (0.2 mg /1 ml ) Ondansetron 2018-11 No Notes: Maxwell janell 12-23 (Same as: l 08:39: Zofran) González 00 MEDICATION WASTE Product Size: 4 mg Product Wasted: ___ mg Saline 2018-11 No Notes: Memoria Flush 0.9% 12-23 (Same as: l 08:39: BD Hegins 00 Posiflush) Nicardipine 2018-11 No Notes: Maxwell janell 12-23 Same as: l 08:39: Cardene González 00 Concentrat ion: (0.2 mg /1 ml ) Ondansetron 2018-11 No Notes: Maxwell janell 12-23 (Same as: l 08:39: Zofran) González 00 MEDICATION WASTE Product Size: 4 mg Product Wasted: ___ mg Saline 2018-11 No Notes: Memoria Flush 0.9% 12-23 (Same as: l 08:39: BD Hegins 00 Posiflush) Nicardipine 2018-11 No Notes: Maxwell janell 12-23 Same as: l 08:39: Cardene González 00 Concentrat ion: (0.2 mg /1 ml ) Ondansetron 2018-11 No Notes: Maxwell janell 12-23 (Same as: l 08:39: Zofran) González 00 MEDICATION WASTE Product Size: 4 mg Product Wasted: ___ mg Saline 2018-11 No Notes: Memoria Flush 0.9% 12-23 (Same as: l 08:39: BD Hegins 00 Posiflush) Nicardipine 2018-11 No Notes: Maxwell janell 12-23 Same as: l 08:39: Cardene Hegins 00 Concentrat ion: (0.2 mg /1 ml ) Ondansetron 2018-11 No Notes: Maxwell janell 12-23 (Same as: l 08:39: Zofran) González 00 MEDICATION WASTE Product Size: 4 mg Product Wasted: ___ mg Saline 2018-11 No Notes: Memoria Flush 0.9% 12-23 (Same as: l 08:39: BD Hegins 00 Posiflush) Nicardipine 2018-11 No Notes: Maxwell janell 12-23 Same as: l 08:39: Cardene Hegins 00 Concentrat ion: (0.2 mg /1 ml ) Ondansetron 2018-11 No Notes: Maxwell janell 12-23 (Same as: l 08:39: Zofran) Hegins 00 MEDICATION WASTE Product Size: 4 mg Product Wasted: ___ mg Saline 2018-11 No Notes: Memoria Flush 0.9% 12-23 (Same as: l 08:39: BD Hegins 00 Posiflush) Nicardipine 2018-11 No Notes: Maxwell janell 12-23 Same as: l 08:39: Cardene González 00 Concentrat ion: (0.2 mg /1 ml ) Ondansetron 2018-11 No Notes: Maxwell janell 12-23 (Same as: l 08:39: Zofran) Hegins 00 MEDICATION WASTE Product Size: 4 mg Product Wasted: ___ mg Saline 2018-11 No Notes: Memoria Flush 0.9% 12-23 (Same as: l 08:39: BD González Posiflush) Nicardipine 2018-11 No Notes: Maxwell janell 12-23 Same as: l 08:39: Cardene González 00 Concentrat ion: (0.2 mg /1 ml ) Ondansetron 2018-11 No Notes: Maxwell janell 12-23 (Same as: l 08:39: Zofran) MEDICATION WASTE Product Size: 4 mg Product Wasted: ___ mg Saline 2018-11 No Notes: Memoria Flush 0.9% 12-23 (Same as: l 08:39: BD Hegins Posiflush) Hydralazine 2018-11 Yes 50 mg = [...] ferrous 2018-11 Yes 325 mg = 1 Maxewll janell sulfate 325 1-28 tab, PO, l [...] trini Oral Tablet 00 tab, 3 Refill(s) Hydralazine 2018-11 Yes 50 mg = 1 M emoria Hydrochlori 1-28 tab, PO, l de 50 MG 14:00: TID, # 90 Herm trini Oral Tablet 00 tab, 3 Refill(s) ferrous 2018-11 Yes 325 mg = 1 Maxwell janell sulfate 325 1-28 tab, PO, l mg oral 14:00: Daily, # Matthew n enteric 00 30 tab, 0 coated Refill(s) tablet ferrous 2018-11 Yes 325 mg = 1 [...] Name Observation Time Observation Value Comments Source Heart rate 2023-09-13 17:50:00 91 /min [facility] Oxygen saturation in 2023-09-13 17:50:00 99 /min [facility] Arterial blood by [facility] Pulse oximetry Branch Systolic blood 2023-09-13 17:00:00 136 mm[Hg] Diony tijerinay pressure [facility] Diastolic blood 2023-09-13 17:00:00 73 mm[Hg] [facility] Body temperature 2023-09-13 17:00:00 36.11 Ping [facility] Respiratory rate 2023-09-13 17:00:00 18 /min [facility] Body height 2023-09-13 15:21:00 162.6 cm [facility] Body weight 2023-09-13 15:21:00 65.772 kg [facility] BMI 2023-09-13 15:21:00 24.89 kg/m2 [facility] Systolic blood 2023-05-26 16:41:00 187 mm[Hg] [facility] Diastolic blood 2023-05-26 16:41:00 86 mm[Hg] [facility] Heart rate 2023-05-26 16:41:00 72 /min [facility] Oxygen saturation in 2023-05-26 16:41:00 94 /min [facility] Arterial blood by [place] [employer] denae Pulse oximetry Branch Body temperature 2023-05-26 16:40:00 36.11 Ping [facility] Respiratory rate 2023-05-26 16:40:00 18 /min [facility] Body height 2023-05-26 00:23:00 162.6 cm [facility] Body weight 2023-05-24 18:05:00 66 kg [facility] BMI 2023-05-24 18:05:00 24.98 kg/m2 [facility] Systolic blood 2022-10-25 17:47:00 166 mm[Hg] [facility] Diastolic blood 2022-10-25 17:47:00 77 mm[Hg] [facility] Heart rate 2022-10-25 17:47:00 92 /min [facility] Body temperature 2022-10-25 17:47:00 36.33 Ping [facility] Respiratory rate 2022-10-25 17:47:00 20 /min [facility] Oxygen saturation in 2022-10-25 17:47:00 99 /min [facility] Arterial blood by [place] [employer] denae Pulse oximetry Branch Body weight 2022-10-25 01:12:00 63.4 kg [facility] [place] [facility] BMI 2022-10-25 01:12:00 23.99 kg/m2 [facility] Body height 2022-10-19 22:02:00 162.6 cm [facility] Systolic blood 2022-04-10 21:08:00 195 mm[Hg] [facility] Diastolic blood 2022-04-10 21:08:00 97 mm[Hg] [facility] Heart rate 2022-04-10 21:08:00 80 /min [facility] Body temperature 2022-04-10 21:08:00 36.67 Ping [facility] Respiratory rate 2022-04-10 21:08:00 18 /min [facility] Oxygen saturation in 2022-04-10 21:08:00 93 /min [facility] Arterial blood by [facility] Pulse oximetry Branch Body weight 2022-04-09 19:34:00 62 kg [facility] BMI 2022-04-09 19:34:00 23.46 kg/m2 [facility] Body height 2022-04-09 15:28:00 162.6 cm [facility] Systolic blood 2022-10-25 17:47:00 166 mm[Hg] [facility] Diastolic blood 2022-10-25 17:47:00 77 mm[Hg] [facility] Heart rate 2022-10-25 17:47:00 92 /min [facility] Body temperature 2022-10-25 17:47:00 36.33 Ping [facility] Respiratory rate 2022-10-25 17:47:00 20 /min [facility] Oxygen saturation in 2022-10-25 17:47:00 99 /min [facility] Arterial blood by [facility] Pulse oximetry Branch Body weight 2022-10-25 01:12:00 63.4 kg [facility] BMI 2022-10-25 01:12:00 23.99 kg/m2 [facility] Body height 2022-10-19 22:02:00 162.6 cm [facility] Respitory Rate 2019-10-27 14:00:00 Reena Browne Respitory Rate 2019-10-27 13:00:00 Reena Browne Systolic (mm Hg) 2019-10-27 13:00:00 Maxwell rial González Diastolic (mm Hg) 2019-10-27 13:00:00 Mem orial González Respitory Rate 2019-10-27 12:00:00 Memori al Hegins Systolic (mm Hg) 2019-10-27 12:00:00 Maxwell rial Hegins Diastolic (mm Hg) 2019-10-27 12:00:00 Mem orial Hegins Systolic (mm Hg) 2019-10-27 10:00:00 Maxwell rial González Diastolic (mm Hg) 2019-10-27 10:00:00 Mem orial Hegins Height 2019-10-26 11:42:00 162.56 cm [facility] Height 2019-10-25 11:00:00 162.56 cm [facility] Height 2019-10-24 10:55:00 162.56 cm [facility] Temperature Oral (F) 2019-10-23 13:57:00 100.3 F [facility] Weight 2019-10-23 08:43:00 [facility] BMI Calculated 2019-10-23 08:43:00 Reena al Hegins Procedures Procedure Date / Time Performing Source Performed Clinician EKG-12 LEAD 2023-09-13 Kayley Jama [facility] 17:39:34 Medical Branch XR CHEST 1 VW 2023-09-13 Kayley Jama [facility] 15:57:41 Medical Branch XR SHOULDER 2+ VW RIGHT 2023-09-13 Kayley Jama [facility] 15:57:41 Medical Branch LIPASE 2023-09-13 Kayley Jama [facility] 15:45:00 Medical Branch MAGNESIUM 2023-09-13 Kayley Jama [facility] 15:45:00 Medical Branch TROPONIN I 2023-09-13 Kayley Jama [facility] 15:45:00 Medical Branch COMP. METABOLIC PANEL ([id number]) 2023-09-13 Kayley Jama [facility] 15:45:00 Medical Branch CBC WITH DIFF 2023-09-13 Kayley Jama [facility] 15:45:00 Medical Branch AC PANEL 21 + LACTIC ACID 2023-09-13 Kayley Jama [facility] 15:45:00 Medical Branch REFERRAL- REQUEST/RESPONSE 2023-08-21 Doctor Unassigned, [facility] 05:01:00 [facility] [id number] 2023-08-05 [facility] 00[facility]00:00 [facility] [id number] 2023-08-05 [facility]:00 [facility] [id number] 2023-08-05 [facility]05 [facility] 00:00:00 [facility] [id number] 2023-08-05 [facility]00 [facility] [id number] 2023-08-05 [facility] [id number] 2023-08-05 [facility] 00:00:00 [facility] [id number] 2023-08-03 [facility] 00:00:00 [facility] [id number] 2023-08-03 [facility]05 [facility] 00:00:00 [facility] [id number] 2023-08-01 [facility]05 [facility] 00:00:00 [facility] [id number] 2023-08-01 [facility]05 [facility] 00:00:00 [facility] [id number] 2023-07-15 PER [facility] 00:00:00 [facility] [id number] 2023-07-13 [facility]NOTE 2] [facility] 00:00:00 [facility] EXTERNAL PROVIDER RECORDS 2023-06-04 Doctor Unassigned, [facility] 05:01:00 [facility] POCT GLUCOSE (AUTOMATED) 2023-05-26 Kirk Rodriguez [facility] 15:14:00 Medical Branch POCT GLUCOSE (AUTOMATED) 2023-05-26 Kirk Rodriguez [facility] 02:01:00 Medical Branch POCT GLUCOSE (AUTOMATED) 2023-05-25 Kirk Rodriguez [facility] 22:06:00 [facility] POCT GLUCOSE (AUTOMATED) 2023-05-25 Kirk Rodriguez [facility] 17:05:00 [facility] POCT GLUCOSE (AUTOMATED) 2023-05-25 Kirk Rodriguez [facility] 15:37:00 Medical Branch PHOSPHORUS 2023-05-25 [facility] [place] 07:40:00 [facility] MAGNESIUM 2023-05-25 [facility] [place] 07:40:00 [facility] BASIC METABOLIC PANEL (NA, K, 2023-05-25 Francia Mccarty [facility] CL, CO2, GLUCOSE, BUN, 07:40:00 [facility] CREATININE, [place]) PHENYTOIN FREE 2023-05-25 Bibiana [facility] [place] 07:40:00 Medical [facility] CBC WITH DIFF 2023-05-25 Bibiana [facility] [place] 07:40:00 [facility] POCT GLUCOSE (AUTOMATED) 2023-05-25 Kirk Rodriguez [facility] 01:27:00 [facility] Branch POCT GLUCOSE (AUTOMATED) 2023-05-25 Kirk Rodriguez [facility] 01:11:00 [facility] POCT GLUCOSE (AUTOMATED) 2023-05-24 Kirk Rodriguez [facility] 22:11:00 [facility] BASIC METABOLIC PANEL (NA, K, 2023-05-24 Arnav Pineda [facility] CL, CO2, GLUCOSE, BUN, 05:10:00 [facility] CREATININE, CA) PHENYTOIN FREE 2023-05-24 Arnav Pineda [facility] exas 05:10:00 [facility] EXTRA TUBE LAV 2023-05-24 Kirk Rodriguez [facility] 05:10:00 [facility] EXTRA TUBE LT. GREEN 2023-05-24 Kirk Rodriguez [facility] 05:10:00 [facility] POCT GLUCOSE (AUTOMATED) 2023-05-24 Kirk Rodriguez [facility] 02:11:00 [facility] POCT GLUCOSE (AUTOMATED) 2023-05-23 Kirk Rodriguez [facility] 22:26:00 [facility] MR BRAIN W WO CONTRAST 2023-05-23 [facility] 21:07:00 [facility] HB ECG ROUTINE & RHYTHM STRIP 2023-05-23 Francia Mccarty [facility] 17:04:19 [facility] [place] POCT GLUCOSE (AUTOMATED) 2023-05-23 Kirk Rodriguez [facility] 17:00:00 [facility] POCT GLUCOSE (AUTOMATED) 2023-05-23 Kirk Rodriguez [facility] 13:19:00 [facility] LACTIC ACID WHOLE BLOOD 2023-05-23 Francia Mccarty [facility] 12:48:00 Medical Branch LACTATE DEHYDROGENASE 2023-05-23 Bibiana [facility] 12:38:00 [facility] TROPONIN I 2023-05-23 [facility] 12:38:00 [facility] MAGNESIUM 2023[facility]05-[facility] 09:58:00 [facility] TROPONIN I 2023-05-23 [facility] 09:58:00 [facility] BASIC METABOLIC PANEL (NA, K, 2023-05-[address] [facility], CO2, GLUCOSE, BUN, 09:58:00 [facility] CREATININE, [place]) CBC WITH DIFF 2023-05-23 [facility] xa 09:58:00 [facility] POCT GLUCOSE (AUTOMATED) 2023-05-23 Kirk Rodriguez [facility] 01:18:00 Medical Branch POCT GLUCOSE (AUTOMATED) 2023-05-22 Kirk Rodriguez [facility] 21:03:00 [facility] HEPATITIS B SURFACE ANTIBODY 2023-05-22 Keanu Barrett [facility] 19:24:00 [facility] HEPATITIS B SURFACE ANTIGEN 2023-05-22 Keanu Barrett [facility] 19:24:00 [facility] TROPONIN I 2023-05-22 [facility] 16:32:00 [facility] POCT GLUCOSE (AUTOMATED) 2023-05-22 Kirk Rodriguez [facility] 16:30:00 [facility] TRANSTHORACIC ECHO (TTE) 2023-05-22 Cody Wilson [facility] COMPLETE 13:01:31 [facility] POCT GLUCOSE (AUTOMATED) 2023-05-22 Kirk Rodriguez [facility] 12:48:00 Medical Branch BLOOD CULTURE SCREEN 2023-05-22 [facility] 08:58:00 [facility] PHOSPHORUS 2023-05-22 [facility] 08[facility]58:00 Coral [facility] MAGNESIUM 2023-05-22 [facility] 08:58:00 [facility] TROPONIN I 2023-05-22 [facility] 08:58:00 [facility] THYROID STIMULATING HORMONE 2023-05-22 Hailey Patiño [facility] 08:58:00 [facility] BASIC METABOLIC PANEL (NA, K, 2023-05-22 [place], CO2, GLUCOSE, BUN, 08:58:00 [facility] CREATININE, [place]) CBC WITHOUT DIFF 2023-05-22 [facility] 08:58:00 [facility] TROPONIN I 2023-05-22 David [facility] exas 03:36:00 Medical Branch XR KUB 2023-05-22 [facility] 03:31:00 [facility] POCT GLUCOSE (AUTOMATED) 2023-05-22 Kirk Rodriguez [facility] 02:28:00 [facility] CT ANGIOGRAM HEAD 2023-05-22 [facility] 02:09:[address] [facility] [address] HEAD WO CONTRAST 2023-05-22 Hailey Patiño [facility] 02:09:03 [facility] CT ANGIOGRAM NECK 2023-05-22 [facility] 02:09:[address] [facility] [address] STROKE PERFUSION W 2023-05-22 [facility] CONTRAST 02:09:03 [facility] MRSA / MSSA SCREEN BY PCR, 2023-05-22 Andrews Remberto [facility] NARES 02:09:00 [facility] AC PANEL 20 + LACTIC ACID 2023-05-22 [facility] 01:15:00 [facility] VITAMIN B6, PLASMA 2023-05-22 David [facility] 01:11:00 Medical Branch PHENYTOIN FREE 2023-05-22 [facility] xa 01:11:00 [facility] EXTRA TUBE LAV 2023-05-22 Kirk Rodriguez [facility] 01:11:00 Medical Branch EXTRA TUBE ORANGE 2023-05-22 Kirk Rodriguez [facility] 01:11:00 [facility] VITAMIN B1 (THIAMINE), WHOLE 2023-05-22 [facility] Hailey [facility] BLOOD 01:11:00 [facility] XR CHEST 1 VW 2023-05-21 [facility] 23:48:00 [facility] HB ECG ROUTINE & RHYTHM STRIP 2023-05-21 [facility] 23:22:56 [facility] PHOSPHORUS 2023-05-21 [facility] 22:34:00 [facility] CREATINE KINASE 2023-05-21 [facility] exas 22:34:00 [facility] MAGNESIUM 2023-05-21 [facility] 22:34:00 [facility] AMMONIA, PLASMA 2023-05-21 [facility] 22:34:00 [facility] VITAMIN B12, LEVEL 2023-05-21 [facility] 22:34:00 [facility] FOLATE 2023-05-21 [facility] 22:34:00 [facility] TROPONIN I 2023-05-21 [facility] 22:34:00 [facility] HEPATIC FUNCTION PANEL 2023-05-21 Fede Hernandez [facility] ([id number]) (ALB,T.PRO,BILI 22:34:00 [facility] T,BU/BC,ALT,AST,ALK PHOS) BASIC METABOLIC PANEL (NA, K, 2023-05-21 [facility] CL, CO2, GLUCOSE, BUN, 22:34:00 [facility] CREATININE, [place]) LIPID PANEL ([id number])(TOTAL 2023-05-21 Cody Wilson [facility] CHOLESTEROL, TRIGLYCERIDES, 22:34:00 [facility] HDL) CBC WITH DIFF 2023-05-21 [facility] 22:34:00 [facility] GLYCOSYLATED HEMOGLOBIN (A1C) 2023-05-21 Katie, Christianson [facility] 22:34:00 [facility] POCT GLUCOSE(AGE >30DAYS) 2023-05-21 Hailey Patiño [facility] 22:10:00 [facility] POCT GLUCOSE (AUTOMATED) 2023-05-21 Cody Camara [facility] 21:37:00 [facility] [id number] 2023-02-15 [facility].01 [facility] 00:00:00 [facility] [id number] 2023-02-13 [place].01 [facility] 00:00:00 [facility] [id number] 2022-12-19 MOUTA [facility] 00:00:00 [facility] [id number] 2022-12-18 YOIN [facility] 00:00:00 [facility] [id number] 2022-12-17 MOUTA [facility] 00:00:00 [facility] [id number] 2022-12-14 MOUTA [facility] 00:00:00 [facility] [id number] 2022-12-12 MOUTA [facility] 00:00:00 [facility] [id number] 2022-12-10 MOUTA [facility] 00:00:00 [facility] [id number] 2022-12-07 MOUTA [facility] 00:00:00 [facility] AUTHORIZATION FOR RELEASE OF 2022-11-21 Doctor [facility], [facility] PHI 06:01:00 [facility] AUTHORIZATION FOR RELEASE OF 2022-11-01 Doctor Unassigned, [facility] PHI 06:01:00 [facility] AUTHORIZATION FOR RELEASE OF 2022-10-30 Doctor Unassigned, [facility] PHI 06:01:00 [facility] POCT GLUCOSE (AUTOMATED) 2022-10-25 Fede Perales [facility] 14:38:00 [facility] Branch POCT GLUCOSE (AUTOMATED) 2022-10-25 Fede Perales [facility] 14:38:00 Medical Branch POCT GLUCOSE (AUTOMATED) 2022-10-25 Fede Perales [facility] 10:21:00 Medical Branch POCT GLUCOSE (AUTOMATED) 2022-10-25 Fede Perales [facility] 10:21:00 Medical Branch POCT GLUCOSE (AUTOMATED) 2022-10-25 Perales, [facility] 07:04:00 Medical Branch POCT GLUCOSE (AUTOMATED) 2022-10-25 Perales, [facility] 07:04:00 Medical Branch POCT GLUCOSE (AUTOMATED) 2022-10-25 Perales, [facility] 02:10:00 Medical Branch POCT GLUCOSE (AUTOMATED) 2022-10-25 Perales, [facility] 02:10:00 Medical Branch POCT GLUCOSE (AUTOMATED) 2022-10-24 Perales, [facility] 17:47:00 Medical Branch POCT GLUCOSE (AUTOMATED) 2022-10-24 Perales, [facility] 17:47:00 Medical [place] POCT GLUCOSE (AUTOMATED) 2022-10-24 Perales, [facility] 15:30:00 Medical [place] POCT GLUCOSE (AUTOMATED) 2022-10-24 Perales, [facility] 15:30:00 [facility] PHOSPHORUS 2022-10-24 Osmani [facility] 10:49:00 [facility] BASIC METABOLIC PANEL (NA, K, 2022-10-24 Osmani [facility] CL, CO2, GLUCOSE, BUN, 10:49:00 [facility] CREATININE, CA) MAGNESIUM 2022-10-24 Osmani [facility] 10:49:00 [facility] CBC WITHOUT DIFF 2022-10-24 Osmani [facility] 10:49:00 [facility] PHOSPHORUS 2022-10-24 Osmani [facility] 10:49:00 [facility] MAGNESIUM 2022-10-24 Osmani [facility] 10:49:00 [facility] BASIC METABOLIC PANEL (NA, K, 2022-10-24 Cameron Keen [facility] CL, CO2, GLUCOSE, BUN, 10:49:00 [facility] CREATININE, CA) CBC WITHOUT DIFF 2022-10-24 Osmani [facility] 10:49:00 [facility] POCT GLUCOSE (AUTOMATED) 2022-10-24 Diaz, [facility] 10:07:00 Medical Branch POCT GLUCOSE (AUTOMATED) 2022-10-24 Perales, [facility] 10:07:00 Medical Branch POCT GLUCOSE (AUTOMATED) 2022-10-24 Perales, [facility] 05:41:00 Medical Branch POCT GLUCOSE (AUTOMATED) 2022-10-24 Perales, [facility] 05:41:00 Medical Branch POCT GLUCOSE (AUTOMATED) 2022-10-24 Perales, [facility] 03:16:00 Medical Branch POCT GLUCOSE (AUTOMATED) 2022-10-24 Perales, [facility] 03:16:00 Medical Branch POCT GLUCOSE (AUTOMATED) 2022-10-23 Perales, [facility] 23:16:00 Medical Branch POCT GLUCOSE (AUTOMATED) 2022-10-23 Perales, [facility] 23:16:00 Medical Branch POCT GLUCOSE (AUTOMATED) 2022-10-23 Perales, [facility] 20:22:00 Medical Branch POCT GLUCOSE (AUTOMATED) 2022-10-23 Perales, [facility] 20:22:00 Medical Branch POCT GLUCOSE (AUTOMATED) 2022-10-23 Perales, [facility] 14:50:00 Medical Branch POCT GLUCOSE (AUTOMATED) 2022-10-23 Perales, [facility] 14:50:00 Medical Branch PHOSPHORUS 2022-10-23 Osmani [facility] 13:53:00 [facility] BASIC METABOLIC PANEL (NA, K, 2022-10-23 Cameron Keen [facility] CL, CO2, GLUCOSE, BUN, 13:53:00 [facility] ran CREATININE, CA) MAGNESIUM 2022-10-23 Osmani [facility] 13:53:00 [facility] CBC WITHOUT DIFF 2022-10-23 Osmani [facility] 13:53:00 [facility] PHOSPHORUS 2022-10-23 Osmani [facility] 13:53:00 [facility] MAGNESIUM 2022-10-23 Osmani [facility] 13:53:00 [facility] BASIC METABOLIC PANEL (NA, K, 2022-10-23 Cameron Keen [facility] CL, CO2, GLUCOSE, BUN, 13:53:00 [facility] CREATININE, CA) CBC WITHOUT DIFF 2022-10-23 Osmani [facility] [place] 13:53:00 [facility] POCT GLUCOSE (AUTOMATED) 2022-10-23 Perales, [facility] 10:27:00 Medical Branch POCT GLUCOSE (AUTOMATED) 2022-10-23 Perales, [facility] 10:27:00 Medical Branch POCT GLUCOSE (AUTOMATED) 2022-10-23 Perales, [facility] 06:01:00 Medical Branch POCT GLUCOSE (AUTOMATED) 2022-10-23 Perales, [facility] 06:01:00 Medical [place] POCT GLUCOSE (AUTOMATED) 2022-10-23 Perales, [facility] 02:30:00 Medical Branch POCT GLUCOSE (AUTOMATED) 2022-10-23 Perales, [facility] 02:30:00 Medical Branch POCT GLUCOSE (AUTOMATED) 2022-10-22 Perales, [facility] 23:10:00 Medical Branch POCT GLUCOSE (AUTOMATED) 2022-10-22 Perales, [facility] 23:10:00 Medical Branch POCT GLUCOSE (AUTOMATED) 2022-10-22 Perales, [facility] 18:38:00 Medical Branch POCT GLUCOSE (AUTOMATED) 2022-10-22 Perales, [facility] 18:38:00 Medical Branch POCT GLUCOSE (AUTOMATED) 2022-10-22 Perales, [facility] 13:45:00 Medical Branch POCT GLUCOSE (AUTOMATED) 2022-10-22 Perales, [facility] 13:45:00 Medical Branch PHOSPHORUS 2022-10-22 Osmani [facility] [place] 10:37:00 [facility] BASIC METABOLIC PANEL (NA, K, 2022-10-22 Cameron Keen [facility] CL, CO2, GLUCOSE, BUN, 10:37:00 [facility] CREATININE, CA) MAGNESIUM 2022-10-22 Osmani [facility] [place] 10:37:00 [facility] CBC WITHOUT DIFF 2022-10-22 [facility] 10:37[facility]00 [facility] FERRITIN SERUM 2022-10-22 [facility] 10:37:00 [facility] PHOSPHORUS 2022-10-22 Osmani [facility] 10:37:00 [facility] MAGNESIUM 2022-10-22 [facility] 10:37:00 [facility] FERRITIN SERUM 2022-10-22 [facility] 10:37:00 [facility] BASIC METABOLIC PANEL (NA, K, 2022-10-22 [facility] CL, CO2, GLUCOSE, BUN, 10:37:00 [facility] ran CREATININE, CA) CBC WITHOUT DIFF 2022-10-22 [facility] 10:37:00 [facility] POCT GLUCOSE (AUTOMATED) 2022-10-22 Diaz [facility] 10:32:00 [facility] POCT GLUCOSE (AUTOMATED) 2022-10-22 Diaz [facility] 10:32:00 [facility] POCT GLUCOSE (AUTOMATED) 2022-10-22 Diaz [facility] 07:10:00 [facility] POCT GLUCOSE (AUTOMATED) 2022-10-22 Diaz [facility] 07:10:00 [facility] POCT GLUCOSE (AUTOMATED) 2022-10-22 Diaz [facility] 03:06:00 [facility] POCT GLUCOSE (AUTOMATED) 2022-10-22 Diaz [facility] 03:06:00 [facility] ELECTROENCEPHALOGRAM 2022-10-22 [facility] 00:[facility]00 [facility] ELECTROENCEPHALOGRAM 2022-10-22 [facility] 00:00:00 [facility] POCT GLUCOSE (AUTOMATED) 2022-10-21 Diaz [facility] 23:04:00 [facility] POCT GLUCOSE (AUTOMATED) 2022-10-21 Diaz [facility] 23:04:00 [facility] POCT GLUCOSE (AUTOMATED) 2022-10-21 Diaz [facility] 18:42:00 Medical [place] POCT GLUCOSE (AUTOMATED) 2022-10-21 Diaz [facility] 18:42:00 Medical Branch PHENYTOIN FREE 2022-10-21 Osmani [facility] 17:17:00 [facility] BASIC METABOLIC PANEL (NA, K, 2022-10-21 Cameron Keen [facility] CL, CO2, GLUCOSE, BUN, 17:17:00 [facility] ran CREATININE, CA) BASIC METABOLIC PANEL (NA, K, 2022-10-21 Cameron Keen [facility] [place] CL, CO2, GLUCOSE, BUN, 17:17:00 [facility] ran CREATININE, CA) PHENYTOIN FREE 2022-10-21 Osmani [facility] 17:17:00 [facility] POCT GLUCOSE (AUTOMATED) 2022-10-21 Diaz [facility] 14:59:00 Medical Branch POCT GLUCOSE (AUTOMATED) 2022-10-21 Diaz [facility] 14:59:00 [facility] PHOSPHORUS 2022-10-21 Osmani [facility] 12:22:00 [facility] BASIC METABOLIC PANEL (NA, K, 2022-10-21 Cameron Keen [facility] CL, CO2, GLUCOSE, BUN, 12:22:00 [facility] ran CREATININE, CA) MAGNESIUM 2022-10-21 Osmani [facility] 12:22:00 [facility] PHOSPHORUS 2022-10-21 Osmani [facility] 12:22:00 [facility] MAGNESIUM 2022-10-21 Osmani [facility] 12:22:00 [facility] BASIC METABOLIC PANEL (NA, K, 2022-10-21 [facility], CO2, GLUCOSE, BUN, 12:22:00 [facility] ran CREATININE, CA) CBC WITHOUT DIFF 2022-10-21 Osmani [facility] 11:33:00 [facility] CBC WITHOUT DIFF 2022-10-21 Osmani [facility] 11:33:00 [facility] POCT GLUCOSE (AUTOMATED) 2022-10-21 Diaz [facility] 11:32:00 Medical Branch POCT GLUCOSE (AUTOMATED) 2022-10-21 Diaz [facility] 11:32:00 Medical Branch POCT GLUCOSE (AUTOMATED) 2022-10-21 Perales, [facility] 06:16:00 Medical Branch POCT GLUCOSE (AUTOMATED) 2022-10-21 Perales, [facility] 06:16:00 Medical Branch POCT GLUCOSE (AUTOMATED) 2022-10-21 Perales [facility] 02:59:00 Medical Branch POCT GLUCOSE (AUTOMATED) 2022-10-21 Diaz [facility] 02:59:00 Medical Branch DERMATOPATHOLOGY TISSUE EXAM 2022-10-21 Saurav [facility] 00:00:00 Medical Branch DERMATOPATHOLOGY TISSUE EXAM 2022-10-21 Saurav [facility] 00:00:00 Medical Branch POCT GLUCOSE (AUTOMATED) 2022-10-20 Diaz [facility] 22:58:00 Medical Branch POCT GLUCOSE (AUTOMATED) 2022-10-20 Diaz [facility] 22:58:00 Medical [place] BASIC METABOLIC PANEL (NA, K, 2022-10-20 Cameron Keen [facility] CL, CO2, GLUCOSE, BUN, 20:35:00 [facility] CREATININE, CA) PHOSPHORUS 2022-10-20 [facility] 20:35:00 Medical Branch PHOSPHORUS 2022-10-20 [facility] 20:35:00 Medical Branch BASIC METABOLIC PANEL (NA, K, 2022-10-20 Cameron Keen [facility] CL, CO2, GLUCOSE, BUN, 20:35:00 [facility] CREATININE, CA) POCT GLUCOSE (AUTOMATED) 2022-10-20 Perales [facility] 19:35:00 Medical Branch POCT GLUCOSE (AUTOMATED) 2022-10-20 Diaz [facility] 19:35:00 Medical Branch TROPONIN I 2022-10-20 Osborne [facility] 18:22:00 Medical Branch TROPONIN I 2022-10-20 [facility] 18:22:00 [facility] BASIC METABOLIC PANEL (NA, K, 2022-10-20 [facility]io Guard[facility] [place] CL, CO2, GLUCOSE, BUN, 12:30:00 [facility] [place] CREATININE, CA) MAGNESIUM 2022-10-20 [facility] [place] 12:30:00 Medical Branch PHOSPHORUS 2022-10-20 [facility] 12:30:00 Medical Branch TROPONIN I 2022-10-20 [facility] 12:30[facility]00 [facility] PHOSPHORUS 2022-10-20 [facility] 12:30:00 Medical Branch MAGNESIUM 2022-10-20 [facility] 12:30:00 Medical Branch TROPONIN I 2022-10-20 [facility] 12:30:00 [facility] BASIC METABOLIC PANEL (NA, K, 2022-10-20 [facility]io [facility], CO2, GLUCOSE, BUN, 12:30:00 Medical B ran CREATININE, CA) CBC WITH DIFF 2022-10-20 [facility] 10:21:00 Medical Branch CBC WITH DIFF 2022-10-20 [facility] 10:21:00 Medical Branch POCT GLUCOSE (AUTOMATED) 2022-10-20 [facility] 10:15:00 Medical Branch POCT GLUCOSE (AUTOMATED) 2022-10-20 [facility] 10:15:00 Medical Branch POCT GLUCOSE (AUTOMATED) 2022-10-20 [facility] 06:28:00 Medical Branch POCT GLUCOSE (AUTOMATED) 2022-10-20 [facility] 06:28:00 [facility] BLOOD CULTURE SCREEN 2022-10-20 Osmani [facility] 04:49:00 [facility] BLOOD CULTURE SCREEN 2022-10-20 Osmani [facility] 04:49:00 [facility] BASIC METABOLIC PANEL (NA, K, 2022-10-20 Vinicio Guardado [facility] [place] CL, CO2, GLUCOSE, BUN, 04:48:00 Medical ran CREATININE, CA) TROPONIN I 2022-10-20 [facility] xa 04:48:00 Medical Branch N-TERMINAL PRO-BNP 2022-10-20 [facility] 04:48:00 Medical Branch EXTRA TUBE LT. GREEN 2022-10-20 [facility] 04:48:00 Medical Branch TROPONIN I 2022-10-20 [facility] xa 04:48:00 [facility] BASIC METABOLIC PANEL (NA, K, 2022-10-20 [facility], CO2, GLUCOSE, BUN, 04:48:00 Medical [facility] CREATININE, CA) N-TERMINAL PRO-BNP 2022-10-20 [facility] 04:48:00 Medical Branch EXTRA TUBE LT. GREEN 2022-10-20 [facility] 04:48:00 Medical Branch HB ECG ROUTINE & RHYTHM STRIP 2022-10-20 Vinicio Guardado [facility] 04:10:33 Medical Branch HB ECG ROUTINE & RHYTHM STRIP 2022-10-20 [facility] 04:10:33 [facility] POCT GLUCOSE (AUTOMATED) 2022-10-20 [facility] 02:53:00 Medical Branch POCT GLUCOSE (AUTOMATED) 2022-10-20 [facility] 02:53:00 Medical Branch AC PANEL 20 + LACTIC ACID 2022-10-20 [facility] 02:07:00 Medical Branch AC PANEL 20 + LACTIC ACID 2022-10-20 [facility] 02:07:00 Medical Branch XR CHEST 1 VW 2022-10-20 Osmani, [facility] 02:05:00 [facility] XR CHEST 1 VW 2022-10-20 [facility] 02:05:00 [facility] VITAMIN B1 (THIAMINE), WHOLE 2022-10-20 [facility] 01:47:00 [facility] SALICYLATE 2022-10-20 [facility] 01:47:00 Medical Branch PHENYTOIN FREE 2022-10-20 [facility] 01:47[facility]00 [facility] SALICYLATE 2022-10-20 [facility] 01:47:00 [facility] PHENYTOIN FREE 2022-10-20 [facility] 01:47:00 [facility] VITAMIN B1 (THIAMINE), WHOLE 2022-10-20 Vinicio Guardado [facility] BLOOD 01:47:00 [facility] MRSA / MSSA SCREEN BY PCR, 2022-10-20 Keanu Barrett [facility] 00:53:00 [facility] MRSA / MSSA SCREEN BY PCR, 2022-10-20 Keanu Barrett [facility] 00:53:00 [facility] CBC WITH DIFF 2022-10-19 Osmani [facility] 23:35:00 [facility] COMP. METABOLIC PANEL (68767) 2022-10-19 Cameron Keen [facility] 23:35:00 [facility] GLYCOSYLATED HEMOGLOBIN (A1C) 2022-10-19 Cameron Keen [facility] 23:35:00 [facility] MAGNESIUM 2022-10-19 Osmani [facility] 23:35:00 [facility] PROTHROMBIN TIME / INR 2022-10-19 Cameron Keen [facility] 23:35:00 [facility] ACTIVATED PARTIAL THRMPLAS 2022-10-19 Cameron Keen [facility] 23:35:00 [facility] BLOOD CULTURE SCREEN 2022-10-19 Osmani [facility] 23:35:00 [facility] PHOSPHORUS 2022-10-19 Keanu Barrett [facility] 23:35:00 [facility] INTACT PTH CALCIUM GROUP 2022-10-19 Keanu Barrett [facility] 23:35:00 [facility] IRON PANEL 2022-10-19 Keanu Barrett [facility] 23:35:00 [facility] ETHANOL 2022-10-19 Geo [facility] xas 23:35:00 [facility] BETA HYDROXY-BUTYRATE 2022-10-19 [facility] 23:35:00 [facility] LIPID PANEL (90407)(TOTAL 2022-10-19 [facility] CHOLESTEROL, TRIGLYCERIDES, 23:35:00 [facility] HDL) BLOOD CULTURE SCREEN 2022-10-19 Osmani [facility] 23:35:00 [facility] PHOSPHORUS 2022-10-19 Keanu Barrett [facility] 23:35:00 [facility] MAGNESIUM 2022-10-19 Osmani [facility] 23:35:00 [facility] BETA HYDROXY-BUTYRATE 2022-10-19 [facility] 23[facility]35:00 [facility] COMP. METABOLIC PANEL (14832) 2022-10-19 Cameron Keen [facility] 23:35:00 [facility] LIPID PANEL (05232)(TOTAL 2022-10-19 [facility] CHOLESTEROL, TRIGLYCERIDES, 23:35:00 [facility] HDL) INTACT PTH CALCIUM GROUP 2022-10-19 Keanu Barrett [facility] 23:35:00 [facility] IRON PANEL 2022-10-19 Keanu Barrett [facility] 23:35:00 [facility] ETHANOL 2022-10-19 [facility] 23:35:00 [facility] CBC WITH DIFF 2022-10-19 Osmani [facility] 23:35:00 [facility] GLYCOSYLATED HEMOGLOBIN (A1C) 2022-10-19 Cameron Keen [facility] 23:35:00 [facility] PROTHROMBIN TIME / INR 2022-10-19 Cameron Keen [facility] 23:35:00 [facility] ACTIVATED PARTIAL THRMPLAS 2022-10-19 Cameron Keen [facility] 23:35:00 [facility] HB ECG ROUTINE & RHYTHM STRIP 2022-10-19 Cameron Keen [facility] 22:39:55 [facility] HB ECG ROUTINE & RHYTHM STRIP 2022-10-19 Cameron Keen [facility] 22:39:55 [facility] POCT GLUCOSE (AUTOMATED) 2022-04-10 [facility] 21:04:00 [facility] POCT GLUCOSE (AUTOMATED) 2022-04-10 Erica [facility] 16:39:00 [facility] POCT GLUCOSE (AUTOMATED) 2022-04-10 Erica [facility] 13:21:00 [facility] CBC WITH DIFF 2022-04-10 [facility] 09:55:00 [facility] Branch MAGNESIUM 2022-04-10 [facility] 09:55:00 [facility] Branch TROPONIN I 2022-04-10 [facility] 09:55:00 [facility] BASIC METABOLIC PANEL (NA, K, 2022-04-10 Krista Pu[facility] [place] CL, CO2, GLUCOSE, BUN, 09:55:00 [facility] [place] CREATININE, CA) POCT GLUCOSE (AUTOMATED) 2022-04-10 Erica [facility] 09:39:00 [facility] POCT GLUCOSE (AUTOMATED) 2022-04-10 Erica [facility] 05:44:00 [facility] POCT GLUCOSE (AUTOMATED) 2022-04-10 Erica [facility] 02:55:00 [facility] POCT GLUCOSE (AUTOMATED) 2022-04-09 Maddie Christianson [facility] 22:03:00 Medical Branch TROPONIN I 2022-04-09 Suresh [facility] xas 18:59:00 Medical Branch BASIC METABOLIC PANEL (NA, K, 2022-04-09 Cameron Thurman [facility] [place] CL, CO2, GLUCOSE, BUN, 18:59:00 [facility] [place] CREATININE, CA) POCT GLUCOSE (AUTOMATED) 2022-04-09 Gracie [facility] 16:56:00 Medical Branch TROPONIN I 2022-04-09 [facility] 14:42:00 [facility] Branch POCT GLUCOSE (AUTOMATED) 2022-04-09 Gracie [facility] 13:10:00 Medical Branch POCT GLUCOSE (AUTOMATED) 2022-04-09 [facility] 10:17:00 Medical Branch HB ECG ROUTINE & RHYTHM STRIP 2022-04-09 Suresh Mily [facility] 08:02:07 [facility] POCT GLUCOSE (AUTOMATED) 2022-04-09 [facility] 05:32:00 Medical Branch CBC WITH DIFF 2022-04-09 [facility] xa 05:22:00 Medical Branch PROTHROMBIN TIME / INR 2022-04-09 [facility] 05:22:00 Medical Branch MRSA / MSSA SCREEN BY PCR, 2022-04-09 [facility] NARES 05:22:00 Medical Branch PHOSPHORUS 2022-04-09 [facility] xas 05:22:00 Medical Branch CREATINE KINASE 2022-04-09 Sophia [facility] 05:22:00 Medical Branch MAGNESIUM 2022-04-09 [facility] xa 05:22:00 Medical Branch TROPONIN I 2022-04-09 [facility] xa 05:22:00 Medical Branch HEPATIC FUNCTION PANEL 2022-04-09 [facility] ([id number]) (ALB,T.PRO,BILI 05:22:00 Medical Branch T,BU/BC,ALT,AST,ALK PHOS) BASIC METABOLIC PANEL (NA, K, 2022-04-09 [facility], CO2, GLUCOSE, BUN, 05:22:00 [facility] [place] CREATININE, CA) PHENYTOIN FREE 2022-04-09 [facility] xa 05:22:00 Medical Branch Bilateral extraction of [facility] cataracts 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 Encounters Start End Encounter Admission Attending Care Care Encounter Source Date/Time Date/Time Type Type Clinicians Facility Department ID 2019-10-23 Inpatient U [facility] MED [id number] Mem [facility]ria 02:27:00 [facility] 2023-10-01 2023-10-01 Outpatient GC_[facility]_Tod PRIV PRIV [id number] [facility] 00:00:00 00:00:00 d_J [id number] Medica l 2023-10-01 2023-10-01 Outpatient GC_BAHC_Tod PRIV PRIV [id number] [facility] 00:00:00 00:00:00 d_J [id number] Medica l 2023-10-01 2023-10-01 Outpatient GC_BAHC_Tod PRIV PRIV [id number] [facility] 00:00:00 00:00:00 d_J [id number] Medica l 2023-09-26 2023-09-26 Outpatient GC_BAHC_Tod PRIV PRIV [id number] [facility] 00:00:00 00:00:00 d_J [id number] Medica l 2023-09-26 2023-09-26 Outpatient GC_BAHC_Tod PRIV PRIV [id number] [facility] 00:00:00 00:00:00 d_J [id number] Medica l 2023-09-26 2023-09-26 Outpatient GC_BAHC_Tod PRIV PRIV [id number] [facility] 00:00:00 00:00:00 d_J [id number] Medica l 2023-09-25 2023-09-25 Outpatient GC_BAHC_Tod PRIV PRIV [id number] [facility] 00:00:00 00:00:00 d_J [id number] Medica l 2023-09-16 2023-09-16 Outpatient GC_BAHC_Tod PRIV PRIV [id number] [facility] 00:00:00 00:00:00 d_J [id number] Medica l 2023-09-16 2023-09-16 Outpatient GC_BAHC_Tod PRIV PRIV [id number] [facility] 00:00:00 00:00:00 d_J [id number] Medica l 2023-09-13 2023-09-13 Emergency X WILEY KSSORAYA ERT [id number] [facility] 10:18:00 12:58:00 KAYLEY [facility] 2023-09-13 2023-09-13 Emergency Wiley [facility] [id number] [facility] 10:18:00 12:58:00 Kayley KELLEY [id number] [id number] [id number] [facility] 084 Branch 2023-08-21 2023-08-21 Orders Doctor SUSANNAH [id number] [facility] 00:00:00 00:00:00 Only Unassigned, FÉLIX [id number] [facility] [id number] [facility] 009 Branch 2023-07-31 2023-08-06 Inpatient EM Lachelle, [place] HCAMN TELE [id number] [facility] 18:19:00 10:42:00 06 [facility] 2023-07-31 2023-08-06 Inpatient EM Lachelle, [place] HCAMN TELE [id number] [facility] 18:19:00 10:42:00 06 [facility] 2023-07-31 2023-07-31 Outpatient Lachelle, [place] HCACL LABO G00 [id number] [facility] 22:50:00 22:50:00 41 [facility] 2023-07-13 2023-07-16 Inpatient EM Cricket, HCACL INTE.02 [id number] [facility] 18:21:00 16:58:00 Bhoobasim 25 [facility] 2023-06-04 2023-06-04 Orders Doctor SUSANNAH [id number] [facility] 00:00:00 00:00:00 Only Unassigned, FÉLIX 350.1.13.10 ity of [place] [facility] 4.2.7.2.[id number] [facility] [address] 2023-05-29 2023-05-29 Transition KATHLEEN MalikMarkie 1.2.840.114 [id number] Univers 00:00:00 00:00:00 of Care Angel HOFF 350.1.13.10 ity [place].[address] [place] [id number] [facility] 403 [address] 2023-05-21 2023-05-26 Inpatient X ROBERTO [facility] [id number] Univers 16:13:00 16:18:00 MARIBELL ity of [facility] 2023-05-21 2023-05-26 [facility] Cody Camara 1 .2.840.114 [id number] [facility] 16:13:00 16:18:00 Encounter Kirk RodriguezY 350.1.13. 10 ity of [facility] 4.2.7.2.[address] [place] [id number] [facility] 094 Branch 2023-02-11 2023-02-15 Inpatient EM Eunice, HCACL INTE.02 [id number] [facility] 23:19:00 20:01:00 Cristin 79 [facility] 2022-12-06 2022-12-20 Inpatient EM Brando, HCACL INTE [id number] [facility] 02:05:00 15:03:00 Taso 89 [facility] 2022-12-11 2022-12-11 Outpatient [facility] 00:00:00 00:00:00 [id number] 2022-11-21 2022-11-21 Orders Doctor DAVALOS 1.2.840.114 [id number] Univers 00:00:00 00:00:00 Only Unassigned, FÉLIX 350.1.13.10 ity of [facility] 4.2.7.2.686 [place] [id number] [address] 2022-11-01 2022-11-01 Orders Doctor DAVALOS 1.2.840.114 [id number] Univers 00:00:00 00:00:00 Only Unassigned, FÉLIX 350.1.13.10 ity of [facility] 4.2.7.2.686 [place] [id number] [address] 2022-10-30 2022-10-30 Orders Doctor DAVALOS 1.2.840.114 [id number] Univers 00:00:00 00:00:00 Only Unassigned, FÉLIX 350.1.13.10 ity of [facility] 4.2.7.2.686 [place] [id number] [address] 2022-10-26 2022-10-26 Transition MODESTA Malik 1.2.840.114 [id number] Univers 00:00:00 00:00:00 of Care Angel HOFF 350.1.13.10 [place]y [place].[address] [place] [id number] [facility] [address] 2022-10-19 2022-10-25 Inpatient U DIAZ, [facility] [id number] Univers 15:38:00 15:05:00 FEDE ity of [facility] 2022-10-19 2022-10-25 [facility] Chancetorieletitia Svetlana WILFRED 1.2.840. 114 [id number] Univers 15:38:00 15:05:00 Encounter Fede Perales 350.1.13.10 ity of [facility] 4.2.7.2.[id number] [facility] 0[address] 2022-10-23 2022-10-23 Travel 1.2.840.1 1.2.541.838 [id number] 1420 Univers 00:00:00 00:00:00 37606.1.1 350.1.13.10 ity of 3.104.2.7 4.[place].3.698 [place] .3.214864 084.8 Medica l .8 Branch 2022-10-19 2022-10-19 Travel 1.2.840.1 1.2.917.203 [id number] Univers 00:00:00 00:00:00 60903.1.1 350.1.13.10 ity of 3.104.2.[place]3.698 [place] .3.539673 084.8 Medica l .8 [place] 2022-10-04 2022-10-04 Telephone Team, [facility] 1.2.840.6 [id number] Univers 00:00:00 00:00:00 Health 16042.1.1 [place] .3.908780 Medica l .8 [place] 2022-08-24 2022-08-[address] [id number] [facility] 14:45:00 14:45:00 02 laverne Claudio 2022-08-24 2022-08-24 Outpatient MHIE MHIE [id number] [facility]oria 14:45:00 14:45:00 02 l Hegins 2022-07-24 2022-07-24 Outpatient MHIE MHIE [id number] Memoria 10:00:00 10:00:00 01 l Hegins 2022-07-24 2022-07-24 Outpatient MHIE MHIE [id number] [facility]oria 10:00:00 10:00:00 01 l Hegins 2022-07-12 2022-07-12 Outpatient MHIE MHIE [id number] Memoria 11:00:00 11:00:00 00 l Hegins 2022-07-12 2022-07-12 Outpatient MHIE MHIE [id number] Memoria 11:00:00 11:00:00 00 laverne Hegins 2022-06-11 2022-06-11 Outpatient ASHLEY CORONADO MEHOP 744 [place] 11:40:00 11:40:00 HN 0718 da [facility] 2022-04-11 2022-04-11 Transition MODESTA Malik 1.2.840.114 [id number] Univers 00:00:00 00:00:00 of Care Angel HOFF [facility].13.10 [facility] 4.2.7.2.686 [facility] [id number] [facility] [address] 2022-04-08 2022-04-10 Outpatient U ERICA KSSORAYA [facility] [id number] Univers 23:19:00 19:55:00 SARAH BETH ity [facility] 2022-04-08 2022-04-10 [facility] Randy Bowman 1.2.840.1 14 [id number] Univers 23:19:00 19:55:00 Encounter Maddie Christianson 350.1.13.10 ity [facility] 4.2.7.2.[address] [place] [id number] [facility] 094 Branch 2021-05-20 2021-05-20 Outpatient DMG DMG [id number] [facility] 11:00:00 11:00:00 0626 Medica l Group 2020-01-13 2020-01-13 Outpatient Eduardo-Sueo VFP VFP [id number] [id number] [facility] 07:13:00 07:13:00 _A_AH 38911 Family Practic e 2020-01-13 2020-01-13 Outpatient Eduardo-Sueo VFP VFP 792 [id number] [facility] 07:13:00 07:13:00 _A_AH 96030 Family Practic e 2020-01-13 2020-01-13 Outpatient Eduardo-Sueo VFP VFP [address] [place] [address] 07:13:00 07:13:00 _A_AH 41552 Family Practic e 2019-10-23 2019-10-27 Inpatient [facility] [id number] Memoria 08:27:00 16:10:[address] 2019-10-23 2019-10-27 Inpatient [facility] [id number] Memoria 08:27:00 16:10:00 r González [address] [place] [address] 2019-10-23 2019-10-27 [facility]135 [id number] 02:27:00 10:10:00 Trini Najera Results Test Description Test Time Test Comments Results Result Comments Source AC PANEL 21 + LACTIC ACID 2023-09-13 15:53:11 Test Item Value Reference Range Interpretation Comme nts PH (test code = 4646587738) 7.38 7.32-7.42 PCO2 PEREZ (test code = 41 See_Comment [Auto mated message] The 2095810633) system which ge nerated this result transmit vikki reference range: 41 - 51 mmHg. The reference range was not used to interpret th is result as normal/abnormal . PO2 PEREZ (test code = 34 See_Comment [Autom ated message] The 5246490118) system which ge nerated this result transmit vikki reference range: 25 - 40 mmHg. The reference range was not used to interpret th is result as normal/abnormal . HCO3 PEREZ (test code = 24 See_Comment [Auto mated message] The 6109188193) system which ge nerated this result transmit vikki reference range: 24 - 28 mEq/L. The reference range was not used to interpret th is result as normal/abnormal . AC VBE(BEAKER) (test code = -1.2 mEq/L 7465441057) THB PEREZ (test code = 11.5 g/dL 12.0-16.0 L 0884128083) %O2HB PEREZ (test code = 59.7 % 52.0-63.0 4764532292) %COHB PEREZ (test code = 0.5 % 0.0-1.5 2824665327) %METHB PEREZ (test code = 0.3 % 0.4-1.5 L 6058449495) VOL%O2 PEREZ (test code = 9.7 % 6.0-12.0 8344154512) NA (test code = 6570980341) 134 mmol/L 135-145 L K+ (test code = 0596519504) 4.2 mmol/L 3.5-5.0 AC CA IONZ (test code = 4.00 mg/dL 4.50-5.30 L 6071164239) GLUCOSE (test code = 390 mg/dL 70-110 H 4993901130) LACTIC ACID (test code = 1.38 mmol/L 0.50-2.20 1089148222) Lab Interpretation (test code = Abnormal 52015-8) [facility]00 Test Item Value Reference Range Interpretation Comments GLUBED (test code = GLUBED) 202 mg/dL 70-110 H [id number] 01:56:00 Test Item Value Reference Range Interpretation Comments GLUBED (test code = GLUBED) 127 mg/dL 70-110 H [id number] 01:56:00 Test Item Value Reference Range Interpretation Comments GLUBED (test code = GLUBED) 143 mg/dL 70-110 H BASIC METABOLIC [id number] 22:37:00 Test Item Value Reference Range Interpretation [...] code 8.8 mg/dl 8.0-10.5 N = CA) [id number] 21:23:00 Test Item Value Reference Range Interpretation Comments GLUBED (test code = GLUBED) 257 mg/dL 70-110 H [id number] 15:53:00 Test Item Value Reference Range Interpretation Comments GLUBED (test code = GLUBED) 344 mg/dL 70-110 H [id number] 07:33:00 Test Item Value Reference Range Interpretation Comments GLUBED (test code = GLUBED) 222 mg/dL 70-110 H BASIC METABOLIC [id number] 06:34:00 Test Item Value Reference Range Interpretation [...] code 8.5 mg/dl 8.0-10.5 N = CA) [id number] 00:28:00 Test Item Value Reference Range Interpretation Comments GLUBED (test code = GLUBED) 243 mg/dL 70-110 H [id number] 20:24:00 Test Item Value Reference Range Interpretation Comments GLUBED (test code = GLUBED) 184 mg/dL 70-110 H [id number] 17:01:00 Test Item Value Reference Range Interpretation Comments GLUBED (test code = GLUBED) 430 mg/dL 70-110 H [id number] 11:10:00 Test Item Value Reference Range Interpretation Comments GLUBED (test code = GLUBED) 361 mg/dL 70-110 H [id number] 08:12:00 Test Item Value Reference Range Interpretation Comments GLUBED (test code = GLUBED) 220 mg/dL 70-110 H BASIC METABOLIC [id number] 06:39:00 Test Item Value Reference Range Interpretation [...] code 8.3 mg/dl 8.0-10.5 N = CA) [id number] 06:39:00 Test Item Value Reference Range Interpretation Comments MAGNESIUM (test code = MAG) 2.2 mg/dl 1.8-2.4 N CBC W/AUTO [id number] 06:15:00 Test Item Value Reference Range Interpretation [...] = 0.00 X10 3uL 0.00-0.01 N NRBC#) [id number] 05:27:00 Test Item Value Reference Range Interpretation Comments GLUBED (test code = GLUBED) 278 mg/dL 70-110 H [id number] 01:25:00 Test Item Value Reference Range Interpretation Comments GLUBED (test code = GLUBED) 418 mg/dL 70-110 H [id number] 22:43:00 Test Item Value Reference Range Interpretation Comments GLUBED (test code = GLUBED) 553 mg/dL 70-110 HH [id number] 20:02:00 Test Item Value Reference Range Interpretation Comments GLUBED (test code = GLUBED) 451 mg/dL 70-110 H [id number] 16:44:00 Test Item Value Reference Range Interpretation Comments GLUBED (test code = GLUBED) 201 mg/dL 70-110 H [id number] 10:25:00 Test Item Value Reference Range Interpretation Comments GLUBED (test code = GLUBED) 327 mg/dL 70-110 H [id number] 09:09:00 Test Item Value Reference Range Interpretation Comments GLUBED (test code = GLUBED) 240 mg/dL 70-110 H THROMBOPLASTIN TIME [id number] 06:30:00 Test Item Value Reference Range Interpretation Comments THROMBOPLASTIN TIME 28.20 SECONDS 25.86-36.07 [facility] PARTIAL (test code = Therape utic Range - PTT) APTT of 48.8-80 .3 secondscorrelat es with plasma heparin concentration o f 0.2-0.4 u/mL COMPREHENSIVE METABOLIC [id number] 06:05:00 Test Item Value Reference Range Interpretation [...] for GFRby the [facility] on for Adults.The GFR will [...] 50.0-136.0 H TOTAL (test code = ALKP) [id number] 06:05:00 Test Item Value Reference Range Interpretation Comments MAGNESIUM (test code = MAG) 2.3 mg/dl 1.8-2.4 N CBC W/AUTO [id number] 05:48:00 Test Item Value Reference Range Interpretation [...] = 0.00 X10 3uL 0.00-0.01 N NRBC#) [id number] 01:15:00 Test Item Value Reference Range Interpretation Comments GLUBED (test code = GLUBED) 225 mg/dL 70-110 H [id number] 20:54:00 Test Item Value Reference Range Interpretation Comments GLUBED (test code = GLUBED) 341 mg/dL 70-110 H [id number] 17:59:00 Test Item Value Reference Range Interpretation Comments GLUBED (test code = GLUBED) 121 mg/dL 70-110 H [id number] 14:23:00 Test Item Value Reference Range Interpretation Comments GLUBED (test code = GLUBED) 238 mg/dL 70-110 H ACUTE HEPATITIS [id number] 10:42:00 Test Item Value Reference Range Interpretation Comments AB HEPATITIS A IGM NON REACTIVE NON REACT. Testing d one at (test code = INDEX CLEAR FORTUNE HAN ONAL HAVMAB) [facility] [address] [place] [address] 13656 AB HEPATITIS B >1000.0 mIU/mL See_Comment Status of Immunity SURFACE (test code Anti-HBs Level = HBSAB) --- I ncon sistent with Immunity 0.0 - 9.9Consistent w ith Immunity >9.9 [Automated mess age] The system [employer] generated this result transmit vikki reference range : Immunity>9.9. T he reference range was not used to interpret this result as normal/abnormal . AG HEPATITIS B NON REACTIVE NonReactive Testing done at SURFACE (test code INDEX CLEAR [place] [facility]AL = HBSAG) [facility] [address] [place] [address] 8[address] AB HEPATITIS B NON REACTIVE NON REACT. Testing done at CORE IGM (test INDEX CLEAR FORTUNE RE GIONAL code = HBCMAB) [facility] [address] [place] [address] 699[address] AB HEPATITIS C NON REACTIVE NON REACT. Testing done at (test code = INDEX CLEAR FORTUNE HAN ONAL HCVAB) [facility] [address] [place] [address] 09569 [id number] AB HEPATITIS B [id number] 10:42:00 Test Item Value Reference Range Interpretation Comments AB HEPATITIS B CORE Positive Negative A Performe d At: HD (test code = HBCAB) [facility] [address] [place], [place] [id number] paige Leach MD [phone] [id number] 09:12:00 Test Item Value Reference Range Interpretation Comments GLUBED (test code = GLUBED) 186 mg/dL 70-110 H BASIC METABOLIC [id number] 06:00:00 Test Item Value Reference Range Interpretation [...] code 8.6 mg/dl 8.0-10.5 N = CA) [id number] 05:31:00 Test Item Value Reference Range Interpretation Comments GLUBED (test code = GLUBED) 234 mg/dL 70-110 H [id number] 02:49:00 Test Item Value Reference Range Interpretation Comments GLUBED (test code = GLUBED) 468 mg/dL 70-110 H [id number] 01:32:00 Test Item Value Reference Range Interpretation Comments GLUBED (test code = GLUBED) 95 mg/dL 70-110 N [id number] 21:43:00 Test Item Value Reference Range Interpretation Comments GLUBED (test code = GLUBED) 267 mg/dL 70-110 H [id number] 12:24:00 Test Item Value Reference Range Interpretation Comments GLUBED (test code = GLUBED) 150 mg/dL 70-110 H [id number] 10:25:00 Test Item Value Reference Range Interpretation Comments GLUBED (test code = GLUBED) 146 mg/dL 70-110 H TROP-I HIGH [id number] 07:17:00 Test Item Value Reference Range Interpretation Comments TROP-I HIGH 857 ng/L 0-51 HH CAUTION: Units of the SENSITIVITY (test code curre nt TROPI-HS test = TROPIHS) methodology(ng/ L) differ from the prior test methodolog y (ng/mL) by afac tor of 1000. -------- -------- ---99th Percentile: Fem ales: 0 - 51 ng/L Males : 0 - 76 ng/LThese resul ts were obtained using [employer] EXL TnIHreagent. Re sults from different methodologies s hould not becompared to one another as daiana titative results may karrie y bymethod. BASIC METABOLIC [id number] 07:16:00 Test Item Value Reference Range Interpretation [...] the recommended for cassidy for GFRby the [facility] nal Kidney Foundati on for Adults.The GFR will not calculate if th e sex is unknown or if thepatient's ag e is <18 years. CREATININE (test 9.45 mg/dL 0.60-1.30 HH code = CREAT) ESTIMATED CREAT 5 mL/min >30 CLEARANCE (test code = ECRCL) CALCIUM (test code 7.4 mg/dl 8.0-10.5 L = CA) THROMBOPLASTIN TIME [id number] 07:16:00 Test Item Value Reference Range Interpretation Comments THROMBOPLASTIN TIME 41.70 SECONDS 25.86-36.07 H [facility] PARTIAL (test code = Therape utic Range - PTT) APTT of 48.8-80 .3 secondscorrelat es with plasma heparin concentration o f 0.2-0.4 u/mL CBC W/AUTO [id number] 06:54:00 Test Item Value Reference Range Interpretation [...] = 0.00 X10 3uL 0.00-0.01 N NRBC#) [id number] 05:22:00 Test Item Value Reference Range Interpretation Comments GLUBED (test code = GLUBED) 200 mg/dL 70-110 H AB HEPATITIS A [id number] 02:55:00 Test Item Value Reference Range Interpretation Comments AB HEPATITIS A IGM (test NON REACTIVE INDEX NON REACT. code = HAVMAB) AG HEPATITIS B [id number] 02:55:00 Test Item Value Reference Range Interpretation Comments AG HEPATITIS B SURFACE NON REACTIVE INDEX NonReactive (test code = HBSAG) AB HEPATITIS B CORE [id number] 02:55:00 Test Item Value Reference Range Interpretation Comments AB HEPATITIS B CORE IGM NON REACTIVE INDEX NON REACT. (test code = HBCMAB) AB HEPATITIS [id number] 02:55:00 Test Item Value Reference Range Interpretation Comments AB HEPATITIS C (test code NON REACTIVE INDEX NON REACT. = HCVAB) [id number] 01:39:00 Test Item Value Reference Range Interpretation Comments GLUBED (test code = GLUBED) 167 mg/dL 70-110 H COVID 19 Asymptomatic IH [id number] 23:24:00 Test Item Value Reference Range Interpretation Comments COVID 19 NEGATIVE NEGATIVE Negative result s should be Asymptomatic IH AG treated a s presumptive and (test code = ifinconsistent with COVNONPUIAG) clinical signs and symptoms, or ne cessaryfor patient managem ent, should be tested with an alternativemole cular assay. Negative results do not preclude KWCV-AkP-3tzvww tion and should not be u sed as the sole basis forp atient management deci sions. Negative result s should beconsidered in the context of a pa tient's recent exposure s,history, presence of cli nical signs and symptoms consistentwith COVID-19. TROP-I HIGH [id number] 23:02:00 Test Item Value Reference Range Interpretation Comments TROP-I HIGH 886 ng/L 0-51 HH CAUTION: Units of the SENSITIVITY (test code curre nt TROPI-HS test = TROPIHS) methodology(ng/ L) differ from the prior test methodolog y (ng/mL) by afac tor of 1000. -------- -------- ---99th Percentile: Fem ales: 0 - 51 ng/L Males : 0 - 76 ng/LThese resul ts were obtained using [employer] TnIHreagent. Re sults from different methodologies s hould not becompared to one another as daiana titative results may karrie y bymethod. CARDIAC ENZYMES [id number] 21:40:00 Test Item Value Reference Range Interpretation [...] 76 ng/LThese resul ts were obtained using [employer] TnIHreagent. Re sults from different methodologies s hould not becompared to one another as quantitative re sults may vary bymeth od. : 3PROTHROMBIN [id number] 21:18:00 Test Item Value Reference Range Interpretation Comments PROTHROMBIN TIME 11.5 SECONDS 9.9-12.8 N PATIENT (test code = PTP) INTERNATIONAL NORMAL 1.0 0.89-1.14 N THE INR IS TO BE USED RATIO (test code = ONLY FOR MONITORING INR) ORAL ANTICOAGULANTTH ERAPY. THE FOLLOWING A RE SUGGESTED RANGE S FROM THEBANNER ESTRELLA MEDICAL CENTERAN COL LEGE OF CHEST PHYSICIANS:GARCIA CATION INR VALUEPROPHY LAXIS OF VENOUS THROM BOSIS (ORTHOPEDIC ELIA JULIANA) 2.0 - 3.0PROPHY LAXIS OF VENOUS THROM BOSIS (OTHER THAN HIG H-RISK SURGERY) 2.0 - 3.0TREATMENT OF DEEP VEIN THROMBOSIS OR PULMONARY EMBOL ISM 2.0 - 3.0PREVENTION OF SYSTEMIC EMBOLI SM TISSUE HEART VA LVES 2.0 - 3.0 ACUTE MYOCARDIAL INFA RCTION (TO PREVENT SYS TEMIC EMBOLISM) 2.0 - 3.0 ACUTE MYOCARDIA L INFARCTION (TO PREVENT RECURRE NT INFARCT) 2.5 - 3.0 VALVULAR HEART DISEASE 2.0 - 3.0 ATRIA L FIBRILATION 2.0 - 3.0BILEAFLET MECHANICAL VALV E IN AORTIC POSITION 2.0 - 3.0MECHANICAL PROSTHETIC VALV ES (HIGH RISK) 2.5 - 3.5PRESENCE OF LUPUS ANTICOAGULANT O R ANTIPHOSPHOLIPI D ANTIBODIES 2.5 - 3.5 Specimen comments: IF NOT ALREADY DONE WITHIN LAST 24 HOURSTHROMBOPLASTIN TIME [id number] 21:18:00 Test Item Value Reference Range Interpretation Comments THROMBOPLASTIN TIME 29.40 SECONDS 25.86-36.07 N [facility] d Lab PARTIAL (test code = Faith mcqueenc Range - PTT) APTT of 48.8-80 .3 secondscorrelat es with plasma heparin concentration o f 0.2-0.4 u/mL Specimen comments: IF NOT ALREADY DONE WITHIN LAST 24 HOURS- XR CHEST 1 V 2023-07-31 21:01:00 [facility] : 1960 Sex: F FAX: Chelsea Larose MD [phone] [place]: St: ADM FAX: Chris Ho MD [phone] Name: CITLALY DAVIS [facility] : 1960 Age/S: 63/F [address] Unit #: [id number] Loc: [place], [place]: [place] [id number] Acct: [id number] Dis Date: Status: ADM IN PHONE #: [phone] Exam Date: 07/31/20232043 FAX #: [phone] Reason: CHF EXAMS: CPT CODE: [id number] XR CHEST 1 V 48110 EXAM: - XRCHEST 1 V CLINICAL HISTORY: CHF TECHNIQUE: Single frontal view. COMPARISON: None available. LOCATION: H65 FINDINGS: Left axillary and subclavian vascular stents noted. The trachea appears normal. The cardiac silhouette is mildly enlarged. Signs of trace vascular congestion and central pulmonary edema.No confluent airspace opacities. No pleural effusions. Visualized soft tissues and osseous structures are grossly unremarkable. IMPRESSION: Cardiomegaly with signs of minimal volume overload. at 210 Reported and signed by: Vahe Akbar M.D. CC: Chelsea Larose MD; Chris Ho MD Technologist: JACK [facility]BOLEDA [facility] Date/Time/By: 07/31/2023(2100) : By: [email or web address] PAGE 1 Signed Report FAX: Chelsea Larose MD [phone] [place]: St: ADM FAX:Chris Ho MD [phone] Name: CITLALY DAVIS [facility] : 1960 Age/S: 63/F [address] Unit #: [id number] Loc: [place], [place]: [place] [id number] Acct: [id number] Dis Date: Status: ADM IN PHONE #: [phone] Exam Date: 07/31/20232043 FAX #: [phone] Reason: CHF EXAMS: CPT CODE: [id number] XR CHEST 1 V 37952 (Continued) Orig Print D/T: S: 07/31/2023 (2103) PAGE 2 Signed Report- XR CHEST 1 [id number] 21:01:00 [facility] : 1960 Sex: F FAX: Chelsea Larose MD [phone] [place]: St: DIS FAX: Chris Ho MD [phone] Name: CITLALY DAVIS [facility] : 1960 Age/S: 63/F [address] Unit #: [id number] Loc: [address] Phys: [place] [id number] Acct: [id number] Dis Date: 20230806 Status: DIS IN PHONE #: [phone] Exam Date: 07/31/20232043 FAX #: [phone] Reason: CHF EXAMS: CPT CODE: [id number] XR CHEST 1 V 42521 EXAM: - XR CHEST 1 V CLINICAL HISTORY: CHF TECHNIQUE: Single frontal view. COMPARISON: None available. LOCATION: 5 FINDINGS: Left axillary and subclavian vascular stents noted. The trachea appears normal. The cardiac silhouette is mildly enlarged. Signs of trace vascular congestion and central pulmonary edema. No confluent airspace opacities. No pleural effusions. Visualized soft tissues and osseousstructures are grossly unremarkable. IMPRESSION: Cardiomegaly with signs of minimal volume overload. at 2101 Reported and signed by: Vahe Akbar M.D. CC: Chelsea Larose MD; Chris Ho MD Technologist: JACK ARBOLEDA [facility] Date/Time/By:07/31/2023 (2100) : By: [email or web address] PAGE 1 Signed Report FAX: Chelsea Larose MD [phone] [place]: St: DIS FAX: Chris Ho MD [phone] Name: CITLALY DAVIS [facility] : 1960 Age/S: 63/F [address] [facility] Unit #: [id number] Loc: [address] [place] [address] Phys: [place] [address] Acct: [id number] Dis Date: 20230806 Status: DIS IN PHONE #: [phone] Exam Date: 07/31/20232043 FAX #: [phone] Reason: CHF EXAMS: CPT CODE: [id number] XR CHEST 1 V 48139 (Continued) Orig Print D/T: S: 07/31/2023 (2103) PAGE 2 Signed [id number] 20:26:00 Test Item Value Reference Range Interpretation Comments GLUBED (test code = GLUBED) 132 mg/dL 70-110 H BASIC METABOLIC [id number] 19:49:00 Test Item Value Reference Range Interpretation [...] CLEARANCE (test code = ECRCL) TROP-I HIGH [id number] 19:49:00 Test Item Value Reference Range Interpretation [...] titative results may karrie y bymethod. LIPOPROTEIN [id number] 19:49:00 Test Item Value Reference Range Interpretation Comments LIPOPROTEIN LDL (test code = LDL) 93 mg/dl 70-130 N B-TYPE NATRIURETIC [id number] 19:36:00 Test Item Value Reference Range Interpretation Comments B-TYPE NATRIURETIC PEPTIDE (test 4120 PG/ML 5-100 H code = BNP) CBC W/AUTO [id number] 19:24:00 Test Item Value Reference Range Interpretation [...] 0.00 X10 3uL 0.00-0.01 N NRBC#) BETA [id number] 17:09:00 Test Item Value Reference Range Interpretation Comments BETA HYDROXYBUTYRATE 2.8 mg/dL See_Comment Referen ce Range:All (test code = BETHYD) Ages (f asting): 0.2 - 2.8Performed At: [facility] [address] [place] [address] [id number] Elias MD Ph:[phone] [Automated mess age] The system [employer] generated this result transmit vikki reference range : (). The reference r henry was not used to interpret this result as normal/abnormal . 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[facility] GLUCOSE [id number] 09:34:00 Test Item Value Reference Range Interpretation Comments GLUCOSE BEDSIDE (test 248 MG/DL 70-110 H Perfor med by certified code = 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[facility] COMPREHENSIVE METABOLIC [id number] 07:38:00 Test Item Value Reference Range Interpretation [...] recommended for cassidy for [facility]by the [facility] Kid[facility] on for Adults.The GFR [...] H PHOSPHATASE TOTAL (test code = ALKP) [id number] 07:38:00 Test Item Value Reference Range Interpretation Comments PHOSPHOROUS (test code = PHOS) 6.2 MG/DL 2.5-4.9 H [id number] 07:38:00 Test Item Value Reference Range Interpretation Comments MAGNESIUM (test code = MAG) 2.00 mg/dL 1.80-2.40 N CALCIUM [id number] 07:38:00 Test Item Value Reference Range Interpretation Comments CALCIUM IONIZED (test code = KEISHA) 0.93 MMOL/L 1.09-1.30 L GLUCOSE [id number] 07:00:00 Test Item Value Reference Range Interpretation Comments GLUCOSE BEDSIDE (test 406 MG/DL 70-110 H Perfor med by certified code = 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[facility] GLUCOSE [id number] 21:15:00 Test Item Value Reference Range Interpretation Comments GLUCOSE BEDSIDE (test 347 MG/DL 70-110 H Perfor med by certified code = 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[facility] GLUCOSE [id number] 16:16:00 Test Item Value Reference Range Interpretation Comments GLUCOSE BEDSIDE (test 101 MG/DL 70-110 N Perfor med by certified code = 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[facility] GLUCOSE [id number] 16:07:00 Test Item Value Reference Range Interpretation Comments GLUCOSE BEDSIDE (test 408 MG/DL 70-110 H Perfor med by certified code = 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[facility] COMPREHENSIVE METABOLIC [id number] 07:16:00 Test Item Value Reference Range Interpretation [...] the recommended for cassidy for [facility] Kid[facility] for Adults.The GFR [...] 20-125 H TOTAL (test code = ALKP) [id number] 07:16:00 Test Item Value Reference Range Interpretation Comments PHOSPHOROUS (test code = PHOS) 7.6 MG/DL 2.5-4.9 H [id number] 07:16:00 Test Item Value Reference Range Interpretation Comments MAGNESIUM (test code = MAG) 2.13 mg/dL 1.80-2.40 N CALCIUM [id number] 07:16:00 Test Item Value Reference Range Interpretation Comments CALCIUM IONIZED (test code = KEISHA) 0.98 MMOL/L 1.09-1.30 L CBC W/AUTO [id number] 05:49:00 Test Item Value Reference Range Interpretation [...] 10.0-20.0 L DIL) - XR CHEST 1 [id number] 00:00:00 [facility] : 1960 Sex: F FAX: Eloisa Kline DO [phone] [place]: St: ADM FAX: Moe Smith MD [phone] Name: CITLALY DAVIS [facility] : 1960 Age/S: 63/F [address] [place] [address] Unit #: [id number] Loc: [address] [place] [address] Phys: Moe Peres MD Acct: [id number] Dis Date: Status: ADM IN PHONE #: [phone] Exam Date: 07/15/2023701 FAX #: [phone] Reason: ASSESS VOLUME ORERLOAD/PNA EXAMS: CPT CODE: [id number] XR CHEST 1 V 45231 PROCEDURE INFORMATION: Exam: XR Chest Exam date [...] aorta. No gross pulmonary vascular congestion. Bones/joints: Chronic degenerative changes of the shoulders. No acute skeletal abnormality. Soft tissues: Left axillary vascular stent material noted. IMPRESSION: 1. Enlarged cardiac silhouette without significant change. No overt failure at this time. 2. Incidental right infrahilar nodular opacity of undetermined etiology, unable to be confirmed stable. Lincoln of pulmonary vessels and pulmonary nodule in the differential. If not previously obtained, further imaging options include CT. at 0825 Reported and signed by: John Cortez M.D. 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 YPreviously rep orted result: 5.9 mEq /LEdited by: Trev on 07/14/23:908823 1441: K previou sly reported as: 5. 9 *H mEq/L Critical result called to CIRILO RODRÍGUEZ by Trev at 1 444 07/13/23 Nurse read back result and tech [...] 8.0 mg/dL 8.0-10.5 N CA) TROP-I HIGH [id number] 14:42:00 Test Item Value Reference Range Interpretation Comments TROP-I HIGH 470 ng/L 0-34 HH Critical result called to SENSITIVITY (test RIA kitchenF.JSC2 code = TROPIHS) at 1644 06/25 08/17Nurse read back result and tech confirmed it's correct? YCAUTION: Units of the current test me thodology (ng/L) differfr om the prior test meth odology (ng/mL) by a fa ctor of 1000. 99t h Percentile Uppe r Reference Limit (URL): Fe males: 34 ng/LMales: 54 ng/L In order to distin guish acute elevations [...] and URLs mayvar y by method. 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 The refe rence range was not u sed to interpret th is result as normal/abnormal . 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[facility] CBC W/AUTO [id number] 06:09:00 Test Item Value Reference Range Interpretation [...] (test code NO = MDIFF) COMPREHENSIVE METABOLIC [id number] 05:31:00 Test Item Value Reference Range Interpretation [...] recommended for cassidy for [facility]by the [facility] Kid[facility] Found[facility] on for Adults.The GFR [...] 20-125 H TOTAL (test code = ALKP) [id number] 05:31:00 Test Item Value Reference Range Interpretation Comments PHOSPHOROUS (test code = PHOS) 5.7 MG/DL 2.5-4.9 H [id number] 05:31:00 Test Item Value Reference Range Interpretation Comments MAGNESIUM (test code = MAG) 2.02 mg/dL 1.80-2.40 N CALCIUM [id number] 05:31:00 Test Item Value Reference Range Interpretation Comments CALCIUM IONIZED (test code = KEISHA) 0.97 MMOL/L 1.09-1.30 L LACTIC ACID [id number] 05:08:00 Test Item Value Reference Range Interpretation Comments LACTIC ACID REPEAT (test code = 1.0 mmol/l 0.4-1.9 N LACTR) - XR CHEST 1 [id number] 00:00:00 [facility] : 1960 Sex: F FAX: Eloisa Kline DO [phone] [place]: St: [facility] FAX: Moe Smith MD [phone] FAX: Mavis Mcadams NP Name: CITLALY DAVIS [facility] : 1960 Age/S: 63/F [address] [place] [address] Unit #: [id number] Loc: [place] [address] Phys: Mavis Mcadams NP Acct: [id number] Dis Date: Status: ADM INPHONE #: [phone] Exam Date: 07/14/2023 0610 FAX #: [phone] Reason: ASSESS VOLUME OVERLOAD/PNA EXAMS: CPT CODE: [id number] XR CHEST 1 V 68523 PROCEDURE INFORMATION: Exam: XR Chest Exam date andtime: 07/14/2023 6:10 AM Age: 63 years old Clinical indication: Pain; Additional info: Assess volume overload/pna TECHNIQUE: Imaging protocol: Radiologic exam of the chest. Views: 1 view. COMPARISON: CRXR CHEST 1V 07/13/2023 4:02 PM FINDINGS: Lungs: See "Heart/Mediastinum" finding. Pleural spaces: See "Heart/Mediastinum" finding. Heart/Mediastinum: The cardiac silhouette demonstrates left ventricular e nlargement without evidence of failure. No gross active pleural, parenchymal, or mediastinal abnormalities noted. Bones/joints: The visualized bones of the thorax are grossly unremarkable. IMPRESSION:1. The cardiac silhouette demonstrates left ventricular enlargement without evidence of failure. 2. No acute abnormality in the chest. Interval improvement. at 0808 Reported and signed by: Shen Metz M.D. 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 code = HAVMAB) AG HEPATITIS B SURFACE NON REACTIVE INDEX NonReactive (test code = HBSAG) AB HEPATITIS B CORE IGM NON REACTIVE INDEX NON REACT. (test code = HBCMAB) AB HEPATITIS C (test code NON REACTIVE INDEX NON REACT. = HCVAB) COVID 19 INHOUSE [id number] 17:35:00 Test Item Value Reference Range Interpretation Comments COVID 19 INHOUSE Negative Negative A negative result is AG (test code = presumptive and should be [id number]) confirmedwith a n FDA authorized mole cular assay, if necessary fo rpatient management.A po sitive result does not rule out co-infections w ithother pathogens.This test detects both viable (li ve) and non-viable,SARS -CoV, and SARS-CoV-2. Reg t performance dep ends on theamount of vi rocco (antigen) in e sample.This reg t has not been FDA cleare d or approved; the t est hasbeen authorized by [employer] [facility] under an Emergency Use Authorization(E UA) for use by laboratories certified under the CLIA thatmeet the requirements to perform moderate, high or waivedcomplexit y tests. INFLUENZA A [id number] 17:34:00 Test Item Value Reference Range Interpretation Comments INFLUENZA A (test code = FLUAPCR) Negative Negative INFLUENZA B (test code = FLUBPCR) Negative Negative LACTIC [id number] 17:28:00 Test Item Value Reference Range Interpretation Comments LACTIC ACID (test code = LACT) 2.5 mmol/L 0.4-1.9 H LIPOPROTEIN [id number] 17:05:00 Test Item Value Reference Range Interpretation Comments LIPOPROTEIN LDL 109.0 mg/dL 0-100 H <100 OPTIMAL 100-129 (test code = LDL) NEAR OPTIM AL/ABOVE [id number] 89 HIGH>SH=567 VANDANA Y HIGH*Guidelines provided by the National Choles terol EducationProgra m Adult Treatment Panel III B-TYPE NATRIURETIC [id number] 16:53:00 Test Item Value Reference Range Interpretation Comments B-TYPE NATRIURETIC PEPTIDE (test 4192.0 PG/ML 0-100 H code = BNP) PROTHROMBIN [id number] 16:27:00 Test Item Value Reference Range Interpretation [...] l Infarction (to prevent recurre nt infarct). CBC W/AUTO [id number] 16:22:00 Test Item Value Reference Range Interpretation [...] NO = MDIFF) - CT HEAD/BRAIN W/O [id number] 00:00:00 [facility] : 1960 Sex: F Name:CITLALY DAVIS [facility] : 1960 Age/S: 63 / F [address] [place] [address] Unit #: [id number] Loc: [place] [address] Phys: Vandana Oden APRNNP Acct: [id number] Dis Date: Status: ADM IN PHONE #: [phone] Exam Date: 07/13/2023 1830 FAX #: [phone] Reason: AMS EXAMS: CPT CODE:[id number] CT HEAD/BRAIN W/O CONT 71532 PROCEDURE INFORMATION: Exam: CT Head Without Contrast [...] air cells are well aerated. Orbital cavities: Bilateral intraocular lens replacements. Bones/joints: Unremarkable. No acute fracture. Soft tissues: Unr emarkable. Vasculature: Atherosclerotic calcification of the carotid siphons. IMPRESSION: 1. No acute intracranial abnormality. 2. 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 at 2040 Reported and signed by: Bigg Ely M.D. PAGE1 Signed Report (CONTINUED) Name: CITLALY DAVIS [facility] : 1960 Age/S: 63 / F [address] [place] [address] Blvd Unit #: [id number] Loc: [place] [address] Phys: Vandana Oden Acct: [id number] Dis Date: Status: ADM IN PHONE #: [phone] Exam Date: 07/13/2023 1830 FAX #: [phone] Reason: AMS EXAMS: CPT CODE: [id number] CT HEAD/BRAIN W/O CONT 71737 (Continued) CC: Eloisa Oden Technologist:Daniella Nicole, RT(R); Jose CTDI: DLP: Trnscb Date/Time: 07/13/2023 (2039) [email or web address] Orig Print D/T: S: 07/13/2023 (2039) PAGE 2 Signed Report- XR CHEST 1 [id number] 00:00:00 [facility] : 1960 Sex: F FAX: Vandana Cole [phone] [place]: St: REG Name: CITLALY DAVIS [facility] : 1960 Age/S: 63/F [address] [place] [address] Unit #: [id number] Loc: [place] [address] Phys: Vandana Oden APRNNP Acct: [id number] Dis Date: Status: REG ER PHONE #: [phone] Exam Date: 07/13/2023 1616 FAX #: [phone] Reason: Chest Pain EXAMS: CPT CODE: [id number] XR CHEST 1 V 08978 PROCEDURE INFORMATION: Exam: XR Chest Exam date [...] No radiographically evident of displaced rib fracture. IMPRESSION: Probably mild vascular congestive change and pulmonary edema versus pneumonia. Please correlate clinically. at 1643 Reported and signed by: Adán Hagen M.D. CC: Vandana Oden Technologist: RT Vick(Vita) Trnscrd Date/Time/By: 07/13/2023 (1642) : By: [email or web address] Orig Print D/T: S: 07/13/2023 (1642) PAGE 1 Signed [facility] GLUCOSE (AUTOMATED)2023-05-26 15:18:29 Test Item Value Reference Range Interpretation Comments POCT GLU (test code = 1843768399) 338 mg/dL 70-110 H Lab Interpretation (test code = Abnormal 82284-1) [facility] GLUCOSE (AUTOMATED)2023-05-26 02:01:59 Test Item Value Reference Range Interpretation Comments POCT GLU (test code = 8905762716) 174 mg/dL 70-110 H Lab Interpretation (test code = Abnormal 37701-8) [facility] GLUCOSE (AUTOMATED)2023-05-25 22:07:03 Test Item Value Reference Range Interpretation Comments POCT GLU (test code = 0434338123) 323 mg/dL 70-110 H Lab Interpretation (test code = Abnormal 75096-5) [facility] GLUCOSE (AUTOMATED)2023-05-25 17:07:04 Test Item Value Reference Range Interpretation Comments POCT GLU (test code = 7898528326) 425 mg/dL 70-110 H Lab Interpretation (test code = Abnormal 90843-1) [facility] GLUCOSE (AUTOMATED)2023-05-25 15:39:21 Test Item Value Reference Range Interpretation Comments POCT GLU (test code = 6203875247) 207 mg/dL 70-110 H Lab Interpretation (test code = Abnormal 66115-8) [facility] ([facility]IAMINE), WHOLE [id number] 10:48:56 Test Item Value Reference Range Interpretation Comments Vitamin B1, Whole 138 nmol/L 70-180 INTERPRETI VE INFORMATION: Blood (test code = Vitamin B 1, Whole Blood 14173-8) This assay zaida ures the concentration o f thiamine diphosphate (TD P), the primary active form of vitamin B1. Amy roximately 90 percent of v itamin B1 present in whol e blood is TDP. Thiamine a nd thiamine monoph osphate, which comprise the remaining 10 pe rcent, are not measured. T his test was developed a nd its performance characteristics determined by [facility]. I t has not been cleared or approved by the [place] Food and Drug Administration. This test was performed i n a CLIA certified labor atory and is intended for clinical purposes.Perfor med By: [facility] [address] [address]P aboratory Director: Sofya Mcfarlane MD, PhD [facility] GLUCOSE (AUTOMATED)2023-05-25 01:29:01 Test Item Value Reference Range Interpretation Comments POCT GLU (test code = 1772064861) 193 mg/dL 70-110 H Lab Interpretation (test code = Abnormal 31711-3) [facility] GLUCOSE (AUTOMATED)2023-05-25 01:12:35 Test Item Value Reference Range Interpretation Comments POCT GLU (test code = 3297385914) 201 mg/dL 70-110 H Lab Interpretation (test code = Abnormal 93041-9) [facility]6, [id number] 22:13:19 Test Item Value Reference Range Interpretation Comments VIT B6 (test code = 9.6 nmol/L 20.0-125.0 L INTERPRE TIVE 09458-4) INFORMATION: Vi tamin B6 (Pyridoxal 5-Phosphate) Py ridoxal 5'-phosphate me asured in a specimen collected follo wing an 8-hour or overn ight fast accurately indicates vitam in B6 nutritional sta tus. Non-fasting spe cimen concentration r eflects recent vitamin intake. This test was developed and i ts performance characteristics determined by [facility]. I t has not been cleare d or approved by the [place] Food and Drug Administration. This test was perfor med in a CLIA certifie d laboratory and is intended for cl inical purposes.Perfor med By: TYRONE [address] [place], [place] [address]Ftltxdhnqh Director: Sofya Mcfarlane MD, PhD Lab Interpretation Abnormal (test code = 51665-7) [facility] GLUCOSE (AUTOMATED)2023-05-24 22:11:57 Test Item Value Reference Range Interpretation Comments POCT GLU (test code = 6917146649) 343 mg/dL 70-110 H Lab Interpretation (test code = Abnormal 17754-6) [facility] GLUCOSE (AUTOMATED)2023-05-24 02:12:56 Test Item Value Reference Range Interpretation Comments POCT GLU (test code = 6376010736) 176 mg/dL 70-110 H Lab Interpretation (test code = Abnormal 49175-3) [facility] GLUCOSE (AUTOMATED)2023-05-23 22:32:03 Test Item Value Reference Range Interpretation Comments POCT GLU (test code = 7652142044) 210 mg/dL 70-110 H Lab Interpretation (test code = Abnormal 34322-6) [facility] GLUCOSE (AUTOMATED)2023-05-23 17:09:37 Test Item Value Reference Range Interpretation Comments POCT GLU (test code = 2636697969) 203 mg/dL 70-110 H Lab Interpretation (test code = Abnormal 75417-1) [facility] GLUCOSE (AUTOMATED)2023-05-23 13:21:18 Test Item Value Reference Range Interpretation Comments POCT GLU (test code = 9661699337) 184 mg/dL 70-110 H Lab Interpretation (test code = Abnormal 70162-3) [facility] Whole [id number] 12:55:22 Test Item Value Reference Range Interpretation Comments LACTIC ACID (test code = 1.58 mmol/L 0.50-2.20 9000768328) Lab Interpretation (test code = Normal 52004-8) [facility] [id number] 12:48:53 Test Item Value Reference Range Interpretation Comments PHENY FREE (test code 1.0-2.0 L = 2846056576) ALAINA (test code = ALAINA) Toxic Range: ? Greater than 2.5 ug/mL Test developed and characteristics determined by [facility] Laboratory Services. Lab Interpretation Abnormal (test code = 32144-7) [facility] GLUCOSE (AUTOMATED)2023-05-23 01:20:39 Test Item Value Reference Range Interpretation Comments POCT GLU (test code = 3293427761) 129 mg/dL 70-110 H Lab Interpretation (test code = Abnormal 31579-3) [facility] ([facility]Ab[facility]2023-05-22 21:17:13 Test Item Value Reference Range Interpretation Comments HBsAB (test code = Positive 8252101564) HBsAb mIU/mL Semi-Quantitative (test code = 8473013973) ALAINA (test code = Interpretation: ALAINA) ?Hepatitis B Surface Antibody ? Negative - Patient is considered to be not immune to infection with HBV. ? ? Positive - Anti-HBs detected at greater than or equal to 12 mIU/mL. ?Patient is considered to be immune to infection with HBV. ? [facility] GLUCOSE (AUTOMATED)2023-05-22 21:05:05 Test Item Value Reference Range Interpretation Comments POCT GLU (test code = 7385382446) 119 mg/dL 70-110 H Lab Interpretation (test code = Abnormal 16357-3) [facility] B Surface Antigen (HBsAg)2023-05-22 20:59:30 Test Item Value Reference Range Interpretation Comments HBsAg Semi-Quantitative (test code = 0.06 Negative 5195-3) [facility] [id number] 17:26:12 Test Item Value Reference Range Interpretation Comments TROPONIN I (test code = 0.125 ng/mL <=0.034 H 2469045422) ALAINA (test code = ALAINA) Reference (Normal) [...] biotin. Lab Interpretation Abnormal (test code = 64004-6) [facility] GLUCOSE (AUTOMATED)2023-05-22 16:31:35 Test Item Value Reference Range Interpretation Comments POCT GLU (test code = 5015443657) 180 mg/dL 70-110 H Lab Interpretation (test code = Abnormal 77067-4) [facility] GLUCOSE (AUTOMATED)2023-05-22 12:50:21 Test Item Value Reference Range Interpretation Comments POCT GLU (test code = 0874279248) 248 mg/dL 70-110 H Lab Interpretation (test code = Abnormal 55966-0) [facility] Hospital[facility] STIMULATING [id number] 10:13:07 Test Item Value Reference Range Interpretation Comments TSH (test code = 1.14 See_Comment [Automated message] 6164599413) The system [employer] generated this result transmitted ref erence range: 0.45 - 4 .70 mIU/L. The refe rence range was not u sed to interpret this result as normal/abnor mal. Lab Interpretation (test Normal code = 61429-2) [facility] METABOLIC PANEL (NA, K, CL, CO2, GLUCOSE, BUN, CREATININE, CA)2023-05-22 09:55:05 Test Item Value Reference Range Interpretation Comments NA (test code = 134 mmol/L 135-145 L 6356017231) K (test code = 4.2 mmol/L 3.5-5.0 3151553519) CL (test code = 92 mmol/L 98-108 L 7588668050) CO2 TOTAL (test code = 28 mmol/L 23-31 7015276522) AGAP (test code = 14 2-16 5313814662) BUN (test code = 41 mg/dL 7-23 H 4919400995) GLUCOSE (test code = 278 mg/dL 70-110 H 3725294876) CREATININE (test code = 7.20 mg/dL 0.50-1.04 H 6669587025) CALCIUM (test code = 7.8 mg/dL 8.6-10.6 L 1673295549) eGFR (test code = 5.8 mL/min/1.73m2 6018815593) ALAINA (test code = ALAINA) Association of [...] tests). Lab Interpretation Abnormal (test code = 00309-4) [facility]IK[facility]IJAH [id number] 09:54:50 Test Item Value Reference Range Interpretation Comments TROPONIN I (test code = 0.095 ng/mL <=0.034 H 0990798002) ALAINA (test code = ALAINA) Reference (Normal) [...] biotin. Lab Interpretation Abnormal (test code = 41048-6) [facility]2023-06-28 09:39:22 Test Item Value Reference Range Interpretation Comments MAGNESIUM (test code = 6935947076) 1.9 mg/dL 1.7-2.4 Lab Interpretation (test code = Normal 27674-6) [facility]2023-06-28 09:39:22 Test Item Value Reference Range Interpretation Comments PHOSPHORUS (test code = 7075113733) 5.9 mg/dL 2.5-5.0 H Lab Interpretation (test code = Abnormal 65541-0) [facility] HospitalCB WITHOUT [id number] 09:07:59 Test Item Value Reference Range Interpretation Comments WBC (test code = 6690-2) 8.92 See_Comment [A utomated message] The system [employer] generated this result transmit vikki reference range : 4.30 - 11.10 10*3/?L. The reference range was not used to interpret this result as normal/abnormal . RBC (test code = 789-8) 3.90 See_Comment L [Au tomated message] The system Aviary generated this result transmit vikki reference range [...] 333 See_Comment [Au tomated message] The system Aviary generated this result transmit vikki reference range : 166 - 358 10*3/?L. The reference range was not used to interpret this result as normal/abnormal . MPV (test code = 9.4 fL 9.5-12.9 L 74757-0) RDW-CV (test code = 18.6 % 12.0-15.5 H 788-0) RDW-SD (test code = 54.2 fL 39.0-49.9 H 98993-7) NRBC x10^3 (test code = 0.03 See_Comment [Au tomated message] [id number]) The system Aviary generated this result transmit vikki reference range : 10*3/?L. The reference range was not used to interpret this result as normal/abnormal . NRBC/100 WBC (test code 0.3 See_Comment [Au tomated message] = [id number]) The system farmbuy ch generated this result transmit vikki reference range : 0.0 - 10.0 /100 WBC s. The reference r henry was not used to interpret this result as normal/abnormal . IPF % (test code = 0976023027) Lab Interpretation (test Abnormal code = 79979-9) [id number]12 Test Item Value Reference Range Interpretation Comments TROPONIN I (test code = 0.075 ng/mL <=0.034 H [id number]) ALAINA (test code = ALAINA) Reference (Normal) [...] biotin. Lab Interpretation Abnormal (test code = 83794-1) [facility]-22 02:29:37 Test Item Value Reference Range Interpretation Comments POCT GLU (test code = 1853910208) 295 mg/dL 70-110 H Lab Interpretation (test code = Abnormal 86851-2) [facility] + Lactic [id number] 01:28:12 Test Item Value Reference Range Interpretation Comments PH (test code = 2) 7.50 7.35-7.45 H PCO2 (test code = 34 See_Comment L [Automate d [id number]) message] The sy stem which generated this result transmitted reference range : 35 - 45 mmHg. The reference range was not used to interpret this result as normal/abnormal . PO2 (test code = 69 See_Comment L [Automated 6279674314) message] The sy stem which generated this result transmitted reference range : 80 - 100 mmHg. The reference range was not used to interpret this result as normal/abnormal . HCO3 (test code = 26 See_Comment [Automate d 1289777731) message] The sy stem which generated this result transmitted reference range : 22 - 26 mEq/L. The reference range was not used to interpret this result as normal/abnormal . BE (test code = 3.2 See_Comment H [Automated [id number]) message] The sy stem which generated this result transmitted reference range : -3.0 - 3.0 mEq/ L. The reference r henry was not used to interpret this result as normal/abnormal . THB (test code = 11.9 g/dL 12.0-16.0 L 6973623911) %O2HB (test code = 93.8 % 94.0-99.0 L 1111423016) %COHB ART (test code = 0.7 % 0.0-1.5 4326839807) %METHB ART (test code = 0.1 % 0.4-1.5 L 8074278689) VOL%O2 ART (test code = 15.7 % 15.0-23.0 0930565651) NA (test code = 135 mmol/L 135-145 3098170883) K+ (test code = 3.8 mmol/L 3.5-5.0 1933307714) AC CA IONZ (test code = 3.70 mg/dL 4.50-5.30 L 2723325813) GLUCOSE (test code = 330 mg/dL 70-110 H 7216402470) LACTIC ACID (test code 1.77 mmol/L 0.50-2.20 = 1809395283) Lab Interpretation Abnormal (test code = 59525-2) [facility] Glucose (Age >30 Days)2023-05-21 22:10:00 Test Item Value Reference Range Interpretation Comments POCT Glu (age>30days) (test code = 380 mg/dL 70-110 A 3342) Lab Interpretation (test code = Abnormal 88038-5) [facility]23-05-21 21:38:44 Test Item Value Reference Range Interpretation Comments POCT GLU (test code = 0559012147) 380 mg/dL 70-110 H Lab Interpretation (test code = Abnormal 45877-1) [facility] [id number] 19:49:00 Test Item Value Reference Range Interpretation Comments GLUCOSE BEDSIDE (test 327 MG/DL 70-110 H Perfor med by certified code = 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[facility] GLUCOSE [id number] 16:05:00 Test Item Value Reference Range Interpretation Comments GLUCOSE BEDSIDE (test 244 MG/DL 70-110 H Perfor med by certified code = 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[facility] GLUCOSE [id number] 11:31:00 Test Item Value Reference Range Interpretation Comments GLUCOSE BEDSIDE (test 271 MG/DL 70-110 H Perfor med by certified code = 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[facility] GLUCOSE [id number] 17:46:00 Test Item Value Reference Range Interpretation Comments GLUCOSE BEDSIDE (test 192 MG/DL 70-110 H Perfor med by certified code = 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[facility] GLUCOSE [id number] 12:12:00 Test Item Value Reference Range Interpretation Comments GLUCOSE BEDSIDE (test 162 MG/DL 70-110 H Perfor med by certified code = 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 code = HAVMAB) AG HEPATITIS B SURFACE NON REACTIVE INDEX NonReactive (test code = HBSAG) AB HEPATITIS B CORE IGM NON REACTIVE INDEX NON REACT. (test code = HBCMAB) AB HEPATITIS C (test code NON REACTIVE INDEX NON REACT. = HCVAB) AB HEPATITIS B [id number] 05:12:00 Test Item Value Reference Range Interpretation Comments AB HEPATITIS B > 1000.0 mIU/mL See_Comment Status of Immunity SURFACE (test code Anti-HBs Level = HBSAB) --- I ncons istent with Imm unity 0.0 - 9.9Consis tent with Immunity >9.9Performed A t: HD [facility] [address] [id number] Vinicio Leach MD Ph:[phone] [Automated mess age] The system Aviary generated this result transmit vikki reference range : Immunity>9.9. T he reference range was not used to interpret this result as normal/abnormal . 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[facility] GLUCOSE [id number] 15:58:00 Test Item Value Reference Range Interpretation Comments GLUCOSE BEDSIDE (test 109 MG/DL 70-110 N Perfor med by certified code = 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[facility] GLUCOSE [id number] 11:08:00 Test Item Value Reference Range Interpretation Comments GLUCOSE BEDSIDE (test 224 MG/DL 70-110 H Perfor med by certified code = 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[facility] GLUCOSE [id number] 22:40:00 Test Item Value Reference Range Interpretation Comments GLUCOSE BEDSIDE (test 184 MG/DL 70-110 H Perfor med by certified code = 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[facility] GLUCOSE [id number] 17:56:00 Test Item Value Reference Range Interpretation Comments GLUCOSE BEDSIDE (test 124 MG/DL 70-110 H Perfor med by certified code = 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[facility] GLUCOSE [id number] 14:54:00 Test Item Value Reference Range Interpretation Comments GLUCOSE BEDSIDE (test 133 MG/DL 70-110 H Perfor med by certified code = 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[facility] GLUCOSE [id number] 12:11:00 Test Item Value Reference Range Interpretation Comments GLUCOSE BEDSIDE (test 144 MG/DL 70-110 H Perfor med by certified code = 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 99t h Percentile Uppe r Reference Limit (URL): Fe males: 34 ng/LMales: 54 n g/L In order to distin [facility] acute elevations of h igh sensitivitytrop onin from other clinical conditions, the FourthUnive rsal Definition of M yocardial Infarction stressesclinica l assessment and the demonstration o f a rise and/orfall in s erial troponin result s above the URL. These resu lts were obtained using Siemens AtellAttentio IM TnI Hreagent. Results from di fferent methodologies s hould not becompared to o ne another as quantitative results and URLs mayvar y by method. 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 99t h Percentile Uppe r Reference Limit (URL): Fe males: 34 ng/LMales: 54 n g/L In order to distin [facility] acute elevations of h igh sensitivitytrop onin from other clinical conditions, the [facility] rsal Definition of M yocardial Infarction stressesclinica l assessment and the demonstration o f a rise and/orfall in s erial troponin result s above the URL. These resu lts were obtained using Siemens AtellAttentio IM TnI Hreagent. Results from [employer] [facility] flipClass s hould not becompared to o ne another as quantitative results and URLs mayvar y by method. TROP-I HIGH [id number] 04:48:00 Test Item Value Reference Range Interpretation Comments TROP-I HIGH 474 ng/L 0-34 HH CAUTION: Units of the SENSITIVITY (test current te st methodology code = TROPIHS) (ng/L) diffe rfrom the prior test meth odology (ng/mL) by a fa ctor of 1000. 99t h Percentile Uppe r Reference Limit (URL): Fe males: 34 ng/LMales: 54 n g/L In order to distin [facility] acute elevations of h igh sensitivitytrop onin from other clinical conditions, the FourthUnive rsal Definition of M yocardial Infarction stressesclinica l assessment and the demonstration o f a rise and/orfall in s erial troponin result s above the URL. These resu lts were obtained using Siemens Atellica IM TnI Hreagent. Results from [employer] s hould not becompared to o ne another as quantitative results and URLs mayvar y by method. TROP-I HIGH [id number] 01:34:00 Test Item Value Reference Range Interpretation [...] These resu lts were obtained using Siemens AtellAttentio IM TnI Hreagent. Results from [employer] s hould not becompared to o ne another as quantitative results and URLs mayvar y by method. LIPOPROTEIN [id number] 21:48:00 Test Item Value Reference Range Interpretation Comments LIPOPROTEIN LDL 96.0 mg/dL 0-100 N <100 OPTIMAL 100-129 NEAR (test code = LDL) OPTIMAL/AB OVE [id number] 89 HIGH>BB=326 VANDANA Y HIGH*Guidelines provided by the National Cholesterol EducationProgra m Adult Treatment Panel III PROTHROMBIN [id number] 21:41:00 Test Item Value Reference Range Interpretation [...] l Infarction (to prevent recurrent infar ct). THROMBOPLASTIN TIME [id number] 21:41:00 Test Item Value Reference Range Interpretation Comments THROMBOPLASTIN TIME 27.0 Seconds 25.0-39.5 N Therape utic Range: PARTIAL (test code = 50.4 - 88.3 Seconds PTT) Effective 03/10/2019 BASIC METABOLIC [id number] 21:31:00 Test Item Value Reference Range Interpretation [...] 8.2 mg/dL 8.0-10.5 N CA) HEPATIC FUNCTION [id number] 21:31:00 Test Item Value Reference Range Interpretation [...] 20-125 H code = ALKP) TROP-I HIGH [id number] 21:31:00 Test Item Value Reference Range Interpretation Comments TROP-I HIGH 472 ng/L 0-34 HH Critical result called to SENSITIVITY (test IRAIDA QU IGG, RNby code = TROPIHS) G.LAB.ATD at 213002/11/23Neugenio r ead back result and tech confirmed it's correct? Y ESCAUTION: Units of the cu rrent test methodology (ng /L) differfrom the prior test methodology (ng /mL) by a factor of 1000. 99t h Percentile Uppe r Reference Limit (URL): Fe males: 34 ng/LMales: 54 ng/L In order to distin guish acute elevations of h igh sensitivitytrop onin from other clinical conditions, the FourthUnive rsal Definition of M yocardial Infarction stressesclinica l assessment and the demonstration o f a rise and/orfall in s erial troponin result s above the URL. These resu lts were obtained using [employer] AtellAttentio IM TnI Hreagent. Results from di abida turcios s hould not becompared to o ne another as quantitative results and URLs mayvar y by method. B-TYPE NATRIURETIC [id number] 21:30:00 Test Item Value Reference Range Interpretation Comments B-TYPE NATRIURETIC PEPTIDE (test 626.0 PG/ML 0-100 H code = BNP) [id number] 21:25:00 Test Item Value Reference Range Interpretation Comments AMMONIA (test code = AMM) 39 umol/L 11-35 H CBC W/AUTO [id number] 21:07:00 Test Item Value Reference Range Interpretation [...] NO = MDIFF) - XR CHEST 1 [id number] 00:00:00 [facility] : 1960 Sex: F FAX: Harley Ramos MD [place]: [address]: REG Name: CITLALY DAVIS [facility] : 1960 Age/S: 62/F [address] [place] [address] Bl Unit #: [id number] Loc: [place] [address] Phys: Harley Pineda MD Acct: [id number] Dis Date: Status: REG ER PHONE #: [phone] Exam Date: 02/11/20232115 FAX #: [phone] Reason: ChestPain EXAMS: CPT CODE: [id number] XR CHEST 1 V 68826 PROCEDURE INFORMATION: Exam: XR Chest Exam date [...] subclavian region vascular stents. IMPRESSION: Cardiomegaly. at 214 Reported and signed by: Evans Orozco M.D. CC: Harley Pineda MD Technologist: Teressa Bermudez RT(R) Trnscrd Date/Time/By: 02/11/2023 (2144) : By: [email or web address] Orig Print D/T: S: 02/11/2023 (2144) PAGE 1 Signed Report- CT HEAD/BRAIN W/O [id number] 00:[facility]00[facility] CIT[facility]ALY DAVIS : 1960 Sex: F Name:CITLALY DAVIS [facility] : 1960 Age/S: 62 / F [address] [place] [address] Unit #: [id number] Loc: [place] [address] Phys: Harley Pineda MD Acct: [id number] Dis Date: Status: REG ER PHONE #: [phone] Exam Date: 02/11/20232154 FAX #: [phone] Reason: ams EXAMS: CPT CODE: [id number] CT HEAD/BRAIN W/O CONT 02609 PROCEDURE INFORMATION: Exam: CT Head Without Contrast [...] Rider, RT(R)(CT) CTDI: DLP: Trnscb Date/Time: 02/11/2023 (2236) t.[email or web address] Orig Print D/T: S: 02/11/2023 (2236) PAGE 1 Signed [id number] 14:08:00 Test Item Value Reference Range Interpretation Comments SURGICAL (test code = SR) R UN DATE: 12/20/22 [facility] PAGE 1 RUN TIME: 1408 Specimen Inquiry RUN USER: INTERFACE P ATIENT: CITLALY DAVIS LOC: JÚNIOR U #: [id number] AGE/SX: 62/F ROOM: [facility] RE12/06/22[facility] DR: Vero Michaels MD : 62 BED: 1 DIS: STATUS: ADM IN TLOC: SPEC #: [id number] RECD: 12/19/22 STATUS: TIMA REQ #: [id number] RADHA: 12/18/22- SUBM DR: Elise Talamantes MD ENTERED: 12/19/22 SP TYPE: SURGICAL OTHR DR: No Primary or Family Physician Self Referred Nai Arredondo MD, Brent J MD Chang, Charlie C MD Guidry, Maria T MD Okundaye, Ebima C MD Omitogun,Flavio Talamantes,In S MDORDERED: 60483, ANATOMIC SPEC CODES: [id number] - LEG, NOS COPIES TO: No Primary or Family Physician Self Referred Nai Arredondo MD [address] [place] [address] Everton Arroyo MD [address] [place] [address] Suresh Ventura MD [address] [place] [address] Eva Pugh MD [address] [place] [address] [place] [address] [facility] [address] [place] [address] CONTINUED ON NEXT PAGE R UN DATE: 12/20/22 [facility] PAGE 2 RUN TIME: 1408 Specimen Inquiry RUN USER: INTERFACE S PEC #: [id number] PATIENT: CITLALY DAVIS #[id number] (Continued) COPIES TO: (Continued) [place] [address] [place] [address] Yo,In S [address] [place] [address] [address] [place] [address] PROCEDURES: 39676 (12/19/22-111) TISSUES: LEG, NOS - LEFT LOWER CLINICAL [...] exudate submitted (A)-(C). Technical component performed at 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[facility] GLUCOSE [id number] 07:11:00 Test Item Value Reference Range Interpretation Comments GLUCOSE BEDSIDE (test 37 MG/DL 70-110 L Perfor med by certified code = 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5 N CA) COMMENTS: POST DIALYSISGLUCOSE [id number] 13:42:00 Test Item Value Reference Range Interpretation Comments GLUCOSE BEDSIDE (test 142 MG/DL 70-110 H Perfor med by certified code = 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[facility] RENAL FUNCTION [id number] 10:43:00 Test Item Value Reference Range Interpretation [...] 7.9 MG/DL 2.5-4.9 H code = PHOS) [id number] 12/19/22 0813GLUCOSE [id number] 07:57:00 Test Item Value Reference Range Interpretation Comments GLUCOSE BEDSIDE (test 106 MG/DL 70-110 N [facility] med by certified code = 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[facility] BASIC METABOLIC [id number] 23:17:00 Test Item Value Reference Range Interpretation [...] = POCGLU) 211 MG/DL 70-110 H HEMOGLOBIN [id number] 23:17:00 Test Item Value Reference Range Interpretation Comments HEMOGLOBIN ABG (test code = HGB/ABG) 6.9 G/DL 11.0-15.0 L [id number] 23:17:00 Test Item Value Reference Range Interpretation Comments HEMATOCRIT (test code = HCT/ABG) 20 % 33.0-45.0 L POC VENOUS BLOOD [id number] 23:17:00 Test Item Value Reference Range Interpretation Comments POC VENOUS BLOOD GAS PH (test 7.379 7.33-7.45 N code = POCPHV) POC VENOUS BLOOD GAS PCO2 (test 45.8 mmHg 43-47 N code = GAYICD8V) POC VENOUS BLOOD GAS PO2 (test 24.3 mmHG 10-50 N code = AZRXK9N) POC TCO2 VENOUS (test code = 28.4 CSNTDZ5Q) POC HCO3 VENOUS (test code = 27.0 MMOL/L 22-27 N ZNDFPE8E) POC BASE EXCESS VENOUS (test code 1.7 MMOL/L -4.0-4.0 N = POCBEV) POC O2 SATURATION VENOUS (test 41.6 % 60-80 L code = OAVN7DR) GLUCOSE [id number] 20:33:00 Test Item Value Reference Range Interpretation Comments GLUCOSE BEDSIDE (test 310 MG/DL 70-110 H Perfor med by certified code = 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[facility] GLUCOSE [id number] 16:55:00 Test Item Value Reference Range Interpretation Comments GLUCOSE BEDSIDE (test 48 MG/DL 70-110 L Perfor med by certified code = 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[facility] GLUCOSE [id number] 16:18:00 Test Item Value Reference Range Interpretation Comments GLUCOSE BEDSIDE (test 87 MG/DL 70-110 N Perfor med by certified code = 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[facility] GLUCOSE [id number] 15:54:00 Test Item Value Reference Range Interpretation Comments GLUCOSE BEDSIDE (test 19 MG/DL 70-110 L Perfor med by certified code = 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[facility] BASIC METABOLIC [id number] 14:57:00 Test Item Value Reference Range Interpretation [...] = POCGLU) 81 MG/DL 70-110 N HEMOGLOBIN [id number] 14:57:00 Test Item Value Reference Range Interpretation Comments HEMOGLOBIN ABG (test code = HGB/ABG) 7.3 G/DL 11.0-15.0 L [id number] 14:57:00 Test Item Value Reference Range Interpretation Comments HEMATOCRIT (test code = HCT/ABG) 22 % 33.0-45.0 L POC VENOUS BLOOD [id number] 14:57:00 Test Item Value Reference Range Interpretation Comments POC VENOUS BLOOD GAS PH (test 7.430 7.33-7.45 N code = POCPHV) POC VENOUS BLOOD GAS PCO2 (test 39.4 mmHg 43-47 L code = IVFXCH4I) POC VENOUS BLOOD GAS PO2 (test 38.4 mmHG 10-50 N code = QLZFO7U) POC TCO2 VENOUS (test code = 27.4 URWARC2S) POC HCO3 VENOUS (test code = 26.2 MMOL/L 22-27 N HOLXVL9J) POC BASE EXCESS VENOUS (test code 1.7 MMOL/L -4.0-4.0 N = POCBEV) POC O2 SATURATION VENOUS (test 74.3 % 60-80 N code = CQIN2OJ) BASIC METABOLIC [id number] 14:07:00 Test Item Value Reference Range Interpretation Comments SODIUM (test code = 137 mEq/L 134-147 N NA) POTASSIUM (test code 6.5 mEq/L 3.4-5.0 HH Critica l result called = K) to [employer] GSirishaLAB.[facility] at 14 12/18/22Nurse [...] 8.3 mg/dL 8.0-10.5 N CA) RENAL FUNCTION [id number] 13:13:00 Test Item Value Reference Range Interpretation Comments SODIUM (test code = 137 mEq/L 134-147 N NA) POTASSIUM (test code 6.6 mEq/L 3.4-5.0 HH Critica l result called = K) to [employer] GSirishaLAB.[facility] at 13 12/18/22Neugenio [...] the recommended for cassidy for GFRby the [facility] on for Adults.The GFR will not calculate if th e sex is unknown or if thepatient's ag e is <18 years. CREATININE (test code 5.7 mg/dL 0.6-1.3 H = CREAT) ALBUMIN (test code = 2.70 g/dL 3.4-5.0 L ALB) CALCIUM (test code = 8.7 mg/dL 8.0-10.5 N CA) PHOSPHOROUS (test 6.4 MG/DL 2.5-4.9 H code = PHOS) CBC W/AUTO [id number] 12:48:00 Test Item Value Reference Range Interpretation [...] REQUIRED (test code NO = MDIFF) GLUCOSE [id number] 11:55:00 Test Item Value Reference Range Interpretation Comments GLUCOSE BEDSIDE (test 102 MG/DL 70-110 N Perfor med by certified code = 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[facility] GLUCOSE [id number] 07:59:00 Test Item Value Reference Range Interpretation Comments GLUCOSE BEDSIDE (test 72 MG/DL 70-110 N Perfor med by certified code = 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[facility] GLUCOSE [id number] 20:43:00 Test Item Value Reference Range Interpretation Comments GLUCOSE BEDSIDE (test 231 MG/DL 70-110 H Perfor med by certified code = 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[facility] CBC W/AUTO [id number] 16:57:00 Test Item Value Reference Range Interpretation [...] (test code NO = MDIFF) RENAL FUNCTION [id number] 16:11:00 Test Item Value Reference Range Interpretation Comments SODIUM (test code = 135 mEq/L 134-147 N NA) POTASSIUM (test code 7.2 mEq/L 3.4-5.0 Critica l result called = K) to [...] MG/DL 2.5-4.9 H code = PHOS) GLUCOSE [id number] 16:04:00 Test Item Value Reference Range Interpretation Comments GLUCOSE BEDSIDE (test 78 MG/DL 70-110 N Perfor med by certified code = 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[facility] GLUCOSE [id number] 12:15:00 Test Item Value Reference Range Interpretation Comments GLUCOSE BEDSIDE (test 125 MG/DL 70-110 H Perfor med by certified code = 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[facility] GLUCOSE [id number] 09:41:00 Test Item Value Reference Range Interpretation Comments GLUCOSE BEDSIDE (test 124 MG/DL 70-110 H Perfor med by certified code = 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[facility] GLUCOSE [id number] 00:19:00 Test Item Value Reference Range Interpretation Comments GLUCOSE BEDSIDE (test 221 MG/DL 70-110 H Perfor med by certified code = 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[facility] GLUCOSE [id number] 21:15:00 Test Item Value Reference Range Interpretation Comments GLUCOSE BEDSIDE (test 172 MG/DL 70-110 H Perfor med by certified code = 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[facility] GLUCOSE [id number] 16:11:00 Test Item Value Reference Range Interpretation Comments GLUCOSE BEDSIDE (test 136 MG/DL 70-110 H Perfor med by certified code = 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[facility] GLUCOSE [id number] 11:53:00 Test Item Value Reference Range Interpretation Comments GLUCOSE BEDSIDE (test 235 MG/DL 70-110 H Perfor med by certified code = 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[facility] GLUCOSE [id number] 08:28:00 Test Item Value Reference Range Interpretation Comments GLUCOSE BEDSIDE (test 163 MG/DL 70-110 H Perfor med by certified code = 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[facility] GLUCOSE [id number] 22:53:00 Test Item Value Reference Range Interpretation Comments GLUCOSE BEDSIDE (test 189 MG/DL 70-110 H Perfor med by certified code = 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[facility] GLUCOSE [id number] 16:13:00 Test Item Value Reference Range Interpretation Comments GLUCOSE BEDSIDE (test 126 MG/DL 70-110 H Perfor med by certified code = 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[facility] GLUCOSE [id number] 11:56:00 Test Item Value Reference Range Interpretation Comments GLUCOSE BEDSIDE (test 267 MG/DL 70-110 H Perfor med by certified code = 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[facility] GLUCOSE [id number] 08:46:00 Test Item Value Reference Range Interpretation Comments GLUCOSE BEDSIDE (test 115 MG/DL 70-110 H Perfor med by certified code = 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[facility] GLUCOSE [id number] 16:48:00 Test Item Value Reference Range Interpretation Comments GLUCOSE BEDSIDE (test 242 MG/DL 70-110 H Perfor med by certified code = 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[facility] CBC W/AUTO [id number] 12:17:00 Test Item Value Reference Range Interpretation [...] LY#) MANUAL DIFF REQUIRED NO SLIDE R FELICITASD, (test code = MDIFF) CONSISTE NT WITH [...] 3/uL 0.0-0.1 N code = NRBC#) GLUCOSE [id number] 09:40:00 Test Item Value Reference Range Interpretation Comments GLUCOSE BEDSIDE (test 139 MG/DL 70-110 H Perfor med by certified code = 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[facility] COMPREHENSIVE METABOLIC [id number] 08:08:00 Test Item Value Reference Range Interpretation Comments SODIUM (test code = 137 mEq/L 134-147 N NA) POTASSIUM (test 6.0 mEq/L 3.4-5.0 HH Critical res ult called code = K) to María COELHOLAB.[facility] [place] [place] at 06 3012/14/22Nurse [...] recommended for cassidy for [facility]by the N [facility] Kid[facility] on for Adults.The GFR [...] H PHOSPHATASE TOTAL (test code = ALKP) [id number] 08:08:00 Test Item Value Reference Range Interpretation Comments PHOSPHOROUS (test code = PHOS) 5.1 MG/DL 2.5-4.9 H [id number] 08:08:00 Test Item Value Reference Range Interpretation Comments MAGNESIUM (test code = MAG) 2.32 mg/dL 1.80-2.40 N CALCIUM [id number] 08:08:00 Test Item Value Reference Range Interpretation Comments CALCIUM IONIZED (test code = KEISHA) 1.18 MMOL/L 1.09-1.30 N - CT LOWER EXTRM W/O C [id number] 00:00:00 [facility] 1960 Sex: F Name:CITLALY DAVIS [facility] : 1960 Age/S: 62 / F [address] [place] [address] Unit #: [id number] Loc: [place] [address] Phys: Tanner 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 FINDINGS: Limitations: Study ismotion degraded. Bones/joints: No definitive CT evidence of [...] gas. Prominent region of confluent edema just deep to the wound. This could reflect phlegmonous change or very early abscess. Evaluation limited without IV contrast. at 0811 Reportedand signed by: Remberto Arrington M.D. CC: Vero Michaels MD; Tanner Arboleda NP Technologist:Emerald Rivas. RT(R)(CT) CTDI: DLP: Trnscb Date/Time: 12/14/2022 (0811) t.SDR.MT15 Orig Print D/T: S: 12/14/2022 (0811) PAGE 1 Signed ReportGLUCOSE BEDSIDE 2022-12-13 19:46:00 Test Item Value Reference Range Interpretation Comments GLUCOSE BEDSIDE (test 103 MG/DL 70-110 N Perfor med by certified code = 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[facility] GLUCOSE [id number] 15:32:00 Test Item Value Reference Range Interpretation Comments GLUCOSE BEDSIDE (test 133 MG/DL 70-110 H Perfor med by certified code = 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[facility] GLUCOSE [id number] 11:41:00 Test Item Value Reference Range Interpretation Comments GLUCOSE BEDSIDE (test 157 MG/DL 70-110 H Perfor med by certified code = 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[facility] GLUCOSE [id number] 10:57:00 Test Item Value Reference Range Interpretation Comments GLUCOSE BEDSIDE (test 112 MG/DL 70-110 H Perfor med by certified code = 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[facility] GLUCOSE [id number] 20:47:00 Test Item Value Reference Range Interpretation Comments GLUCOSE BEDSIDE (test 329 MG/DL 70-110 H Perfor med by certified code = 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[facility] CBC W/AUTO [id number] 16:22:00 Test Item Value Reference Range Interpretation [...] 0.0-0.1 N code = NRBC#) COMPREHENSIVE METABOLIC [id number] 15:42:00 Test Item Value Reference Range Interpretation [...] H PHOSPHATASE TOTAL (test code = ALKP) [id number] 15:42:00 Test Item Value Reference Range Interpretation Comments PHOSPHOROUS (test code = PHOS) 3.4 MG/DL 2.5-4.9 N [id number] 15:42:00 Test Item Value Reference Range Interpretation Comments MAGNESIUM (test code = MAG) 2.03 mg/dL 1.80-2.40 N CALCIUM [id number] 15:42:00 Test Item Value Reference Range Interpretation Comments CALCIUM IONIZED (test code = KEISHA) 1.15 MMOL/L 1.09-1.30 N GLUCOSE [id number] 12:14:00 Test Item Value Reference Range Interpretation Comments GLUCOSE BEDSIDE (test 115 MG/DL 70-110 H Perfor med by certified code = 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[facility] GLUCOSE [id number] 08:06:00 Test Item Value Reference Range Interpretation Comments GLUCOSE BEDSIDE (test 188 MG/DL 70-110 H Perfor med by certified code = 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[facility] GLUCOSE [id number] 20:54:00 Test Item Value Reference Range Interpretation Comments GLUCOSE BEDSIDE (test 214 MG/DL 70-110 H Perfor med by certified code = 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[facility] GLUCOSE [id number] 16:50:00 Test Item Value Reference Range Interpretation Comments GLUCOSE BEDSIDE (test 214 MG/DL 70-110 H Perfor med by certified code = 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[facility] GLUCOSE [id number] 11:28:00 Test Item Value Reference Range Interpretation Comments GLUCOSE BEDSIDE (test 266 MG/DL 70-110 H Perfor med by certified code = 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[facility] GLUCOSE [id number] 07:51:00 Test Item Value Reference Range Interpretation Comments GLUCOSE BEDSIDE (test 190 MG/DL 70-110 H Perfor med by certified code = 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[facility] CBC W/AUTO [id number] 04:54:00 Test Item Value Reference Range Interpretation [...] 0.0-0.1 N code = NRBC#) COMPREHENSIVE METABOLIC [id number] 04:36:00 Test Item Value Reference Range Interpretation [...] H PHOSPHATASE TOTAL (test code = ALKP) [id number] 04:36:00 Test Item Value Reference Range Interpretation Comments PHOSPHOROUS (test code = PHOS) 3.6 MG/DL 2.5-4.9 N [id number] 04:36:00 Test Item Value Reference Range Interpretation Comments MAGNESIUM (test code = MAG) 2.10 mg/dL 1.80-2.40 N CALCIUM [id number] 04:36:00 Test Item Value Reference Range Interpretation Comments CALCIUM IONIZED (test code = KEISHA) 1.14 MMOL/L 1.09-1.30 N GLUCOSE [id number] 02:25:00 Test Item Value Reference Range Interpretation Comments GLUCOSE BEDSIDE (test 219 MG/DL 70-110 H Perfor med by certified code = 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[facility] - XR CHEST 1 [id number] 00:00:00 [facility] : 1960 Sex: F FAX: Moe Smith MD [phone] [place]: St: ADM FAX: Vero Michael MD [phone] Name: CITLALY DAVIS [facility] : 1960 Age/S: 62/F [address] [place] [address] Unit #: [id number] Loc: .23 [place] [address] Phys: Moe Peres MD Acct: [id number] Dis Date: Status: ADM IN PHONE #: [phone] Exam Date: 12/11/2022 0805 FAX #: [phone] Reason: worsening leukocytosis EXAMS: CPT CODE: [id number] XR CHEST 1 V 20423 PROCEDURE INFORMATION: Exam: XR Chest Exam date and time: 12/11/2022 8:02 AM Age: 62years old Clinical indication: Screening exam; Other screening; Additional info: Worsening leukocytosis TECHNIQUE: Imaging protocol: Radiologic exam of the chest. Views: 1 view. COMPARISON: CR XR [id number] 12/05/2022 8:14 PM FINDINGS: Lungs: Mild bilateral prominence of the interstitial markings. No consolidation. Pleural spaces: Unremarkable. No pleural effusion. No pneumothorax. Heart/Mediastinum: Stable cardiomegaly. Bones/joints: Unremarkable. Soft tissues: Left axillary and subclavian stents areunchanged. IMPRESSION: Stable cardiomegaly. Mild prominence of the interstitial markings. Findings suggestive of pulmonary edema, correlate clinically, cannot exclude atypical pneumonia. No consolidation. at 0867 Reported and signed by: Daly Hatfield M.D. CC: Moe Peres MD; Vero Michaels MD Technologist: RT Lottie(R) Trncord Date/Time/By: 12/11/2022 (827) : By: [email or web address] Orig Print D/T: S: 12/11/2022 (827) PAGE1 Signed Report GLUCOSE [id number] 20:47:00 Test Item Value Reference Range Interpretation Comments GLUCOSE BEDSIDE (test 193 MG/DL 70-110 H Perfor med by certified code = 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[facility] GLUCOSE [id number] 16:00:00 Test Item Value Reference Range Interpretation Comments GLUCOSE BEDSIDE (test 179 MG/DL 70-110 H Perfor med by certified code = 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[facility] GLUCOSE [id number] 12:52:00 Test Item Value Reference Range Interpretation Comments GLUCOSE BEDSIDE (test 387 MG/DL 70-110 H Perfor med by certified code = 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[facility] GLUCOSE [id number] 10:30:00 Test Item Value Reference Range Interpretation Comments GLUCOSE BEDSIDE (test 277 MG/DL 70-110 H Perfor med by certified code = 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[facility] GLUCOSE [id number] 08:45:00 Test Item Value Reference Range Interpretation Comments GLUCOSE BEDSIDE (test 39 MG/DL 70-110 L Perfor med by certified code = 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[facility] CBC W/AUTO [id number] 06:17:00 Test Item Value Reference Range Interpretation [...] REQUIRED (test code YES = MDIFF) WBC [id number] 06:17:00 Test Item Value Reference Range Interpretation [...] (test NORMAL code = PLTMORPH) COMPREHENSIVE METABOLIC [id number] 06:16:00 Test Item Value Reference Range Interpretation [...] the recommended for cassidy for [facility]by the [facility] for Adults.The GFR [...] H PHOSPHATASE TOTAL (test code = ALKP) [id number] 06:16:00 Test Item Value Reference Range Interpretation Comments PHOSPHOROUS (test code = PHOS) 3.0 MG/DL 2.5-4.9 N [id number] 06:16:00 Test Item Value Reference Range Interpretation Comments MAGNESIUM (test code = MAG) 2.20 mg/dL 1.80-2.40 N CALCIUM [id number] 06:16:00 Test Item Value Reference Range Interpretation Comments CALCIUM IONIZED (test code = KEISHA) 1.08 MMOL/L 1.09-1.30 L GLUCOSE [id number] 05:30:00 Test Item Value Reference Range Interpretation Comments GLUCOSE BEDSIDE (test 218 MG/DL 70-110 H Perfor med by certified code = 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[facility] GLUCOSE [id number] 00:45:00 Test Item Value Reference Range Interpretation Comments GLUCOSE BEDSIDE (test 305 MG/DL 70-110 H Perfor med by certified code = 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[facility] GLUCOSE [id number] 22:06:00 Test Item Value Reference Range Interpretation Comments GLUCOSE BEDSIDE (test 143 MG/DL 70-110 H Perfor med by certified code = 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[facility] GLUCOSE [id number] 18:06:00 Test Item Value Reference Range Interpretation Comments GLUCOSE BEDSIDE (test 293 MG/DL 70-110 H Perfor med by certified code = 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[facility] GLUCOSE [id number] 13:55:00 Test Item Value Reference Range Interpretation Comments GLUCOSE BEDSIDE (test 218 MG/DL 70-110 H Perfor med by certified code = 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[facility] GLUCOSE [id number] 11:14:00 Test Item Value Reference Range Interpretation Comments GLUCOSE BEDSIDE (test 158 MG/DL 70-110 H Perfor med by certified code = 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[facility] GLUCOSE [id number] 09:37:00 Test Item Value Reference Range Interpretation Comments GLUCOSE BEDSIDE (test 54 MG/DL 70-110 L Perfor med by certified code = 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[facility] COMPREHENSIVE METABOLIC [id number] 06:32:00 Test Item Value Reference Range Interpretation [...] for GFRby the [facility] Kidney Foundati on for Adults.The GFR will [...] H PHOSPHATASE TOTAL (test code = ALKP) [id number] 06:32:00 Test Item Value Reference Range Interpretation Comments PHOSPHOROUS (test code = PHOS) 3.5 MG/DL 2.5-4.9 N [id number] 06:32:00 Test Item Value Reference Range Interpretation Comments MAGNESIUM (test code = MAG) 2.10 mg/dL 1.80-2.40 N CALCIUM [id number] 06:32:00 Test Item Value Reference Range Interpretation Comments CALCIUM IONIZED (test code = KEISHA) 1.02 MMOL/L 1.09-1.30 L CBC W/AUTO [id number] 06:01:00 Test Item Value Reference Range Interpretation [...] REQUIRED (test code NO = MDIFF) GLUCOSE [id number] 05:48:00 Test Item Value Reference Range Interpretation Comments GLUCOSE BEDSIDE (test 152 MG/DL 70-110 H Perfor med by certified code = 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[facility] GLUCOSE [id number] 02:07:00 Test Item Value Reference Range Interpretation Comments GLUCOSE BEDSIDE (test 383 MG/DL 70-110 H Perfor med by certified code = 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[facility] GLUCOSE [id number] 21:59:00 Test Item Value Reference Range Interpretation Comments GLUCOSE BEDSIDE (test 143 MG/DL 70-110 H Perfor med by certified code = 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[facility] GLUCOSE [id number] 16:31:00 Test Item Value Reference Range Interpretation Comments GLUCOSE BEDSIDE (test 371 MG/DL 70-110 H Perfor med by certified code = 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[facility] GLUCOSE [id number] 12:23:00 Test Item Value Reference Range Interpretation Comments GLUCOSE BEDSIDE (test 101 MG/DL 70-110 N Perfor med by certified code = 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[facility] GLUCOSE [id number] 08:51:00 Test Item Value Reference Range Interpretation Comments GLUCOSE BEDSIDE (test 231 MG/DL 70-110 H Perfor med by certified code = 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[facility] COMPREHENSIVE METABOLIC [id number] 06:28:00 Test Item Value Reference Range Interpretation [...] race indifferent and is the recommended for [facility] for GFRby the N [facility] Kidney Foundati on for Adults.The GFR [...] 20-125 H TOTAL (test code = ALKP) [id number] 06:28:00 Test Item Value Reference Range Interpretation Comments PHOSPHOROUS (test code = PHOS) 3.7 MG/DL 2.5-4.9 [id number] 06:28:00 Test Item Value Reference Range Interpretation Comments MAGNESIUM (test code = MAG) 1.98 mg/dL 1.80-2.40 N CALCIUM [id number] 06:28:00 Test Item Value Reference Range Interpretation Comments CALCIUM IONIZED (test code = KEISHA) 1.00 MMOL/L 1.09-1.30 L CBC W/AUTO [id number] 06:21:00 Test Item Value Reference Range Interpretation [...] MDIFF) CONSISTE NT WITH AUTO DIFF. GLUCOSE [id number] 05:35:00 Test Item Value Reference Range Interpretation Comments GLUCOSE BEDSIDE (test 95 MG/DL 70-110 N Perfor med by certified code = 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[facility] AB HEPATITIS B [id number] 05:11:00 Test Item Value Reference Range Interpretation Comments AB HEPATITIS B > 1000.0 mIU/mL See_Comment Status of Immunity SURFACE (test code = Anti-HB s Level HBSAB) --- I ncon sistent with Immunity 0.0 - 9.9Consistent w ith Immunity >9.9 [Automated mess age] The system [employer] generated this result transmit vikki reference range : Immunity>9.9. T he reference range was not used to interpret this result as normal/abnormal . AB HEPATITIS B [id number] 05:11:00 Test Item Value Reference Range Interpretation Comments AB HEPATITIS B CORE Positive Negative A Performe d At: HD (test code = HBCAB) [facility] [id number] [place], [place] [id number] paige Leach MD Ph:[phone] GLUCOSE [id number] 01:18:00 Test Item Value Reference Range Interpretation Comments GLUCOSE BEDSIDE (test 292 MG/DL 70-110 H Perfor med by certified code = 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[facility] GLUCOSE [id number] 22:56:00 Test Item Value Reference Range Interpretation Comments GLUCOSE BEDSIDE (test 172 MG/DL 70-110 H Perfor med by certified code = 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[facility] GLUCOSE [id number] 17:48:00 Test Item Value Reference Range Interpretation Comments GLUCOSE BEDSIDE (test 161 MG/DL 70-110 H Perfor med by certified code = 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[facility] GLUCOSE [id number] 12:24:00 Test Item Value Reference Range Interpretation Comments GLUCOSE BEDSIDE (test 277 MG/DL 70-110 H Perfor med by certified code = 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[facility] GLUCOSE [id number] 10:13:00 Test Item Value Reference Range Interpretation Comments GLUCOSE BEDSIDE (test 98 MG/DL 70-110 N Perfor med by certified code = 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[facility] GLUCOSE [id number] 10:13:00 Test Item Value Reference Range Interpretation Comments GLUCOSE BEDSIDE (test 69 MG/DL 70-110 L Perfor med by certified code = 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[facility] GLUCOSE [id number] 09:23:00 Test Item Value Reference Range Interpretation Comments GLUCOSE BEDSIDE (test 115 MG/DL 70-110 H Perfor [facility] by certified code = 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[facility] COMPREHENSIVE METABOLIC [id number] 07:27:00 Test Item Value Reference Range Interpretation [...] recommended for cassidy for GFRby the N [facility] Kid[facility] Found[facility] on for Adults.The GFR [...] H PHOSPHATASE TOTAL (test code = ALKP) [id number] 07:27:00 Test Item Value Reference Range Interpretation Comments PHOSPHOROUS (test code = PHOS) 5.6 MG/DL 2.5-4.9 H [id number] 07:27:00 Test Item Value Reference Range Interpretation Comments MAGNESIUM (test code = MAG) 2.12 mg/dL 1.80-2.40 N TROP-I HIGH [id number] 07:27:00 Test Item Value Reference Range Interpretation Comments TROP-I HIGH 352 ng/L 0-34 HH Critical resul t called to SENSITIVITY (test ALEXIS YUN/María FarrellLAB.LS code = TROPIHS) at 0723 11/25 02/14Nurse read back result and tech confirmed it's correct? YESCAUTION: Uni ts of the current test me thodology (ng/L) differfr om the prior test meth odology (ng/mL) by a fa ctor of 1000. 99t h Percentile Uppe r Reference Limit (URL): Fe males: 34 ng/LMales: 54 n g/L In order to distin [facility] acute elevations of h igh sensitivitytrop onin from other clinical conditions, the FourthUnive rsal Definition of M yocardial Infarction stressesclinica l assessment and the demonstration o f a rise and/orfall in s erial troponin result s above the URL. These resu lts were obtained using Siemens AtellAttentio IM TnI Hreagent. Results from di fferent methodologies s hould not becompared to o ne another as quantitative results and URLs mayvar y by method. CALCIUM [id number] 07:27:00 Test Item Value Reference Range Interpretation Comments CALCIUM IONIZED (test code = KEISHA) 0.99 MMOL/L 1.09-1.30 L CBC W/AUTO [id number] 06:39:00 Test Item Value Reference Range Interpretation [...] REQUIRED (test code NO = MDIFF) GLUCOSE [id number] 05:36:00 Test Item Value Reference Range Interpretation Comments GLUCOSE BEDSIDE (test 180 MG/DL 70-110 H Perfor med by certified code = 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[facility] THROMBOPLASTIN TIME [id number] 02:05:00 Test Item Value Reference Range Interpretation Comments THROMBOPLASTIN TIME 49.0 Seconds 25.0-39.5 H Therape utic Range: PARTIAL (test code = 50.4 - 88.3 Seconds PTT) Effective 03/10/2019 GLUCOSE [id number] 01:46:00 Test Item Value Reference Range Interpretation Comments GLUCOSE BEDSIDE (test 143 MG/DL 70-110 H Perfor med by certified code = 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[facility] GLUCOSE [id number] 21:18:00 Test Item Value Reference Range Interpretation Comments GLUCOSE BEDSIDE (test 207 MG/DL 70-110 H Perfor med by certified code = 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[facility] THROMBOPLASTIN TIME [id number] 19:57:00 Test Item Value Reference Range Interpretation Comments THROMBOPLASTIN TIME 61.6 Seconds 25.0-39.5 H Therape utic Range: PARTIAL (test code = 50.4 - 88.3 Seconds PTT) Effective 03/10/2019 COMMENTS: 6HR REDRAW FROM HEPARIN TITRATION/BOLUS 1330GLUCOSE [id number] 17:17:00 Test Item Value Reference Range Interpretation Comments GLUCOSE BEDSIDE (test 79 MG/DL 70-110 N Perfor med by certified code = 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[facility] AG HEPATITIS B [id number] 13:58:00 Test Item Value Reference Range Interpretation Comments AG HEPATITIS B SURFACE NON REACTIVE INDEX NonReactive (test code = HBSAG) GLUCOSE [id number] 13:00:00 Test Item Value Reference Range Interpretation Comments GLUCOSE BEDSIDE (test 215 MG/DL 70-110 H Perfor med by certified code = 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[facility] THROMBOPLASTIN TIME [id number] 12:52:00 Test Item Value Reference Range Interpretation [...] (test code = LDL) NEAR OPTIM AL/ABOVE [id number] 89 HIGH>QQ=144 VANDANA Y HIGH*Guidelines provided by the National Choles terol EducationProgra m Adult Treatment Panel III CREATINE KINASE (CK)2022-12-06 11:24:00 Test Item Value Reference Range Interpretation Comments CREATINE KINASE (CK) (test code = 45 Units/L 34-145 N CK) [id number] 11:24:00 Test Item Value Reference Range Interpretation Comments CKMB (test code = 0.1 ng/mL 0-5.0 N CUT OFF:>5 ng/mL is CKMBT) suggested as be ing consistent with AMI. TROP-I HIGH [id number] 11:24:00 Test Item Value Reference Range Interpretation [...] These resu lts were obtained using Siemens AtellAttentio IM TnI Hreagent. Results from di fferent methodologies s hould not becompared to o ne another as quantitative results and URLs mayvar y by method. 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 Results from di fferent methodologies s hould not becompared to o ne another as quantitative results and URLs mayvar y by method. 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 Negative result s do not preclude PKNS-IyD-1eouxq tion and should not be u sed as the sole basis forp atient management deci sions. Negative result s should beconsidered in the context of a patient's recent exposures,histo ry, presence of clinical sig ns and symptoms consis tentwith COVID-19. TROP-I HIGH [id number] 00:30:00 Test Item Value Reference Range Interpretation [...] and URLs mayvar y by method. LACTIC [id number] 23:01:00 Test Item Value Reference Range Interpretation Comments LACTIC ACID (test code = LACT) 1.3 mmol/L 0.4-1.9 N LIPOPROTEIN [id number] 21:16:00 Test Item Value Reference Range Interpretation Comments LIPOPROTEIN LDL 88.0 mg/dL 0-100 N <100 OPTIMAL 100-129 NEAR (test code = LDL) OPTIMAL/AB OVE [id number] 89 HIGH>DS=596 VANDANA Y HIGH*Guidelines provided by the National Cholesterol EducationProgra m Adult Treatment Panel III B-TYPE NATRIURETIC [id number] 21:04:00 Test Item Value Reference Range Interpretation Comments B-TYPE NATRIURETIC PEPTIDE (test 3016.0 PG/ML 0-100 H code = BNP) TROP-I HIGH [id number] 20:58:00 Test Item Value Reference Range Interpretation Comments TROP-I HIGH 500 ng/L 0-34 HH Critical result called to SENSITIVITY (test SHALINI Rowlye code = TROPIHS) [id number] at 205512/05/22Nurse r ead back result and [...] These resu lts were obtained using Siemens AtellAttentio IM TnI Hreagent. Results from di fferent methodologies s hould not becompared to o ne another as quantitative results and URLs mayvar y by method. 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[facility] CBC W/AUTO [id number] 20:41:00 Test Item Value Reference Range Interpretation [...] code = MDIFF) - XR CHEST 1 [id number] 00:00:00 [facility] 1960 Sex: F FAX: Devon Mai Shasta: St: REG Name: CITLALY DAVIS [facility] : 1960 Age/S: 62/F [address] [place] [address] Unit #: [id number] Loc: [place] [address] Phys: Devon Cole MD Acct: [id number] Date: Status: REG ER PHONE #: [phone] Exam Date: 12/05/20222023 FAX #: [phone] Reason: Chest Pain EXAMS: CPT CODE: [id number] XR CHEST 1 V 42758 PROCEDURE INFORMATION: Exam: XR Chest Examdate and time: 12/05/2022 8:14 PM Age: 62 years old Clinical indication: Other: Chest pain TECHNIQUE:Imaging protocol: Radiologic exam of the chest. Views: 1 view. COMPARISON: CR XR CHEST 1V 07/24/2019 3:21 PM FINDINGS: Lungs: Mild hypoinflation associated with central pulmonary vascular congestion andhazy bilateral perihilar/lower lobe opacities asymmetrically greater in the right lower lobe suggesting asymmetrical pulmonary edema or pneumonia. Small calcified granuloma medially in the left lung apex. Pleural spaces: Unremarkable. No pleural effusion. No pneumothorax. Heart/Mediastinum: Stable mild cardiomegaly. 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 No definite acute osseous abnormality impression Soft tissues: Left axillary and subclavian stents are again noted. IMPRESSION: 1. Mild hypoinflation associated with central pulmonary vascular congestion and hazy bilateral perihilar/lower lobe opacities asymmetrically greaterin the right lower lobe suggesting asymmetrical pulmonary edema or pneumonia. 2. Stable mild cardiomegaly. 3. 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 at 2049 Reported and signed by: Lester Ureña M.D. CC: Devon Cole MD Technologist: Jey Dallas Trnscrd Date/Time/By:12/05/2022 (2049) : By: [email or web address] Orig Print D/T: S: 12/05/2022 (2049) PAGE 1 Signed ReportPOCT GLUCOSE (AUTOMATED)2022-10-25 14:39:49 Test Item Value Reference Range Interpretation Comments POCT GLU (test code = 7182272339) 143 mg/dL 70-110 H Lab Interpretation (test code = Abnormal 00951-0) [facility] GLUCOSE (AUTOMATED)2022-10-25 14:39:49 Test Item Value Reference Range Interpretation Comments POCT GLU (test code = 4455026553) 143 mg/dL 70-110 H Lab Interpretation (test code = Abnormal 69086-9) [facility] GLUCOSE (AUTOMATED)2022-10-25 10:22:36 Test Item Value Reference Range Interpretation Comments POCT GLU (test code = 7001071056) 105 mg/dL 70-110 Lab Interpretation (test code = Normal 34212-2) [facility] GLUCOSE (AUTOMATED)2022-10-25 07:05:36 Test Item Value Reference Range Interpretation Comments POCT GLU (test code = 9136753565) 203 mg/dL 70-110 H Lab Interpretation (test code = Abnormal 79088-7) [facility] WHOLE [id number] 03:50:36 Test Item Value Reference Range Interpretation Comments Vitamin B1, Whole 108 nmol/L 70-180 INTERPRETI VE INFORMATION: Blood (test code = Vitamin B 1, Whole Blood 28250-4) This assay zaida ures the concentration o [...] is intended for clinical purposes.Perfor med By: [facility] [address] [id number] aboratory Director: Sofya Mcfarlane MD, PhD [facility] (THIAMINE), WHOLE [id number] 03:50:36 Test Item Value Reference Range Interpretation Comments Vitamin B1, Whole 108 nmol/L 70-180 INTERPRETI VE INFORMATION: Blood (test code = Vitamin B 1, Whole Blood 56219-0) This assay zaida ures the concentration o [...] is intended for clinical purposes.[facility] med [facility]: [facility] [address] [id number] aboratory Director: Sofya Mcfarlane MD, PhD [facility]2022-10-25 02:11:24 Test Item Value Reference Range Interpretation Comments POCT GLU (test code = 8805271110) 182 mg/dL 70-110 H Lab Interpretation (test code = Abnormal 17576-4) [facility] # 00:01:14 Test Item Value Reference Range Interpretation Comments Blood Culture-Aerobic No organisms No growth Previo us (test code = 33313-1) isolated prelim inary verified result was Culture In Progress on 10/19/2022 at 2102 CSTPreviou s preliminary verified result was No growth a t 24 hours on 10/20/2022 at 1801 CSTPreviou s preliminary verified result was No growth a t 48 hours on 10/21/2022 at 1801 CSTPreviou s preliminary verified result was No growth a t 72 hours on 10/22/2022 at 1801 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 No growth Previous Culture-Anaerobic isolated preliminar y (test code = 32644-3) verifi ed result was Culture In Progress on 10/19/2022 at 2102 CSTPreviou s preliminary verified result was No growth a t 24 hours on 10/20/2022 at 1801 CSTPreviou s preliminary verified result was No growth a t 48 hours on 10/21/2022 at 1801 CSTPreviou s preliminary verified result was No growth a t 72 hours on 10/22/2022 at 1801 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 Lab Interpretation Normal (test code = 40015-1) [facility] GLUCOSE (AUTOMATED)2022-10-24 17:50:26 Test Item Value Reference Range Interpretation Comments POCT GLU (test code = 9076219437) 226 mg/dL 70-110 H Lab Interpretation (test code = Abnormal 21596-3) [facility] GLUCOSE (AUTOMATED)2022-10-24 15:33:06 Test Item Value Reference Range Interpretation Comments POCT GLU (test code = 0356263633) 107 mg/dL 70-110 Lab Interpretation (test code = Normal 52439-8) [facility] 12:16:53 Test Item Value Reference Range Interpretation Comments PHOSPHORUS (test code = 6108875006) 4.6 mg/dL 2.5-5.0 Lab Interpretation (test code = Normal 54553-1) [facility] 12:16:53 Test Item Value Reference Range Interpretation Comments MAGNESIUM (test code = 5915330565) 2.3 mg/dL 1.7-2.4 Lab Interpretation (test code = Normal 00939-7) [facility] METABOLIC PANEL (NA, K, CL, CO2, GLUCOSE, BUN, CREATININE, CA)2022-10-24 12:16:53 Test Item Value Reference Range Interpretation Comments NA (test code = 134 mmol/L 135-145 L 5839301558) K (test code = 4.8 mmol/L 3.5-5.0 7540484368) CL (test code = 99 mmol/L 98-108 6500227083) CO2 TOTAL (test code = 18 mmol/L 23-31 L 2100751117) AGAP (test code = 2-16 H 0051091341) BUN (test code = 46 mg/dL 7-23 H 6225805102) GLUCOSE (test code = 93 mg/dL 70-110 4809896171) CREATININE (test code = 7.26 mg/dL 0.50-1.04 H 8750564726) CALCIUM (test code = 9.0 mg/dL 8.6-10.6 5738113933) eGFR (test code = mL/min/1.73m2 5087456520) ALAINA (test code = ALAINA) Association of [...] tests). Lab Interpretation Abnormal (test code = 82942-0) [facility] 12:16:53 Test Item Value Reference Range Interpretation Comments PHOSPHORUS (test code = 4222650229) 4.6 mg/dL 2.5-5.0 Lab Interpretation (test code = Normal 09477-4) [facility] METABOLIC PANEL (NA, K, CL, CO2, GLUCOSE, BUN, CREATININE, CA)2022-10-24 12:16:53 Test Item Value Reference Range Interpretation Comments NA (test code = 134 mmol/L 135-145 L 2322070583) K (test code = 4.8 mmol/L 3.5-5.0 1864514741) CL (test code = 99 mmol/L 98-108 7791660084) CO2 TOTAL (test code = 18 mmol/L 23-31 L 3909418206) AGAP (test code = 2-16 H 2299751230) BUN (test code = 46 mg/dL 7-23 H 2991379953) GLUCOSE (test code = 93 mg/dL 70-110 4373389090) CREATININE (test code = 7.26 mg/dL 0.50-1.04 H 9045590141) CALCIUM (test code = 9.0 mg/dL 8.6-10.6 9594107897) eGFR (test code = mL/min/1.73m2 1010218988) ALAINA (test code = ALAINA) Association of [...] tests). Lab Interpretation Abnormal (test code = 90975-1) [facility] 12:16:53 Test Item Value Reference Range Interpretation Comments MAGNESIUM (test code = 8171766945) 2.3 mg/dL 1.7-2.4 Lab Interpretation (test code = Normal 66483-2) [facility] HospitalCB WITHOUT [id number] 11:10:22 Test Item Value Reference Range Interpretation Comments WBC (test code = 6690-2) See_Comment [A utomated message] The system [employer] generated this result transmit vikki reference range : 4.30 - 11.10 10*3/?L. The reference range was not used to interpret this result as normal/abnormal . RBC (test code = 789-8) See_Comment L [Au tomated message] The system [employer] generated this result transmit vikki reference range [...] 777-3) See_Comment [Au tomated message] The system [employer] generated this result transmit vikki reference range : 166 - 358 10*3/?L. The reference range was not used to interpret this result as normal/abnormal . MPV (test code = 9.7 fL 9.5-12.9 84741-9) RDW-CV (test code = 14.8 % 12.0-15.5 788-0) RDW-SD (test code = 45.3 fL 39.0-49.9 73702-7) NRBC x10^3 (test code = See_Comment [Au tomated message] 6860956948) The system [employer] generated this result transmit vikki reference range : 10*3/?L. The reference range was not used to interpret this result as normal/abnormal . NRBC/100 WBC (test code See_Comment [Au tomated message] = 2352921928) The system [employer] generated this result transmit vikki reference range : 0.0 - 10.0 /100 WBC s. The reference r henry was not used to interpret this result as normal/abnormal . IPF % (test code = 7349089612) Lab Interpretation (test Abnormal code = 03446-1) [facility] WITHOUT [id number] 11:10:22 Test Item Value Reference Range Interpretation Comments WBC (test code = 6690-2) See_Comment [A utomated message] The system [employer] generated this result transmit vikki reference range : 4.30 - 11.10 10*3/?L. The reference range was not used to interpret this result as normal/abnormal . RBC (test code = 789-8) See_Comment L [Au tomated message] The system [employer] generated this result transmit vikki reference range [...] 777-3) See_Comment [Au tomated message] The system [employer] generated this result transmit vikki reference range : 166 - 358 10*3/?L. The reference range was not used to interpret this result as normal/abnormal . MPV (test code = 9.7 fL 9.5-12.9 61222-0) RDW-CV (test code = 14.8 % 12.0-15.5 788-0) RDW-SD (test code = 45.3 fL 39.0-49.9 73942-7) NRBC x10^3 (test code = See_Comment [Au tomated message] 9171038949) The system [employer] h generated this result transmit vikki reference range : 10*3/?L. The reference range was not used to interpret this result as normal/abnormal . NRBC/100 WBC (test code See_Comment [Au tomated message] = 9315500218) The system [employer] generated this result transmit vikki reference range : 0.0 - 10.0 /100 WBC s. The reference r henry was not used to interpret this result as normal/abnormal . IPF % (test code = 0568819982) Lab Interpretation (test Abnormal code = 32212-0) [facility] GLUCOSE (AUTOMATED)2022-10-24 10:09:10 Test Item Value Reference Range Interpretation Comments POCT GLU (test code = 8204332256) 88 mg/dL 70-110 Lab Interpretation (test code = Normal 27944-1) [facility] GLUCOSE (AUTOMATED)2022-10-24 05:42:27 Test Item Value Reference Range Interpretation Comments POCT GLU (test code = 2408136662) 183 mg/dL 70-110 H Lab Interpretation (test code = Abnormal 09667-2) [facility] GLUCOSE (AUTOMATED)2022-10-24 03:27:22 Test Item Value Reference Range Interpretation Comments POCT GLU (test code = 1634847766) 169 mg/dL 70-110 H Lab Interpretation (test code = Abnormal 95594-5) [facility] GLUCOSE (AUTOMATED)2022-10-23 23:17:48 Test Item Value Reference Range Interpretation Comments POCT GLU (test code = 0968748384) 197 mg/dL 70-110 H Lab Interpretation (test code = Abnormal 17036-2) [facility] GLUCOSE (AUTOMATED)2022-10-23 20:23:42 Test Item Value Reference Range Interpretation Comments POCT GLU (test code = 7668696526) 219 mg/dL 70-110 H Lab Interpretation (test code = Abnormal 67228-0) [facility]2022-10-23 14:52:30 Test Item Value Reference Range Interpretation Comments POCT GLU (test code = 1986413742) 157 mg/dL 70-110 H Lab Interpretation (test code = Abnormal 50258-1) [facility] 14:28:59 Test Item Value Reference Range Interpretation Comments PHOSPHORUS (test code = 7919443909) 4.3 mg/dL 2.5-5.0 Lab Interpretation (test code = Normal 21771-9) [facility]22-[facility] 14:28:59 Test Item Value Reference Range Interpretation Comments MAGNESIUM (test code = 2184027659) 2.2 mg/dL 1.7-2.4 Lab Interpretation (test code = Normal 31238-4) [facility] (NA, K, CL, CO2, GLUCOSE, BUN, CREATININE, CA)2022-10-23 14:28:58 Test Item Value Reference Range Interpretation Comments NA (test code = 136 mmol/L 135-145 6109462383) K (test code = 4.5 mmol/L 3.5-5.0 6879753735) CL (test code = 101 mmol/L 98-108 4133820988) CO2 TOTAL (test code = 19 mmol/L 23-31 L 3308607495) AGAP (test code = 2-16 8155025209) BUN (test code = 34 mg/dL 7-23 H 5787883415) GLUCOSE (test code = 149 mg/dL 70-110 H 9776159248) CREATININE (test code = 5.13 mg/dL 0.50-1.04 H 8271245274) CALCIUM (test code = 8.9 mg/dL 8.6-10.6 9710872090) eGFR (test code = mL/min/1.73m2 6747096811) ALAINA (test code = ALAINA) Association of [...] tests). Lab Interpretation Abnormal (test code = 05086-8) [facility] WITHOUT [id number] 14:20:19 Test Item Value Reference Range Interpretation Comments WBC (test code = 6690-2) See_Comment [A utomated message] The system [employer] generated this result transmit vikki reference range : 4.30 - 11.10 10*3/?L. The reference range was not used to interpret this result as normal/abnormal . RBC (test code = 789-8) See_Comment L [Au tomated message] The system [employer] generated this result transmit vikki reference range [...] 777-3) See_Comment [Au tomated message] The system [employer] generated this result transmit vikki reference range : 166 - 358 10*3/?L. The reference range was not used to interpret this result as normal/abnormal . MPV (test code = 10.0 fL 9.5-12.9 54058-1) RDW-CV (test code = 14.8 % 12.0-15.5 788-0) RDW-SD (test code = 47.0 fL 39.0-49.9 27509-0) NRBC x10^3 (test code = See_Comment [Au tomated message] 5657209195) The system [employer] generated this result transmit vikki reference range : 10*3/?L. The reference range was not used to interpret this result as normal/abnormal . NRBC/100 WBC (test code See_Comment [Au tomated message] = 3077721078) The system [employer] generated this result transmit vikki reference range : 0.0 - 10.0 /100 WBC s. The reference r henry was not used to interpret this result as normal/abnormal . IPF % (test code = 5753720783) Lab Interpretation (test Abnormal code = 16915-6) [facility] GLUCOSE (AUTOMATED)2022-10-23 10:30:55 Test Item Value Reference Range Interpretation Comments POCT GLU (test code = 0077641251) 130 mg/dL 70-110 H Lab Interpretation (test code = Abnormal 32110-1) [facility] GLUCOSE (AUTOMATED)2022-10-23 06:01:44 Test Item Value Reference Range Interpretation Comments POCT GLU (test code = 0728691692) 144 mg/dL 70-110 H Lab Interpretation (test code = Abnormal 19501-1) [facility] GLUCOSE (AUTOMATED)2022-10-23 02:36:48 Test Item Value Reference Range Interpretation Comments POCT GLU (test code = 9388348738) 194 mg/dL 70-110 H Lab Interpretation (test code = Abnormal 65462-8) [facility] GLUCOSE (AUTOMATED)2022-10-22 23:13:29 Test Item Value Reference Range Interpretation Comments POCT GLU (test code = 2713774029) 238 mg/dL 70-110 H Lab Interpretation (test code = Abnormal 71087-2) [facility] GLUCOSE (AUTOMATED)2022-10-22 18:40:14 Test Item Value Reference Range Interpretation Comments POCT GLU (test code = 7406105379) 163 mg/dL 70-110 H Lab Interpretation (test code = Abnormal 44479-5) [facility] GLUCOSE (AUTOMATED)2022-10-22 13:47:13 Test Item Value Reference Range Interpretation Comments POCT GLU (test code = 4182562743) 143 mg/dL 70-110 H Lab Interpretation (test code = Abnormal 05795-2) [facility] GLUCOSE (AUTOMATED)2022-10-22 10:33:55 Test Item Value Reference Range Interpretation Comments POCT GLU (test code = 8759583571) 166 mg/dL 70-110 H Lab Interpretation (test code = Abnormal 47898-4) [facility] GLUCOSE (AUTOMATED)2022-10-22 07:11:56 Test Item Value Reference Range Interpretation Comments POCT GLU (test code = 9154019478) 231 mg/dL 70-110 H Lab Interpretation (test code = Abnormal 62486-7) [facility] GLUCOSE (AUTOMATED)2022-10-22 03:08:08 Test Item Value Reference Range Interpretation Comments POCT GLU (test code = 0172781790) 273 mg/dL 70-110 H Lab Interpretation (test code = Abnormal 12938-1) [facility] GLUCOSE (AUTOMATED)2022-10-21 23:05:29 Test Item Value Reference Range Interpretation Comments POCT GLU (test code = 0108715549) 308 mg/dL 70-110 H Lab Interpretation (test code = Abnormal 23419-7) [facility] [id number] 21:15:43 Test Item Value Reference Range Interpretation Comments PHENY FREE (test code 1.0-2.0 L = 7761566199) ALAINA (test code = ALAINA) Toxic Range: ? Greater than 2.5 ug/mL Test developed and characteristics determined by [facility] Laboratory Services. Lab Interpretation Abnormal (test code = 26004-5) [facility] [id number] 21:15:43 Test Item Value Reference Range Interpretation Comments PHENY FREE (test code 1.0-2.0 L = 3248051809) ALAINA (test code = ALAINA) Toxic Range: ? Greater than 2.5 ug/mL Test developed and characteristics determined by [facility] [facility]. Lab Interpretation Abnormal (test code = 53983-5) [facility] 18:45:36 Test Item Value Reference Range Interpretation Comments POCT GLU (test code = 7038168949) 324 mg/dL 70-110 H Lab Interpretation (test code = Abnormal 95155-6) [facility] (NA, K, CL, CO2, GLUCOSE, BUN, CREATININE, CA)2022-10-21 18:35:28 Test Item Value Reference Range Interpretation Comments NA (test code = 134 mmol/L 135-145 L 8396284088) K (test code = 5.3 mmol/L 3.5-5.0 H 2456888870) CL (test code = 93 mmol/L 98-108 L 4603854545) CO2 TOTAL (test code = 28 mmol/L 23-31 7740031725) AGAP (test code = 2-16 0122361988) BUN (test code = 54 mg/dL 7-23 H 8525298347) GLUCOSE (test code = 279 mg/dL 70-110 H 0430533966) CREATININE (test code = 6.42 mg/dL 0.50-1.04 H 3972476284) CALCIUM (test code = 8.2 mg/dL 8.6-10.6 L 6706628441) eGFR (test code = mL/min/1.73m2 4357683947) ALAINA (test code = ALAINA) Association of [...] tests). Lab Interpretation Abnormal (test code = 44477-9) [facility] GLUCOSE (AUTOMATED)2022-10-21 15:00:49 Test Item Value Reference Range Interpretation Comments POCT GLU (test code = 5721386241) 123 mg/dL 70-110 H Lab Interpretation (test code = Abnormal 31103-6) [facility] GLUCOSE (AUTOMATED)2022-10-21 11:33:39 Test Item Value Reference Range Interpretation Comments POCT GLU (test code = 9561830845) 129 mg/dL 70-110 H Lab Interpretation (test code = Abnormal 06470-7) [facility] GLUCOSE (AUTOMATED)2022-10-21 06:18:09 Test Item Value Reference Range Interpretation Comments POCT GLU (test code = 9620857569) 145 mg/dL 70-110 H Lab Interpretation (test code = Abnormal 88950-1) [facility] GLUCOSE (AUTOMATED)2022-10-21 03:10:53 Test Item Value Reference Range Interpretation Comments POCT GLU (test code = 6925075857) 117 mg/dL 70-110 H Lab Interpretation (test code = Abnormal 70267-8) [facility] GLUCOSE (AUTOMATED)2022-10-20 22:59:19 Test Item Value Reference Range Interpretation Comments POCT GLU (test code = 9021692427) 174 mg/dL 70-110 H Lab Interpretation (test code = Abnormal 53041-3) [facility]PHENYTOIN [id number] 22:57:19 Test Item Value Reference Range Interpretation Comments PHENY FREE (test code 1.0-2.0 L = 8499867966) ALAINA (test code = ALAINA) Toxic Range: ? Greater than 2.5 ug/mL Test developed and characteristics determined by [facility] Laboratory Services. Lab Interpretation Abnormal (test code = 22987-7) [facility]2022-10-20 19:37:31 Test Item Value Reference Range Interpretation Comments POCT GLU (test code = 9676898421) 86 mg/dL 70-110 Lab Interpretation (test code = Normal 38422-8) [facility]TR[facility]IN [id number] 19:03:02 Test Item Value Reference Interpretation Comments Range TROPONIN I (test 0.423 ng/mL See_Comment H [Automated code = 1525499096) message] The system which generated this result [...] biotin. Lab Interpretation Abnormal (test code = 33960-2) [facility] [id number] 19:03:02 Test Item Value Reference Interpretation Comments Range TROPONIN I (test 0.423 ng/mL See_Comment H [Automated code = 2191239074) message] The system which generated this result [...] biotin. Lab Interpretation Abnormal (test code = 31099-8) [id number] 15:37:05 Test Item Value Reference Interpretation Comments Range TROPONIN I (test 0.520 ng/mL See_Comment H [Automated code = 1121450325) message] The system which generated this result [...] biotin. Lab Interpretation Abnormal (test code = 18780-6) [facility] (NA, K, CL, CO2, GLUCOSE, BUN, CREATININE, CA)2022-10-20 13:42:17 Test Item Value Reference Range Interpretation Comments NA (test code = 142 mmol/L 135-145 5741914946) K (test code = 6.3 mmol/L 3.5-5.0 HH 1799099806) CL (test code = 100 mmol/L 98-108 8940725885) CO2 TOTAL (test code = 24 mmol/L 23-31 0629832464) AGAP (test code = 2-16 H 7328993141) BUN (test code = 72 mg/dL 7-23 H 1560040482) GLUCOSE (test code = 110 mg/dL 70-110 1624563104) CREATININE (test code = 8.77 mg/dL 0.50-1.04 H 5095436334) CALCIUM (test code = 9.8 mg/dL 8.6-10.6 1483344773) eGFR (test code = mL/min/1.73m2 3902309211) ALAINA (test code = ALAINA) Association of [...] tests). Lab Interpretation Abnormal (test code = 52489-8) [facility]MAGN[facility]UM2022-[facility]-26 13:23:50 Test Item Value Reference Range Interpretation Comments MAGNESIUM (test code = 4753673225) 2.2 mg/dL 1.7-2.4 Lab Interpretation (test code = Normal 75864-9) [facility]PHOSPHORUS2022-11-26 13:23:50 Test Item Value Reference Range Interpretation Comments PHOSPHORUS (test code = 10.5 mg/dL 2.5-5.0 H 8494068805) Lab Interpretation (test code = Abnormal 44533-0) [facility] GLUCOSE (AUTOMATED)2022-10-20 10:16:24 Test Item Value Reference Range Interpretation Comments POCT GLU (test code = 0151503763) 117 mg/dL 70-110 H Lab Interpretation (test code = Abnormal 49619-3) [facility] GLUCOSE (AUTOMATED)2022-10-20 06:29:35 Test Item Value Reference Range Interpretation Comments POCT GLU (test code = 7457395377) 110 mg/dL 70-110 Lab Interpretation (test code = Normal 08155-9) [facility] [id number] 04:17:41 Test Item Value Reference Range Interpretation Comments PTH-INTACT (test code = 1239.0 pg/mL 12.0-88.0 H 4873414169) PTH-CA Interpretation [facility] (test code = 8285695191) jose a needed for interpretation. CALCIUM (test code = 9.1 mg/dL 8.6-10.6 6467032640) Lab Interpretation (test Abnormal code = 32744-6) [facility] PTH CALCIUM [id number] 04:17:41 Test Item Value Reference Range Interpretation Comments PTH-INTACT (test code = 1239.0 pg/mL 12.0-88.0 H 3111577129) PTH-CA Interpretation [facility] clinical (test code = 4602097711) jose a needed for interpretation. CALCIUM (test code = 9.1 mg/dL 8.6-10.6 8422298615) Lab Interpretation (test Abnormal code = 01143-3) [facility] HospitalSALICYLATE2022-11-26 03:14:15 SALICYLATE<10mg/L112/19/2021 9:14 PM [facility] LABORATORY SERVICESTherapeutic Range: ? Analgesic and Antipyretic Use ? 20-100 mg/L ? ? Anti- Inflammatory Use ? 100-250 mg/L Toxic Range: ? Greater than 300 mg/LUnTexas [facility] Hospital PlanoSALICYLATE 2022-10-20 03:14:15SALICYLATE<10mg/L112/19/2021 9:14 PM [facility] LABORATORY SERVICESTherapeutic Range: ? Analgesic and Antipyretic Use ? 20- 100 mg/L ? ? Anti-Inflammatory Use ? 100-250 mg/L Toxic Range: ? Greater than 300 mg/LUnTexas [facility] Hospital PlanoACETAMINOPHEN2022-11-26 03:14:05 Test Item Value Reference Range Interpretation Comments ACETAMINOP (test code = 10.0-30.0 L 8954586624) ALAINA (test code = ALAINA) Toxic: Greater than 200 ug/mL @ 4 hour post ingestion or greater than 50 ug/mL @ 12 hour post ingestion Lab Interpretation (test Abnormal code = 49575-8) [facility]:14[facility]05 Test Item Value Reference Range Interpretation Comments ACETAMINOP (test code = 10.0-30.0 L 1327267415) ALAINA (test code = ALAINA) Toxic: Greater than 200 ug/mL @ 4 hour post ingestion or greater than 50 ug/mL @ 12 hour post ingestion Lab Interpretation (test Abnormal code = 68803-3) [facility]PO[facility])2022-10-20 02:54:34 Test Item Value Reference Range Interpretation Comments POCT GLU (test code = 5687399986) 102 mg/dL 70-110 Lab Interpretation (test code = Normal 31572-7) [facility] HospitalLipid Panel (Total Cholesterol, Triglycerides, HDL) - [id number] 02:43:16 Test Item Value Reference Range Interpretation Comments CHOL (test code = 228 mg/dL 120-200 H 5354511172) HDL (test code = 55 mg/dL See_Comment [Automated message] 2776471253) The system Avi[employer] generated this result transmit vikki reference range : >=50. The refer ence range was not u sed to interpret th is result as normal/abnormal . HDLC RATIO (test code = See_Comment [Au tomated message] 7605875127) The system Avi[employer] generated this result transmit vikki reference range : <=4.5. The refe rence range was not u sed to interpret th is result as normal/abnormal . TRIG (test code = 148 mg/dL 30-170 3926394274) LDL CHOL (test code = 143 mg/dL See_Comment [Auto mated message] 44501-3) The system Avi[employer] generated this result transmit vikki reference range : <=160. The refe rence range was not u sed to interpret th is result as normal/abnormal . VLDL (test code = 30 mg/dL 5-60 9612287668) Lab Interpretation (test Abnormal code = 28591-0) [facility] HospitalLip[facility] (Total Cholesterol, Triglycerides, HDL) - [id number] 02:43:16 Test Item Value Reference Range Interpretation Comments CHOL (test code = 228 mg/dL 120-200 H 9404586465) HDL (test code = 55 mg/dL See_Comment [Automated message] 7532477774) The system Avi[employer] generated this result transmit vikki reference range : >=50. The refer ence range was not u sed to interpret th is result as normal/abnormal . HDLC RATIO (test code = See_Comment [Au tomated message] 2742281887) The system Avi[employer] generated this result transmit vikki reference range : <=4.5. The refe rence range was not u sed to interpret th is result as normal/abnormal . TRIG (test code = 148 mg/dL 30-170 6766893668) LDL CHOL (test code = 143 mg/dL See_Comment [Auto mated message] 31250-4) The system Avi[employer] generated this result transmit vikki reference range : <=160. The refe rence range was not u sed to interpret th is result as normal/abnormal . VLDL (test code = 30 mg/dL 5-60 7155542451) Lab Interpretation (test Abnormal code = 37709-6) [facility] HospitalAC [facility] 20 + Lactic [id number] 02:12:43 Test Item Value Reference Range Interpretation Comments PH (test code = 2) 7.35-7.45 PCO2 (test code = See_Comment [Automate d 0358059500) message] The sy stem which generated this result transmitted reference range : 35 - 45 mmHg. The reference range was not used to interpret this result as normal/abnormal . PO2 (test code = See_Comment L [Automated 7407760569) message] The sy stem which generated this result transmitted reference range : 80 - 100 mmHg. The reference range was not used to interpret this result as normal/abnormal . HCO3 (test code = See_Comment [Automate d 5814521093) message] The sy stem which generated this result transmitted reference range : 22 - 26 mEq/L. The reference range was not used to interpret this result as normal/abnormal . BE (test code = See_Comment [Automated 9026304104) message] The sy stem which generated this result transmitted reference range : -3.0 - 3.0 mEq/ L. The reference r henry was not used to interpret this result as normal/abnormal . THB (test code = 10.8 g/dL 12.0-16.0 L 1656173829) %O2HB (test code = 93.4 % 94.0-99.0 L 3545235073) %COHB ART (test code = 0.4 % 0.0-1.5 7001193179) %METHB ART (test code = 0.3 % 0.4-1.5 L 0546423415) VOL%O2 ART (test code = 14.3 % 15.0-23.0 L 8137240362) NA (test code = 142 mmol/L 135-145 6203475627) K+ (test code = 5.2 mmol/L 3.5-5.0 H 3281086612) AC CA IONZ (test code = 4.80 mg/dL 4.50-5.30 8022470534) GLUCOSE (test code = 109 mg/dL 70-110 3108157458) LACTIC ACID (test code 1.56 mmol/L 0.50-2.20 = 7409486985) Lab Interpretation Abnormal (test code = 69251-3) [facility] HospitalAC [facility] 20 + Lactic [id number] 02:12:43 Test Item Value Reference Range Interpretation Comments PH (test code = 2) 7.35-7.45 PCO2 (test code = See_Comment [Automate d 7293434034) message] The sy stem which generated this result transmitted reference range : 35 - 45 mmHg. The reference range was not used to interpret this result as normal/abnormal . PO2 (test code = See_Comment L [Automated 1860344937) message] The sy stem which generated this result transmitted reference range : 80 - 100 mmHg. The reference range was not used to interpret this result as normal/abnormal . HCO3 (test code = See_Comment [Automate d 2588442995) message] The sy stem which generated this result transmitted reference range : 22 - 26 mEq/L. The reference range was not used to interpret this result as normal/abnormal . BE (test code = See_Comment [Automated 9057870494) message] The sy stem which generated this result transmitted reference range : -3.0 - 3.0 mEq/ L. The reference r henry was not used to interpret this result as normal/abnormal . THB (test code = 10.8 g/dL 12.0-16.0 L 2494641629) %O2HB (test code = 93.4 % 94.0-99.0 L 8239332940) %COHB ART (test code = 0.4 % 0.0-1.5 5331035456) %METHB ART (test code = 0.3 % 0.4-1.5 L 8376769769) VOL%O2 ART (test code = 14.3 % 15.0-23.0 L 4835635291) NA (test code = 142 mmol/L 135-145 5492481758) K+ (test code = 5.2 mmol/L 3.5-5.0 H 8225552372) AC CA IONZ (test code = 4.80 mg/dL 4.50-5.30 7141931391) GLUCOSE (test code = 109 mg/dL 70-110 4427966380) LACTIC ACID (test code 1.56 mmol/L 0.50-2.20 = 9049630993) Lab Interpretation Abnormal (test code = 56790-7) [facility] HospitalETHANOL2022-[facility]-26 01:19:51 ALCOHOL<10mg/dL10/19/2022 7:19 PM [facility] LABORATORY SERVICESToxic Greater than or equal to 80 mg/dL. NOTE: Whole blood values are approximately 10% to 15% lower than serum and plasma.[facility] HospitalETHANOL2022-[facility]-26 01:19:51ALCOHOL<10mg/dL10/19/2022 7:19 PM [facility] LABORATORY SERVICESToxic Greater than or equal to 80 mg/dL. NOTE: Whole blood values are approximately 10% to 15% lower than serum and plasma.[facility] HospitalBETA [id number] 01:06:31 Test Item Value Reference Range Interpretation Comments BOH (test code = 0.5 mmol/L 5472863851) ALAINA (test code = Normal Ranges: ? ? ALAINA) Nonfasting ? Less than 0.1 mmol/L ? ? Overnight Fast ? ? ? Less than 0.4 mmol/L ? ? Fasting (1-2 weeks) ?6-8 mmol/L Test developed and characteristics determined by [facility] Laboratory Services. [facility] HospitalBETA [id number] 01:06:31 Test Item Value Reference Range Interpretation Comments BOH (test code = 0.5 mmol/L 9154116112) ALAINA (test code = Normal Ranges: ? ? ALAINA) Nonfasting ? Less than 0.1 mmol/L ? ? Overnight Fast ? ? ? Less than 0.4 mmol/L ? ? Fasting (1-2 weeks) ?6-8 mmol/L Test developed and characteristics determined by [facility] Laboratory Services. [facility] HospitalIRON [id number] 00:41:12 Test Item Value Reference Range Interpretation Comments IRON (test code = 1198577197) 50 ug/dL 50-160 TIBC (test code = 8342675765) 140 ug/dL 250-410 L % FE SAT (test code = 5269022757) 36 % 20-50 Lab Interpretation (test code = Abnormal 63122-1) [facility] HospitalIRON [id number] 00:41:12 Test Item Value Reference Range Interpretation Comments IRON (test code = 1441680793) 50 ug/dL 50-160 TIBC (test code = 4162515735) 140 ug/dL 250-410 L % FE SAT (test code = 8139224371) 36 % 20-50 Lab Interpretation (test code = Abnormal 78631-6) [facility] HospitalPhosphorus [id number] 00:31:30 Test Item Value Reference Range Interpretation Comments PHOSPHORUS (test code = 11.8 mg/dL 2.5-5.0 H 4830044482) Lab Interpretation (test code = Abnormal 60474-7) [facility] HospitalGLYCOSYLATED HEMOGLOBIN (A1C)2022-10-20 00:26:49 Test Item Value Reference Range Interpretation Comments HGB A1C (test code = 7.0 % 4.0-5.7 H 4548-4) ALAINA (test code = ALAINA) Reference RangesNormal: <5.7%Prediabetes: 5.7 - 6.4%Diabetes: > 6.5% Lab Interpretation (test Abnormal code = 34951-3) [facility] HospitalGLYCOSYLATED HEMOGLOBIN (A1C)2022-10-20 00:26:49 Test Item Value Reference Range Interpretation Comments HGB A1C (test code = 7.0 % 4.0-5.7 H 4548-4) ALAINA (test code = ALAINA) Reference RangesNormal: <5.7%Prediabetes: 5.7 - 6.4%Diabetes: > 6.5% Lab Interpretation (test Abnormal code = 23961-9) [facility] HospitalProthrombin Time / [id number] 00:20:08 Test Item Value Reference Range Interpretation Comments PROTIME PATIENT (test See_Comment H [Auto mated message] code = 5964-2) The system AG&P generated this result transmitted ref erence range: 10.1 - 1 2.6 Seconds. The reference range was not used to int erpret this result as normal/abnormal . INR (test code = 6301-6) Nor mal INR <1.1; Warfarin Therap eutic range 2.0 to 3. 0 or 2.5 to 3.5, dep ending upon the indica tions. Lab Interpretation (test Abnormal code = 11779-3) [facility] HospitalaPTT2022-11-26 00:20:08 Test Item Value Reference Range Interpretation Comments APTT Patient (test code = See_Comment [ Automated message] 3173-2) The system [employer] generated this result transmitted ref erence range: 26 - 36 Seconds. The re ference range was not u sed to interpret this result as normal/abnor mal. Lab Interpretation (test Normal code = 52620-1) [facility] HospitalProthrombin Time / [id number] 00:20:08 Test Item Value Reference Range Interpretation Comments PROTIME PATIENT (test See_Comment H [Auto mated message] code = 5964-2) The system AG&P generated this result transmitted ref erence range: 10.1 - 1 2.6 Seconds. The reference range was not used to int erpret this result as normal/abnormal . INR (test code = 6301-6) Nor mal INR <1.1; Warfarin Therap eutic range 2.0 to 3. 0 or 2.5 to 3.5, dep ending upon the indica tions. Lab Interpretation (test Abnormal code = 51379-1) [facility] HospitalaPTT2022-[facility]-26 00:20:08 Test Item Value Reference Range Interpretation Comments APTT Patient (test code = See_Comment [ Automated message] 3173-2) The system Avi[employer] generated this result transmitted ref erence range: 26 - 36 Seconds. The re ference range was not u sed to interpret this result as normal/abnor mal. Lab Interpretation (test Normal code = 00143-7) [facility] HospitalCOM. METABOLIC PANEL (96392)2022-10-20 00:07:39 Test Item Value Reference Range Interpretation Comments NA (test code = 147 mmol/L 135-145 H 5619615635) K (test code = 7.4 mmol/L 3.5-5.0 HH 8371038291) CL (test code = 97 mmol/L 98-108 L 6386202559) CO2 TOTAL (test code = 17 mmol/L 23-31 L 9851713588) AGAP (test code = 2-16 H 0749411324) BUN (test code = 94 mg/dL 7-23 H 6949532531) GLUCOSE (test code = 155 mg/dL 70-110 H 6359578949) CREATININE (test code = 11.77 mg/dL 0.50-1.04 H 6745428267) TOTAL BILI (test code = 0.5 mg/dL 0.1-1.1 7630906569) CALCIUM (test code = 9.1 mg/dL 8.6-10.6 5146679874) T PROTEIN (test code = 7.7 g/dL 6.3-8.2 8760280275) ALBUMIN (test code = 3.8 g/dL 3.5-5.0 8506549971) ALK PHOS (test code = 219 U/L 34-122 H 4202480641) ALTv (test code = 22 U/L 5-35 1742-6) AST(SGOT) (test code = 26 U/L 13-40 9058034660) eGFR (test code = mL/min/1.73m2 0659855578) ALAINA (test code = ALAINA) Association of [...] tests). Lab Interpretation Abnormal (test code = 50948-2) [facility]. METABOLIC PANEL (60902)2022-10-20 00:07:39 Test Item Value Reference Range Interpretation Comments NA (test code = 147 mmol/L 135-145 H 3030941560) K (test code = 7.4 mmol/L 3.5-5.0 HH 5504182877) CL (test code = 97 mmol/L 98-108 L 4314540234) CO2 TOTAL (test code = 17 mmol/L 23-31 L 3835084656) AGAP (test code = 2-16 H 4351880506) BUN (test code = 94 mg/dL 7-23 H 6044757483) GLUCOSE (test code = 155 mg/dL 70-110 H 5959773863) CREATININE (test code = 11.77 mg/dL 0.50-1.04 H 2769758041) TOTAL BILI (test code = 0.5 mg/dL 0.1-1.4 7098492565) CALCIUM (test code = 9.1 mg/dL 8.6-10.6 4635334079) T PROTEIN (test code = 7.7 g/dL 6.3-8.2 4848377990) ALBUMIN (test code = 3.8 g/dL 3.5-5.0 6679935503) ALK PHOS (test code = 219 U/L 34-122 H 4373260777) ALTv (test code = 22 U/L 5-35 1742-6) AST(SGOT) (test code = 26 U/L 13-40 1942949827) eGFR (test code = mL/min/1.73m2 7776391143) ALAINA (test code = ALAINA) Association of [...] tests). Lab Interpretation Abnormal (test code = 59057-6) [facility] HospitalMAGNESIUM2022-11-25 23:58:49 Test Item Value Reference Range Interpretation Comments MAGNESIUM (test code = 9883923350) 2.4 mg/dL 1.7-2.4 Lab Interpretation (test code = Normal 73968-2) [facility] HospitalCB WITH [id number] 23:51:07 Test Item Value Reference Range Interpretation [...] RDW-SD (test code = 48.4 fL 39.0-49.9 49543-2) RDW-CV (test code = 15.5 % 12.0-15.5 788-0) PLT (test code = See_Comment H [Automated 777-3) message] The system which generated this result transmit vikki reference range : 166 - 358 10*3/ ?L. The reference range was not u sed to interpret th is result as normal/abnormal . MPV (test code = 9.4 fL 9.5-12.9 L 71201-2) NRBC/100 WBC (test See_Comment [Automat ed code = 6888890219) message] The system which generated this result transmit vikki reference range : 0.0 - 10.0 /100 WBCs. The reference range was not used to interpret this result as normal/abnormal . NRBC x10^3 (test code See_Comment [Auto mated = 8170692921) message] The system which generated this result transmit vikki reference range : 10*3/?L. The reference range was not used to interpret this result as normal/abnormal . GRAN MAT (NEUT) % 83.0 % (test code = 770-8) IMM GRAN % (test code 0.40 % = 3136258694) LYMPH % (test code = 8.3 % 736-9) MONO % (test code = 8.1 % 5905-5) EOS % (test code = 0.0 % 713-8) BASO % (test code = 0.2 % 706-2) GRAN MAT x10^3(ANC) 11.24 10*3/uL 1.88-7.09 H (test code = 9722973296) IMM GRAN x10^3 (test 0.05 10*3/uL 0.00-0.06 code = 8696867620) LYMPH x10^3 (test code 1.12 10*3/uL 1.32-3.29 L = 731-0) MONO x10^3 (test code 1.09 10*3/uL 0.33-0.92 H = 742-7) EOS x10^3 (test code = 0.03-0.39 L 711-2) BASO x10^3 (test code 0.03 10*3/uL 0.01-0.07 = 704-7) Lab Interpretation Abnormal (test code = 38211-0) [facility] GLUCOSE (AUTOMATED)2022-04-10 21:15:48 Test Item Value Reference Range Interpretation Comments POCT GLU (test code = 5077000033) 164 mg/dL 70-110 H Lab Interpretation (test code = Abnormal 19408-2) [facility] GLUCOSE (AUTOMATED)2022-04-10 16:44:44 Test Item Value Reference Range Interpretation Comments POCT GLU (test code = 5109088181) 169 mg/dL 70-110 H Lab Interpretation (test code = Abnormal 73430-5) [facility] GLUCOSE (AUTOMATED)2022-04-10 13:22:32 Test Item Value Reference Range Interpretation Comments POCT GLU (test code = 7977290997) 140 mg/dL 70-110 H Lab Interpretation (test code = Abnormal 05733-8) [facility] HospitalTROPONIN [id number] 11:45:33 Test Item Value Reference Interpretation Comments Range TROPONIN I (test 0.154 ng/mL See_Comment H [Automated code = 6716976820) message] The system which generated this result [...] biotin. Lab Interpretation Abnormal (test code = 12744-6) [facility] METABOLIC PANEL (NA, K, CL, CO2, GLUCOSE, BUN, CREATININE, CA)2022-04-10 11:35:14 Test Item Value Reference Range Interpretation Comments NA (test code = 136 mmol/L 135-145 8811965886) K (test code = 4.8 mmol/L 3.5-5.0 2353403180) CL (test code = 102 mmol/L 98-108 2941264022) CO2 TOTAL (test code = 22 mmol/L 23-31 L 2580873539) AGAP (test code = 2-16 4845538286) BUN (test code = 24 mg/dL 7-23 H 9105797622) GLUCOSE (test code = 189 mg/dL 70-110 H 1802092531) CREATININE (test code = 4.98 mg/dL 0.50-1.04 H 8617258290) CALCIUM (test code = 9.3 mg/dL 8.6-10.6 8041376712) eGFR (test code = mL/min/1.73m2 5782564076) ALAINA (test code = ALAINA) Association of [...] tests). Lab Interpretation Abnormal (test code = 26893-6) [facility]MAGN[facility]IUM2022-05-17 11:29:11 Test Item Value Reference Range Interpretation Comments MAGNESIUM (test code = 8620594658) 2.1 mg/dL 1.7-2.4 Lab Interpretation (test code = Normal 64401-1) [facility] WITH [id number] 10:26:03 Test Item Value Reference Range Interpretation Comments WBC (test code = See_Comment [Automated 6990-2) message] The sy stem which generated this [...] (test code = 56.6 fL 39.0-49.9 H 34288-4) RDW-CV (test code = 20.2 % 12.0-15.5 H 788-0) PLT (test code = See_Comment [Automated 777-3) message] The sy stem which generated this result transmitted reference range : 166 - 358 10*3/ ?L. The reference r henry was not used to interpret this result as normal/abnormal . MPV (test code = 11.2 fL 9.5-12.9 52156-1) NRBC/100 WBC (test See_Comment [Automat ed code = 2450971563) message] The system which generated this result transmitted reference range : 0.0 - 10.0 /100 WBCs. The refer ence range was not u sed to interpret th is result as normal/abnormal . NRBC x10^3 (test code <0.01 See_Comment [Auto mated = [id number]) message] The s ystem which generated this result transmitted reference range : 10*3/?L. The reference range was not used to interpret this result as normal/abnormal . GRAN MAT (NEUT) % 76.8 % (test code = 770-8) IMM GRAN % (test code 0.40 % = 6059075091) LYMPH % (test code = 14.1 % 736-9) MONO % (test code = 7.6 % 5905-5) EOS % (test code = 0.6 % 713-8) BASO % (test code = 0.5 % 706-2) GRAN MAT x10^3(ANC) 7.18 10*3/uL 1.88-7.09 H (test code = 2880368002) IMM GRAN x10^3 (test 0.04 10*3/uL 0.00-0.06 code = 2049889222) LYMPH x10^3 (test code 1.32 10*3/uL 1.32-3.29 = 731-0) MONO x10^3 (test code 0.71 10*3/uL 0.33-0.92 = 742-7) EOS x10^3 (test code = 0.06 10*3/uL 0.03-0.39 711-2) BASO x10^3 (test code 0.05 10*3/uL 0.01-0.07 = 704-7) Lab Interpretation Abnormal (test code = 56030-0) [facility] GLUCOSE (AUTOMATED)2022-04-10 10:18:37 Test Item Value Reference Range Interpretation Comments POCT GLU (test code = 6498241060) 182 mg/dL 70-110 H Lab Interpretation (test code = Abnormal 87531-7) [facility] GLUCOSE (AUTOMATED)2022-04-10 10:18:37 Test Item Value Reference Range Interpretation Comments POCT GLU (test code = 8837994060) 205 mg/dL 70-110 H Lab Interpretation (test code = Abnormal 71484-4) [facility] GLUCOSE (AUTOMATED)2022-04-10 05:47:57 Test Item Value Reference Range Interpretation Comments POCT GLU (test code = 2233993855) 157 mg/dL 70-110 H Lab Interpretation (test code = Abnormal 45652-3) [facility] GLUCOSE (AUTOMATED)2022-04-09 22:04:42 Test Item Value Reference Range Interpretation Comments POCT GLU (test code = 3717049270) 229 mg/dL 70-110 H Lab Interpretation (test code = Abnormal 86558-9) [id number]28 Test Item Value Reference Interpretation Comments Range TROPONIN I (test 0.287 ng/mL See_Comment H [Automated code = 9258633684) message] The system which generated this result [...] biotin. Lab Interpretation Abnormal (test code = 16267-5) [facility] METABOLIC PANEL (NA, K, CL, CO2, GLUCOSE, BUN, CREATININE, CA)2022-04-09 19:19:43 Test Item Value Reference Range Interpretation Comments NA (test code = 137 mmol/L 135-145 7848604757) K (test code = 3.2 mmol/L 3.5-5.0 L 2728157894) CL (test code = 101 mmol/L 98-108 0435655038) CO2 TOTAL (test code = 26 mmol/L 23-31 7573295533) AGAP (test code = 2-16 7479170491) BUN (test code = 14 mg/dL 7-23 3793364662) GLUCOSE (test code = 113 mg/dL 70-110 H 4527236900) CREATININE (test code = 2.68 mg/dL 0.50-1.04 H 2835331858) CALCIUM (test code = 9.6 mg/dL 8.6-10.6 0839375909) eGFR (test code = mL/min/1.73m2 9280687418) ALAINA (test code = ALAINA) Association of [...] tests). Lab Interpretation Abnormal (test code = 48571-3) [facility] 17:08:07 Test Item Value Reference Range Interpretation Comments POCT GLU (test code = 8876865979) 103 mg/dL 70-110 Lab Interpretation (test code = Normal 56252-5) [facility] [id number] 15:19:58 Test Item Value Reference Interpretation Comments Range TROPONIN I (test 0.298 ng/mL See_Comment H [Automated code = 1026343912) message] The system which generated this result [...] biotin. Lab Interpretation Abnormal (test code = 69020-3) [facility] GLUCOSE (AUTOMATED)2022-04-09 13:11:11 Test Item Value Reference Range Interpretation Comments POCT GLU (test code = 2859274606) 219 mg/dL 70-110 H Lab Interpretation (test code = Abnormal 72842-3) [facility]CREAT[facility] EIHCMC7076-83-06 11:57:31 Test Item Value Reference Range Interpretation Comments CK (test code = 3437037563) 68 U/L 33-194 Lab Interpretation (test code = Normal 20045-5) [facility] GLUCOSE (AUTOMATED)2022-04-09 10:19:18 Test Item Value Reference Range Interpretation Comments POCT GLU (test code = 6982146848) 177 mg/dL 70-110 H Lab Interpretation (test code = Abnormal 39886-1) [facility]EN[facility] [id number] 06:47:39 Test Item Value Reference Range Interpretation Comments PHENY FREE (test code <0.5 1.0-2.0 L = 7907263169) ALAINA (test code = ALAINA) Toxic Range: ? Greater than 2.5 ug/mL Test developed and characteristics determined by [facility] Laboratory Services. Lab Interpretation Abnormal (test code = 51075-6) [facility] [id number] 06:43:44 Test Item Value Reference Interpretation Comments Range TROPONIN I (test 0.271 ng/mL See_Comment H [Automated code = 7865853984) message] The system which generated this result [...] biotin. Lab Interpretation Abnormal (test code = 05110-4) [facility] Hospital[facility]esium Uebpw2226-34-27 06:30:50 Test Item Value Reference Range Interpretation Comments MAGNESIUM (test code = 9374795751) 2.0 mg/dL 1.7-2.4 Lab Interpretation (test code = Normal 23842-0) [facility] Hospital[facility]osphorus Dxiup1750-16-45 06:30:50 Test Item Value Reference Range Interpretation Comments PHOSPHORUS (test code = 0176586555) 6.8 mg/dL 2.5-5.0 H Lab Interpretation (test code = Abnormal 05362-2) [facility] (ALB, T.PRO, BILI T, BU/BC, ALT, AST, ALK, PHOS)2022-04-09 06:30:50 Test Item Value Reference Range Interpretation Comments TOTAL BILI (test code = 2403347883) 0.6 mg/dL 0.1-1.1 BILI UNCON (test code = 8587034702) 0.1 mg/dL 0.1-1.1 BILI CONJ (test code = 0066542530) 0.0 mg/dL 0.0-0.3 T PROTEIN (test code = 6758323820) 6.5 g/dL 6.3-8.2 ALBUMIN (test code = 5426913968) 3.5 g/dL 3.5-5.0 ALK PHOS (test code = 3341470167) 211 U/L 34-122 H ALTv (test code = 1742-6) 39 U/L 5-35 H AST(SGOT) (test code = 7448784812) 33 U/L 13-40 Lab Interpretation (test code = Abnormal 86553-6) [facility] (NA, K, CL, CO2, Glucose, BUN, Creatinine, CA)2022-04-09 06:30:49 Test Item Value Reference Range Interpretation Comments NA (test code = 136 mmol/L 135-145 7700446527) K (test code = 4.5 mmol/L 3.5-5.0 4418968598) CL (test code = 96 mmol/L 98-108 L 8532747609) CO2 TOTAL (test code = 27 mmol/L 23-31 9642967548) AGAP (test code = 2-16 5617080387) BUN (test code = 37 mg/dL 7-23 H 3247783942) GLUCOSE (test code = 114 mg/dL 70-110 H 8013958530) CREATININE (test code = 6.55 mg/dL 0.50-1.04 H 2915903240) CALCIUM (test code = 9.2 mg/dL 8.6-10.6 6386484834) eGFR (test code = mL/min/1.73m2 6067513975) ALAINA (test code = ALAINA) Association of [...] tests). Lab Interpretation Abnormal (test code = 05198-2) [facility] HospitalProthrombin Time / [id number] 05:44:26 Test Item Value Reference Range Interpretation [...] tions. Lab Interpretation (test Normal code = 20003-7) [facility] HospitalCB with Cedhmqxwzuze4352-20-82 05:43:06 Test Item Value Reference Range Interpretation [...] (test code = 55.8 fL 39.0-49.9 H 34357-5) RDW-CV (test code = 19.9 % 12.0-15.5 H 788-0) PLT (test code = See_Comment [Automated 777-3) message] The sy stem which generated this result transmitted reference range : 166 - 358 10*3/ ?L. The reference r henry was not used to interpret this result as normal/abnormal . MPV (test code = 10.4 fL 9.5-12.9 05539-1) NRBC/100 WBC (test See_Comment [Automat ed code = 2387522588) message] The system which generated this result transmitted reference range : 0.0 - 10.0 /100 WBCs. The refer ence range was not u sed to interpret th is result as normal/abnormal . NRBC x10^3 (test code <0.01 See_Comment [Auto mated = 4450290723) message] The s ystem which generated this result transmitted reference range : 10*3/?L. The reference range was not used to interpret this result as normal/abnormal . GRAN MAT (NEUT) % 77.5 % (test code = 770-8) IMM GRAN % (test code 0.40 % = 9040692328) LYMPH % (test code = 14.1 % 736-9) MONO % (test code = 7.3 % 5905-5) EOS % (test code = 0.4 % 713-8) BASO % (test code = 0.3 % 706-2) GRAN MAT x10^3(ANC) 8.21 10*3/uL 1.88-7.09 H (test code = 2040181490) IMM GRAN x10^3 (test 0.04 10*3/uL 0.00-0.06 code = 3599564050) LYMPH x10^3 (test code 1.49 10*3/uL 1.32-3.29 = 731-0) MONO x10^3 (test code 0.77 10*3/uL 0.33-0.92 = 742-7) EOS x10^3 (test code = 0.04 10*3/uL 0.03-0.39 711-2) BASO x10^3 (test code 0.03 10*3/uL 0.01-0.07 = 704-7) Lab Interpretation Abnormal (test code = 17811-0) [facility] GLUCOSE (AUTOMATED)2022-04-09 05:33:54 Test Item Value Reference Range Interpretation Comments POCT GLU (test code = 8749005777) 130 mg/dL 70-110 H Lab Interpretation (test code = Abnormal 82483-9) [facility]2019[facility] 09:14:00 Test Item Value Reference Range Interpretation Comments Hct (test code = Hct) 44.8 36.0-48.0 [facility]QtsuhvrSBUERCFTNB5598-45-76 09:14:00 Test Item Value Reference Range Interpretation Comments MCV (test code = MCV) 79.2 80.0-98.0 [facility] HospitalWfguczgQTMWJQNTNG5153-92-55 09:14:00 Test Item Value Reference Range Interpretation Comments MCH (test code = MCH) 25.0 pg 27.0-31.0 [facility] HospitalOxhbyokRVGNPMQDOO6379-41-03 09:14:00 Test Item Value Reference Range Interpretation Comments MCHC (test code = MCHC) 31.6 32.0-36.0 [facility] HospitalFqhojixJTECBWYHCT7907-83-66 09:14:00 Test Item Value Reference Range Interpretation Comments RDW (test code = RDW) 17.9 11.5-14.5 [facility] HospitalZeazfywDTQFAEYEWX4806-36-72 09:14:00 Test Item Value Reference Range Interpretation Comments Platelet (test code = Platelet) 273 133-450 [facility] HospitalIsqltxcOCGRYQOLBG9048-07-11 09:14:00 Test Item Value Reference Range Interpretation Comments MPV (test code = MPV) 8.3 7.4-10.4 [facility]2019-12-02 09:14:00 Test Item Value Reference Range Interpretation Comments Glucose Lvl (test code = Glucose Lvl) 182 70-99 [facility]2019-12-02 09:14:00 Test Item Value Reference Range Interpretation Comments BUN (test code = BUN) 61 7-22 [facility]2019-12-02 09:14:00 Test Item Value Reference Range Interpretation Comments Creatinine Lvl (test code = Creatinine 7.76 0.50-1.40 Lvl) [facility]2019-12-02 09:14:00 Test Item Value Reference Range Interpretation Comments Sodium Lvl (test code = Sodium Lvl) 137 135-145 [facility]2019-12-02 09:14:00 Test Item Value Reference Range Interpretation Comments Potassium Lvl (test code = Potassium 4.7 3.5-5.1 Lvl) [facility]2019-12-02 09:14:00 Test Item Value Reference Range Interpretation Comments Chloride Lvl (test code = Chloride Lvl) 102 95-109 [facility]2019-12-02 09:14:00 Test Item Value Reference Range Interpretation Comments CO2 (test code = CO2) 20 24-32 [facility]2019-12-02 09:14:00 Test Item Value Reference Range Interpretation Comments AGAP (test code = AGAP) 19.7 10.0-20.0 [facility]2019-12-02 09:14:00 Test Item Value Reference Range Interpretation Comments Calcium Lvl (test code = Calcium Lvl) 8.6 8.5-10.5 [facility]2019-12-02 09:14:00 Test Item Value Reference Range Interpretation Comments Albumin Lvl (test code = Albumin Lvl) 2.6 3.5-5.0 [facility]2019-12-02 09:14:00 Test Item Value Reference Range Interpretation Comments Phosphorus (test code = Phosphorus) 8.1 2.5-4.5 [facility]2019-12-02 09:14:00 Test Item Value Reference Range Interpretation Comments eGFR (test code = eGFR) 5 [facility] HospitalYdepowpWRQXTGPCWC1488-88-50 09:14:00 Test Item Value Reference Range Interpretation Comments Segs (test code = Segs) 60.8 45.0-75.0 [facility] HospitalPuwrewlWSMFURXQVE5227-89-62 09:14:00 Test Item Value Reference Range Interpretation Comments Lymphocytes (test code = Lymphocytes) 24.6 20.0-40.0 [facility] HospitalPqimthhNVTYEHLHYN6135-66-08 09:14:00 Test Item Value Reference Range Interpretation Comments Monocytes (test code = Monocytes) 8.0 2.0-12.0 [facility] HospitalRytrixmSPXVGWRVWI0681-54-78 09:14:00 Test Item Value Reference Range Interpretation Comments Eosinophils (test code = 5.3 See_Comment [A utomated message] The Eosinophils) system which ge nerated this result tra nsmitted reference range : <=4.0. The reference r henry was not used to int erpret this result as normal/abnormal . [facility] HospitalSrvtvbgPHCJGACGPC1724-75-92 09:14:00 Test Item Value Reference Range Interpretation Comments Basophils (test code = 1.3 See_Comment [Aut omated message] The Basophils) system which ge nerated this result tra nsmitted reference range : <=1.0. The reference r henry was not used to int erpret this result as normal/abnormal . [facility] HospitalVbpmenoKRLMJCKKMN2856-57-86 09:14:00 Test Item Value Reference Range Interpretation Comments Neutrophils # (test code = Neutrophils 4.7 1.5-8.1 #) [facility] HospitalDprsxkcLNFCXDMWLO0417-20-93 09:14:00 Test Item Value Reference Range Interpretation Comments Lymphocytes # (test code = Lymphocytes 1.9 1.0-5.5 #) [facility] HospitalLxswpreITZRGNOLGO0012-26-18 09:14:00 Test Item Value Reference Range Interpretation Comments Monocytes # (test code 0.6 See_Comment [Aut omated message] The = Monocytes #) system which generated this result tra nsmitted reference range : <=0.8. The reference r henry was not used to int erpret this result as normal/abnormal . [facility] HospitalBuugdhlIZHJZOTPPF8978-41-27 09:14:00 Test Item Value Reference Range Interpretation Comments Eosinophils # (test code 0.4 See_Comment [A utomated message] The = Eosinophils #) system whic h generated this result tra nsmitted reference range : <=0.5. The reference r henry was not used to int erpret this result as normal/abnormal . [facility] HospitalPaiedfhXVBHZEYMWM1133-11-76 09:14:00 Test Item Value Reference Range Interpretation Comments Basophils # (test code 0.1 See_Comment [Aut omated message] The = Basophils #) system which generated this result tra nsmitted reference range : <=0.2. The reference r henry was not used to int erpret this result as normal/abnormal . [facility] HospitalSemptjfXATXNFJQEV9796-93-34 09:14:00 Test Item Value Reference Range Interpretation Comments WBC (test code = WBC) 7.8 3.7-10.4 [facility] HospitalQdfyamgEANNOAQCSV1633-49-32 09:14:00 Test Item Value Reference Range Interpretation Comments RBC (test code = RBC) 5.66 4.20-5.40 [facility] HospitalOmqpxzzALJESNKQTF6317-96-00 09:14:00 Test Item Value Reference Range Interpretation Comments Hgb (test code = Hgb) 14.2 12.0-16.0 [place] 896749-12-02 09:14:00 Test Item Value Reference Range Interpretation Comments Hct (test code = Hct) 44.8 36.0-48.0 [facility] HospitalCvtorraLATGVZGFWN5814-23-38 09:14:00 Test Item Value Reference Range Interpretation Comments MCV (test code = MCV) 79.2 80.0-98.0 [place] 896749-12-02 09:14:00 Test Item Value Reference Range Interpretation Comments MCH (test code = MCH) 25.0 pg 27.0-31.0 [facility] HospitalGnpsprtUURMJANUUS4434-48-15 09:14:00 Test Item Value Reference Range Interpretation Comments MCHC (test code = MCHC) 31.6 32.0-36.0 [facility] HospitalKlimazaPRYSAWZKXP4195-95-05 09:14:00 Test Item Value Reference Range Interpretation Comments RDW (test code = RDW) 17.9 11.5-14.5 [place] 896749-12-02 09:14:00 Test Item Value Reference Range Interpretation Comments Platelet (test code = Platelet) 273 133-450 [facility] HospitalPdpzbifMNBLBNGTQM5206-45-27 09:14:00 Test Item Value Reference Range Interpretation Comments MPV (test code = MPV) 8.3 7.4-10.4 [facility]2019-12-02 09:14:00 Test Item Value Reference Range Interpretation Comments Glucose Lvl (test code = Glucose Lvl) 182 70-99 [facility]2019-12-02 09:14:00 Test Item Value Reference Range Interpretation Comments BUN (test code = BUN) 61 7-22 [facility]2019-12-02 09:14:00 Test Item Value Reference Range Interpretation Comments Creatinine Lvl (test code = Creatinine 7.76 0.50-1.40 Lvl) [facility]2019-12-02 09:14:00 Test Item Value Reference Range Interpretation Comments Sodium Lvl (test code = Sodium Lvl) 137 135-145 [facility]2019-12-02 09:14:00 Test Item Value Reference Range Interpretation Comments Potassium Lvl (test code = Potassium 4.7 3.5-5.1 Lvl) [facility]2019-12-02 09:14:00 Test Item Value Reference Range Interpretation Comments Chloride Lvl (test code = Chloride Lvl) 102 95-109 [facility]2019-12-02 09:14:00 Test Item Value Reference Range Interpretation Comments CO2 (test code = CO2) 20 24-32 [facility]2019-12-02 09:14:00 Test Item Value Reference Range Interpretation Comments AGAP (test code = AGAP) 19.7 10.0-20.0 [facility]2019-12-02 09:14:00 Test Item Value Reference Range Interpretation Comments Calcium Lvl (test code = Calcium Lvl) 8.6 8.5-10.5 [facility]2019-12-02 09:14:00 Test Item Value Reference Range Interpretation Comments Albumin Lvl (test code = Albumin Lvl) 2.6 3.5-5.0 [facility]2019-12-02 09:14:00 Test Item Value Reference Range Interpretation Comments Phosphorus (test code = Phosphorus) 8.1 2.5-4.5 [facility]2019-12-02 09:14:00 Test Item Value Reference Range Interpretation Comments eGFR (test code = eGFR) 5 [facility] HospitalVjkkxdoDZHAGRPEST8256-80-06 09:14:00 Test Item Value Reference Range Interpretation Comments Segs (test code = Segs) 60.8 45.0-75.0 [facility] HospitalSwyyfcfOCGYJJWJHP7264-20-54 09:14:00 Test Item Value Reference Range Interpretation Comments Lymphocytes (test code = Lymphocytes) 24.6 20.0-40.0 [facility] HospitalUigiuqzDOPESYQAQZ3712-41-02 09:14:00 Test Item Value Reference Range Interpretation Comments Monocytes (test code = Monocytes) 8.0 2.0-12.0 [facility] HospitalOvgbfkyOKEIOFJMML4843-74-63 09:14:00 Test Item Value Reference Range Interpretation Comments Eosinophils (test code = 5.3 See_Comment [A utomated message] The Eosinophils) system which ge nerated this result tra nsmitted reference range : <=4.0. The reference r henry was not used to int erpret this result as normal/abnormal . [facility] HospitalThncosmAKCEWTKTNM7254-93-10 09:14:00 Test Item Value Reference Range Interpretation Comments Basophils (test code = 1.3 See_Comment [Aut omated message] The Basophils) system which ge nerated this result tra nsmitted reference range : <=1.0. The reference r henry was not used to int erpret this result as normal/abnormal . [facility] HospitalKfpdlmdURQVVXIRGG8148-87-93 09:14:00 Test Item Value Reference Range Interpretation Comments Neutrophils # (test code = Neutrophils 4.7 1.5-8.1 #) [facility] HospitalGhesqatAVPUBJACRW1654-18-49 09:14:00 Test Item Value Reference Range Interpretation Comments Lymphocytes # (test code = Lymphocytes 1.9 1.0-5.5 #) [facility] HospitalXovykmnXHOVKXZGNK3854-82-64 09:14:00 Test Item Value Reference Range Interpretation Comments Monocytes # (test code 0.6 See_Comment [Aut omated message] The = Monocytes #) system which generated this result tra nsmitted reference range : <=0.8. The reference r henry was not used to int erpret this result as normal/abnormal . [facility] HospitalYcwuxuqGHWRWXWYPK8152-90-69 09:14:00 Test Item Value Reference Range Interpretation Comments Eosinophils # (test code 0.4 See_Comment [A utomated message] The = Eosinophils #) system whic h generated this result tra nsmitted reference range : <=0.5. The reference r henry was not used to int erpret this result as normal/abnormal . [facility] HospitalLourleuYEWIRYKYLI2761-73-85 09:14:00 Test Item Value Reference Range Interpretation Comments Basophils # (test code 0.1 See_Comment [Aut omated message] The = Basophils #) system which generated this result tra nsmitted reference range : <=0.2. The reference r henry was not used to int erpret this result as normal/abnormal . [facility] HospitalWcgeogmVKBZIEGOFG5969-19-90 09:14:00 Test Item Value Reference Range Interpretation Comments WBC (test code = WBC) 7.8 3.7-10.4 [facility] HospitalQynbepyIVBWPKPOXJ7258-51-71 09:14:00 Test Item Value Reference Range Interpretation Comments RBC (test code = RBC) 5.66 4.20-5.40 [facility] HospitalIcqqxwaSHLTYKWBJT1069-10-60 09:14:00 Test Item Value Reference Range Interpretation Comments Hgb (test code = Hgb) 14.2 12.0-16.0 [facility] HospitalIteutxwPGFLUEPAZH3994-94-04 09:14:00 Test Item Value Reference Range Interpretation Comments Hct (test code = Hct) 44.8 36.0-48.0 [facility] HospitalLicazbiTTJSLVZDCF1576-64-12 09:14:00 Test Item Value Reference Range Interpretation Comments MCV (test code = MCV) 79.2 80.0-98.0 [facility] HospitalXfzogyzOHMSICHQOA2293-22-91 09:14:00 Test Item Value Reference Range Interpretation Comments MCH (test code = MCH) 25.0 pg 27.0-31.0 [facility] HospitalClnncvfNNNTEFLLBG2669-23-88 09:14:00 Test Item Value Reference Range Interpretation Comments MCHC (test code = MCHC) 31.6 32.0-36.0 [facility] HospitalZxchtdhLBNDBHNGYK9481-07-64 09:14:00 Test Item Value Reference Range Interpretation Comments RDW (test code = RDW) 17.9 11.5-14.5 [facility] HospitalFqvviyaLBKMTQHSXC9685-53-39 09:14:00 Test Item Value Reference Range Interpretation Comments Platelet (test code = Platelet) 273 133-450 [facility] HospitalAnjdhldKVKLORRYPW4614-61-66 09:14:00 Test Item Value Reference Range Interpretation Comments MPV (test code = MPV) 8.3 7.4-10.4 [facility]2019-12-02 09:14:00 Test Item Value Reference Range Interpretation Comments Glucose Lvl (test code = Glucose Lvl) 182 70-99 [facility]2019-12-02 09:14:00 Test Item Value Reference Range Interpretation Comments BUN (test code = BUN) 61 7-22 [facility]2019-12-02 09:14:00 Test Item Value Reference Range Interpretation Comments Creatinine Lvl (test code = Creatinine 7.76 0.50-1.40 Lvl) [facility]2019-12-02 09:14:00 Test Item Value Reference Range Interpretation Comments Sodium Lvl (test code = Sodium Lvl) 137 135-145 [facility]2019-12-02 09:14:00 Test Item Value Reference Range Interpretation Comments Potassium Lvl (test code = Potassium 4.7 3.5-5.1 Lvl) [facility]2019-12-02 09:14:00 Test Item Value Reference Range Interpretation Comments Chloride Lvl (test code = Chloride Lvl) 102 95-109 [facility]2019-12-02 09:14:00 Test Item Value Reference Range Interpretation Comments CO2 (test code = CO2) 20 24-32 [facility]2019-12-02 09:14:00 Test Item Value Reference Range Interpretation Comments AGAP (test code = AGAP) 19.7 10.0-20.0 [facility]2019-12-02 09:14:00 Test Item Value Reference Range Interpretation Comments Calcium Lvl (test code = Calcium Lvl) 8.6 8.5-10.5 [place] [id number] 09:14:00 Test Item Value Reference Range Interpretation Comments Albumin Lvl (test code = Albumin Lvl) 2.6 3.5-5.0 [facility]2019-12-02 09:14:00 Test Item Value Reference Range Interpretation Comments Phosphorus (test code = Phosphorus) 8.1 2.5-4.5 [facility]2019-12-02 09:14:00 Test Item Value Reference Range Interpretation Comments eGFR (test code = eGFR) 5 [facility]ckqtboQMWPXDGJXU8394-42-91 09:14:00 Test Item Value Reference Range Interpretation Comments Segs (test code = Segs) 60.8 45.0-75.0 [facility] HospitalMzkbglgHTMKDZIJIX5671-51-37 09:14:00 Test Item Value Reference Range Interpretation Comments Lymphocytes (test code = Lymphocytes) 24.6 20.0-40.0 [facility] HospitalLevawjhYYYJUQNKEZ4630-32-66 09:14:00 Test Item Value Reference Range Interpretation Comments Monocytes (test code = Monocytes) 8.0 2.0-12.0 [facility] HospitalIbhuygzVNLQKYDJXX0670-46-70 09:14:00 Test Item Value Reference Range Interpretation Comments Eosinophils (test code = 5.3 See_Comment [A utomated message] The Eosinophils) system which ge nerated this result tra nsmitted reference range : <=4.0. The reference r henry was not used to int erpret this result as normal/abnormal . [facility] HospitalCeqxvxxASLYIIYVPD7273-74-92 09:14:00 Test Item Value Reference Range Interpretation Comments Basophils (test code = 1.3 See_Comment [Aut omated message] The Basophils) system which ge nerated this result tra nsmitted reference range : <=1.0. The reference r henry was not used to int erpret this result as normal/abnormal . [facility] HospitalSfufcaaLVTBBVOIDQ6795-98-12 09:14:00 Test Item Value Reference Range Interpretation Comments Neutrophils # (test code = Neutrophils 4.7 1.5-8.1 #) [facility] HospitalSzevgdkNUMCXBILXR0002-87-60 09:14:00 Test Item Value Reference Range Interpretation Comments Lymphocytes # (test code = Lymphocytes 1.9 1.0-5.5 #) [facility] HospitalHajzfelKXOPNLKOQB0361-72-46 09:14:00 Test Item Value Reference Range Interpretation Comments Monocytes # (test code 0.6 See_Comment [Aut omated message] The = Monocytes #) system which generated this result tra nsmitted reference range : <=0.8. The reference r henry was not used to int erpret this result as normal/abnormal . [facility] HospitalRxkvlhcQTUYIBSADU9433-05-96 09:14:00 Test Item Value Reference Range Interpretation Comments Eosinophils # (test code 0.4 See_Comment [A utomated message] The = Eosinophils #) system whic h generated this result tra nsmitted reference range : <=0.5. The reference r henry was not used to int erpret this result as normal/abnormal . [facility] HospitalEheqpriFADQTORMUO8921-84-13 09:14:00 Test Item Value Reference Range Interpretation Comments Basophils # (test code 0.1 See_Comment [Aut omated message] The = Basophils #) system which generated this result tra nsmitted reference range : <=0.2. The reference r henry was not used to int erpret this result as normal/abnormal . [facility] HospitalXxlvahbWWWDESZKXV5715-34-06 09:14:00 Test Item Value Reference Range Interpretation Comments WBC (test code = WBC) 7.8 3.7-10.4 [facility] HospitalPapwmkxMLEQTUOKKM5556-22-27 09:14:00 Test Item Value Reference Range Interpretation Comments RBC (test code = RBC) 5.66 4.20-5.40 [facility] HospitalNxpdyjdNMSEDHGHJC2895-90-84 09:14:00 Test Item Value Reference Range Interpretation Comments Hgb (test code = Hgb) 14.2 12.0-16.0 [facility] HospitalUyracfuEEFMGWFLEV3891-65-09 09:14:00 Test Item Value Reference Range Interpretation Comments Hct (test code = Hct) 44.8 36.0-48.0 [facility] HospitalGvucromVUACFRJYCC3417-67-13 09:14:00 Test Item Value Reference Range Interpretation Comments MCV (test code = MCV) 79.2 80.0-98.0 [facility] HospitalZrdiauxYWZVKBOCVM0384-21-82 09:14:00 Test Item Value Reference Range Interpretation Comments MCH (test code = MCH) 25.0 pg 27.0-31.0 [facility] HospitalHrbikwhODLLFRVCON4344-05-51 09:14:00 Test Item Value Reference Range Interpretation Comments MCHC (test code = MCHC) 31.6 32.0-36.0 [facility] HospitalCukanqiCNNJUJTTDH4259-43-66 09:14:00 Test Item Value Reference Range Interpretation Comments RDW (test code = RDW) 17.9 11.5-14.5 [place] 896749-12-02 09:14:00 Test Item Value Reference Range Interpretation Comments Platelet (test code = Platelet) 273 133-450 [facility] HospitalXaxhzrsRJCYAWMBDT4560-03-06 09:14:00 Test Item Value Reference Range Interpretation Comments MPV (test code = MPV) 8.3 7.4-10.4 [facility]2019-12-02 09:14:00 Test Item Value Reference Range Interpretation Comments Glucose Lvl (test code = Glucose Lvl) 182 70-99 [facility]2019-12-02 09:14:00 Test Item Value Reference Range Interpretation Comments BUN (test code = BUN) 61 7-22 [facility]2019-12-02 09:14:00 Test Item Value Reference Range Interpretation Comments Creatinine Lvl (test code = Creatinine 7.76 0.50-1.40 Lvl) [facility]2019-12-02 09:14:00 Test Item Value Reference Range Interpretation Comments Sodium Lvl (test code = Sodium Lvl) 137 135-145 [facility]2019-12-02 09:14:00 Test Item Value Reference Range Interpretation Comments Potassium Lvl (test code = Potassium 4.7 3.5-5.1 Lvl) [facility]2019-12-02 09:14:00 Test Item Value Reference Range Interpretation Comments Chloride Lvl (test code = Chloride Lvl) 102 95-109 [facility]2019-12-02 09:14:00 Test Item Value Reference Range Interpretation Comments CO2 (test code = CO2) 20 24-32 [facility]2019-12-02 09:14:00 Test Item Value Reference Range Interpretation Comments AGAP (test code = AGAP) 19.7 10.0-20.0 [place] 639279-12-02 09:14:00 Test Item Value Reference Range Interpretation Comments Calcium Lvl (test code = Calcium Lvl) 8.6 8.5-10.5 [facility]2019-12-02 09:14:00 Test Item Value Reference Range Interpretation Comments Albumin Lvl (test code = Albumin Lvl) 2.6 3.5-5.0 [facility]2019-12-02 09:14:00 Test Item Value Reference Range Interpretation Comments Phosphorus (test code = Phosphorus) 8.1 2.5-4.5 [facility]2019-12-02 09:14:00 Test Item Value Reference Range Interpretation Comments eGFR (test code = eGFR) 5 [facility] HospitalWkzvzaeACEJDMGLOW7615-78-24 09:14:00 Test Item Value Reference Range Interpretation Comments Segs (test code = Segs) 60.8 45.0-75.0 [facility] HospitalOkfksroXUBHZMNYMB8883-50-56 09:14:00 Test Item Value Reference Range Interpretation Comments Lymphocytes (test code = Lymphocytes) 24.6 20.0-40.0 [place] 896749-12-02 09:14:00 Test Item Value Reference Range Interpretation Comments Monocytes (test code = Monocytes) 8.0 2.0-12.0 [place] 896749-12-02 09:14:00 Test Item Value Reference Range Interpretation Comments Eosinophils (test code = 5.3 See_Comment [A utomated message] The Eosinophils) system which ge nerated this result tra nsmitted reference range : <=4.0. The reference r henry was not used to int erpret this result as normal/abnormal . [facility] HospitalLfwawwsUKLLCHXPXZ2002-22-00 09:14:00 Test Item Value Reference Range Interpretation Comments Basophils (test code = 1.3 See_Comment [Aut omated message] The Basophils) system which ge nerated this result tra nsmitted reference range : <=1.0. The reference r henry was not used to int erpret this result as normal/abnormal . [facility] HospitalIykfgjfDXOKDEXTWI1371-34-70 09:14:00 Test Item Value Reference Range Interpretation Comments Neutrophils # (test code = Neutrophils 4.7 1.5-8.1 #) [facility] HospitalQiweasgGUOSRXRJUU5270-81-87 09:14:00 Test Item Value Reference Range Interpretation Comments Lymphocytes # (test code = Lymphocytes 1.9 1.0-5.5 #) [facility] HospitalXeouzuhTVUNIENXAQ9449-14-12 09:14:00 Test Item Value Reference Range Interpretation Comments Monocytes # (test code 0.6 See_Comment [Aut omated message] The = Monocytes #) system which generated this result tra nsmitted reference range : <=0.8. The reference r henry was not used to int erpret this result as normal/abnormal . [facility] HospitalRmcegksVEYBOXSGCB2871-46-62 09:14:00 Test Item Value Reference Range Interpretation Comments Eosinophils # (test code 0.4 See_Comment [A utomated message] The = Eosinophils #) system whic h generated this result tra nsmitted reference range : <=0.5. The reference r henry was not used to int erpret this result as normal/abnormal . [facility] HospitalYzzhkdjZUEKOOPELN9225-38-54 09:14:00 Test Item Value Reference Range Interpretation Comments Basophils # (test code 0.1 See_Comment [Aut omated message] The = Basophils #) system which generated this result tra nsmitted reference range : <=0.2. The reference r henry was not used to int erpret this result as normal/abnormal . [facility] HospitalSjafnvkEALFJPOHBN6743-64-15 09:14:00 Test Item Value Reference Range Interpretation Comments WBC (test code = WBC) 7.8 3.7-10.4 [facility] HospitalHsnhdkuQMNCQMHLNE1506-06-60 09:14:00 Test Item Value Reference Range Interpretation Comments RBC (test code = RBC) 5.66 4.20-5.40 [facility] HospitalPfwjjtvFPKQVIGQPV9639-86-39 09:14:00 Test Item Value Reference Range Interpretation Comments Hgb (test code = Hgb) 14.2 12.0-16.0 [facility] HospitalIvqjoauRNWSGVYYSM2384-44-26 09:14:00 Test Item Value Reference Range Interpretation Comments Hct (test code = Hct) 44.8 36.0-48.0 [facility] HospitalJavvhxzEOXXKVAFAO6016-50-42 09:14:00 Test Item Value Reference Range Interpretation Comments MCV (test code = MCV) 79.2 80.0-98.0 [facility] HospitalWhwaxfnCABHSYBWKJ1753-84-70 09:14:00 Test Item Value Reference Range Interpretation Comments MCH (test code = MCH) 25.0 pg 27.0-31.0 [facility] HospitalHeilvkrJDNXAKPOKV6405-55-28 09:14:00 Test Item Value Reference Range Interpretation Comments MCHC (test code = MCHC) 31.6 32.0-36.0 [facility] HospitalVwdqebgFZIZJSMLFJ8248-05-78 09:14:00 Test Item Value Reference Range Interpretation Comments RDW (test code = RDW) 17.9 11.5-14.5 [facility] HospitalPwtufjaXEGFIGKJSW0211-17-88 09:14:00 Test Item Value Reference Range Interpretation Comments Platelet (test code = Platelet) 273 980-450 [facility] HospitalFfgimfwHIXQRAPOCG0987-10-98 09:14:00 Test Item Value Reference Range Interpretation Comments MPV (test code = MPV) 8.3 7.4-10.4 [facility]2019-12-02 09:14:00 Test Item Value Reference Range Interpretation Comments Glucose Lvl (test code = Glucose Lvl) 182 70-99 [facility]2019-12-02 09:14:00 Test Item Value Reference Range Interpretation Comments BUN (test code = BUN) 61 7-22 [facility]2019-12-02 09:14:00 Test Item Value Reference Range Interpretation Comments Creatinine Lvl (test code = Creatinine 7.76 0.50-1.40 Lvl) [facility]2019-12-02 09:14:00 Test Item Value Reference Range Interpretation Comments Sodium Lvl (test code = Sodium Lvl) 137 135-145 [facility]2019-12-02 09:14:00 Test Item Value Reference Range Interpretation Comments Potassium Lvl (test code = Potassium 4.7 3.5-5.1 Lvl) [facility]2019-12-02 09:14:00 Test Item Value Reference Range Interpretation Comments Chloride Lvl (test code = Chloride Lvl) 102 95-109 [facility]2019-12-02 09:14:00 Test Item Value Reference Range Interpretation Comments CO2 (test code = CO2) 20 24-32 [facility]2019-12-02 09:14:00 Test Item Value Reference Range Interpretation Comments AGAP (test code = AGAP) 19.7 10.0-20.0 [facility]2019-12-02 09:14:00 Test Item Value Reference Range Interpretation Comments Calcium Lvl (test code = Calcium Lvl) 8.6 8.5-10.5 [facility]2019-12-02 09:14:00 Test Item Value Reference Range Interpretation Comments Albumin Lvl (test code = Albumin Lvl) 2.6 3.5-5.0 [facility]2019-12-02 09:14:00 Test Item Value Reference Range Interpretation Comments Phosphorus (test code = Phosphorus) 8.1 2.5-4.5 [facility]2019-12-02 09:14:00 Test Item Value Reference Range Interpretation Comments eGFR (test code = eGFR) 5 [facility] HospitalPodnkftMLUOGPECFO6554-29-44 09:14:00 Test Item Value Reference Range Interpretation Comments Segs (test code = Segs) 60.8 45.0-75.0 [facility] HospitalVcakpgqWVUYUATYDX7402-88-25 09:14:00 Test Item Value Reference Range Interpretation Comments Lymphocytes (test code = Lymphocytes) 24.6 20.0-40.0 [facility] HospitalAfylkabVCJCUIDLBM3454-16-04 09:14:00 Test Item Value Reference Range Interpretation Comments Monocytes (test code = Monocytes) 8.0 2.0-12.0 [facility] HospitalSltzcwxCNKSDUBXNX0721-04-50 09:14:00 Test Item Value Reference Range Interpretation Comments Eosinophils (test code = 5.3 See_Comment [A utomated message] The Eosinophils) system which ge nerated this result tra nsmitted reference range : <=4.0. The reference r henry was not used to int erpret this result as normal/abnormal . [facility] HospitalIdcbxxaBTOSKGXKVD3556-46-60 09:14:00 Test Item Value Reference Range Interpretation Comments Basophils (test code = 1.3 See_Comment [Aut omated message] The Basophils) system which ge nerated this result tra nsmitted reference range : <=1.0. The reference r henry was not used to int erpret this result as normal/abnormal . [facility] HospitalOxtnifeMNXHSMOWCF1794-24-10 09:14:00 Test Item Value Reference Range Interpretation Comments Neutrophils # (test code = Neutrophils 4.7 1.5-8.1 #) [facility] HospitalJebpzaqBYILZNOKUR1538-84-17 09:14:00 Test Item Value Reference Range Interpretation Comments Lymphocytes # (test code = Lymphocytes 1.9 1.0-5.5 #) [facility] HospitalGlxwwulCINDGEBYST4578-42-60 09:14:00 Test Item Value Reference Range Interpretation Comments Monocytes # (test code 0.6 See_Comment [Aut omated message] The = Monocytes #) system which generated this result tra nsmitted reference range : <=0.8. The reference r henry was not used to int erpret this result as normal/abnormal . [facility] HospitalPaljmqvZYASPXDEMD4910-95-20 09:14:00 Test Item Value Reference Range Interpretation Comments Eosinophils # (test code 0.4 See_Comment [A utomated message] The = Eosinophils #) system whic h generated this result tra nsmitted reference range : <=0.5. The reference r henry was not used to int erpret this result as normal/abnormal . [facility] HospitalSmcvpxcWLODNLQWAZ5553-15-70 09:14:00 Test Item Value Reference Range Interpretation Comments Basophils # (test code 0.1 See_Comment [Aut omated message] The = Basophils #) system which generated this result tra nsmitted reference range : <=0.2. The reference r henry was not used to int erpret this result as normal/abnormal . [facility] HospitalPaurhhkGQFKLTYSEU6881-72-95 09:14:00 Test Item Value Reference Range Interpretation Comments WBC (test code = WBC) 7.8 3.7-10.4 [facility] HospitalLxueuumYEYZDXCGMG8020-58-04 09:14:00 Test Item Value Reference Range Interpretation Comments RBC (test code = RBC) 5.66 4.20-5.40 [facility] HospitalQcdbnkzXDHFENGNUP5937-72-63 09:14:00 Test Item Value Reference Range Interpretation Comments Hgb (test code = Hgb) 14.2 12.0-16.0 [facility] HospitalIttjdseTROCJADRJV9689-41-45 09:14:00 Test Item Value Reference Range Interpretation Comments Hct (test code = Hct) 44.8 36.0-48.0 [facility] HospitalXfyswnhUYOTIXUVCS0956-93-16 09:14:00 Test Item Value Reference Range Interpretation Comments MCV (test code = MCV) 79.2 80.0-98.0 [facility] HospitalJlyxbkaJAGUBOYTKC7651-43-49 09:14:00 Test Item Value Reference Range Interpretation Comments MCH (test code = MCH) 25.0 pg 27.0-31.0 [facility] HospitalZpkypckBMKRFKLVEK9536-82-15 09:14:00 Test Item Value Reference Range Interpretation Comments MCHC (test code = MCHC) 31.6 32.0-36.0 [facility] HospitalNeldbzuFXOSKFEFFD0684-30-27 09:14:00 Test Item Value Reference Range Interpretation Comments RDW (test code = RDW) 17.9 11.5-14.5 [facility] HospitalZebvbbfDHCNEOJDGZ3742-53-21 09:14:00 Test Item Value Reference Range Interpretation Comments Platelet (test code = Platelet) 273 046-450 [facility] HospitalUblhqmaTNZJKJYFJI9647-86-41 09:14:00 Test Item Value Reference Range Interpretation Comments MPV (test code = MPV) 8.3 7.4-10.4 [facility]2019-12-02 09:14:00 Test Item Value Reference Range Interpretation Comments Glucose Lvl (test code = Glucose Lvl) 182 70-99 [facility]2019-12-02 09:14:00 Test Item Value Reference Range Interpretation Comments BUN (test code = BUN) 61 7-22 [facility]2019-12-02 09:14:00 Test Item Value Reference Range Interpretation Comments Creatinine Lvl (test code = Creatinine 7.76 0.50-1.40 Lvl) [facility]2019-12-02 09:14:00 Test Item Value Reference Range Interpretation Comments Sodium Lvl (test code = Sodium Lvl) 137 135-145 [facility]2019-12-02 09:14:00 Test Item Value Reference Range Interpretation Comments Potassium Lvl (test code = Potassium 4.7 3.5-5.1 Lvl) [facility]2019-12-02 09:14:00 Test Item Value Reference Range Interpretation Comments Chloride Lvl (test code = Chloride Lvl) 102 95-109 [facility]2019-12-02 09:14:00 Test Item Value Reference Range Interpretation Comments CO2 (test code = CO2) 20 24-32 [facility]2019-12-02 09:14:00 Test Item Value Reference Range Interpretation Comments AGAP (test code = AGAP) 19.7 10.0-20.0 [facility]2019-12-02 09:14:00 Test Item Value Reference Range Interpretation Comments Calcium Lvl (test code = Calcium Lvl) 8.6 8.5-10.5 [facility]2019-12-02 09:14:00 Test Item Value Reference Range Interpretation Comments Albumin Lvl (test code = Albumin Lvl) 2.6 3.5-5.0 [facility]2019-12-02 09:14:00 Test Item Value Reference Range Interpretation Comments Phosphorus (test code = Phosphorus) 8.1 2.5-4.5 [facility]2019-12-02 09:14:00 Test Item Value Reference Range Interpretation Comments eGFR (test code = eGFR) 5 [facility] HospitalUovsadbHRJFUVXYXT1745-00-23 09:14:00 Test Item Value Reference Range Interpretation Comments Segs (test code = Segs) 60.8 45.0-75.0 [facility] HospitalEvrbqfcSFEHBIJJOM7317-65-15 09:14:00 Test Item Value Reference Range Interpretation Comments Lymphocytes (test code = Lymphocytes) 24.6 20.0-40.0 [facility] HospitalHznhxwvMWMVCLGNFS4441-99-66 09:14:00 Test Item Value Reference Range Interpretation Comments Monocytes (test code = Monocytes) 8.0 2.0-12.0 [facility] HospitalJpxwyqmVPIBOWSGSP3192-45-38 09:14:00 Test Item Value Reference Range Interpretation Comments Eosinophils (test code = 5.3 See_Comment [A utomated message] The Eosinophils) system which nerated this result tra nsmitted reference range : <=4.0. The reference r henry was not used to int erpret this result as normal/abnormal . [facility] HospitalHjkzwrpZYVNGPEGIZ5121-32-74 09:14:00 Test Item Value Reference Range Interpretation Comments Basophils (test code = 1.3 See_Comment [Aut omated message] The Basophils) system which ge nerated this result tra nsmitted reference range : <=1.0. The reference r henry was not used to int erpret this result as normal/abnormal . [facility] HospitalVhjxwnaXASJIOUBLU8845-01-58 09:14:00 Test Item Value Reference Range Interpretation Comments Neutrophils # (test code = Neutrophils 4.7 1.5-8.1 #) [facility] HospitalUypzpwxOZZMBNHAZW4851-62-29 09:14:00 Test Item Value Reference Range Interpretation Comments Lymphocytes # (test code = Lymphocytes 1.9 1.0-5.5 #) [facility] HospitalRmlcdabYOUMBJAWQJ4326-76-36 09:14:00 Test Item Value Reference Range Interpretation Comments Monocytes # (test code 0.6 See_Comment [Aut omated message] The = Monocytes #) system which generated this result tra nsmitted reference range : <=0.8. The reference r henry was not used to int erpret this result as normal/abnormal . [facility] HospitalDspznltBUHTDBLTYF1820-68-47 09:14:00 Test Item Value Reference Range Interpretation Comments Eosinophils # (test code 0.4 See_Comment [A utomated message] The = Eosinophils #) system whic h generated this result tra nsmitted reference range : <=0.5. The reference r henry was not used to int erpret this result as normal/abnormal . [facility] HospitalSmzmparWRXFOYVOZO8332-55-44 09:14:00 Test Item Value Reference Range Interpretation Comments Basophils # (test code 0.1 See_Comment [Aut omated message] The = Basophils #) system which generated this result tra nsmitted reference range : <=0.2. The reference r henry was not used to int erpret this result as normal/abnormal . [facility] HospitalIrcletdEBLJJTDESY9584-49-87 09:14:00 Test Item Value Reference Range Interpretation Comments WBC (test code = WBC) 7.8 3.7-10.4 [facility] HospitalQlkjkkrCLRFEUTVET7099-23-84 09:14:00 Test Item Value Reference Range Interpretation Comments RBC (test code = RBC) 5.66 4.20-5.40 [facility] HospitalTksxqfuTBKGETMRJK6841-42-41 09:14:00 Test Item Value Reference Range Interpretation Comments Hgb (test code = Hgb) 14.2 12.0-16.0 [place] [address]-12-02 09:14:00 Test Item Value Reference Range Interpretation Comments Hct (test code = Hct) 44.8 36.0-48.0 [facility] HospitalEeohyjwBZNSNKNOZZ2773-48-07 09:14:00 Test Item Value Reference Range Interpretation Comments MCV (test code = MCV) 79.2 80.0-98.0 [facility] HospitalWafdlerFMAFTIEXER7017-97-11 09:14:00 Test Item Value Reference Range Interpretation Comments MCH (test code = MCH) 25.0 pg 27.0-31.0 [facility] HospitalXixnfjlPGXVPJZJSY5986-40-76 09:14:00 Test Item Value Reference Range Interpretation Comments MCHC (test code = MCHC) 31.6 32.0-36.0 [facility] HospitalCtdcbzmAVRFPQJJQQ8403-53-46 09:14:00 Test Item Value Reference Range Interpretation Comments RDW (test code = RDW) 17.9 11.5-14.5 [facility] HospitalMjuzchoWLMFHPTRMZ9147-03-17 09:14:00 Test Item Value Reference Range Interpretation Comments Platelet (test code = Platelet) 273 676-450 [facility] HospitalHflhvmkPAPRLHONAT2085-24-12 09:14:00 Test Item Value Reference Range Interpretation Comments MPV (test code = MPV) 8.3 7.4-10.4 [facility]2019-12-02 09:14:00 Test Item Value Reference Range Interpretation Comments Glucose Lvl (test code = Glucose Lvl) 182 70-99 [facility] [facility]2019-12-02 09:14:00 Test Item Value Reference Range Interpretation Comments BUN (test code = BUN) 61 7-22 [facility]2019-12-02 09:14:00 Test Item Value Reference Range Interpretation Comments Creatinine Lvl (test code = Creatinine 7.76 0.50-1.40 Lvl) [facility]2019-12-02 09:14:00 Test Item Value Reference Range Interpretation Comments Sodium Lvl (test code = Sodium Lvl) 137 135-145 [facility]2019-12-02 09:14:00 Test Item Value Reference Range Interpretation Comments Potassium Lvl (test code = Potassium 4.7 3.5-5.1 Lvl) [facility]2019-12-02 09:14:00 Test Item Value Reference Range Interpretation Comments Chloride Lvl (test code = Chloride Lvl) 102 95-109 [facility]2019-12-02 09:14:00 Test Item Value Reference Range Interpretation Comments CO2 (test code = CO2) 20 24-32 [place] [id number] 09:14:00 Test Item Value Reference Range Interpretation Comments AGAP (test code = AGAP) 19.7 10.0-20.0 [facility]2019-12-02 09:14:00 Test Item Value Reference Range Interpretation Comments Calcium Lvl (test code = Calcium Lvl) 8.6 8.5-10.5 [facility]2019-12-02 09:14:00 Test Item Value Reference Range Interpretation Comments Albumin Lvl (test code = Albumin Lvl) 2.6 3.5-5.0 [place] 639279-12-02 09:14:00 Test Item Value Reference Range Interpretation Comments Phosphorus (test code = Phosphorus) 8.1 2.5-4.5 [facility]2019-12-02 09:14:00 Test Item Value Reference Range Interpretation Comments eGFR (test code = eGFR) 5 [facility]qkIRPVRNYQZK8726-17-36 09:14:00 Test Item Value Reference Range Interpretation Comments Segs (test code = Segs) 60.8 45.0-75.0 [facility]JhoruxeHFSDRYWFGH5200-23-39 09:14:00 Test Item Value Reference Range Interpretation Comments Lymphocytes (test code = Lymphocytes) 24.6 20.0-40.0 [facility] HospitalNfyifypGYVWBUCUQW2431-88-87 09:14:00 Test Item Value Reference Range Interpretation Comments Monocytes (test code = Monocytes) 8.0 2.0-12.0 [facility]IkktivkWGWHJZMXKV1316-85-66 09:14:00 Test Item Value Reference Range Interpretation Comments Eosinophils (test code = Eosinophils) 5.3 <=4.0 [facility] HospitalNqyzwgwSWHCURVHCK0346-80-10 09:14:00 Test Item Value Reference Range Interpretation Comments Basophils (test code = Basophils) 1.3 <=1.0 [facility]PiwlinrPMLLTBIZWW4552-12-02 09:14:00 Test Item Value Reference Range Interpretation Comments Neutrophils # (test code = Neutrophils 4.7 1.5-8.1 #) [facility] HospitalSkbxvxoZJZKJAXOZR9082-49-00 09:14:00 Test Item Value Reference Range Interpretation Comments Lymphocytes # (test code = Lymphocytes 1.9 1.0-5.5 #) [facility] HospitalBfqhoogZCBUIIMWLY5142-73-75 09:14:00 Test Item Value Reference Range Interpretation Comments Monocytes # (test code = Monocytes #) 0.6 <=0.8 [facility] HospitalChepiyqXPJPXWAKLM3737-74-09 09:14:00 Test Item Value Reference Range Interpretation Comments Eosinophils # (test code = Eosinophils 0.4 <=0.5 #) [facility] HospitalAjsdnnaSAGHPPZIWM8974-37-37 09:14:00 Test Item Value Reference Range Interpretation Comments Basophils # (test code = Basophils #) 0.1 <=0.2 [facility] HospitalJkkrjjjZKQSCZOMOH4994-81-53 09:14:00 Test Item Value Reference Range Interpretation Comments WBC (test code = WBC) 7.8 3.7-10.4 [facility] HospitalBbjkfnnBSCGGPRBJB1519-40-58 09:14:00 Test Item Value Reference Range Interpretation Comments RBC (test code = RBC) 5.66 4.20-5.40 [facility] HospitalNibidhnGRAEYNHZJE7572-11-67 09:14:00 Test Item Value Reference Range Interpretation Comments Hgb (test code = Hgb) 14.2 12.0-16.0 [facility] HospitalHcqfmvoPGIVCFZTBS2407-65-12 09:14:00 Test Item Value Reference Range Interpretation Comments Hct (test code = Hct) 44.8 36.0-48.0 [facility] HospitalOnaxjyrTJIWYXWUMS6990-28-61 09:14:00 Test Item Value Reference Range Interpretation Comments MCV (test code = MCV) 79.2 80.0-98.0 [facility] HospitalXtnysorVDDLSPMCSN4492-48-84 09:14:00 Test Item Value Reference Range Interpretation Comments MCH (test code = MCH) 25.0 pg 27.0-31.0 [facility] HospitalIknevnmDBBKGYFQJP0179-34-92 09:14:00 Test Item Value Reference Range Interpretation Comments MCHC (test code = MCHC) 31.6 32.0-36.0 [facility] HospitalTbvgqtwHDGRTHIKVP4666-90-00 09:14:00 Test Item Value Reference Range Interpretation Comments RDW (test code = RDW) 17.9 11.5-14.5 [facility] HospitalZdkjbdqNRPCVSELHN7933-11-57 09:14:00 Test Item Value Reference Range Interpretation Comments Platelet (test code = Platelet) 273 133-450 [facility] HospitalYdbwftrTFOZGJLTAC6947-84-83 09:14:00 Test Item Value Reference Range Interpretation Comments MPV (test code = MPV) 8.3 7.4-10.4 [place] 639279-12-02 09:14:00 Test Item Value Reference Range Interpretation Comments Glucose Lvl (test code = Glucose Lvl) 182 70-99 [facility]2019-12-02 09:14:00 Test Item Value Reference Range Interpretation Comments BUN (test code = BUN) 61 7-22 [facility]2019-12-02 09:14:00 Test Item Value Reference Range Interpretation Comments Creatinine Lvl (test code = Creatinine 7.76 0.50-1.40 Lvl) [facility]2019-12-02 09:14:00 Test Item Value Reference Range Interpretation Comments Sodium Lvl (test code = Sodium Lvl) 137 135-145 [facility]2019-12-02 09:14:00 Test Item Value Reference Range Interpretation Comments Potassium Lvl (test code = Potassium 4.7 3.5-5.1 Lvl) [facility]2019-12-02 09:14:00 Test Item Value Reference Range Interpretation Comments Chloride Lvl (test code = Chloride Lvl) 102 95-109 [facility]2019-12-02 09:14:00 Test Item Value Reference Range Interpretation Comments CO2 (test code = CO2) 20 24-32 [facility]2019-12-02 09:14:00 Test Item Value Reference Range Interpretation Comments AGAP (test code = AGAP) 19.7 10.0-20.0 [facility]2019-12-02 09:14:00 Test Item Value Reference Range Interpretation Comments Calcium Lvl (test code = Calcium Lvl) 8.6 8.5-10.5 [facility]2019-12-02 09:14:00 Test Item Value Reference Range Interpretation Comments Albumin Lvl (test code = Albumin Lvl) 2.6 3.5-5.0 [facility]2019-12-02 09:14:00 Test Item Value Reference Range Interpretation Comments Phosphorus (test code = Phosphorus) 8.1 2.5-4.5 [facility]2019-12-02 09:14:00 Test Item Value Reference Range Interpretation Comments eGFR (test code = eGFR) 5 [facility]WWBMADZIMX7128-31-47 09:14:00 Test Item Value Reference Range Interpretation Comments Segs (test code = Segs) 60.8 45.0-75.0 [facility] HospitalBtpeiqzVGVDMJDOZA0507-65-83 09:14:00 Test Item Value Reference Range Interpretation Comments Lymphocytes (test code = Lymphocytes) 24.6 20.0-40.0 [facility] HospitalXsgusteXRKXSWUSXX4897-40-77 09:14:00 Test Item Value Reference Range Interpretation Comments Monocytes (test code = Monocytes) 8.0 2.0-12.0 [facility] HospitalEtqevzxYZUAVREMQG8935-75-79 09:14:00 Test Item Value Reference Range Interpretation Comments Eosinophils (test code = Eosinophils) 5.3 <=4.0 [facility] HospitalGxncyjoXSCUCVPADY7189-57-85 09:14:00 Test Item Value Reference Range Interpretation Comments Basophils (test code = Basophils) 1.3 <=1.0 [facility] HospitalGkovazlIGSSUFAFKN7086-56-72 09:14:00 Test Item Value Reference Range Interpretation Comments Neutrophils # (test code = Neutrophils 4.7 1.5-8.1 #) [facility] HospitalGevsannBSTSDGBAHE6860-36-07 09:14:00 Test Item Value Reference Range Interpretation Comments Lymphocytes # (test code = Lymphocytes 1.9 1.0-5.5 #) [facility] HospitalRqzzvbjOQSYJLARUT2795-37-42 09:14:00 Test Item Value Reference Range Interpretation Comments Monocytes # (test code = Monocytes #) 0.6 <=0.8 [facility] HospitalNnjnxreGVYIGXOUSZ4426-94-38 09:14:00 Test Item Value Reference Range Interpretation Comments Eosinophils # (test code = Eosinophils 0.4 <=0.5 #) [facility] HospitalEutvvaiIJGJINPETC5954-37-90 09:14:00 Test Item Value Reference Range Interpretation Comments Basophils # (test code = Basophils #) 0.1 <=0.2 [facility] HospitalEzxocgdKKUXKUSGFQ4611-58-89 09:14:00 Test Item Value Reference Range Interpretation Comments WBC (test code = WBC) 7.8 3.7-10.4 [facility] HospitalIdxzfoeQSLNVISKJW1947-64-17 09:14:00 Test Item Value Reference Range Interpretation Comments RBC (test code = RBC) 5.66 4.20-5.40 [facility] HospitalBzozqmwZSFNBVIVXY1677-68-66 09:14:00 Test Item Value Reference Range Interpretation Comments Hgb (test code = Hgb) 14.2 12.0-16.0 [facility] HospitalHeliykoGSGLNVCCBV1844-60-75 09:14:00 Test Item Value Reference Range Interpretation Comments Hct (test code = Hct) 44.8 36.0-48.0 [place] 896749-12-02 09:14:00 Test Item Value Reference Range Interpretation Comments MCV (test code = MCV) 79.2 80.0-98.0 [place] 896749-12-02 09:14:00 Test Item Value Reference Range Interpretation Comments MCH (test code = MCH) 25.0 pg 27.0-31.0 [place] 896749-12-02 09:14:00 Test Item Value Reference Range Interpretation Comments MCHC (test code = MCHC) 31.6 32.0-36.0 [facility] HospitalJhrcgulBJKNNRXITF9520-23-28 09:14:00 Test Item Value Reference Range Interpretation Comments RDW (test code = RDW) 17.9 11.5-14.5 [place] 896749-12-02 09:14:00 Test Item Value Reference Range Interpretation Comments Platelet (test code = Platelet) 273 133-450 [facility] HospitalEhlnhkyCAFECJKHLG6917-25-50 09:14:00 Test Item Value Reference Range Interpretation Comments MPV (test code = MPV) 8.3 7.4-10.4 [facility]2019-12-02 09:14:00 Test Item Value Reference Range Interpretation Comments Glucose Lvl (test code = Glucose Lvl) 182 70-99 [facility]2019-12-02 09:14:00 Test Item Value Reference Range Interpretation Comments BUN (test code = BUN) 61 7-22 [facility]2019-12-02 09:14:00 Test Item Value Reference Range Interpretation Comments Creatinine Lvl (test code = Creatinine 7.76 0.50-1.40 Lvl) [facility]2019-12-02 09:14:00 Test Item Value Reference Range Interpretation Comments Sodium Lvl (test code = Sodium Lvl) 137 135-145 [facility]2019-12-02 09:14:00 Test Item Value Reference Range Interpretation Comments Potassium Lvl (test code = Potassium 4.7 3.5-5.1 Lvl) [facility]2019-12-02 09:14:00 Test Item Value Reference Range Interpretation Comments Chloride Lvl (test code = Chloride Lvl) 102 95-109 [facility]2019-12-02 09:14:00 Test Item Value Reference Range Interpretation Comments CO2 (test code = CO2) 20 24-32 [facility]2019-12-02 09:14:00 Test Item Value Reference Range Interpretation Comments AGAP (test code = AGAP) 19.7 10.0-20.0 [facility]2019-12-02 09:14:00 Test Item Value Reference Range Interpretation Comments Calcium Lvl (test code = Calcium Lvl) 8.6 8.5-10.5 [facility]2019-12-02 09:14:00 Test Item Value Reference Range Interpretation Comments Albumin Lvl (test code = Albumin Lvl) 2.6 3.5-5.0 [facility]2019-12-02 09:14:00 Test Item Value Reference Range Interpretation Comments Phosphorus (test code = Phosphorus) 8.1 2.5-4.5 [facility]2019-12-02 09:14:00 Test Item Value Reference Range Interpretation Comments eGFR (test code = eGFR) 5 [facility] HospitalPfeicsqNGFBJFVPTV5412-93-65 09:14:00 Test Item Value Reference Range Interpretation Comments Segs (test code = Segs) 60.8 45.0-75.0 [facility] HospitalVzehmqoCFDQIIRGQF4707-24-86 09:14:00 Test Item Value Reference Range Interpretation Comments Lymphocytes (test code = Lymphocytes) 24.6 20.0-40.0 [facility] HospitalOeramogCKUXNLBQUS7989-34-06 09:14:00 Test Item Value Reference Range Interpretation Comments Monocytes (test code = Monocytes) 8.0 2.0-12.0 [facility] HospitalVittvyiOCMKDIXKDI7790-16-66 09:14:00 Test Item Value Reference Range Interpretation Comments Eosinophils (test code = Eosinophils) 5.3 <=4.0 [facility] HospitalOclrbsvDDXTVDUGBK6014-37-84 09:14:00 Test Item Value Reference Range Interpretation Comments Basophils (test code = Basophils) 1.3 <=1.0 [facility] HospitalNefeapnXNSUKUWFVA0753-04-11 09:14:00 Test Item Value Reference Range Interpretation Comments Neutrophils # (test code = Neutrophils 4.7 1.5-8.1 #) [facility] HospitalCvqqoanRQPLCFDXGW9088-34-08 09:14:00 Test Item Value Reference Range Interpretation Comments Lymphocytes # (test code = Lymphocytes 1.9 1.0-5.5 #) [facility] HospitalLxsoxwqVKQAVAEYGA3585-56-96 09:14:00 Test Item Value Reference Range Interpretation Comments Monocytes # (test code = Monocytes #) 0.6 <=0.8 [facility] HospitalJsmpyglXSELBUSYXD5133-51-39 09:14:00 Test Item Value Reference Range Interpretation Comments Eosinophils # (test code = Eosinophils 0.4 <=0.5 #) [facility] HospitalYtplqywCNSJKNTAHT6926-78-50 09:14:00 Test Item Value Reference Range Interpretation Comments Basophils # (test code = Basophils #) 0.1 <=0.2 [facility] HospitalHlktlgsLZPBYFWNQR7179-01-44 09:14:00 Test Item Value Reference Range Interpretation Comments WBC (test code = WBC) 7.8 3.7-10.4 [facility] HospitalDcqewtwQXEVSMGCTI8376-33-50 09:14:00 Test Item Value Reference Range Interpretation Comments RBC (test code = RBC) 5.66 4.20-5.40 [facility] HospitalOwwiocdBUTHUUXXLP3297-97-90 09:14:00 Test Item Value Reference Range Interpretation Comments Hgb (test code = Hgb) 14.2 12.0-16.0 [facility] HospitalFkedkkdDGEEFJIJJK9474-32-68 09:14:00 Test Item Value Reference Range Interpretation Comments Hct (test code = Hct) 44.8 36.0-48.0 [facility] HospitalCotiureYJOERRTUWI3075-96-41 09:14:00 Test Item Value Reference Range Interpretation Comments MCV (test code = MCV) 79.2 80.0-98.0 [facility] HospitalOhyaallQICVWTAVVW5660-76-26 09:14:00 Test Item Value Reference Range Interpretation Comments MCH (test code = MCH) 25.0 pg 27.0-31.0 [facility] HospitalAiupoflZJFYNPBGRP0635-38-90 09:14:00 Test Item Value Reference Range Interpretation Comments MCHC (test code = MCHC) 31.6 32.0-36.0 [facility] HospitalAjkpxbiEMATBAWLJY8071-64-85 09:14:00 Test Item Value Reference Range Interpretation Comments RDW (test code = RDW) 17.9 11.5-14.5 [facility] HospitalGuxonfvQXUTGMRQIJ3915-35-12 09:14:00 Test Item Value Reference Range Interpretation Comments Platelet (test code = Platelet) 273 133-450 [facility]BxbcdroOVASNNMQYU0920-58-29 09:14:00 Test Item Value Reference Range Interpretation Comments MPV (test code = MPV) 8.3 7.4-10.4 [facility]2019-12-02 09:14:00 Test Item Value Reference Range Interpretation Comments Glucose Lvl (test code = Glucose Lvl) 182 70-99 [facility]2019-12-02 09:14:00 Test Item Value Reference Range Interpretation Comments BUN (test code = BUN) 61 7-22 [facility]2019-12-02 09:14:00 Test Item Value Reference Range Interpretation Comments Creatinine Lvl (test code = Creatinine 7.76 0.50-1.40 Lvl) [facility]2019-12-02 09:14:00 Test Item Value Reference Range Interpretation Comments Sodium Lvl (test code = Sodium Lvl) 137 135-145 [facility]2019-12-02 09:14:00 Test Item Value Reference Range Interpretation Comments Potassium Lvl (test code = Potassium 4.7 3.5-5.1 Lvl) [facility]2019-12-02 09:14:00 Test Item Value Reference Range Interpretation Comments Chloride Lvl (test code = Chloride Lvl) 102 95-109 [facility]2019-12-02 09:14:00 Test Item Value Reference Range Interpretation Comments CO2 (test code = CO2) 20 24-32 [facility]2019-12-02 09:14:00 Test Item Value Reference Range Interpretation Comments AGAP (test code = AGAP) 19.7 10.0-20.0 [facility]2019-12-02 09:14:00 Test Item Value Reference Range Interpretation Comments Calcium Lvl (test code = Calcium Lvl) 8.6 8.5-10.5 [facility]2019-12-02 09:14:00 Test Item Value Reference Range Interpretation Comments Glucose Lvl (test code = Glucose Lvl) 182 70-99 [facility]2019-12-02 09:14:00 Test Item Value Reference Range Interpretation Comments Albumin Lvl (test code = Albumin Lvl) 2.6 3.5-5.0 [facility]2019-12-02 09:14:00 Test Item Value Reference Range Interpretation Comments Phosphorus (test code = Phosphorus) 8.1 2.5-4.5 [facility]2019-12-02 09:14:00 Test Item Value Reference Range Interpretation Comments eGFR (test code = eGFR) 5 [facility] HospitalLboustwGUECNQACTV3701-60-71 09:14:00 Test Item Value Reference Range Interpretation Comments Segs (test code = Segs) 60.8 45.0-75.0 [facility] HospitalCvxpgsdVFNURBNIWG6755-48-99 09:14:00 Test Item Value Reference Range Interpretation Comments Lymphocytes (test code = Lymphocytes) 24.6 20.0-40.0 [facility] HospitalGatterhJJBPAWOMIY1058-43-41 09:14:00 Test Item Value Reference Range Interpretation Comments Monocytes (test code = Monocytes) 8.0 2.0-12.0 [facility] HospitalUrjchiqDPAWGCJIIU6012-09-33 09:14:00 Test Item Value Reference Range Interpretation Comments Eosinophils (test code = Eosinophils) 5.3 <=4.0 [facility] HospitalZqbgbqdGIALBKFLPQ0340-90-46 09:14:00 Test Item Value Reference Range Interpretation Comments Basophils (test code = Basophils) 1.3 <=1.0 [facility] HospitalFkccltiLUUBYBIUXS1264-24-11 09:14:00 Test Item Value Reference Range Interpretation Comments Neutrophils # (test code = Neutrophils 4.7 1.5-8.1 #) [facility] HospitalTiusqlnYKSVQIHJWM2091-95-02 09:14:00 Test Item Value Reference Range Interpretation Comments Lymphocytes # (test code = Lymphocytes 1.9 1.0-5.5 #) [facility]2019-12-02 09:14:00 Test Item Value Reference Range Interpretation Comments BUN (test code = BUN) 61 7-22 [facility] HospitalRxczkvcORCITFBPJG8183-71-83 09:14:00 Test Item Value Reference Range Interpretation Comments Monocytes # (test code = Monocytes #) 0.6 <=0.8 [facility] HospitalAaokazyZKXPTTXFJV3771-33-62 09:14:00 Test Item Value Reference Range Interpretation Comments Eosinophils # (test code = Eosinophils 0.4 <=0.5 #) [facility] HospitalKeuhnjlEKULKBJOPC4005-54-03 09:14:00 Test Item Value Reference Range Interpretation Comments Basophils # (test code = Basophils #) 0.1 <=0.2 [place] 896749-12-02 09:14:00 Test Item Value Reference Range Interpretation Comments WBC (test code = WBC) 7.8 3.7-10.4 [facility] HospitalYqhdlnpSIEPINXWUM3220-27-47 09:14:00 Test Item Value Reference Range Interpretation Comments RBC (test code = RBC) 5.66 4.20-5.40 [facility] HospitalSbgghscJCPGERWTZY5511-56-21 09:14:00 Test Item Value Reference Range Interpretation Comments Hgb (test code = Hgb) 14.2 12.0-16.0 [facility] HospitalMgccyffFHYPFSKXPM9006-83-59 09:14:00 Test Item Value Reference Range Interpretation Comments Hct (test code = Hct) 44.8 36.0-48.0 [facility] HospitalSvcaiewEOGIVWNIZP1267-51-23 09:14:00 Test Item Value Reference Range Interpretation Comments MCV (test code = MCV) 79.2 80.0-98.0 [facility] HospitalKklobjmXFAHHMWSDA3671-80-42 09:14:00 Test Item Value Reference Range Interpretation Comments MCH (test code = MCH) 25.0 pg 27.0-31.0 [facility] HospitalSmmqiyrZZODJDQYSR2314-75-04 09:14:00 Test Item Value Reference Range Interpretation Comments MCHC (test code = MCHC) 31.6 32.0-36.0 [facility]2019-12-02 09:14:00 Test Item Value Reference Range Interpretation Comments Creatinine Lvl (test code = Creatinine 7.76 0.50-1.40 Lvl) [facility] HospitalDdzwfdlNMBMVXEQIB6465-06-53 09:14:00 Test Item Value Reference Range Interpretation Comments RDW (test code = RDW) 17.9 11.5-14.5 [facility] HospitalJjrubjtJCVYQLJIMV8216-99-04 09:14:00 Test Item Value Reference Range Interpretation Comments Platelet (test code = Platelet) 273 133-450 [facility] HospitalInndglmYTUBCJJNSK7376-64-71 09:14:00 Test Item Value Reference Range Interpretation Comments MPV (test code = MPV) 8.3 7.4-10.4 [facility]2019-12-02 09:14:00 Test Item Value Reference Range Interpretation Comments Sodium Lvl (test code = Sodium Lvl) 137 135-145 [facility]2019-12-02 09:14:00 Test Item Value Reference Range Interpretation Comments Potassium Lvl (test code = Potassium 4.7 3.5-5.1 Lvl) [facility]2019-12-02 09:14:00 Test Item Value Reference Range Interpretation Comments Chloride Lvl (test code = Chloride Lvl) 102 95-109 [facility]2019-12-02 09:14:00 Test Item Value Reference Range Interpretation Comments CO2 (test code = CO2) 20 24-32 [facility]2019-12-02 09:14:00 Test Item Value Reference Range Interpretation Comments AGAP (test code = AGAP) 19.7 10.0-20.0 [facility]2019-12-02 09:14:00 Test Item Value Reference Range Interpretation Comments Calcium Lvl (test code = Calcium Lvl) 8.6 8.5-10.5 [facility]2019-12-02 09:14:00 Test Item Value Reference Range Interpretation Comments Albumin Lvl (test code = Albumin Lvl) 2.6 3.5-5.0 [facility]2019-12-02 09:14:00 Test Item Value Reference Range Interpretation Comments Phosphorus (test code = Phosphorus) 8.1 2.5-4.5 [facility]2019-12-02 09:14:00 Test Item Value Reference Range Interpretation Comments eGFR (test code = eGFR) 5 [facility] HospitalQziwnzvKVNWIFDQFJ6304-02-31 09:14:00 Test Item Value Reference Range Interpretation Comments Segs (test code = Segs) 60.8 45.0-75.0 [facility] HospitalOshsakgFWUNUMWLCT5599-66-75 09:14:00 Test Item Value Reference Range Interpretation Comments Lymphocytes (test code = Lymphocytes) 24.6 20.0-40.0 [facility] HospitalLvwyicvCPVLERGBUW2660-60-94 09:14:00 Test Item Value Reference Range Interpretation Comments Monocytes (test code = Monocytes) 8.0 2.0-12.0 [facility]BejumxpNBRJNRWSJD2798-30-83 09:14:00 Test Item Value Reference Range Interpretation Comments Eosinophils (test code = 5.3 See_Comment [A utomated message] The Eosinophils) system which ge nerated this result tra nsmitted reference range : <=4.0. The reference r henry was not used to int erpret this result as normal/abnormal . [facility] HospitalNtqjleoLPXUNGWNLI2312-70-62 09:14:00 Test Item Value Reference Range Interpretation Comments Basophils (test code = 1.3 See_Comment [Aut omated message] The Basophils) system which ge nerated this result tra nsmitted reference range : <=1.0. The reference r henry was not used to int erpret this result as normal/abnormal . [facility] HospitalEyinrbyKNINGGSIAX8379-01-17 09:14:00 Test Item Value Reference Range Interpretation Comments Neutrophils # (test code = Neutrophils 4.7 1.5-8.1 #) [facility] HospitalHwftqnuVVQSVZDDED0723-64-51 09:14:00 Test Item Value Reference Range Interpretation Comments Lymphocytes # (test code = Lymphocytes 1.9 1.0-5.5 #) [facility] HospitalQjwrnjkTDQHATNQSQ6791-95-70 09:14:00 Test Item Value Reference Range Interpretation Comments Monocytes # (test code 0.6 See_Comment [Aut omated message] The = Monocytes #) system which generated this result tra nsmitted reference range : <=0.8. The reference r henry was not used to int erpret this result as normal/abnormal . [facility]2019-12-02 09:14:00 Test Item Value Reference Range Interpretation Comments Glucose Lvl (test code = Glucose Lvl) 182 70-99 [facility]2019-12-02 09:14:00 Test Item Value Reference Range Interpretation Comments BUN (test code = BUN) 61 7-22 [facility]2019-12-02 09:14:00 Test Item Value Reference Range Interpretation Comments Creatinine Lvl (test code = Creatinine 7.76 0.50-1.40 Lvl) [facility]2019-12-02 09:14:00 Test Item Value Reference Range Interpretation Comments Sodium Lvl (test code = Sodium Lvl) 137 135-145 [facility]2019-12-02 09:14:00 Test Item Value Reference Range Interpretation Comments Potassium Lvl (test code = Potassium 4.7 3.5-5.1 Lvl) [facility]2019-12-02 09:14:00 Test Item Value Reference Range Interpretation Comments Chloride Lvl (test code = Chloride Lvl) 102 95-109 [facility]2019-12-02 09:14:00 Test Item Value Reference Range Interpretation Comments CO2 (test code = CO2) 20 24-32 [facility]2019-12-02 09:14:00 Test Item Value Reference Range Interpretation Comments AGAP (test code = AGAP) 19.7 10.0-20.0 [facility] HospitalCaqttziFFDEIDQTZE4665-51-90 09:14:00 Test Item Value Reference Range Interpretation Comments Eosinophils # (test code 0.4 See_Comment [A utomated message] The = Eosinophils #) system whic h generated this result tra nsmitted reference range : <=0.5. The reference r henry was not used to int erpret this result as normal/abnormal . [facility]2019-12-02 09:14:00 Test Item Value Reference Range Interpretation Comments Calcium Lvl (test code = Calcium Lvl) 8.6 8.5-10.5 [place] 639279-12-02 09:14:00 Test Item Value Reference Range Interpretation Comments Albumin Lvl (test code = Albumin Lvl) 2.6 3.5-5.0 [facility]2019-12-02 09:14:00 Test Item Value Reference Range Interpretation Comments Phosphorus (test code = Phosphorus) 8.1 2.5-4.5 [facility]2019-12-02 09:14:00 Test Item Value Reference Range Interpretation Comments eGFR (test code = eGFR) 5 [facility] HospitalJxfqpfvZFPFCCSESN4436-93-28 09:14:00 Test Item Value Reference Range Interpretation Comments Segs (test code = Segs) 60.8 45.0-75.0 [facility] HospitalQemrbflCBBWMVAQAY5559-13-09 09:14:00 Test Item Value Reference Range Interpretation Comments Lymphocytes (test code = Lymphocytes) 24.6 20.0-40.0 [facility] HospitalGdrixyqGGAIKFXVZD0156-74-23 09:14:00 Test Item Value Reference Range Interpretation Comments Monocytes (test code = Monocytes) 8.0 2.0-12.0 [facility] HospitalKptdtzsOMVEZLQSRV2426-09-27 09:14:00 Test Item Value Reference Range Interpretation Comments Eosinophils (test code = Eosinophils) 5.3 <=4.0 [facility] HospitalNdvyekbAFCPOOEQTX1214-99-15 09:14:00 Test Item Value Reference Range Interpretation Comments Basophils (test code = Basophils) 1.3 <=1.0 [facility] HospitalZuxdcvyGORJYJTVEK7868-64-12 09:14:00 Test Item Value Reference Range Interpretation Comments Neutrophils # (test code = Neutrophils 4.7 1.5-8.1 #) [facility] HospitalZgsfkbsZLXATLQINI8943-42-28 09:14:00 Test Item Value Reference Range Interpretation Comments Basophils # (test code 0.1 See_Comment [Aut omated message] The = Basophils #) system which generated this result tra nsmitted reference range : <=0.2. The reference r henry was not used to int erpret this result as normal/abnormal . [facility] HospitalHtwntgcWMMRMCWMBC9904-58-79 09:14:00 Test Item Value Reference Range Interpretation Comments Lymphocytes # (test code = Lymphocytes 1.9 1.0-5.5 #) [facility] HospitalVssygdmHRVRKBIZNS1667-53-84 09:14:00 Test Item Value Reference Range Interpretation Comments Monocytes # (test code = Monocytes #) 0.6 <=0.8 [facility] HospitalEkyaszbCFIMYAJJWO5985-40-46 09:14:00 Test Item Value Reference Range Interpretation Comments Eosinophils # (test code = Eosinophils 0.4 <=0.5 #) [facility] HospitalKjmzgviANCKKRXSGR8267-46-69 09:14:00 Test Item Value Reference Range Interpretation Comments Basophils # (test code = Basophils #) 0.1 <=0.2 [facility] HospitalZuifbtlJLWPPJDLUB9024-19-52 09:14:00 Test Item Value Reference Range Interpretation Comments WBC (test code = WBC) 7.8 3.7-10.4 [facility] HospitalOevrmcrQIZKIQMOSB2658-93-25 09:14:00 Test Item Value Reference Range Interpretation Comments RBC (test code = RBC) 5.66 4.20-5.40 [facility] HospitalPxvqjybMKJUVGKVVF2721-77-96 09:14:00 Test Item Value Reference Range Interpretation Comments Hgb (test code = Hgb) 14.2 12.0-16.0 [facility] HospitalSnjaytdHHEZUNYMRL7272-03-35 09:14:00 Test Item Value Reference Range Interpretation Comments Hct (test code = Hct) 44.8 36.0-48.0 [facility] HospitalRvdiajbZBCGNIGFAZ0053-85-09 09:14:00 Test Item Value Reference Range Interpretation Comments MCV (test code = MCV) 79.2 80.0-98.0 [facility] HospitalYdsgbtaAKZCNJOVMM1458-88-80 09:14:00 Test Item Value Reference Range Interpretation Comments MCH (test code = MCH) 25.0 pg 27.0-31.0 [facility] HospitalGxvheysRBEUBCGJBU0601-40-05 09:14:00 Test Item Value Reference Range Interpretation Comments WBC (test code = WBC) 7.8 3.7-10.4 [facility] HospitalMjdzdbjLYJLWTLDCO5934-07-40 09:14:00 Test Item Value Reference Range Interpretation Comments MCHC (test code = MCHC) 31.6 32.0-36.0 [facility] HospitalWzhimrcPTOHZRAYEZ2813-03-89 09:14:00 Test Item Value Reference Range Interpretation Comments RDW (test code = RDW) 17.9 11.5-14.5 [facility] HospitalTecdfgaXSJKSONUFF0831-49-64 09:14:00 Test Item Value Reference Range Interpretation Comments Platelet (test code = Platelet) 273 133-450 [facility] HospitalDvcwbmwYDWFYGJLWX4666-26-85 09:14:00 Test Item Value Reference Range Interpretation Comments MPV (test code = MPV) 8.3 7.4-10.4 [facility] HospitalNvphpubXGVELWVNSG6819-65-19 09:14:00 Test Item Value Reference Range Interpretation Comments RBC (test code = RBC) 5.66 4.20-5.40 [facility] HospitalHovdabaNWKAUOHZNI1280-47-63 09:14:00 Test Item Value Reference Range Interpretation Comments Hgb (test code = Hgb) 14.2 12.0-16.0 [facility] HospitalRmmtmwfCETUXDMBOH1577-20-83 09:14:00 Test Item Value Reference Range Interpretation Comments Hct (test code = Hct) 44.8 36.0-48.0 [facility] HospitalBsmhxblDIKWETERXX4208-06-14 09:14:00 Test Item Value Reference Range Interpretation Comments MCV (test code = MCV) 79.2 80.0-98.0 [facility] HospitalOpishyoDDGGHCDOMJ1581-41-96 09:14:00 Test Item Value Reference Range Interpretation Comments MCH (test code = MCH) 25.0 pg 27.0-31.0 [facility] HospitalLruimzyYPNSNQKPCR0804-92-23 09:14:00 Test Item Value Reference Range Interpretation Comments MCHC (test code = MCHC) 31.6 32.0-36.0 [facility] HospitalKdnzizuHKBJMLXQWE2900-05-04 09:14:00 Test Item Value Reference Range Interpretation Comments RDW (test code = RDW) 17.9 11.5-14.5 [facility] HospitalJtvhbudJGNGCWVRZP4972-22-69 09:14:00 Test Item Value Reference Range Interpretation Comments Platelet (test code = Platelet) 273 133-450 [facility] HospitalYmjlrynRAPCUBNAJE4061-33-33 09:14:00 Test Item Value Reference Range Interpretation Comments MPV (test code = MPV) 8.3 7.4-10.4 [facility]2019-12-02 09:14:00 Test Item Value Reference Range Interpretation Comments Glucose Lvl (test code = Glucose Lvl) 182 70-99 [facility]2019-12-02 09:14:00 Test Item Value Reference Range Interpretation Comments BUN (test code = BUN) 61 7-22 [facility]2019-12-02 09:14:00 Test Item Value Reference Range Interpretation Comments Creatinine Lvl (test code = Creatinine 7.76 0.50-1.40 Lvl) [facility]2019-12-02 09:14:00 Test Item Value Reference Range Interpretation Comments Sodium Lvl (test code = Sodium Lvl) 137 135-145 [facility]2019-12-02 09:14:00 Test Item Value Reference Range Interpretation Comments Potassium Lvl (test code = Potassium 4.7 3.5-5.1 Lvl) [facility]2019-12-02 09:14:00 Test Item Value Reference Range Interpretation Comments Chloride Lvl (test code = Chloride Lvl) 102 95-109 [facility]2019-12-02 09:14:00 Test Item Value Reference Range Interpretation Comments CO2 (test code = CO2) 20 24-32 [facility]2019-12-02 09:14:00 Test Item Value Reference Range Interpretation Comments AGAP (test code = AGAP) 19.7 10.0-20.0 [facility]2019-12-02 09:14:00 Test Item Value Reference Range Interpretation Comments Calcium Lvl (test code = Calcium Lvl) 8.6 8.5-10.5 [facility]2019-12-02 09:14:00 Test Item Value Reference Range Interpretation Comments Albumin Lvl (test code = Albumin Lvl) 2.6 3.5-5.0 [facility]2019-12-02 09:14:00 Test Item Value Reference Range Interpretation Comments Phosphorus (test code = Phosphorus) 8.1 2.5-4.5 [facility]2019-12-02 09:14:00 Test Item Value Reference Range Interpretation Comments eGFR (test code = eGFR) 5 [facility] HospitalBottufqMWWMWCTCEV9917-46-79 09:14:00 Test Item Value Reference Range Interpretation Comments Segs (test code = Segs) 60.8 45.0-75.0 [facility] HospitalFqenzfsYWPYVWMSRA0288-16-79 09:14:00 Test Item Value Reference Range Interpretation Comments Lymphocytes (test code = Lymphocytes) 24.6 20.0-40.0 [facility] HospitalTtnaulhFMVIYQKXVH9098-47-15 09:14:00 Test Item Value Reference Range Interpretation Comments Monocytes (test code = Monocytes) 8.0 2.0-12.0 [place] 896749-12-02 09:14:00 Test Item Value Reference Range Interpretation Comments Eosinophils (test code = Eosinophils) 5.3 <=4.0 [facility] HospitalHxxytsjYTJLJNCBXD6858-92-23 09:14:00 Test Item Value Reference Range Interpretation Comments Basophils (test code = Basophils) 1.3 <=1.0 [facility] HospitalVpkfxobPGIJWWBCLI0851-16-86 09:14:00 Test Item Value Reference Range Interpretation Comments Neutrophils # (test code = Neutrophils 4.7 1.5-8.1 #) [facility] HospitalWetlpnyIUOTHGLPXZ9482-02-02 09:14:00 Test Item Value Reference Range Interpretation Comments Lymphocytes # (test code = Lymphocytes 1.9 1.0-5.5 #) [facility] HospitalSbykshjIKGPBTAHJV9391-12-91 09:14:00 Test Item Value Reference Range Interpretation Comments Monocytes # (test code = Monocytes #) 0.6 <=0.8 [place] 896749-12-02 09:14:00 Test Item Value Reference Range Interpretation Comments Eosinophils # (test code = Eosinophils 0.4 <=0.5 #) [facility] HospitalRoxkpgoYURCRGJLCC1432-97-00 09:14:00 Test Item Value Reference Range Interpretation Comments Basophils # (test code = Basophils #) 0.1 <=0.2 [place] 896749-12-02 09:14:00 Test Item Value Reference Range Interpretation Comments WBC (test code = WBC) 7.8 3.7-10.4 [facility] HospitalTyhggaxADFOHPACHZ6167-69-57 09:14:00 Test Item Value Reference Range Interpretation Comments RBC (test code = RBC) 5.66 4.20-5.40 [facility] HospitalMbxwifkPSOHIUQGQZ0322-40-15 09:14:00 Test Item Value Reference Range Interpretation Comments Hgb (test code = Hgb) 14.2 12.0-16.0 [facility] HospitalZchyrcmOCINYPKOKW8978-56-59 09:14:00 Test Item Value Reference Range Interpretation Comments Hct (test code = Hct) 44.8 36.0-48.0 [facility] HospitalWnbjchpPKAWWASTUK0273-47-42 09:14:00 Test Item Value Reference Range Interpretation Comments MCV (test code = MCV) 79.2 80.0-98.0 [facility] HospitalVlwmtcmUUVCAEHIKA3490-51-03 09:14:00 Test Item Value Reference Range Interpretation Comments MCH (test code = MCH) 25.0 pg 27.0-31.0 [facility] HospitalZmjgcltIFVINBXQXQ8459-84-48 09:14:00 Test Item Value Reference Range Interpretation Comments MCHC (test code = MCHC) 31.6 32.0-36.0 [facility] HospitalMqrtctuKYSKOBHZNQ6644-37-01 09:14:00 Test Item Value Reference Range Interpretation Comments RDW (test code = RDW) 17.9 11.5-14.5 [facility] HospitalYeoynweRUPUNPAFCQ6762-15-92 09:14:00 Test Item Value Reference Range Interpretation Comments Platelet (test code = Platelet) 273 133-450 [facility] HospitalOhdxuynKVZQMTTXRX6465-06-75 09:14:00 Test Item Value Reference Range Interpretation Comments MPV (test code = MPV) 8.3 7.4-10.4 [facility]2019-12-02 09:14:00 Test Item Value Reference Range Interpretation Comments Glucose Lvl (test code = Glucose Lvl) 182 70-99 [facility]2019-12-02 09:14:00 Test Item Value Reference Range Interpretation Comments BUN (test code = BUN) 61 7-22 [facility]2019-12-02 09:14:00 Test Item Value Reference Range Interpretation Comments Creatinine Lvl (test code = Creatinine 7.76 0.50-1.40 Lvl) [facility]2019-12-02 09:14:00 Test Item Value Reference Range Interpretation Comments Sodium Lvl (test code = Sodium Lvl) 137 135-145 [facility]2019-12-02 09:14:00 Test Item Value Reference Range Interpretation Comments Potassium Lvl (test code = Potassium 4.7 3.5-5.1 Lvl) [facility]2019-12-02 09:14:00 Test Item Value Reference Range Interpretation Comments Chloride Lvl (test code = Chloride Lvl) 102 95-109 [facility]2019-12-02 09:14:00 Test Item Value Reference Range Interpretation Comments CO2 (test code = CO2) 20 24-32 [facility]2019-12-02 09:14:00 Test Item Value Reference Range Interpretation Comments AGAP (test code = AGAP) 19.7 10.0-20.0 [facility]2019-12-02 09:14:00 Test Item Value Reference Range Interpretation Comments Calcium Lvl (test code = Calcium Lvl) 8.6 8.5-10.5 [facility]2019-12-02 09:14:00 Test Item Value Reference Range Interpretation Comments Albumin Lvl (test code = Albumin Lvl) 2.6 3.5-5.0 [facility]2019-12-02 09:14:00 Test Item Value Reference Range Interpretation Comments Phosphorus (test code = Phosphorus) 8.1 2.5-4.5 [facility]2019-12-02 09:14:00 Test Item Value Reference Range Interpretation Comments eGFR (test code = eGFR) 5 [facility] HospitalFeorgceURAJHYYCQX4532-79-78 09:14:00 Test Item Value Reference Range Interpretation Comments Segs (test code = Segs) 60.8 45.0-75.0 [facility] HospitalDxwqmjwXWGEHVTOZN1964-45-54 09:14:00 Test Item Value Reference Range Interpretation Comments Lymphocytes (test code = Lymphocytes) 24.6 20.0-40.0 [facility] HospitalCifcstaRWEZMWZHOO6360-48-63 09:14:00 Test Item Value Reference Range Interpretation Comments Monocytes (test code = Monocytes) 8.0 2.0-12.0 [facility] HospitalBydnbqyMBMCPDMUCA9901-81-42 09:14:00 Test Item Value Reference Range Interpretation Comments Eosinophils (test code = Eosinophils) 5.3 <=4.0 [place] 896749-12-02 09:14:00 Test Item Value Reference Range Interpretation Comments Basophils (test code = Basophils) 1.3 <=1.0 [facility] HospitalUmhyejcDWBPBEJUKU5801-60-13 09:14:00 Test Item Value Reference Range Interpretation Comments Neutrophils # (test code = Neutrophils 4.7 1.5-8.1 #) [facility] HospitalScjivptGOJYNEAZJW3779-77-21 09:14:00 Test Item Value Reference Range Interpretation Comments Lymphocytes # (test code = Lymphocytes 1.9 1.0-5.5 #) [facility] HospitalDpmntkgNAHOFFUBVY7518-23-85 09:14:00 Test Item Value Reference Range Interpretation Comments Monocytes # (test code = Monocytes #) 0.6 <=0.8 [place] [address]-12-02 09:14:00 Test Item Value Reference Range Interpretation Comments Eosinophils # (test code = Eosinophils 0.4 <=0.5 #) [facility] HospitalUlxzrdqYEJLGANOMJ5359-92-73 09:14:00 Test Item Value Reference Range Interpretation Comments Basophils # (test code = Basophils #) 0.1 <=0.2 [place] 896749-12-02 09:14:00 Test Item Value Reference Range Interpretation Comments WBC (test code = WBC) 7.8 3.7-10.4 [facility] HospitalRmtesjdAYKYTZZYCP5285-55-67 09:14:00 Test Item Value Reference Range Interpretation Comments RBC (test code = RBC) 5.66 4.20-5.40 [facility] HospitalHuvzdhrJXPKIUEPZS9521-01-38 09:14:00 Test Item Value Reference Range Interpretation Comments Hgb (test code = Hgb) 14.2 12.0-16.0 [facility] HospitalCilpgycAFYRWFWEOD6548-49-85 09:14:00 Test Item Value Reference Range Interpretation Comments Hct (test code = Hct) 44.8 36.0-48.0 [facility] HospitalWtfrahhOEEAWVPOFH2718-61-24 09:14:00 Test Item Value Reference Range Interpretation Comments MCV (test code = MCV) 79.2 80.0-98.0 [place] [address]-12-02 09:14:00 Test Item Value Reference Range Interpretation Comments MCH (test code = MCH) 25.0 pg 27.0-31.0 [place] 896749-12-02 09:14:00 Test Item Value Reference Range Interpretation Comments MCHC (test code = MCHC) 31.6 32.0-36.0 [facility] HospitalAzeikeiGPJYZXYKXU6262-27-13 09:14:00 Test Item Value Reference Range Interpretation Comments RDW (test code = RDW) 17.9 11.5-14.5 [facility] HospitalExjuzueBFWLVWLLFH2002-28-78 09:14:00 Test Item Value Reference Range Interpretation Comments Platelet (test code = Platelet) 273 133-450 [facility] HospitalTvrfynbVSWOBJUKAN8628-21-91 09:14:00 Test Item Value Reference Range Interpretation Comments MPV (test code = MPV) 8.3 7.4-10.4 [facility]2019-12-02 09:14:00 Test Item Value Reference Range Interpretation Comments Glucose Lvl (test code = Glucose Lvl) 182 70-99 [facility]2019-12-02 09:14:00 Test Item Value Reference Range Interpretation Comments BUN (test code = BUN) 61 7-22 [facility]2019-12-02 09:14:00 Test Item Value Reference Range Interpretation Comments Creatinine Lvl (test code = Creatinine 7.76 0.50-1.40 Lvl) [facility]2019-12-02 09:14:00 Test Item Value Reference Range Interpretation Comments Sodium Lvl (test code = Sodium Lvl) 137 135-145 [facility]2019-12-02 09:14:00 Test Item Value Reference Range Interpretation Comments Potassium Lvl (test code = Potassium 4.7 3.5-5.1 Lvl) [facility]2019-12-02 09:14:00 Test Item Value Reference Range Interpretation Comments Chloride Lvl (test code = Chloride Lvl) 102 95-109 [facility]2019-12-02 09:14:00 Test Item Value Reference Range Interpretation Comments CO2 (test code = CO2) 20 24-32 [facility]2019-12-02 09:14:00 Test Item Value Reference Range Interpretation Comments AGAP (test code = AGAP) 19.7 10.0-20.0 [facility]2019-12-02 09:14:00 Test Item Value Reference Range Interpretation Comments Calcium Lvl (test code = Calcium Lvl) 8.6 8.5-10.5 [facility]2019-12-02 09:14:00 Test Item Value Reference Range Interpretation Comments Albumin Lvl (test code = Albumin Lvl) 2.6 3.5-5.0 [facility]2019-12-02 09:14:00 Test Item Value Reference Range Interpretation Comments Phosphorus (test code = Phosphorus) 8.1 2.5-4.5 [facility]2019-12-02 09:14:00 Test Item Value Reference Range Interpretation Comments eGFR (test code = eGFR) 5 [facility] HospitalIexzoksLQAORNKDLU6211-20-24 09:14:00 Test Item Value Reference Range Interpretation Comments Segs (test code = Segs) 60.8 45.0-75.0 [facility] HospitalKjuwgyxAOXELSOPJN2772-70-29 09:14:00 Test Item Value Reference Range Interpretation Comments Lymphocytes (test code = Lymphocytes) 24.6 20.0-40.0 [facility] HospitalWnwzxroXZQMEPMHTY3516-03-53 09:14:00 Test Item Value Reference Range Interpretation Comments Monocytes (test code = Monocytes) 8.0 2.0-12.0 [facility] HospitalXtpxvhbKKADHOCEXC5993-70-41 09:14:00 Test Item Value Reference Range Interpretation Comments Eosinophils (test code = Eosinophils) 5.3 <=4.0 [facility] HospitalEcpdyfxEWQBWBEWAF2193-12-36 09:14:00 Test Item Value Reference Range Interpretation Comments Basophils (test code = Basophils) 1.3 <=1.0 [facility] HospitalLlcipgpVXAFGQYRSR1627-76-58 09:14:00 Test Item Value Reference Range Interpretation Comments Neutrophils # (test code = Neutrophils 4.7 1.5-8.1 #) [facility] HospitalFucjldpOWKZSJODEN7569-00-92 09:14:00 Test Item Value Reference Range Interpretation Comments Lymphocytes # (test code = Lymphocytes 1.9 1.0-5.5 #) [facility] HospitalGmkiljoAWISCPXIGI6709-70-32 09:14:00 Test Item Value Reference Range Interpretation Comments Monocytes # (test code = Monocytes #) 0.6 <=0.8 [facility] HospitalCkdocwfAMAQUXTIJA4653-81-28 09:14:00 Test Item Value Reference Range Interpretation Comments Eosinophils # (test code = Eosinophils 0.4 <=0.5 #) [facility] HospitalSulzigiFWBATMDWKA3711-10-07 09:14:00 Test Item Value Reference Range Interpretation Comments Basophils # (test code = Basophils #) 0.1 <=0.2 [facility] HospitalWzrdtwlHJOBYIRUCX0775-11-18 09:14:00 Test Item Value Reference Range Interpretation Comments WBC (test code = WBC) 7.8 3.7-10.4 [facility] [facility]F3503-28-56 09:14:00 Test Item Value Reference Range Interpretation Comments RBC (test code = RBC) 5.66 4.20-5.40 [facility]GgcmihuMUPUKBZLKD2685-36-07 09:14:00 Test Item Value Reference Range Interpretation Comments Hgb (test code = Hgb) 14.2 12.0-16.0 [facility] HospitalLvarymnRDUWWSDKHD9322-14-93 09:14:00 Test Item Value Reference Range Interpretation Comments Hct (test code = Hct) 44.8 36.0-48.0 [facility] HospitalMrqnlbvPJMNQTVSVC9835-35-07 09:14:00 Test Item Value Reference Range Interpretation Comments MCV (test code = MCV) 79.2 80.0-98.0 [facility] HospitalPrwcfmrCMCXWCQHDK0942-01-18 09:14:00 Test Item Value Reference Range Interpretation Comments MCH (test code = MCH) 25.0 pg 27.0-31.0 [facility] HospitalJhfkogqGUIOGBFYKV5898-48-65 09:14:00 Test Item Value Reference Range Interpretation Comments MCHC (test code = MCHC) 31.6 32.0-36.0 [facility] HospitalIxhzuluCVYSZONSSP8098-87-32 09:14:00 Test Item Value Reference Range Interpretation Comments RDW (test code = RDW) 17.9 11.5-14.5 [facility] HospitalWqzhrjjEOWMIPHPIS0820-70-65 09:14:00 Test Item Value Reference Range Interpretation Comments Platelet (test code = Platelet) 273 133-450 [facility] HospitalBzvsocmFQAPIHAVCJ5307-53-95 09:14:00 Test Item Value Reference Range Interpretation Comments MPV (test code = MPV) 8.3 7.4-10.4 [facility]2019-12-02 09:14:00 Test Item Value Reference Range Interpretation Comments Glucose Lvl (test code = Glucose Lvl) 182 70-99 [facility]2019-12-02 09:14:00 Test Item Value Reference Range Interpretation Comments BUN (test code = BUN) 61 7-22 [facility]2019-12-02 09:14:00 Test Item Value Reference Range Interpretation Comments Creatinine Lvl (test code = Creatinine 7.76 0.50-1.40 Lvl) [facility]2019-12-02 09:14:00 Test Item Value Reference Range Interpretation Comments Sodium Lvl (test code = Sodium Lvl) 137 135-145 [facility]2019-12-02 09:14:00 Test Item Value Reference Range Interpretation Comments Potassium Lvl (test code = Potassium 4.7 3.5-5.1 Lvl) [facility]2019-12-02 09:14:00 Test Item Value Reference Range Interpretation Comments Chloride Lvl (test code = Chloride Lvl) 102 95-109 [facility]2019-12-02 09:14:00 Test Item Value Reference Range Interpretation Comments CO2 (test code = CO2) 20 24-32 [facility]2019-12-02 09:14:00 Test Item Value Reference Range Interpretation Comments AGAP (test code = AGAP) 19.7 10.0-20.0 [facility]2019-12-02 09:14:00 Test Item Value Reference Range Interpretation Comments Calcium Lvl (test code = Calcium Lvl) 8.6 8.5-10.5 [facility]2019-12-02 09:14:00 Test Item Value Reference Range Interpretation Comments Albumin Lvl (test code = Albumin Lvl) 2.6 3.5-5.0 [facility]2019-12-02 09:14:00 Test Item Value Reference Range Interpretation Comments Phosphorus (test code = Phosphorus) 8.1 2.5-4.5 [facility]2019-12-02 09:14:00 Test Item Value Reference Range Interpretation Comments eGFR (test code = eGFR) 5 [facility] HospitalOjcmcdgYVCFEGRTNA0422-24-19 09:14:00 Test Item Value Reference Range Interpretation Comments Segs (test code = Segs) 60.8 45.0-75.0 [facility] HospitalFmijeeeTQZFZMLRBD7568-73-81 09:14:00 Test Item Value Reference Range Interpretation Comments Lymphocytes (test code = Lymphocytes) 24.6 20.0-40.0 [facility] HospitalWsapoobNWZXHHNSJO0134-30-67 09:14:00 Test Item Value Reference Range Interpretation Comments Monocytes (test code = Monocytes) 8.0 2.0-12.0 [facility] HospitalXpczncsVJHKNMPWHN6058-99-24 09:14:00 Test Item Value Reference Range Interpretation Comments Eosinophils (test code = Eosinophils) 5.3 <=4.0 [facility] HospitalGhybggfRSPHBTIXPQ0222-26-84 09:14:00 Test Item Value Reference Range Interpretation Comments Basophils (test code = Basophils) 1.3 <=1.0 [facility] HospitalMlmrxrkCWSQUXRMGV2110-57-72 09:14:00 Test Item Value Reference Range Interpretation Comments Neutrophils # (test code = Neutrophils 4.7 1.5-8.1 #) [facility] HospitalJwxtilaXUWQTBLPXQ5431-25-81 09:14:00 Test Item Value Reference Range Interpretation Comments Lymphocytes # (test code = Lymphocytes 1.9 1.0-5.5 #) [facility] HospitalFxlacqaUAXQEDMUIK8060-60-31 09:14:00 Test Item Value Reference Range Interpretation Comments Monocytes # (test code = Monocytes #) 0.6 <=0.8 [facility] HospitalJyqndkgSCBYRAJOSC1943-65-88 09:14:00 Test Item Value Reference Range Interpretation Comments Eosinophils # (test code = Eosinophils 0.4 <=0.5 #) [facility] HospitalNdadnaaTBSQEIRYYM8207-20-49 09:14:00 Test Item Value Reference Range Interpretation Comments Basophils # (test code = Basophils #) 0.1 <=0.2 [facility] HospitalOgsbdteOPUVZFLHDD3504-36-39 09:14:00 Test Item Value Reference Range Interpretation Comments WBC (test code = WBC) 7.8 3.7-10.4 [facility] HospitalNpnqvrxIMXMWVFGMU1786-07-58 09:14:00 Test Item Value Reference Range Interpretation Comments RBC (test code = RBC) 5.66 4.20-5.40 [facility] HospitalYxuobdfJHGLVKNVTS0521-88-34 09:14:00 Test Item Value Reference Range Interpretation Comments Hgb (test code = Hgb) 14.2 12.0-16.0 [facility] HospitalRsbsqpcEJAPVEDAHK0634-14-18 09:14:00 Test Item Value Reference Range Interpretation Comments Hct (test code = Hct) 44.8 36.0-48.0 [facility] HospitalNfjcgmwVXFCDSMVPU9642-27-31 09:14:00 Test Item Value Reference Range Interpretation Comments MCV (test code = MCV) 79.2 80.0-98.0 [place] [address]-12-02 09:14:00 Test Item Value Reference Range Interpretation Comments MCH (test code = MCH) 25.0 pg 27.0-31.0 [facility] HospitalDdvvfmzELZMZSBFTU7416-05-94 09:14:00 Test Item Value Reference Range Interpretation Comments MCHC (test code = MCHC) 31.6 32.0-36.0 [facility] HospitalYegnkdjMCBMTBVECD0884-40-47 09:14:00 Test Item Value Reference Range Interpretation Comments RDW (test code = RDW) 17.9 11.5-14.5 [place] 896749-12-02 09:14:00 Test Item Value Reference Range Interpretation Comments Platelet (test code = Platelet) 273 133-450 [facility] HospitalUhktnjuPIQNIYUCXX3506-50-60 09:14:00 Test Item Value Reference Range Interpretation Comments MPV (test code = MPV) 8.3 7.4-10.4 [facility]2019-12-02 09:14:00 Test Item Value Reference Range Interpretation Comments Glucose Lvl (test code = Glucose Lvl) 182 70-99 [facility]2019-12-02 09:14:00 Test Item Value Reference Range Interpretation Comments BUN (test code = BUN) 61 7-22 [facility]2019-12-02 09:14:00 Test Item Value Reference Range Interpretation Comments Creatinine Lvl (test code = Creatinine 7.76 0.50-1.40 Lvl) [facility]2019-12-02 09:14:00 Test Item Value Reference Range Interpretation Comments Sodium Lvl (test code = Sodium Lvl) 137 135-145 [facility]2019-12-02 09:14:00 Test Item Value Reference Range Interpretation Comments Potassium Lvl (test code = Potassium 4.7 3.5-5.1 Lvl) [facility]2019-12-02 09:14:00 Test Item Value Reference Range Interpretation Comments Chloride Lvl (test code = Chloride Lvl) 102 95-109 [facility]2019-12-02 09:14:00 Test Item Value Reference Range Interpretation Comments CO2 (test code = CO2) 20 24-32 [facility]2019-12-02 09:14:00 Test Item Value Reference Range Interpretation Comments AGAP (test code = AGAP) 19.7 10.0-20.0 [facility]2019-12-02 09:14:00 Test Item Value Reference Range Interpretation Comments Calcium Lvl (test code = Calcium Lvl) 8.6 8.5-10.5 [facility]2019-12-02 09:14:00 Test Item Value Reference Range Interpretation Comments Albumin Lvl (test code = Albumin Lvl) 2.6 3.5-5.0 [facility]2019-12-02 09:14:00 Test Item Value Reference Range Interpretation Comments Phosphorus (test code = Phosphorus) 8.1 2.5-4.5 [facility]2019-12-02 09:14:00 Test Item Value Reference Range Interpretation Comments eGFR (test code = eGFR) 5 [facility] HospitalMwcnhbsNSQPLXPXSV1519-91-25 09:14:00 Test Item Value Reference Range Interpretation Comments Segs (test code = Segs) 60.8 45.0-75.0 [facility] HospitalZclsxegJPXWYQJNFV0652-01-04 09:14:00 Test Item Value Reference Range Interpretation Comments Lymphocytes (test code = Lymphocytes) 24.6 20.0-40.0 [facility] HospitalCvxedfcTRIEYTGONY1015-67-59 09:14:00 Test Item Value Reference Range Interpretation Comments Monocytes (test code = Monocytes) 8.0 2.0-12.0 [facility] HospitalFanbomnSIFTDJDJJX8108-08-03 09:14:00 Test Item Value Reference Range Interpretation Comments Eosinophils (test code = 5.3 See_Comment [A utomated message] The Eosinophils) system which ge nerated this result tra nsmitted reference range : <=4.0. The reference r henry was not used to int erpret this result as normal/abnormal . [facility] HospitalGpdvixxGVZJEUFMOD7954-07-10 09:14:00 Test Item Value Reference Range Interpretation Comments Basophils (test code = 1.3 See_Comment [Aut omated message] The Basophils) system which ge nerated this result tra nsmitted reference range : <=1.0. The reference r henry was not used to int erpret this result as normal/abnormal . [facility] HospitalYkiqnntJXMHTRIVBE9112-90-51 09:14:00 Test Item Value Reference Range Interpretation Comments Neutrophils # (test code = Neutrophils 4.7 1.5-8.1 #) [facility] HospitalOksoixxWMMPTYMQLU5284-53-04 09:14:00 Test Item Value Reference Range Interpretation Comments Lymphocytes # (test code = Lymphocytes 1.9 1.0-5.5 #) [facility] HospitalDsfaczeLRKRUUZDKD4697-58-21 09:14:00 Test Item Value Reference Range Interpretation Comments Monocytes # (test code 0.6 See_Comment [Aut omated message] The = Monocytes #) system which generated this result tra nsmitted reference range : <=0.8. The reference r henry was not used to int erpret this result as normal/abnormal . [facility] HospitalNchcxigFLMOHQVCIW7691-51-18 09:14:00 Test Item Value Reference Range Interpretation Comments Eosinophils # (test code 0.4 See_Comment [A utomated message] The = Eosinophils #) system whic h generated this result tra nsmitted reference range : <=0.5. The reference r henry was not used to int erpret this result as normal/abnormal . [facility] HospitalGxygrdhDKENKJMAYS3823-34-25 09:14:00 Test Item Value Reference Range Interpretation Comments Basophils # (test code 0.1 See_Comment [Aut omated message] The = Basophils #) system which generated this result tra nsmitted reference range : <=0.2. The reference r henry was not used to int erpret this result as normal/abnormal . [facility] HospitalGqqjjojEWIAECLNCJ5058-80-42 09:14:00 Test Item Value Reference Range Interpretation Comments WBC (test code = WBC) 7.8 3.7-10.4 [facility] HospitalTfcbbexTBDITEGIVW9165-36-15 09:14:00 Test Item Value Reference Range Interpretation Comments RBC (test code = RBC) 5.66 4.20-5.40 [facility] HospitalLmydvalIIWSBCDEDZ1161-29-10 09:14:00 Test Item Value Reference Range Interpretation Comments Hgb (test code = Hgb) 14.2 12.0-16.0 [place] 896749-12-02 09:14:00 Test Item Value Reference Range Interpretation Comments Hct (test code = Hct) 44.8 36.0-48.0 [place] 896749-12-02 09:14:00 Test Item Value Reference Range Interpretation Comments MCV (test code = MCV) 79.2 80.0-98.0 [place] 896749-12-02 09:14:00 Test Item Value Reference Range Interpretation Comments MCH (test code = MCH) 25.0 pg 27.0-31.0 [facility] HospitalMcrtxruWSDRIRRPWE7322-88-63 09:14:00 Test Item Value Reference Range Interpretation Comments MCHC (test code = MCHC) 31.6 32.0-36.0 [facility] HospitalVfbzbjfLFMPAKAMKJ2682-48-46 09:14:00 Test Item Value Reference Range Interpretation Comments RDW (test code = RDW) 17.9 11.5-14.5 [facility] HospitalWkbzmadHAXPGOJECF6127-17-23 09:14:00 Test Item Value Reference Range Interpretation Comments Platelet (test code = Platelet) 273 133-450 [facility] HospitalKgsmmccKWDAJALSLP7286-72-84 09:14:00 Test Item Value Reference Range Interpretation Comments MPV (test code = MPV) 8.3 7.4-10.4 [facility]2019-12-02 09:14:00 Test Item Value Reference Range Interpretation Comments Glucose Lvl (test code = Glucose Lvl) 182 70-99 [facility]2019-12-02 09:14:00 Test Item Value Reference Range Interpretation Comments BUN (test code = BUN) 61 7-22 [facility]2019-12-02 09:14:00 Test Item Value Reference Range Interpretation Comments Creatinine Lvl (test code = Creatinine 7.76 0.50-1.40 Lvl) [facility]2019-12-02 09:14:00 Test Item Value Reference Range Interpretation Comments Sodium Lvl (test code = Sodium Lvl) 137 135-145 [facility]2019-12-02 09:14:00 Test Item Value Reference Range Interpretation Comments Potassium Lvl (test code = Potassium 4.7 3.5-5.1 Lvl) [facility]2019-12-02 09:14:00 Test Item Value Reference Range Interpretation Comments Chloride Lvl (test code = Chloride Lvl) 102 95-109 [facility]2019-12-02 09:14:00 Test Item Value Reference Range Interpretation Comments CO2 (test code = CO2) 20 24-32 [facility]2019-12-02 09:14:00 Test Item Value Reference Range Interpretation Comments AGAP (test code = AGAP) 19.7 10.0-20.0 [facility]2019-12-02 09:14:00 Test Item Value Reference Range Interpretation Comments Calcium Lvl (test code = Calcium Lvl) 8.6 8.5-10.5 [facility]2019-12-02 09:14:00 Test Item Value Reference Range Interpretation Comments Albumin Lvl (test code = Albumin Lvl) 2.6 3.5-5.0 [facility]2019-12-02 09:14:00 Test Item Value Reference Range Interpretation Comments Phosphorus (test code = Phosphorus) 8.1 2.5-4.5 [facility]2019-12-02 09:14:00 Test Item Value Reference Range Interpretation Comments eGFR (test code = eGFR) 5 [facility] HospitalEhqmbslLMECEPNUYK9232-10-95 09:14:00 Test Item Value Reference Range Interpretation Comments Segs (test code = Segs) 60.8 45.0-75.0 [facility] HospitalXdewtlvGJOMYNLJCC1733-51-50 09:14:00 Test Item Value Reference Range Interpretation Comments Lymphocytes (test code = Lymphocytes) 24.6 20.0-40.0 [facility] HospitalJoxbuzwTPWTUQFEXT6249-19-10 09:14:00 Test Item Value Reference Range Interpretation Comments Monocytes (test code = Monocytes) 8.0 2.0-12.0 [facility] HospitalZhihcphTDHWMKJQEY3130-10-31 09:14:00 Test Item Value Reference Range Interpretation Comments Eosinophils (test code = 5.3 See_Comment [A utomated message] The Eosinophils) system which ge nerated this result tra nsmitted reference range : <=4.0. The reference r henry was not used to int erpret this result as normal/abnormal . [facility] HospitalXlazskrZXRUQJEJRC9944-96-57 09:14:00 Test Item Value Reference Range Interpretation Comments Basophils (test code = 1.3 See_Comment [Aut omated message] The Basophils) system which ge nerated this result tra nsmitted reference range : <=1.0. The reference r henry was not used to int erpret this result as normal/abnormal . [facility] HospitalLdtrygcVVFBTFPMTE9117-64-26 09:14:00 Test Item Value Reference Range Interpretation Comments Neutrophils # (test code = Neutrophils 4.7 1.5-8.1 #) [facility] HospitalXlrwpxdXJMWPGKPHG0515-32-00 09:14:00 Test Item Value Reference Range Interpretation Comments Lymphocytes # (test code = Lymphocytes 1.9 1.0-5.5 #) [facility] HospitalUwbfqaqNJWODEVABB5471-15-82 09:14:00 Test Item Value Reference Range Interpretation Comments Monocytes # (test code 0.6 See_Comment [Aut omated message] The = Monocytes #) system which generated this result tra nsmitted reference range : <=0.8. The reference r henry was not used to int erpret this result as normal/abnormal . [facility] HospitalSzknmtjTCCJGCNEVX0971-69-61 09:14:00 Test Item Value Reference Range Interpretation Comments Eosinophils # (test code 0.4 See_Comment [A utomated message] The = Eosinophils #) system whic h generated this result tra nsmitted reference range : <=0.5. The reference r henry was not used to int erpret this result as normal/abnormal . [facility] HospitalUvjjslvMGQTRFEPWU7254-72-62 09:14:00 Test Item Value Reference Range Interpretation Comments Basophils # (test code 0.1 See_Comment [Aut omated message] The = Basophils #) system which generated this result tra nsmitted reference range : <=0.2. The reference r henry was not used to int erpret this result as normal/abnormal . [facility] HospitalAfqsqxlRZRPWNUNHQ1236-60-10 09:14:00 Test Item Value Reference Range Interpretation Comments WBC (test code = WBC) 7.8 3.7-10.4 [facility] HospitalArqxmrrKNJDJMWUKO4353-35-06 09:14:00 Test Item Value Reference Range Interpretation Comments RBC (test code = RBC) 5.66 4.20-5.40 [facility] HospitalHroqlstYZAMFDVCOY6111-76-33 09:14:00 Test Item Value Reference Range Interpretation Comments Hgb (test code = Hgb) 14.2 12.0-16.0 [facility] HospitalBmborupDQBFYOYXXL2087-68-78 09:14:00 Test Item Value Reference Range Interpretation Comments Hct (test code = Hct) 44.8 36.0-48.0 [facility] HospitalEojcxsxUIEPMSVBTM2979-34-13 09:14:00 Test Item Value Reference Range Interpretation Comments MCV (test code = MCV) 79.2 80.0-98.0 [facility] HospitalHniimblIQDAOVUKIN8192-17-86 09:14:00 Test Item Value Reference Range Interpretation Comments MCH (test code = MCH) 25.0 pg 27.0-31.0 [facility] HospitalKkknfbxECPJJSMAZA5247-59-42 09:14:00 Test Item Value Reference Range Interpretation Comments MCHC (test code = MCHC) 31.6 32.0-36.0 [facility] HospitalDzfkkwfBNAHGHYTFC7445-49-53 09:14:00 Test Item Value Reference Range Interpretation Comments RDW (test code = RDW) 17.9 11.5-14.5 [facility] HospitalFuyjzrzYMYCXUGPVP8835-31-81 09:14:00 Test Item Value Reference Range Interpretation Comments Platelet (test code = Platelet) 273 133-450 [facility] HospitalHuqtlhjMZUOMGHJTK5730-34-54 09:14:00 Test Item Value Reference Range Interpretation Comments MPV (test code = MPV) 8.3 7.4-10.4 [facility]2019-12-02 09:14:00 Test Item Value Reference Range Interpretation Comments Glucose Lvl (test code = Glucose Lvl) 182 70-99 [facility]2019-12-02 09:14:00 Test Item Value Reference Range Interpretation Comments BUN (test code = BUN) 61 7-22 [facility]2019-12-02 09:14:00 Test Item Value Reference Range Interpretation Comments Creatinine Lvl (test code = Creatinine 7.76 0.50-1.40 Lvl) [facility]2019-12-02 09:14:00 Test Item Value Reference Range Interpretation Comments Sodium Lvl (test code = Sodium Lvl) 137 135-145 [facility]2019-12-02 09:14:00 Test Item Value Reference Range Interpretation Comments Potassium Lvl (test code = Potassium 4.7 3.5-5.1 Lvl) [facility]2019-12-02 09:14:00 Test Item Value Reference Range Interpretation Comments Chloride Lvl (test code = Chloride Lvl) 102 95-109 [facility]2019-12-02 09:14:00 Test Item Value Reference Range Interpretation Comments CO2 (test code = CO2) 20 24-32 [facility]2019-12-02 09:14:00 Test Item Value Reference Range Interpretation Comments AGAP (test code = AGAP) 19.7 10.0-20.0 [facility]2019-12-02 09:14:00 Test Item Value Reference Range Interpretation Comments Calcium Lvl (test code = Calcium Lvl) 8.6 8.5-10.5 [facility]2019-12-02 09:14:00 Test Item Value Reference Range Interpretation Comments Albumin Lvl (test code = Albumin Lvl) 2.6 3.5-5.0 [facility]2019-12-02 09:14:00 Test Item Value Reference Range Interpretation Comments Phosphorus (test code = Phosphorus) 8.1 2.5-4.5 [facility]2019-12-02 09:14:00 Test Item Value Reference Range Interpretation Comments eGFR (test code = eGFR) 5 [facility] HospitalZbjrwqjVNMQOOLPNS3380-97-42 09:14:00 Test Item Value Reference Range Interpretation Comments Segs (test code = Segs) 60.8 45.0-75.0 [facility] HospitalGlvdqycRLSGPHDADO7272-55-48 09:14:00 Test Item Value Reference Range Interpretation Comments Lymphocytes (test code = Lymphocytes) 24.6 20.0-40.0 [facility] HospitalOkqygajLEEGVDRKOH7939-07-27 09:14:00 Test Item Value Reference Range Interpretation Comments Monocytes (test code = Monocytes) 8.0 2.0-12.0 [facility]2019-12-02 09:14:00 Test Item Value Reference Range Interpretation Comments Glucose Lvl (test code = Glucose Lvl) 182 70-99 [facility]2019-12-02 09:14:00 Test Item Value Reference Range Interpretation Comments BUN (test code = BUN) 61 7-22 [facility]2019-12-02 09:14:00 Test Item Value Reference Range Interpretation Comments Creatinine Lvl (test code = Creatinine 7.76 0.50-1.40 Lvl) [facility]2019-12-02 09:14:00 Test Item Value Reference Range Interpretation Comments Sodium Lvl (test code = Sodium Lvl) 137 135-145 [facility] HospitalLwxjnlnKIYXTRKKDW5776-46-70 09:14:00 Test Item Value Reference Range Interpretation Comments Eosinophils (test code = 5.3 See_Comment [A utomated message] The Eosinophils) system which ge nerated this result tra nsmitted reference range : <=4.0. The reference r henry was not used to int erpret this result as normal/abnormal . [facility]2019-12-02 09:14:00 Test Item Value Reference Range Interpretation Comments Potassium Lvl (test code = Potassium 4.7 3.5-5.1 Lvl) [facility]2019-12-02 09:14:00 Test Item Value Reference Range Interpretation Comments Chloride Lvl (test code = Chloride Lvl) 102 95-109 [facility]2019-12-02 09:14:00 Test Item Value Reference Range Interpretation Comments CO2 (test code = CO2) 20 24-32 [facility]2019-12-02 09:14:00 Test Item Value Reference Range Interpretation Comments AGAP (test code = AGAP) 19.7 10.0-20.0 [facility]2019-12-02 09:14:00 Test Item Value Reference Range Interpretation Comments Calcium Lvl (test code = Calcium Lvl) 8.6 8.5-10.5 [facility]2019-12-02 09:14:00 Test Item Value Reference Range Interpretation Comments Albumin Lvl (test code = Albumin Lvl) 2.6 3.5-5.0 [facility]2019-12-02 09:14:00 Test Item Value Reference Range Interpretation Comments Phosphorus (test code = Phosphorus) 8.1 2.5-4.5 [facility]2019-12-02 09:14:00 Test Item Value Reference Range Interpretation Comments eGFR (test code = eGFR) 5 [facility]TyxmgswRDBSOIGELF6495-11-47 09:14:00 Test Item Value Reference Range Interpretation Comments Segs (test code = Segs) 60.8 45.0-75.0 [facility] HospitalKycqonpASAQIFTWJR2693-46-67 09:14:00 Test Item Value Reference Range Interpretation Comments Lymphocytes (test code = Lymphocytes) 24.6 20.0-40.0 [facility] HospitalBossttuKCVMKZLGUR7176-06-05 09:14:00 Test Item Value Reference Range Interpretation Comments Basophils (test code = 1.3 See_Comment [Aut omated message] The Basophils) system which ge nerated this result tra nsmitted reference range : <=1.0. The reference r henry was not used to int erpret this result as normal/abnormal . [facility] HospitalMnjzmeiJJBDVSINCD1785-61-11 09:14:00 Test Item Value Reference Range Interpretation Comments Monocytes (test code = Monocytes) 8.0 2.0-12.0 [facility] HospitalZxqaxfyCAYKPTZMMQ8319-87-02 09:14:00 Test Item Value Reference Range Interpretation Comments Eosinophils (test code = 5.3 See_Comment [A utomated message] The Eosinophils) system which ge nerated this result tra nsmitted reference range : <=4.0. The reference r henry was not used to int erpret this result as normal/abnormal . [facility] HospitalRsdnhszNFDPENAVCK9398-65-50 09:14:00 Test Item Value Reference Range Interpretation Comments Basophils (test code = 1.3 See_Comment [Aut omated message] The Basophils) system which ge nerated this result tra nsmitted reference range : <=1.0. The reference r henry was not used to int erpret this result as normal/abnormal . [facility] HospitalEjpuftlSVAGTNHFDR5037-68-67 09:14:00 Test Item Value Reference Range Interpretation Comments Neutrophils # (test code = Neutrophils 4.7 1.5-8.1 #) [facility] HospitalCzoxmpnKDPVHZMCCW7198-98-14 09:14:00 Test Item Value Reference Range Interpretation Comments Lymphocytes # (test code = Lymphocytes 1.9 1.0-5.5 #) [facility] HospitalWyjfdswTWEBGUBAHR1541-31-60 09:14:00 Test Item Value Reference Range Interpretation Comments Monocytes # (test code 0.6 See_Comment [Aut omated message] The = Monocytes #) system which generated this result tra nsmitted reference range : <=0.8. The reference r henry was not used to int erpret this result as normal/abnormal . [facility] HospitalLekusekFUFDHGFTUL4125-85-59 09:14:00 Test Item Value Reference Range Interpretation Comments Eosinophils # (test code 0.4 See_Comment [A utomated message] The = Eosinophils #) system whic h generated this result tra nsmitted reference range : <=0.5. The reference r henry was not used to int erpret this result as normal/abnormal . [facility] HospitalXphgkrvAEYGMVMQXY6279-40-08 09:14:00 Test Item Value Reference Range Interpretation Comments Basophils # (test code 0.1 See_Comment [Aut omated message] The = Basophils #) system which generated this result tra nsmitted reference range : <=0.2. The reference r henry was not used to int erpret this result as normal/abnormal . [facility] HospitalIqgwmymYYVQDNKYUC5672-20-81 09:14:00 Test Item Value Reference Range Interpretation Comments WBC (test code = WBC) 7.8 3.7-10.4 [facility] HospitalWqtsktvISPHMSSVMC2059-25-82 09:14:00 Test Item Value Reference Range Interpretation Comments RBC (test code = RBC) 5.66 4.20-5.40 [facility] HospitalMlrgvzxIXQYHUHQKC6294-99-15 09:14:00 Test Item Value Reference Range Interpretation Comments Neutrophils # (test code = Neutrophils 4.7 1.5-8.1 #) [facility] HospitalFkaigcvPQCOVDWSLN1467-73-28 09:14:00 Test Item Value Reference Range Interpretation Comments Hgb (test code = Hgb) 14.2 12.0-16.0 [place] [address]-12-02 09:14:00 Test Item Value Reference Range Interpretation Comments Hct (test code = Hct) 44.8 36.0-48.0 [facility] HospitalLsawxjyKAQRXTGDAV2445-26-83 09:14:00 Test Item Value Reference Range Interpretation Comments MCV (test code = MCV) 79.2 80.0-98.0 [facility] HospitalQnudsocJVUXLGNHXY1070-52-38 09:14:00 Test Item Value Reference Range Interpretation Comments MCH (test code = MCH) 25.0 pg 27.0-31.0 [facility] HospitalUazxlhdHZBVTWBFMI5987-42-32 09:14:00 Test Item Value Reference Range Interpretation Comments MCHC (test code = MCHC) 31.6 32.0-36.0 [facility] HospitalQnervjgAVMZJZAWSH9566-82-53 09:14:00 Test Item Value Reference Range Interpretation Comments RDW (test code = RDW) 17.9 11.5-14.5 [facility] HospitalMnmhcksTGCITJIXOC5942-65-64 09:14:00 Test Item Value Reference Range Interpretation Comments Platelet (test code = Platelet) 273 133-450 [facility] HospitalZzcsruxXPXDPCNVKK8414-54-74 09:14:00 Test Item Value Reference Range Interpretation Comments MPV (test code = MPV) 8.3 7.4-10.4 [facility] HospitalFkpumvvVGRGBQWUWJ4714-72-35 09:14:00 Test Item Value Reference Range Interpretation Comments Lymphocytes # (test code = Lymphocytes 1.9 1.0-5.5 #) [facility] HospitalUnamjrhTZVAZVMBPU9326-85-09 09:14:00 Test Item Value Reference Range Interpretation Comments Monocytes # (test code 0.6 See_Comment [Aut omated message] The = Monocytes #) system which generated this result tra nsmitted reference range : <=0.8. The reference r henry was not used to int erpret this result as normal/abnormal . [facility] HospitalEgjrdxeMEBOYHUDOA4318-14-55 09:14:00 Test Item Value Reference Range Interpretation Comments Eosinophils # (test code 0.4 See_Comment [A utomated message] The = Eosinophils #) system whic h generated this result tra nsmitted reference range : <=0.5. The reference r henry was not used to int erpret this result as normal/abnormal . [facility] HospitalRphwhtlLUXPUZXZSD9395-49-29 09:14:00 Test Item Value Reference Range Interpretation Comments Basophils # (test code 0.1 See_Comment [Aut omated message] The = Basophils #) system which generated this result tra nsmitted reference range : <=0.2. The reference r henry was not used to int erpret this result as normal/abnormal . [facility] HospitalLwwtcazGSJIEYHDXX7197-04-44 09:14:00 Test Item Value Reference Range Interpretation Comments WBC (test code = WBC) 7.8 3.7-10.4 [facility] HospitalJnvgocaJDDMOYXMQH6877-74-03 09:14:00 Test Item Value Reference Range Interpretation Comments RBC (test code = RBC) 5.66 4.20-5.40 [facility] HospitalDgidhevSIFUJLGUXU0531-96-71 09:14:00 Test Item Value Reference Range Interpretation Comments Hgb (test code = Hgb) 14.2 12.0-16.0 [facility] HospitalBdpchnkYGJATBBQCR6067-07-84 09:14:00 Test Item Value Reference Range Interpretation Comments Hgb (test code = Hgb) 14.2 12.0-16.0 [facility] HospitalIextkwtGCCOFDUKMM7987-28-78 09:14:00 Test Item Value Reference Range Interpretation Comments Hct (test code = Hct) 44.8 36.0-48.0 [facility] HospitalNmglpinUJILDDDKCQ2993-03-90 09:14:00 Test Item Value Reference Range Interpretation Comments MCV (test code = MCV) 79.2 80.0-98.0 [facility] HospitalStjeaeiYAMJJTEWHA4960-54-31 09:14:00 Test Item Value Reference Range Interpretation Comments MCH (test code = MCH) 25.0 pg 27.0-31.0 [facility] HospitalMyymkbaULEWNTWZDP8787-95-90 09:14:00 Test Item Value Reference Range Interpretation Comments MCHC (test code = MCHC) 31.6 32.0-36.0 [facility] HospitalErvzmyeDBDGLQZNQI1117-79-46 09:14:00 Test Item Value Reference Range Interpretation Comments RDW (test code = RDW) 17.9 11.5-14.5 [facility] HospitalUsxodfcHWCPBFEUMF0300-73-42 09:14:00 Test Item Value Reference Range Interpretation Comments Platelet (test code = Platelet) 273 133-450 [facility] HospitalWkvwosgUGLSVGKSIZ5792-43-46 09:14:00 Test Item Value Reference Range Interpretation Comments MPV (test code = MPV) 8.3 7.4-10.4 [facility]2019-12-02 09:14:00 Test Item Value Reference Range Interpretation Comments Glucose Lvl (test code = Glucose Lvl) 182 70-99 [facility]2019-12-02 09:14:00 Test Item Value Reference Range Interpretation Comments BUN (test code = BUN) 61 7-22 [facility]2019-12-02 09:14:00 Test Item Value Reference Range Interpretation Comments Creatinine Lvl (test code = Creatinine 7.76 0.50-1.40 Lvl) [facility]2019-12-02 09:14:00 Test Item Value Reference Range Interpretation Comments Sodium Lvl (test code = Sodium Lvl) 137 135-145 [facility]2019-12-02 09:14:00 Test Item Value Reference Range Interpretation Comments Potassium Lvl (test code = Potassium 4.7 3.5-5.1 Lvl) [facility]2019-12-02 09:14:00 Test Item Value Reference Range Interpretation Comments Chloride Lvl (test code = Chloride Lvl) 102 95-109 [facility]2019-12-02 09:14:00 Test Item Value Reference Range Interpretation Comments CO2 (test code = CO2) 20 24-32 [facility]2019-12-02 09:14:00 Test Item Value Reference Range Interpretation Comments AGAP (test code = AGAP) 19.7 10.0-20.0 [facility]2019-12-02 09:14:00 Test Item Value Reference Range Interpretation Comments Calcium Lvl (test code = Calcium Lvl) 8.6 8.5-10.5 [facility]2019-12-02 09:14:00 Test Item Value Reference Range Interpretation Comments Albumin Lvl (test code = Albumin Lvl) 2.6 3.5-5.0 [facility]2019-12-02 09:14:00 Test Item Value Reference Range Interpretation Comments Phosphorus (test code = Phosphorus) 8.1 2.5-4.5 [facility]2019-12-02 09:14:00 Test Item Value Reference Range Interpretation Comments eGFR (test code = eGFR) 5 [facility] HospitalTdlpntyZELRVPUKQM0104-74-50 09:14:00 Test Item Value Reference Range Interpretation Comments Segs (test code = Segs) 60.8 45.0-75.0 [facility] HospitalEscrqqkNQVROFCNWZ0530-51-85 09:14:00 Test Item Value Reference Range Interpretation Comments Lymphocytes (test code = Lymphocytes) 24.6 20.0-40.0 [facility] HospitalXdmcfcsMQPKPCKUJL9983-92-82 09:14:00 Test Item Value Reference Range Interpretation Comments Monocytes (test code = Monocytes) 8.0 2.0-12.0 [facility] HospitalIrhdxwcSGUQDBIIPH5197-68-30 09:14:00 Test Item Value Reference Range Interpretation Comments Eosinophils (test code = Eosinophils) 5.3 <=4.0 [facility] HospitalAajmkojEYQAPFCSHG4772-41-89 09:14:00 Test Item Value Reference Range Interpretation Comments Basophils (test code = Basophils) 1.3 <=1.0 [facility] HospitalXwsolqbZKGDVIHZOL7328-87-49 09:14:00 Test Item Value Reference Range Interpretation Comments Neutrophils # (test code = Neutrophils 4.7 1.5-8.1 #) [facility] HospitalZkssshmBNSPPCFVNN1512-59-17 09:14:00 Test Item Value Reference Range Interpretation Comments Lymphocytes # (test code = Lymphocytes 1.9 1.0-5.5 #) [facility] HospitalVknemlhXXUWXAGIAP5572-11-75 09:14:00 Test Item Value Reference Range Interpretation Comments Monocytes # (test code = Monocytes #) 0.6 <=0.8 [facility] HospitalRseiaccKBGQUERQCX9279-74-28 09:14:00 Test Item Value Reference Range Interpretation Comments Eosinophils # (test code = Eosinophils 0.4 <=0.5 #) [facility] HospitalEtmdabeFUQPZGEOMR7688-12-20 09:14:00 Test Item Value Reference Range Interpretation Comments Basophils # (test code = Basophils #) 0.1 <=0.2 [facility] HospitalTsirwzlIHAKCFUGCN9095-92-43 09:14:00 Test Item Value Reference Range Interpretation Comments WBC (test code = WBC) 7.8 3.7-10.4 [facility] HospitalPmunamrSUYCUCEYSF5383-29-37 09:14:00 Test Item Value Reference Range Interpretation Comments RBC (test code = RBC) 5.66 4.20-5.40 [facility]2019-12-01 09:51:00 Test Item Value Reference Range Interpretation Comments Glucose Lvl (test code = Glucose Lvl) 109 70-99 [facility]2019-12-01 09:51:00 Test Item Value Reference Range Interpretation Comments BUN (test code = BUN) 41 06-15 [facility]2019-12-01 09:51:00 Test Item Value Reference Range Interpretation Comments Creatinine Lvl (test code = Creatinine 6.29 0.50-1.40 Lvl) [facility]2019-12-01 09:51:00 Test Item Value Reference Range Interpretation Comments Sodium Lvl (test code = Sodium Lvl) 139 135-145 [facility]2019-12-01 09:51:00 Test Item Value Reference Range Interpretation Comments Potassium Lvl (test code = Potassium 5.2 3.5-5.1 Lvl) [facility]2019-12-01 09:51:00 Test Item Value Reference Range Interpretation Comments Chloride Lvl (test code = Chloride Lvl) 105 95-109 [facility]2019-12-01 09:51:00 Test Item Value Reference Range Interpretation Comments Glucose Lvl (test code = Glucose Lvl) 109 70-99 [facility]2019-12-01 09:51:00 Test Item Value Reference Range Interpretation Comments CO2 (test code = CO2) 22 24-32 [facility]2019-12-01 09:51:00 Test Item Value Reference Range Interpretation Comments BUN (test code = BUN) 41 7- [facility]2019-12-01 09:51:00 Test Item Value Reference Range Interpretation Comments Creatinine Lvl (test code = Creatinine 6.29 0.50-1.40 Lvl) [facility]2019-12-01 09:51:00 Test Item Value Reference Range Interpretation Comments Sodium Lvl (test code = Sodium Lvl) 139 135-145 [facility]2019-12-01 09:51:00 Test Item Value Reference Range Interpretation Comments Potassium Lvl (test code = Potassium 5.2 3.5-5.1 Lvl) [facility]2019-12-01 09:51:00 Test Item Value Reference Range Interpretation Comments Chloride Lvl (test code = Chloride Lvl) 105 95-109 [facility]2019-12-01 09:51:00 Test Item Value Reference Range Interpretation Comments CO2 (test code = CO2) 22 24-32 [facility]2019-12-01 09:51:00 Test Item Value Reference Range Interpretation Comments AGAP (test code = AGAP) 17.2 10.0-20.0 [facility]2019-12-01 09:51:00 Test Item Value Reference Range Interpretation Comments Calcium Lvl (test code = Calcium Lvl) 8.7 8.5-10.5 [facility]2019-12-01 09:51:00 Test Item Value Reference Range Interpretation Comments Albumin Lvl (test code = Albumin Lvl) 2.6 3.5-5.0 [facility]2019-12-01 09:51:00 Test Item Value Reference Range Interpretation Comments Phosphorus (test code = Phosphorus) 6.8 2.5-4.5 [facility]2019-12-01 09:51:00 Test Item Value Reference Range Interpretation Comments AGAP (test code = AGAP) 17.2 10.0-20.0 [facility]2019-12-01 09:51:00 Test Item Value Reference Range Interpretation Comments eGFR (test code = eGFR) 7 [facility] HospitalTotnjjcEFIPARCVME4967-19-39 09:51:00 Test Item Value Reference Range Interpretation Comments WBC (test code = WBC) 8.8 3.7-10.4 [facility] HospitalDionrlsLMUUEZTREO6262-68-92 09:51:00 Test Item Value Reference Range Interpretation Comments RBC (test code = RBC) 5.60 4.20-5.40 [facility] HospitalDkbejhzNHGJRQZFPE7802-02-91 09:51:00 Test Item Value Reference Range Interpretation Comments Hgb (test code = Hgb) 14.2 12.0-16.0 [facility] HospitalZfwmsxiRWIMUHJZVE5764-87-35 09:51:00 Test Item Value Reference Range Interpretation Comments Hct (test code = Hct) 44.6 36.0-48.0 [facility] HospitalUecsuneUJIJPPGROK4497-51-80 09:51:00 Test Item Value Reference Range Interpretation Comments MCV (test code = MCV) 79.6 80.0-98.0 [facility] HospitalHkraapfFPKXHNHTBP1313-59-93 09:51:00 Test Item Value Reference Range Interpretation Comments MCH (test code = MCH) 25.3 pg 27.0-31.0 [facility] HospitalUfolpqcDBUQDPTNEI6172-84-09 09:51:00 Test Item Value Reference Range Interpretation Comments MCHC (test code = MCHC) 31.8 32.0-36.0 [facility] HospitalWqiyawlRTNJQZGMVB6544-30-23 09:51:00 Test Item Value Reference Range Interpretation Comments RDW (test code = RDW) 18.1 11.5-14.5 [facility] HospitalBhmvjueZPDZQWLUSR9486-09-26 09:51:00 Test Item Value Reference Range Interpretation Comments Platelet (test code = Platelet) 261 133-450 [facility]2019-12-01 09:51:00 Test Item Value Reference Range Interpretation Comments Calcium Lvl (test code = Calcium Lvl) 8.7 8.5-10.5 [facility] HospitalZchpyecFYQMGVJYCZ5035-85-22 09:51:00 Test Item Value Reference Range Interpretation Comments MPV (test code = MPV) 8.2 7.4-10.4 [facility] HospitalMhxdfztETIKASLMUU4572-48-69 09:51:00 Test Item Value Reference Range Interpretation Comments Segs (test code = Segs) 62.4 45.0-75.0 [facility] HospitalWwtktowJXUBPICQMD9409-85-02 09:51:00 Test Item Value Reference Range Interpretation Comments Lymphocytes (test code = Lymphocytes) 21.0 20.0-40.0 [facility] HospitalEjldmrcSUEGMIFLQF1631-94-58 09:51:00 Test Item Value Reference Range Interpretation Comments Monocytes (test code = Monocytes) 10.8 2.0-12.0 [place] 896749-12-01 09:51:00 Test Item Value Reference Range Interpretation Comments Eosinophils (test code = 4.1 See_Comment [A utomated message] The Eosinophils) system which ge nerated this result tra nsmitted reference range : <=4.0. The reference r henry was not used to int erpret this result as normal/abnormal . [facility] HospitalHcilbmwPVEHBZGAEY8576-62-91 09:51:00 Test Item Value Reference Range Interpretation Comments Basophils (test code = 1.7 See_Comment [Aut omated message] The Basophils) system which ge nerated this result tra nsmitted reference range : <=1.0. The reference r henry was not used to int erpret this result as normal/abnormal . [facility] HospitalAhuoebhLWPCNWCPEP7995-19-34 09:51:00 Test Item Value Reference Range Interpretation Comments Neutrophils # (test code = Neutrophils 5.5 1.5-8.1 #) [facility] HospitalRpvwokyMHIMJUNJZE3541-55-33 09:51:00 Test Item Value Reference Range Interpretation Comments Lymphocytes # (test code = Lymphocytes 1.9 1.0-5.5 #) [facility] HospitalRnlzrirEGQXRLYMCQ3160-40-40 09:51:00 Test Item Value Reference Range Interpretation Comments Monocytes # (test code 1.0 See_Comment [Aut omated message] The = Monocytes #) system which generated this result tra nsmitted reference range : <=0.8. The reference r henry was not used to int erpret this result as normal/abnormal . [facility] HospitalUldlzkuWDZMIPWSXH5708-38-90 09:51:00 Test Item Value Reference Range Interpretation Comments Eosinophils # (test code 0.4 See_Comment [A utomated message] The = Eosinophils #) system whic h generated this result tra nsmitted reference range : <=0.5. The reference r henry was not used to int erpret this result as normal/abnormal . [facility]2019-12-01 09:51:00 Test Item Value Reference Range Interpretation Comments Albumin Lvl (test code = Albumin Lvl) 2.6 3.5-5.0 [facility] HospitalOvujrvbAQQWCJSYVK6453-48-10 09:51:00 Test Item Value Reference Range Interpretation Comments Basophils # (test code 0.2 See_Comment [Aut omated message] The = Basophils #) system which generated this result tra nsmitted reference range : <=0.2. The reference r henry was not used to int erpret this result as normal/abnormal . [facility] EYKTC6370-92-69 09:51:00 Test Item Value Reference Range Interpretation Comments Phosphorus (test code = Phosphorus) 6.8 2.5-4.5 [facility] FYWVQ0517-58-94 09:51:00 Test Item Value Reference Range Interpretation Comments eGFR (test code = eGFR) 7 [facility] HospitalSfscokeIJBHOHKLCA9720-32-09 09:51:00 Test Item Value Reference Range Interpretation Comments WBC (test code = WBC) 8.8 3.7-10.4 [facility] HospitalUhpmgirYGSXVIGIBL0579-63-10 09:51:00 Test Item Value Reference Range Interpretation Comments RBC (test code = RBC) 5.60 4.20-5.40 [facility] HospitalCtjshgbZMGMHWQOOR3156-09-81 09:51:00 Test Item Value Reference Range Interpretation Comments Hgb (test code = Hgb) 14.2 12.0-16.0 [facility] HospitalYglhkntHJYWTHDQCI6037-04-68 09:51:00 Test Item Value Reference Range Interpretation Comments Hct (test code = Hct) 44.6 36.0-48.0 [facility] HospitalHvtopnyQGYVSQAGNO4975-41-41 09:51:00 Test Item Value Reference Range Interpretation Comments MCV (test code = MCV) 79.6 80.0-98.0 [facility] HospitalRvhdfhrAJLFFCWQTZ9040-69-11 09:51:00 Test Item Value Reference Range Interpretation Comments MCH (test code = MCH) 25.3 pg 27.0-31.0 [facility] HospitalHimjdasOHCNISXYYO3140-14-52 09:51:00 Test Item Value Reference Range Interpretation Comments MCHC (test code = MCHC) 31.8 32.0-36.0 [facility] HospitalRafzenpBYQUVYJSPO0529-06-36 09:51:00 Test Item Value Reference Range Interpretation Comments RDW (test code = RDW) 18.1 11.5-14.5 [facility] HospitalKswvdukMHJINHNKBY7078-02-33 09:51:00 Test Item Value Reference Range Interpretation Comments Platelet (test code = Platelet) 261 133-450 [facility] HospitalGyadguhDNXGZOEVNN0210-03-97 09:51:00 Test Item Value Reference Range Interpretation Comments MPV (test code = MPV) 8.2 7.4-10.4 [facility] HospitalTacppodSAJYBPULMK4437-90-70 09:51:00 Test Item Value Reference Range Interpretation Comments Segs (test code = Segs) 62.4 45.0-75.0 [facility] HospitalDycedxpJNQTFJGUKF6407-40-86 09:51:00 Test Item Value Reference Range Interpretation Comments Lymphocytes (test code = Lymphocytes) 21.0 20.0-40.0 [facility] HospitalPayzfzuCSVLFFOUUP5677-67-90 09:51:00 Test Item Value Reference Range Interpretation Comments Monocytes (test code = Monocytes) 10.8 2.0-12.0 [facility] HospitalTczwzjmMFYRGQNCYS5128-34-66 09:51:00 Test Item Value Reference Range Interpretation Comments Eosinophils (test code = 4.1 See_Comment [A utomated message] The Eosinophils) system which nerated this result tra nsmitted reference range : <=4.0. The reference r henry was not used to int erpret this result as normal/abnormal . [facility] HospitalLbldxpzBSBQWMGLTB8477-13-22 09:51:00 Test Item Value Reference Range Interpretation Comments Basophils (test code = 1.7 See_Comment [Aut omated message] The Basophils) system which ge nerated this result tra nsmitted reference range : <=1.0. The reference r henry was not used to int erpret this result as normal/abnormal . [facility]2019-12-01 09:51:00 Test Item Value Reference Range Interpretation Comments Glucose Lvl (test code = Glucose Lvl) 109 70-99 [facility]2019-12-01 09:51:00 Test Item Value Reference Range Interpretation Comments BUN (test code = BUN) 41 7-22 [facility]2019-12-01 09:51:00 Test Item Value Reference Range Interpretation Comments Creatinine Lvl (test code = Creatinine 6.29 0.50-1.40 Lvl) [facility]2019-12-01 09:51:00 Test Item Value Reference Range Interpretation Comments Sodium Lvl (test code = Sodium Lvl) 139 135-145 [facility]2019-12-01 09:51:00 Test Item Value Reference Range Interpretation Comments Potassium Lvl (test code = Potassium 5.2 3.5-5.1 Lvl) [facility]2019-12-01 09:51:00 Test Item Value Reference Range Interpretation Comments Chloride Lvl (test code = Chloride Lvl) 105 95-109 [facility]2019-12-01 09:51:00 Test Item Value Reference Range Interpretation Comments CO2 (test code = CO2) 22 24-32 [facility]2019-12-01 09:51:00 Test Item Value Reference Range Interpretation Comments AGAP (test code = AGAP) 17.2 10.0-20.0 [facility]2019-12-01 09:51:00 Test Item Value Reference Range Interpretation Comments Calcium Lvl (test code = Calcium Lvl) 8.7 8.5-10.5 [facility]2019-12-01 09:51:00 Test Item Value Reference Range Interpretation Comments Albumin Lvl (test code = Albumin Lvl) 2.6 3.5-5.0 [facility]vhhwwmGVPOXYZPKK0575-55-34 09:51:00 Test Item Value Reference Range Interpretation Comments Neutrophils # (test code = Neutrophils 5.5 1.5-8.1 #) [facility]2019-12-01 09:51:00 Test Item Value Reference Range Interpretation Comments Phosphorus (test code = Phosphorus) 6.8 2.5-4.5 [facility]2019-12-01 09:51:00 Test Item Value Reference Range Interpretation Comments eGFR (test code = eGFR) 7 [facility]LxyvomtWSWQHQTKPH8866-11-12 09:51:00 Test Item Value Reference Range Interpretation Comments WBC (test code = WBC) 8.8 3.7-10.4 [facility] HospitalVrbuboyCWTVTEDTSP0294-51-94 09:51:00 Test Item Value Reference Range Interpretation Comments RBC (test code = RBC) 5.60 4.20-5.40 [facility] HospitalMphibgkURPYJAETAP4034-39-81 09:51:00 Test Item Value Reference Range Interpretation Comments Hgb (test code = Hgb) 14.2 12.0-16.0 [facility] HospitalXgywoxyDCESBIXJPW1116-39-71 09:51:00 Test Item Value Reference Range Interpretation Comments Hct (test code = Hct) 44.6 36.0-48.0 [place] 896749-12-01 09:51:00 Test Item Value Reference Range Interpretation Comments MCV (test code = MCV) 79.6 80.0-98.0 [facility] HospitalNxxvoxuJHAWORVUCI7536-42-14 09:51:00 Test Item Value Reference Range Interpretation Comments MCH (test code = MCH) 25.3 pg 27.0-31.0 [facility] HospitalWiodfcyBGMWFXETMD2383-17-97 09:51:00 Test Item Value Reference Range Interpretation Comments MCHC (test code = MCHC) 31.8 32.0-36.0 [facility] HospitalEpwzvehHZSUNDJKMO8725-01-98 09:51:00 Test Item Value Reference Range Interpretation Comments RDW (test code = RDW) 18.1 11.5-14.5 [facility] HospitalMyqwsqoYQKTOCAJYU0878-82-70 09:51:00 Test Item Value Reference Range Interpretation Comments Lymphocytes # (test code = Lymphocytes 1.9 1.0-5.5 #) [facility] HospitalAtgoqfxHYEZWKTDKQ1793-32-19 09:51:00 Test Item Value Reference Range Interpretation Comments Platelet (test code = Platelet) 261 133-450 [facility] HospitalRealjrtCLSLBNWPYP9457-72-75 09:51:00 Test Item Value Reference Range Interpretation Comments MPV (test code = MPV) 8.2 7.4-10.4 [facility] HospitalCaymgokOGKFSWHQGQ6896-34-48 09:51:00 Test Item Value Reference Range Interpretation Comments Segs (test code = Segs) 62.4 45.0-75.0 [facility] HospitalIntypmhDAMZZSSYFD3684-81-60 09:51:00 Test Item Value Reference Range Interpretation Comments Lymphocytes (test code = Lymphocytes) 21.0 20.0-40.0 [facility] HospitalWtrepfzIPVIOPHQSP4595-67-18 09:51:00 Test Item Value Reference Range Interpretation Comments Monocytes (test code = Monocytes) 10.8 2.0-12.0 [facility] HospitalExprtqdRJSHPUFAKF6621-32-80 09:51:00 Test Item Value Reference Range Interpretation Comments Eosinophils (test code = 4.1 See_Comment [A utomated message] The Eosinophils) system which ge nerated this result tra nsmitted reference range : <=4.0. The reference r henry was not used to int erpret this result as normal/abnormal . [facility] HospitalCdrejvxALKNKQSTEB8666-52-81 09:51:00 Test Item Value Reference Range Interpretation Comments Basophils (test code = 1.7 See_Comment [Aut omated message] The Basophils) system which ge nerated this result tra nsmitted reference range : <=1.0. The reference r henry was not used to int erpret this result as normal/abnormal . [facility] HospitalPnpisrwCNXVRSTNWF8337-23-00 09:51:00 Test Item Value Reference Range Interpretation Comments Neutrophils # (test code = Neutrophils 5.5 1.5-8.1 #) [facility] HospitalWwcvhyeZTDCBEUYAD5482-85-47 09:51:00 Test Item Value Reference Range Interpretation Comments Lymphocytes # (test code = Lymphocytes 1.9 1.0-5.5 #) [facility] HospitalUtfxpvtLASKAPUMXN0946-32-96 09:51:00 Test Item Value Reference Range Interpretation Comments Monocytes # (test code 1.0 See_Comment [Aut omated message] The = Monocytes #) system which generated this result tra nsmitted reference range : <=0.8. The reference r henry was not used to int erpret this result as normal/abnormal . [facility] HospitalVnvvwgrBMEWVNRPYK6993-73-34 09:51:00 Test Item Value Reference Range Interpretation Comments Monocytes # (test code 1.0 See_Comment [Aut omated message] The = Monocytes #) system which generated this result tra nsmitted reference range : <=0.8. The reference r henry was not used to int erpret this result as normal/abnormal . [facility] HospitalAaujbfoNNSLAKLGIY9654-70-69 09:51:00 Test Item Value Reference Range Interpretation Comments Eosinophils # (test code 0.4 See_Comment [A utomated message] The = Eosinophils #) system [employer] generated this result tra nsmitted reference range : <=0.5. The reference r henry was not used to int erpret this result as normal/abnormal . [facility] HospitalMbteyrsJTYPZTZXYR5514-69-71 09:51:00 Test Item Value Reference Range Interpretation Comments Basophils # (test code 0.2 See_Comment [Aut omated message] The = Basophils #) system which generated this result tra nsmitted reference range : <=0.2. The reference r henry was not used to int erpret this result as normal/abnormal . [facility] HospitalFwddguwTZSOJNHETK1119-74-70 09:51:00 Test Item Value Reference Range Interpretation Comments Eosinophils # (test code 0.4 See_Comment [A utomated message] The = Eosinophils #) system ic h generated this result tra nsmitted reference range : <=0.5. The reference r hnery was not used to int erpret this result as normal/abnormal . [facility] HospitalUmnvdxzUVHTSMOCYP2697-38-41 09:51:00 Test Item Value Reference Range Interpretation Comments Basophils # (test code 0.2 See_Comment [Aut omated message] The = Basophils #) system which generated this result tra nsmitted reference range : <=0.2. The reference r henry was not used to int erpret this result as normal/abnormal . [facility]2019-12-01 09:51:00 Test Item Value Reference Range Interpretation Comments Glucose Lvl (test code = Glucose Lvl) 109 70-99 [facility]2019-12-01 09:51:00 Test Item Value Reference Range Interpretation Comments BUN (test code = BUN) 41 7-22 [facility]2019-12-01 09:51:00 Test Item Value Reference Range Interpretation Comments Creatinine Lvl (test code = Creatinine 6.29 0.50-1.40 Lvl) [facility]2019-12-01 09:51:00 Test Item Value Reference Range Interpretation Comments Sodium Lvl (test code = Sodium Lvl) 139 135-145 [facility]2019-12-01 09:51:00 Test Item Value Reference Range Interpretation Comments Potassium Lvl (test code = Potassium 5.2 3.5-5.1 Lvl) [facility]2019-12-01 09:51:00 Test Item Value Reference Range Interpretation Comments Chloride Lvl (test code = Chloride Lvl) 105 95-109 [facility]2019-12-01 09:51:00 Test Item Value Reference Range Interpretation Comments CO2 (test code = CO2) 22 24-32 [facility]2019-12-01 09:51:00 Test Item Value Reference Range Interpretation Comments AGAP (test code = AGAP) 17.2 10.0-20.0 [facility]2019-12-01 09:51:00 Test Item Value Reference Range Interpretation Comments Calcium Lvl (test code = Calcium Lvl) 8.7 8.5-10.5 [facility]2019-12-01 09:51:00 Test Item Value Reference Range Interpretation Comments Albumin Lvl (test code = Albumin Lvl) 2.6 3.5-5.0 [facility]2019-12-01 09:51:00 Test Item Value Reference Range Interpretation Comments Phosphorus (test code = Phosphorus) 6.8 2.5-4.5 [facility]2019-12-01 09:51:00 Test Item Value Reference Range Interpretation Comments eGFR (test code = eGFR) 7 [facility] HospitalCkquujuUUKIYTSCOI8495-63-48 09:51:00 Test Item Value Reference Range Interpretation Comments WBC (test code = WBC) 8.8 3.7-10.4 [facility] HospitalBhdgebqHJWAZLCCLD7270-95-05 09:51:00 Test Item Value Reference Range Interpretation Comments RBC (test code = RBC) 5.60 4.20-5.40 [facility] HospitalYkzrsbrORWVXRJOCP1685-77-41 09:51:00 Test Item Value Reference Range Interpretation Comments Hgb (test code = Hgb) 14.2 12.0-16.0 [facility] HospitalQqadflcBYAQLDPKJN6353-38-15 09:51:00 Test Item Value Reference Range Interpretation Comments Hct (test code = Hct) 44.6 36.0-48.0 [facility] HospitalGeqccgcPLQFXAKRQP5868-03-31 09:51:00 Test Item Value Reference Range Interpretation Comments MCV (test code = MCV) 79.6 80.0-98.0 [facility] HospitalKmdbjflPOYDVVVBFB5985-26-10 09:51:00 Test Item Value Reference Range Interpretation Comments MCH (test code = MCH) 25.3 pg 27.0-31.0 [facility] HospitalYtdzmwmTWWBYXIRMJ3920-91-02 09:51:00 Test Item Value Reference Range Interpretation Comments MCHC (test code = MCHC) 31.8 32.0-36.0 [facility] HospitalFiakcthRVYSOAJCLI5057-92-32 09:51:00 Test Item Value Reference Range Interpretation Comments RDW (test code = RDW) 18.1 11.5-14.5 [facility] HospitalHyejorxAQWFXBXNVO5113-53-45 09:51:00 Test Item Value Reference Range Interpretation Comments Platelet (test code = Platelet) 261 133-450 [facility] HospitalGupwxjcKCIMSWNYCQ7100-12-29 09:51:00 Test Item Value Reference Range Interpretation Comments MPV (test code = MPV) 8.2 7.4-10.4 [facility] HospitalYhvkgsnRXXETTTUUS9201-47-01 09:51:00 Test Item Value Reference Range Interpretation Comments Segs (test code = Segs) 62.4 45.0-75.0 [facility] HospitalLmgbtmpFRGBKUMLJO9155-61-60 09:51:00 Test Item Value Reference Range Interpretation Comments Lymphocytes (test code = Lymphocytes) 21.0 20.0-40.0 [facility] HospitalNpbgjtrFCXPIHZUDH9438-86-60 09:51:00 Test Item Value Reference Range Interpretation Comments Monocytes (test code = Monocytes) 10.8 2.0-12.0 [facility] HospitalGomrkicSSGEPWDGRG7798-28-58 09:51:00 Test Item Value Reference Range Interpretation Comments Eosinophils (test code = 4.1 See_Comment [A utomated message] The Eosinophils) system which ge nerated this result tra nsmitted reference range : <=4.0. The reference r henry was not used to int erpret this result as normal/abnormal . [facility] HospitalIulnjveHJHMYAGPKZ5050-96-82 09:51:00 Test Item Value Reference Range Interpretation Comments Basophils (test code = 1.7 See_Comment [Aut omated message] The Basophils) system which ge nerated this result tra nsmitted reference range : <=1.0. The reference r henry was not used to int erpret this result as normal/abnormal . [facility] HospitalLjpokwsULWJVHIUOF5514-95-09 09:51:00 Test Item Value Reference Range Interpretation Comments Neutrophils # (test code = Neutrophils 5.5 1.5-8.1 #) [facility] HospitalQfqkfwmOAVWORAYLW8121-52-49 09:51:00 Test Item Value Reference Range Interpretation Comments Lymphocytes # (test code = Lymphocytes 1.9 1.0-5.5 #) [facility] HospitalLumatfsZEAHGJDKZL0021-31-91 09:51:00 Test Item Value Reference Range Interpretation Comments Monocytes # (test code 1.0 See_Comment [Aut omated message] The = Monocytes #) system which generated this result tra nsmitted reference range : <=0.8. The reference r henry was not used to int erpret this result as normal/abnormal . [facility] HospitalCeqzkssCBGUEGHXVN0847-31-70 09:51:00 Test Item Value Reference Range Interpretation Comments Eosinophils # (test code 0.4 See_Comment [A utomated message] The = Eosinophils #) system whic h generated this result tra nsmitted reference range : <=0.5. The reference r henry was not used to int erpret this result as normal/abnormal . [facility]ee[facility]ikFWYIUMTPCQ1237-13-29 09:51:00 Test Item Value Reference Range Interpretation Comments Basophils # (test code 0.2 See_Comment [Aut omated message] The = Basophils #) system which generated this result tra nsmitted reference range : <=0.2. The reference r henry was not used to int erpret this result as normal/abnormal . [facility]2019-12-01 09:51:00 Test Item Value Reference Range Interpretation Comments Glucose Lvl (test code = Glucose Lvl) 109 70-99 [facility]2019-12-01 09:51:00 Test Item Value Reference Range Interpretation Comments BUN (test code = BUN) 41 7-22 [facility]2019-12-01 09:51:00 Test Item Value Reference Range Interpretation Comments Creatinine Lvl (test code = Creatinine 6.29 0.50-1.40 Lvl) [facility]2019-12-01 09:51:00 Test Item Value Reference Range Interpretation Comments Sodium Lvl (test code = Sodium Lvl) 139 135-145 [facility]2019-12-01 09:51:00 Test Item Value Reference Range Interpretation Comments Potassium Lvl (test code = Potassium 5.2 3.5-5.1 Lvl) [facility]2019-12-01 09:51:00 Test Item Value Reference Range Interpretation Comments Chloride Lvl (test code = Chloride Lvl) 105 95-109 [facility]2019-12-01 09:51:00 Test Item Value Reference Range Interpretation Comments CO2 (test code = CO2) 22 24-32 [facility]2019-12-01 09:51:00 Test Item Value Reference Range Interpretation Comments AGAP (test code = AGAP) 17.2 10.0-20.0 [facility]2019-12-01 09:51:00 Test Item Value Reference Range Interpretation Comments Calcium Lvl (test code = Calcium Lvl) 8.7 8.5-10.5 [facility]2019-12-01 09:51:00 Test Item Value Reference Range Interpretation Comments Albumin Lvl (test code = Albumin Lvl) 2.6 3.5-5.0 [facility]2019-12-01 09:51:00 Test Item Value Reference Range Interpretation Comments Phosphorus (test code = Phosphorus) 6.8 2.5-4.5 [facility] [id number] 09:51:00 Test Item Value Reference Range Interpretation Comments eGFR (test code = eGFR) 7 [facility] HospitalXiowowiJHBNWZYXOS9164-18-67 09:51:00 Test Item Value Reference Range Interpretation Comments WBC (test code = WBC) 8.8 3.7-10.4 [facility] HospitalZwggxijSIONHUAUPI6106-46-60 09:51:00 Test Item Value Reference Range Interpretation Comments RBC (test code = RBC) 5.60 4.20-5.40 [facility] HospitalLwkfljzOMWFDPBPKJ1011-14-44 09:51:00 Test Item Value Reference Range Interpretation Comments Hgb (test code = Hgb) 14.2 12.0-16.0 [facility] HospitalCymtgouHPASLVYSWI5250-96-72 09:51:00 Test Item Value Reference Range Interpretation Comments Hct (test code = Hct) 44.6 36.0-48.0 [facility] HospitalRgfsmqhMJOKFBRZMD7848-29-70 09:51:00 Test Item Value Reference Range Interpretation Comments MCV (test code = MCV) 79.6 80.0-98.0 [facility] HospitalJtqtezeIFIDLINEAU3751-35-45 09:51:00 Test Item Value Reference Range Interpretation Comments MCH (test code = MCH) 25.3 pg 27.0-31.0 [facility] HospitalPynxfhkJHCNKRMKDD6793-31-63 09:51:00 Test Item Value Reference Range Interpretation Comments MCHC (test code = MCHC) 31.8 32.0-36.0 [facility] HospitalRzqileyPTWJTKGVJW0117-19-79 09:51:00 Test Item Value Reference Range Interpretation Comments RDW (test code = RDW) 18.1 11.5-14.5 [facility] HospitalAxaezfgJSHOEPPLKJ7774-14-09 09:51:00 Test Item Value Reference Range Interpretation Comments Platelet (test code = Platelet) 261 133-450 [facility] HospitalKgwzvwwLYFOWCAZFX1996-07-40 09:51:00 Test Item Value Reference Range Interpretation Comments MPV (test code = MPV) 8.2 7.4-10.4 [facility] HospitalGxuwaimLJAQQHBWTI7937-83-40 09:51:00 Test Item Value Reference Range Interpretation Comments Segs (test code = Segs) 62.4 45.0-75.0 [facility] HospitalXbrhkmwKBBQINQLUN8233-88-01 09:51:00 Test Item Value Reference Range Interpretation Comments Lymphocytes (test code = Lymphocytes) 21.0 20.0-40.0 [facility] HospitalVwesfqqJRDVOFCZBM6372-18-46 09:51:00 Test Item Value Reference Range Interpretation Comments Monocytes (test code = Monocytes) 10.8 2.0-12.0 [facility] HospitalGpdutqzCBPBNOIQXW9851-32-36 09:51:00 Test Item Value Reference Range Interpretation Comments Eosinophils (test code = 4.1 See_Comment [A utomated message] The Eosinophils) system which ge nerated this result tra nsmitted reference range : <=4.0. The reference r henry was not used to int erpret this result as normal/abnormal . [facility] HospitalQeebyyfWLQHJGFPXP4566-16-93 09:51:00 Test Item Value Reference Range Interpretation Comments Basophils (test code = 1.7 See_Comment [Aut omated message] The Basophils) system which ge nerated this result tra nsmitted reference range : <=1.0. The reference r henry was not used to int erpret this result as normal/abnormal . [facility] HospitalDzzilknHZYLHMXAAK4870-74-89 09:51:00 Test Item Value Reference Range Interpretation Comments Neutrophils # (test code = Neutrophils 5.5 1.5-8.1 #) [facility] HospitalIeylrsvBKYLDANGYE5535-55-94 09:51:00 Test Item Value Reference Range Interpretation Comments Lymphocytes # (test code = Lymphocytes 1.9 1.0-5.5 #) [facility] HospitalHxsmsrrFHAJOZTGAD9446-76-07 09:51:00 Test Item Value Reference Range Interpretation Comments Monocytes # (test code 1.0 See_Comment [Aut omated message] The = Monocytes #) system which generated this result tra nsmitted reference range : <=0.8. The reference r henry was not used to int erpret this result as normal/abnormal . [facility] HospitalPfdcovuNENZQDZFFH9515-36-44 09:51:00 Test Item Value Reference Range Interpretation Comments Eosinophils # (test code 0.4 See_Comment [A utomated message] The = Eosinophils #) system wh h generated this result tra nsmitted reference range : <=0.5. The reference r henry was not used to int erpret this result as normal/abnormal . [facility] HospitalZpbbigoQICSAKQVPI6927-65-40 09:51:00 Test Item Value Reference Range Interpretation Comments Basophils # (test code 0.2 See_Comment [Aut omated message] The = Basophils #) system which generated this result tra nsmitted reference range : <=0.2. The reference r henry was not used to int erpret this result as normal/abnormal . [facility]2019-12-01 09:51:00 Test Item Value Reference Range Interpretation Comments Glucose Lvl (test code = Glucose Lvl) 109 70-99 [facility]2019-12-01 09:51:00 Test Item Value Reference Range Interpretation Comments BUN (test code = BUN) 41 7-22 [facility]2019-12-01 09:51:00 Test Item Value Reference Range Interpretation Comments Creatinine Lvl (test code = Creatinine 6.29 0.50-1.40 Lvl) [facility]2019-12-01 09:51:00 Test Item Value Reference Range Interpretation Comments Sodium Lvl (test code = Sodium Lvl) 139 135-145 [facility]2019-12-01 09:51:00 Test Item Value Reference Range Interpretation Comments Potassium Lvl (test code = Potassium 5.2 3.5-5.1 Lvl) [facility]2019-12-01 09:51:00 Test Item Value Reference Range Interpretation Comments Chloride Lvl (test code = Chloride Lvl) 105 95-109 [facility]2019-12-01 09:51:00 Test Item Value Reference Range Interpretation Comments CO2 (test code = CO2) 22 24-32 [facility]2019-12-01 09:51:00 Test Item Value Reference Range Interpretation Comments AGAP (test code = AGAP) 17.2 10.0-20.0 [facility]2019-12-01 09:51:00 Test Item Value Reference Range Interpretation Comments Calcium Lvl (test code = Calcium Lvl) 8.7 8.5-10.5 [facility]2019-12-01 09:51:00 Test Item Value Reference Range Interpretation Comments Albumin Lvl (test code = Albumin Lvl) 2.6 3.5-5.0 [facility]2019-12-01 09:51:00 Test Item Value Reference Range Interpretation Comments Phosphorus (test code = Phosphorus) 6.8 2.5-4.5 [id number] 09:51:00 Test Item Value Reference Range Interpretation Comments eGFR (test code = eGFR) 7 [facility] HospitalQbdeuprRZYRKWDTGG6153-87-69 09:51:00 Test Item Value Reference Range Interpretation Comments WBC (test code = WBC) 8.8 3.7-10.4 [facility] HospitalRmkqoarLRGISURNUF2627-57-28 09:51:00 Test Item Value Reference Range Interpretation Comments RBC (test code = RBC) 5.60 4.20-5.40 [facility] HospitalTxormjaCQXPVBXQID5723-47-90 09:51:00 Test Item Value Reference Range Interpretation Comments Hgb (test code = Hgb) 14.2 12.0-16.0 [facility] HospitalPhauavuKFWLAPHOWK4374-80-02 09:51:00 Test Item Value Reference Range Interpretation Comments Hct (test code = Hct) 44.6 36.0-48.0 [facility] HospitalJlpciukLADWYGDAFK9820-68-57 09:51:00 Test Item Value Reference Range Interpretation Comments MCV (test code = MCV) 79.6 80.0-98.0 [facility] HospitalNofrsqtXGZMVBSRJR7973-72-50 09:51:00 Test Item Value Reference Range Interpretation Comments MCH (test code = MCH) 25.3 pg 27.0-31.0 [facility] HospitalUtnbdxzBDNGQSNKSS5489-00-88 09:51:00 Test Item Value Reference Range Interpretation Comments MCHC (test code = MCHC) 31.8 32.0-36.0 [facility] HospitalQnxzlgeLKQZLMJIBA5538-37-41 09:51:00 Test Item Value Reference Range Interpretation Comments RDW (test code = RDW) 18.1 11.5-14.5 [facility] HospitalMpolapqNTLEONFZWQ2741-11-65 09:51:00 Test Item Value Reference Range Interpretation Comments Platelet (test code = Platelet) 261 133-450 [facility]YllarbmHPWSAJFDRR3289-69-56 09:51:00 Test Item Value Reference Range Interpretation Comments MPV (test code = MPV) 8.2 7.4-10.4 [facility] HospitalZcofhbtFSPTSFMNWN8487-34-31 09:51:00 Test Item Value Reference Range Interpretation Comments Segs (test code = Segs) 62.4 45.0-75.0 [facility] HospitalUkkbhzoEAFBGMHQZQ9601-71-43 09:51:00 Test Item Value Reference Range Interpretation Comments Lymphocytes (test code = Lymphocytes) 21.0 20.0-40.0 [facility] HospitalBqgwtklDBIIULCBUE7999-34-99 09:51:00 Test Item Value Reference Range Interpretation Comments Monocytes (test code = Monocytes) 10.8 2.0-12.0 [facility] HospitalSxyrmmdYMNHJJWVZM6924-76-00 09:51:00 Test Item Value Reference Range Interpretation Comments Eosinophils (test code = 4.1 See_Comment [A utomated message] The Eosinophils) system which ge nerated this result tra nsmitted reference range : <=4.0. The reference r henry was not used to int erpret this result as normal/abnormal . [facility] HospitalLnxenpbIDKPDLWUZA9278-95-46 09:51:00 Test Item Value Reference Range Interpretation Comments Basophils (test code = 1.7 See_Comment [Aut omated message] The Basophils) system which ge nerated this result tra nsmitted reference range : <=1.0. The reference r henry was not used to int erpret this result as normal/abnormal . [facility] HospitalFzcluktSAMNBXAJNQ8849-45-44 09:51:00 Test Item Value Reference Range Interpretation Comments Neutrophils # (test code = Neutrophils 5.5 1.5-8.1 #) [facility] HospitalFyyojupVUVQYKZHNG6190-74-19 09:51:00 Test Item Value Reference Range Interpretation Comments Lymphocytes # (test code = Lymphocytes 1.9 1.0-5.5 #) [facility] HospitalSshwpjuCKXKNFTKHN6108-61-29 09:51:00 Test Item Value Reference Range Interpretation Comments Monocytes # (test code 1.0 See_Comment [Aut omated message] The = Monocytes #) system which generated this result tra nsmitted reference range : <=0.8. The reference r henry was not used to int erpret this result as normal/abnormal . [facility] HospitalZouomgtGURMYAVPIY6508-06-30 09:51:00 Test Item Value Reference Range Interpretation Comments Eosinophils # (test code 0.4 See_Comment [A utomated message] The = Eosinophils #) system whic h generated this result tra nsmitted reference range : <=0.5. The reference r henry was not used to int erpret this result as normal/abnormal . [facility] HospitalMjnygxlDJGGWZEQOV8342-06-63 09:51:00 Test Item Value Reference Range Interpretation Comments Basophils # (test code 0.2 See_Comment [Aut omated message] The = Basophils #) system which generated this result tra nsmitted reference range : <=0.2. The reference r henry was not used to int erpret this result as normal/abnormal . [facility]2019-12-01 09:51:00 Test Item Value Reference Range Interpretation Comments Glucose Lvl (test code = Glucose Lvl) 109 70-99 [facility]2019-12-01 09:51:00 Test Item Value Reference Range Interpretation Comments BUN (test code = BUN) 41 7-22 [facility]2019-12-01 09:51:00 Test Item Value Reference Range Interpretation Comments Creatinine Lvl (test code = Creatinine 6.29 0.50-1.40 Lvl) [facility]2019-12-01 09:51:00 Test Item Value Reference Range Interpretation Comments Sodium Lvl (test code = Sodium Lvl) 139 135-145 [facility]2019-12-01 09:51:00 Test Item Value Reference Range Interpretation Comments Potassium Lvl (test code = Potassium 5.2 3.5-5.1 Lvl) [facility]2019-12-01 09:51:00 Test Item Value Reference Range Interpretation Comments Chloride Lvl (test code = Chloride Lvl) 105 95-109 [facility]2019-12-01 09:51:00 Test Item Value Reference Range Interpretation Comments CO2 (test code = CO2) 22 24-32 [facility]2019-12-01 09:51:00 Test Item Value Reference Range Interpretation Comments AGAP (test code = AGAP) 17.2 10.0-20.0 [facility]2019-12-01 09:51:00 Test Item Value Reference Range Interpretation Comments Calcium Lvl (test code = Calcium Lvl) 8.7 8.5-10.5 [facility]2019-12-01 09:51:00 Test Item Value Reference Range Interpretation Comments Albumin Lvl (test code = Albumin Lvl) 2.6 3.5-5.0 [facility]2019-12-01 09:51:00 Test Item Value Reference Range Interpretation Comments Phosphorus (test code = Phosphorus) 6.8 2.5-4.5 [facility]2019-12-01 09:51:00 Test Item Value Reference Range Interpretation Comments eGFR (test code = eGFR) 7 [facility] HospitalTowrhcgVTIGCIFQNX0113-63-76 09:51:00 Test Item Value Reference Range Interpretation Comments WBC (test code = WBC) 8.8 3.7-10.4 [facility] HospitalFqkyafmFHRQZEFGVD7933-21-15 09:51:00 Test Item Value Reference Range Interpretation Comments RBC (test code = RBC) 5.60 4.20-5.40 [facility] HospitalWorxlcnGHLTTXXOLY8435-18-47 09:51:00 Test Item Value Reference Range Interpretation Comments Hgb (test code = Hgb) 14.2 12.0-16.0 [facility] HospitalOlibowgCUFGODGGSN7134-66-34 09:51:00 Test Item Value Reference Range Interpretation Comments Hct (test code = Hct) 44.6 36.0-48.0 [facility] HospitalUxduwshJPHFIJYPYV8436-33-21 09:51:00 Test Item Value Reference Range Interpretation Comments MCV (test code = MCV) 79.6 80.0-98.0 [facility] HospitalAdnhvzfDVCSZQQKAM3094-22-31 09:51:00 Test Item Value Reference Range Interpretation Comments MCH (test code = MCH) 25.3 pg 27.0-31.0 [facility] HospitalWkxhxrlGNRSWYXIHA8943-44-68 09:51:00 Test Item Value Reference Range Interpretation Comments MCHC (test code = MCHC) 31.8 32.0-36.0 [facility] HospitalBvvytphXWDBYOHJMR6368-73-88 09:51:00 Test Item Value Reference Range Interpretation Comments RDW (test code = RDW) 18.1 11.5-14.5 [facility] HospitalRxbvygaJUXPBIHTDS3337-05-76 09:51:00 Test Item Value Reference Range Interpretation Comments Platelet (test code = Platelet) 261 133-450 [facility] HospitalAhgstnlBJXTNCHPBR3200-13-39 09:51:00 Test Item Value Reference Range Interpretation Comments MPV (test code = MPV) 8.2 7.4-10.4 [facility] HospitalJfhetywZFONMFSLQY7787-94-64 09:51:00 Test Item Value Reference Range Interpretation Comments Segs (test code = Segs) 62.4 45.0-75.0 [facility] HospitalNtzwrcoZJCKDLCATS6459-89-28 09:51:00 Test Item Value Reference Range Interpretation Comments Lymphocytes (test code = Lymphocytes) 21.0 20.0-40.0 [facility] HospitalWpkvkvoZKGKAPLMEK6873-12-16 09:51:00 Test Item Value Reference Range Interpretation Comments Monocytes (test code = Monocytes) 10.8 2.0-12.0 [facility] HospitalByspzfgQEHIPBGSBW5963-42-35 09:51:00 Test Item Value Reference Range Interpretation Comments Eosinophils (test code = 4.1 See_Comment [A utomated message] The Eosinophils) system which ge nerated this result tra nsmitted reference range : <=4.0. The reference r henry was not used to int erpret this result as normal/abnormal . [facility] HospitalSixbatcQSAZUBOXHO3935-82-43 09:51:00 Test Item Value Reference Range Interpretation Comments Basophils (test code = 1.7 See_Comment [Aut omated message] The Basophils) system which ge nerated this result tra nsmitted reference range : <=1.0. The reference r henry was not used to int erpret this result as normal/abnormal . [facility] HospitalDsrnswkWKRNURXMWS1625-01-15 09:51:00 Test Item Value Reference Range Interpretation Comments Neutrophils # (test code = Neutrophils 5.5 1.5-8.1 #) [facility] HospitalOaikrmgKTCOPIEWCX1817-40-99 09:51:00 Test Item Value Reference Range Interpretation Comments Lymphocytes # (test code = Lymphocytes 1.9 1.0-5.5 #) [facility] HospitalMmqfaciHUXXAKGHAJ3992-70-06 09:51:00 Test Item Value Reference Range Interpretation Comments Monocytes # (test code 1.0 See_Comment [Aut omated message] The = Monocytes #) system which generated this result tra nsmitted reference range : <=0.8. The reference r henry was not used to int erpret this result as normal/abnormal . [facility] HospitalItqhgzrNEOMXZEVDQ6892-19-85 09:51:00 Test Item Value Reference Range Interpretation Comments Eosinophils # (test code 0.4 See_Comment [A utomated message] The = Eosinophils #) system whic h generated this result tra nsmitted reference range : <=0.5. The reference r henry was not used to int erpret this result as normal/abnormal . [facility] HospitalCcxpaqoCTMTCJWFQT2504-59-04 09:51:00 Test Item Value Reference Range Interpretation Comments Basophils # (test code 0.2 See_Comment [Aut omated message] The = Basophils #) system which generated this result tra nsmitted reference range : <=0.2. The reference r henry was not used to int erpret this result as normal/abnormal . [facility]2019-12-01 09:51:00 Test Item Value Reference Range Interpretation Comments Glucose Lvl (test code = Glucose Lvl) 109 70-99 [facility]2019-12-01 09:51:00 Test Item Value Reference Range Interpretation Comments BUN (test code = BUN) 41 7-22 [facility]2019-12-01 09:51:00 Test Item Value Reference Range Interpretation Comments Creatinine Lvl (test code = Creatinine 6.29 0.50-1.40 Lvl) [facility]2019-12-01 09:51:00 Test Item Value Reference Range Interpretation Comments Sodium Lvl (test code = Sodium Lvl) 139 135-145 [facility]2019-12-01 09:51:00 Test Item Value Reference Range Interpretation Comments Potassium Lvl (test code = Potassium 5.2 3.5-5.1 Lvl) [facility]2019-12-01 09:51:00 Test Item Value Reference Range Interpretation Comments Chloride Lvl (test code = Chloride Lvl) 105 95-109 [facility]2019-12-01 09:51:00 Test Item Value Reference Range Interpretation Comments CO2 (test code = CO2) 22 24-32 [facility]2019-12-01 09:51:00 Test Item Value Reference Range Interpretation Comments AGAP (test code = AGAP) 17.2 10.0-20.0 [facility]2019-12-01 09:51:00 Test Item Value Reference Range Interpretation Comments Calcium Lvl (test code = Calcium Lvl) 8.7 8.5-10.5 [facility]2019-12-01 09:51:00 Test Item Value Reference Range Interpretation Comments Albumin Lvl (test code = Albumin Lvl) 2.6 3.5-5.0 [facility]2019-12-01 09:51:00 Test Item Value Reference Range Interpretation Comments Phosphorus (test code = Phosphorus) 6.8 2.5-4.5 [facility]2019-12-01 09:51:00 Test Item Value Reference Range Interpretation Comments eGFR (test code = eGFR) 7 [facility] HospitalYqzoxhyUBLFWMKTHF5012-14-59 09:51:00 Test Item Value Reference Range Interpretation Comments WBC (test code = WBC) 8.8 3.7-10.4 [facility] HospitalGewusshGEMKRKIFJA6826-96-22 09:51:00 Test Item Value Reference Range Interpretation Comments RBC (test code = RBC) 5.60 4.20-5.40 [facility] HospitalIlgtoriLBZTNILJBH6435-94-74 09:51:00 Test Item Value Reference Range Interpretation Comments Hgb (test code = Hgb) 14.2 12.0-16.0 [facility] HospitalUiciyxsLMALFNUKTH0899-42-85 09:51:00 Test Item Value Reference Range Interpretation Comments Hct (test code = Hct) 44.6 36.0-48.0 [facility] HospitalXvzsmfkDMQLLFKRNQ9269-00-43 09:51:00 Test Item Value Reference Range Interpretation Comments MCV (test code = MCV) 79.6 80.0-98.0 [facility] HospitalKdijlpnGBBFGUVKTA4740-65-56 09:51:00 Test Item Value Reference Range Interpretation Comments MCH (test code = MCH) 25.3 pg 27.0-31.0 [facility] HospitalNgubwoeZWYNODJLJO9463-30-75 09:51:00 Test Item Value Reference Range Interpretation Comments MCHC (test code = MCHC) 31.8 32.0-36.0 [facility] HospitalDeboqtxRNDXTLVCPS4388-35-61 09:51:00 Test Item Value Reference Range Interpretation Comments RDW (test code = RDW) 18.1 11.5-14.5 [facility] HospitalSexqzscXLFSATBRZZ4514-81-58 09:51:00 Test Item Value Reference Range Interpretation Comments Platelet (test code = Platelet) 261 133-450 [facility] HospitalTytduciMSCDKIZFNO6618-44-91 09:51:00 Test Item Value Reference Range Interpretation Comments MPV (test code = MPV) 8.2 7.4-10.4 [facility] HospitalWitftrvEEONUSXBSL5890-60-13 09:51:00 Test Item Value Reference Range Interpretation Comments Segs (test code = Segs) 62.4 45.0-75.0 [facility] HospitalOpjhwxdMKGMAVLHNT0822-46-96 09:51:00 Test Item Value Reference Range Interpretation Comments Lymphocytes (test code = Lymphocytes) 21.0 20.0-40.0 [facility] HospitalGuzmymoXHJJGMQRYT6792-88-10 09:51:00 Test Item Value Reference Range Interpretation Comments Monocytes (test code = Monocytes) 10.8 2.0-12.0 [facility] HospitalUlwnhuqXNWLLRJWAN4274-64-35 09:51:00 Test Item Value Reference Range Interpretation Comments Eosinophils (test code = Eosinophils) 4.1 <=4.0 [facility] HospitalLnenmtzQOIDZUTALS3955-62-87 09:51:00 Test Item Value Reference Range Interpretation Comments Basophils (test code = Basophils) 1.7 <=1.0 [facility] HospitalMdlesekHSZFFRIFQH7348-39-47 09:51:00 Test Item Value Reference Range Interpretation Comments Neutrophils # (test code = Neutrophils 5.5 1.5-8.1 #) [facility] HospitalGwfdtheGGPQTOSLCA7729-61-00 09:51:00 Test Item Value Reference Range Interpretation Comments Lymphocytes # (test code = Lymphocytes 1.9 1.0-5.5 #) [facility] HospitalLpoouiuWFKEZNUSMF0103-17-68 09:51:00 Test Item Value Reference Range Interpretation Comments Monocytes # (test code = Monocytes #) 1.0 <=0.8 [facility] HospitalJryfwflTATOVOCDKI0194-39-98 09:51:00 Test Item Value Reference Range Interpretation Comments Eosinophils # (test code = Eosinophils 0.4 <=0.5 #) [facility] HospitalFajrethMYLPTKTQEX9900-20-15 09:51:00 Test Item Value Reference Range Interpretation Comments Basophils # (test code = Basophils #) 0.2 <=0.2 [facility]2019-12-01 09:51:00 Test Item Value Reference Range Interpretation Comments Glucose Lvl (test code = Glucose Lvl) 109 70-99 [facility]2019-12-01 09:51:00 Test Item Value Reference Range Interpretation Comments BUN (test code = BUN) 41 7-22 [facility]2019-12-01 09:51:00 Test Item Value Reference Range Interpretation Comments Creatinine Lvl (test code = Creatinine 6.29 0.50-1.40 Lvl) [facility]2019-12-01 09:51:00 Test Item Value Reference Range Interpretation Comments Sodium Lvl (test code = Sodium Lvl) 139 135-145 [facility]2019-12-01 09:51:00 Test Item Value Reference Range Interpretation Comments Potassium Lvl (test code = Potassium 5.2 3.5-5.1 Lvl) [facility]2019-12-01 09:51:00 Test Item Value Reference Range Interpretation Comments Chloride Lvl (test code = Chloride Lvl) 105 95-109 [facility]2019-12-01 09:51:00 Test Item Value Reference Range Interpretation Comments CO2 (test code = CO2) 22 24-32 [facility]2019-12-01 09:51:00 Test Item Value Reference Range Interpretation Comments AGAP (test code = AGAP) 17.2 10.0-20.0 [facility]2019-12-01 09:51:00 Test Item Value Reference Range Interpretation Comments Calcium Lvl (test code = Calcium Lvl) 8.7 8.5-10.5 [facility]2019-12-01 09:51:00 Test Item Value Reference Range Interpretation Comments Albumin Lvl (test code = Albumin Lvl) 2.6 3.5-5.0 [facility]2019-12-01 09:51:00 Test Item Value Reference Range Interpretation Comments Phosphorus (test code = Phosphorus) 6.8 2.5-4.5 [facility]2019-12-01 09:51:00 Test Item Value Reference Range Interpretation Comments eGFR (test code = eGFR) 7 [facility] HospitalPyvplvsFSDAVEOQNU5355-14-39 09:51:00 Test Item Value Reference Range Interpretation Comments WBC (test code = WBC) 8.8 3.7-10.4 [facility] HospitalVtawsfrWQPTAPUNZI0389-92-03 09:51:00 Test Item Value Reference Range Interpretation Comments RBC (test code = RBC) 5.60 4.20-5.40 [facility] HospitalZeldccsKLFGZWBQEZ2238-89-71 09:51:00 Test Item Value Reference Range Interpretation Comments Hgb (test code = Hgb) 14.2 12.0-16.0 [facility] HospitalVgtcuoeCKQFFARECM6526-15-88 09:51:00 Test Item Value Reference Range Interpretation Comments Hct (test code = Hct) 44.6 36.0-48.0 [facility] HospitalAfnongdNFTXYFEISU2160-25-59 09:51:00 Test Item Value Reference Range Interpretation Comments MCV (test code = MCV) 79.6 80.0-98.0 [facility] HospitalTsgafksDPJEGIMLNY4158-03-26 09:51:00 Test Item Value Reference Range Interpretation Comments MCH (test code = MCH) 25.3 pg 27.0-31.0 [facility] HospitalEvrxetkLHBOQYMBOB3980-64-20 09:51:00 Test Item Value Reference Range Interpretation Comments MCHC (test code = MCHC) 31.8 32.0-36.0 [facility] HospitalMquwvxtVMPDNOJFNN4188-43-54 09:51:00 Test Item Value Reference Range Interpretation Comments RDW (test code = RDW) 18.1 11.5-14.5 [facility] HospitalDagbadfWWDMANPGCM2803-63-54 09:51:00 Test Item Value Reference Range Interpretation Comments Platelet (test code = Platelet) 261 133-450 [facility] HospitalZzpcnueTJHXJIKICG1673-60-42 09:51:00 Test Item Value Reference Range Interpretation Comments MPV (test code = MPV) 8.2 7.4-10.4 [facility] HospitalPfldbmtEZOGUORXYM6855-43-67 09:51:00 Test Item Value Reference Range Interpretation Comments Segs (test code = Segs) 62.4 45.0-75.0 [facility] HospitalAuwjupgNJOWWGKZWB5441-86-19 09:51:00 Test Item Value Reference Range Interpretation Comments Lymphocytes (test code = Lymphocytes) 21.0 20.0-40.0 [facility] HospitalIgkusfoFCOEQAJLAT1460-56-19 09:51:00 Test Item Value Reference Range Interpretation Comments Monocytes (test code = Monocytes) 10.8 2.0-12.0 [facility] HospitalEdmsaxtAIUFJTVJFK0977-59-45 09:51:00 Test Item Value Reference Range Interpretation Comments Eosinophils (test code = Eosinophils) 4.1 <=4.0 [facility] HospitalHayarznFIJHSYCKYR7874-06-41 09:51:00 Test Item Value Reference Range Interpretation Comments Basophils (test code = Basophils) 1.7 <=1.0 [facility] HospitalRuuvxfuWPMHFLKPEB3765-65-60 09:51:00 Test Item Value Reference Range Interpretation Comments Neutrophils # (test code = Neutrophils 5.5 1.5-8.1 #) [facility] HospitalDtbcddzIUTBRJPFZZ2523-38-05 09:51:00 Test Item Value Reference Range Interpretation Comments Lymphocytes # (test code = Lymphocytes 1.9 1.0-5.5 #) [facility] HospitalFzqthcoLSIAAYZJPH7179-17-56 09:51:00 Test Item Value Reference Range Interpretation Comments Monocytes # (test code = Monocytes #) 1.0 <=0.8 [facility] HospitalRmvwkagYKTNLVXCDL2025-40-02 09:51:00 Test Item Value Reference Range Interpretation Comments Eosinophils # (test code = Eosinophils 0.4 <=0.5 #) [facility] HospitalWqauoudZCOUZUJUKA8901-81-92 09:51:00 Test Item Value Reference Range Interpretation Comments Basophils # (test code = Basophils #) 0.2 <=0.2 [facility]2019-12-01 09:51:00 Test Item Value Reference Range Interpretation Comments Glucose Lvl (test code = Glucose Lvl) 109 70-99 [facility]2019-12-01 09:51:00 Test Item Value Reference Range Interpretation Comments BUN (test code = BUN) 41 7-22 [facility]2019-12-01 09:51:00 Test Item Value Reference Range Interpretation Comments Creatinine Lvl (test code = Creatinine 6.29 0.50-1.40 Lvl) [facility]2019-12-01 09:51:00 Test Item Value Reference Range Interpretation Comments Sodium Lvl (test code = Sodium Lvl) 139 135-145 [facility]2019-12-01 09:51:00 Test Item Value Reference Range Interpretation Comments Potassium Lvl (test code = Potassium 5.2 3.5-5.1 Lvl) [facility]2019-12-01 09:51:00 Test Item Value Reference Range Interpretation Comments Chloride Lvl (test code = Chloride Lvl) 105 95-109 [facility]2019-12-01 09:51:00 Test Item Value Reference Range Interpretation Comments CO2 (test code = CO2) 22 24-32 [facility]2019-12-01 09:51:00 Test Item Value Reference Range Interpretation Comments AGAP (test code = AGAP) 17.2 10.0-20.0 [facility]2019-12-01 09:51:00 Test Item Value Reference Range Interpretation Comments Calcium Lvl (test code = Calcium Lvl) 8.7 8.5-10.5 [facility]2019-12-01 09:51:00 Test Item Value Reference Range Interpretation Comments Albumin Lvl (test code = Albumin Lvl) 2.6 3.5-5.0 [facility]2019-12-01 09:51:00 Test Item Value Reference Range Interpretation Comments Phosphorus (test code = Phosphorus) 6.8 2.5-4.5 [facility]2019-12-01 09:51:00 Test Item Value Reference Range Interpretation Comments eGFR (test code = eGFR) 7 [facility] HospitalXhvvlapERSLGUUGYY2235-06-08 09:51:00 Test Item Value Reference Range Interpretation Comments WBC (test code = WBC) 8.8 3.7-10.4 [facility] HospitalRjluhiqVWTXYZKFKT7685-06-82 09:51:00 Test Item Value Reference Range Interpretation Comments RBC (test code = RBC) 5.60 4.20-5.40 [facility] HospitalKkzdmzgTXEGQRKIAO7757-88-60 09:51:00 Test Item Value Reference Range Interpretation Comments Hgb (test code = Hgb) 14.2 12.0-16.0 [facility] HospitalMkhbjfiLUCVAJLGSE2225-80-54 09:51:00 Test Item Value Reference Range Interpretation Comments Hct (test code = Hct) 44.6 36.0-48.0 [facility] HospitalGpwzhiuAHZOIVLTHX6702-34-46 09:51:00 Test Item Value Reference Range Interpretation Comments MCV (test code = MCV) 79.6 80.0-98.0 [facility] HospitalXeiqoiuTYOQWKITRO8228-51-14 09:51:00 Test Item Value Reference Range Interpretation Comments MCH (test code = MCH) 25.3 pg 27.0-31.0 [facility] HospitalLjwjjjvTMSWGVLDZU7368-05-82 09:51:00 Test Item Value Reference Range Interpretation Comments MCHC (test code = MCHC) 31.8 32.0-36.0 [facility] HospitalVcskculYFSXMGXLWU5492-08-23 09:51:00 Test Item Value Reference Range Interpretation Comments RDW (test code = RDW) 18.1 11.5-14.5 [facility] HospitalMltkwruWJLGEHFRDR7205-58-90 09:51:00 Test Item Value Reference Range Interpretation Comments Platelet (test code = Platelet) 261 133-450 [facility] HospitalObgtggfOWYKSUKVCF8610-42-41 09:51:00 Test Item Value Reference Range Interpretation Comments MPV (test code = MPV) 8.2 7.4-10.4 [facility] [facility]GRE2047-41-96 09:51:00 Test Item Value Reference Range Interpretation Comments Segs (test code = Segs) 62.4 45.0-75.0 [facility]IlsojzaFZYTYVBMDB6553-24-44 09:51:00 Test Item Value Reference Range Interpretation Comments Lymphocytes (test code = Lymphocytes) 21.0 20.0-40.0 [facility] HospitalKgmyrsoQFMYNHCUIP4961-04-03 09:51:00 Test Item Value Reference Range Interpretation Comments Monocytes (test code = Monocytes) 10.8 2.0-12.0 [facility] HospitalIzdqoahDEGHMUTQFD4399-63-22 09:51:00 Test Item Value Reference Range Interpretation Comments Eosinophils (test code = Eosinophils) 4.1 <=4.0 [facility] HospitalEeypfapAPXHDMNTJF3502-49-02 09:51:00 Test Item Value Reference Range Interpretation Comments Basophils (test code = Basophils) 1.7 <=1.0 [facility] HospitalCyxzraeRKGKPSFGDZ7240-52-48 09:51:00 Test Item Value Reference Range Interpretation Comments Neutrophils # (test code = Neutrophils 5.5 1.5-8.1 #) [facility] HospitalDyjxglwQCQVZXAWSR0154-02-68 09:51:00 Test Item Value Reference Range Interpretation Comments Lymphocytes # (test code = Lymphocytes 1.9 1.0-5.5 #) [facility] HospitalRudyrtfDWKGXQCPSA0826-57-28 09:51:00 Test Item Value Reference Range Interpretation Comments Monocytes # (test code = Monocytes #) 1.0 <=0.8 [facility] HospitalZvpalwpJDTXQYQKFR2218-88-57 09:51:00 Test Item Value Reference Range Interpretation Comments Eosinophils # (test code = Eosinophils 0.4 <=0.5 #) [facility] HospitalOkoxrrvQXZFUQXAQB8283-22-31 09:51:00 Test Item Value Reference Range Interpretation Comments Basophils # (test code = Basophils #) 0.2 <=0.2 [facility]2019-12-01 09:51:00 Test Item Value Reference Range Interpretation Comments Glucose Lvl (test code = Glucose Lvl) 109 70-99 [facility]2019-12-01 09:51:00 Test Item Value Reference Range Interpretation Comments BUN (test code = BUN) 41 7-22 [facility]2019-12-01 09:51:00 Test Item Value Reference Range Interpretation Comments Creatinine Lvl (test code = Creatinine 6.29 0.50-1.40 Lvl) [facility]2019-12-01 09:51:00 Test Item Value Reference Range Interpretation Comments Sodium Lvl (test code = Sodium Lvl) 139 135-145 [facility]2019-12-01 09:51:00 Test Item Value Reference Range Interpretation Comments Potassium Lvl (test code = Potassium 5.2 3.5-5.1 Lvl) [facility]2019-12-01 09:51:00 Test Item Value Reference Range Interpretation Comments Chloride Lvl (test code = Chloride Lvl) 105 95-109 [facility]2019-12-01 09:51:00 Test Item Value Reference Range Interpretation Comments CO2 (test code = CO2) 22 24-32 [facility]2019-12-01 09:51:00 Test Item Value Reference Range Interpretation Comments AGAP (test code = AGAP) 17.2 10.0-20.0 [facility]2019-12-01 09:51:00 Test Item Value Reference Range Interpretation Comments Calcium Lvl (test code = Calcium Lvl) 8.7 8.5-10.5 [facility]2019-12-01 09:51:00 Test Item Value Reference Range Interpretation Comments Albumin Lvl (test code = Albumin Lvl) 2.6 3.5-5.0 [facility]2019-12-01 09:51:00 Test Item Value Reference Range Interpretation Comments Phosphorus (test code = Phosphorus) 6.8 2.5-4.5 [facility]2019-12-01 09:51:00 Test Item Value Reference Range Interpretation Comments eGFR (test code = eGFR) 7 [facility] HospitalRftsxpxEBQCPECFQH8138-82-83 09:51:00 Test Item Value Reference Range Interpretation Comments WBC (test code = WBC) 8.8 3.7-10.4 [facility] HospitalHeyfojmXSORIMMYBV9444-73-01 09:51:00 Test Item Value Reference Range Interpretation Comments RBC (test code = RBC) 5.60 4.20-5.40 [facility] HospitalKiftpaoMODUGMCCUD9955-38-19 09:51:00 Test Item Value Reference Range Interpretation Comments Hgb (test code = Hgb) 14.2 12.0-16.0 [facility] HospitalLblhwuiQXGFFWDJCS9975-31-08 09:51:00 Test Item Value Reference Range Interpretation Comments Hct (test code = Hct) 44.6 36.0-48.0 [facility] HospitalSiauijvXRHYAFZVQT5959-16-85 09:51:00 Test Item Value Reference Range Interpretation Comments MCV (test code = MCV) 79.6 80.0-98.0 [facility] HospitalPmlgbdgGJIWCZXRIY3368-62-19 09:51:00 Test Item Value Reference Range Interpretation Comments MCH (test code = MCH) 25.3 pg 27.0-31.0 [facility] HospitalSlwmkfhSERSXQNTGO5048-90-24 09:51:00 Test Item Value Reference Range Interpretation Comments MCHC (test code = MCHC) 31.8 32.0-36.0 [facility] HospitalVarueaqYAFMHSSCPA9972-89-95 09:51:00 Test Item Value Reference Range Interpretation Comments RDW (test code = RDW) 18.1 11.5-14.5 [facility] HospitalXmumfdeIQPFDKXHWT0855-27-25 09:51:00 Test Item Value Reference Range Interpretation Comments Platelet (test code = Platelet) 261 133-450 [facility] HospitalHqhgkruENPBUDCKXM8301-87-81 09:51:00 Test Item Value Reference Range Interpretation Comments MPV (test code = MPV) 8.2 7.4-10.4 [facility] HospitalXqbefdcKWUYMIABQJ7698-79-75 09:51:00 Test Item Value Reference Range Interpretation Comments Segs (test code = Segs) 62.4 45.0-75.0 [facility] HospitalIsfzwcnBDNDNLRLLY0822-49-83 09:51:00 Test Item Value Reference Range Interpretation Comments Lymphocytes (test code = Lymphocytes) 21.0 20.0-40.0 [facility] HospitalXtlgjwbARGBYAPJCV1691-63-45 09:51:00 Test Item Value Reference Range Interpretation Comments Monocytes (test code = Monocytes) 10.8 2.0-12.0 [facility] HospitalRsarvopCHHWLBHHLG2846-63-87 09:51:00 Test Item Value Reference Range Interpretation Comments Eosinophils (test code = Eosinophils) 4.1 <=4.0 [facility] HospitalPznascmANILZYRMCV2235-08-06 09:51:00 Test Item Value Reference Range Interpretation Comments Basophils (test code = Basophils) 1.7 <=1.0 [facility] HospitalQiahlhxVVZGXCFVZS7982-45-58 09:51:00 Test Item Value Reference Range Interpretation Comments Neutrophils # (test code = Neutrophils 5.5 1.5-8.1 #) [facility] HospitalJjfwjtnYUHWCLTGEX5619-92-12 09:51:00 Test Item Value Reference Range Interpretation Comments Lymphocytes # (test code = Lymphocytes 1.9 1.0-5.5 #) [facility] HospitalAqkgvpeIZHKJOBYZV8136-69-96 09:51:00 Test Item Value Reference Range Interpretation Comments Monocytes # (test code = Monocytes #) 1.0 <=0.8 [facility] HospitalCkfmoxcSSMGCGHEOH0328-82-50 09:51:00 Test Item Value Reference Range Interpretation Comments Eosinophils # (test code = Eosinophils 0.4 <=0.5 #) [facility] HospitalZrjebeuGUTYHQVMXH0845-79-86 09:51:00 Test Item Value Reference Range Interpretation Comments Basophils # (test code = Basophils #) 0.2 <=0.2 [facility]2019-12-01 09:51:00 Test Item Value Reference Range Interpretation Comments Glucose Lvl (test code = Glucose Lvl) 109 70-99 [facility]2019-12-01 09:51:00 Test Item Value Reference Range Interpretation Comments BUN (test code = BUN) 41 7-22 [facility]2019-12-01 09:51:00 Test Item Value Reference Range Interpretation Comments Creatinine Lvl (test code = Creatinine 6.29 0.50-1.40 Lvl) [facility]2019-12-01 09:51:00 Test Item Value Reference Range Interpretation Comments Sodium Lvl (test code = Sodium Lvl) 139 135-145 [facility]2019-12-01 09:51:00 Test Item Value Reference Range Interpretation Comments Potassium Lvl (test code = Potassium 5.2 3.5-5.1 Lvl) [facility]2019-12-01 09:51:00 Test Item Value Reference Range Interpretation Comments Chloride Lvl (test code = Chloride Lvl) 105 95-109 [facility]2019-12-01 09:51:00 Test Item Value Reference Range Interpretation Comments CO2 (test code = CO2) 22 24-32 [facility]2019-12-01 09:51:00 Test Item Value Reference Range Interpretation Comments AGAP (test code = AGAP) 17.2 10.0-20.0 [facility]2019-12-01 09:51:00 Test Item Value Reference Range Interpretation Comments Calcium Lvl (test code = Calcium Lvl) 8.7 8.5-10.5 [facility]2019-12-01 09:51:00 Test Item Value Reference Range Interpretation Comments Albumin Lvl (test code = Albumin Lvl) 2.6 3.5-5.0 [facility]2019-12-01 09:51:00 Test Item Value Reference Range Interpretation Comments Phosphorus (test code = Phosphorus) 6.8 2.5-4.5 [facility]2019-12-01 09:51:00 Test Item Value Reference Range Interpretation Comments eGFR (test code = eGFR) 7 [facility] HospitalFbfcolvZVKGRUTAYM9487-38-94 09:51:00 Test Item Value Reference Range Interpretation Comments WBC (test code = WBC) 8.8 3.7-10.4 [facility] HospitalBmrikucENVFHXZQYJ1703-58-05 09:51:00 Test Item Value Reference Range Interpretation Comments RBC (test code = RBC) 5.60 4.20-5.40 [facility] HospitalRqdwodpXSBKBQJYZK3878-57-78 09:51:00 Test Item Value Reference Range Interpretation Comments Hgb (test code = Hgb) 14.2 12.0-16.0 [facility] HospitalBobpxlyPQTQELXSCM5519-92-69 09:51:00 Test Item Value Reference Range Interpretation Comments Hct (test code = Hct) 44.6 36.0-48.0 [facility] HospitalCyccaazBCUZVYVRTF0783-32-72 09:51:00 Test Item Value Reference Range Interpretation Comments MCV (test code = MCV) 79.6 80.0-98.0 [facility] HospitalFmfeewbNIOKXTZVWN6969-42-43 09:51:00 Test Item Value Reference Range Interpretation Comments MCH (test code = MCH) 25.3 pg 27.0-31.0 [facility] HospitalGdudfjqEDMKGBWPNV3776-61-21 09:51:00 Test Item Value Reference Range Interpretation Comments MCHC (test code = MCHC) 31.8 32.0-36.0 [facility] HospitalJngvsuyIKJTTCXCMH4995-89-25 09:51:00 Test Item Value Reference Range Interpretation Comments RDW (test code = RDW) 18.1 11.5-14.5 [facility] HospitalYtnksrcDJXVBOTMYS9507-25-94 09:51:00 Test Item Value Reference Range Interpretation Comments Platelet (test code = Platelet) 261 133-450 [facility] HospitalZxwszjaXGFMIOUOSM5969-04-05 09:51:00 Test Item Value Reference Range Interpretation Comments MPV (test code = MPV) 8.2 7.4-10.4 [facility] HospitalThgyvgwTMIIQZBDUR9016-16-82 09:51:00 Test Item Value Reference Range Interpretation Comments Segs (test code = Segs) 62.4 45.0-75.0 [facility] HospitalYjlqgamOQKOMSTDJT4476-82-26 09:51:00 Test Item Value Reference Range Interpretation Comments Lymphocytes (test code = Lymphocytes) 21.0 20.0-40.0 [facility] HospitalEuwrvtxBTKAIVAVJA8312-65-99 09:51:00 Test Item Value Reference Range Interpretation Comments Monocytes (test code = Monocytes) 10.8 2.0-12.0 [facility] HospitalCcqtadsMVJFWNWZHS6472-06-65 09:51:00 Test Item Value Reference Range Interpretation Comments Eosinophils (test code = Eosinophils) 4.1 <=4.0 [facility] HospitalNqnfesgZUPULTBNPP6921-19-74 09:51:00 Test Item Value Reference Range Interpretation Comments Basophils (test code = Basophils) 1.7 <=1.0 [facility] HospitalSbpsimsXJGCRNAUIQ2246-49-95 09:51:00 Test Item Value Reference Range Interpretation Comments Neutrophils # (test code = Neutrophils 5.5 1.5-8.1 #) [facility] HospitalEqvezhzLHMMCRSMHF8676-49-78 09:51:00 Test Item Value Reference Range Interpretation Comments Lymphocytes # (test code = Lymphocytes 1.9 1.0-5.5 #) [facility] HospitalNljvmarRNEJLTDITO4494-01-17 09:51:00 Test Item Value Reference Range Interpretation Comments Monocytes # (test code = Monocytes #) 1.0 <=0.8 [facility] HospitalIuywnypRASDCWBJGC1707-77-98 09:51:00 Test Item Value Reference Range Interpretation Comments Eosinophils # (test code = Eosinophils 0.4 <=0.5 #) [facility] HospitalSaqprezWXLTBXKESE7538-25-93 09:51:00 Test Item Value Reference Range Interpretation Comments Basophils # (test code = Basophils #) 0.2 <=0.2 [facility]2019-12-01 09:51:00 Test Item Value Reference Range Interpretation Comments Glucose Lvl (test code = Glucose Lvl) 109 70-99 [facility]2019-12-01 09:51:00 Test Item Value Reference Range Interpretation Comments BUN (test code = BUN) 41 06-15 [facility]2019-12-01 09:51:00 Test Item Value Reference Range Interpretation Comments Creatinine Lvl (test code = Creatinine 6.29 0.50-1.40 Lvl) [facility]2019-12-01 09:51:00 Test Item Value Reference Range Interpretation Comments Sodium Lvl (test code = Sodium Lvl) 139 135-145 [facility]2019-12-01 09:51:00 Test Item Value Reference Range Interpretation Comments Potassium Lvl (test code = Potassium 5.2 3.5-5.1 Lvl) [facility]2019-12-01 09:51:00 Test Item Value Reference Range Interpretation Comments Chloride Lvl (test code = Chloride Lvl) 105 95-109 [facility]2019-12-01 09:51:00 Test Item Value Reference Range Interpretation Comments CO2 (test code = CO2) 22 24-32 [facility]2019-12-01 09:51:00 Test Item Value Reference Range Interpretation Comments AGAP (test code = AGAP) 17.2 10.0-20.0 [facility]2019-12-01 09:51:00 Test Item Value Reference Range Interpretation Comments Calcium Lvl (test code = Calcium Lvl) 8.7 8.5-10.5 [facility]2019-12-01 09:51:00 Test Item Value Reference Range Interpretation Comments Albumin Lvl (test code = Albumin Lvl) 2.6 3.5-5.0 [facility]2019-12-01 09:51:00 Test Item Value Reference Range Interpretation Comments Phosphorus (test code = Phosphorus) 6.8 2.5-4.5 [facility]2019-12-01 09:51:00 Test Item Value Reference Range Interpretation Comments Glucose Lvl (test code = Glucose Lvl) 109 70-99 [facility]2019-12-01 09:51:00 Test Item Value Reference Range Interpretation Comments BUN (test code = BUN) 41 7- [facility]2019-12-01 09:51:00 Test Item Value Reference Range Interpretation Comments Creatinine Lvl (test code = Creatinine 6.29 0.50-1.40 Lvl) [facility]2019-12-01 09:51:00 Test Item Value Reference Range Interpretation Comments Sodium Lvl (test code = Sodium Lvl) 139 135-145 [facility]2019-12-01 09:51:00 Test Item Value Reference Range Interpretation Comments Potassium Lvl (test code = Potassium 5.2 3.5-5.1 Lvl) [facility]2019-12-01 09:51:00 Test Item Value Reference Range Interpretation Comments eGFR (test code = eGFR) 7 [facility]2019-12-01 09:51:00 Test Item Value Reference Range Interpretation Comments Chloride Lvl (test code = Chloride Lvl) 105 95-109 [facility]2019-12-01 09:51:00 Test Item Value Reference Range Interpretation Comments CO2 (test code = CO2) 22 24-32 [facility]2019-12-01 09:51:00 Test Item Value Reference Range Interpretation Comments AGAP (test code = AGAP) 17.2 10.0-20.0 [facility]2019-12-01 09:51:00 Test Item Value Reference Range Interpretation Comments Calcium Lvl (test code = Calcium Lvl) 8.7 8.5-10.5 [facility]2019-12-01 09:51:00 Test Item Value Reference Range Interpretation Comments Albumin Lvl (test code = Albumin Lvl) 2.6 3.5-5.0 [facility]2019-12-01 09:51:00 Test Item Value Reference Range Interpretation Comments Phosphorus (test code = Phosphorus) 6.8 2.5-4.5 [facility]2019-12-01 09:51:00 Test Item Value Reference Range Interpretation Comments eGFR (test code = eGFR) 7 [facility] HospitalVnazckyJCABXJEMCZ4078-34-74 09:51:00 Test Item Value Reference Range Interpretation Comments WBC (test code = WBC) 8.8 3.7-10.4 [facility] HospitalMtzafyvPMRXKJCDJE3493-95-54 09:51:00 Test Item Value Reference Range Interpretation Comments RBC (test code = RBC) 5.60 4.20-5.40 [facility] HospitalFnlhfhpIDQJDXRCRS8769-72-50 09:51:00 Test Item Value Reference Range Interpretation Comments Hgb (test code = Hgb) 14.2 12.0-16.0 [facility] HospitalDmquaqxINHVBCEQOK9611-42-92 09:51:00 Test Item Value Reference Range Interpretation Comments WBC (test code = WBC) 8.8 3.7-10.4 [facility] HospitalSaadytjAUOJHQBETL0464-65-27 09:51:00 Test Item Value Reference Range Interpretation Comments Hct (test code = Hct) 44.6 36.0-48.0 [facility] HospitalKhlguthYYZSZOSDGW2559-18-85 09:51:00 Test Item Value Reference Range Interpretation Comments MCV (test code = MCV) 79.6 80.0-98.0 [facility] HospitalSegbagwNBAYMKDVFP4734-61-88 09:51:00 Test Item Value Reference Range Interpretation Comments MCH (test code = MCH) 25.3 pg 27.0-31.0 [facility] HospitalDxhggzzBWNGCXRUXR6994-80-06 09:51:00 Test Item Value Reference Range Interpretation Comments MCHC (test code = MCHC) 31.8 32.0-36.0 [facility] HospitalQofjnswCYYHRVBLKU0190-62-63 09:51:00 Test Item Value Reference Range Interpretation Comments RDW (test code = RDW) 18.1 11.5-14.5 [facility] HospitalTunenqsIGVAHBNWDD4217-56-20 09:51:00 Test Item Value Reference Range Interpretation Comments Platelet (test code = Platelet) 261 133-450 [facility] HospitalYtjonejDLXRJQNEJH2152-33-75 09:51:00 Test Item Value Reference Range Interpretation Comments MPV (test code = MPV) 8.2 7.4-10.4 [facility] HospitalIvgtwkjTULSDITGYP4002-56-03 09:51:00 Test Item Value Reference Range Interpretation Comments Segs (test code = Segs) 62.4 45.0-75.0 [facility] HospitalBewyvnhZRDZFJNAZC3223-74-24 09:51:00 Test Item Value Reference Range Interpretation Comments Lymphocytes (test code = Lymphocytes) 21.0 20.0-40.0 [facility] HospitalRxoanhoJMXVPKDBIU2844-87-46 09:51:00 Test Item Value Reference Range Interpretation Comments Monocytes (test code = Monocytes) 10.8 2.0-12.0 [facility] HospitalYuxwmooWBIYSFZTQI6519-19-33 09:51:00 Test Item Value Reference Range Interpretation Comments RBC (test code = RBC) 5.60 4.20-5.40 [facility] HospitalNmremwoFHBXMVWJDX9526-05-23 09:51:00 Test Item Value Reference Range Interpretation Comments Eosinophils (test code = Eosinophils) 4.1 <=4.0 [facility] HospitalNayzvhaLDCCQSIJPM3180-63-67 09:51:00 Test Item Value Reference Range Interpretation Comments Basophils (test code = Basophils) 1.7 <=1.0 [facility] HospitalIunyimeAYIENDBFCA1906-93-29 09:51:00 Test Item Value Reference Range Interpretation Comments Neutrophils # (test code = Neutrophils 5.5 1.5-8.1 #) [facility] HospitalQxiqaggDZYLFCOGBV0473-57-09 09:51:00 Test Item Value Reference Range Interpretation Comments Lymphocytes # (test code = Lymphocytes 1.9 1.0-5.5 #) [facility] HospitalBvhoqkbMFEVMQPBEZ2862-80-23 09:51:00 Test Item Value Reference Range Interpretation Comments Monocytes # (test code = Monocytes #) 1.0 <=0.8 [facility] HospitalDdwenrhHJIECKVKAF1823-12-36 09:51:00 Test Item Value Reference Range Interpretation Comments Eosinophils # (test code = Eosinophils 0.4 <=0.5 #) [facility] HospitalAlxwhlvJPQDPRCTPX7758-14-19 09:51:00 Test Item Value Reference Range Interpretation Comments Basophils # (test code = Basophils #) 0.2 <=0.2 [facility] HospitalOytkmllRZVARTVXJI6631-80-10 09:51:00 Test Item Value Reference Range Interpretation Comments Hgb (test code = Hgb) 14.2 12.0-16.0 [facility] HospitalUdeanvcUKIBWQLYRE7770-15-85 09:51:00 Test Item Value Reference Range Interpretation Comments Hct (test code = Hct) 44.6 36.0-48.0 [facility] HospitalGbiydqzOUVKYRZSEG7298-34-61 09:51:00 Test Item Value Reference Range Interpretation Comments MCV (test code = MCV) 79.6 80.0-98.0 [facility] HospitalDgytdhbNPGFTRYTXM1624-82-81 09:51:00 Test Item Value Reference Range Interpretation Comments MCH (test code = MCH) 25.3 pg 27.0-31.0 [facility] HospitalQaeltvbFLCNTNNXDK9726-59-92 09:51:00 Test Item Value Reference Range Interpretation Comments MCHC (test code = MCHC) 31.8 32.0-36.0 [facility] HospitalNmevxdmEMKGRZVCVO2619-62-49 09:51:00 Test Item Value Reference Range Interpretation Comments RDW (test code = RDW) 18.1 11.5-14.5 [facility] HospitalDyzudksADPFDFVWZG1758-53-27 09:51:00 Test Item Value Reference Range Interpretation Comments Platelet (test code = Platelet) 261 133-450 [facility] HospitalRxolxaoMNJJUSOCFR0340-42-73 09:51:00 Test Item Value Reference Range Interpretation Comments MPV (test code = MPV) 8.2 7.4-10.4 [facility] HospitalMyvagirJRWKICBAIJ2351-86-45 09:51:00 Test Item Value Reference Range Interpretation Comments Segs (test code = Segs) 62.4 45.0-75.0 [facility] HospitalEklztrwKDYOXVBOAN5778-93-79 09:51:00 Test Item Value Reference Range Interpretation Comments Lymphocytes (test code = Lymphocytes) 21.0 20.0-40.0 [facility] HospitalWbghxosNQSFRYTIGK6875-37-49 09:51:00 Test Item Value Reference Range Interpretation Comments Monocytes (test code = Monocytes) 10.8 2.0-12.0 [facility] HospitalAeyhtctKGSVBFOOVM6465-69-01 09:51:00 Test Item Value Reference Range Interpretation Comments Eosinophils (test code = 4.1 See_Comment [A utomated message] The Eosinophils) system which ge nerated this result tra nsmitted reference range : <=4.0. The reference r henry was not used to int erpret this result as normal/abnormal . [facility] HospitalVkikdnxAVDWYNWSHS0629-30-88 09:51:00 Test Item Value Reference Range Interpretation Comments Basophils (test code = 1.7 See_Comment [Aut omated message] The Basophils) system which ge nerated this result tra nsmitted reference range : <=1.0. The reference r henry was not used to int erpret this result as normal/abnormal . [facility] HospitalVnffvfbRECJUSNYJQ0933-06-80 09:51:00 Test Item Value Reference Range Interpretation Comments Neutrophils # (test code = Neutrophils 5.5 1.5-8.1 #) [facility] HospitalZywctckIYFJOTNWEK2509-00-32 09:51:00 Test Item Value Reference Range Interpretation Comments Lymphocytes # (test code = Lymphocytes 1.9 1.0-5.5 #) [facility] HospitalFexwcmcPTUXWYZYTV7239-15-87 09:51:00 Test Item Value Reference Range Interpretation Comments Monocytes # (test code 1.0 See_Comment [Aut omated message] The = Monocytes #) system which generated this result tra nsmitted reference range : <=0.8. The reference r henry was not used to int erpret this result as normal/abnormal . [facility] HospitalBmufnpfRPZRYESWYJ1117-55-13 09:51:00 Test Item Value Reference Range Interpretation Comments Eosinophils # (test code 0.4 See_Comment [A utomated message] The = Eosinophils #) system whic h generated this result tra nsmitted reference range : <=0.5. The reference r henry was not used to int erpret this result as normal/abnormal . [facility]2019-12-01 09:51:00 Test Item Value Reference Range Interpretation Comments Glucose Lvl (test code = Glucose Lvl) 109 70-99 [facility]2019-12-01 09:51:00 Test Item Value Reference Range Interpretation Comments BUN (test code = BUN) 41 7-22 [facility]2019-12-01 09:51:00 Test Item Value Reference Range Interpretation Comments Creatinine Lvl (test code = Creatinine 6.29 0.50-1.40 Lvl) [facility]2019-12-01 09:51:00 Test Item Value Reference Range Interpretation Comments Sodium Lvl (test code = Sodium Lvl) 139 135-145 [facility]ymikfGVKOHUDYCJ0997-64-21 09:51:00 Test Item Value Reference Range Interpretation Comments Basophils # (test code 0.2 See_Comment [Aut omated message] The = Basophils #) system which generated this result tra nsmitted reference range : <=0.2. The reference r henry was not used to int erpret this result as normal/abnormal . [facility]2019-12-01 09:51:00 Test Item Value Reference Range Interpretation Comments Potassium Lvl (test code = Potassium 5.2 3.5-5.1 Lvl) [facility]2019-12-01 09:51:00 Test Item Value Reference Range Interpretation Comments Chloride Lvl (test code = Chloride Lvl) 105 95-109 [facility]2019-12-01 09:51:00 Test Item Value Reference Range Interpretation Comments CO2 (test code = CO2) 22 24-32 [facility]2019-12-01 09:51:00 Test Item Value Reference Range Interpretation Comments AGAP (test code = AGAP) 17.2 10.0-20.0 [facility]2019-12-01 09:51:00 Test Item Value Reference Range Interpretation Comments Calcium Lvl (test code = Calcium Lvl) 8.7 8.5-10.5 [facility]2019-12-01 09:51:00 Test Item Value Reference Range Interpretation Comments Albumin Lvl (test code = Albumin Lvl) 2.6 3.5-5.0 [facility]2019-12-01 09:51:00 Test Item Value Reference Range Interpretation Comments Phosphorus (test code = Phosphorus) 6.8 2.5-4.5 [facility]2019-12-01 09:51:00 Test Item Value Reference Range Interpretation Comments eGFR (test code = eGFR) 7 [facility]VhiruqaJAYEJYMYRH6046-48-81 09:51:00 Test Item Value Reference Range Interpretation Comments WBC (test code = WBC) 8.8 3.7-10.4 [facility] HospitalGdbjbfaTLAXDYPSXR8150-28-85 09:51:00 Test Item Value Reference Range Interpretation Comments RBC (test code = RBC) 5.60 4.20-5.40 [facility] HospitalHofqofvLWBGJJFLMU6777-38-63 09:51:00 Test Item Value Reference Range Interpretation Comments Hgb (test code = Hgb) 14.2 12.0-16.0 [facility] HospitalQnmabmgWXBFWXAKAN9043-82-33 09:51:00 Test Item Value Reference Range Interpretation Comments Hct (test code = Hct) 44.6 36.0-48.0 [facility] HospitalAangahnCUPFPUKMTI6049-52-39 09:51:00 Test Item Value Reference Range Interpretation Comments MCV (test code = MCV) 79.6 80.0-98.0 [facility] HospitalBvjawugXEEQACXPBG4010-31-29 09:51:00 Test Item Value Reference Range Interpretation Comments MCH (test code = MCH) 25.3 pg 27.0-31.0 [facility] HospitalGztmytkEVZKQRFUMO7867-52-84 09:51:00 Test Item Value Reference Range Interpretation Comments MCHC (test code = MCHC) 31.8 32.0-36.0 [facility] HospitalStmxnrkQAQREIRHQA2913-99-55 09:51:00 Test Item Value Reference Range Interpretation Comments RDW (test code = RDW) 18.1 11.5-14.5 [facility] HospitalWmgrwhkYNOXRTQAZQ4690-11-79 09:51:00 Test Item Value Reference Range Interpretation Comments Platelet (test code = Platelet) 261 133-450 [facility] HospitalRbuhsqvSCBZMGNOZF7380-47-62 09:51:00 Test Item Value Reference Range Interpretation Comments MPV (test code = MPV) 8.2 7.4-10.4 [facility] HospitalMeweojzTTEKRPGVSN5618-62-64 09:51:00 Test Item Value Reference Range Interpretation Comments Segs (test code = Segs) 62.4 45.0-75.0 [facility] HospitalQgzafprUNYHMRLZUS3375-18-07 09:51:00 Test Item Value Reference Range Interpretation Comments Lymphocytes (test code = Lymphocytes) 21.0 20.0-40.0 [facility] HospitalItxmpheZPTBWOIVHI3064-61-53 09:51:00 Test Item Value Reference Range Interpretation Comments Monocytes (test code = Monocytes) 10.8 2.0-12.0 [facility] HospitalMcfelyqWNGEFWIZKE1693-75-94 09:51:00 Test Item Value Reference Range Interpretation Comments Eosinophils (test code = Eosinophils) 4.1 <=4.0 [facility] HospitalRsylrjhWEYMMNCVSM6209-03-65 09:51:00 Test Item Value Reference Range Interpretation Comments Basophils (test code = Basophils) 1.7 <=1.0 [facility] HospitalRgbimwjQYQHQJABUQ0611-27-06 09:51:00 Test Item Value Reference Range Interpretation Comments Neutrophils # (test code = Neutrophils 5.5 1.5-8.1 #) [facility] HospitalViorrpfLSRDGMGTWM9459-35-77 09:51:00 Test Item Value Reference Range Interpretation Comments Lymphocytes # (test code = Lymphocytes 1.9 1.0-5.5 #) [facility] HospitalWehvraxJVFYYIJXYF7414-99-84 09:51:00 Test Item Value Reference Range Interpretation Comments Monocytes # (test code = Monocytes #) 1.0 <=0.8 [facility] HospitalQcydrfcTLSZVAXPIL3875-30-68 09:51:00 Test Item Value Reference Range Interpretation Comments Eosinophils # (test code = Eosinophils 0.4 <=0.5 #) [facility] HospitalCrfwgpuSSWCBSMPKR5142-21-40 09:51:00 Test Item Value Reference Range Interpretation Comments Basophils # (test code = Basophils #) 0.2 <=0.2 [facility]2019-12-01 09:51:00 Test Item Value Reference Range Interpretation Comments Glucose Lvl (test code = Glucose Lvl) 109 70-99 [facility]2019-12-01 09:51:00 Test Item Value Reference Range Interpretation Comments BUN (test code = BUN) 41 7-22 [facility]2019-12-01 09:51:00 Test Item Value Reference Range Interpretation Comments Creatinine Lvl (test code = Creatinine 6.29 0.50-1.40 Lvl) [facility]2019-12-01 09:51:00 Test Item Value Reference Range Interpretation Comments Sodium Lvl (test code = Sodium Lvl) 139 135-145 [facility]2019-12-01 09:51:00 Test Item Value Reference Range Interpretation Comments Potassium Lvl (test code = Potassium 5.2 3.5-5.1 Lvl) [facility]2019-12-01 09:51:00 Test Item Value Reference Range Interpretation Comments Chloride Lvl (test code = Chloride Lvl) 105 95-109 [facility]2019-12-01 09:51:00 Test Item Value Reference Range Interpretation Comments CO2 (test code = CO2) 22 24-32 [facility]2019-12-01 09:51:00 Test Item Value Reference Range Interpretation Comments AGAP (test code = AGAP) 17.2 10.0-20.0 [facility]2019-12-01 09:51:00 Test Item Value Reference Range Interpretation Comments Calcium Lvl (test code = Calcium Lvl) 8.7 8.5-10.5 [facility]2019-12-01 09:51:00 Test Item Value Reference Range Interpretation Comments Albumin Lvl (test code = Albumin Lvl) 2.6 3.5-5.0 [facility]2019-12-01 09:51:00 Test Item Value Reference Range Interpretation Comments Phosphorus (test code = Phosphorus) 6.8 2.5-4.5 [facility]2019-12-01 09:51:00 Test Item Value Reference Range Interpretation Comments eGFR (test code = eGFR) 7 [facility]uCXLVMIYAPU0914-57-86 09:51:00 Test Item Value Reference Range Interpretation Comments WBC (test code = WBC) 8.8 3.7-10.4 [facility] HospitalTctbgrvHPFWLVHTXS2860-24-80 09:51:00 Test Item Value Reference Range Interpretation Comments RBC (test code = RBC) 5.60 4.20-5.40 [facility] HospitalQvldhmbWHPCQJRATG7165-76-28 09:51:00 Test Item Value Reference Range Interpretation Comments Hgb (test code = Hgb) 14.2 12.0-16.0 [facility] HospitalRbelmzdEVUSIRUNZK0390-92-32 09:51:00 Test Item Value Reference Range Interpretation Comments Hct (test code = Hct) 44.6 36.0-48.0 [facility] HospitalMiftpixBFFHBXBOSA9141-30-36 09:51:00 Test Item Value Reference Range Interpretation Comments MCV (test code = MCV) 79.6 80.0-98.0 [facility] HospitalVyffhexKQQRTFZKOF7696-86-66 09:51:00 Test Item Value Reference Range Interpretation Comments MCH (test code = MCH) 25.3 pg 27.0-31.0 [facility] HospitalIfzozelIVNSOAYQZZ9521-46-95 09:51:00 Test Item Value Reference Range Interpretation Comments MCHC (test code = MCHC) 31.8 32.0-36.0 [facility] HospitalWkbpzebKVBJNCEWXC6589-97-49 09:51:00 Test Item Value Reference Range Interpretation Comments RDW (test code = RDW) 18.1 11.5-14.5 [facility] HospitalEwyrauoXWHIIPBHYK8219-76-26 09:51:00 Test Item Value Reference Range Interpretation Comments Platelet (test code = Platelet) 261 133-450 [facility] HospitalQxocfrbVEKAGOQDYX8003-61-92 09:51:00 Test Item Value Reference Range Interpretation Comments MPV (test code = MPV) 8.2 7.4-10.4 [facility] HospitalRlqlyaqLHCCASCKHP5076-51-51 09:51:00 Test Item Value Reference Range Interpretation Comments Segs (test code = Segs) 62.4 45.0-75.0 [facility] HospitalPtkzzfpIRHUAUSIPH7614-70-78 09:51:00 Test Item Value Reference Range Interpretation Comments Lymphocytes (test code = Lymphocytes) 21.0 20.0-40.0 [facility] HospitalWgrfeixNHUGYZSYSQ4845-80-01 09:51:00 Test Item Value Reference Range Interpretation Comments Monocytes (test code = Monocytes) 10.8 2.0-12.0 [facility] HospitalOvozxzaKAMEKJENDM5082-27-15 09:51:00 Test Item Value Reference Range Interpretation Comments Eosinophils (test code = Eosinophils) 4.1 <=4.0 [facility] HospitalMdyaoobKZQMJDPPDQ0675-13-66 09:51:00 Test Item Value Reference Range Interpretation Comments Basophils (test code = Basophils) 1.7 <=1.0 [facility] HospitalPypkjtkJHANUWCYAX5826-50-91 09:51:00 Test Item Value Reference Range Interpretation Comments Neutrophils # (test code = Neutrophils 5.5 1.5-8.1 #) [facility] HospitalZbasltfWOZJHWFSWD9623-41-31 09:51:00 Test Item Value Reference Range Interpretation Comments Lymphocytes # (test code = Lymphocytes 1.9 1.0-5.5 #) [facility] HospitalHrtlbpwBKPAJMRRMC4705-78-37 09:51:00 Test Item Value Reference Range Interpretation Comments Monocytes # (test code = Monocytes #) 1.0 <=0.8 [place] 896749-12-01 09:51:00 Test Item Value Reference Range Interpretation Comments Eosinophils # (test code = Eosinophils 0.4 <=0.5 #) [facility] HospitalWnsxnsuEIZMATKSZD0435-78-85 09:51:00 Test Item Value Reference Range Interpretation Comments Basophils # (test code = Basophils #) 0.2 <=0.2 [facility]2019-12-01 09:51:00 Test Item Value Reference Range Interpretation Comments Glucose Lvl (test code = Glucose Lvl) 109 70-99 [facility]2019-12-01 09:51:00 Test Item Value Reference Range Interpretation Comments BUN (test code = BUN) 41 7-22 [facility]2019-12-01 09:51:00 Test Item Value Reference Range Interpretation Comments Creatinine Lvl (test code = Creatinine 6.29 0.50-1.40 Lvl) [facility]2019-12-01 09:51:00 Test Item Value Reference Range Interpretation Comments Sodium Lvl (test code = Sodium Lvl) 139 135-145 [facility]2019-12-01 09:51:00 Test Item Value Reference Range Interpretation Comments Potassium Lvl (test code = Potassium 5.2 3.5-5.1 Lvl) [facility]2019-12-01 09:51:00 Test Item Value Reference Range Interpretation Comments Chloride Lvl (test code = Chloride Lvl) 105 95-109 [facility]2019-12-01 09:51:00 Test Item Value Reference Range Interpretation Comments CO2 (test code = CO2) 22 24-32 [facility]2019-12-01 09:51:00 Test Item Value Reference Range Interpretation Comments AGAP (test code = AGAP) 17.2 10.0-20.0 [facility]2019-12-01 09:51:00 Test Item Value Reference Range Interpretation Comments Calcium Lvl (test code = Calcium Lvl) 8.7 8.5-10.5 [place] 639279-12-01 09:51:00 Test Item Value Reference Range Interpretation Comments Albumin Lvl (test code = Albumin Lvl) 2.6 3.5-5.0 [facility]2019-12-01 09:51:00 Test Item Value Reference Range Interpretation Comments Phosphorus (test code = Phosphorus) 6.8 2.5-4.5 [facility]2019-12-01 09:51:00 Test Item Value Reference Range Interpretation Comments eGFR (test code = eGFR) 7 [facility] HospitalFiedadsXQOZSJFDUX0504-03-42 09:51:00 Test Item Value Reference Range Interpretation Comments WBC (test code = WBC) 8.8 3.7-10.4 [facility] HospitalTsfgvlbTVUUPGIWVN8165-22-06 09:51:00 Test Item Value Reference Range Interpretation Comments RBC (test code = RBC) 5.60 4.20-5.40 [facility] HospitalGmokijhSDAFBXWJIV6944-08-29 09:51:00 Test Item Value Reference Range Interpretation Comments Hgb (test code = Hgb) 14.2 12.0-16.0 [facility] HospitalUrlgtmxEIDFZQCHFK0279-38-31 09:51:00 Test Item Value Reference Range Interpretation Comments Hct (test code = Hct) 44.6 36.0-48.0 [facility] HospitalSskbebwGBDLIHAKYV6250-36-99 09:51:00 Test Item Value Reference Range Interpretation Comments MCV (test code = MCV) 79.6 80.0-98.0 [facility] HospitalGslaihmIWTFYODSQK9829-06-54 09:51:00 Test Item Value Reference Range Interpretation Comments MCH (test code = MCH) 25.3 pg 27.0-31.0 [facility] HospitalGnaxudiDCNJWAJVXD6967-93-61 09:51:00 Test Item Value Reference Range Interpretation Comments MCHC (test code = MCHC) 31.8 32.0-36.0 [facility] HospitalDfkkzvzPOYETRUDMR3283-15-37 09:51:00 Test Item Value Reference Range Interpretation Comments RDW (test code = RDW) 18.1 11.5-14.5 [facility] HospitalZrvrvfsAQIPWMROGE5700-27-84 09:51:00 Test Item Value Reference Range Interpretation Comments Platelet (test code = Platelet) 261 133-450 [facility] HospitalNpdmbooDPDACJADDL1940-30-73 09:51:00 Test Item Value Reference Range Interpretation Comments MPV (test code = MPV) 8.2 7.4-10.4 [facility] HospitalMukydhyGOMFIFPOVN7828-68-75 09:51:00 Test Item Value Reference Range Interpretation Comments Segs (test code = Segs) 62.4 45.0-75.0 [facility] HospitalHuooqxoTZYXQVNGMT6457-99-47 09:51:00 Test Item Value Reference Range Interpretation Comments Lymphocytes (test code = Lymphocytes) 21.0 20.0-40.0 [facility] HospitalAfvktboYLIFBRYZOB7525-17-12 09:51:00 Test Item Value Reference Range Interpretation Comments Monocytes (test code = Monocytes) 10.8 2.0-12.0 [facility] HospitalUrogokgTFBMJLGLEY9066-10-31 09:51:00 Test Item Value Reference Range Interpretation Comments Eosinophils (test code = Eosinophils) 4.1 <=4.0 [facility] HospitalZnoltazRYMDPYPNLC1153-14-17 09:51:00 Test Item Value Reference Range Interpretation Comments Basophils (test code = Basophils) 1.7 <=1.0 [facility] HospitalHqxgqxcZFFEJXBZEX4235-83-62 09:51:00 Test Item Value Reference Range Interpretation Comments Neutrophils # (test code = Neutrophils 5.5 1.5-8.1 #) [facility] HospitalFjouwszULCOAVAPRB6537-63-29 09:51:00 Test Item Value Reference Range Interpretation Comments Lymphocytes # (test code = Lymphocytes 1.9 1.0-5.5 #) [facility] HospitalGknfvouTARPDHGIZR6965-81-61 09:51:00 Test Item Value Reference Range Interpretation Comments Monocytes # (test code = Monocytes #) 1.0 <=0.8 [facility] HospitalSczooroDYHQVKUSTO2355-72-53 09:51:00 Test Item Value Reference Range Interpretation Comments Eosinophils # (test code = Eosinophils 0.4 <=0.5 #) [facility]cg[facility]XQDWHJZCDO7817-22-16 09:51:00 Test Item Value Reference Range Interpretation Comments Basophils # (test code = Basophils #) 0.2 <=0.2 [facility]2019-12-01 09:51:00 Test Item Value Reference Range Interpretation Comments Glucose Lvl (test code = Glucose Lvl) 109 70-99 [facility]2019-12-01 09:51:00 Test Item Value Reference Range Interpretation Comments BUN (test code = BUN) 41 7-22 [facility]2019-12-01 09:51:00 Test Item Value Reference Range Interpretation Comments Creatinine Lvl (test code = Creatinine 6.29 0.50-1.40 Lvl) [facility]2019-12-01 09:51:00 Test Item Value Reference Range Interpretation Comments Sodium Lvl (test code = Sodium Lvl) 139 135-145 [facility]2019-12-01 09:51:00 Test Item Value Reference Range Interpretation Comments Potassium Lvl (test code = Potassium 5.2 3.5-5.1 Lvl) [facility]2019-12-01 09:51:00 Test Item Value Reference Range Interpretation Comments Chloride Lvl (test code = Chloride Lvl) 105 95-109 [facility]2019-12-01 09:51:00 Test Item Value Reference Range Interpretation Comments CO2 (test code = CO2) 22 24-32 [facility]2019-12-01 09:51:00 Test Item Value Reference Range Interpretation Comments AGAP (test code = AGAP) 17.2 10.0-20.0 [facility]2019-12-01 09:51:00 Test Item Value Reference Range Interpretation Comments Calcium Lvl (test code = Calcium Lvl) 8.7 8.5-10.5 [facility]2019-12-01 09:51:00 Test Item Value Reference Range Interpretation Comments Albumin Lvl (test code = Albumin Lvl) 2.6 3.5-5.0 [facility]2019-12-01 09:51:00 Test Item Value Reference Range Interpretation Comments Phosphorus (test code = Phosphorus) 6.8 2.5-4.5 [facility]2019-12-01 09:51:00 Test Item Value Reference Range Interpretation Comments eGFR (test code = eGFR) 7 [facility] HospitalAxddhrtJBYOXOJIHX6548-19-77 09:51:00 Test Item Value Reference Range Interpretation Comments WBC (test code = WBC) 8.8 3.7-10.4 [facility] HospitalQrohcouAQQNXTRSBE5930-68-79 09:51:00 Test Item Value Reference Range Interpretation Comments RBC (test code = RBC) 5.60 4.20-5.40 [facility] HospitalKcloxfiPCECLVMDJZ4437-38-34 09:51:00 Test Item Value Reference Range Interpretation Comments Hgb (test code = Hgb) 14.2 12.0-16.0 [facility] HospitalTdabrmgFDJOTUDSAX1902-34-03 09:51:00 Test Item Value Reference Range Interpretation Comments Hct (test code = Hct) 44.6 36.0-48.0 [facility] HospitalRxfomigNZWMJKIJKI1000-91-28 09:51:00 Test Item Value Reference Range Interpretation Comments MCV (test code = MCV) 79.6 80.0-98.0 [facility] HospitalRwudfqaVUBJTNCONS3249-20-92 09:51:00 Test Item Value Reference Range Interpretation Comments MCH (test code = MCH) 25.3 pg 27.0-31.0 [facility] HospitalPlkvoubNMUKESGNTJ8888-46-04 09:51:00 Test Item Value Reference Range Interpretation Comments MCHC (test code = MCHC) 31.8 32.0-36.0 [facility] HospitalRnomsblECKKUZLKCS4286-70-39 09:51:00 Test Item Value Reference Range Interpretation Comments RDW (test code = RDW) 18.1 11.5-14.5 [facility] HospitalLtrjkulBHBBOBTDAB5674-89-51 09:51:00 Test Item Value Reference Range Interpretation Comments Platelet (test code = Platelet) 261 133-450 [facility] HospitalOcxpzdcRGROQQFEYL1583-84-99 09:51:00 Test Item Value Reference Range Interpretation Comments MPV (test code = MPV) 8.2 7.4-10.4 [facility] HospitalTjvkiolEGTOYYQJEU0789-38-36 09:51:00 Test Item Value Reference Range Interpretation Comments Segs (test code = Segs) 62.4 45.0-75.0 [facility] HospitalJhzzihhKEOLIIBKVE5161-62-94 09:51:00 Test Item Value Reference Range Interpretation Comments Lymphocytes (test code = Lymphocytes) 21.0 20.0-40.0 [facility] HospitalXxhnlftRFUVAANXZO5541-03-02 09:51:00 Test Item Value Reference Range Interpretation Comments Monocytes (test code = Monocytes) 10.8 2.0-12.0 [facility] HospitalOcuohfuTDRKUEBLNB1988-54-63 09:51:00 Test Item Value Reference Range Interpretation Comments Eosinophils (test code = 4.1 See_Comment [A utomated message] The Eosinophils) system which ge nerated this result tra nsmitted reference range : <=4.0. The reference r henry was not used to int erpret this result as normal/abnormal . [facility] HospitalXmcnsweKTRZQGFLYB3807-59-16 09:51:00 Test Item Value Reference Range Interpretation Comments Basophils (test code = 1.7 See_Comment [Aut omated message] The Basophils) system which ge nerated this result tra nsmitted reference range : <=1.0. The reference r henry was not used to int erpret this result as normal/abnormal . [facility] HospitalWoplmaoYDFKLXLEVT7280-30-48 09:51:00 Test Item Value Reference Range Interpretation Comments Neutrophils # (test code = Neutrophils 5.5 1.5-8.1 #) [facility] HospitalPvskdoeXNTYBOSREQ4434-74-59 09:51:00 Test Item Value Reference Range Interpretation Comments Lymphocytes # (test code = Lymphocytes 1.9 1.0-5.5 #) [facility] HospitalLcvpqhtYYCZXYIAVL0935-49-37 09:51:00 Test Item Value Reference Range Interpretation Comments Monocytes # (test code 1.0 See_Comment [Aut omated message] The = Monocytes #) system which generated this result tra nsmitted reference range : <=0.8. The reference r henry was not used to int erpret this result as normal/abnormal . [facility] HospitalVugcdjmRSINVJNHPC0203-69-71 09:51:00 Test Item Value Reference Range Interpretation Comments Eosinophils # (test code 0.4 See_Comment [A utomated message] The = Eosinophils #) system whic h generated this result tra nsmitted reference range : <=0.5. The reference r henry was not used to int erpret this result as normal/abnormal . [facility] HospitalByfyxyuQVRLMXJMFG3222-71-17 09:51:00 Test Item Value Reference Range Interpretation Comments Basophils # (test code 0.2 See_Comment [Aut omated message] The = Basophils #) system which generated this result tra nsmitted reference range : <=0.2. The reference r henry was not used to int erpret this result as normal/abnormal . [facility]2019-12-01 09:51:00 Test Item Value Reference Range Interpretation Comments Glucose Lvl (test code = Glucose Lvl) 109 70-99 [facility]2019-12-01 09:51:00 Test Item Value Reference Range Interpretation Comments BUN (test code = BUN) 41 7-22 [facility]2019-12-01 09:51:00 Test Item Value Reference Range Interpretation Comments Creatinine Lvl (test code = Creatinine 6.29 0.50-1.40 Lvl) [facility]2019-12-01 09:51:00 Test Item Value Reference Range Interpretation Comments Sodium Lvl (test code = Sodium Lvl) 139 135-145 [facility]2019-12-01 09:51:00 Test Item Value Reference Range Interpretation Comments Potassium Lvl (test code = Potassium 5.2 3.5-5.1 Lvl) [facility]2019-12-01 09:51:00 Test Item Value Reference Range Interpretation Comments Chloride Lvl (test code = Chloride Lvl) 105 95-109 [facility]2019-12-01 09:51:00 Test Item Value Reference Range Interpretation Comments CO2 (test code = CO2) 22 24-32 [facility]2019-12-01 09:51:00 Test Item Value Reference Range Interpretation Comments AGAP (test code = AGAP) 17.2 10.0-20.0 [facility]2019-12-01 09:51:00 Test Item Value Reference Range Interpretation Comments Calcium Lvl (test code = Calcium Lvl) 8.7 8.5-10.5 [facility]2019-12-01 09:51:00 Test Item Value Reference Range Interpretation Comments Albumin Lvl (test code = Albumin Lvl) 2.6 3.5-5.0 [facility]2019-12-01 09:51:00 Test Item Value Reference Range Interpretation Comments Phosphorus (test code = Phosphorus) 6.8 2.5-4.5 [facility]2019-12-01 09:51:00 Test Item Value Reference Range Interpretation Comments eGFR (test code = eGFR) 7 [facility]NBRZELSLLA5334-66-61 09:51:00 Test Item Value Reference Range Interpretation Comments WBC (test code = WBC) 8.8 3.7-10.4 [facility]GhkrxszLIXENQVXDV6381-82-13 09:51:00 Test Item Value Reference Range Interpretation Comments RBC (test code = RBC) 5.60 4.20-5.40 [facility]KhfhahaJOSKJUBKXY2031-12-48 09:51:00 Test Item Value Reference Range Interpretation Comments Hgb (test code = Hgb) 14.2 12.0-16.0 [facility] HospitalFrbroiwQPZUNDKMLG4055-07-42 09:51:00 Test Item Value Reference Range Interpretation Comments Hct (test code = Hct) 44.6 36.0-48.0 [facility] HospitalTchhvhfVOJENYIFED0083-11-57 09:51:00 Test Item Value Reference Range Interpretation Comments MCV (test code = MCV) 79.6 80.0-98.0 [facility] HospitalXphzfmtVDBDMPMGQP4185-88-87 09:51:00 Test Item Value Reference Range Interpretation Comments MCH (test code = MCH) 25.3 pg 27.0-31.0 [facility] HospitalIibzurnKREQUXMGBY6100-22-53 09:51:00 Test Item Value Reference Range Interpretation Comments MCHC (test code = MCHC) 31.8 32.0-36.0 [facility] HospitalLgjvxmmHSFJGMXDAH2622-96-90 09:51:00 Test Item Value Reference Range Interpretation Comments RDW (test code = RDW) 18.1 11.5-14.5 [facility] HospitalXyhbciyYBKPZAQPUF5641-08-68 09:51:00 Test Item Value Reference Range Interpretation Comments Platelet (test code = Platelet) 261 133-450 [facility] HospitalIqlrbqtIVQUYIGLWW0017-52-20 09:51:00 Test Item Value Reference Range Interpretation Comments MPV (test code = MPV) 8.2 7.4-10.4 [facility] HospitalUkysmhxSKIAOTUNXJ5852-92-47 09:51:00 Test Item Value Reference Range Interpretation Comments Segs (test code = Segs) 62.4 45.0-75.0 [facility] HospitalFxyvneqOESPVJJIPM0212-86-01 09:51:00 Test Item Value Reference Range Interpretation Comments Lymphocytes (test code = Lymphocytes) 21.0 20.0-40.0 [facility] HospitalHevjxauLPAVJCEZFQ8819-15-74 09:51:00 Test Item Value Reference Range Interpretation Comments Monocytes (test code = Monocytes) 10.8 2.0-12.0 [facility] HospitalOmvytrqDMEKBOOLLB4447-86-51 09:51:00 Test Item Value Reference Range Interpretation Comments Eosinophils (test code = 4.1 See_Comment [A utomated message] The Eosinophils) system which ge nerated this result tra nsmitted reference range : <=4.0. The reference r henry was not used to int erpret this result as normal/abnormal . [facility] HospitalCgetwdbNNXXJPTEBI1913-73-72 09:51:00 Test Item Value Reference Range Interpretation Comments Basophils (test code = 1.7 See_Comment [Aut omated message] The Basophils) system which ge nerated this result tra nsmitted reference range : <=1.0. The reference r henry was not used to int erpret this result as normal/abnormal . [facility] HospitalCpuwqgyPYCGVVWVSB8893-05-28 09:51:00 Test Item Value Reference Range Interpretation Comments Neutrophils # (test code = Neutrophils 5.5 1.5-8.1 #) [facility] HospitalCmpahenSYLEPHPIFY7189-65-09 09:51:00 Test Item Value Reference Range Interpretation Comments Lymphocytes # (test code = Lymphocytes 1.9 1.0-5.5 #) [facility] HospitalRfkknbzDKQWGIPEOJ8610-82-31 09:51:00 Test Item Value Reference Range Interpretation Comments Monocytes # (test code 1.0 See_Comment [Aut omated message] The = Monocytes #) system which generated this result tra nsmitted reference range : <=0.8. The reference r henry was not used to int erpret this result as normal/abnormal . [facility] HospitalEfuepxlVJCDOQBJJT2198-41-31 09:51:00 Test Item Value Reference Range Interpretation Comments Eosinophils # (test code 0.4 See_Comment [A utomated message] The = Eosinophils #) system wh h generated this result tra nsmitted reference range : <=0.5. The reference r henry was not used to int erpret this result as normal/abnormal . [facility] HospitalLgrhwzkJWRGCYOVWF0845-37-95 09:51:00 Test Item Value Reference Range Interpretation Comments Basophils # (test code 0.2 See_Comment [Aut omated message] The = Basophils #) system which generated this result tra nsmitted reference range : <=0.2. The reference r henry was not used to int erpret this result as normal/abnormal . [facility]2019-12-01 09:51:00 Test Item Value Reference Range Interpretation Comments Glucose Lvl (test code = Glucose Lvl) 109 70-99 [facility]2019-12-01 09:51:00 Test Item Value Reference Range Interpretation Comments BUN (test code = BUN) 41 7-22 [facility]2019-12-01 09:51:00 Test Item Value Reference Range Interpretation Comments Creatinine Lvl (test code = Creatinine 6.29 0.50-1.40 Lvl) [facility]2019-12-01 09:51:00 Test Item Value Reference Range Interpretation Comments Sodium Lvl (test code = Sodium Lvl) 139 135-145 [facility]2019-12-01 09:51:00 Test Item Value Reference Range Interpretation Comments Potassium Lvl (test code = Potassium 5.2 3.5-5.1 Lvl) [facility]2019-12-01 09:51:00 Test Item Value Reference Range Interpretation Comments Chloride Lvl (test code = Chloride Lvl) 105 95-109 [facility]2019-12-01 09:51:00 Test Item Value Reference Range Interpretation Comments CO2 (test code = CO2) 22 24-32 [facility]2019-12-01 09:51:00 Test Item Value Reference Range Interpretation Comments AGAP (test code = AGAP) 17.2 10.0-20.0 [facility]2019-12-01 09:51:00 Test Item Value Reference Range Interpretation Comments Calcium Lvl (test code = Calcium Lvl) 8.7 8.5-10.5 [facility]2019-12-01 09:51:00 Test Item Value Reference Range Interpretation Comments Albumin Lvl (test code = Albumin Lvl) 2.6 3.5-5.0 [facility]2019-12-01 09:51:00 Test Item Value Reference Range Interpretation Comments Phosphorus (test code = Phosphorus) 6.8 2.5-4.5 [facility]2019-12-01 09:51:00 Test Item Value Reference Range Interpretation Comments eGFR (test code = eGFR) 7 [facility]um[facility]yTCTWEUODYZ3314-94-50 09:51:00 Test Item Value Reference Range Interpretation Comments WBC (test code = WBC) 8.8 3.7-10.4 [facility] HospitalMrosnweCKMDJPLIDA0069-29-48 09:51:00 Test Item Value Reference Range Interpretation Comments RBC (test code = RBC) 5.60 4.20-5.40 [facility] HospitalKqinuieUQAVHMFXJP7391-99-29 09:51:00 Test Item Value Reference Range Interpretation Comments Hgb (test code = Hgb) 14.2 12.0-16.0 [facility] HospitalUmzculdGOUZJXDMQL0562-53-95 09:51:00 Test Item Value Reference Range Interpretation Comments Hct (test code = Hct) 44.6 36.0-48.0 [facility] HospitalOfdbbdrKLIJPIITAB0381-16-48 09:51:00 Test Item Value Reference Range Interpretation Comments MCV (test code = MCV) 79.6 80.0-98.0 [facility] HospitalPantnjyXXCJHLYMSE4372-84-56 09:51:00 Test Item Value Reference Range Interpretation Comments MCH (test code = MCH) 25.3 pg 27.0-31.0 [facility] HospitalIcdwnndDMDYBTLXFW3487-95-65 09:51:00 Test Item Value Reference Range Interpretation Comments MCHC (test code = MCHC) 31.8 32.0-36.0 [facility] HospitalRiuktjxGHSHVXZFJT1308-81-12 09:51:00 Test Item Value Reference Range Interpretation Comments RDW (test code = RDW) 18.1 11.5-14.5 [facility] HospitalLqomshhGEYKOWBKBF4568-68-60 09:51:00 Test Item Value Reference Range Interpretation Comments Platelet (test code = Platelet) 261 133-450 [facility] HospitalDlxncjlTVWWBRQXGZ1892-46-59 09:51:00 Test Item Value Reference Range Interpretation Comments MPV (test code = MPV) 8.2 7.4-10.4 [facility] HospitalNwyaxgcNZOPBCHQNA6487-72-92 09:51:00 Test Item Value Reference Range Interpretation Comments Segs (test code = Segs) 62.4 45.0-75.0 [facility] HospitalSqcnoklANAAGPTEZY7110-13-20 09:51:00 Test Item Value Reference Range Interpretation Comments Lymphocytes (test code = Lymphocytes) 21.0 20.0-40.0 [facility] HospitalVokjxmzIINEOWZKLZ0039-00-55 09:51:00 Test Item Value Reference Range Interpretation Comments Monocytes (test code = Monocytes) 10.8 2.0-12.0 [facility] HospitalFjylwctIHOCFAZYKZ3091-63-41 09:51:00 Test Item Value Reference Range Interpretation Comments Eosinophils (test code = 4.1 See_Comment [A utomated message] The Eosinophils) system which ge nerated this result tra nsmitted reference range : <=4.0. The reference r henry was not used to int erpret this result as normal/abnormal . [facility] HospitalQuexlwzHUYBKNROPD5188-01-45 09:51:00 Test Item Value Reference Range Interpretation Comments Basophils (test code = 1.7 See_Comment [Aut omated message] The Basophils) system which ge nerated this result tra nsmitted reference range : <=1.0. The reference r henry was not used to int erpret this result as normal/abnormal . [facility] HospitalQsersmsDSASHAVXQA3153-31-82 09:51:00 Test Item Value Reference Range Interpretation Comments Neutrophils # (test code = Neutrophils 5.5 1.5-8.1 #) [facility] HospitalVkwxgefEGRZRKNTVI5432-03-52 09:51:00 Test Item Value Reference Range Interpretation Comments Lymphocytes # (test code = Lymphocytes 1.9 1.0-5.5 #) [facility] HospitalNudzpreDXBYBHUJRM2091-30-48 09:51:00 Test Item Value Reference Range Interpretation Comments Monocytes # (test code 1.0 See_Comment [Aut omated message] The = Monocytes #) system which generated this result tra nsmitted reference range : <=0.8. The reference r henry was not used to int erpret this result as normal/abnormal . [facility] HospitalQcnigafRRRXQORHSJ2774-08-99 09:51:00 Test Item Value Reference Range Interpretation Comments Eosinophils # (test code 0.4 See_Comment [A utomated message] The = Eosinophils #) system whic h generated this result tra nsmitted reference range : <=0.5. The reference r henry was not used to int erpret this result as normal/abnormal . [facility] HospitalEmacgjmTQXQNFDBLZ1052-09-33 09:51:00 Test Item Value Reference Range Interpretation Comments Basophils # (test code 0.2 See_Comment [Aut omated message] The = Basophils #) system which generated this result tra nsmitted reference range : <=0.2. The reference r henry was not used to int erpret this result as normal/abnormal . [facility]2019-12-01 09:51:00 Test Item Value Reference Range Interpretation Comments Glucose Lvl (test code = Glucose Lvl) 109 70-99 [facility]2019-12-01 09:51:00 Test Item Value Reference Range Interpretation Comments BUN (test code = BUN) 41 7-22 [facility]2019-12-01 09:51:00 Test Item Value Reference Range Interpretation Comments Creatinine Lvl (test code = Creatinine 6.29 0.50-1.40 Lvl) [facility]2019-12-01 09:51:00 Test Item Value Reference Range Interpretation Comments Sodium Lvl (test code = Sodium Lvl) 139 135-145 [facility]2019-12-01 09:51:00 Test Item Value Reference Range Interpretation Comments Potassium Lvl (test code = Potassium 5.2 3.5-5.1 Lvl) [facility]2019-12-01 09:51:00 Test Item Value Reference Range Interpretation Comments Chloride Lvl (test code = Chloride Lvl) 105 95-109 [facility]2019-12-01 09:51:00 Test Item Value Reference Range Interpretation Comments CO2 (test code = CO2) 22 24-32 [facility]2019-12-01 09:51:00 Test Item Value Reference Range Interpretation Comments AGAP (test code = AGAP) 17.2 10.0-20.0 [facility]2019-12-01 09:51:00 Test Item Value Reference Range Interpretation Comments Calcium Lvl (test code = Calcium Lvl) 8.7 8.5-10.5 [facility]2019-12-01 09:51:00 Test Item Value Reference Range Interpretation Comments Albumin Lvl (test code = Albumin Lvl) 2.6 3.5-5.0 [facility]2019-12-01 09:51:00 Test Item Value Reference Range Interpretation Comments Phosphorus (test code = Phosphorus) 6.8 2.5-4.5 [facility]2019-12-01 09:51:00 Test Item Value Reference Range Interpretation Comments eGFR (test code = eGFR) 7 [facility]RpqeqhrXIQTRJQEOK9633-88-99 09:51:00 Test Item Value Reference Range Interpretation Comments WBC (test code = WBC) 8.8 3.7-10.4 [facility] HospitalMrwfeniRTWGOIIBWF1583-86-88 09:51:00 Test Item Value Reference Range Interpretation Comments RBC (test code = RBC) 5.60 4.20-5.40 [facility] HospitalYprlrfhEMRGEHLATU3616-40-73 09:51:00 Test Item Value Reference Range Interpretation Comments Hgb (test code = Hgb) 14.2 12.0-16.0 [facility] HospitalJtfsrnsTRHALNRCGD5627-15-07 09:51:00 Test Item Value Reference Range Interpretation Comments Hct (test code = Hct) 44.6 36.0-48.0 [facility] HospitalOzuirysXMQFIJCUWS7555-19-25 09:51:00 Test Item Value Reference Range Interpretation Comments MCV (test code = MCV) 79.6 80.0-98.0 [facility] HospitalBvprixbPWNOQCGFCE3073-97-71 09:51:00 Test Item Value Reference Range Interpretation Comments MCH (test code = MCH) 25.3 pg 27.0-31.0 [facility] HospitalYxxvtpiYJCNBZTBEM3229-45-99 09:51:00 Test Item Value Reference Range Interpretation Comments MCHC (test code = MCHC) 31.8 32.0-36.0 [facility] HospitalXzpxzoqXXTFVZVWDV9986-91-91 09:51:00 Test Item Value Reference Range Interpretation Comments RDW (test code = RDW) 18.1 11.5-14.5 [facility] HospitalHjdcnrbDTGOZLJZBY4236-45-66 09:51:00 Test Item Value Reference Range Interpretation Comments Platelet (test code = Platelet) 261 133-450 [facility] HospitalHwpzcbhCUZGTVAKGD0953-40-44 09:51:00 Test Item Value Reference Range Interpretation Comments MPV (test code = MPV) 8.2 7.4-10.4 [facility] HospitalZqwekoqEBRMAHBCGV7856-96-00 09:51:00 Test Item Value Reference Range Interpretation Comments Segs (test code = Segs) 62.4 45.0-75.0 [facility] HospitalQziolecYNMLCYJJIR4080-98-94 09:51:00 Test Item Value Reference Range Interpretation Comments Lymphocytes (test code = Lymphocytes) 21.0 20.0-40.0 [facility] HospitalBydiicvBTXNNWDDGW6198-85-57 09:51:00 Test Item Value Reference Range Interpretation Comments Monocytes (test code = Monocytes) 10.8 2.0-12.0 [facility] HospitalIvnkmgrKAGUHNDINJ5112-34-68 09:51:00 Test Item Value Reference Range Interpretation Comments Eosinophils (test code = Eosinophils) 4.1 <=4.0 [facility] HospitalAlthactTZFPHZATSF3121-87-01 09:51:00 Test Item Value Reference Range Interpretation Comments Basophils (test code = Basophils) 1.7 <=1.0 [facility] HospitalOsoikwmWHHUBJXNII4756-06-59 09:51:00 Test Item Value Reference Range Interpretation Comments Neutrophils # (test code = Neutrophils 5.5 1.5-8.1 #) [facility] HospitalImnneaeSFRGZOFPMM5537-12-65 09:51:00 Test Item Value Reference Range Interpretation Comments Lymphocytes # (test code = Lymphocytes 1.9 1.0-5.5 #) [facility] HospitalChnomzpOOHKBLXHKT7177-22-35 09:51:00 Test Item Value Reference Range Interpretation Comments Monocytes # (test code = Monocytes #) 1.0 <=0.8 [facility] HospitalGxigazfALKXKEGRDN5262-25-18 09:51:00 Test Item Value Reference Range Interpretation Comments Eosinophils # (test code = Eosinophils 0.4 <=0.5 #) [facility] HospitalDffrfdnXFHIJEMTNW0684-99-82 09:51:00 Test Item Value Reference Range Interpretation Comments Basophils # (test code = Basophils #) 0.2 <=0.2 [facility]2019-11-30 17:53:00 Test Item Value Reference Range Interpretation Comments Procalcitonin Lvl (test 0.50 See_Comment [Au tomated message] code = Procalcitonin Lvl) Th e system which generated this result transmitted ref erence range: <=0.10. The reference range was not used to interpr et this result as normal/abnormal . [facility]2019-11-30 17:53:00 Test Item Value Reference Range Interpretation Comments Procalcitonin Lvl (test 0.50 See_Comment [Au tomated message] code = Procalcitonin Lvl) Th e system which generated this result transmitted ref erence range: <=0.10. The reference range was not used to interpr et this result as normal/abnormal . [facility]2019-11-30 17:53:00 Test Item Value Reference Range Interpretation Comments Procalcitonin Lvl (test 0.50 See_Comment [Au tomated message] code = Procalcitonin Lvl) Th e system which generated this result transmitted ref erence range: <=0.10. The reference range was not used to interpr et this result as normal/abnormal . [facility]2019-11-30 17:53:00 Test Item Value Reference Range Interpretation Comments Procalcitonin Lvl (test 0.50 See_Comment [Au tomated message] code = Procalcitonin Lvl) Th e system which generated this result transmitted ref erence range: <=0.10. The reference range was not used to interpr et this result as normal/abnormal . [facility]2019-11-30 17:53:00 Test Item Value Reference Range Interpretation Comments Procalcitonin Lvl (test 0.50 See_Comment [Au tomated message] code = Procalcitonin Lvl) Th e system which generated this result transmitted ref erence range: <=0.10. The reference range was not used to interpr et this result as normal/abnormal . [facility]2019-11-30 17:53:00 Test Item Value Reference Range Interpretation Comments Procalcitonin Lvl (test 0.50 See_Comment [Au tomated message] code = Procalcitonin Lvl) Th e system which generated this result transmitted ref erence range: <=0.10. The reference range was not used to interpr et this result as normal/abnormal . [facility]2019-11-30 17:53:00 Test Item Value Reference Range Interpretation Comments Procalcitonin Lvl (test 0.50 See_Comment [Au tomated message] code = Procalcitonin Lvl) Th e system which generated this result transmitted ref erence range: <=0.10. The reference range was not used to interpr et this result as normal/abnormal . [facility]2019-11-30 17:53:00 Test Item Value Reference Range Interpretation Comments Procalcitonin Lvl (test code = 0.50 <=0.10 Procalcitonin Lvl) [facility]2019-11-30 17:53:00 Test Item Value Reference Range Interpretation Comments Procalcitonin Lvl (test code = 0.50 <=0.10 Procalcitonin Lvl) [place] 639279-11-30 17:53:00 Test Item Value Reference Range Interpretation Comments Procalcitonin Lvl (test code = 0.50 <=0.10 Procalcitonin Lvl) [facility]2019-11-30 17:53:00 Test Item Value Reference Range Interpretation Comments Procalcitonin Lvl (test code = 0.50 <=0.10 Procalcitonin Lvl) [place] 639279-11-30 17:53:00 Test Item Value Reference Range Interpretation Comments Procalcitonin Lvl (test code = 0.50 <=0.10 Procalcitonin Lvl) [place] 639279-11-30 17:53:00 Test Item Value Reference Range Interpretation Comments Procalcitonin Lvl (test code = 0.50 <=0.10 Procalcitonin Lvl) [place] 639279-11-30 17:53:00 Test Item Value Reference Range Interpretation Comments Procalcitonin Lvl (test 0.50 See_Comment [Au tomated message] code = Procalcitonin Lvl) Th e system which generated this result transmitted ref erence range: <=0.10. The reference range was not used to interpr et this result as normal/abnormal . [place] 639279-11-30 17:53:00 Test Item Value Reference Range Interpretation Comments Procalcitonin Lvl (test code = 0.50 <=0.10 Procalcitonin Lvl) [place] 639279-11-30 17:53:00 Test Item Value Reference Range Interpretation Comments Procalcitonin Lvl (test code = 0.50 <=0.10 Procalcitonin Lvl) [place] 639279-11-30 17:53:00 Test Item Value Reference Range Interpretation Comments Procalcitonin Lvl (test code = 0.50 <=0.10 Procalcitonin Lvl) [place] 639279-11-30 17:53:00 Test Item Value Reference Range Interpretation Comments Procalcitonin Lvl (test 0.50 See_Comment [Au tomated message] code = Procalcitonin Lvl) Th e system which generated this result transmitted ref erence range: <=0.10. The reference range was not used to interpr et this result as normal/abnormal . [facility]2019-11-30 17:53:00 Test Item Value Reference Range Interpretation Comments Procalcitonin Lvl (test 0.50 See_Comment [Au tomated message] code = Procalcitonin Lvl) Th e system which generated this result transmitted ref erence range: <=0.10. The reference range was not used to interpr et this result as normal/abnormal . [facility]2019-11-30 17:53:00 Test Item Value Reference Range Interpretation Comments Procalcitonin Lvl (test 0.50 See_Comment [Au tomated message] code = Procalcitonin Lvl) Th e system which generated this result transmitted ref erence range: <=0.10. The reference range was not used to interpr et this result as normal/abnormal . [facility]2019-11-30 17:53:00 Test Item Value Reference Range Interpretation Comments Procalcitonin Lvl (test code = 0.50 <=0.10 Procalcitonin Lvl) [facility]2019-11-30 10:35:00 Test Item Value Reference Range Interpretation Comments Glucose Lvl (test code = Glucose Lvl) 254 70-99 [facility]2019-11-30 10:35:00 Test Item Value Reference Range Interpretation Comments BUN (test code = BUN) 19 7-22 [facility]2019-11-30 10:35:00 Test Item Value Reference Range Interpretation Comments Creatinine Lvl (test code = Creatinine 4.05 0.50-1.40 Lvl) [facility]2019-11-30 10:35:00 Test Item Value Reference Range Interpretation Comments Sodium Lvl (test code = Sodium Lvl) 138 135-145 [facility]2019-11-30 10:35:00 Test Item Value Reference Range Interpretation Comments Potassium Lvl (test code = Potassium 4.6 3.5-5.1 Lvl) [facility]2019-11-30 10:35:00 Test Item Value Reference Range Interpretation Comments Chloride Lvl (test code = Chloride Lvl) 102 95-109 [facility]2019-11-30 10:35:00 Test Item Value Reference Range Interpretation Comments CO2 (test code = CO2) 26 24-32 [facility]2019-11-30 10:35:00 Test Item Value Reference Range Interpretation Comments AGAP (test code = AGAP) 14.6 10.0-20.0 [facility]2019-11-30 10:35:00 Test Item Value Reference Range Interpretation Comments Calcium Lvl (test code = Calcium Lvl) 8.9 8.5-10.5 [facility]2019-11-30 10:35:00 Test Item Value Reference Range Interpretation Comments Albumin Lvl (test code = Albumin Lvl) 2.7 3.5-5.0 [facility]2019-11-30 10:35:00 Test Item Value Reference Range Interpretation Comments Phosphorus (test code = Phosphorus) 5.1 2.5-4.5 [facility]2019-11-30 10:35:00 Test Item Value Reference Range Interpretation Comments eGFR (test code = eGFR) 11 [facility]brbqohPCDDPSTPJC9117-98-13 10:35:00 Test Item Value Reference Range Interpretation Comments WBC (test code = WBC) 8.5 3.7-10.4 [facility]MvkltncVPVLMAVUQH3031-18-66 10:35:00 Test Item Value Reference Range Interpretation Comments RBC (test code = RBC) 5.30 4.20-5.40 [facility] HospitalKfmxareGXSQGAPWWD5090-97-47 10:35:00 Test Item Value Reference Range Interpretation Comments Hgb (test code = Hgb) 13.4 12.0-16.0 [facility] HospitalSiexgumCNXGXUSQND1071-87-56 10:35:00 Test Item Value Reference Range Interpretation Comments Hct (test code = Hct) 42.5 36.0-48.0 [facility] HospitalKorwmemXJSEBUYMXH3282-27-44 10:35:00 Test Item Value Reference Range Interpretation Comments MCV (test code = MCV) 80.1 80.0-98.0 [facility] HospitalBtpapryZOIQRBDEPI7449-48-44 10:35:00 Test Item Value Reference Range Interpretation Comments MCH (test code = MCH) 25.3 pg 27.0-31.0 [facility] HospitalSkjhjdsYEVPQKKJXS6588-17-15 10:35:00 Test Item Value Reference Range Interpretation Comments MCHC (test code = MCHC) 31.6 32.0-36.0 [facility] HospitalReuhjymRUQGRHZDXQ0779-39-28 10:35:00 Test Item Value Reference Range Interpretation Comments RDW (test code = RDW) 18.2 11.5-14.5 [facility] HospitalDqausbvXOEKKNHVLV1100-51-32 10:35:00 Test Item Value Reference Range Interpretation Comments Platelet (test code = Platelet) 245 133-450 [facility] HospitalFprrjrkEBRYSHXARU5891-15-06 10:35:00 Test Item Value Reference Range Interpretation Comments MPV (test code = MPV) 8.1 7.4-10.4 [facility] HospitalDqfxcnlAIFUGFCWWN4582-79-24 10:35:00 Test Item Value Reference Range Interpretation Comments Segs (test code = Segs) 58.9 45.0-75.0 [facility] HospitalCjdcycoYSJGHGELBP4811-31-17 10:35:00 Test Item Value Reference Range Interpretation Comments Lymphocytes (test code = Lymphocytes) 29.7 20.0-40.0 [facility] HospitalVuysoybIEHQOUMBUB8579-92-31 10:35:00 Test Item Value Reference Range Interpretation Comments Monocytes (test code = Monocytes) 8.3 2.0-12.0 [facility] HospitalXlbbvjiSITXQOOCBT5098-03-58 10:35:00 Test Item Value Reference Range Interpretation Comments Eosinophils (test code = 1.5 See_Comment [A utomated message] The Eosinophils) system which ge nerated this result tra nsmitted reference range : <=4.0. The reference r henry was not used to int erpret this result as normal/abnormal . [facility] HospitalCaqlnqcYKPKRAHPWM2323-78-63 10:35:00 Test Item Value Reference Range Interpretation Comments Basophils (test code = 1.6 See_Comment [Aut omated message] The Basophils) system which ge nerated this result tra nsmitted reference range : <=1.0. The reference r henry was not used to int erpret this result as normal/abnormal . [facility] HospitalGtegmdxUXCBRZLWZS0636-42-48 10:35:00 Test Item Value Reference Range Interpretation Comments Neutrophils # (test code = Neutrophils 5.0 1.5-8.1 #) [facility] HospitalUgkcqatQLGJQFYERR7134-35-32 10:35:00 Test Item Value Reference Range Interpretation Comments Lymphocytes # (test code = Lymphocytes 2.5 1.0-5.5 #) [facility] HospitalWidujzaIUGHYRMVPY6980-20-88 10:35:00 Test Item Value Reference Range Interpretation Comments Monocytes # (test code 0.7 See_Comment [Aut omated message] The = Monocytes #) system which generated this result tra nsmitted reference range : <=0.8. The reference r henry was not used to int erpret this result as normal/abnormal . [facility] HospitalXgbvfqpCXBENDBPJP2554-05-95 10:35:00 Test Item Value Reference Range Interpretation Comments Eosinophils # (test code 0.1 See_Comment [A utomated message] The = Eosinophils #) system whic h generated this result tra nsmitted reference range : <=0.5. The reference r henry was not used to int erpret this result as normal/abnormal . [facility] HospitalYlycidvXYLZZHXOUR9276-44-16 10:35:00 Test Item Value Reference Range Interpretation Comments Basophils # (test code 0.1 See_Comment [Aut omated message] The = Basophils #) system which generated this result tra nsmitted reference range : <=0.2. The reference r henry was not used to int erpret this result as normal/abnormal . [facility]2019-11-30 10:35:00 Test Item Value Reference Range Interpretation Comments Glucose Lvl (test code = Glucose Lvl) 254 70-99 [facility]2019-11-30 10:35:00 Test Item Value Reference Range Interpretation Comments BUN (test code = BUN) 19 7-22 [facility]2019-11-30 10:35:00 Test Item Value Reference Range Interpretation Comments Creatinine Lvl (test code = Creatinine 4.05 0.50-1.40 Lvl) [facility]2019-11-30 10:35:00 Test Item Value Reference Range Interpretation Comments Sodium Lvl (test code = Sodium Lvl) 138 135-145 [facility]2019-11-30 10:35:00 Test Item Value Reference Range Interpretation Comments Potassium Lvl (test code = Potassium 4.6 3.5-5.1 Lvl) [facility]2019-11-30 10:35:00 Test Item Value Reference Range Interpretation Comments Chloride Lvl (test code = Chloride Lvl) 102 95-109 [facility]2019-11-30 10:35:00 Test Item Value Reference Range Interpretation Comments CO2 (test code = CO2) 26 24-32 [facility]2019-11-30 10:35:00 Test Item Value Reference Range Interpretation Comments AGAP (test code = AGAP) 14.6 10.0-20.0 [facility]2019-11-30 10:35:00 Test Item Value Reference Range Interpretation Comments Calcium Lvl (test code = Calcium Lvl) 8.9 8.5-10.5 [facility]2019-11-30 10:35:00 Test Item Value Reference Range Interpretation Comments Albumin Lvl (test code = Albumin Lvl) 2.7 3.5-5.0 [facility]2019-11-30 10:35:00 Test Item Value Reference Range Interpretation Comments Phosphorus (test code = Phosphorus) 5.1 2.5-4.5 [facility]2019-11-30 10:35:00 Test Item Value Reference Range Interpretation Comments eGFR (test code = eGFR) 11 [facility] HospitalGrqogrmPLMECBBFMO0204-16-06 10:35:00 Test Item Value Reference Range Interpretation Comments WBC (test code = WBC) 8.5 3.7-10.4 [facility] HospitalHtdzeltAHFKYLNIPM8026-52-62 10:35:00 Test Item Value Reference Range Interpretation Comments RBC (test code = RBC) 5.30 4.20-5.40 [facility] HospitalLrqmxznKWBUYJWQAY7587-92-64 10:35:00 Test Item Value Reference Range Interpretation Comments Hgb (test code = Hgb) 13.4 12.0-16.0 [facility] HospitalJywohkySIHDQJZFZA4320-94-77 10:35:00 Test Item Value Reference Range Interpretation Comments Hct (test code = Hct) 42.5 36.0-48.0 [facility] HospitalQcuhbznOVDWIVMGZF0099-49-67 10:35:00 Test Item Value Reference Range Interpretation Comments MCV (test code = MCV) 80.1 80.0-98.0 [facility] HospitalWoktwwaDRIETMMJWI8255-24-86 10:35:00 Test Item Value Reference Range Interpretation Comments MCH (test code = MCH) 25.3 pg 27.0-31.0 [facility] HospitalSihtlhwTFZNXNZMAO8590-01-26 10:35:00 Test Item Value Reference Range Interpretation Comments MCHC (test code = MCHC) 31.6 32.0-36.0 [facility] HospitalBtvwqonIIJBPGGQCW2321-69-61 10:35:00 Test Item Value Reference Range Interpretation Comments RDW (test code = RDW) 18.2 11.5-14.5 [facility] HospitalEsgqukpWWQTSCYSGN0927-03-11 10:35:00 Test Item Value Reference Range Interpretation Comments Platelet (test code = Platelet) 245 133-450 [facility] HospitalTpttimjGWGYYSVTZC6514-96-58 10:35:00 Test Item Value Reference Range Interpretation Comments MPV (test code = MPV) 8.1 7.4-10.4 [facility] HospitalMwqtiwvDJWTUPSEMI5016-89-81 10:35:00 Test Item Value Reference Range Interpretation Comments Segs (test code = Segs) 58.9 45.0-75.0 [facility] HospitalWbiowrhOAIBIDIYYO1967-10-22 10:35:00 Test Item Value Reference Range Interpretation Comments Lymphocytes (test code = Lymphocytes) 29.7 20.0-40.0 [facility] HospitalQeauotlRFNOYLIPFZ2052-58-96 10:35:00 Test Item Value Reference Range Interpretation Comments Monocytes (test code = Monocytes) 8.3 2.0-12.0 [facility] HospitalOekmmerGFYWLQKFTQ8375-52-16 10:35:00 Test Item Value Reference Range Interpretation Comments Eosinophils (test code = 1.5 See_Comment [A utomated message] The Eosinophils) system which ge nerated this result tra nsmitted reference range : <=4.0. The reference r henry was not used to int erpret this result as normal/abnormal . [facility] HospitalJomuqvlDRPQXXSQTL3919-02-65 10:35:00 Test Item Value Reference Range Interpretation Comments Basophils (test code = 1.6 See_Comment [Aut omated message] The Basophils) system which ge nerated this result tra nsmitted reference range : <=1.0. The reference r henry was not used to int erpret this result as normal/abnormal . [facility] HospitalNnwdetxMATJLPPFOO7470-47-73 10:35:00 Test Item Value Reference Range Interpretation Comments Neutrophils # (test code = Neutrophils 5.0 1.5-8.1 #) [facility] HospitalPskjhxhXPFDMDQOOH3335-15-20 10:35:00 Test Item Value Reference Range Interpretation Comments Lymphocytes # (test code = Lymphocytes 2.5 1.0-5.5 #) [facility] HospitalUfabnooAKILIBGEJI1392-19-27 10:35:00 Test Item Value Reference Range Interpretation Comments Monocytes # (test code 0.7 See_Comment [Aut omated message] The = Monocytes #) system which generated this result tra nsmitted reference range : <=0.8. The reference r henry was not used to int erpret this result as normal/abnormal . [facility] HospitalNubgiakUIVNFQZBBA6901-02-92 10:35:00 Test Item Value Reference Range Interpretation Comments Eosinophils # (test code 0.1 See_Comment [A utomated message] The = Eosinophils #) system whic h generated this result tra nsmitted reference range : <=0.5. The reference r henry was not used to int erpret this result as normal/abnormal . [facility] HospitalWxyytszSHWXTRNNPV4543-74-56 10:35:00 Test Item Value Reference Range Interpretation Comments Basophils # (test code 0.1 See_Comment [Aut omated message] The = Basophils #) system which generated this result tra nsmitted reference range : <=0.2. The reference r henry was not used to int erpret this result as normal/abnormal . [facility]2019-11-30 10:35:00 Test Item Value Reference Range Interpretation Comments Glucose Lvl (test code = Glucose Lvl) 254 70-99 [facility]2019-11-30 10:35:00 Test Item Value Reference Range Interpretation Comments BUN (test code = BUN) 19 7-22 [facility]2019-11-30 10:35:00 Test Item Value Reference Range Interpretation Comments Creatinine Lvl (test code = Creatinine 4.05 0.50-1.40 Lvl) [facility]2019-11-30 10:35:00 Test Item Value Reference Range Interpretation Comments Sodium Lvl (test code = Sodium Lvl) 138 135-145 [facility]2019-11-30 10:35:00 Test Item Value Reference Range Interpretation Comments Potassium Lvl (test code = Potassium 4.6 3.5-5.1 Lvl) [facility]2019-11-30 10:35:00 Test Item Value Reference Range Interpretation Comments Chloride Lvl (test code = Chloride Lvl) 102 95-109 [facility]2019-11-30 10:35:00 Test Item Value Reference Range Interpretation Comments CO2 (test code = CO2) 26 24-32 [facility]2019-11-30 10:35:00 Test Item Value Reference Range Interpretation Comments AGAP (test code = AGAP) 14.6 10.0-20.0 [facility]2019-11-30 10:35:00 Test Item Value Reference Range Interpretation Comments Calcium Lvl (test code = Calcium Lvl) 8.9 8.5-10.5 [facility]2019-11-30 10:35:00 Test Item Value Reference Range Interpretation Comments Albumin Lvl (test code = Albumin Lvl) 2.7 3.5-5.0 [facility]2019-11-30 10:35:00 Test Item Value Reference Range Interpretation Comments Phosphorus (test code = Phosphorus) 5.1 2.5-4.5 [facility]2019-11-30 10:35:00 Test Item Value Reference Range Interpretation Comments eGFR (test code = eGFR) 11 [facility] HospitalPmxznccTEREIBBPVS5072-96-94 10:35:00 Test Item Value Reference Range Interpretation Comments WBC (test code = WBC) 8.5 3.7-10.4 [facility] HospitalPjidjckNJMDCWVXJQ9547-67-86 10:35:00 Test Item Value Reference Range Interpretation Comments RBC (test code = RBC) 5.30 4.20-5.40 [facility] HospitalGtzzlhgRHGKOBJHXG8690-76-43 10:35:00 Test Item Value Reference Range Interpretation Comments Hgb (test code = Hgb) 13.4 12.0-16.0 [facility] HospitalHehlilyYDMJCICFOR2754-46-76 10:35:00 Test Item Value Reference Range Interpretation Comments Hct (test code = Hct) 42.5 36.0-48.0 [facility] HospitalDrudhtxJWKIIFWGNY3542-63-34 10:35:00 Test Item Value Reference Range Interpretation Comments MCV (test code = MCV) 80.1 80.0-98.0 [facility]2019-11-30 10:35:00 Test Item Value Reference Range Interpretation Comments Glucose Lvl (test code = Glucose Lvl) 254 70-99 [facility]2019-11-30 10:35:00 Test Item Value Reference Range Interpretation Comments BUN (test code = BUN) 19 7-22 [facility]2019-11-30 10:35:00 Test Item Value Reference Range Interpretation Comments Creatinine Lvl (test code = Creatinine 4.05 0.50-1.40 Lvl) [facility] HospitalKkpxinvBMDFLSPMHU9565-02-90 10:35:00 Test Item Value Reference Range Interpretation Comments MCH (test code = MCH) 25.3 pg 27.0-31.0 [facility]2019-11-30 10:35:00 Test Item Value Reference Range Interpretation Comments Sodium Lvl (test code = Sodium Lvl) 138 135-145 [facility]2019-11-30 10:35:00 Test Item Value Reference Range Interpretation Comments Potassium Lvl (test code = Potassium 4.6 3.5-5.1 Lvl) [facility]2019-11-30 10:35:00 Test Item Value Reference Range Interpretation Comments Chloride Lvl (test code = Chloride Lvl) 102 95-109 [facility]2019-11-30 10:35:00 Test Item Value Reference Range Interpretation Comments CO2 (test code = CO2) 26 24-32 [facility]2019-11-30 10:35:00 Test Item Value Reference Range Interpretation Comments AGAP (test code = AGAP) 14.6 10.0-20.0 [facility]2019-11-30 10:35:00 Test Item Value Reference Range Interpretation Comments Calcium Lvl (test code = Calcium Lvl) 8.9 8.5-10.5 [facility]2019-11-30 10:35:00 Test Item Value Reference Range Interpretation Comments Albumin Lvl (test code = Albumin Lvl) 2.7 3.5-5.0 [facility]2019-11-30 10:35:00 Test Item Value Reference Range Interpretation Comments Phosphorus (test code = Phosphorus) 5.1 2.5-4.5 [facility]2019-11-30 10:35:00 Test Item Value Reference Range Interpretation Comments eGFR (test code = eGFR) 11 [facility] HospitalJdnvlinXBIXPIGSEQ8184-27-97 10:35:00 Test Item Value Reference Range Interpretation Comments WBC (test code = WBC) 8.5 3.7-10.4 [facility] HospitalGyzqqyxUPOSUXGUDS3627-57-19 10:35:00 Test Item Value Reference Range Interpretation Comments MCHC (test code = MCHC) 31.6 32.0-36.0 [facility] HospitalYwpyhhvJGCYGBYJDW5958-85-28 10:35:00 Test Item Value Reference Range Interpretation Comments RBC (test code = RBC) 5.30 4.20-5.40 [facility] HospitalDpjetwpBOGBFGNXMQ3067-16-89 10:35:00 Test Item Value Reference Range Interpretation Comments Hgb (test code = Hgb) 13.4 12.0-16.0 [facility] HospitalBlbmhfmLMJWSAGPXV0774-91-65 10:35:00 Test Item Value Reference Range Interpretation Comments Hct (test code = Hct) 42.5 36.0-48.0 [facility] HospitalWpsroxcKRLVJRWIKT6942-02-87 10:35:00 Test Item Value Reference Range Interpretation Comments MCV (test code = MCV) 80.1 80.0-98.0 [facility] HospitalIopbaxpCPCVQOTMIR2332-36-83 10:35:00 Test Item Value Reference Range Interpretation Comments MCH (test code = MCH) 25.3 pg 27.0-31.0 [facility] HospitalPwqzsqnPBGFNYELIV9975-80-47 10:35:00 Test Item Value Reference Range Interpretation Comments MCHC (test code = MCHC) 31.6 32.0-36.0 [facility] HospitalVuvathcYRVPXPKIZL8421-76-30 10:35:00 Test Item Value Reference Range Interpretation Comments RDW (test code = RDW) 18.2 11.5-14.5 [facility] HospitalVfyzkknJHXYGYSLVP9535-93-18 10:35:00 Test Item Value Reference Range Interpretation Comments Platelet (test code = Platelet) 245 133-450 [facility] HospitalQyoweqcNTTRSXGAPV9392-94-95 10:35:00 Test Item Value Reference Range Interpretation Comments MPV (test code = MPV) 8.1 7.4-10.4 [facility] HospitalAykdjdwABEPPWCVPW3615-70-42 10:35:00 Test Item Value Reference Range Interpretation Comments Segs (test code = Segs) 58.9 45.0-75.0 [facility] HospitalNgvvjybAVNQPYJQCO7502-04-54 10:35:00 Test Item Value Reference Range Interpretation Comments RDW (test code = RDW) 18.2 11.5-14.5 [facility] HospitalJqmhvkkXDYFHXBOHF9354-47-16 10:35:00 Test Item Value Reference Range Interpretation Comments Lymphocytes (test code = Lymphocytes) 29.7 20.0-40.0 [facility] HospitalMpgfoywZLYKQTEZXQ5229-54-98 10:35:00 Test Item Value Reference Range Interpretation Comments Monocytes (test code = Monocytes) 8.3 2.0-12.0 [facility] HospitalVrfyrkyLMDHSEAPMP9742-51-05 10:35:00 Test Item Value Reference Range Interpretation Comments Eosinophils (test code = 1.5 See_Comment [A utomated message] The Eosinophils) system which ge nerated this result tra nsmitted reference range : <=4.0. The reference r henry was not used to int erpret this result as normal/abnormal . [facility] HospitalIrnyvclDKVHGBGIOK3150-20-34 10:35:00 Test Item Value Reference Range Interpretation Comments Basophils (test code = 1.6 See_Comment [Aut omated message] The Basophils) system which ge nerated this result tra nsmitted reference range : <=1.0. The reference r henry was not used to int erpret this result as normal/abnormal . [facility] HospitalDuhmhzaWUPOGXJMAK1037-13-47 10:35:00 Test Item Value Reference Range Interpretation Comments Neutrophils # (test code = Neutrophils 5.0 1.5-8.1 #) [facility] HospitalUwavtvrWXICVQQKCE5844-72-54 10:35:00 Test Item Value Reference Range Interpretation Comments Lymphocytes # (test code = Lymphocytes 2.5 1.0-5.5 #) [facility] HospitalRkpgbdjOSOCVQXGXC3070-33-49 10:35:00 Test Item Value Reference Range Interpretation Comments Monocytes # (test code 0.7 See_Comment [Aut omated message] The = Monocytes #) system which generated this result tra nsmitted reference range : <=0.8. The reference r henry was not used to int erpret this result as normal/abnormal . [facility] HospitalBbvcbqwQYIHZWERVB8901-38-91 10:35:00 Test Item Value Reference Range Interpretation Comments Eosinophils # (test code 0.1 See_Comment [A utomated message] The = Eosinophils #) system wh h generated this result tra nsmitted reference range : <=0.5. The reference r henry was not used to int erpret this result as normal/abnormal . [facility] HospitalZojteehDYTDIBLAHQ7085-15-33 10:35:00 Test Item Value Reference Range Interpretation Comments Basophils # (test code 0.1 See_Comment [Aut omated message] The = Basophils #) system which generated this result tra nsmitted reference range : <=0.2. The reference r henry was not used to int erpret this result as normal/abnormal . [facility] HospitalChyfsalUJXCWDDXET0065-31-54 10:35:00 Test Item Value Reference Range Interpretation Comments Platelet (test code = Platelet) 245 133-450 [facility] HospitalXfaaugdNQBPPNLKPI7493-74-40 10:35:00 Test Item Value Reference Range Interpretation Comments MPV (test code = MPV) 8.1 7.4-10.4 [facility] HospitalEqjqfpcNLNMMWHNIF7497-62-41 10:35:00 Test Item Value Reference Range Interpretation Comments Segs (test code = Segs) 58.9 45.0-75.0 [facility] HospitalNhfvspfYZBXFJCHMH0003-05-49 10:35:00 Test Item Value Reference Range Interpretation Comments Lymphocytes (test code = Lymphocytes) 29.7 20.0-40.0 [facility] HospitalNubgthnBOHNRHGSNA2270-97-06 10:35:00 Test Item Value Reference Range Interpretation Comments Monocytes (test code = Monocytes) 8.3 2.0-12.0 [facility] HospitalIauydkkJYBJOFOZCB4035-45-06 10:35:00 Test Item Value Reference Range Interpretation Comments Eosinophils (test code = 1.5 See_Comment [A utomated message] The Eosinophils) system which ge nerated this result tra nsmitted reference range : <=4.0. The reference r henry was not used to int erpret this result as normal/abnormal . [facility] HospitalXfpndpsHLGNUMRMDD4368-38-16 10:35:00 Test Item Value Reference Range Interpretation Comments Basophils (test code = 1.6 See_Comment [Aut omated message] The Basophils) system which ge nerated this result tra nsmitted reference range : <=1.0. The reference r henry was not used to int erpret this result as normal/abnormal . [facility] HospitalXzpobkcXPCPENIZRP4002-95-57 10:35:00 Test Item Value Reference Range Interpretation Comments Neutrophils # (test code = Neutrophils 5.0 1.5-8.1 #) [facility] HospitalFnvjnyaYZVGDNEORF2420-52-43 10:35:00 Test Item Value Reference Range Interpretation Comments Lymphocytes # (test code = Lymphocytes 2.5 1.0-5.5 #) [facility] HospitalVfixschRMBSGEILEK5725-48-90 10:35:00 Test Item Value Reference Range Interpretation Comments Monocytes # (test code 0.7 See_Comment [Aut omated message] The = Monocytes #) system which generated this result tra nsmitted reference range : <=0.8. The reference r henry was not used to int erpret this result as normal/abnormal . [facility][id number] 10:35:00 Test Item Value Reference Range Interpretation Comments Eosinophils # (test code 0.1 See_Comment [A utomated message] The = Eosinophils #) system whic h generated this result tra nsmitted reference range : <=0.5. The reference r henry was not used to int erpret this result as normal/abnormal . [facility] HospitalKhdfwgdKNJETVEXJG6049-30-73 10:35:00 Test Item Value Reference Range Interpretation Comments Basophils # (test code 0.1 See_Comment [Aut omated message] The = Basophils #) system which generated this result tra nsmitted reference range : <=0.2. The reference r henry was not used to int erpret this result as normal/abnormal . [facility]2019-11-30 10:35:00 Test Item Value Reference Range Interpretation Comments Glucose Lvl (test code = Glucose Lvl) 254 70-99 [facility]2019-11-30 10:35:00 Test Item Value Reference Range Interpretation Comments BUN (test code = BUN) 19 7-22 [facility]2019-11-30 10:35:00 Test Item Value Reference Range Interpretation Comments Creatinine Lvl (test code = Creatinine 4.05 0.50-1.40 Lvl) [facility]2019-11-30 10:35:00 Test Item Value Reference Range Interpretation Comments Sodium Lvl (test code = Sodium Lvl) 138 135-145 [facility]2019-11-30 10:35:00 Test Item Value Reference Range Interpretation Comments Potassium Lvl (test code = Potassium 4.6 3.5-5.1 Lvl) [facility]2019-11-30 10:35:00 Test Item Value Reference Range Interpretation Comments Chloride Lvl (test code = Chloride Lvl) 102 95-109 [facility]2019-11-30 10:35:00 Test Item Value Reference Range Interpretation Comments CO2 (test code = CO2) 26 24-32 [facility]2019-11-30 10:35:00 Test Item Value Reference Range Interpretation Comments AGAP (test code = AGAP) 14.6 10.0-20.0 [facility]2019-11-30 10:35:00 Test Item Value Reference Range Interpretation Comments Calcium Lvl (test code = Calcium Lvl) 8.9 8.5-10.5 [facility]2019-11-30 10:35:00 Test Item Value Reference Range Interpretation Comments Albumin Lvl (test code = Albumin Lvl) 2.7 3.5-5.0 [facility]2019-11-30 10:35:00 Test Item Value Reference Range Interpretation Comments Phosphorus (test code = Phosphorus) 5.1 2.5-4.5 [facility]2019-11-30 10:35:00 Test Item Value Reference Range Interpretation Comments eGFR (test code = eGFR) 11 [facility]SihvevmQQZCXPRQMM6369-22-16 10:35:00 Test Item Value Reference Range Interpretation Comments WBC (test code = WBC) 8.5 3.7-10.4 [facility] HospitalPmptogiMKVSIMAJAR0586-45-97 10:35:00 Test Item Value Reference Range Interpretation Comments RBC (test code = RBC) 5.30 4.20-5.40 [facility] HospitalCoyngicGQUGLKPUDS6049-23-31 10:35:00 Test Item Value Reference Range Interpretation Comments Hgb (test code = Hgb) 13.4 12.0-16.0 [facility] HospitalRonvplhFAFUJNPPAE6221-73-19 10:35:00 Test Item Value Reference Range Interpretation Comments Hct (test code = Hct) 42.5 36.0-48.0 [facility] HospitalUlrriryBRRGXPRUHX1403-41-61 10:35:00 Test Item Value Reference Range Interpretation Comments MCV (test code = MCV) 80.1 80.0-98.0 [facility] HospitalCgtgzrjYYRBYDDVRM6612-87-33 10:35:00 Test Item Value Reference Range Interpretation Comments MCH (test code = MCH) 25.3 pg 27.0-31.0 [facility] HospitalVsovjrrTDMEHPMCCK2214-26-54 10:35:00 Test Item Value Reference Range Interpretation Comments MCHC (test code = MCHC) 31.6 32.0-36.0 [facility] HospitalPaumkeeVQKLGXCZFE6918-12-13 10:35:00 Test Item Value Reference Range Interpretation Comments RDW (test code = RDW) 18.2 11.5-14.5 [place] 896749-11-30 10:35:00 Test Item Value Reference Range Interpretation Comments Platelet (test code = Platelet) 245 133-450 [facility] HospitalRwygxlpDXEGOQBSYQ6454-65-56 10:35:00 Test Item Value Reference Range Interpretation Comments MPV (test code = MPV) 8.1 7.4-10.4 [facility] HospitalJoifmoeIIWAQAKCQN0167-98-22 10:35:00 Test Item Value Reference Range Interpretation Comments Segs (test code = Segs) 58.9 45.0-75.0 [facility] HospitalXuqzxtyPBKUKMDBHS9554-66-25 10:35:00 Test Item Value Reference Range Interpretation Comments Lymphocytes (test code = Lymphocytes) 29.7 20.0-40.0 [facility] HospitalDgivjipRODEUEHEBJ7717-54-65 10:35:00 Test Item Value Reference Range Interpretation Comments Monocytes (test code = Monocytes) 8.3 2.0-12.0 [facility] HospitalPolehxoTXXYAQWYYH3576-23-22 10:35:00 Test Item Value Reference Range Interpretation Comments Eosinophils (test code = 1.5 See_Comment [A utomated message] The Eosinophils) system which ge nerated this result tra nsmitted reference range : <=4.0. The reference r henry was not used to int erpret this result as normal/abnormal . [facility] HospitalPkoflqrKXTRWBAAMA9027-90-09 10:35:00 Test Item Value Reference Range Interpretation Comments Basophils (test code = 1.6 See_Comment [Aut omated message] The Basophils) system which ge nerated this result tra nsmitted reference range : <=1.0. The reference r henry was not used to int erpret this result as normal/abnormal . [facility] HospitalDpcydnrLIUNTXVCAM0931-18-96 10:35:00 Test Item Value Reference Range Interpretation Comments Neutrophils # (test code = Neutrophils 5.0 1.5-8.1 #) [facility] HospitalFggnmcuJKLULZCPHC9021-02-95 10:35:00 Test Item Value Reference Range Interpretation Comments Lymphocytes # (test code = Lymphocytes 2.5 1.0-5.5 #) [facility] HospitalYpryiizWXNLPYHZLB4471-22-84 10:35:00 Test Item Value Reference Range Interpretation Comments Monocytes # (test code 0.7 See_Comment [Aut omated message] The = Monocytes #) system which generated this result tra nsmitted reference range : <=0.8. The reference r henry was not used to int erpret this result as normal/abnormal . [facility] HospitalJfwhsrkWVGWXBGHSZ1707-64-36 10:35:00 Test Item Value Reference Range Interpretation Comments Eosinophils # (test code 0.1 See_Comment [A utomated message] The = Eosinophils #) system whic h generated this result tra nsmitted reference range : <=0.5. The reference r henry was not used to int erpret this result as normal/abnormal . [facility] HospitalVicwitqDCUHZZHTVG1202-22-74 10:35:00 Test Item Value Reference Range Interpretation Comments Basophils # (test code 0.1 See_Comment [Aut omated message] The = Basophils #) system which generated this result tra nsmitted reference range : <=0.2. The reference r henry was not used to int erpret this result as normal/abnormal . [facility]2019-11-30 10:35:00 Test Item Value Reference Range Interpretation Comments Glucose Lvl (test code = Glucose Lvl) 254 70-99 [facility]2019-11-30 10:35:00 Test Item Value Reference Range Interpretation Comments BUN (test code = BUN) 19 7-22 [facility]2019-11-30 10:35:00 Test Item Value Reference Range Interpretation Comments Creatinine Lvl (test code = Creatinine 4.05 0.50-1.40 Lvl) [facility]2019-11-30 10:35:00 Test Item Value Reference Range Interpretation Comments Sodium Lvl (test code = Sodium Lvl) 138 135-145 [facility]2019-11-30 10:35:00 Test Item Value Reference Range Interpretation Comments Potassium Lvl (test code = Potassium 4.6 3.5-5.1 Lvl) [facility]2019-11-30 10:35:00 Test Item Value Reference Range Interpretation Comments Chloride Lvl (test code = Chloride Lvl) 102 95-109 [facility]2019-11-30 10:35:00 Test Item Value Reference Range Interpretation Comments CO2 (test code = CO2) 26 24-32 [facility]2019-11-30 10:35:00 Test Item Value Reference Range Interpretation Comments AGAP (test code = AGAP) 14.6 10.0-20.0 [facility]2019-11-30 10:35:00 Test Item Value Reference Range Interpretation Comments Calcium Lvl (test code = Calcium Lvl) 8.9 8.5-10.5 [facility]2019-11-30 10:35:00 Test Item Value Reference Range Interpretation Comments Albumin Lvl (test code = Albumin Lvl) 2.7 3.5-5.0 [facility]2019-11-30 10:35:00 Test Item Value Reference Range Interpretation Comments Phosphorus (test code = Phosphorus) 5.1 2.5-4.5 [facility]2019-11-30 10:35:00 Test Item Value Reference Range Interpretation Comments eGFR (test code = eGFR) 11 [facility] HospitalIqleokgKCAWDXVAKE9228-85-07 10:35:00 Test Item Value Reference Range Interpretation Comments WBC (test code = WBC) 8.5 3.7-10.4 [facility] HospitalJsbuzgkCXDBFEMVXD4419-71-01 10:35:00 Test Item Value Reference Range Interpretation Comments RBC (test code = RBC) 5.30 4.20-5.40 [facility] HospitalCdmuydpJQROSFXNAA1007-02-96 10:35:00 Test Item Value Reference Range Interpretation Comments Hgb (test code = Hgb) 13.4 12.0-16.0 [facility] HospitalNtouekeMNZPXYFOUP8084-38-77 10:35:00 Test Item Value Reference Range Interpretation Comments Hct (test code = Hct) 42.5 36.0-48.0 [facility] HospitalBaqopauDCWQILZHYB1069-27-32 10:35:00 Test Item Value Reference Range Interpretation Comments MCV (test code = MCV) 80.1 80.0-98.0 [facility] HospitalItkmwrjXPWECQQHAO1853-27-41 10:35:00 Test Item Value Reference Range Interpretation Comments MCH (test code = MCH) 25.3 pg 27.0-31.0 [facility] HospitalMyjfyrwNVXGWOFDHI8689-26-09 10:35:00 Test Item Value Reference Range Interpretation Comments MCHC (test code = MCHC) 31.6 32.0-36.0 [facility] HospitalNlbgriyEGUXTWZEFV5874-21-51 10:35:00 Test Item Value Reference Range Interpretation Comments RDW (test code = RDW) 18.2 11.5-14.5 [facility] HospitalRzjvcgtBDDPMHFKEB5480-62-41 10:35:00 Test Item Value Reference Range Interpretation Comments Platelet (test code = Platelet) 245 133-450 [facility] HospitalRclwoseDNGWARIQXF6435-03-98 10:35:00 Test Item Value Reference Range Interpretation Comments MPV (test code = MPV) 8.1 7.4-10.4 [facility] HospitalNiuytunKBDLVNSQAW6166-89-72 10:35:00 Test Item Value Reference Range Interpretation Comments Segs (test code = Segs) 58.9 45.0-75.0 [facility] HospitalFhxgdudZUKOBSVOHZ8349-38-11 10:35:00 Test Item Value Reference Range Interpretation Comments Lymphocytes (test code = Lymphocytes) 29.7 20.0-40.0 [facility] HospitalYdrfjsqQDQIMJLSNA6744-09-29 10:35:00 Test Item Value Reference Range Interpretation Comments Monocytes (test code = Monocytes) 8.3 2.0-12.0 [facility] HospitalWlbbycaCBUVLUVLXH1074-25-23 10:35:00 Test Item Value Reference Range Interpretation Comments Eosinophils (test code = 1.5 See_Comment [A utomated message] The Eosinophils) system which ge nerated this result tra nsmitted reference range : <=4.0. The reference r henry was not used to int erpret this result as normal/abnormal . [facility] HospitalLncffcnOUKYVYAGGO1152-07-37 10:35:00 Test Item Value Reference Range Interpretation Comments Basophils (test code = 1.6 See_Comment [Aut omated message] The Basophils) system which ge nerated this result tra nsmitted reference range : <=1.0. The reference r henry was not used to int erpret this result as normal/abnormal . [facility] HospitalFpiymcsMWTHEFRJVD5012-20-52 10:35:00 Test Item Value Reference Range Interpretation Comments Neutrophils # (test code = Neutrophils 5.0 1.5-8.1 #) [facility] HospitalCufnurzTHVDFPFEEV3766-10-26 10:35:00 Test Item Value Reference Range Interpretation Comments Lymphocytes # (test code = Lymphocytes 2.5 1.0-5.5 #) [facility] HospitalJhjwudtOKFLFWLUPH3437-23-27 10:35:00 Test Item Value Reference Range Interpretation Comments Monocytes # (test code 0.7 See_Comment [Aut omated message] The = Monocytes #) system which generated this result tra nsmitted reference range : <=0.8. The reference r henry was not used to int erpret this result as normal/abnormal . [facility] HospitalVdnhntdLDXAEQVWXY3743-09-77 10:35:00 Test Item Value Reference Range Interpretation Comments Eosinophils # (test code 0.1 See_Comment [A utomated message] The = Eosinophils #) system whic h generated this result tra nsmitted reference range : <=0.5. The reference r henry was not used to int erpret this result as normal/abnormal . [facility] HospitalJeqacerAWOKVOTTMJ3865-33-38 10:35:00 Test Item Value Reference Range Interpretation Comments Basophils # (test code 0.1 See_Comment [Aut omated message] The = Basophils #) system which generated this result tra nsmitted reference range : <=0.2. The reference r henry was not used to int erpret this result as normal/abnormal . [facility]2019-11-30 10:35:00 Test Item Value Reference Range Interpretation Comments Glucose Lvl (test code = Glucose Lvl) 254 70-99 [facility]2019-11-30 10:35:00 Test Item Value Reference Range Interpretation Comments BUN (test code = BUN) 19 7-22 [facility]2019-11-30 10:35:00 Test Item Value Reference Range Interpretation Comments Creatinine Lvl (test code = Creatinine 4.05 0.50-1.40 Lvl) [facility]2019-11-30 10:35:00 Test Item Value Reference Range Interpretation Comments Sodium Lvl (test code = Sodium Lvl) 138 135-145 [facility]2019-11-30 10:35:00 Test Item Value Reference Range Interpretation Comments Potassium Lvl (test code = Potassium 4.6 3.5-5.1 Lvl) [facility]2019-11-30 10:35:00 Test Item Value Reference Range Interpretation Comments Chloride Lvl (test code = Chloride Lvl) 102 95-109 [facility]2019-11-30 10:35:00 Test Item Value Reference Range Interpretation Comments CO2 (test code = CO2) 26 24-32 [facility]2019-11-30 10:35:00 Test Item Value Reference Range Interpretation Comments AGAP (test code = AGAP) 14.6 10.0-20.0 [facility]2019-11-30 10:35:00 Test Item Value Reference Range Interpretation Comments Calcium Lvl (test code = Calcium Lvl) 8.9 8.5-10.5 [facility]2019-11-30 10:35:00 Test Item Value Reference Range Interpretation Comments Albumin Lvl (test code = Albumin Lvl) 2.7 3.5-5.0 [facility]2019-11-30 10:35:00 Test Item Value Reference Range Interpretation Comments Phosphorus (test code = Phosphorus) 5.1 2.5-4.5 [facility]2019-11-30 10:35:00 Test Item Value Reference Range Interpretation Comments eGFR (test code = eGFR) 11 [facility] HospitalQsrzfpwTLAAPLWUHX5736-51-49 10:35:00 Test Item Value Reference Range Interpretation Comments WBC (test code = WBC) 8.5 3.7-10.4 [facility] HospitalXszodneUGMPWDLFFQ7207-59-78 10:35:00 Test Item Value Reference Range Interpretation Comments RBC (test code = RBC) 5.30 4.20-5.40 [facility] HospitalNulaharMIDDEXKWOK1571-25-58 10:35:00 Test Item Value Reference Range Interpretation Comments Hgb (test code = Hgb) 13.4 12.0-16.0 [facility] HospitalRzhbapkYLBBISAICH8117-08-90 10:35:00 Test Item Value Reference Range Interpretation Comments Hct (test code = Hct) 42.5 36.0-48.0 [facility] HospitalXkcyqonSJKNVDGCXX4799-66-20 10:35:00 Test Item Value Reference Range Interpretation Comments MCV (test code = MCV) 80.1 80.0-98.0 [facility] HospitalOzjgrrzOEYHRWOVFV3833-55-74 10:35:00 Test Item Value Reference Range Interpretation Comments MCH (test code = MCH) 25.3 pg 27.0-31.0 [facility] HospitalRzkifozGTDKRFACQY2997-96-68 10:35:00 Test Item Value Reference Range Interpretation Comments MCHC (test code = MCHC) 31.6 32.0-36.0 [facility] HospitalKmbnryqGMSPGQSBOJ1835-34-29 10:35:00 Test Item Value Reference Range Interpretation Comments RDW (test code = RDW) 18.2 11.5-14.5 [facility] HospitalCowdxwiFBVINCHQCR7050-34-63 10:35:00 Test Item Value Reference Range Interpretation Comments Platelet (test code = Platelet) 245 133450 [facility] HospitalWcsrlwnJNFRQIDVNP2793-18-96 10:35:00 Test Item Value Reference Range Interpretation Comments MPV (test code = MPV) 8.1 7.4-10.4 [facility] HospitalTdxrgwfKFYEBUMXKK7543-10-81 10:35:00 Test Item Value Reference Range Interpretation Comments Segs (test code = Segs) 58.9 45.0-75.0 [facility] HospitalAsptalxHREAHGHJSG5808-59-20 10:35:00 Test Item Value Reference Range Interpretation Comments Lymphocytes (test code = Lymphocytes) 29.7 20.0-40.0 [facility] HospitalSsuonxaNLEENARUML3186-65-82 10:35:00 Test Item Value Reference Range Interpretation Comments Monocytes (test code = Monocytes) 8.3 2.0-12.0 [facility] HospitalTvrioroQWFELLMJWN5462-14-21 10:35:00 Test Item Value Reference Range Interpretation Comments Eosinophils (test code = 1.5 See_Comment [A utomated message] The Eosinophils) system which ge nerated this result tra nsmitted reference range : <=4.0. The reference r henry was not used to int erpret this result as normal/abnormal . [facility] HospitalQyydoznUZHQOCMBNB6594-81-01 10:35:00 Test Item Value Reference Range Interpretation Comments Basophils (test code = 1.6 See_Comment [Aut omated message] The Basophils) system which ge nerated this result tra nsmitted reference range : <=1.0. The reference r henry was not used to int erpret this result as normal/abnormal . [facility] HospitalIbpsvyxWORNNKCQFU9055-64-41 10:35:00 Test Item Value Reference Range Interpretation Comments Neutrophils # (test code = Neutrophils 5.0 1.5-8.1 #) [facility] HospitalQegbaonXCBOCWYGLS1214-72-11 10:35:00 Test Item Value Reference Range Interpretation Comments Lymphocytes # (test code = Lymphocytes 2.5 1.0-5.5 #) [facility] HospitalTnymlygHNBAVZIXHP1660-40-53 10:35:00 Test Item Value Reference Range Interpretation Comments Monocytes # (test code 0.7 See_Comment [Aut omated message] The = Monocytes #) system which generated this result tra nsmitted reference range : <=0.8. The reference r henry was not used to int erpret this result as normal/abnormal . [facility] HospitalXwtzzyaMEFDBABROH8474-79-85 10:35:00 Test Item Value Reference Range Interpretation Comments Eosinophils # (test code 0.1 See_Comment [A utomated message] The = Eosinophils #) system whic h generated this result tra nsmitted reference range : <=0.5. The reference r henry was not used to int erpret this result as normal/abnormal . [facility] HospitalMqtietpHOYWMNMUBF6191-84-15 10:35:00 Test Item Value Reference Range Interpretation Comments Basophils # (test code 0.1 See_Comment [Aut omated message] The = Basophils #) system which generated this result tra nsmitted reference range : <=0.2. The reference r henry was not used to int erpret this result as normal/abnormal . [facility]2019-11-30 10:35:00 Test Item Value Reference Range Interpretation Comments Glucose Lvl (test code = Glucose Lvl) 254 70-99 [facility]2019-11-30 10:35:00 Test Item Value Reference Range Interpretation Comments BUN (test code = BUN) 19 7-22 [facility]2019-11-30 10:35:00 Test Item Value Reference Range Interpretation Comments Creatinine Lvl (test code = Creatinine 4.05 0.50-1.40 Lvl) [facility]2019-11-30 10:35:00 Test Item Value Reference Range Interpretation Comments Sodium Lvl (test code = Sodium Lvl) 138 135-145 [facility]2019-11-30 10:35:00 Test Item Value Reference Range Interpretation Comments Potassium Lvl (test code = Potassium 4.6 3.5-5.1 Lvl) [facility]2019-11-30 10:35:00 Test Item Value Reference Range Interpretation Comments Chloride Lvl (test code = Chloride Lvl) 102 95-109 [facility]2019-11-30 10:35:00 Test Item Value Reference Range Interpretation Comments CO2 (test code = CO2) 26 24-32 [facility]2019-11-30 10:35:00 Test Item Value Reference Range Interpretation Comments AGAP (test code = AGAP) 14.6 10.0-20.0 [facility]2019-11-30 10:35:00 Test Item Value Reference Range Interpretation Comments Calcium Lvl (test code = Calcium Lvl) 8.9 8.5-10.5 [facility]2019-11-30 10:35:00 Test Item Value Reference Range Interpretation Comments Albumin Lvl (test code = Albumin Lvl) 2.7 3.5-5.0 [facility]2019-11-30 10:35:00 Test Item Value Reference Range Interpretation Comments Phosphorus (test code = Phosphorus) 5.1 2.5-4.5 [facility]2019-11-30 10:35:00 Test Item Value Reference Range Interpretation Comments eGFR (test code = eGFR) 11 [facility] HospitalHjsrdrcSNLTEGZVZX4463-77-82 10:35:00 Test Item Value Reference Range Interpretation Comments WBC (test code = WBC) 8.5 3.7-10.4 [facility] HospitalXxovivbPDMWQVHEWO5427-60-62 10:35:00 Test Item Value Reference Range Interpretation Comments RBC (test code = RBC) 5.30 4.20-5.40 [facility] HospitalBwjzhauZRVQJRFWOM9584-33-01 10:35:00 Test Item Value Reference Range Interpretation Comments Hgb (test code = Hgb) 13.4 12.0-16.0 [facility] HospitalNlbdbvgODAVQARHAA4045-15-74 10:35:00 Test Item Value Reference Range Interpretation Comments Hct (test code = Hct) 42.5 36.0-48.0 [facility] HospitalFpfqgfnWOYGVIIHTY6880-90-62 10:35:00 Test Item Value Reference Range Interpretation Comments MCV (test code = MCV) 80.1 80.0-98.0 [facility] HospitalJqlhsktIGNMFWUEDG9627-31-93 10:35:00 Test Item Value Reference Range Interpretation Comments MCH (test code = MCH) 25.3 pg 27.0-31.0 [facility] HospitalPgojkylZYCEASNTDB4946-39-77 10:35:00 Test Item Value Reference Range Interpretation Comments MCHC (test code = MCHC) 31.6 32.0-36.0 [facility] HospitalQmpbyexFPIGXTESNZ2879-66-70 10:35:00 Test Item Value Reference Range Interpretation Comments RDW (test code = RDW) 18.2 11.5-14.5 [facility] HospitalBpfnaubXZILBNJFJC2115-47-20 10:35:00 Test Item Value Reference Range Interpretation Comments Platelet (test code = Platelet) 245 133-450 [facility] HospitalPeiyvgkKVZWZFPMIZ0767-59-27 10:35:00 Test Item Value Reference Range Interpretation Comments MPV (test code = MPV) 8.1 7.4-10.4 [facility] HospitalIpwwroeCTMMTEKMVU9311-46-10 10:35:00 Test Item Value Reference Range Interpretation Comments Segs (test code = Segs) 58.9 45.0-75.0 [facility]KaoxmzjVTTDRHOXWM3894-52-16 10:35:00 Test Item Value Reference Range Interpretation Comments Lymphocytes (test code = Lymphocytes) 29.7 20.0-40.0 [facility] HospitalIrzadwePEHGZLWKVX0785-46-03 10:35:00 Test Item Value Reference Range Interpretation Comments Monocytes (test code = Monocytes) 8.3 2.0-12.0 [facility] HospitalLkqohrdOBSDKDSJUN8559-00-76 10:35:00 Test Item Value Reference Range Interpretation Comments Eosinophils (test code = Eosinophils) 1.5 <=4.0 [facility] HospitalKohriynXLEJCTTPXL6571-00-89 10:35:00 Test Item Value Reference Range Interpretation Comments Basophils (test code = Basophils) 1.6 <=1.0 [facility] HospitalJqcqjjxENSQPOKCFH6633-38-58 10:35:00 Test Item Value Reference Range Interpretation Comments Neutrophils # (test code = Neutrophils 5.0 1.5-8.1 #) [facility] HospitalUwdmkhlJLFYMRIJSD6583-83-87 10:35:00 Test Item Value Reference Range Interpretation Comments Lymphocytes # (test code = Lymphocytes 2.5 1.0-5.5 #) [facility] HospitalMuuyllaCBKHLXEMYQ9336-12-69 10:35:00 Test Item Value Reference Range Interpretation Comments Monocytes # (test code = Monocytes #) 0.7 <=0.8 [facility] HospitalGfqrxwoQSWEXXILIC2471-39-13 10:35:00 Test Item Value Reference Range Interpretation Comments Eosinophils # (test code = Eosinophils 0.1 <=0.5 #) [facility] HospitalJqhlhhlALXDBFXIGN2014-45-88 10:35:00 Test Item Value Reference Range Interpretation Comments Basophils # (test code = Basophils #) 0.1 <=0.2 [facility]2019-11-30 10:35:00 Test Item Value Reference Range Interpretation Comments Glucose Lvl (test code = Glucose Lvl) 254 70-99 [facility]2019-11-30 10:35:00 Test Item Value Reference Range Interpretation Comments BUN (test code = BUN) 19 7-22 [facility]2019-11-30 10:35:00 Test Item Value Reference Range Interpretation Comments Creatinine Lvl (test code = Creatinine 4.05 0.50-1.40 Lvl) [facility]2019-11-30 10:35:00 Test Item Value Reference Range Interpretation Comments Sodium Lvl (test code = Sodium Lvl) 138 135-145 [facility]2019-11-30 10:35:00 Test Item Value Reference Range Interpretation Comments Potassium Lvl (test code = Potassium 4.6 3.5-5.1 Lvl) [facility]2019-11-30 10:35:00 Test Item Value Reference Range Interpretation Comments Chloride Lvl (test code = Chloride Lvl) 102 95-109 [facility]2019-11-30 10:35:00 Test Item Value Reference Range Interpretation Comments CO2 (test code = CO2) 26 24-32 [facility]2019-11-30 10:35:00 Test Item Value Reference Range Interpretation Comments AGAP (test code = AGAP) 14.6 10.0-20.0 [facility]2019-11-30 10:35:00 Test Item Value Reference Range Interpretation Comments Calcium Lvl (test code = Calcium Lvl) 8.9 8.5-10.5 [facility]2019-11-30 10:35:00 Test Item Value Reference Range Interpretation Comments Albumin Lvl (test code = Albumin Lvl) 2.7 3.5-5.0 [facility]2019-11-30 10:35:00 Test Item Value Reference Range Interpretation Comments Phosphorus (test code = Phosphorus) 5.1 2.5-4.5 [facility]2019-11-30 10:35:00 Test Item Value Reference Range Interpretation Comments eGFR (test code = eGFR) 11 [facility] HospitalQxtvjopLFIRGKWBKF7578-15-50 10:35:00 Test Item Value Reference Range Interpretation Comments WBC (test code = WBC) 8.5 3.7-10.4 [facility] HospitalLtfkemdYOLLURDPAD5417-26-78 10:35:00 Test Item Value Reference Range Interpretation Comments RBC (test code = RBC) 5.30 4.20-5.40 [facility] HospitalKcrkhrgIXTBHMIAMN2441-05-89 10:35:00 Test Item Value Reference Range Interpretation Comments Hgb (test code = Hgb) 13.4 12.0-16.0 [facility] HospitalPijktnsLXNNRELGDT4029-56-11 10:35:00 Test Item Value Reference Range Interpretation Comments Hct (test code = Hct) 42.5 36.0-48.0 [facility] HospitalUmdvdpiVECQBHACTV9081-78-04 10:35:00 Test Item Value Reference Range Interpretation Comments MCV (test code = MCV) 80.1 80.0-98.0 [facility] HospitalKogjhxsTNIEMAPEFR7628-73-01 10:35:00 Test Item Value Reference Range Interpretation Comments MCH (test code = MCH) 25.3 pg 27.0-31.0 [facility] HospitalRvxkeljECMHRMINDB9452-23-58 10:35:00 Test Item Value Reference Range Interpretation Comments MCHC (test code = MCHC) 31.6 32.0-36.0 [facility] HospitalDyygmowWCBKAFNIXA6965-77-97 10:35:00 Test Item Value Reference Range Interpretation Comments RDW (test code = RDW) 18.2 11.5-14.5 [facility] HospitalDkhtujzCYELNHLNMQ4499-68-83 10:35:00 Test Item Value Reference Range Interpretation Comments Platelet (test code = Platelet) 245 133-450 [facility] HospitalSjxzebwSUZXJPKZEW2063-46-40 10:35:00 Test Item Value Reference Range Interpretation Comments MPV (test code = MPV) 8.1 7.4-10.4 [facility] HospitalYxolojzRZELXWESIU3330-85-97 10:35:00 Test Item Value Reference Range Interpretation Comments Segs (test code = Segs) 58.9 45.0-75.0 [facility] HospitalEgvegbfPWQHMSSGEE1825-35-33 10:35:00 Test Item Value Reference Range Interpretation Comments Lymphocytes (test code = Lymphocytes) 29.7 20.0-40.0 [facility] HospitalGgytyqzBISTTHMACT7998-58-54 10:35:00 Test Item Value Reference Range Interpretation Comments Monocytes (test code = Monocytes) 8.3 2.0-12.0 [facility] HospitalQezanjjRTSIDEDXVB1498-06-47 10:35:00 Test Item Value Reference Range Interpretation Comments Eosinophils (test code = Eosinophils) 1.5 <=4.0 [facility] HospitalCxjzdfvFZNKDFWYRA3736-94-86 10:35:00 Test Item Value Reference Range Interpretation Comments Basophils (test code = Basophils) 1.6 <=1.0 [facility] HospitalSkzggspJUWWVCUFEY8681-80-19 10:35:00 Test Item Value Reference Range Interpretation Comments Neutrophils # (test code = Neutrophils 5.0 1.5-8.1 #) [facility] HospitalYdjauojKODXBKTYOQ1289-70-03 10:35:00 Test Item Value Reference Range Interpretation Comments Lymphocytes # (test code = Lymphocytes 2.5 1.0-5.5 #) [facility] HospitalSdoqbhxZWTPCXKRXV5046-71-85 10:35:00 Test Item Value Reference Range Interpretation Comments Monocytes # (test code = Monocytes #) 0.7 <=0.8 [place] 896749-11-30 10:35:00 Test Item Value Reference Range Interpretation Comments Eosinophils # (test code = Eosinophils 0.1 <=0.5 #) [facility] HospitalDmdzecdLRPCOBJIKF0993-22-55 10:35:00 Test Item Value Reference Range Interpretation Comments Basophils # (test code = Basophils #) 0.1 <=0.2 [facility]2019-11-30 10:35:00 Test Item Value Reference Range Interpretation Comments Glucose Lvl (test code = Glucose Lvl) 254 70-99 [facility]2019-11-30 10:35:00 Test Item Value Reference Range Interpretation Comments BUN (test code = BUN) 19 7-22 [facility]2019-11-30 10:35:00 Test Item Value Reference Range Interpretation Comments Creatinine Lvl (test code = Creatinine 4.05 0.50-1.40 Lvl) [facility]2019-11-30 10:35:00 Test Item Value Reference Range Interpretation Comments Sodium Lvl (test code = Sodium Lvl) 138 135-145 [facility]2019-11-30 10:35:00 Test Item Value Reference Range Interpretation Comments Potassium Lvl (test code = Potassium 4.6 3.5-5.1 Lvl) [facility]2019-11-30 10:35:00 Test Item Value Reference Range Interpretation Comments Chloride Lvl (test code = Chloride Lvl) 102 95-109 [facility]2019-11-30 10:35:00 Test Item Value Reference Range Interpretation Comments CO2 (test code = CO2) 26 24-32 [facility]2019-11-30 10:35:00 Test Item Value Reference Range Interpretation Comments AGAP (test code = AGAP) 14.6 10.0-20.0 [facility]2019-11-30 10:35:00 Test Item Value Reference Range Interpretation Comments Calcium Lvl (test code = Calcium Lvl) 8.9 8.5-10.5 [facility]2019-11-30 10:35:00 Test Item Value Reference Range Interpretation Comments Albumin Lvl (test code = Albumin Lvl) 2.7 3.5-5.0 [facility]2019-11-30 10:35:00 Test Item Value Reference Range Interpretation Comments Phosphorus (test code = Phosphorus) 5.1 2.5-4.5 [facility]2019-11-30 10:35:00 Test Item Value Reference Range Interpretation Comments eGFR (test code = eGFR) 11 [facility] HospitalAbuvoqdBCDDOONAQY0693-33-75 10:35:00 Test Item Value Reference Range Interpretation Comments WBC (test code = WBC) 8.5 3.7-10.4 [facility] HospitalWwwwgbdNUKOVCUYBS1585-50-80 10:35:00 Test Item Value Reference Range Interpretation Comments RBC (test code = RBC) 5.30 4.20-5.40 [facility] HospitalDyzyqsyKNJWNPUYVV8247-85-18 10:35:00 Test Item Value Reference Range Interpretation Comments Hgb (test code = Hgb) 13.4 12.0-16.0 [facility] HospitalIchlddwWKUWENUMHV8454-58-65 10:35:00 Test Item Value Reference Range Interpretation Comments Hct (test code = Hct) 42.5 36.0-48.0 [facility] HospitalOojavuzRNJJNUQXMB8111-50-86 10:35:00 Test Item Value Reference Range Interpretation Comments MCV (test code = MCV) 80.1 80.0-98.0 [facility] HospitalFutemmtDUILEERPFP0794-71-13 10:35:00 Test Item Value Reference Range Interpretation Comments MCH (test code = MCH) 25.3 pg 27.0-31.0 [facility] HospitalScjlwdyVSSMLIZNKM8331-69-78 10:35:00 Test Item Value Reference Range Interpretation Comments MCHC (test code = MCHC) 31.6 32.0-36.0 [facility] HospitalGzbyepxJJVWQBUTAJ1277-71-17 10:35:00 Test Item Value Reference Range Interpretation Comments RDW (test code = RDW) 18.2 11.5-14.5 [facility] HospitalGvjkwovWLMWLTZZJQ7693-31-39 10:35:00 Test Item Value Reference Range Interpretation Comments Platelet (test code = Platelet) 245 133-450 [facility] HospitalBvidzfyHTNSIFJRJG3245-61-27 10:35:00 Test Item Value Reference Range Interpretation Comments MPV (test code = MPV) 8.1 7.4-10.4 [facility] HospitalHfmqxcjPGECDWTIXB6366-97-24 10:35:00 Test Item Value Reference Range Interpretation Comments Segs (test code = Segs) 58.9 45.0-75.0 [facility] HospitalXujqnibDTXUZFNZJM4578-34-52 10:35:00 Test Item Value Reference Range Interpretation Comments Lymphocytes (test code = Lymphocytes) 29.7 20.0-40.0 [facility] HospitalKtyyisqHDRNCWQGYC1608-90-86 10:35:00 Test Item Value Reference Range Interpretation Comments Monocytes (test code = Monocytes) 8.3 2.0-12.0 [facility] HospitalBtqmlcjTRMJVSXFWD5467-40-47 10:35:00 Test Item Value Reference Range Interpretation Comments Eosinophils (test code = Eosinophils) 1.5 <=4.0 [facility] HospitalBmeqowdFAEPILOOTA2479-08-06 10:35:00 Test Item Value Reference Range Interpretation Comments Basophils (test code = Basophils) 1.6 <=1.0 [facility] HospitalEjtywbkTZJEUAGHWG7376-25-54 10:35:00 Test Item Value Reference Range Interpretation Comments Neutrophils # (test code = Neutrophils 5.0 1.5-8.1 #) [facility] HospitalIqcclvsIVIKJDCIDL3957-65-75 10:35:00 Test Item Value Reference Range Interpretation Comments Lymphocytes # (test code = Lymphocytes 2.5 1.0-5.5 #) [facility] HospitalNqevypyYRCLEAUMWS2557-00-50 10:35:00 Test Item Value Reference Range Interpretation Comments Monocytes # (test code = Monocytes #) 0.7 <=0.8 [facility] HospitalStzgcpqATIQMXHGBN6672-85-90 10:35:00 Test Item Value Reference Range Interpretation Comments Eosinophils # (test code = Eosinophils 0.1 <=0.5 #) [facility] HospitalTxwffvbTZOEKSVWNI0524-52-05 10:35:00 Test Item Value Reference Range Interpretation Comments Basophils # (test code = Basophils #) 0.1 <=0.2 [facility]2019-11-30 10:35:00 Test Item Value Reference Range Interpretation Comments Glucose Lvl (test code = Glucose Lvl) 254 70-99 [facility]2019-11-30 10:35:00 Test Item Value Reference Range Interpretation Comments BUN (test code = BUN) 19 7-22 [facility]2019-11-30 10:35:00 Test Item Value Reference Range Interpretation Comments Creatinine Lvl (test code = Creatinine 4.05 0.50-1.40 Lvl) [facility]2019-11-30 10:35:00 Test Item Value Reference Range Interpretation Comments Sodium Lvl (test code = Sodium Lvl) 138 135-145 [facility]2019-11-30 10:35:00 Test Item Value Reference Range Interpretation Comments Potassium Lvl (test code = Potassium 4.6 3.5-5.1 Lvl) [facility]2019-11-30 10:35:00 Test Item Value Reference Range Interpretation Comments Chloride Lvl (test code = Chloride Lvl) 102 95-109 [facility]2019-11-30 10:35:00 Test Item Value Reference Range Interpretation Comments CO2 (test code = CO2) 26 24-32 [facility]2019-11-30 10:35:00 Test Item Value Reference Range Interpretation Comments AGAP (test code = AGAP) 14.6 10.0-20.0 [facility]2019-11-30 10:35:00 Test Item Value Reference Range Interpretation Comments Calcium Lvl (test code = Calcium Lvl) 8.9 8.5-10.5 [facility]2019-11-30 10:35:00 Test Item Value Reference Range Interpretation Comments Albumin Lvl (test code = Albumin Lvl) 2.7 3.5-5.0 [facility]2019-11-30 10:35:00 Test Item Value Reference Range Interpretation Comments Phosphorus (test code = Phosphorus) 5.1 2.5-4.5 [facility]2019-11-30 10:35:00 Test Item Value Reference Range Interpretation Comments eGFR (test code = eGFR) 11 [facility]DQG[facility]XFDY0169-67-58 10:35:00 Test Item Value Reference Range Interpretation Comments WBC (test code = WBC) 8.5 3.7-10.4 [facility] HospitalCtxsaffSRQEDJQTRD6402-53-17 10:35:00 Test Item Value Reference Range Interpretation Comments RBC (test code = RBC) 5.30 4.20-5.40 [facility] HospitalZzqaygxSHAXTVUUWX3728-81-33 10:35:00 Test Item Value Reference Range Interpretation Comments Hgb (test code = Hgb) 13.4 12.0-16.0 [facility] HospitalJqrkrlwTCINXYDAUE2907-66-89 10:35:00 Test Item Value Reference Range Interpretation Comments Hct (test code = Hct) 42.5 36.0-48.0 [facility] HospitalLbqofauBYKPVLXJVX0323-99-24 10:35:00 Test Item Value Reference Range Interpretation Comments MCV (test code = MCV) 80.1 80.0-98.0 [facility] HospitalRvegahbFAZBUARYPB5825-82-81 10:35:00 Test Item Value Reference Range Interpretation Comments MCH (test code = MCH) 25.3 pg 27.0-31.0 [facility] HospitalZldubesYSDSWCHQEW3179-79-94 10:35:00 Test Item Value Reference Range Interpretation Comments MCHC (test code = MCHC) 31.6 32.0-36.0 [facility] HospitalWdwqtmpRDYRLFIKFQ4545-79-99 10:35:00 Test Item Value Reference Range Interpretation Comments RDW (test code = RDW) 18.2 11.5-14.5 [facility] HospitalSlrxcjvIQITRNGNMM6164-69-86 10:35:00 Test Item Value Reference Range Interpretation Comments Platelet (test code = Platelet) 245 133-450 [facility] HospitalDojgaviHDNJRPGFFQ9526-50-50 10:35:00 Test Item Value Reference Range Interpretation Comments MPV (test code = MPV) 8.1 7.4-10.4 [facility] HospitalMfxkajeINKBIEAWRB2255-10-82 10:35:00 Test Item Value Reference Range Interpretation Comments Segs (test code = Segs) 58.9 45.0-75.0 [facility] HospitalLvkcfbtENJOWTKRRM1857-45-91 10:35:00 Test Item Value Reference Range Interpretation Comments Lymphocytes (test code = Lymphocytes) 29.7 20.0-40.0 [facility] HospitalDtftdlrJEFYEKTAIJ5090-18-55 10:35:00 Test Item Value Reference Range Interpretation Comments Monocytes (test code = Monocytes) 8.3 2.0-12.0 [facility] HospitalQvvimtqKNOGUEFKOU3859-16-26 10:35:00 Test Item Value Reference Range Interpretation Comments Eosinophils (test code = Eosinophils) 1.5 <=4.0 [facility] HospitalBsxekbgCAAAYJSBMM9703-13-82 10:35:00 Test Item Value Reference Range Interpretation Comments Basophils (test code = Basophils) 1.6 <=1.0 [place] 896749-11-30 10:35:00 Test Item Value Reference Range Interpretation Comments Neutrophils # (test code = Neutrophils 5.0 1.5-8.1 #) [facility] HospitalGxyurgrIXUSDZZYGW7546-52-54 10:35:00 Test Item Value Reference Range Interpretation Comments Lymphocytes # (test code = Lymphocytes 2.5 1.0-5.5 #) [facility] HospitalFpbhpysJDEWDICIQC4589-22-71 10:35:00 Test Item Value Reference Range Interpretation Comments Monocytes # (test code = Monocytes #) 0.7 <=0.8 [place] 896749-11-30 10:35:00 Test Item Value Reference Range Interpretation Comments Eosinophils # (test code = Eosinophils 0.1 <=0.5 #) [place] 896749-11-30 10:35:00 Test Item Value Reference Range Interpretation Comments Basophils # (test code = Basophils #) 0.1 <=0.2 [facility]2019-11-30 10:35:00 Test Item Value Reference Range Interpretation Comments Glucose Lvl (test code = Glucose Lvl) 254 70-99 [facility]2019-11-30 10:35:00 Test Item Value Reference Range Interpretation Comments BUN (test code = BUN) 19 7-22 [facility]2019-11-30 10:35:00 Test Item Value Reference Range Interpretation Comments Creatinine Lvl (test code = Creatinine 4.05 0.50-1.40 Lvl) [facility]2019-11-30 10:35:00 Test Item Value Reference Range Interpretation Comments Sodium Lvl (test code = Sodium Lvl) 138 135-145 [facility]2019-11-30 10:35:00 Test Item Value Reference Range Interpretation Comments Potassium Lvl (test code = Potassium 4.6 3.5-5.1 Lvl) [facility]2019-11-30 10:35:00 Test Item Value Reference Range Interpretation Comments Chloride Lvl (test code = Chloride Lvl) 102 95-109 [facility]2019-11-30 10:35:00 Test Item Value Reference Range Interpretation Comments CO2 (test code = CO2) 26 24-32 [facility]2019-11-30 10:35:00 Test Item Value Reference Range Interpretation Comments AGAP (test code = AGAP) 14.6 10.0-20.0 [facility]2019-11-30 10:35:00 Test Item Value Reference Range Interpretation Comments Calcium Lvl (test code = Calcium Lvl) 8.9 8.5-10.5 [facility]2019-11-30 10:35:00 Test Item Value Reference Range Interpretation Comments Albumin Lvl (test code = Albumin Lvl) 2.7 3.5-5.0 [facility]2019-11-30 10:35:00 Test Item Value Reference Range Interpretation Comments Phosphorus (test code = Phosphorus) 5.1 2.5-4.5 [facility]2019-11-30 10:35:00 Test Item Value Reference Range Interpretation Comments eGFR (test code = eGFR) 11 [facility] HospitalGkkvvqtRRXBMYMYMV9736-15-98 10:35:00 Test Item Value Reference Range Interpretation Comments WBC (test code = WBC) 8.5 3.7-10.4 [facility] HospitalQypnvdoGUFAAKDLVZ5299-54-79 10:35:00 Test Item Value Reference Range Interpretation Comments RBC (test code = RBC) 5.30 4.20-5.40 [facility] HospitalRnhmnzfIQBWRRBTQC3366-12-44 10:35:00 Test Item Value Reference Range Interpretation Comments Hgb (test code = Hgb) 13.4 12.0-16.0 [facility] HospitalFkumfznJIUVXDPEEM1963-55-39 10:35:00 Test Item Value Reference Range Interpretation Comments Hct (test code = Hct) 42.5 36.0-48.0 [facility] HospitalBbxrgmkWJXWBBNAIL3178-58-77 10:35:00 Test Item Value Reference Range Interpretation Comments MCV (test code = MCV) 80.1 80.0-98.0 [facility] HospitalKgtbveeBPWPCNSRWE1515-76-67 10:35:00 Test Item Value Reference Range Interpretation Comments MCH (test code = MCH) 25.3 pg 27.0-31.0 [facility] HospitalWyvhllgBYYLPRLULB1251-87-62 10:35:00 Test Item Value Reference Range Interpretation Comments MCHC (test code = MCHC) 31.6 32.0-36.0 [facility] HospitalVdorwrnOFZDRYHOGO1402-77-78 10:35:00 Test Item Value Reference Range Interpretation Comments RDW (test code = RDW) 18.2 11.5-14.5 [facility] HospitalAyaslmqQSCGUWNVRE6250-02-75 10:35:00 Test Item Value Reference Range Interpretation Comments Platelet (test code = Platelet) 245 133-450 [facility] HospitalCpgisxzVLXXBIVMRF0276-77-40 10:35:00 Test Item Value Reference Range Interpretation Comments MPV (test code = MPV) 8.1 7.4-10.4 [facility] HospitalJxwswywIWVGPHFHKI6607-07-00 10:35:00 Test Item Value Reference Range Interpretation Comments Segs (test code = Segs) 58.9 45.0-75.0 [facility] HospitalRntvcmwMMQBBVBTHI3842-97-24 10:35:00 Test Item Value Reference Range Interpretation Comments Lymphocytes (test code = Lymphocytes) 29.7 20.0-40.0 [facility] HospitalDuxivazWPZAIOTBZX5687-46-67 10:35:00 Test Item Value Reference Range Interpretation Comments Monocytes (test code = Monocytes) 8.3 2.0-12.0 [facility] HospitalIzyxxpuTPJXMCBBTA3165-81-55 10:35:00 Test Item Value Reference Range Interpretation Comments Eosinophils (test code = Eosinophils) 1.5 <=4.0 [facility] HospitalEobpohvAQSTPDZYWM7273-35-88 10:35:00 Test Item Value Reference Range Interpretation Comments Basophils (test code = Basophils) 1.6 <=1.0 [facility] HospitalAyqpwijYNFLHQYDVZ6535-76-87 10:35:00 Test Item Value Reference Range Interpretation Comments Neutrophils # (test code = Neutrophils 5.0 1.5-8.1 #) [facility] HospitalYclssqsGCBJFNTXNM1848-72-65 10:35:00 Test Item Value Reference Range Interpretation Comments Lymphocytes # (test code = Lymphocytes 2.5 1.0-5.5 #) [facility] HospitalGvwqumyQEKRHZWDRL7765-84-65 10:35:00 Test Item Value Reference Range Interpretation Comments Monocytes # (test code = Monocytes #) 0.7 <=0.8 [facility] HospitalDgfjdsvCGHUKHUGMK1019-79-07 10:35:00 Test Item Value Reference Range Interpretation Comments Eosinophils # (test code = Eosinophils 0.1 <=0.5 #) [facility]WnkvkegWPUKIRMCWA0073-14-33 10:35:00 Test Item Value Reference Range Interpretation Comments Basophils # (test code = Basophils #) 0.1 <=0.2 [facility]2019-11-30 10:35:00 Test Item Value Reference Range Interpretation Comments Glucose Lvl (test code = Glucose Lvl) 254 70-99 [facility]2019-11-30 10:35:00 Test Item Value Reference Range Interpretation Comments BUN (test code = BUN) 19 7-22 [facility]2019-11-30 10:35:00 Test Item Value Reference Range Interpretation Comments Creatinine Lvl (test code = Creatinine 4.05 0.50-1.40 Lvl) [facility]2019-11-30 10:35:00 Test Item Value Reference Range Interpretation Comments Sodium Lvl (test code = Sodium Lvl) 138 135-145 [facility]2019-11-30 10:35:00 Test Item Value Reference Range Interpretation Comments Potassium Lvl (test code = Potassium 4.6 3.5-5.1 Lvl) [facility]2019-11-30 10:35:00 Test Item Value Reference Range Interpretation Comments Chloride Lvl (test code = Chloride Lvl) 102 95-109 [facility]2019-11-30 10:35:00 Test Item Value Reference Range Interpretation Comments CO2 (test code = CO2) 26 24-32 [facility]2019-11-30 10:35:00 Test Item Value Reference Range Interpretation Comments AGAP (test code = AGAP) 14.6 10.0-20.0 [facility]2019-11-30 10:35:00 Test Item Value Reference Range Interpretation Comments Calcium Lvl (test code = Calcium Lvl) 8.9 8.5-10.5 [facility]2019-11-30 10:35:00 Test Item Value Reference Range Interpretation Comments Albumin Lvl (test code = Albumin Lvl) 2.7 3.5-5.0 [facility]2019-11-30 10:35:00 Test Item Value Reference Range Interpretation Comments Phosphorus (test code = Phosphorus) 5.1 2.5-4.5 [facility]2019-11-30 10:35:00 Test Item Value Reference Range Interpretation Comments eGFR (test code = eGFR) 11 [facility]dpETPTJFGSNX7437-94-13 10:35:00 Test Item Value Reference Range Interpretation Comments WBC (test code = WBC) 8.5 3.7-10.4 [facility]WdfllvnGQBBQOPFIQ6094-63-44 10:35:00 Test Item Value Reference Range Interpretation Comments RBC (test code = RBC) 5.30 4.20-5.40 [facility] HospitalOfzqnrzYDMUVTENIX2053-30-69 10:35:00 Test Item Value Reference Range Interpretation Comments Hgb (test code = Hgb) 13.4 12.0-16.0 [facility] HospitalJqrixycWKZAXYFTAV4978-87-19 10:35:00 Test Item Value Reference Range Interpretation Comments Hct (test code = Hct) 42.5 36.0-48.0 [facility] HospitalMrcqlyeHRBTDDPCKJ5967-50-10 10:35:00 Test Item Value Reference Range Interpretation Comments MCV (test code = MCV) 80.1 80.0-98.0 [facility] HospitalZdozaxlZNMPMBELGV6305-29-84 10:35:00 Test Item Value Reference Range Interpretation Comments MCH (test code = MCH) 25.3 pg 27.0-31.0 [facility] HospitalSfbidpnIQTWFSGBGH1242-75-70 10:35:00 Test Item Value Reference Range Interpretation Comments MCHC (test code = MCHC) 31.6 32.0-36.0 [facility] HospitalFjytaxzDJUGNGLWEK3396-78-65 10:35:00 Test Item Value Reference Range Interpretation Comments RDW (test code = RDW) 18.2 11.5-14.5 [facility] HospitalPgicwasCIHKHWNPQM3212-57-75 10:35:00 Test Item Value Reference Range Interpretation Comments Platelet (test code = Platelet) 245 390-450 [facility] HospitalNjmybkyHBMURKFEHO5222-23-50 10:35:00 Test Item Value Reference Range Interpretation Comments MPV (test code = MPV) 8.1 7.4-10.4 [facility] HospitalKupvvsiXYYFYNRCVC5781-87-31 10:35:00 Test Item Value Reference Range Interpretation Comments Segs (test code = Segs) 58.9 45.0-75.0 [facility] HospitalAjaqmduHYRUEHVHZF4382-80-69 10:35:00 Test Item Value Reference Range Interpretation Comments Lymphocytes (test code = Lymphocytes) 29.7 20.0-40.0 [facility] HospitalPnsclhkGCDBDYVPWR6073-97-48 10:35:00 Test Item Value Reference Range Interpretation Comments Monocytes (test code = Monocytes) 8.3 2.0-12.0 [facility] HospitalUdqqjvgWUCGXASYOJ5456-57-60 10:35:00 Test Item Value Reference Range Interpretation Comments Eosinophils (test code = Eosinophils) 1.5 <=4.0 [facility] HospitalBbtlbseGDZPAYPPYA4759-07-47 10:35:00 Test Item Value Reference Range Interpretation Comments Basophils (test code = Basophils) 1.6 <=1.0 [facility] HospitalYhqctxlMUNAGWGECP4144-70-09 10:35:00 Test Item Value Reference Range Interpretation Comments Neutrophils # (test code = Neutrophils 5.0 1.5-8.1 #) [facility] HospitalDjfsvrbMMLUZXMCCM4663-36-48 10:35:00 Test Item Value Reference Range Interpretation Comments Lymphocytes # (test code = Lymphocytes 2.5 1.0-5.5 #) [facility] HospitalChejhkdQAFOXPXULL6169-90-98 10:35:00 Test Item Value Reference Range Interpretation Comments Monocytes # (test code = Monocytes #) 0.7 <=0.8 [facility] HospitalHpcpxpfLRJJXXVGOV4983-06-53 10:35:00 Test Item Value Reference Range Interpretation Comments Eosinophils # (test code = Eosinophils 0.1 <=0.5 #) [facility] HospitalNgwimutZQFRBQTBPK8631-19-81 10:35:00 Test Item Value Reference Range Interpretation Comments Basophils # (test code = Basophils #) 0.1 <=0.2 [facility]2019-11-30 10:35:00 Test Item Value Reference Range Interpretation Comments Glucose Lvl (test code = Glucose Lvl) 254 [facility]2019-11-30 10:35:00 Test Item Value Reference Range Interpretation Comments Glucose Lvl (test code = Glucose Lvl) 254 99 [facility]2019-11-30 10:35:00 Test Item Value Reference Range Interpretation Comments BUN (test code = BUN) 06-15 [facility]2019-11-30 10:35:00 Test Item Value Reference Range Interpretation Comments BUN (test code = BUN) 06-15 [facility]2019-11-30 10:35:00 Test Item Value Reference Range Interpretation Comments Creatinine Lvl (test code = Creatinine 4.05 0.50-1.40 Lvl) [facility]2019-11-30 10:35:00 Test Item Value Reference Range Interpretation Comments Sodium Lvl (test code = Sodium Lvl) 138 135-145 [facility]2019-11-30 10:35:00 Test Item Value Reference Range Interpretation Comments Potassium Lvl (test code = Potassium 4.6 3.5-5.1 Lvl) [facility]2019-11-30 10:35:00 Test Item Value Reference Range Interpretation Comments Chloride Lvl (test code = Chloride Lvl) 102 95-109 [facility]2019-11-30 10:35:00 Test Item Value Reference Range Interpretation Comments CO2 (test code = CO2) 26 24-32 [facility]2019-11-30 10:35:00 Test Item Value Reference Range Interpretation Comments AGAP (test code = AGAP) 14.6 10.0-20.0 [facility]2019-11-30 10:35:00 Test Item Value Reference Range Interpretation Comments Calcium Lvl (test code = Calcium Lvl) 8.9 8.5-10.5 [facility]2019-11-30 10:35:00 Test Item Value Reference Range Interpretation Comments Albumin Lvl (test code = Albumin Lvl) 2.7 3.5-5.0 [facility]2019-11-30 10:35:00 Test Item Value Reference Range Interpretation Comments Phosphorus (test code = Phosphorus) 5.1 2.5-4.5 [facility]2019-11-30 10:35:00 Test Item Value Reference Range Interpretation Comments Creatinine Lvl (test code = Creatinine 4.05 0.50-1.40 Lvl) [facility]2019-11-30 10:35:00 Test Item Value Reference Range Interpretation Comments eGFR (test code = eGFR) 11 [facility] HospitalAcrrfevHNSCUCSKFV8083-80-37 10:35:00 Test Item Value Reference Range Interpretation Comments WBC (test code = WBC) 8.5 3.7-10.4 [facility] HospitalIyrjvnjTJXABOCJOR2966-58-56 10:35:00 Test Item Value Reference Range Interpretation Comments RBC (test code = RBC) 5.30 4.20-5.40 [facility] HospitalHxasculGIXGOQPDVJ0124-16-93 10:35:00 Test Item Value Reference Range Interpretation Comments Hgb (test code = Hgb) 13.4 12.0-16.0 [facility] HospitalJahbagfZOEGZWHGFX1798-81-59 10:35:00 Test Item Value Reference Range Interpretation Comments Hct (test code = Hct) 42.5 36.0-48.0 [facility] HospitalXiztvxuLJTRNGVEOQ3721-50-15 10:35:00 Test Item Value Reference Range Interpretation Comments MCV (test code = MCV) 80.1 80.0-98.0 [facility] HospitalMletnczFPWUQKRTQS3621-16-88 10:35:00 Test Item Value Reference Range Interpretation Comments MCH (test code = MCH) 25.3 pg 27.0-31.0 [facility] HospitalDeacodyPBWOXSFXMJ0074-53-66 10:35:00 Test Item Value Reference Range Interpretation Comments MCHC (test code = MCHC) 31.6 32.0-36.0 [facility] HospitalFsfsetpZTFSNQMCXQ4053-41-66 10:35:00 Test Item Value Reference Range Interpretation Comments RDW (test code = RDW) 18.2 11.5-14.5 [facility] HospitalUwzmifcYHMSEQQNJO9555-45-66 10:35:00 Test Item Value Reference Range Interpretation Comments Platelet (test code = Platelet) 245 133-450 [facility]2019-11-30 10:35:00 Test Item Value Reference Range Interpretation Comments Sodium Lvl (test code = Sodium Lvl) 138 135-145 [facility] HospitalKkmafllLUQPRYQJMD6019-39-90 10:35:00 Test Item Value Reference Range Interpretation Comments MPV (test code = MPV) 8.1 7.4-10.4 [facility] HospitalTpyfkxaMAHCAIUFRM2648-11-06 10:35:00 Test Item Value Reference Range Interpretation Comments Segs (test code = Segs) 58.9 45.0-75.0 [facility] HospitalQhtskcdUSDALLGVUS8993-24-56 10:35:00 Test Item Value Reference Range Interpretation Comments Lymphocytes (test code = Lymphocytes) 29.7 20.0-40.0 [facility] HospitalKdpoaltABLSYWMVQO8807-34-53 10:35:00 Test Item Value Reference Range Interpretation Comments Monocytes (test code = Monocytes) 8.3 2.0-12.0 [facility] HospitalLaeesbpZOZSMDBMJA4069-97-43 10:35:00 Test Item Value Reference Range Interpretation Comments Eosinophils (test code = Eosinophils) 1.5 <=4.0 [facility] HospitalYbmtzirEUXDLEFBZI5749-87-23 10:35:00 Test Item Value Reference Range Interpretation Comments Basophils (test code = Basophils) 1.6 <=1.0 [facility] HospitalDremdsgZCOMFNXIXT3017-14-30 10:35:00 Test Item Value Reference Range Interpretation Comments Neutrophils # (test code = Neutrophils 5.0 1.5-8.1 #) [facility] HospitalRqtcijvUKZTHTLRSI1008-18-14 10:35:00 Test Item Value Reference Range Interpretation Comments Lymphocytes # (test code = Lymphocytes 2.5 1.0-5.5 #) [facility] HospitalPvyxyenCJUGBAYYVS4789-32-83 10:35:00 Test Item Value Reference Range Interpretation Comments Monocytes # (test code = Monocytes #) 0.7 <=0.8 [facility] HospitalWpvwzvbHDEWCTBYGM5132-77-01 10:35:00 Test Item Value Reference Range Interpretation Comments Eosinophils # (test code = Eosinophils 0.1 <=0.5 #) [facility]2019-11-30 10:35:00 Test Item Value Reference Range Interpretation Comments Potassium Lvl (test code = Potassium 4.6 3.5-5.1 Lvl) [facility] HospitalCodgmcpHAWNVGBWJI3299-27-52 10:35:00 Test Item Value Reference Range Interpretation Comments Basophils # (test code = Basophils #) 0.1 <=0.2 [facility]2019-11-30 10:35:00 Test Item Value Reference Range Interpretation Comments Chloride Lvl (test code = Chloride Lvl) 102 95-109 [facility]2019-11-30 10:35:00 Test Item Value Reference Range Interpretation Comments CO2 (test code = CO2) 26 24-32 [facility]2019-11-30 10:35:00 Test Item Value Reference Range Interpretation Comments AGAP (test code = AGAP) 14.6 10.0-20.0 [facility]2019-11-30 10:35:00 Test Item Value Reference Range Interpretation Comments Calcium Lvl (test code = Calcium Lvl) 8.9 8.5-10.5 [facility]2019-11-30 10:35:00 Test Item Value Reference Range Interpretation Comments Albumin Lvl (test code = Albumin Lvl) 2.7 3.5-5.0 [facility]2019-11-30 10:35:00 Test Item Value Reference Range Interpretation Comments Phosphorus (test code = Phosphorus) 5.1 2.5-4.5 [facility]2019-11-30 10:35:00 Test Item Value Reference Range Interpretation Comments eGFR (test code = eGFR) 11 [facility] HospitalTtcyepqALGANZUWKA8691-27-00 10:35:00 Test Item Value Reference Range Interpretation Comments WBC (test code = WBC) 8.5 3.7-10.4 [facility] HospitalRurajztCBWEQUZTHY8969-66-85 10:35:00 Test Item Value Reference Range Interpretation Comments RBC (test code = RBC) 5.30 4.20-5.40 [facility] HospitalLwmlsuhNARWQMVPRH4708-46-88 10:35:00 Test Item Value Reference Range Interpretation Comments Hgb (test code = Hgb) 13.4 12.0-16.0 [facility] HospitalUqjbfqlXBTYNOXWDJ6631-13-36 10:35:00 Test Item Value Reference Range Interpretation Comments Hct (test code = Hct) 42.5 36.0-48.0 [facility] HospitalKedinpwIWGOAAIWVZ5485-53-50 10:35:00 Test Item Value Reference Range Interpretation Comments MCV (test code = MCV) 80.1 80.0-98.0 [facility] HospitalJntkzwaFAHJFZQLRT9783-29-09 10:35:00 Test Item Value Reference Range Interpretation Comments MCH (test code = MCH) 25.3 pg 27.0-31.0 [facility] HospitalJppbatmFCZVBJFLGA5811-36-81 10:35:00 Test Item Value Reference Range Interpretation Comments MCHC (test code = MCHC) 31.6 32.0-36.0 [facility] HospitalMvbeekpPPIKXDLXVL1054-20-59 10:35:00 Test Item Value Reference Range Interpretation Comments RDW (test code = RDW) 18.2 11.5-14.5 [facility] HospitalHeutacrYXJDBSAFPH7631-04-26 10:35:00 Test Item Value Reference Range Interpretation Comments Platelet (test code = Platelet) 245 133-450 [facility] HospitalJluhbhbSRWXOOAQPC3829-69-73 10:35:00 Test Item Value Reference Range Interpretation Comments MPV (test code = MPV) 8.1 7.4-10.4 [facility]2019-11-30 10:35:00 Test Item Value Reference Range Interpretation Comments Glucose Lvl (test code = Glucose Lvl) 254 70-99 [facility]2019-11-30 10:35:00 Test Item Value Reference Range Interpretation Comments BUN (test code = BUN) 19 7-22 [facility]2019-11-30 10:35:00 Test Item Value Reference Range Interpretation Comments Creatinine Lvl (test code = Creatinine 4.05 0.50-1.40 Lvl) [facility]2019-11-30 10:35:00 Test Item Value Reference Range Interpretation Comments Sodium Lvl (test code = Sodium Lvl) 138 135-145 [facility]2019-11-30 10:35:00 Test Item Value Reference Range Interpretation Comments Potassium Lvl (test code = Potassium 4.6 3.5-5.1 Lvl) [facility]2019-11-30 10:35:00 Test Item Value Reference Range Interpretation Comments Chloride Lvl (test code = Chloride Lvl) 102 95-109 [facility]2019-11-30 10:35:00 Test Item Value Reference Range Interpretation Comments CO2 (test code = CO2) 26 24-32 [facility]2019-11-30 10:35:00 Test Item Value Reference Range Interpretation Comments AGAP (test code = AGAP) 14.6 10.0-20.0 [facility]2019-11-30 10:35:00 Test Item Value Reference Range Interpretation Comments Calcium Lvl (test code = Calcium Lvl) 8.9 8.5-10.5 [facility]2019-11-30 10:35:00 Test Item Value Reference Range Interpretation Comments Albumin Lvl (test code = Albumin Lvl) 2.7 3.5-5.0 [facility] HospitalGjvmixmKTQUUFCBIM7899-72-47 10:35:00 Test Item Value Reference Range Interpretation Comments Segs (test code = Segs) 58.9 45.0-75.0 [facility]2019-11-30 10:35:00 Test Item Value Reference Range Interpretation Comments Phosphorus (test code = Phosphorus) 5.1 2.5-4.5 [facility]2019-11-30 10:35:00 Test Item Value Reference Range Interpretation Comments eGFR (test code = eGFR) 11 [facility] HospitalFpitqidXJQKDHHTVU9180-66-78 10:35:00 Test Item Value Reference Range Interpretation Comments WBC (test code = WBC) 8.5 3.7-10.4 [facility] HospitalXqaegacTGPHGDZXCZ3403-19-14 10:35:00 Test Item Value Reference Range Interpretation Comments RBC (test code = RBC) 5.30 4.20-5.40 [facility] HospitalWrtebsuWSYCGKRVRS3923-11-39 10:35:00 Test Item Value Reference Range Interpretation Comments Hgb (test code = Hgb) 13.4 12.0-16.0 [facility] HospitalSukemalDDMCGYEALI9545-50-43 10:35:00 Test Item Value Reference Range Interpretation Comments Hct (test code = Hct) 42.5 36.0-48.0 [facility] HospitalSimhdfgUGZOCDXDPI3065-27-68 10:35:00 Test Item Value Reference Range Interpretation Comments MCV (test code = MCV) 80.1 80.0-98.0 [facility] HospitalVizltkaBRETCWALFN4170-54-03 10:35:00 Test Item Value Reference Range Interpretation Comments MCH (test code = MCH) 25.3 pg 27.0-31.0 [facility] HospitalRhbgfdcEKWWXOCRCF9765-84-69 10:35:00 Test Item Value Reference Range Interpretation Comments MCHC (test code = MCHC) 31.6 32.0-36.0 [facility] HospitalVjkppxhBMEBTVAHVZ4193-36-18 10:35:00 Test Item Value Reference Range Interpretation Comments RDW (test code = RDW) 18.2 11.5-14.5 [facility] HospitalOebpnweKHDJMWQQIH3474-14-39 10:35:00 Test Item Value Reference Range Interpretation Comments Lymphocytes (test code = Lymphocytes) 29.7 20.0-40.0 [facility] HospitalLyzmzoaYHAOYMLLZF1178-18-02 10:35:00 Test Item Value Reference Range Interpretation Comments Platelet (test code = Platelet) 245 133-450 [facility] HospitalIwfiwplUMAPIZQQLR1232-90-92 10:35:00 Test Item Value Reference Range Interpretation Comments MPV (test code = MPV) 8.1 7.4-10.4 [facility] HospitalVjkycffQZBFMOKZYZ1881-83-86 10:35:00 Test Item Value Reference Range Interpretation Comments Segs (test code = Segs) 58.9 45.0-75.0 [facility] HospitalWngxrexISCIHKSPKP2222-19-25 10:35:00 Test Item Value Reference Range Interpretation Comments Lymphocytes (test code = Lymphocytes) 29.7 20.0-40.0 [facility] HospitalAgjeyfvUFUQGHYYGX8777-21-56 10:35:00 Test Item Value Reference Range Interpretation Comments Monocytes (test code = Monocytes) 8.3 2.0-12.0 [facility] HospitalJnunkesKFKYVRGBEJ6551-42-38 10:35:00 Test Item Value Reference Range Interpretation Comments Eosinophils (test code = Eosinophils) 1.5 <=4.0 [facility] HospitalMxvfnztYSJWEXUNFL9836-21-58 10:35:00 Test Item Value Reference Range Interpretation Comments Basophils (test code = Basophils) 1.6 <=1.0 [facility] HospitalNtsqvllOKLMWFTYGV9884-04-27 10:35:00 Test Item Value Reference Range Interpretation Comments Neutrophils # (test code = Neutrophils 5.0 1.5-8.1 #) [facility] HospitalCfhiwrvPKBDXGTRBZ1638-13-45 10:35:00 Test Item Value Reference Range Interpretation Comments Lymphocytes # (test code = Lymphocytes 2.5 1.0-5.5 #) [facility] HospitalZurjaujFDJCWOKYXN3768-51-26 10:35:00 Test Item Value Reference Range Interpretation Comments Monocytes # (test code = Monocytes #) 0.7 <=0.8 [facility] HospitalNnvwreyYEFJHVMWJG3052-69-79 10:35:00 Test Item Value Reference Range Interpretation Comments Monocytes (test code = Monocytes) 8.3 2.0-12.0 [facility] HospitalQvxmpsqJMFYBEPUQO6716-62-38 10:35:00 Test Item Value Reference Range Interpretation Comments Eosinophils # (test code = Eosinophils 0.1 <=0.5 #) [facility] HospitalZjevddvDFOGUTBPJE5696-67-29 10:35:00 Test Item Value Reference Range Interpretation Comments Basophils # (test code = Basophils #) 0.1 <=0.2 [facility] HospitalFqhxpifEDDIRVXEAC0102-65-06 10:35:00 Test Item Value Reference Range Interpretation Comments Eosinophils (test code = 1.5 See_Comment [A utomated message] The Eosinophils) system which ge nerated this result tra nsmitted reference range : <=4.0. The reference r henry was not used to int erpret this result as normal/abnormal . [facility] HospitalDggmjszSTOYQGDWGW9546-78-37 10:35:00 Test Item Value Reference Range Interpretation Comments Basophils (test code = 1.6 See_Comment [Aut omated message] The Basophils) system which ge nerated this result tra nsmitted reference range : <=1.0. The reference r henry was not used to int erpret this result as normal/abnormal . [facility] HospitalAdbkjczURRQFDKMME4089-74-18 10:35:00 Test Item Value Reference Range Interpretation Comments Neutrophils # (test code = Neutrophils 5.0 1.5-8.1 #) [facility] HospitalArxlwbiLTPXTTUJHK9571-26-60 10:35:00 Test Item Value Reference Range Interpretation Comments Lymphocytes # (test code = Lymphocytes 2.5 1.0-5.5 #) [facility] HospitalYjhtsvxOVLFVSFBON5363-20-46 10:35:00 Test Item Value Reference Range Interpretation Comments Monocytes # (test code 0.7 See_Comment [Aut omated message] The = Monocytes #) system which generated this result tra nsmitted reference range : <=0.8. The reference r henry was not used to int erpret this result as normal/abnormal . [facility] HospitalAqmajbvZKZJXFOXCY3435-11-91 10:35:00 Test Item Value Reference Range Interpretation Comments Eosinophils # (test code 0.1 See_Comment [A utomated message] The = Eosinophils #) system whic h generated this result tra nsmitted reference range : <=0.5. The reference r henry was not used to int erpret this result as normal/abnormal . [facility] HospitalDigbhquLMBDAJYDGL1430-32-04 10:35:00 Test Item Value Reference Range Interpretation Comments Basophils # (test code 0.1 See_Comment [Aut omated message] The = Basophils #) system which generated this result tra nsmitted reference range : <=0.2. The reference r henry was not used to int erpret this result as normal/abnormal . [facility]2019-11-30 10:35:00 Test Item Value Reference Range Interpretation Comments Glucose Lvl (test code = Glucose Lvl) 254 70-99 [facility]2019-11-30 10:35:00 Test Item Value Reference Range Interpretation Comments BUN (test code = BUN) 19 7-22 [facility]2019-11-30 10:35:00 Test Item Value Reference Range Interpretation Comments Creatinine Lvl (test code = Creatinine 4.05 0.50-1.40 Lvl) [facility]2019-11-30 10:35:00 Test Item Value Reference Range Interpretation Comments Sodium Lvl (test code = Sodium Lvl) 138 135-145 [facility]2019-11-30 10:35:00 Test Item Value Reference Range Interpretation Comments Potassium Lvl (test code = Potassium 4.6 3.5-5.1 Lvl) [facility]2019-11-30 10:35:00 Test Item Value Reference Range Interpretation Comments Chloride Lvl (test code = Chloride Lvl) 102 95-109 [facility]2019-11-30 10:35:00 Test Item Value Reference Range Interpretation Comments CO2 (test code = CO2) 26 24-32 [facility]2019-11-30 10:35:00 Test Item Value Reference Range Interpretation Comments AGAP (test code = AGAP) 14.6 10.0-20.0 [facility]2019-11-30 10:35:00 Test Item Value Reference Range Interpretation Comments Calcium Lvl (test code = Calcium Lvl) 8.9 8.5-10.5 [facility]2019-11-30 10:35:00 Test Item Value Reference Range Interpretation Comments Albumin Lvl (test code = Albumin Lvl) 2.7 3.5-5.0 [facility]2019-11-30 10:35:00 Test Item Value Reference Range Interpretation Comments Phosphorus (test code = Phosphorus) 5.1 2.5-4.5 [facility]2019-11-30 10:35:00 Test Item Value Reference Range Interpretation Comments eGFR (test code = eGFR) 11 [facility]dlfixiGWLNPNXAYZ8825-12-23 10:35:00 Test Item Value Reference Range Interpretation Comments WBC (test code = WBC) 8.5 3.7-10.4 [facility]YvhzinpEHGSRJXWHB0593-38-58 10:35:00 Test Item Value Reference Range Interpretation Comments RBC (test code = RBC) 5.30 4.20-5.40 [facility] HospitalPomqobuYJYQSSAHQW3092-19-59 10:35:00 Test Item Value Reference Range Interpretation Comments Hgb (test code = Hgb) 13.4 12.0-16.0 [facility] HospitalTubrdimLBMLCOGUBW3462-09-63 10:35:00 Test Item Value Reference Range Interpretation Comments Hct (test code = Hct) 42.5 36.0-48.0 [place] 896749-11-30 10:35:00 Test Item Value Reference Range Interpretation Comments MCV (test code = MCV) 80.1 80.0-98.0 [facility] HospitalJpsvyhyNHFEALWCKI5642-72-49 10:35:00 Test Item Value Reference Range Interpretation Comments MCH (test code = MCH) 25.3 pg 27.0-31.0 [facility] HospitalTyznpwlIBVSUFPCWJ0014-48-31 10:35:00 Test Item Value Reference Range Interpretation Comments MCHC (test code = MCHC) 31.6 32.0-36.0 [facility] HospitalBrydqlnIQONOHMFAZ4908-40-64 10:35:00 Test Item Value Reference Range Interpretation Comments RDW (test code = RDW) 18.2 11.5-14.5 [facility] HospitalYyokwvhZBINKZDSIY1131-08-01 10:35:00 Test Item Value Reference Range Interpretation Comments Platelet (test code = Platelet) 245 133-450 [facility] HospitalYxkxblmQWALBPZQEE7973-40-18 10:35:00 Test Item Value Reference Range Interpretation Comments MPV (test code = MPV) 8.1 7.4-10.4 [facility] HospitalOjiaecoNXSCKONKKF2028-69-59 10:35:00 Test Item Value Reference Range Interpretation Comments Segs (test code = Segs) 58.9 45.0-75.0 [facility] HospitalRtpnxgmFCVHCDUJRV0408-10-09 10:35:00 Test Item Value Reference Range Interpretation Comments Lymphocytes (test code = Lymphocytes) 29.7 20.0-40.0 [facility] HospitalRkkdjwjOGXTBELCVH7833-95-81 10:35:00 Test Item Value Reference Range Interpretation Comments Monocytes (test code = Monocytes) 8.3 2.0-12.0 [facility] HospitalPxzmhrjWAESLGLMVA9081-58-89 10:35:00 Test Item Value Reference Range Interpretation Comments Eosinophils (test code = Eosinophils) 1.5 <=4.0 [facility] HospitalJqbkkxiLIHOWEVFBK4422-57-86 10:35:00 Test Item Value Reference Range Interpretation Comments Basophils (test code = Basophils) 1.6 <=1.0 [facility] HospitalOhsuwqsXGXHQKVLES0845-29-45 10:35:00 Test Item Value Reference Range Interpretation Comments Neutrophils # (test code = Neutrophils 5.0 1.5-8.1 #) [facility] HospitalEsxlgawHFTCWSHZHH1771-63-10 10:35:00 Test Item Value Reference Range Interpretation Comments Lymphocytes # (test code = Lymphocytes 2.5 1.0-5.5 #) [facility] HospitalChkhlrbAHNJZUDYOO9207-44-64 10:35:00 Test Item Value Reference Range Interpretation Comments Monocytes # (test code = Monocytes #) 0.7 <=0.8 [facility] HospitalQfcdkpqPJBCOADFYB5158-12-96 10:35:00 Test Item Value Reference Range Interpretation Comments Eosinophils # (test code = Eosinophils 0.1 <=0.5 #) [facility] HospitalKmpbffwXIFNKSOXYQ4128-81-88 10:35:00 Test Item Value Reference Range Interpretation Comments Basophils # (test code = Basophils #) 0.1 <=0.2 [facility]2019-11-30 10:35:00 Test Item Value Reference Range Interpretation Comments Glucose Lvl (test code = Glucose Lvl) 254 70-99 [facility]2019-11-30 10:35:00 Test Item Value Reference Range Interpretation Comments BUN (test code = BUN) 19 7-22 [facility]2019-11-30 10:35:00 Test Item Value Reference Range Interpretation Comments Creatinine Lvl (test code = Creatinine 4.05 0.50-1.40 Lvl) [facility]2019-11-30 10:35:00 Test Item Value Reference Range Interpretation Comments Sodium Lvl (test code = Sodium Lvl) 138 135-145 [facility]2019-11-30 10:35:00 Test Item Value Reference Range Interpretation Comments Potassium Lvl (test code = Potassium 4.6 3.5-5.1 Lvl) [facility]2019-11-30 10:35:00 Test Item Value Reference Range Interpretation Comments Chloride Lvl (test code = Chloride Lvl) 102 95-109 [facility]2019-11-30 10:35:00 Test Item Value Reference Range Interpretation Comments CO2 (test code = CO2) 26 24-32 [facility]2019-11-30 10:35:00 Test Item Value Reference Range Interpretation Comments AGAP (test code = AGAP) 14.6 10.0-20.0 [facility]2019-11-30 10:35:00 Test Item Value Reference Range Interpretation Comments Calcium Lvl (test code = Calcium Lvl) 8.9 8.5-10.5 [facility]2019-11-30 10:35:00 Test Item Value Reference Range Interpretation Comments Albumin Lvl (test code = Albumin Lvl) 2.7 3.5-5.0 [facility]2019-11-30 10:35:00 Test Item Value Reference Range Interpretation Comments Phosphorus (test code = Phosphorus) 5.1 2.5-4.5 [facility]2019-11-30 10:35:00 Test Item Value Reference Range Interpretation Comments eGFR (test code = eGFR) 11 [facility] HospitalXgzqjksTBRVAJDTEV1907-59-16 10:35:00 Test Item Value Reference Range Interpretation Comments WBC (test code = WBC) 8.5 3.7-10.4 [facility] HospitalHqtlooyHOIETWXHVA6927-82-25 10:35:00 Test Item Value Reference Range Interpretation Comments RBC (test code = RBC) 5.30 4.20-5.40 [facility] HospitalYgxsgkrZROVYWZHSB5372-87-67 10:35:00 Test Item Value Reference Range Interpretation Comments Hgb (test code = Hgb) 13.4 12.0-16.0 [facility] HospitalGusuzgfTRAOKNPZWQ8629-79-93 10:35:00 Test Item Value Reference Range Interpretation Comments Hct (test code = Hct) 42.5 36.0-48.0 [facility] HospitalSjdlfuxTOPGUHXMYH5978-82-65 10:35:00 Test Item Value Reference Range Interpretation Comments MCV (test code = MCV) 80.1 80.0-98.0 [facility] HospitalLejsiyjTWQQDYVSYR1483-54-52 10:35:00 Test Item Value Reference Range Interpretation Comments MCH (test code = MCH) 25.3 pg 27.0-31.0 [facility] HospitalIwojzxdTHMYIQEVEK3815-77-15 10:35:00 Test Item Value Reference Range Interpretation Comments MCHC (test code = MCHC) 31.6 32.0-36.0 [facility] HospitalXlxozkfMYLTKUPXRS5942-77-67 10:35:00 Test Item Value Reference Range Interpretation Comments RDW (test code = RDW) 18.2 11.5-14.5 [facility] HospitalPspxjaoOUQBOZYAIL0187-30-87 10:35:00 Test Item Value Reference Range Interpretation Comments Platelet (test code = Platelet) 245 133-450 [facility] HospitalQskpedfWZQZWEUJKG9427-46-65 10:35:00 Test Item Value Reference Range Interpretation Comments MPV (test code = MPV) 8.1 7.4-10.4 [facility] HospitalLkredssRRZJSBLISS3442-35-46 10:35:00 Test Item Value Reference Range Interpretation Comments Segs (test code = Segs) 58.9 45.0-75.0 [facility] HospitalNsewgbrEICAOEGFWG1833-11-66 10:35:00 Test Item Value Reference Range Interpretation Comments Lymphocytes (test code = Lymphocytes) 29.7 20.0-40.0 [facility] HospitalOixyaepUHTREVTCUU2421-06-02 10:35:00 Test Item Value Reference Range Interpretation Comments Monocytes (test code = Monocytes) 8.3 2.0-12.0 [facility] HospitalJbubtyiHJARWRSLLE5073-76-73 10:35:00 Test Item Value Reference Range Interpretation Comments Eosinophils (test code = 1.5 See_Comment [A utomated message] The Eosinophils) system which ge nerated this result tra nsmitted reference range : <=4.0. The reference r henry was not used to int erpret this result as normal/abnormal . [facility] HospitalTcranhjIYZIWRFVZW1746-33-81 10:35:00 Test Item Value Reference Range Interpretation Comments Basophils (test code = 1.6 See_Comment [Aut omated message] The Basophils) system which ge nerated this result tra nsmitted reference range : <=1.0. The reference r henry was not used to int erpret this result as normal/abnormal . [facility] HospitalNkkouzxZWEMESHHOL5073-38-26 10:35:00 Test Item Value Reference Range Interpretation Comments Neutrophils # (test code = Neutrophils 5.0 1.5-8.1 #) [facility] HospitalZbkkbilGZAMCTKSMY2769-23-49 10:35:00 Test Item Value Reference Range Interpretation Comments Lymphocytes # (test code = Lymphocytes 2.5 1.0-5.5 #) [facility] HospitalFtkmtsyNQZKGPORMW8194-66-75 10:35:00 Test Item Value Reference Range Interpretation Comments Monocytes # (test code 0.7 See_Comment [Aut omated message] The = Monocytes #) system which generated this result tra nsmitted reference range : <=0.8. The reference r henry was not used to int erpret this result as normal/abnormal . [facility] HospitalVrzdbjpCCZVIUXHUK2077-60-87 10:35:00 Test Item Value Reference Range Interpretation Comments Eosinophils # (test code 0.1 See_Comment [A utomated message] The = Eosinophils #) system whic h generated this result tra nsmitted reference range : <=0.5. The reference r henry was not used to int erpret this result as normal/abnormal . [facility] HospitalMehqgrbJUMPQFYZQX6216-64-54 10:35:00 Test Item Value Reference Range Interpretation Comments Basophils # (test code 0.1 See_Comment [Aut omated message] The = Basophils #) system which generated this result tra nsmitted reference range : <=0.2. The reference r henry was not used to int erpret this result as normal/abnormal . [facility]2019-11-30 10:35:00 Test Item Value Reference Range Interpretation Comments Glucose Lvl (test code = Glucose Lvl) 254 70-99 [facility]2019-11-30 10:35:00 Test Item Value Reference Range Interpretation Comments BUN (test code = BUN) 19 7-22 [facility]2019-11-30 10:35:00 Test Item Value Reference Range Interpretation Comments Creatinine Lvl (test code = Creatinine 4.05 0.50-1.40 Lvl) [facility]2019-11-30 10:35:00 Test Item Value Reference Range Interpretation Comments Sodium Lvl (test code = Sodium Lvl) 138 135-145 [facility]2019-11-30 10:35:00 Test Item Value Reference Range Interpretation Comments Potassium Lvl (test code = Potassium 4.6 3.5-5.1 Lvl) [facility]2019-11-30 10:35:00 Test Item Value Reference Range Interpretation Comments Chloride Lvl (test code = Chloride Lvl) 102 95-109 [facility]2019-11-30 10:35:00 Test Item Value Reference Range Interpretation Comments CO2 (test code = CO2) 26 24-32 [facility]2019-11-30 10:35:00 Test Item Value Reference Range Interpretation Comments AGAP (test code = AGAP) 14.6 10.0-20.0 [facility]2019-11-30 10:35:00 Test Item Value Reference Range Interpretation Comments Calcium Lvl (test code = Calcium Lvl) 8.9 8.5-10.5 [facility]2019-11-30 10:35:00 Test Item Value Reference Range Interpretation Comments Albumin Lvl (test code = Albumin Lvl) 2.7 3.5-5.0 [facility]2019-11-30 10:35:00 Test Item Value Reference Range Interpretation Comments Phosphorus (test code = Phosphorus) 5.1 2.5-4.5 [facility]2019-11-30 10:35:00 Test Item Value Reference Range Interpretation Comments eGFR (test code = eGFR) 11 [facility] HospitalAoosxicRRGDGHPOCL4599-93-27 10:35:00 Test Item Value Reference Range Interpretation Comments WBC (test code = WBC) 8.5 3.7-10.4 [facility] HospitalPhakbmnHWTTVSVOLQ8872-41-43 10:35:00 Test Item Value Reference Range Interpretation Comments RBC (test code = RBC) 5.30 4.20-5.40 [facility] HospitalFyhubeaENUAEOOGIH5949-30-31 10:35:00 Test Item Value Reference Range Interpretation Comments Hgb (test code = Hgb) 13.4 12.0-16.0 [facility] HospitalFediypqDHCTVJODDY3263-82-47 10:35:00 Test Item Value Reference Range Interpretation Comments Hct (test code = Hct) 42.5 36.0-48.0 [facility] HospitalPeqxlajQSHUSSFEJT7200-98-91 10:35:00 Test Item Value Reference Range Interpretation Comments MCV (test code = MCV) 80.1 80.0-98.0 [facility] HospitalJsognodHNMBQEGDXP8170-08-86 10:35:00 Test Item Value Reference Range Interpretation Comments MCH (test code = MCH) 25.3 pg 27.0-31.0 [facility] HospitalVsjzkvtJAPYJQRJHN4356-75-66 10:35:00 Test Item Value Reference Range Interpretation Comments MCHC (test code = MCHC) 31.6 32.0-36.0 [facility] HospitalFinhkjcOAXHSFSQRN1386-65-74 10:35:00 Test Item Value Reference Range Interpretation Comments RDW (test code = RDW) 18.2 11.5-14.5 [facility] HospitalJnddhnzPKUAEJDETC3328-38-29 10:35:00 Test Item Value Reference Range Interpretation Comments Platelet (test code = Platelet) 245 133-450 [facility] HospitalErjvvpfNYSIVPSCIT1868-26-81 10:35:00 Test Item Value Reference Range Interpretation Comments MPV (test code = MPV) 8.1 7.4-10.4 [facility] HospitalUgensvwDJFAXFJBEN8330-49-55 10:35:00 Test Item Value Reference Range Interpretation Comments Segs (test code = Segs) 58.9 45.0-75.0 [facility] HospitalBuoiagpKBUEKSEBNO1628-32-73 10:35:00 Test Item Value Reference Range Interpretation Comments Lymphocytes (test code = Lymphocytes) 29.7 20.0-40.0 [facility] HospitalYmiprsoIYWVFUJARE2678-08-42 10:35:00 Test Item Value Reference Range Interpretation Comments Monocytes (test code = Monocytes) 8.3 2.0-12.0 [facility] HospitalSggbmucUVDXMQZSEV3985-80-00 10:35:00 Test Item Value Reference Range Interpretation Comments Eosinophils (test code = 1.5 See_Comment [A utomated message] The Eosinophils) system which ge nerated this result tra nsmitted reference range : <=4.0. The reference r henry was not used to int erpret this result as normal/abnormal . [facility] HospitalMxoymcqPOETJSKDHT7256-65-79 10:35:00 Test Item Value Reference Range Interpretation Comments Basophils (test code = 1.6 See_Comment [Aut omated message] The Basophils) system which ge nerated this result tra nsmitted reference range : <=1.0. The reference r henry was not used to int erpret this result as normal/abnormal . [facility] HospitalXvbgrbgBMSWKVVCOY6851-07-16 10:35:00 Test Item Value Reference Range Interpretation Comments Neutrophils # (test code = Neutrophils 5.0 1.5-8.1 #) [facility] HospitalHhtustuOZOKZZXVBA9496-60-43 10:35:00 Test Item Value Reference Range Interpretation Comments Lymphocytes # (test code = Lymphocytes 2.5 1.0-5.5 #) [facility] HospitalKmywwkfJRSLRAWEUP9681-44-46 10:35:00 Test Item Value Reference Range Interpretation Comments Monocytes # (test code 0.7 See_Comment [Aut omated message] The = Monocytes #) system which generated this result tra nsmitted reference range : <=0.8. The reference r henry was not used to int erpret this result as normal/abnormal . [facility] HospitalDxagackYTQRFMVRFZ2159-04-97 10:35:00 Test Item Value Reference Range Interpretation Comments Eosinophils # (test code 0.1 See_Comment [A utomated message] The = Eosinophils #) system whic h generated this result tra nsmitted reference range : <=0.5. The reference r henry was not used to int erpret this result as normal/abnormal . [facility] HospitalInszfrsYMDUBLDBYT0181-95-08 10:35:00 Test Item Value Reference Range Interpretation Comments Basophils # (test code 0.1 See_Comment [Aut omated message] The = Basophils #) system which generated this result tra nsmitted reference range : <=0.2. The reference r henry was not used to int erpret this result as normal/abnormal . [facility]2019-11-30 10:35:00 Test Item Value Reference Range Interpretation Comments Glucose Lvl (test code = Glucose Lvl) 254 70-99 [facility]2019-11-30 10:35:00 Test Item Value Reference Range Interpretation Comments BUN (test code = BUN) 19 7-22 [facility]2019-11-30 10:35:00 Test Item Value Reference Range Interpretation Comments Creatinine Lvl (test code = Creatinine 4.05 0.50-1.40 Lvl) [facility]2019-11-30 10:35:00 Test Item Value Reference Range Interpretation Comments Sodium Lvl (test code = Sodium Lvl) 138 135-145 [facility]2019-11-30 10:35:00 Test Item Value Reference Range Interpretation Comments Potassium Lvl (test code = Potassium 4.6 3.5-5.1 Lvl) [facility]2019-11-30 10:35:00 Test Item Value Reference Range Interpretation Comments Chloride Lvl (test code = Chloride Lvl) 102 95-109 [facility]2019-11-30 10:35:00 Test Item Value Reference Range Interpretation Comments CO2 (test code = CO2) 26 24-32 [facility]2019-11-30 10:35:00 Test Item Value Reference Range Interpretation Comments AGAP (test code = AGAP) 14.6 10.0-20.0 [facility]2019-11-30 10:35:00 Test Item Value Reference Range Interpretation Comments Calcium Lvl (test code = Calcium Lvl) 8.9 8.5-10.5 [facility]2019-11-30 10:35:00 Test Item Value Reference Range Interpretation Comments Albumin Lvl (test code = Albumin Lvl) 2.7 3.5-5.0 [facility]2019-11-30 10:35:00 Test Item Value Reference Range Interpretation Comments Phosphorus (test code = Phosphorus) 5.1 2.5-4.5 [facility]2019-11-30 10:35:00 Test Item Value Reference Range Interpretation Comments eGFR (test code = eGFR) 11 [facility] HospitalFawytfeNSGZTUOFBE4939-72-25 10:35:00 Test Item Value Reference Range Interpretation Comments WBC (test code = WBC) 8.5 3.7-10.4 [facility] HospitalXtiozsnTZWIVUBFFU2432-32-67 10:35:00 Test Item Value Reference Range Interpretation Comments RBC (test code = RBC) 5.30 4.20-5.40 [facility] HospitalWicicxlPLEHEDGTUB0825-65-15 10:35:00 Test Item Value Reference Range Interpretation Comments Hgb (test code = Hgb) 13.4 12.0-16.0 [facility] HospitalSrgqgvsMZZDSDXKHR5519-27-68 10:35:00 Test Item Value Reference Range Interpretation Comments Hct (test code = Hct) 42.5 36.0-48.0 [facility] HospitalJrmfxwfNUAERUCURA3661-02-55 10:35:00 Test Item Value Reference Range Interpretation Comments MCV (test code = MCV) 80.1 80.0-98.0 [facility] HospitalFmuincvCGDCNGLLCE2884-39-81 10:35:00 Test Item Value Reference Range Interpretation Comments MCH (test code = MCH) 25.3 pg 27.0-31.0 [facility] HospitalNgymrxcIFXQOYJKFU4127-97-61 10:35:00 Test Item Value Reference Range Interpretation Comments MCHC (test code = MCHC) 31.6 32.0-36.0 [facility] HospitalAtvnbzkAJBRXBJJRV8657-33-35 10:35:00 Test Item Value Reference Range Interpretation Comments RDW (test code = RDW) 18.2 11.5-14.5 [facility] HospitalRefugbsNOMIYOXIOQ2029-01-76 10:35:00 Test Item Value Reference Range Interpretation Comments Platelet (test code = Platelet) 245 133-450 [facility] HospitalChqjbqnVRQZLIRVAH3054-13-86 10:35:00 Test Item Value Reference Range Interpretation Comments MPV (test code = MPV) 8.1 7.4-10.4 [facility] HospitalYjcbplyVFAIPPZMQO5186-40-85 10:35:00 Test Item Value Reference Range Interpretation Comments Segs (test code = Segs) 58.9 45.0-75.0 [facility] HospitalJtpuxfcUUTPYYTMBA5083-91-15 10:35:00 Test Item Value Reference Range Interpretation Comments Lymphocytes (test code = Lymphocytes) 29.7 20.0-40.0 [facility] HospitalLhprqdhAPMVDELQXK9807-58-51 10:35:00 Test Item Value Reference Range Interpretation Comments Monocytes (test code = Monocytes) 8.3 2.0-12.0 [facility] HospitalUsrrmvrJTTOAVQZBL6911-87-69 10:35:00 Test Item Value Reference Range Interpretation Comments Eosinophils (test code = 1.5 See_Comment [A utomated message] The Eosinophils) system which ge nerated this result tra nsmitted reference range : <=4.0. The reference r henry was not used to int erpret this result as normal/abnormal . [facility] HospitalOayrykoYDMSUXBNHK9176-06-42 10:35:00 Test Item Value Reference Range Interpretation Comments Basophils (test code = 1.6 See_Comment [Aut omated message] The Basophils) system which ge nerated this result tra nsmitted reference range : <=1.0. The reference r henry was not used to int erpret this result as normal/abnormal . [facility] HospitalWfhqanbLROSUYJYTB9083-34-08 10:35:00 Test Item Value Reference Range Interpretation Comments Neutrophils # (test code = Neutrophils 5.0 1.5-8.1 #) [facility] HospitalPmesugbCCOHDBDBOO2254-43-62 10:35:00 Test Item Value Reference Range Interpretation Comments Lymphocytes # (test code = Lymphocytes 2.5 1.0-5.5 #) [facility] HospitalSajywrkPBKZWWBVNA2017-37-40 10:35:00 Test Item Value Reference Range Interpretation Comments Monocytes # (test code 0.7 See_Comment [Aut omated message] The = Monocytes #) system which generated this result tra nsmitted reference range : <=0.8. The reference r henry was not used to int erpret this result as normal/abnormal . [facility] HospitalRjfudwySJBRIYPAVJ2382-77-92 10:35:00 Test Item Value Reference Range Interpretation Comments Eosinophils # (test code 0.1 See_Comment [A utomated message] The = Eosinophils #) system whic h generated this result tra nsmitted reference range : <=0.5. The reference r henry was not used to int erpret this result as normal/abnormal . [facility] HospitalPxzvhogAZUBOWLAOT8713-35-35 10:35:00 Test Item Value Reference Range Interpretation Comments Basophils # (test code 0.1 See_Comment [Aut omated message] The = Basophils #) system which generated this result tra nsmitted reference range : <=0.2. The reference r henry was not used to int erpret this result as normal/abnormal . [facility]2019-11-30 10:35:00 Test Item Value Reference Range Interpretation Comments Glucose Lvl (test code = Glucose Lvl) 254 70-99 [facility]2019-11-30 10:35:00 Test Item Value Reference Range Interpretation Comments BUN (test code = BUN) 19 7-22 [facility]2019-11-30 10:35:00 Test Item Value Reference Range Interpretation Comments Creatinine Lvl (test code = Creatinine 4.05 0.50-1.40 Lvl) [facility]2019-11-30 10:35:00 Test Item Value Reference Range Interpretation Comments Sodium Lvl (test code = Sodium Lvl) 138 135-145 [facility]2019-11-30 10:35:00 Test Item Value Reference Range Interpretation Comments Potassium Lvl (test code = Potassium 4.6 3.5-5.1 Lvl) [facility]2019-11-30 10:35:00 Test Item Value Reference Range Interpretation Comments Chloride Lvl (test code = Chloride Lvl) 102 95-109 [facility]2019-11-30 10:35:00 Test Item Value Reference Range Interpretation Comments CO2 (test code = CO2) 26 24-32 [facility] [facility]2019-11-30 10:35:00 Test Item Value Reference Range Interpretation Comments AGAP (test code = AGAP) 14.6 10.0-20.0 [facility]2019-11-30 10:35:00 Test Item Value Reference Range Interpretation Comments Calcium Lvl (test code = Calcium Lvl) 8.9 8.5-10.5 [facility]2019-11-30 10:35:00 Test Item Value Reference Range Interpretation Comments Albumin Lvl (test code = Albumin Lvl) 2.7 3.5-5.0 [facility]2019-11-30 10:35:00 Test Item Value Reference Range Interpretation Comments Phosphorus (test code = Phosphorus) 5.1 2.5-4.5 [facility]2019-11-30 10:35:00 Test Item Value Reference Range Interpretation Comments eGFR (test code = eGFR) 11 [id number] 10:35:00 Test Item Value Reference Range Interpretation Comments WBC (test code = WBC) 8.5 3.7-10.4 [facility]VpfpibmOOFIBMLLDF0489-09-39 10:35:00 Test Item Value Reference Range Interpretation Comments RBC (test code = RBC) 5.30 4.20-5.40 [facility]JsmsdepVXBVGYFBBJ2495-24-13 10:35:00 Test Item Value Reference Range Interpretation Comments Hgb (test code = Hgb) 13.4 12.0-16.0 [facility] HospitalGpxpwdyYSHXNWTROS8740-45-52 10:35:00 Test Item Value Reference Range Interpretation Comments Hct (test code = Hct) 42.5 36.0-48.0 [facility] HospitalDsjqctdISZWZMUHYM9522-03-62 10:35:00 Test Item Value Reference Range Interpretation Comments MCV (test code = MCV) 80.1 80.0-98.0 [facility]YrcnwiiOFVDILXPMC7854-77-11 10:35:00 Test Item Value Reference Range Interpretation Comments MCH (test code = MCH) 25.3 pg 27.0-31.0 [facility] HospitalTraodcnQTBHLEBFBT9252-00-49 10:35:00 Test Item Value Reference Range Interpretation Comments MCHC (test code = MCHC) 31.6 32.0-36.0 [facility] HospitalXmqnqjyOEXHTOVQLY4684-73-49 10:35:00 Test Item Value Reference Range Interpretation Comments RDW (test code = RDW) 18.2 11.5-14.5 [facility] HospitalYzjehpuEXPYQHDFKJ1489-49-29 10:35:00 Test Item Value Reference Range Interpretation Comments Platelet (test code = Platelet) 245 325-450 [facility] HospitalFiuhrppKBVEEYCQBT9500-13-82 10:35:00 Test Item Value Reference Range Interpretation Comments MPV (test code = MPV) 8.1 7.4-10.4 [facility] HospitalNfckqcnMYEIWSFANW7455-47-20 10:35:00 Test Item Value Reference Range Interpretation Comments Segs (test code = Segs) 58.9 45.0-75.0 [facility] HospitalTtfgxivLRUYEWUAUG3245-85-59 10:35:00 Test Item Value Reference Range Interpretation Comments Lymphocytes (test code = Lymphocytes) 29.7 20.0-40.0 [facility] HospitalTdqztssWPPPOBIVXM0709-16-94 10:35:00 Test Item Value Reference Range Interpretation Comments Monocytes (test code = Monocytes) 8.3 2.0-12.0 [facility] HospitalRdxspfzZRWXNKCCCQ8065-39-37 10:35:00 Test Item Value Reference Range Interpretation Comments Eosinophils (test code = Eosinophils) 1.5 <=4.0 [facility] HospitalUxmumdcFHPQVARJBS4053-79-97 10:35:00 Test Item Value Reference Range Interpretation Comments Basophils (test code = Basophils) 1.6 <=1.0 [facility] HospitalKcmpshnKRTSDLCNRU9649-54-31 10:35:00 Test Item Value Reference Range Interpretation Comments Neutrophils # (test code = Neutrophils 5.0 1.5-8.1 #) [facility] HospitalMvlbdybEFMWVVVEMN7981-95-35 10:35:00 Test Item Value Reference Range Interpretation Comments Lymphocytes # (test code = Lymphocytes 2.5 1.0-5.5 #) [facility] HospitalZojjsauYCVCOYCYNC8661-79-94 10:35:00 Test Item Value Reference Range Interpretation Comments Monocytes # (test code = Monocytes #) 0.7 <=0.8 [facility] HospitalZkppolnFNHSISMKFU7167-71-47 10:35:00 Test Item Value Reference Range Interpretation Comments Eosinophils # (test code = Eosinophils 0.1 <=0.5 #) [facility] HospitalBflkpljUMIGFDHJHP4539-00-38 10:35:00 Test Item Value Reference Range Interpretation Comments Basophils # (test code = Basophils #) 0.1 <=0.2 [facility] [id number] 01:40:00 Test Item Value Reference Range Interpretation Comments MRSA by PCR (test Negative (10/23/19 7:40 code = MRSA by PCR) PM) [facility] HospitalBnaswqqNUXYLWIRKW3788-41-32 01:40:00 Test Item Value Reference Range Interpretation Comments Hep Bs Ab (test code = Hep Bs Ab) no gt [facility]BA[facility] - [id number] 01:40:00 Test Item Value Reference Range Interpretation Comments MRSA by PCR (test Negative (10/23/19 7:40 code = MRSA by PCR) PM) [facility] CenterGnjlxfgHXBZZHLFDV2649-55-09 01:40:00 Test Item Value Reference Range Interpretation Comments Hep Bs Ab (test code = Hep Bs Ab) no [facility] [id number] 01:40:00 Test Item Value Reference Range Interpretation Comments MRSA by PCR (test Negative (10/23/19 7:40 code = MRSA by PCR) PM) [facility] CenterLdmodoaNWLDRUAWOA0727-34-66 01:40:00 Test Item Value Reference Range Interpretation Comments Hep Bs Ab (test code = Hep Bs Ab) no [facility] [id number] 01:40:00 Test Item Value Reference Range Interpretation Comments MRSA by PCR (test Negative (10/23/19 7:40 code = MRSA by PCR) PM) [facility] CenterVhmwmueWYAOPVRIZJ8741-09-16 01:40:00 Test Item Value Reference Range Interpretation Comments Hep Bs Ab (test code = Hep Bs Ab) no [facility] - [id number] 01:40:00 Test Item Value Reference Range Interpretation Comments MRSA by PCR (test Negative (10/23/19 7:40 code = MRSA by PCR) PM) [facility] CenterBkcrubiEJTXEQPSKZ4189-16-99 01:40:00 Test Item Value Reference Range Interpretation Comments Hep Bs Ab (test code = Hep Bs Ab) no [facility] - [id number] 01:40:00 Test Item Value Reference Range Interpretation Comments MRSA by PCR (test Negative (10/23/19 7:40 code = MRSA by PCR) PM) [facility] CenterB[id number] 01:40:00 Test Item Value Reference Range Interpretation Comments Hep Bs Ab (test code = Hep Bs Ab) no [facility] - [id number] 01:40:00 Test Item Value Reference Range Interpretation Comments MRSA by PCR (test Negative (10/23/19 7:40 code = MRSA by PCR) PM) [facility] CenterWuwnwsqJPWXHGYZPC3831-89-67 01:40:00 Test Item Value Reference Range Interpretation Comments Hep Bs Ab (test code = Hep Bs Ab) no [facility] - [id number] 01:40:00 Test Item Value Reference Range Interpretation Comments MRSA by PCR (test Negative (10/23/19 7:40 code = MRSA by PCR) PM) [facility] CenterYdcqtkvBYJSKGKKUG3173-44-27 01:40:00 Test Item Value Reference Range Interpretation Comments Hep Bs Ab (test code = Hep Bs Ab) no [facility] - [id number] 01:40:00 Test Item Value Reference Range Interpretation Comments MRSA by PCR (test Negative (10/23/19 7:40 code = MRSA by PCR) PM) [facility] CenterVoljtpxFYDZLZJLSJ0916-60-44 01:40:00 Test Item Value Reference Range Interpretation Comments Hep Bs Ab (test code = Hep Bs Ab) no [facility] - [id number] 01:40:00 Test Item Value Reference Range Interpretation Comments MRSA by PCR (test Negative (10/23/19 7:40 code = MRSA by PCR) PM) [facility] CenterYyvmibbUSSLJMMBBC9906-29-45 01:40:00 Test Item Value Reference Range Interpretation Comments Hep Bs Ab (test code = Hep Bs Ab) no [facility] - [id number] 01:40:00 Test Item Value Reference Range Interpretation Comments MRSA by PCR (test Negative (10/23/19 7:40 code = MRSA by PCR) PM) [facility] CenterAunskykKJLZXDJKZE7238-03-20 01:40:00 Test Item Value Reference Range Interpretation Comments Hep Bs Ab (test code = Hep Bs Ab) no [facility] - [id number] 01:40:00 Test Item Value Reference Range Interpretation Comments MRSA by PCR (test Negative (10/23/19 7:40 code = MRSA by PCR) PM) [facility] CenterNjkxnmyDCCWZWJQLO1294-55-65 01:40:00 Test Item Value Reference Range Interpretation Comments Hep Bs Ab (test code = Hep Bs Ab) no [facility] - [id number] 01:40:00 Test Item Value Reference Range Interpretation Comments MRSA by PCR (test Negative (10/23/19 7:40 code = MRSA by PCR) PM) [facility] CenterKclzwkoINJLWLPRKM2311-10-78 01:40:00 Test Item Value Reference Range Interpretation Comments Hep Bs Ab (test code = Hep Bs Ab) no [facility] - [id number] 01:40:00 Test Item Value Reference Range Interpretation Comments MRSA by PCR (test Negative (10/23/19 7:40 code = MRSA by PCR) PM) [facility] Cent[id number] 01:40:00 Test Item Value Reference Range Interpretation Comments Hep Bs Ab (test code = Hep Bs Ab) no [facility] - [id number] 01:40:00 Test Item Value Reference Range Interpretation Comments MRSA by PCR (test Negative (10/23/19 7:40 code = MRSA by PCR) PM) [facility] Cent[id number] 01:40:00 Test Item Value Reference Range Interpretation Comments Hep Bs Ab (test code = Hep Bs Ab) [facility] [id number] 01:40:00 Test Item Value Reference Range Interpretation Comments MRSA by PCR (test Negative (10/23/19 7:40 code = MRSA by PCR) PM) [facility] CenterDgzasaxZJJVTPIBSS8665-06-63 01:40:00 Test Item Value Reference Range Interpretation Comments Hep Bs Ab (test code = Hep Bs Ab) no [facility] - [id number] 01:40:00 Test Item Value Reference Range Interpretation Comments MRSA by PCR (test Negative (10/23/19 7:40 code = MRSA by PCR) PM) [facility] [id number] 01:40:00 Test Item Value Reference Range Interpretation Comments Hep Bs Ab (test code = Hep Bs Ab) no [facility] - [id number] 01:40:00 Test Item Value Reference Range Interpretation Comments MRSA by PCR (test Negative (10/23/19 7:40 code = MRSA by PCR) PM) [facility] [id number] 01:40:00 Test Item Value Reference Range Interpretation Comments Hep Bs Ab (test code = Hep Bs Ab) no [facility] [id number] 01:40:00 Test Item Value Reference Range Interpretation Comments MRSA by PCR (test Negative (10/23/19 7:40 code = MRSA by PCR) PM) [facility] [id number] 01:40:00 Test Item Value Reference Range Interpretation Comments Hep Bs Ab (test code = Hep Bs Ab) [facility] [id number] 01:40:00 Test Item Value Reference Range Interpretation Comments MRSA by PCR (test Negative (10/23/19 7:40 code = MRSA by PCR) PM) [id number] 01:40:00 Test Item Value Reference Range Interpretation Comments Hep Bs Ab (test code = Hep Bs Ab) [facility]t [facility] - [id number] 01:40:00 Test Item Value Reference Range Interpretation Comments MRSA by PCR (test Negative (10/23/19 7:40 code = MRSA by PCR) PM) [facility] HospitalMiedgnoHDDUVWZVFF4718-08-01 01:40:00 Test Item Value Reference Range Interpretation Comments Hep Bs Ab (test code = Hep Bs Ab) no gt [facility] Hos[id number] 23:51:00 Test Item Value Reference Range Interpretation Comments Hep Bs Ag (test code Negative *NA*(10/23/19 = Hep Bs Ag) 5:51 PM) [facility] Cent[id number] 23:51:00 Test Item Value Reference Range Interpretation Comments Hep Bs Ag (test code Negative *NA*(10/23/19 = Hep Bs Ag) 5:51 PM) [facility] [id number] 23:51:00 Test Item Value Reference Range Interpretation Comments Hep Bs Ag (test code Negative *NA*(10/23/19 = Hep Bs Ag) 5:51 PM) [facility] Hospit[id number] 23:51:00 Test Item Value Reference Range Interpretation Comments Hep Bs Ag (test code Negative *NA*(10/23/19 = Hep Bs Ag) 5:51 PM) [facility] C[id number] 23:51:00 Test Item Value Reference Range Interpretation Comments Hep Bs Ag (test code Negative *NA*(10/23/19 = Hep Bs Ag) 5:51 PM) [facility] [id number] 23:51:00 Test Item Value Reference Range Interpretation Comments Hep Bs Ag (test code Negative *NA*(10/23/19 = Hep Bs Ag) 5:51 PM) [facility] Hos[id number] 23:51:00 Test Item Value Reference Range Interpretation Comments Hep Bs Ag (test code Negative *NA*(10/23/19 = Hep Bs Ag) 5:51 PM) [facility] C[id number] 23:51:00 Test Item Value Reference Range Interpretation Comments Hep Bs Ag (test code Negative *NA*(10/23/19 = Hep Bs Ag) 5:51 PM) [facility] [id number] 23:51:00 Test Item Value Reference Range Interpretation Comments Hep Bs Ag (test code Negative *NA*(10/23/19 = Hep Bs Ag) 5:51 PM) [facility] [id number] 23:51:00 Test Item Value Reference Range Interpretation Comments Hep Bs Ag (test code Negative *NA*(10/23/19 = Hep Bs Ag) 5:51 PM) [facility] [id number] 23:51:00 Test Item Value Reference Range Interpretation Comments Hep Bs Ag (test code Negative *NA*(10/23/19 = Hep Bs Ag) 5:51 PM) [facility] Cent[id number] 23:51:00 Test Item Value Reference Range Interpretation Comments Hep Bs Ag (test code Negative *NA*(10/23/19 = Hep Bs Ag) 5:51 PM) [facility] C[id number] 23:51:00 Test Item Value Reference Range Interpretation Comments Hep Bs Ag (test code Negative *NA*(10/23/19 = Hep Bs Ag) 5:51 PM) [facility] [id number] 23:51:00 Test Item Value Reference Range Interpretation Comments Hep Bs Ag (test code Negative *NA*(10/23/19 = Hep Bs Ag) 5:51 PM) [facility] Cent[id number] 23:51:00 Test Item Value Reference Range Interpretation Comments Hep Bs Ag (test code Negative *NA*(10/23/19 = Hep Bs Ag) 5:51 PM) [facility] [id number] 23:51:00 Test Item Value Reference Range Interpretation Comments Hep Bs Ag (test code Negative *NA*(10/23/19 = Hep Bs Ag) 5:51 PM) [facility] Cent[id number] 23:51:00 Test Item Value Reference Range Interpretation Comments Hep Bs Ag (test code Negative *NA*(10/23/19 = Hep Bs Ag) 5:51 PM) [facility] HospitalHfnmmpqMGYMTAVENY7747-87-77 23:51:00 Test Item Value Reference Range Interpretation Comments Hep Bs Ag (test code Negative *NA*(10/23/19 = Hep Bs Ag) 5:51 PM) [facility] Hospit[id number] 23:51:00 Test Item Value Reference Range Interpretation Comments Hep Bs Ag (test code Negative *NA*(10/23/19 = Hep Bs Ag) 5:51 PM) [facility] HospitalSuotggmCGMCKZUXHF9435-37-34 23:51:00 Test Item Value Reference Range Interpretation Comments Hep Bs Ag (test code Negative *NA*(10/23/19 = Hep Bs Ag) 5:51 PM) [facility] HospitalGtlvourECUHHGTPLG0629-35-76 23:51:00 Test Item Value Reference Range Interpretation Comments Hep Bs Ag (test code Negative *NA*(10/23/19 = Hep Bs Ag) 5:51 PM) [facility]2019-11-29 18:04:00 Test Item Value Reference Range Interpretation Comments Source Respiratory Nasophrngl Swb Panel PCR (test code = *NA*(10/23/19 12:04 Source Respiratory PM) Panel PCR) [facility]2019-11-29 18:04:00 Test Item Value Reference Range Interpretation Comments Influenza A PCR (test Negative *NA*(10/23/19 code = Influenza A PCR) 12:04 PM) [facility]2019-11-29 18:04:00 Test Item Value Reference Range Interpretation Comments Influenza B PCR (test Negative *NA*(10/23/19 code = Influenza B PCR) 12:04 PM) [facility]2019-11-29 18:04:00 Test Item Value Reference Range Interpretation Comments RSV PCR (test code = Negative *NA*(10/23/19 RSV PCR) 12:04 PM) [facility]2019-11-29 18:04:00 Test Item Value Reference Range Interpretation Comments Source Respiratory Nasophrngl Swb Panel PCR (test code = *NA*(10/23/19 12:04 Source Respiratory PM) Panel PCR) [facility]2019-11-29 18:04:00 Test Item Value Reference Range Interpretation Comments Influenza A PCR (test Negative *NA*(10/23/19 code = Influenza A PCR) 12:04 PM) [facility]2019-11-29 18:04:00 Test Item Value Reference Range Interpretation Comments Influenza B PCR (test Negative *NA*(10/23/19 code = Influenza B PCR) 12:04 PM) [facility]2019-11-29 18:04:00 Test Item Value Reference Range Interpretation Comments RSV PCR (test code = Negative *NA*(10/23/19 RSV PCR) 12:04 PM) [facility]2019-11-29 18:04:00 Test Item Value Reference Range Interpretation Comments Source Respiratory Nasophrngl Swb Panel PCR (test code = *NA*(10/23/19 12:04 Source Respiratory PM) Panel PCR) [facility]2019-11-29 18:04:00 Test Item Value Reference Range Interpretation Comments Influenza A PCR (test Negative *NA*(10/23/19 code = Influenza A PCR) 12:04 PM) [facility]2019-11-29 18:04:00 Test Item Value Reference Range Interpretation Comments Influenza B PCR (test Negative *NA*(10/23/19 code = Influenza B PCR) 12:04 PM) [facility]2019-11-29 18:04:00 Test Item Value Reference Range Interpretation Comments RSV PCR (test code = Negative *NA*(10/23/19 RSV PCR) 12:04 PM) [facility]2019-11-29 18:04:00 Test Item Value Reference Range Interpretation Comments Source Respiratory Nasophrngl Swb Panel PCR (test code = *NA*(10/23/19 12:04 Source Respiratory PM) Panel PCR) [facility]2019-11-29 18:04:00 Test Item Value Reference Range Interpretation Comments Influenza A PCR (test Negative *NA*(10/23/19 code = Influenza A PCR) 12:04 PM) [facility]2019-11-29 18:04:00 Test Item Value Reference Range Interpretation Comments Influenza B PCR (test Negative *NA*(10/23/19 code = Influenza B PCR) 12:04 PM) [facility]2019-11-29 18:04:00 Test Item Value Reference Range Interpretation Comments RSV PCR (test code = Negative *NA*(10/23/19 RSV PCR) 12:04 PM) [facility]2019-11-29 18:04:00 Test Item Value Reference Range Interpretation Comments Source Respiratory Nasophrngl Swb Panel PCR (test code = *NA*(10/23/19 12:04 Source Respiratory PM) Panel PCR) [facility]2019-11-29 18:04:00 Test Item Value Reference Range Interpretation Comments Influenza A PCR (test Negative *NA*(10/23/19 code = Influenza A PCR) 12:04 PM) [facility]2019-11-29 18:04:00 Test Item Value Reference Range Interpretation Comments Influenza B PCR (test Negative *NA*(10/23/19 code = Influenza B PCR) 12:04 PM) [facility]2019-11-29 18:04:00 Test Item Value Reference Range Interpretation Comments RSV PCR (test code = Negative *NA*(10/23/19 RSV PCR) 12:04 PM) [facility]2019-11-29 18:04:00 Test Item Value Reference Range Interpretation Comments Source Respiratory Nasophrngl Swb Panel PCR (test code = *NA*(10/23/19 12:04 Source Respiratory PM) Panel PCR) [facility]2019-11-29 18:04:00 Test Item Value Reference Range Interpretation Comments Influenza A PCR (test Negative *NA*(10/23/19 code = Influenza A PCR) 12:04 PM) [facility]2019-11-29 18:04:00 Test Item Value Reference Range Interpretation Comments Influenza B PCR (test Negative *NA*(10/23/19 code = Influenza B PCR) 12:04 PM) [facility]2019-11-29 18:04:00 Test Item Value Reference Range Interpretation Comments RSV PCR (test code = Negative *NA*(10/23/19 RSV PCR) 12:04 PM) [facility]2019-11-29 18:04:00 Test Item Value Reference Range Interpretation Comments Source Respiratory Nasophrngl Swb Panel PCR (test code = *NA*(10/23/19 12:04 Source Respiratory PM) Panel PCR) [facility]2019-11-29 18:04:00 Test Item Value Reference Range Interpretation Comments Influenza A PCR (test Negative *NA*(10/23/19 code = Influenza A PCR) 12:04 PM) [facility]2019-11-29 18:04:00 Test Item Value Reference Range Interpretation Comments Influenza B PCR (test Negative *NA*(10/23/19 code = Influenza B PCR) 12:04 PM) [facility]2019-11-29 18:04:00 Test Item Value Reference Range Interpretation Comments RSV PCR (test code = Negative *NA*(10/23/19 RSV PCR) 12:04 PM) [facility]2019-11-29 18:04:00 Test Item Value Reference Range Interpretation Comments Source Respiratory Nasophrngl Swb Panel PCR (test code = *NA*(10/23/19 12:04 Source Respiratory PM) Panel PCR) [facility]2019-11-29 18:04:00 Test Item Value Reference Range Interpretation Comments Influenza A PCR (test Negative *NA*(10/23/19 code = Influenza A PCR) 12:04 PM) [facility]2019-11-29 18:04:00 Test Item Value Reference Range Interpretation Comments Influenza B PCR (test Negative *NA*(10/23/19 code = Influenza B PCR) 12:04 PM) [facility]2019-11-29 18:04:00 Test Item Value Reference Range Interpretation Comments RSV PCR (test code = Negative *NA*(10/23/19 RSV PCR) 12:04 PM) [facility]2019-11-29 18:04:00 Test Item Value Reference Range Interpretation Comments Source Respiratory Nasophrngl Swb Panel PCR (test code = *NA*(10/23/19 12:04 Source Respiratory PM) Panel PCR) [facility]2019-11-29 18:04:00 Test Item Value Reference Range Interpretation Comments Influenza A PCR (test Negative *NA*(10/23/19 code = Influenza A PCR) 12:04 PM) [facility]2019-11-29 18:04:00 Test Item Value Reference Range Interpretation Comments Influenza B PCR (test Negative *NA*(10/23/19 code = Influenza B PCR) 12:04 PM) [facility] [facility] 18:04:00 Test Item Value Reference Range Interpretation Comments RSV PCR (test code = Negative *NA*(10/23/19 RSV PCR) 12:04 PM) [facility]2019-11-29 18:04:00 Test Item Value Reference Range Interpretation Comments Source Respiratory Nasophrngl Swb Panel PCR (test code = *NA*(10/23/19 12:04 Source Respiratory PM) Panel PCR) [facility]2019-11-29 18:04:00 Test Item Value Reference Range Interpretation Comments Influenza A PCR (test Negative *NA*(10/23/19 code = Influenza A PCR) 12:04 PM) [facility]2019-11-29 18:04:00 Test Item Value Reference Range Interpretation Comments Influenza B PCR (test Negative *NA*(10/23/19 code = Influenza B PCR) 12:04 PM) [facility]2019-11-29 18:04:00 Test Item Value Reference Range Interpretation Comments RSV PCR (test code = Negative *NA*(10/23/19 RSV PCR) 12:04 PM) [facility]2019-11-29 18:04:00 Test Item Value Reference Range Interpretation Comments Source Respiratory Nasophrngl Swb Panel PCR (test code = *NA*(10/23/19 12:04 Source Respiratory PM) Panel PCR) [facility]2019-11-29 18:04:00 Test Item Value Reference Range Interpretation Comments Influenza A PCR (test Negative *NA*(10/23/19 code = Influenza A PCR) 12:04 PM) [facility]2019-11-29 18:04:00 Test Item Value Reference Range Interpretation Comments Influenza B PCR (test Negative *NA*(10/23/19 code = Influenza B PCR) 12:04 PM) [facility]2019-11-29 18:04:00 Test Item Value Reference Range Interpretation Comments RSV PCR (test code = Negative *NA*(10/23/19 RSV PCR) 12:04 PM) [facility]2019-11-29 18:04:00 Test Item Value Reference Range Interpretation Comments Source Respiratory Nasophrngl Swb Panel PCR (test code = *NA*(10/23/19 12:04 Source Respiratory PM) Panel PCR) [facility]2019-11-29 18:04:00 Test Item Value Reference Range Interpretation Comments Influenza A PCR (test Negative *NA*(10/23/19 code = Influenza A PCR) 12:04 PM) [facility]2019-11-29 18:04:00 Test Item Value Reference Range Interpretation Comments Influenza B PCR (test Negative *NA*(10/23/19 code = Influenza B PCR) 12:04 PM) [facility]2019-11-29 18:04:00 Test Item Value Reference Range Interpretation Comments RSV PCR (test code = Negative *NA*(10/23/19 RSV PCR) 12:04 PM) [facility]2019-11-29 18:04:00 Test Item Value Reference Range Interpretation Comments Source Respiratory Nasophrngl Swb Panel PCR (test code = *NA*(10/23/19 12:04 Source Respiratory PM) Panel PCR) [facility]2019-11-29 18:04:00 Test Item Value Reference Range Interpretation Comments Influenza A PCR (test Negative *NA*(10/23/19 code = Influenza A PCR) 12:04 PM) [facility]2019-11-29 18:04:00 Test Item Value Reference Range Interpretation Comments Influenza B PCR (test Negative *NA*(10/23/19 code = Influenza B PCR) 12:04 PM) [facility]2019-11-29 18:04:00 Test Item Value Reference Range Interpretation Comments RSV PCR (test code = Negative *NA*(10/23/19 RSV PCR) 12:04 PM) [facility]2019-11-29 18:04:00 Test Item Value Reference Range Interpretation Comments Source Respiratory Nasophrngl Swb Panel PCR (test code = *NA*(10/23/19 12:04 Source Respiratory PM) Panel PCR) [facility]2019-11-29 18:04:00 Test Item Value Reference Range Interpretation Comments Influenza A PCR (test Negative *NA*(10/23/19 code = Influenza A PCR) 12:04 PM) [facility]2019-11-29 18:04:00 Test Item Value Reference Range Interpretation Comments Influenza B PCR (test Negative *NA*(10/23/19 code = Influenza B PCR) 12:04 PM) [facility]2019-11-29 18:04:00 Test Item Value Reference Range Interpretation Comments RSV PCR (test code = Negative *NA*(10/23/19 RSV PCR) 12:04 PM) [facility]2019-11-29 18:04:00 Test Item Value Reference Range Interpretation Comments Source Respiratory Nasophrngl Swb Panel PCR (test code = *NA*(10/23/19 12:04 Source Respiratory PM) Panel PCR) [facility]2019-11-29 18:04:00 Test Item Value Reference Range Interpretation Comments Influenza A PCR (test Negative *NA*(10/23/19 code = Influenza A PCR) 12:04 PM) [facility]2019-11-29 18:04:00 Test Item Value Reference Range Interpretation Comments Influenza B PCR (test Negative *NA*(10/23/19 code = Influenza B PCR) 12:04 PM) [facility]2019-11-29 18:04:00 Test Item Value Reference Range Interpretation Comments RSV PCR (test code = Negative *NA*(10/23/19 RSV PCR) 12:04 PM) [facility]2019-11-29 18:04:00 Test Item Value Reference Range Interpretation Comments Source Respiratory Nasophrngl Swb Panel PCR (test code = *NA*(10/23/19 12:04 Source Respiratory PM) Panel PCR) [facility]2019-11-29 18:04:00 Test Item Value Reference Range Interpretation Comments Influenza A PCR (test Negative *NA*(10/23/19 code = Influenza A PCR) 12:04 PM) [facility]2019-11-29 18:04:00 Test Item Value Reference Range Interpretation Comments Influenza B PCR (test Negative *NA*(10/23/19 code = Influenza B PCR) 12:04 PM) [facility] [id number] 18:04:00 Test Item Value Reference Range Interpretation Comments RSV PCR (test code = Negative *NA*(10/23/19 RSV PCR) 12:04 PM) [facility]2019-11-29 18:04:00 Test Item Value Reference Range Interpretation Comments Source Respiratory Nasophrngl Swb Panel PCR (test code = *NA*(10/23/19 12:04 Source Respiratory PM) Panel PCR) [facility]2019-11-29 18:04:00 Test Item Value Reference Range Interpretation Comments Influenza A PCR (test Negative *NA*(10/23/19 code = Influenza A PCR) 12:04 PM) [facility]2019-11-29 18:04:00 Test Item Value Reference Range Interpretation Comments Influenza B PCR (test Negative *NA*(10/23/19 code = Influenza B PCR) 12:04 PM) [facility]2019-11-29 18:04:00 Test Item Value Reference Range Interpretation Comments RSV PCR (test code = Negative *NA*(10/23/19 RSV PCR) 12:04 PM) [facility]2019-11-29 18:04:00 Test Item Value Reference Range Interpretation Comments Source Respiratory Nasophrngl Swb Panel PCR (test code = *NA*(10/23/19 12:04 Source Respiratory PM) Panel PCR) [facility]2019-11-29 18:04:00 Test Item Value Reference Range Interpretation Comments Influenza A PCR (test Negative *NA*(10/23/19 code = Influenza A PCR) 12:04 PM) [facility]2019-11-29 18:04:00 Test Item Value Reference Range Interpretation Comments Influenza B PCR (test Negative *NA*(10/23/19 code = Influenza B PCR) 12:04 PM) [facility]2019-11-29 18:04:00 Test Item Value Reference Range Interpretation Comments RSV PCR (test code = Negative *NA*(10/23/19 RSV PCR) 12:04 PM) [facility]2019-11-29 18:04:00 Test Item Value Reference Range Interpretation Comments Source Respiratory Nasophrngl Swb Panel PCR (test code = *NA*(10/23/19 12:04 Source Respiratory PM) Panel PCR) [facility]2019-11-29 18:04:00 Test Item Value Reference Range Interpretation Comments Influenza A PCR (test Negative *NA*(10/23/19 code = Influenza A PCR) 12:04 PM) [facility]2019-11-29 18:04:00 Test Item Value Reference Range Interpretation Comments Influenza B PCR (test Negative *NA*(10/23/19 code = Influenza B PCR) 12:04 PM) [facility]2019-11-29 18:04:00 Test Item Value Reference Range Interpretation Comments RSV PCR (test code = Negative *NA*(10/23/19 RSV PCR) 12:04 PM) [facility]2019-11-29 18:04:00 Test Item Value Reference Range Interpretation Comments Source Respiratory Nasophrngl Swb Panel PCR (test code = *NA*(10/23/19 12:04 Source Respiratory PM) Panel PCR) [facility]2019-11-29 18:04:00 Test Item Value Reference Range Interpretation Comments Influenza A PCR (test Negative *NA*(10/23/19 code = Influenza A PCR) 12:04 PM) [facility]2019-11-29 18:04:00 Test Item Value Reference Range Interpretation Comments Influenza B PCR (test Negative *NA*(10/23/19 code = Influenza B PCR) 12:04 PM) [facility]2019-11-29 18:04:00 Test Item Value Reference Range Interpretation Comments RSV PCR (test code = Negative *NA*(10/23/19 RSV PCR) 12:04 PM) [facility]2019-11-29 18:04:00 Test Item Value Reference Range Interpretation Comments Source Respiratory Nasophrngl Swb Panel PCR (test code = *NA*(10/23/19 12:04 Source Respiratory PM) Panel PCR) [facility]2019-11-29 18:04:00 Test Item Value Reference Range Interpretation Comments Influenza A PCR (test Negative *NA*(10/23/19 code = Influenza A PCR) 12:04 PM) [id number] 18:04:00 Test Item Value Reference Range Interpretation Comments Influenza B PCR (test Negative *NA*(10/23/19 code = Influenza B PCR) 12:04 PM) [facility] [id number] 18:04:00 Test Item Value Reference Range Interpretation Comments RSV PCR (test code = Negative *NA*(10/23/19 RSV PCR) 12:04 PM) [facility] [id number] 17:18:00 Test Item Value Reference Range Interpretation Comments Magnesium Lvl (test code = Magnesium 2.1 1.8-2.4 Lvl) [facility] [id number] 17:18:00 Test Item Value Reference Range Interpretation Comments Hgb A1C (test code = Hgb A1C) 7.7 [facility] [id number] 17:18:00 Test Item Value Reference Range Interpretation Comments Magnesium Lvl (test code = Magnesium 2.1 1.8-2.4 Lvl) [facility] [id number] 17:18:00 Test Item Value Reference Range Interpretation Comments Hgb A1C (test code = Hgb A1C) 7.7 [facility] [id number] 17:18:00 Test Item Value Reference Range Interpretation Comments Magnesium Lvl (test code = Magnesium 2.1 1.8-2.4 Lvl) [facility] [id number] 17:18:00 Test Item Value Reference Range Interpretation Comments Hgb A1C (test code = Hgb A1C) 7.7 [facility] [id number] 17:18:00 Test Item Value Reference Range Interpretation Comments Magnesium Lvl (test code = Magnesium 2.1 1.8-2.4 Lvl) [facility] [id number] 17:18:00 Test Item Value Reference Range Interpretation Comments Hgb A1C (test code = Hgb A1C) 7.7 [facility] [id number] 17:18:00 Test Item Value Reference Range Interpretation Comments Magnesium Lvl (test code = Magnesium 2.1 1.8-2.4 Lvl) [facility]2019-11-29 17:18:00 Test Item Value Reference Range Interpretation Comments Hgb A1C (test code = Hgb A1C) 7.7 [facility]2019-11-29 17:18:00 Test Item Value Reference Range Interpretation Comments Magnesium Lvl (test code = Magnesium 2.1 1.8-2.4 Lvl) [facility]2019-11-29 17:18:00 Test Item Value Reference Range Interpretation Comments Hgb A1C (test code = Hgb A1C) 7.7 [facility]2019-11-29 17:18:00 Test Item Value Reference Range Interpretation Comments Magnesium Lvl (test code = Magnesium 2.1 1.8-2.4 Lvl) [facility]2019-11-29 17:18:00 Test Item Value Reference Range Interpretation Comments Hgb A1C (test code = Hgb A1C) 7.7 [facility]2019-11-29 17:18:00 Test Item Value Reference Range Interpretation Comments Magnesium Lvl (test code = Magnesium 2.1 1.8-2.4 Lvl) [facility]2019-11-29 17:18:00 Test Item Value Reference Range Interpretation Comments Hgb A1C (test code = Hgb A1C) 7.7 [facility]2019-11-29 17:18:00 Test Item Value Reference Range Interpretation Comments Magnesium Lvl (test code = Magnesium 2.1 1.8-2.4 Lvl) [facility]2019-11-29 17:18:00 Test Item Value Reference Range Interpretation Comments Hgb A1C (test code = Hgb A1C) 7.7 [facility]2019-11-29 17:18:00 Test Item Value Reference Range Interpretation Comments Magnesium Lvl (test code = Magnesium 2.1 1.8-2.4 Lvl) [facility]2019-11-29 17:18:00 Test Item Value Reference Range Interpretation Comments Hgb A1C (test code = Hgb A1C) 7.7 [facility]2019-11-29 17:18:00 Test Item Value Reference Range Interpretation Comments Magnesium Lvl (test code = Magnesium 2.1 1.8-2.4 Lvl) [facility]2019-11-29 17:18:00 Test Item Value Reference Range Interpretation Comments Hgb A1C (test code = Hgb A1C) 7.7 [facility]2019-11-29 17:18:00 Test Item Value Reference Range Interpretation Comments Magnesium Lvl (test code = Magnesium 2.1 1.8-2.4 Lvl) [facility]2019-11-29 17:18:00 Test Item Value Reference Range Interpretation Comments Hgb A1C (test code = Hgb A1C) 7.7 [facility]2019-11-29 17:18:00 Test Item Value Reference Range Interpretation Comments Magnesium Lvl (test code = Magnesium 2.1 1.8-2.4 Lvl) [facility]2019-11-29 17:18:00 Test Item Value Reference Range Interpretation Comments Hgb A1C (test code = Hgb A1C) 7.7 [facility]2019-11-29 17:18:00 Test Item Value Reference Range Interpretation Comments Magnesium Lvl (test code = Magnesium 2.1 1.8-2.4 Lvl) [facility]2019-11-29 17:18:00 Test Item Value Reference Range Interpretation Comments Hgb A1C (test code = Hgb A1C) 7.7 [facility]2019-11-29 17:18:00 Test Item Value Reference Range Interpretation Comments Magnesium Lvl (test code = Magnesium 2.1 1.8-2.4 Lvl) [facility]2019-11-29 17:18:00 Test Item Value Reference Range Interpretation Comments Hgb A1C (test code = Hgb A1C) 7.7 [facility]2019-11-29 17:18:00 Test Item Value Reference Range Interpretation Comments Magnesium Lvl (test code = Magnesium 2.1 1.8-2.4 Lvl) [facility]2019-11-29 17:18:00 Test Item Value Reference Range Interpretation Comments Hgb A1C (test code = Hgb A1C) 7.7 [facility]2019-11-29 17:18:00 Test Item Value Reference Range Interpretation Comments Magnesium Lvl (test code = Magnesium 2.1 1.8-2.4 Lvl) [facility]2019-11-29 17:18:00 Test Item Value Reference Range Interpretation Comments Hgb A1C (test code = Hgb A1C) 7.7 [facility] [id number] 17:18:00 Test Item Value Reference Range Interpretation Comments Magnesium Lvl (test code = Magnesium 2.1 1.8-2.4 Lvl) [facility] [id number] 17:18:00 Test Item Value Reference Range Interpretation Comments Hgb A1C (test code = Hgb A1C) 7.7 [facility] [id number] 17:18:00 Test Item Value Reference Range Interpretation Comments Magnesium Lvl (test code = Magnesium 2.1 1.8-2.4 Lvl) [facility] [id number] 17:18:00 Test Item Value Reference Range Interpretation Comments Hgb A1C (test code = Hgb A1C) 7.7 [facility] [id number] 17:18:00 Test Item Value Reference Range Interpretation Comments Magnesium Lvl (test code = Magnesium 2.1 1.8-2.4 Lvl) [facility] [id number] 17:18:00 Test Item Value Reference Range Interpretation Comments Hgb A1C (test code = Hgb A1C) 7.7 [facility] [id number] 17:18:00 Test Item Value Reference Range Interpretation Comments Magnesium Lvl (test code = Magnesium 2.1 1.8-2.4 Lvl) [facility] [id number] 17:18:00 Test Item Value Reference Range Interpretation Comments Hgb A1C (test code = Hgb A1C) 7.7 [facility] [id number] 10:41:00 Test Item Value Reference Range Interpretation Comments U Amph Scr (test code Negative *NA*(10/23/19 = U Amph Scr) 4:41 AM) [facility] [id number] 10:41:00 Test Item Value Reference Range Interpretation Comments U Regine Scr (test code Negative *NA*(10/23/19 = U Regine Scr) 4:41 AM) [facility] [id number] 10:41:00 Test Item Value Reference Range Interpretation Comments U Benzodiaz Scr (test Negative *NA*(10/23/19 code = U Benzodiaz Scr) 4:41 AM) [facility] [id number] 10:41:00 Test Item Value Reference Range Interpretation Comments U Cocaine Scr (test Negative *NA*(10/23/19 code = U Cocaine Scr) 4:41 AM) [facility] [id number] 10:41:00 Test Item Value Reference Range Interpretation Comments U Cannab Scr (test Negative *NA*(10/23/19 code = U Cannab Scr) 4:41 AM) [facility] [id number] 10:41:00 Test Item Value Reference Range Interpretation Comments U Opiate Scr (test Positive *ABN*(10/23/19 code = U Opiate Scr) 4:41 AM) [facility] [id number] 10:41:00 Test Item Value Reference Range Interpretation Comments U Phencyclidine Scr (test Negative code = U Phencyclidine *NA*(10/23/19 4:41 Scr) AM) [facility] [id number] 10:41:00 Test Item Value Reference Range Interpretation Comments UDS Note (test code = See Note (10/23/19 4:41 UDS Note) AM) [facility] [id number] 10:41:00 Test Item Value Reference Range Interpretation Comments UA Turbidity (test code = Clear (10/23/19 4:41 UA Turbidity) AM) [facility] [id number] 10:41:00 Test Item Value Reference Range Interpretation Comments UA Spec Grav (test code = UA Spec 1.016 1 Grav) [facility] [id number] 10:41:00 Test Item Value Reference Range Interpretation Comments UA pH (test code = UA pH) 7.0 1 5.0-8.0 [facility] [id number] 10:41:00 Test Item Value Reference Range Interpretation Comments UA Protein (test code = UA >=300 mg/dL Protein) [facility] [id number] 10:41:00 Test Item Value Reference Range Interpretation Comments UA Bili (test code = Negative *NA*(10/23/19 UA Bili) 4:41 AM) [facility] [id number] 10:41:00 Test Item Value Reference Range Interpretation Comments UA Blood (test code = Small *ABN*(10/23/19 UA Blood) 4:41 AM) [facility] [id number] 10:41:00 Test Item Value Reference Range Interpretation Comments UA Nitrite (test code Negative (10/23/19 4:41 = UA Nitrite) AM) [facility] [id number] 10:41:00 Test Item Value Reference Range Interpretation Comments UA Leuk Est (test Negative (10/23/19 4:41 code = UA Leuk Est) AM) [facility] [id number] 10:41:00 Test Item Value Reference Range Interpretation Comments UA WBC (test code = 1 See_Comment [Automa vikki message] The UA WBC) system which ge nerated this result transmit vikki reference range : <=5. The reference range was not used to interpr et this result as cyndee l/abnormal. [facility] [id number] 10:41:00 Test Item Value Reference Range Interpretation Comments UA RBC (test code = 28 See_Comment [Automa vikki message] The UA RBC) system which ge nerated this result transmit vikki reference range : <=2. The reference range was not used to interpr et this result as cyndee l/abnormal. [facility] [id number] 10:41:00 Test Item Value Reference Range Interpretation Comments UA Sq Epi (test code = UA Sq Epi) None Seen [facility] AND [id number] 10:41:00 Test Item Value Reference Range Interpretation Comments UA Color (test code = UA Color) Straw [facility] AND [id number] 10:41:00 Test Item Value Reference Range Interpretation Comments UA Glucose (test code = UA Glucose) 500 [facility] [id number] 10:41:00 Test Item Value Reference Range Interpretation Comments UA Ketones (test code = UA Ketones) Negative [facility] [id number] 10:41:00 Test Item Value Reference Range Interpretation Comments UA Urobilinogen (test code = UA <=1.0 mg/dL 0.1-1.0 Urobilinogen) [facility] [id number] 10:41:00 Test Item Value Reference Range Interpretation Comments U Amph Scr (test code Negative *NA*(10/23/19 = U Amph Scr) 4:41 AM) [facility] [id number] 10:41:00 Test Item Value Reference Range Interpretation Comments U Regine Scr (test code Negative *NA*(10/23/19 = U Regine Scr) 4:41 AM) [facility] [id number] 10:41:00 Test Item Value Reference Range Interpretation Comments U Benzodiaz Scr (test Negative *NA*(10/23/19 code = U Benzodiaz Scr) 4:41 AM) [facility] [id number] 10:41:00 Test Item Value Reference Range Interpretation Comments U Cocaine Scr (test Negative *NA*(10/23/19 code = U Cocaine Scr) 4:41 AM) [facility] [id number] 10:41:00 Test Item Value Reference Range Interpretation Comments U Cannab Scr (test Negative *NA*(10/23/19 code = U Cannab Scr) 4:41 AM) [facility] [id number] 10:41:00 Test Item Value Reference Range Interpretation Comments U Opiate Scr (test Positive *ABN*(10/23/19 code = U Opiate Scr) 4:41 AM) [facility] [id number] 10:41:00 Test Item Value Reference Range Interpretation Comments U Phencyclidine Scr (test Negative code = U Phencyclidine *NA*(10/23/19 4:41 Scr) AM) [facility] [id number] 10:41:00 Test Item Value Reference Range Interpretation Comments UDS Note (test code = See Note (10/23/19 4:41 UDS Note) AM) [facility] [id number] 10:41:00 Test Item Value Reference Range Interpretation Comments UA Turbidity (test code = Clear (10/23/19 4:41 UA Turbidity) AM) [facility] [id number] 10:41:00 Test Item Value Reference Range Interpretation Comments UA Spec Grav (test code = UA Spec 1.016 1 Grav) [facility] [id number] 10:41:00 Test Item Value Reference Range Interpretation Comments UA pH (test code = UA pH) 7.0 1 5.0-8.0 [facility] [id number] 10:41:00 Test Item Value Reference Range Interpretation Comments UA Protein (test code = UA >=300 mg/dL Protein) [facility] AND [id number] 10:41:00 Test Item Value Reference Range Interpretation Comments UA Bili (test code = Negative *NA*(10/23/19 UA Bili) 4:41 AM) [facility] AND [id number] 10:41:00 Test Item Value Reference Range Interpretation Comments UA Blood (test code = Small *ABN*(10/23/19 UA Blood) 4:41 AM) [facility] AND [id number] 10:41:00 Test Item Value Reference Range Interpretation Comments UA Nitrite (test code Negative (10/23/19 4:41 = UA Nitrite) AM) [facility] [facility] [id number] 10:41:00 Test Item Value Reference Range Interpretation Comments UA Leuk Est (test Negative (10/23/19 4:41 code = UA Leuk Est) AM) [facility] AND [id number] 10:41:00 Test Item Value Reference Range Interpretation Comments UA WBC (test code = 1 See_Comment [Automa vikki message] The UA WBC) system which ge nerated this result transmit vikki reference range : <=5. The reference range was not used to interpr et this result as cyndee l/abnormal. [facility] AND [id number] 10:41:00 Test Item Value Reference Range Interpretation Comments UA RBC (test code = 28 See_Comment [Automa vikki message] The UA RBC) system which ge nerated this result transmit vikki reference range : <=2. The reference range was not used to interpr et this result as cyndee l/abnormal. [facility] AND [id number] 10:41:00 Test Item Value Reference Range Interpretation Comments UA Sq Epi (test code = UA Sq Epi) None Seen [facility] AND [id number] 10:41:00 Test Item Value Reference Range Interpretation Comments UA Color (test code = UA Color) Straw [facility] AND [id number] 10:41:00 Test Item Value Reference Range Interpretation Comments UA Glucose (test code = UA Glucose) 500 [facility] AND [id number] 10:41:00 Test Item Value Reference Range Interpretation Comments UA Ketones (test code = [facility]A Ketones) Negative [facility] [id number] 10:41:00 Test Item Value Reference Range Interpretation Comments UA Urobilinogen (test code = UA <=1.0 mg/dL 0.1-1.0 Urobilinogen) [facility] [id number] 10:41:00 Test Item Value Reference Range Interpretation Comments U Amph Scr (test code Negative *NA*(10/23/19 = U Amph Scr) 4:41 AM) [facility] [id number] 10:41:00 Test Item Value Reference Range Interpretation Comments U Regine Scr (test code Negative *NA*(10/23/19 = U Regine Scr) 4:41 AM) [facility] [id number] 10:41:00 Test Item Value Reference Range Interpretation Comments U Benzodiaz Scr (test Negative *NA*(10/23/19 code = U Benzodiaz Scr) 4:41 AM) [facility] [id number] 10:41:00 Test Item Value Reference Range Interpretation Comments U Cocaine Scr (test Negative *NA*(10/23/19 code = U Cocaine Scr) 4:41 AM) [facility] [id number] 10:41:00 Test Item Value Reference Range Interpretation Comments U Cannab Scr (test Negative *NA*(10/23/19 code = U Cannab Scr) 4:41 AM) [facility] [id number] 10:41:00 Test Item Value Reference Range Interpretation Comments U Opiate Scr (test Positive *ABN*(10/23/19 code = U Opiate Scr) 4:41 AM) [facility] [id number] 10:41:00 Test Item Value Reference Range Interpretation Comments U Phencyclidine Scr (test Negative code = U Phencyclidine *NA*(10/23/19 4:41 Scr) AM) [facility] [id number] 10:41:00 Test Item Value Reference Range Interpretation Comments UDS Note (test code = See Note (10/23/19 4:41 UDS Note) AM) [facility] [id number] 10:41:00 Test Item Value Reference Range Interpretation Comments UA Turbidity (test code = Clear (10/23/19 4:41 UA Turbidity) AM) [facility] AND [id number] 10:41:00 Test Item Value Reference Range Interpretation Comments UA Spec Grav (test code = UA Spec 1.016 1 Grav) [facility] AND [id number] 10:41:00 Test Item Value Reference Range Interpretation Comments UA pH (test code = UA pH) 7.0 1 5.0-8.0 [facility] AND [id number] 10:41:00 Test Item Value Reference Range Interpretation Comments UA Protein (test code = UA >=300 mg/dL Protein) [facility] AND [id number] 10:41:00 Test Item Value Reference Range Interpretation Comments UA Bili (test code = Negative *NA*(10/23/19 UA Bili) 4:41 AM) [facility] AND [id number] 10:41:00 Test Item Value Reference Range Interpretation Comments UA Blood (test code = Small *ABN*(10/23/19 UA Blood) 4:41 AM) [facility] AND [id number] 10:41:00 Test Item Value Reference Range Interpretation Comments UA Nitrite (test code Negative (10/23/19 4:41 = UA Nitrite) AM) [facility] AND [id number] 10:41:00 Test Item Value Reference Range Interpretation Comments UA Leuk Est (test Negative (10/23/19 4:41 code = UA Leuk Est) AM) [facility] AND [id number] 10:41:00 Test Item Value Reference Range Interpretation Comments UA WBC (test code = 1 See_Comment [Automa vikki message] The UA WBC) system which ge nerated this result transmit vikki reference range : <=5. The reference range was not used to interpr et this result as cyndee l/abnormal. [facility] AND [id number] 10:41:00 Test Item Value Reference Range Interpretation Comments UA RBC (test code = 28 See_Comment [Automa vikki message] The UA RBC) system which ge nerated this result transmit vikki reference range : <=2. The reference range was not used to interpr et this result as cyndee l/abnormal. [facility] AND [id number] 10:41:00 Test Item Value Reference Range Interpretation Comments UA Sq Epi (test code = UA Sq Epi) None Seen [facility] AND [id number] 10:41:00 Test Item Value Reference Range Interpretation Comments UA Color (test code = UA Color) Straw [facility] AND [id number] 10:41:00 Test Item Value Reference Range Interpretation Comments UA Glucose (test code = UA Glucose) 500 [facility] AND [id number] 10:41:00 Test Item Value Reference Range Interpretation Comments UA Ketones (test code = UA Ketones) Negative [facility] AND [id number] 10:41:00 Test Item Value Reference Range Interpretation Comments UA Urobilinogen (test code = UA <=1.0 mg/dL 0.1-1.0 Urobilinogen) [facility] [id number] 10:41:00 Test Item Value Reference Range Interpretation Comments U Amph Scr (test code Negative *NA*(10/23/19 = U Amph Scr) 4:41 AM) [facility] [id number] 10:41:00 Test Item Value Reference Range Interpretation Comments U Regine Scr (test code Negative *NA*(10/23/19 = U Regine Scr) 4:41 AM) [facility] [id number] 10:41:00 Test Item Value Reference Range Interpretation Comments U Benzodiaz Scr (test Negative *NA*(10/23/19 code = U Benzodiaz Scr) 4:41 AM) [facility] [id number] 10:41:00 Test Item Value Reference Range Interpretation Comments U Cocaine Scr (test Negative *NA*(10/23/19 code = U Cocaine Scr) 4:41 AM) [facility] [id number] 10:41:00 Test Item Value Reference Range Interpretation Comments U Cannab Scr (test Negative *NA*(10/23/19 code = U Cannab Scr) 4:41 AM) [facility] [id number] 10:41:00 Test Item Value Reference Range Interpretation Comments U Opiate Scr (test Positive *ABN*(10/23/19 code = U Opiate Scr) 4:41 AM) [facility] [id number] 10:41:00 Test Item Value Reference Range Interpretation Comments U Phencyclidine Scr (test Negative code = U Phencyclidine *NA*(10/23/19 4:41 Scr) AM) [facility] [id number] 10:41:00 Test Item Value Reference Range Interpretation Comments UDS Note (test code = See Note (10/23/19 4:41 UDS Note) AM) [facility] [id number] 10:41:00 Test Item Value Reference Range Interpretation Comments UA Turbidity (test code = Clear (10/23/19 4:41 UA Turbidity) AM) [facility] [id number] 10:41:00 Test Item Value Reference Range Interpretation Comments UA Spec Grav (test code = UA Spec 1.016 1 Grav) [facility] [id number] 10:41:00 Test Item Value Reference Range Interpretation Comments UA pH (test code = UA pH) 7.0 1 5.0-8.0 [facility] [id number] 10:41:00 Test Item Value Reference Range Interpretation Comments UA Protein (test code = UA >=300 mg/dL Protein) [facility] [id number] 10:41:00 Test Item Value Reference Range Interpretation Comments UA Bili (test code = Negative *NA*(10/23/19 UA Bili) 4:41 AM) [facility] [id number] 10:41:00 Test Item Value Reference Range Interpretation Comments UA Blood (test code = Small *ABN*(10/23/19 UA Blood) 4:41 AM) [facility] [id number] 10:41:00 Test Item Value Reference Range Interpretation Comments UA Nitrite (test code Negative (10/23/19 4:41 = UA Nitrite) AM) [facility] [id number] 10:41:00 Test Item Value Reference Range Interpretation Comments UA Leuk Est (test Negative (10/23/19 4:41 code = UA Leuk Est) AM) [facility] [id number] 10:41:00 Test Item Value Reference Range Interpretation Comments UA WBC (test code = 1 See_Comment [Automa vikki message] The UA WBC) system which ge nerated this result transmit vikki reference range : <=5. The reference range was not used to interpr et this result as cyndee l/abnormal. [facility] [id number] 10:41:00 Test Item Value Reference Range Interpretation Comments UA RBC (test code = 28 See_Comment [Automa vikki message] The UA RBC) system which ge nerated this result transmit vikki reference range : <=2. The reference range was not used to interpr et this result as cyndee l/abnormal. [facility] [id number] 10:41:00 Test Item Value Reference Range Interpretation Comments UA Sq Epi (test code = UA Sq Epi) None [facility] [id number] 10:41:00 Test Item Value Reference Range Interpretation Comments UA Color (test code = UA Color) Straw [facility] AND [id number] 10:41:00 Test Item Value Reference Range Interpretation Comments UA Glucose (test code = UA Glucose) 500 [facility] AND [id number] 10:41:00 Test Item Value Reference Range Interpretation Comments UA Ketones (test code = UA Ketones) Negative [facility] AND [id number] 10:41:00 Test Item Value Reference Range Interpretation Comments UA Urobilinogen (test code = UA <=1.0 mg/dL 0.1-1.0 Urobilinogen) [facility] [id number] 10:41:00 Test Item Value Reference Range Interpretation Comments U Amph Scr (test code Negative *NA*(10/23/19 = U Amph Scr) 4:41 AM) [facility] [id number] 10:41:00 Test Item Value Reference Range Interpretation Comments U Amph Scr (test code Negative *NA*(10/23/19 = U Amph Scr) 4:41 AM) [facility] [id number] 10:41:00 Test Item Value Reference Range Interpretation Comments U Regine Scr (test code Negative *NA*(10/23/19 = U Regine Scr) 4:41 AM) [facility] [id number] 10:41:00 Test Item Value Reference Range Interpretation Comments U Benzodiaz Scr (test Negative *NA*(10/23/19 code = U Benzodiaz Scr) 4:41 AM) [facility] [id number] 10:41:00 Test Item Value Reference Range Interpretation Comments U Cocaine Scr (test Negative *NA*(10/23/19 code = U Cocaine Scr) 4:41 AM) [facility] [id number] 10:41:00 Test Item Value Reference Range Interpretation Comments U Cannab Scr (test Negative *NA*(10/23/19 code = U Cannab Scr) 4:41 AM) [facility] [id number] 10:41:00 Test Item Value Reference Range Interpretation Comments U Opiate Scr (test Positive *ABN*(10/23/19 code = U Opiate Scr) 4:41 AM) [facility] [id number] 10:41:00 Test Item Value Reference Range Interpretation Comments U Phencyclidine Scr (test Negative code = U Phencyclidine *NA*(10/23/19 4:41 Scr) AM) [facility] [id number] 10:41:00 Test Item Value Reference Range Interpretation Comments UDS Note (test code = See Note (10/23/19 4:41 UDS Note) AM) [facility] [id number] 10:41:00 Test Item Value Reference Range Interpretation Comments U Regine Scr (test code Negative *NA*(10/23/19 = U Regine Scr) 4:41 AM) [facility] [id number] 10:41:00 Test Item Value Reference Range Interpretation Comments UA Turbidity (test code = Clear (10/23/19 4:41 UA Turbidity) AM) [facility] [id number] 10:41:00 Test Item Value Reference Range Interpretation Comments UA Spec Grav (test code = UA Spec 1.016 1 Grav) [facility] [id number] 10:41:00 Test Item Value Reference Range Interpretation Comments UA pH (test code = UA pH) 7.0 1 5.0-8.0 [facility] [id number] 10:41:00 Test Item Value Reference Range Interpretation Comments UA Protein (test code = UA >=300 mg/dL Protein) [facility] [id number] 10:41:00 Test Item Value Reference Range Interpretation Comments UA Bili (test code = Negative *NA*(10/23/19 UA Bili) 4:41 AM) [facility] [id number] 10:41:00 Test Item Value Reference Range Interpretation Comments UA Blood (test code = Small *ABN*(10/23/19 UA Blood) 4:41 AM) [facility] [id number] 10:41:00 Test Item Value Reference Range Interpretation Comments UA Nitrite (test code Negative (10/23/19 4:41 = UA Nitrite) AM) [facility] [id number] 10:41:00 Test Item Value Reference Range Interpretation Comments UA Leuk Est (test Negative (10/23/19 4:41 code = UA Leuk Est) AM) [facility] [id number] 10:41:00 Test Item Value Reference Range Interpretation Comments UA WBC (test code = 1 See_Comment [Automa vikki message] The UA WBC) system which ge nerated this result transmit vikki reference range : <=5. The reference range was not used to interpr et this result as cyndee l/abnormal. [facility] [id number] 10:41:00 Test Item Value Reference Range Interpretation Comments UA RBC (test code = 28 See_Comment [Automa vikki message] The UA RBC) system which ge nerated this result transmit vikki reference range : <=2. The reference range was not used to interpr et this result as cyndee l/abnormal. [facility] [id number] 10:41:00 Test Item Value Reference Range Interpretation Comments U Benzodiaz Scr (test Negative *NA*(10/23/19 code = U Benzodiaz Scr) 4:41 AM) [facility] [id number] 10:41:00 Test Item Value Reference Range Interpretation Comments UA Sq Epi (test code = UA Sq Epi) None [facility]en [facility] [id number] 10:41:00 Test Item Value Reference Range Interpretation Comments UA Color (test code = UA Color) Straw [facility] [id number] 10:41:00 Test Item Value Reference Range Interpretation Comments UA Glucose (test code = UA Glucose) 500 [facility] [id number] 10:41:00 Test Item Value Reference Range Interpretation Comments UA Ketones (test code = UA Ketones) Negative [facility] [id number] 10:41:00 Test Item Value Reference Range Interpretation Comments UA Urobilinogen (test code = UA <=1.0 mg/dL 0.1-1.0 Urobilinogen) [facility] [id number] 10:41:00 Test Item Value Reference Range Interpretation Comments U Cocaine Scr (test Negative *NA*(10/23/19 code = U Cocaine Scr) 4:41 AM) [facility] [id number] 10:41:00 Test Item Value Reference Range Interpretation Comments U Cannab Scr (test Negative *NA*(10/23/19 code = U Cannab Scr) 4:41 AM) [facility] [id number] 10:41:00 Test Item Value Reference Range Interpretation Comments U Opiate Scr (test Positive *ABN*(10/23/19 code = U Opiate Scr) 4:41 AM) [facility] [id number] 10:41:00 Test Item Value Reference Range Interpretation Comments U Phencyclidine Scr (test Negative code = U Phencyclidine *NA*(10/23/19 4:41 Scr) AM) [facility] [id number] 10:41:00 Test Item Value Reference Range Interpretation Comments UDS Note (test code = See Note (10/23/19 4:41 UDS Note) AM) [facility] [id number] 10:41:00 Test Item Value Reference Range Interpretation Comments UA Turbidity (test code = Clear (10/23/19 4:41 UA Turbidity) AM) [facility] [id number] 10:41:00 Test Item Value Reference Range Interpretation Comments UA Spec Grav (test code = UA Spec 1.016 1 Grav) [facility] [id number] 10:41:00 Test Item Value Reference Range Interpretation Comments UA pH (test code = UA pH) 7.0 1 5.0-8.0 [facility] [id number] 10:41:00 Test Item Value Reference Range Interpretation Comments UA Protein (test code = UA >=300 mg/dL Protein) [facility] [id number] 10:41:00 Test Item Value Reference Range Interpretation Comments UA Bili (test code = Negative *NA*(10/23/19 UA Bili) 4:41 AM) [facility] [id number] 10:41:00 Test Item Value Reference Range Interpretation Comments UA Blood (test code = Small *ABN*(10/23/19 UA Blood) 4:41 AM) [facility] [id number] 10:41:00 Test Item Value Reference Range Interpretation Comments UA Nitrite (test code Negative (10/23/19 4:41 = UA Nitrite) AM) [facility] [id number] 10:41:00 Test Item Value Reference Range Interpretation Comments UA Leuk Est (test Negative (10/23/19 4:41 code = UA Leuk Est) AM) [facility] [id number] 10:41:00 Test Item Value Reference Range Interpretation Comments UA WBC (test code = 1 See_Comment [Automa vikki message] The UA WBC) system which ge nerated this result transmit vikki reference range : <=5. The reference range was not used to interpr et this result as cyndee l/abnormal. [facility] [id number] 10:41:00 Test Item Value Reference Range Interpretation Comments UA RBC (test code = 28 See_Comment [Automa vikki message] The UA RBC) system which ge nerated this result transmit vikki reference range : <=2. The reference range was not used to interpr et this result as cyndee l/abnormal. [facility] [id number] 10:41:00 Test Item Value Reference Range Interpretation Comments UA Sq Epi (test code = UA Sq Epi) None [facility]en [facility] [id number] 10:41:00 Test Item Value Reference Range Interpretation Comments UA Color (test code = UA Color) Straw [facility] [id number] 10:41:00 Test Item Value Reference Range Interpretation Comments UA Glucose (test code = UA Glucose) 500 [facility] [id number] 10:41:00 Test Item Value Reference Range Interpretation Comments U Amph Scr (test code Negative *NA*(10/23/19 = U Amph Scr) 4:41 AM) [facility] [id number] 10:41:00 Test Item Value Reference Range Interpretation Comments U Regine Scr (test code Negative *NA*(10/23/19 = U Regine Scr) 4:41 AM) [facility] [id number] 10:41:00 Test Item Value Reference Range Interpretation Comments U Benzodiaz Scr (test Negative *NA*(10/23/19 code = U Benzodiaz Scr) 4:41 AM) [facility] [id number] 10:41:00 Test Item Value Reference Range Interpretation Comments U Cocaine Scr (test Negative *NA*(10/23/19 code = U Cocaine Scr) 4:41 AM) [facility] [id number] 10:41:00 Test Item Value Reference Range Interpretation Comments UA Ketones (test code = UA Ketones) Negative [facility] [id number] 10:41:00 Test Item Value Reference Range Interpretation Comments U Cannab Scr (test Negative *NA*(10/23/19 code = U Cannab Scr) 4:41 AM) [facility] [id number] 10:41:00 Test Item Value Reference Range Interpretation Comments U Opiate Scr (test Positive *ABN*(10/23/19 code = U Opiate Scr) 4:41 AM) [facility] [id number] 10:41:00 Test Item Value Reference Range Interpretation Comments U Phencyclidine Scr (test Negative code = U Phencyclidine *NA*(10/23/19 4:41 Scr) AM) [facility] [id number] 10:41:00 Test Item Value Reference Range Interpretation Comments UDS Note (test code = See Note (10/23/19 4:41 UDS Note) AM) [facility] [id number] 10:41:00 Test Item Value Reference Range Interpretation Comments UA Turbidity (test code = Clear (10/23/19 4:41 UA Turbidity) AM) [facility] [id number] 10:41:00 Test Item Value Reference Range Interpretation Comments UA Spec Grav (test code = UA Spec 1.016 1 Grav) [facility] [id number] 10:41:00 Test Item Value Reference Range Interpretation Comments UA pH (test code = UA pH) 7.0 1 5.0-8.0 [facility] [id number] 10:41:00 Test Item Value Reference Range Interpretation Comments UA Protein (test code = UA >=300 mg/dL Protein) [facility] AND [id number] 10:41:00 Test Item Value Reference Range Interpretation Comments UA Bili (test code = Negative *NA*(10/23/19 UA Bili) 4:41 AM) [facility] AND [id number] 10:41:00 Test Item Value Reference Range Interpretation Comments UA Blood (test code = Small *ABN*(10/23/19 UA Blood) 4:41 AM) [facility] AND [id number] 10:41:00 Test Item Value Reference Range Interpretation Comments UA Urobilinogen (test code = UA <=1.0 mg/dL 0.1-1.0 Urobilinogen) [facility] AND [id number] 10:41:00 Test Item Value Reference Range Interpretation Comments UA Nitrite (test code Negative (10/23/19 4:41 = UA Nitrite) AM) [facility] AND [id number] 10:41:00 Test Item Value Reference Range Interpretation Comments UA Leuk Est (test Negative (10/23/19 4:41 code = UA Leuk Est) AM) [facility] AND [id number] 10:41:00 Test Item Value Reference Range Interpretation Comments UA WBC (test code = 1 See_Comment [Automa vikki message] The UA WBC) system which ge nerated this result transmit vikki reference range : <=5. The reference range was not used to interpr et this result as cyndee l/abnormal. [facility] AND [id number] 10:41:00 Test Item Value Reference Range Interpretation Comments UA RBC (test code = 28 See_Comment [Automa vikki message] The UA RBC) system which ge nerated this result transmit vikki reference range : <=2. The reference range was not used to interpr et this result as cyndee l/abnormal. [facility] AND [id number] 10:41:00 Test Item Value Reference Range Interpretation Comments UA Sq Epi (test code = UA Sq Epi) None Seen [facility] AND [id number] 10:41:00 Test Item Value Reference Range Interpretation Comments UA Color (test code = UA Color) Straw [facility] AND [id number] 10:41:00 Test Item Value Reference Range Interpretation Comments UA Glucose (test code = UA Glucose) 500 [facility] AND [id number] 10:41:00 Test Item Value Reference Range Interpretation Comments UA Ketones (test code = UA Ketones) Negative [facility] AND [id number] 10:41:00 Test Item Value Reference Range Interpretation Comments UA Urobilinogen (test code = UA <=1.0 mg/dL 0.1-1.0 Urobilinogen) [facility] [id number] 10:41:00 Test Item Value Reference Range Interpretation Comments U Amph Scr (test code Negative *NA*(10/23/19 = U Amph Scr) 4:41 AM) [facility] [id number] 10:41:00 Test Item Value Reference Range Interpretation Comments U Regine Scr (test code Negative *NA*(10/23/19 = U Regine Scr) 4:41 AM) [facility] [id number] 10:41:00 Test Item Value Reference Range Interpretation Comments U Benzodiaz Scr (test Negative *NA*(10/23/19 code = U Benzodiaz Scr) 4:41 AM) [facility] [id number] 10:41:00 Test Item Value Reference Range Interpretation Comments U Cocaine Scr (test Negative *NA*(10/23/19 code = U Cocaine Scr) 4:41 AM) [facility] [id number] 10:41:00 Test Item Value Reference Range Interpretation Comments U Cannab Scr (test Negative *NA*(10/23/19 code = U Cannab Scr) 4:41 AM) [facility] [id number] 10:41:00 Test Item Value Reference Range Interpretation Comments U Opiate Scr (test Positive *ABN*(10/23/19 code = U Opiate Scr) 4:41 AM) [facility] [id number] 10:41:00 Test Item Value Reference Range Interpretation Comments U Phencyclidine Scr (test Negative code = U Phencyclidine *NA*(10/23/19 4:41 Scr) AM) [facility] [id number] 10:41:00 Test Item Value Reference Range Interpretation Comments UDS Note (test code = See Note (10/23/19 4:41 UDS Note) AM) [facility] [id number] 10:41:00 Test Item Value Reference Range Interpretation Comments UA Turbidity (test code = Clear (10/23/19 4:41 UA Turbidity) AM) [facility] AND [id number] 10:41:00 Test Item Value Reference Range Interpretation Comments UA Spec Grav (test code = UA Spec 1.016 1 Grav) [facility] AND [id number] 10:41:00 Test Item Value Reference Range Interpretation Comments UA pH (test code = UA pH) 7.0 1 5.0-8.0 [facility] [id number] 10:41:00 Test Item Value Reference Range Interpretation Comments UA Protein (test code = UA >=300 mg/dL Protein) [facility] AND [id number] 10:41:00 Test Item Value Reference Range Interpretation Comments UA Bili (test code = Negative *NA*(10/23/19 UA Bili) 4:41 AM) [facility] AND [id number] 10:41:00 Test Item Value Reference Range Interpretation Comments UA Blood (test code = Small *ABN*(10/23/19 UA Blood) 4:41 AM) [facility] AND [id number] 10:41:00 Test Item Value Reference Range Interpretation Comments UA Nitrite (test code Negative (10/23/19 4:41 = UA Nitrite) AM) [facility] AND [id number] 10:41:00 Test Item Value Reference Range Interpretation Comments UA Leuk Est (test Negative (10/23/19 4:41 code = UA Leuk Est) AM) [facility] AND [id number] 10:41:00 Test Item Value Reference Range Interpretation Comments UA WBC (test code = 1 See_Comment [Automa vikki message] The UA WBC) system which ge nerated this result transmit vikki reference range : <=5. The reference range was not used to interpr et this result as cyndee l/abnormal. [facility] [id number] 10:41:00 Test Item Value Reference Range Interpretation Comments UA RBC (test code = 28 See_Comment [Automa vikki message] The UA RBC) system which ge nerated this result transmit vikki reference range : <=2. The reference range was not used to interpr et this result as cyndee l/abnormal. [facility] AND [id number] 10:41:00 Test Item Value Reference Range Interpretation Comments UA Sq Epi (test code = UA Sq Epi) None Seen [facility] AND [id number] 10:41:00 Test Item Value Reference Range Interpretation Comments UA Color (test code = UA Color) Straw [facility] AND [id number] 10:41:00 Test Item Value Reference Range Interpretation Comments UA Glucose (test code = UA Glucose) 500 [facility] AND [id number] 10:41:00 Test Item Value Reference Range Interpretation Comments UA Ketones (test code = UA Ketones) Negative [facility] AND [id number] 10:41:00 Test Item Value Reference Range Interpretation Comments UA Urobilinogen (test code = UA <=1.0 mg/dL 0.1-1.0 Urobilinogen) [facility] [id number] 10:41:00 Test Item Value Reference Range Interpretation Comments U Amph Scr (test code Negative *NA*(10/23/19 = U Amph Scr) 4:41 AM) [facility]2019-11-29 10:41:00 Test Item Value Reference Range Interpretation Comments U Regine Scr (test code Negative *NA*(10/23/19 = U Regine Scr) 4:41 AM) [facility]2019-11-29 10:41:00 Test Item Value Reference Range Interpretation Comments U Benzodiaz Scr (test Negative *NA*(10/23/19 code = U Benzodiaz Scr) 4:41 AM) [facility] [id number] 10:41:00 Test Item Value Reference Range Interpretation Comments U Cocaine Scr (test Negative *NA*(10/23/19 code = U Cocaine Scr) 4:41 AM) [facility] [id number] 10:41:00 Test Item Value Reference Range Interpretation Comments U Cannab Scr (test Negative *NA*(10/23/19 code = U Cannab Scr) 4:41 AM) [facility] [id number] 10:41:00 Test Item Value Reference Range Interpretation Comments U Opiate Scr (test Positive *ABN*(10/23/19 code = U Opiate Scr) 4:41 AM) [facility] [id number] 10:41:00 Test Item Value Reference Range Interpretation Comments U Phencyclidine Scr (test Negative code = U Phencyclidine *NA*(10/23/19 4:41 Scr) AM) [facility] [id number] 10:41:00 Test Item Value Reference Range Interpretation Comments UDS Note (test code = See Note (10/23/19 4:41 UDS Note) AM) [facility] [id number] 10:41:00 Test Item Value Reference Range Interpretation Comments UA Turbidity (test code = Clear (10/23/19 4:41 UA Turbidity) AM) [facility] [id number] 10:41:00 Test Item Value Reference Range Interpretation Comments UA Spec Grav (test code = UA Spec 1.016 1 Grav) [facility] [id number] 10:41:00 Test Item Value Reference Range Interpretation Comments UA pH (test code = UA pH) 7.0 1 5.0-8.0 [facility] [id number] 10:41:00 Test Item Value Reference Range Interpretation Comments UA Protein (test code = UA >=300 mg/dL Protein) [facility] [id number] 10:41:00 Test Item Value Reference Range Interpretation Comments UA Bili (test code = Negative *NA*(10/23/19 UA Bili) 4:41 AM) [facility] [id number] 10:41:00 Test Item Value Reference Range Interpretation Comments UA Blood (test code = Small *ABN*(10/23/19 UA Blood) 4:41 AM) [facility] [id number] 10:41:00 Test Item Value Reference Range Interpretation Comments UA Nitrite (test code Negative (10/23/19 4:41 = UA Nitrite) AM) [facility] [id number] 10:41:00 Test Item Value Reference Range Interpretation Comments UA Leuk Est (test Negative (10/23/19 4:41 code = UA Leuk Est) AM) [facility] [id number] 10:41:00 Test Item Value Reference Range Interpretation Comments UA WBC (test code = UA WBC) 1 <=5 [facility] [id number] 10:41:00 Test Item Value Reference Range Interpretation Comments UA RBC (test code = UA RBC) 28 <=2 [facility] [id number] 10:41:00 Test Item Value Reference Range Interpretation Comments UA Sq Epi (test code = UA Sq Epi) None Seen [facility] AND [id number] 10:41:00 Test Item Value Reference Range Interpretation Comments UA Color (test code = UA Color) Straw [facility] AND [id number] 10:41:00 Test Item Value Reference Range Interpretation Comments UA Glucose (test code = UA Glucose) 500 [facility] AND [id number] 10:41:00 Test Item Value Reference Range Interpretation Comments UA Ketones (test code = UA Ketones) Negative [facility] AND [id number] 10:41:00 Test Item Value Reference Range Interpretation Comments UA Urobilinogen (test code = UA <=1.0 mg/dL 0.1-1.0 Urobilinogen) [facility] [id number] 10:41:00 Test Item Value Reference Range Interpretation Comments U Amph Scr (test code Negative *NA*(10/23/19 = U Amph Scr) 4:41 AM) [facility] [id number] 10:41:00 Test Item Value Reference Range Interpretation Comments U Regine Scr (test code Negative *NA*(10/23/19 = U Regine Scr) 4:41 AM) [facility] [id number] 10:41:00 Test Item Value Reference Range Interpretation Comments U Benzodiaz Scr (test Negative *NA*(10/23/19 code = U Benzodiaz Scr) 4:41 AM) [facility] [id number] 10:41:00 Test Item Value Reference Range Interpretation Comments U Cocaine Scr (test Negative *NA*(10/23/19 code = U Cocaine Scr) 4:41 AM) [facility] [id number] 10:41:00 Test Item Value Reference Range Interpretation Comments U Cannab Scr (test Negative *NA*(10/23/19 code = U Cannab Scr) 4:41 AM) [facility] [id number] 10:41:00 Test Item Value Reference Range Interpretation Comments U Opiate Scr (test Positive *ABN*(10/23/19 code = U Opiate Scr) 4:41 AM) [facility] [id number] 10:41:00 Test Item Value Reference Range Interpretation Comments U Phencyclidine Scr (test Negative code = U Phencyclidine *NA*(10/23/19 4:41 Scr) AM) [facility] [id number] 10:41:00 Test Item Value Reference Range Interpretation Comments UDS Note (test code = See Note (10/23/19 4:41 UDS Note) AM) [facility] [id number] 10:41:00 Test Item Value Reference Range Interpretation Comments UA Turbidity (test code = Clear (10/23/19 4:41 UA Turbidity) AM) [facility] [id number] 10:41:00 Test Item Value Reference Range Interpretation Comments UA Spec Grav (test code = UA Spec 1.016 1 Grav) [facility] [id number] 10:41:00 Test Item Value Reference Range Interpretation Comments UA pH (test code = UA pH) 7.0 1 5.0-8.0 [facility] [id number] 10:41:00 Test Item Value Reference Range Interpretation Comments UA Protein (test code = UA >=300 mg/dL Protein) [facility] [id number] 10:41:00 Test Item Value Reference Range Interpretation Comments UA Bili (test code = Negative *NA*(10/23/19 UA Bili) 4:41 AM) [facility] [id number] 10:41:00 Test Item Value Reference Range Interpretation Comments UA Blood (test code = Small *ABN*(10/23/19 UA Blood) 4:41 AM) [facility] [id number] 10:41:00 Test Item Value Reference Range Interpretation Comments UA Nitrite (test code Negative (10/23/19 4:41 = UA Nitrite) AM) [facility] [id number] 10:41:00 Test Item Value Reference Range Interpretation Comments UA Leuk Est (test Negative (10/23/19 4:41 code = UA Leuk Est) AM) [facility] [id number] 10:41:00 Test Item Value Reference Range Interpretation Comments UA WBC (test code = UA WBC) 1 <=5 [facility] [id number] 10:41:00 Test Item Value Reference Range Interpretation Comments UA RBC (test code = UA RBC) 28 <=2 [facility] [id number] 10:41:00 Test Item Value Reference Range Interpretation Comments UA Sq Epi (test code = UA Sq Epi) None Seen [facility] AND [id number] 10:41:00 Test Item Value Reference Range Interpretation Comments UA Color (test code = UA Color) Straw [facility] AND [id number] 10:41:00 Test Item Value Reference Range Interpretation Comments UA Glucose (test code = UA Glucose) 500 [facility] AND [id number] 10:41:00 Test Item Value Reference Range Interpretation Comments UA Ketones (test code = UA Ketones) Negative [facility] AND [id number] 10:41:00 Test Item Value Reference Range Interpretation Comments UA Urobilinogen (test code = UA <=1.0 mg/dL 0.1-1.0 Urobilinogen) [facility] [id number] 10:41:00 Test Item Value Reference Range Interpretation Comments U Amph Scr (test code Negative *NA*(10/23/19 = U Amph Scr) 4:41 AM) [facility] [id number] 10:41:00 Test Item Value Reference Range Interpretation Comments U Regine Scr (test code Negative *NA*(10/23/19 = U Regine Scr) 4:41 AM) [facility] [id number] 10:41:00 Test Item Value Reference Range Interpretation Comments U Benzodiaz Scr (test Negative *NA*(10/23/19 code = U Benzodiaz Scr) 4:41 AM) [facility] [id number] 10:41:00 Test Item Value Reference Range Interpretation Comments U Cocaine Scr (test Negative *NA*(10/23/19 code = U Cocaine Scr) 4:41 AM) [facility] [id number] 10:41:00 Test Item Value Reference Range Interpretation Comments U Cannab Scr (test Negative *NA*(10/23/19 code = U Cannab Scr) 4:41 AM) [facility] [id number] 10:41:00 Test Item Value Reference Range Interpretation Comments U Opiate Scr (test Positive *ABN*(10/23/19 code = U Opiate Scr) 4:41 AM) [facility] [id number] 10:41:00 Test Item Value Reference Range Interpretation Comments U Phencyclidine Scr (test Negative code = U Phencyclidine *NA*(10/23/19 4:41 Scr) AM) [facility] [id number] 10:41:00 Test Item Value Reference Range Interpretation Comments UDS Note (test code = See Note (10/23/19 4:41 UDS Note) AM) [facility] [id number] 10:41:00 Test Item Value Reference Range Interpretation Comments UA Turbidity (test code = Clear (10/23/19 4:41 UA Turbidity) AM) [facility] [id number] 10:41:00 Test Item Value Reference Range Interpretation Comments UA Spec Grav (test code = UA Spec 1.016 1 Grav) [facility] [id number] 10:41:00 Test Item Value Reference Range Interpretation Comments UA pH (test code = UA pH) 7.0 1 5.0-8.0 [facility] [id number] 10:41:00 Test Item Value Reference Range Interpretation Comments UA Protein (test code = UA >=300 mg/dL Protein) [facility] [id number] 10:41:00 Test Item Value Reference Range Interpretation Comments UA Bili (test code = Negative *NA*(10/23/19 UA Bili) 4:41 AM) [facility] [id number] 10:41:00 Test Item Value Reference Range Interpretation Comments UA Blood (test code = Small *ABN*(10/23/19 UA Blood) 4:41 AM) [facility] [id number] 10:41:00 Test Item Value Reference Range Interpretation Comments UA Nitrite (test code Negative (10/23/19 4:41 = UA Nitrite) AM) [facility] [id number] 10:41:00 Test Item Value Reference Range Interpretation Comments UA Leuk Est (test Negative (10/23/19 4:41 code = UA Leuk Est) AM) [facility] [id number] 10:41:00 Test Item Value Reference Range Interpretation Comments UA WBC (test code = UA WBC) 1 <=5 [facility] [id number] 10:41:00 Test Item Value Reference Range Interpretation Comments UA RBC (test code = UA RBC) 28 <=2 [facility] [id number] 10:41:00 Test Item Value Reference Range Interpretation Comments UA Sq Epi (test code = UA Sq Epi) None [facility] [id number] 10:41:00 Test Item Value Reference Range Interpretation Comments UA Color (test code = UA Color) Straw [facility] AND [id number] 10:41:00 Test Item Value Reference Range Interpretation Comments UA Glucose (test code = UA Glucose) 500 [facility] AND [id number] 10:41:00 Test Item Value Reference Range Interpretation Comments UA Ketones (test code = UA Ketones) Negative [facility] AND [id number] 10:41:00 Test Item Value Reference Range Interpretation Comments UA Urobilinogen (test code = UA <=1.0 mg/dL 0.1-1.0 Urobilinogen) [facility] [id number] 10:41:00 Test Item Value Reference Range Interpretation Comments U Amph Scr (test code Negative *NA*(10/23/19 = U Amph Scr) 4:41 AM) [facility] [id number] 10:41:00 Test Item Value Reference Range Interpretation Comments U Regine Scr (test code Negative *NA*(10/23/19 = U Regine Scr) 4:41 AM) [facility] [id number] 10:41:00 Test Item Value Reference Range Interpretation Comments U Benzodiaz Scr (test Negative *NA*(10/23/19 code = U Benzodiaz Scr) 4:41 AM) [facility] [id number] 10:41:00 Test Item Value Reference Range Interpretation Comments U Cocaine Scr (test Negative *NA*(10/23/19 code = U Cocaine Scr) 4:41 AM) [facility] [id number] 10:41:00 Test Item Value Reference Range Interpretation Comments U Cannab Scr (test Negative *NA*(10/23/19 code = U Cannab Scr) 4:41 AM) [facility] [id number] 10:41:00 Test Item Value Reference Range Interpretation Comments U Opiate Scr (test Positive *ABN*(10/23/19 code = U Opiate Scr) 4:41 AM) [facility] [id number] 10:41:00 Test Item Value Reference Range Interpretation Comments U Phencyclidine Scr (test Negative code = U Phencyclidine *NA*(10/23/19 4:41 Scr) AM) [facility] [id number] 10:41:00 Test Item Value Reference Range Interpretation Comments UDS Note (test code = See Note (10/23/19 4:41 UDS Note) AM) [facility] [id number] 10:41:00 Test Item Value Reference Range Interpretation Comments UA Turbidity (test code = Clear (10/23/19 4:41 UA Turbidity) AM) [facility] [id number] 10:41:00 Test Item Value Reference Range Interpretation Comments UA Spec Grav (test code = UA Spec 1.016 1 Grav) [facility] [id number] 10:41:00 Test Item Value Reference Range Interpretation Comments UA pH (test code = UA pH) 7.0 1 5.0-8.0 [facility] [id number] 10:41:00 Test Item Value Reference Range Interpretation Comments UA Protein (test code = UA >=300 mg/dL Protein) [facility] [id number] 10:41:00 Test Item Value Reference Range Interpretation Comments UA Bili (test code = Negative *NA*(10/23/19 UA Bili) 4:41 AM) [facility] [id number] 10:41:00 Test Item Value Reference Range Interpretation Comments UA Blood (test code = Small *ABN*(10/23/19 UA Blood) 4:41 AM) [facility] [id number] 10:41:00 Test Item Value Reference Range Interpretation Comments UA Nitrite (test code Negative (10/23/19 4:41 = UA Nitrite) AM) [facility] [id number] 10:41:00 Test Item Value Reference Range Interpretation Comments UA Leuk Est (test Negative (10/23/19 4:41 code = UA Leuk Est) AM) [facility] [id number] 10:41:00 Test Item Value Reference Range Interpretation Comments UA WBC (test code = UA WBC) 1 <=5 [facility] [id number] 10:41:00 Test Item Value Reference Range Interpretation Comments UA RBC (test code = UA RBC) 28 <=2 [facility] [id number] 10:41:00 Test Item Value Reference Range Interpretation Comments UA Sq Epi (test code = UA Sq Epi) None [facility] [id number] 10:41:00 Test Item Value Reference Range Interpretation Comments UA Color (test code = UA Color) Straw [facility] [id number] 10:41:00 Test Item Value Reference Range Interpretation Comments UA Glucose (test code = UA Glucose) 500 [facility] [id number] 10:41:00 Test Item Value Reference Range Interpretation Comments UA Ketones (test code = UA Ketones) Negative [facility] [id number] 10:41:00 Test Item Value Reference Range Interpretation Comments UA Urobilinogen (test code = UA <=1.0 mg/dL 0.1-1.0 Urobilinogen) [facility] [id number] 10:41:00 Test Item Value Reference Range Interpretation Comments U Amph Scr (test code Negative *NA*(10/23/19 = U Amph Scr) 4:41 AM) [facility] [id number] 10:41:00 Test Item Value Reference Range Interpretation Comments U Regine Scr (test code Negative *NA*(10/23/19 = U Regine Scr) 4:41 AM) [facility] [id number] 10:41:00 Test Item Value Reference Range Interpretation Comments U Benzodiaz Scr (test Negative *NA*(10/23/19 code = U Benzodiaz Scr) 4:41 AM) [facility] [id number] 10:41:00 Test Item Value Reference Range Interpretation Comments U Cocaine Scr (test Negative *NA*(10/23/19 code = U Cocaine Scr) 4:41 AM) [facility] [id number] 10:41:00 Test Item Value Reference Range Interpretation Comments U Cannab Scr (test Negative *NA*(10/23/19 code = U Cannab Scr) 4:41 AM) [facility] [id number] 10:41:00 Test Item Value Reference Range Interpretation Comments U Opiate Scr (test Positive *ABN*(10/23/19 code = U Opiate Scr) 4:41 AM) [facility] [id number] 10:41:00 Test Item Value Reference Range Interpretation Comments U Phencyclidine Scr (test Negative code = U Phencyclidine *NA*(10/23/19 4:41 Scr) AM) [facility] [id number] 10:41:00 Test Item Value Reference Range Interpretation Comments UDS Note (test code = See Note (10/23/19 4:41 UDS Note) AM) [facility] [id number] 10:41:00 Test Item Value Reference Range Interpretation Comments UA Turbidity (test code = Clear (10/23/19 4:41 UA Turbidity) AM) [facility] [id number] 10:41:00 Test Item Value Reference Range Interpretation Comments UA Spec Grav (test code = UA Spec 1.016 1 Grav) [facility] [id number] 10:41:00 Test Item Value Reference Range Interpretation Comments UA pH (test code = UA pH) 7.0 1 5.0-8.0 [facility] [id number] 10:41:00 Test Item Value Reference Range Interpretation Comments UA Protein (test code = UA >=300 mg/dL Protein) [facility] [id number] 10:41:00 Test Item Value Reference Range Interpretation Comments UA Bili (test code = Negative *NA*(10/23/19 UA Bili) 4:41 AM) [facility] [id number] 10:41:00 Test Item Value Reference Range Interpretation Comments UA Blood (test code = Small *ABN*(10/23/19 UA Blood) 4:41 AM) [facility] [id number] 10:41:00 Test Item Value Reference Range Interpretation Comments UA Nitrite (test code Negative (10/23/19 4:41 = UA Nitrite) AM) [facility] [id number] 10:41:00 Test Item Value Reference Range Interpretation Comments UA Leuk Est (test Negative (10/23/19 4:41 code = UA Leuk Est) AM) [facility] [id number] 10:41:00 Test Item Value Reference Range Interpretation Comments UA WBC (test code = UA WBC) 1 <=5 [facility] [id number] 10:41:00 Test Item Value Reference Range Interpretation Comments UA RBC (test code = UA RBC) 28 <=2 [facility] [id number] 10:41:00 Test Item Value Reference Range Interpretation Comments UA Sq Epi (test code = UA Sq Epi) None [facility]en [facility] [id number] 10:41:00 Test Item Value Reference Range Interpretation Comments UA Color (test code = UA Color) [facility] [id number] 10:41:00 Test Item Value Reference Range Interpretation Comments UA Glucose (test code = UA Glucose) 500 [facility] [id number] 10:41:00 Test Item Value Reference Range Interpretation Comments UA Ketones (test code = UA Ketones) Negative [facility] [id number] 10:41:00 Test Item Value Reference Range Interpretation Comments UA Urobilinogen (test code = UA <=1.0 mg/dL 0.1-1.0 Urobilinogen) [facility] [id number] 10:41:00 Test Item Value Reference Range Interpretation Comments U Amph Scr (test code Negative *NA*(10/23/19 = U Amph Scr) 4:41 AM) [facility] [id number] 10:41:00 Test Item Value Reference Range Interpretation Comments U Regine Scr (test code Negative *NA*(10/23/19 = U Regine Scr) 4:41 AM) [facility] [id number] 10:41:00 Test Item Value Reference Range Interpretation Comments U Benzodiaz Scr (test Negative *NA*(10/23/19 code = U Benzodiaz Scr) 4:41 AM) [facility] [id number] 10:41:00 Test Item Value Reference Range Interpretation Comments U Cocaine Scr (test Negative *NA*(10/23/19 code = U Cocaine Scr) 4:41 AM) [facility] [id number] 10:41:00 Test Item Value Reference Range Interpretation Comments U Cannab Scr (test Negative *NA*(10/23/19 code = U Cannab Scr) 4:41 AM) [facility] [id number] 10:41:00 Test Item Value Reference Range Interpretation Comments U Opiate Scr (test Positive *ABN*(10/23/19 code = U Opiate Scr) 4:41 AM) [facility] [id number] 10:41:00 Test Item Value Reference Range Interpretation Comments U Phencyclidine Scr (test Negative code = U Phencyclidine *NA*(10/23/19 4:41 Scr) AM) [facility] [id number] 10:41:00 Test Item Value Reference Range Interpretation Comments UDS Note (test code = See Note (10/23/19 4:41 UDS Note) AM) [facility] [id number] 10:41:00 Test Item Value Reference Range Interpretation Comments UA Turbidity (test code = Clear (10/23/19 4:41 UA Turbidity) AM) [facility] [id number] 10:41:00 Test Item Value Reference Range Interpretation Comments UA Spec Grav (test code = UA Spec 1.016 1 Grav) [facility] [id number] 10:41:00 Test Item Value Reference Range Interpretation Comments UA pH (test code = UA pH) 7.0 1 5.0-8.0 [facility] [id number] 10:41:00 Test Item Value Reference Range Interpretation Comments UA Protein (test code = UA >=300 mg/dL Protein) [facility] [id number] 10:41:00 Test Item Value Reference Range Interpretation Comments UA Bili (test code = Negative *NA*(10/23/19 UA Bili) 4:41 AM) [facility] [id number] 10:41:00 Test Item Value Reference Range Interpretation Comments UA Blood (test code = Small *ABN*(10/23/19 UA Blood) 4:41 AM) [facility] [id number] 10:41:00 Test Item Value Reference Range Interpretation Comments UA Nitrite (test code Negative (10/23/19 4:41 = UA Nitrite) AM) [facility] [id number] 10:41:00 Test Item Value Reference Range Interpretation Comments UA Leuk Est (test Negative (10/23/19 4:41 code = UA Leuk Est) AM) [facility] [id number] 10:41:00 Test Item Value Reference Range Interpretation Comments UA WBC (test code = UA WBC) 1 <=5 [facility] [id number] 10:41:00 Test Item Value Reference Range Interpretation Comments UA RBC (test code = UA RBC) 28 <=2 [facility] [id number] 10:41:00 Test Item Value Reference Range Interpretation Comments UA Sq Epi (test code = UA Sq Epi) None [facility]en [facility] [id number] 10:41:00 Test Item Value Reference Range Interpretation Comments UA Color (test code = UA Color) Straw [facility] [id number] 10:41:00 Test Item Value Reference Range Interpretation Comments UA Glucose (test code = UA Glucose) 500 [facility] [id number] 10:41:00 Test Item Value Reference Range Interpretation Comments UA Ketones (test code = UA Ketones) Negative [facility] [id number] 10:41:00 Test Item Value Reference Range Interpretation Comments UA Urobilinogen (test code = UA <=1.0 mg/dL 0.1-1.0 Urobilinogen) [facility] [id number] 10:41:00 Test Item Value Reference Range Interpretation Comments U Amph Scr (test code Negative *NA*(10/23/19 = U Amph Scr) 4:41 AM) [facility] [id number] 10:41:00 Test Item Value Reference Range Interpretation Comments U Regine Scr (test code Negative *NA*(10/23/19 = U Regine Scr) 4:41 AM) [facility] [id number] 10:41:00 Test Item Value Reference Range Interpretation Comments U Benzodiaz Scr (test Negative *NA*(10/23/19 code = U Benzodiaz Scr) 4:41 AM) [facility] [id number] 10:41:00 Test Item Value Reference Range Interpretation Comments U Cocaine Scr (test Negative *NA*(10/23/19 code = U Cocaine Scr) 4:41 AM) [facility] [id number] 10:41:00 Test Item Value Reference Range Interpretation Comments U Cannab Scr (test Negative *NA*(10/23/19 code = U Cannab Scr) 4:41 AM) [facility] [id number] 10:41:00 Test Item Value Reference Range Interpretation Comments U Opiate Scr (test Positive *ABN*(10/23/19 code = U Opiate Scr) 4:41 AM) [facility] [id number] 10:41:00 Test Item Value Reference Range Interpretation Comments U Phencyclidine Scr (test Negative code = U Phencyclidine *NA*(10/23/19 4:41 Scr) AM) [facility] [id number] 10:41:00 Test Item Value Reference Range Interpretation Comments UDS Note (test code = See Note (10/23/19 4:41 UDS Note) AM) [facility] [id number] 10:41:00 Test Item Value Reference Range Interpretation Comments UA Turbidity (test code = Clear (10/23/19 4:41 UA Turbidity) AM) [facility] [id number] 10:41:00 Test Item Value Reference Range Interpretation Comments UA Spec Grav (test code = UA Spec 1.016 1 Grav) [facility] [id number] 10:41:00 Test Item Value Reference Range Interpretation Comments UA pH (test code = UA pH) 7.0 1 5.0-8.0 [facility] [id number] 10:41:00 Test Item Value Reference Range Interpretation Comments UA Protein (test code = UA >=300 mg/dL Protein) [facility] [id number] 10:41:00 Test Item Value Reference Range Interpretation Comments UA Bili (test code = Negative *NA*(10/23/19 UA Bili) 4:41 AM) [facility] [id number] 10:41:00 Test Item Value Reference Range Interpretation Comments UA Blood (test code = Small *ABN*(10/23/19 UA Blood) 4:41 AM) [facility] [id number] 10:41:00 Test Item Value Reference Range Interpretation Comments UA Nitrite (test code Negative (10/23/19 4:41 = UA Nitrite) AM) [facility] [id number] 10:41:00 Test Item Value Reference Range Interpretation Comments UA Leuk Est (test Negative (10/23/19 4:41 code = UA Leuk Est) AM) [facility] [id number] 10:41:00 Test Item Value Reference Range Interpretation Comments UA WBC (test code = UA WBC) 1 <=5 [facility] [id number] 10:41:00 Test Item Value Reference Range Interpretation Comments UA RBC (test code = UA RBC) 28 <=2 [facility] [id number] 10:41:00 Test Item Value Reference Range Interpretation Comments UA Sq Epi (test code = UA Sq Epi) None [facility]en [facility] [id number] 10:41:00 Test Item Value Reference Range Interpretation Comments UA Color (test code = UA Color) Straw [facility] [id number] 10:41:00 Test Item Value Reference Range Interpretation Comments UA Glucose (test code = UA Glucose) 500 [facility] [id number] 10:41:00 Test Item Value Reference Range Interpretation Comments UA Ketones (test code = UA Ketones) Negative [facility] [id number] 10:41:00 Test Item Value Reference Range Interpretation Comments UA Urobilinogen (test code = UA <=1.0 mg/dL 0.1-1.0 Urobilinogen) [facility] [id number] 10:41:00 Test Item Value Reference Range Interpretation Comments U Amph Scr (test code Negative *NA*(10/23/19 = U Amph Scr) 4:41 AM) [facility] [id number] 10:41:00 Test Item Value Reference Range Interpretation Comments U Regine Scr (test code Negative *NA*(10/23/19 = U Regine Scr) 4:41 AM) [facility] [id number] 10:41:00 Test Item Value Reference Range Interpretation Comments U Benzodiaz Scr (test Negative *NA*(10/23/19 code = U Benzodiaz Scr) 4:41 AM) [facility] [id number] 10:41:00 Test Item Value Reference Range Interpretation Comments U Cocaine Scr (test Negative *NA*(10/23/19 code = U Cocaine Scr) 4:41 AM) [facility] [id number] 10:41:00 Test Item Value Reference Range Interpretation Comments U Cannab Scr (test Negative *NA*(10/23/19 code = U Cannab Scr) 4:41 AM) [facility] [id number] 10:41:00 Test Item Value Reference Range Interpretation Comments U Opiate Scr (test Positive *ABN*(10/23/19 code = U Opiate Scr) 4:41 AM) [facility] [id number] 10:41:00 Test Item Value Reference Range Interpretation Comments U Phencyclidine Scr (test Negative code = U Phencyclidine *NA*(10/23/19 4:41 Scr) AM) [facility] [id number] 10:41:00 Test Item Value Reference Range Interpretation Comments UDS Note (test code = See Note (10/23/19 4:41 UDS Note) AM) [facility] [id number] 10:41:00 Test Item Value Reference Range Interpretation Comments UA Turbidity (test code = Clear (10/23/19 4:41 UA Turbidity) AM) [facility] [id number] 10:41:00 Test Item Value Reference Range Interpretation Comments UA Spec Grav (test code = UA Spec 1.016 1 Grav) [facility] [id number] 10:41:00 Test Item Value Reference Range Interpretation Comments UA pH (test code = UA pH) 7.0 1 5.0-8.0 [facility] [id number] 10:41:00 Test Item Value Reference Range Interpretation Comments UA Protein (test code = UA >=300 mg/dL Protein) [facility] [id number] 10:41:00 Test Item Value Reference Range Interpretation Comments UA Bili (test code = Negative *NA*(10/23/19 UA Bili) 4:41 AM) [facility] [id number] 10:41:00 Test Item Value Reference Range Interpretation Comments UA Blood (test code = Small *ABN*(10/23/19 UA Blood) 4:41 AM) [facility] [id number] 10:41:00 Test Item Value Reference Range Interpretation Comments UA Nitrite (test code Negative (10/23/19 4:41 = UA Nitrite) AM) [facility] [id number] 10:41:00 Test Item Value Reference Range Interpretation Comments UA Leuk Est (test Negative (10/23/19 4:41 code = UA Leuk Est) AM) [facility] [id number] 10:41:00 Test Item Value Reference Range Interpretation Comments UA WBC (test code = UA WBC) 1 <=5 [facility] [id number] 10:41:00 Test Item Value Reference Range Interpretation Comments UA RBC (test code = UA RBC) 28 <=2 [facility] [id number] 10:41:00 Test Item Value Reference Range Interpretation Comments UA Sq Epi (test code = UA Sq Epi) None Seen [facility] [id number] 10:41:00 Test Item Value Reference Range Interpretation Comments UA Color (test code = UA Color) Straw [facility] [id number] 10:41:00 Test Item Value Reference Range Interpretation Comments UA Glucose (test code = UA Glucose) 500 [facility] [id number] 10:41:00 Test Item Value Reference Range Interpretation Comments UA Ketones (test code = UA Ketones) Negative [facility] [id number] 10:41:00 Test Item Value Reference Range Interpretation Comments UA Urobilinogen (test code = UA <=1.0 mg/dL 0.1-1.0 Urobilinogen) [facility] [id number] 10:41:00 Test Item Value Reference Range Interpretation Comments U Amph Scr (test code Negative *NA*(10/23/19 = U Amph Scr) 4:41 AM) [facility] [id number] 10:41:00 Test Item Value Reference Range Interpretation Comments U Regine Scr (test code Negative *NA*(10/23/19 = U Regine Scr) 4:41 AM) [facility] [id number] 10:41:00 Test Item Value Reference Range Interpretation Comments U Benzodiaz Scr (test Negative *NA*(10/23/19 code = U Benzodiaz Scr) 4:41 AM) [facility] [id number] 10:41:00 Test Item Value Reference Range Interpretation Comments U Cocaine Scr (test Negative *NA*(10/23/19 code = U Cocaine Scr) 4:41 AM) [facility] [id number] 10:41:00 Test Item Value Reference Range Interpretation Comments U Cannab Scr (test Negative *NA*(10/23/19 code = U Cannab Scr) 4:41 AM) [facility] [id number] 10:41:00 Test Item Value Reference Range Interpretation Comments U Amph Scr (test code Negative *NA*(10/23/19 = U Amph Scr) 4:41 AM) [facility] [id number] 10:41:00 Test Item Value Reference Range Interpretation Comments U Regine Scr (test code Negative *NA*(10/23/19 = U Regine Scr) 4:41 AM) [facility] [id number] 10:41:00 Test Item Value Reference Range Interpretation Comments U Benzodiaz Scr (test Negative *NA*(10/23/19 code = U Benzodiaz Scr) 4:41 AM) [facility] [id number] 10:41:00 Test Item Value Reference Range Interpretation Comments U Cocaine Scr (test Negative *NA*(10/23/19 code = U Cocaine Scr) 4:41 AM) [facility] [id number] 10:41:00 Test Item Value Reference Range Interpretation Comments U Cannab Scr (test Negative *NA*(10/23/19 code = U Cannab Scr) 4:41 AM) [facility] [id number] 10:41:00 Test Item Value Reference Range Interpretation Comments U Opiate Scr (test Positive *ABN*(10/23/19 code = U Opiate Scr) 4:41 AM) [facility] [id number] 10:41:00 Test Item Value Reference Range Interpretation Comments U Phencyclidine Scr (test Negative code = U Phencyclidine *NA*(10/23/19 4:41 Scr) AM) [facility] [id number] 10:41:00 Test Item Value Reference Range Interpretation Comments UDS Note (test code = See Note (10/23/19 4:41 UDS Note) AM) [facility] [id number] 10:41:00 Test Item Value Reference Range Interpretation Comments U Opiate Scr (test Positive *ABN*(10/23/19 code = U Opiate Scr) 4:41 AM) [facility] [id number] 10:41:00 Test Item Value Reference Range Interpretation Comments UA Turbidity (test code = Clear (10/23/19 4:41 UA Turbidity) AM) [facility] [id number] 10:41:00 Test Item Value Reference Range Interpretation Comments UA Spec Grav (test code = UA Spec 1.016 1 Grav) [facility] [id number] 10:41:00 Test Item Value Reference Range Interpretation Comments UA pH (test code = UA pH) 7.0 1 5.0-8.0 [facility] [id number] 10:41:00 Test Item Value Reference Range Interpretation Comments UA Protein (test code = UA >=300 mg/dL Protein) [facility] [id number] 10:41:00 Test Item Value Reference Range Interpretation Comments UA Bili (test code = Negative *NA*(10/23/19 UA Bili) 4:41 AM) [facility] [id number] 10:41:00 Test Item Value Reference Range Interpretation Comments UA Blood (test code = Small *ABN*(10/23/19 UA Blood) 4:41 AM) [facility] [id number] 10:41:00 Test Item Value Reference Range Interpretation Comments UA Nitrite (test code Negative (10/23/19 4:41 = UA Nitrite) AM) [facility] [id number] 10:41:00 Test Item Value Reference Range Interpretation Comments UA Leuk Est (test Negative (10/23/19 4:41 code = UA Leuk Est) AM) [facility] [id number] 10:41:00 Test Item Value Reference Range Interpretation Comments UA WBC (test code = UA WBC) 1 <=5 [facility] [id number] 10:41:00 Test Item Value Reference Range Interpretation Comments UA RBC (test code = UA RBC) 28 <=2 [facility] [id number] 10:41:00 Test Item Value Reference Range Interpretation Comments U Phencyclidine Scr (test Negative code = U Phencyclidine *NA*(10/23/19 4:41 Scr) AM) [facility] [id number] 10:41:00 Test Item Value Reference Range Interpretation Comments UA Sq Epi (test code = UA Sq Epi) None [facility]en [facility] [id number] 10:41:00 Test Item Value Reference Range Interpretation Comments UA Color (test code = UA Color) Straw [facility] [id number] 10:41:00 Test Item Value Reference Range Interpretation Comments UA Glucose (test code = UA Glucose) 500 [facility] [id number] 10:41:00 Test Item Value Reference Range Interpretation Comments UA Ketones (test code = UA Ketones) Negative [facility] [id number] 10:41:00 Test Item Value Reference Range Interpretation Comments UA Urobilinogen (test code = UA <=1.0 mg/dL 0.1-1.0 Urobilinogen) [facility] [id number] 10:41:00 Test Item Value Reference Range Interpretation Comments UDS Note (test code = See Note (10/23/19 4:41 UDS Note) AM) [facility] [id number] 10:41:00 Test Item Value Reference Range Interpretation Comments UA Turbidity (test code = Clear (10/23/19 4:41 UA Turbidity) AM) [facility] [id number] 10:41:00 Test Item Value Reference Range Interpretation Comments UA Spec Grav (test code = UA Spec 1.016 1 Grav) [facility] [id number] 10:41:00 Test Item Value Reference Range Interpretation Comments UA pH (test code = UA pH) 7.0 1 5.0-8.0 [facility] [id number] 10:41:00 Test Item Value Reference Range Interpretation Comments UA Protein (test code = UA >=300 mg/dL Protein) [facility] [id number] 10:41:00 Test Item Value Reference Range Interpretation Comments UA Bili (test code = Negative *NA*(10/23/19 UA Bili) 4:41 AM) [facility] [id number] 10:41:00 Test Item Value Reference Range Interpretation Comments UA Blood (test code = Small *ABN*(10/23/19 UA Blood) 4:41 AM) [facility] [id number] 10:41:00 Test Item Value Reference Range Interpretation Comments UA Nitrite (test code Negative (10/23/19 4:41 = UA Nitrite) AM) [facility] [id number] 10:41:00 Test Item Value Reference Range Interpretation Comments UA Leuk Est (test Negative (10/23/19 4:41 code = UA Leuk Est) AM) [facility] [id number] 10:41:00 Test Item Value Reference Range Interpretation Comments UA WBC (test code = 1 See_Comment [Automa vikki message] The UA WBC) system which ge nerated this result transmit vikki reference range : <=5. The reference range was not used to interpr et this result as cyndee l/abnormal. [facility] [id number] 10:41:00 Test Item Value Reference Range Interpretation Comments UA RBC (test code = 28 See_Comment [Automa vikki message] The UA RBC) system which ge nerated this result transmit vikki reference range : <=2. The reference range was not used to interpr et this result as cyndee l/abnormal. [facility] [id number] 10:41:00 Test Item Value Reference Range Interpretation Comments UA Sq Epi (test code = UA Sq Epi) None [facility]en [facility] [id number] 10:41:00 Test Item Value Reference Range Interpretation Comments UA Color (test code = UA Color) Straw [facility] [id number] 10:41:00 Test Item Value Reference Range Interpretation Comments UA Glucose (test code = UA Glucose) 500 [facility] [id number] 10:41:00 Test Item Value Reference Range Interpretation Comments UA Ketones (test code = UA Ketones) Negative [facility] [id number] 10:41:00 Test Item Value Reference Range Interpretation Comments UA Urobilinogen (test code = UA <=1.0 mg/dL 0.1-1.0 Urobilinogen) [facility] [id number] 10:41:00 Test Item Value Reference Range Interpretation Comments U Amph Scr (test code Negative *NA*(10/23/19 = U Amph Scr) 4:41 AM) [facility] [id number] 10:41:00 Test Item Value Reference Range Interpretation Comments U Regine Scr (test code Negative *NA*(10/23/19 = U Regine Scr) 4:41 AM) [facility] [id number] 10:41:00 Test Item Value Reference Range Interpretation Comments U Benzodiaz Scr (test Negative *NA*(10/23/19 code = U Benzodiaz Scr) 4:41 AM) [facility] [id number] 10:41:00 Test Item Value Reference Range Interpretation Comments U Cocaine Scr (test Negative *NA*(10/23/19 code = U Cocaine Scr) 4:41 AM) [facility] [id number] 10:41:00 Test Item Value Reference Range Interpretation Comments U Cannab Scr (test Negative *NA*(10/23/19 code = U Cannab Scr) 4:41 AM) [facility] [id number] 10:41:00 Test Item Value Reference Range Interpretation Comments U Opiate Scr (test Positive *ABN*(10/23/19 code = U Opiate Scr) 4:41 AM) [facility] [id number] 10:41:00 Test Item Value Reference Range Interpretation Comments U Phencyclidine Scr (test Negative code = U Phencyclidine *NA*(10/23/19 4:41 Scr) AM) [facility] [id number] 10:41:00 Test Item Value Reference Range Interpretation Comments UDS Note (test code = See Note (10/23/19 4:41 UDS Note) AM) [facility] [id number] 10:41:00 Test Item Value Reference Range Interpretation Comments UA Turbidity (test code = Clear (10/23/19 4:41 UA Turbidity) AM) [facility] [id number] 10:41:00 Test Item Value Reference Range Interpretation Comments UA Spec Grav (test code = UA Spec 1.016 1 Grav) [facility] AND [id number] 10:41:00 Test Item Value Reference Range Interpretation Comments UA pH (test code = UA pH) 7.0 1 5.0-8.0 [facility] AND [id number] 10:41:00 Test Item Value Reference Range Interpretation Comments UA Protein (test code = UA >=300 mg/dL Protein) [facility] AND [id number] 10:41:00 Test Item Value Reference Range Interpretation Comments UA Bili (test code = Negative *NA*(10/23/19 UA Bili) 4:41 AM) [facility] AND [id number] 10:41:00 Test Item Value Reference Range Interpretation Comments UA Blood (test code = Small *ABN*(10/23/19 UA Blood) 4:41 AM) [facility] AND [id number] 10:41:00 Test Item Value Reference Range Interpretation Comments UA Nitrite (test code Negative (10/23/19 4:41 = UA Nitrite) AM) [facility] AND [id number] 10:41:00 Test Item Value Reference Range Interpretation Comments UA Leuk Est (test Negative (10/23/19 4:41 code = UA Leuk Est) AM) [facility] AND [id number] 10:41:00 Test Item Value Reference Range Interpretation Comments UA WBC (test code = 1 See_Comment [Automa vikki message] The UA WBC) system which ge nerated this result transmit vikki reference range : <=5. The reference range was not used to interpr et this result as cyndee l/abnormal. [facility] AND [id number] 10:41:00 Test Item Value Reference Range Interpretation Comments UA RBC (test code = 28 See_Comment [Automa vikki message] The UA RBC) system which ge nerated this result transmit vikki reference range : <=2. The reference range was not used to interpr et this result as cyndee l/abnormal. [facility] AND [id number] 10:41:00 Test Item Value Reference Range Interpretation Comments UA Sq Epi (test code = UA Sq Epi) None Seen [facility] AND [id number] 10:41:00 Test Item Value Reference Range Interpretation Comments UA Color (test code = UA Color) Straw [facility] [id number] 10:41:00 Test Item Value Reference Range Interpretation Comments UA Glucose (test code = UA Glucose) 500 [facility] [id number] 10:41:00 Test Item Value Reference Range Interpretation Comments UA Ketones (test code = UA Ketones) Negative [facility] [id number] 10:41:00 Test Item Value Reference Range Interpretation Comments UA Urobilinogen (test code = UA <=1.0 mg/dL 0.1-1.0 Urobilinogen) [facility] [id number] 10:41:00 Test Item Value Reference Range Interpretation Comments U Amph Scr (test code Negative *NA*(10/23/19 = U Amph Scr) 4:41 AM) [facility] [id number] 10:41:00 Test Item Value Reference Range Interpretation Comments U Regine Scr (test code Negative *NA*(10/23/19 = U Regine Scr) 4:41 AM) [facility] [id number] 10:41:00 Test Item Value Reference Range Interpretation Comments U Benzodiaz Scr (test Negative *NA*(10/23/19 code = U Benzodiaz Scr) 4:41 AM) [facility] [id number] 10:41:00 Test Item Value Reference Range Interpretation Comments U Cocaine Scr (test Negative *NA*(10/23/19 code = U Cocaine Scr) 4:41 AM) [facility] [id number] 10:41:00 Test Item Value Reference Range Interpretation Comments U Cannab Scr (test Negative *NA*(10/23/19 code = U Cannab Scr) 4:41 AM) [facility] [id number] 10:41:00 Test Item Value Reference Range Interpretation Comments U Opiate Scr (test Positive *ABN*(10/23/19 code = U Opiate Scr) 4:41 AM) [facility] [id number] 10:41:00 Test Item Value Reference Range Interpretation Comments U Phencyclidine Scr (test Negative code = U Phencyclidine *NA*(10/23/19 4:41 Scr) AM) [facility] [id number] 10:41:00 Test Item Value Reference Range Interpretation Comments UDS Note (test code = See Note (10/23/19 4:41 UDS Note) AM) [facility] [id number] 10:41:00 Test Item Value Reference Range Interpretation Comments UA Turbidity (test code = Clear (10/23/19 4:41 UA Turbidity) AM) [facility] [facility] [id number] 10:41:00 Test Item Value Reference Range Interpretation Comments UA Spec Grav (test code = UA Spec 1.016 1 Grav) [facility] [id number] 10:41:00 Test Item Value Reference Range Interpretation Comments UA pH (test code = UA pH) 7.0 1 5.0-8.0 [facility] [id number] 10:41:00 Test Item Value Reference Range Interpretation Comments UA Protein (test code = UA >=300 mg/dL Protein) [facility] [id number] 10:41:00 Test Item Value Reference Range Interpretation Comments UA Bili (test code = Negative *NA*(10/23/19 UA Bili) 4:41 AM) [facility] [id number] 10:41:00 Test Item Value Reference Range Interpretation Comments UA Blood (test code = Small *ABN*(10/23/19 UA Blood) 4:41 AM) [facility] [id number] 10:41:00 Test Item Value Reference Range Interpretation Comments UA Nitrite (test code Negative (10/23/19 4:41 = UA Nitrite) AM) [facility] [id number] 10:41:00 Test Item Value Reference Range Interpretation Comments UA Leuk Est (test Negative (10/23/19 4:41 code = UA Leuk Est) AM) [facility] [id number] 10:41:00 Test Item Value Reference Range Interpretation Comments UA WBC (test code = 1 See_Comment [Automa vikki message] The UA WBC) system which ge nerated this result transmit vikki reference range : <=5. The reference range was not used to interpr et this result as cyndee l/abnormal. [facility] [id number] 10:41:00 Test Item Value Reference Range Interpretation Comments UA RBC (test code = 28 See_Comment [Automa vikki message] The UA RBC) system which ge nerated this result transmit vikki reference range : <=2. The reference range was not used to interpr et this result as cyndee l/abnormal. [facility] AND [id number] 10:41:00 Test Item Value Reference Range Interpretation Comments UA Sq Epi (test code = UA Sq Epi) None Seen [facility] AND [id number] 10:41:00 Test Item Value Reference Range Interpretation Comments UA Color (test code = UA Color) Straw [facility] AND [id number] 10:41:00 Test Item Value Reference Range Interpretation Comments UA Glucose (test code = UA Glucose) 500 [facility] AND [id number] 10:41:00 Test Item Value Reference Range Interpretation Comments UA Ketones (test code = UA Ketones) Negative [facility] AND [id number] 10:41:00 Test Item Value Reference Range Interpretation Comments UA Urobilinogen (test code = UA <=1.0 mg/dL 0.1-1.0 Urobilinogen) [facility] [id number] 10:41:00 Test Item Value Reference Range Interpretation Comments U Amph Scr (test code Negative *NA*(10/23/19 = U Amph Scr) 4:41 AM) [facility] [id number] 10:41:00 Test Item Value Reference Range Interpretation Comments U Regine Scr (test code Negative *NA*(10/23/19 = U Regine Scr) 4:41 AM) [facility] [id number] 10:41:00 Test Item Value Reference Range Interpretation Comments U Benzodiaz Scr (test Negative *NA*(10/23/19 code = U Benzodiaz Scr) 4:41 AM) [facility] [id number] 10:41:00 Test Item Value Reference Range Interpretation Comments U Cocaine Scr (test Negative *NA*(10/23/19 code = U Cocaine Scr) 4:41 AM) [facility] [id number] 10:41:00 Test Item Value Reference Range Interpretation Comments U Cannab Scr (test Negative *NA*(10/23/19 code = U Cannab Scr) 4:41 AM) [facility] [id number] 10:41:00 Test Item Value Reference Range Interpretation Comments U Opiate Scr (test Positive *ABN*(10/23/19 code = U Opiate Scr) 4:41 AM) [facility] [id number] 10:41:00 Test Item Value Reference Range Interpretation Comments U Phencyclidine Scr (test Negative code = U Phencyclidine *NA*(10/23/19 4:41 Scr) AM) [facility] [id number] 10:41:00 Test Item Value Reference Range Interpretation Comments UDS Note (test code = See Note (10/23/19 4:41 UDS Note) AM) [facility] [id number] 10:41:00 Test Item Value Reference Range Interpretation Comments UA Turbidity (test code = Clear (10/23/19 4:41 UA Turbidity) AM) [facility] [id number] 10:41:00 Test Item Value Reference Range Interpretation Comments UA Spec Grav (test code = UA Spec 1.016 1 Grav) [facility] [id number] 10:41:00 Test Item Value Reference Range Interpretation Comments UA pH (test code = UA pH) 7.0 1 5.0-8.0 [facility] [id number] 10:41:00 Test Item Value Reference Range Interpretation Comments UA Protein (test code = UA >=300 mg/dL Protein) [facility] [id number] 10:41:00 Test Item Value Reference Range Interpretation Comments UA Bili (test code = Negative *NA*(10/23/19 UA Bili) 4:41 AM) [facility] [id number] 10:41:00 Test Item Value Reference Range Interpretation Comments UA Blood (test code = Small *ABN*(10/23/19 UA Blood) 4:41 AM) [facility] [id number] 10:41:00 Test Item Value Reference Range Interpretation Comments UA Nitrite (test code Negative (10/23/19 4:41 = UA Nitrite) AM) [facility] [id number] 10:41:00 Test Item Value Reference Range Interpretation Comments UA Leuk Est (test Negative (10/23/19 4:41 code = UA Leuk Est) AM) [facility] AND [id number] 10:41:00 Test Item Value Reference Range Interpretation Comments UA WBC (test code = UA WBC) 1 <=5 [facility] AND [id number] 10:41:00 Test Item Value Reference Range Interpretation Comments UA RBC (test code = UA RBC) 28 <=2 [facility] AND [id number] 10:41:00 Test Item Value Reference Range Interpretation Comments UA Sq Epi (test code = UA Sq Epi) None Seen [facility] AND [id number] 10:41:00 Test Item Value Reference Range Interpretation Comments UA Color (test code = UA Color) Straw [facility] AND [id number] 10:41:00 Test Item Value Reference Range Interpretation Comments UA Glucose (test code = UA Glucose) 500 [facility] AND [id number] 10:41:00 Test Item Value Reference Range Interpretation Comments UA Ketones (test code = UA Ketones) Negative [facility] AND [id number] 10:41:00 Test Item Value Reference Range Interpretation Comments UA Urobilinogen (test code = UA <=1.0 mg/dL 0.1-1.0 Urobilinogen) [facility]2019-11-29 09:30:00 Test Item Value Reference Range Interpretation Comments Ketone Quantitative (test code = Ketone 0.08 Quantitative) [facility]2019-11-29 09:30:00 Test Item Value Reference Range Interpretation Comments Osmolality (test code = Osmolality) 320 280-300 [facility]2019-11-29 09:30:00 Test Item Value Reference Range Interpretation Comments Magnesium Lvl (test code = Magnesium 1.8 1.8-2.4 Lvl) [id number] 09:30:00 Test Item Value Reference Range Interpretation Comments INR (test code = INR) 1.00 1 0.85-1.17 [id number] 09:30:00 Test Item Value Reference Range Interpretation Comments PT (test code = PT) 13.0 s 12.0-14.7 [facility] H[id number] 09:30:00 Test Item Value Reference Range Interpretation Comments PTT (test code = PTT) 26.9 s 22.9-35.8 [facility] Hos[id number] 09:30:00 Test Item Value Reference Range Interpretation Comments RBC Morph (test code = Normal (10/23/19 3:30 RBC Morph) AM) [facility] Hospit[id number] 09:30:00 Test Item Value Reference Range Interpretation Comments Plt Morph (test code = Normal (10/23/19 3:30 Plt Morph) AM) [facility] [id number] 09:30:00 Test Item Value Reference Range Interpretation Comments Hgb A1C (test code = Hgb A1C) 7.8 [facility] [id number] 09:30:00 Test Item Value Reference Range Interpretation Comments Ketone Quantitative (test code = Ketone 0.08 Quantitative) [facility]2019-11-29 09:30:00 Test Item Value Reference Range Interpretation Comments Osmolality (test code = Osmolality) 320 280-300 [facility]2019-11-29 09:30:00 Test Item Value Reference Range Interpretation Comments Magnesium Lvl (test code = Magnesium 1.8 1.8-2.4 Lvl) [facility] H[id number] 09:30:00 Test Item Value Reference Range Interpretation Comments INR (test code = INR) 1.00 1 0.85-1.17 [facility] Hospit[id number] 09:30:00 Test Item Value Reference Range Interpretation Comments PT (test code = PT) 13.0 s 12.0-14.7 [facility] Hospit[id number] 09:30:00 Test Item Value Reference Range Interpretation Comments PTT (test code = PTT) 26.9 s 22.9-35.8 [facility] HospitalEmwmsilDEQPVIKKTZ1761-13-61 09:30:00 Test Item Value Reference Range Interpretation Comments RBC Morph (test code = Normal (10/23/19 3:30 RBC Morph) AM) [facility] H[id number] 09:30:00 Test Item Value Reference Range Interpretation Comments Plt Morph (test code = Normal (10/23/19 3:30 Plt Morph) AM) [facility] [id number] 09:30:00 Test Item Value Reference Range Interpretation Comments Hgb A1C (test code = Hgb A1C) 7.8 [facility]2019-11-29 09:30:00 Test Item Value Reference Range Interpretation Comments Ketone Quantitative (test code = Ketone 0.08 Quantitative) [facility]2019-11-29 09:30:00 Test Item Value Reference Range Interpretation Comments Osmolality (test code = Osmolality) 320 280-300 [facility]2019-11-29 09:30:00 Test Item Value Reference Range Interpretation Comments Magnesium Lvl (test code = Magnesium 1.8 1.8-2.4 Lvl) [facility] [id number] 09:30:00 Test Item Value Reference Range Interpretation Comments INR (test code = INR) 1.00 1 0.85-1.17 [facility] Hos[id number] 09:30:00 Test Item Value Reference Range Interpretation Comments PT (test code = PT) 13.0 s 12.0-14.7 [facility] HospitalGgdqlgwZLGGQWYNHQ5958-61-25 09:30:00 Test Item Value Reference Range Interpretation Comments PTT (test code = PTT) 26.9 s 22.9-35.8 [facility] Hos[id number] 09:30:00 Test Item Value Reference Range Interpretation Comments RBC Morph (test code = Normal (10/23/19 3:30 RBC Morph) AM) [facility] HospitalC[id number] 09:30:00 Test Item Value Reference Range Interpretation Comments Plt Morph (test code = Normal (10/23/19 3:30 Plt Morph) AM) [facility] [id number] 09:30:00 Test Item Value Reference Range Interpretation Comments Hgb A1C (test code = Hgb A1C) 7.8 [facility]2019-11-29 09:30:00 Test Item Value Reference Range Interpretation Comments Ketone Quantitative (test code = Ketone 0.08 Quantitative) [facility]2019-11-29 09:30:00 Test Item Value Reference Range Interpretation Comments Osmolality (test code = Osmolality) 320 280-300 [facility]2019-11-29 09:30:00 Test Item Value Reference Range Interpretation Comments Magnesium Lvl (test code = Magnesium 1.8 1.8-2.4 Lvl) [facility] H[id number] 09:30:00 Test Item Value Reference Range Interpretation Comments INR (test code = INR) 1.00 1 0.85-1.17 [facility]NjilywjBHILEULKRM2053-88-00 09:30:00 Test Item Value Reference Range Interpretation Comments PT (test code = PT) 13.0 s 12.0-14.7 [id number] 09:30:00 Test Item Value Reference Range Interpretation Comments PTT (test code = PTT) 26.9 s 22.9-35.8 [facility] Hospit[id number] 09:30:00 Test Item Value Reference Range Interpretation Comments RBC Morph (test code = Normal (10/23/19 3:30 RBC Morph) AM) [facility]HzwsbtsIWMRGUVMEB4365-40-08 09:30:00 Test Item Value Reference Range Interpretation Comments Plt Morph (test code = Normal (10/23/19 3:30 Plt Morph) AM) [facility] [id number] 09:30:00 Test Item Value Reference Range Interpretation Comments Hgb A1C (test code = Hgb A1C) 7.8 [facility]CHE[facility] [id number] 09:30:00 Test Item Value Reference Range Interpretation Comments Ketone Quantitative (test code = Ketone 0.08 Quantitative) [facility]CHE[facility] [id number] 09:30:00 Test Item Value Reference Range Interpretation Comments Osmolality (test code = Osmolality) 320 280-300 [facility]CHE[facility] [id number] 09:30:00 Test Item Value Reference Range Interpretation Comments Magnesium Lvl (test code = Magnesium 1.8 1.8-2.4 Lvl) [facility] Hos[id number] 09:30:00 Test Item Value Reference Range Interpretation Comments INR (test code = INR) 1.00 1 0.85-1.17 [facility] HospitalZ[id number] 09:30:00 Test Item Value Reference Range Interpretation Comments PT (test code = PT) 13.0 s 12.0-14.7 [facility] HospitalTsakbiqXHHQOUNLOR2092-74-29 09:30:00 Test Item Value Reference Range Interpretation Comments PTT (test code = PTT) 26.9 s 22.9-35.8 [facility] Hospit[id number] 09:30:00 Test Item Value Reference Range Interpretation Comments RBC Morph (test code = Normal (10/23/19 3:30 RBC Morph) AM) [facility] HospitalIiqxxajADLNOZUBQZ1054-49-90 09:30:00 Test Item Value Reference Range Interpretation Comments Plt Morph (test code = Normal (10/23/19 3:30 Plt Morph) AM) [facility]2019-11-29 09:30:00 Test Item Value Reference Range Interpretation Comments Hgb A1C (test code = Hgb A1C) 7.8 [facility]2019-11-29 09:30:00 Test Item Value Reference Range Interpretation Comments Ketone Quantitative (test code = Ketone 0.08 Quantitative) [facility]2019-11-29 09:30:00 Test Item Value Reference Range Interpretation Comments Ketone Quantitative (test code = Ketone 0.08 Quantitative) [facility]2019-11-29 09:30:00 Test Item Value Reference Range Interpretation Comments Osmolality (test code = Osmolality) 320 280-300 [facility]2019-11-29 09:30:00 Test Item Value Reference Range Interpretation Comments Magnesium Lvl (test code = Magnesium 1.8 1.8-2.4 Lvl) [facility] Hospit[id number] 09:30:00 Test Item Value Reference Range Interpretation Comments INR (test code = INR) 1.00 1 0.85-1.17 [facility] HospitalEitofocVWBMYOMSYW2519-94-01 09:30:00 Test Item Value Reference Range Interpretation Comments PT (test code = PT) 13.0 s 12.0-14.7 [facility] HospitalKfalrhwFAWSQTZVPX1379-49-52 09:30:00 Test Item Value Reference Range Interpretation Comments PTT (test code = PTT) 26.9 s 22.9-35.8 [facility] HospitalBpdkecpTLEFJKKDYV9047-71-33 09:30:00 Test Item Value Reference Range Interpretation Comments RBC Morph (test code = Normal (10/23/19 3:30 RBC Morph) AM) [facility] HospitalBzkopbuPHPATMVHBD3646-75-65 09:30:00 Test Item Value Reference Range Interpretation Comments Plt Morph (test code = Normal (10/23/19 3:30 Plt Morph) AM) [facility]2019-11-29 09:30:00 Test Item Value Reference Range Interpretation Comments Hgb A1C (test code = Hgb A1C) 7.8 [facility]2019-11-29 09:30:00 Test Item Value Reference Range Interpretation Comments Osmolality (test code = Osmolality) 320 280-300 [facility]2019-11-29 09:30:00 Test Item Value Reference Range Interpretation Comments Magnesium Lvl (test code = Magnesium 1.8 1.8-2.4 Lvl) [facility] HospitalQvkrisyDXNBVJFHFR0501-34-63 09:30:00 Test Item Value Reference Range Interpretation Comments INR (test code = INR) 1.00 1 0.85-1.17 [facility] HospitalZjryvjoRIDIQLMNYM0168-14-26 09:30:00 Test Item Value Reference Range Interpretation Comments PT (test code = PT) 13.0 s 12.0-14.7 [facility] HospitalOufvrizJKYBHDJDIY5148-77-14 09:30:00 Test Item Value Reference Range Interpretation Comments PTT (test code = PTT) 26.9 s 22.9-35.8 [facility] HospitalAhqccbjZKYJNHRZWG6369-15-85 09:30:00 Test Item Value Reference Range Interpretation Comments RBC Morph (test code = Normal (10/23/19 3:30 RBC Morph) AM) [facility] HospitalXtcdnhdECZZKPKSHI9493-72-75 09:30:00 Test Item Value Reference Range Interpretation Comments Plt Morph (test code = Normal (10/23/19 3:30 Plt Morph) AM) [facility] [id number] 09:30:00 Test Item Value Reference Range Interpretation Comments Hgb A1C (test code = Hgb A1C) 7.8 [facility] [id number] 09:30:00 Test Item Value Reference Range Interpretation Comments Ketone Quantitative (test code = Ketone 0.08 Quantitative) [facility] [id number] 09:30:00 Test Item Value Reference Range Interpretation Comments Osmolality (test code = Osmolality) 320 280-300 [facility]2019-11-29 09:30:00 Test Item Value Reference Range Interpretation Comments Magnesium Lvl (test code = Magnesium 1.8 1.8-2.4 Lvl) [facility] HospitalTjewvwpVFBPJPDVVC8339-56-51 09:30:00 Test Item Value Reference Range Interpretation Comments INR (test code = INR) 1.00 1 0.85-1.17 [facility] HospitalCcqqwspIXQBQDGQXJ7756-80-28 09:30:00 Test Item Value Reference Range Interpretation Comments PT (test code = PT) 13.0 s 12.0-14.7 [facility] HospitalCcjciqdYVMNOWNRKK5917-83-27 09:30:00 Test Item Value Reference Range Interpretation Comments PTT (test code = PTT) 26.9 s 22.9-35.8 [facility] HospitalQysglnvUXAGIEGYNZ0035-16-17 09:30:00 Test Item Value Reference Range Interpretation Comments RBC Morph (test code = Normal (10/23/19 3:30 RBC Morph) AM) [facility] HospitalNrbwcobYNVDBXHAWX5298-94-43 09:30:00 Test Item Value Reference Range Interpretation Comments Plt Morph (test code = Normal (10/23/19 3:30 Plt Morph) AM) [facility] [id number] 09:30:00 Test Item Value Reference Range Interpretation Comments Hgb A1C (test code = Hgb A1C) 7.8 [facility] [id number] 09:30:00 Test Item Value Reference Range Interpretation Comments Ketone Quantitative (test code = Ketone 0.08 Quantitative) [facility]2019-11-29 09:30:00 Test Item Value Reference Range Interpretation Comments Osmolality (test code = Osmolality) 320 280-300 [facility]2019-11-29 09:30:00 Test Item Value Reference Range Interpretation Comments Magnesium Lvl (test code = Magnesium 1.8 1.8-2.4 Lvl) [facility] HospitalUcnxthbXQAYSFGACI5212-28-80 09:30:00 Test Item Value Reference Range Interpretation Comments INR (test code = INR) 1.00 1 0.85-1.17 [facility] HospitalAhdghjlWXREKWCJQZ9831-67-25 09:30:00 Test Item Value Reference Range Interpretation Comments PT (test code = PT) 13.0 s 12.0-14.7 [facility] HospitalAyuiaplHWOQJBHGRW9724-51-34 09:30:00 Test Item Value Reference Range Interpretation Comments PTT (test code = PTT) 26.9 s 22.9-35.8 [facility] HospitalUiwzwroTTBKRKMNZI3773-97-81 09:30:00 Test Item Value Reference Range Interpretation Comments RBC Morph (test code = Normal (10/23/19 3:30 RBC Morph) AM) [facility] HospitalPgwuvurUFAXHBGQUG0077-18-88 09:30:00 Test Item Value Reference Range Interpretation Comments Plt Morph (test code = Normal (10/23/19 3:30 Plt Morph) AM) [facility]2019-11-29 09:30:00 Test Item Value Reference Range Interpretation Comments Hgb A1C (test code = Hgb A1C) 7.8 [facility]2019-11-29 09:30:00 Test Item Value Reference Range Interpretation Comments Ketone Quantitative (test code = Ketone 0.08 Quantitative) [facility]2019-11-29 09:30:00 Test Item Value Reference Range Interpretation Comments Osmolality (test code = Osmolality) 320 280-300 [facility]2019-11-29 09:30:00 Test Item Value Reference Range Interpretation Comments Magnesium Lvl (test code = Magnesium 1.8 1.8-2.4 Lvl) [facility] HospitalMaxshorWASFOOGSRV1208-92-26 09:30:00 Test Item Value Reference Range Interpretation Comments INR (test code = INR) 1.00 1 0.85-1.17 [facility] HospitalUkmzbdmRYRZYMJKXA5200-84-98 09:30:00 Test Item Value Reference Range Interpretation Comments PT (test code = PT) 13.0 s 12.0-14.7 [facility] HospitalDppwzclIQEAJFQCYA2519-76-29 09:30:00 Test Item Value Reference Range Interpretation Comments PTT (test code = PTT) 26.9 s 22.9-35.8 [facility] HospitalKkkszavJCNKGVBYYG4461-61-33 09:30:00 Test Item Value Reference Range Interpretation Comments RBC Morph (test code = Normal (10/23/19 3:30 RBC Morph) AM) [facility] HospitalEljojegMWKJNAABWN9351-92-17 09:30:00 Test Item Value Reference Range Interpretation Comments Plt Morph (test code = Normal (10/23/19 3:30 Plt Morph) AM) [facility]2019-11-29 09:30:00 Test Item Value Reference Range Interpretation Comments Hgb A1C (test code = Hgb A1C) 7.8 [facility]2019-11-29 09:30:00 Test Item Value Reference Range Interpretation Comments Ketone Quantitative (test code = Ketone 0.08 Quantitative) [facility]2019-11-29 09:30:00 Test Item Value Reference Range Interpretation Comments Osmolality (test code = Osmolality) 320 280-300 [facility]2019-11-29 09:30:00 Test Item Value Reference Range Interpretation Comments Magnesium Lvl (test code = Magnesium 1.8 1.8-2.4 Lvl) [facility] HospitalEwidgylMTMDMVISTT2086-46-47 09:30:00 Test Item Value Reference Range Interpretation Comments INR (test code = INR) 1.00 1 0.85-1.17 [facility] HospitalHcpilkmFFXTYBVUKQ0517-24-42 09:30:00 Test Item Value Reference Range Interpretation Comments PT (test code = PT) 13.0 s 12.0-14.7 [facility] HospitalCcdrjrnQEFENIMDSJ1635-45-71 09:30:00 Test Item Value Reference Range Interpretation Comments PTT (test code = PTT) 26.9 s 22.9-35.8 [facility] HospitalNnwdvuxCGTGDSDMVS5539-89-77 09:30:00 Test Item Value Reference Range Interpretation Comments RBC Morph (test code = Normal (10/23/19 3:30 RBC Morph) AM) [facility] HospitalMxejrzwVXNAKFUVJC2295-91-69 09:30:00 Test Item Value Reference Range Interpretation Comments Plt Morph (test code = Normal (10/23/19 3:30 Plt Morph) AM) [facility] [id number] 09:30:00 Test Item Value Reference Range Interpretation Comments Hgb A1C (test code = Hgb A1C) 7.8 [facility] NWNBZ9979-19-29 09:30:00 Test Item Value Reference Range Interpretation Comments Ketone Quantitative (test code = Ketone 0.08 Quantitative) [facility] [id number] 09:30:00 Test Item Value Reference Range Interpretation Comments Osmolality (test code = Osmolality) 320 280-300 [facility]2019-11-29 09:30:00 Test Item Value Reference Range Interpretation Comments Magnesium Lvl (test code = Magnesium 1.8 1.8-2.4 Lvl) [facility] HospitalUeptihbPWYYLVSDXI5408-85-08 09:30:00 Test Item Value Reference Range Interpretation Comments INR (test code = INR) 1.00 1 0.85-1.17 [facility]oxbdcyULPROZONVE3644-11-46 09:30:00 Test Item Value Reference Range Interpretation Comments PT (test code = PT) 13.0 s 12.0-14.7 [facility] HospitalMmetcyiMROOHUYCNS1991-50-19 09:30:00 Test Item Value Reference Range Interpretation Comments PTT (test code = PTT) 26.9 s 22.9-35.8 [facility] HospitalRugleafZZGKFINGNW9923-84-33 09:30:00 Test Item Value Reference Range Interpretation Comments RBC Morph (test code = Normal (10/23/19 3:30 RBC Morph) AM) [facility] HospitalJzkfktzEKENEZJYZQ0621-23-22 09:30:00 Test Item Value Reference Range Interpretation Comments Plt Morph (test code = Normal (10/23/19 3:30 Plt Morph) AM) [facility]2019-11-29 09:30:00 Test Item Value Reference Range Interpretation Comments Hgb A1C (test code = Hgb A1C) 7.8 [facility]2019-11-29 09:30:00 Test Item Value Reference Range Interpretation Comments Ketone Quantitative (test code = Ketone 0.08 Quantitative) [facility]2019-11-29 09:30:00 Test Item Value Reference Range Interpretation Comments Osmolality (test code = Osmolality) 320 280-300 [facility]2019-11-29 09:30:00 Test Item Value Reference Range Interpretation Comments Magnesium Lvl (test code = Magnesium 1.8 1.8-2.4 Lvl) [facility] HospitalCwqbscyIUTJCNVTKJ6431-25-44 09:30:00 Test Item Value Reference Range Interpretation Comments INR (test code = INR) 1.00 1 0.85-1.17 [facility] HospitalIqechzbABKFZRISCX6081-50-80 09:30:00 Test Item Value Reference Range Interpretation Comments PT (test code = PT) 13.0 s 12.0-14.7 [facility] HospitalZmtinfgMGKDHCTAXJ4452-35-99 09:30:00 Test Item Value Reference Range Interpretation Comments PTT (test code = PTT) 26.9 s 22.9-35.8 [facility] HospitalSfrveafGJOLXEYMBQ2043-08-02 09:30:00 Test Item Value Reference Range Interpretation Comments RBC Morph (test code = Normal (10/23/19 3:30 RBC Morph) AM) [facility] HospitalQsczebjSPERDAIDDT9329-83-95 09:30:00 Test Item Value Reference Range Interpretation Comments Plt Morph (test code = Normal (10/23/19 3:30 Plt Morph) AM) [facility]2019-11-29 09:30:00 Test Item Value Reference Range Interpretation Comments Hgb A1C (test code = Hgb A1C) 7.8 [facility]2019-11-29 09:30:00 Test Item Value Reference Range Interpretation Comments Ketone Quantitative (test code = Ketone 0.08 Quantitative) [facility] [id number] 09:30:00 Test Item Value Reference Range Interpretation Comments Osmolality (test code = Osmolality) 320 280-300 [facility]2019-11-29 09:30:00 Test Item Value Reference Range Interpretation Comments Magnesium Lvl (test code = Magnesium 1.8 1.8-2.4 Lvl) [facility] HospitalEvvncuvCDUOINLHPE3549-36-38 09:30:00 Test Item Value Reference Range Interpretation Comments INR (test code = INR) 1.00 1 0.85-1.17 [facility] HospitalCxwjabwPPNGUGNDSY5883-26-73 09:30:00 Test Item Value Reference Range Interpretation Comments PT (test code = PT) 13.0 s 12.0-14.7 [facility] HospitalFsinivfSDFRIOPOIX7552-47-80 09:30:00 Test Item Value Reference Range Interpretation Comments PTT (test code = PTT) 26.9 s 22.9-35.8 [facility] HospitalZturlciLPHAZUAQAL5093-39-86 09:30:00 Test Item Value Reference Range Interpretation Comments RBC Morph (test code = Normal (10/23/19 3:30 RBC Morph) AM) [facility] HospitalWdpccalBEJCEJNVFF4121-35-35 09:30:00 Test Item Value Reference Range Interpretation Comments Plt Morph (test code = Normal (10/23/19 3:30 Plt Morph) AM) [facility] OAGWRRNQX1914-57-46 09:30:00 Test Item Value Reference Range Interpretation Comments Hgb A1C (test code = Hgb A1C) 7.8 [facility]2019-11-29 09:30:00 Test Item Value Reference Range Interpretation Comments Ketone Quantitative (test code = Ketone 0.08 Quantitative) [facility]2019-11-29 09:30:00 Test Item Value Reference Range Interpretation Comments Osmolality (test code = Osmolality) 320 280-300 [facility]2019-11-29 09:30:00 Test Item Value Reference Range Interpretation Comments Magnesium Lvl (test code = Magnesium 1.8 1.8-2.4 Lvl) [facility] HospitalGwsvrjnXPUMRMXFVK5693-33-30 09:30:00 Test Item Value Reference Range Interpretation Comments INR (test code = INR) 1.00 1 0.85-1.17 [facility] HospitalCtewcxyRKVRSNDBIJ0631-25-51 09:30:00 Test Item Value Reference Range Interpretation Comments PT (test code = PT) 13.0 s 12.0-14.7 [facility] HospitalCfphjrxWGISAPCUYF1166-28-05 09:30:00 Test Item Value Reference Range Interpretation Comments PTT (test code = PTT) 26.9 s 22.9-35.8 [facility] HospitalMkonvlnTILMNKBVOW3412-63-48 09:30:00 Test Item Value Reference Range Interpretation Comments RBC Morph (test code = Normal (10/23/19 3:30 RBC Morph) AM) [facility] HospitalUzqgwbvUTXFUSGUWC1210-28-77 09:30:00 Test Item Value Reference Range Interpretation Comments Plt Morph (test code = Normal (10/23/19 3:30 Plt Morph) AM) [facility] RKNIFABJZ8766-22-60 09:30:00 Test Item Value Reference Range Interpretation Comments Hgb A1C (test code = Hgb A1C) 7.8 [facility] AJHMW4083-40-17 09:30:00 Test Item Value Reference Range Interpretation Comments Ketone Quantitative (test code = Ketone 0.08 Quantitative) [facility]2019-11-29 09:30:00 Test Item Value Reference Range Interpretation Comments Osmolality (test code = Osmolality) 320 280-300 [facility]2019-11-29 09:30:00 Test Item Value Reference Range Interpretation Comments Magnesium Lvl (test code = Magnesium 1.8 1.8-2.4 Lvl) [facility] HospitalBlotbqoKMZHBRSLNJ9595-32-84 09:30:00 Test Item Value Reference Range Interpretation Comments INR (test code = INR) 1.00 1 0.85-1.17 [facility] HospitalVsgytgaBBWMGNOUYZ9384-20-20 09:30:00 Test Item Value Reference Range Interpretation Comments PT (test code = PT) 13.0 s 12.0-14.7 [facility] HospitalHqrynyxDVDGMWDVGQ1122-68-38 09:30:00 Test Item Value Reference Range Interpretation Comments PTT (test code = PTT) 26.9 s 22.9-35.8 [facility] HospitalMkrbureAXWXNXAMSY9696-44-76 09:30:00 Test Item Value Reference Range Interpretation Comments RBC Morph (test code = Normal (10/23/19 3:30 RBC Morph) AM) [facility] HospitalWhdjvnpDQXVCNDAFD3527-43-15 09:30:00 Test Item Value Reference Range Interpretation Comments Plt Morph (test code = Normal (10/23/19 3:30 Plt Morph) AM) [facility]2019-11-29 09:30:00 Test Item Value Reference Range Interpretation Comments Hgb A1C (test code = Hgb A1C) 7.8 [facility]2019-11-29 09:30:00 Test Item Value Reference Range Interpretation Comments Ketone Quantitative (test code = Ketone 0.08 Quantitative) [facility]2019-11-29 09:30:00 Test Item Value Reference Range Interpretation Comments Osmolality (test code = Osmolality) 320 280-300 [facility]2019-11-29 09:30:00 Test Item Value Reference Range Interpretation Comments Magnesium Lvl (test code = Magnesium 1.8 1.8-2.4 Lvl) [facility] HospitalGpnpzmaAXLXHOJGEF9586-33-66 09:30:00 Test Item Value Reference Range Interpretation Comments INR (test code = INR) 1.00 1 0.85-1.17 [facility] HospitalXqnjgvqAYFCBWNMCS0055-49-16 09:30:00 Test Item Value Reference Range Interpretation Comments PT (test code = PT) 13.0 s 12.0-14.7 [facility] HospitalZnzzoudCEXXCPNGZE8062-94-59 09:30:00 Test Item Value Reference Range Interpretation Comments PTT (test code = PTT) 26.9 s 22.9-35.8 [facility] HospitalTcqjwenYOKYBANFZJ8896-37-52 09:30:00 Test Item Value Reference Range Interpretation Comments RBC Morph (test code = Normal (10/23/19 3:30 RBC Morph) AM) [facility] HospitalFaaxqwbKDEIEQEUFL7885-18-79 09:30:00 Test Item Value Reference Range Interpretation Comments Plt Morph (test code = Normal (10/23/19 3:30 Plt Morph) AM) [facility]2019-11-29 09:30:00 Test Item Value Reference Range Interpretation Comments Hgb A1C (test code = Hgb A1C) 7.8 [facility]2019-11-29 09:30:00 Test Item Value Reference Range Interpretation Comments Ketone Quantitative (test code = Ketone 0.08 Quantitative) [facility]2019-11-29 09:30:00 Test Item Value Reference Range Interpretation Comments Osmolality (test code = Osmolality) 320 280-300 [facility]2019-11-29 09:30:00 Test Item Value Reference Range Interpretation Comments Magnesium Lvl (test code = Magnesium 1.8 1.8-2.4 Lvl) [facility] HospitalKcrfdaxUVDKOECSSZ6351-24-27 09:30:00 Test Item Value Reference Range Interpretation Comments INR (test code = INR) 1.00 1 0.85-1.17 [facility] HospitalDbbrjfwIKIRBZXYTA3909-99-03 09:30:00 Test Item Value Reference Range Interpretation Comments PT (test code = PT) 13.0 s 12.0-14.7 [facility] HospitalWsmbrkqCUKDDTKMYF4468-38-96 09:30:00 Test Item Value Reference Range Interpretation Comments PTT (test code = PTT) 26.9 s 22.9-35.8 [facility] HospitalOaaojfbDNMPFIVFGK3758-69-26 09:30:00 Test Item Value Reference Range Interpretation Comments RBC Morph (test code = Normal (10/23/19 3:30 RBC Morph) AM) [facility] HospitalFcbfcalRRPFLPWUIY1477-55-57 09:30:00 Test Item Value Reference Range Interpretation Comments Plt Morph (test code = Normal (10/23/19 3:30 Plt Morph) AM) [facility] [id number] 09:30:00 Test Item Value Reference Range Interpretation Comments Hgb A1C (test code = Hgb A1C) 7.8 [facility]2019-11-29 09:30:00 Test Item Value Reference Range Interpretation Comments Ketone Quantitative (test code = Ketone 0.08 Quantitative) [facility]2019-11-29 09:30:00 Test Item Value Reference Range Interpretation Comments Osmolality (test code = Osmolality) 320 280-300 [facility]2019-11-29 09:30:00 Test Item Value Reference Range Interpretation Comments Magnesium Lvl (test code = Magnesium 1.8 1.8-2.4 Lvl) [facility] HospitalPolyaxdBXEMVFSGMJ8801-26-71 09:30:00 Test Item Value Reference Range Interpretation Comments INR (test code = INR) 1.00 1 0.85-1.17 [facility] HospitalMfvfspgASCMIJFFYB0664-92-08 09:30:00 Test Item Value Reference Range Interpretation Comments PT (test code = PT) 13.0 s 12.0-14.7 [facility] HospitalZxzuigvUWZULPMPMU7187-38-84 09:30:00 Test Item Value Reference Range Interpretation Comments PTT (test code = PTT) 26.9 s 22.9-35.8 [facility] HospitalHxmrbrbKXGGJGPTHO6838-55-86 09:30:00 Test Item Value Reference Range Interpretation Comments RBC Morph (test code = Normal (10/23/19 3:30 RBC Morph) AM) [facility] HospitalYojkfkuTOESESAAUH3625-62-13 09:30:00 Test Item Value Reference Range Interpretation Comments Plt Morph (test code = Normal (10/23/19 3:30 Plt Morph) AM) [facility]2019-11-29 09:30:00 Test Item Value Reference Range Interpretation Comments Hgb A1C (test code = Hgb A1C) 7.8 [facility]2019-11-29 09:30:00 Test Item Value Reference Range Interpretation Comments Ketone Quantitative (test code = Ketone 0.08 Quantitative) [facility]2019-11-29 09:30:00 Test Item Value Reference Range Interpretation Comments Osmolality (test code = Osmolality) 320 280-300 [facility]2019-11-29 09:30:00 Test Item Value Reference Range Interpretation Comments Magnesium Lvl (test code = Magnesium 1.8 1.8-2.4 Lvl) [facility] HospitalUiwetklGTQUCPECHX7557-09-73 09:30:00 Test Item Value Reference Range Interpretation Comments INR (test code = INR) 1.00 1 0.85-1.17 [facility] HospitalIdkqyhvDJDAWKJMUQ1138-29-87 09:30:00 Test Item Value Reference Range Interpretation Comments PT (test code = PT) 13.0 s 12.0-14.7 [facility] HospitalIkwhjzoGLKUDZEIYQ7237-77-15 09:30:00 Test Item Value Reference Range Interpretation Comments PTT (test code = PTT) 26.9 s 22.9-35.8 [facility] HospitalEvzqeroMXXSWDWVKR1204-34-47 09:30:00 Test Item Value Reference Range Interpretation Comments RBC Morph (test code = Normal (10/23/19 3:30 RBC Morph) AM) [facility] HospitalSlssupkGHYKKGXAQP9004-20-16 09:30:00 Test Item Value Reference Range Interpretation Comments Plt Morph (test code = Normal (10/23/19 3:30 Plt Morph) AM) [facility]2019-11-29 09:30:00 Test Item Value Reference Range Interpretation Comments Hgb A1C (test code = Hgb A1C) 7.8 [facility] CUFIK2296-11-20 09:30:00 Test Item Value Reference Range Interpretation Comments Ketone Quantitative (test code = Ketone 0.08 Quantitative) [facility] [id number] 09:30:00 Test Item Value Reference Range Interpretation Comments Osmolality (test code = Osmolality) 320 280-300 [facility]2019-11-29 09:30:00 Test Item Value Reference Range Interpretation Comments Magnesium Lvl (test code = Magnesium 1.8 1.8-2.4 Lvl) [facility] HospitalKoxxbcfICBVEUQIOM3347-80-87 09:30:00 Test Item Value Reference Range Interpretation Comments INR (test code = INR) 1.00 1 0.85-1.17 [facility] HospitalTuyhhkhKNVXXHVSII3282-26-61 09:30:00 Test Item Value Reference Range Interpretation Comments PT (test code = PT) 13.0 s 12.0-14.7 [facility] HospitalVqjvqplFVSBEFPKPW8265-61-17 09:30:00 Test Item Value Reference Range Interpretation Comments PTT (test code = PTT) 26.9 s 22.9-35.8 [facility] HospitalXlrpnkgXPWUCGVDWU3011-97-17 09:30:00 Test Item Value Reference Range Interpretation Comments RBC Morph (test code = Normal (10/23/19 3:30 RBC Morph) AM) [facility] HospitalAncfkcgMUXPCAAXHN6804-44-14 09:30:00 Test Item Value Reference Range Interpretation Comments Plt Morph (test code = Normal (10/23/19 3:30 Plt Morph) AM) [facility] [id number] 09:30:00 Test Item Value Reference Range Interpretation Comments Hgb A1C (test code = Hgb A1C) 7.8 [facility] [id number] 11:48:00 Test Item Value Reference Range Interpretation Comments GLUCOSE BEDSIDE TESTING (test code 175 MG/DL 60-99 H = GLUBED) BASIC METABOLIC [id number] 07:36:00 Test Item Value Reference Range Interpretation [...] 8.8 MG/DL 8.4-10.2 N CA) CBC W/AUTO [id number] 07:01:00 Test Item Value Reference Range Interpretation [...] 0.00 K/mm3 0.0-0.1 N NRBC#) GLUCOSE BEDSIDE [id number] 06:05:00 Test Item Value Reference Range Interpretation Comments GLUCOSE BEDSIDE TESTING (test code 175 MG/DL 60-99 H = GLUBED) GLUCOSE BEDSIDE [id number] 21:34:00 Test Item Value Reference Range Interpretation Comments GLUCOSE BEDSIDE TESTING (test code 274 MG/DL 60-99 H = GLUBED) GLUCOSE BEDSIDE [id number] 16:05:00 Test Item Value Reference Range Interpretation Comments GLUCOSE BEDSIDE TESTING (test code 186 MG/DL 60-99 H = GLUBED) GLUCOSE BEDSIDE [id number] 11:29:00 Test Item Value Reference Range Interpretation Comments GLUCOSE BEDSIDE TESTING (test code 347 MG/DL 60-99 HH = GLUBED) GLUCOSE BEDSIDE [id number] 07:59:00 Test Item Value Reference Range Interpretation Comments GLUCOSE BEDSIDE TESTING (test code 325 MG/DL 60-99 HH = GLUBED) BASIC METABOLIC [id number] 05:42:00 Test Item Value Reference Range Interpretation [...] 8.8 MG/DL 8.4-10.2 N CA) CBC W/AUTO [id number] 05:16:00 Test Item Value Reference Range Interpretation [...] 0.00 K/mm3 0.0-0.1 N NRBC#) GLUCOSE BEDSIDE [id number] 20:28:00 Test Item Value Reference Range Interpretation Comments GLUCOSE BEDSIDE TESTING (test code 253 MG/DL 60-99 H = GLUBED) GLUCOSE BEDSIDE [id number] 16:21:00 Test Item Value Reference Range Interpretation Comments GLUCOSE BEDSIDE TESTING (test code 237 MG/DL 60-99 H = GLUBED) GLUCOSE BEDSIDE [id number] 11:29:00 Test Item Value Reference Range Interpretation Comments GLUCOSE BEDSIDE TESTING (test code 187 MG/DL 60-99 H = GLUBED) GLUCOSE BEDSIDE [id number] 11:03:00 Test Item Value Reference Range Interpretation Comments GLUCOSE BEDSIDE TESTING (test code 202 MG/DL 60-99 H = GLUBED) GLUCOSE BEDSIDE [id number] 20:30:00 Test Item Value Reference Range Interpretation Comments GLUCOSE BEDSIDE TESTING (test code 142 MG/DL 60-99 H = GLUBED) GLUCOSE BEDSIDE [id number] 16:07:00 Test Item Value Reference Range Interpretation Comments GLUCOSE BEDSIDE TESTING (test code 368 MG/DL 60-99 HH = GLUBED) GLUCOSE BEDSIDE [id number] 16:07:00 Test Item Value Reference Range Interpretation Comments GLUCOSE BEDSIDE TESTING (test code 361 MG/DL 60-99 HH = GLUBED) GLUCOSE BEDSIDE [id number] 09:03:00 Test Item Value Reference Range Interpretation Comments GLUCOSE BEDSIDE TESTING (test code 211 MG/DL 60-99 H = GLUBED) GLUCOSE BEDSIDE [id number] 08:30:00 Test Item Value Reference Range Interpretation Comments GLUCOSE BEDSIDE TESTING (test code 199 MG/DL 60-99 H = GLUBED) GLUCOSE BEDSIDE [id number] 08:03:00 Test Item Value Reference Range Interpretation Comments GLUCOSE BEDSIDE TESTING (test code 190 MG/DL 60-99 H = GLUBED) GLUCOSE BEDSIDE [id number] 20:23:00 Test Item Value Reference Range Interpretation Comments GLUCOSE BEDSIDE TESTING (test code 222 MG/DL 60-99 H = GLUBED) GLUCOSE BEDSIDE [id number] 12:52:00 Test Item Value Reference Range Interpretation Comments GLUCOSE BEDSIDE TESTING (test code 204 MG/DL 60-99 H = GLUBED) GLUCOSE BEDSIDE [id number] 07:54:00 Test Item Value Reference Range Interpretation Comments GLUCOSE BEDSIDE TESTING (test code 186 MG/DL 60-99 H = GLUBED) ALLIE [id number] 07:32:00 Test Item Value Reference Range Interpretation Comments ALLIE DIRECT (test code Negative () Negat gianna <1:80 = ANADIR) Borderline 1:80 Positive >1:80Performed At: [facility] [address] [id number] paige Leach MD Ph:[phone] AB HEPATITIS B [id number] 07:32:00 Test Item Value Reference Range Interpretation Comments AB HEPATITIS B POSITIVE SURFACE (test code = HBSAB) CLIN ICAL INTERPRETATION OF IMMUNE STATUS *NEGATIVE: Inconsistent wi th immunity to HBV infection, less than 5.0 mIU/mL POSITIVE : Consistent with immunity to HBV infectio n, greater than 10.0 mIU/mL AB HEPATITIS B [id number] 07:32:00 Test Item Value Reference Range Interpretation Comments AB HEPATITIS B CORE (test code = POSITIVE NONREACTIVE HBCAB) AB HEPATITIS C [id number] 07:32:00 Test Item Value Reference Range Interpretation Comments AB HEPATITIS C (test code = HCVAB) NEGATIVE NONREACTIVE AB DNA DOUBLE [id number] 07:32:00 Test Item Value Reference Range Interpretation Comments AB DNA DOUBLE STRAND 1 IU/mL 0-9 Negati ve <5 Equivocal 5 (test code = DNADSAB) - 9 Po sitive >9Performed At: HD [facility] [address] [id number] Leach MD Ph:[phone] COMPLEMENT [id number] 07:32:00 Test Item Value Reference Range Interpretation Comments COMPLEMENT C3 (test 131 mg/dL 82-167 Performe d At: HD code = COMC3) [facility] [address] [place] [address] [id number] Leach MD Ph:[phone] COMPLEMENT [id number] 07:32:00 Test Item Value Reference Range Interpretation Comments COMPLEMENT C4 (test code = COMC4) 35 mg/dL 14-44 BASIC METABOLIC [id number] 05:09:00 Test Item Value Reference Range Interpretation [...] 8.6 MG/DL 8.4-10.2 N CA) CBC W/AUTO [id number] 04:50:00 Test Item Value Reference Range Interpretation [...] (test code = 0.02 K/mm3 0.0-0.1 N [facility]#) GLUCOSE BEDSIDE [id number] 22:11:00 Test Item Value Reference Range Interpretation Comments GLUCOSE BEDSIDE TESTING (test code 242 MG/DL 60-99 H = GLUBED) GLUCOSE BEDSIDE [id number] 21:10:00 Test Item Value Reference Range Interpretation Comments GLUCOSE BEDSIDE TESTING (test code 213 MG/DL 60-99 H = GLUBED) GLUCOSE BEDSIDE [id number] 16:23:00 Test Item Value Reference Range Interpretation Comments GLUCOSE BEDSIDE TESTING (test code 164 MG/DL 60-99 H = GLUBED) GLUCOSE BEDSIDE [id number] 12:33:00 Test Item Value Reference Range Interpretation Comments GLUCOSE BEDSIDE TESTING (test code 287 MG/DL 60-99 H = GLUBED) GLUCOSE BEDSIDE [id number] 08:34:00 Test Item Value Reference Range Interpretation Comments GLUCOSE BEDSIDE TESTING (test code 233 MG/DL 60-99 H = GLUBED) - US GUIDANCE VASC [id number] 07:50:00 Patient Name: CITLALY DAVIS Unit No: [id number] EXAMS: CPT CODE: [id number] US GUIDANCE VASC ACCESS [id number] Procedure: Right IJ tunneled, cuffed hemodialysis catheter placement. Location: B2 Clinical Indication: Renal Failure Technique: Written informed consent was obtained. Total fluoroscopy time was 0.3 minutes. Air kerma was 2.9 mGy. All elements of maximum sterile barrier technique were utilized throughout the procedure. Moderate sedation was given using Versed and fentanyl. Intraservice moderate s edation time was 30 minutes. Continuous cardiopulmonary monitoring was performed by the nurse. Ultrasound of the right IJ showed the vessel to be patent and compressible. Using ultrasound guidance, theright IJ was accessed with a 21- gauge needle and 5-[place] micropuncture set. An image was stored for [...] m2): Air Kerma (mGy): Trnscrpt: 07/29/2019 (0750) [email or web address] [facility] NAME: CITLALY DAVIS [address] PHYS: Gerry DELGADO Do, [place] [address] : 1960 AGE: 59 SEX: F LOC: Z.343 A PHONE #: [phone] EXAM DATE: 07/28/2019 STATUS: ADM IN FAX #: [phone] RAD #: D/C DT PAGE 1 Signed Report- FLUORO GUID CLRT ACC [id number] 07:50:00 Patient Name: CITLALY DAVIS Unit No: [id number] EXAMS: CPT CODE: [id number] FLUORO GUID CLRT ACC DEV [id number] Procedure: Right IJ tunneled, cuffed hemodialysis catheter [...] was accessed with a 21-gauge needle and 5-[place] micropuncture set. An image was stored for [...] Successful placement of a right IJ tunneled, cuffedhemodialysis catheter at 0750 Reported and signed by: Ja Cruz M.D. CC: Manny Tucker MD Technologist: Ivanna Wheat, RT(R) Fluoro Time: DAP (Gy m2): Air Kerma (mGy): Trnscrpt: 07/29/2019 (0750) [email or web address] [facility] NAME: CITLALY DAVIS [id number] PHYS: Gerry DELGADO Do, [place] [address] : 1960 AGE: 59 SEX: F LOC: Z.343 A PHONE #: [phone] EXAM DATE: 07/28/2019 STATUS: ADM IN FAX #: [phone] RAD #: D/C DT PAGE 1 Signed ReportUR CREATININE CLEARANCE [id number] 07:24:00 Test Item Value Reference Range Interpretation Comments CREATININE CLEARANCE RESULT (test 9.2 ML/MIN 85-125 L code = CREATCLR) CREATININE (test code = CREAT) 5.30 MG/DL 0.52-1.04 H UR CREATININE RANDOM (test code = 78.8 CREATU) UR CREATININE 24HR (test code = 0.66 GM/DAY 0.60-1.80 N PEYS91F) UR VOLUME (test code = VOL) 850 ML 800-1800 N SURFACE AREA (test code = SURFAR) 1.64 UR PROTEIN [id number] 07:24:00 Test Item Value Reference Range Interpretation Comments UR TOTAL PROTEIN 428 mg/dL Not Estab. Results con firmed (test code = PROTEU) ondilut ion. UR ALBUMIN % (test 54.2 % () code = ALBEU%) UR YTWHL-6-XVKNJJTK % 2.9 % () (test code = A1GU%) UR LJJSJ-0-EUDRCGCH % 10.7 % () (test code = A2GU%) UR BETA GLOBULIN % 14.3 % () (test code = BGU%) UR GAMMA GLOBULIN % 17.9 % () (test code = GGU%) UR PROT Protein ELECTROPHORESIS electrophore sis scan INTERP (test code = will fol low via ELEUINT) computer,mail, or metal patternmaker delivery.Perfor med At: [facility] [address] [place], [place] [id number] Kyle L MD Ph:[phone] rform ed At: [facility] [address] [place], [place] [id number] h CN MD Ph:[phone] angella hernandez reported re alejandra: Edited by: LINDA Browning on 07/28/19:383570 9 1708: UR PROT KUSUM INT previously reported as: M SPIKE % (test code Not Observed % Not Observed = MSPIKE%) PROTEIN ELECTROPHORESIS [id number] 07:24:00 Test Item Value Reference Range Interpretation Comments TOTAL PROTEIN 6.2 g/dL 6.0-8.5 (test code = PROTE) ALBUMIN (test 2.80 g/dL 2.9-4.4 L code = ALBE) [id number]-4-ZHQVMEDL 0.20 g/dL 0.0-0.4 (test code = A1G) [id number]-7-[id number] 0.80 g/dL 0.4-1.0 (test code = A2G) [...] = will follow via ELEINT) computer,mail, or metal patternmaker delivery.Perfor med At: [facility] [id number] [place], [place] [id number] paige Leach MD Ph:[phone] rformed At: DA [facility] [address] [facility] [address] SAMI Mont[place] [id number] h FRANSICO TRACY Ph:[phone] [id number] 07:24:00 Test Item Value Reference Range Interpretation Comments FERRITIN (test code = [place]) 47.8 NG/ML 11.1-264 N BASIC METABOLIC [id number] 05:39:00 Test Item Value Reference Range Interpretation [...] 9.2 MG/DL 8.4-10.2 N CA) CBC W/AUTO [id number] 05:07:00 Test Item Value Reference Range Interpretation [...] 0.00 K/mm3 0.0-0.1 N NRBC#) GLUCOSE BEDSIDE [id number] 21:56:00 Test Item Value Reference Range Interpretation Comments GLUCOSE BEDSIDE TESTING (test code 245 MG/DL 60-99 H = GLUBED) AB HEPATITIS B [id number] 14:17:00 Test Item Value Reference Range Interpretation Comments AB HEPATITIS B POSITIVE SURFACE (test code = HBSAB) CLIN ICAL INTERPRETATION OF IMMUNE STATUS *NEGATIVE: Inconsistent wi th immunity to HBV infection, less than 5.0 mIU/mL POSITIVE : Consistent with immunity to HBV infectio n, greater than 10.0 mIU/mL UNABLE TO DRAW BLOOD, REASON: CBNNOTIFIED PATIENT CARE STAFF: WAI IGNACIO 07/28/19 AT [facility] BY Tomeka Mcdaniels HEPATITIS B [id number] 14:17:00 Test Item Value Reference Range Interpretation Comments AG HEPATITIS B SURFACE (test code = NEGATIVE NONREACTIVE HBSAG) UNABLE TO DRAW BLOOD, REASON: CBNNOTIFIED PATIENT CARE STAFF: WAI IGNACIO 07/28/19 AT [facility] BY Tomeka Mcdaniels HEPATITIS B [id number] 14:17:00 Test Item Value Reference Range Interpretation Comments AB HEPATITIS B CORE (test code = POSITIVE NONREACTIVE HBCAB) UNABLE TO DRAW BLOOD, REASON: CBNNOTIFIED PATIENT CARE STAFF: WAI IGNACIO 07/28/19 AT [facility] BY Tomeka Mcdaniels HEPATITIS C [id number] 14:17:00 Test Item Value Reference Range Interpretation Comments AB HEPATITIS C (test code = HCVAB) NEGATIVE NONREACTIVE UNABLE TO DRAW BLOOD, REASON: CBNNOTIFIED PATIENT CARE STAFF: WAI IGNACIO 07/28/19 AT [facility] BY Tomeka Mcdaniels HEPATITIS B [id number] 13:58:00 Test Item Value Reference Range Interpretation Comments AB HEPATITIS B SURFACE (test code = HBSAB) UNABLE TO DRAW BLOOD, REASON: CBNNOTIFIED PATIENT CARE STAFF: WAI IGNACIO 07/28/19 AT [facility] BY Tomeka Mcdaniels HEPATITIS B [id number] 13:58:00 Test Item Value Reference Range Interpretation Comments AG HEPATITIS B SURFACE (test code = NEGATIVE NONREACTIVE HBSAG) UNABLE TO DRAW BLOOD, REASON: CBNNOTIFIED PATIENT CARE STAFF: WAI IGNACIO 07/28/19 AT 1233 BY Tomeka Mcdaniels HEPATITIS B [id number] 13:58:00 Test Item Value Reference Range Interpretation Comments AB HEPATITIS B CORE (test code = HBCAB) NONREACTIVE UNABLE TO DRAW BLOOD, REASON: CBNNOTIFIED PATIENT CARE STAFF: WAI IGNACIO 07/28/19 AT 1233 BY Tomeka Mcdaniels HEPATITIS C [id number] 13:58:00 Test Item Value Reference Range Interpretation Comments AB HEPATITIS C (test code = HCVAB) NONREACTIVE UNABLE TO DRAW BLOOD, REASON: CBNNOTIFIED PATIENT CARE STAFF: WAI IGNACIO 07/28/19 AT 1233 BY Tomeka McdanielsnPROTHROMBIN [id number] 13:00:00 Test Item Value Reference Range Interpretation Comments PROTHROMBIN TIME 10.0 SECONDS 9.6-11.6 N PATIENT (test code = PTP) INTERNATIONAL NORMAL 0.9 0.8-1.1 N The INR is to be RATIO (test code = used only for INR) monitoring oral anticoagulantth erap y. INDICATION INR VALUE ---- ---- ---- -------1. Prophylaxis, de ep venous thrombos is, including high risk surgery. 2.0 - 3.0 2. Prophylaxis, deep venous thrombosis, hip surgery, treatm ent for deep venous thrombosis or pulmonary prevention of systemic emboli sm in patients wit h valvular heart disease, atrial fibrillation, tissue heart va lve, or acute myocar dial infarction. 2.0 - 3.0 3. Legal Services Manager al prosthesis hear t valves, recurre nt systemic emboli sm. 3.0 - 4.5 Comments to Hog Worker: NONEUNABLE TO DRAW BLOOD, REASON: CBNNOTIFIED PATIENT CARE STAFF: WAI IGNACIO 07/28/19 AT 1234 BY Tomeka McdanielsnGLUCOSE BEDSIDE [id number] 11:57:00 Test Item Value Reference Range Interpretation Comments GLUCOSE BEDSIDE TESTING (test code 203 MG/DL 60-99 H = GLUBED) GLUCOSE BEDSIDE [id number] 10:09:00 Test Item Value Reference Range Interpretation Comments GLUCOSE BEDSIDE TESTING (test code 182 MG/DL 60-99 H = GLUBED) BASIC METABOLIC [id number] 04:51:00 Test Item Value Reference Range Interpretation [...] 8.9 MG/DL 8.4-10.2 N CA) CBC W/AUTO [id number] 04:30:00 Test Item Value Reference Range Interpretation [...] 0.00 K/mm3 0.0-0.1 N NRBC#) GLUCOSE BEDSIDE [id number] 01:07:00 Test Item Value Reference Range Interpretation Comments GLUCOSE BEDSIDE TESTING (test code 251 MG/DL 60-99 H = GLUBED) GLUCOSE BEDSIDE [id number] 21:56:00 Test Item Value Reference Range Interpretation Comments GLUCOSE BEDSIDE TESTING (test code 192 MG/DL 60-99 H = GLUBED) HEPATITIS B SURF AB, [id number] 18:50:00 Test Item Value Reference Range Interpretation [...] ~~~~~~~~~~~~~~~ ~~~~~~~ ~~~~~~~~~~~~~~~ ~~~~~~~ ~~~~ GLUCOSE BEDSIDE [id number] 16:17:00 Test Item Value Reference Range Interpretation Comments GLUCOSE BEDSIDE TESTING (test code 205 MG/DL 60-99 H = GLUBED) GLUCOSE BEDSIDE [id number] 12:44:00 Test Item Value Reference Range Interpretation Comments GLUCOSE BEDSIDE TESTING (test code 274 MG/DL 60-99 H = GLUBED) ALLIE [id number] 11:08:00 Test Item Value Reference Range Interpretation Comments ALLIE DIRECT (test code = ANADIR) NEGATIVE AB HEPATITIS B [id number] 11:08:00 Test Item Value Reference Range Interpretation Comments AB HEPATITIS B POSITIVE SURFACE (test code = HBSAB) CLIN ICAL INTERPRETATION OF IMMUNE STATUS *NEGATIVE: Inconsistent wi th immunity to HBV infection, less than 5.0 mIU/mL POSITIVE : Consistent with immunity to HBV infectio n, greater than 10.0 mIU/mL AB HEPATITIS B [id number] 11:08:00 Test Item Value Reference Range Interpretation Comments AB HEPATITIS B CORE (test code = POSITIVE NONREACTIVE HBCAB) AB HEPATITIS C [id number] 11:08:00 Test Item Value Reference Range Interpretation Comments AB HEPATITIS C (test code = HCVAB) NEGATIVE NONREACTIVE AB DNA DOUBLE [id number] 11:08:00 Test Item Value Reference Range Interpretation Comments AB DNA DOUBLE STRAND (test code = IU/ml 0-9 DNADSAB) COMPLEMENT [id number] 11:08:00 Test Item Value Reference Range Interpretation Comments COMPLEMENT C3 (test 131 mg/dL 82-167 Performe d At: HD code = COMC3) [facility] [address] [place], [place] [id number] Vinicio Leach MD Ph:[phone] COMPLEMENT [id number] 11:08:00 Test Item Value Reference Range Interpretation Comments COMPLEMENT C4 (test code = COMC4) 35 mg/dL 14-44 GLUCOSE BEDSIDE [id number] 08:24:00 Test Item Value Reference Range Interpretation Comments GLUCOSE BEDSIDE TESTING (test code 198 MG/DL 60-99 H = GLUBED) GLUCOSE BEDSIDE [id number] 20:14:00 Test Item Value Reference Range Interpretation Comments GLUCOSE BEDSIDE TESTING (test code 246 MG/DL 60-99 H = GLUBED) UR PROTEIN [id number] 14:32:00 Test Item Value Reference Range Interpretation Comments UR PROTEIN RANDOM (test code 629 MG/DL 0-11.9 H = PROTU) UR PROTEIN 24HR (test code = 5346.50 MG/24HRS 0.0-200.0 H [id number]) UR VOLUME (test code = VOL) 850 ML 800-1800 N GLUCOSE BEDSIDE [id number] 14:28:00 Test Item Value Reference Range Interpretation Comments GLUCOSE BEDSIDE TESTING (test code 230 MG/DL 60-99 H = GLUBED) GLUCOSE BEDSIDE [id number] 14:28:00 Test Item Value Reference Range Interpretation Comments GLUCOSE BEDSIDE TESTING (test code 240 MG/DL 60-99 H = GLUBED) UR CREATININE CLEARANCE [id number] 14:02:00 Test Item Value Reference Range Interpretation Comments CREATININE CLEARANCE RESULT (test 9.2 ML/MIN 85-125 L code = CREATCLR) CREATININE (test code = CREAT) 5.30 MG/DL 0.52-1.04 H UR CREATININE RANDOM (test code = 78.8 CREATU) UR CREATININE 24HR (test code = 0.66 GM/DAY 0.60-1.80 N [id number]) UR VOLUME (test code = VOL) 850 ML 800-1800 N SURFACE AREA (test code = SURFAR) 1.64 UR PROTEIN [id number] 14:02:00 Test Item Value Reference Range Interpretation Comments UR TOTAL PROTEIN (test code = PROTEU) MG/DL 0-149 UR ALBUMIN % (test code = ALBEU%) % UR DTQPO-4-TJDHCGGI % (test code = % A1GU%) UR HIXQK-3-OMFIYRQL % (test code = % A2GU%) UR BETA GLOBULIN % (test code = BGU%) % UR GAMMA GLOBULIN % (test code = GGU%) % M SPIKE % (test code = MSPIKE%) % UR PROTEIN [id number] 14:01:00 Test Item Value Reference Range Interpretation Comments UR PROTEIN RANDOM (test code = MG/DL 0-11.9 PROTU) UR PROTEIN 24HR (test code = MG/24HRS 0.0-200.0 [id number]) UR VOLUME (test code = VOL) 850 ML 800-1800 N UR CREATININE CLEARANCE [id number] 13:57:00 Test Item Value Reference Range Interpretation Comments CREATININE CLEARANCE RESULT (test ML/MIN 85-125 code = CREATCLR) CREATININE (test code = CREAT) 5.30 MG/DL 0.52-1.04 H UR CREATININE RANDOM (test code = CREATU) UR CREATININE 24HR (test code = GM/DAY 0.60-1.80 [id number]) UR VOLUME (test code = VOL) 850 ML 800-1800 N SURFACE AREA (test code = SURFAR) 1.64 UR PROTEIN [id number] 13:57:00 Test Item Value Reference Range Interpretation Comments UR TOTAL PROTEIN (test code = PROTEU) MG/DL 0-149 UR ALBUMIN % (test code = ALBEU%) % UR QNKVD-5-NBXUONGA % (test code = % A1GU%) UR ZPDDA-3-HVSKIECX % (test code = % A2GU%) UR BETA GLOBULIN % (test code = BGU%) % UR GAMMA GLOBULIN % (test code = GGU%) % M SPIKE % (test code = MSPIKE%) % UR CREATININE CLEARANCE [id number] 13:56:00 Test Item Value Reference Range Interpretation Comments CREATININE CLEARANCE RESULT (test ML/MIN 85-125 code = CREATCLR) CREATININE (test code = CREAT) MG/DL 0.52-1.04 UR CREATININE RANDOM (test code = CREATU) UR CREATININE 24HR (test code = GM/DAY 0.60-1.80 QTOT72P) UR VOLUME (test code = VOL) ML 800-1800 SURFACE AREA (test code = SURFAR) 1.64 UR PROTEIN [id number] 13:56:00 Test Item Value Reference Range Interpretation Comments UR TOTAL PROTEIN (test code = PROTEU) MG/DL 0-149 UR ALBUMIN % (test code = ALBEU%) % UR TOOEV-0-LCKEULAE % (test code = % A1GU%) UR HBLBO-3-PLVNCVDY % (test code = % A2GU%) UR BETA GLOBULIN % (test code = BGU%) % UR GAMMA GLOBULIN % (test code = GGU%) % M SPIKE % (test code = MSPIKE%) % GLUCOSE BEDSIDE [id number] 08:53:00 Test Item Value Reference Range Interpretation Comments GLUCOSE BEDSIDE TESTING (test code 168 MG/DL 60-99 H = GLUBED) B-TYPE NATRIURETIC [id number] 06:21:00 Test Item Value Reference Range Interpretation Comments B-TYPE NATRIURETIC PEPTIDE (test 843.0 PG/ML 0-100 H code = BNP) COMPREHENSIVE METABOLIC [id number] 06:08:00 Test Item Value Reference Range Interpretation [...] UNITS/L 38-126 H (test code = ALKP) [id number] 06:08:00 Test Item Value Reference Range Interpretation Comments PHOSPHOROUS (test code = PHOS) 5.7 MG/DL 2.5-4.5 H [id number] 06:08:00 Test Item Value Reference Range Interpretation Comments MAGNESIUM (test code = MAG) 2.1 MG/DL 1.6-2.3 N CBC W/AUTO [id number] 05:42:00 Test Item Value Reference Range Interpretation [...] 0.00 K/mm3 0.0-0.1 N NRBC#) GLUCOSE BEDSIDE [id number] 20:08:00 Test Item Value Reference Range Interpretation Comments GLUCOSE BEDSIDE TESTING (test code 132 MG/DL 60-99 H = GLUBED) - [facility]2019-08-31 16:54:00 Patient Name: CITLALY DAVIS Unit No: [id number] EXAMS: CPT CODE: [id number] US RETROPERITONEAL COM 44455 W1 EXAM: Retroperitoneal ultrasound HISTORY: CKD TECHNIQUE: [...] Technologist: Chelsea Garcia RDMS(OB)(AB) Transcrpt Date/Tm/Trnsp: 07/25/2019 (106) Marcell.VB7 Orig Print D/T: S: 07/25/2019 (1012) [facility] NAME: CITLALY DAVIS [id number] PHYS: [place] [address] : 1960 AGE: 59 SEX: F LOC: Z.343 A PHONE #: [phone] EXAM DATE: 07/25/2019 STATUS: ADM IN FAX #: [phone] RADIOLOGY NO: PAGE 1 Signed ReportURINALYSIS [id number] 16:13:00 Test Item Value Reference Range Interpretation [...] = UACULT) SOURCE OF URINE: CLEAN CATCHUA [id number] 16:13:00 Test Item Value Reference Range Interpretation Comments UA RBC (test code = RBCU) 5-10 RBC/HPF 0-3 A UA WBC (test code = XWBCU) 5-9 WBC/HPF 0-5 A UA EPITHELIAL CELLS (test code = FEW EPI/HPF FEW EPIU) UA BACTERIA (test code = XBACU) FEW NONE UA MUCUS (test code = MUCU) SLIGHT #/LPF NONE SOURCE OF URINE: CLEAN CATCHGLUCOSE BEDSIDE [id number] 15:53:00 Test Item Value Reference Range Interpretation Comments GLUCOSE BEDSIDE TESTING (test code 141 MG/DL 60-99 H = GLUBED) ALLIE [id number] 15:48:00 Test Item Value Reference Range Interpretation Comments ALLIE DIRECT (test code = ANADIR) NEGATIVE AB HEPATITIS B [id number] 15:48:00 Test Item Value Reference Range Interpretation Comments AB HEPATITIS B POSITIVE SURFACE (test code = HBSAB) CLI NICAL INTERPRETATION OF IMMUNE STATUS *NEGATIVE: Inconsistent wi th immunity to HBV infection, less than 5.0 mIU/mL POSITIVE : Consistent with immunity to HBV infectio n, greater than 10.0 mIU/mL AB HEPATITIS B [id number] 15:48:00 Test Item Value Reference Range Interpretation Comments AB HEPATITIS B CORE (test code = POSITIVE NONREACTIVE HBCAB) AB HEPATITIS C [id number] 15:48:00 Test Item Value Reference Range Interpretation Comments AB HEPATITIS C (test code = HCVAB) NEGATIVE NONREACTIVE AB DNA DOUBLE [id number] 15:48:00 Test Item Value Reference Range Interpretation Comments AB DNA DOUBLE STRAND (test code = IU/ml 0-9 DNADSAB) COMPLEMENT [id number] 15:48:00 Test Item Value Reference Range Interpretation Comments COMPLEMENT C3 (test code = COMC3) mg/dl 82-167 COMPLEMENT [id number] 15:48:00 Test Item Value Reference Range Interpretation Comments COMPLEMENT C4 (test code = COMC4) mg/dl 14-44 URINALYSIS [id number] 15:43:00 Test Item Value Reference Range Interpretation [...] = UACULT) SOURCE OF URINE: CLEAN CATCHUA [id number] 15:43:00 Test Item Value Reference Range Interpretation Comments UA RBC (test code = RBCU) RBC/HPF 0-3 UA WBC (test code = XWBCU) WBC/HPF 0-5 UA EPITHELIAL CELLS (test code = EPI/HPF FEW EPIU) UA BACTERIA (test code = XBACU) NONE SOURCE OF URINE: CLEAN CATCHURINALYSIS [id number] 15:43:00 Test Item Value Reference Range Interpretation [...] = UACULT) SOURCE OF URINE: CLEAN CATCHUA [id number] 15:43:00 Test Item Value Reference Range Interpretation Comments UA RBC (test code = RBCU) RBC/HPF 0-3 UA WBC (test code = XWBCU) WBC/HPF 0-5 UA EPITHELIAL CELLS (test code = EPI/HPF FEW EPIU) UA BACTERIA (test code = XBACU) NONE SOURCE OF URINE: CLEAN CATCHPROTEIN ELECTROPHORESIS [id number] 15:07:00 Test Item Value Reference Range Interpretation Comments TOTAL PROTEIN (test code = PROTE) G/DL 6.0-8.5 ALBUMIN (test code = ALBE) G/DL 3.5-5.5 WGXDR-2-NFTBKKFH (test code = A1G) G/DL 0.2-0.5 TXMDT-8-AULNGBYM (test code = A2G) G/DL 0.2-1.1 BETA GLOBULIN (test code = BG) G/DL 0.5-1.2 GAMMA GLOBULIN (test code = GG) G/DL 0.5-1.5 M-SPIKE,SERUM (test code = MSPIKES) NOT OBSERVE GLOBULIN ELECT (test code = GLOBE) ALBUMIN/GLOBULIN RATIO (test code = AGE) PROT.ELECTROPH.INTERPRETATION (test code = ELEINT) [id number] 15:07:00 Test Item Value Reference Range Interpretation [...] 23 % 12-57 N FESAT) PARATHYROID HORMONE [id number] 14:43:00 Test Item Value Reference Range Interpretation [...] 23 % 12-57 N FESAT) PARATHYROID HORMONE [id number] 14:40:00 Test Item Value Reference Range Interpretation Comments PARATHYROID HORMONE INTACT (test code pg/mL 7.5-53.5 = PARAI) FE W/TOTAL IRON BINDING [id number] 14:30:00 Test Item Value Reference Range Interpretation Comments SERUM IRON (test code = IRON) 60 MCG/DL 37-170 N TOTAL IRON BINDING CAPACITY (test MCG/DL 265-497 code = TIBC) IRON SATURATION (test code = FESAT) % 12-57 PARATHYROID HORMONE [id number] 14:30:00 Test Item Value Reference Range Interpretation Comments PARATHYROID HORMONE INTACT (test code pg/mL 7.5-53.5 = PARAI) GLUCOSE BEDSIDE [id number] 11:26:00 Test Item Value Reference Range Interpretation Comments GLUCOSE BEDSIDE TESTING (test code 171 MG/DL 60-99 H = GLUBED) GLUCOSE BEDSIDE [id number] 08:01:00 Test Item Value Reference Range Interpretation Comments GLUCOSE BEDSIDE TESTING (test code 142 MG/DL 60-99 H = GLUBED) BASIC METABOLIC [id number] 07:01:00 Test Item Value Reference Range Interpretation [...] code = 8.8 MG/DL 8.4-10.2 N CA) [id number] 07:01:00 Test Item Value Reference Range Interpretation Comments TROPONIN-I (test code = TROPI) 0.034 NG/ML 0.012-0.033 H BASIC METABOLIC [id number] 06:57:00 Test Item Value Reference Range Interpretation [...] code = 8.8 MG/DL 8.4-10.2 N CA) [id number] 06:57:00 Test Item Value Reference Range Interpretation Comments TROPONIN-I (test code = TROPI) NG/ML 0.0-0.045 CBC W/AUTO [id number] 06:38:00 Test Item Value Reference Range Interpretation [...] code = 0.00 K/mm3 0.0-0.1 N NRBC#) [id number] 22:53:00 Test Item Value Reference Range Interpretation Comments TROPONIN-I (test code = TROPI) 0.017 NG/ML 0.012-0.033 B-TYPE NATRIURETIC [id number] 16:01:00 Test Item Value Reference Range Interpretation Comments B-TYPE NATRIURETIC PEPTIDE (test 482.0 PG/ML 0-100 H code = BNP) COMPREHENSIVE METABOLIC [id number] 15:53:00 Test Item Value Reference Range Interpretation [...] UNITS/L 38-126 H (test code = ALKP) [id number] 15:53:00 Test Item Value Reference Range Interpretation Comments TROPONIN-I (test code = TROPI) 0.016 NG/ML 0.012-0.033 N COMPREHENSIVE METABOLIC [id number] 15:49:00 Test Item Value Reference Range Interpretation Comments SODIUM (test code = 137 MMOL/L 137-145 N NA) POTASSIUM (test code = 6.1 MMOL/L 3.5-5.1 HH RAJESH D TO OMARS & Shawn) READBACK ON AT 1547 BY [...] UNITS/L 38-126 H (test code = ALKP) [id number] 15:49:00 Test Item Value Reference Range Interpretation Comments TROPONIN-I (test code = TROPI) NG/ML 0.0-0.045 - XR CHEST [id number] 15:35:00 Patient Name: CITLALY DAVIS Unit No: [id number] EXAMS: CPT CODE: [id number] XR CHEST 1V [id number] EXAM: XR Chest 1 View INDICATION: Chest pain LOCATION CODE: B2 COMPARISON: None available TECHNIQUE: Frontal view of the chest was obtained. FINDINGS: The lungs are clear. There is no pleural effusion or pneumothorax. The cardiomediastinal silhouette is mildly enlarged, possibly due to cardiomegaly versus pericardial effusion. No acute osseous abnormality is identified. Degenerative changes are seen at thebilateral shoulder joints. IMPRESSION: Mild enlargement of the cardiomediastinal silhouette, possibly due to cardiomegaly versus pericardial effusion. at 1534 Reported and signed by: Ines Solares MD CC: Manny Tucker MD; Maribell Vences MD Technologist: [facility] STUDENT ; Maribell Daniel, RT(R) Transcrpt Date/Tm/Trnsp: 07/24/2019 (8191) t.SDR.EB14 Orig Print D/T: S: 07/24/2019 (4561) [facility] NAME: CITLALY DAVIS [address] PHYS: [email or web address] - [place] [address] : 1960 AGE: 59 SEX: F LOC: REAL PHONE #: [phone] EXAM DATE: 07/24/2019 STATUS: REG ER FAX #: [phone] RADIOLOGY NO: PAGE 1 Signed ReportCBC W/AUTO [id number] 15:25:00 Test Item Value Reference Range Interpretation [...] 0.00 K/mm3 0.0-0.1 N NRBC#) BASIC METABOLIC [id number] 01:55:00 Test Item Value Reference Range Interpretation [...] 9.0 MG/DL 8.4-10.2 N CA) CBC W/O [id number] 01:42:00 Test Item Value Reference Range Interpretation [...]
[2023-10-04 21:16] LABS: Absolute Lymphocytes (CBC) 1.2 K/uL (0.7-4.9); Lymphocytes % 7.5 % (15.3-44.8); MCV 85.1 fL (80-100); MPV 8.1 fL (7.6-11.3); Platelets 375 thou/uL (152-406); RBC Red Blood Cell Count 3.29 M/uL (3.86-4.86)
[2023-10-04 21:20] LABS: Protime INR 1.09
--- NOTE | 2023-10-04 21:30 | RAD REPORT ---
EXAM DESCRIPTION: CT - Head Brain Wo Cont - 10/04/2023 9:00 pm CLINICAL HISTORY: MENTAL STATUS CHANGE COMPARISON: Head Brain Wo Cont dated 04/08/2022 TECHNIQUE: Noncontrast head CT images ad were obtained without IV contrast. Multiplanar reformats we re generated and reviewed. All CT scans are performed using dose optimization technique as appropriate and may include automated exposure control or mA/KV adjustment according to patient size. FINDINGS: No intracranial hemorrhage, mass, or edema. Midline structures are unremarkable. Central predominant volume loss with stable ventricular caliber. Sulci near the vertex again appear e ffaced. Pandey-white matter differentiation is preserved, without evidence of acute infarct. No abnormal extra- axial fluid collections. Stable extensive confluent deep white matter hypodensities, nonspecific, but suggestive of advanced c hronic small vessel ischemic changes. Mastoid air cells are well aerated. Air-fluid levels in the nasopharynx and paranasal sinuses. No acute bony findings. IMPRESSION: No evidence of an acute intracranial process. Chronic findings as above, suggestive of normal pressure hydrocephalus in the appropriate clinical se tting, and sequelae of chronic small vessel ischemic changes.
[2023-10-04 21:37] LABS: Albumin 2.4 g/dL (3.4-5.0); Bilirubin Total 0.5 mg/dL (0.2-1.0); Protein, Total 7.7 g/dL (6.4-8.2)
--- NOTE | 2023-10-04 21:38 | RAD REPORT ---
EXAM DESCRIPTION: RADChest Single View10/04/2023 9:19 pm CLINICAL HISTORY: AMS COMPARISON: Chest Single View dated 09/11/2023; Chest Single View dated 04/08/2022 TECHNIQUE: Portable AP view of the chest. FINDINGS: Partially improved central hazy opacities. Persistent central interstitial prominence. No new focal consolidation No pneumothorax or effusion. Stable cardiomegaly. Mediastinal contours are un remarkable. IMPRESSION: Partially improved changes of edema, with underlying stable central venous congestion.
[2023-10-04 21:39] LABS: Potassium 4.9 mEq/L (3.5-5.1)
[2023-10-04] MEDS ORDERED: D10W 250 ML IV ONE (22:01)
[2023-10-04] MEDS ORDERED: HYDRALAZINE HCL 20 MG/ML VIAL ONE (22:28)
[2023-10-04 23:46] LABS: Arterial Blood Carboxyhemoglob 1.6 % (0-1.5); Blood O2 Saturation 93.2 % (92-98.5)
--- NOTE | 2023-10-05 00:01 | ER ---
Nurse's Notes [facility] Name: Lita Ernst Age: 63 yrs Sex: Female : 1960 Arrival Date: 10/04/2023 Time: 20:24 Bed 8 Private MD: Diagnosis: Hypoglycemia, unspecified;Dependence on renal dialysis;Encephalopathy, unspecified Presentation: 10/04 20:41 Chief complaint: EMS states: PT IS ALTERED TODAY, WITH HYPERTENSION AND HYPOGLYCEMIA rv WITH BGL OF 47, UNABLE TO DO DIALYSIS TODAY, FEBRILE PER NURSE IN THE FACILITY. Coronavirus screen: At this time, the client does not indicate any symptoms associated with coronavirus-19. Ebola Screen: No symptoms or risks identified at this time. Initial Sepsis Screen: Does the patient meet any 2 criteria? No. Patient's initial sepsis screen is negative. Does the patient have a suspected source of infection? No. Patient's initial sepsis screen is negative. Risk Assessment: Do you want to hurt yourself or someone else? Patient reports no desire to harm self or others. Onset of symptoms was October 04, 2023. 20:41 Method Of Arrival: EMS: [facility] rv 20:41 Acuity: JERAMY 2 rv Triage Assessment: 20:44 General: Appears ill, Behavior is restless. Pain: Denies pain. Neuro: Level of rv Consciousness is awake, alert, obeys commands, Oriented to person, place, time, situation. Cardiovascular: Capillary refill < 3 seconds Patient's skin is warm and dry. Respiratory: Airway is patent Breath sounds are coarse bilaterally. Parent/caregiver reports the patient having cough that is. GI: No signs and/or symptoms were reported involving the gastrointestinal system. : No signs and/or symptoms were reported regarding the genitourinary system. Derm: Skin is intact. Historical: - Allergies: 20:44 unknown med; rv - PMHx: 20:44 Cataracts; Diabetes - NIDDM; DIALYSIS MWF; Hypertension; Seizure; rv - PSHx: 20:44 dialysis on the left arm; rv - Immunization history:: Adult Immunizations up to date. - Social history:: Smoking status: unknown. - Unable to obtain history due to: altered mental status. Screenin:45 [facility] ED Fall Risk Assessment (Adult) History of falling in the last 3 months, rv including since admission Yes- fall prone (multiple falls) (3 pts) Score/Fall Risk Level 3 or more points = High Risk Oriented to surroundings, Maintained a safe environment, Educated pt \T\ family on fall prevention, incl call for assistance when getting out of bed, Assessed \T\ reinforced patient's understanding of fall precautions, Provided non-skid footwear, Hourly rounding (assess needs \T\ fall precautionary measures) done, Used ambulatory aids as needed (educated on \T\ assisted with), Used gait belt as appropriate Implemented a Fall Risk Plan of Care, Apply high fall risk patient identification: yellow non skid footwear/ fall signage, Placed fall mat w/ non beveled edge next to bed, Activated bed/chair alarm, Remained w/in arm's length of patient and in sight while toileting, Offered frequent toileting (1:1 observation), Remained with patient while ambulating, Utilized family, sitter, or virtual premium auditor as indicated. Abuse screen: Denies threats or abuse. Denies injuries from another. Nutritional screening: No deficits noted. Tuberculosis screening: No symptoms or risk factors identified. Assessment: 21:58 Reassessment: No changes from previously documented assessment. Pt sleeping in bed with jb4 eyes closed, respirations are snoring, and equal bilaterally. 23:56 Reassessment: Pt continues to have shallow snoring respirations, and tachypnea. jb4 Vital Signs: 20:41 BP 210 / 107; Pulse 90; Resp 19; Temp 100; Pulse Ox 99% on 2 lpm NC; rv 22:04 BP 221 / 94; Pulse 89; Resp 24; Pulse Ox 99% on 2 lpm NC; jb4 23:44 BP 178 / 84; Pulse 92; vc1 10/05 00:03 Pulse 95; Resp 26; Pulse Ox 100% on 2 lpm NC; jb4 01:00 BP 185 / 79; Pulse 92; Resp 26; Pulse Ox 100% on 2 lpm NC; jb4 ED Course: 10/04 20:30 Inserted saline lock: 20 gauge in right forearm, using aseptic technique. Blood rv collected. 20:41 Patient arrived in ED. rv 20:42 Jesus Redd is Attending Physician. ci 20:44 Triage completed. rv 20:44 Arm band placed on right wrist. rv 20:45 Patient has correct armband on for positive identification. Client placed on continuous rv cardiac and pulse oximetry monitoring. NIBP monitoring applied. desk monitor on. 20:45 No provider procedures requiring assistance completed. rv 20:46 Deni Garcias, SHALINI is Primary Nurse. rv 21:02 CT Head Brain wo Cont In Process Unspecified. EDMS 21:21 Chest Single View XRAY In Process Unspecified. EDMS 10/05 02:15 Janey Alan FNP-C is PHCP. snw 03:54 Flavio Sol MD is Hospitalizing Provider. cg 06:01 Inserted midline right upper arm, [id number]. rv 06:03 Patient admitted, IV remains in place. rv 06:54 Primary Nurse role handed off by Deni Garcias RN eb Administered Medications: 10/04 21:51 Not Given (Other Intervention Used): d50w50 ml IVP once; (1 amp) jb4 21:51 Drug: D10 in Water IVP 250 ml IVP bolus Route: IVP; Site: right forearm; jb4 10/05 00:15 Drug: Rocephin IV 1 grams IV at per protocol once; Given slow IV push per pharmacy jb4 instructions Route: IV; Rate: per protocol; Site: right forearm; 02:48 Drug: hydrALAZINE IVP 10 mg IVP every 4 hours Route: IVP; Site: right forearm; jb4 06:19 Drug: hydrALAZINE IVP 10 mg IVP once Route: IVP; Site: right upper arm; rv Outcome: 00:01 Decision to Hospitalize by Provider. ci 06:02 Admitted to ER Hold. Please see [facility] for further documentation. rv 06:02 Condition: good 06:02 Instructed on the need for admit, 18:29 Patient left the ED. Signatures: Dispatcher [employer] EDTX Janey Alan FNP-C FNP-Enedina Crespo RN RN Jojo Brown RN RN Cameron Saleh RN RN jb4 Ines Beltran Deni Garcias RN RN rv Chanda Wesley RN RN vc1 Jesus Redd ci Corrections: (The following items were deleted from the chart) 00:00 10/04 22:04 BP 221 / 94; Pulse 89bpm; Resp 16bpm; Pulse Ox 99% 2 lpm Nasal Cannula; jb4 jb4
--- NOTE | 2023-10-05 00:01 | EDPHYS ---
Physician Documentation [facility] Name: Lita Ernst Age: 63 yrs Sex: Female : 1960 Arrival Date: 10/04/2023 Time: 20:24 Bed 8 Private MD: ED Physician Jesus Redd HPI: 10/05 08:32 Patient is a 63-year-old female with PMH noninsulin-dependent diabetes, ESRD on HD MWF, ci hypertension, seizure disorder who presents from [place] with altered mental status, hypoglycemia and hypotension. Nursing staff at facility able to provide limited information. Blood glucose 47 for EMS, SBP in the 200s. Patient's aunt called and reported that patient has been coughing, has not felt well for the past few days and missed dialysis.. Historical: - Allergies: 10/04 20:44 unknown med; rv - PMHx: 20:44 Cataracts; Diabetes - NIDDM; DIALYSIS MWF; Hypertension; Seizure; rv - PSHx: 20:44 dialysis on the left arm; rv - Immunization history:: Adult Immunizations up to date. - Social history:: Smoking status: unknown. - Unable to obtain history due to: altered mental status. ROS: 10/05 08:34 Unable to obtain ROS due to altered mental status, ci Vital Signs: 10/04 20:41 BP 210 / 107; Pulse 90; Resp 19; Temp 100; Pulse Ox 99% on 2 lpm NC; rv 22:04 BP 221 / 94; Pulse 89; Resp 24; Pulse Ox 99% on 2 lpm NC; jb4 23:44 BP 178 / 84; Pulse 92; vc1 10/05 00:03 Pulse 95; Resp 26; Pulse Ox 100% on 2 lpm NC; jb4 01:00 BP 185 / 79; Pulse 92; Resp 26; Pulse Ox 100% on 2 lpm NC; jb4 MDM: 10/04 20:43 Patient medically screened. ci 10/05 08:34 Differential Diagnosis altered mental status, Hypertensive encephalopathy, hypertensive ci emergency, hypoglycemia, metabolic encephalopathy.. Data reviewed: vital signs, nurses notes, shelter records, old medical records, Paperwork from shelter shows patient was started on Rocephin 1 g today EKG. Management of patient was discussed with the following: Facility Sales And Admin: Management and plan discussed with ICU MOTOR VEHICLE LICENSE CLERK. I considered the following discharge prescriptions or medication management in the emergency department Medications were administered in the Emergency Department. See MAR. Independent interpretation of the following test(s) in the Emergency Department EKG: See my EKG interpretation above auto air conditioning mechanic: KG shows normal sinus rhythm, HR 90, QTc 491, no acute ischemic changes. Historians other than the Patient: EMS: . Family Member: Aunt. Care significantly affected by the following chronic conditions: Diabetes, Hypertension, Chronic Kidney Disease. 10/04 20:45 Order name: Blood Culture Adult (2) ci 10/04 20:45 Order name: CBC with Diff; Complete Time: 21:41 ci 10/04 21:41 Interpretation: Abnormal: WBC 15.70; HGB 9.1. ci 10/04 20:45 Order name: CMP; Complete Time: 22:10 ci 10/04 22:10 Interpretation: Abnormal: CRE 7.33; Hx ESRD on HD. ci 10/04 20:45 Order name: Lactate w/ 2H reflex if indic.; Complete Time: 21:41 ci 10/04 20:45 Order name: Protime (+inr); Complete Time: 21:41 ci 10/04 20:45 Order name: Ptt, Activated; Complete Time: 21:41 ci 10/04 20:45 Order name: Urinalysis w/ reflexes ci 10/04 20:47 Order name: Influenza Screen (a \T\ B); Complete Time: 22:10 10/04 20:47 Order name: COVID-19 SARS RT PCR; Complete Time: 22:10 10/04 22:28 Order name: Glucose, Ancillary Testing; Complete Time: 22:34 EDIA 10/04 23:32 Interpretation: GLUC,ANCIL 148. ci 10/04 23:34 Order name: ABG; Complete Time: 23:55 ci 10/05 03:16 Order name: CBC with Automated Diff; Complete Time: 06:34 EDMS 10/05 03:16 Order name: Comprehensive Metabolic Panel; Complete Time: 06:34 EDMS 10/05 03:16 Order name: Phosphorus; Complete Time: 06:34 EDMS 10/05 03:16 Order name: Protime (+INR); Complete Time: 06:34 EDMS 10/05 03:16 Order name: PTT, Activated Partial Thromb; Complete Time: 06:34 EDMS 10/05 03:16 Order name: Thyroid Stimulating Hormone; Complete Time: 06:34 EDIA 10/05 03:16 Order name: Urinalysis w/ reflexes EDIA 10/05 03:16 Order name: Troponin High Sensitivity EDIA 10/05 03:16 Order name: Troponin High Sensitivity; Complete Time: 06:34 EDIA 10/05 03:16 Order name: Troponin High Sensitivity; Complete Time: 15:07 EDIA 10/05 03:16 Order name: Troponin High Sensitivity [facility] 10/05 04:06 Order name: Glucose, Ancillary Testing; Complete Time: 05:00 EDIA 10/05 05:47 Order name: Glucose, Ancillary Testing; Complete Time: 06:34 EDIA 10/05 12:43 Order name: Glucose, Ancillary Testing; Complete Time: 15:07 EDIA 10/04 20:45 Order name: Chest Single View XRAY; Complete Time: 21:41 ci 10/04 21:43 Interpretation: Per Radiologist's finding(s): IMPRESSION: Partially improved changes ci of edema, with underlying stable central venous congestion. 10/04 20:45 Order name: CT Head Brain wo Cont; Complete Time: 21:41 ci 10/04 21:44 Interpretation: Per Radiologist's finding(s): IMPRESSION: No evidence of an acute ci intracranial process. 10/04 20:45 Order name: EKG; Complete Time: 20:46 ci 10/04 20:53 Interpretation: Within normal limits: Normal sinus rhythm, no acute ischemic changes, ci QTc 491, HR 90. 10/05 03:16 Order name: CONS Physician Consult EDIA 10/04 20:45 Order name: Accucheck; Complete Time: 20:46 ci 10/04 20:45 Order name: Cardiac monitoring; Complete Time: 20:46 ci 10/04 20:45 Order name: EKG - Nurse/Tech; Complete Time: 20:46 ci 10/04 20:45 Order name: IV Saline Lock - Large Bore; Complete Time: 20:46 ci 10/04 20:45 Order name: Labs collected and sent; Complete Time: 20:46 ci 10/04 20:45 Order name: O2 Per Protocol; Complete Time: 20:46 ci 10/04 20:45 Order name: O2 Sat Monitoring; Complete Time: 20:46 ci 10/04 20:45 Order name: VS Recheck; Complete Time: 20:46 ci 10/04 20:45 Order name: Vital Signs; Complete Time: 20:46 ci Administered Medications: 10/04 21:51 Not Given (Other Intervention Used): d50w50 ml IVP once; (1 amp) jb4 21:51 Drug: D10 in Water IVP 250 ml IVP bolus Route: IVP; Site: right forearm; jb4 10/05 00:15 Drug: Rocephin IV 1 grams IV at per protocol once; Given slow IV push per pharmacy jb4 instructions Route: IV; Rate: per protocol; Site: right forearm; 02:48 Drug: hydrALAZINE IVP 10 mg IVP every 4 hours Route: IVP; Site: right forearm; jb4 06:19 Drug: hydrALAZINE IVP 10 mg IVP once Route: IVP; Site: right upper arm; rv Disposition Summary: 10/05/23 00:01 Hospitalization Ordered Notes: Hospitalization Status: Inpatient Admission ci Condition: Stable ci Problem: an acute exacerbation ci Symptoms: have worsened ci Bed/Room Type: Standard ci Provider: Flavio Sol(10/05/23 03:54) cg Location: [facility] ER HOLD(10/05/23 03:54) cg Room Assignment: ERHOLD-(10/05/23 03:54) cg Diagnosis - Hypoglycemia, unspecified ci - Dependence on renal dialysis ci - Encephalopathy, unspecified ci Forms: - Medication Reconciliation Form ci - SBAR form ci - Leadership Thank You Letter ci Signatures: Dispatcher [employer] EDJaney Gutiérrez FNP-C CONCIERGE MANAGER-Csnw Suresh Ward FNP-C FNP-Cla1 Enedina Randle, RN RN cg Cameron Saleh, RN RN jb4 Deni Garcias, SHALINI RN rv Jesus Redd ci Corrections: (The following items were deleted from the chart) 10/04 20:53 20:53 Normal sinus rhythm, no acute ischemic changes, QTc 491, HR 90. ci ci 10/05 03:54 00:01 Flavio Sol ci cg 03:54 00:01 Intensive Care Unit ci cg 03:54 00:01 ci cg 08:34 08:32 Patient is a 63-year-old female with PMH noninsulin-dependent diabetes, ESRD on ci HD MWF, hypertension, seizure disorder who presents [place] with altered mental status, hypoglycemia and hypotension. Nursing staff at facility able to provide limited information. Blood glucose 47 for EMS, received D10 in route. Patient's aunt did state that patient has been coughing, has not felt well for the past few days and missed dialysis.. ci
[2023-10-05] MEDS ORDERED: CEFTRIAXONE 1000 MG/VIAL ONE (00:18)
[2023-10-05] MEDS ORDERED: HYDRALAZINE HCL 20 MG/ML VIAL ONE ×3 (02:53→11:09)
[2023-10-05] MEDS ORDERED: HYDRALAZINE HCL 20 MG/ML VIAL IV PRN ×2 (03:13→08:58)
[2023-10-05 05:21] LABS: RBC Red Blood Cell Count 3.51 M/uL (3.86-4.86)
[2023-10-05 05:22] LABS: Absolute Lymphocytes (CBC) 1.3 K/uL (0.7-4.9); Hematocrit 29.8 % (36.0-45.0); MCV 84.9 fL (80-100); Platelets 405 thou/uL (152-406)
[2023-10-05 05:28] LABS: Protime INR 1.08
[2023-10-05 05:52] LABS: Albumin 2.4 g/dL (3.4-5.0); Bilirubin Total 0.5 mg/dL (0.2-1.0); Phosphorus 5.3 mg/dL (2.5-4.9); Potassium 4.9 mEq/L (3.5-5.1); Protein, Total 7.8 g/dL (6.4-8.2); Thyroid Stimulating Hormone 0.837 uIU/mL (0.358-3.740)
[2023-10-05 05:54] LABS: Troponin High Sensitivity 547.4 pg/mL (<58.9)
[2023-10-05] MEDS ORDERED: DEXTROSE 10%-WATER 500 ML IV ONE (05:59)
[2023-10-05] MEDS ORDERED: LEVETIRACETAM 500 MG/5 ML VIAL IV ONE (05:59)
[2023-10-05 06:16] VITALS: BMI 33.4
--- NOTE | 2023-10-05 08:25 | P.HP ---
Certification for Inpatient With expected LOS: >2 Midnights Patient will require the following post-hospital care: None Practitioner: I am a practitioner with admitting privileges, knowledge of patient current condition, hospital course, and medical plan of care. Services: Services provided to patient in accordance with Admission requirements found in Title 42 Section 412.3 of the Code of Federal Regulations Patient History Date of Service: 10/05/23 Primary Care Provider: Klarissa Reason for admission: AMS, Hypoglycemia, Hemodialysis History of Present Illness: Pt is a 63 year old resident of [facility]. She was sent per EMS for AMS, hypoglycemia, and need for hemodialysis. Unable to obtain much information as pt arrives with AMS, hypoglycemia. [place] states pt missed dialysis Saturday. Upon eval in ED, pt sonorous, resp rate 40, +murmur. Pt to be admitted for dialysis and evaluation for infection. Right upper field of CXR appears more pronounced than previous Allergies No Known Drug Allergies Allergy (Verified 10/05/23 06:29) Unknown Home medications list reviewed: Yes - Past Medical/Surgical History Has patient received pneumonia vaccine in the past: No Diabetic: Yes -: ESRD, DM, CVA, Seizures Past Surgical History: Unable to obtain - Family History Family History: Reviewed- Non-Contributory - Social History Smoking Status: Never smoker Place of Residence: Home Review of Systems is unable to be obtained Physical Examination - Vital Signs Temperature: 100.1 F Blood Pressure: 228/91 Pulse: 91 Respirations: 24 Pulse Ox (%): 95 - Physical Exam General: Moderate distress HEENT: Atraumatic, Normocephalic Neck: JVD distended Respiratory: Crackles/rales Cardiovascular: Edema Capillary refill: <2 Seconds Gastrointestinal: Normal bowel sounds Musculoskeletal: No clubbing Integumentary: No rashes Neurological: Other (lethargic) Lymphatics: No axilla or inguinal lymphadenopathy Urinary: Dialysis catheter Rectal: Deferred - Studies Laboratory Data (last 24 hrs) 10/04/23 10/04/23 10/04/23 20:40 20:40 20:40 WBC 15.70 H Hgb 9.1 L Hct 28.0 L Plt Count 375 PT 12.0 INR 1.09 APTT 30.2 Sodium 137 Potassium 4.9 BUN 49 H Creatinine 7.33 H Glucose 44 L* Total Bilirubin 0.5 AST 23 ALT 14 Alkaline Phosphatase 167 H Microbiology Data (last 24 hrs): 10/04/23 20:40 Nasopharnyx Influenza Type A Antigen Screen - Final 10/04/23 20:40 Nasopharnyx Influenza Type B Antigen Screen - Final Assessment and Plan - Problems (Diagnosis) (1) Pneumonia Current Visit: Yes Status: Acute Plan: pulmonary toilet, O2, rocephin iv. follow labs, trend vs, consult Dr. Mcguire (2) ESRD (end stage renal disease) on dialysis Current Visit: Yes Status: Acute Plan: Dialysis, consult Dr. Cyr or Leonard Discharge Plan: Long-Term Plan to discharge in: 72 Hours - Advance Directives Does patient have a Living Will: No Does patient have a Durable POA for Healthcare: No - Code Status/Comfort Care Code Status Assessed: No (not filled out on [place] paperwork) Critical Care: Yes Time Spent Managing Pts Care (In Minutes): 60
--- NOTE | 2023-10-05 08:56 | P.PN ---
Subjective Date of Service: 10/05/23 Primary Care Provider: Klarissa Chief Complaint: AMS, Hypoglycemia, Hemodialysis Review of Systems 10-point ROS is otherwise unremarkable Physical Examination - Vital Signs Temperature: 100.1 F Blood Pressure: 228/91 Pulse: 91 Respirations: 24 Pulse Ox (%): 95 - Studies Laboratory Data (last 24 hrs) 10/04/23 10/04/23 10/04/23 20:40 20:40 20:40 WBC 15.70 H Hgb 9.1 L Hct 28.0 L Plt Count 375 PT 12.0 INR 1.09 APTT 30.2 Sodium 137 Potassium 4.9 BUN 49 H Creatinine 7.33 H Glucose 44 L* Total Bilirubin 0.5 AST 23 ALT 14 Alkaline Phosphatase 167 H Microbiology Data (last 24 hrs): 10/04/23 20:40 Nasopharnyx Influenza Type A Antigen Screen - Final 10/04/23 20:40 Nasopharnyx Influenza Type B Antigen Screen - Final Assessment And Plan - Plan Assessment plan hypertensive emergency NSTEMI As needed antihypertensives, Sepsis without hypotension likely secondary to pneumonia Acute hypoxic respiratory failure secondary to to pneumonia IV antibiotics, O2 keep sats greater than 92% End-stage renal disease on hemodialysis Renal consult for hemodialysis Diabetes type 2 Accu-Cheks, sliding scale insulin History of CVA History of seizures Full code DVT heparin Diet renal Discharge Plan: Mcfp - Code Status/Comfort Care Code Status: Full Code Physician Review: Patient Assessed, Agree with Above Assessment and Plan Critical Care: No Time Spent Managing PTS Care (In Minutes): 35
[2023-10-05] MEDS ORDERED: GLUCAGON 1 MG/VIAL IM PRN (09:08)
[2023-10-05] MEDS ORDERED: D50W 25 GM/50 ML SYRINGE IV PRN (09:08)
[2023-10-05] MEDS ORDERED: BENZONATATE 100 MG CAP PO ONE (11:10)
[2023-10-05] MEDS: INSULIN REGULAR (HUMAN) 100 UNIT/ML SQ SCH ×3 (11:30→21:38)
--- NOTE | 2023-10-05 14:07 | EKG ---
Test Date: 2023-10-04 Test Time: 20:48:43 Back Hoe Operator: ROBERTO MEASUREMENT RESULTS: Intervals: Rate: 90 UT: 140 QRSD: 84 QT: 402 QTc: 491 [place]: P: 69 UT: 140 QRS: 73 T: 57 INTERPRETIVE STATEMENTS: Normal sinus rhythm Biatrial enlargement Cannot rule out Anterior infarct, age undetermined Abnormal ECG Compared to ECG 09/11/2023 11:47:18 Atrial abnormality now present Atrial premature complex(es) no longer present Right-axis deviation no longer present Prolonged QT interval no longer present Myocardial infarct finding still present Electronically Signed On 10-05-23 14:06:10 AUDIO VISUAL EQUIPMENT RENTAL CLERK by Romero Fleming
--- NOTE | 2023-10-05 14:51 | P.PN ---
Subjective Date of Service: 10/05/23 Primary Care Provider: Klarissa Chief Complaint: AMS, Hypoglycemia, Hemodialysis Physical Examination - Vital Signs Temperature: 97.3 F Blood Pressure: 206/82 Pulse: 97 Respirations: 26 Pulse Ox (%): 98 - Physical Exam General: Alert HEENT: Atraumatic Neck: Supple Respiratory: Normal air movement Cardiovascular: Regular rate/rhythm, Normal S1 S2 Gastrointestinal: Soft and benign Musculoskeletal: No swelling Neurological: Normal speech - Studies Laboratory Data (last 24 hrs) 10/04/23 10/04/23 10/04/23 20:40 20:40 20:40 WBC 15.70 H Hgb 9.1 L Hct 28.0 L Plt Count 375 PT 12.0 INR 1.09 APTT 30.2 Sodium 137 Potassium 4.9 BUN 49 H Creatinine 7.33 H Glucose 44 L* Total Bilirubin 0.5 AST 23 ALT 14 Alkaline Phosphatase 167 H Microbiology Data (last 24 hrs): 10/04/23 20:40 Nasopharnyx Influenza Type A Antigen Screen - Final 10/04/23 20:40 Nasopharnyx Influenza Type B Antigen Screen - Final Assessment And Plan - Plan ESRD: Missed couple of dialysis session and is in need of dialysis. Nephrology consulted for management recommendation. Hypertension: Elevated blood pressure of systolic greater than 200 noted. Hemodialysis with ultrafiltration to assist with management. We will follow vital signs per unit protocol. We will restart home medications Suspected sepsis: Empiric antibiotic started. We will follow closely. Anemia of renal disease: Management as per nephrology. Prophylaxis: Heparin for DVT prophylaxis. CODE STATUS: Full code Disposition: Pending clearance by nephrology. Physician Review: Patient Assessed, Agree with Above Assessment and Plan
--- NOTE | 2023-10-05 15:55 | CON ---
History Of Present Illness: The patient is seen in the emergency room in room 8. She is being held over here, looks alert and comfortable currently, but is somewhat short of breath requiring some oxyg en to keep O2 sats above 90. Does have crackles in her lungs and lower extremity edema, presents wit h high blood pressures as well. Does not recall exactly but thinks she did get dialysis last week, n ot sure if she got it on Saturday. Is having some distress and talking comfortably and regularly but w ith oxygen and while at rest is doing well. Her blood pressure is running in 190-200 systolic range. She does not have any chest pain currently and at rest does seem to be comfortable. Vital signs ar e reviewed. Her blood pressure as stated elevated, is about 200 systolic range right now. Allergies noted as no drug allergies. The patient is unable to provide much history. Given her shortness of breath, she is not able to talk comfortably. History in the past of seizures, CVA. Also, ESRD on di alysis. Primary dog raiser is Dr. Cyr. Laboratory Data: Labs reviewed. Medications: Home medications reviewed. Current medications reviewed. On antibiotics. Assessment And Plan: The patient with end-stage renal disease. A left arm AV fistula with good thri ll and bruit. Plan to dialyze today. The patient is about to go for dialysis. Dialysis nurse Omer is ready for her to be dialyzed and he is available. I just had a discussion with him about the nader ent. We will plan to get 4 L off, we will dialyze about 3-1/2 hours. We will use the left arm AV fi stula, which seems to have a good thrill and bruit currently. Dialysis orders placed. Also discusse d with Dr. Freeman who was called perhaps by mistake as the patient is following with Dr. Cyr, did correct that and orders for dial ysis have been placed. /MARAY Voice ID: [id number] Report ID: [id number]
[2023-10-06 04:57] LABS: Absolute Lymphocytes (CBC) 1.4 K/uL (0.7-4.9); Hematocrit 28.8 % (36.0-45.0); Lymphocytes % 11.7 % (15.3-44.8); MCV 85.6 fL (80-100); MPV 8.3 fL (7.6-11.3); Platelets 419 thou/uL (152-406); RBC Red Blood Cell Count 3.37 M/uL (3.86-4.86)
[2023-10-06 05:19] LABS: Albumin 2.3 g/dL (3.4-5.0); Bilirubin Total 0.4 mg/dL (0.2-1.0); Phosphorus 6.1 mg/dL (2.5-4.9); Protein, Total 7.4 g/dL (6.4-8.2)
[2023-10-06 05:23] LABS: Magnesium 2.2 mg/dL (1.6-2.4); Potassium 4.5 mEq/L (3.5-5.1)
[2023-10-06] MEDS: INSULIN REGULAR (HUMAN) 100 UNIT/ML SQ SCH ×4 (07:02→20:30)
[2023-10-06] MEDS ORDERED: HOME MED 1 EA UNK (Levetiracetam [Keppra Xr] 500 MG Tab.Er.24h) PO SCH (09:00)
[2023-10-06] MEDS: HOME MED 1 EA UNK (Insulin Degludec [Tresiba Flextouch U-100] 100 UNIT/ML Insuln.Pen) SQ SCH (09:00)
[2023-10-06] MEDS ORDERED: SEVELAMER HCL 800 MG PO SCH (09:00)
--- NOTE | 2023-10-06 09:22 | P.PN ---
Subjective Date of Service: 10/06/23 Primary Care Provider: Klarissa Chief Complaint: AMS, Hypoglycemia, Hemodialysis Subjective: No new changes, Improving Physical Examination - Vital Signs Temperature: 97.2 F Blood Pressure: 151/86 Pulse: 84 Respirations: 27 Pulse Ox (%): 100 - Physical Exam General: Alert, Oriented x3 HEENT: Atraumatic Neck: Supple Respiratory: Normal air movement Cardiovascular: No edema, Regular rate/rhythm, Normal S1 S2 Gastrointestinal: Soft and benign Musculoskeletal: No swelling Neurological: Normal speech Assessment And Plan - Plan ESRD: Had dialysis yesterday with 2.5 liter UF. MWF dialysis schedule to be continued. Nephrology following. Hypertension: BP reads are better after dialysis. we will restart home medications. We will follow vital signs per unit protocol. DM 2: We will continue SSI and long acting insulin therapy. carb restricted diet to be continued. NSTEMI: Elevated troponin noted. this is deemed due to ESRD status. cardiology following. Anemia of renal disease: Management as per nephrology. Prophylaxis: Heparin for DVT prophylaxis. CODE STATUS: Full code Disposition: Pending clearance by nephrology. Physician Review: Patient Assessed, Agree with Above Assessment and Plan
[2023-10-06] MEDS: ATORVASTATIN 40 MG TAB PO SCH (09:58)
[2023-10-06] MEDS: carvediloL 12.5 MG TAB PO SCH ×2 (09:59→16:39)
[2023-10-06] MEDS: NIFEDIPINE XL 60 MG TABLET PO SCH (09:59)
[2023-10-06] MEDS: levETIRAcetam 500 MG TAB PO SCH (09:59)
[2023-10-06] MEDS: CALCIUM ACETATE 667 MG TAB PO SCH (10:01)
[2023-10-06] MEDS: DOXAZOSIN 4 MG TAB PO SCH ×2 (10:01→20:24)
[2023-10-07 04:39] LABS: Hepatitis B Surface Ab - Quant > 1000.00 mIU/mL (<8.0); Hepatitis B surface AG Interp. Nonreactive (Nonreactive)
[2023-10-07] MEDS: carvediloL 12.5 MG TAB PO SCH ×2 (05:28→19:24)
--- NOTE | 2023-10-07 06:04 | P.PN ---
Date of Service: 10/07/23 Subjective: Physical Exam: Vitals: reviewed GEN: Alert, oriented, NAD HEENT: Normal conjunctiva, sclera anicteric CV: Regular rate & rhythm, BLE edema Pulm: Nonlabored respiraitons, crackles/rales ABD: Soft, nontender, nondistended MSK: No joint tenderness Integumentary: No rashes Neuro: Normal speech, normal affect Problem List: ESRD on HD [facility] NSTEMI Anemia of renal disease Hypertension IDDM2 Plan: Nephrology consulted [facility] dialysis schedule dialysis per nephrology Continue to monitor renal function Renally dose medications Daily labs confirm home medications, restart as appropriate troponins elevated Cardiology consulted SSI, continue long acting insulin; adjust as needed
[2023-10-07 06:59] LABS: Absolute Lymphocytes (CBC) 1.5 K/uL (0.7-4.9); Hematocrit 26.7 % (36.0-45.0); Lymphocytes % 13.9 % (15.3-44.8); MCV 84.8 fL (80-100); MPV 8.3 fL (7.6-11.3); Platelets 410 thou/uL (152-406); RBC Red Blood Cell Count 3.14 M/uL (3.86-4.86)
[2023-10-07 07:08] LABS: Albumin 2.2 g/dL (3.4-5.0); Phosphorus 5.3 mg/dL (2.5-4.9)
[2023-10-07] MEDS: INSULIN REGULAR (HUMAN) 100 UNIT/ML SQ SCH ×4 (07:30→20:53)
[2023-10-07] MEDS: SEVELAMER CARBONATE 800 MG TABLET PO SCH (08:00)
[2023-10-07] MEDS: CALCIUM ACETATE 667 MG TAB PO SCH (09:00)
[2023-10-07] MEDS: HOME MED 1 EA UNK (Insulin Degludec [Tresiba Flextouch U-100] 100 UNIT/ML Insuln.Pen) SQ SCH (09:00)
[2023-10-07] MEDS ORDERED: ATORVASTATIN 40 MG TAB ONE (09:41)
[2023-10-07] MEDS: DOXAZOSIN 4 MG TAB PO SCH (09:44)
[2023-10-07] MEDS: NIFEDIPINE XL 60 MG TABLET PO SCH (09:48)
[2023-10-07] MEDS: ATORVASTATIN 40 MG TAB PO SCH (09:48)
[2023-10-07] MEDS ORDERED: INSULIN REGULAR (HUMAN) 100 UNIT/ML ONE (12:51)
[2023-10-07] MEDS: DOXAZOSIN 2 MG TAB PO SCH (21:40)
--- NOTE | 2023-10-07 22:03 | P.PN ---
Date of Service: 10/07/23 Vital Signs Temp Pulse Resp BP Pulse Ox 98.7 F 92 H 19 119/92 H 98 10/07/23 13:00 10/07/23 21:40 10/07/23 19:00 10/07/23 21:40 10/07/23 19:00 Medications Atorvastatin Calcium (Atorvastatin 40 Mg Tab) 40 mg PO DAILY [facility] Last Admin: 10/07/23 09:48 Dose: 40 mg Calcium Acetate (Calcium Acetate 667 Mg Tab) 667 mg PO DAILY [facility] Last Admin: 10/07/23 09:00 Dose: 667 mg Carvedilol (Carvedilol 12.5 Mg Tab) 12.5 mg PO BID 6AM 6PM [facility] Last Admin: 10/07/23 19:24 Dose: 12.5 mg Dextrose (D50w 25 Gm/50 Ml Syringe) 12.5 gm IV PRN PRN; Protocol PRN Reason: HYPOGLYCEMIA Doxazosin Mesylate (Doxazosin 2 Mg Tab) 2 mg PO BID [facility] Last Admin: 10/07/23 21:40 Dose: 2 mg Glucagon (Glucagon 1 Mg/Vial) 1 mg IM 1X PRN; Protocol PRN Reason: HYPOGLYCEMIA Heparin Sodium (Porcine) (Heparin 1,000 Unit/Ml Vial) 3,000 unit IV EVERY HD PRN PRN Reason: Prevent HD System Clotting Last Admin: 10/07/23 13:35 Dose: 3,000 unit Home Med (Insulin Degludec [Tresiba Flextouch U-100]) 20 unit SQ DAILY [facility] Last Admin: 10/07/23 09:00 Dose: Not Given Hydralazine HCl (Hydralazine Hcl 20 Mg/Ml Vial) 10 mg IV Q4HP PRN PRN Reason: SBP>160 MMHG OR DBP>100 MMHG Last Admin: 10/05/23 11:00 Dose: 10 mg Hydralazine HCl (Hydralazine Hcl 25 Mg Tablet) 50 mg PO DAILY [facility] Insulin Human Regular (Insulin Regular (Human) 100 Unit/Ml) 0 unit SQ [facility]; Protocol Last Admin: 10/07/23 20:53 Dose: Not Given Levetiracetam (Levetiracetam 500 Mg Tab) 500 mg PO DAILY [facility] Last Admin: 10/06/23 09:59 Dose: 500 mg Nifedipine (Nifedipine Xl 60 Mg Tablet) 60 mg PO DAILY [facility] Last Admin: 10/07/23 09:48 Dose: 60 mg Sevelamer Carbonate (Sevelamer Carbonate 800 Mg Tablet) 800 mg PO BREAKFAST [facility] Last Admin: 10/07/23 08:00 Dose: Not Given Valsartan (Valsartan 80 Mg Tab) 80 mg PO DAILY [facility] Microbiology Results 10/04/23 20:40 Blood - Blood Aerobic Blood Culture - Preliminary No growth in 24 hours. 10/04/23 20:40 Blood - Blood Anaerobic Blood Culture - Preliminary No growth in 24 hours. 10/04/23 20:40 Nasopharnyx Influenza Type A Antigen Screen - Final 10/04/23 20:40 Nasopharnyx Influenza Type B Antigen Screen - Final Assessment/ Plan: Nephrology No dyspnea No chest pain No acute events overnight Vitals, medications, blood work and imaging reviewed in the chart. NAD. NCAT. MMM. Neck supple. Normal respiratory effort. RRR. Abd ND. No C/C. LE Edema none. No rash. AAO. Normal speech. ESRD on HD -HD TIW HTN with CKD/ CHF -Continue Coreg Diastolic CHF, chronic -Continue Coreg -HD with UF -Daily weight DM II with CKD & Polyneuropathy -RISS Anemia in CKD -Retacrit prn CKD MBD -[id number] CLINICAL HISTORY: AMS COMPARISON: Chest Single View dated 09/11/2023; Chest Single View dated 04/08/2022 TECHNIQUE: Portable AP view of the chest. FINDINGS: Partially improved central hazy opacities. Persistent central interstitial prominence. No new focal consolidation No pneumothorax or effusion. Stable cardiomegaly. Mediastinal contours are unremarkable. IMPRESSION: Partially improved changes of edema, with underlying stable central venous congestion.
[2023-10-08] MEDS: carvediloL 12.5 MG TAB PO SCH ×2 (05:34→17:39)
[2023-10-08] MEDS: INSULIN REGULAR (HUMAN) 100 UNIT/ML SQ SCH ×5 (07:30→21:00)
[2023-10-08] MEDS ORDERED: HOME MED 1 EA UNK (Hydralazine Hcl [Hydralazine Hcl] 50 MG Tablet) PO SCH (09:00)
[2023-10-08] MEDS ORDERED: HOME MED 1 EA UNK (Olmesartan Medoxomil [Olmesartan Medoxomil] 40 MG Tablet) PO SCH (09:00)
[2023-10-08] MEDS ORDERED: HOME MED 1 EA UNK (Olmesartan Medoxomil [Olmesartan Medoxomil] 20 MG) PO SCH (09:00)
[2023-10-08] MEDS: HOME MED 1 EA UNK (Insulin Degludec [Tresiba Flextouch U-100] 100 UNIT/ML Insuln.Pen) SQ SCH (09:00)
[2023-10-08] MEDS: ATORVASTATIN 40 MG TAB PO SCH (09:26)
[2023-10-08] MEDS: levETIRAcetam 500 MG TAB PO SCH (09:26)
[2023-10-08] MEDS: DOXAZOSIN 2 MG TAB PO SCH ×2 (09:26→21:55)
[2023-10-08] MEDS: NIFEDIPINE XL 60 MG TABLET PO SCH (09:27)
[2023-10-08] MEDS: HYDRALAZINE HCL 25 MG TABLET PO SCH (09:27)
[2023-10-08] MEDS: VALSARTAN 80 MG TAB PO SCH (09:27)
[2023-10-08] MEDS: CALCIUM ACETATE 667 MG TAB PO SCH (09:28)
[2023-10-08] MEDS: SEVELAMER CARBONATE 800 MG TABLET PO SCH (09:28)
--- NOTE | 2023-10-08 19:48 | P.PN ---
Date of Service: 10/08/23 Vital Signs Temp Pulse Resp BP Pulse Ox 97.5 F 80 16 124/56 L 96 10/08/23 16:00 10/08/23 17:39 10/08/23 16:00 10/08/23 17:39 10/08/23 16:00 Medications Atorvastatin Calcium (Atorvastatin 40 Mg Tab) 40 mg PO DAILY [facility] Last Admin: 10/08/23 09:26 Dose: 40 mg Calcium Acetate (Calcium Acetate 667 Mg Tab) 667 mg PO DAILY [facility] Last Admin: 10/08/23 09:28 Dose: 667 mg Carvedilol (Carvedilol 12.5 Mg Tab) 12.5 mg PO BID 6AM 6PM [facility] Last Admin: 10/08/23 17:39 Dose: 12.5 mg Dextrose (D50w 25 Gm/50 Ml Syringe) 12.5 gm IV PRN PRN; Protocol PRN Reason: HYPOGLYCEMIA Doxazosin Mesylate (Doxazosin 2 Mg Tab) 2 mg PO BID [facility] Last Admin: 10/08/23 09:26 Dose: 2 mg Glucagon (Glucagon 1 Mg/Vial) 1 mg IM 1X PRN; Protocol PRN Reason: HYPOGLYCEMIA Heparin Sodium (Porcine) (Heparin 1,000 Unit/Ml Vial) 3,000 unit IV EVERY HD PRN PRN Reason: Prevent HD System Clotting Last Admin: 10/07/23 13:35 Dose: 3,000 unit Home Med (Insulin Degludec [Tresiba Flextouch U-100]) 20 unit SQ DAILY [facility] Last Admin: 10/08/23 09:00 Dose: Not Given Hydralazine HCl (Hydralazine Hcl 20 Mg/Ml Vial) 10 mg IV Q4HP PRN PRN Reason: SBP>160 MMHG OR DBP>100 MMHG Last Admin: 10/05/23 11:00 Dose: 10 mg Hydralazine HCl (Hydralazine Hcl 25 Mg Tablet) 50 mg PO DAILY [facility] Last Admin: 10/08/23 09:27 Dose: 50 mg Insulin Human Regular (Insulin Regular (Human) 100 Unit/Ml) 0 unit SQ [facility]; Protocol Last Admin: 10/08/23 17:35 Dose: 2 unit Levetiracetam (Levetiracetam 500 Mg Tab) 500 mg PO DAILY [facility] Last Admin: 10/08/23 09:26 Dose: 500 mg Nifedipine (Nifedipine Xl 60 Mg Tablet) 60 mg PO DAILY [facility] Last Admin: 10/08/23 09:27 Dose: 60 mg Sevelamer Carbonate (Sevelamer Carbonate 800 Mg Tablet) 800 mg PO BREAKFAST [facility] Last Admin: 10/08/23 09:28 Dose: 800 mg Valsartan (Valsartan 80 Mg Tab) 80 mg PO DAILY [facility] Last Admin: 10/08/23 09:27 Dose: 80 mg Lab Results (last 24 hrs) 10/04/23 20:22: POC Glucose 50 L* Microbiology Results 10/04/23 20:40 Blood - Blood Aerobic Blood Culture - Preliminary No growth in 24 hours. 10/04/23 20:40 Blood - Blood Anaerobic Blood Culture - Preliminary No growth in 24 hours. 10/04/23 20:40 Nasopharnyx Influenza Type A Antigen Screen - Final 10/04/23 20:40 Nasopharnyx Influenza Type B Antigen Screen - Final Assessment/ Plan: Nephrology No dyspnea No chest pain No acute events overnight Vitals, medications, blood work and imaging reviewed in the chart. NAD. NCAT. MMM. Neck supple. Normal respiratory effort. RRR. Abd ND. No C/C. LE Edema none. No rash. AAO. Normal speech. ESRD on HD -HD TIW HTN with CKD/ CHF -Continue Coreg -Continue Valsartan and Nifedipine Diastolic CHF, chronic -Continue Coreg -HD with UF -Daily weight DM II with CKD & Polyneuropathy -Continue Tresiba -RISS Anemia in CKD -Retacrit prn CKD MBD -Continue Phoslo & Renvela [facility] CLINICAL HISTORY: AMS COMPARISON: Chest Single View dated 09/11/2023; Chest Single View dated 04/08/2022 TECHNIQUE: Portable AP view of the chest. FINDINGS: Partially improved central hazy opacities. Persistent central interstitial prominence. No new focal consolidation No pneumothorax or effusion. Stable cardiomegaly. Mediastinal contours are unremarkable. IMPRESSION: Partially improved changes of edema, with underlying stable central venous congestion.
[2023-10-09] MEDS: carvediloL 12.5 MG TAB PO SCH ×2 (05:59→17:57)
[2023-10-09] MEDS: INSULIN REGULAR (HUMAN) 100 UNIT/ML SQ SCH ×4 (07:30→20:53)
--- NOTE | 2023-10-09 07:37 | P.PN ---
Subjective Date of Service: 10/09/23 Primary Care Provider: Klarissa Chief Complaint: AMS, Hypoglycemia, Hemodialysis Subjective: No new changes, Improving Review of Systems 10-point ROS is otherwise unremarkable Physical Examination - Vital Signs Temperature: 98.3 F Blood Pressure: 130/63 Pulse: 83 Respirations: 16 Pulse Ox (%): 96 - Physical Exam General: Alert, In no apparent distress, Oriented x3 HEENT: Atraumatic, Normocephalic Neck: Supple, 2+ carotid pulse no bruit Respiratory: Normal air movement Cardiovascular: Other (BLE Edema improved) Capillary refill: <2 Seconds Gastrointestinal: Normal bowel sounds, Soft and benign Musculoskeletal: No clubbing, No swelling Integumentary: No rashes, No breakdown Neurological: Normal speech, Normal strength at 5/5 x4 extr Assessment And Plan - Plan Assessment plan hypertensive emergency Acute on chronic heart failure secondary to fluid volume overload NSTEMI As needed antihypertensives, Coreg, Valsartan and Nifedipine per renal End-stage renal disease on hemodialysis Nephrology consult Dr. Cyr I&O, daily weight Sepsis without hypotension likely secondary to pneumonia Acute hypoxic respiratory failure secondary to to pneumonia IV antibiotics, O2 keep sats greater than 92% End-stage renal disease on hemodialysis Anemia secondary to chronic kidney disease Renal consult for hemodialysis Diabetes type 2 with polyneuropathy Accu-Cheks, sliding scale insulin History of CVA History of seizures Full code DVT heparin Diet renal Discharge Plan: Home Plan to discharge in: 48 Hours - Code Status/Comfort Care Code Status: Full Code Physician Review: Patient Assessed, Agree with Above Assessment and Plan Critical Care: No Time Spent Managing PTS Care (In Minutes): 35
--- NOTE | 2023-10-09 07:41 | ECHO ---
HEIGHT: 5 ft 8 in WEIGHT: 220 lb 0 oz DATE OF STUDY: 10/08/[address]: Romero Fleming 2-DIMENSIONAL: YES M.MODE: YES DOPPLER: YES COLOR FLOW: YES TDS: PORTABLE: YES DEFINITY: BUBBLE STUDY: DIAGNOSIS: ELEVATED TROPONIN CARDIAC HISTORY: CATHERIZATION: SURGERY: PROSTHETIC VALVE: PACEMAKER: MEASUREMENTS (cm) DIASTOLIC (NORMALS) SYSTOLIC (NORMALS) IVSd 1.3 (0.6-1.2) LA Diam 3.1 (1.9-4.0) LVEF 56% LVIDd 4.2 (3.5-5.7) LVIDs 3.0 (2.0-3.5) %FS 29% LVPWd 1.4 (0.6-1.2) Ao Diam 3.1 (2.0-3.7) 2 DIMENSIONAL ASSESSMENT: RIGHT ATRIUM: NORMAL LEFT ATRIUM: NORMAL RIGHT VENTRICLE: NORMAL LEFT VENTRICLE: LEFT VENTRICULAR HYPERTROPHY TRICUSPID VALVE: MILD TRICUSPID REGURGITATION MITRAL VALVE: NORMAL PULMONIC VALVE: MILD PULMONIC INSUFFICIENCY AORTIC VALVE: NORMAL PERICARDIAL EFFUSION: SMALL AORTIC ROOT: NORMAL LEFT VENTRICULAR WALL MOTION: NORMAL DOPPLER/COLOR FLOW: SEE BELOW COMMENTS: 1. NORMAL LEFT VENTRICULAR EJECTION FRACTION 55-60% WITH NORMAL WALL MOTION 2. MODERATE DIASTOLIC DYSFUNCTION 3. MODERATE CONCENTRIC LEFT VENTRICULAR HYPERTROPHY 4. MILD TRICUSPID REGURGITATION/ PULMONIC INSUFFICIENCY 5. SMALL PERICARDIAL EFFUSION TECHNOLOGIST: DENY WARD
[2023-10-09] MEDS ORDERED: REGADENOSON 0.4 MG/5 ML SYR IV ONE (08:27)
[2023-10-09] MEDS: HYDRALAZINE HCL 25 MG TABLET PO SCH (09:00)
[2023-10-09] MEDS: NIFEDIPINE XL 60 MG TABLET PO SCH (09:00)
[2023-10-09] MEDS: VALSARTAN 80 MG TAB PO SCH (09:00)
[2023-10-09] MEDS: DOXAZOSIN 2 MG TAB PO SCH ×2 (09:00→20:54)
[2023-10-09] MEDS: HOME MED 1 EA UNK (Insulin Degludec [Tresiba Flextouch U-100] 100 UNIT/ML Insuln.Pen) SQ SCH (09:00)
--- NOTE | 2023-10-09 10:24 | RAD REPORT ---
EXAM DESCRIPTION: NM - Rest Stress Cardiac Imaging - 10/09/2023 9:59 am CLINICAL HISTORY: elevated troponin COMPARISON: No comparisons TECHNIQUE: The patient was administered approximately 10.8 mCi of Tc 99m Sestamibi prior to resting SPECT imaging of the heart. The patient was then administered approximately 29.7 mCi of Tc 99m Sestam ibi following exercise or pharmacologic stress. Multiplanar SPECT images were reviewed. FINDINGS: No stress induced ischemic defect is seen to suggest stress induced ischemia. Fixed mid to basal segment inferolateral wall moderate-sized defect. The end diastolic volume is 79 ml, the end systolic volume is 33 ml, and the ejection fraction is 58 %. IMPRESSION: Moderate-sized fixed mid to basal segment inferolateral wall defect, suggestive of remot e infarct or scarring. No evidence of stress-induced myocardial ischemia. Normal left ventricular ejection fraction, 58%.
[2023-10-09] MEDS: SEVELAMER CARBONATE 800 MG TABLET PO SCH ×2 (12:26→13:27)
[2023-10-09] MEDS: ATORVASTATIN 40 MG TAB PO SCH (12:26)
[2023-10-09] MEDS: levETIRAcetam 500 MG TAB PO SCH (12:26)
[2023-10-09] MEDS: CALCIUM ACETATE 667 MG TAB PO SCH (12:26)
--- NOTE | 2023-10-09 13:33 | P.DS ---
Admission Date: 10/05/23 Discharge Date: 10/09/23 Primary Care Provider: Klarissa Disposition: ROUTINE DISCHARGE Discharge Condition: GOOD Reason for Admission: AMS, Hypoglycemia, Hemodialysis - Problems (1) ESRD (end stage renal disease) on dialysis Current Visit: Yes Status: Acute Brief History of Present Illness: Pt is a 63 year old resident of [facility]. She was sent per EMS for AMS, hypoglycemia, and need for hemodialysis. Unable to obtain much information as pt arrives with AMS, hypoglycemia. [place] states pt missed dialysis Saturday. Upon eval in ED, pt sonorous, resp rate 40, +murmur. Pt to be admitted for dialysis and evaluation for infection. Right upper field of CXR appears more pronounced than previous Physical Exam: Vitals: reviewed GEN: Alert, oriented, NAD HEENT: Normal conjunctiva, sclera anicteric CV: Regular rate & rhythm, BLE edema Pulm: Nonlabored respiraitons, crackles/rales ABD: Soft, nontender, nondistended MSK: No joint tenderness Integumentary: No rashes Neuro: Normal speech, normal affect Hospital Course: Patient treated for hypertensive urgency with as needed antihypertensives, treated with IV antibiotics, O2 keep saturations greater than 92% sepsis without hypotension likely secondary to pneumonia. Patient with end-stage renal disease on hemodialysis, nephrology following Renal consulted for hemodialysis. Insulin-dependent diabetes mellitus Accu- Cheks with sliding scale insulin Home insulin resumed. Past medical history of CVA, seizures, home medications were resumed. ESRD on HD -HD per nephrology HTN with CKD/ CHF -Continue Coreg -Continue Valsartan and Nifedipine Diastolic CHF, chronic -Continue Coreg -HD with UF -Daily weight DM II with CKD & Polyneuropathy -Continue Tresiba -RISS Anemia in CKD -Retacrit prn CKD MBD -Continue Phoslo & Renvela CT of the head No acute bony findings. IMPRESSION: No evidence of an acute intracranial process. Chronic findings as above, suggestive of normal pressure hydrocephalus in the appropriate clinical setting, and sequelae of chronic small vessel ischemic changes Chest x-ray IMPRESSION: Partially improved changes of edema, with underlying stable central venous congestion. nuclear medicine stress test MPRESSION: Moderate-sized fixed mid to basal segment inferolateral wall defect, suggestive of remote infarct or scarring.No evidence of stress-induced myocardial ischemia.Normal left ventricular ejection fraction, 58%. 10/08 Echocardiogram COMMENTS: 1. NORMAL LEFT VENTRICULAR EJECTION FRACTION 55-60% WITH NORMAL WALL MOTION 2. MODERATE DIASTOLIC DYSFUNCTION 3. MODERATE CONCENTRIC LEFT VENTRICULAR HYPERTROPHY 4. MILD TRICUSPID REGURGITATION/ PULMONIC INSUFFICIENCY 5. SMALL PERICARDIAL EFFUSION Vital Signs/Physical Exam: Temp Pulse Resp BP Pulse Ox 97.8 F 84 18 145/59 H 95 10/09/23 12:00 10/09/23 12:00 10/09/23 12:00 10/09/23 12:00 10/09/23 12:00 Laboratory Data at Discharge: WBC 10.90 thou/uL (4.3-10.9) 10/07/23 06:30 Hgb 8.8 g/dL (12.0-15.0) L 10/07/23 06:30 Hct 26.7 % (36.0-45.0) L 10/07/23 06:30 Plt Count 410 thou/uL (152-406) H 10/07/23 06:30 PT 11.9 SECONDS (9.5-12.5) 10/05/23 04:55 INR 1.08 10/05/23 04:55 APTT 30.7 SECONDS (24.3-36.9) 10/05/23 04:55 Sodium 135 mEq/L (136-145) L 10/07/23 06:20 Potassium 4.0 mEq/L (3.5-5.1) 10/07/23 06:20 BUN 65 mg/dL (7-18) H 10/07/23 06:20 Creatinine 7.70 mg/dL (0.55-1.02) H 10/07/23 06:20 Glucose 165 mg/dL (74-106) H 10/07/23 06:20 Phosphorus 5.3 mg/dL (2.5-4.9) H 10/07/23 06:20 Magnesium 2.2 mg/dL (1.6-2.4) 10/06/23 04:30 Total Bilirubin 0.4 mg/dL (0.2-1.0) 10/06/23 04:30 AST 18 U/L (15-37) 10/06/23 04:30 ALT 13 U/L (13-56) 10/06/23 04:30 Alkaline Phosphatase 152 U/L (45-117) H 10/06/23 04:30 Home Medications: Atorvastatin Calcium 40 mg PO DAILY 10/05/23 Calcium Acetate 667 mg PO DAILY 10/05/23 Carvedilol [Coreg] 12.5 mg PO BID 10/05/23 Clonidine Patch [Catapres-Tts 1*] 0.1 mg TD EVERY 7TH DAY 10/05/23 Doxazosin [Cardura*] 4 mg PO BID 10/05/23 Hydralazine HCl 50 mg PO DAILY 10/05/23 Insulin Degludec [Tresiba Flextouch U-100] 20 unit SQ DAILY 10/05/23 Levetiracetam [Keppra Xr] 500 mg PO DAILY 10/05/23 NIFEdipine [Nifedipine ER] 60 mg PO DAILY 10/05/23 Olmesartan Medoxomil 40 mg PO DAILY 10/05/23 Sevelamer HCl [Renagel] 800 mg PO DAILY 10/05/23 Azithromycin Tab [Zithromax*] 500 mg PO DAILY 5 Days #5 tab 10/09/23 Calcium Acetate [Phoslo*] 667 mg PO DAILY tab 10/09/23 Insulin -Regular Human [Novolin -R*] See Protocol SQ ACHS ml 10/09/23 Sevelamer Carbonate [Renvela*] 800 mg PO BREAKFAST 10/09/23 carvediloL [Coreg*] 12.5 mg PO BID 6AM 6PM tab 10/09/23 New Medications: Azithromycin Tab [Zithromax*] 500 mg PO DAILY 5 Days #5 tab Physician Discharge Instructions: -DC IV, azithromycin 1 daily for 5 days for pneumonia -Follow-up with PCP in 1 to 2 weeks -Follow-up with nephrology for hemodialysis, chronic kidney disease outpatient follow-up -Please call Dr. Owusu at [phone] if any questions regarding hospital stay -Please call nursing station at [phone] if any nursing or medication questions -Return to the emergency room if symptoms worsen - Followup: NONE,NONE [Primary Care Provider] -
--- NOTE | 2023-10-09 16:23 | P.PN ---
Subjective Date of Service: 10/09/23 Primary Care Provider: Klarissa Chief Complaint: AMS, Hypoglycemia, Hemodialysis Subjective: No C/O voiced, Improving Review of Systems 10-point ROS is otherwise unremarkable Physical Examination - Vital Signs Temperature: 97.8 F Blood Pressure: 145/59 Pulse: 84 Respirations: 18 Pulse Ox (%): 95 - Physical Exam General: Alert, In no apparent distress, Oriented x3 HEENT: Atraumatic, Normocephalic Neck: Supple, 2+ carotid pulse no bruit Respiratory: Clear to auscultation bilaterally, Normal air movement Cardiovascular: No edema, Normal pulses Gastrointestinal: Normal bowel sounds, Soft and benign Musculoskeletal: No clubbing, No swelling Neurological: Normal speech, Normal strength at 5/5 x4 extr Assessment And Plan - Plan Assessment plan hypertensive emergency acute on chronic diastolic heart failure secondary to fluid volume overload end- stage renal disease NSTEMI As needed antihypertensives, COMPARISON: Chest Single View dated 09/11/2023; Chest Single View dated 04/08/2022 TECHNIQUE: Portable AP view of the chest. FINDINGS: Partially improved central hazy opacities. Persistent central interstitial prominence. No new focal consolidation No pneumothorax or effusion. Stable cardiomegaly. Mediastinal contours are unremarkable. IMPRESSION: Partially improved changes of edema, with underlying stable central venous congestion. IO, daily weight Sepsis without hypotension likely secondary to pneumonia Acute hypoxic respiratory failure secondary to to pneumonia IV antibiotics, O2 keep sats greater than 92% End-stage renal disease on hemodialysis Renal consult for hemodialysis Diabetes type 2 with polyneuropathy Accu-Cheks, sliding scale insulin. Resume appropriate home medications History of CVA History of seizures Full code DVT heparin Diet renal Discharge Plan: Alf Discharge Plan: Alf - Code Status/Comfort Care Code Status: Full Code Physician Review: Patient Assessed, Agree with Above Assessment and Plan Critical Care: No Time Spent Managing PTS Care (In Minutes): 35
[2023-10-09] MEDS: AZITHROMYCIN 250 MG TAB PO SCH (17:56)
--- NOTE | 2023-10-09 22:31 | P.PN ---
Date of Service: 10/09/23 Vital Signs Temp Pulse Resp BP Pulse Ox 97.8 F 80 18 113/60 95 10/09/23 17:53 10/09/23 20:54 10/09/23 17:53 10/09/23 20:54 10/09/23 17:53 Medications Atorvastatin Calcium (Atorvastatin 40 Mg Tab) 40 mg PO DAILY [facility] Last Admin: 10/09/23 12:26 Dose: 40 mg Azithromycin (Azithromycin 250 Mg Tab) 500 mg PO DAILY [facility] Last Admin: 10/09/23 17:56 Dose: 500 mg Calcium Acetate (Calcium Acetate 667 Mg Tab) 667 mg PO DAILY [facility] Last Admin: 10/09/23 12:26 Dose: 667 mg Carvedilol (Carvedilol 12.5 Mg Tab) 12.5 mg PO BID 6AM 6PM [facility] Last Admin: 10/09/23 17:57 Dose: 12.5 mg Dextrose (D50w 25 Gm/50 Ml Syringe) 12.5 gm IV PRN PRN; Protocol PRN Reason: HYPOGLYCEMIA Doxazosin Mesylate (Doxazosin 2 Mg Tab) 2 mg PO BID [facility] Last Admin: 10/09/23 20:54 Dose: Not Given Glucagon (Glucagon 1 Mg/Vial) 1 mg IM 1X PRN; Protocol PRN Reason: HYPOGLYCEMIA Heparin Sodium (Porcine) (Heparin 1,000 Unit/Ml Vial) 3,000 unit IV EVERY HD PRN PRN Reason: Prevent HD System Clotting Last Admin: 10/09/23 13:27 Dose: 3,000 unit Home Med (Insulin Degludec [Tresiba Flextouch U-100]) 20 unit SQ DAILY [facility] Last Admin: 10/09/23 09:00 Dose: Not Given Hydralazine HCl (Hydralazine Hcl 20 Mg/Ml Vial) 10 mg IV Q4HP PRN PRN Reason: SBP>160 MMHG OR DBP>100 MMHG Last Admin: 10/05/23 11:00 Dose: 10 mg Hydralazine HCl (Hydralazine Hcl 25 Mg Tablet) 50 mg PO DAILY [facility] Last Admin: 10/09/23 09:00 Dose: Not Given Insulin Human Regular (Insulin Regular (Human) 100 Unit/Ml) 0 unit SQ ACHS [facility]; Protocol Last Admin: 10/09/23 20:53 Dose: 6 unit Levetiracetam (Levetiracetam 500 Mg Tab) 500 mg PO DAILY [facility] Last Admin: 10/09/23 12:26 Dose: 500 mg Nifedipine (Nifedipine Xl 60 Mg Tablet) 60 mg PO DAILY [facility] Last Admin: 10/09/23 09:00 Dose: Not Given Sevelamer Carbonate (Sevelamer Carbonate 800 Mg Tablet) 800 mg PO BREAKFAST [facility] Last Admin: 10/09/23 12:26 Dose: 800 mg Valsartan (Valsartan 80 Mg Tab) 80 mg PO DAILY [facility] Last Admin: 10/09/23 09:00 Dose: Not Given Lab Results (last 24 hrs) 10/04/23 20:45: Urine Color Cancelled, Urine Clarity Cancelled, Urine pH Cancelled, Ur Specific [place] Cancelled, Glucose (UA)(Auto) Cancelled, Urine Ketones Cancelled, Urine Blood Cancelled, Urine Nitrite Cancelled, Urine Bilirubin Cancelled, Urine Urobilinogen Cancelled, Ur Leukocyte Esterase Cancelled, Urine RBC Cancelled, Urine Red Cell Clumps Cancelled, Urine WBC Cancelled, Urine WBC Clumps Cancelled, Ur Squamous Epith Cells Cancelled, U Non- Squamous Epi Cells Cancelled, Ur Transition Epith Cell Cancelled, Ur Renal Epithelial Cell Cancelled, Calcium Carbonate Cryst Cancelled, Calcium Oxalate Crystal Cancelled, Leucine Crystals Cancelled, Cystine Crystals Cancelled, Uric Acid Crystals Cancelled, Triple Phos Crystals Cancelled, Tyrosine Crystals Cancelled, Unidentified Crystals Cancelled, Amorphous Crystals Cancelled, Urine Bacteria Cancelled, Hyaline Casts Cancelled, Granular Casts Cancelled, Waxy Casts Cancelled, RBC Casts Cancelled, WBC Casts Cancelled, Urine Mucus Cancelled, Urine Trichomonas Cancelled, Ur Yeast w Hyphae Cancelled, Urine Yeast (Budding) Cancelled, Urine Sperm Cancelled, Ur Oval Fat Bodies Cancelled, Urine Culture Reflexed Cancelled, Urine Total Protein Cancelled, Urine Ascorbic Acid Cancelled, Urine Fat Cancelled Microbiology Results 10/04/23 20:40 Blood - Blood Aerobic Blood Culture - Final No growth in 5 days. 10/04/23 20:40 Blood - Blood Anaerobic Blood Culture - Final No growth in 5 days. 10/04/23 20:40 Nasopharnyx Influenza Type A Antigen Screen - Final 10/04/23 20:40 Nasopharnyx Influenza Type B Antigen Screen - Final Assessment/ Plan: Nephrology No dyspnea No chest pain No acute events overnight Vitals, medications, blood work and imaging reviewed in the chart. NAD. NCAT. MMM. Neck supple. Normal respiratory effort. RRR. Abd ND. No C/C. LE Edema none. No rash. AAO. Normal speech. ESRD on HD -HD TIW -HD today HTN with CKD/ CHF -Continue Coreg -Continue Valsartan and Nifedipine Diastolic CHF, chronic -Continue Coreg -HD with UF -Daily weight DM II with CKD & Polyneuropathy -Continue Tresiba -RISS Anemia in CKD -Retacrit prn CKD MBD -Continue Phoslo & Renvela EXAM DESCRIPTION: RADChest Single View10/04/2023 9:19 pm CLINICAL HISTORY: AMS COMPARISON: Chest Single View dated 09/11/2023; Chest Single View dated 04/08/2022 TECHNIQUE: Portable AP view of the chest. FINDINGS: Partially improved central hazy opacities. Persistent central interstitial prominence. No new focal consolidation No pneumothorax or effusion. Stable cardiomegaly. Mediastinal contours are unremarkable. IMPRESSION: Partially improved changes of edema, with underlying stable central venous congestion.
[2023-10-10] MEDS: carvediloL 12.5 MG TAB PO SCH (06:41)
[2023-10-10] MEDS: INSULIN REGULAR (HUMAN) 100 UNIT/ML SQ SCH ×3 (07:30→16:18)
--- NOTE | 2023-10-10 07:47 | TREADPHA ---
DX: ELEVATED TROPONIN Date of Study: 10/09/2023 Ht: 5' 8 " Wt: 220 lb 0 oz Consulting Physician: GIRMA MEDICATIONS: LIPITOR, PHOSLO, COREG, DEXTROSE, CARDURA, GLUCAGEN, HEPARIN, APRESOLINE, NOVOLIN-R, KEPPRA, PROCARDIA, RENVELA, DIOVAN HISTORY: 63 YEAR OLD FEMALE HERE FOR A STRESS TEST FROM HER DOCTOR. HISTORY OF END STAGE RENAL DISEASE, DIABETES MELLITUS, HYPERTENSION, HIGH CHOLESTEROL, SEIZURES PHYSICIAL EXAMINATION: RESTING B.P.: 130/58 RESTING H.R.: 80 RESTING EKG: SINUS RHYTHM WITH PREMATURE ATRIAL COMPLEXES PROTOCOL: PHARMACOLOGIC EXERCISE TIME: 3:30 B.P. AT PEAK STRESS: 134/53 IMPRESSION: LEXISCAN INJECTED. CARDIOLITE INJECTED - SEE NUCLEAR MEDICINE REPORT. NO SUPRAVENTRICULAR TACHYCARDIA, VENTRICULAR TACHYCARDIA, NO ARRHYTHMIAS NOTED. PATIENT DENIES CHEST PAIN. NO CHANGE IN BASELINE RHYTHM. PREMATURE ATRIAL COMPLEXES NOTED. NO ELECTROCARDIOGRAM CHANGES OF ISCHEMIA WITH LEXISCAN.
[2023-10-10] MEDS: AZITHROMYCIN 250 MG TAB PO SCH (08:37)
[2023-10-10] MEDS: ATORVASTATIN 40 MG TAB PO SCH (08:38)
[2023-10-10] MEDS: SEVELAMER CARBONATE 800 MG TABLET PO SCH (08:38)
[2023-10-10] MEDS: levETIRAcetam 500 MG TAB PO SCH (08:38)
[2023-10-10] MEDS: CALCIUM ACETATE 667 MG TAB PO SCH (08:38)
[2023-10-10] MEDS: HYDRALAZINE HCL 25 MG TABLET PO SCH (08:39)
[2023-10-10] MEDS: DOXAZOSIN 2 MG TAB PO SCH (08:39)
[2023-10-10] MEDS: HOME MED 1 EA UNK (Insulin Degludec [Tresiba Flextouch U-100] 100 UNIT/ML Insuln.Pen) SQ SCH (08:39)
[2023-10-10] MEDS: VALSARTAN 80 MG TAB PO SCH (08:39)
[2023-10-10] MEDS: NIFEDIPINE XL 60 MG TABLET PO SCH (08:40)
[2023-10-10] MEDS ORDERED: BENZONATATE 100 MG CAP PO PRN (09:43)
[2023-10-10] MEDS ORDERED: D10W 125 ML IV PRN (09:51)
[2023-10-10 10:31] VITALS: O2SAT 98
[2023-10-10 15:53] VITALS: BP 120/66; TEMP 97
--- NOTE | 2023-10-10 20:36 | P.PN ---
Date of Service: 10/10/23 Vital Signs Temp Pulse Resp BP Pulse Ox 97.0 F 76 13 120/66 97 10/10/23 15:52 10/10/23 15:52 10/10/23 15:52 10/10/23 15:52 10/10/23 15:52 Microbiology Results 10/04/23 20:40 Blood - Blood Aerobic Blood Culture - Final No growth in 5 days. 10/04/23 20:40 Blood - Blood Anaerobic Blood Culture - Final No growth in 5 days. 10/04/23 20:40 Nasopharnyx Influenza Type A Antigen Screen - Final 10/04/23 20:40 Nasopharnyx Influenza Type B Antigen Screen - Final Assessment/ Plan: Nephrology No dyspnea No chest pain No acute events overnight Vitals, medications, blood work and imaging reviewed in the chart. NAD. NCAT. MMM. Neck supple. Normal respiratory effort. RRR. Abd ND. No C/C. LE Edema none. No rash. AAO. Normal speech. ESRD on HD -HD TIW HTN with CKD/ CHF -Continue Coreg -Continue Valsartan and Nifedipine Diastolic CHF, chronic -Continue Coreg -HD with UF -Daily weight DM II with CKD & Polyneuropathy -Continue Tresiba -RISS Anemia in CKD -Retacrit prn CKD MBD -Continue Phoslo & Renvela EXAM DESCRIPTION: RADChest Single View10/04/2023 9:19 pm CLINICAL HISTORY: AMS COMPARISON: Chest Single View dated 09/11/2023; Chest Single View dated 04/08/2022 TECHNIQUE: Portable AP view of the chest. FINDINGS: Partially improved central hazy opacities. Persistent central interstitial prominence. No new focal consolidation No pneumothorax or effusion. Stable cardiomegaly. Mediastinal contours are unremarkable. IMPRESSION: Partially improved changes of edema, with underlying stable central venous congestion.
[2023-10-14] MEDS ORDERED: CLONIDINE 0.1 MG/PATCH TD SCH (09:00)
== END 2023-10-10 17:00 | DRG 871 ==
LOC: ER 20:24 → ERHOLD 10-05 03:15 → 3RD-ICU 10-05 19:27 → 4TH 10-07 21:27
PROVIDERS: ADMIT Internal Medicine Nephrology; ATTEND Hospitalist
PROC: 5A1D70Z Performance of Urinary Filtration, Intermittent, Less than 6 Hours Per Day (ICD-10-PCS; principal; 2023-10-05)
DX: A41.9 Sepsis, unspecified organism (principal); G92.8 Other toxic encephalopathy; I21.4 Non-ST elevation (NSTEMI) myocardial infarction; J18.9 Pneumonia, unspecified organism; N18.6 End stage renal disease; I50.33 Acute on chronic diastolic (congestive) heart failure; J96.01 Acute respiratory failure with hypoxia; I13.2 Hypertensive heart and chronic kidney disease with heart failure and with stage 5 chronic kidney disease, or end stage renal disease; I16.1 Hypertensive emergency; E11.22 Type 2 diabetes mellitus with diabetic chronic kidney disease; E11.42 Type 2 diabetes mellitus with diabetic polyneuropathy; E11.649 Type 2 diabetes mellitus with hypoglycemia without coma; D63.1 Anemia in chronic kidney disease; Z99.2 Dependence on renal dialysis; Z11.52 Encounter for screening for COVID-19; Z86.73 Personal history of transient ischemic attack (TIA), and cerebral infarction without residual deficits; Z91.158 Patient's noncompliance with renal dialysis for other reason
CPT/HCPCS: 36415; 36600; 70450; 71045; 78452; 80053; 80069; 82805; 82947; 83605; 83735; 84100; 84443; 84484; 85025; 85610; 85730; 86706; 87040; 87340; 87635; 87804; 90935; 93005; 93017; 93306; 94760; 99285; A9500; J0360; J0696; J1644; J1815; J1953; J2785

== ENCOUNTER → 2023-11-22 | Emergency (ER) | payer OTHER ==
[2023-11-22 17:52] LABS: Absolute Lymphocytes (CBC) 1.4 K/uL (0.7-4.9); Hematocrit 36.5 % (36.0-45.0); Lymphocytes % 11.9 % (15.3-44.8); MCV 84.7 fL (80-100); MPV 7.4 fL (7.6-11.3); Platelets 374 thou/uL (152-406); RBC Red Blood Cell Count 4.31 M/uL (3.86-4.86)
--- NOTE | 2023-11-22 18:40 | EDPHYS ---
Physician Documentation [facility] Name: Lita Ernst Age: 63 yrs Sex: Female : 1960 Arrival Date: 11/22/2023 Time: 14:43 Bed 2 Private MD: ED Physician Rigoberto Carrillo HPI: 11/22 16:48 This 63 yrs old Black Female presents to ER via EMS with complaints of Low Blood Sugar. kdr 16:48 Patient was sent from dialysis center with concern for low glucose levels. EMS reported kdr a glucose of around 90. When the patient arrived here was greater than 100. Patient has no focal complaints. The patient is nonverbal but does shake her head appropriately to questions. She has no complaint now. Onset: The symptoms/episode began/occurred today. Severity of symptoms: At their worst the symptoms were very mild in the emergency department the symptoms are unchanged. It is unknown whether or not the patient has had similar symptoms in the past. It is unknown whether or not the patient has recently seen a physician. Historical: - Allergies: 14:57 unknown med; bp - Home Meds: 14:57 nifedipine 60 mg Oral Tablet [Active]; Keppra Oral [Active]; carvedilol oral [Active]; bp atorvastatin oral [Active]; Aspirin Oral [Active]; - PMHx: 14:57 Cataracts; Diabetes - NIDDM; DIALYSIS MWF; Hypertension; Seizure; bp - PSHx: 14:57 dialysis on the left arm; bp - Immunization history:: Adult Immunizations up to date. - Social history:: Smoking status: Patient denies any tobacco usage or history of. ROS: 16:48 Constitutional: Negative for fever, chills, and weight loss, Eyes: Negative for injury, kdr pain, redness, and discharge, ENT: Negative for injury, pain, and discharge, Neck: Negative for injury, pain, and swelling, Cardiovascular: Negative for chest pain, palpitations, and edema, Respiratory: Negative for shortness of breath, cough, wheezing, and pleuritic chest pain, Abdomen/GI: Negative for abdominal pain, nausea, vomiting, diarrhea, and constipation, Back: Negative for injury and pain, : Negative for injury, bleeding, discharge, and swelling, MS/Extremity: Negative for injury and deformity, Skin: Negative for injury, rash, and discoloration, Psych: Negative for depression, anxiety, suicide ideation, homicidal ideation, and hallucinations, Allergy/Immunology: Negative for hives, rash, and allergies, Endocrine: Negative for neck swelling, polydipsia, polyuria, polyphagia, and marked weight changes, Hematologic/Lymphatic: Negative for swollen nodes, abnormal bleeding, and unusual bruising, 16:48 Neuro: Positive for Negative for altered mental status, loss of consciousness, seizure activity, speech changes, syncope, near syncope, tinnitus, tremor, visual changes, weakness, Exam: 16:48 Constitutional: This is a well developed, well nourished patient who is awake, alert, kdr and in no acute distress. Head/Face: Normocephalic, atraumatic. Eyes: Pupils equal round and reactive to light, extra-ocular motions intact. Lids and lashes normal. Conjunctiva and sclera are non-icteric and not injected. Cornea within normal limits. Periorbital areas with no swelling, redness, or edema. Neck: Trachea midline, no thyromegaly or masses palpated, and no cervical lymphadenopathy. Supple, full range of motion without nuchal rigidity, or vertebral point tenderness. No Meningismus. Chest/axilla: Normal chest wall appearance and motion. Nontender with no deformity. No lesions are appreciated. Cardiovascular: Regular rate and rhythm with a normal S1 and S2. No gallops, murmurs, or rubs. Normal PMI, no JVD. No pulse deficits. Respiratory: Lungs have equal breath sounds bilaterally, clear to auscultation and percussion. No rales, rhonchi or wheezes noted. No increased work of breathing, no retractions or nasal flaring. Abdomen/GI: Soft, non-tender, with normal bowel sounds. No distension or tympany. No guarding or rebound. No evidence of tenderness throughout. Back: No spinal tenderness. No costovertebral tenderness. Full range of motion. Skin: Warm, dry with normal turgor. Normal color with no rashes, no lesions, and no evidence of cellulitis. Psych: Awake, alert, with orientation to person, place and time. Behavior, mood, and affect are within normal limits. Vital Signs: 14:56 BP 180 / 100; Pulse 72; Resp 16; Temp 98; Pulse Ox 97% ; bp 16:54 BP 180 / 106; Pulse 72; Resp 16; Pulse Ox 98% ; bp 18:35 BP 174 / 80; Pulse 72; Resp 16; Pulse Ox 97% ; bp MDM: 16:48 Data reviewed: vital signs, nurses notes, lab test result(s). kdr 18:40 Patient medically screened. kdr 11/22 15:05 Order name: Glucose, Ancillary Testing; Complete Time: 15:47 EDMS 11/22 17:53 Order name: CBC with Automated Diff; Complete Time: 18:36 EDMS 11/22 18:09 Order name: Basic Metabolic Panel; Complete Time: 18:36 EDMS Administered Medications: No medications were administered Disposition Summary: 11/22/23 18:40 Discharge Ordered Notes: Location: Home kdr Problem: new kdr Symptoms: are resolved kdr Condition: Stable kdr Diagnosis - Chronic kidney disease, stage 4 (severe) kdr Followup: kdr - With: Private Physician - When: 2 - 3 days - Reason: If symptoms return, Further diagnostic work-up, Recheck today's complaints, Continuance of care, Re-evaluation by your physician Discharge Instructions: - Discharge Summary Sheet kdr - Dialysis kdr - Chronic Kidney Disease, Adult, Cxss-of-Nmkj kdr Forms: - Medication Reconciliation Form kdr - Thank You Letter kdr - Patient Portal Instructions kdr - Leadership Thank You Letter kdr Signatures: Dispatcher [employer] Rigoberto Conn MD MD kdr Arnav Paris, RN RN bp
--- NOTE | 2023-11-22 18:40 | ER ---
Nurse's Notes [facility] Name: Lita Ernst Age: 63 yrs Sex: Female : 1960 Arrival Date: 11/22/2023 Time: 14:43 Bed 2 Private MD: Diagnosis: Chronic kidney disease, stage 4 (severe) Presentation: 11/22 14:56 Chief complaint: EMS states: SENT FROM DIALYSIS FOR LOW BGL. Coronavirus screen: At bp this time, the client does not indicate any symptoms associated with coronavirus-19. Ebola Screen: No symptoms or risks identified at this time. Initial Sepsis Screen: Does the patient meet any 2 criteria? No. Patient's initial sepsis screen is negative. Does the patient have a suspected source of infection? No. Patient's initial sepsis screen is negative. Risk Assessment: Do you want to hurt yourself or someone else? Patient reports no desire to harm self or others. Note [facility]. Onset of symptoms is unknown. 14:56 Method Of Arrival: EMS: [facility] bp 14:56 Acuity: JERAMY 3 bp Triage Assessment: 14:57 General: Appears in no apparent distress. Behavior is AT BASELINE. Pain: Unable to use bp pain scale. Does not appear to understand pain scale. Historical: - Allergies: 14:57 unknown med; bp - Home Meds: 14:57 nifedipine 60 mg Oral Tablet [Active]; Keppra Oral [Active]; carvedilol oral [Active]; bp atorvastatin oral [Active]; Aspirin Oral [Active]; - PMHx: 14:57 Cataracts; Diabetes - NIDDM; DIALYSIS MWF; Hypertension; Seizure; bp - PSHx: 14:57 dialysis on the left arm; bp - Immunization history:: Adult Immunizations up to date. - Social history:: Smoking status: Patient denies any tobacco usage or history of. Screenin:53 [facility] ED Fall Risk Assessment (Adult) History of falling in the last 3 months, bp including since admission No falls in past 3 months (0 pts). Abuse screen: Denies threats or abuse. Denies injuries from another. Nutritional screening: No deficits noted. Tuberculosis screening: No symptoms or risk factors identified. Assessment: 16:53 Reassessment: MX STAFF UNABLE TO OBTAIN PIV OR BLOOD SPECIMEN, PROVIDER NOTIFIED, bp PHLEBOTOMY REQUESTED. 17:40 Reassessment: BLOOD DRAWN BY PHLEBOTOMY. bp 18:36 Reassessment: Patient is alert, oriented x 3, equal unlabored respirations, skin bp warm/dry/pink. Patient states symptoms have improved. 18:58 Reassessment: [facility] CONTACTED FOR TRANSPORT. bp Vital Signs: 14:56 BP 180 / 100; Pulse 72; Resp 16; Temp 98; Pulse Ox 97% ; bp 16:54 BP 180 / 106; Pulse 72; Resp 16; Pulse Ox 98% ; bp 18:35 BP 174 / 80; Pulse 72; Resp 16; Pulse Ox 97% ; bp ED Course: 14:49 Patient arrived in ED. ko1 14:50 Rigoberto Carrillo MD is Attending Physician. kdr 14:56 Arnav Paris, RN is Primary Nurse. bp 14:57 Triage completed. bp 14:58 Arm band placed on. bp 16:53 Patient has correct armband on for positive identification. Bed in low position. Call bp light in reach. Side rails up X2. 19:27 CBC with Diff Sent. jw7 19:27 Chem 7 Sent. jw7 20:24 Patient did not have IV access during this emergency room visit. pf1 20:25 No provider procedures requiring assistance completed. pf1 Administered Medications: No medications were administered Medication: 20:24 VIS not applicable for this client. pf1 Outcome: 18:40 Discharge ordered by . kdr 20:23 Discharged to residential. pf1 20:23 Condition: stable 20:23 Discharge instructions given to patient, Instructed on discharge instructions, Demonstrated understanding of instructions, 20:25 Patient left the ED. pf1 Signatures: Rigoberto Carrillo MD MD kdr Arnav Paris, RN RN Gwen Domínguez RN RN jw7 Yahaira Avelar RN RN koNoelle Dutton RN RN pf1
[2023-11-22 21:44] VITALS: BP 174/80; TEMP 98; O2SAT 97
== END ==
LOC: ER 14:43
DX: E11.22 Type 2 diabetes mellitus with diabetic chronic kidney disease (principal); I12.9 Hypertensive chronic kidney disease with stage 1 through stage 4 chronic kidney disease, or unspecified chronic kidney disease; N18.4 Chronic kidney disease, stage 4 (severe); Z99.2 Dependence on renal dialysis
CPT/HCPCS: 36415; 80048; 82947; 85025; 99283

== ENCOUNTER → 2023-12-09 | Emergency (ER) | payer OTHER ==
[~2023-12-09] MED LIST: ACETAMINOPHEN 500 MG TAB ONE; FENTANYL CITR 100 MCG/2 ML ONE
--- NOTE | 2023-12-09 19:45 | RAD REPORT ---
EXAM DESCRIPTION: CT - [id number] - 12/09/2023 7:38 pm CLINICAL HISTORY: Trauma, head and neck injury. TRAUMA COMPARISON: <Comparisons> TECHNIQUE: Axial 5 mm thick images of the head were obtained. Axial 2 mm thick images of the cervical spine were obtained with sagittal and coronal reconstruction images generated and reviewed. All CT scans are performed using dose optimization technique as appropriate and may include automated exposure control or mA/KV adjustment according to patient size. FINDINGS: CT HEAD WITHOUT CONTRAST: No acute hemorrhage, hydrocephalus or extra-axial collection is identified.Moderate generalized brain atrophy is present with moderate periventricular and deep white matter chronic microvascular ischemi c changes.No areas of brain edema or midline shift. The paranasal sinuses and mastoids are clear.The calvarium is intact. CT CERVICAL SPINE WITHOUT CONTRAST: No fracture or subluxation.Disc thinning with posterior osteophyte formation is noted lower cervical levels. 4 mm degenerative anterolisthesis is noted C4 on 5.No prevertebral soft tissues swelling is i dentified. Bilateral carotid plaquing is present. IMPRESSION: No acute intracranial or cervical spine findings.
[2023-12-09 20:11] LABS: Absolute Lymphocytes (CBC) 1.6 K/uL (0.7-4.9); Hematocrit 35.5 % (36.0-45.0); Lymphocytes % 14.4 % (15.3-44.8); MCV 84.9 fL (80-100); MPV 7.3 fL (7.6-11.3); Platelets 402 thou/uL (152-406); RBC Red Blood Cell Count 4.18 M/uL (3.86-4.86)
[2023-12-09 20:31] LABS: Albumin 2.6 g/dL (3.4-5.0); Bilirubin Direct 0.1 mg/dL (0-0.2); Bilirubin Indirect, Calculated 0.2 mg/dL (0.2-0.8); Bilirubin Total 0.3 mg/dL (0.2-1.0); Magnesium 2.1 mg/dL (1.6-2.4); Potassium 3.8 mEq/L (3.5-5.1); Protein, Total 7.9 g/dL (6.4-8.2)
[2023-12-09 20:33] LABS: Troponin High Sensitivity 227.4 pg/mL (<58.9)
--- NOTE | 2023-12-09 20:54 | RAD REPORT ---
EXAM DESCRIPTION: RAD - Chest Single View - 12/09/2023 8:44 pm CLINICAL HISTORY: fall Chest pain. COMPARISON: <Comparisons> FINDINGS: Portable technique limits examination quality. Mild pulmonary edema is suspected. The heart is moderately enlarged. No displaced fractures.Stent mat erial is present left upper arm. IMPRESSION: Mild CHF.
--- NOTE | 2023-12-09 20:55 | RAD REPORT ---
EXAM DESCRIPTION: RAD - Shoulder Right 2 View - 12/09/2023 8:43 pm CLINICAL HISTORY: PAIN COMPARISON: <Comparisons> FINDINGS: Mildly impacted fracture suspected proximal right humerus. There is advanced osteoarthriti c change also present.
--- NOTE | 2023-12-09 20:58 | RAD REPORT ---
EXAM DESCRIPTION: RAD - Pelvis - 12/09/2023 8:44 pm CLINICAL HISTORY: PAIN COMPARISON: <Comparisons> FINDINGS: No fracture, dislocation or radiographic evidence of AVN. IMPRESSION: Negative study.
--- NOTE | 2023-12-09 21:02 | RAD REPORT ---
EXAM DESCRIPTION: RAD - Knee Right 3 View - 12/09/2023 8:44 pm CLINICAL HISTORY: PAIN COMPARISON: <Comparisons> FINDINGS: Diffuse osteopenia is present. No acute fracture or dislocation seen. Small suprapatellar joint effusion.
--- NOTE | 2023-12-09 21:03 | RAD REPORT ---
EXAM DESCRIPTION: RAD - Knee Left 2 View - 12/09/2023 8:44 pm CLINICAL HISTORY: PAIN COMPARISON: <Comparisons> FINDINGS: Examination is quite limited due to nonstandard anatomic positioning. Moderate osteopenia. No gross fracture or dislocation seen.
--- NOTE | 2023-12-09 21:17 | ER ---
Nurse's Notes [facility] Name: Lita Ernst Age: 63 yrs Sex: Female : 1960 Arrival Date: 12/09/2023 Time: 19:19 Bed 7 Private MD: Diagnosis: Fracture of upper end of humerus Presentation: 12/09 19:21 Chief complaint: EMS states: pt found on the floor by nurse, [facility], pt unable to rv recall incident, complaining of right shoulder pain and left knee pain. denies neck and head pain at this time. Coronavirus screen: At this time, the client does not indicate any symptoms associated with coronavirus-19. Ebola Screen: No symptoms or risks identified at this time. Initial Sepsis Screen: Does the patient meet any 2 criteria? No. Patient's initial sepsis screen is negative. Does the patient have a suspected source of infection? No. Patient's initial sepsis screen is negative. Risk Assessment: Do you want to hurt yourself or someone else? Patient reports no desire to harm self or others. Onset of symptoms was December 09, 2023. 19:21 Method Of Arrival: EMS: [facility] rv 19:21 Acuity: JERAMY 3 rv Triage Assessment: 19:23 General: Appears comfortable, Behavior is calm, cooperative. Pain: Complains of pain in rv right shoulder, left knee. Neuro: Level of Consciousness is awake, alert, obeys commands, Oriented to person, place, time. Cardiovascular: Capillary refill < 3 seconds Patient's skin is warm and dry. Respiratory: Airway is patent Respiratory effort is even, unlabored. GI: No signs and/or symptoms were reported involving the gastrointestinal system. : No signs and/or symptoms were reported regarding the genitourinary system. Musculoskeletal: Range of motion: intact in all extremities, Reports pain in right shoulder, left knee. Historical: - Allergies: 19:23 No Known Allergies; rv - PMHx: 19:23 Cataracts; Diabetes - NIDDM; DIALYSIS MWF; Hypertension; Seizure; rv - PSHx: 19:23 dialysis on the left arm; rv - Immunization history:: Adult Immunizations unknown. - Social history:: Smoking status: Patient denies any tobacco usage or history of. Screenin:26 [facility] ED Fall Risk Assessment (Adult) History of falling in the last 3 months, rv including since admission No falls in past 3 months (0 pts) Score/Fall Risk Level 3 or more points = High Risk Oriented to surroundings, Maintained a safe environment, Educated pt \T\ family on fall prevention, incl call for assistance when getting out of bed, Assessed \T\ reinforced patient's understanding of fall precautions. Abuse screen: Denies threats or abuse. Denies injuries from another. Nutritional screening: No deficits noted. Tuberculosis screening: No symptoms or risk factors identified. Assessment: 21:30 General: attempted to call [facility] to arrange transport and give report. no as6 answer. will try to call back . 21:44 General: attempted to call [facility]. no answer . as6 Vital Signs: 19:21 Weight 90.72 kg; Height 5 ft. 4 in. ; rv 19:24 BP 137 / 76; Pulse 84; Resp 18; Temp 97.7(O); Pulse Ox 100% on R/A; Weight 90.72 kg; oe Height 5 ft. 4 in. ; Pain 5/10; 20:30 BP 131 / 74; Pulse 86; Resp 18; Pulse Ox 99% on R/A; rv 22:00 BP 137 / 80; Pulse 81; Resp 18; Temp 98; Pulse Ox 99% ; rv 19:24 Body Mass Index 34.33 (90.72 kg, 162.56 cm) oe 19:24 Pain Scale: Adult oe ED Course: 19:21 Patient arrived in ED. rv 19:22 Hudson Faust MD is Attending Physician. rt 19:23 Triage completed. rv 19:23 Arm band placed on right wrist. rv 19:26 Patient has correct armband on for positive identification. Client placed on continuous rv cardiac and pulse oximetry monitoring. NIBP monitoring applied. 19:26 No provider procedures requiring assistance completed. rv 19:36 Deni Garcias, SHALINI is Primary Nurse. rv 19:39 CT Head C Spine In Process Unspecified. EDMS 19:59 Attending Physician role handed off by Hudson Faust MD ec2 19:59 Edinson Medina MD is Attending Physician. ec2 20:16 Inserted saline lock: 20 gauge in right antecubital area, using aseptic technique. rv Blood collected. ultrasound guided. 20:44 Knee Left 2 View In Process Unspecified. EDMS 20:45 Shoulder Right (2 View) XRAY In Process Unspecified. EDMS 20:45 Knee Right 3 View XRAY In Process Unspecified. EDMS 20:45 Pelvis XRAY In Process Unspecified. EDMS 20:46 Chest Single View XRAY In Process Unspecified. EDMS 21:16 Bry Resendiz MD is Referral Physician. ec2 22:39 IV discontinued, intact, bleeding controlled, No redness/swelling at site. Pressure rv dressing applied. Administered Medications: 20:12 Drug: fentaNYL (PF) IVP 25 mcg IVP once Route: IVP; Site: right antecubital; rv 22:11 Follow up: Response: No adverse reaction rv 22:11 Not Given (Patient Refused): [id number] mg PO once rv Medication: 19:26 VIS not applicable for this client. rv Outcome: 21:16 Discharge ordered by . ec2 22:38 Discharged to [facility]. Report called to margot chapin via ems rv 22:38 Condition: good 22:38 Instructed on discharge instructions, follow up and referral plans. medication usage, Demonstrated understanding of instructions, follow-up care, medications, Prescriptions given X 1, 22:39 Patient left the ED. rv Signatures: Dispatcher [employer] EDMS Duke Parks oe Deni Garcias, SHALINI RN rv Crow Ibarra RN RN as6 Hudson Faust MD MD rt Corral, Edwin, MD MD ec2
--- NOTE | 2023-12-09 21:18 | EDPHYS ---
Physician Documentation [facility] Name: Lita Ernst Age: 63 yrs Sex: Female : 1960 Arrival Date: 12/09/2023 Time: 19:19 Bed 7 Private MD: ED Physician Edinson Medina HPI: 12/09 19:36 This 63 yrs old Black Female presents to ER via EMS with complaints of Syncope. rt 19:36 Patient with ESRD presents to the ED with a fall. Patient reportedly slid out of her rt wheelchair, she cannot recall the events, unclear if she passed out or not. She reportedly did hit her head but denies any head or neck pain. She reports pain to her right shoulder, bilateral knees, worse on the left. Denies other acute complaints, symptoms are moderate severity, no other aggravating or elevating factors.. Historical: - Allergies: 19:23 No Known Allergies; rv - PMHx: 19:23 Cataracts; Diabetes - NIDDM; DIALYSIS MWF; Hypertension; Seizure; rv - PSHx: 19:23 dialysis on the left arm; rv - Immunization history:: Adult Immunizations unknown. - Social history:: Smoking status: Patient denies any tobacco usage or history of. ROS: 19:37 Constitutional: Negative for fever, chills, and weight loss, Cardiovascular: Negative rt for chest pain, palpitations, and edema, Respiratory: Negative for shortness of breath, cough, wheezing, and pleuritic chest pain, Abdomen/GI: Negative for abdominal pain, nausea, vomiting, diarrhea, and constipation, Skin: Negative for injury, rash, and discoloration, Psych: Negative for depression, anxiety, suicide ideation, homicidal ideation, and hallucinations, 19:37 MS/extremity: Positive for pain, swelling, Exam: 19:37 Constitutional: This is a well developed, well nourished patient who is awake, alert, rt and in no acute distress. Head/Face: Normocephalic, atraumatic. Chest/axilla: Normal chest wall appearance and motion. Nontender with no deformity. No lesions are appreciated. Cardiovascular: Regular rate and rhythm with a normal S1 and S2. No gallops, murmurs, or rubs. Normal PMI, no JVD. No pulse deficits. Respiratory: Lungs have equal breath sounds bilaterally, clear to auscultation and percussion. No rales, rhonchi or wheezes noted. No increased work of breathing, no retractions or nasal flaring. Abdomen/GI: Soft, non-tender, with normal bowel sounds. No distension or tympany. No guarding or rebound. No evidence of tenderness throughout. Skin: Warm, dry with normal turgor. Normal color with no rashes, no lesions, and no evidence of cellulitis. Neuro: Awake and alert, GCS 15, oriented to person, place, time, and situation. Cranial nerves II-XII grossly intact. Motor strength 5/5 in all extremities. Sensory grossly intact. Cerebellar exam normal. Normal gait. Psych: Awake, alert, with orientation to person, place and time. Behavior, mood, and affect are within normal limits. 19:37 Musculoskeletal/extremity: Mild tenderness on right shoulder, no deformities noted. There is tenderness to the bilateral knees with mild swelling on the left.. Vital Signs: 19:21 Weight 90.72 kg; Height 5 ft. 4 in. ; rv 19:24 BP 137 / 76; Pulse 84; Resp 18; Temp 97.7(O); Pulse Ox 100% on R/A; Weight 90.72 kg; oe Height 5 ft. 4 in. ; Pain 5/10; 20:30 BP 131 / 74; Pulse 86; Resp 18; Pulse Ox 99% on R/A; rv 22:00 BP 137 / 80; Pulse 81; Resp 18; Temp 98; Pulse Ox 99% ; rv 19:24 Body Mass Index 34.33 (90.72 kg, 162.56 cm) oe 19:24 Pain Scale: Adult oe MDM: 19:22 Patient medically screened. rt 20:03 Data reviewed: vital signs. Transition of care: Care assumed from Hudson Faust MD. ec2 ED course: Patient signed out to me by previous physician, in brief patient arrives today after ground-level fall versus possible syncopal episode. Plan is to follow-up lab work and imaging. Per signout physician, anticipate if negative workup likely discharge home.. 20:41 ED course: Metabolic profile shows no renal dysfunction with her ESRD, no hyperkalemia ec2 noted, CBC is reassuring, LFTs are nonactionable, BNP is elevated at 6000, troponin is elevated 227. . 20:42 ED course: When compared to external records, this troponin is lower than most recent ec2 in September. Patient without any specific chest pain, will suspicion for ACS. Pending EKG. 20:58 ED course: Chest x-ray without traumatic process, show x-ray shows impacted fracture, ec2 patient with pain in this area, will put in a sling and have her follow-up with surgery. . 21:07 ED course: Bilateral knee x-rays without traumatic pathology identified. . ec2 21:12 ED course: EKG independently reviewed and interpreted by me, shows normal sinus rhythm, ec2 rate of 86, no acute ST elevations, intervals are nonconcerning, PAC noted.. 21:16 ED course: I discussed results with the patient as well as the family, will discharge ec2 home. In regards to patient's elevated troponin, this appears lower than her baseline, patient not any complaints of chest pain and has a reassuring EKG, suspect this is secondary to her CKD. Patient discharged home. Return precautions given.. 12/09 19:34 Order name: Basic Metabolic Panel; Complete Time: 20:40 rt 12/09 19:34 Order name: CBC with Diff; Complete Time: 20:40 rt 12/09 19:34 Order name: LFT's; Complete Time: 20:40 rt 12/09 19:34 Order name: Magnesium; Complete Time: 20:40 rt 12/09 19:34 Order name: NT PRO-BNP; Complete Time: 20:40 rt 12/09 19:34 Order name: Troponin HS; Complete Time: 20:40 rt 12/09 19:23 Order name: CT Head C Spine; Complete Time: 19:59 rt 12/09 19:23 Order name: Shoulder Right (2 View) XRAY; Complete Time: 20:57 rt 12/09 19:23 Order name: Knee Right 3 View XRAY; Complete Time: 21:06 rt 12/09 19:23 Order name: Pelvis XRAY; Complete Time: 21:00 rt 12/09 19:37 Order name: Chest Single View XRAY; Complete Time: 20:57 rt 12/09 20:44 Order name: Knee Left 2 View; Complete Time: 21:06 EDMS 12/09 19:34 Order name: EKG; Complete Time: 19:34 rt 12/09 19:34 Order name: Cardiac monitoring; Complete Time: 20:15 rt 12/09 19:34 Order name: EKG - Nurse/Tech; Complete Time: 21:08 rt 12/09 19:34 Order name: IV Saline Lock; Complete Time: 20:15 rt 12/09 19:34 Order name: Labs collected and sent; Complete Time: 20:15 rt 12/09 19:34 Order name: O2 Per Protocol; Complete Time: 20:15 rt 12/09 19:34 Order name: O2 Sat Monitoring; Complete Time: 20:15 rt 12/09 20:58 Order name: Sling; Complete Time: 21:08 ec2 Administered Medications: 20:12 Drug: fentaNYL (PF) IVP 25 mcg IVP once Route: IVP; Site: right antecubital; rv 22:11 Follow up: Response: No adverse reaction rv 22:11 Not Given (Patient Refused): [id number] mg PO once rv Disposition Summary: 12/09/23 21:16 Discharge Ordered Condition: Stable ec2 Diagnosis - Fracture of upper end of humerus ec2 Followup: ec2 - With: Bry Resendiz MD - When: - Reason: Recheck today's complaints Discharge Instructions: - Discharge Summary Sheet ec2 - Humerus Fracture Treated With Immobilization, [id number]-[id number] ec2 Forms: - Medication Reconciliation Form ec2 - Thank You Letter ec2 - Antibiotic Education ec2 - Prescription Opioid Use ec2 - Patient Portal Instructions ec2 - Leadership Thank You Letter ec2 Prescriptions: - acetaminophen-codeine 300-15 mg Oral tablet - take 1 tablet ORAL route 2 times per day; 15 tablet; Refills: 0, Product ec2 Selection Permitted Signatures: Dispatcher [employer] Deni Flores RN RN rv Hudson Faust MD MD rt Edinson Medina MD MD ec2 Corrections: (The following items were deleted from the chart) 20:44 19:23 Knee Left 3 View+RAD.RAD.BRZ ordered. CASSIDY BENJAMIN
[2023-12-10 00:49] VITALS: BP 137/80; TEMP 98; O2SAT 99
== END ==
LOC: ER 19:19
DX: S42.201A Unspecified fracture of upper end of right humerus, initial encounter for closed fracture (principal); E11.22 Type 2 diabetes mellitus with diabetic chronic kidney disease; I12.0 Hypertensive chronic kidney disease with stage 5 chronic kidney disease or end stage renal disease; N18.6 End stage renal disease; Z99.2 Dependence on renal dialysis
CPT/HCPCS: 93005; 85025; 80048; 36415; 83735; 80076; 84484; 83880; 70450; 72125; 71045; 72170; 73030; 73562; 73560; 96374; 99284; J3010

== ENCOUNTER 2024-02-14 16:09 | Inpatient (IN) | payer OTHER ==
[2024-02-14] MEDS ORDERED: ONDANSETRON 4 MG/2 ML VIAL ONE ×2 (16:30→20:31)
[2024-02-14 17:43] LABS: Absolute Basophils 0.1 K/uL (0-0.5); Absolute Monocytes 0.5 K/uL (0.1-1.3); Absolute Neutrophil 9.6 K/uL (1.8-8.0); Basophils % 0.6 % (0-1.3); Eosinophils % 0.1 % (0-4.4); Hematocrit 33.8 % (36.0-45.0); Hemoglobin 10.8 g/dL (12.0-15.0); MCH 26.4 pg (27.0-35.0); MCHC 31.9 g/dL (32.0-36.0); MCV 82.7 fL (80-100); MPV 7.8 fL (7.6-11.3); Monocytes % 4.7 % (3.3-12.3); Neutrophils % 85.6 % (41.7-73.7); Platelets 472 thou/uL (152-406); RBC Red Blood Cell Count 4.09 M/uL (3.86-4.86); Red Cell Distribution Width 17.6 % (12.1-15.2)
[2024-02-14 17:44] LABS: PTT, Activated Partial Thromb 31.1 SECONDS (24.3-36.9)
--- NOTE | 2024-02-14 17:44 | RAD REPORT ---
EXAM DESCRIPTION: CT - Head Brain Wo Cont - 02/14/2024 5:33 pm CLINICAL HISTORY: AMS Headache, drowsiness COMPARISON: Head Brain Wo Cont dated 01/20/2024; Head Brain Wo Cont dated 10/04/2023 TECHNIQUE: All CT scans are performed using dose optimization technique as appropriate and may inclu de automated exposure control or mA/KV adjustment according to patient size. 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 The paranasal sinuses and mastoids are clear. The calvarium is intact. IMPRESSION: No acute intracranial abnormality.
[2024-02-14 17:45] LABS: PT Prothrombin Time 11.9 SECONDS (9.5-12.5); Protime INR 1.08
--- NOTE | 2024-02-14 17:45 | RAD REPORT ---
EXAM DESCRIPTION: RAD - Chest Single View - 02/14/2024 5:37 pm CLINICAL HISTORY: AMS, dialysis Chest pain. COMPARISON: Chest Single View dated 01/20/2024; Chest Single View dated 12/09/2023; Chest Single View dated 10/04/2023; Chest Single View dated 09/11/2023 FINDINGS: Portable technique limits examination quality. Mild pulmonary edema. The heart is significantly enlarged. No displaced fractures. IMPRESSION: Mild CHF versus volume overload.
--- NOTE | 2024-02-14 17:46 | RAD REPORT ---
EXAM DESCRIPTION: CT - Abdomen Pelvis Wo Contrast - 02/14/2024 5:35 pm CLINICAL HISTORY: Abdominal pain. AMS, vomiting COMPARISON: No comparisons TECHNIQUE: CT imaging of the abdomen and pelvis was performed without contrast. Solid organ, bowel a nd vascular assessment is limited due to lack of IV and oral contrast. All CT scans are performed using dose optimization technique as appropriate and may include automated exposure control or mA/KV adjustment according to patient size. FINDINGS: Mild atelectasis seen in the lingula. The liver, spleen, pancreas, adrenal glands and kidneys are within normal limits for a limited non-co ntrast examination. No bowel obstruction, free air, free fluid or abscess. Moderate stool throughout the colon. The appen liliana is normal. Fibroid uterus. The osseous structures are within normal limits. IMPRESSION: No acute intra-abdominal or pelvic findings. A limited non-contrast examination was performed as detailed.
[2024-02-14 17:53] LABS: Albumin 2.9 g/dL (3.4-5.0); Albumin/Globulin Ratio 0.5 (1.1-1.8); Anion Gap 10.1 mEq/L (5.0-15.0); Bilirubin Total 0.4 mg/dL (0.2-1.0); Globulin 5.8 g/dL (2.3-3.5); Potassium 3.1 mEq/L (3.5-5.1); Protein, Total 8.7 g/dL (6.4-8.2)
--- NOTE | 2024-02-14 17:59 | ER ---
Nurse's Notes [facility] Name: Lita Ernts Age: 63 yrs Sex: Female : 1960 Arrival Date: 02/14/2024 Time: 16:09 Bed 18 Private MD: Diagnosis: Altered mental status, unspecified;Intractable vomiting Presentation: 02/13 16:18 Chief complaint: EMS states: Pt was picked up from [facility] after she got back kd3 from dialysis. Nursing staff reports the patient has had some mental decline for approximately 3 days. The decision was made to send the patient to the Er when she refused to swallow water and simply held it in her mouth. Pt has a history of HTN but other campbell shows no other stroke like symptoms. Pt did complete her dialysis today. Coronavirus screen: unknown. Ebola Screen: No symptoms or risks identified at this time. Risk Assessment: Do you want to hurt yourself or someone else? Patient reports no desire to harm self or others. Onset of symptoms was February 11, 2024. 16:18 Method Of Arrival: EMS: [facility] kd3 16:18 Acuity: JERAMY 3 kd3 17:21 Initial Sepsis Screen: Does the patient meet any 2 criteria? No. Patient's initial kd3 sepsis screen is negative. Does the patient have a suspected source of infection? No. Patient's initial sepsis screen is negative. Triage Assessment: 17:21 General: Appears in no apparent distress. Behavior is calm, cooperative. Pain: Denies kd3 pain. Historical: - PMHx: 17:21 Cataracts; Diabetes - NIDDM; Diabetes - NIDDM; DIALYSIS MWF; DIALYSIS MWF; kd3 Hypertension; Hypertension; Seizure; Seizure; - PSHx: 17:21 dialysis on the left arm; kd3 - Immunization history:: Adult Immunizations up to date. - Social history:: Smoking status: unknown. - Family history:: not pertinent. - Hospitalizations: : No recent hospitalization is reported. Screenin:33 [place] Swallow Protocol Brief Cognitive Screen What is your name? Normal, Where are you jb4 right now? Abnormal: Landon not know where she is. Oral Mechanism Examination Facial Symmetry: Normal, Motion: Normal, Lip Closure: Normal, Oral Mechanism Result: Normal. 3 oz Water Swallow Challenge: Pt able to drink all water without stopping, coughing, choking or throat clearing: Yes Result: PASS Notified: Adán Menchaca. 21:49 [facility] ED Fall Risk Assessment (Adult) History of falling in the last 3 months, jb4 including since admission No falls in past 3 months (0 pts) Confusion or Disorientation Yes (5 pts) Intoxicated or Sedated No (0 pts) Impaired Gait No (0 pts) Mobility Assist Device Used No (0 pt) Altered Elimination No (0 pt) Score/Fall Risk Level 3 or more points = High Risk Oriented to surroundings, Maintained a safe environment. Abuse screen: Denies threats or abuse. Nutritional screening: No deficits noted. Tuberculosis screening: No symptoms or risk factors identified. Assessment: 18:49 General: Pt still continues to vomit clear, Green fluids. Pt straight cathed for urine, kd3 EKG performed. Pt placed on continuous monitoring. Full bed change performed. Pt placed in dry gown. warm blanket provided. Pt is slow to respond. . 19:08 Reassessment: Dr. Menchaca notified pt's B/p 243/106, provider states " That's high." No jb4 orders given. 19:24 Reassessment: asked provider again if pt needs something for blood pressure. Provider jb4 states give 10mg of Hydralazine x1 IV. 20:09 General: Pt's sons phone number is [phone]. kd3 21:49 Reassessment: Pt remains A\\T\\Ox1. Hospitalist made aware of current vitals and that pt jb4 vomited after PO challenge. Pt made NPO. Receiving unit updated. Vital Signs: 17:21 BP 206 / 86; Pulse 89; Resp 19; Temp 98.2; Pulse Ox 98% on R/A; Weight 54.43 kg; kd3 18:45 BP 243 / 106; Pulse 88; Resp 15; Pulse Ox 99% on R/A; kd3 19:11 BP 266 / 102; Pulse 84; Resp 17; Pulse Ox 100% ; kd3 19:15 BP 256 / 107; Pulse 76; Resp 18; Pulse Ox 99% ; kd3 19:45 BP 266 / 103; Pulse 92; Resp 15; Pulse Ox 99% ; kd3 21:32 BP 207 / 87; Pulse 93; Resp 20; Pulse Ox 100% on R/A; jb4 ED Course: 16:18 Patient arrived in ED. kd3 16:19 Danielito Ortiz MD is Attending Physician. rn 16:22 Triage completed. kd3 17:21 Belle Velasquez, RN is Primary Nurse. kd3 17:21 Arm band placed on left wrist. kd3 17:22 Blood Culture Adult (2) Sent. kd3 17:22 CBC with Diff Sent. kd3 17:22 CMP Sent. kd3 17:23 Lactate w/ 2H reflex if indic. Sent. kd3 17:23 Protime (+inr) Sent. kd3 17:23 Ptt, Activated Sent. kd3 17:23 Initial lab(s) drawn, by ri, sent to lab. First set of blood cultures drawn Second set kd3 of blood cultures drawn. Inserted saline lock: 20 gauge in right upper arm, using aseptic technique. Blood collected. 17:34 CT Head Brain wo Cont In Process Unspecified. EDMS 17:37 CT Abd/Pelvis - Without Contrast In Process Unspecified. EDMS 17:39 Chest Single View XRAY In Process Unspecified. EDMS 17:58 Adán Menchaca is Hospitalizing Provider. rn 18:51 Urinalysis w/ reflexes Sent. kd3 21:49 Patient has correct armband on for positive identification. Bed in low position. Call jb4 light in reach. Side rails up X 1. Provided Education on: need for admit, re-oriented to location.. 21:49 No provider procedures requiring assistance completed. Patient admitted, IV remains in jb4 place. Administered Medications: 17:22 Drug: Ondansetron IVP 4 mg IVP once; over 2 minutes Route: IVP; Site: left upper arm; kd3 18:20 Drug: Promethazine IVP 6.25 mg IVP once Route: IVP; Site: right upper arm; kd3 Medication: 21:49 VIS not applicable for this client. jb4 Outcome: 17:59 Decision to Hospitalize by Provider. rn 21:49 Admitted to Tele accompanied by tech, via wheelchair, room 421, with chart, Report jb4 called to SHALINI Berger 21:49 Condition: stable 21:52 Patient left the ED. jb4 Signatures: Dispatcher [employer] EDMS Danielito Ortiz MD MD rn Calderon, Audri, RN RN aa5 Cameron Saleh RN RN jb4 Belle Velasquez RN RN kd3 Corrections: (The following items were deleted from the chart) 16:20 16:20 Ana Mccrary RN is Primary Nurse. aa5 aa5
--- NOTE | 2024-02-14 17:59 | EDPHYS ---
Physician Documentation [facility] Name: Lita Ernst Age: 63 yrs Sex: Female : 1960 Arrival Date: 02/14/2024 Time: 16:09 Bed 18 Private MD: ED Physician Danielito Ortiz HPI: 02/13 16:34 This 63 yrs old Black Female presents to ER via EMS with complaints of AMS. rn 16:34 The patient presents with decreased mental status, decreased responsiveness. Onset: The rn symptoms/episode began/occurred 3 day(s) ago. Possible causes: unknown. Current symptoms: In the emergency department the patient's symptoms are unchanged from the initial presentation. The patient has experienced similar episodes in the past. EMS [facility] for altered mental status. senior care staff reported noticing a mental decline for the last 3 days. No known trauma. Completed dialysis today. Has had issues with hypoglycemia in the past. Son is here and states that she does this somewhat frequently, but agrees that patient is not at her baseline. Patient not really cooperative with HPI but is able to deny any focal pain. Reports generalized weakness and nausea. During examination patient had episode of emesis. Historical: - PMHx: 17:21 Cataracts; Diabetes - NIDDM; Diabetes - NIDDM; DIALYSIS MWF; DIALYSIS MWF; kd3 Hypertension; Hypertension; Seizure; Seizure; - PSHx: 17:21 dialysis on the left arm; kd3 - Immunization history:: Adult Immunizations up to date. - Social history:: Smoking status: unknown. - Family history:: not pertinent. - Hospitalizations: : No recent hospitalization is reported. ROS: 16:34 Constitutional: Negative for fever, chills, and weight loss, Eyes: Negative for injury, rn pain, redness, and discharge, Neck: Negative for injury, pain, and swelling, Cardiovascular: Negative for chest pain, palpitations, and edema, Respiratory: Negative for shortness of breath, cough, wheezing, and pleuritic chest pain, Abdomen/GI: Negative for abdominal pain, positive for nausea MS/Extremity: Negative for injury and deformity, Skin: Negative for injury, rash, and discoloration, Neuro: Positive for generalized weakness Exam: 16:34 Constitutional: This is a well developed, well nourished patient who is awake, alert, rn somnolent, answers more of son's questions than ours Head/Face: Normocephalic, atraumatic. ENT: Dry mucous membranes, no stridor Cardiovascular: Regular rate and rhythm. No pulse deficits. Respiratory: No increased work of breathing, no retractions or nasal flaring. Abdomen/GI: Soft, mild mid abdominal tenderness, no rebound MS/ Extremity: Pulses equal, no cyanosis. Neuro: Awake, somnolent, moves all 4 extremities with 4 out of 5 strength, able to answer most questions, more verbal with the son in the room and direct questions from him. No facial droop noted. No unilateral weakness noted 18:51 ECG was reviewed by the Attending Physician. [facility] Vital Signs: 17:21 BP 206 / 86; Pulse 89; Resp 19; Temp 98.2; Pulse Ox 98% on R/A; Weight 54.43 kg; kd3 18:45 BP 243 / 106; Pulse 88; Resp 15; Pulse Ox 99% on R/A; kd3 19:11 BP 266 / 102; Pulse 84; Resp 17; Pulse Ox 100% ; kd3 19:15 BP 256 / 107; Pulse 76; Resp 18; Pulse Ox 99% ; kd3 19:45 BP 266 / 103; Pulse 92; Resp 15; Pulse Ox 99% ; kd3 21:32 BP 207 / 87; Pulse 93; Resp 20; Pulse Ox 100% on R/A; jb4 MDM: 16:19 Patient medically screened. rn 17:52 Differential Diagnosis: CVA, electrolyte abnormality, volume depletion. rn 17:57 Data reviewed: vital signs, nurses notes, lab test result(s), radiologic studies, CT rn scan, and as a result, I will admit patient. Consideration of Admission/Observation Patient was admitted/placed on observation. Escalation of care including admission/observation considered. Care significantly affected by the following chronic conditions: Diabetes, Hypertension, Chronic Kidney Disease. Counseling: I had a detailed discussion with the patient and/or guardian regarding the historical points, exam findings, and any diagnostic results supporting the discharge/admit diagnosis, lab results, radiology results, the need for further work-up and treatment in the hospital. ED course: Patient with several episodes of vomiting, not responding to Zofran or Phenergan. Patient also holds emesis in mouth and I am concerned over risk of aspiration. Cath UA ordered to rule out UTI but at this point no acute findings of infection. Will admit to hospitalist service for further evaluation and testing.. 02/13 16:27 Order name: Blood Culture Adult (2) rn 02/13 16:27 Order name: CBC with Diff rn 02/13 16:27 Order name: CMP; Complete Time: 17:56 rn 02/13 16:27 Order name: Lactate w/ 2H reflex if indic.; Complete Time: 17:45 rn 02/13 16:27 Order name: Protime (+inr); Complete Time: 17:45 rn 02/13 16:27 Order name: Ptt, Activated; Complete Time: 17:45 rn 02/13 16:37 Order name: Glucose, Ancillary Testing; Complete Time: 17:18 EDMS 02/13 17:46 Order name: Manual Differential EDMS 02/13 17:52 Order name: Urinalysis w/ reflexes rn 02/13 16:27 Order name: Chest Single View XRAY; Complete Time: 17:50 rn 02/13 16:27 Order name: CT Head Brain wo Cont; Complete Time: 17:50 rn 02/13 16:28 Order name: CT Abd/Pelvis - Without Contrast; Complete Time: 17:50 rn 02/13 16:27 Order name: EKG; Complete Time: 16:28 rn 02/13 16:27 Order name: Accucheck; Complete Time: 17:22 rn 02/13 16:27 Order name: Cardiac monitoring; Complete Time: 17:22 rn 02/13 16:27 Order name: EKG - Nurse/Tech; Complete Time: 18:52 rn 02/13 16:27 Order name: IV Saline Lock - Large Bore; Complete Time: 17:22 rn 02/13 16:27 Order name: Labs collected and sent; Complete Time: 17:22 rn 02/13 16:27 Order name: O2 Per Protocol; Complete Time: 17:22 rn 02/13 16:27 Order name: O2 Sat Monitoring; Complete Time: 17:22 rn 02/13 16:27 Order name: Vital Signs; Complete Time: 17:22 rn EC:51 Rate is 94 beats/min. Rhythm is regular. QRS [place] is Normal. VA interval is normal. QRS maurisio interval is normal. QT interval is prolonged at 517 msec. No Q waves. T waves are Normal. No ST changes noted. Clinical impression: NSR w/ Non-specific ST/T Changes, Abnormal EKG without significant change, and No evidence of ischemia. Interpreted by me. Reviewed by me. Administered Medications: 17: Drug: Ondansetron IVP 4 mg IVP once; over 2 minutes Route: IVP; Site: left upper arm; kd3 18:20 Drug: Promethazine IVP 6.25 mg IVP once Route: IVP; Site: right upper arm; kd3 Disposition Summary: 02/14/24 17:59 Hospitalization Ordered Notes: Hospitalization Status: Observation rn Provider: Adán Menchaca rn Location: Telemetry/MedSurg (observation) rn Condition: Stable rn Problem: new rn Symptoms: have improved rn Bed/Room Type: Standard rn Room Assignment: 421(02/14/24 19:59) rv1 Diagnosis - Altered mental status, unspecified rn - Intractable vomiting rn Forms: - Medication Reconciliation Form rn - SBAR form rn - Leadership Thank You Letter rn Signatures: Dispatcher [employer] EDAddiosn Campos MD MD cha Nieto, Roman, MD MD rn Doucette, Kyli, RN RN kd3 Damari Ford rv1 Corrections: (The following items were deleted from the chart) 19:59 17:59 rn rv1
[2024-02-14] MEDS ORDERED: NA CHLORIDE 0.9% 50 ML ONE (18:06)
[2024-02-14] MEDS ORDERED: PROMETHAZINE INJ 25 MG/ML AMP ONE (18:06)
[2024-02-14 18:37] LABS: Band Neutrophils 1 % (0-1); Blood Morphology Comment NOTED (NOT SEEN); Differential Total Cells Count 100; Lymphocytes 19 % (15-42); Monocytes 1 % (0-10); Platelet Estimate ADEQ; Reactive Lymphocytes 1 %; Segmented Neutrophils 78 % (40-80)
[2024-02-14 18:38] LABS: Hypochromasia 1+
[2024-02-14 18:56] LABS: Specific Gravity 1.011 (1.005-1.030); Sqamous Epithelial <5 /HPF (None Seen); Urine Bacteria None Seen /HPF (<20); Urine Bilirubin NEGATIVE (Negative); Urine Blood Negative (Negative); Urine Clarity Clear (Clear); Urine Color Light-Yellow (Yellow); Urine Culture Reflex Order NOT NEEDED; Urine Glucose 1+ (Negative); Urine Ketones NEGATIVE (Negative); Urine Microscopic Reflex YN ORDER UMIC; Urine Mucus Slight /HPF (None Seen); Urine Nitrite NEGATIVE (Negative); Urine Protein 3+ (Negative); Urine RBC <5 /HPF (None Seen); Urine Urobilinogen Normal (Normal); Urine WBC <5 /HPF (<5); Urine pH 7.5 (5.0-7.0)
--- NOTE | 2024-02-14 19:56 | P.HP ---
Certification for Inpatient Patient admitted to: Observation With expected LOS: <2 Midnights Practitioner: I am a practitioner with admitting privileges, knowledge of patient current condition, hospital course, and medical plan of care. Services: Services provided to patient in accordance with Admission requirements found in Title 42 Section 412.3 of the Code of Federal Regulations Patient History Date of Service: 02/14/24 Reason for admission: Altered mental status History of Present Illness: 63-year-old woman with a history of end-stage renal disease on hemodialysis, seizure disorders, diabetes mellitus was transferred from the retirement to the emergency department due to altered mental status. According to report, symptoms have been present for about 3 days, no reported noncompliance with hemodialysis, no reported seizure activity. Patient was altered and could not provide any history in the ED. Blood work in the ED has been unremarkable, except mild leukocytosis. UA does not suggest UTI, head CT is negative. Noted severely elevated blood pressure with systolic in the 200s. Patient given a dose of hydralazine, she vomited once in the ED. Patient is hospitalized for further management. Allergies No Known Drug Allergies Allergy (Verified 10/05/23 06:29) Unknown Home Medications: Atorvastatin Calcium 40 mg PO DAILY 10/05/23 Calcium Acetate 667 mg PO DAILY 10/05/23 Carvedilol [Coreg] 12.5 mg PO BID 10/05/23 Levetiracetam [Keppra Xr] 500 mg PO DAILY 10/05/23 Calcium Acetate [Phoslo*] 667 mg PO DAILY tab 10/09/23 Sevelamer Carbonate [Renvela*] 800 mg PO BREAKFAST 10/09/23 carvediloL [Coreg*] 12.5 mg PO BID 6AM 6PM tab 10/09/23 Aspirin [Aspirin EC 81 MG] 1 tab PO DAILY 01/24/24 Hydralazine [Apresoline*] 100 mg PO TID tab 01/24/24 Valsartan [Diovan*] 160 mg PO BID tab 01/24/24 cloNIDine HCL [Clonidine HCl] 1 tab PO BID 01/24/24 - Past Medical/Surgical History Diabetic: Yes -: ESRD (Dr. Cyr/ Dr. Yoon) -: HTN -: DM II with Hyperglycemia -: HLD -: Hx CVA -: Hx Seizure - Social History Alcohol use: No CD- Drugs: No Place of Residence: [place] Review of Systems is unable to be obtained Physical Examination - Physical Exam General: In no apparent distress, Confused HEENT: Mucous membr. moist/pink Neck: Supple, JVD not distended Respiratory: Clear to auscultation bilaterally, Normal air movement Cardiovascular: No edema, Regular rate/rhythm, Normal S1 S2 Gastrointestinal: Normal bowel sounds, Soft and benign, Non-distended, No ascites, No tenderness Musculoskeletal: Swelling (Bilateral knee swelling), Contractures (Bilateral knees) Integumentary: No erythema, Other (Healing wound left leg) Neurological: Other (Left-sided weakness) Lymphatics: No axilla or inguinal lymphadenopathy - Studies Laboratory Data (last 24 hrs) 02/14/24 02/14/24 02/14/24 17:15 17:15 17:15 WBC 11.20 H Hgb 10.8 L Hct 33.8 L Plt Count 472 H PT 11.9 INR 1.08 APTT 31.1 Sodium 134 L Potassium 3.1 L BUN 13 Creatinine 2.55 H Glucose 223 H Total Bilirubin 0.4 AST 14 L ALT 19 Alkaline Phosphatase 131 H Assessment and Plan - Problems (Diagnosis) (1) Metabolic encephalopathy Current Visit: Yes Status: Acute (2) History of seizures Current Visit: Yes Status: Acute (3) ESRD (end stage renal disease) on dialysis Current Visit: No Status: Acute (4) Type 2 diabetes mellitus with hyperglycemia Current Visit: Yes Status: Acute - Plan Metabolic encephalopathy History of seizures Hypertensive urgency History of CVA. Unclear etiology Patient with history of seizures and CVA. Severe hypertension Hypertensive encephalopathy versus seizures. Aggressive blood pressure control, patient not tolerating p.o. so we will use clonidine patch, IV hydralazine and IV labetalol as needed. Will consider MRI given history of CVA IV Keppra until patient can tolerate p.o. Keep n.p.o. overnight No evidence of sepsis. Follow cultures. End-stage renal disease on hemodialysis Patient has no significant uremia to explain her altered mental status. Nephrology consulted for routine hemodialysis. Type 2 diabetes with hyperglycemia Insulin sliding scale for glucose management. - Advance Directives Does patient have a Living Will: No Does patient have a Durable POA for Healthcare: No
[2024-02-14] MEDS: HYDRALAZINE HCL 20 MG/ML VIAL IV ONE (20:09)
[2024-02-14] MEDS: ONDANSETRON 4 MG/2 ML VIAL IV PRN (20:32)
[2024-02-14] MEDS: CLONIDINE 0.1 MG/PATCH TD SCH (22:00)
[2024-02-14] MEDS: INSULIN REGULAR (HUMAN) 100 UNIT/ML SQ SCH (23:13)
[2024-02-14] MEDS: levETIRAcetam 500 MG in NA CHLORIDE 0.9% 100 ML IV SCH (23:14)
[2024-02-15] MEDS: LABETALOL 20 MG/4ML SYRINGE IV PRN (00:40)
[2024-02-15 01:46] VITALS: BMI 21.2
[2024-02-15] MEDS: HYDRALAZINE HCL 20 MG/ML VIAL IV PRN (02:07)
[2024-02-15 05:51] LABS: Absolute Lymphocytes (CBC) 1.2 K/uL (0.7-4.9); Absolute Monocytes 0.6 K/uL (0.1-1.3); Basophils % 0.5 % (0-1.3); Hematocrit 37.7 % (36.0-45.0); Hemoglobin 12.1 g/dL (12.0-15.0); Lymphocytes % 11.1 % (15.3-44.8); MCH 26.4 pg (27.0-35.0); MCHC 31.9 g/dL (32.0-36.0); MCV 82.8 fL (80-100); MPV 7.8 fL (7.6-11.3); Monocytes % 5.9 % (3.3-12.3); Neutrophils % 82.5 % (41.7-73.7); Nucleated Red Blood Cells % 0.2 % (0-0); Platelets 542 thou/uL (152-406); RBC Red Blood Cell Count 4.56 M/uL (3.86-4.86); Red Cell Distribution Width 17.8 % (12.1-15.2)
[2024-02-15 06:27] LABS: Albumin 3.1 g/dL (3.4-5.0); Albumin/Globulin Ratio 0.5 (1.1-1.8); Anion Gap 13.8 mEq/L (5.0-15.0); Bilirubin Total 0.4 mg/dL (0.2-1.0); Magnesium 2.2 mg/dL (1.6-2.4); Potassium 2.8 mEq/L (3.5-5.1); Protein, Total 9.1 g/dL (6.4-8.2); Thyroid Stimulating Hormone 0.842 uIU/mL (0.358-3.740)
--- NOTE | 2024-02-15 08:11 | P.PN ---
Subjective Date of Service: 02/15/24 Chief Complaint: Altered mental status Presented with altered mental status, history of end-stage renal disease on hemodialysis, HX noncompliance - Physical Exam General: In no apparent distress, Confused HEENT: Mucous membr. moist/pink Neck: Supple, JVD not distended Respiratory: Clear to auscultation bilaterally, Normal air movement Cardiovascular: No edema, Regular rate/rhythm, Normal S1 S2 Gastrointestinal: Normal bowel sounds, Soft and benign, Non-distended, No ascites, No tenderness Musculoskeletal: Swelling (Bilateral knee swelling), Contractures (Bilateral knees) Integumentary: No erythema, Other (Healing wound left leg) Neurological: Other (Left-sided weakness) Lymphatics: No axilla or inguinal lymphadenopathy <Lorin Baker - Last Filed: 02/15/24 13:23> Date of Service: 02/15/24 <Gt Rosario - Last Filed: 02/15/24 17:25> Review of Systems per HPI <Lorin Baker - Last Filed: 02/15/24 13:23> Physical Examination - Vital Signs Temperature: 96.7 F Blood Pressure: 168/73 Pulse: 96 Respirations: 20 Pulse Ox (%): 99 - Studies Laboratory Data (last 24 hrs) 02/14/24 02/14/24 02/14/24 17:15 17:15 17:15 WBC 11.20 H Hgb 10.8 L Hct 33.8 L Plt Count 472 H PT 11.9 INR 1.08 APTT 31.1 Sodium 134 L Potassium 3.1 L BUN 13 Creatinine 2.55 H Glucose 223 H Total Bilirubin 0.4 AST 14 L ALT 19 Alkaline Phosphatase 131 H <Lorin Baker - Last Filed: 02/15/24 13:23> - Studies Laboratory Data (last 24 hrs) 02/14/24 02/14/24 02/14/24 17:15 17:15 17:15 WBC 11.20 H Hgb 10.8 L Hct 33.8 L Plt Count 472 H PT 11.9 INR 1.08 APTT 31.1 Sodium 134 L Potassium 3.1 L BUN 13 Creatinine 2.55 H Glucose 223 H Total Bilirubin 0.4 AST 14 L ALT 19 Alkaline Phosphatase 131 H <Gt Rosario - Last Filed: 02/15/24 17:25> Assessment And Plan - Plan Assessment plan Metabolic encephalopathy History of seizures Hypertensive urgency History of CVA. Unclear etiology 02/13 CT of the head IMPRESSION: No acute intracranial abnormality. Patient with history of seizures and CVA. Hypertensive encephalopathy versus seizures. Aggressive blood pressure control, patient not tolerating p.o. so we will use clonidine patch, IV hydralazine and IV labetalol as needed. Will consider MRI given history of CVA IV Keppra until patient can tolerate p.o. PRN Hydralazine PT Eval End-stage renal disease on hemodialysis CT of the abdomen pelvisIMPRESSION: No acute intra-abdominal or pelvic findings.A limited non-contrast examination was performed as detailed. 02/13 chest x-ray IMPRESSION: Mild CHF versus volume overload. Patient has no significant uremia to explain her altered mental status. Nephrology consulted for routine hemodialysis. Hypokalemia improved potassium 3.1->2.8 Trend electrolytes replace as needed Leukocytosis likely reactive to fluid volume overload UA negative for acute cystitis Trend WBCs, blood culture pending Type 2 diabetes with hyperglycemia Insulin sliding scale for glucose management. Full code DVT heparin Diet renal Disposition Home Discharge Plan: Home - Code Status/Comfort Care Code Status: Full Code Critical Care: No Time Spent Managing PTS Care (In Minutes): 35 <Lorin Baker - Last Filed: 02/15/24 13:23> - Plan Pt seen and examined. I agree with the note by the SALES ENGAGEMENT EXECUTIVE. Pt is non-verbal. She had dialysis yesterday. Will continue keppra and other home meds. Will replete potassium. Mag is 2.2 <Gt Rosario - Last Filed: 02/15/24 17:25>
[2024-02-15] MEDS: POTASSIUM CL SA 10 MEQ TAB PO SCH (09:00)
--- NOTE | 2024-02-15 11:12 | P.CNS ---
Date of Consult: 02/15/24 Reason for Consult: ESRD Requesting Physician: tammy odell Chief Complaint: Altered mental status History of Present Illness: 63-year-old woman with a history of end-stage renal disease on hemodialysis, seizure disorders, diabetes mellitus was transferred from the [facility] to [facility] emergency department due to altered mental status. According to report, symptoms have been present for about 3 days, no reported noncompliance with hemodialysis, no reported seizure activity. Patient was altered and could not provide any history in the ED. Blood work in the ED has been unremarkable, except mild leukocytosis. UA does not suggest UTI, head CT is negative. Noted severely elevated blood pressure with systolic in the 200s. Patient given a dose of hydralazine, she vomited once in the ED. Patient is hospitalized for further management. 16:34 This 63 yrs old Black Female presents to ER via EMS with complaints of AMS. rn 16:34 The patient presents with decreased mental status, decreased responsiveness. Onset: The rn symptoms/episode began/occurred 3 day(s) ago. Possible causes: unknown. Current symptoms: In the emergency department the patient's symptoms are unchanged from the initial presentation. The patient has experienced similar episodes in the past. EMS brings patient from [facility] for altered mental status. [facility] staff reported noticing a mental decline for the last 3 days. No known trauma. Completed dialysis today. Has had issues with hypoglycemia in the past. Son is here and states that she does this somewhat frequently, but agrees that patient is not at her baseline. Patient not really cooperative with HPI but is able to deny any focal pain. Reports generalized weakness and nausea. During examination patient had episode of emesis. Somnolent at the time of examination. Poor historian. Allergies No Known Drug Allergies Allergy (Verified 10/05/23 06:29) Unknown Home medications list reviewed: Yes Home Medications: Atorvastatin Calcium 40 mg PO DAILY 10/05/23 Calcium Acetate 3 cap PO DAILY 10/05/23 carvediloL [Coreg*] 12.5 mg PO BID 6AM 6PM tab 10/09/23 Aspirin [Aspirin EC 81 MG] 1 tab PO DAILY 01/24/24 cloNIDine HCL [Clonidine HCl] 1 tab PO BID 01/24/24 Acetaminophen [Tylenol] 650 mg PO Q6H PRN 02/15/24 Docusate Sodium 100 mg PO BID 02/15/24 Hydralazine [Apresoline*] 50 mg PO DAILY 02/15/24 Insulin Glargine,Hum.rec.anlog [Lantus Solostar] 5 unit SQ BEDTIME 02/15/24 Insulin Lispro See Protocol SQ ACHS 02/15/24 Olmesartan Medoxomil 40 mg PO DAILY 02/15/24 Ondansetron [Zofran] 4 mg PO Q6H PRN 02/15/24 Sennosides [Senna] 2 tab PO DAILY PRN 02/15/24 levETIRAcetam [Levetiracetam] 5 ml PO DAILY 02/15/24 - Past Medical/Surgical History Diabetic: Yes -: ESRD (Dr. Cyr/ Dr. Yoon) -: HTN -: DM II with Hyperglycemia -: HLD -: Hx CVA -: Hx Seizure - Social History Smoking Status: Unknown if ever smoked Alcohol use: No CD- Drugs: No Place of Residence: Assisted Review of Systems 10-point ROS is otherwise unremarkable General: Weakness, Malaise Physical Examination Temp Pulse Resp BP Pulse Ox 96.7 F L 96 H 20 168/73 H 99 02/15/24 08:16 02/15/24 08:16 02/15/24 08:16 02/15/24 08:16 02/15/24 08:16 General: In no apparent distress, Cooperative HEENT: Atraumatic Neck: Supple Respiratory: Clear to auscultation bilaterally, Normal air movement Cardiovascular: No edema, Regular rate/rhythm Gastrointestinal: Soft and benign, Non-distended Musculoskeletal: No clubbing, No contractures Integumentary: No rashes, No cyanosis Neurological: Normal speech (Minimal) Laboratory Data (last 24 hrs) 02/14/24 02/14/24 02/14/24 17:15 17:15 17:15 WBC 11.20 H Hgb 10.8 L Hct 33.8 L Plt Count 472 H PT 11.9 INR 1.08 APTT 31.1 Sodium 134 L Potassium 3.1 L BUN 13 Creatinine 2.55 H Glucose 223 H Total Bilirubin 0.4 AST 14 L ALT 19 Alkaline Phosphatase 131 H Imagings Data: EXAM DESCRIPTION: CT - Abdomen Pelvis Wo Contrast - 02/14/2024 5:35 pm CLINICAL HISTORY: Abdominal pain. AMS, vomiting COMPARISON: No comparisons TECHNIQUE: CT imaging of the abdomen and pelvis was performed without contrast. Solid organ, bowel and vascular assessment is limited due to lack of IV and oral contrast. All CT scans are performed using dose optimization technique as appropriate and may include automated exposure control or mA/KV adjustment according to patient size. FINDINGS: Mild atelectasis seen in the lingula. The liver, spleen, pancreas, adrenal glands and kidneys are within normal limits for a limited non-contrast examination. No bowel obstruction, free air, free fluid or abscess. Moderate stool throughout the colon. The appendix is normal. Fibroid uterus. The osseous structures are within normal limits. IMPRESSION: No acute intra-abdominal or pelvic findings. A limited non-contrast examination was performed as detailed. EXAM DESCRIPTION: CT - Head Brain Wo Cont - 02/14/2024 5:33 pm CLINICAL HISTORY: AMS Headache, drowsiness COMPARISON: Head Brain Wo Cont dated 01/20/2024; Head Brain Wo Cont dated 10/04/2023 TECHNIQUE: All CT scans are performed using dose optimization technique as appropriate and may include automated exposure control or mA/KV adjustment according to patient size. 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 The paranasal sinuses and mastoids are clear. The calvarium is intact. IMPRESSION: No acute intracranial abnormality. EXAM DESCRIPTION: RAD - Chest Single View - 02/14/2024 5:37 pm CLINICAL HISTORY: AMS, dialysis Chest pain. COMPARISON: Chest Single View dated 01/20/2024; Chest Single View dated 12/09/2023; Chest Single View dated 10/04/2023; Chest Single View dated 09/11/2023 FINDINGS: Portable technique limits examination quality. Mild pulmonary edema. The heart is significantly enlarged. No displaced fractures. IMPRESSION: Mild CHF versus volume overload. Conclusions/Impression: ESRD on HD MWF Proteinuria -HD TIW Hyponatremia, resolved Hypokalemia -Replete as ordered HTN with CKD/ CHF -Clonidine patch -Start Atenolol -Start Nifedipine ER Diastolic CHF, chronic -Low sodium diet -HD with UF DM II with CKD, Polyneuropathy -RISS Anemia in CKD -Retacrit prn CKD MBD -Restart Sensipar -Start Ergo Hx of poor compliance Case reviewed with Dr. Odell Thank you kindly for the consultation
[2024-02-15] MEDS: NIFEDIPINE XL 30 MG TABLET PO SCH (11:30)
[2024-02-15] MEDS: atenoloL 50 MG TAB PO ONE (11:30)
[2024-02-15] MEDS: NA CHLORIDE 0.9% 100 ML ONE (11:36)
[2024-02-15] MEDS: KCL 20 MEQ/100 mL IVPB 100 ML IV SCH (11:36)
[2024-02-15] MEDS: CINACALCET HCL 30 MG TAB PO SCH (12:00)
[2024-02-15] MEDS: NEPRO SHAKE 237 ML CAN PO SCH (14:00)
[2024-02-15] MEDS: LORazepam 2 MG/ML VIAL IV ONE (14:40)
[2024-02-15 15:20] LABS: Hepatitis B Surface Ab - Quant > 1000.00 mIU/mL (<8.0); Hepatitis B surface AG Interp. Nonreactive (Nonreactive)
[2024-02-15 15:21] LABS: HBsAG Nonreactive Report Report
[2024-02-15] MEDS: HYDROCODONE/APAP 5/325 MG TAB PO ONE (19:20)
[2024-02-15] MEDS: DOCUSATE NA 100 MG CAP PO SCH (21:00)
[2024-02-15] MEDS: atenoloL 25 MG TAB PO SCH (22:04)
[2024-02-16 07:05] LABS: Absolute Monocytes 1.3 K/uL (0.1-1.3); Absolute Neutrophil 12.5 K/uL (1.8-8.0); Basophils % 0.3 % (0-1.3); Eosinophils % 0.2 % (0-4.4); Hemoglobin 11.9 g/dL (12.0-15.0); Lymphocytes % 12.5 % (15.3-44.8); MCH 25.6 pg (27.0-35.0); MCHC 30.5 g/dL (32.0-36.0); MCV 83.7 fL (80-100); MPV 7.7 fL (7.6-11.3); Monocytes % 8.4 % (3.3-12.3); Neutrophils % 78.6 % (41.7-73.7); Nucleated RBC Absolute Count 0.1 (0-0); Nucleated Red Blood Cells % 0.3 % (0-0); Platelets 633 thou/uL (152-406); RBC Red Blood Cell Count 4.65 M/uL (3.86-4.86); Red Cell Distribution Width 18.4 % (12.1-15.2)
[2024-02-16 07:27] LABS: Anion Gap 14.1 mEq/L (5.0-15.0); Potassium 4.1 mEq/L (3.5-5.1)
--- NOTE | 2024-02-16 08:35 | P.PN ---
Subjective Date of Service: 02/16/24 Chief Complaint: Altered mental status Presented with altered mental status, history of end-stage renal disease on hemodialysis, HX noncompliance responds to verbal, AOx2, poor appetite Resides at [facility], plan for dialysis on Saturday - Physical Exam General: In no apparent distress, AOx2, minimal speech HEENT: Mucous membr. moist/pink Neck: Supple, JVD not distended Respiratory: Clear to auscultation bilaterally, Normal air movement Cardiovascular: No edema, Regular rate/rhythm, Normal S1 S2 Gastrointestinal: Normal bowel sounds, Soft and benign, Musculoskeletal: Generalized weakness Neurological: Other (Left-sided weakness) Lymphatics: No axilla or inguinal lymphadenopathy <Lorin Baker - Last Filed: 02/16/24 16:11> Date of Service: 02/16/24 <Gt Rosario - Last Filed: 02/16/24 16:51> Review of Systems per HPI <Lorin Baker - Last Filed: 02/16/24 16:11> Physical Examination - Vital Signs Temperature: 96.5 F Blood Pressure: 120/56 Pulse: 85 Respirations: 16 Pulse Ox (%): 95 <Lorin Baker - Last Filed: 02/16/24 16:11> - Studies Laboratory Data (last 24 hrs) 02/16/24 02/16/24 06:57 06:57 WBC 15.90 H Hgb 11.9 L Hct 39.0 Plt Count 633 H Sodium 138 Potassium 4.1 D BUN 40 H Creatinine 5.49 H Glucose 266 H <Gt Rosario - Last Filed: 02/16/24 16:51> Assessment And Plan - Plan Assessment plan Metabolic encephalopathy History of seizures Hypertensive urgency improved History of CVA. Unclear etiology 02/13 CT of the head IMPRESSION: No acute intracranial abnormality. Patient with history of seizures and CVA. Hypertensive encephalopathy versus seizures. Aggressive blood pressure control, patient not tolerating p.o. so we will use clonidine patch, IV hydralazine and IV labetalol as needed. Will consider MRI given history of CVA IV Keppra until patient can tolerate p.o. PRN Hydralazine PT Eval End-stage renal disease on hemodialysis Saturday Nephrology following CT of the abdomen pelvisIMPRESSION: No acute intra-abdominal or pelvic findings.A limited non-contrast examination was performed as detailed. 02/13 chest x-ray IMPRESSION: Mild CHF versus volume overload. Patient has no significant uremia to explain her altered mental status. Nephrology consulted for routine hemodialysis. Hypokalemia improved Hyponatremia improved potassium 3.1->2.8->4.1 Trend electrolytes replace as needed Leukocytosis worsening UA negative for acute cystitis Trend WBCs, blood culture pending Blood cultures no growth 02/15 Will start empiric ceftriaxone for worsening WBC Type 2 diabetes with hyperglycemia Insulin sliding scale for glucose management. History of hypertension CKD Restart atenolol, nifedipine, clonidine patch Full code DVT heparin Diet renal Disposition process healthcare Discharge Plan: Prison - Code Status/Comfort Care Code Status: Full Code Critical Care: No Time Spent Managing PTS Care (In Minutes): 35 <Lorin Baker - Last Filed: 02/16/24 16:11> - Plan Pt seen and examined. I agree with the note by the CAMPAIGN MANAGEMENT SPECIALIST. Pt is still non-verbal. Will do HD tomorrow. Continue home med for other chronic medical problems. <Gt Rosario - Last Filed: 02/16/24 16:51>
[2024-02-16] MEDS: ASPIRIN EC 81 MG TAB PO SCH (09:00)
[2024-02-16] MEDS ORDERED: cloNIDine HCL 0.1 MG TAB PO SCH (09:00)
[2024-02-16] MEDS ORDERED: DOCUSATE NA 100 MG CAP PO SCH (09:00)
[2024-02-16] MEDS ORDERED: levETIRAcetam 500 MG/5 ML OSYR PO SCH (09:00)
[2024-02-16] MEDS: ATORVASTATIN 40 MG TAB PO SCH (09:00)
[2024-02-16] MEDS: DRISDOL (VITAMIN D=ERGOCALCIFEROL) 50000 UNIT CAP PO SCH (09:00)
[2024-02-16] MEDS: CEFTRIAXONE 2,000 MG in NA CHLORIDE 0.9% 100 ML IV SCH (10:13)
[2024-02-16] MEDS: MULTIVITAMINS,THERAPEUT 1 TAB PO SCH (10:13)
[2024-02-16] MEDS: INSULIN GLARGINE 100 UNIT/ML SQ SCH (10:14)
[2024-02-16] MEDS ORDERED: MANNITOL 25% 12.5 GM/50 ML VIAL IV PRN (16:24)
[2024-02-16] MEDS ORDERED: NA CHLORIDE 0.9% 1,000 ML IV PRN (16:24)
[2024-02-16] MEDS: carvediloL 12.5 MG TAB PO SCH (16:41)
[2024-02-16] MEDS ORDERED: ALBUMIN HUMAN 25% 50 ML IV SCH (17:00)
[2024-02-16] MEDS ORDERED: INSULIN GLARGINE 100 UNIT/ML SQ SCH (21:00)
[2024-02-17 06:34] LABS: Absolute Basophils 0.1 K/uL (0-0.5); Absolute Lymphocytes (CBC) 2.4 K/uL (0.7-4.9); Absolute Monocytes 1.8 K/uL (0.1-1.3); Absolute Neutrophil 11.1 K/uL (1.8-8.0); Basophils % 0.4 % (0-1.3); Eosinophils % 0.1 % (0-4.4); Hematocrit 39.5 % (36.0-45.0); Hemoglobin 12.3 g/dL (12.0-15.0); Lymphocytes % 15.5 % (15.3-44.8); MCH 26.2 pg (27.0-35.0); MCHC 31.1 g/dL (32.0-36.0); MCV 84.4 fL (80-100); MPV 7.4 fL (7.6-11.3); Monocytes % 11.9 % (3.3-12.3); Neutrophils % 72.1 % (41.7-73.7); Nucleated RBC Absolute Count 0.1 (0-0); Nucleated Red Blood Cells % 0.9 % (0-0); Platelets 508 thou/uL (152-406); RBC Red Blood Cell Count 4.68 M/uL (3.86-4.86); Red Cell Distribution Width 18.7 % (12.1-15.2)
[2024-02-17 06:50] LABS: Anion Gap 13.8 mEq/L (5.0-15.0); Potassium 3.8 mEq/L (3.5-5.1)
--- NOTE | 2024-02-17 13:37 | P.PN ---
Subjective Date of Service: 02/17/24 Chief Complaint: Altered mental status Subjective: No new changes (Continues with decreased responsiveness. Awaiting dialysis. VSS. This a.m. I spoke to patient and she did not respond, stimulated by rubbing pt's leg and she opened her eyes and said, "Momma") <Janey Alanlen - Last Filed: 02/17/24 13:32> Date of Service: 02/18/24 <Gt Rosario Tobi - Last Filed: 02/18/24 22:24> Review of Systems 10-point ROS is otherwise unremarkable General: As per HPI Eyes: Unremarkable ENT: Unremarkable Respiratory: Unremarkable Cardiovascular: Unremarkable Gastrointestinal: Unremarkable Genitourinary: Unremarkable Neurological: As per HPI <Thuy Alany Kyrie - Last Filed: 02/17/24 13:32> Physical Examination - Vital Signs Temperature: 97.5 F Blood Pressure: 161/67 Pulse: 90 Respirations: 18 Pulse Ox (%): 94 - Physical Exam General: Other (poorly responsive, VSS, afebrile. Not eating or drinking. Awaiting dialysis, no noted seizure activity) HEENT: Atraumatic, Normocephalic Neck: JVD not distended Respiratory: Normal air movement Cardiovascular: Normal pulses, Regular rate/rhythm Capillary refill: <2 Seconds Gastrointestinal: Hypoactive Musculoskeletal: No clubbing Integumentary: No rashes Neurological: Abnormal affect Lymphatics: No axilla or inguinal lymphadenopathy External genitalia: Deferred Rectal: Deferred <Janey Alan - Last Filed: 02/17/24 13:32> Assessment And Plan - Plan Assessment plan Metabolic encephalopathy History of seizures Hypertensive urgency improved History of CVA. Unclear etiology 02/13 CT of the head IMPRESSION: No acute intracranial abnormality. Patient with history of seizures and CVA. Hypertensive encephalopathy versus seizures. Aggressive blood pressure control, patient not tolerating p.o. so we will use clonidine patch, IV hydralazine and IV labetalol as needed. Will consider MRI given history of CVA IV Keppra until patient can tolerate p.o. PRN Hydralazine PT Eval End-stage renal disease on hemodialysis Saturday Nephrology following CT of the abdomen pelvisIMPRESSION: No acute intra-abdominal or pelvic findings.A limited non-contrast examination was performed as detailed. 02/13 chest x-ray IMPRESSION: Mild CHF versus volume overload. Patient has no significant uremia to explain her altered mental status. Nephrology consulted for routine hemodialysis. Hypokalemia improved Hyponatremia improved potassium 3.1->2.8->4.1 Trend electrolytes replace as needed Leukocytosis worsening UA negative for acute cystitis Trend WBCs, blood culture pending Blood cultures no growth- continued no growth 02/15 Will start empiric ceftriaxone for worsening WBC, WBC and Neutrophils trending down, will continue abx 02/17/24 Type 2 diabetes with hyperglycemia Insulin sliding scale for glucose management. History of hypertension CKD Restart atenolol, nifedipine, clonidine patch Full code DVT heparin Diet renal Disposition process healthcare Discharge Plan: Senior Living - Code Status/Comfort Care Code Status: Full Code <Janey Alan - Last Filed: 02/17/24 13:32> - Plan Pt seen and examined. I agree with the note by the SPIKEMAKING SUPERVISOR. Pt has AMS> CT head is unremarkable. Will f/u MRI brain. <Gt Rosario - Last Filed: 02/18/24 22:24>
--- NOTE | 2024-02-17 14:24 | EKG ---
Test Date: 2024-02-14 Test Time: 17:21:42 Septic Pump Truck Driver: PATI MEASUREMENT RESULTS: Intervals: Rate: 94 [place]: 158 QRSD: 98 QT: 414 QTc: 517 [place]: P: 74 [place]: 158 QRS: 2 T: 87 INTERPRETIVE STATEMENTS: Normal sinus rhythm Biatrial enlargement Inferior infarct, age undetermined Prolonged QT Abnormal ECG Compared to ECG 01/20/2024 12:45:55 Atrial abnormality now present Myocardial infarct finding now present Electronically Signed On 02-17-24 14:16:01 CDT by Romero Fleming
[2024-02-17] MEDS: EPOETIN ALFA 10,000 UNIT/ML VIAL IV SCH (14:50)
--- NOTE | 2024-02-17 22:15 | P.PN ---
Date of Service: 02/17/24 Vital Signs Temp Pulse Resp BP Pulse Ox 95.7 F L 90 18 165/86 H 100 02/17/24 20:00 02/17/24 20:00 02/17/24 20:00 02/17/24 20:00 02/17/24 20:00 Medications Acetaminophen (Acetaminophen 325 Mg Tablet) 650 mg PO Q4HP PRN PRN Reason: TEMP > 100' F Aspirin (Aspirin Ec 81 Mg Tab) 81 mg PO DAILY [facility] Last Admin: 02/17/24 08:54 Dose: Not Given Atenolol (Atenolol 25 Mg Tab) 25 mg PO BEDTIME [facility] Last Admin: 02/17/24 20:32 Dose: Not Given Atorvastatin Calcium (Atorvastatin 40 Mg Tab) 40 mg PO DAILY [facility] Last Admin: 02/17/24 08:54 Dose: Not Given Carvedilol (Carvedilol 12.5 Mg Tab) 12.5 mg PO BID 6AM 6PM [facility] Last Admin: 02/17/24 15:39 Dose: Not Given Cinacalcet (Cinacalcet Hcl 30 Mg Tab) 30 mg PO DAILY [facility] Last Admin: 02/17/24 08:56 Dose: Not Given Clonidine HCl (Clonidine 0.1 Mg/Patch) 0.1 mg TD EVERY 7TH DAY@2200 [facility] Last Admin: 02/14/24 22:00 Dose: Not Given Docusate Sodium (Docusate Na 100 Mg Cap) 100 mg PO BID [facility] Last Admin: 02/17/24 20:32 Dose: Not Given Enteral Nutritional Formula (Nepro Shake 237 Ml Can) 240 ml PO TID [facility] Last Admin: 02/17/24 20:32 Dose: Not Given Epoetin Presley (Epoetin Presley 10,000 Unit/Ml Vial) 10,000 unit IV EVERY HD [facility] Last Admin: 02/17/24 14:50 Dose: 10,000 unit Ergocalciferol (Drisdol (Vitamin D=Ergocalciferol) 39833 Unit Cap) 50,000 unit PO Q48H [facility] Stop: 02/18/24 09:01 Last Admin: 02/16/24 09:00 Dose: Not Given Heparin Sodium (Porcine) (Heparin 1,000 Unit/Ml Vial) 3,000 unit IV EVERY HD PRN PRN Reason: Prevent HD System Clotting Last Admin: 02/17/24 12:42 Dose: 3,000 unit Hydralazine HCl (Hydralazine Hcl 20 Mg/Ml Vial) 10 mg IV Q6HP PRN PRN Reason: Goal to achieve SBP in comment Last Admin: 02/16/24 08:40 Dose: 10 mg Levetiracetam 500 mg/ Sodium (Chloride) 105 mls @ 420 mls/hr IV Q12H [facility] Last Admin: 02/17/24 21:08 Dose: 105 mls Ceftriaxone Sodium 2,000 mg/ (Sodium Chloride) 100 mls @ 200 mls/hr IV DAILY [facility]; Protocol Last Admin: 02/17/24 10:07 Dose: 100 mls Albumin Human (Albumin 25%) 50 mls @ 100 mls/hr IV EVERY HD [facility] Insulin Glargine (Insulin Glargine 100 Unit/Ml) 18 unit SQ DAILY [facility] Last Admin: 02/17/24 08:56 Dose: Not Given Insulin Human Regular (Insulin Regular (Human) 100 Unit/Ml) 0 unit SQ ACHS [facility]; Protocol Last Admin: 02/17/24 20:32 Dose: Not Given Labetalol HCl (Labetalol 20 Mg/4ml Syringe) 10 mg IV Q6H PRN PRN Reason: SBP>180 Last Admin: 02/15/24 00:40 Dose: 10 mg Mannitol (Mannitol 25% 12.5 Gm/50 Ml Vial) 12.5 gm IV EVERY HD PRN PRN Reason: Titrate to SBP (MUST DEFINE) Nifedipine (Nifedipine Xl 30 Mg Tablet) 30 mg PO BID [facility] Last Admin: 02/17/24 20:32 Dose: Not Given Ondansetron HCl (Ondansetron 4 Mg/2 Ml Vial) 4 mg IV Q6HP PRN PRN Reason: NAUSEA / VOMITING Last Admin: 02/15/24 11:36 Dose: 4 mg Vitamin B Complex/Vit C/Folic Acid (Multivitamins,Therapeut 1 Tab) 1 tab PO DAILY [facility] Last Admin: 02/17/24 08:54 Dose: Not Given Microbiology Results 02/14/24 17:15 Blood - Blood Aerobic Blood Culture - Preliminary No growth in 24 hours. 02/14/24 17:15 Blood - Blood Anaerobic Blood Culture - Preliminary No growth in 24 hours. 02/14/24 16:55 Blood - Blood Aerobic Blood Culture - Preliminary No growth in 24 hours. 02/14/24 16:55 Blood - Blood Anaerobic Blood Culture - Preliminary No growth in 24 hours. Assessment/ Plan: Nephrology No dyspnea No chest pain No acute events overnight Limited IH/ ROS due to mental status Vitals, medications, blood work and imaging reviewed in the chart General: In no apparent distress, Cooperative HEENT: Atraumatic Neck: Supple Respiratory: Clear to auscultation bilaterally, Normal air movement Cardiovascular: No edema, Regular rate/rhythm Gastrointestinal: Soft and benign, Non-distended Musculoskeletal: No clubbing, No contractures Integumentary: No rashes, No cyanosis Neurological: No speech (Minimal) Laboratory Data (last 24 hrs) 02/14/24 02/14/24 02/14/24 17:15 17:15 17:15 WBC 11.20 H Hgb 10.8 L Hct 33.8 L Plt Count 472 H PT 11.9 INR 1.08 APTT 31.1 Sodium 134 L Potassium 3.1 L BUN 13 Creatinine 2.55 H Glucose 223 H Total Bilirubin 0.4 AST 14 L ALT 19 Alkaline Phosphatase 131 H Imagings Data: EXAM DESCRIPTION: CT - Abdomen Pelvis Wo Contrast - 02/14/2024 5:35 pm CLINICAL HISTORY: Abdominal pain. AMS, vomiting COMPARISON: No comparisons TECHNIQUE: CT imaging of the abdomen and pelvis was performed without contrast. Solid organ, bowel and vascular assessment is limited due to lack of IV and oral contrast. All CT scans are performed using dose optimization technique as appropriate and may include automated exposure control or mA/KV adjustment according to patient size. FINDINGS: Mild atelectasis seen in the lingula. The liver, spleen, pancreas, adrenal glands and kidneys are within normal limits for a limited non-contrast examination. No bowel obstruction, free air, free fluid or abscess. Moderate stool throughout the colon. The appendix is normal. Fibroid uterus. The osseous structures are within normal limits. IMPRESSION: No acute intra-abdominal or pelvic findings. A limited non-contrast examination was performed as detailed. EXAM DESCRIPTION: CT - Head Brain Wo Cont - 02/14/2024 5:33 pm CLINICAL HISTORY: AMS Headache, drowsiness COMPARISON: Head Brain Wo Cont dated 01/20/2024; Head Brain Wo Cont dated 10/04/2023 TECHNIQUE: All CT scans are performed using dose optimization technique as appropriate and may include automated exposure control or mA/KV adjustment according to patient size. 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 The paranasal sinuses and mastoids are clear. The calvarium is intact. IMPRESSION: No acute intracranial abnormality. EXAM DESCRIPTION: RAD - Chest Single View - 02/14/2024 5:37 pm CLINICAL HISTORY: AMS, dialysis Chest pain. COMPARISON: Chest Single View dated 01/20/2024; Chest Single View dated 12/09/2023; Chest Single View dated 10/04/2023; Chest Single View dated 09/11/2023 FINDINGS: Portable technique limits examination quality. Mild pulmonary edema. The heart is significantly enlarged. No displaced fractures. IMPRESSION: Mild CHF versus volume overload. Conclusions/Impression: ESRD on HD MWF Proteinuria -HD TIW Hyponatremia, resolved Hypokalemia -Replete prn HTN with CKD/ CHF -Clonidine patch -Continue Atenolol -Continue Nifedipine ER Diastolic CHF, chronic -Low sodium diet -HD with UF DM II with CKD, Polyneuropathy -RISS Anemia in CKD -Retacrit prn CKD MBD -Continue Sensipar -Continue Ergo Hx of poor compliance
[2024-02-18 09:42] LABS: Absolute Monocytes 1.1 K/uL (0.1-1.3)
[2024-02-18 09:52] LABS: Absolute Basophils 0.1 K/uL (0-0.5); Absolute Lymphocytes (CBC) 2.4 K/uL (0.7-4.9); Absolute Neutrophil 12.7 K/uL (1.8-8.0); Basophils % 0.8 % (0-1.3); Hematocrit 40.9 % (36.0-45.0); Hemoglobin 12.6 g/dL (12.0-15.0); Lymphocytes % 14.6 % (15.3-44.8); MCH 26.2 pg (27.0-35.0); MCHC 30.7 g/dL (32.0-36.0); MPV 7.8 fL (7.6-11.3); Monocytes % 6.8 % (3.3-12.3); Neutrophils % 77.8 % (41.7-73.7); Nucleated RBC Absolute Count 0.3 (0-0); Nucleated Red Blood Cells % 1.9 % (0-0); Platelets 540 thou/uL (152-406); RBC Red Blood Cell Count 4.81 M/uL (3.86-4.86); Red Cell Distribution Width 19.2 % (12.1-15.2)
[2024-02-18 10:34] LABS: Anion Gap 21.9 mEq/L (5.0-15.0); Potassium 4.9 mEq/L (3.5-5.1)
[2024-02-18 10:35] LABS: White Blood Cell Scan OK (OK)
[2024-02-18 10:36] LABS: Hypochromasia 1+; Platelet Estimate ADEQ; Polychromasia 1+
[2024-02-18 10:38] LABS: Blood Morphology Comment NOTED (NOT SEEN)
--- NOTE | 2024-02-18 10:54 | P.PN ---
Subjective Date of Service: 02/18/24 Chief Complaint: Altered mental status Subjective: No new changes (remains minimally responsive, does open her eyes on command/voice today.) <Janey Alanlen - Last Filed: 02/18/24 10:49> Date of Service: 02/18/24 <Gt Rosario - Last Filed: 02/18/24 22:30> Review of Systems 10-point ROS is otherwise unremarkable General: Weakness, Malaise, As per HPI Neurological: As per HPI <Thuy Alanaminah Mittal - Last Filed: 02/18/24 10:49> Physical Examination - Vital Signs Temperature: 96.9 F Blood Pressure: 168/78 Pulse: 84 Respirations: 16 Pulse Ox (%): 98 - Physical Exam General: In no apparent distress, Other (thin, minimally responsive) HEENT: Atraumatic, Normocephalic Neck: Supple Respiratory: Normal air movement Cardiovascular: Normal pulses, Regular rate/rhythm Capillary refill: <2 Seconds Gastrointestinal: Soft and benign Musculoskeletal: No clubbing, No swelling Integumentary: Skin breakdown, Other (padded bandage over left lateral lower leg) Neurological: Abnormal strength, Abnormal tone Lymphatics: No axilla or inguinal lymphadenopathy External genitalia: Deferred Rectal: Deferred <Thuy Alany Kyrie - Last Filed: 02/18/24 10:49> Assessment And Plan - Plan Assessment plan Metabolic encephalopathy History of seizures Hypertensive urgency improved History of CVA. Unclear etiology 02/13 CT of the head IMPRESSION: No acute intracranial abnormality. Patient with history of seizures and CVA. Hypertensive encephalopathy versus seizures. Aggressive blood pressure control, patient not tolerating p.o. so we will use clonidine patch, IV hydralazine and IV labetalol as needed. Will consider MRI given history of CVA IV Keppra until patient can tolerate p.o. PRN Hydralazine PT Eval minimally more responsive today (02/18/24) End-stage renal disease on hemodialysis Saturday Nephrology following CT of the abdomen pelvisIMPRESSION: No acute intra-abdominal or pelvic findings.A limited non-contrast examination was performed as detailed. 02/13 chest x-ray IMPRESSION: Mild CHF versus volume overload. Patient has no significant uremia to explain her altered mental status. Nephrology consulted for routine hemodialysis. Hypokalemia improved Hyponatremia improved potassium 3.1->2.8->4.1 - normalized Trend electrolytes replace as needed Leukocytosis worsening UA negative for acute cystitis Trend WBCs, blood culture pending Blood cultures no growth- continued no growth 02/15 Will start empiric ceftriaxone for worsening WBC, WBC and Neutrophils trending down, will continue abx 02/17/24 - pending cultures Type 2 diabetes with hyperglycemia Insulin sliding scale for glucose management. History of hypertension CKD Restart atenolol, nifedipine, clonidine patch ESRD: dialysis yesterday creatinine down from 7.04 to 5.34 Full code DVT heparin Diet renal Disposition process healthcare Discharge Plan: Detention - Code Status/Comfort Care Code Status: Full Code <Janey Alan - Last Filed: 02/18/24 10:49> - Plan Pt seen and examined. I agree with the note by the SHIPPING AND RECEIVING WEIGHER. Ciera f/jin MRI brain. <Gt Rosario - Last Filed: 02/18/24 22:30>
[2024-02-18] MEDS: LORazepam 2 MG/ML VIAL IV ONE (18:53)
--- NOTE | 2024-02-18 20:16 | RAD REPORT ---
EXAM DESCRIPTION: MRI - Brain Wo Cont - 02/18/2024 8:09 pm CLINICAL HISTORY: AMS Headache, drowsiness COMPARISON: Head Brain Wo Cont dated 02/14/2024 TECHNIQUE: Multi-sequence, multiplanar MR imaging of the brain was performed without contrast. FINDINGS: There is significant patient motion present. 8 mm area of restricted diffusion noted left aspect of the nima. 9 mm area of restricted diffusion left centrum ovale white matter. These could be areas of acute infarction. No gross hemorrhage, hydrocephalus or midline shift. IMPRESSION: Highly degraded images due to patient motion. Suspicion for 8 mm left pontine CVA. Also possible 9 mm left periventricular white matter CVA.
--- NOTE | 2024-02-18 20:58 | P.PN ---
Date of Service: 02/18/24 Vital Signs Temp Pulse Resp BP Pulse Ox 97.3 F 93 H 17 172/79 H 98 02/18/24 16:00 02/18/24 16:00 02/18/24 16:00 02/18/24 16:00 02/18/24 16:00 Medications Acetaminophen (Acetaminophen 325 Mg Tablet) 650 mg PO Q4HP PRN PRN Reason: TEMP > 100' F Aspirin (Aspirin Ec 81 Mg Tab) 81 mg PO DAILY [facility] Last Admin: 02/18/24 08:38 Dose: Not Given Atenolol (Atenolol 25 Mg Tab) 25 mg PO BEDTIME [facility] Last Admin: 02/18/24 20:18 Dose: Not Given Atorvastatin Calcium (Atorvastatin 40 Mg Tab) 40 mg PO DAILY [facility] Last Admin: 02/18/24 08:39 Dose: Not Given Cinacalcet (Cinacalcet Hcl 30 Mg Tab) 30 mg PO DAILY [facility] Last Admin: 02/18/24 08:40 Dose: Not Given Clonidine HCl (Clonidine 0.1 Mg/Patch) 0.1 mg TD EVERY 7TH DAY@2200 [facility] Last Admin: 02/14/24 22:00 Dose: Not Given Docusate Sodium (Docusate Na 100 Mg Cap) 100 mg PO BID [facility] Last Admin: 02/18/24 20:17 Dose: Not Given Enteral Nutritional Formula (Nepro Shake 237 Ml Can) 240 ml PO TID [facility] Last Admin: 02/18/24 20:18 Dose: Not Given Epoetin Presley (Epoetin Presley 10,000 Unit/Ml Vial) 10,000 unit IV EVERY HD [facility] Last Admin: 02/17/24 14:50 Dose: 10,000 unit Heparin Sodium (Porcine) (Heparin 1,000 Unit/Ml Vial) 3,000 unit IV EVERY HD PRN PRN Reason: Prevent HD System Clotting Last Admin: 02/17/24 12:42 Dose: 3,000 unit Hydralazine HCl (Hydralazine Hcl 20 Mg/Ml Vial) 10 mg IV Q6HP PRN PRN Reason: Goal to achieve SBP in comment Last Admin: 02/16/24 08:40 Dose: 10 mg Levetiracetam 500 mg/ Sodium (Chloride) 105 mls @ 420 mls/hr IV Q12H [facility] Last Admin: 02/18/24 10:25 Dose: 105 mls Ceftriaxone Sodium 2,000 mg/ (Sodium Chloride) 100 mls @ 200 mls/hr IV DAILY [facility]; Protocol Last Admin: 02/18/24 08:39 Dose: 100 mls Albumin Human (Albumin 25%) 50 mls @ 100 mls/hr IV EVERY HD [facility] Insulin Glargine (Insulin Glargine 100 Unit/Ml) 18 unit SQ DAILY [facility] Last Admin: 02/18/24 08:37 Dose: 18 unit Insulin Human Regular (Insulin Regular (Human) 100 Unit/Ml) 0 unit SQ ACHS [facility]; Protocol Last Admin: 02/18/24 16:23 Dose: Not Given Labetalol HCl (Labetalol 20 Mg/4ml Syringe) 10 mg IV Q6H PRN PRN Reason: SBP>180 Last Admin: 02/15/24 00:40 Dose: 10 mg Mannitol (Mannitol 25% 12.5 Gm/50 Ml Vial) 12.5 gm IV EVERY HD PRN PRN Reason: Titrate to SBP (MUST DEFINE) Nifedipine (Nifedipine Xl 30 Mg Tablet) 30 mg PO BID [facility] Last Admin: 02/18/24 20:18 Dose: Not Given Ondansetron HCl (Ondansetron 4 Mg/2 Ml Vial) 4 mg IV Q6HP PRN PRN Reason: NAUSEA / VOMITING Last Admin: 02/15/24 11:36 Dose: 4 mg Vitamin B Complex/Vit C/Folic Acid (Multivitamins,Therapeut 1 Tab) 1 tab PO DAILY [facility] Last Admin: 02/18/24 08:39 Dose: Not Given Microbiology Results 02/14/24 17:15 Blood - Blood Aerobic Blood Culture - Preliminary No growth in 24 hours. 02/14/24 17:15 Blood - Blood Anaerobic Blood Culture - Preliminary No growth in 24 hours. 02/14/24 16:55 Blood - Blood Aerobic Blood Culture - Preliminary No growth in 24 hours. 02/14/24 16:55 Blood - Blood Anaerobic Blood Culture - Preliminary No growth in 24 hours. Assessment/ Plan: Nephrology No dyspnea No chest pain No acute events overnight Limited IH/ ROS due to mental status Vitals, medications, blood work and imaging reviewed in the chart General: In no apparent distress, Cooperative HEENT: Atraumatic Neck: Supple Respiratory: Clear to auscultation bilaterally, Normal air movement Cardiovascular: No edema, Regular rate/rhythm Gastrointestinal: Soft and benign, Non-distended Musculoskeletal: No clubbing, No contractures Integumentary: No rashes, No cyanosis Neurological: No speech (Minimal). Somnolent Laboratory Data (last 24 hrs) 02/14/24 02/14/24 02/14/24 17:15 17:15 17:15 WBC 11.20 H Hgb 10.8 L Hct 33.8 L Plt Count 472 H PT 11.9 INR 1.08 APTT 31.1 Sodium 134 L Potassium 3.1 L BUN 13 Creatinine 2.55 H Glucose 223 H Total Bilirubin 0.4 AST 14 L ALT 19 Alkaline Phosphatase 131 H Imagings Data: EXAM DESCRIPTION: CT - Abdomen Pelvis Wo Contrast - 02/14/2024 5:35 pm CLINICAL HISTORY: Abdominal pain. AMS, vomiting COMPARISON: No comparisons TECHNIQUE: CT imaging of the abdomen and pelvis was performed without contrast. Solid organ, bowel and vascular assessment is limited due to lack of IV and oral contrast. All CT scans are performed using dose optimization technique as appropriate and may include automated exposure control or mA/KV adjustment according to patient size. FINDINGS: Mild atelectasis seen in the lingula. The liver, spleen, pancreas, adrenal glands and kidneys are within normal limits for a limited non-contrast examination. No bowel obstruction, free air, free fluid or abscess. Moderate stool throughout the colon. The appendix is normal. Fibroid uterus. The osseous structures are within normal limits. IMPRESSION: No acute intra-abdominal or pelvic findings. A limited non-contrast examination was performed as detailed. EXAM DESCRIPTION: CT - Head Brain Wo Cont - 02/14/2024 5:33 pm CLINICAL HISTORY: AMS Headache, drowsiness COMPARISON: Head Brain Wo Cont dated 01/20/2024; Head Brain Wo Cont dated 10/04/2023 TECHNIQUE: All CT scans are performed using dose optimization technique as appropriate and may include automated exposure control or mA/KV adjustment according to patient size. 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 The paranasal sinuses and mastoids are clear. The calvarium is intact. IMPRESSION: No acute intracranial abnormality. EXAM DESCRIPTION: RAD - Chest Single View - 02/14/2024 5:37 pm CLINICAL HISTORY: AMS, dialysis Chest pain. COMPARISON: Chest Single View dated 01/20/2024; Chest Single View dated 12/09/2023; Chest Single View dated 10/04/2023; Chest Single View dated 09/11/2023 FINDINGS: Portable technique limits examination quality. Mild pulmonary edema. The heart is significantly enlarged. No displaced fractures. IMPRESSION: Mild CHF versus volume overload. Conclusions/Impression: ESRD on HD MWF Proteinuria -HD TIW Hyponatremia, resolved Hypokalemia -Replete prn HTN with CKD/ CHF -Clonidine patch -Continue Atenolol -Continue Nifedipine ER -Agree with IV meds due to poor oral intake Diastolic CHF, chronic -Low sodium diet -HD with UF DM II with CKD, Polyneuropathy -RISS Anemia in CKD -Retacrit prn CKD MBD -Continue Sensipar -Continue Ergo Hx of poor compliance
[2024-02-19 08:10] LABS: Absolute Basophils 0.1 K/uL (0-0.5); Absolute Lymphocytes (CBC) 3.1 K/uL (0.7-4.9); Absolute Monocytes 1.4 K/uL (0.1-1.3); Absolute Neutrophil 10.1 K/uL (1.8-8.0); Basophils % 0.6 % (0-1.3); Eosinophils % 0.3 % (0-4.4); Hematocrit 43.5 % (36.0-45.0); Hemoglobin 13.3 g/dL (12.0-15.0); Lymphocytes % 20.8 % (15.3-44.8); MCHC 30.5 g/dL (32.0-36.0); MCV 85.3 fL (80-100); MPV 7.7 fL (7.6-11.3); Monocytes % 9.8 % (3.3-12.3); Neutrophils % 68.5 % (41.7-73.7); Platelets 469 thou/uL (152-406); Red Cell Distribution Width 19.2 % (12.1-15.2)
[2024-02-19 08:13] LABS: Albumin 2.9 g/dL (3.4-5.0); Albumin/Globulin Ratio 0.5 (1.1-1.8); Anion Gap 17.3 mEq/L (5.0-15.0); Bilirubin Total 0.5 mg/dL (0.2-1.0); C-Reactive Protein 62.6 mg/L (<3.00); Globulin 5.4 g/dL (2.3-3.5); Magnesium 2.6 mg/dL (1.6-2.4); Phosphorus 5.8 mg/dL (2.5-4.9); Potassium 4.3 mEq/L (3.5-5.1); Prealbumin 20.3 mg/dL (20-40); Protein, Total 8.3 g/dL (6.4-8.2)
[2024-02-19 09:08] LABS: Differential Total Cells Count 100; Eosinophils 2 % (0-3); Lymphocytes 18 % (15-42); Monocytes 9 % (0-10); Nucleated RBC Absolute Count 0.6 (0-0); Nucleated Red Blood Cells 7 /100WBC; Nucleated Red Blood Cells % 3.8 % (0-0); Platelet Estimate ADEQ; Segmented Neutrophils 70 % (40-80)
[2024-02-19 09:09] LABS: Anisocytosis 1+; Blood Morphology Comment NOTED (NOT SEEN); Hypersegmented Neutrophils PRESENT; Macrocytosis 1+; Polychromasia SLIGHT
--- NOTE | 2024-02-19 16:21 | P.PN ---
Subjective Date of Service: 02/19/24 Chief Complaint: Altered mental status Subjective: Worsening (I could not wake patient this am. Labs stable, respirations normal and unlabored, vital signs without impending problem) Review of Systems 10-point ROS is otherwise unremarkable General: As per HPI Neurological: As per HPI Physical Examination - Vital Signs Temperature: 96.8 F Blood Pressure: 127/65 Pulse: 90 Respirations: 19 Pulse Ox (%): 97 - Physical Exam General: Unresponsive HEENT: Atraumatic, Normocephalic Neck: JVD not distended Respiratory: Normal air movement Cardiovascular: Normal pulses Capillary refill: <2 Seconds Gastrointestinal: Soft and benign Musculoskeletal: No clubbing Integumentary: No rashes Neurological: Normal speech, Normal affect Lymphatics: No axilla or inguinal lymphadenopathy External genitalia: Deferred Rectal: Deferred Assessment And Plan - Plan Assessment plan Metabolic encephalopathy History of seizures Hypertensive urgency improved History of CVA. Unclear etiology 02/13 CT of the head IMPRESSION: No acute intracranial abnormality. Patient with history of seizures and CVA. Hypertensive encephalopathy versus seizures. Aggressive blood pressure control, patient not tolerating p.o. so we will use clonidine patch, IV hydralazine and IV labetalol as needed. Will consider MRI given history of CVA IV Keppra until patient can tolerate p.o. PRN Hydralazine PT Eval minimally more responsive today (02/18/24) MRI last pm 02/18/24-"IMPRESSION: Highly degraded images due to patient motion. Suspicion for 8 mm left pontine CVA. Also possible 9 mm left periventricular white matter CVA." End-stage renal disease on hemodialysis Saturday Nephrology following 02/13 CT of the abdomen pelvis IMPRESSION: No acute intra-abdominal or pelvic findings.A limited non-contrast examination was performed as detailed. 02/13 chest x-ray IMPRESSION: Mild CHF versus volume overload. Patient has no significant uremia to explain her altered mental status. hemodialysis due today 02/19/24. Hypokalemia improved Hyponatremia improved potassium 3.1->2.8->4.1 - normalized Trend electrolytes replace as needed Leukocytosis worsening UA negative for acute cystitis Trend WBCs, blood culture pending Blood cultures no growth- continued no growth 02/15 Will start empiric ceftriaxone for worsening WBC, WBC and Neutrophils trending down, will continue abx started 02/16/24 - pending cultures - prelim negative on 02/19/24 Type 2 diabetes with hyperglycemia Insulin sliding scale for glucose management. History of hypertension CKD Restart atenolol, nifedipine, clonidine patch ESRD: dialysis due today Full code DVT heparin Diet renal Disposition process healthcare Discharge Plan: Retirement - Code Status/Comfort Care Code Status: Full Code
--- NOTE | 2024-02-19 21:03 | P.PN ---
Date of Service: 02/19/24 Vital Signs Temp Pulse Resp BP Pulse Ox 96.8 F 90 19 127/65 97 02/19/24 16:25 02/19/24 16:25 02/19/24 16:25 02/19/24 16:25 02/19/24 16:25 Medications Acetaminophen (Acetaminophen 325 Mg Tablet) 650 mg PO Q4HP PRN PRN Reason: TEMP > 100' F Aspirin (Aspirin Ec 81 Mg Tab) 81 mg PO DAILY [facility] Last Admin: 02/19/24 09:00 Dose: Not Given Atenolol (Atenolol 25 Mg Tab) 25 mg PO BEDTIME [facility] Last Admin: 02/18/24 20:18 Dose: Not Given Atorvastatin Calcium (Atorvastatin 40 Mg Tab) 40 mg PO DAILY [facility] Last Admin: 02/19/24 09:00 Dose: Not Given Cinacalcet (Cinacalcet Hcl 30 Mg Tab) 30 mg PO DAILY [facility] Last Admin: 02/19/24 09:00 Dose: Not Given Clonidine HCl (Clonidine 0.1 Mg/Patch) 0.1 mg TD EVERY 7TH DAY@2200 [facility] Last Admin: 02/14/24 22:00 Dose: Not Given Docusate Sodium (Docusate Na 100 Mg Cap) 100 mg PO BID [facility] Last Admin: 02/19/24 09:00 Dose: Not Given Enteral Nutritional Formula (Nepro Shake 237 Ml Can) 240 ml PO TID [facility] Last Admin: 02/19/24 14:00 Dose: Not Given Epoetin Presley (Epoetin Presley 10,000 Unit/Ml Vial) 10,000 unit IV EVERY HD [facility] Last Admin: 02/19/24 19:45 Dose: 10,000 unit Heparin Sodium (Porcine) (Heparin 1,000 Unit/Ml Vial) 3,000 unit IV EVERY HD PRN PRN Reason: Prevent HD System Clotting Last Admin: 02/19/24 17:42 Dose: 3,000 unit Hydralazine HCl (Hydralazine Hcl 20 Mg/Ml Vial) 10 mg IV Q6HP PRN PRN Reason: Goal to achieve SBP in comment Last Admin: 02/19/24 06:02 Dose: 10 mg Levetiracetam 500 mg/ Sodium (Chloride) 105 mls @ 420 mls/hr IV Q12H [facility] Last Admin: 02/19/24 10:28 Dose: 105 mls Ceftriaxone Sodium 2,000 mg/ (Sodium Chloride) 100 mls @ 200 mls/hr IV DAILY [facility]; Protocol Last Admin: 02/19/24 08:36 Dose: 100 mls Albumin Human (Albumin 25%) 50 mls @ 100 mls/hr IV EVERY HD [facility] Insulin Glargine (Insulin Glargine 100 Unit/Ml) 18 unit SQ DAILY [facility] Last Admin: 02/19/24 08:36 Dose: 18 unit Insulin Human Regular (Insulin Regular (Human) 100 Unit/Ml) 0 unit SQ ACHS [facility]; Protocol Last Admin: 02/19/24 16:30 Dose: Not Given Labetalol HCl (Labetalol 20 Mg/4ml Syringe) 10 mg IV Q6H PRN PRN Reason: SBP>180 Last Admin: 02/15/24 00:40 Dose: 10 mg Mannitol (Mannitol 25% 12.5 Gm/50 Ml Vial) 12.5 gm IV EVERY HD PRN PRN Reason: Titrate to SBP (MUST DEFINE) Nifedipine (Nifedipine Xl 30 Mg Tablet) 30 mg PO BID [facility] Last Admin: 02/19/24 09:00 Dose: Not Given Ondansetron HCl (Ondansetron 4 Mg/2 Ml Vial) 4 mg IV Q6HP PRN PRN Reason: NAUSEA / VOMITING Last Admin: 02/15/24 11:36 Dose: 4 mg Vitamin B Complex/Vit C/Folic Acid (Multivitamins,Therapeut 1 Tab) 1 tab PO DAILY [facility] Last Admin: 02/19/24 09:00 Dose: Not Given Microbiology Results 02/14/24 17:15 Blood - Blood Aerobic Blood Culture - Final No growth in 5 days. 02/14/24 17:15 Blood - Blood Anaerobic Blood Culture - Final No growth in 5 days. 02/14/24 16:55 Blood - Blood Aerobic Blood Culture - Final No growth in 5 days. 02/14/24 16:55 Blood - Blood Anaerobic Blood Culture - Final No growth in 5 days. Assessment/ Plan: Nephrology No dyspnea No chest pain No acute events overnight Limited IH/ ROS due to mental status Vitals, medications, blood work and imaging reviewed in the chart General: In no apparent distress HEENT: Atraumatic Neck: Supple Respiratory: Clear to auscultation bilaterally, Normal air movement Cardiovascular: No edema, Regular rate/rhythm Gastrointestinal: Soft and benign, Non-distended Musculoskeletal: No clubbing, No contractures Integumentary: No rashes, No cyanosis Neurological: No speech. Somnolent Laboratory Data (last 24 hrs) 02/14/24 02/14/24 02/14/24 17:15 17:15 17:15 WBC 11.20 H Hgb 10.8 L Hct 33.8 L Plt Count 472 H PT 11.9 INR 1.08 APTT 31.1 Sodium 134 L Potassium 3.1 L BUN 13 Creatinine 2.55 H Glucose 223 H Total Bilirubin 0.4 AST 14 L ALT 19 Alkaline Phosphatase 131 H Imagings Data: EXAM DESCRIPTION: CT - Abdomen Pelvis Wo Contrast - 02/14/2024 5:35 pm CLINICAL HISTORY: Abdominal pain. AMS, vomiting COMPARISON: No comparisons TECHNIQUE: CT imaging of the abdomen and pelvis was performed without contrast. Solid organ, bowel and vascular assessment is limited due to lack of IV and oral contrast. All CT scans are performed using dose optimization technique as appropriate and may include automated exposure control or mA/KV adjustment according to patient size. FINDINGS: Mild atelectasis seen in the lingula. The liver, spleen, pancreas, adrenal glands and kidneys are within normal limits for a limited non-contrast examination. No bowel obstruction, free air, free fluid or abscess. Moderate stool throughout the colon. The appendix is normal. Fibroid uterus. The osseous structures are within normal limits. IMPRESSION: No acute intra-abdominal or pelvic findings. A limited non-contrast examination was performed as detailed. EXAM DESCRIPTION: CT - Head Brain Wo Cont - 02/14/2024 5:33 pm CLINICAL HISTORY: AMS Headache, drowsiness COMPARISON: Head Brain Wo Cont dated 01/20/2024; Head Brain Wo Cont dated 10/04/2023 TECHNIQUE: All CT scans are performed using dose optimization technique as appropriate and may include automated exposure control or mA/KV adjustment according to patient size. 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 The paranasal sinuses and mastoids are clear. The calvarium is intact. IMPRESSION: No acute intracranial abnormality. EXAM DESCRIPTION: RAD - Chest Single View - 02/14/2024 5:37 pm CLINICAL HISTORY: AMS, dialysis Chest pain. COMPARISON: Chest Single View dated 01/20/2024; Chest Single View dated 12/09/2023; Chest Single View dated 10/04/2023; Chest Single View dated 09/11/2023 FINDINGS: Portable technique limits examination quality. Mild pulmonary edema. The heart is significantly enlarged. No displaced fractures. IMPRESSION: Mild CHF versus volume overload. Conclusions/Impression: ESRD on HD MWF Proteinuria -HD TIW Hyponatremia, resolved Hypokalemia -Replete prn HTN with CKD/ CHF -Clonidine patch -Continue Atenolol -Continue Nifedipine ER -Agree with IV meds due to poor oral intake Diastolic CHF, chronic -Low sodium diet -HD with UF DM II with CKD, Polyneuropathy -RISS Anemia in CKD -Retacrit prn CKD MBD -Continue Sensipar -Continue Ergo Encephalopathy may be due to progressive vascular dementia Hx Seizure -Continue supportive care Hx of poor compliance Case reviewed with Dr. Menchaca
[2024-02-20] MEDS: ACETAMINOPHEN 325 MG TABLET PO PRN (05:15)
[2024-02-20] MEDS: GABAPENTIN 100 MG CAP PO ONE (06:03)
--- NOTE | 2024-02-20 17:25 | P.PN ---
Subjective Date of Service: 02/20/24 Chief Complaint: Altered mental status Physical Examination - Vital Signs Temperature: 98.1 F Blood Pressure: 106/50 Pulse: 84 Respirations: 14 Pulse Ox (%): 97 - Studies Microbiology Data (last 24 hrs): 02/14/24 17:15 Blood - Blood Aerobic Blood Culture - Final No growth in 5 days. 02/14/24 17:15 Blood - Blood Anaerobic Blood Culture - Final No growth in 5 days. 02/14/24 16:55 Blood - Blood Aerobic Blood Culture - Final No growth in 5 days. 02/14/24 16:55 Blood - Blood Anaerobic Blood Culture - Final No growth in 5 days. Assessment And Plan - Current Problems (Diagnosis) (1) Metabolic encephalopathy Current Visit: Yes Status: Acute (2) History of seizures Current Visit: Yes Status: Acute (3) ESRD (end stage renal disease) on dialysis Current Visit: No Status: Acute (4) Type 2 diabetes mellitus with hyperglycemia Current Visit: Yes Status: Acute - Plan Metabolic encephalopathy History of seizures Hypertensive urgency Acute CVA. Cognitive decline Unclear etiology Patient with history of seizures and CVA. Severe hypertension Hypertensive encephalopathy versus seizures. Patient started on atenolol and nifedipine per nephrology Continue clonidine patch, IV hydralazine and IV labetalol as needed. IV Keppra until patient can tolerate p.o. well. MRI of the brain shows possible pontine CVA and cerebral cortex. Neurology consult. Patient with significantly decreased oral intake. Speech therapy input appreciated. She is maintained on pured diet and thin liquids. Dr. Cyr report patient has had issues with taking her oral medications leading to noncompliance. Patient may be a candidate for PEG tube placement for feeding and medications Patient son informed about her poor oral intake and her cognitive decline. Son wants all aggressive measures including PEG tube placement. GI consult to evaluate for PEG tube. End-stage renal disease on hemodialysis Patient has no significant uremia to explain her altered mental status. Nephrology is managing routine hemodialysis. Type 2 diabetes with hyperglycemia Insulin sliding scale for glucose management. Hypokalemia improved Hyponatremia improved potassium 3.1->2.8->4.1 - normalized Trend electrolytes replace as needed Leukocytosis worsening UA negative for acute cystitis Blood cultures: No growth Continue IV Rocephin Full code DVT heparin Diet renal Disposition:[facility]-LTC
--- NOTE | 2024-02-20 20:47 | P.PN ---
Date of Service: 02/20/24 Vital Signs Temp Pulse Resp BP Pulse Ox 98.1 F 84 14 106/50 L 97 02/20/24 17:36 02/20/24 17:36 02/20/24 17:36 02/20/24 17:36 02/20/24 17:36 Medications Acetaminophen (Acetaminophen 325 Mg Tablet) 650 mg PO Q4HP PRN PRN Reason: TEMP > 100' F Aspirin (Aspirin Ec 81 Mg Tab) 81 mg PO DAILY [facility] Last Admin: 02/20/24 09:00 Dose: Not Given Atenolol (Atenolol 25 Mg Tab) 25 mg PO BEDTIME [facility] Last Admin: 02/19/24 21:42 Dose: 25 mg Atorvastatin Calcium (Atorvastatin 40 Mg Tab) 40 mg PO DAILY [facility] Last Admin: 02/20/24 09:35 Dose: 40 mg Cinacalcet (Cinacalcet Hcl 30 Mg Tab) 30 mg PO DAILY [facility] Last Admin: 02/20/24 09:38 Dose: 30 mg Clonidine HCl (Clonidine 0.1 Mg/Patch) 0.1 mg TD EVERY 7TH DAY@2200 [facility] Last Admin: 02/14/24 22:00 Dose: Not Given Docusate Sodium (Docusate Na 100 Mg Cap) 100 mg PO BID [facility] Last Admin: 02/20/24 09:00 Dose: Not Given Enteral Nutritional Formula (Nepro Shake 237 Ml Can) 240 ml PO TID [facility] Last Admin: 02/20/24 14:00 Dose: 240 ml Epoetin Presley (Epoetin Presley 10,000 Unit/Ml Vial) 10,000 unit IV EVERY HD [facility] Last Admin: 02/19/24 19:45 Dose: 10,000 unit Gabapentin (Gabapentin 100 Mg Cap) 200 mg PO BEDTIME [facility] Heparin Sodium (Porcine) (Heparin 1,000 Unit/Ml Vial) 3,000 unit IV EVERY HD PRN PRN Reason: Prevent HD System Clotting Last Admin: 02/19/24 17:42 Dose: 3,000 unit Hydralazine HCl (Hydralazine Hcl 20 Mg/Ml Vial) 10 mg IV Q6HP PRN PRN Reason: Goal to achieve SBP in comment Last Admin: 02/19/24 06:02 Dose: 10 mg Levetiracetam 500 mg/ Sodium (Chloride) 105 mls @ 420 mls/hr IV Q12H [facility] Last Admin: 02/20/24 11:32 Dose: 105 mls Ceftriaxone Sodium 2,000 mg/ (Sodium Chloride) 100 mls @ 200 mls/hr IV DAILY [facility]; Protocol Last Admin: 02/20/24 09:36 Dose: 100 mls Albumin Human (Albumin 25%) 50 mls @ 100 mls/hr IV EVERY HD [facility] Insulin Glargine (Insulin Glargine 100 Unit/Ml) 18 unit SQ DAILY [facility] Last Admin: 02/20/24 09:00 Dose: Not Given Insulin Human Regular (Insulin Regular (Human) 100 Unit/Ml) 0 unit SQ ACHS [facility]; Protocol Last Admin: 02/20/24 16:30 Dose: Not Given Labetalol HCl (Labetalol 20 Mg/4ml Syringe) 10 mg IV Q6H PRN PRN Reason: SBP>180 Last Admin: 02/15/24 00:40 Dose: 10 mg Mannitol (Mannitol 25% 12.5 Gm/50 Ml Vial) 12.5 gm IV EVERY HD PRN PRN Reason: Titrate to SBP (MUST DEFINE) Nifedipine (Nifedipine Xl 30 Mg Tablet) 30 mg PO BID [facility] Last Admin: 02/20/24 09:00 Dose: Not Given Ondansetron HCl (Ondansetron 4 Mg/2 Ml Vial) 4 mg IV Q6HP PRN PRN Reason: NAUSEA / VOMITING Last Admin: 02/15/24 11:36 Dose: 4 mg Vitamin B Complex/Vit C/Folic Acid (Multivitamins,Therapeut 1 Tab) 1 tab PO DAILY [facility] Last Admin: 02/20/24 09:35 Dose: 1 tab Microbiology Results 02/14/24 17:15 Blood - Blood Aerobic Blood Culture - Final No growth in 5 days. 02/14/24 17:15 Blood - Blood Anaerobic Blood Culture - Final No growth in 5 days. 02/14/24 16:55 Blood - Blood Aerobic Blood Culture - Final No growth in 5 days. 02/14/24 16:55 Blood - Blood Anaerobic Blood Culture - Final No growth in 5 days. Assessment/ Plan: Nephrology No dyspnea No chest pain No acute events overnight Limited IH/ ROS due to mental status Vitals, medications, blood work and imaging reviewed in the chart General: In no apparent distress HEENT: Atraumatic Neck: Supple Respiratory: Clear to auscultation bilaterally, Normal air movement Cardiovascular: No edema, Regular rate/rhythm Gastrointestinal: Soft and benign, Non-distended Musculoskeletal: No clubbing, No contractures Integumentary: No rashes, No cyanosis Neurological: No speech. Somnolent Laboratory Data (last 24 hrs) 02/14/24 02/14/24 02/14/24 17:15 17:15 17:15 WBC 11.20 H Hgb 10.8 L Hct 33.8 L Plt Count 472 H PT 11.9 INR 1.08 APTT 31.1 Sodium 134 L Potassium 3.1 L BUN 13 Creatinine 2.55 H Glucose 223 H Total Bilirubin 0.4 AST 14 L ALT 19 Alkaline Phosphatase 131 H Imagings Data: EXAM DESCRIPTION: CT - Abdomen Pelvis Wo Contrast - 02/14/2024 5:35 pm CLINICAL HISTORY: Abdominal pain. AMS, vomiting COMPARISON: No comparisons TECHNIQUE: CT imaging of the abdomen and pelvis was performed without contrast. Solid organ, bowel and vascular assessment is limited due to lack of IV and oral contrast. All CT scans are performed using dose optimization technique as appropriate and may include automated exposure control or mA/KV adjustment according to patient size. FINDINGS: Mild atelectasis seen in the lingula. The liver, spleen, pancreas, adrenal glands and kidneys are within normal limits for a limited non-contrast examination. No bowel obstruction, free air, free fluid or abscess. Moderate stool throughout the colon. The appendix is normal. Fibroid uterus. The osseous structures are within normal limits. IMPRESSION: No acute intra-abdominal or pelvic findings. A limited non-contrast examination was performed as detailed. EXAM DESCRIPTION: CT - Head Brain Wo Cont - 02/14/2024 5:33 pm CLINICAL HISTORY: AMS Headache, drowsiness COMPARISON: Head Brain Wo Cont dated 01/20/2024; Head Brain Wo Cont dated 10/04/2023 TECHNIQUE: All CT scans are performed using dose optimization technique as appropriate and may include automated exposure control or mA/KV adjustment according to patient size. 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 The paranasal sinuses and mastoids are clear. The calvarium is intact. IMPRESSION: No acute intracranial abnormality. EXAM DESCRIPTION: RAD - Chest Single View - 02/14/2024 5:37 pm CLINICAL HISTORY: AMS, dialysis Chest pain. COMPARISON: Chest Single View dated 01/20/2024; Chest Single View dated 12/09/2023; Chest Single View dated 10/04/2023; Chest Single View dated 09/11/2023 FINDINGS: Portable technique limits examination quality. Mild pulmonary edema. The heart is significantly enlarged. No displaced fractures. IMPRESSION: Mild CHF versus volume overload. Conclusions/Impression: ESRD on HD MWF Proteinuria -HD TIW Hyponatremia, resolved Hypokalemia -Replete prn HTN with CKD/ CHF -Clonidine patch -Continue Atenolol -Continue Nifedipine ER -Agree with IV meds due to poor oral intake Diastolic CHF, chronic -Low sodium diet -HD with UF DM II with CKD, Polyneuropathy -RISS Anemia in CKD -Retacrit prn CKD MBD -Continue Sensipar -Continue Ergo Encephalopathy may be due to progressive vascular dementia Hx Seizure -Continue supportive care Hx of poor compliance Patient recently refusing medications at dialysis and the SNF. Case reviewed with Dr. Menchaca Plan for PEG as requested by the son
[2024-02-20] MEDS: GABAPENTIN 100 MG CAP PO SCH (21:28)
[2024-02-21 08:10] LABS: Anion Gap 19.6 mEq/L (5.0-15.0); Potassium 4.6 mEq/L (3.5-5.1)
[2024-02-21 08:13] LABS: Absolute Basophils 0.1 K/uL (0-0.5); Absolute Lymphocytes (CBC) 2.5 K/uL (0.7-4.9); Absolute Monocytes 1.2 K/uL (0.1-1.3); Absolute Neutrophil 17.7 K/uL (1.8-8.0); Basophils % 0.3 % (0-1.3); Eosinophils % 0.1 % (0-4.4); Hematocrit 42.1 % (36.0-45.0); Lymphocytes % 11.5 % (15.3-44.8); MCH 26.3 pg (27.0-35.0); MCHC 30.8 g/dL (32.0-36.0); MCV 85.2 fL (80-100); Monocytes % 5.8 % (3.3-12.3); Neutrophils % 82.3 % (41.7-73.7); Nucleated RBC Absolute Count 0.7 (0-0); Nucleated Red Blood Cells % 3.2 % (0-0); Platelets 264 thou/uL (152-406); RBC Red Blood Cell Count 4.95 M/uL (3.86-4.86); Red Cell Distribution Width 19.8 % (12.1-15.2)
[2024-02-21] MEDS ORDERED: CEFEPIME 1 GM in NA CHLORIDE 0.9% 100 ML IV SCH (09:00)
[2024-02-21] MEDS: NA CHLORIDE 0.9% 1,000 ML IV ONE (09:56)
[2024-02-21] MEDS: CEFEPIME 1 GM in NA CHLORIDE 0.9% 100 ML IV SCH (10:00)
[2024-02-21] MEDS: NA CHLORIDE 0.9% 1,000 ML IV SCH (10:00)
[2024-02-21] MEDS: VANCOMYCIN 1 GM in NA CHLORIDE 0.9% 250 ML IVPB ONE (10:00)
[2024-02-21] MEDS ORDERED: VANCOMYCIN 1 GM in NA CHLORIDE 0.9% 250 ML IVPB ONE (10:00)
--- NOTE | 2024-02-21 10:15 | RAD REPORT ---
EXAM DESCRIPTION: RAD - Chest Single View - 02/21/2024 10:02 am CLINICAL HISTORY: Leukocytosis, low BP, eval for developing PNA Chest pain. COMPARISON: Chest Single View dated 02/14/2024; Chest Single View dated 01/20/2024; Chest Single View dated 12/09/2023; Chest Single View dated 10/04/2023 FINDINGS: Portable technique limits examination quality. The lungs are grossly clear. The heart is normal in size. No displaced fractures.Left-sided axillary stent. IMPRESSION: No acute intrathoracic process suspected.
--- NOTE | 2024-02-21 10:51 | P.PN ---
Nephrology (S) Activated rapid response this AM as pt lethargic and initially not arousing with sternal run. BP has been low, confirmed to be systolic 80s at bedside. Non tachy. Discussed case with Dr. Menchaca, routine HD postponed. Discussions have been had with family/son per reports but it appears they indicated they wanted continued aggressive medical care despite concerns regar ding pt's decline in condition (O) Vitals reviewed in the EMR General: Chronically ill appearing, lethargic/obtunded HEENT: Atraumatic, sclera anicteric, not on O2, reduced lt nasolabial fold Respiratory: Non tachypnec, Normal air movement. No rales anteriorly Cardiovascular: No edema, Regular rate/rhythm mostly Gastrointestinal: Soft and benign, Non-distended Musculoskeletal: Muscle mass loss, Lt forearm AVF Integumentary: No rashes Neurological: After several attempts to arouse, during placement of BP cuff in the Rt arm, pt moans and opened eyes briefly. Non verbal, not following commands Conclusions/Impression: ESRD 2nd to DM/HTN on HD -HD performed last on Sat, metab profile stable, given hypotension and concern for developing sepsis, HD today postponed until she is more stable Malignant HTN with CKD/ CHF now with hypotension -BP meds held, not able to safely take in PO meds as well. IVF bolus ordered, will f/u response. If BP remains low, recommend transfer to ICU and initiation of pressor support if needed. Sepsis, unspecified organism. Sharp rise in leukocytosis, unspecified -Repeat peripheral BCx, check CXR to assess for aspiration PNA or other. Agree with broad spectrum Abx initiation Possible sub-acute left nima CVA on a background of extensive small vessel ischemic disease and concern for developing vascular dementia with possible pseudobulbar affect -Do not see a formal consult from Neuro. Defer anti platelet management to them. No reports of Afib, cont tele monitoring D
--- NOTE | 2024-02-21 15:13 | P.PN ---
Subjective Date of Service: 02/21/24 Chief Complaint: Altered mental status Patient is obtunded today. Rapid response was called on her due to low blood pressure unresponsive. Blood sugar within normal range Systolic blood pressure in the 80s. No recorded fever. No reported diarrhea or vomiting. No witnessed seizures. Physical Examination - Vital Signs Temperature: 97 F Blood Pressure: 84/52 Pulse: 80 Respirations: 20 Pulse Ox (%): 95 - Physical Exam General: Unresponsive HEENT: Mucous membr. moist/pink Neck: Supple, JVD not distended Respiratory: Clear to auscultation bilaterally, Normal air movement Cardiovascular: No edema, Regular rate/rhythm, Normal S1 S2 Gastrointestinal: Soft and benign, Non-distended, No tenderness Musculoskeletal: No swelling, No tenderness Integumentary: No cyanosis Neurological: Other (Unresponsive, patient withdraws all extremities to pain.) Assessment And Plan - Current Problems (Diagnosis) (1) Metabolic encephalopathy Current Visit: Yes Status: Acute (2) History of seizures Current Visit: Yes Status: Acute (3) ESRD (end stage renal disease) on dialysis Current Visit: No Status: Acute (4) Type 2 diabetes mellitus with hyperglycemia Current Visit: Yes Status: Acute - Plan Metabolic encephalopathy History of seizures Hypertensive urgency Acute CVA. Cognitive decline Unclear etiology of AMS. Patient with history of seizures and CVA. MRI is showing possible acute pontine CVA Severe hypertension now with hypotension. No witnessed seizures. Associated leukocytosis with concern for sepsis. Antihypertensives discontinued. Patient started on broad-spectrum antibiotics-cefepime and Vanco She is on IV Keppra for history of seizures Neurology consulted. Speech therapy input appreciated. Pured diet and thin liquids was recommended by speech therapy but patient is now unresponsive and cannot tolerate p.o. Dr. Cyr report patient has had issues with taking her oral medications leading to noncompliance, and also progressively declining cognitive state. Dr. Mccormick reported she had goals of care discussion with the son and aunt. Patient's son came to the bedside, I had a goals of care discussion with him. At this point the son is leaning towards hospice, DNR/DNI. Social service consulted for hospice evaluation. End-stage renal disease on hemodialysis Patient AV fistula is clotted per nephrology Hospice evaluation. Type 2 diabetes with hyperglycemia Insulin sliding scale for glucose management. Hypokalemia improved Hyponatremia improved Son is considering hospice. Leukocytosis worsening UA negative for acute cystitis Blood cultures: No growth Repeat blood culture due to hypotension and leukocytosis. Antibiotics broadened to IV cefepime and vancomycin. Son is considering hospice. DVT heparin Diet renal Disposition:NH-LTC
--- NOTE | 2024-02-21 16:43 | P.PN ---
Date of Service: 02/21/24 Patient's Son want to pursue inpatient hospice and requested DNR/DNI. DNR/DNI ordered. patient financial services manager is assisting with arrangement for inpatient hospice.
[2024-02-21 21:45] VITALS: TEMP 96.8
[2024-02-21 22:16] VITALS: O2SAT 98
--- NOTE | 2024-02-22 04:58 | P.DS ---
Discharge Date: 02/22/24 Disposition: Discharge Condition: Reason for Admission: Altered mental status Brief History of Present Illness: 63-year-old woman with a history of end-stage renal disease on hemodialysis, seizure disorders, diabetes mellitus [facility] due to altered mental status. According to report, symptoms have been present for about 3 days, no reported noncompliance with hemodialysis, no reported seizure activity. Patient was altered and could not provide any history in the ED. Blood work in the ED has been unremarkable, except mild leukocytosis. UA does not suggest UTI, head CT is negative. Noted severely elevated blood pressure with systolic in the 200s. Patient given a dose of hydralazine, she vomited once in the ED. Patient is hospitalized for further management. Hospital Course: Patient MRI revealed a pontine infarct. Patient was neurologically not responding well. Patient was on antiepileptic. Patient was difficult to arouse and not really improving. After discussion with nephrology and hospitalist decision was made to proceed with hospice care. However, the morning before patient was going to be on hospice patient peacefully. Patient was pronounced at 354. Home Medications: Atorvastatin Calcium 40 mg PO DAILY 10/05/23 Calcium Acetate 3 cap PO DAILY 10/05/23 carvediloL [Coreg*] 12.5 mg PO BID 6AM 6PM tab 10/09/23 Aspirin [Aspirin EC 81 MG] 1 tab PO DAILY 01/24/24 cloNIDine HCL [Clonidine HCl] 1 tab PO BID 01/24/24 Acetaminophen [Tylenol] 650 mg PO Q6H PRN 02/15/24 Docusate Sodium 100 mg PO BID 02/15/24 Hydralazine [Apresoline*] 50 mg PO DAILY 02/15/24 Insulin Glargine,Hum.rec.anlog [Lantus Solostar] 5 unit SQ BEDTIME 02/15/24 Insulin Lispro See Protocol SQ ACHS 02/15/24 Olmesartan Medoxomil 40 mg PO DAILY 02/15/24 Ondansetron [Zofran] 4 mg PO Q6H PRN 02/15/24 Sennosides [Senna] 2 tab PO DAILY PRN 02/15/24 levETIRAcetam [Levetiracetam] 5 ml PO DAILY 02/15/24 Physician Discharge Instructions: Body was released to the home. Followup: NONE,NONE [Primary Care Provider] - Time spent managing pt's care (in minutes): 15
[2024-02-22 05:16] VITALS: BP 86/51
[2024-02-24] MEDS ORDERED: VANCOMYCIN 500 MG in NA CHLORIDE 0.9% 100 ML IVPB SCH (18:00)
== END 2024-02-22 09:02 | disposition expired | DRG 64 ==
LOC: ER 16:09 → ERHOLD 19:48 → 4TH 20:24 → OBSVTOIN 02-16 14:50
PROVIDERS: ADMIT Internal Medicine; ATTEND Hospitalist
PROC: 5A1D70Z Performance of Urinary Filtration, Intermittent, Less than 6 Hours Per Day (ICD-10-PCS; principal; 2024-02-17)
DX: I63.9 Cerebral infarction, unspecified (principal); A41.9 Sepsis, unspecified organism; N18.6 End stage renal disease; G92.8 Other toxic encephalopathy; I13.2 Hypertensive heart and chronic kidney disease with heart failure and with stage 5 chronic kidney disease, or end stage renal disease; I50.32 Chronic diastolic (congestive) heart failure; E87.1 Hypo-osmolality and hyponatremia; E11.22 Type 2 diabetes mellitus with diabetic chronic kidney disease; E11.42 Type 2 diabetes mellitus with diabetic polyneuropathy; E11.65 Type 2 diabetes mellitus with hyperglycemia; D63.1 Anemia in chronic kidney disease; E87.6 Hypokalemia; I16.0 Hypertensive urgency; D72.829 Elevated white blood cell count, unspecified; F01.50 Vascular dementia, unspecified severity, without behavioral disturbance, psychotic disturbance, mood disturbance, and anxiety; Z66 Do not resuscitate; Z99.2 Dependence on renal dialysis; Z79.4 Long term (current) use of insulin; Z79.82 Long term (current) use of aspirin; Z79.02 Long term (current) use of antithrombotics/antiplatelets; Z79.899 Other long term (current) drug therapy; Z91.148 Patient's other noncompliance with medication regimen for other reason
CPT/HCPCS: 36415; 70450; 70551; 71045; 74176; 80048; 80053; 81001; 82533; 82947; 83605; 83735; 84100; 84134; 84443; 85025; 85610; 85730; 86140; 86706; 87040; 87205; 87340; 90935; 92610; 93005; 94760; 97161; 99285; G0378; J0360; J0696; J1644; J1815; J1953; J2405; J2550; J3480; J7030; Q4081